=== PATIENT | female | born 1950 | race Caucasian/White ===

== ENCOUNTER → 2021-02-11 | Outpatient (REF) | payer MEDICARE, MEDICAID, SELFPAY ==
[2021-02-11 08:43] LABS: Cholesterol 178 mg/dL (200); High Density Lipoprotein 60 mg/dL; Triglycerides 54 mg/dL; Very Low Density Lipoprotein 11 mg/dL (5-40)
== END ==
LOC: OLS.SWAL
PROVIDERS: Visit Provider Internal Medicine
DX: E78.00 Pure hypercholesterolemia, unspecified (principal)
CPT/HCPCS: 36415; 80061

== ENCOUNTER → 2021-04-20 | Outpatient (REF) | payer MEDICARE, MEDICAID, SELFPAY ==
[2021-04-20 09:33] LABS: AST(SGOT) 13 U/L (15-37); Alanine Aminotransfer ALT/SGPT 15 U/L (13-56); Albumin, Serum 2.9 g/dL (3.2-5.0); Alkaline Phosphatase 67 U/L (45-117); Bilirubin, Direct < 0.05 mg/dL (0.00-0.30); Cholesterol 139 mg/dL (200); Globulin 2.9 g/dL (2.2-4.2); High Density Lipoprotein 54 mg/dL; Protein, Total 5.8 g/dL (6.4-8.2); Triglycerides 91 mg/dL; Very Low Density Lipoprotein 18 mg/dL (5-40)
== END | disposition home or self-care (01) ==
LOC: OLS.SWAL 04:00
PROVIDERS: Referring Provider Internal Medicine; Visit Provider Internal Medicine
DX: E78.5 Hyperlipidemia, unspecified (principal)
CPT/HCPCS: 36415; 80061; 80076

== ENCOUNTER → 2021-07-29 | Outpatient (REF) | payer MEDICARE, MEDICAID, SELFPAY ==
[2021-07-29 08:18] LABS: Absolute Lymphocyte Count 3.13 X10^3/uL (0.83-4.51); Absolute Neutrophil Count 2.1 X10^3/uL (2.0-7.7); Basophil# 0.05 X10^3/uL; Basophil% 0.8 % (0-1); Eosinophil# 0.35 X10^3/uL; Eosinophils% 5.5 % (0-5); Hematocrit 35.8 % (37-47); Hemoglobin 11.1 g/dL (12.0-15.0); Lymphocyte # 3.13 X10^3/ul (0.83-4.51); Lymphocyte % 49.6 % (19-41); Mean Corpuscular Hgb 31.7 pg (27.0-32.0); Mean Corpuscular Volume 102.3 fL (81-99); Mean Platelet Vol. 9.8 fl (6.2-12.0); Monocyte# 0.69 X10^3/uL; Monocyte% 10.9 % (0-10); NRBC Flagged by Analyzer 0 % (0-5); Neutrophil # 2.07 X10^3/uL (2.7-7.7); Neutrophil % 32.9 % (47-70); Platelet Count 261 K/mm3 (150-450); RBC Distribution Width CV 11.7 % (11.6-14.6); RBC Distribution Width SD 44.4 fl (35.1-43.9); White Blood Count 6.3 K/mm3 (4.4-11.0)
[2021-07-29 08:27] LABS: Anion Gap 3 (5-15); BUN 5 mg/dL (7-18); BUN/Creat Ratio 6.5 RATIO (10-20); Calcium,Total 8.6 mg/dL (8.5-10.1); Chloride 107 mmol/L (98-107); Creatinine, Serum 0.77 mg/dL (0.55-1.02); EST Glomerular Filtration Rate 79 mL/min (>60); Est Glom Filt Rate - Afr Amer 96 mL/min (>60); Glucose 78 mg/dL (74-106); Potassium 4.1 mmol/L (3.5-5.1); Sodium Level 143 mmol/L (136-145)
== END | disposition home or self-care (01) ==
LOC: OLS.SWAL 05:00
PROVIDERS: Visit Provider Internal Medicine
DX: G30.9 Alzheimer's disease, unspecified (principal); E55.9 Vitamin D deficiency, unspecified; E78.00 Pure hypercholesterolemia, unspecified
CPT/HCPCS: 36415; 80048; 83036; 85025

== ENCOUNTER → 2021-10-05 | Outpatient (REF) | payer MEDICARE, MEDICAID, SELFPAY ==
[2021-10-05 07:30] LABS: Bacteria 0 SEEN /hpf (None Seen); Mucous, Urine 0 SEEN /hpf (<or=2+)
[2021-10-05 08:27] LABS: Color, Urine Yellow (Yellow); Glucose, Dipstick Normal (Normal); Ketone-Dipstick 5 mg/dl (Negative); Leukocyte Esterase-Dipstick 500 /ul (Negative); Nitrite-Dipstick Negative (Negative); Occult Blood-Urine 10 /ul (Negative); Protein-Dipstick 30 mg/dl (Negative); Urine Bilirubin Dipstick Negative (Negative); Urine Clarity Sl Cldy (Clear); Urine Urobilinogen Normal (Normal)
[2021-10-05 08:29] LABS: Calcium Oxalate Crystals Ur 2+ /hpf (<or=2+); Red Blood Cells-Urine 0-5 SEEN /hpf (0-5); Squamous Epithelial Cells - UA 0-5 SEEN /hpf (5-10); White Blood Cells 25-50 SEEN /hpf (0-5)
== END | disposition home or self-care (01) ==
LOC: OLS.SWAL 05:00
PROVIDERS: Visit Provider Internal Medicine
DX: N39.0 Urinary tract infection, site not specified (principal)
CPT/HCPCS: 81001; 87086; 87088

== ENCOUNTER 2021-10-07 18:46 | Emergency (ER) | payer MEDICARE, MEDICAID, SELFPAY ==
[2021-10-07 18:47] VITALS: BP 107/64; PULSE 73; RESP 15; TEMP 36.8; O2SAT 93; BMI 21.2
[2021-10-07 18:51] VITALS: O2SAT 93
--- NOTE | 2021-10-07 19:12 | CT_ITS ---
EXAMINATION : Head CT w/out contrast HISTORY : fall COMPARISON : None. TECHNIQUE : Multiple contiguous axial images were obtained from the skull base to the vertex without intravenous contrast. A radiation dose optimization technique was used for this scan. FINDINGS : There is no evidence for acute intracranial hemorrhage, mass effect, or midline shift. There is no extra-axial fluid collection. There are periventricular white matter changes consistent with chronic microvascular ischemic disease. There is sulcal widening and ventricular enlargement consistent with cerebral atrophy. There is normal coleman-white differentiation, without CT evidence of acute ischemia or infarct. The skull base and calvarium are unremarkable. The orbits are unremarkable. The paranasal sinuses are clear. The mastoid air cells are well-aerated. The soft tissues are unremarkable. CT/Brain/Head without Contrast IMPRESSION: No acute intracranial abnormality. Chronic involutional and ischemic changes of the brain. Electronically Signed: Jackson Garcia MD at 19:58 EDT ,
--- NOTE | 2021-10-07 19:12 | CT_ITS ---
INDICATION: fall EXAMINATION: CT Spine Cervical W/O Contrast Injection TECHNIQUE: Helically acquired images were obtained of the cervical spine. 2D reformatted images were reviewed. A radiation dose optimization technique was used for this scan. IV Contrast dosage and agent: None. COMPARISON: None. FINDINGS: VERTEBRAE: No fracture or traumatic subluxation. No discrete lytic or blastic abnormality. Normal alignment. Normal craniocervical junction and cervicothoracic junction. DISCS and SPINAL CANAL: Moderate multilevel degenerative disc disease and spondylosis. No critical stenosis. NECK SOFT TISSUES: No prevertebral soft tissue swelling. There is no cervical adenopathy. LUNG APICES: Clear. CT/Spine Cervical without Contras IMPRESSION: No evidence of acute cervical spinal fracture or spondylolisthesis. Moderate multilevel degenerative disc disease and spondylosis. Electronically Signed: Jackson Garcia MD at 19:58 EDT ,
--- NOTE | 2021-10-07 19:13 | EKG12_ITS ---
Test Reason : DYSRHYTHMIA Blood Pressure : / mmHG Vent. Rate : 070 BPM Atrial Rate : 070 BPM P-R Int : 118 ms QRS Dur : 074 ms QT Int : 418 ms P-R-T Axes : 048 -06 039 degrees QTc Int : 451 ms Normal sinus rhythm Nonspecific T wave abnormality Abnormal ECG Confirmed by SPRING PANDA, RIKY ([id number]), editor house organ RON OLIVEROS ([id number]) on 10/08/2021 2:22:00 PM Referred By: KAEL Confirmed By:RIKY LONDONO MD
--- NOTE | 2021-10-07 19:16 | EX.ED.DYSGE1 ---
HPI History of Present Illness Chief Complaint: Fall Informant: patient and EMS Onset/Context/Timing Onset: Today Narrative Narrative: Patient brought in via EMS after a fall at the F. She was found lying on the floor, unwitnessed fall. She is a history of Alzheimer's. They state that she is not quite as alert as normal. She has had multiple falls recently. At this time patient is able to tell me that she fell. She does not not remember why she fell. She is complaining of head, neck, left hip pain. [facility] Medical History Alzheimer's dementia Anxiety Asthma High cholesterol Allergy/AdvReac Type Severity Reaction Status Date / Time codeine Allergy Upset Verified 10/07/21 18:50 Stomach Social History Smoking Status: Never smoker ROS ROS ED ROS Narrative Review of systems limited by history of dementia. Patient does report pain in her head, neck, left hip. Review of Systems ROS Unobtainable: due to mental status EXAM Physical Exam Const Vital Signs: 10/07/21 18:47 10/07/21 18:51 Temperature 98.3 F Temperature Source Temporal Pulse Rate 73 Respiratory Rate 15 Respiratory Effort Normal Non-Labored Respiratory Depth Normal Respiratory Pattern Normal Blood Pressure 107/64 Blood Pressure Mean 78 Pulse Ox 93 93 Oxygen Delivery Method Room Air Room Air Positive well nourished and well developed General Appearance ED: well developed HEENT Reports moist mucous membranes HEENT Narrative: Old appearing ecchymosis to the left forehead. Eyes EOMs intact bilaterally Neck no lymphadenopathy Chest Wall inspection of chest normal and palpation of chest normal Resp normal respiratory effort and clear to auscultation bilaterally Cardio regular rate and regular rhythm GI normal to inspection, nondistended, normoactive bowel sounds and non-tender Palpation: soft Extremity Extremity Narrative: Equal leg lengths bilaterally. Ecchymosis noted over the left anterior thigh. No bony tenderness on palpation. Neuro Neuro Narrative: ANO x2. History of Alzheimer's. Skin Skin Narrative: Ecchymoses as above. 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 EKG obtained. CT scan of the head and C-spine ordered. Portable chest x-ray as well as pelvis and left hip x-rays obtained. Lab Data Attestation: I reviewed the patient's lab results. Labs: Laboratory Results - last 24 hr 10/07/21 10/07/21 10/07/21 19:30 19:30 20:08 WBC 8.1 RBC 3.47 L Hgb 11.5 L Hct 35.6 L MCV 102.6 H MCH 33.1 H MCHC 32.3 RDW Std Deviation 48.8 H RDW Coeff of Krystal 12.9 Plt Count 219 MPV 9.8 Immature Gran % (Auto) 0.200 Neut % (Auto) 63.2 Lymph % (Auto) 22.8 Garrard % (Auto) 10.0 Eos % (Auto) 3.4 Baso % (Auto) 0.4 Absolute Neuts (auto) 5.1 Absolute Lymphs (auto) 1.85 Nucleated RBC % 0 Sodium 140 Potassium 3.6 Chloride 104 Carbon Dioxide 29.0 Anion Gap 7 BUN 8 Creatinine 0.85 Estim Creat Clear Calc 44.24 Est GFR (MDRD) Af Amer 86 Est GFR (MDRD) Non-Af 71 BUN/Creatinine Ratio 9.5 L Glucose 128 H Calcium 8.6 Urine Color Yellow Urine Clarity Clear Urine pH 6.0 Ur Specific Reading 1.010 Urine Protein Negative Urine Glucose (UA) Normal Urine Ketones Negative Urine Occult Blood Negative Urine Nitrite Negative Urine Bilirubin Negative Urine Urobilinogen Normal Ur Leukocyte Esterase Negative Urine RBC 0 SEEN Urine WBC 0 SEEN Ur Squamous Epith Cells 0 SEEN Urine Bacteria 0 SEEN Urine Mucus 0 SEEN Radiography Diagnostic Testing: Clinical Impression(s) from Imaging Studies Brain CT 10/07/21 19:12 IMPRESSION: No acute intracranial abnormality. Chronic involutional and ischemic changes of the brain. Electronically Signed: Jackson Garcia MD at 19:58 EDT , Cervical Spine CT 10/07/21 19:12 IMPRESSION: No evidence of acute cervical spinal fracture or spondylolisthesis. Moderate multilevel degenerative disc disease and spondylosis. Electronically Signed: Jackson Garcia MD at 19:58 EDT , Chest X-Ray 10/07/21 19:44 IMPRESSION: No acute radiographic abnormalities. Electronically Signed: Jackson Garcia MD at 20:21 EDT , Hip/Pelvis X-Ray 10/07/21 19:44 IMPRESSION: No acute findings. Electronically Signed: Ludwin Felipe MD at 20:01 EDT , EKG Initial EKG: Attestation: I personally reviewed and interpreted this EKG as follows: Interpretation: Sinus Rhythm (Sinus at 70 with nonspecific T wave flattening. No acute ST change.) Treatment and Re-Evaluation Narrative: Patient's lab work is unremarkable. Urinalysis obtained via straight cath shows no acute infection. CT scan of the head shows no acute findings. CT of the C-spine shows no fracture. C-collar is removed. Chest x-ray per my interpretation reveals no acute findings. X-ray of the pelvis and hip reveals no obvious fracture. Radiology interpretation is reviewed on both images and concurs. At this time I have no significant findings to explain the patient's reported increased falls. Nursing staff spoke with Dewey Perez. This may just be a progression of her Alzheimer's. At this time I have nothing to admit her to the hospital for and she will be discharged back to [facility]. Discharge Plan Triage Chief Complaint: Fall ED Provider: Laura Malave Dx/Rx/DC Orders Clinical Impression: Fall Instructions: ED Fall with Uncertain Cause Primary Care Provider: Claudia Anderson Referrals: Claudia Anderson MD [Primary Care Provider] - 3-5 Days Disposition Disposition: Care Home Facility
[2021-10-07 19:38] LABS: Absolute Lymphocyte Count 1.85 X10^3/uL (0.83-4.51); Absolute Neutrophil Count 5.1 X10^3/uL (2.0-7.7); Basophil# 0.03 X10^3/uL; Basophil% 0.4 % (0-1); Eosinophil# 0.28 X10^3/uL; Eosinophils% 3.4 % (0-5); Hematocrit 35.6 % (37-47); Hemoglobin 11.5 g/dL (12.0-15.0); Lymphocyte # 1.85 X10^3/ul (0.83-4.51); Lymphocyte % 22.8 % (19-41); Mean Corp Hgb Conc 32.3 g/dL (32-36); Mean Corpuscular Hgb 33.1 pg (27.0-32.0); Mean Corpuscular Volume 102.6 fL (81-99); Mean Platelet Vol. 9.8 fl (6.2-12.0); Monocyte# 0.81 X10^3/uL; NRBC Flagged by Analyzer 0 % (0-5); Neutrophil # 5.13 X10^3/uL (2.7-7.7); Neutrophil % 63.2 % (47-70); Platelet Count 219 K/mm3 (150-450); RBC Distribution Width CV 12.9 % (11.6-14.6); RBC Distribution Width SD 48.8 fl (35.1-43.9); Red Blood Count 3.47 M/mm3 (4.2-5.4); White Blood Count 8.1 K/mm3 (4.4-11.0)
--- NOTE | 2021-10-07 19:44 | RAD_ITS ---
INDICATION: fall EXAMINATION/TECHNIQUE: X-RAY - XR Chest 1 View COMPARISON: None. FINDINGS: The lungs are clear. The cardiomediastinal silhouette is unremarkable. No pleural effusion or pneumothorax. Degenerative changes of the thoracic spine. RAD/Chest 1 View (Portable) IMPRESSION: No acute radiographic abnormalities. Electronically Signed: Jackson Garcia MD at 20:21 EDT ,
--- NOTE | 2021-10-07 19:44 | RAD_ITS ---
STUDY: X-RAY - PELVIS AND LEFT HIP REASON FOR EXAM: Female, 71 years old. Technologist Notes PT WAS FOUND LAYING ON THE FLOOR. UNKNOWN FOR HOW LONG. PT C/O NECK AND LEFT HIP PAIN. ECF STATES PT IS MORE LETHARGIC THAN NORMAL AND HAS HAD MULTPLE FALLS OVER THE LAST FEW DAYS fall TECHNIQUE: XR Hip Unilateral with Pelvis when performed; 2-3 Views COMPARISON: None. FINDINGS: There is a non-specific bowel gas pattern. Normal visualized soft tissue structures. There are degenerative changes of the lumbar spine. Normal bilateral iliac wings, sacroiliac joints and visualized sacrum. Normal bilateral superior and inferior pubic rami. Normal pubic symphysis. Normal bilateral ischial tuberosities. Normal visualized femoral head. Normal acetabulum. Normal hip joint. RAD/HIP, UNI W/ Pelvis 2-3 Views IMPRESSION: No acute findings. Electronically Signed: Ludwin Felipe MD at 20:01 EDT ,
[2021-10-07 19:50] LABS: BUN 8 mg/dL (7-18); BUN/Creat Ratio 9.5 RATIO (10-20); Calcium,Total 8.6 mg/dL (8.5-10.1); Chloride 104 mmol/L (98-107); Creatinine, Serum 0.85 mg/dL (0.55-1.02); EST Glomerular Filtration Rate 71 mL/min (>60); Est Glom Filt Rate - Afr Amer 86 mL/min (>60); Estimated Creatinine Clearance 44.24 ml/min; Glucose 128 mg/dL (74-106); Potassium 3.6 mmol/L (3.5-5.1); Sodium Level 140 mmol/L (136-145)
[2021-10-07 19:51] LABS: Anion Gap 7 (5-15)
[2021-10-07 20:15] LABS: Bacteria 0 SEEN /hpf (None Seen); Mucous, Urine 0 SEEN /hpf (<or=2+); Red Blood Cells-Urine 0 SEEN /hpf (0-5); Squamous Epithelial Cells - UA 0 SEEN /hpf (5-10); White Blood Cells 0 SEEN /hpf (0-5)
[2021-10-07 20:43] LABS: Color, Urine Yellow (Yellow); Glucose, Dipstick Normal (Normal); Ketone-Dipstick Negative (Negative); Leukocyte Esterase-Dipstick Negative /ul (Negative); Nitrite-Dipstick Negative (Negative); Occult Blood-Urine Negative /ul (Negative); Protein-Dipstick Negative (Negative); Urine Bilirubin Dipstick Negative (Negative); Urine Clarity Clear (Clear); Urine Urobilinogen Normal (Normal)
[2021-10-07 21:54] VITALS: BP 127/67; PULSE 78; RESP 18; O2SAT 98
--- NOTE | 2021-10-07 22:09 | ED.RN ---
NURSE TO NURSE GIVEN TO RAI AT [facility]
[2021-10-07 22:11] VITALS: BP 119/71; PULSE 81; RESP 14; O2SAT 97
[2021-10-07 23:16] VITALS: BP 124/71; PULSE 78; RESP 16; O2SAT 98
[2021-10-12 20:01] LABS: Lamotrigine (Lamictal) Level 3.7 ug/mL (2.0-20.0)
== END 2021-10-08 00:08 | disposition skilled nursing facility (03) ==
PROVIDERS: Emergency Provider Emergency Medicine; PCP Internal Medicine; Visit Provider Emergency Medicine
DX: G30.9 Alzheimer's disease, unspecified (principal); E78.00 Pure hypercholesterolemia, unspecified; R51.9 Headache, unspecified; M25.552 Pain in left hip; M54.2 Cervicalgia; W19.XXXA Unspecified fall, initial encounter; Y92.129 Unspecified place in nursing home as the place of occurrence of the external cause
CPT/HCPCS: 70450; 71045; 72125; 73502; 80048; 81001; 82542; 85025; 93005; 99285; A4216

== ENCOUNTER 2021-10-10 01:03 | Emergency (ER) | payer MEDICARE, MEDICAID, SELFPAY ==
[2021-10-10 01:04] VITALS: BP 95/66; PULSE 61; RESP 12; TEMP 36.2; O2SAT 96; BMI 19.0
[2021-10-10 01:13] VITALS: O2SAT 98
--- NOTE | 2021-10-10 02:16 | RAD_ITS ---
INDICATION: pain EXAMINATION/TECHNIQUE: X-RAY - RIGHT XR Hip Unilateral with Pelvis when performed; 2-3 Views 3 VIEWS COMPARISON: 10/07/2021. FINDINGS: SOFT TISSUES: No soft tissue swelling or gas. No radiopaque foreign body. BONES/JOINTS: No acute fracture or subluxation.. Normal alignment. Degenerative changes visualized spine. Preservation of the joint space.. No sclerotic or destructive changes observed. RAD/HIP, UNI W/ Pelvis 2-3 Views IMPRESSION: No acute fracture or dislocation. Electronically Signed: Jeramie Carter MD at 3:18 EDT ,
--- NOTE | 2021-10-10 02:30 | CT_ITS ---
EXAM: CT HEAD WITHOUT INTRAVENOUS CONTRAST CLINICAL INDICATION: injury TECHNIQUE: Multiple axial images were obtained of the head without intravenous contrast. This CT exam was performed using one or more of the following dose reduction techniques: automated exposure control, adjustment of the mA and/or kV according to patient size, and/or use of iterative reconstruction technique. This report was created using [employer] report generation technology. COMPARISON: 10/07/2021 FINDINGS: BRAIN AND EXTRA-AXIAL SPACES: Ventricular system and cortical sulci are mildly enlarged in size. There is stable hypoattenuation in the periventricular white matter. No intra- or extra-axial hemorrhage. No evidence of acute infarct. No intracranial mass or mass effect. There is preservation of the valera/white matter interface. Posterior fossa structures are unremarkable. Basal cisterns are patent. BONES/JOINTS: Unremarkable. No discrete lytic or blastic abnormalities. SINUSES: Unremarkable as visualized. Clear. MASTOID AIR CELLS: Unremarkable. Clear. ORBITS: Visualized globes, extraocular muscles, optic nerves and retrobulbar fat appear unremarkable. CT/Brain/Head without Contrast IMPRESSION: 1. No acute intracranial abnormality. There is been no change in the reference exam. 2. Stable underlying senescent changes small vessel ischemia. Electronically Signed: Kushal Medina MD at 2:47 EDT ,
--- NOTE | 2021-10-10 02:30 | CT_ITS ---
EXAM: CT CERVICAL SPINE WITHOUT INTRAVENOUS CONTRAST CLINICAL INDICATION: injury TECHNIQUE: Helically acquired images were obtained of the cervical spine without intravenous contrast. 2D reformatted images were reviewed. This CT exam was performed using one or more of the following dose reduction techniques: automated exposure control, adjustment of the mA and/or kV according to patient size, and/or use of iterative reconstruction technique. This report was created using [employer] report generation technology. COMPARISON: None. FINDINGS: VERTEBRAE: Unremarkable. No fracture. No traumatic subluxation. No discrete lytic or blastic abnormality. Normal alignment. Normal craniocervical junction and cervicothoracic junction. DISCS/SPINAL CANAL/NEURAL FORAMINA: There is left bony neural neural foraminal stenosis at Narrowing at C4-5 due to a degenerative disc bulge and bony hypertrophy. There is disc space narrowing at C4-5 C5-6. There is right bony neural foraminal narrowing at C5-6. SOFT TISSUES: Unremarkable. No prevertebral soft tissue swelling. LYMPH NODES: Unremarkable. No cervical adenopathy. LUNG APICES: Unremarkable as visualized. Clear. CT/Spine Cervical without Contras IMPRESSION: 1. There is left bony neural neural foraminal stenosis at Narrowing at C4-5 due to a degenerative disc bulge and bony hypertrophy. 2. No acute osseous abnormality of the cervical spine. There are degenerative changes with disc space narrowing and bony neural foraminal narrowing. Electronically Signed: Kushal Medina MD at 2:51 EDT ,
--- NOTE | 2021-10-10 02:50 | RAD_ITS ---
INDICATION: pain EXAMINATION/TECHNIQUE: X-RAY - XR Spine Thoracic 3 Views 3 VIEWS COMPARISON: None. FINDINGS: SOFT TISSUES: No soft tissue swelling or gas. No radiopaque foreign body. BONES/JOINTS: No acute fracture or subluxation.. Normal alignment. Preservation of the joint space.. No sclerotic or destructive changes observed. RAD/Thoracic Spine 3 Views IMPRESSION: No acute fracture or dislocation. Electronically Signed: Jeramie Carter MD at 3:20 EDT ,
--- NOTE | 2021-10-10 03:33 | EX.ED.DYSGE1 ---
HPI History of Present Illness Chief Complaint: Fall Narrative Narrative: Patient is a 71-year-old female with past medical history of dementia sent from the long-term secondary to fall. half-way states patient is at her baseline mental status but with the fall there is concern for underlying head trauma and therefore patient was sent in for evaluation. Patient her dementia as she cannot offer any further history [facility] Medical History Alzheimer's dementia Anxiety Asthma High cholesterol Allergy/AdvReac Type Severity Reaction Status Date / Time codeine Allergy Upset Verified 10/10/21 01:09 Stomach Social History Smoking Status: Never smoker ROS ROS ED ROS Narrative Please note review of systems may be unreliable secondary to patient's history of dementia Constitutional Constitutional ED: Denies chills or fever(s) ENT ENT ED: Denies sore throat Cardiovascular Cardiovascular: Denies chest pain Respiratory/Chest Respiratory/Chest: Denies cough or dyspnea Gastrointestinal Gastrointestinal: Denies abdominal pain, diarrhea, nausea or vomiting Genitourinary Genitourinary ED: Denies dysuria Musculoskeletal Musculoskeletal: Denies myalgias Integumentary Denies rash Neurologic Neurologic: Denies headache(s) Hematologic/Lymphatic Hematologic/Lymphatic: Denies easy bleeding or easy bruising EXAM Physical Exam Const Vital Signs: 10/10/21 01:04 10/10/21 01:13 Temperature 97.2 F L Temperature Source Temporal Pulse Rate 61 Respiratory Rate 12 Respiratory Effort Normal Non-Labored Respiratory Depth Normal Respiratory Pattern Normal Blood Pressure 95/66 Blood Pressure Mean 75 Pulse Ox 96 98 Oxygen Delivery Method Room Air Room Air Positive well nourished and well developed General Appearance ED: well developed HEENT HEENT Narrative: Patient has soft tissue swelling along the occipital portion of the scalp consistent with fall without acute laceration or signs of depressed or basilar skull fracture Eyes PERRL and EOMs intact bilaterally Neck supple Neck Narrative: No bony deformity or step-off of the cervical spine no midline pain on palpation Chest Wall palpation of chest normal Chest Narrative: No bony deformity or crepitance noted Resp normal respiratory effort and clear to auscultation bilaterally Cardio regular rate and regular rhythm GI normal to inspection, nondistended, normoactive bowel sounds, non-tender and non-distended Auscultation: normoactive bowel sounds Palpation: soft Back/Spine Back/Spine Narrative: No bony deformity or step-off of the thoracic or lumbar spine but there is upper thoracic pain with palpation noted Extremity normal to inspection Extremity Narrative: Pelvis is stable there is no shortening or external rotation of either lower extremity Neuro CN's II-XII intact bilaterally Neuro Narrative: Patient is at her baseline mental status consistent with her history of dementia without new or focal deficit Psych mental status grossly normal Skin no rashes or lesions noted MDM MDM MDM Narrative Medical decision making narrative: Patient presented to the ER at her baseline mental status with reported fall from long-term and signs of trauma to corroborate this. Therefore patient had CTs of her head and cervical spine. As she had pain on palpation of her upper back she also had a thoracic x-ray ordered. All imaging showed no signs of acute trauma. She has no need for sutures or saad as there is no obvious laceration present and therefore with negative imaging study she is otherwise safe to return to the long-term. Radiography Diagnostic Testing: Clinical Impression(s) from Imaging Studies Hip/Pelvis X-Ray 10/10/21 02:16 IMPRESSION: No acute fracture or dislocation. Electronically Signed: Jeramie Carter MD at 3:18 EDT , Brain CT 10/10/21 02:30 IMPRESSION: 1. No acute intracranial abnormality. There is been no change in the reference exam. 2. Stable underlying senescent changes small vessel ischemia. Electronically Signed: Ksuhal Medina MD at 2:47 EDT , Cervical Spine CT 10/10/21 02:30 IMPRESSION: 1. There is left bony neural neural foraminal stenosis at Narrowing at C4-5 due to a degenerative disc bulge and bony hypertrophy. 2. No acute osseous abnormality of the cervical spine. There are degenerative changes with disc space narrowing and bony neural foraminal narrowing. Electronically Signed: Kushal Medina MD at 2:51 EDT , Thoracic Spine X-Ray 10/10/21 02:50 IMPRESSION: No acute fracture or dislocation. Electronically Signed: Jeramie Carter MD at 3:20 EDT , Thoracic spine x-ray as interpreted by the emergency medicine physician reveals no acute fracture or spondylolisthesis Discharge Plan Triage Chief Complaint: Fall ED Provider: Raoul Da Silva Dx/Rx/DC Orders Clinical Impression: Closed head injury, Accidental fall, Dementia Instructions: ED Head Injury (Adult) Primary Care Provider: Claudia Anderson Referrals: Claudia Anderson MD [Primary Care Provider] - Disposition Disposition: Assisted Living Discharge Location: [facility] Discharge Date/Time: 10/10/21 06:37
--- NOTE | 2021-10-10 03:55 | ED.RN ---
report called to aisha at [facility].
[2021-10-10 06:36] VITALS: BP 98/60; PULSE 68; RESP 16; O2SAT 98
== END 2021-10-10 06:37 | disposition home or self-care (01) ==
PROVIDERS: Emergency Provider Emergency Medicine; PCP Internal Medicine; Visit Provider Emergency Medicine
DX: S09.90XA Unspecified injury of head, initial encounter (principal); F02.80 Dementia in other diseases classified elsewhere, unspecified severity, without behavioral disturbance, psychotic disturbance, mood disturbance, and anxiety; E78.00 Pure hypercholesterolemia, unspecified; W19.XXXA Unspecified fall, initial encounter
CPT/HCPCS: 70450; 72072; 72125; 73502; 99284

== ENCOUNTER 2021-10-14 04:00 | Outpatient (REF) | payer SELFPAY ==
[2021-10-14 08:49] LABS: Absolute Lymphocyte Count 2.95 X10^3/uL (0.83-4.51); Absolute Neutrophil Count 3.1 X10^3/uL (2.0-7.7); Basophil# 0.04 X10^3/uL; Basophil% 0.6 % (0-1); Eosinophil# 0.27 X10^3/uL; Eosinophils% 3.8 % (0-5); Hematocrit 38.9 % (37-47); Hemoglobin 12.3 g/dL (12.0-15.0); Lymphocyte # 2.95 X10^3/ul (0.83-4.51); Lymphocyte % 41.8 % (19-41); Mean Corp Hgb Conc 31.6 g/dL (32-36); Mean Corpuscular Volume 104.3 fL (81-99); Monocyte# 0.62 X10^3/uL; Monocyte% 8.8 % (0-10); NRBC Flagged by Analyzer 0 % (0-5); Neutrophil # 3.14 X10^3/uL (2.7-7.7); Neutrophil % 44.6 % (47-70); POSITIVE COUNT YES; RBC Distribution Width CV 12.8 % (11.6-14.6); RBC Distribution Width SD 48.7 fl (35.1-43.9); Red Blood Count 3.73 M/mm3 (4.2-5.4); White Blood Count 7.1 K/mm3 (4.4-11.0)
[2021-10-14 09:02] LABS: Anion Gap 2 (5-15); BUN 6 mg/dL (7-18); Calcium,Total 9.1 mg/dL (8.5-10.1); Chloride 104 mmol/L (98-107); Creatinine, Serum 0.66 mg/dL (0.55-1.02); EST Glomerular Filtration Rate 93 mL/min (>60); Est Glom Filt Rate - Afr Amer 113 mL/min (>60); Glucose 75 mg/dL (74-106); Potassium 3.8 mmol/L (3.5-5.1); Sodium Level 139 mmol/L (136-145)
[2021-10-14 09:37] LABS: Differential Indicated SCAN CRITERIA MET
[2021-10-14 09:38] LABS: Platelet Estimate ADEQUATE (ADEQ)
== END 2021-10-14 23:59 | disposition home or self-care (01) ==
LOC: OLS.SW300 04:00
PROVIDERS: PCP Internal Medicine; Visit Provider Internal Medicine
DX: R68.89 Other general symptoms and signs (principal); M54.50 Low back pain, unspecified; Z13.228 Encounter for screening for other metabolic disorders
CPT/HCPCS: 36415; 80048; 85025

== ENCOUNTER → 2021-10-28 | Outpatient (REF) | payer MEDICARE, MEDICAID, SELFPAY ==
[2021-10-28 09:12] LABS: Absolute Lymphocyte Count 2.54 X10^3/uL (0.83-4.51); Absolute Neutrophil Count 3.1 X10^3/uL (2.0-7.7); Basophil# 0.05 X10^3/uL; Basophil% 0.7 % (0-1); Eosinophil# 0.46 X10^3/uL; Eosinophils% 6.6 % (0-5); Hematocrit 37.2 % (37-47); Hemoglobin 11.4 g/dL (12.0-15.0); Lymphocyte # 2.54 X10^3/ul (0.83-4.51); Lymphocyte % 36.7 % (19-41); Mean Corp Hgb Conc 30.6 g/dL (32-36); Mean Corpuscular Hgb 32.4 pg (27.0-32.0); Mean Corpuscular Volume 105.7 fL (81-99); Mean Platelet Vol. 10.1 fl (6.2-12.0); Monocyte# 0.78 X10^3/uL; Monocyte% 11.3 % (0-10); NRBC Flagged by Analyzer 0 % (0-5); Neutrophil # 3.07 X10^3/uL (2.7-7.7); Neutrophil % 44.3 % (47-70); Platelet Count 307 K/mm3 (150-450); RBC Distribution Width CV 13.6 % (11.6-14.6); RBC Distribution Width SD 51.7 fl (35.1-43.9); Red Blood Count 3.52 M/mm3 (4.2-5.4); White Blood Count 6.9 K/mm3 (4.4-11.0)
[2021-10-28 09:33] LABS: Vitamin D,25 Hydroxy 40.3 ng/mL
[2021-10-28 09:40] LABS: Anion Gap 5 (5-15); BUN 11 mg/dL (7-18); BUN/Creat Ratio 15.8 RATIO (10-20); Calcium,Total 8.7 mg/dL (8.5-10.1); Chloride 106 mmol/L (98-107); EST Glomerular Filtration Rate 88 mL/min (>60); Est Glom Filt Rate - Afr Amer 107 mL/min (>60); Glucose 82 mg/dL (74-106); Potassium 4.3 mmol/L (3.5-5.1); Sodium Level 141 mmol/L (136-145)
== END ==
LOC: OLS.SW300 04:00
PROVIDERS: PCP Internal Medicine; Visit Provider Internal Medicine
DX: R68.89 Other general symptoms and signs (principal); E55.9 Vitamin D deficiency, unspecified; Z13.228 Encounter for screening for other metabolic disorders; Z79.899 Other long term (current) drug therapy
CPT/HCPCS: 36415; 80048; 82306; 85025

== ENCOUNTER → 2021-11-04 | Outpatient (REF) | payer MEDICARE, MEDICAID, SELFPAY ==
[2021-11-04 09:18] LABS: Absolute Lymphocyte Count 2.09 X10^3/uL (0.83-4.51); Absolute Neutrophil Count 4.1 X10^3/uL (2.0-7.7); Basophil# 0.06 X10^3/uL; Basophil% 0.8 % (0-1); Eosinophil# 0.68 X10^3/uL; Eosinophils% 9.1 % (0-5); Hematocrit 37.4 % (37-47); Hemoglobin 11.7 g/dL (12.0-15.0); Lymphocyte # 2.09 X10^3/ul (0.83-4.51); Mean Corp Hgb Conc 31.3 g/dL (32-36); Mean Corpuscular Hgb 32.8 pg (27.0-32.0); Mean Corpuscular Volume 104.8 fL (81-99); Mean Platelet Vol. 10.1 fl (6.2-12.0); Monocyte# 0.51 X10^3/uL; Monocyte% 6.8 % (0-10); NRBC Flagged by Analyzer 0 % (0-5); Platelet Count 294 K/mm3 (150-450); RBC Distribution Width CV 13.6 % (11.6-14.6); RBC Distribution Width SD 52.9 fl (35.1-43.9); Red Blood Count 3.57 M/mm3 (4.2-5.4); White Blood Count 7.5 K/mm3 (4.4-11.0)
[2021-11-04 09:34] LABS: Anion Gap 7 (5-15); BUN 9 mg/dL (7-18); BUN/Creat Ratio 13.3 RATIO (10-20); Calcium,Total 8.7 mg/dL (8.5-10.1); Chloride 106 mmol/L (98-107); Creatinine, Serum 0.68 mg/dL (0.55-1.02); EST Glomerular Filtration Rate 91 mL/min (>60); Est Glom Filt Rate - Afr Amer 110 mL/min (>60); Glucose 123 mg/dL (74-106); Potassium 3.9 mmol/L (3.5-5.1); Sodium Level 142 mmol/L (136-145)
== END ==
LOC: OLS.SW300 05:00
PROVIDERS: PCP Internal Medicine; Visit Provider Internal Medicine
DX: F03.90 Unspecified dementia, unspecified severity, without behavioral disturbance, psychotic disturbance, mood disturbance, and anxiety (principal)
CPT/HCPCS: 36415; 80048; 85025

== ENCOUNTER → 2021-11-11 | Outpatient (REF) | payer MEDICARE, MEDICAID, SELFPAY ==
[2021-11-11 09:10] LABS: Absolute Neutrophil Count 2.5 X10^3/uL (2.0-7.7); Basophil# 0.06 X10^3/uL; Eosinophil# 0.54 X10^3/uL; Eosinophils% 8.8 % (0-5); Hematocrit 35.3 % (37-47); Hemoglobin 11.4 g/dL (12.0-15.0); Lymphocyte % 37.4 % (19-41); Mean Corp Hgb Conc 32.3 g/dL (32-36); Mean Corpuscular Hgb 32.9 pg (27.0-32.0); Mean Platelet Vol. 10.1 fl (6.2-12.0); Monocyte% 11.4 % (0-10); NRBC Flagged by Analyzer 0 % (0-5); Neutrophil # 2.53 X10^3/uL (2.7-7.7); Neutrophil % 41.1 % (47-70); Platelet Count 265 K/mm3 (150-450); RBC Distribution Width CV 13.3 % (11.6-14.6); RBC Distribution Width SD 50.2 fl (35.1-43.9); Red Blood Count 3.46 M/mm3 (4.2-5.4); White Blood Count 6.2 K/mm3 (4.4-11.0)
[2021-11-11 09:27] LABS: Anion Gap 4 (5-15); BUN 4 mg/dL (7-18); Calcium,Total 8.7 mg/dL (8.5-10.1); Chloride 106 mmol/L (98-107); EST Glomerular Filtration Rate 75 mL/min (>60); Est Glom Filt Rate - Afr Amer 91 mL/min (>60); Glucose 83 mg/dL (74-106); Sodium Level 141 mmol/L (136-145)
== END ==
LOC: OLS.SWAL 05:00
PROVIDERS: PCP Internal Medicine; Visit Provider Internal Medicine
DX: R68.89 Other general symptoms and signs (principal); Z79.899 Other long term (current) drug therapy; Z13.228 Encounter for screening for other metabolic disorders
CPT/HCPCS: 36415; 80048; 85025

== ENCOUNTER → 2021-11-18 | Outpatient (REF) | payer MEDICARE, MEDICAID, SELFPAY ==
[2021-11-18 08:06] LABS: Absolute Lymphocyte Count 2.55 X10^3/uL (0.83-4.51); Absolute Neutrophil Count 2.3 X10^3/uL (2.0-7.7); Basophil# 0.06 X10^3/uL; Eosinophil# 0.39 X10^3/uL; Eosinophils% 6.6 % (0-5); Hematocrit 34.3 % (37-47); Hemoglobin 10.9 g/dL (12.0-15.0); Lymphocyte # 2.55 X10^3/ul (0.83-4.51); Lymphocyte % 43.2 % (19-41); Mean Corp Hgb Conc 31.8 g/dL (32-36); Mean Corpuscular Hgb 32.8 pg (27.0-32.0); Mean Corpuscular Volume 103.3 fL (81-99); Mean Platelet Vol. 10.1 fl (6.2-12.0); Monocyte# 0.64 X10^3/uL; Monocyte% 10.8 % (0-10); NRBC Flagged by Analyzer 0 % (0-5); Neutrophil # 2.25 X10^3/uL (2.7-7.7); Neutrophil % 38.2 % (47-70); Platelet Count 281 K/mm3 (150-450); RBC Distribution Width SD 49.1 fl (35.1-43.9); Red Blood Count 3.32 M/mm3 (4.2-5.4); White Blood Count 5.9 K/mm3 (4.4-11.0)
[2021-11-18 08:20] LABS: Anion Gap 2 (5-15); BUN 7 mg/dL (7-18); BUN/Creat Ratio 10.9 RATIO (10-20); Calcium,Total 8.6 mg/dL (8.5-10.1); Chloride 108 mmol/L (98-107); Creatinine, Serum 0.64 mg/dL (0.55-1.02); EST Glomerular Filtration Rate 97 mL/min (>60); Est Glom Filt Rate - Afr Amer 117 mL/min (>60); Glucose 75 mg/dL (74-106); Potassium 3.6 mmol/L (3.5-5.1); Sodium Level 142 mmol/L (136-145)
== END ==
LOC: OLS.SWAL 05:00
PROVIDERS: PCP Internal Medicine; Visit Provider Internal Medicine
DX: E78.5 Hyperlipidemia, unspecified (principal)
CPT/HCPCS: 36415; 80048; 85025

== ENCOUNTER 2021-11-21 22:28 | Emergency (ER) | payer MEDICARE, MEDICAID, SELFPAY ==
[2021-11-21 22:29] VITALS: BP 102/51; PULSE 57; RESP 16; TEMP 36.1; O2SAT 96; BMI 22.1
--- NOTE | 2021-11-21 22:42 | RAD_ITS ---
EXAM: XR PELVIS, 1 OR 2 VIEWS CLINICAL INDICATION: fall TECHNIQUE: Frontal view of the pelvis. This report was created using [employer] report generation technology. COMPARISON: None. FINDINGS: BONES/JOINTS: Unremarkable. No displaced fracture. No destructive or sclerotic lesions. Note that overlapping bowel shadows may however obscure fine detail. Sacroiliac joints are unremarkable. No widening of the pubic symphysis. The articular structures are unremarkable. SOFT TISSUES: Unremarkable. No soft tissue swelling or gas. RAD/Pelvis 1 or 2 Views IMPRESSION: No evidence of displaced pelvic fracture. Electronically Signed: Paul Long MD at 23:46 EDT ,
[2021-11-21] MEDS: Ondansetron ODT 4 MG Tablet PO (22:56)
[2021-11-21] MEDS: Morphine 4 MG/ML Syringe IM (22:56)
--- NOTE | 2021-11-21 23:10 | CT_ITS ---
EXAM: CT CERVICAL SPINE WITHOUT INTRAVENOUS CONTRAST CLINICAL INDICATION: Neck pain after a fall. TECHNIQUE: Helically acquired images were obtained of the cervical spine without intravenous contrast. 2D reformatted images were reviewed. This CT exam was performed using one or more of the following dose reduction techniques: automated exposure control, adjustment of the mA and/or kV according to patient size, and/or use of iterative reconstruction technique. This report was created using [employer] report generation technology. RADIATION DOSE: CTDIvol = 14.43 mGy, DLP = 290.90 mGy-cm. COMPARISON: None. FINDINGS: VERTEBRAE: Moderate multilevel bilateral vertebral facet arthropathy. No fracture. No traumatic subluxation. No discrete lytic or blastic abnormality. Normal alignment. Normal craniocervical junction and cervicothoracic junction. DISCS/SPINAL CANAL/NEURAL FORAMINA: Moderate multilevel degenerative disc disease. No critical stenosis. SOFT TISSUES: Unremarkable. No prevertebral soft tissue swelling. LYMPH NODES: Unremarkable. No cervical adenopathy. LUNG APICES: Unremarkable as visualized. Clear. CT/Spine Cervical without Contras IMPRESSION: Moderate degenerative changes. No acute fractures or subluxations. Electronically Signed: Paul Long MD at 23:48 EDT ,
--- NOTE | 2021-11-21 23:10 | CT_ITS ---
EXAM: CT HEAD WITHOUT INTRAVENOUS CONTRAST CLINICAL INDICATION: fall TECHNIQUE: Multiple axial images were obtained of the head without intravenous contrast. This CT exam was performed using one or more of the following dose reduction techniques: automated exposure control, adjustment of the mA and/or kV according to patient size, and/or use of iterative reconstruction technique. This report was created using [employer] report generation technology. RADIATION DOSE: CTDIvol = 44.99 mGy, DLP = 745.49 mGy-cm. COMPARISON: None. FINDINGS: BRAIN AND EXTRA-AXIAL SPACES: Unremarkable. No intra- or extra-axial hemorrhage. No evidence of acute infarct. No intracranial mass or mass effect. There is preservation of the valera/white matter interface. Posterior fossa structures are unremarkable. Ventricles are appropriate for age. No hydrocephalus. Basal cisterns are patent. BONES/JOINTS: Unremarkable. No discrete lytic or blastic abnormalities. SINUSES: Unremarkable as visualized. Clear. MASTOID AIR CELLS: Unremarkable. Clear. ORBITS: Visualized globes, extraocular muscles, optic nerves and retrobulbar fat appear unremarkable. CT/Brain/Head without Contrast IMPRESSION: Negative head/brain CT without intravenous contrast. Electronically Signed: Paul Long MD at 23:38 EDT ,
--- NOTE | 2021-11-21 23:15 | RAD_ITS ---
EXAM: XR LUMBOSACRAL SPINE, 4 OR 5 VIEWS CLINICAL INDICATION: Back pain after a fall. TECHNIQUE: Frontal, lateral and bilateral oblique views of the lumbar spine. This report was created using [employer] report [employer] technology. COMPARISON: None. FINDINGS: VERTEBRAE: Moderate bilateral multilevel vertebral facet arthropathy. Preserved vertebral body height. No fracture. No spondylolisthesis. Preservation of the normal lumbar lordosis. DISC SPACES: Mild multilevel degenerative disc disease. GASTROINTESTINAL TRACT: Unremarkable as visualized. Included bowel gas pattern is non-obstructive. RAD/L/S Spine Min 4 Views IMPRESSION: Degenerative changes. No acute fractures or subluxations. Electronically Signed: Paul Long MD at 23:46 EDT ,
--- NOTE | 2021-11-21 23:29 | EDS_ITS ---
HPI History of Present Illness Chief Complaint: Fall Narrative Narrative: Patient is a 71-year-old female from the skilled nursing with past medical history of anxiety hyperlipidemia Alzheimer's dementia and difficulty ambulating. Patient states that she uses walkers to get around. Patient states that around 9:00 this evening she was trying to move one of her walker as when she lost her balance and fell to the ground. She denies striking her head any loss of conscious or blood thinner use. She states she was on the ground approximately for 1 hour prior to skilled nursing finding her. She states she has chronic back pain but since the fall feels like her lower back pain is worse in nature. Therefore with her report of back pain following a fall in skilled nursing sent her in for evaluation. [facility] states patient is at her baseline mental status [facility] Medical History Alzheimer's dementia Anxiety Asthma High cholesterol Allergy/AdvReac Type Severity Reaction Status Date / Time codeine Allergy Upset Verified 11/21/21 22:34 Stomach Social History Smoking Status: Never smoker ROS ROS ED Constitutional Constitutional ED: Denies chills or fever(s) Eyes Eyes: Denies change in vision ENT ENT ED: Denies sore throat Cardiovascular Cardiovascular: Denies chest pain Respiratory/Chest Respiratory/Chest: Denies cough or dyspnea Gastrointestinal Gastrointestinal: Denies abdominal pain, diarrhea, nausea or vomiting Genitourinary Genitourinary ED: Denies dysuria Musculoskeletal Musculoskeletal: Reports back pain; Denies myalgias Integumentary Denies Abrasions or rash Neurologic Neurologic: Denies headache(s) or paresthesias Hematologic/Lymphatic Hematologic/Lymphatic: Denies easy bleeding or easy bruising EXAM Physical Exam Const Vital Signs: 11/21/21 22:29 11/21/21 22:54 Temperature 97 F L Temperature Source Temporal Pulse Rate 57 L Respiratory Rate 16 Respiratory Effort Normal Blood Pressure 102/51 L Blood Pressure Mean 68 Pulse Ox 96 Oxygen Delivery Method Room Air Positive well nourished and well developed General Appearance ED: well developed HEENT HEENT Narrative: No signs of depressed or basilar skull fracture Eyes PERRL and EOMs intact bilaterally Neck supple Chest Wall palpation of chest normal Resp normal respiratory effort and clear to auscultation bilaterally Resp Narrative: Breath sounds are diminished throughout but overall clear to auscultation with no signs of distress Cardio regular rate and regular rhythm GI non-tender and non-distended GI Narrative: No voluntary guarding or rigidity no pulsatile mass Auscultation: normoactive bowel sounds Palpation: soft Back/Spine Back/Spine Narrative: No bony deformity or step-off of the thoracic or lumbar spine but there is midline lumbar pain with palpation Extremity normal to inspection Extremity Narrative: Pelvis is stable there is no shortening or external rotation of either lower extremity. Patient can lift both legs and arms without difficulty Neuro CN's II-XII intact bilaterally Neuro Narrative: Patient is awake alert to person and place which is her baseline mental status with history of Alzheimer's dementia. No acute/focal neurologic finding noted Sensorium / Orientation: alert Psych Psych Narrative: Patient has a flat affect Skin no rashes or lesions noted Skin Narrative: No abrasions or ecchymosis noted MDM MDM MDM Narrative Medical decision making narrative: Patient presented to the ER after report of mechanical fall so I felt no need for a cardiac or syncope work-up. Patient is not on blood thinners and she did not have signs of head trauma based on her advanced age and elected perform CTs of the head and cervical spine. He is revealed no clinically significant/traumatic findings. A pelvis x-ray and lumbar spine x-ray were also obtained and revealed no acute trauma. On reevaluation the patient is resting comfortably and remains at her baseline mental status. Therefore at this time with exam and imaging studies revealing no acute traumatic findings patient is otherwise safe to return to skilled nursing. Radiography Diagnostic Testing: Clinical Impression(s) from Imaging Studies Pelvis X-Ray 11/21/21 22:42 IMPRESSION: No evidence of displaced pelvic fracture. Electronically Signed: Paul Long MD at 23:46 EDT , Brain CT 11/21/21 23:10 IMPRESSION: Negative head/brain CT without intravenous contrast. Electronically Signed: Paul Long MD at 23:38 EDT , Cervical Spine CT 11/21/21 23:10 IMPRESSION: Moderate degenerative changes. No acute fractures or subluxations. Electronically Signed: Paul Long MD at 23:48 EDT , Lumbar Spine X-Ray 11/21/21 23:15 IMPRESSION: Degenerative changes. No acute fractures or subluxations. Electronically Signed: Paul oLng MD at 23:46 EDT , Pelvis x-ray as interpreted by the emergency medicine physician reveals no acute fracture or dislocation Lumbar spine x-ray as interpreted by the emergency medicine physician reveals degenerative changes without acute compression fracture or spondylolisthesis Discharge Plan Triage Chief Complaint: Fall ED Provider: Raoul Da Silva Dx/Rx/DC Orders Clinical Impression: Accidental fall, Low back pain Instructions: ED Back Pain (Acute or Chronic), ED Fall Prevention Primary Care Provider: Claudia Anderson Referrals: Claudia Anderson MD [Primary Care Provider] - Activity Restrictions/Additional Instructions: Please continue all of your medications as previously prescribed. You will be sore after the fall for typically about 7 to 10 days. If symptoms are lasting longer than this or worsen please return to the ER or see your family doctor for repeat evaluation. Disposition Disposition: Home, Self Care
--- NOTE | 2021-11-22 00:18 | NURSING ---
Physicians called for return transport eta 1 hour.
[2021-11-22 00:21] VITALS: BP 104/52; PULSE 53; RESP 16; O2SAT 97
== END 2021-11-22 01:03 | disposition home or self-care (01) ==
PROVIDERS: Emergency Provider Emergency Medicine; PCP Internal Medicine; Visit Provider Emergency Medicine
DX: M54.50 Low back pain, unspecified (principal); G30.9 Alzheimer's disease, unspecified; F02.80 Dementia in other diseases classified elsewhere, unspecified severity, without behavioral disturbance, psychotic disturbance, mood disturbance, and anxiety; E78.5 Hyperlipidemia, unspecified; F41.9 Anxiety disorder, unspecified; J45.909 Unspecified asthma, uncomplicated; G89.29 Other chronic pain
CPT/HCPCS: 70450; 72110; 72125; 72170; 96372; 99284

== ENCOUNTER → 2021-11-25 | Outpatient (REF) | payer MEDICARE, MEDICAID, SELFPAY ==
[2021-11-25 09:27] LABS: Absolute Neutrophil Count 1.6 X10^3/uL (2.0-7.7); Basophil# 0.06 X10^3/uL; Basophil% 1.1 % (0-1); Eosinophil# 0.46 X10^3/uL; Eosinophils% 8.6 % (0-5); Hematocrit 35.6 % (37-47); Hemoglobin 11.3 g/dL (12.0-15.0); Lymphocyte % 50.3 % (19-41); Mean Corp Hgb Conc 31.7 g/dL (32-36); Mean Corpuscular Hgb 32.7 pg (27.0-32.0); Mean Corpuscular Volume 102.9 fL (81-99); Mean Platelet Vol. 10.4 fl (6.2-12.0); Monocyte# 0.56 X10^3/uL; Monocyte% 10.4 % (0-10); NRBC Flagged by Analyzer 0 % (0-5); Neutrophil # 1.58 X10^3/uL (2.7-7.7); Neutrophil % 29.4 % (47-70); Platelet Count 278 K/mm3 (150-450); RBC Distribution Width CV 12.7 % (11.6-14.6); RBC Distribution Width SD 47.5 fl (35.1-43.9); Red Blood Count 3.46 M/mm3 (4.2-5.4); White Blood Count 5.4 K/mm3 (4.4-11.0)
[2021-11-25 09:46] LABS: Anion Gap 6 (5-15); BUN 6 mg/dL (7-18); BUN/Creat Ratio 8.9 RATIO (10-20); Calcium,Total 8.8 mg/dL (8.5-10.1); Chloride 107 mmol/L (98-107); Creatinine, Serum 0.67 mg/dL (0.55-1.02); EST Glomerular Filtration Rate 92 mL/min (>60); Est Glom Filt Rate - Afr Amer 111 mL/min (>60); Glucose 77 mg/dL (74-106); Potassium 3.7 mmol/L (3.5-5.1); Sodium Level 142 mmol/L (136-145)
== END ==
LOC: OLS.SWAL 05:00
PROVIDERS: PCP Internal Medicine; Visit Provider Internal Medicine
DX: E78.5 Hyperlipidemia, unspecified (principal)
CPT/HCPCS: 36415; 80048; 85025

== ENCOUNTER → 2021-12-02 | Outpatient (REF) | payer MEDICAID, SELFPAY ==
[2021-12-02 08:43] LABS: Absolute Neutrophil Count 1.8 X10^3/uL (2.0-7.7); Basophil# 0.06 X10^3/uL; Eosinophil# 0.52 X10^3/uL; Eosinophils% 8.7 % (0-5); Hematocrit 35.6 % (37-47); Hemoglobin 11.1 g/dL (12.0-15.0); Lymphocyte % 50.2 % (19-41); Mean Corp Hgb Conc 31.2 g/dL (32-36); Mean Corpuscular Hgb 32.4 pg (27.0-32.0); Mean Corpuscular Volume 103.8 fL (81-99); Mean Platelet Vol. 10.6 fl (6.2-12.0); Monocyte# 0.57 X10^3/uL; Monocyte% 9.5 % (0-10); NRBC Flagged by Analyzer 0 % (0-5); Neutrophil # 1.82 X10^3/uL (2.7-7.7); Neutrophil % 30.4 % (47-70); Platelet Count 254 K/mm3 (150-450); RBC Distribution Width CV 12.4 % (11.6-14.6); RBC Distribution Width SD 47.6 fl (35.1-43.9); Red Blood Count 3.43 M/mm3 (4.2-5.4)
[2021-12-02 08:52] LABS: Anion Gap 5 (5-15); BUN 6 mg/dL (7-18); BUN/Creat Ratio 8.5 RATIO (10-20); Calcium,Total 8.6 mg/dL (8.5-10.1); Chloride 108 mmol/L (98-107); Creatinine, Serum 0.71 mg/dL (0.55-1.02); EST Glomerular Filtration Rate 86 mL/min (>60); Est Glom Filt Rate - Afr Amer 105 mL/min (>60); Glucose 76 mg/dL (74-106); Potassium 3.9 mmol/L (3.5-5.1); Sodium Level 142 mmol/L (136-145)
== END | disposition home or self-care (01) ==
LOC: OLS.SWAL 05:00
PROVIDERS: PCP Internal Medicine; Visit Provider Internal Medicine
DX: R68.89 Other general symptoms and signs (principal); Z13.228 Encounter for screening for other metabolic disorders; Z79.899 Other long term (current) drug therapy
CPT/HCPCS: 36415; 80048; 85025

== ENCOUNTER → 2021-12-23 | Outpatient (REF) | payer MEDICARE, MEDICAID, SELFPAY ==
[2021-12-23 08:46] LABS: Absolute Lymphocyte Count 2.25 X10^3/uL (0.83-4.51); Absolute Neutrophil Count 5.2 X10^3/uL (2.0-7.7); Basophil# 0.07 X10^3/uL; Basophil% 0.8 % (0-1); Eosinophil# 0.72 X10^3/uL; Eosinophils% 8.2 % (0-5); Hematocrit 36.4 % (37-47); Lymphocyte # 2.25 X10^3/ul (0.83-4.51); Lymphocyte % 25.7 % (19-41); Mean Corp Hgb Conc 30.2 g/dL (32-36); Mean Corpuscular Hgb 31.3 pg (27.0-32.0); Mean Corpuscular Volume 103.4 fL (81-99); Mean Platelet Vol. 10.3 fl (6.2-12.0); Monocyte# 0.52 X10^3/uL; Monocyte% 5.9 % (0-10); NRBC Flagged by Analyzer 0 % (0-5); Neutrophil # 5.16 X10^3/uL (2.7-7.7); Neutrophil % 59.1 % (47-70); Platelet Count 321 K/mm3 (150-450); RBC Distribution Width CV 12.4 % (11.6-14.6); RBC Distribution Width SD 46.5 fl (35.1-43.9); Red Blood Count 3.52 M/mm3 (4.2-5.4); White Blood Count 8.8 K/mm3 (4.4-11.0)
[2021-12-23 09:15] LABS: Anion Gap 3 (5-15); BUN 12 mg/dL (7-18); BUN/Creat Ratio 16.4 RATIO (10-20); Calcium,Total 8.6 mg/dL (8.5-10.1); Chloride 108 mmol/L (98-107); Creatinine, Serum 0.73 mg/dL (0.55-1.02); EST Glomerular Filtration Rate 84 mL/min (>60); Est Glom Filt Rate - Afr Amer 101 mL/min (>60); Glucose 78 mg/dL (74-106); Potassium 4.3 mmol/L (3.5-5.1); Sodium Level 141 mmol/L (136-145)
== END ==
LOC: OLS.SW300 04:00
PROVIDERS: PCP Internal Medicine; Visit Provider Internal Medicine
DX: E55.9 Vitamin D deficiency, unspecified (principal)
CPT/HCPCS: 36415; 80048; 85025

== ENCOUNTER → 2021-12-29 | Outpatient (REF) | payer MEDICARE, MEDICAID, SELFPAY ==
[2021-12-29 11:49] LABS: Vitamin B12 682 pg/mL (211-911); Vitamin D,25 Hydroxy 45.3 ng/mL
[2021-12-30 05:27] LABS: Anion Gap 4 (5-15); BUN 10 mg/dL (7-18); BUN/Creat Ratio 13.8 RATIO (10-20); Calcium,Total 8.5 mg/dL (8.5-10.1); Chloride 107 mmol/L (98-107); Creatinine, Serum 0.72 mg/dL (0.55-1.02); EST Glomerular Filtration Rate 85 mL/min (>60); Est Glom Filt Rate - Afr Amer 102 mL/min (>60); Glucose 77 mg/dL (74-106); Potassium 4.3 mmol/L (3.5-5.1); Sodium Level 141 mmol/L (136-145)
[2021-12-30 05:44] LABS: Absolute Lymphocyte Count 2.72 X10^3/uL (0.83-4.51); Absolute Neutrophil Count 2.9 X10^3/uL (2.0-7.7); Basophil# 0.07 X10^3/uL; Eosinophil# 0.49 X10^3/uL; Eosinophils% 7.1 % (0-5); Hematocrit 35.9 % (37-47); Hemoglobin 10.8 g/dL (12.0-15.0); Lymphocyte # 2.72 X10^3/ul (0.83-4.51); Lymphocyte % 39.2 % (19-41); Mean Corp Hgb Conc 30.1 g/dL (32-36); Mean Corpuscular Hgb 31.6 pg (27.0-32.0); Mean Platelet Vol. 10.9 fl (6.2-12.0); Monocyte# 0.76 X10^3/uL; NRBC Flagged by Analyzer 0 % (0-5); Neutrophil # 2.87 X10^3/uL (2.7-7.7); Neutrophil % 41.4 % (47-70); Platelet Count 308 K/mm3 (150-450); RBC Distribution Width CV 12.8 % (11.6-14.6); Red Blood Count 3.42 M/mm3 (4.2-5.4); White Blood Count 6.9 K/mm3 (4.4-11.0)
== END ==
LOC: OLS.SW300 05:00
PROVIDERS: PCP Internal Medicine; Visit Provider Internal Medicine
DX: E55.9 Vitamin D deficiency, unspecified (principal); E46 Unspecified protein-calorie malnutrition; J44.9 Chronic obstructive pulmonary disease, unspecified; E11.9 Type 2 diabetes mellitus without complications
CPT/HCPCS: 36415; 80048; 82306; 82607; 85025

== ENCOUNTER 2022-01-18 19:09 | Emergency (ER) | payer MEDICARE, MEDICAID, SELFPAY ==
[2022-01-18 19:11] VITALS: BP 128/80; PULSE 60; RESP 18; TEMP 36.3; O2SAT 100; BMI 21.3
[2022-01-18 19:14] VITALS: BMI 21.3
--- NOTE | 2022-01-18 20:15 | ED.RN ---
RN FROM [facility] CALLED STATED THAT PT. TOOK HER EVENING MEDICATIONS TO EARLY. THEY STATED THAT HER PM MEDS MAKE HER DROWSY AND HAVE SLURRED SPEACH WHEN SHE TAKES THEM. DR. WINSLOW AWARE.
--- NOTE | 2022-01-18 20:34 | EX.ED.DYSGE1 ---
HPI History of Present Illness Chief Complaint: Neuro S/Sx Narrative Narrative: 71-year-old female with history of dementia presenting after a fall. She states that she fell while trying to get on her stool. She states she did not hit her head. She is not on any blood thinners but does take aspirin. She is awake and alert. She is a poor informant history of dementia. Her only complaint is that she is cold. Patient states that he has chronic back pain which is actually better today. She states she does not feel ill. [facility] Medical History Alzheimer's dementia Anxiety Asthma High cholesterol Home Medications ammonium lactate 12 % topical cream 1 applic topical BID 01/18/22 [History Last Taken 01/18/22] aspirin 81 mg tablet,delayed release 81 mg PO DAILY HEART HEALTH 01/18/22 [History Last Taken 01/18/22] atorvastatin 10 mg tablet 10 mg PO QHS CHOLESTEROL 01/18/22 [History Last Taken 01/17/22] buspirone 30 mg tablet 30 mg PO BID ANXIETY 01/18/22 [History Last Taken 01/18/22] cetirizine 10 mg tablet (Zyrtec) 10 mg PO DAILY ALLERGIES 01/18/22 [History Last Taken 01/18/22] clonazepam 0.5 mg tablet 0.5 mg PO TID ANXIETY 01/18/22 [History Last Taken 01/18/22] cyanocobalamin (vitamin B-12) 500 mcg tablet (Vitamin B-12) 500 mcg PO DAILY SUPPLEMENT 01/18/22 [History Last Taken 01/18/22] donepezil 10 mg tablet 10 mg PO DAILY ALZHEIMERS 01/18/22 [History Last Taken 01/18/22] lamotrigine 100 mg tablet 100 mg PO DAILY BIPOLAR DISORDER 01/18/22 [History Last Taken 01/18/22] lamotrigine 100 mg tablet 100 mg PO QHS BIPOLAR DISORDER 01/18/22 [History Last Taken 01/17/22] lamotrigine 50 mg tablet,extended release 24 hr 50 mg PO DAILY BIPOLAR DISORDER 01/18/22 [History Last Taken 01/18/22] lidocaine 4 % topical patch (Lidocaine Pain Relief) 1 patch topical DAILY PAIN 01/18/22 [History Last Taken 01/18/22] memantine 10 mg tablet 20 mg PO DAILY ALZHEIMERS 01/18/22 [History Last Taken 01/18/22] multivitamin 1 tab PO DAILY HEALTH MAINTENANCE 01/18/22 [History Last Taken 01/18/22] naproxen sodium 220 mg tablet (Aleve) 220 mg PO BID PAIN 01/18/22 [History Last Taken 01/18/22] oxybutynin chloride 10 mg tablet,extended release 24 hr 10 mg PO BID BLADDER DYSFUNCTION 01/18/22 [History Last Taken 01/18/22] primidone 50 mg tablet 150 mg PO BID TREMORS 01/18/22 [History Last Taken 01/18/22] propranolol 20 mg tablet 20 mg PO BID HYPERTENSION 01/18/22 [History Last Taken 01/18/22] sennosides 8.6 mg-docusate sodium 50 mg tablet (Senna Plus) 1 tab PO BID CONSTIPATION 01/18/22 [History Last Taken 01/18/22] sertraline 50 mg tablet (Zoloft) 50 mg PO QHS DEPRESSION/ANXIETY 01/18/22 [History Last Taken 01/17/22] trazodone 150 mg tablet 225 mg PO QHS INSOMNIA 01/18/22 [History Last Taken 01/17/22] venlafaxine 150 mg capsule,extended release 24 hr (Effexor XR) 150 mg PO DAILY ANXIETY 01/18/22 [History Last Taken 01/18/22] venlafaxine 75 mg capsule,extended release 24 hr (Effexor XR) 75 mg PO DAILY ANXIETY 01/18/22 [History Last Taken 01/18/22] Allergy/AdvReac Type Severity Reaction Status Date / Time codeine Allergy Upset Verified 01/18/22 19:10 Stomach Social History Smoking Status: Never smoker ROS ROS ED Constitutional Constitutional ED: Denies chills or fever(s) Eyes Eyes: Denies change in vision or diplopia ENT ENT ED: Denies rhinorrhea or sore throat Cardiovascular Cardiovascular: Denies chest pain or palpitations Respiratory/Chest Respiratory/Chest: Denies cough or dyspnea Gastrointestinal Gastrointestinal: Denies abdominal pain, nausea or vomiting Genitourinary Genitourinary ED: Denies dysuria or hematuria Musculoskeletal Musculoskeletal: Reports back pain; Denies arthralgias Integumentary Denies abscess or Abrasions Neurologic Neurologic: Denies headache(s) or paresthesias Psychiatric Psychiatric: Denies anxiety or depression EXAM Physical Exam Const Vital Signs: 01/18/22 19:11 Temperature 97.4 F L Temperature Source Temporal Pulse Rate 60 Respiratory Rate 18 Blood Pressure 128/80 H Blood Pressure Mean 96 Pulse Ox 100 Oxygen Delivery Method Room Air Positive well nourished General Appearance ED: NAD HEENT Reports TM's clear, moist mucous membranes and dry mucous membranes Negative for trauma Tympanic Membrane ED: Yes TM's clear Mouth ED: Yes dry mucous membranes Mouth: dry mucous membranes Eyes PERRL and EOMs intact bilaterally General Eye ED: Negative for pale conjunctiva or scleral icterus Chest Wall inspection of chest normal and palpation of chest normal Resp normal respiratory effort and clear to auscultation bilaterally Cardio regular rate and regular rhythm GI normal to inspection, nondistended, normoactive bowel sounds Back/Spine Cervical Spine: Negative for cervical spine tenderness Thoracic Spine / Upper Back: Negative for thoracic spinal tenderness Extremity Extremity Narrative: Patient is all 4 extremities without weakness or debility. Neuro oriented x3 and CN's II-XII intact bilaterally Neuro Narrative: No focal neurologic deficits. Sensorium / Orientation: alert Motor Exam: strength 5/5 throughout Psych mental status grossly normal Skin no rashes or lesions noted and no wounds MDM MDM MDM Narrative Medical decision making narrative: Patient arrives after a fall. There is no sign of trauma on exam. She is alert and awake. No focal neurologic deficits. She is moving all 4 extremities. Her only complaint is that she is cold. Nursing staff did reach out to the group home who stated that she had taken her clonazepam early and she usually gets a little goofy when she takes it. At this point she has stable vital signs and no complaints except for feeling cold. I feel she stable for discharge. I do not think she needs blood work or imaging. Impression: 1. Falls Lab Data Attestation: I reviewed the patient's lab results. Discharge Plan Triage Chief Complaint: Neuro S/Sx ED Provider: Oniel Valente Dx/Rx/DC Orders Instructions: ED Fall Prevention Prescriptions: No Action multivitamin Tablet 1 tab PO DAILY primidone 50 mg Tablet 150 mg PO BID venlafaxine [Effexor XR] 75 mg Capsule,Extended Release 24hr 75 mg PO DAILY lidocaine [Lidocaine Pain Relief] 4 % Adhesive Patch,Medicated 1 patch TOPICAL DAILY cetirizine [Zyrtec] 10 mg Tablet 10 mg PO DAILY atorvastatin 10 mg Tablet 10 mg PO QHS oxybutynin chloride 10 mg Tablet Extended Release 24hr 10 mg PO BID donepezil 10 mg Tablet 10 mg PO DAILY clonazepam 0.5 mg Tablet 0.5 mg PO TID sennosides-docusate sodium [Senna Plus] 8.6-50 mg Tablet 1 tab PO BID venlafaxine [Effexor XR] 150 mg Capsule,Extended Release 24hr 150 mg PO DAILY aspirin [Aspirin Low-Strength] 81 mg Tablet,Delayed Release (Dr/Ec) 81 mg PO DAILY cyanocobalamin (vitamin B-12) [Vitamin B-12] 500 mcg Tablet 500 mcg PO DAILY trazodone 150 mg Tablet 225 mg PO QHS buspirone 30 mg Tablet 30 mg PO BID naproxen sodium [Aleve] 220 mg Tablet 220 mg PO BID ammonium lactate 12 % Cream 1 applic TOPICAL BID propranolol 20 mg Tablet 20 mg PO BID sertraline [Zoloft] 50 mg Tablet 50 mg PO QHS lamotrigine 100 mg Tablet 100 mg PO DAILY lamotrigine 100 mg Tablet 100 mg PO QHS memantine 10 mg Tablet 20 mg PO DAILY lamotrigine 50 mg Tablet Extended Release 24hr 50 mg PO DAILY Primary Care Provider: Claudia Anderson Referrals: Claudia Anderson MD [Primary Care Provider] - Disposition Disposition: Home, Self Care
--- NOTE | 2022-01-18 20:42 | NURSING ---
[facility] ETA [id number]
[2022-01-18 21:11] VITALS: BP 118/78; BP 134/78; PULSE 78; PULSE 79; RESP 16; TEMP 36.6; TEMP 37.2; O2SAT 98; O2SAT 99
== END 2022-01-18 22:27 | disposition home or self-care (01) ==
PROVIDERS: Emergency Provider Student in an Organized Health Care Education/Training Program; PCP Internal Medicine; Visit Provider Student in an Organized Health Care Education/Training Program
DX: G30.9 Alzheimer's disease, unspecified (principal); F02.80 Dementia in other diseases classified elsewhere, unspecified severity, without behavioral disturbance, psychotic disturbance, mood disturbance, and anxiety; E78.00 Pure hypercholesterolemia, unspecified; J45.909 Unspecified asthma, uncomplicated; Z79.82 Long term (current) use of aspirin; F41.9 Anxiety disorder, unspecified; Z79.899 Other long term (current) drug therapy; R29.6 Repeated falls; Z91.81 History of falling
CPT/HCPCS: 99284; A4216

== ENCOUNTER 2022-01-31 23:37 | Emergency (ER) | payer MEDICARE, MEDICAID, SELFPAY ==
[2022-01-31 23:38] VITALS: BP 150/70; PULSE 51; RESP 16; TEMP 36.4; O2SAT 100; BMI 20.6
--- NOTE | 2022-01-31 23:57 | EX.ED.DYSGE1 ---
HPI History of Present Illness Chief Complaint: Fall Narrative Narrative: Patient is a 71-year-old female from the shelter with past medical history of dementia. She has ambulate with a walker. She states that her leg gave out causing her to fall. Facility states that she was down for approximately 20 minutes and when they got to her she was awake and at her baseline mental status. Patient does not take any blood thinners but with the fall there was concern for underlying injury and therefore she was sent in for evaluation. [facility] Medical History Alzheimer's dementia Anxiety Asthma High cholesterol Home Medications ammonium lactate 12 % topical cream 1 applic topical BID 01/18/22 [History Last Taken 01/18/22] aspirin 81 mg tablet,delayed release 81 mg PO DAILY HEART HEALTH 01/18/22 [History Last Taken 01/18/22] atorvastatin 10 mg tablet 10 mg PO QHS CHOLESTEROL 01/18/22 [History Last Taken 01/17/22] buspirone 30 mg tablet 30 mg PO BID ANXIETY 01/18/22 [History Last Taken 01/18/22] cetirizine 10 mg tablet (Zyrtec) 10 mg PO DAILY ALLERGIES 01/18/22 [History Last Taken 01/18/22] clonazepam 0.5 mg tablet 0.5 mg PO TID ANXIETY 01/18/22 [History Last Taken 01/18/22] cyanocobalamin (vitamin B-12) 500 mcg tablet (Vitamin B-12) 500 mcg PO DAILY SUPPLEMENT 01/18/22 [History Last Taken 01/18/22] donepezil 10 mg tablet 10 mg PO DAILY ALZHEIMERS 01/18/22 [History Last Taken 01/18/22] lamotrigine 100 mg tablet 100 mg PO DAILY BIPOLAR DISORDER 01/18/22 [History Last Taken 01/18/22] lamotrigine 100 mg tablet 100 mg PO QHS BIPOLAR DISORDER 01/18/22 [History Last Taken 01/17/22] lamotrigine 50 mg tablet,extended release 24 hr 50 mg PO DAILY BIPOLAR DISORDER 01/18/22 [History Last Taken 01/18/22] lidocaine 4 % topical patch (Lidocaine Pain Relief) 1 patch topical DAILY PAIN 01/18/22 [History Last Taken 01/18/22] memantine 10 mg tablet 20 mg PO DAILY ALZHEIMERS 01/18/22 [History Last Taken 01/18/22] multivitamin 1 tab PO DAILY HEALTH MAINTENANCE 01/18/22 [History Last Taken 01/18/22] naproxen sodium 220 mg tablet (Aleve) 220 mg PO BID PAIN 01/18/22 [History Last Taken 01/18/22] oxybutynin chloride 10 mg tablet,extended release 24 hr 10 mg PO BID BLADDER DYSFUNCTION 01/18/22 [History Last Taken 01/18/22] primidone 50 mg tablet 150 mg PO BID TREMORS 01/18/22 [History Last Taken 01/18/22] propranolol 20 mg tablet 20 mg PO BID HYPERTENSION 01/18/22 [History Last Taken 01/18/22] sennosides 8.6 mg-docusate sodium 50 mg tablet (Senna Plus) 1 tab PO BID CONSTIPATION 01/18/22 [History Last Taken 01/18/22] sertraline 50 mg tablet (Zoloft) 50 mg PO QHS DEPRESSION/ANXIETY 01/18/22 [History Last Taken 01/17/22] trazodone 150 mg tablet 225 mg PO QHS INSOMNIA 01/18/22 [History Last Taken 01/17/22] venlafaxine 150 mg capsule,extended release 24 hr (Effexor XR) 150 mg PO DAILY ANXIETY 01/18/22 [History Last Taken 01/18/22] venlafaxine 75 mg capsule,extended release 24 hr (Effexor XR) 75 mg PO DAILY ANXIETY 01/18/22 [History Last Taken 01/18/22] Allergy/AdvReac Type Severity Reaction Status Date / Time codeine Allergy Upset Verified 01/18/22 19:10 Stomach Social History Smoking Status: Never smoker ROS ROS ED ROS Narrative Please note review of systems may be unreliable secondary to history of dementia Constitutional Constitutional ED: Denies chills or fever(s) Eyes Eyes: Denies change in vision ENT ENT ED: Denies sore throat Cardiovascular Cardiovascular: Denies chest pain Respiratory/Chest Respiratory/Chest: Denies cough or dyspnea Gastrointestinal Gastrointestinal: Denies abdominal pain, diarrhea, nausea or vomiting Genitourinary Genitourinary ED: Denies dysuria Musculoskeletal Musculoskeletal: Reports back pain and other Details: Positive bilateral shoulder pain ; Denies neck pain Integumentary Reports Abrasions; Denies rash Neurologic Neurologic: Denies headache(s) Hematologic/Lymphatic Hematologic/Lymphatic: Denies easy bleeding or easy bruising EXAM Physical Exam Const Vital Signs: 01/31/22 23:38 01/31/22 23:42 Temperature 97.5 F L Temperature Source Oral Pulse Rate 51 L Respiratory Rate 16 Respiratory Effort Normal Non-Labored Respiratory Depth Normal Respiratory Pattern Normal Blood Pressure 150/70 H Blood Pressure Mean 96 Pulse Ox 100 Oxygen Delivery Method Room Air Room Air Positive well nourished and well developed General Appearance ED: well developed HEENT HEENT Narrative: Patient has a superficial abrasion along the right lower portion of the forehead/frontal bone and mild superficial abrasion along the right zygomatic arch/cheek. Otherwise no signs of depressed or basilar skull fracture Eyes PERRL and EOMs intact bilaterally Neck Neck Narrative: C-collar in place there is no bony deformity or step-off of the cervical spine Chest Wall palpation of chest normal Chest Narrative: No bony deformity or crepitance Resp normal respiratory effort and clear to auscultation bilaterally Resp Narrative: Breath sounds are diminished throughout but overall clear to auscultation with no signs of distress Cardio regular rate and regular rhythm GI normal to inspection, nondistended, normoactive bowel sounds, non-tender and non-distended GI Narrative: No voluntary guarding or rigidity no pulsatile mass Auscultation: normoactive bowel sounds Palpation: soft Back/Spine Back/Spine Narrative: Patient has mild dextroscoliosis and there is pain on palpation over top the lumbar spine. Extremity Extremity Narrative: Pelvis is stable there is no shortening or external rotation of either lower extremity. There is no pain with palpation of the pelvis or the suprapubic region. Patient does have superficial abrasions over top bilateral shoulder. There is no obvious bony deformity or joint effusion. Active range of motion of the arms is decreased secondary to pain. Neuro CN's II-XII intact bilaterally Neuro Narrative: Patient is at her baseline mental status without focal neurologic deficit Sensorium / Orientation: alert Psych mental status grossly normal Skin Skin Narrative: Superficial abrasions as documented above MDM MDM MDM Narrative Medical decision making narrative: Patient presented to the ER awake and alert at her baseline mental status. She is not on blood thinners but she does have minor abrasions across the right cheek and forehead indicating she hit her head when she fell. Secondary to the CTs of the head and cervical spine were obtained. These revealed no acute trauma changes. As she had pain along both shoulders x-rays were obtained of these as well as well as the pelvis and low back as there is pain with palpation. All images revealed no acute fracture or dislocation. Therefore at this time patient had a mechanical fall she is at her baseline mental status there is no cervical injury or skull fracture/brain bleed and there is no long bone injury so therefore patient is safe to return to the shelter. Radiography Diagnostic Testing: Clinical Impression(s) from Imaging Studies Lumbar Spine X-Ray 02/01/22 00:25 IMPRESSION: 1. Degenerative changes. No acute fractures or subluxations. 2. Old compression fracture T11. Electronically Signed: Paul Long MD at 1:21 EST Reading Location ID and State: [employer] [facility] [employer] Tel , Service support , Shoulder X-Ray 02/01/22 00:28 IMPRESSION: Negative right shoulder x-rays. Electronically Signed: Paul Long MD at 1:18 EST Reading Location ID and State: [email or web address] / [employer] Tel , Service support , Pelvis X-Ray 02/01/22 00:30 IMPRESSION: No evidence of displaced pelvic fracture. Electronically Signed: Paul Long MD at 1:19 EST Reading Location ID and State: [email or web address] / [employer] Tel , Service support , Shoulder X-Ray 02/01/22 00:35 IMPRESSION: Negative left shoulder x-rays. Electronically Signed: Paul Long MD at 1:18 EST Reading Location ID and State: [email or web address] [facility] [employer] Tel , Service support , Brain CT 02/01/22 23:55 IMPRESSION: Mild generalized atrophy. Mild low density bilaterally in the deep white matter. This likely represents small vessel ischemic changes in the deep white matter. Electronically Signed: Paul Long MD at 0:24 EST , Cervical Spine CT 02/01/22 23:55 IMPRESSION: Moderate degenerative changes. No acute fractures or subluxations. Electronically Signed: Paul Long MD at 0:25 EST , X-ray of the right and left shoulder as interpreted by the emergency medicine physician reveals no acute fracture or dislocation X-ray of the pelvis as interpreted by the emergency medicine physician reveals age-related degenerative changes without acute fracture or dislocation X-ray of the lumbar spine as interpreted by the emergency medicine physician reveals a chronic T11 compression fracture with degenerative changes and no acute fracture or spondylolisthesis Discharge Plan Triage Chief Complaint: Fall ED Provider: Raoul Da Silva Dx/Rx/DC Orders Clinical Impression: Closed head injury, Accidental fall, Contusion of multiple sites, Dementia Instructions: ED Head Injury (Adult), ED Fall Prevention Prescriptions: No Action multivitamin Tablet 1 tab PO DAILY primidone 50 mg Tablet 150 mg PO BID venlafaxine [Effexor XR] 75 mg Capsule,Extended Release 24hr 75 mg PO DAILY lidocaine [Lidocaine Pain Relief] 4 % Adhesive Patch,Medicated 1 patch TOPICAL DAILY cetirizine [Zyrtec] 10 mg Tablet 10 mg PO DAILY atorvastatin 10 mg Tablet 10 mg PO QHS oxybutynin chloride 10 mg Tablet Extended Release 24hr 10 mg PO BID donepezil 10 mg Tablet 10 mg PO DAILY clonazepam 0.5 mg Tablet 0.5 mg PO TID sennosides-docusate sodium [Senna Plus] 8.6-50 mg Tablet 1 tab PO BID venlafaxine [Effexor XR] 150 mg Capsule,Extended Release 24hr 150 mg PO DAILY aspirin [Aspirin Low-Strength] 81 mg Tablet,Delayed Release (Dr/Ec) 81 mg PO DAILY cyanocobalamin (vitamin B-12) [Vitamin B-12] 500 mcg Tablet 500 mcg PO DAILY trazodone 150 mg Tablet 225 mg PO QHS buspirone 30 mg Tablet 30 mg PO BID naproxen sodium [Aleve] 220 mg Tablet 220 mg PO BID ammonium lactate 12 % Cream 1 applic TOPICAL BID propranolol 20 mg Tablet 20 mg PO BID sertraline [Zoloft] 50 mg Tablet 50 mg PO QHS lamotrigine 100 mg Tablet 100 mg PO DAILY lamotrigine 100 mg Tablet 100 mg PO QHS memantine 10 mg Tablet 20 mg PO DAILY lamotrigine 50 mg Tablet Extended Release 24hr 50 mg PO DAILY Primary Care Provider: Addi Tatum Referrals: Addi Tatum DO [Primary Care Provider] - Disposition Disposition: Home, Self Care
--- NOTE | 2022-02-01 00:25 | RAD_ITS ---
EXAM: XR LUMBOSACRAL SPINE, 2 OR 3 VIEWS CLINICAL INDICATION: pain TECHNIQUE: Frontal and lateral views of the lumbar spine and sacrum. This report was created using [employer] report centrose technology. COMPARISON: None. FINDINGS: VERTEBRAE: Slight anterior subluxation of L4 and L5. Diffuse [id number] spondylitic changes. Bilateral multilevel vertebral facet arthropathy in the lower lumbar spine. Old compression fracture T11. Preservation of the normal lumbar lordosis. DISC SPACES: No acute findings. Disc spaces are maintained. GASTROINTESTINAL TRACT: Unremarkable as visualized. Included bowel gas pattern is non-obstructive. RAD/Lumbar Spine 2 or 3 Views IMPRESSION: 1. Degenerative changes. No acute fractures or subluxations. 2. Old compression fracture T11. Electronically Signed: Paul Long MD at 1:21 EST ,
--- NOTE | 2022-02-01 00:28 | RAD_ITS ---
EXAM: XR RIGHT SHOULDER COMPLETE, 2 OR MORE VIEWS CLINICAL INDICATION: pain TECHNIQUE: Two or more views of the right shoulder. This report was created using [employer] report generation technology. COMPARISON: None. FINDINGS: BONES/JOINTS: Unremarkable. No acute fracture. No subluxation. Normal alignment. Preservation of the joint space. No sclerotic or destructive changes observed. SOFT TISSUES: Unremarkable. No soft tissue swelling or gas. No radiopaque foreign body. RAD/Shoulder min 2 Views IMPRESSION: Negative right shoulder x-rays. Electronically Signed: Paul Long MD at 1:18 EST ,
--- NOTE | 2022-02-01 00:30 | RAD_ITS ---
EXAM: XR PELVIS, 1 OR 2 VIEWS CLINICAL INDICATION: fall/pain TECHNIQUE: Frontal view of the pelvis. This report was created using [employer] report generation technology. COMPARISON: None. FINDINGS: BONES/JOINTS: Unremarkable. No displaced fracture. No destructive or sclerotic lesions. Note that overlapping bowel shadows may however obscure fine detail. Sacroiliac joints are unremarkable. No widening of the pubic symphysis. The articular structures are unremarkable. SOFT TISSUES: Unremarkable. No soft tissue swelling or gas. RAD/Pelvis 1 or 2 Views IMPRESSION: No evidence of displaced pelvic fracture. Electronically Signed: Paul Long MD at 1:19 EST ,
--- NOTE | 2022-02-01 00:35 | RAD_ITS ---
EXAM: XR LEFT SHOULDER COMPLETE, 2 OR MORE VIEWS CLINICAL INDICATION: PAIN TECHNIQUE: Two or more views of the left shoulder. This report was created using [employer] report generation technology. COMPARISON: None. FINDINGS: BONES/JOINTS: Unremarkable. No acute fracture. No subluxation. Normal alignment. Preservation of the joint space. No sclerotic or destructive changes observed. SOFT TISSUES: Unremarkable. No soft tissue swelling or gas. No radiopaque foreign body. RAD/Shoulder min 2 Views IMPRESSION: Negative left shoulder x-rays. Electronically Signed: Paul Long MD at 1:18 EST ,
[2022-02-01] MEDS: Acetaminophen 500 MG Tablet 1000 MG PO (01:33)
[2022-02-01 01:37] VITALS: BP 134/70; PULSE 58; RESP 16; O2SAT 98
--- NOTE | 2022-02-01 23:55 | CT_ITS ---
EXAM: CT HEAD WITHOUT INTRAVENOUS CONTRAST CLINICAL INDICATION: head injury TECHNIQUE: Multiple axial images were obtained of the head without intravenous contrast. This CT exam was performed using one or more of the following dose reduction techniques: automated exposure control, adjustment of the mA and/or kV according to patient size, and/or use of iterative reconstruction technique. This report was created using [employer] report generation technology. RADIATION DOSE: CTDIvol = 44.99 mGy, DLP = 745.49 mGy-cm. COMPARISON: 11/21/2021. FINDINGS: BRAIN AND EXTRA-AXIAL SPACES: Mild generalized atrophy. Mild low density bilaterally in the deep white matter. No intra- or extra-axial hemorrhage. No evidence of acute infarct. No intracranial mass or mass effect. There is preservation of the valera/white matter interface. Posterior fossa structures are unremarkable. No hydrocephalus. Basal cisterns are patent. BONES/JOINTS: Unremarkable. No discrete lytic or blastic abnormalities. SINUSES: Unremarkable as visualized. Clear. MASTOID AIR CELLS: Unremarkable. Clear. ORBITS: Visualized globes, extraocular muscles, optic nerves and retrobulbar fat appear unremarkable. CT/Brain/Head without Contrast IMPRESSION: Mild generalized atrophy. Mild low density bilaterally in the deep white matter. This likely represents small vessel ischemic changes in the deep white matter. Electronically Signed: Paul Long MD at 0:24 EST ,
--- NOTE | 2022-02-01 23:55 | CT_ITS ---
EXAM: CT CERVICAL SPINE WITHOUT INTRAVENOUS CONTRAST CLINICAL INDICATION: fall/injury TECHNIQUE: Helically acquired images were obtained of the cervical spine without intravenous contrast. 2D reformatted images were reviewed. This CT exam was performed using one or more of the following dose reduction techniques: automated exposure control, adjustment of the mA and/or kV according to patient size, and/or use of iterative reconstruction technique. This report was created using [employer] report generation technology. RADIATION DOSE: CTDIvol = 12.12 mGy, DLP = 257.95 mGy-cm. COMPARISON: None. FINDINGS: VERTEBRAE: Moderate multilevel bilateral vertebral facet arthropathy. No fracture. No traumatic subluxation. No discrete lytic or blastic abnormality. Normal alignment. Normal craniocervical junction and cervicothoracic junction. DISCS/SPINAL CANAL/NEURAL FORAMINA: Moderate multilevel degenerative disc disease. No critical stenosis. SOFT TISSUES: Unremarkable. No prevertebral soft tissue swelling. LYMPH NODES: Unremarkable. No cervical adenopathy. LUNG APICES: Unremarkable as visualized. Clear. CT/Spine Cervical without Contras IMPRESSION: Moderate degenerative changes. No acute fractures or subluxations. Electronically Signed: Paul Long MD at 0:25 EST ,
== END 2022-02-01 02:41 | disposition home or self-care (01) ==
PROVIDERS: Emergency Provider Emergency Medicine; PCP Family Medicine; Visit Provider Emergency Medicine
DX: S09.90XA Unspecified injury of head, initial encounter (principal); G30.9 Alzheimer's disease, unspecified; F02.80 Dementia in other diseases classified elsewhere, unspecified severity, without behavioral disturbance, psychotic disturbance, mood disturbance, and anxiety; W19.XXXA Unspecified fall, initial encounter; S40.211A Abrasion of right shoulder, initial encounter; S40.212A Abrasion of left shoulder, initial encounter
CPT/HCPCS: 70450; 72100; 72125; 72170; 73030; 99285; A4216

== ENCOUNTER → 2022-02-08 | Outpatient (REF) | payer MEDICARE, MEDICAID, SELFPAY ==
[2022-02-08 08:20] LABS: Anion Gap 4 (5-15); BUN 10 mg/dL (7-18); BUN/Creat Ratio 14.2 RATIO (10-20); Calcium,Total 8.3 mg/dL (8.5-10.1); Chloride 109 mmol/L (98-107); Creatinine, Serum 0.71 mg/dL (0.55-1.02); EST Glomerular Filtration Rate 87 mL/min (>60); Est Glom Filt Rate - Afr Amer 105 mL/min (>60); Glucose 89 mg/dL (74-106); Magnesium 2.2 mg/dL (1.6-2.6); Potassium 3.6 mmol/L (3.5-5.1); Sodium Level 144 mmol/L (136-145)
[2022-02-08 08:23] LABS: Absolute Lymphocyte Count 2.55 X10^3/uL (0.83-4.51); Absolute Neutrophil Count 1.3 X10^3/uL (2.0-7.7); Basophil# 0.05 X10^3/uL; Basophil% 1.1 % (0-1); Eosinophil# 0.26 X10^3/uL; Eosinophils% 5.7 % (0-5); Hematocrit 36.2 % (37-47); Hemoglobin 11.4 g/dL (12.0-15.0); Lymphocyte # 2.55 X10^3/ul (0.83-4.51); Lymphocyte % 55.7 % (19-41); Mean Corp Hgb Conc 31.5 g/dL (32-36); Mean Corpuscular Hgb 31.5 pg (27.0-32.0); Mean Platelet Vol. 10.8 fl (6.2-12.0); Monocyte# 0.42 X10^3/uL; Monocyte% 9.2 % (0-10); NRBC Flagged by Analyzer 0 % (0-5); Neutrophil % 28.3 % (47-70); Platelet Count 209 K/mm3 (150-450); RBC Distribution Width CV 12.7 % (11.6-14.6); RBC Distribution Width SD 46.6 fl (35.1-43.9); Red Blood Count 3.62 M/mm3 (4.2-5.4); White Blood Count 4.6 K/mm3 (4.4-11.0)
== END ==
LOC: OLS.SWAL 05:00
PROVIDERS: PCP Family Medicine; Visit Provider Internal Medicine
DX: I10 Essential (primary) hypertension (principal)
CPT/HCPCS: 36415; 80048; 83735; 85025

== ENCOUNTER 2022-02-13 22:10 | Emergency (ER) | payer MEDICARE, MEDICAID, SELFPAY ==
[2022-02-13 22:11] VITALS: BP 149/64; PULSE 50; RESP 17; TEMP 36.4; O2SAT 99; BMI 20.2
--- NOTE | 2022-02-13 23:07 | CT_ITS ---
EXAM: CT brain without contrast HISTORY: fall TECHNIQUE: CT Head or Brain W/O Contrast Injection A radiation dose optimization technique was used for this scan. COMPARISON: CT brain 02/01/2022 LIMITATIONS: None. BRAIN: Normal valrea/white matter differentiation. VENTRICLES: The ventricles and cortical sulci are mildly enlarged, similar to the prior. Bilateral periventricular hypoattenuation, nonspecific however likely represents chronic microvascular ischemic changes. EXTRA-AXIAL SPACES: No hemorrhages, fluid collections, or masses. CALVARIUM/SKULL BASE: Normal. FACE/SINUSES: Visualized portions normal. SOFT TISSUES: Normal. OTHER: None. CT/Brain/Head without Contrast IMPRESSION: No intracranial hemorrhage or depressed calvarial fracture. Electronically Signed: Jeramie Carter MD at 23:50 EST ,
--- NOTE | 2022-02-13 23:07 | CT_ITS ---
INDICATION: fall EXAMINATION: CT CERVICAL SPINE - CT Spine Cervical W/O Contrast Injection TECHNIQUE: Helically acquired images were obtained of the cervical spine. 2D reformatted images were reviewed. A radiation dose optimization technique was used for this scan. COMPARISON: None. FINDINGS: ALIGNMENT: Normal. VERTEBRAL BODIES: No fracture or acute abnormality. DISC SPACES: Intervertebral disc space narrowing and disc osteophyte complex formation and uncovertebral facet hypertrophy between C4 and C7 contributing to mild spinal canal and neural foraminal narrowing.. POSTERIOR ELEMENTS: Normal. SPINAL CANAL: Normal. PARASPINAL SOFT TISSUES: Normal. LUNG APICES: Centrilobular micronodules in the right upper lobe. OTHER: None. CT/Spine Cervical without Contras IMPRESSION: No acute fracture or subluxation. Right upper lobe centrilobular micronodules, suggestive of infectious bronchiolitis. Electronically Signed: Jeramie Carter MD at 23:56 EST ,
--- NOTE | 2022-02-13 23:08 | ED.VIS.FALL ---
HPI HPI - Fall History of Present Illness Chief Complaint: Fall Informant: patient Occured/Mechanism Occurred: Today Narrative Narrative: Patient has a history of Alzheimer's disease. She was found on the floor in her assisted living apartment today. She does not know why she fell. She complains of pain to her head as well as her left arm. [facility] Medical History Alzheimer's dementia Anxiety Asthma High cholesterol Home Medications ammonium lactate 12 % topical cream 1 applic topical BID 01/18/22 [History Last Taken 01/18/22] aspirin 81 mg tablet,delayed release 81 mg PO DAILY HEART HEALTH 01/18/22 [History Last Taken 01/18/22] atorvastatin 10 mg tablet 10 mg PO QHS CHOLESTEROL 01/18/22 [History Last Taken 01/17/22] buspirone 30 mg tablet 30 mg PO BID ANXIETY 01/18/22 [History Last Taken 01/18/22] cetirizine 10 mg tablet (Zyrtec) 10 mg PO DAILY ALLERGIES 01/18/22 [History Last Taken 01/18/22] clonazepam 0.5 mg tablet 0.5 mg PO TID ANXIETY 01/18/22 [History Last Taken 01/18/22] cyanocobalamin (vitamin B-12) 500 mcg tablet (Vitamin B-12) 500 mcg PO DAILY SUPPLEMENT 01/18/22 [History Last Taken 01/18/22] donepezil 10 mg tablet 10 mg PO DAILY ALZHEIMERS 01/18/22 [History Last Taken 01/18/22] lamotrigine 100 mg tablet 100 mg PO DAILY BIPOLAR DISORDER 01/18/22 [History Last Taken 01/18/22] lamotrigine 100 mg tablet 100 mg PO QHS BIPOLAR DISORDER 01/18/22 [History Last Taken 01/17/22] lamotrigine 50 mg tablet,extended release 24 hr 50 mg PO DAILY BIPOLAR DISORDER 01/18/22 [History Last Taken 01/18/22] lidocaine 4 % topical patch (Lidocaine Pain Relief) 1 patch topical DAILY PAIN 01/18/22 [History Last Taken 01/18/22] memantine 10 mg tablet 20 mg PO DAILY ALZHEIMERS 01/18/22 [History Last Taken 01/18/22] multivitamin 1 tab PO DAILY HEALTH MAINTENANCE 01/18/22 [History Last Taken 01/18/22] naproxen sodium 220 mg tablet (Aleve) 220 mg PO BID PAIN 01/18/22 [History Last Taken 01/18/22] oxybutynin chloride 10 mg tablet,extended release 24 hr 10 mg PO BID BLADDER DYSFUNCTION 01/18/22 [History Last Taken 01/18/22] primidone 50 mg tablet 150 mg PO BID TREMORS 01/18/22 [History Last Taken 01/18/22] propranolol 20 mg tablet 20 mg PO BID HYPERTENSION 01/18/22 [History Last Taken 01/18/22] sennosides 8.6 mg-docusate sodium 50 mg tablet (Senna Plus) 1 tab PO BID CONSTIPATION 01/18/22 [History Last Taken 01/18/22] sertraline 50 mg tablet (Zoloft) 50 mg PO QHS DEPRESSION/ANXIETY 01/18/22 [History Last Taken 01/17/22] trazodone 150 mg tablet 225 mg PO QHS INSOMNIA 01/18/22 [History Last Taken 01/17/22] venlafaxine 150 mg capsule,extended release 24 hr (Effexor XR) 150 mg PO DAILY ANXIETY 01/18/22 [History Last Taken 01/18/22] venlafaxine 75 mg capsule,extended release 24 hr (Effexor XR) 75 mg PO DAILY ANXIETY 01/18/22 [History Last Taken 01/18/22] Allergy/AdvReac Type Severity Reaction Status Date / Time codeine Allergy Upset Verified 02/13/22 22:16 Stomach Social History Smoking Status: Never smoker ROS ROS ED Constitutional Constitutional ED: Denies chills or fever(s) Eyes Eyes: Denies change in vision or discharge from eye(s) ENT ENT ED: Denies discharge from eye(s), rhinorrhea or sore throat Cardiovascular Cardiovascular: Denies chest pain or palpitations Respiratory/Chest Respiratory/Chest: Denies cough or dyspnea Gastrointestinal Gastrointestinal: Denies abdominal pain, diarrhea, nausea or vomiting Genitourinary Genitourinary ED: Denies dysuria Musculoskeletal Musculoskeletal: Reports extremity pain and neck pain; Denies back pain Integumentary Reports Abrasions; Denies rash Neurologic Neurologic: Reports headache(s) and weakness Psychiatric Psychiatric: Denies anxiety or depression Allergic/Immunologic Allergic/Immunologic ED: Denies lip swelling or urticaria EXAM Physical Exam Narrative Exam Narrative: Patient lying in bed no acute distress. Answers questions appropriately. Const Vital Signs: 02/13/22 22:11 02/14/22 00:14 02/14/22 00:57 Temperature 97.6 F L Temperature Source Temporal Pulse Rate 50 L Respiratory Rate 17 Respiratory Effort Normal Respiratory Depth Normal Respiratory Pattern Normal Blood Pressure 149/64 H Blood Pressure Mean 92 Pulse Ox 99 97 Oxygen Delivery Method Room Air Room Air 02/14/22 01:29 Temperature Temperature Source Pulse Rate 53 L Respiratory Rate 22 H Respiratory Effort Respiratory Depth Respiratory Pattern Blood Pressure Blood Pressure Mean Pulse Ox Oxygen Delivery Method Positive well nourished and well developed General Appearance ED: well developed HEENT Reports normocephalic and head/scalp atraumatic Eyes PERRL and EOMs intact bilaterally Neck supple Chest Wall inspection of chest normal and palpation of chest normal Resp normal respiratory effort and clear to auscultation bilaterally Cardio regular rhythm Rate: bradycardia GI normal to inspection, nondistended, normoactive bowel sounds Palpation: soft Back/Spine Back/Spine Narrative: Mild C-spine tenderness palpation. No step-offs. Extremity Extremity Narrative: Small bruise noted to the left knee with no reproducible tenderness. Slight tenderness to the left hip with movement. Neuro no sensory deficits noted Neuro Narrative: No focal neurologic deficits. Sensorium / Orientation: alert Psych mental status grossly normal Skin Skin Narrative: 2 skin tears noted to the left arm. Over the left humeral area she is a 2 x 2 centimeter superficial skin tear. Over the left forearm there is a 5 x 5 cm superficial skin tear. MDM MDM MDM Narrative Medical decision making narrative: CT scan of the head and C-spine obtained. X-rays of the humerus, left forearm, pelvis with hips obtained. Lab work and urinalysis ordered. Lab Data Attestation: I reviewed the patient's lab results. Labs: Laboratory Results - last 24 hr 02/14/22 02/14/22 02/14/22 00:55 00:55 01:37 WBC 5.5 RBC 3.46 L Hgb 10.5 L Hct 35.2 L MCV 101.7 H MCH 30.3 MCHC 29.8 L RDW Std Deviation 48.1 H RDW Coeff of Krystal 12.9 Plt Count 201 MPV 10.8 Immature Gran % (Auto) 0.200 Neut % (Auto) 39.4 L Lymph % (Auto) 44.2 H Fergus % (Auto) 10.2 H Eos % (Auto) 5.3 H Baso % (Auto) 0.7 Absolute Neuts (auto) 2.2 Absolute Lymphs (auto) 2.42 Nucleated RBC % 0 Sodium 143 Potassium 3.7 Chloride 112 H Carbon Dioxide 27.0 Anion Gap 4 L BUN 9 Creatinine 0.64 Estim Creat Clear Calc 37.60 Est GFR (MDRD) Af Amer 117 Est GFR (MDRD) Non-Af 97 BUN/Creatinine Ratio 14.0 Glucose 87 Calcium 8.0 L Urine Color Yellow Urine Clarity Clear Urine pH 6.0 Ur Specific [place] 1.015 Urine Protein Negative Urine Glucose (UA) Normal Urine Ketones Negative Urine Occult Blood Negative Urine Nitrite Negative Urine Bilirubin Negative Urine Urobilinogen Normal Ur Leukocyte Esterase 25 H Urine RBC 0 SEEN Urine WBC 0 SEEN Ur Squamous Epith Cells 0 SEEN Urine Bacteria 0 SEEN Urine Mucus 0 SEEN Radiography Diagnostic Testing: Clinical Impression(s) from Imaging Studies Brain CT 02/13/22 23:07 IMPRESSION: No intracranial hemorrhage or depressed calvarial fracture. Electronically Signed: Jeramie Carter MD at 23:50 EST , Cervical Spine CT 02/13/22 23:07 IMPRESSION: No acute fracture or subluxation. Right upper lobe centrilobular micronodules, suggestive of infectious bronchiolitis. Electronically Signed: Jeramie Carter MD at 23:56 EST Reading Location ID and State: [facility] / ID Tel , Service support , Forearm X-Ray 02/13/22 23:09 IMPRESSION: No acute fracture or dislocation. Moderate osteophytic changes. Electronically Signed: Jeramie Carter MD at 23:37 EST Reading Location ID and State: [facility] / ID Tel , Service support , Humerus X-Ray 02/13/22 23:09 IMPRESSION: No acute fracture or dislocation. Electronically Signed: Jeramie Carter MD at 23:39 EST , Hip/Pelvis X-Ray 02/13/22 23:20 IMPRESSION: No acute fracture or dislocation. Electronically Signed: Jeramie Carter MD at 23:40 EST , Treatment and Re-Evaluation Narrative: CT scan of the head and C-spine reveal no acute findings. X-rays of the left humerus and forearm per my interpretation reveal no acute bony fracture. Radiology interpretation is reviewed and agrees. Pelvis and hip x-ray per my interpretation reveals no fracture. Radiology interpretation reviewed and agrees. Lab work and urinalysis largely unremarkable. I am advised by nursing staff that her ECF is transitioning her to the correction portion of the unit as opposed to the assisted living as she has had multiple falls this week. She will be discharged to the halfway. Discharge Plan Triage Chief Complaint: Fall ED Provider: Laura Malave Dx/Rx/DC Orders Clinical Impression: Fall Instructions: ED Fall Prevention Prescriptions: No Action multivitamin Tablet 1 tab PO DAILY primidone 50 mg Tablet 150 mg PO BID venlafaxine [Effexor XR] 75 mg Capsule,Extended Release 24hr 75 mg PO DAILY lidocaine [Lidocaine Pain Relief] 4 % Adhesive Patch,Medicated 1 patch TOPICAL DAILY cetirizine [Zyrtec] 10 mg Tablet 10 mg PO DAILY atorvastatin 10 mg Tablet 10 mg PO QHS oxybutynin chloride 10 mg Tablet Extended Release 24hr 10 mg PO BID donepezil 10 mg Tablet 10 mg PO DAILY clonazepam 0.5 mg Tablet 0.5 mg PO TID sennosides-docusate sodium [Senna Plus] 8.6-50 mg Tablet 1 tab PO BID venlafaxine [Effexor XR] 150 mg Capsule,Extended Release 24hr 150 mg PO DAILY aspirin [Aspirin Low-Strength] 81 mg Tablet,Delayed Release (Dr/Ec) 81 mg PO DAILY cyanocobalamin (vitamin B-12) [Vitamin B-12] 500 mcg Tablet 500 mcg PO DAILY trazodone 150 mg Tablet 225 mg PO QHS buspirone 30 mg Tablet 30 mg PO BID naproxen sodium [Aleve] 220 mg Tablet 220 mg PO BID ammonium lactate 12 % Cream 1 applic TOPICAL BID propranolol 20 mg Tablet 20 mg PO BID sertraline [Zoloft] 50 mg Tablet 50 mg PO QHS lamotrigine 100 mg Tablet 100 mg PO DAILY lamotrigine 100 mg Tablet 100 mg PO QHS memantine 10 mg Tablet 20 mg PO DAILY lamotrigine 50 mg Tablet Extended Release 24hr 50 mg PO DAILY Primary Care Provider: Addi Tatum Referrals: Addi Tatum DO [Primary Care Provider] - Disposition Disposition: Assisted Facility Discharge Location: [facility]
--- NOTE | 2022-02-13 23:09 | RAD_ITS ---
INDICATION: injury EXAMINATION/TECHNIQUE: X-RAY - LEFT XR Forearm 2 Views 2 VIEWS COMPARISON: None. FINDINGS: SOFT TISSUES: No soft tissue swelling or gas. No radiopaque foreign body. BONES/JOINTS: No acute fracture or subluxation.. Normal alignment. Moderate joint space narrowing and osteophytosis in the first carpometacarpal joint space. RAD/Forearm 2 Views IMPRESSION: No acute fracture or dislocation. Moderate osteophytic changes. Electronically Signed: Jeramie Carter MD at 23:37 EST ,
--- NOTE | 2022-02-13 23:09 | RAD_ITS ---
INDICATION: injury EXAMINATION/TECHNIQUE: X-RAY - LEFT XR Humerus Min 2 Views 2 VIEWS COMPARISON: None. FINDINGS: SOFT TISSUES: Soft tissue calcification overlying the lateral mid humerus. No soft tissue swelling or gas. No radiopaque foreign body. BONES/JOINTS: No acute fracture or subluxation.. Normal alignment. Preservation of the joint space.. No sclerotic or destructive changes observed. RAD/Humerus min 2 Views IMPRESSION: No acute fracture or dislocation. Electronically Signed: Jeramie Carter MD at 23:39 EST ,
--- NOTE | 2022-02-13 23:20 | RAD_ITS ---
INDICATION: fall EXAMINATION/TECHNIQUE: X-RAY - BILATERAL XR Hips Bilateral with Pelvis when performed; 2 Views 5 VIEWS COMPARISON: None. FINDINGS: SOFT TISSUES: No soft tissue swelling or gas. No radiopaque foreign body. BONES/JOINTS: No acute fracture or subluxation.. Normal alignment. Preservation of the joint space.. No sclerotic or destructive changes observed. RAD/Hips B/L min 2 views w/ Pelvis IMPRESSION: No acute fracture or dislocation. Electronically Signed: Jeramie Carter MD at 23:40 EST ,
[2022-02-14 00:14] VITALS: O2SAT 97
[2022-02-14 01:04] LABS: Absolute Lymphocyte Count 2.42 X10^3/uL (0.83-4.51); Absolute Neutrophil Count 2.2 X10^3/uL (2.0-7.7); Basophil# 0.04 X10^3/uL; Basophil% 0.7 % (0-1); Eosinophil# 0.29 X10^3/uL; Eosinophils% 5.3 % (0-5); Hematocrit 35.2 % (37-47); Hemoglobin 10.5 g/dL (12.0-15.0); Lymphocyte # 2.42 X10^3/ul (0.83-4.51); Lymphocyte % 44.2 % (19-41); Mean Corp Hgb Conc 29.8 g/dL (32-36); Mean Corpuscular Hgb 30.3 pg (27.0-32.0); Mean Corpuscular Volume 101.7 fL (81-99); Mean Platelet Vol. 10.8 fl (6.2-12.0); Monocyte# 0.56 X10^3/uL; Monocyte% 10.2 % (0-10); NRBC Flagged by Analyzer 0 % (0-5); Neutrophil # 2.15 X10^3/uL (2.7-7.7); Neutrophil % 39.4 % (47-70); Platelet Count 201 K/mm3 (150-450); RBC Distribution Width CV 12.9 % (11.6-14.6); RBC Distribution Width SD 48.1 fl (35.1-43.9); Red Blood Count 3.46 M/mm3 (4.2-5.4); White Blood Count 5.5 K/mm3 (4.4-11.0)
[2022-02-14 01:20] LABS: Anion Gap 4 (5-15); BUN 9 mg/dL (7-18); Chloride 112 mmol/L (98-107); Creatinine, Serum 0.64 mg/dL (0.55-1.02); EST Glomerular Filtration Rate 97 mL/min (>60); Est Glom Filt Rate - Afr Amer 117 mL/min (>60); Glucose 87 mg/dL (74-106); Potassium 3.7 mmol/L (3.5-5.1); Sodium Level 143 mmol/L (136-145)
[2022-02-14 01:29] VITALS: PULSE 53; RESP 22
[2022-02-14 01:41] LABS: Bacteria 0 SEEN /hpf (None Seen); Mucous, Urine 0 SEEN /hpf (<or=2+); Red Blood Cells-Urine 0 SEEN /hpf (0-5); Squamous Epithelial Cells - UA 0 SEEN /hpf (5-10); White Blood Cells 0 SEEN /hpf (0-5)
[2022-02-14 01:43] LABS: Color, Urine Yellow (Yellow); Glucose, Dipstick Normal (Normal); Ketone-Dipstick Negative (Negative); Leukocyte Esterase-Dipstick 25 /ul (Negative); Nitrite-Dipstick Negative (Negative); Occult Blood-Urine Negative /ul (Negative); Protein-Dipstick Negative (Negative); Specific Gravity, Urine 1.015 (1.002-1.030); Urine Bilirubin Dipstick Negative (Negative); Urine Clarity Clear (Clear); Urine Urobilinogen Normal (Normal)
--- NOTE | 2022-02-14 02:06 | NURSING ---
tried to give update to sister who called but no one answered on the other line when this nurse picked up x2 attempts.
--- NOTE | 2022-02-14 02:15 | NURSING ---
Hue updated and wants called back -- she is in demographic
--- NOTE | 2022-02-14 02:54 | ED.RN ---
Called [facility] as we were by the nurse that sent her in that she was not to return to [facility] and was getting a room on the assisted side. This RN calls over to [facility], spoke with Alina who states the patient has to return to the [facility] and social work with work with her on tuesday. Per Betty there are no nurses to call report to at night at [facility], report given to Betty.
--- NOTE | 2022-02-14 02:54 | ED.RN ---
Sister updated and aware going back to [place] since skilled states they are not able to accept until SW sees patient in the am. encouraged to call [facility] for concerns regarding this decision.
== END 2022-02-14 06:25 | disposition skilled nursing facility (03) ==
PROVIDERS: Emergency Provider Emergency Medicine; PCP Family Medicine; Visit Provider Emergency Medicine
DX: G30.9 Alzheimer's disease, unspecified (principal); E78.00 Pure hypercholesterolemia, unspecified; R29.6 Repeated falls
CPT/HCPCS: 70450; 72125; 73060; 73090; 73521; 80048; 81001; 85025; 99285

== ENCOUNTER → 2022-03-29 | Outpatient (REF) | payer MEDICARE, MEDICAID, SELFPAY ==
[2022-03-29 10:24] LABS: Absolute Lymphocyte Count 2.37 X10^3/uL (0.83-4.51); Absolute Neutrophil Count 2.2 X10^3/uL (2.0-7.7); Basophil# 0.05 X10^3/uL; Basophil% 0.9 % (0-1); Eosinophil# 0.38 X10^3/uL; Eosinophils% 6.7 % (0-5); Hemoglobin 11.4 g/dL (12.0-15.0); Lymphocyte # 2.37 X10^3/ul (0.83-4.51); Lymphocyte % 41.9 % (19-41); Mean Corp Hgb Conc 30.8 g/dL (32-36); Mean Corpuscular Hgb 30.7 pg (27.0-32.0); Mean Corpuscular Volume 99.7 fL (81-99); Mean Platelet Vol. 10.5 fl (6.2-12.0); Monocyte# 0.68 X10^3/uL; NRBC Flagged by Analyzer 0 % (0-5); Neutrophil # 2.17 X10^3/uL (2.7-7.7); Neutrophil % 38.3 % (47-70); Platelet Count 277 K/mm3 (150-450); RBC Distribution Width CV 13.4 % (11.6-14.6); Red Blood Count 3.71 M/mm3 (4.2-5.4); White Blood Count 5.7 K/mm3 (4.4-11.0)
[2022-03-29 10:44] LABS: Color, Urine Yellow (Yellow); Glucose, Dipstick Normal (Normal); Ketone-Dipstick Negative (Negative); Leukocyte Esterase-Dipstick 25 /ul (Negative); Nitrite-Dipstick Negative (Negative); Occult Blood-Urine Negative /ul (Negative); Protein-Dipstick Negative (Negative); Urine Bilirubin Dipstick Negative (Negative); Urine Clarity Sl. Cloudy (Clear); Urine Urobilinogen Normal (Normal)
[2022-03-29 10:48] LABS: Anion Gap 6 (5-15); BUN 11 mg/dL (7-18); BUN/Creat Ratio 15.4 RATIO (10-20); Calcium,Total 8.5 mg/dL (8.5-10.1); Chloride 108 mmol/L (98-107); Creatinine, Serum 0.71 mg/dL (0.55-1.02); EST Glomerular Filtration Rate 86 mL/min (>60); Est Glom Filt Rate - Afr Amer 104 mL/min (>60); Glucose 81 mg/dL (74-106); Potassium 3.9 mmol/L (3.5-5.1); Sodium Level 144 mmol/L (136-145)
== END ==
LOC: OLS.SW 05:00
PROVIDERS: PCP Family Medicine; Visit Provider Internal Medicine
DX: R25.1 Tremor, unspecified (principal); R41.82 Altered mental status, unspecified; E46 Unspecified protein-calorie malnutrition; E55.9 Vitamin D deficiency, unspecified
CPT/HCPCS: 36415; 80048; 81002; 85025; 87077; 87086; 87088; 87186

== ENCOUNTER → 2022-03-30 | Outpatient (REF) | payer MEDICARE, MEDICAID, SELFPAY | LOC: OLS.SW 05:00 | PROVIDERS: PCP Family Medicine; Visit Provider Internal Medicine | DX: E03.9 Hypothyroidism, unspecified (principal) | CPT/HCPCS: 36415; 84443 ==

== ENCOUNTER 2022-04-15 21:43 | Emergency (ER) | payer MEDICARE, MEDICAID, SELFPAY ==
[2022-04-15 21:44] VITALS: BP 145/68; PULSE 63; RESP 18; TEMP 36.4; BMI 20.7
[2022-04-15 21:48] VITALS: O2SAT 100
--- NOTE | 2022-04-15 21:59 | CT_ITS ---
INDICATION: polytrauma EXAMINATION: CT Spine Thoracic W/O Contrast Injection TECHNIQUE: Helically acquired images were obtained of the thoracic spine. 2D reformats were reviewed. A radiation dose optimization technique was used for this scan. IV Contrast dosage and agent: None. COMPARISON: None. FINDINGS: VERTEBRAE: Acute on chronic severe compression deformity of T11. Minimal retropulsion of bony fragments.No discrete lytic or blastic abnormality observed. VERTEBRAL ALIGNMENT: Unremarkable. There is exaggeration of the normal thoracic kyphosis. DISCS: Moderate multilevel degenerative disc disease and spondylosis.. VISUALIZED THORAX: Visualized thoracic aorta is nondilated. Peripheral based clustered nodular opacities with surrounding groundglass opacity in the bilateral lower lobes. CT/Spine Thoracic without Contras IMPRESSION: Acute on chronic severe compression deformity of T11. Minimal retropulsion of bony fragments. Peripheral based clustered nodular opacities with surrounding groundglass opacity in the bilateral lower lobes. Differential includes but is not limited to contusions and atypical infection. Moderate multilevel degenerative disc disease and spondylosis. Electronically Signed: Jackson Garcia MD at 23:05 EST ,
--- NOTE | 2022-04-15 21:59 | CT_ITS ---
INDICATION: polytrauma EXAMINATION: CT LUMBAR SPINE - CT Spine Lumbar W/O Contrast Injection TECHNIQUE: Helically acquired images were obtained of the lumbar spine. 2D reformats were reviewed. A radiation dose optimization technique was used for this scan. IV Contrast dosage and agent: None. COMPARISON: 02/01/2022. FINDINGS: VERTEBRAE: No fracture or traumatic subluxation. No discrete lytic or blastic abnormality observed. 2 mm anterolisthesis L4 on L5. DISCS and SPINAL CANAL: Moderate multilevel degenerative disc disease and spondylosis. No critical stenosis. VISUALIZED ABDOMEN: Visualized abdominal aorta is not dilated. There is no retroperitoneal adenopathy. Old left incompletely healed 12th posterior rib fracture. CT/Spine Lumbar without Contrast IMPRESSION: No evidence of acute lumbar spinal fracture. Old left incompletely healed 12th posterior rib fracture. Grade 1 anterolisthesis L4 on L5. Moderate multilevel degenerative disc disease and spondylosis. Electronically Signed: Jackson Garcia MD at 22:57 EST ,
--- NOTE | 2022-04-15 21:59 | CT_ITS ---
EXAMINATION : Head CT w/out contrast HISTORY : altered mental status COMPARISON : 02/13/2022. TECHNIQUE : Multiple contiguous axial images were obtained from the skull base to the vertex without intravenous contrast. A radiation dose optimization technique was used for this scan. FINDINGS : There is no evidence for acute intracranial hemorrhage, mass effect, or midline shift. There is no extra-axial fluid collection. There are periventricular white matter changes consistent with chronic microvascular ischemic disease. There is sulcal widening and ventricular enlargement consistent with cerebral atrophy. There is normal coleman-white differentiation, without CT evidence of acute ischemia or infarct. The skull base and calvarium are unremarkable. The orbits are unremarkable. The paranasal sinuses are clear. The mastoid air cells are well-aerated. The soft tissues are unremarkable. CT/Brain/Head without Contrast IMPRESSION: No acute intracranial abnormality. Chronic involutional and ischemic changes of the brain. Electronically Signed: Jackson Garcia MD at 22:53 EST ,
--- NOTE | 2022-04-15 21:59 | CT_ITS ---
INDICATION: polytrauma EXAMINATION: CT CERVICAL SPINE - CT Spine Cervical W/O Contrast Injection TECHNIQUE: Helically acquired images were obtained of the cervical spine. 2D reformatted images were reviewed. A radiation dose optimization technique was used for this scan. IV Contrast dosage and agent: None. COMPARISON: 02/13/2022. FINDINGS: VERTEBRAE: No fracture or traumatic subluxation. No discrete lytic or blastic abnormality. Normal alignment. Normal craniocervical junction and cervicothoracic junction. DISCS and SPINAL CANAL: Moderate multilevel degenerative disc disease and spondylosis. No critical stenosis. NECK SOFT TISSUES: No prevertebral soft tissue swelling. There is no cervical adenopathy. LUNG APICES: Clear. CT/Spine Cervical without Contras IMPRESSION: No evidence of acute cervical spinal fracture or spondylolisthesis. Moderate multilevel degenerative disc disease and spondylosis. Electronically Signed: Jackson Garcia MD at 22:54 EST ,
--- NOTE | 2022-04-15 21:59 | EKG12_ITS ---
Test Reason : DYSRHYTHMIA Blood Pressure : / mmHG Vent. Rate : 059 BPM Atrial Rate : 059 BPM P-R Int : 136 ms QRS Dur : 074 ms QT Int : 430 ms P-R-T Axes : 056 -16 050 degrees QTc Int : 425 ms Sinus bradycardia Otherwise normal ECG Confirmed by DEXTER PANDA, CYNTHIA ([id number]), photographic editor JULIETTE TRAN ([id number]) on 04/19/2022 9:14:16 AM Referred By: NOEL Confirmed By:CYNTHIA RENTERIA MD
[2022-04-15 22:12] LABS: Absolute Lymphocyte Count 2.54 X10^3/uL (0.83-4.51); Absolute Neutrophil Count 3.9 X10^3/uL (2.0-7.7); Basophil# 0.07 X10^3/uL; Basophil% 0.9 % (0-1); Eosinophil# 0.34 X10^3/uL; Eosinophils% 4.3 % (0-5); Hematocrit 34.7 % (37-47); Lymphocyte # 2.54 X10^3/ul (0.83-4.51); Lymphocyte % 32.4 % (19-41); Mean Corp Hgb Conc 31.7 g/dL (32-36); Mean Corpuscular Hgb 30.8 pg (27.0-32.0); Mean Corpuscular Volume 97.2 fL (81-99); Mean Platelet Vol. 9.8 fl (6.2-12.0); Monocyte# 0.95 X10^3/uL; Monocyte% 12.1 % (0-10); NRBC Flagged by Analyzer 0 % (0-5); Neutrophil # 3.92 X10^3/uL (2.7-7.7); Platelet Count 390 K/mm3 (150-450); RBC Distribution Width CV 12.8 % (11.6-14.6); RBC Distribution Width SD 44.9 fl (35.1-43.9); Red Blood Count 3.57 M/mm3 (4.2-5.4); White Blood Count 7.8 K/mm3 (4.4-11.0)
--- NOTE | 2022-04-15 22:16 | EX.ED.DYSGE1 ---
HPI History of Present Illness Chief Complaint: Mental Status Change Informant: EMS and SNF Narrative Narrative: Patient brought in by EMS from [facility] for reported altered mental status throughout the day. History of Alzheimer dementia however reports baseline ANO x4. Reports had multiple falls today and now currently only alert to herself. Record she is on aspirin from anticoagulation medicines. Patient currently reports pain to her back. No other complaints at this time. Blood glucose was in the 100s per EMS. Reported that her clonazepam 0.5 mg was recently increased to 4 times daily from 3 times daily. [facility] Medical History Alzheimer's dementia Anxiety Asthma High cholesterol Home Medications ammonium lactate 12 % topical cream 1 applic topical BID 01/18/22 [History Last Taken 01/18/22] aspirin 81 mg tablet,delayed release 81 mg PO DAILY HEART HEALTH 01/18/22 [History Last Taken 01/18/22] atorvastatin 10 mg tablet 10 mg PO QHS CHOLESTEROL 01/18/22 [History Last Taken 01/17/22] buspirone 30 mg tablet 30 mg PO BID ANXIETY 01/18/22 [History Last Taken 01/18/22] cetirizine 10 mg tablet (Zyrtec) 10 mg PO DAILY ALLERGIES 01/18/22 [History Last Taken 01/18/22] clonazepam 0.5 mg tablet 0.5 mg PO TID ANXIETY 01/18/22 [History Last Taken 01/18/22] cyanocobalamin (vitamin B-12) 500 mcg tablet (Vitamin B-12) 500 mcg PO DAILY SUPPLEMENT 01/18/22 [History Last Taken 01/18/22] donepezil 10 mg tablet 10 mg PO DAILY ALZHEIMERS 01/18/22 [History Last Taken 01/18/22] lamotrigine 100 mg tablet 100 mg PO DAILY BIPOLAR DISORDER 01/18/22 [History Last Taken 01/18/22] lamotrigine 100 mg tablet 100 mg PO QHS BIPOLAR DISORDER 01/18/22 [History Last Taken 01/17/22] lamotrigine 50 mg tablet,extended release 24 hr 50 mg PO DAILY BIPOLAR DISORDER 01/18/22 [History Last Taken 01/18/22] lidocaine 4 % topical patch (Lidocaine Pain Relief) 1 patch topical DAILY PAIN 01/18/22 [History Last Taken 01/18/22] memantine 10 mg tablet 20 mg PO DAILY ALZHEIMERS 01/18/22 [History Last Taken 01/18/22] multivitamin 1 tab PO DAILY HEALTH MAINTENANCE 01/18/22 [History Last Taken 01/18/22] naproxen sodium 220 mg tablet (Aleve) 220 mg PO BID PAIN 01/18/22 [History Last Taken 01/18/22] oxybutynin chloride 10 mg tablet,extended release 24 hr 10 mg PO BID BLADDER DYSFUNCTION 01/18/22 [History Last Taken 01/18/22] primidone 50 mg tablet 150 mg PO BID TREMORS 01/18/22 [History Last Taken 01/18/22] propranolol 20 mg tablet 20 mg PO BID HYPERTENSION 01/18/22 [History Last Taken 01/18/22] sennosides 8.6 mg-docusate sodium 50 mg tablet (Senna Plus) 1 tab PO BID CONSTIPATION 01/18/22 [History Last Taken 01/18/22] sertraline 50 mg tablet (Zoloft) 50 mg PO QHS DEPRESSION/ANXIETY 01/18/22 [History Last Taken 01/17/22] trazodone 150 mg tablet 225 mg PO QHS INSOMNIA 01/18/22 [History Last Taken 01/17/22] venlafaxine 150 mg capsule,extended release 24 hr (Effexor XR) 150 mg PO DAILY ANXIETY 01/18/22 [History Last Taken 01/18/22] venlafaxine 75 mg capsule,extended release 24 hr (Effexor XR) 75 mg PO DAILY ANXIETY 01/18/22 [History Last Taken 01/18/22] Allergy/AdvReac Type Severity Reaction Status Date / Time codeine Allergy Upset Verified 02/13/22 22:16 Stomach Social History Smoking Status: Never smoker ROS ROS ED Review of Systems ROS Unobtainable: due to mental status Musculoskeletal Musculoskeletal: Reports back pain EXAM Physical Exam Const Vital Signs: 04/15/22 21:44 04/15/22 21:48 04/16/22 00:14 Temperature 97.5 F L Temperature Source Temporal Pulse Rate 63 Respiratory Rate 18 Blood Pressure 145/68 H Blood Pressure Mean 93 Pulse Ox 100 97 Oxygen Delivery Method Room Air Room Air Positive cachectic Constitutional Narrative: Nontoxic, following commands moving all 4 extremities. General Appearance ED: cachectic and NAD Nutritional Appearance: cachectic HEENT Reports moist mucous membranes HEENT Narrative: No signs of head trauma. normocephalic and atraumatic Eyes PERRL, EOMs intact bilaterally and conjunctivae normal General Eye ED: Yes normal appearance of both eyes Neck no lymphadenopathy and supple General: Negative for tenderness Chest Wall inspection of chest normal and palpation of chest normal Chest Narrative: No chest wall tenderness. Chest: Negative for tenderness Resp normal respiratory effort and normal air movement Effort and Inspection: symmetric chest movement; Negative for respiratory distress Cardio regular rate, regular rhythm and no murmurs Peripheral Pulses: pulses 2+ throughout GI normal to inspection, nondistended, normoactive bowel sounds and non-tender Palpation: Negative for guarding or rebound tenderness present Back/Spine no CVA tenderness Back/Spine Narrative: Kyphosis to the thoracic spine, tender mid lower thoracic and lumbar spine with no step-offs. Extremity normal to inspection Extremity Narrative: Moving all 4 extremities negative logroll bilateral lower extremities. General Extremety ED: Negative for edema or tenderness General Extremity: Negative for edema Neuro oriented x3 and no sensory deficits noted Sensorium / Orientation: awake and alert Skin no rashes or lesions noted and no wounds MDM MDM MDM Narrative Medical decision making narrative: Initial reported altered mental status with her dementia history stating she is initially baseline A&O x4 per report. Work-up initiated for altered mental status with differentials pneumonia UTI electrolyte abnormalities. Also medication induced with increasing Klonopin. She is moving all extremities therefore less likely stroke in nature. She had multiple falls related reporting back pain. Work-up was initiated for potential fractures for differential versus intracranial hemorrhage. Laboratory studies normal white count hemoglobin 11. Electrolytes were normal creatinine normal urine without infection. 1 view chest x-ray interpreted myself read by radiology possible infiltrative changes in the right clinical scenario. She is not hypoxic there is been no noted cough. Therefore less likely clinical pneumonia. 1 view pelvis also treat myself and read by radiology negative for any fractures. Trauma scans head and neck were negative per radiology. CT scan lumbar thoracic spine also obtained. Lumbar negative however on thoracic spine notes concern for acute on chronic T11 fracture. In interim nursing did discuss with the facility states she is baseline demented not alert and oriented x4. With her known dementia history, she has acute on chronic T11 fracture. She is moving all 4 extremities. With patient receiving care at nursing facility she is not in any intractable pain. She will be discharged back to her facility with continue management there. Lab Data Attestation: I reviewed the patient's lab results. Labs: Laboratory Results - last 24 hr 04/15/22 04/15/22 04/15/22 21:58 21:58 21:58 WBC 7.8 RBC 3.57 L Hgb 11.0 L Hct 34.7 L MCV 97.2 MCH 30.8 MCHC 31.7 L RDW Std Deviation 44.9 H RDW Coeff of Krystal 12.8 Plt Count 390 MPV 9.8 Immature Gran % (Auto) 0.300 Neut % (Auto) 50.0 Lymph % (Auto) 32.4 [place] % (Auto) 12.1 H Eos % (Auto) 4.3 Baso % (Auto) 0.9 Absolute Neuts (auto) 3.9 Absolute Lymphs (auto) 2.54 Nucleated RBC % 0 PT 13.5 INR 1.1 APTT 29.1 Sodium 140 Potassium 4.5 Chloride 102 Carbon Dioxide 32.0 Anion Gap 6 BUN 24 H Creatinine 0.85 Estim Creat Clear Calc 44.24 Est GFR (MDRD) Af Amer 85 Est GFR (MDRD) Non-Af 70 BUN/Creatinine Ratio 28.1 H Glucose 100 Calcium 9.0 Total Bilirubin 0.20 AST 18 ALT 15 Alkaline Phosphatase 92 Total Protein 7.1 Albumin 3.5 Globulin 3.6 Albumin/Globulin Ratio 1.0 Urine Color Urine Clarity Urine pH Ur Specific [place] Urine Protein Urine Glucose (UA) Urine Ketones Urine Occult Blood Urine Nitrite Urine Bilirubin Urine Urobilinogen Ur Leukocyte Esterase Urine RBC Urine WBC Ur Squamous Epith Cells Urine Bacteria Urine Mucus 04/15/22 22:17 WBC RBC Hgb Hct MCV MCH MCHC RDW Std Deviation RDW Coeff of Krystal Plt Count MPV Immature Gran % (Auto) Neut % (Auto) Lymph % (Auto) [place] % (Auto) Eos % (Auto) Baso % (Auto) Absolute Neuts (auto) Absolute Lymphs (auto) Nucleated RBC % PT INR APTT Sodium Potassium Chloride Carbon Dioxide Anion Gap BUN Creatinine Estim Creat Clear Calc Est GFR (MDRD) Af Amer Est GFR (MDRD) Non-Af BUN/Creatinine Ratio Glucose Calcium Total Bilirubin AST ALT Alkaline Phosphatase Total Protein Albumin Globulin Albumin/Globulin Ratio Urine Color Yellow Urine Clarity Clear Urine pH 5.0 Ur Specific [place] 1.020 Urine Protein 15 H Urine Glucose (UA) NEGATIVE Urine Ketones Negative Urine Occult Blood Negative Urine Nitrite Negative Urine Bilirubin Negative Urine Urobilinogen Normal Ur Leukocyte Esterase Negative Urine RBC 0 SEEN Urine WBC 0 SEEN Ur Squamous Epith Cells 0 SEEN Urine Bacteria 0 SEEN Urine Mucus 0 SEEN Radiography Diagnostic Testing: Clinical Impression(s) from Imaging Studies Brain CT 04/15/22 21:59 IMPRESSION: No acute intracranial abnormality. Chronic involutional and ischemic changes of the brain. Electronically Signed: Jackson Garcia MD at 22:53 EST Reading Location ID and State: [place] / [employer] , Service support , Cervical Spine CT 04/15/22 21:59 IMPRESSION: No evidence of acute cervical spinal fracture or spondylolisthesis. Moderate multilevel degenerative disc disease and spondylosis. Electronically Signed: Jackson Garcia MD at 22:54 EST Reading Location ID and State: [place] / [employer] , Service support , Lumbar Spine CT 04/15/22 21:59 IMPRESSION: No evidence of acute lumbar spinal fracture. Old left incompletely healed 12th posterior rib fracture. Grade 1 anterolisthesis L4 on L5. Moderate multilevel degenerative disc disease and spondylosis. Electronically Signed: Jackson Garcia MD at 22:57 EST Reading Location ID and State: [place] / [employer] , Service support , Thoracic Spine CT 04/15/22 21:59 IMPRESSION: Acute on chronic severe compression deformity of T11. Minimal retropulsion of bony fragments. Peripheral based clustered nodular opacities with surrounding groundglass opacity in the bilateral lower lobes. Differential includes but is not limited to contusions and atypical infection. Moderate multilevel degenerative disc disease and spondylosis. Electronically Signed: Jackson Garcia MD at 23:05 EST Reading Location ID and State: [place] / [employer] , Service support , Chest X-Ray 04/15/22 22:30 IMPRESSION: Few scattered patchy opacities could represent infection the correct clinical setting. Severe compression deformity of T11. Refer to thoracic CT report for more details. Electronically Signed: Jackson Garcia MD at 23:06 EST , Pelvis X-Ray 04/15/22 22:30 IMPRESSION: No evidence of displaced pelvic or hip fracture. Moderate degenerative changes of the bilateral hips. Electronically Signed: Jackson Garcia MD at 23:07 EST , EKG Initial EKG: Attestation: I personally reviewed and interpreted this EKG as follows: Comments: Sinus rate of 59, no ST or T wave changes. No signs of heart block. QTc 425. Discharge Plan Triage Chief Complaint: Mental Status Change ED Provider: David Ocampo Dx/Rx/DC Orders Clinical Impression: Compression fracture of T11 vertebra, Fall, Dementia Instructions: Compression Fx, ED DEMENTIA Alzheimer's, ED Fall with Uncertain Cause Prescriptions: No Action multivitamin Tablet 1 tab PO DAILY primidone 50 mg Tablet 150 mg PO BID venlafaxine [Effexor XR] 75 mg Capsule,Extended Release 24hr 75 mg PO DAILY lidocaine [Lidocaine Pain Relief] 4 % Adhesive Patch,Medicated 1 patch TOPICAL DAILY cetirizine [Zyrtec] 10 mg Tablet 10 mg PO DAILY atorvastatin 10 mg Tablet 10 mg PO QHS oxybutynin chloride 10 mg Tablet Extended Release 24hr 10 mg PO BID donepezil 10 mg Tablet 10 mg PO DAILY clonazepam 0.5 mg Tablet 0.5 mg PO TID sennosides-docusate sodium [Senna Plus] 8.6-50 mg Tablet 1 tab PO BID venlafaxine [Effexor XR] 150 mg Capsule,Extended Release 24hr 150 mg PO DAILY aspirin [Aspirin Low-Strength] 81 mg Tablet,Delayed Release (Dr/Ec) 81 mg PO DAILY cyanocobalamin (vitamin B-12) [Vitamin B-12] 500 mcg Tablet 500 mcg PO DAILY trazodone 150 mg Tablet 225 mg PO QHS buspirone 30 mg Tablet 30 mg PO BID naproxen sodium [Aleve] 220 mg Tablet 220 mg PO BID ammonium lactate 12 % Cream 1 applic TOPICAL BID propranolol 20 mg Tablet 20 mg PO BID sertraline [Zoloft] 50 mg Tablet 50 mg PO QHS lamotrigine 100 mg Tablet 100 mg PO DAILY lamotrigine 100 mg Tablet 100 mg PO QHS memantine 10 mg Tablet 20 mg PO DAILY lamotrigine 50 mg Tablet Extended Release 24hr 50 mg PO DAILY Primary Care Provider: Addi Tatum Referrals: Addi Tatum DO [Primary Care Provider] - Activity Restrictions/Additional Instructions: Acute on chronic T11 compression fracture found on imagings. CT scan head and neck lumbar spine negative. Urine negative for infection. Lab's are all stable. Disposition Disposition: Home, Self Care
[2022-04-15 22:20] LABS: International Normalized Ratio 1.1; Prothrombin Time (Protime)PT. 13.5 SECONDS (11.7-14.9)
[2022-04-15 22:21] LABS: Partial Thromboplast Time 29.1 Seconds (24.1-36.2)
[2022-04-15 22:24] LABS: Bacteria 0 SEEN /hpf (None Seen); Mucous, Urine 0 SEEN /hpf (<or=2+); Red Blood Cells-Urine 0 SEEN /hpf (0-5); Squamous Epithelial Cells - UA 0 SEEN /hpf (5-10); White Blood Cells 0 SEEN /hpf (0-5)
[2022-04-15 22:29] LABS: AST(SGOT) 18 U/L (15-37); Alanine Aminotransfer ALT/SGPT 15 U/L (13-56); Albumin, Serum 3.5 g/dL (3.2-5.0); Alkaline Phosphatase 92 U/L (45-117); Anion Gap 6 (5-15); BUN 24 mg/dL (7-18); BUN/Creat Ratio 28.1 RATIO (10-20); Chloride 102 mmol/L (98-107); Creatinine, Serum 0.85 mg/dL (0.55-1.02); EST Glomerular Filtration Rate 70 mL/min (>60); Est Glom Filt Rate - Afr Amer 85 mL/min (>60); Estimated Creatinine Clearance 44.24 ml/min; Globulin 3.6 g/dL (2.2-4.2); Glucose 100 mg/dL (74-106); Potassium 4.5 mmol/L (3.5-5.1); Protein, Total 7.1 g/dL (6.4-8.2); Sodium Level 140 mmol/L (136-145)
--- NOTE | 2022-04-15 22:30 | RAD_ITS ---
INDICATION: altered mental status EXAMINATION/TECHNIQUE: X-RAY - XR Chest 1 View COMPARISON: None. FINDINGS: Few scattered patchy opacities. Tortuous and calcified thoracic aorta. The heart is not enlarged. No pleural effusion or pneumothorax. Degenerative changes of the thoracic spine. Severe compression deformity of T11. RAD/Chest 1 View (Portable) IMPRESSION: Few scattered patchy opacities could represent infection the correct clinical setting. Severe compression deformity of T11. Refer to thoracic CT report for more details. Electronically Signed: Jackson Garcia MD at 23:06 EST ,
--- NOTE | 2022-04-15 22:30 | RAD_ITS ---
INDICATION: fall EXAMINATION/TECHNIQUE: X-RAY - XR Pelvis 1 or 2 Views COMPARISON: None. FINDINGS: PELVIC BONES: No displaced fracture, destructive or sclerotic lesions. Note that overlapping bowel shadows may however obscure fine detail. Sacroiliac joints are unremarkable. No widening of the pubic symphysis. HIPS: Moderate degenerative changes of the bilateral hips. No displaced fracture seen in this frontal view. SOFT TISSUES: No soft tissue swelling or gas. RAD/Pelvis 1 or 2 Views IMPRESSION: No evidence of displaced pelvic or hip fracture. Moderate degenerative changes of the bilateral hips. Electronically Signed: Jackson Garcia MD at 23:07 EST ,
[2022-04-15 22:33] LABS: Color, Urine Yellow (Yellow); Glucose, Dipstick NEGATIVE (Normal); Ketone-Dipstick Negative (Negative); Nitrite-Dipstick Negative (Negative); Protein-Dipstick 15 mg/dl (Negative); Urine Bilirubin Dipstick Negative (Negative); Urine Clarity Clear (Clear); Urine Urobilinogen Normal (Normal)
[2022-04-15 22:34] LABS: Leukocyte Esterase-Dipstick Negative /ul (Negative); Occult Blood-Urine Negative /ul (Negative)
[2022-04-16 00:14] VITALS: O2SAT 97
--- NOTE | 2022-04-16 02:38 | ED.RN ---
[facility] called and made aware patient is coming back at this time
[2022-04-16 03:26] VITALS: O2SAT 97
== END 2022-04-16 03:27 | disposition home or self-care (01) ==
PROVIDERS: Emergency Provider Emergency Medicine; PCP Family Medicine; Visit Provider Emergency Medicine
DX: M48.54XA Collapsed vertebra, not elsewhere classified, thoracic region, initial encounter for fracture (principal); F02.80 Dementia in other diseases classified elsewhere, unspecified severity, without behavioral disturbance, psychotic disturbance, mood disturbance, and anxiety; G30.9 Alzheimer's disease, unspecified; E78.00 Pure hypercholesterolemia, unspecified; J45.909 Unspecified asthma, uncomplicated; R41.82 Altered mental status, unspecified; Z79.82 Long term (current) use of aspirin; Z79.01 Long term (current) use of anticoagulants; W19.XXXA Unspecified fall, initial encounter
CPT/HCPCS: 70450; 71045; 72125; 72128; 72131; 72170; 80053; 81001; 85025; 85610; 85730; 87086; 93005; 99285; P9612; A4216

== ENCOUNTER → 2022-04-19 | Outpatient (REF) | payer MEDICARE, MEDICAID, SELFPAY ==
[2022-04-19 09:54] LABS: Hematocrit 33.6 % (37-47); Hemoglobin 10.6 g/dL (12.0-15.0); Mean Corp Hgb Conc 31.5 g/dL (32-36); Mean Corpuscular Hgb 31.1 pg (27.0-32.0); Mean Corpuscular Volume 98.5 fL (81-99); Mean Platelet Vol. 10.1 fl (6.2-12.0); Platelet Count 347 K/mm3 (150-450); RBC Distribution Width CV 13.3 % (11.6-14.6); RBC Distribution Width SD 48.2 fl (35.1-43.9); Red Blood Count 3.41 M/mm3 (4.2-5.4); White Blood Count 5.9 K/mm3 (4.4-11.0)
[2022-04-19 10:04] LABS: Anion Gap 6 (5-15); BUN 24 mg/dL (7-18); BUN/Creat Ratio 32.4 RATIO (10-20); Calcium,Total 8.5 mg/dL (8.5-10.1); Chloride 106 mmol/L (98-107); Creatinine, Serum 0.74 mg/dL (0.55-1.02); EST Glomerular Filtration Rate 82 mL/min (>60); Est Glom Filt Rate - Afr Amer 100 mL/min (>60); Glucose 80 mg/dL (74-106); Potassium 4.4 mmol/L (3.5-5.1); Sodium Level 142 mmol/L (136-145)
== END ==
LOC: OLS.SW 05:00
PROVIDERS: PCP Family Medicine; Visit Provider Internal Medicine
DX: U07.1 COVID-19 (principal); E78.5 Hyperlipidemia, unspecified
CPT/HCPCS: 36415; 80048; 85027; 86140

== ENCOUNTER → 2022-05-05 | Outpatient (REF) | payer MEDICARE, MEDICAID, SELFPAY ==
[2022-05-05 08:36] LABS: Absolute Lymphocyte Count 2.51 X10^3/uL (0.83-4.51); Absolute Neutrophil Count 3.3 X10^3/uL (2.0-7.7); Basophil# 0.04 X10^3/uL; Basophil% 0.6 % (0-1); Eosinophil# 0.33 X10^3/uL; Eosinophils% 4.6 % (0-5); Hematocrit 37.7 % (37-47); Hemoglobin 11.7 g/dL (12.0-15.0); Lymphocyte # 2.51 X10^3/ul (0.83-4.51); Mean Corpuscular Hgb 31.4 pg (27.0-32.0); Mean Corpuscular Volume 101.1 fL (81-99); Mean Platelet Vol. 11.1 fl (6.2-12.0); Monocyte# 0.99 X10^3/uL; Monocyte% 13.8 % (0-10); NRBC Flagged by Analyzer 0 % (0-5); Neutrophil % 45.9 % (47-70); Platelet Count 275 K/mm3 (150-450); RBC Distribution Width CV 14.3 % (11.6-14.6); RBC Distribution Width SD 53.1 fl (35.1-43.9); Red Blood Count 3.73 M/mm3 (4.2-5.4); White Blood Count 7.2 K/mm3 (4.4-11.0)
[2022-05-05 08:49] LABS: Anion Gap 5 (5-15); BUN 10 mg/dL (7-18); BUN/Creat Ratio 12.7 RATIO (10-20); Chloride 107 mmol/L (98-107); Creatinine, Serum 0.79 mg/dL (0.55-1.02); EST Glomerular Filtration Rate 76 mL/min (>60); Est Glom Filt Rate - Afr Amer 93 mL/min (>60); Glucose 86 mg/dL (74-106); Potassium 4.2 mmol/L (3.5-5.1); Sodium Level 143 mmol/L (136-145)
== END ==
LOC: OLS.SW 05:00
PROVIDERS: PCP Family Medicine; Visit Provider Internal Medicine
DX: R68.89 Other general symptoms and signs (principal); Z13.228 Encounter for screening for other metabolic disorders; Z79.899 Other long term (current) drug therapy
CPT/HCPCS: 36415; 80048; 85025

== ENCOUNTER → 2022-05-11 | Outpatient (REF) | payer MEDICARE, MEDICAID, SELFPAY ==
[2022-05-11 10:08] LABS: Absolute Lymphocyte Count 2.56 X10^3/uL (0.83-4.51); Absolute Neutrophil Count 4.3 X10^3/uL (2.0-7.7); Basophil# 0.06 X10^3/uL; Basophil% 0.7 % (0-1); Eosinophil# 0.46 X10^3/uL; Eosinophils% 5.7 % (0-5); Hematocrit 42.2 % (37-47); Hemoglobin 13.2 g/dL (12.0-15.0); Lymphocyte # 2.56 X10^3/ul (0.83-4.51); Lymphocyte % 31.5 % (19-41); Mean Corp Hgb Conc 31.3 g/dL (32-36); Mean Corpuscular Hgb 32.4 pg (27.0-32.0); Mean Corpuscular Volume 103.4 fL (81-99); Mean Platelet Vol. 10.3 fl (6.2-12.0); Monocyte% 8.6 % (0-10); NRBC Flagged by Analyzer 0 % (0-5); Neutrophil # 4.33 X10^3/uL (2.7-7.7); Neutrophil % 53.3 % (47-70); Platelet Count 398 K/mm3 (150-450); RBC Distribution Width SD 53.1 fl (35.1-43.9); Red Blood Count 4.08 M/mm3 (4.2-5.4); White Blood Count 8.1 K/mm3 (4.4-11.0)
[2022-05-11 10:27] LABS: Vitamin B12 656 pg/mL (211-911)
[2022-05-11 10:49] LABS: Anion Gap 5 (5-15); BUN 13 mg/dL (7-18); BUN/Creat Ratio 17.4 RATIO (10-20); Calcium,Total 9.1 mg/dL (8.5-10.1); Chloride 106 mmol/L (98-107); Cholesterol 171 mg/dL (200); Creatinine, Serum 0.74 mg/dL (0.55-1.02); EST Glomerular Filtration Rate 82 mL/min (>60); Est Glom Filt Rate - Afr Amer 99 mL/min (>60); Glucose 96 mg/dL (74-106); High Density Lipoprotein 49 mg/dL; Potassium 4.7 mmol/L (3.5-5.1); Sodium Level 141 mmol/L (136-145); Thyroid Stim Hormone (TSH) 4.72 uIU/mL (0.358-3.74); Triglycerides 203 mg/dL; Very Low Density Lipoprotein 41 mg/dL (5-40)
== END ==
LOC: OLS.SW 05:00
PROVIDERS: PCP Family Medicine; Visit Provider Internal Medicine
DX: E11.9 Type 2 diabetes mellitus without complications (principal); E78.5 Hyperlipidemia, unspecified; F31.9 Bipolar disorder, unspecified
CPT/HCPCS: 36415; 80048; 80061; 82607; 83036; 84443; 85025

== ENCOUNTER → 2022-05-12 | Outpatient (REF) | payer MEDICARE, MEDICAID, SELFPAY ==
[2022-05-12 08:46] LABS: Absolute Neutrophil Count 2.7 X10^3/uL (2.0-7.7); Basophil# 0.05 X10^3/uL; Basophil% 0.9 % (0-1); Eosinophil# 0.41 X10^3/uL; Eosinophils% 7.3 % (0-5); Hematocrit 37.6 % (37-47); Hemoglobin 11.4 g/dL (12.0-15.0); Lymphocyte % 33.7 % (19-41); Mean Corp Hgb Conc 30.3 g/dL (32-36); Mean Corpuscular Hgb 31.1 pg (27.0-32.0); Mean Corpuscular Volume 102.7 fL (81-99); Mean Platelet Vol. 9.9 fl (6.2-12.0); Monocyte# 0.53 X10^3/uL; Monocyte% 9.4 % (0-10); NRBC Flagged by Analyzer 0 % (0-5); Neutrophil # 2.73 X10^3/uL (2.7-7.7); Neutrophil % 48.5 % (47-70); Platelet Count 334 K/mm3 (150-450); RBC Distribution Width CV 13.9 % (11.6-14.6); RBC Distribution Width SD 52.5 fl (35.1-43.9); Red Blood Count 3.66 M/mm3 (4.2-5.4); White Blood Count 5.6 K/mm3 (4.4-11.0)
[2022-05-12 08:59] LABS: Anion Gap 4 (5-15); BUN 15 mg/dL (7-18); BUN/Creat Ratio 21.1 RATIO (10-20); Calcium,Total 8.8 mg/dL (8.5-10.1); Chloride 105 mmol/L (98-107); Creatinine, Serum 0.71 mg/dL (0.55-1.02); EST Glomerular Filtration Rate 86 mL/min (>60); Est Glom Filt Rate - Afr Amer 104 mL/min (>60); Glucose 90 mg/dL (74-106); Potassium 4.6 mmol/L (3.5-5.1); Sodium Level 141 mmol/L (136-145)
== END ==
LOC: OLS.SW 05:00
PROVIDERS: PCP Family Medicine; Visit Provider Internal Medicine
DX: R68.89 Other general symptoms and signs (principal); Z13.228 Encounter for screening for other metabolic disorders; Z79.899 Other long term (current) drug therapy
CPT/HCPCS: 36415; 80048; 85025

== ENCOUNTER → 2022-05-19 | Outpatient (REF) | payer MEDICARE, MEDICAID, SELFPAY ==
[2022-05-19 10:42] LABS: Absolute Lymphocyte Count 2.21 X10^3/uL (0.83-4.51); Basophil# 0.07 X10^3/uL; Basophil% 0.8 % (0-1); Eosinophil# 0.47 X10^3/uL; Eosinophils% 5.6 % (0-5); Hematocrit 39.1 % (37-47); Lymphocyte # 2.21 X10^3/ul (0.83-4.51); Lymphocyte % 26.5 % (19-41); Mean Corp Hgb Conc 30.7 g/dL (32-36); Mean Corpuscular Hgb 31.7 pg (27.0-32.0); Mean Corpuscular Volume 103.2 fL (81-99); Mean Platelet Vol. 10.1 fl (6.2-12.0); Monocyte# 0.61 X10^3/uL; Monocyte% 7.3 % (0-10); NRBC Flagged by Analyzer 0 % (0-5); Neutrophil # 4.96 X10^3/uL (2.7-7.7); Neutrophil % 59.6 % (47-70); Platelet Count 340 K/mm3 (150-450); RBC Distribution Width CV 14.2 % (11.6-14.6); RBC Distribution Width SD 53.5 fl (35.1-43.9); Red Blood Count 3.79 M/mm3 (4.2-5.4); White Blood Count 8.3 K/mm3 (4.4-11.0)
[2022-05-19 10:56] LABS: Anion Gap 4 (5-15); BUN 12 mg/dL (7-18); BUN/Creat Ratio 15.8 RATIO (10-20); Calcium,Total 8.7 mg/dL (8.5-10.1); Chloride 105 mmol/L (98-107); Creatinine, Serum 0.76 mg/dL (0.55-1.02); EST Glomerular Filtration Rate 80 mL/min (>60); Est Glom Filt Rate - Afr Amer 96 mL/min (>60); Glucose 83 mg/dL (74-106); Potassium 4.5 mmol/L (3.5-5.1); Sodium Level 138 mmol/L (136-145)
== END ==
LOC: OLS.SW 05:00
PROVIDERS: PCP Family Medicine; Visit Provider Internal Medicine
DX: R68.89 Other general symptoms and signs (principal); Z13.228 Encounter for screening for other metabolic disorders; Z79.899 Other long term (current) drug therapy
CPT/HCPCS: 36415; 80048; 85025

== ENCOUNTER → 2022-05-26 | Outpatient (REF) | payer MEDICARE, MEDICAID, SELFPAY ==
[2022-05-26 09:20] LABS: Absolute Neutrophil Count 3.8 X10^3/uL (2.0-7.7); Basophil# 0.06 X10^3/uL; Basophil% 0.8 % (0-1); Eosinophil# 0.49 X10^3/uL; Eosinophils% 6.9 % (0-5); Hematocrit 36.8 % (37-47); Hemoglobin 11.2 g/dL (12.0-15.0); Lymphocyte % 25.2 % (19-41); Mean Corp Hgb Conc 30.4 g/dL (32-36); Mean Corpuscular Hgb 31.4 pg (27.0-32.0); Mean Corpuscular Volume 103.1 fL (81-99); Mean Platelet Vol. 10.4 fl (6.2-12.0); Monocyte# 0.92 X10^3/uL; Monocyte% 12.9 % (0-10); NRBC Flagged by Analyzer 0 % (0-5); Neutrophil # 3.84 X10^3/uL (2.7-7.7); Neutrophil % 53.9 % (47-70); Platelet Count 253 K/mm3 (150-450); RBC Distribution Width CV 13.8 % (11.6-14.6); Red Blood Count 3.57 M/mm3 (4.2-5.4); White Blood Count 7.1 K/mm3 (4.4-11.0)
[2022-05-26 10:03] LABS: Anion Gap 6 (5-15); BUN 8 mg/dL (7-18); BUN/Creat Ratio 14.3 RATIO (10-20); Calcium,Total 8.6 mg/dL (8.5-10.1); Chloride 108 mmol/L (98-107); Creatinine, Serum 0.56 mg/dL (0.55-1.02); EST Glomerular Filtration Rate 114 mL/min (>60); Est Glom Filt Rate - Afr Amer 138 mL/min (>60); Glucose 78 mg/dL (74-106); Potassium 4.6 mmol/L (3.5-5.1); Sodium Level 141 mmol/L (136-145)
== END ==
LOC: OLS.SW 05:00
PROVIDERS: PCP Family Medicine; Visit Provider Internal Medicine
DX: R68.89 Other general symptoms and signs (principal); Z13.228 Encounter for screening for other metabolic disorders; Z79.899 Other long term (current) drug therapy
CPT/HCPCS: 36415; 80048; 85025

== ENCOUNTER → 2022-05-31 | Outpatient (REF) | payer MEDICARE, MEDICAID, SELFPAY ==
[2022-05-31 08:25] LABS: Thyroid Stim Hormone (TSH) 1.68 uIU/mL (0.358-3.74)
== END ==
LOC: OLS.SW 05:00
PROVIDERS: PCP Family Medicine; Visit Provider Internal Medicine
DX: E03.9 Hypothyroidism, unspecified (principal)
CPT/HCPCS: 36415; 84443

== ENCOUNTER → 2022-06-02 | Outpatient (REF) | payer MEDICARE, MEDICAID, SELFPAY ==
[2022-06-02 08:01] LABS: Absolute Lymphocyte Count 2.53 X10^3/uL (0.83-4.51); Absolute Neutrophil Count 3.8 X10^3/uL (2.0-7.7); Basophil# 0.06 X10^3/uL; Basophil% 0.8 % (0-1); Eosinophil# 0.43 X10^3/uL; Eosinophils% 5.7 % (0-5); Hematocrit 37.2 % (37-47); Hemoglobin 11.2 g/dL (12.0-15.0); Lymphocyte # 2.53 X10^3/ul (0.83-4.51); Lymphocyte % 33.3 % (19-41); Mean Corp Hgb Conc 30.1 g/dL (32-36); Mean Corpuscular Hgb 31.3 pg (27.0-32.0); Mean Corpuscular Volume 103.9 fL (81-99); Mean Platelet Vol. 9.7 fl (6.2-12.0); Monocyte# 0.69 X10^3/uL; Monocyte% 9.1 % (0-10); NRBC Flagged by Analyzer 0 % (0-5); Neutrophil # 3.84 X10^3/uL (2.7-7.7); Neutrophil % 50.6 % (47-70); Platelet Count 292 K/mm3 (150-450); RBC Distribution Width CV 13.7 % (11.6-14.6); RBC Distribution Width SD 52.9 fl (35.1-43.9); Red Blood Count 3.58 M/mm3 (4.2-5.4); White Blood Count 7.6 K/mm3 (4.4-11.0)
[2022-06-02 08:05] LABS: Anion Gap 2 (5-15); BUN 13 mg/dL (7-18); BUN/Creat Ratio 19.2 RATIO (10-20); Calcium,Total 8.3 mg/dL (8.5-10.1); Chloride 108 mmol/L (98-107); Creatinine, Serum 0.68 mg/dL (0.55-1.02); EST Glomerular Filtration Rate 91 mL/min (>60); Est Glom Filt Rate - Afr Amer 110 mL/min (>60); Glucose 88 mg/dL (74-106); Potassium 4.5 mmol/L (3.5-5.1); Sodium Level 141 mmol/L (136-145)
== END ==
LOC: OLS.SW 05:00
PROVIDERS: PCP Family Medicine; Visit Provider Internal Medicine
DX: R68.89 Other general symptoms and signs (principal); Z13.228 Encounter for screening for other metabolic disorders; Z79.899 Other long term (current) drug therapy
CPT/HCPCS: 36415; 80048; 85025

== ENCOUNTER → 2022-06-04 | Outpatient (REF) | payer MEDICARE, MEDICAID, SELFPAY | LOC: OLS.SW 14:25 | PROVIDERS: PCP Family Medicine; Visit Provider Internal Medicine | DX: N89.8 Other specified noninflammatory disorders of vagina (principal) | CPT/HCPCS: 87070; 87205 ==

== ENCOUNTER → 2022-06-09 | Outpatient (REF) | payer MEDICARE, MEDICAID, SELFPAY ==
[2022-06-09 08:59] LABS: Absolute Lymphocyte Count 1.91 X10^3/uL (0.83-4.51); Absolute Neutrophil Count 2.9 X10^3/uL (2.0-7.7); Basophil# 0.06 X10^3/uL; Eosinophil# 0.35 X10^3/uL; Eosinophils% 5.9 % (0-5); Hematocrit 37.2 % (37-47); Hemoglobin 11.3 g/dL (12.0-15.0); Lymphocyte # 1.91 X10^3/ul (0.83-4.51); Mean Corp Hgb Conc 30.4 g/dL (32-36); Mean Corpuscular Hgb 31.3 pg (27.0-32.0); Mean Platelet Vol. 10.2 fl (6.2-12.0); Monocyte# 0.68 X10^3/uL; Monocyte% 11.4 % (0-10); NRBC Flagged by Analyzer 0 % (0-5); Neutrophil # 2.94 X10^3/uL (2.7-7.7); Neutrophil % 49.4 % (47-70); Platelet Count 321 K/mm3 (150-450); RBC Distribution Width CV 13.2 % (11.6-14.6); RBC Distribution Width SD 51.5 fl (35.1-43.9); Red Blood Count 3.61 M/mm3 (4.2-5.4)
[2022-06-09 09:24] LABS: Anion Gap 4 (5-15); BUN 13 mg/dL (7-18); BUN/Creat Ratio 18.1 RATIO (10-20); Calcium,Total 8.6 mg/dL (8.5-10.1); Chloride 106 mmol/L (98-107); Creatinine, Serum 0.72 mg/dL (0.55-1.02); EST Glomerular Filtration Rate 85 mL/min (>60); Est Glom Filt Rate - Afr Amer 103 mL/min (>60); Glucose 83 mg/dL (74-106); Potassium 4.4 mmol/L (3.5-5.1); Sodium Level 140 mmol/L (136-145)
== END ==
LOC: OLS.SW 05:00
PROVIDERS: PCP Family Medicine; Visit Provider Internal Medicine
DX: R68.89 Other general symptoms and signs (principal); Z13.228 Encounter for screening for other metabolic disorders; Z79.899 Other long term (current) drug therapy
CPT/HCPCS: 36415; 80048; 85025

== ENCOUNTER → 2022-06-16 | Outpatient (REF) | payer MEDICARE, MEDICAID, SELFPAY ==
[2022-06-16 08:10] LABS: Absolute Lymphocyte Count 2.44 X10^3/uL (0.83-4.51); Absolute Neutrophil Count 2.1 X10^3/uL (2.0-7.7); Basophil# 0.04 X10^3/uL; Basophil% 0.7 % (0-1); Eosinophil# 0.44 X10^3/uL; Eosinophils% 7.8 % (0-5); Hematocrit 36.3 % (37-47); Hemoglobin 11.2 g/dL (12.0-15.0); Lymphocyte # 2.44 X10^3/ul (0.83-4.51); Lymphocyte % 43.3 % (19-41); Mean Corp Hgb Conc 30.9 g/dL (32-36); Mean Corpuscular Hgb 31.4 pg (27.0-32.0); Mean Corpuscular Volume 101.7 fL (81-99); Mean Platelet Vol. 10.4 fl (6.2-12.0); Monocyte% 10.7 % (0-10); NRBC Flagged by Analyzer 0 % (0-5); Neutrophil # 2.09 X10^3/uL (2.7-7.7); Neutrophil % 37.1 % (47-70); Platelet Count 263 K/mm3 (150-450); RBC Distribution Width CV 13.2 % (11.6-14.6); RBC Distribution Width SD 49.2 fl (35.1-43.9); Red Blood Count 3.57 M/mm3 (4.2-5.4); White Blood Count 5.6 K/mm3 (4.4-11.0)
[2022-06-16 08:39] LABS: Anion Gap 2 (5-15); BUN 14 mg/dL (7-18); BUN/Creat Ratio 20.9 RATIO (10-20); Calcium,Total 8.1 mg/dL (8.5-10.1); Chloride 107 mmol/L (98-107); Creatinine, Serum 0.67 mg/dL (0.55-1.02); EST Glomerular Filtration Rate 92 mL/min (>60); Est Glom Filt Rate - Afr Amer 112 mL/min (>60); Glucose 87 mg/dL (74-106); Potassium 4.3 mmol/L (3.5-5.1); Sodium Level 139 mmol/L (136-145)
== END ==
LOC: OLS.SW 05:00
PROVIDERS: PCP Family Medicine; Visit Provider Internal Medicine
DX: R68.89 Other general symptoms and signs (principal); Z13.228 Encounter for screening for other metabolic disorders; Z79.899 Other long term (current) drug therapy
CPT/HCPCS: 36415; 80048; 85025

== ENCOUNTER → 2022-06-30 | Outpatient (REF) | payer MEDICARE, MEDICAID, SELFPAY ==
[2022-06-30 06:56] LABS: Absolute Lymphocyte Count 2.76 X10^3/uL (0.83-4.51); Absolute Neutrophil Count 2.4 X10^3/uL (2.0-7.7); Basophil# 0.05 X10^3/uL; Basophil% 0.8 % (0-1); Eosinophil# 0.72 X10^3/uL; Eosinophils% 10.8 % (0-5); Hematocrit 37.3 % (37-47); Hemoglobin 11.4 g/dL (12.0-15.0); Lymphocyte # 2.76 X10^3/ul (0.83-4.51); Lymphocyte % 41.6 % (19-41); Mean Corp Hgb Conc 30.6 g/dL (32-36); Mean Corpuscular Hgb 31.5 pg (27.0-32.0); Monocyte# 0.73 X10^3/uL; NRBC Flagged by Analyzer 0 % (0-5); Neutrophil # 2.36 X10^3/uL (2.7-7.7); Neutrophil % 35.5 % (47-70); Platelet Count 240 K/mm3 (150-450); RBC Distribution Width CV 13.2 % (11.6-14.6); RBC Distribution Width SD 50.2 fl (35.1-43.9); Red Blood Count 3.62 M/mm3 (4.2-5.4); White Blood Count 6.6 K/mm3 (4.4-11.0)
[2022-06-30 07:03] LABS: Anion Gap 2 (5-15); BUN 14 mg/dL (7-18); BUN/Creat Ratio 20.6 RATIO (10-20); Calcium,Total 8.2 mg/dL (8.5-10.1); Chloride 106 mmol/L (98-107); Creatinine, Serum 0.68 mg/dL (0.55-1.02); EST Glomerular Filtration Rate 91 mL/min (>60); Est Glom Filt Rate - Afr Amer 110 mL/min (>60); Glucose 88 mg/dL (74-106); Potassium 4.5 mmol/L (3.5-5.1); Sodium Level 138 mmol/L (136-145)
== END ==
LOC: OLS.SW 05:00
PROVIDERS: PCP Family Medicine; Visit Provider Internal Medicine
DX: Z79.899 Other long term (current) drug therapy (principal)
CPT/HCPCS: 36415; 80048; 85025

== ENCOUNTER → 2022-07-07 | Outpatient (REF) | payer MEDICARE, MEDICAID, SELFPAY ==
[2022-07-07 07:36] LABS: Absolute Lymphocyte Count 3.11 X10^3/uL (0.83-4.51); Absolute Neutrophil Count 3.5 X10^3/uL (2.0-7.7); Basophil# 0.08 X10^3/uL; Eosinophil# 0.48 X10^3/uL; Hematocrit 38.4 % (37-47); Lymphocyte # 3.11 X10^3/ul (0.83-4.51); Lymphocyte % 38.6 % (19-41); Mean Corp Hgb Conc 31.3 g/dL (32-36); Mean Corpuscular Hgb 31.8 pg (27.0-32.0); Mean Corpuscular Volume 101.9 fL (81-99); Mean Platelet Vol. 9.8 fl (6.2-12.0); Monocyte# 0.82 X10^3/uL; Monocyte% 10.2 % (0-10); NRBC Flagged by Analyzer 0 % (0-5); Neutrophil # 3.54 X10^3/uL (2.7-7.7); Neutrophil % 43.8 % (47-70); Platelet Count 305 K/mm3 (150-450); RBC Distribution Width CV 13.2 % (11.6-14.6); RBC Distribution Width SD 49.1 fl (35.1-43.9); Red Blood Count 3.77 M/mm3 (4.2-5.4); White Blood Count 8.1 K/mm3 (4.4-11.0)
[2022-07-07 07:48] LABS: Anion Gap 3 (5-15); BUN 21 mg/dL (7-18); BUN/Creat Ratio 28.3 RATIO (10-20); Calcium,Total 8.5 mg/dL (8.5-10.1); Chloride 104 mmol/L (98-107); Creatinine, Serum 0.74 mg/dL (0.55-1.02); EST Glomerular Filtration Rate 82 mL/min (>60); Est Glom Filt Rate - Afr Amer 99 mL/min (>60); Glucose 86 mg/dL (74-106); Potassium 4.5 mmol/L (3.5-5.1); Sodium Level 136 mmol/L (136-145)
== END ==
LOC: OLS.SW 05:00
PROVIDERS: PCP Family Medicine; Visit Provider Internal Medicine
DX: R68.89 Other general symptoms and signs (principal); Z13.228 Encounter for screening for other metabolic disorders; Z79.899 Other long term (current) drug therapy
CPT/HCPCS: 36415; 80048; 85025

== ENCOUNTER → 2022-07-14 | Outpatient (REF) | payer MEDICARE, MEDICAID, SELFPAY ==
[2022-07-14 08:17] LABS: Anion Gap -1 (5-15); BUN 20 mg/dL (7-18); Calcium,Total 8.6 mg/dL (8.5-10.1); Chloride 107 mmol/L (98-107); Creatinine, Serum 0.74 mg/dL (0.55-1.02); EST Glomerular Filtration Rate 82 mL/min (>60); Est Glom Filt Rate - Afr Amer 99 mL/min (>60); Glucose 83 mg/dL (74-106); Potassium 4.5 mmol/L (3.5-5.1); Sodium Level 137 mmol/L (136-145)
[2022-07-14 10:30] LABS: Absolute Lymphocyte Count 3.15 X10^3/uL (0.83-4.51); Absolute Neutrophil Count 2.8 X10^3/uL (2.0-7.7); Basophil# 0.07 X10^3/uL; Eosinophil# 0.46 X10^3/uL; Eosinophils% 6.4 % (0-5); Hemoglobin 11.8 g/dL (12.0-15.0); Lymphocyte # 3.15 X10^3/ul (0.83-4.51); Lymphocyte % 43.8 % (19-41); Mean Corp Hgb Conc 31.1 g/dL (32-36); Mean Corpuscular Hgb 31.5 pg (27.0-32.0); Mean Corpuscular Volume 101.3 fL (81-99); Mean Platelet Vol. 9.6 fl (6.2-12.0); Monocyte# 0.71 X10^3/uL; Monocyte% 9.9 % (0-10); NRBC Flagged by Analyzer 0 % (0-5); Neutrophil # 2.79 X10^3/uL (2.7-7.7); Neutrophil % 38.6 % (47-70); Platelet Count 252 K/mm3 (150-450); RBC Distribution Width CV 13.2 % (11.6-14.6); RBC Distribution Width SD 49.7 fl (35.1-43.9); Red Blood Count 3.75 M/mm3 (4.2-5.4); White Blood Count 7.2 K/mm3 (4.4-11.0)
== END ==
LOC: OLS.SW 05:00
PROVIDERS: PCP Family Medicine; Visit Provider Internal Medicine
DX: R68.89 Other general symptoms and signs (principal); Z13.228 Encounter for screening for other metabolic disorders; Z79.899 Other long term (current) drug therapy
CPT/HCPCS: 36415; 80048; 85025

== ENCOUNTER → 2022-07-21 | Outpatient (REF) | payer MEDICARE, MEDICAID, SELFPAY ==
[2022-07-21 08:02] LABS: Absolute Neutrophil Count 3.5 X10^3/uL (2.0-7.7); Basophil# 0.04 X10^3/uL; Basophil% 0.5 % (0-1); Eosinophil# 0.53 X10^3/uL; Eosinophils% 6.7 % (0-5); Hematocrit 38.6 % (37-47); Hemoglobin 11.7 g/dL (12.0-15.0); Lymphocyte % 36.5 % (19-41); Mean Corp Hgb Conc 30.3 g/dL (32-36); Mean Corpuscular Volume 102.4 fL (81-99); Mean Platelet Vol. 9.9 fl (6.2-12.0); Monocyte# 0.92 X10^3/uL; Monocyte% 11.6 % (0-10); NRBC Flagged by Analyzer 0 % (0-5); Neutrophil # 3.54 X10^3/uL (2.7-7.7); Neutrophil % 44.4 % (47-70); Platelet Count 204 K/mm3 (150-450); RBC Distribution Width CV 13.1 % (11.6-14.6); RBC Distribution Width SD 49.7 fl (35.1-43.9); Red Blood Count 3.77 M/mm3 (4.2-5.4)
[2022-07-21 08:13] LABS: Anion Gap 2 (5-15); BUN 21 mg/dL (7-18); BUN/Creat Ratio 27.6 RATIO (10-20); Calcium,Total 8.4 mg/dL (8.5-10.1); Chloride 109 mmol/L (98-107); Creatinine, Serum 0.76 mg/dL (0.55-1.02); EST Glomerular Filtration Rate 80 mL/min (>60); Est Glom Filt Rate - Afr Amer 97 mL/min (>60); Glucose 90 mg/dL (74-106); Potassium 4.4 mmol/L (3.5-5.1); Sodium Level 140 mmol/L (136-145)
== END ==
LOC: OLS.SW 05:00
PROVIDERS: PCP Family Medicine; Visit Provider Internal Medicine
DX: F03.90 Unspecified dementia, unspecified severity, without behavioral disturbance, psychotic disturbance, mood disturbance, and anxiety (principal); E03.9 Hypothyroidism, unspecified; Z79.899 Other long term (current) drug therapy; Z13.228 Encounter for screening for other metabolic disorders
CPT/HCPCS: 36415; 80048; 85025

== ENCOUNTER → 2022-07-28 | Outpatient (REF) | payer MEDICARE, MEDICAID, SELFPAY ==
[2022-07-28 10:30] LABS: Absolute Lymphocyte Count 2.06 X10^3/uL (0.83-4.51); Absolute Neutrophil Count 4.7 X10^3/uL (2.0-7.7); Basophil# 0.04 X10^3/uL; Basophil% 0.5 % (0-1); Hematocrit 39.4 % (37-47); Hemoglobin 11.9 g/dL (12.0-15.0); Lymphocyte # 2.06 X10^3/ul (0.83-4.51); Lymphocyte % 25.8 % (19-41); Mean Corp Hgb Conc 30.2 g/dL (32-36); Mean Corpuscular Volume 102.6 fL (81-99); Mean Platelet Vol. 9.8 fl (6.2-12.0); Monocyte# 0.76 X10^3/uL; Monocyte% 9.5 % (0-10); NRBC Flagged by Analyzer 0 % (0-5); Neutrophil # 4.72 X10^3/uL (2.7-7.7); Neutrophil % 58.9 % (47-70); Platelet Count 246 K/mm3 (150-450); RBC Distribution Width SD 48.7 fl (35.1-43.9); Red Blood Count 3.84 M/mm3 (4.2-5.4)
[2022-07-28 10:32] LABS: Anion Gap 5 (5-15); BUN 19 mg/dL (7-18); BUN/Creat Ratio 22.5 RATIO (10-20); Calcium,Total 8.7 mg/dL (8.5-10.1); Chloride 106 mmol/L (98-107); Creatinine, Serum 0.85 mg/dL (0.55-1.02); EST Glomerular Filtration Rate 71 mL/min (>60); Est Glom Filt Rate - Afr Amer 85 mL/min (>60); Glucose 78 mg/dL (74-106); Potassium 4.2 mmol/L (3.5-5.1); Sodium Level 142 mmol/L (136-145)
== END ==
LOC: OLS.SW 05:00
PROVIDERS: PCP Family Medicine; Visit Provider Internal Medicine
DX: Z13.228 Encounter for screening for other metabolic disorders (principal); Z79.899 Other long term (current) drug therapy
CPT/HCPCS: 36415; 80048; 85025

== ENCOUNTER 2022-08-04 08:41 | Outpatient (CLI) | payer MEDICARE, MEDICAID, SELFPAY ==
--- NOTE | 2022-08-04 09:15 | MRI_ITS ---
INDICATION: Chronic low back pain; bilat lower extremity radic EXAMINATION: MRI - MR Spine Lumbar W/O Contrast TECHNIQUE: Multiplanar and multisequence MR images of the lumbar spine. IV Contrast Dosage and Agent: None. COMPARISON: CT April 15, 2022. 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 This is a normal anatomic variant. VERTEBRAE: Moderate wedge compression fracture T11 with moderate marrow edema subjacent to the superior endplate consistent with acute compression fracture. This area was not imaged on the prior study. VERTEBRAL ALIGNMENT: Grade 1 spondylolisthesis L4-5 stable without spondylolysis. Grade 1 retrolisthesis L1 on L2 stable. CORD: Normal position and signal intensity of the conus medullaris. L1/L2: Moderate disc desiccation and loss of disc space height, mild pseudobulging, mild bilateral facet arthropathy, moderate bilateral neural foraminal encroachment. L2/L3: Moderate disc desiccation, mild disc bulging, mild bilateral facet arthropathy, moderate bilateral neural foraminal encroachment. L3/L4: Moderate disc desiccation and loss of disc space height, mild disc bulging, mild bilateral facet arthropathy and ligamentous hypertrophy, moderate bilateral neural foraminal encroachment L4/L5: Moderate disc desiccation, moderate pseudobulge, moderate bilateral facet arthropathy and ligamentous hypertrophy, moderate central stenosis, moderate bilateral neural foraminal encroachment. L5/S1: Moderate disc desiccation, mild disc bulging, moderate bilateral facet arthropathy, moderate bilateral neural foraminal encroachment. Other than the wedge deformity discussed above which was not imaged on the prior study findings are stable. SOFT TISSUES: Unremarkable. MRI/Spine Lumbar (Routine) IMPRESSION: Grade 1 retrolisthesis L1 on L2 and grade 1 spondylolisthesis L4-5 with pseudobulging at both of these levels. Mild disc bulging L2-L4 and L5-S1. Multilevel degenerative disc disease, central stenosis, facet arthropathy and neural foraminal encroachment as above. Electronically Signed: Sergo Augustine MD, FREDRICK at 21:51 EDT ,
--- NOTE | 2022-08-04 10:15 | MRI_ITS ---
INDICATION: Neck pain; gait imbalance, FALLS EXAMINATION: MRI - MR Spine Cervical W/O Contrast TECHNIQUE: Multiplanar and multisequence MR images of the cervical spine were performed. IV Contrast Dosage and Agent: None. COMPARISON: None. FINDINGS: VERTEBRAE: Normal vertebral bodies and posterior elements. VERTEBRAL ALIGNMENT: Straightening of the lumbar lordosis. CERVICAL SPINAL CORD: Mild flattening of the cervical cord C5-6 due to pathology detailed below. Normal cord signal intensity. C2/C3: Moderate disc desiccation. C3/C4: Moderate disc desiccation, mild disc bulging, bilateral facet arthropathy and uncovertebral joint disease with moderate bilateral neural foraminal encroachment. C4/C5: Moderate disc desiccation and loss of disc space height, moderate disc osteophyte, moderate facet arthropathy and uncovertebral joint disease with severe bilateral neural foraminal encroachment. C5/C6: Severe disc desiccation and loss of disc space height, moderate disc osteophyte, mild central stenosis, bilateral facet arthropathy and uncovertebral joint disease with severe right and moderately severe left neural foraminal encroachment. C6/C7: Severe disc desiccation and loss of disc space height moderate disc osteophyte, bilateral facet arthropathy and uncovertebral joint disease with severe bilateral neural foraminal encroachment. C7/T1: Moderate disc desiccation, mild disc osteophyte, bilateral facet arthropathy and uncovertebral joint disease with moderate bilateral neural foraminal encroachment NECK SOFT TISSUES: No prevertebral soft tissue swelling. There is no cervical adenopathy. MRI/Spine Cervical (Routine) IMPRESSION: X-ray-4 mild disc bulging. C4-5, C5-6 and C6-7 moderate disc osteophyte, mild disc osteophyte C7-T1. Multilevel degenerative disc disease, flattening of the cord anteriorly, facet arthropathy, uncovertebral joint disease and neural foraminal encroachment as above. Electronically Signed: Sergo Augustine MD, FREDRICK at 21:46 EDT Reading Location ID and State: [facility] / [place] [employer] , Service support ,
== END 2022-08-04 23:59 | disposition home or self-care (01) ==
LOC: MRI 08:43
PROVIDERS: PCP Family Medicine; Referring Provider Psychiatry & Neurology Neurology; Visit Provider Psychiatry & Neurology Neurology
DX: Z13.228 Encounter for screening for other metabolic disorders (principal); M54.2 Cervicalgia; R26.89 Other abnormalities of gait and mobility; G89.29 Other chronic pain; M54.50 Low back pain, unspecified; M54.10 Radiculopathy, site unspecified; Z79.899 Other long term (current) drug therapy; R68.89 Other general symptoms and signs
CPT/HCPCS: 72141; 72148

== ENCOUNTER → 2022-08-04 | Outpatient (REF) | payer MEDICARE, MEDICAID, SELFPAY ==
[2022-08-04 09:23] LABS: Absolute Lymphocyte Count 2.98 X10^3/uL (0.83-4.51); Absolute Neutrophil Count 2.7 X10^3/uL (2.0-7.7); Basophil# 0.06 X10^3/uL; Basophil% 0.9 % (0-1); Eosinophil# 0.51 X10^3/uL; Eosinophils% 7.3 % (0-5); Hematocrit 39.3 % (37-47); Hemoglobin 12.3 g/dL (12.0-15.0); Lymphocyte # 2.98 X10^3/ul (0.83-4.51); Lymphocyte % 42.5 % (19-41); Mean Corp Hgb Conc 31.3 g/dL (32-36); Mean Corpuscular Hgb 31.5 pg (27.0-32.0); Mean Corpuscular Volume 100.8 fL (81-99); Monocyte# 0.79 X10^3/uL; Monocyte% 11.3 % (0-10); NRBC Flagged by Analyzer 0 % (0-5); Neutrophil # 2.66 X10^3/uL (2.7-7.7); Neutrophil % 37.7 % (47-70); Platelet Count 280 K/mm3 (150-450); RBC Distribution Width CV 13.2 % (11.6-14.6); RBC Distribution Width SD 48.8 fl (35.1-43.9)
[2022-08-04 09:37] LABS: Anion Gap 4 (5-15); BUN 16 mg/dL (7-18); BUN/Creat Ratio 22.9 RATIO (10-20); Calcium,Total 8.5 mg/dL (8.5-10.1); Chloride 107 mmol/L (98-107); EST Glomerular Filtration Rate 88 mL/min (>60); Est Glom Filt Rate - Afr Amer 107 mL/min (>60); Glucose 78 mg/dL (74-106); Potassium 4.7 mmol/L (3.5-5.1); Sodium Level 140 mmol/L (136-145)
== END ==
LOC: OLS.SW 05:00
PROVIDERS: PCP Family Medicine; Visit Provider Internal Medicine
DX: R68.89 Other general symptoms and signs (principal); Z13.228 Encounter for screening for other metabolic disorders; Z79.899 Other long term (current) drug therapy
CPT/HCPCS: 36415; 80048; 85025

== ENCOUNTER → 2022-08-10 | Outpatient (REF) | payer MEDICARE, MEDICAID, SELFPAY ==
[2022-08-10 08:45] LABS: AST(SGOT) 13 U/L (15-37); Alanine Aminotransfer ALT/SGPT 11 U/L (13-56); Albumin, Serum 2.7 g/dL (3.2-5.0); Alkaline Phosphatase 76 U/L (45-117); Bilirubin, Direct 0.07 mg/dL (0.00-0.30); Globulin 3.3 g/dL (2.2-4.2)
[2022-08-10 09:05] LABS: Valproic Acid (Depakene) Level 29 ug/mL (50-100)
[2022-08-13 10:08] LABS: Phenobarbital,Serum 19 ug/mL (15-40); Primidone, Serum 7.1 ug/mL (5.0-12.0)
== END ==
LOC: OLS.SW 05:00
PROVIDERS: PCP Family Medicine; Visit Provider Psychiatry & Neurology Neurology
DX: F31.9 Bipolar disorder, unspecified (principal); E55.9 Vitamin D deficiency, unspecified; G30.9 Alzheimer's disease, unspecified; E78.5 Hyperlipidemia, unspecified; Z79.899 Other long term (current) drug therapy
CPT/HCPCS: 36415; 80076; 80164; 80184; 80188; 82140; 82746; 84425

== ENCOUNTER → 2022-08-11 | Outpatient (REF) | payer MEDICARE, MEDICAID, SELFPAY ==
[2022-08-11 09:14] LABS: Absolute Lymphocyte Count 2.41 X10^3/uL (0.83-4.51); Absolute Neutrophil Count 2.3 X10^3/uL (2.0-7.7); Basophil# 0.06 X10^3/uL; Basophil% 1.1 % (0-1); Eosinophil# 0.29 X10^3/uL; Eosinophils% 5.1 % (0-5); Hematocrit 38.7 % (37-47); Lymphocyte # 2.41 X10^3/ul (0.83-4.51); Lymphocyte % 42.5 % (19-41); Mean Corpuscular Hgb 31.5 pg (27.0-32.0); Mean Corpuscular Volume 101.6 fL (81-99); Mean Platelet Vol. 9.7 fl (6.2-12.0); Monocyte# 0.65 X10^3/uL; Monocyte% 11.5 % (0-10); NRBC Flagged by Analyzer 0 % (0-5); Neutrophil # 2.25 X10^3/uL (2.7-7.7); Neutrophil % 39.6 % (47-70); Platelet Count 253 K/mm3 (150-450); RBC Distribution Width SD 48.9 fl (35.1-43.9); Red Blood Count 3.81 M/mm3 (4.2-5.4); White Blood Count 5.7 K/mm3 (4.4-11.0)
[2022-08-11 09:34] LABS: Anion Gap 5 (5-15); BUN 14 mg/dL (7-18); BUN/Creat Ratio 17.7 RATIO (10-20); Calcium,Total 8.7 mg/dL (8.5-10.1); Chloride 108 mmol/L (98-107); Creatinine, Serum 0.79 mg/dL (0.55-1.02); EST Glomerular Filtration Rate 76 mL/min (>60); Est Glom Filt Rate - Afr Amer 92 mL/min (>60); Glucose 89 mg/dL (74-106); Potassium 4.5 mmol/L (3.5-5.1); Sodium Level 141 mmol/L (136-145)
== END ==
LOC: OLS.SW 05:00
PROVIDERS: PCP Family Medicine; Visit Provider Internal Medicine
DX: R68.89 Other general symptoms and signs (principal); Z13.228 Encounter for screening for other metabolic disorders; Z79.899 Other long term (current) drug therapy
CPT/HCPCS: 36415; 80048; 85025

== ENCOUNTER → 2022-08-18 | Outpatient (REF) | payer MEDICARE, MEDICAID, SELFPAY ==
[2022-08-18 06:57] LABS: Absolute Lymphocyte Count 2.79 X10^3/uL (0.83-4.51); Absolute Neutrophil Count 1.9 X10^3/uL (2.0-7.7); Basophil# 0.06 X10^3/uL; Eosinophils% 6.8 % (0-5); Hematocrit 36.3 % (37-47); Lymphocyte # 2.79 X10^3/ul (0.83-4.51); Lymphocyte % 47.2 % (19-41); Mean Corp Hgb Conc 30.3 g/dL (32-36); Mean Corpuscular Hgb 30.8 pg (27.0-32.0); Mean Corpuscular Volume 101.7 fL (81-99); Mean Platelet Vol. 9.8 fl (6.2-12.0); Monocyte# 0.71 X10^3/uL; NRBC Flagged by Analyzer 0 % (0-5); Neutrophil # 1.94 X10^3/uL (2.7-7.7); Neutrophil % 32.8 % (47-70); Platelet Count 249 K/mm3 (150-450); RBC Distribution Width SD 48.7 fl (35.1-43.9); Red Blood Count 3.57 M/mm3 (4.2-5.4); White Blood Count 5.9 K/mm3 (4.4-11.0)
[2022-08-18 07:00] LABS: Anion Gap 4 (5-15); BUN 17 mg/dL (7-18); BUN/Creat Ratio 20.5 RATIO (10-20); Calcium,Total 8.5 mg/dL (8.5-10.1); Chloride 106 mmol/L (98-107); Creatinine, Serum 0.83 mg/dL (0.55-1.02); EST Glomerular Filtration Rate 72 mL/min (>60); Est Glom Filt Rate - Afr Amer 87 mL/min (>60); Glucose 91 mg/dL (74-106); Sodium Level 140 mmol/L (136-145)
== END ==
LOC: OLS.SW 05:00
PROVIDERS: PCP Family Medicine; Visit Provider Internal Medicine
DX: Z13.228 Encounter for screening for other metabolic disorders (principal); Z79.899 Other long term (current) drug therapy
CPT/HCPCS: 36415; 80048; 85025

== ENCOUNTER → 2022-08-25 | Outpatient (REF) | payer MEDICARE, MEDICAID, SELFPAY ==
[2022-08-25 09:10] LABS: Absolute Lymphocyte Count 2.57 X10^3/uL (0.83-4.51); Absolute Neutrophil Count 2.2 X10^3/uL (2.0-7.7); Basophil# 0.05 X10^3/uL; Basophil% 0.8 % (0-1); Eosinophil# 0.45 X10^3/uL; Eosinophils% 7.6 % (0-5); Hematocrit 36.2 % (37-47); Hemoglobin 11.1 g/dL (12.0-15.0); Lymphocyte # 2.57 X10^3/ul (0.83-4.51); Lymphocyte % 43.1 % (19-41); Mean Corp Hgb Conc 30.7 g/dL (32-36); Mean Corpuscular Hgb 31.2 pg (27.0-32.0); Mean Corpuscular Volume 101.7 fL (81-99); Mean Platelet Vol. 9.5 fl (6.2-12.0); Monocyte# 0.71 X10^3/uL; Monocyte% 11.9 % (0-10); NRBC Flagged by Analyzer 0 % (0-5); Neutrophil # 2.17 X10^3/uL (2.7-7.7); Neutrophil % 36.4 % (47-70); Platelet Count 254 K/mm3 (150-450); RBC Distribution Width CV 13.4 % (11.6-14.6); RBC Distribution Width SD 50.3 fl (35.1-43.9); Red Blood Count 3.56 M/mm3 (4.2-5.4)
[2022-08-25 09:44] LABS: Anion Gap 5 (5-15); BUN 12 mg/dL (7-18); Calcium,Total 8.5 mg/dL (8.5-10.1); Chloride 109 mmol/L (98-107); Creatinine, Serum 0.86 mg/dL (0.55-1.02); EST Glomerular Filtration Rate 70 mL/min (>60); Est Glom Filt Rate - Afr Amer 84 mL/min (>60); Glucose 87 mg/dL (74-106); Potassium 4.4 mmol/L (3.5-5.1); Sodium Level 143 mmol/L (136-145)
== END ==
LOC: OLS.SW 06:40
PROVIDERS: PCP Family Medicine; Visit Provider Internal Medicine
DX: R68.89 Other general symptoms and signs (principal); Z13.228 Encounter for screening for other metabolic disorders
CPT/HCPCS: 36415; 80048; 85025

== ENCOUNTER 2022-08-27 21:45 | Emergency (ER) | payer MEDICARE, MEDICAID, SELFPAY ==
[2022-08-27 21:47] VITALS: BP 124/57; PULSE 58; RESP 18; TEMP 36.2; O2SAT 99; BMI 22.0
--- NOTE | 2022-08-27 22:04 | CT_ITS ---
EXAM: CT HEAD WITHOUT INTRAVENOUS CONTRAST CLINICAL INDICATION: head injury TECHNIQUE: Multiple axial images were obtained of the head without intravenous contrast. This CT exam was performed using one or more of the following dose reduction techniques: automated exposure control, adjustment of the mA and/or kV according to patient size, and/or use of iterative reconstruction technique. COMPARISON: 04/15/2022 FINDINGS: BRAIN AND EXTRA-AXIAL SPACES: The ventricular system and cortical sulci are mildly enlarged in size. There is minimal hypoattenuation in the periventricular white matter. No intra- or extra-axial hemorrhage. No evidence of acute infarct. No intracranial mass or mass effect. There is preservation of the valera/white matter interface. Posterior fossa structures are unremarkable. Basal cisterns are patent. BONES/JOINTS: Unremarkable. No discrete lytic or blastic abnormalities. SINUSES: Unremarkable as visualized. Clear. MASTOID AIR CELLS: Unremarkable. Clear. ORBITS: Visualized globes, extraocular muscles, optic nerves and retrobulbar fat appear unremarkable. CT/Brain/Head without Contrast IMPRESSION: 1. No acute intracranial abnormality. There has been no significant change from the reference exam. 2. Stable underlying senescent change with small vessel ischemia. Electronically Signed: Kushal Medina MD at 22:52 EDT ,
--- NOTE | 2022-08-27 22:04 | CT_ITS ---
EXAM: CT CERVICAL SPINE WITHOUT INTRAVENOUS CONTRAST CLINICAL INDICATION: pain TECHNIQUE: Helically acquired images were obtained of the cervical spine without intravenous contrast. 2D reformatted images were reviewed. This CT exam was performed using one or more of the following dose reduction techniques: automated exposure control, adjustment of the mA and/or kV according to patient size, and/or use of iterative reconstruction technique. COMPARISON: 04/15/2022 FINDINGS: VERTEBRAE: See below. DISCS/SPINAL CANAL/NEURAL FORAMINA: There is disc space narrowing at C4-5, C5-6 and C6-7. There is left bony neural foraminal narrowing at C4-5. There is right bony neural foraminal narrowing at C5-6. SOFT TISSUES: Unremarkable. No prevertebral soft tissue swelling. LYMPH NODES: Unremarkable. No cervical adenopathy. LUNG APICES: Unremarkable as visualized. Clear. CT/Spine Cervical without Contras IMPRESSION: 1. No acute osseous abnormalities of the cervical spine. 2. Degenerative changes with disc space narrowing and bony neural foraminal narrowing. Electronically Signed: Kushal Medina MD at 22:55 EDT ,
--- NOTE | 2022-08-27 22:08 | EDS_ITS ---
HPI History of Present Illness Chief Complaint: Fall Narrative Narrative: Patient is a 71-year-old female from the group home with past medical history of bipolar disorder Alzheimer's dementia generalized anxiety asthma and generalized muscle weakness with history of recurrent falls she is a DNR [facility] arrest. She is not on any type of blood thinner. She falls frequently secondary to her history of generalized muscle weakness. Patient reports she had a mechanical fall this evening and she struck the right side of her head off her dresser/nightstand. She denies any loss of consciousness but with the head trauma as well as pain in the right arm/shoulder region she was sent in secondary to potential underlying injury. Otherwise nursing reports patient is at her baseline mental status [facility] Medical History Alzheimer's dementia Anxiety Asthma High cholesterol Home Medications aspirin 81 mg tablet,delayed release 81 mg PO DAILY HEART HEALTH 01/18/22 [History Last Taken 01/18/22] atorvastatin 10 mg tablet 10 mg PO QHS CHOLESTEROL 01/18/22 [History Last Taken 01/17/22] cetirizine 10 mg tablet (Zyrtec) 10 mg PO DAILY ALLERGIES 01/18/22 [History Last Taken 01/18/22] donepezil 10 mg tablet 10 mg PO DAILY ALZHEIMERS 01/18/22 [History Last Taken 01/18/22] lidocaine 4 % topical patch (Lidocaine Pain Relief) 1 patch topical DAILY PAIN 01/18/22 [History Last Taken 01/18/22] multivitamin 1 tab PO DAILY HEALTH MAINTENANCE 01/18/22 [History Last Taken 01/18/22] oxybutynin chloride 10 mg tablet,extended release 24 hr 10 mg PO BID BLADDER DYSFUNCTION 01/18/22 [History Last Taken 01/18/22] primidone 50 mg tablet 150 mg PO BID TREMORS 01/18/22 [History Last Taken 01/18/22] propranolol 20 mg tablet 20 mg PO BID HYPERTENSION 01/18/22 [History Last Taken 01/18/22] sennosides 8.6 mg-docusate sodium 50 mg tablet (Senna Plus) 1 tab PO BID CONSTIPATION 01/18/22 [History Last Taken 01/18/22] venlafaxine 150 mg capsule,extended release 24 hr (Effexor XR) 150 mg PO DAILY ANXIETY 01/18/22 [History Last Taken 01/18/22] venlafaxine 75 mg capsule,extended release 24 hr (Effexor XR) 75 mg PO DAILY ANXIETY 01/18/22 [History Last Taken 01/18/22] clonazepam 0.5 mg tablet 0.25 mg PO BID ANXIETY 07/01/22 [History Last Taken Unknown] divalproex 250 mg tablet,delayed release 250 mg PO BID 07/01/22 [History Last Taken Unknown] docusate sodium 100 mg capsule 100 mg PO BID 07/01/22 [History Last Taken Unknown] gabapentin 300 mg capsule 300 mg PO BID 07/01/22 [History Last Taken Unknown] guaifenesin 100 mg/5 mL oral liquid 200 mg PO Q4H PRN 07/01/22 [History Last Taken Unknown] levothyroxine 50 mcg capsule 50 mcg PO DAILY 07/01/22 [History Last Taken Unknown] melatonin 3 mg capsule 3 mg PO HS 07/01/22 [History Last Taken Unknown] memantine 10 mg tablet 10 mg PO BID ALZHEIMERS 07/01/22 [History Last Taken Unknown] naproxen sodium 220 mg tablet (Aleve) 440 mg PO BID PAIN 07/01/22 [History Last Taken Unknown] omeprazole 20 mg capsule,delayed release 20 mg PO DAILY 07/01/22 [History Last Taken Unknown] risperidone 0.25 mg tablet 0.25 mg PO BID 07/01/22 [History Last Taken Unknown] trazodone 150 mg tablet 125 mg PO QHS INSOMNIA 07/01/22 [History Last Taken Unknown] Allergy/AdvReac Type Severity Reaction Status Date / Time codeine Allergy Severe Upset Verified 08/27/22 21:50 Stomach Family History (Updated 07/01/22 @ 10:01 by India Amezcua) Father CVA (cerebral vascular accident) Father No problems noted. Grandfather CVA (cerebral vascular accident) Surgical History History of hysterectomy Social History (Updated 07/01/22 @ 10:02 by India Amezcua) Smoking Status: Never smoker second hand exposure: No alcohol intake: never substance use type: does not use what type of physical activity do you participate in: none ROS ROS ED Constitutional Constitutional ED: Denies chills or fever(s) Eyes Eyes: Denies blurry vision or change in vision ENT ENT ED: Denies sore throat Cardiovascular Cardiovascular: Denies chest pain Respiratory/Chest Respiratory/Chest: Denies cough or dyspnea Gastrointestinal Gastrointestinal: Denies abdominal pain, diarrhea, nausea or vomiting Genitourinary Genitourinary ED: Denies dysuria Musculoskeletal Musculoskeletal: Reports neck pain and other Details: Positive right shoulder pain ; Denies back pain Integumentary Reports Abrasions; Denies rash Neurologic Neurologic: Reports weakness; Denies headache(s) Hematologic/Lymphatic Hematologic/Lymphatic: Denies easy bleeding or easy bruising EXAM Physical Exam Const Vital Signs: 08/27/22 21:47 08/27/22 22:18 Temperature 97.1 F L Temperature Source Temporal Pulse Rate 58 L Respiratory Rate 18 Respiratory Effort Normal Blood Pressure 124/57 H Blood Pressure Mean 79 Pulse Ox 99 Oxygen Delivery Method Room Air Positive well nourished and well developed General Appearance ED: well developed HEENT HEENT Narrative: Has a 1 x 2 cm area of hematoma along the right temporal/parietal portion of the scalp consistent with history of fall and head injury. Otherwise there is no signs of depressed or basilar skull fracture Eyes PERRL and EOMs intact bilaterally Eyes Narrative: No hyphema Neck Neck Narrative: No bony deformity or step-off of the cervical spine but there is midline cervical spine pain as well as right paracervical tenderness noted Chest Wall palpation of chest normal Chest Narrative: No bony deformity or crepitance Resp normal respiratory effort and clear to auscultation bilaterally Resp Narrative: Breath sounds are diminished throughout but overall clear to auscultation with no signs of distress Cardio regular rate and regular rhythm GI normal to inspection, nondistended, normoactive bowel sounds, non-tender, non- distended and no masses Auscultation: normoactive bowel sounds Palpation: soft Back/Spine Back/Spine Narrative: No bony deformity or step-off of the thoracic or lumbar spine no midline pain on palpation Extremity Extremity Narrative: Right upper extremity is neurovascular intact. There is pain with palpation over top the shoulder region diffusely without obvious bony deformity or joint effusion or sulcus sign. Active range of motion is decreased secondary to pain but there is full passive range of motion Pelvis is stable there is no shortening or external rotation of either lower extremity. Neuro CN's II-XII intact bilaterally Neuro Narrative: Patient is at her baseline mental status with out obvious focal neurologic deficit Sensorium / Orientation: alert Psych mental status grossly normal Skin Skin Narrative: Hematoma to the right temporal/parietal portion of the scalp as documented above MDM MDM MDM Narrative Medical decision making narrative: Patient presented to the ER with stable vitals and at her baseline mental status. She reported a mechanical fall and therefore there is no need for c ardiac or syncope work-up. With report of head injury and signs of trauma along the right temporal/parietal portion of the scalp there is concern for rupture to the middle meningeal artery skull fracture epidural or subdural hematoma. With the fall there is also concern for right shoulder fracture or dislocation or a pelvic fracture such as pubic rami or femoral neck. Therefore imaging studies were obtained. CTs revealed no acute traumatic finding and x-rays also showed no signs of acute injury. On reevaluation the patient is resting comfortably and she is at her baseline mental status and therefore there is no need for further work-up and he is otherwise safe for discharge. History & Record Review Discussion w/independent historian: EMS personnel and Patient Radiography Diagnostic Testing: Clinical Impression(s) from Imaging Studies Brain CT 08/27/22 22:04 IMPRESSION: 1. No acute intracranial abnormality. There has been no significant change from the reference exam. 2. Stable underlying senescent change with small vessel ischemia. Electronically Signed: Kushal Medina MD at 22:52 EDT , Cervical Spine CT 08/27/22 22:04 IMPRESSION: 1. No acute osseous abnormalities of the cervical spine. 2. Degenerative changes with disc space narrowing and bony neural foraminal narrowing. Electronically Signed: Kushal Medina MD at 22:55 EDT , Pelvis X-Ray 08/27/22 22:25 IMPRESSION: No evidence of displaced pelvic fracture. Electronically Signed: Kushal Medina MD at 23:02 EDT , Shoulder X-Ray 08/27/22 22:25 IMPRESSION: Negative right shoulder x-rays. Electronically Signed: Kushal Medina MD at 22:59 EDT , Right shoulder x-ray as interpreted by the emergency medicine physician reveals no acute fracture or dislocation 1 view pelvis x-rays interpreted by the emergency medicine physician reveals no acute fracture or dislocation Discharge Plan Triage Chief Complaint: Fall ED Provider: Raoul Da Silva Dx/Rx/DC Orders Clinical Impression: Closed head injury, Acute cervical myofascial strain, Contusion of right shoulder, Alzheimer's dementia, Abnormality of gait and mobility Instructions: ED Contusion, Upper Extremity, ED Head Injury (Adult) Prescriptions: No Action gabapentin 300 mg capsule 300 mg PO BID divalproex 250 mg tablet,delayed release (DR/EC) 250 mg PO BID docusate sodium 100 mg capsule 100 mg PO BID guaifenesin 100 mg/5 mL liquid 200 mg PO Q4H PRN levothyroxine 50 mcg capsule 50 mcg PO DAILY melatonin 3 mg capsule 3 mg PO HS omeprazole 20 mg capsule,delayed release(DR/EC) 20 mg PO DAILY risperidone 0.25 mg tablet 0.25 mg PO BID Rx Instructions: Take one tab every AM and HS multivitamin Tablet 1 tab PO DAILY primidone 50 mg Tablet 150 mg PO BID venlafaxine [Effexor XR] 75 mg Capsule,Extended Release 24hr 75 mg PO DAILY lidocaine [Lidocaine Pain Relief] 4 % Adhesive Patch,Medicated 1 patch TOPICAL DAILY cetirizine [Zyrtec] 10 mg Tablet 10 mg PO DAILY atorvastatin 10 mg Tablet 10 mg PO QHS oxybutynin chloride 10 mg Tablet Extended Release 24hr 10 mg PO BID donepezil 10 mg Tablet 10 mg PO DAILY sennosides-docusate sodium [Senna Plus] 8.6-50 mg Tablet 1 tab PO BID venlafaxine [Effexor XR] 150 mg Capsule,Extended Release 24hr 150 mg PO DAILY aspirin [Aspirin Low-Strength] 81 mg Tablet,Delayed Release (Dr/Ec) 81 mg PO DAILY propranolol 20 mg Tablet 20 mg PO BID clonazepam 0.5 mg tablet 0.25 mg PO BID Rx Instructions: Take in AM and PM for anxiety naproxen sodium [Aleve] 220 mg tablet 440 mg PO BID memantine 10 mg tablet 10 mg PO BID Rx Instructions: Take one 10 mg in AM Take one 10 mg at HS trazodone 150 mg tablet 125 mg PO QHS Rx Instructions: Patient is given 125mg of Trazodone 1 100mg tab and 1/2 tab of 50mg Primary Care Provider: Claudia Anderson Referrals: Claudia Anderson MD [Primary Care Provider] - Disposition Disposition: Home, Self Care
--- NOTE | 2022-08-27 22:25 | RAD_ITS ---
EXAM: XR RIGHT SHOULDER COMPLETE, 2 OR MORE VIEWS CLINICAL INDICATION: pain TECHNIQUE: Two or more views of the right shoulder. COMPARISON: No relevant prior studies available. FINDINGS: BONES/JOINTS: Unremarkable. No acute fracture. No subluxation. Normal alignment. Preservation of the joint space. No sclerotic or destructive changes observed. SOFT TISSUES: Unremarkable. No soft tissue swelling or gas. No radiopaque foreign body. RAD/Shoulder min 2 Views IMPRESSION: Negative right shoulder x-rays. Electronically Signed: Kushal Medina MD at 22:59 EDT ,
--- NOTE | 2022-08-27 22:25 | RAD_ITS ---
EXAM: XR PELVIS, 1 OR 2 VIEWS CLINICAL INDICATION: pain TECHNIQUE: Frontal view of the pelvis. COMPARISON: No relevant prior studies available. FINDINGS: BONES/JOINTS: Unremarkable. No displaced fracture. No destructive or sclerotic lesions. Note that overlapping bowel shadows may however obscure fine detail. Sacroiliac joints are unremarkable. No widening of the pubic symphysis. The articular structures are unremarkable. SOFT TISSUES: Unremarkable. No soft tissue swelling or gas. RAD/Pelvis 1 or 2 Views IMPRESSION: No evidence of displaced pelvic fracture. Electronically Signed: Kushal Medina MD at 23:02 EDT ,
--- NOTE | 2022-08-27 23:18 | ED.RN ---
CALLED PHYSICIANS @[id number] GIVEN 60-90 MIN ETA.
== END 2022-08-28 00:20 | disposition home or self-care (01) ==
PROVIDERS: Emergency Provider Emergency Medicine; PCP Internal Medicine; Visit Provider Emergency Medicine
DX: S09.90XA Unspecified injury of head, initial encounter (principal); F02.80 Dementia in other diseases classified elsewhere, unspecified severity, without behavioral disturbance, psychotic disturbance, mood disturbance, and anxiety; G30.9 Alzheimer's disease, unspecified; F31.9 Bipolar disorder, unspecified; E78.00 Pure hypercholesterolemia, unspecified; M62.81 Muscle weakness (generalized); R26.9 Unspecified abnormalities of gait and mobility; S40.011A Contusion of right shoulder, initial encounter; S16.1XXA Strain of muscle, fascia and tendon at neck level, initial encounter; Z91.81 History of falling; Z66 Do not resuscitate; J45.909 Unspecified asthma, uncomplicated; W19.XXXA Unspecified fall, initial encounter
CPT/HCPCS: 70450; 72125; 72170; 73030; 99284

== ENCOUNTER → 2022-09-01 | Outpatient (REF) | payer MEDICARE, MEDICAID, SELFPAY ==
[2022-09-01 08:51] LABS: Bacteria 0 SEEN /hpf (None Seen); Mucous, Urine 0 SEEN /hpf (<or=2+); Red Blood Cells-Urine 0 SEEN /hpf (0-5); Squamous Epithelial Cells - UA 0 SEEN /hpf (5-10); White Blood Cells 0 SEEN /hpf (0-5)
[2022-09-01 09:01] LABS: Color, Urine Yellow (Yellow); Glucose, Dipstick Normal (Normal); Ketone-Dipstick Negative (Negative); Leukocyte Esterase-Dipstick Negative /ul (Negative); Nitrite-Dipstick Negative (Negative); Occult Blood-Urine Negative /ul (Negative); Protein-Dipstick Negative (Negative); Urine Bilirubin Dipstick Negative (Negative); Urine Clarity Sl. Cloudy (Clear); Urine Urobilinogen Normal (Normal)
[2022-09-01 09:43] LABS: Absolute Lymphocyte Count 2.48 X10^3/uL (0.83-4.51); Absolute Neutrophil Count 1.9 X10^3/uL (2.0-7.7); Basophil# 0.04 X10^3/uL; Basophil% 0.7 % (0-1); Eosinophil# 0.45 X10^3/uL; Eosinophils% 8.1 % (0-5); Hematocrit 35.8 % (37-47); Hemoglobin 11.1 g/dL (12.0-15.0); Lymphocyte # 2.48 X10^3/ul (0.83-4.51); Lymphocyte % 44.8 % (19-41); Mean Corpuscular Hgb 31.5 pg (27.0-32.0); Mean Corpuscular Volume 101.7 fL (81-99); Mean Platelet Vol. 9.8 fl (6.2-12.0); Monocyte# 0.64 X10^3/uL; Monocyte% 11.6 % (0-10); NRBC Flagged by Analyzer 0 % (0-5); Neutrophil % 34.4 % (47-70); Platelet Count 262 K/mm3 (150-450); RBC Distribution Width CV 13.7 % (11.6-14.6); RBC Distribution Width SD 51.1 fl (35.1-43.9); Red Blood Count 3.52 M/mm3 (4.2-5.4); White Blood Count 5.5 K/mm3 (4.4-11.0)
[2022-09-01 09:59] LABS: Anion Gap 4 (5-15); BUN 9 mg/dL (7-18); BUN/Creat Ratio 13.8 RATIO (10-20); Calcium,Total 8.3 mg/dL (8.5-10.1); Chloride 108 mmol/L (98-107); Creatinine, Serum 0.65 mg/dL (0.55-1.02); EST Glomerular Filtration Rate 96 mL/min (>60); Est Glom Filt Rate - Afr Amer 116 mL/min (>60); Glucose 85 mg/dL (74-106); Potassium 4.2 mmol/L (3.5-5.1); Sodium Level 141 mmol/L (136-145)
== END ==
LOC: OLS.SW 05:00
PROVIDERS: PCP Internal Medicine; Visit Provider Internal Medicine
DX: N39.0 Urinary tract infection, site not specified (principal); E78.5 Hyperlipidemia, unspecified; N31.8 Other neuromuscular dysfunction of bladder; E46 Unspecified protein-calorie malnutrition; K29.60 Other gastritis without bleeding
CPT/HCPCS: 36415; 80048; 81001; 85025

== ENCOUNTER → 2022-09-08 | Outpatient (REF) | payer MEDICARE, MEDICAID, SELFPAY ==
[2022-09-08 09:24] LABS: Absolute Lymphocyte Count 2.41 X10^3/uL (0.83-4.51); Absolute Neutrophil Count 2.4 X10^3/uL (2.0-7.7); Basophil# 0.05 X10^3/uL; Basophil% 0.8 % (0-1); Eosinophil# 0.39 X10^3/uL; Eosinophils% 6.6 % (0-5); Hematocrit 37.3 % (37-47); Hemoglobin 11.5 g/dL (12.0-15.0); Lymphocyte # 2.41 X10^3/ul (0.83-4.51); Lymphocyte % 40.8 % (19-41); Mean Corp Hgb Conc 30.8 g/dL (32-36); Mean Corpuscular Hgb 31.7 pg (27.0-32.0); Mean Corpuscular Volume 102.8 fL (81-99); Mean Platelet Vol. 9.9 fl (6.2-12.0); Monocyte# 0.64 X10^3/uL; Monocyte% 10.8 % (0-10); NRBC Flagged by Analyzer 0 % (0-5); Neutrophil # 2.39 X10^3/uL (2.7-7.7); Neutrophil % 40.7 % (47-70); Platelet Count 270 K/mm3 (150-450); RBC Distribution Width CV 13.6 % (11.6-14.6); RBC Distribution Width SD 51.6 fl (35.1-43.9); Red Blood Count 3.63 M/mm3 (4.2-5.4); White Blood Count 5.9 K/mm3 (4.4-11.0)
[2022-09-08 09:36] LABS: Vitamin D,25 Hydroxy 49.5 ng/mL
[2022-09-08 09:53] LABS: Anion Gap 4 (5-15); BUN 12 mg/dL (7-18); Calcium,Total 8.7 mg/dL (8.5-10.1); Chloride 106 mmol/L (98-107); Creatinine, Serum 0.86 mg/dL (0.55-1.02); EST Glomerular Filtration Rate 69 mL/min (>60); Est Glom Filt Rate - Afr Amer 84 mL/min (>60); Glucose 84 mg/dL (74-106); Potassium 4.6 mmol/L (3.5-5.1); Sodium Level 139 mmol/L (136-145)
== END ==
LOC: OLS.SW 05:00
PROVIDERS: PCP Internal Medicine; Visit Provider Internal Medicine
DX: Z13.228 Encounter for screening for other metabolic disorders (principal); E55.9 Vitamin D deficiency, unspecified; R68.89 Other general symptoms and signs
CPT/HCPCS: 36415; 80048; 82306; 85025

== ENCOUNTER 2022-09-14 09:39 | Day surgery (SDC) | payer MEDICARE, MEDICAID, SELFPAY ==
[2022-09-14 10:13] VITALS: BP 152/85; PULSE 55; RESP 18; TEMP 36.6; O2SAT 97; BMI 21.4
[2022-09-14] MEDS: Lactated Ringers 1,000 ML 15 ML IV (10:16)
--- NOTE | 2022-09-14 10:51 | PCM.HP.BLA ---
History and Physical Date of Admission: 09/14/22 Intake Vital Signs ? 08/27/2320:47 09/07/2307:52 Height 5 ft 5 ft Weight: 112 lb 14.027 oz 110 lb BMI 22.0 21.4 BP 124/57 H 96/64 Blood Pressure Location ? Rt brachial Position ? Sitting Respiration 18 16 Pulse 58 L 71 Pulse Source ? Monitor Temp 97.1 F L 96.8 F L Temp Source Temporal Temporal Pulse Oximetry (%) 99 98 Intake Visit Reasons:?HEMORRHOIDS Chief Complaint: hemorroids Allergies codeine Allergy (Severe, Verified 09/06/22 08:54) Upset Stomach Medications aspirin 81 mg tablet,delayed release 81 mg PO DAILY HEART HEALTH 01/18/22 [History Confirmed 09/06/22] atorvastatin 10 mg tablet 10 mg PO QHS CHOLESTEROL 01/18/22 [History Confirmed 09/06/22] cetirizine 10 mg tablet (Zyrtec) 10 mg PO DAILY ALLERGIES 01/18/22 [History Confirmed 09/06/22] donepezil 10 mg tablet 10 mg PO DAILY ALZHEIMERS 01/18/22 [History Confirmed 09/06/22] lidocaine 4 % topical patch (Lidocaine Pain Relief) 1 patch topical DAILY PAIN 01/18/22 [History Confirmed 09/06/22] multivitamin 1 tab PO DAILY HEALTH MAINTENANCE 01/18/22 [History Confirmed 09/06/22] oxybutynin chloride 10 mg tablet,extended release 24 hr 10 mg PO BID BLADDER DYSFUNCTION 01/18/22 [History Confirmed 09/06/22] primidone 50 mg tablet 150 mg PO BID TREMORS 01/18/22 [History Confirmed 09/06/22] propranolol 20 mg tablet 20 mg PO BID HYPERTENSION 01/18/22 [History Confirmed 09/06/22] sennosides 8.6 mg-docusate sodium 50 mg tablet (Senna Plus) 1 tab PO BID CONSTIPATION 01/18/22 [History Confirmed 09/06/22] venlafaxine 150 mg capsule,extended release 24 hr (Effexor XR) 150 mg PO DAILY ANXIETY 01/18/22 [History Confirmed 09/06/22] venlafaxine 75 mg capsule,extended release 24 hr (Effexor XR) 75 mg PO DAILY ANXIETY 01/18/22 [History Confirmed 09/06/22] clonazepam 0.5 mg tablet 0.25 mg PO BID ANXIETY 07/01/22 [History Confirmed 09/06/22] divalproex 250 mg tablet,delayed release 250 mg PO BID 07/01/22 [History Confirmed 09/06/22] docusate sodium 100 mg capsule 100 mg PO BID 07/01/22 [History Confirmed 09/06/22] gabapentin 300 mg capsule 300 mg PO BID 07/01/22 [History Confirmed 09/06/22] guaifenesin 100 mg/5 mL oral liquid 200 mg PO Q4H PRN 07/01/22 [History Confirmed 09/06/22] levothyroxine 50 mcg capsule 50 mcg PO DAILY 07/01/22 [History Confirmed 09/06/22] melatonin 3 mg capsule 3 mg PO HS 07/01/22 [History Confirmed 09/06/22] memantine 10 mg tablet 10 mg PO BID ALZHEIMERS 07/01/22 [History Confirmed 09/06/22] naproxen sodium 220 mg tablet (Aleve) 440 mg PO BID PAIN 07/01/22 [History Confirmed 09/06/22] omeprazole 20 mg capsule,delayed release 20 mg PO DAILY 07/01/22 [History Confirmed 09/06/22] risperidone 0.25 mg tablet 0.25 mg PO BID 07/01/22 [History Confirmed 09/06/22] trazodone 150 mg tablet 125 mg PO QHS INSOMNIA 07/01/22 [History Confirmed 09/06/22] PFSH Medical History? Alzheimer's dementia Anxiety Asthma High cholesterol Surgical History? History of hysterectomy Family History? Father CVA (cerebral vascular accident)Father ?? No problems noted. Grandfather CVA (cerebral vascular accident) Social History? Smoking Status:? Never smoker second hand exposure:? No alcohol intake:? never substance use type:? does not use what type of physical activity do you participate in:? none HPI HPI HPI: Patient reports that she has hemorrhoids and they are bothering her.? Patient reports that she is having discomfort especially with bowel movements and she is having bleeding.? She bleeds during most bowel movements and less they are very loose.? She is on 3 laxatives. ROS General General: No weight change, appetite, fatigue, colon cancer, breast cancer or weakness HEENT HEENT: Yes eye surgery; No difficulty swallowing, eye injury, swollen glands or hoarseness Endo Endocrine: No thyroid disease, diabetes mellitus, thyroid cancer, Hair loss, heat intolerance or cold intolerance Skin Skin: No rash or changing moles Breast Breast: No left breast lump, right breast lump, nipple discharge, breast pain, abnormal mammogram, abnormal US or breast enlargement Musc Musculoskeletal: No back problems, arthritis, rheumatoid arthritis, gout or joint pain Cardio Cardiovascular: Yes murmur; No pacemaker, heart disease, atrial fibrillation, high blood pressure, heart attack, heart stent, palpitations, shortness of breat with exertion or chest pain Psych Psychiatric: Yes depression and anxiety; No hearing voices Resp Respiratory: No shortness of breath, No sleep apnea, No cough, No COPD, No asthma, No emphysema and No wheezing Gastro Gastrointestinal: No abdominal pain, No nausea or vomiting, No diarrhea, Yes constipation, No blood in stool, No acid reflux, Yes hemorrhoids, No ulcers, No gallbladder problem and No black,tarry stools Petey Hematologic: No blood thinners, No blood disorders, No bleeding, No anemia and No blood clots Neuro Neurologic: No system reviewed and no additional complaints, except as documented, No as per HPI, No abnormal gait, No abnormal hearing, No abnormal movements, No abnormal speech, No behavioral changes, No burning sensations, No confusion, No convulsions, No disequilibrium, No dizziness, No localized weakness, No frequent falls, No headache(s), No lack of coordination, No loss of vision, No memory loss, No numbness, No other visual disturbances, No radicular pain, No restless legs, No sensory deficit, No syncope, No tingling, No tremor(s), No weakness and No other Exam Const General: cooperative Orientation: alert and oriented x3 HENMT Head: normal to inspection Neck Neck: normal visual inspection and full ROM Chest Chest palpation & inspection: normal inspection of the chest Resp Effort & Inspection: normal respiratory effort Auscultation: clear to auscultation bilaterally Cardio Rate: regular rate Rhythm: regular rhythm GI Inspection: non-distended Palpation: soft and nontender Rectal Exam: hemorrhoids Skin General: no rashes or lesions noted Neuro General: patient alert and patient oriented x3 Extrem General: full ROM Psych Appearance: grossly normal Mental Status: mental status grossly normal Assessment and Plan Assessment and Plan (1) Bleeding hemorrhoids: ?Status:?Acute ?Plan: Patient has hemorrhoids with bleeding and pain.? I discussed hemorrhoidectomy with the patient in detail.? I discussed the risks including but not limited to bleeding, infection, need for further surgery or pain.? Patient understands the risks and is willing to proceed.? I will stop aspirin for 5 days. Willy Mckeon MD Pager: [facility] [address] [place] [address] [address] [place] [address] Office: I have examined the patient and the H&P has been reviewed. There are no clinical changes since date of exam.
--- NOTE | 2022-09-14 12:05 | HEM_PTH ---
PATIENT: JULIANO AGUILAR LOC: [facility] [place] U#:[id number] AGE/SX: 72/F ROOM: RE09/14/[address]: Dr. Willy Mckeon MD : 1950 BED: DIS: 09/14/2022 SPEC #: [id number] RECD: 09/14/22 15:08 STATUS: CAL BARLOW #: [id number] DOUG: 09/14/22 12:[address]: Willy Mckeon DEPT: SURGICAL PATHOLOGY RECD BY: Harleen Shabazz ENTERED: 09/15/22 08:43 SP TYPE: HEMORRHOID OTHR DR: Dr. Claudia Anderson MD Tissues: HEMORRHOIDS Procedures: Surgery Specimen Level III HEADER OPERATION: Hemorrhoidectomy PRE-OP DIAGNOSIS: Hemorrhoids TISSUE SUBMITTED: Hemorrhoids MICROSCOPIC DIAGNOSIS Hemorrhoids, hemorrhoidectomy: Pieces of anorectal mucosa with dilated and congested blood vessels, consistent with hemorrhoids. SJ:narcisa 09/16/2022 MICROSCOPIC DESCRIPTION Slides are reviewed. GROSS DESCRIPTION Received in fixative is one container labeled with the patient's name and designated hemorrhoids. The specimen consists of four variable sized pieces of pink mucosal tissue measuring in aggregate 2.0 x 1.5 x 0.5 cm. All pieces are bisected. The entire specimen is submitted in one cassette. / NED:narcisa 09/15/2022 TC:5 CPT: 94918
[2022-09-14] MEDS: Cefotetan 2 GM in 0.9% NS 100 ML IV (12:21)
[2022-09-14] MEDS: Bupivacaine Mpf 0.5% 30 ML VIAL (12:43)
[2022-09-14] MEDS: Dibucaine 30 GM Tube 1 APPLIC (12:54)
--- NOTE | 2022-09-14 13:06 | PCM.OPRPT ---
Report of Operation Date of Procedure: 09/14/22 Pre-Operative Diagnosis: Bleeding hemorrhoids Post-Operative Diagnosis: Same Surgery/Procedure Performed:: Hemorrhoidectomy internal and external x2 columns Specimen's removed: Hemorrhoids Description of Procedure: Patient was brought back to the operating room and general anesthesia was induced. Next the patient was placed in prone jackknife position and the perineum and a perianal area were prepped and draped. A well-lubricated speculum was placed into the anus. The patient had a large hemorrhoid on either side of the anus and a small area anteriorly that seem to be bleeding. Both of the hemorrhoids were removed using harmonic scalpel. There was good hemostasis. The small area that was anterior was also removed and the smaller segment using the harmonic scalpel. Both of the columns were reapproximated using 3-0 Vicryl suture. The small area was closed using a 3-0 chromic suture. The area was irrigated and suctioned dry and there was good hemostasis with no swelling. A Gelfoam was coated with Dibucaine cream and placed into the anus. Local anesthetic was injected in the perianal area. Dressings were applied and the patient was awoken and taken to PACU in stable condition. Admit VTE Documentation VTE Mechan Device Prophylaxis: SCD's
--- NOTE | 2022-09-14 13:10 | DCINST_ITS ---
Discharge Instructions Procedure Rectal Surgery Diet Discharge Diet: Light diet - advance as tolerated (Pain medication may cause nausea. You should typically eat light foods as you take your pain medication.) Activity Discharge Activity: Return to Normal Activity and May Not Drive (while you are taking narcotic pain medications. Do not drive, work with heavy equipment or sign legal documents for 24 hours after your surgery.) May resume sexual activity in: No Restrictions Additional Activity Instructions:: Be aware that pain medications may cause nausea. You should typically eat light foods as you take your pain medications. Pain medications may also cause constipation, if you have difficulty with this please discuss with your doctor. Dressing / Incision Call your doctor if your incision/area has: Continuous Slow Oozing, Sudden Increased Bleeding, Increased Pain/ Swelling, Increased Redness, Foul Smelling Discharge and Swelling at the incision site Call your doctor if you observe: Uncontrolled pain Additional Dressing/Incision Instructions:: Leave the operative bandage on for 2 days. If a local anesthetic plug was placed in the anal area, try not to expel for [address]ucaine ointment on the perianal area as needed. Sitz baths twice daily and after bowel movements. Follow Up Care Please Follow Up With: Willy Mckeon MD When: Please call to schedule 2 week follow up appointment. [phone] Test Results: Test results from this visit will be discussed in further detail at your follow- up appointment, if applicable. Discharge Plan Admission Attending Provider: Willy Mckeon Primary Care Provider: Claudia Anderson Discharge Orders/Prescriptions Prescriptions: New oxycodone 5 mg tablet 5 - 10 mg PO Q6H PRN (Reason: pain) 5 Days Qty: 30 0RF No Action gabapentin 300 mg capsule 300 mg PO BID divalproex 250 mg tablet,delayed release (DR/EC) 250 mg PO BID docusate sodium 100 mg capsule 100 mg PO BID guaifenesin 100 mg/5 mL liquid 200 mg PO Q4H PRN (Reason: Cough) levothyroxine 50 mcg capsule 50 mcg PO DAILY melatonin 3 mg capsule 3 mg PO HS omeprazole 20 mg capsule,delayed release(DR/EC) 20 mg PO DAILY risperidone 0.25 mg tablet 0.25 mg PO DAILY Rx Instructions: Take one tab every AM and HS primidone 50 mg Tablet 150 mg PO BID venlafaxine [Effexor XR] 75 mg Capsule,Extended Release 24hr 75 mg PO DAILY lidocaine [Lidocaine Pain Relief] 4 % Adhesive Patch,Medicated 1 patch TOPICAL DAILY atorvastatin 10 mg Tablet 10 mg PO QHS oxybutynin chloride 10 mg Tablet Extended Release 24hr 10 mg PO BID donepezil 10 mg Tablet 10 mg PO QHS sennosides-docusate sodium [Senna Plus] 8.6-50 mg Tablet 1 tab PO BID venlafaxine [Effexor XR] 150 mg Capsule,Extended Release 24hr 150 mg PO DAILY aspirin [Aspirin Low-Strength] 81 mg Tablet,Delayed Release (Dr/Ec) 81 mg PO DAILY propranolol 20 mg Tablet 20 mg PO BID naproxen sodium [Aleve] 220 mg tablet 440 mg PO BID memantine 10 mg tablet 10 mg PO BID Rx Instructions: Take one 10 mg in AM Take one 10 mg at HS trazodone 150 mg tablet 150 mg PO QHS Rx Instructions: Patient is given 125mg of Trazodone 1 100mg tab and 1/2 tab of 50mg buspirone 5 mg Tablet 5 mg PO TID escitalopram oxalate [Lexapro] 10 mg Tablet 10 mg PO QHS lactulose 10 gram/15 mL Solution 10 g PO TUTHSA loratadine 10 mg Capsule 10 mg PO DAILY Referrals / Follow Up: Claudia Anderson MD [Primary Care Provider] - Disposition Disposition (needs filled in before D/C Order can be placed): Home, Self Care
[2022-09-14 13:15] VITALS: BP 115/50; BP 152/85; PULSE 72; RESP 18; TEMP 36.6; O2SAT 100
[2022-09-14 13:30] VITALS: BP 102/49; BP 152/85; PULSE 68; RESP 18; O2SAT 95
[2022-09-14 13:38] VITALS: BP 135/65; BP 152/85; PULSE 70; RESP 18; TEMP 36.4; O2SAT 97
--- NOTE | 2022-09-14 14:18 | SUR.PHASEII ---
spoke with Samantha from [facility] to give report on patient and discharge paperwork instructions. Voiced understanding. all questions answered
[2022-09-14 14:35] VITALS: BP 142/61; BP 152/85; PULSE 60; RESP 16; TEMP 36.1; O2SAT 100
== END 2022-09-14 14:58 | disposition home or self-care (01) ==
LOC: SDC 09:43 → AC 09:45
PROVIDERS: PCP Internal Medicine; Referring Provider Surgery; Visit Provider Surgery
PROC: (CPT 46260; principal; 2022-09-14 11:50)
DX: K64.4 Residual hemorrhoidal skin tags (principal); F02.80 Dementia in other diseases classified elsewhere, unspecified severity, without behavioral disturbance, psychotic disturbance, mood disturbance, and anxiety; F31.9 Bipolar disorder, unspecified; K64.8 Other hemorrhoids; F41.9 Anxiety disorder, unspecified; G25.0 Essential tremor; K21.9 Gastro-esophageal reflux disease without esophagitis; E78.00 Pure hypercholesterolemia, unspecified; I10 Essential (primary) hypertension; Z79.899 Other long term (current) drug therapy; Z79.82 Long term (current) use of aspirin
CPT/HCPCS: 46260; 00902; 88304; J7120; J2405

== ENCOUNTER → 2022-09-15 | Outpatient (REF) | payer MEDICARE, MEDICAID, SELFPAY ==
[2022-09-15 11:04] LABS: Absolute Lymphocyte Count 2.14 X10^3/uL (0.83-4.51); Basophil# 0.05 X10^3/uL; Eosinophil# 0.36 X10^3/uL; Hematocrit 35.6 % (37-47); Lymphocyte # 2.14 X10^3/ul (0.83-4.51); Lymphocyte % 41.9 % (19-41); Mean Corp Hgb Conc 30.9 g/dL (32-36); Mean Corpuscular Hgb 31.5 pg (27.0-32.0); Monocyte% 11.7 % (0-10); NRBC Flagged by Analyzer 0 % (0-5); Neutrophil # 1.95 X10^3/uL (2.7-7.7); Neutrophil % 38.2 % (47-70); Platelet Count 277 K/mm3 (150-450); RBC Distribution Width CV 14.1 % (11.6-14.6); RBC Distribution Width SD 52.8 fl (35.1-43.9); Red Blood Count 3.49 M/mm3 (4.2-5.4); White Blood Count 5.1 K/mm3 (4.4-11.0)
[2022-09-15 11:28] LABS: Anion Gap 3 (5-15); BUN 13 mg/dL (7-18); BUN/Creat Ratio 15.2 RATIO (10-20); Chloride 110 mmol/L (98-107); Creatinine, Serum 0.85 mg/dL (0.55-1.02); EST Glomerular Filtration Rate 70 mL/min (>60); Est Glom Filt Rate - Afr Amer 84 mL/min (>60); Glucose 79 mg/dL (74-106); Potassium 4.4 mmol/L (3.5-5.1); Sodium Level 141 mmol/L (136-145)
== END ==
LOC: OLS.SW 07:40
PROVIDERS: PCP Internal Medicine; Visit Provider Internal Medicine
DX: Z13.228 Encounter for screening for other metabolic disorders (principal); R68.89 Other general symptoms and signs
CPT/HCPCS: 36415; 80048; 85025

== ENCOUNTER → 2022-09-22 | Outpatient (REF) | payer MEDICARE, MEDICAID, SELFPAY ==
[2022-09-22 09:19] LABS: Absolute Lymphocyte Count 2.33 X10^3/uL (0.83-4.51); Absolute Neutrophil Count 2.9 X10^3/uL (2.0-7.7); Basophil# 0.04 X10^3/uL; Basophil% 0.6 % (0-1); Eosinophil# 0.38 X10^3/uL; Hematocrit 36.6 % (37-47); Hemoglobin 11.4 g/dL (12.0-15.0); Lymphocyte # 2.33 X10^3/ul (0.83-4.51); Lymphocyte % 36.9 % (19-41); Mean Corp Hgb Conc 31.1 g/dL (32-36); Mean Corpuscular Hgb 32.1 pg (27.0-32.0); Mean Corpuscular Volume 103.1 fL (81-99); Mean Platelet Vol. 10.1 fl (6.2-12.0); Monocyte# 0.68 X10^3/uL; Monocyte% 10.8 % (0-10); NRBC Flagged by Analyzer 0 % (0-5); Neutrophil # 2.87 X10^3/uL (2.7-7.7); Neutrophil % 45.4 % (47-70); Platelet Count 242 K/mm3 (150-450); RBC Distribution Width CV 13.9 % (11.6-14.6); RBC Distribution Width SD 53.5 fl (35.1-43.9); Red Blood Count 3.55 M/mm3 (4.2-5.4); White Blood Count 6.3 K/mm3 (4.4-11.0)
[2022-09-22 09:58] LABS: Anion Gap 5 (5-15); BUN 9 mg/dL (7-18); BUN/Creat Ratio 11.8 RATIO (10-20); Calcium,Total 8.5 mg/dL (8.5-10.1); Chloride 107 mmol/L (98-107); Creatinine, Serum 0.76 mg/dL (0.55-1.02); EST Glomerular Filtration Rate 79 mL/min (>60); Est Glom Filt Rate - Afr Amer 96 mL/min (>60); Glucose 78 mg/dL (74-106); Potassium 4.2 mmol/L (3.5-5.1); Sodium Level 140 mmol/L (136-145)
== END ==
LOC: OLS.SW 05:00
PROVIDERS: PCP Internal Medicine; Visit Provider Internal Medicine
DX: F03.90 Unspecified dementia, unspecified severity, without behavioral disturbance, psychotic disturbance, mood disturbance, and anxiety (principal); E78.5 Hyperlipidemia, unspecified
CPT/HCPCS: 36415; 80048; 85025

== ENCOUNTER → 2022-09-29 | Outpatient (REF) | payer MEDICARE, MEDICAID, SELFPAY ==
[2022-09-29 09:26] LABS: Absolute Lymphocyte Count 2.37 X10^3/uL (0.83-4.51); Absolute Neutrophil Count 1.5 X10^3/uL (2.0-7.7); Basophil# 0.04 X10^3/uL; Basophil% 0.9 % (0-1); Eosinophil# 0.23 X10^3/uL; Hematocrit 37.1 % (37-47); Hemoglobin 11.7 g/dL (12.0-15.0); Lymphocyte # 2.37 X10^3/ul (0.83-4.51); Mean Corp Hgb Conc 31.5 g/dL (32-36); Mean Corpuscular Hgb 31.8 pg (27.0-32.0); Mean Corpuscular Volume 100.8 fL (81-99); Mean Platelet Vol. 9.7 fl (6.2-12.0); Monocyte# 0.46 X10^3/uL; Monocyte% 10.1 % (0-10); NRBC Flagged by Analyzer 0 % (0-5); Neutrophil # 1.45 X10^3/uL (2.7-7.7); Neutrophil % 31.8 % (47-70); Platelet Count 269 K/mm3 (150-450); RBC Distribution Width CV 13.6 % (11.6-14.6); RBC Distribution Width SD 50.7 fl (35.1-43.9); Red Blood Count 3.68 M/mm3 (4.2-5.4); White Blood Count 4.6 K/mm3 (4.4-11.0)
[2022-09-29 09:57] LABS: Anion Gap 4 (5-15); BUN 5 mg/dL (7-18); BUN/Creat Ratio 7.1 RATIO (10-20); Calcium,Total 8.3 mg/dL (8.5-10.1); Chloride 107 mmol/L (98-107); Creatinine, Serum 0.71 mg/dL (0.55-1.02); EST Glomerular Filtration Rate 87 mL/min (>60); Est Glom Filt Rate - Afr Amer 105 mL/min (>60); Glucose 79 mg/dL (74-106); Potassium 3.8 mmol/L (3.5-5.1); Sodium Level 142 mmol/L (136-145)
== END ==
LOC: OLS.SW 05:00
PROVIDERS: PCP Internal Medicine; Visit Provider Internal Medicine
DX: Z13.228 Encounter for screening for other metabolic disorders (principal); R68.89 Other general symptoms and signs
CPT/HCPCS: 36415; 80048; 85025

== ENCOUNTER 2022-11-17 12:32 | Outpatient (CLI) | payer MEDICARE, MEDICAID, SELFPAY ==
--- NOTE | 2022-11-17 12:35 | RAD_ITS ---
STUDY: X-RAY - UNILATERAL RIBS ( RIGHT ) REASON FOR EXAM: Female, 72 years old. right lower rib pain s/p fall last week TECHNIQUE: 4 view(s) of the ribs. COMPARISON: None. FINDINGS: There is severe demineralization of the osseous structures which diminishes the diagnostic sensitivity of this examination, however there is no visualized rib fracture. Chronic interstitial changes noted in the visualized lung king without a superimposed process RAD/Ribs Unil 2V No CXR IMPRESSION: Osteopenia, no demonstrated acute displaced rib fracture, pleural thickening or pneumothorax. Electronically Signed: Scout Mckeon MD at 16:48 EDT ,
== END 2022-11-17 23:59 | disposition home or self-care (01) ==
LOC: MTRAD 12:33
PROVIDERS: PCP Internal Medicine; Referring Provider Psychiatry & Neurology Neurology; Visit Provider Psychiatry & Neurology Neurology
DX: R07.81 Pleurodynia (principal); J45.909 Unspecified asthma, uncomplicated; E78.00 Pure hypercholesterolemia, unspecified
CPT/HCPCS: 36415; 71100; 82140

== ENCOUNTER → 2022-11-17 | Outpatient (REF) | payer MEDICARE, MEDICAID, SELFPAY ==
[2022-11-17 08:09] LABS: Ammonia < 10.0 umol/L (11-32)
== END ==
LOC: OLS.SW 07:28
PROVIDERS: PCP Internal Medicine; Visit Provider Internal Medicine
DX: J45.909 Unspecified asthma, uncomplicated (principal); E78.00 Pure hypercholesterolemia, unspecified
CPT/HCPCS: 36415; 82140

== ENCOUNTER 2022-12-15 09:38 | Emergency (ER) | payer MEDICARE, MEDICAID, SELFPAY ==
[2022-12-15 09:39] VITALS: BP 97/69; PULSE 67; RESP 16; TEMP 37.1; O2SAT 93; BMI 22.7
--- NOTE | 2022-12-15 09:54 | RAD_ITS ---
STUDY: X-RAY - THORACIC SPINE REASON FOR EXAM: Female, 72 years old. Back pain following a fall. TECHNIQUE: 3 view(s) of the thoracic spine were obtained. COMPARISON: Comparison is made with prior study dated December 02, 2022. FINDINGS: Normal kyphosis of the thoracic spine. There is no substantial scoliosis. There is demineralization of the thoracic spine with endplate spondylosis. There is multilevel disc space narrowing of the thoracic spine. 50% loss of height of the T11 vertebra. This is unchanged. The soft tissue structures are unremarkable. RAD/Thoracic Spine 3 Views IMPRESSION: 50% loss of height of the T11 vertebrae. This is unchanged. Electronically Signed: Josh Camacho MD at 11:12 EDT ,
--- NOTE | 2022-12-15 10:01 | ED.VIS.FALL ---
HPI HPI - Fall History of Present Illness Chief Complaint: Fall Narrative Narrative: 72-year-old male presenting for evaluation after an unwitnessed fall. Patient is a poor informant secondary to dementia. Apparently she was alert only to self but is typically alert and oriented x3. She is alert and awake currently. She complains of chronic back pain compression fracture. She states that she was going to the restroom and is unsure how she fell, however she thinks she might of tripped on some strips that were placed on the floor for instructional facilitator. She does state that she fell and hit her head either on or near the toilet paper dispenser. She is not sure if she lost consciousness. She does deny neck pain. She has no pain in her extremities. Patient tells me initially that she was fine prior to the fall but then states she cannot remember much before the fall. She also then stated that she was coughing all night. She does not believe she had a fever or chills. She does complain of right-sided headache where she hit her head against the wall. Denies lacerations, bruising. No visual complaints, nausea, vomiting, lightheadedness or dizziness. [facility] Medical History Alzheimer's dementia Anxiety Arthritis Asthma Back pain Bipolar disorder Bladder disease Chronic constipation Dementia Essential tremor Gastric reflux High cholesterol Hx of hemorrhoids Insomnia Lives in [facility] Non-smoker Thyroid disease Home Medications aspirin 81 mg tablet,delayed release 81 mg PO DAILY HEART HEALTH 01/18/22 [History Last Taken 01/18/22] atorvastatin 10 mg tablet 10 mg PO QHS CHOLESTEROL 01/18/22 [History Last Taken 01/17/22] donepezil 10 mg tablet 10 mg PO QHS ALZHEIMERS 01/18/22 [History Last Taken 01/18/22] lidocaine 4 % topical patch (Lidocaine Pain Relief) 1 patch topical DAILY PAIN 01/18/22 [History Last Taken 01/18/22] oxybutynin chloride 10 mg tablet,extended release 24 hr 10 mg PO BID BLADDER DYSFUNCTION 01/18/22 [History Last Taken 01/18/22] primidone 50 mg tablet 150 mg PO BID TREMORS 01/18/22 [History Last Taken 01/18/22] propranolol 20 mg tablet 20 mg PO BID HYPERTENSION 01/18/22 [History Last Taken 01/18/22] sennosides 8.6 mg-docusate sodium 50 mg tablet (Senna Plus) 1 tab PO BID CONSTIPATION 01/18/22 [History Last Taken 01/18/22] venlafaxine 150 mg capsule,extended release 24 hr (Effexor XR) 150 mg PO DAILY ANXIETY 01/18/22 [History Last Taken 01/18/22] venlafaxine 75 mg capsule,extended release 24 hr (Effexor XR) 75 mg PO DAILY ANXIETY 01/18/22 [History Last Taken 01/18/22] docusate sodium 100 mg capsule 100 mg PO BID 07/01/22 [History Last Taken Unknown] gabapentin 300 mg capsule 300 mg PO BID 07/01/22 [History Last Taken Unknown] guaifenesin 100 mg/5 mL oral liquid 200 mg PO Q4H PRN Cough 07/01/22 [History Last Taken Unknown] levothyroxine 50 mcg capsule 50 mcg PO DAILY 07/01/22 [History Last Taken Unknown] melatonin 3 mg capsule 3 mg PO HS 07/01/22 [History Last Taken Unknown] memantine 10 mg tablet 10 mg PO BID ALZHEIMERS 07/01/22 [History Last Taken Unknown] omeprazole 20 mg capsule,delayed release 20 mg PO DAILY 07/01/22 [History Last Taken Unknown] risperidone 0.25 mg tablet 0.25 mg PO DAILY 07/01/22 [History Last Taken Unknown] trazodone 150 mg tablet 150 mg PO QHS INSOMNIA 07/01/22 [History Last Taken Unknown] buspirone 5 mg tablet 5 mg PO TID 09/09/22 [History Last Taken Unknown] lactulose 10 gram/15 mL oral solution 10 g PO TUTHSA 09/09/22 [History Last Taken Unknown] loratadine 10 mg capsule 10 mg PO DAILY 09/09/22 [History Last Taken Unknown] dibucaine 1 % rectal ointment 1 applic SC TID PRN hemorrhoids #56 grams 09/28/22 [Rx Last Taken Unknown] flurbiprofen 100 mg tablet 100 mg PO TID 11/09/22 [History Last Taken Unknown] lactulose 10 gram/15 mL oral solution 15 ml PO DAILY #473 mL 11/09/22 [Rx Last Taken Unknown] acetaminophen 325 mg capsule 325 mg PO ONCE PRN 12/02/22 [History Last Taken Unknown] Allergy/AdvReac Type Severity Reaction Status Date / Time codeine Allergy Severe Upset Verified 12/02/22 11:05 Stomach Family History Father CVA (cerebral vascular accident) Father No problems noted. Grandfather CVA (cerebral vascular accident) Surgical History History of hysterectomy Social History current occupational status: other Smoking Status: Never smoker second hand exposure: No alcohol intake: never substance use type: does not use what type of physical activity do you participate in: none ROS ROS ED Constitutional Constitutional ED: Denies chills or fever(s) Eyes Eyes: Denies change in vision or diplopia Cardiovascular Cardiovascular: Denies chest pain or palpitations Respiratory/Chest Respiratory/Chest: Denies cough or dyspnea Gastrointestinal Gastrointestinal: Denies abdominal pain, nausea or vomiting Genitourinary Genitourinary ED: Denies dysuria or hematuria Musculoskeletal Musculoskeletal: Reports back pain; Denies arthralgias Integumentary Denies abscess Neurologic Neurologic: Reports headache(s) EXAM Physical Exam Const Vital Signs: 12/15/22 09:39 12/15/22 09:42 12/15/22 11:50 Temperature 98.8 F Temperature Source Temporal Pulse Rate 67 68 Respiratory Rate 16 14 Respiratory Effort Normal Blood Pressure 97/69 123/57 H Blood Pressure Mean 78 79 Pulse Ox 93 95 Oxygen Delivery Method Room Air 12/15/22 13:00 Temperature Temperature Source Pulse Rate 78 Respiratory Rate 15 Respiratory Effort Blood Pressure Blood Pressure Mean Pulse Ox 93 Oxygen Delivery Method Room Air Positive well nourished HEENT Reports normocephalic atraumatic Eyes PERRL and EOMs intact bilaterally Neck full ROM Chest Wall inspection of chest normal Resp normal respiratory effort and no retractions Auscultation: Negative for rales, rhonchi or wheezes Cardio regular rate and regular rhythm GI non-tender Neuro oriented x3, CN's II-XII intact bilaterally, moves all extremities, no focal motor deficits and no sensory deficits noted [place] Coma Scale: document GCS findings Spontaneous Obeys Commands Oriented 15 Sensorium / Orientation: alert Psych mental status grossly normal Skin Lesions: no lesions Rashes: no rashes MDM MDM MDM Narrative Medical decision making narrative: 72-year-old female presenting after fall. Very poor informant. Differential includes acute coronary syndrome, dysrhythmia, dehydration, electrolyte abnormalities, UTI, pneumonia, COVID, influenza,Hyperammonemia given the patient's history. Was included a C-spine injury, thoracic spine injury, intracranial hemorrhage, skull fracture. We will obtain a CBC to assess white blood cell count, hemoglobin. PT to assess liver function, renal function, electrolytes. High-sensitivity troponin and EKG to assess for ischemia and dysrhythmia. Chest x-ray to rule out pneumonia. Urinalysis to rule out UTI. COVID and influenza swabs were obtained. Level to assess for hyperammonemia. Brain and cervical spine will be obtained. Blood pressure 97/69 on arrival and she is given a liter of IV fluids. Otherwise her vital signs are stable however her O2 sats are 93% on arrival however these have been about 95% when she is talking. She is able to ambulate through the hallways without any difficulty and she does not feel weak. She was stable. CBC and BMP unremarkable. High-sensitivity troponin is 7. Urinalysis negative for infection. Chest x-ray on my interpretation shows no acute process. Thoracic spine shows old compression deformity which is unchanged on my interpretation at T11. CT brain and CT cervical spine show nothing acute. Ammonia level normal. Patient's COVID came back positive today. She was given a liter of fluids and her blood pressure is now improved to 123/57. Heart rate 78. Respirations 15. Afebrile.?95% on room air. At this point I feel she stable for discharge. I had nursing staff discussed with the [facility] regarding COVID precautions. She is discharged home in stable condition. Impression: 1. Fall 2. COVID-19 3. Closed head injury Lab Data Attestation: I reviewed the patient's lab results. Labs: Laboratory Results - last 24 hr 12/15/22 12/15/22 10:00 11:40 WBC 9.5 RBC 3.62 L Hgb 11.8 L Hct 36.3 L MCV 100.3 H MCH 32.6 H MCHC 32.5 RDW Std Deviation 51.2 H RDW Coeff of Krystal 13.8 Plt Count 229 MPV 9.0 Immature Gran % (Auto) 0.400 Neut % (Auto) 68.4 Lymph % (Auto) 15.3 L [place] % (Auto) 13.3 H Eos % (Auto) 2.2 Baso % (Auto) 0.4 Absolute Neuts (auto) 6.5 Absolute Lymphs (auto) 1.45 Nucleated RBC % 0 Sodium 134 L Potassium 4.0 Chloride 101 Carbon Dioxide 30.0 Anion Gap 3 L BUN 11 Creatinine 0.88 Estim Creat Clear Calc 42.12 Est GFR (MDRD) Af Amer 81 Est GFR (MDRD) Non-Af 67 BUN/Creatinine Ratio 12.5 Glucose 98 Calcium 8.3 L Total Bilirubin 0.20 AST 13 L ALT 14 Alkaline Phosphatase 95 Ammonia 20.0 Troponin I High Sens 7 Total Protein 6.3 L Albumin 2.8 L Globulin 3.5 Albumin/Globulin Ratio 0.8 L Urine Color Yellow Urine Clarity Clear Urine pH 7.0 Ur Specific [place] 1.010 Urine Protein Negative Urine Glucose (UA) Normal Urine Ketones Negative Urine Occult Blood Negative Urine Nitrite Negative Urine Bilirubin Negative Urine Urobilinogen Normal Ur Leukocyte Esterase Negative Urine RBC 0 SEEN Urine WBC 0 SEEN Ur Squamous Epith Cells 0 SEEN Urine Bacteria 0 SEEN Urine Mucus 0 SEEN Radiography Diagnostic Testing: Clinical Impression(s) from Imaging Studies Thoracic Spine X-Ray 12/15/22 09:54 IMPRESSION: 50% loss of height of the T11 vertebrae. This is unchanged. Electronically Signed: Josh Camacho MD at 11:12 EDT , Brain CT 12/15/22 10:20 IMPRESSION: Chronic involutional changes of the brain. Electronically Signed: Josh Camacho MD at 10:53 EDT , Cervical Spine CT 12/15/22 10:20 IMPRESSION: Multilevel degenerative changes, as described above. Electronically Signed: Josh Camacho MD at 10:51 EDT , Chest X-Ray 12/15/22 10:50 IMPRESSION: Mild increased linear markings at the left lung base suggestive of mild linear atelectasis. Electronically Signed: Josh Camacho MD at 11:10 EDT , Discharge Plan Triage Chief Complaint: Fall ED Provider: Oniel Valente Dx/Rx/DC Orders Instructions: Coronavirus Disease 2019 (COVID-19): Caring for Yourself or Others, ED Head Injury (Adult), ED Fall Prevention Prescriptions: No Action gabapentin 300 mg capsule 300 mg PO BID docusate sodium 100 mg capsule 100 mg PO BID guaifenesin 100 mg/5 mL liquid 200 mg PO Q4H PRN (Reason: Cough) levothyroxine 50 mcg capsule 50 mcg PO DAILY melatonin 3 mg capsule 3 mg PO HS omeprazole 20 mg capsule,delayed release(DR/EC) 20 mg PO DAILY risperidone 0.25 mg tablet 0.25 mg PO DAILY Rx Instructions: Take one tab every AM and HS flurbiprofen 100 mg tablet 100 mg PO TID lactulose 10 gram/15 mL solution 15 ml PO DAILY Qty: 473 6RF dibucaine 1 % ointment 1 applic SC TID PRN (Reason: hemorrhoids) Qty: 56 0RF acetaminophen 325 mg capsule 325 mg PO ONCE PRN primidone 50 mg Tablet 150 mg PO BID venlafaxine [Effexor XR] 75 mg Capsule,Extended Release 24hr 75 mg PO DAILY lidocaine [Lidocaine Pain Relief] 4 % Adhesive Patch,Medicated 1 patch TOPICAL DAILY atorvastatin 10 mg Tablet 10 mg PO QHS oxybutynin chloride 10 mg Tablet Extended Release 24hr 10 mg PO BID donepezil 10 mg Tablet 10 mg PO QHS sennosides-docusate sodium [Senna Plus] 8.6-50 mg Tablet 1 tab PO BID venlafaxine [Effexor XR] 150 mg Capsule,Extended Release 24hr 150 mg PO DAILY aspirin [Aspirin Low-Strength] 81 mg Tablet,Delayed Release (Dr/Ec) 81 mg PO DAILY propranolol 20 mg Tablet 20 mg PO BID memantine 10 mg tablet 10 mg PO BID Rx Instructions: Take one 10 mg in AM Take one 10 mg at HS trazodone 150 mg tablet 150 mg PO QHS Rx Instructions: Patient is given 125mg of Trazodone 1 100mg tab and 1/2 tab of 50mg buspirone 5 mg Tablet 5 mg PO TID lactulose 10 gram/15 mL Solution 10 g PO TUTHSA loratadine 10 mg Capsule 10 mg PO DAILY Primary Care Provider: Claudia Anderson Referrals: Claudia Anderson MD [Primary Care Provider] - Disposition Disposition: Home, Self Care Discharge Date/Time: 12/15/22 13:24
[2022-12-15 10:16] LABS: Absolute Lymphocyte Count 1.45 X10^3/uL (0.83-4.51); Absolute Neutrophil Count 6.5 X10^3/uL (2.0-7.7); Basophil# 0.04 X10^3/uL; Basophil% 0.4 % (0-1); Eosinophil# 0.21 X10^3/uL; Eosinophils% 2.2 % (0-5); Hematocrit 36.3 % (37-47); Hemoglobin 11.8 g/dL (12.0-15.0); Lymphocyte # 1.45 X10^3/ul (0.83-4.51); Lymphocyte % 15.3 % (19-41); Mean Corp Hgb Conc 32.5 g/dL (32-36); Mean Corpuscular Hgb 32.6 pg (27.0-32.0); Mean Corpuscular Volume 100.3 fL (81-99); Monocyte# 1.26 X10^3/uL; Monocyte% 13.3 % (0-10); NRBC Flagged by Analyzer 0 % (0-5); Neutrophil # 6.47 X10^3/uL (2.7-7.7); Neutrophil % 68.4 % (47-70); Platelet Count 229 K/mm3 (150-450); RBC Distribution Width CV 13.8 % (11.6-14.6); RBC Distribution Width SD 51.2 fl (35.1-43.9); Red Blood Count 3.62 M/mm3 (4.2-5.4); White Blood Count 9.5 K/mm3 (4.4-11.0)
--- NOTE | 2022-12-15 10:20 | CT_ITS ---
STUDY: CT CERVICAL SPINE WITHOUT CONTRAST REASON FOR EXAM: Female, 72 years old. Neck pain following a fall. RADIATION DOSAGE (If Supplied By Facility): CTDIvol = ( 13.61 ) mGy, DLP = ( 272.36 ) mGycm TECHNIQUE: High resolution transaxial imaging was performed without contrast material. Sagittal and coronal images were reconstructed. Individualized dose optimization techniques were used for this CT. COMPARISON: Comparison is made with prior study August 27, 2022. FINDINGS: Normal craniovertebral junction. Normal anterior atlantoaxial articulation. Normal odontoid process. Normal cervical lordosis. Normal vertebral bodies and posterior osseous elements. C2-3: Normal endplates. Normal disc height and morphology. Normal central canal and intervertebral neuroforamina. C3-4: Facet joint osteoarthritis and hypertrophy on the right side. No significant stenosis seen. C4-5: Moderate degree of disc space narrowing. Uncovertebral arthrosis. Facet joint osteoarthritis and hypertrophy worse on the left side. Moderate degree of bilateral neural foraminal stenosis. C5-6: Moderate degree of disc space narrowing with spondylosis. Uncovertebral arthrosis. Right neural foraminal stenosis. C6-7: Moderate degree of disc space narrowing. Uncovertebral arthrosis. Bilateral neural foraminal stenosis. C7-T1: Normal endplates. Normal disc height and morphology. Normal central canal and intervertebral neuroforamina. Normal visualized soft tissue structures. CT/Spine Cervical without Contras IMPRESSION: Multilevel degenerative changes, as described above. Electronically Signed: Josh Camacho MD at 10:51 EDT ,
--- NOTE | 2022-12-15 10:20 | CT_ITS ---
STUDY: CT BRAIN WITHOUT CONTRAST REASON FOR EXAM: Female, 72 years old. Close head injury RADIATION DOSAGE (If Supplied By Facility): CTDIvol = ( 44.99 ) mGy, DLP = ( 745.49 ) mGycm TECHNIQUE: Transaxial CT imaging of the brain was performed without administration of intravenous contrast material. Individualized dose optimization techniques were used for this CT. COMPARISON: Comparison is made with prior study dated August 27, 2022. FINDINGS: Normal soft tissue structures. Normal calvarium. There is mild cerebral atrophy with widening of the extra-axial spaces and ventricular dilatation. There are areas of decreased attenuation within the white matter tracts of the supratentorial brain, consistent with microvascular disease changes. Normal basal ganglia and thalami. Normal brainstem. Normal cerebellum. There is no intracranial hemorrhage. There are no findings of an acute ischemic infarction. Normal visualized paranasal sinuses. CT/Brain/Head without Contrast IMPRESSION: Chronic involutional changes of the brain. Electronically Signed: Josh Camacho MD at 10:53 EDT ,
[2022-12-15 10:29] LABS: ALB/GLOB Ratio 0.8 RATIO (0.9-2.4); AST(SGOT) 13 U/L (15-37); Alanine Aminotransfer ALT/SGPT 14 U/L (13-56); Albumin, Serum 2.8 g/dL (3.2-5.0); Alkaline Phosphatase 95 U/L (45-117); Anion Gap 3 (5-15); BUN 11 mg/dL (7-18); BUN/Creat Ratio 12.5 RATIO (10-20); Calcium,Total 8.3 mg/dL (8.5-10.1); Chloride 101 mmol/L (98-107); Creatinine, Serum 0.88 mg/dL (0.55-1.02); EST Glomerular Filtration Rate 67 mL/min (>60); Est Glom Filt Rate - Afr Amer 81 mL/min (>60); Estimated Creatinine Clearance 42.12 ml/min; Globulin 3.5 g/dL (2.2-4.2); Glucose 98 mg/dL (74-106); Protein, Total 6.3 g/dL (6.4-8.2); Sodium Level 134 mmol/L (136-145); Troponin-I HS 7 pg/mL (3.0-54.0)
--- NOTE | 2022-12-15 10:50 | RAD_ITS ---
STUDY: X-RAY CHEST REASON FOR EXAM: Female, 72 years old. Weakness TECHNIQUE: Single AP portable view of the chest. COMPARISON: Comparison is made with prior study dated April 15, 2022 FINDINGS: EKG electrodes are seen. Mild increased linear markings at the left lung base suggestive of mild linear atelectasis.. There is no demonstrated pleural abnormality. Normal size heart. Normal mediastinum and gloria. Normal visualized pulmonary arteries. Normal visualized aortic arch and descending thoracic aorta. Normal visualized thoracic spine. Normal visualized ribs, clavicles, and shoulders. There is no demonstrated abnormality of the visualized soft tissue structures of the upper abdomen. RAD/Chest 1 View (Portable) IMPRESSION: Mild increased linear markings at the left lung base suggestive of mild linear atelectasis. Electronically Signed: Josh Camacho MD at 11:10 EDT ,
[2022-12-15] MEDS: 0.9% Normal Saline (1000mL) 1,000 ML 999 ML IV (10:56)
[2022-12-15 11:43] LABS: Bacteria 0 SEEN /hpf (None Seen); Mucous, Urine 0 SEEN /hpf (<or=2+); Red Blood Cells-Urine 0 SEEN /hpf (0-5); Squamous Epithelial Cells - UA 0 SEEN /hpf (5-10); White Blood Cells 0 SEEN /hpf (0-5)
[2022-12-15 11:49] LABS: Color, Urine Yellow (Yellow); Glucose, Dipstick Normal (Normal); Ketone-Dipstick Negative (Negative); Leukocyte Esterase-Dipstick Negative /ul (Negative); Nitrite-Dipstick Negative (Negative); Occult Blood-Urine Negative /ul (Negative); Protein-Dipstick Negative (Negative); Urine Bilirubin Dipstick Negative (Negative); Urine Clarity Clear (Clear); Urine Urobilinogen Normal (Normal)
[2022-12-15 11:50] VITALS: BP 123/57; PULSE 68; RESP 14; O2SAT 95
--- NOTE | 2022-12-15 12:48 | ED.RN ---
JASKARAN AT [facility] CALLED AND ASKED IF PATIENT IS ABLE TO RETURN TO FACILITY WITH COVID. JASKARAN STATED YES DUE TO HER HAVING A SINGLE ROOM. JASKARAN CALLED RN BACK AND ASKED WHY WE HAVE COVID TESTED HER. POSTER WONDERING ALSO. JASKARAN INFORMED PATIENT C/O COUGH. JASKARAN STATES SHE DID NOT COMPLAIN OF A COUGH WHEN SHE WAS AT THEIR FACILITY. THIS RN CALLED JASKARAN BACK INFORMING HER SHE WILL BE RETURNING TO [facility]. WORKUP WAS NEGATIVE. ABOUT 40 MINUTES TO RETURN TO FACILITY
[2022-12-15 13:00] VITALS: PULSE 78; RESP 15; O2SAT 93
== END 2022-12-15 13:24 | disposition home or self-care (01) ==
PROVIDERS: Emergency Provider Student in an Organized Health Care Education/Training Program; PCP Internal Medicine; Visit Provider Student in an Organized Health Care Education/Training Program
DX: S09.90XA Unspecified injury of head, initial encounter (principal); F02.80 Dementia in other diseases classified elsewhere, unspecified severity, without behavioral disturbance, psychotic disturbance, mood disturbance, and anxiety; U07.1 COVID-19; E78.00 Pure hypercholesterolemia, unspecified; G89.29 Other chronic pain; M54.9 Dorsalgia, unspecified; W19.XXXA Unspecified fall, initial encounter
CPT/HCPCS: 70450; 71045; 72072; 72125; 80053; 81001; 82140; 84484; 85025; 87428; 93005; 96360; 96361; 99285; J7030; P9612; A4216

== ENCOUNTER → 2022-12-17 | Outpatient (REF) | payer MEDICARE, MEDICAID, SELFPAY ==
[2022-12-17 08:48] LABS: Absolute Lymphocyte Count 1.47 X10^3/uL (0.83-4.51); Absolute Neutrophil Count 3.3 X10^3/uL (2.0-7.7); Basophil# 0.03 X10^3/uL; Basophil% 0.5 % (0-1); Eosinophils% 6.7 % (0-5); Hematocrit 35.2 % (37-47); Hemoglobin 10.7 g/dL (12.0-15.0); Lymphocyte # 1.47 X10^3/ul (0.83-4.51); Lymphocyte % 24.6 % (19-41); Mean Corp Hgb Conc 30.4 g/dL (32-36); Mean Corpuscular Hgb 31.4 pg (27.0-32.0); Mean Corpuscular Volume 103.2 fL (81-99); Mean Platelet Vol. 9.6 fl (6.2-12.0); Monocyte# 0.72 X10^3/uL; Monocyte% 12.1 % (0-10); NRBC Flagged by Analyzer 0 % (0-5); Neutrophil # 3.33 X10^3/uL (2.7-7.7); Neutrophil % 55.8 % (47-70); Platelet Count 231 K/mm3 (150-450); RBC Distribution Width CV 14.1 % (11.6-14.6); RBC Distribution Width SD 53.8 fl (35.1-43.9); Red Blood Count 3.41 M/mm3 (4.2-5.4)
[2022-12-17 09:09] LABS: Anion Gap 2 (5-15); BUN 11 mg/dL (7-18); BUN/Creat Ratio 15.9 RATIO (10-20); Calcium,Total 8.2 mg/dL (8.5-10.1); Chloride 104 mmol/L (98-107); Creatinine, Serum 0.69 mg/dL (0.55-1.02); EST Glomerular Filtration Rate 89 mL/min (>60); Est Glom Filt Rate - Afr Amer 107 mL/min (>60); Glucose 80 mg/dL (74-106); Potassium 4.1 mmol/L (3.5-5.1); Sodium Level 136 mmol/L (136-145)
== END ==
LOC: OLS.SW 05:00
PROVIDERS: PCP Internal Medicine; Visit Provider Internal Medicine
DX: U07.1 COVID-19 (principal)
CPT/HCPCS: 36415; 80048; 85025; 86140

== ENCOUNTER → 2022-12-20 | Outpatient (REF) | payer MEDICARE, MEDICAID, SELFPAY ==
[2022-12-20 09:03] LABS: Absolute Lymphocyte Count 2.76 X10^3/uL (0.83-4.51); Absolute Neutrophil Count 1.6 X10^3/uL (2.0-7.7); Basophil# 0.04 X10^3/uL; Basophil% 0.8 % (0-1); Eosinophil# 0.35 X10^3/uL; Eosinophils% 6.6 % (0-5); Hematocrit 38.6 % (37-47); Hemoglobin 12.2 g/dL (12.0-15.0); Lymphocyte # 2.76 X10^3/ul (0.83-4.51); Lymphocyte % 52.1 % (19-41); Mean Corp Hgb Conc 31.6 g/dL (32-36); Mean Corpuscular Hgb 32.9 pg (27.0-32.0); Mean Platelet Vol. 9.2 fl (6.2-12.0); Monocyte% 9.4 % (0-10); NRBC Flagged by Analyzer 0 % (0-5); Neutrophil # 1.63 X10^3/uL (2.7-7.7); Neutrophil % 30.7 % (47-70); Platelet Count 316 K/mm3 (150-450); RBC Distribution Width CV 13.8 % (11.6-14.6); RBC Distribution Width SD 52.6 fl (35.1-43.9); Red Blood Count 3.71 M/mm3 (4.2-5.4); White Blood Count 5.3 K/mm3 (4.4-11.0)
[2022-12-20 09:22] LABS: Anion Gap 2 (5-15); BUN 7 mg/dL (7-18); BUN/Creat Ratio 9.3 RATIO (10-20); Calcium,Total 8.7 mg/dL (8.5-10.1); Chloride 106 mmol/L (98-107); Creatinine, Serum 0.76 mg/dL (0.55-1.02); EST Glomerular Filtration Rate 80 mL/min (>60); Est Glom Filt Rate - Afr Amer 97 mL/min (>60); Glucose 87 mg/dL (74-106); Potassium 3.9 mmol/L (3.5-5.1); Sodium Level 143 mmol/L (136-145)
== END ==
LOC: OLS.SW 04:00
PROVIDERS: PCP Internal Medicine; Referring Provider Internal Medicine; Visit Provider Internal Medicine
DX: U07.1 COVID-19 (principal)
CPT/HCPCS: 36415; 80048; 85025; 86140

== ENCOUNTER → 2023-01-11 | Outpatient (REF) | payer MEDICARE, MEDICAID, SELFPAY ==
[2023-01-11 08:34] LABS: Hematocrit 35.6 % (37-47); Hemoglobin 11.3 g/dL (12.0-15.0); Mean Corp Hgb Conc 31.7 g/dL (32-36); Mean Corpuscular Hgb 32.9 pg (27.0-32.0); Mean Corpuscular Volume 103.8 fL (81-99); Mean Platelet Vol. 9.8 fl (6.2-12.0); Platelet Count 205 K/mm3 (150-450); RBC Distribution Width CV 14.2 % (11.6-14.6); RBC Distribution Width SD 53.4 fl (35.1-43.9); Red Blood Count 3.43 M/mm3 (4.2-5.4); White Blood Count 5.7 K/mm3 (4.4-11.0)
[2023-01-11 08:44] LABS: Valproic Acid (Depakene) Level 48 ug/mL (50-100)
[2023-01-11 08:58] LABS: AST(SGOT) 12 U/L (15-37); Alanine Aminotransfer ALT/SGPT 13 U/L (13-56); Albumin, Serum 2.6 g/dL (3.2-5.0); Alkaline Phosphatase 83 U/L (45-117); Bilirubin, Direct < 0.05 mg/dL (0.00-0.30); Protein, Total 5.6 g/dL (6.4-8.2)
== END ==
LOC: OLS.SW 05:00
PROVIDERS: PCP Internal Medicine; Visit Provider Internal Medicine
DX: K21.9 Gastro-esophageal reflux disease without esophagitis (principal); E78.5 Hyperlipidemia, unspecified; E46 Unspecified protein-calorie malnutrition
CPT/HCPCS: 36415; 80076; 80164; 85027

== ENCOUNTER → 2023-01-25 | Outpatient (REF) | payer MEDICARE, MEDICAID, SELFPAY ==
[2023-01-25 11:07] LABS: ALB/GLOB Ratio 0.8 RATIO (0.9-2.4); AST(SGOT) 10 U/L (15-37); Alanine Aminotransfer ALT/SGPT 8 U/L (13-56); Albumin, Serum 2.8 g/dL (3.2-5.0); Alkaline Phosphatase 75 U/L (45-117); Anion Gap 3 (5-15); BUN 11 mg/dL (7-18); BUN/Creat Ratio 13.9 RATIO (10-20); Calcium,Total 8.6 mg/dL (8.5-10.1); Chloride 105 mmol/L (98-107); Creatinine, Serum 0.79 mg/dL (0.55-1.02); EST Glomerular Filtration Rate 76 mL/min (>60); Est Glom Filt Rate - Afr Amer 92 mL/min (>60); Globulin 3.4 g/dL (2.2-4.2); Glucose 90 mg/dL (74-106); Potassium 4.5 mmol/L (3.5-5.1); Protein, Total 6.2 g/dL (6.4-8.2); Sodium Level 140 mmol/L (136-145)
== END ==
LOC: OLS.SW 05:00
PROVIDERS: PCP Internal Medicine; Visit Provider Internal Medicine
DX: G30.9 Alzheimer's disease, unspecified (principal); E78.5 Hyperlipidemia, unspecified; E46 Unspecified protein-calorie malnutrition
CPT/HCPCS: 36415; 80053

== ENCOUNTER → 2023-02-28 | Outpatient (CLI) | payer MEDICARE, MEDICAID, SELFPAY ==
--- NOTE | 2023-02-28 16:09 | RAD_ITS ---
STUDY: X-RAY - RIGHT SHOULDER REASON FOR EXAM: Female, 72 years old. right shoulder pain TECHNIQUE: 4 view(s) of the shoulder. COMPARISON: None. FINDINGS: Narrowed glenohumeral articulation. Normal acromioclavicular joint. Normal acromion. Normal humeral head and visualized proximal humerus. The soft tissue structures are unremarkable. Normal visualized pulmonary apex. RAD/Shoulder min 2 Views IMPRESSION: Degenerative change. No acute fracture or other significant abnormality Electronically Signed: Rios Zuñiga MD at 17:02 EST ,
== END | disposition home or self-care (01) ==
PROVIDERS: PCP Internal Medicine; Referring Provider Psychiatry & Neurology Neurology; Visit Provider Psychiatry & Neurology Neurology
DX: M25.511 Pain in right shoulder (principal)
CPT/HCPCS: 73030

== ENCOUNTER → 2023-04-13 | Outpatient (REF) | payer MEDICARE, MEDICAID, SELFPAY ==
[2023-04-13 07:36] LABS: Hematocrit 36.3 % (37-47); Hemoglobin 11.1 g/dL (12.0-15.0); Mean Corp Hgb Conc 30.6 g/dL (32-36); Mean Corpuscular Hgb 32.9 pg (27.0-32.0); Mean Corpuscular Volume 107.7 fL (81-99); Mean Platelet Vol. 10.4 fl (6.2-12.0); Platelet Count 197 K/mm3 (150-450); RBC Distribution Width CV 13.4 % (11.6-14.6); RBC Distribution Width SD 53.7 fl (35.1-43.9); Red Blood Count 3.37 M/mm3 (4.2-5.4); White Blood Count 6.6 K/mm3 (4.4-11.0)
[2023-04-13 07:57] LABS: Valproic Acid (Depakene) Level 52 ug/mL (50-100)
[2023-04-13 07:58] LABS: AST(SGOT) 10 U/L (15-37); Alanine Aminotransfer ALT/SGPT 10 U/L (13-56); Albumin, Serum 2.6 g/dL (3.2-5.0); Alkaline Phosphatase 74 U/L (45-117); Bilirubin, Direct < 0.05 mg/dL (0.00-0.30); Protein, Total 5.6 g/dL (6.4-8.2)
== END ==
LOC: OLS.SW 05:00
PROVIDERS: PCP Internal Medicine; Visit Provider Internal Medicine
DX: E46 Unspecified protein-calorie malnutrition (principal); E78.5 Hyperlipidemia, unspecified; Z79.899 Other long term (current) drug therapy
CPT/HCPCS: 36415; 80076; 80164; 85027

== ENCOUNTER → 2023-05-30 | Outpatient (REF) | payer MEDICARE, MEDICAID, SELFPAY ==
[2023-05-30 09:22] LABS: Anion Gap 2 (5-15); BUN 9 mg/dL (7-18); BUN/Creat Ratio 10.9 RATIO (10-20); Calcium,Total 8.5 mg/dL (8.5-10.1); Chloride 108 mmol/L (98-107); Creatinine, Serum 0.83 mg/dL (0.55-1.02); EST Glomerular Filtration Rate 72 mL/min (>60); Est Glom Filt Rate - Afr Amer 87 mL/min (>60); Glucose 75 mg/dL (74-106); Potassium 4.9 mmol/L (3.5-5.1); Sodium Level 144 mmol/L (136-145); Thyroid Stim Hormone (TSH) 2.71 uIU/mL (0.358-3.74)
== END ==
LOC: OLS.SW 05:00
PROVIDERS: PCP Internal Medicine; Visit Provider Internal Medicine
DX: E78.5 Hyperlipidemia, unspecified (principal); E03.9 Hypothyroidism, unspecified
CPT/HCPCS: 36415; 80048; 84443

== ENCOUNTER 2023-06-08 23:04 | Emergency (ER) | payer MEDICARE, MEDICAID, SELFPAY ==
[2023-06-08 23:04] VITALS: BP 124/55; PULSE 62; RESP 16; TEMP 35.9; O2SAT 99; BMI 22.6
[2023-06-08 23:15] VITALS: BP 140/58; PULSE 57
--- NOTE | 2023-06-08 23:18 | RAD_ITS ---
EXAM: XR LEFT HIP WITH PELVIS WHEN PERFORMED, 2 OR 3 VIEWS CLINICAL INDICATION: Injury/Pain TECHNIQUE: Two or three views of the left hip with pelvis when performed. COMPARISON: No relevant prior studies available. FINDINGS: BONES/JOINTS: Unremarkable. No displaced fracture. No destructive or sclerotic lesions. Note that overlapping bowel shadows may however obscure fine detail. Sacroiliac joint is unremarkable. No widening of the pubic symphysis. The articular structures are unremarkable. SOFT TISSUES: Unremarkable. No soft tissue swelling or gas. RAD/HIP, UNI W/ Pelvis 2-3 Views IMPRESSION: No evidence of displaced pelvic or hip fracture. Electronically Signed: Paul Long MD at 23:55 EDT ,
--- NOTE | 2023-06-08 23:19 | ED.VIS.FALL ---
HPI HPI - Fall History of Present Illness Chief Complaint: Fall Detail of Chief Complaint: Patient fell returning to the restroom with her walker because she had epis Informant: patient and SNF Limited: dementia Occured/Mechanism Occurred: Today Mechanism/Context: Yes same level fall and Yes trip Narrative: Running to the restroom because she has diarrhea. She has had 2 loose watery stools Usually ambulates: Walker Pain/Injury Pain Location: lower extremity (Left hip region) Quality of Pain: Dull and Aching Current Severity: Mild Maximum Severity: Moderate (Danny Smitha 4 test) Worsened by: Danny Smitha 4 test Relieved by: Remaining still Associated Symptoms Associated Symptoms: Negative for Parasthesias, Weakness, Loss of function or Inability to ambulate Narrative Narrative: Patient is an elderly woman who resides at correction. She was running to the restroom. She was using her walker. She tripped over her walker. She fell. She sustained a abrasion lateral right brow and complains of left hip pain. There was no loss of conscious. She is on no antithrombotic or anticoagulant. Tetanus Immunization: Unknown Prior similar symptoms: Yes Recent Illness/Hospitalization: No PFSH PFSH Medical History Alzheimer's dementia Anxiety Arthritis Asthma Back pain Bipolar disorder Bladder disease Chronic constipation Dementia Essential tremor Gastric reflux High cholesterol Hx of hemorrhoids Insomnia Lives in correction Non-smoker Thyroid disease Home Medications aspirin 81 mg tablet,delayed release 81 mg PO DAILY HEART HEALTH 01/18/22 [History Last Taken 01/18/22] atorvastatin 10 mg tablet 10 mg PO QHS CHOLESTEROL 01/18/22 [History Last Taken 01/17/22] donepezil 10 mg tablet 10 mg PO QHS ALZHEIMERS 01/18/22 [History Last Taken 01/18/22] oxybutynin chloride 10 mg tablet,extended release 24 hr 10 mg PO BID BLADDER DYSFUNCTION 01/18/22 [History Last Taken 01/18/22] primidone 50 mg tablet 150 mg PO BID TREMORS 01/18/22 [History Last Taken 01/18/22] propranolol 20 mg tablet 20 mg PO BID HYPERTENSION 01/18/22 [History Last Taken 01/18/22] sennosides 8.6 mg-docusate sodium 50 mg tablet (Senna Plus) 1 tab PO BID PRN CONSTIPATION 01/18/22 [History Last Taken 01/18/22] venlafaxine 150 mg capsule,extended release 24 hr (Effexor XR) 150 mg PO DAILY ANXIETY 01/18/22 [History Last Taken 01/18/22] venlafaxine 75 mg capsule,extended release 24 hr (Effexor XR) 75 mg PO DAILY ANXIETY 01/18/22 [History Last Taken 01/18/22] docusate sodium 100 mg capsule 100 mg PO DAILY PRN constipation 07/01/22 [History Last Taken Unknown] gabapentin 300 mg capsule 300 mg PO BID 07/01/22 [History Last Taken Unknown] guaifenesin 100 mg/5 mL oral liquid 200 mg PO Q4H PRN Cough 07/01/22 [History Last Taken Unknown] levothyroxine 50 mcg capsule 50 mcg PO DAILY 07/01/22 [History Last Taken Unknown] memantine 10 mg tablet 10 mg PO BID ALZHEIMERS 07/01/22 [History Last Taken Unknown] omeprazole 20 mg capsule,delayed release 20 mg PO DAILY 07/01/22 [History Last Taken Unknown] trazodone 150 mg tablet 150 mg PO QHS INSOMNIA 07/01/22 [History Last Taken Unknown] buspirone 5 mg tablet 7.5 mg PO TID 09/09/22 [History Last Taken Unknown] lactulose 10 gram/15 mL oral solution 10 g PO TUTHSA 09/09/22 [History Last Taken Unknown] loratadine 10 mg capsule 10 mg PO DAILY 09/09/22 [History Last Taken Unknown] dibucaine 1 % rectal ointment 1 applic PA TID PRN hemorrhoids #56 grams 09/28/22 [Rx Last Taken Unknown] flurbiprofen 100 mg tablet 100 mg PO TID 11/09/22 [History Last Taken Unknown] lactulose 10 gram/15 mL oral solution 15 ml PO DAILY #473 mL 11/09/22 [Rx Last Taken Unknown] acetaminophen 325 mg capsule 325 mg PO Q4H PRN fever or pain 02/28/23 [History Last Taken Unknown] divalproex 125 mg capsule,delayed release sprinkle 125 mg PO ONCE 02/28/23 [History Last Taken Unknown] divalproex 250 mg tablet,delayed release 250 mg PO HS 02/28/23 [History Last Taken Unknown] escitalopram oxalate 5 mg tablet (Lexapro) 15 mg PO DAILY 02/28/23 [History Last Taken Unknown] linaclotide 72 mcg capsule (Linzess) 72 mcg PO QODAY 02/28/23 [History Last Taken Unknown] melatonin 10 mg capsule 10 mg PO HS 02/28/23 [History Last Taken Unknown] Allergy/AdvReac Type Severity Reaction Status Date / Time codeine Allergy Severe Upset Verified 06/08/23 23:05 Stomach Family History Father CVA (cerebral vascular accident) Father No problems noted. Grandfather CVA (cerebral vascular accident) Surgical History History of hysterectomy Social History current occupational status: other Smoking Status: Never smoker second hand exposure: No alcohol intake: never substance use type: does not use what type of physical activity do you participate in: none ROS ROS ED Constitutional Constitutional ED: Denies chills or fever(s) Eyes Eyes: Denies blurry vision or change in vision ENT ENT ED: Denies rhinorrhea or sore throat Cardiovascular Cardiovascular: Denies chest pain Respiratory/Chest Respiratory/Chest: Denies cough or dyspnea Gastrointestinal Gastrointestinal: Reports diarrhea; Denies abdominal pain, nausea or vomiting Genitourinary Genitourinary ED: Denies dysuria, hematuria or urinary frequency Musculoskeletal Musculoskeletal: Reports other Details: Left hip pain. ; Denies arthralgias, back pain, myalgias or neck pain Neurologic Neurologic: Denies headache(s) or paresthesias Hematologic/Lymphatic Hematologic/Lymphatic: Denies easy bleeding or easy bruising EXAM Physical Exam Const Vital Signs: 06/08/23 23:04 06/08/23 23:04 Temperature 96.6 F L Temperature Source Temporal Pulse Rate 62 Respiratory Rate 16 Respiratory Effort Normal Non-Labored Respiratory Depth Normal Respiratory Pattern Normal Blood Pressure 124/55 H Blood Pressure Mean 78 Pulse Ox 99 99 Oxygen Delivery Method Room Air Room Air Positive well nourished and well developed General Appearance ED: well developed and NAD HEENT Reports normocephalic and TM's normal bilaterally HEENT Narrative: There is a small hematoma or abrasion lateral right brow. trauma, contusion and hematoma Eyes PERRL and EOMs intact bilaterally Eyes Narrative: There is no evidence of entrapment. There is no step-off with palpation of orbital rim. There is no hyperesthesia infraorbital nerve. There is no subconjunctival hemorrhage. General Eye ED: Negative for pale conjunctiva or scleral icterus Neck full ROM, no lymphadenopathy and supple Chest Wall inspection of chest normal and palpation of chest normal Resp normal respiratory effort, no retractions and clear to auscultation bilaterally Cardio regular rate, regular rhythm, S1 normal heart sound, S2 normal heart sound and no murmurs GI non-tender, non-distended and no masses Back/Spine no CVA tenderness Thoracic Spine / Upper Back: Negative for ROM limited Lumbar Spine / Lower Back: Negative for lumbar spinal tenderness Neuro oriented x3, CN's II-XII intact bilaterally, moves all extremities, no focal motor deficits and no sensory deficits noted Neuro Narrative: There is no clonus or Babinski sign. [place] Coma Scale: document GCS findings Spontaneous Obeys Commands Oriented 15 Sensorium / Orientation: alert Psych mental status grossly normal and thought process normal Skin Skin Narrative: Contusion abrasion right brow Rashes: no rashes Trauma: abrasion MDM MDM MDM Narrative Medical decision making narrative: With no loss of conscious. Not amnestic on no antithrombotic or anticoagulant other than a baby aspirin per the [place] CT head rule imaging of the head is not indicated. Since patient has no neck pain full active range of motion and no tenderness midline posteriorly per Nexus criteria imaging is not indicated patient is able to lift her left leg up off the bed. She has pain with the Danny Smitha 4 test. This may represent an avulsion fracture of the greater troches or possibly a grade 1 femoral neck fracture. For this reason x-ray was ordered. Her vital signs are unremarkable. Tetanus was updated. Records from the nursing facility were reviewed. History & Record Review Additional record(s) reviewed:: Prior outpatient record (Records from outside source indicates patient has frequent falls. Neurology record was reviewed for back pain without sciatica. Also many mental exam revealed a score of 19/30.) and Prior ED visit (ER visit for fracture a year ago was for abnormal gait and reason for falls.) Radiography Chest X-Ray - ED: Read by ED Physician (Three-view x-ray of the left hip reveals degenerative change. Is evidence of fracture, subluxation or dislocation.) Discharge Plan Triage Chief Complaint: Fall ED Provider: Bart Mares Dx/Rx/DC Orders Clinical Impression: Contusion of face, Alzheimer's dementia, Contusion of left hip, Injury due to fall, DNR (do not resuscitate) Instructions: ED Facial Contusion, ED Hip Contusion Prescriptions: No Action gabapentin 300 mg capsule 300 mg PO BID docusate sodium 100 mg capsule 100 mg PO DAILY PRN (Reason: constipation) guaifenesin 100 mg/5 mL liquid 200 mg PO Q4H PRN (Reason: Cough) levothyroxine 50 mcg capsule 50 mcg PO DAILY omeprazole 20 mg capsule,delayed release(DR/EC) 20 mg PO DAILY flurbiprofen 100 mg tablet 100 mg PO TID lactulose 10 gram/15 mL solution 15 ml PO DAILY Qty: 473 6RF dibucaine 1 % ointment 1 applic PA TID PRN (Reason: hemorrhoids) Qty: 56 0RF escitalopram oxalate [Lexapro] 5 mg tablet 15 mg PO DAILY Linzess 72 mcg capsule 72 mcg PO QODAY melatonin 10 mg capsule 10 mg PO HS divalproex 125 mg capsule, delayed rel sprinkle 125 mg PO ONCE divalproex 250 mg tablet,delayed release (DR/EC) 250 mg PO HS acetaminophen 325 mg capsule 325 mg PO Q4H PRN (Reason: fever or pain) primidone 50 mg Tablet 150 mg PO BID venlafaxine [Effexor XR] 75 mg Capsule,Extended Release 24hr 75 mg PO DAILY atorvastatin 10 mg Tablet 10 mg PO QHS oxybutynin chloride 10 mg Tablet Extended Release 24hr 10 mg PO BID donepezil 10 mg Tablet 10 mg PO QHS sennosides-docusate sodium [Senna Plus] 8.6-50 mg Tablet 1 tab PO BID PRN (Reason: CONSTIPATION) venlafaxine [Effexor XR] 150 mg Capsule,Extended Release 24hr 150 mg PO DAILY aspirin [Aspirin Low-Strength] 81 mg Tablet,Delayed Release (Dr/Ec) 81 mg PO DAILY propranolol 20 mg Tablet 20 mg PO BID memantine 10 mg tablet 10 mg PO BID Rx Instructions: Take one 10 mg in AM Take one 10 mg at HS trazodone 150 mg tablet 150 mg PO QHS buspirone 5 mg Tablet 7.5 mg PO TID lactulose 10 gram/15 mL Solution 10 g PO TUTHSA loratadine 10 mg Capsule 10 mg PO DAILY Primary Care Provider: Claudia Anderson Referrals: Claudia Anderson MD [Primary Care Provider] - As Needed Activity Restrictions/Additional Instructions: Ice to facial contusion and left hip contusion 6-10 times a day Tylenol for pain Disposition Disposition: Home, Self Care
[2023-06-08 23:30] VITALS: BP 130/67; PULSE 59
[2023-06-08] MEDS: Diphth,Pertuss(Acell),Tet Vac 0.5 ML Vial IM (23:37)
[2023-06-09] VITALS (7 sets, daily range): BP systolic 131–139; BP diastolic 55–65; PULSE 55–63; RESP 16; TEMP 36.4; O2SAT 98
--- NOTE | 2023-06-09 02:33 | ED.RN ---
Attempted to call report to [facility] x2 with no answer. Squad updated.
== END 2023-06-09 02:26 | disposition home or self-care (01) ==
PROVIDERS: Emergency Provider Emergency Medicine; PCP Internal Medicine; Visit Provider Emergency Medicine
DX: S00.83XA Contusion of other part of head, initial encounter (principal); G30.9 Alzheimer's disease, unspecified; F02.80 Dementia in other diseases classified elsewhere, unspecified severity, without behavioral disturbance, psychotic disturbance, mood disturbance, and anxiety; M54.9 Dorsalgia, unspecified; S70.02XA Contusion of left hip, initial encounter; R19.7 Diarrhea, unspecified; Z66 Do not resuscitate; S00.211A Abrasion of right eyelid and periocular area, initial encounter; W01.0XXA Fall on same level from slipping, tripping and stumbling without subsequent striking against object, initial encounter; E78.00 Pure hypercholesterolemia, unspecified; J45.909 Unspecified asthma, uncomplicated; K21.9 Gastro-esophageal reflux disease without esophagitis; Z91.81 History of falling; Y92.129 Unspecified place in nursing home as the place of occurrence of the external cause; Z23 Encounter for immunization
CPT/HCPCS: 73502; 90471; 90715; 99282

== ENCOUNTER → 2023-06-13 | Outpatient (REF) | payer MEDICARE, MEDICAID, SELFPAY ==
[2023-06-13 09:15] LABS: Hemoglobin 11.1 g/dL (12.0-15.0); Mean Corp Hgb Conc 31.7 g/dL (32-36); Mean Corpuscular Hgb 34.3 pg (27.0-32.0); Mean Platelet Vol. 10.4 fl (6.2-12.0); Platelet Count 219 K/mm3 (150-450); RBC Distribution Width CV 13.6 % (11.6-14.6); RBC Distribution Width SD 54.8 fl (35.1-43.9); Red Blood Count 3.24 M/mm3 (4.2-5.4); White Blood Count 5.9 K/mm3 (4.4-11.0)
[2023-06-13 09:42] LABS: Anion Gap 4 (5-15); BUN 10 mg/dL (7-18); BUN/Creat Ratio 12.9 RATIO (10-20); Calcium,Total 8.5 mg/dL (8.5-10.1); Chloride 104 mmol/L (98-107); Creatinine, Serum 0.77 mg/dL (0.55-1.02); EST Glomerular Filtration Rate 78 mL/min (>60); Est Glom Filt Rate - Afr Amer 94 mL/min (>60); Glucose 72 mg/dL (74-106); Potassium 4.4 mmol/L (3.5-5.1); Sodium Level 139 mmol/L (136-145)
== END ==
LOC: OLS.SW 05:00
PROVIDERS: PCP Internal Medicine; Visit Provider Internal Medicine
DX: R29.6 Repeated falls (principal)
CPT/HCPCS: 36415; 80048; 85027

== ENCOUNTER → 2023-06-14 | Outpatient (CLI) | payer MEDICARE, MEDICAID, SELFPAY | END | disposition home or self-care (01) | LOC: PSN 13:17 | PROVIDERS: PCP Internal Medicine; Referring Provider Internal Medicine; Visit Provider Internal Medicine | DX: R00.0 Tachycardia, unspecified (principal) | CPT/HCPCS: 93225; 93226 ==

== ENCOUNTER → 2023-07-13 04:50 | Outpatient (REF) | payer MEDICARE, MEDICAID, SELFPAY ==
[2023-07-13 07:00] LABS: Hemoglobin 12.2 g/dL (12.0-15.0); Mean Corp Hgb Conc 32.1 g/dL (32-36); Mean Corpuscular Hgb 34.3 pg (27.0-32.0); Mean Corpuscular Volume 106.7 fL (81-99); Mean Platelet Vol. 10.6 fl (6.2-12.0); Platelet Count 260 K/mm3 (150-450); RBC Distribution Width CV 12.6 % (11.6-14.6); RBC Distribution Width SD 49.8 fl (35.1-43.9); Red Blood Count 3.56 M/mm3 (4.2-5.4); White Blood Count 12.9 K/mm3 (4.4-11.0)
[2023-07-13 07:14] LABS: Valproic Acid (Depakene) Level 30 ug/mL (50-100)
[2023-07-13 07:19] LABS: AST(SGOT) 11 U/L (15-37); Alanine Aminotransfer ALT/SGPT 16 U/L (13-56); Alkaline Phosphatase 95 U/L (45-117); Bilirubin, Direct 0.07 mg/dL (0.00-0.30); Globulin 3.3 g/dL (2.2-4.2); Protein, Total 6.3 g/dL (6.4-8.2)
== END ==
LOC: OLS.SW 04:50
PROVIDERS: PCP Internal Medicine; Visit Provider Internal Medicine
DX: E78.5 Hyperlipidemia, unspecified (principal); F31.9 Bipolar disorder, unspecified
CPT/HCPCS: 36415; 80076; 80164; 85027

== ENCOUNTER → 2023-07-18 05:00 | Outpatient (REF) | payer MEDICARE, MEDICAID, SELFPAY ==
[2023-07-18 08:50] LABS: Absolute Neutrophil Count 3.9 X10^3/uL (2.0-7.7); Basophil# 0.04 X10^3/uL; Basophil% 0.4 % (0-1); Eosinophil# 0.21 X10^3/uL; Eosinophils% 2.3 % (0-5); Hematocrit 36.3 % (37-47); Hemoglobin 11.6 g/dL (12.0-15.0); Lymphocyte % 45.5 % (19-41); Mean Corpuscular Hgb 33.9 pg (27.0-32.0); Mean Corpuscular Volume 106.1 fL (81-99); Mean Platelet Vol. 10.4 fl (6.2-12.0); Monocyte# 0.74 X10^3/uL; Monocyte% 8.2 % (0-10); NRBC Flagged by Analyzer 0 % (0-5); Neutrophil # 3.87 X10^3/uL (2.7-7.7); Neutrophil % 42.9 % (47-70); Platelet Count 243 K/mm3 (150-450); RBC Distribution Width CV 12.8 % (11.6-14.6); RBC Distribution Width SD 50.5 fl (35.1-43.9); Red Blood Count 3.42 M/mm3 (4.2-5.4)
== END ==
LOC: OLS.SW 05:00
PROVIDERS: PCP Internal Medicine; Visit Provider Internal Medicine
DX: E78.00 Pure hypercholesterolemia, unspecified (principal); E46 Unspecified protein-calorie malnutrition
CPT/HCPCS: 36415; 85025

== ENCOUNTER → 2023-08-17 04:00 | Outpatient (REF) | payer MEDICARE, SELFPAY ==
[2023-08-17 08:36] LABS: AST(SGOT) 17 U/L (15-37); Alanine Aminotransfer ALT/SGPT 16 U/L (13-56); Albumin, Serum 2.8 g/dL (3.2-5.0); Alkaline Phosphatase 73 U/L (45-117); Bilirubin, Direct 0.05 mg/dL (0.00-0.30); Cholesterol 167 mg/dL (200); Globulin 2.9 g/dL (2.2-4.2); High Density Lipoprotein 57 mg/dL; Protein, Total 5.7 g/dL (6.4-8.2); Triglycerides 152 mg/dL; Very Low Density Lipoprotein 30 mg/dL (5-40)
== END ==
LOC: OLS.SW 04:00
PROVIDERS: PCP Internal Medicine; Referring Provider Internal Medicine; Visit Provider Internal Medicine
DX: E78.00 Pure hypercholesterolemia, unspecified (principal); E46 Unspecified protein-calorie malnutrition
CPT/HCPCS: 36415; 80061; 80076

== ENCOUNTER → 2023-10-12 | Outpatient (REF) | payer MEDICARE, SELFPAY ==
[2023-10-12 08:37] LABS: Hematocrit 37.6 % (37-47); Hemoglobin 11.8 g/dL (12.0-15.0); Mean Corp Hgb Conc 31.4 g/dL (32-36); Mean Corpuscular Hgb 32.6 pg (27.0-32.0); Mean Corpuscular Volume 103.9 fL (81-99); Mean Platelet Vol. 10.3 fl (6.2-12.0); Platelet Count 243 K/mm3 (150-450); RBC Distribution Width CV 12.7 % (11.6-14.6); RBC Distribution Width SD 48.7 fl (35.1-43.9); Red Blood Count 3.62 M/mm3 (4.2-5.4); White Blood Count 5.2 K/mm3 (4.4-11.0)
[2023-10-12 08:55] LABS: Valproic Acid (Depakene) Level 14 ug/mL (50-100)
[2023-10-12 09:01] LABS: Cholesterol 159 mg/dL (200); High Density Lipoprotein 57 mg/dL; Triglycerides 181 mg/dL; Very Low Density Lipoprotein 36 mg/dL (5-40)
== END ==
LOC: OLS.SW 05:00
PROVIDERS: PCP Internal Medicine; Referring Provider Internal Medicine; Visit Provider Internal Medicine
DX: Z79.899 Other long term (current) drug therapy (principal)
CPT/HCPCS: 36415; 80061; 80164; 85027

== ENCOUNTER → 2023-11-03 | Outpatient (CLI) | payer MEDICARE, SELFPAY | END | disposition home or self-care (01) | PROVIDERS: PCP Internal Medicine; Referring Provider Psychiatry & Neurology Neurology; Visit Provider Psychiatry & Neurology Neurology | DX: E72.20 Disorder of urea cycle metabolism, unspecified (principal) | CPT/HCPCS: 36415; 82140 ==

== ENCOUNTER → 2023-11-08 | Outpatient (REF) | payer MEDICARE, MEDICAID, SELFPAY ==
[2023-11-08 09:58] LABS: Ammonia < 10.0 umol/L (11-32)
== END ==
LOC: OLS.SW 05:00
PROVIDERS: PCP Internal Medicine; Visit Provider Internal Medicine
DX: Z79.899 Other long term (current) drug therapy (principal)
CPT/HCPCS: 36415; 82140; 82746

== ENCOUNTER → 2023-12-12 | Outpatient (REF) | payer MEDICARE, MEDICAID, SELFPAY ==
[2023-12-12 08:48] LABS: Hematocrit 36.4 % (37-47); Hemoglobin 11.2 g/dL (12.0-15.0); Mean Corp Hgb Conc 30.8 g/dL (32-36); Mean Corpuscular Hgb 32.7 pg (27.0-32.0); Mean Corpuscular Volume 106.4 fL (81-99); Mean Platelet Vol. 10.3 fl (6.2-12.0); Platelet Count 222 K/mm3 (150-450); RBC Distribution Width CV 13.3 % (11.6-14.6); RBC Distribution Width SD 51.8 fl (35.1-43.9); Red Blood Count 3.42 M/mm3 (4.2-5.4); White Blood Count 6.5 K/mm3 (4.4-11.0)
[2023-12-12 09:48] LABS: Valproic Acid (Depakene) Level 8 ug/mL (50-100)
[2023-12-12 09:53] LABS: AST(SGOT) 12 U/L (15-37); Alanine Aminotransfer ALT/SGPT 13 U/L (13-56); Albumin, Serum 2.8 g/dL (3.2-5.0); Alkaline Phosphatase 84 U/L (45-117); Anion Gap 7 (5-15); BUN 8 mg/dL (7-18); BUN/Creat Ratio 9.9 RATIO (10-20); Calcium,Total 8.7 mg/dL (8.5-10.1); Chloride 106 mmol/L (98-107); EST Glomerular Filtration Rate 74 mL/min (>60); Est Glom Filt Rate - Afr Amer 90 mL/min (>60); Globulin 2.7 g/dL (2.2-4.2); Glucose 80 mg/dL (74-106); Potassium 4.4 mmol/L (3.5-5.1); Protein, Total 5.5 g/dL (6.4-8.2); Sodium Level 141 mmol/L (136-145)
== END ==
LOC: OLS.SW 05:00
PROVIDERS: PCP Internal Medicine; Visit Provider Internal Medicine
DX: F31.9 Bipolar disorder, unspecified (principal); F03.90 Unspecified dementia, unspecified severity, without behavioral disturbance, psychotic disturbance, mood disturbance, and anxiety; G30.9 Alzheimer's disease, unspecified; E78.5 Hyperlipidemia, unspecified; E46 Unspecified protein-calorie malnutrition; F41.1 Generalized anxiety disorder; F33.1 Major depressive disorder, recurrent, moderate; Z79.899 Other long term (current) drug therapy
CPT/HCPCS: 36415; 80053; 80164; 84443; 85027

== ENCOUNTER → 2024-01-04 | Outpatient (CLI) | payer MEDICARE, MEDICAID, SELFPAY ==
--- NOTE | 2024-01-04 11:34 | MRI_ITS ---
STUDY: MRI RIGHT SHOULDER REASON FOR EXAM: Female, 73 years old. Pain. TECHNIQUE: Standardized fat and water weighted pulse sequences were obtained in all 3 orthogonal planes. COMPARISON: Right shoulder radiographs dated 02/28/2023. FINDINGS: There is a partial articular supraspinatus tendon avulsion (PASTA) lesion, measuring 1.7 cm in length (coronal T2 series 6 images 13-14). Normal infraspinatus tendon. Normal subscapularis tendon. Normal teres minor tendon. Normal supraspinatus muscle. Normal infraspinatus muscle. Normal subscapularis muscle. Normal teres minor muscle. Normal glenohumeral articulation. 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 Normal biceps labral complex. Normal intracapsular long biceps tendon. Normal labrum. Normal capsulo-ligamentous complex. Normal rotator interval. There is hypertrophic acromioclavicular arthrosis, with inferior osteophyte formation, with mild effacement of the supraspinatus myotendinous junction (coronal T2 series 6 images 13-14). There is a Type II morphology (curved), with a neutral orientation. There is no subacromial-subdeltoid bursal fluid. Normal visualized coracohumeral and coracoacromial ligaments. Normal quadrilateral space. Normal axillary space. Normal deltoid muscle. Normal trapezius muscle. MRI/Upper Ext Joint Only(Routine) IMPRESSION: Partial articular supraspinatus tendon avulsion (PASTA) lesion, measuring 1.7 cm in length. 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 Hypertrophic acromioclavicular arthrosis, with inferior osteophyte formation, with mild effacement of the supraspinatus myotendinous junction. Electronically Signed: Mk López MD at 15:07 EDT ,
== END | disposition home or self-care (01) ==
PROVIDERS: PCP Internal Medicine; Referring Provider Orthopaedic Surgery Sports Medicine; Visit Provider Orthopaedic Surgery Sports Medicine
DX: M25.511 Pain in right shoulder (principal)
CPT/HCPCS: 73221

== ENCOUNTER → 2024-01-12 | Outpatient (REF) | payer MEDICARE, MEDICAID, SELFPAY ==
[2024-01-12 09:15] LABS: Hematocrit 37.3 % (37-47); Hemoglobin 11.5 g/dL (12.0-15.0); Mean Corp Hgb Conc 30.8 g/dL (32-36); Mean Corpuscular Hgb 32.5 pg (27.0-32.0); Mean Corpuscular Volume 105.4 fL (81-99); Mean Platelet Vol. 10.4 fl (6.2-12.0); Platelet Count 239 K/mm3 (150-450); RBC Distribution Width SD 50.4 fl (35.1-43.9); Red Blood Count 3.54 M/mm3 (4.2-5.4); White Blood Count 7.1 K/mm3 (4.4-11.0)
[2024-01-12 10:19] LABS: Valproic Acid (Depakene) Level 15 ug/mL (50-100)
[2024-01-12 10:21] LABS: AST(SGOT) 12 U/L (15-37); Alanine Aminotransfer ALT/SGPT 10 U/L (13-56); Albumin, Serum 2.9 g/dL (3.2-5.0); Alkaline Phosphatase 72 U/L (45-117); Bilirubin, Direct 0.07 mg/dL (0.00-0.30); Globulin 2.5 g/dL (2.2-4.2); Protein, Total 5.4 g/dL (6.4-8.2)
== END ==
LOC: OLS.SW 05:00
PROVIDERS: PCP Internal Medicine; Visit Provider Internal Medicine
DX: F31.9 Bipolar disorder, unspecified (principal); F41.1 Generalized anxiety disorder; F03.90 Unspecified dementia, unspecified severity, without behavioral disturbance, psychotic disturbance, mood disturbance, and anxiety; F33.1 Major depressive disorder, recurrent, moderate; N31.1 Reflex neuropathic bladder, not elsewhere classified; E46 Unspecified protein-calorie malnutrition; Z79.899 Other long term (current) drug therapy
CPT/HCPCS: 36415; 80076; 80164; 85027

== ENCOUNTER → 2024-01-17 | Outpatient (REF) | payer MEDICARE, MEDICAID, SELFPAY | LOC: OLS.SW 05:00 | PROVIDERS: PCP Internal Medicine; Visit Provider Internal Medicine | DX: E03.9 Hypothyroidism, unspecified (principal) | CPT/HCPCS: 36415; 84443 ==

== ENCOUNTER → 2024-02-17 05:00 | Outpatient (REF) | payer MEDICARE, MEDICAID, SELFPAY | LOC: OLS.SW 05:00 | PROVIDERS: PCP Internal Medicine; Visit Provider Internal Medicine | DX: E03.9 Hypothyroidism, unspecified (principal) | CPT/HCPCS: 36415; 84443 ==

== ENCOUNTER → 2024-04-13 05:00 | Outpatient (REF) | payer MEDICARE, MEDICAID, SELFPAY ==
[2024-04-13 07:49] LABS: Hematocrit 39.3 % (37-47); Hemoglobin 12.4 g/dL (12.0-15.0); Mean Corp Hgb Conc 31.6 g/dL (32-36); Mean Corpuscular Hgb 33.4 pg (27.0-32.0); Mean Corpuscular Volume 105.9 fL (81-99); Mean Platelet Vol. 11.2 fl (6.2-12.0); POSITIVE COUNT YES; RBC Distribution Width CV 12.9 % (11.6-14.6); Red Blood Count 3.71 M/mm3 (4.2-5.4); White Blood Count 5.5 K/mm3 (4.4-11.0)
[2024-04-13 08:05] LABS: Valproic Acid (Depakene) Level 45 ug/mL (50-100)
[2024-04-13 08:20] LABS: Scan Indicated on CBC? Y/N YES- FLAGS NOTED
[2024-04-13 08:21] LABS: AST(SGOT) 14 U/L (15-37); Alanine Aminotransfer ALT/SGPT 11 U/L (13-56); Albumin, Serum 2.7 g/dL (3.2-5.0); Alkaline Phosphatase 93 U/L (45-117); Bilirubin, Direct 0.08 mg/dL (0.00-0.30); Globulin 2.8 g/dL (2.2-4.2); Protein, Total 5.5 g/dL (6.4-8.2)
== END ==
LOC: OLS.SW 05:00
PROVIDERS: PCP Internal Medicine; Visit Provider Internal Medicine
DX: E78.5 Hyperlipidemia, unspecified (principal); Z79.899 Other long term (current) drug therapy; E46 Unspecified protein-calorie malnutrition; F03.90 Unspecified dementia, unspecified severity, without behavioral disturbance, psychotic disturbance, mood disturbance, and anxiety
CPT/HCPCS: 36415; 80076; 80164; 85027

== ENCOUNTER → 2024-06-25 05:00 | Outpatient (REF) | payer MEDICARE, MEDICAID, SELFPAY ==
[2024-06-25 10:24] LABS: Vitamin D,25 Hydroxy 10.3 ng/mL (30-100)
== END ==
LOC: OLS.SW 05:00
PROVIDERS: PCP Internal Medicine; Visit Provider Internal Medicine
DX: E55.9 Vitamin D deficiency, unspecified (principal)
CPT/HCPCS: 36415; 82306

== ENCOUNTER → 2024-07-12 | Outpatient (REF) | payer MEDICARE, MEDICAID, SELFPAY ==
[2024-07-12 08:14] LABS: Hemoglobin 10.9 g/dL (12.0-15.0); Mean Corp Hgb Conc 31.1 g/dL (32-36); Mean Corpuscular Hgb 32.8 pg (27.0-32.0); Mean Corpuscular Volume 105.4 fL (81-99); Mean Platelet Vol. 10.4 fl (6.2-12.0); Platelet Count 223 K/mm3 (150-450); RBC Distribution Width CV 13.4 % (11.6-14.6); RBC Distribution Width SD 52.5 fl (35.1-43.9); Red Blood Count 3.32 M/mm3 (4.2-5.4); White Blood Count 6.3 K/mm3 (4.4-11.0)
[2024-07-12 08:38] LABS: AST(SGOT) 17 U/L (<=31); Alanine Aminotransfer ALT/SGPT < 5 U/L (<=34); Albumin, Serum 3.2 g/dL (3.4-4.8); Alkaline Phosphatase 112 U/L (35-104); Bilirubin, Direct < 0.08 mg/dL (0.00-0.30); Globulin 2.5 g/dL (2.2-4.2); Protein, Total 5.7 g/dL (5.9-8.4); Total Bilirubin < 0.15 mg/dL (0.00-1.30)
== END ==
LOC: OLS.SW 06:20
PROVIDERS: PCP Internal Medicine; Visit Provider Family Medicine
DX: F31.9 Bipolar disorder, unspecified (principal); E78.5 Hyperlipidemia, unspecified
CPT/HCPCS: 36415; 80076; 85027

== ENCOUNTER → 2024-08-06 | Outpatient (CLI) | payer MEDICARE, MEDICAID, SELFPAY ==
--- NOTE | 2024-08-06 12:30 | RAD_ITS ---
PROCEDURE: LUMBAR SPINE 2 OR 3 VIEWS 08/06/2024 REASON FOR EXAM: SPONDYLOSIS WITHOUT MYELOPATHY OR RADICULOPATHY, LUMBAR REGION TECHNIQUE: 2 view(s) of the lumbar spine COMPARISON: 05/27/2023 FINDINGS: 5 [id number] lumbar vertebral body types identified. No acute fracture or malalignment. There is again note of a remote moderate T11 compression deformity with anterior wedging, unchanged. L1-2 moderate disc space narrowing L2-3 [id number] disc space narrowing with degenerative endplate change L3-4 [id number] disc space narrowing with degenerative endplate change L4-5 [id number] disc space narrowing and degenerative endplate change Lower lumbar facet degenerative changes RAD/Lumbar Spine 2 or 3 Views IMPRESSION: No significant interval change in appearance of multilevel spondylosis/discogen ic change as above. Reading Location: [id number]
== END | disposition home or self-care (01) ==
PROVIDERS: PCP Internal Medicine; Referring Provider Anesthesiology Pain Medicine; Visit Provider Anesthesiology Pain Medicine
DX: M47.816 Spondylosis without myelopathy or radiculopathy, lumbar region (principal)
CPT/HCPCS: 72100

== ENCOUNTER → 2024-08-15 05:00 | Outpatient (REF) | payer MEDICARE, MEDICAID, SELFPAY | LOC: OLS.SW 05:00 | PROVIDERS: PCP Internal Medicine; Visit Provider Family Medicine | DX: E03.9 Hypothyroidism, unspecified (principal) | CPT/HCPCS: 36415; 84443 ==

== ENCOUNTER → 2024-08-22 | Outpatient (CLI) | payer MEDICARE, MEDICAID, SELFPAY ==
--- NOTE | 2024-08-22 08:15 | MRI_ITS ---
PROCEDURE: BRAIN WITHOUT CONTRAST 08/22/2024 REASON FOR EXAM: WORSENING GAIT IMBALANCE; MULTIPLE FALLS TECHNIQUE: Noncontrast brain MRI. Multiplanar and multisequence images were obtained. COMPARISON: None. FINDINGS: Mild global parenchymal atrophy. Periventricular white matter T2/FLAIR hyperintense foci likely representing mild chronic microvascular ischemia. No evidence of acute hemorrhage or infarction. No extra-axial blood or fluid collections. The paranasal sinuses are clear. Absent [place] ocular lenses. Partial left mastoid effusion. MRI/Brain without Contrast IMPRESSION: No acute intracranial abnormalities. Reading Location: [place] [id number]
== END | disposition home or self-care (01) ==
PROVIDERS: PCP Internal Medicine; Referring Provider Psychiatry & Neurology Neurology; Visit Provider Psychiatry & Neurology Neurology
DX: R26.81 Unsteadiness on feet (principal); F03.90 Unspecified dementia, unspecified severity, without behavioral disturbance, psychotic disturbance, mood disturbance, and anxiety; R29.6 Repeated falls; R47.1 Dysarthria and anarthria
CPT/HCPCS: 70551

== ENCOUNTER → 2024-08-27 05:00 | Outpatient (REF) | payer MEDICARE, MEDICAID, SELFPAY ==
--- OUTSIDE RECORDS SUMMARY | 2024-08-27 04:40 | XMS RPT_ITS | CCD ---
Author Organization [facility] Care Team Providers Care Ocean Export Agent Name Role Phone Prieto PANDA, Jeramie Owen Unavailable Dr. Claudia Anderson Referring Provider Unavailable Dr. Medardo Mayo Attending Provider Dr. Addi Tatum Primary Care Provider Dr. Medardo Mayo Referring Provider Dr. Medardo Mayo Attending Provider Dr. Medardo Mayo Referring Provider Dr. Addi Tatum Primary Care Provider Dr. Claudia Anderson Primary Care Provider Dr. Claudia Felder Referring Provider Unavailable Dr. Willy Mckeon Attending Provider Dr. Willy Mckeon Referring Provider [phone] Dr. Willy Mckeon Other Provider [phone] Dr. Claudia Anderson Primary Care Provider Dr. Claudia Felder Referring Provider Unavailable Dr. Willy Mckeon Attending Provider Dr. Willy Mckeon Referring Provider Dr. Willy Mckeon Other Provider [phone] Dr. Addi Tatum Referring Provider Dr. Medardo Mayo Attending Provider [phone] Medardo Mayo Referring Provider [phone] Piotr Espinal Attending Provider [phone] Dr. Shelton Conway Attending Provider [phone] Kamran PANDA, Claudia Pulido Primary Care Provider SABRINA WELCH Attending Unavailable GUDLA, CLAUDIA D Primary Care Unavailable SABRINA WELCH Attending Unavailable SABRINA WELCH Referring Unavailable KAMRAN, CLAUDIA Pulido Primary Care Unavailable Dr. Addi Tatum Referring Provider [phone] Medardo Mayo Attending Provider [phone] Kamran, Dr. Taylor Primary Care Provider UnavailDr. Medardo Goodwin Referring Provider [phone] Kamran, Dr. Taylor Referring Provider Unavailable Dr. Piotr Espinal Attending Provider [phone] Dr. Shelton Conway Attending Provider [phone] Claudia Anderson Primary Care Provider Unavailjeffy Anderson, Dr. Taylor Referring Provider Unavailable Dr. Medardo Mayo Attending Provider [phone] Dr. Piotr Espinal Attending Provider [phone] Dr. Shelton Conway Attending Provider [phone] Claudia Anderson Primary Care Provider Unavaila ble Kamran, Dr. Taylor Referring Provider Unavailable Dr. Medardo Mayo Attending Provider [phone] Dr. Medardo Mayo Referring Provider [phone] MD True Rader Attending Provider [phone] Kamran PANDA, Dr. Taylor Primary Care Provider Cindyva brittaney Anderson MD, Dr. Taylor Attending Provider UnavailDr. Medardo Goodwin MD Attending Provider [phone] Maria Esther PANDA, Dr. Batres Referring Provider Ezio PANDA, Dr. Biswas Attending Provider Unavail able Shant PANDA, Dr. Gardner Attending Provider Shant PANDA, Dr. Gardner Referring Provider Dr. Claudia Anderson MD Referring Provider Unavaila ble Gudla, Claudia Referring Unavailable MollTrue gaytan Attending Unavailable Gudla, Claudia Primary Care Unavailable Baddour, Medardo Attending Unavailable Baddour, Medardo Referring Unavailable Gudla, Claudia Primary Care Unavailable Baddour, Medardo Attending Unavailable Baddour, Medardo Referring Unavailable Gudla, Claudia Primary Care Unavailable Gudla Claudia DYSON Attending Unavailable Gudla, Claudia Primary Care Unavailable Gudla, Claudia Primary Care Unavailable Baddour, Medardo Attending Unavailable Baddour, Medardo Referring Unavailable Gudla, Claudia Referring Unavailable Gudla, Claudia Primary Care Unavailable Baddour, Medardo Attending Unavailable Baddour, Medardo Attending Unavailable Baddour, Medardo Referring Unavailable Gudla, Claudia Primary Care Unavailable Gudla, Claudia Primary Care Unavailable Baddour, Medardo Referring Unavailable Baddour, Medardo Attending Unavailable Gudla, Claudia Primary Care Unavailable Gudla Claudia DYSON Attending Unavailable Gudla Laney DYSONyothi Attending Unavailable Gudla, Claudia Primary Care Unavailable Gudla, Claudia Primary Care Unavailable Gudla Laney DYSONyothi Referring Unavailable Gudla Claudia DYSON Attending Unavailable Gudla Laney DYSONyothi Attending Unavailable Gudla, Claudia Primary Care Unavailable Gudla, Claudia Primary Care Unavailable True June Attending Unavailable Gudla Claudia DYSON Attending Unavailable Gudla, Claudia Primary Care Unavailable Gudla Claudia DYSON Attending Unavailable Gudla, Claudia Primary Care Unavailable Gudla, Claudia Primary Care Unavailable Gudla Laney DYSONyothi Attending Unavailable Gudla, Claudia Primary Care Unavailable True June Attending Unavailable Jaddla, Claudia Primary Care Unavailable Kendra Bran Referring Unavailable Kendra Bran Attending Unavailable True Rader Referring Unavailable True Rader Attending Unavailable Gudla, Claudia Primary Care Unavailable Allergies Allergy Classification Reported Allergen(s) Allergy Type Date of Onset Reaction(s) Facility (1 source) Codeine Drug Allergy 9 nausea and vomiting [facility] Work Phone: (20 sources) Codeine; Translations: [CODEINE] Drug Allergy 5 Unknown [facility] (1 source) Codeine Drug Allergy 5 [facility] Repository Medications Current Medications Medication Drug Class(es) Dates Sig (Normalized) Sig (Original) acetaminophen 325 mg oral capsule (20 sources) Start: 05-07-2024 take 2 capsules by mouth every four hours as needed for pain Acetaminophen 325 mg capsule Active 650 mg PO Q4H as needed for fever or pain May 07, 2024 2:46pm Start: 05-07-2024 Acetaminophen 650 mg suppository Active 650 mg RC EVERY 4-6 HOURS as needed May 07, 2024 1:00am Start: 02-28-2023 End: 05-07-2024 take 1 capsule by mouth every four hours as needed for pain Acetaminophen 325 mg capsule Discontinued 325 mg PO Q4H as needed for fever or pain February 28, 2023 4:09pm May 07, 2024 3:06pm Start: 12-02-2022 End: 02-28-2023 take 1 capsule by mouth once as needed Acetaminophen 325 mg capsule Discontinued 325 mg PO ONCE as needed December 02, 2022 12:00am February 28, 2023 4:34pm take 2 tablets by mo uth every six hours as needed acetaminophen (TYLENOL) 325 mg tablet Indications: PCO (posterior capsular opacification), left Take 650 mg by mouth every 6 hours as needed. 0 Active Comment on above: Take 650 mg by mouth every 6 hours as needed. aluminum hydroxide 40 mg/ml / magnesium hydroxide 40 mg/ml oral suspension (2 sources) Start: 5 take 1 mL by mouth every four hours as needed Aluminum-Magnesium Hydroxide 200-200 mg/5 mL suspension Active 30 mL PO Q4H as needed May 07, 2024 1:00am ascorbic acid 500 mg oral tablet (2 sources) Vitamin C Start: 5 take 1 tablet by mouth once daily Ascorbic Acid (Vitamin C) 500 mg tablet Active 500 mg PO daily May 07, 2024 1:00am aspirin 81 mg delayed release oral tablet (20 sources) Platelet Aggregation Inhibitor, Nonsteroidal Anti-inflammatory Drug Start: 2 take 1 tablet by mouth once daily Aspirin (Aspirin Low-Strength) 81 mg Tablet,Delayed Release (Dr/Ec) Active 81 mg PO DAILY January 18, 2022 12:00am aspirin (ASPIR-8 1 ORAL) Take by mouth. 0 Active Comment on above: Take by mouth. atorvastatin 10 mg oral tablet (20 sources) HMG-CoA Reductase Inhibitor Start: 2 take 1 tablet by mouth at bedtime Atorvastatin 10 mg Tablet Active 10 mg PO AT BEDTIME January 18, 2022 12:00am Comment on above: Take 10 mg by mouth once daily. bisacodyl 10 mg rectal suppository (4 sources) Stimulant Laxative Start: Bisacodyl 10 mg suppository Active 10 mg RC daily as needed May 07, 2024 1:00am Start: 05-07-2024 take 1 tablet by kane th once daily as needed Bisacodyl (Dulcolax (Bisacodyl)) 5 mg tablet,delayed release (DR/EC) Active 5 mg PO daily as needed May 07, 2024 1:00am busPIRone hydrochloride 15 mg oral tablet (20 sources) Start: 01-25-2024 take 1 tablet by mouth three times daily Buspirone 15 mg tablet Active 15 mg PO THREE TIMES A DAY January 25, 2024 1:00am Start: 09-09-2022 End: 01-25-2024 take 7.5 mg by mouth three times daily Buspirone 5 mg Tablet Discontinued 7.5 mg PO THREE TIMES A DAY September 09, 2022 12:00am January 25, 2024 11:47am Start: 09-09-2022 take 7.5 mg by mouth three times daily Buspirone Active 7.5 MG PO THREE TIMES A DAY September 09, 2022 12:00am Start: 09-09-2022 take 5 mg by mouth t hree times daily Buspirone Active 5 MG PO THREE TIMES A DAY September 08, 2022 11:00pm Start: 01-18-2022 End: 07-01-2022 take 1 tablet by mouth twice daily Buspirone 30 mg Tablet Discontinued 30 mg PO TWICE A DAY January 18, 2022 12:00am July 01, 2022 10:49am Start: 11-19-2019 busPIRone HCl 30 mg tablet Increase to 1 q AM and One q pm 0 11/19/2019 Active Start: 10-20-2018 BUSPIRONE HCL 30 MG TABS 1/2 tablet in AM and 1 tablet in PM BUSPIRONE HCL [id number] Kenia Jones LPN Comment on above: Increase to 1 q AM a nd One q pm carboxymethylcellulose sodiu m 5 mg/ml / glycerin 9 mg/ml ophthalmic solution (3 sources) Non-Standardized Chemical Allergen Start: 05-07-19 take 0.5-0.9 drop(s) into the eye(s) at bedtime Carboxymethylcell ulose-Glycern (Refresh Relieva) 0.5-0.9 % drops Active 1 NMA OPHTHALMIC AT BEDTIME May 07, 2024 1:00am Carboxymethylcel lulose-Glycern (REFRESH RELIEVA) 0.5-0.9 % drop 1 Drop as needed. 0 Active Comment on above: 1 Drop as needed. cetirizine hydrochloride 10 mg oral tablet (19 sources) Histamine-1 Receptor Antagonist Start: 022 cholecalciferol 0.125 mg oral capsule (2 sources) Vitamin D Start: 025 take 1 capsule by mouth once daily Cholecalciferol (Vitamin D3) 125 mcg (5,000 unit) capsule Active 125 ug PO daily August 06, 2024 12:00am dibucaine 0.01 mg/mg rectal ointment (17 sources) Standardized Chemical Allergen Start: 023 Dibucaine 1 % ointment Active 1 NMA RC THREE TIMES A DAY as needed for hemorrhoids 56 September 28, 2022 12:00am docusate sodium 100 mg oral capsule (20 sources) Start: 025 take 1 capsule by mouth twice daily Docusate Sodium 100 mg capsule Active 100 mg PO TWICE A DAY May 07, 2024 2:52pm Start: 07-01-2022 End: 05-07-2024 take 1 capsule by mouth once daily as needed for constipation Docusate Sodium 100 mg capsule Discontinued 100 mg PO DAILY as needed for constipation July 01, 2022 12:00am May 07, 2024 3:06pm Start: 07-01-2022 take 100 mg by mouth twice jimy ly Docusate Sodium Active 100 MG PO TWICE A DAY June 30, 2022 11:00pm take 1 tablet by mouth twice jimy ly Docusate Sodium 100 mg tab Take 100 mg by mouth two times a day. 0 Active Comment on above: Take 100 mg by mouth two times a day. docusate sodium 50 mg / sennosides, group home 8.6 mg oral tablet (20 sources) Start: 05-07-2024 Sennosides-Docusate Sodium (Senna Plus) 8.6-50 mg tablet Active 1 {tbl} PO daily May 07, 2024 3:04pm Start: 01-18-2022 End: 05-07-2024 Sennosides-Docusate Sodium ( Senna Plus) 8.6-50 mg Tablet Discontinued 1 {tbl} PO TWICE A DAY as needed for CONSTIPATION January 18, 2022 12:00am May 07, 2024 3:06pm Start: 01-18-2022 donepezil hydrochloride 10 mg oral tablet (20 sources) Start: 11-19-2019 End: 04-08-2029 take 1 tablet by mouth at bedtime Donepezil 10 mg Tablet Active 10 mg PO AT BEDTIME January 18, 2022 12:00am Start: 10-20-2018 ARICEPT 10 MG TABS 1 tablet daily DONEPEZIL HCL [id number] Kenia Jones LPN Comment on above: Take 10 mg by mouth. folic acid 1 mg oral tablet (19 sources) Start: 05-07-2024 take 1 tablet by mouth once daily Folic Acid 1 mg tablet Active 1 mg PO daily May 07, 2024 1:00am Start: 11-09-2022 End: 12-02-2022 take 1 tablet by mouth once daily Folic Acid 1 mg tablet Discontinued 1 mg PO DAILY November 09, 2022 12:00am December 02, 2022 11:10am gabapentin 300 mg oral capsule (20 sources) Anti-epileptic Agent Start: 05-07-2024 take 1 capsule by mouth three times daily Gabapentin 300 mg capsule Active 300 mg PO THREE TIMES A DAY May 07, 2024 2:55pm Start: 07-01-2022 End: 05-07-2024 take 1 capsule by mouth twice daily Gabapentin 300 mg capsule Discontinued 300 mg PO TWICE A DAY July 01, 2022 12:00am May 07, 2024 3:06pm take 1 capsule by [facility] three times daily gabapentin (NEURONTIN) 300 mg capsule Take 300 mg by mouth three times a day. 0 Active Comment on above: Take 300 mg by mouth three times a day. glucagon (rdna) 1 mg injection (3 sources) Antihypoglycemic Agent Start: 05-07-2024 Glucagon 1 mg recon soln Active 1 mg SC Q20M as needed May 07, 2024 1:00am until target blood sugar attained glucagon (GVOKE HYPOPEN) 0.5 mg/0.1 mL auto-injector Inject 0.5 mg subcutaneously as needed. 0 Active Comment on above: Inject 0.5 mg subcut aneously as needed. glucose 0.4 mg/mg oral gel (3 sources) Start: 05-07-2024 Dextrose (Glucose Gel) 40 % gel Active 10 g PO Q15M as needed May 07, 2024 1:00am until symptoms of low blood sugar are controlled dextrose (GLUCOS E GEL ORAL) Take by mouth. 0 Active Comment on above: Take by mouth. guaiFENesin 20 mg/ml oral solution (20 sources) Start: 3 take 200 mg by mouth every four hours as needed for cough Guaifenesin 100 mg/5 mL liquid Active 200 mg PO Q4H as needed for Cough July 01, 2022 12:00am ketoconazole 20 mg/ml medicated shampoo (2 sources) Azole Antifungal Start: 5 Ketoconazole 2 % shampoo Active 1 NMA TOPICAL TWICE A WEEK May 07, 2024 1:00am levothyroxine sodium 0.05 mg oral capsule (20 sources) l-Thyroxine Start: 3 take 1 capsule by mouth once daily Levothyroxine 50 mcg capsule Active 50 ug PO DAILY July 01, 2022 12:00am levothyroxine so dium (LEVOTHYROXINE ORAL) Take 15 mg by mouth. 0 Active Comment on above: Take 15 mg by mouth. lidocaine 0.04 mg/mg medicated patch (20 sources) Antiarrhythmic, Amide Local Anesthetic Start: 05-07-2024 Lidocaine 4 % adhesive patch,medicated Active 1 NMA TOPICAL daily as needed May 07, 2024 1:00am Start: 01-18-2022 End: 02-28-2023 Lidocaine (Lidocaine Pain Re lief) 4 % Adhesive Patch,Medicated Discontinued 1 NMA TOPICAL DAILY January 18, 2022 12:00am February 28, 2023 4:32pm Start: 01-18-2022 loperamide hydrochloride 2 mg oral tablet (2 sources) Opioid Agonist Start: 05-07-2024 take 1 tablet by mouth every twenty-four hours Loperamide (Imodium A-D) 2 mg tablet Active 0 PO .COMPLEX May 07, 2024 1:00am 1 - 2 tablets orally; Not to exceed 4 tablets in 24 hrs loratadine 10 mg oral capsule (19 sources) Start: 09-09-2022 take 1 capsule by mouth once daily Loratadine 10 mg Capsule Active 10 mg PO DAILY September 09, 2022 12:00am Start: 01-22-2020 loratadine (CL ARITIN) 10 mg tablet Take 10 mg by mouth. 0 01/22/2020 Active Comment on above: Take 10 mg by mouth. Magnesium Hydroxide (3 sources) Start: 05-07-2024 take 1 mL by mouth once daily as needed Magnesium Hydroxide (Milk Of Magnesia) 400 mg/5 mL suspension Active 30 mL PO daily as needed May 07, 2024 1:00am magnesium hydrox jie (MILK OF MAGNESIA ORAL) Take 30 mL by mouth. 0 Active Comment on above: Take 30 mL by mouth. melatonin 10 mg oral capsule (20 sources) Start: 02-28-2023 take 1 capsule by mouth at bedtime Melatonin 10 mg capsule Active 10 mg PO BEDTIME February 28, 2023 1:00am Start: 07-01-2022 End: 02-28-2023 take 1 capsule by mouth at bedtime Melatonin 3 mg capsule Discontinued 3 mg PO BEDTIME July 01, 2022 12:00am February 28, 2023 4:18pm Start: 07-01-2022 melatonin 10 mg tab Take 10 mg by mouth. 0 Active Comment on above: Take 10 mg by mouth. memantine hydrochloride 10 mg oral tablet (20 sources) N-vqrnip-M-aspartat e Receptor Antagonist Start: End: 3 take 1 tablet by mouth twice daily in the morning Memantine 10 mg tablet Active 10 mg PO TWICE A DAY July 01, 2022 10:41am Take one 10 mg in AM Take one 10 mg at HS Start: 01-18-2022 End: 07-01-2022 take 20 mg by mouth once daily Memantine Discontinued 20 MG PO DAILY January 18, 2022 12:00am July 01, 2022 10:53am Start: 01-22-2020 End: 07-01-2022 take 2 tablets by mouth once daily Memantine 10 mg Tablet Discontinued 20 mg PO DAILY January 18, 2022 12:00am July 01, 2022 10:53am Start: 10-20-2018 NAMENDA 10 MG TABS 1 tablet daily MEMANTINE HCL [id number] Kenia Jones LPN Comment on above: 2 q AM mineral oil 1000 mg/ml enema (2 sources) Start: 05-07-2024 Mineral Oil (Fleet Mineral Oil) enema Active 118 mL RC daily as needed May 07, 2024 1:00am discard any unused portion Multivitamin preparation (16 sources) Start: 01-18-2022 take 1 tablet by mouth once daily Multivitamin Active 1 TABLET PO DAILY January 17, 2022 11:00pm Start: 01-18-2022 take 1 tablet by kane th once daily Multivitamin Active 1 TABLET PO DAILY January 18, 2022 12:00am omeprazole 20 mg delayed release oral capsule (20 sources) Proton Pump Inhibitor Start: 07-01-2022 take 1 capsule by mouth once daily Omeprazole 20 mg capsule,delayed release(DR/EC) Active 20 mg PO DAILY July 01, 2022 12:00am 24 hr oxybutynin chloride 10 mg extended release oral tablet (20 sources) Cholinergic Muscarinic Antagonist Start: 01-18-2022 take 1 tablet by mouth twice daily Oxybutynin Chloride 10 mg Tablet Extended Release 24hr Active 10 mg PO TWICE A DAY January 18, 2022 12:00am Start: 11-19-2019 oxybutynin (DI TROPAN) 5 mg tablet Take 5 mg by mouth. 0 11/19/2019 Active Start: 10-20-2018 OXYBUTYNIN CHL ORIDE 5 MG TABS 1 tablet 3 times daily OXYBUTYNIN CHLORIDE [id number] Kenia Jones LPN Comment on above: Take 5 mg by mouth. phenylephrine hydrochloride 25 mg/ml ophthalmic solution (1 source) alpha-1 Adrenergic Agonist Start: 3 End: 3 PHENYLephrine 2.5 % 1 Drop (AK-DILATE, JANUSZ-SYNEPHRINE) primidone 50 mg oral tablet (20 sources) Anti-epileptic Agent Start: 2 End: 5 take 1 tablet by mouth twice daily Primidone 50 mg tablet Active 200 mg PO TWICE A DAY August 06, 2024 2:16pm Start: 01-18-2022 take 150 mg by mouth twice jimy ly Primidone Active 150 MG PO TWICE A DAY January 18, 2022 12:00am Start: 11-19-2019 primidone (MYS OLINE) 50 mg tablet One q am and one q pm 0 11/19/2019 Active Comment on above: One q am and one q p m proparacaine hydrochloride 5 mg/ml ophthalmic solution (1 source) Local Anesthetic Start: 3 End: 3 proparacaine 0.5 % 1 Drop (ALCAINE) propranolol hydrochloride 20 mg oral tablet (20 sources) beta-Adrenergic Prasanna Start: 2 take 1 tablet by mouth twice daily Propranolol 20 mg Tablet Active 20 mg PO TWICE A DAY January 18, 2022 12:00am take 1 tablet by kane th three times daily propranolol (INDERAL) 20 mg tablet Take 20 mg by mouth three times a day. 0 Active Comment on above: Take 20 mg by mouth three times a day. traZODone hydrochloride 100 mg oral tablet (20 sources) Serotonin Reuptake Inhibitor Start: 5 take 2 tablets by mouth at bedtime as needed Trazodone 100 mg tablet Active 200 mg PO AT BEDTIME as needed August 06, 2024 12:00am Start: 07-01-2022 End: 08-06-2024 take 1 tablet by mouth at bedtime Trazodone 150 mg tablet Discontinued 150 mg PO AT BEDTIME July 01, 2022 1:09pm August 06, 2024 2:18pm Start: 07-01-2022 Trazodone Acti ve 150 MG PO AT BEDTIME July 01, 2022 12:09pm Patient is given 125mg of Trazodone 1 100mg tab and 1/2 tab of 50mg Start: 07-01-2022 Trazodone Acti ve 125 MG PO AT BEDTIME July 01, 2022 1:09pm Patient is given 125mg of Trazodone 1 100mg tab and 1/2 tab of 50mg Start: 01-18-2022 End: 07-01-2022 Trazodone 150 mg tablet Disc ontinued 225 mg PO AT BEDTIME July 01, 2022 10:46am July 01, 2022 1:11pm Start: 01-18-2022 End: 07-01-2022 take 225 mg by mouth at bedtime Trazodone Discontinued 225 MG PO AT BEDTIME July 01, 2022 9:46am July 01, 2022 12:11pm Start: 01-18-2022 End: 07-01-2022 Start: 11-19-2019 traZODone (AUDELIA YREL) 100 mg tablet One q 9 pm 0 11/19/2019 Active Start: 10-20-2018 TRAZODONE HCL 100 MG TABS 1 tablet daily TRAZODONE HCL [id number] Kenia Jones LPN Comment on above: One q 9 pm tropicamide 10 mg/ml ophthalmic solution (1 source) Anticholinergic Start: 12-30-19 End: 12-31-19 tropicamide 1 % 1 Drop (MYDRIACYL) 24 hr venlafaxine 75 mg extended release oral capsule (20 sources) Serotonin and Norepinephrine Reuptake Inhibitor Start: 01-19-20 take 1 capsule by mouth once daily Venlafaxine (Effexor Xr) 150 mg Capsule,Extended Release 24hr Active 150 mg PO DAILY January 18, 2022 12:00am Start: 01-18-2022 take 1 capsule by mo [facility] once daily Venlafaxine (Effexor Xr) 75 mg Capsule,Extended Release 24hr Active 75 mg PO DAILY January 18, 2022 12:00am Comment on above: Take 150 mg by mouth once daily. (3 sources) Start: 01-18-2022 Completed/Discontinued Medications Medication Drug Class(es) Dates Sig (Normalized) Sig (Original) ALPRAZolam 0.5 mg oral tablet (1 source) Benzodiazepine take 0.25 mg by mouth twice daily ALPRAZolam (XANAX) 0.5 mg tablet Indications: PCO (posterior capsular opacification), left Take 0.25 mg by mouth twice daily. 0 Active Comment on above: Take 0.25 mg by mout h twice daily. amoxicillin 500 mg / clavulanate 125 mg oral tablet (17 sources) Penicillin-class Antibacterial Start: 09-28-2022 End: 12-02-2022 Amoxicillin-Pot Clavulanate (Augmentin) 500-125 mg tablet Discontinued 1 {tbl} PO TWICE A DAY September 28, 2022 12:00am December 02, 2022 11:06am clonazePAM 0.5 mg oral tablet (20 sources) Benzodiazepine Start: 01-18-2022 End: 07-01-2022 take 1 tablet by mouth three times daily Clonazepam 0.5 mg Tablet Discontinued 0.5 mg PO THREE TIMES A DAY January 18, 2022 12:00am July 01, 2022 9:56am Start: 01-18-2022 End: 07-01-2022 escitalopram 10 mg oral tablet (20 sources) Serotonin Reuptake Inhibitor Start: 01-25-2024 End: 05-07-2024 take 1 tablet by mouth once daily Escitalopram Oxalate 10 mg tablet Discontinued 10 mg PO daily January 25, 2024 1:00am May 07, 2024 3:06pm Start: 02-28-2023 End: 01-25-2024 take 3 tablets by mouth once daily Escitalopram Oxalate (Lexapro) 5 mg tablet Discontinued 15 mg PO DAILY February 28, 2023 1:00am January 25, 2024 11:50am Start: 02-28-2023 take 1 tablet by kane th once daily Escitalopram Oxalate (Lexapro) 5 mg tablet Active 5 MG PO DAILY February 28, 2023 12:00am Start: 09-09-2022 End: 12-02-2022 take 1 tablet by mouth at bedtime Escitalopram Oxalate (Lexapro) 10 mg Tablet Discontinued 10 mg PO AT BEDTIME September 09, 2022 12:00am December 02, 2022 11:09am escitalopram oxa late (LEXAPRO ORAL) Take 15 mg by mouth. 0 Active Comment on above: Take 15 mg by mouth. flurbiprofen 100 mg oral tablet (18 sources) Nonsteroidal Anti-inflammatory Drug Start: End: 05-13-202 5 take 1 tablet by mouth three times daily Flurbiprofen 100 mg tablet Discontinued 100 mg PO THREE TIMES A DAY November 09, 2022 12:00am July 31, 2024 4:01pm take 1 tablet by mouth twice jimy ly Flurbiprofen 100 mg tablet Take 100 mg by mouth two times a day. 0 Active Comment on above: Take 100 mg by mouth two times a day. ibuprofen 400 mg oral tablet (1 source) Nonsteroidal Anti-inflammatory Drug take 1 tablet by mouth every six hours as needed ibuprofen (MOTRIN) 400 mg tablet Take 400 mg by mouth every 6 hours as needed. 0 Active Comment on above: Take 400 mg by mouth every 6 hours as needed. ammonium lactate 120 mg/ml topical cream (20 sources) Start: 2 End: 3 Ammonium Lactate 12 % Cream Discontinued 1 NMA TOPICAL TWICE A DAY January 18, 2022 12:00am July 01, 2022 10:48am Lactulose (20 sources) Osmotic Laxative Start: 3 End: 4 take 1 mL by mouth once daily Lactulose 10 gram/15 mL solution Discontinued 15 mL PO DAILY 473 November 09, 2022 12:00am June 29, 2023 11:27am Start: 11-09-2022 End: 06-29-2023 take 1 mL by mouth once daily Lactulose Discontinued 1 5 ML PO DAILY 473 November 09, 2022 12:00am June 29, 2023 11:27am Start: 11-09-2022 take 1 mL by mouth once daily Lactulose Active 15 ML PO DAILY November 08, 2022 11:00pm Start: 11-09-2022 take 1 mL by mouth once daily Lactulose Active 15 ML PO DAILY 473 November 09, 2022 12:00am Start: 09-09-2022 End: 06-29-2023 Lactulose 10 gram/15 mL Solu tion Discontinued 10 g PO TUTHSA September 09, 2022 12:00am June 29, 2023 11:28am Start: 09-09-2022 lamoTRIgine 100 mg oral tablet (20 sources) Mood Stabilizer, Anti-epileptic Agent Start: 01-18-2022 End: 07-01-2022 take 1 tablet by mouth once daily Lamotrigine 100 mg Tablet Discontinued 100 mg PO DAILY January 18, 2022 12:00am July 01, 2022 10:47am Start: 01-18-2022 End: 07-01-2022 take 1 tablet by mouth once daily Lamotrigine 50 mg Tablet Extended Release 24hr Discontinued 50 mg PO DAILY January 18, 2022 12:00am July 01, 2022 10:48am lifitegrast 50 mg/ml ophthalmic solution (1 source) Lymphocyte Function-Associated Antigen-1 Antagonist lifitegrast (XIIDRA) 5 % ophthalmic drops Use 1 Drop in eyes. 0 Active Comment on above: Use 1 Drop in eyes. linaclotide 0.072 mg oral capsule (12 sources) Guanylate Cyclase-C Agonist Start: 023 End: 024 take 1 capsule by mouth every other day as needed Linaclotide (Linzess) 72 mcg capsule Discontinued 72 ug PO EVERY OTHER DAY as needed July 11, 2023 2:21pm November 17, 2023 10:27am Start: 02-28-2023 take 1 capsule by cox branson once daily Linaclotide (Linzess) 72 mcg capsule Active 72 MCG PO DAILY February 28, 2023 12:00am linaclotide (LONNIE ZESS ORAL) Take 72 mcg by mouth. 0 Active Comment on above: Take 72 mcg by mouth . meloxicam 7.5 mg oral tablet (6 sources) Nonsteroidal Anti-inflammatory Drug Start: 5 End: 5 take 1 tablet by mouth twice daily as needed for pain Meloxicam 7.5 mg tablet Discontinued 7.5 mg PO TWICE A DAY as needed for pain 60 July 31, 2024 4:03pm August 06, 2024 2:18pm naproxen sodium 220 mg oral tablet (20 sources) Nonsteroidal Anti-inflammatory Drug Start: 2 End: 3 take 1 tablet by mouth twice daily Naproxen Sodium (Aleve) 220 mg Tablet Discontinued 220 mg PO TWICE A DAY January 18, 2022 12:00am July 01, 2022 9:56am Start: 01-18-2022 End: 11-09-2022 take 2 tablets by mouth twice daily Naproxen Sodium (Aleve) 220 mg tablet Discontinued 440 mg PO TWICE A DAY July 01, 2022 9:50am November 09, 2022 7:27pm oxyCODONE hydrochloride 5 mg oral tablet (18 sources) Opioid Agonist Start: 09-14-2022 End: 12-02-2022 take 5-10 mg by mouth every six hours as needed for pain Oxycodone 5 mg tablet Discontinued 5 - 10 mg PO EVERY 6 HOURS as needed for pain 30 5 September 14, 2022 December 02, 2022 11:12am red yeast rice 600 mg oral capsule (1 source) Red Yeast Rice Extract 600 mg cap Take 1 tablet by mouth. 0 Active Comment on above: Take 1 tablet by kane th. risperiDONE 0.25 mg oral tablet (20 sources) Atypical Antipsychotic Start: 07-01-2022 End: 02-28-2023 take 1 tablet by mouth once daily at bedtime Risperidone 0.25 mg tablet Discontinued 0.25 mg PO DAILY July 01, 2022 12:00am February 28, 2023 4:33pm Take one tab every AM and HS senna/docusate sodium (SENNA-C PLUS ORAL) (1 source) senna/docusate sodium (SENNA-C PLUS ORAL) Indications: PCO (posterior capsular opacification), left Take by mouth. 0 Active Comment on above: Take by mouth. sennosides (SENNA ORAL) (1 source) sennosides (CYNDEE A ORAL) Take by mouth. 0 Active Comment on above: Take by mouth. sertraline 50 mg oral tablet (20 sources) Serotonin Reuptake Inhibitor Start: 01-18-2022 End: 07-01-2022 take 1 tablet by mouth at bedtime Sertraline (Zoloft) 50 mg Tablet Discontinued 50 mg PO AT BEDTIME January 18, 2022 12:00am July 01, 2022 10:52am Start: 01-18-2022 End: 07-01-2022 Start: 10-20-2018 ZOLOFT 100 MG TABS 1 tablet daily SERTRALINE HCL [id number] Kenia Jones LPN sodium phosphate,mono-dibasic (FLEET ENEMA RECTAL) (1 source) sodium phosphate,mono-dibasic (FLEET ENEMA RECTAL) by RECTAL route. 0 Active Comment on above: by RECTAL route. divalproex sodium 125 mg delayed release oral tablet (20 sources) Mood Stabilizer, Anti-epilept ic Agent Start: 2023 End: 2024 take 1 tablet by mouth once Divalproex 125 mg tablet,delayed release (DR/EC) Discontinued 125 mg PO ONCE January 25, 2024 1:00am May 07, 2024 3:06pm Start: 06-29-2023 End: 07-29-2023 Divalproex 125 mg capsule, d elayed rel sprinkle Discontinued 125 mg PO AT BEDTIME June 29, 2023 11:36am July 28, 2023 12:00am July 29, 2023 12:06am Discontinue divalproex DR 250mg nightly. Take divalproex DR 125mg nightly for 1 month then discontinue Divalproex DR. Start: 06-29-2023 End: 07-29-2023 Divalproex Discontinued 125 MG PO AT BEDTIME June 29, 2023 11:36am July 29, 2023 12:06am Discontinue divalproex DR 250mg nightly. Take divalproex DR 125mg nightly for 1 month then discontinue Divalproex DR. Start: 02-28-2023 End: 06-29-2023 take 1 capsule by mouth once Divalproex 125 mg capsule , delayed rel sprinkle Discontinued 125 mg PO ONCE February 28, 2023 1:00am June 29, 2023 11:34am Start: 02-28-2023 End: 06-29-2023 take 1 tablet by mouth at bedtime Divalproex 250 mg tablet,delayed release (DR/EC) Discontinued 250 mg PO BEDTIME February 28, 2023 1:00am June 29, 2023 11:32am Start: 11-09-2022 End: 12-02-2022 take 1 capsule by mouth twice daily Divalproex 125 mg capsule, delayed rel sprinkle Discontinued 125 mg PO TWICE A DAY 60 November 09, 2022 12:00am December 02, 2022 11:08am Start: 07-01-2022 End: 11-09-2022 take 1 tablet by mouth twice daily Divalproex 250 mg tablet,delayed release (DR/EC) Discontinued 250 mg PO TWICE A DAY July 01, 2022 12:00am November 09, 2022 7:33pm take 1 tablet by th three times daily divalproex DR (DEPAKOTE) 125 mg EC tablet Take 125 mg by mouth three times a day. 0 Active Comment on above: Take 125 mg by mouth three times a day. vit B complex no.12/niacin,B3, (VITAMIN B COMPLEX NO.12-NIACIN ORAL) (1 source) vit B complex no.12/niacin,B3, (VITAMIN B COMPLEX NO.12-NIACIN ORAL) Indications: PCO (posterior capsular opacification), left Take by mouth. 0 Active Comment on above: Take by mouth. vitamin b12 0.5 mg oral tablet (20 sources) Vitamin B12 Start: 01-18-2022 End: 07-01-2022 take 1 tablet by mouth once daily Cyanocobalamin (Vitamin B-12) (Vitamin B-12) 500 mcg Tablet Discontinued 500 ug PO DAILY January 18, 2022 12:00am July 01, 2022 10:49am Problems Active Problems Problem Classification Problem Date Documented Date Episodic/Chronic Anxiety disorders (1 source) Generalized anxiety disorder; Translations: [Generalized anxiety disorder] Onset: 04-13-2024 Chronic Cataract (2 sources) After-cataract of right eye; Translations: [Other secondary cataract, right eye] 12-29-2022 Chronic Delirium, dementia, and amnestic and other cognitive disorders (20 sources) Dementia; Translations: [Unspecified dementia without behavioral disturbance] Onset: 01-20-2024 04-16-2022 Chronic Comment on above: ON MED Disorders of lipid metabolism (1 source) Hyperlipidemia, unspecified; Translations: [Hyperlipidemia, unspecified] Onset: 08-10-2024 Chronic E Codes: Fall (20 sources) Fall; Translations: [Unspecified fall, initial encounter] 10-18-2021 Episodic Hemorrhoids (20 sources) Bleeding hemorrhoids; Translations: [Unspecified hemorrhoids] 09-06-2022 Episodic Mood disorders (2 sources) Bipolar disorder, unspecified; Translations: [Major depressive disorder, recurrent, moderate] Onset: 04-13-2024 Chronic Nutritional deficiencies (2 sources) Vitamin D deficiency, unspecified; Translations: [Unspecified protein-calorie malnutrition] Onset: 06-27-2024 Chronic Nutritional deficiencies (9 sources) Folic acid deficiency; Translations: [Deficiency of other specified B group vitamins] Onset: 06-28-2024 06-29-2023 Episodic Other aftercare (1 source) Other fpc (current) drug therapy; Translations: [Other termite exterminator helper (current) drug therapy] Onset: 06-27-2024 Episodic Other connective tissue disease (20 sources) Muscle pain; Translations: [Myalgia, unspecified site] 07-01-2022 Episodic Other connective tissue disease (19 sources) Myalgia, unspecified site; Translations: [Myalgia and myositis, unspecified] Onset: 06-28-2024 07-01-2022 Episodic Other connective tissue disease (7 sources) Calcific tendinitis of left shoulder; Translations: [Calcific tendinitis of left shoulder] 05-27-2023 Episodic Other connective tissue disease (5 sources) Calcific tendinitis of left shoulder; Translations: [Calcifying tendinitis of shoulder] 05-27-2023 Episodic Other connective tissue disease (4 sources) Recurrent falls ; Translations: [Repeated falls] 08-06-2024 Episodic Other connective tissue disease (2 sources) Repeated falls; Translations: [Repeated falls] Onset: 08-06-2024 Episodic Other diseases of bladder and urethra (1 source) Reflex neuropathic bladder, not elsewhere classified; 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, not elsewhere classified] Onset: 04-13-2024 Chronic Other eye disorders (1 source) Epithelial basement membrane dystrophy; 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] 12-29-2022 Episodic Other eye disorders (1 source) Tear film insufficiency; Translations: [Dry eye syndrome of bilateral lacrimal glands] 12-29-2022 Episodic Other fractures (20 sources) Compression fracture of thoracic spine; Translations: [Wedge compression fracture of T11-T12 vertebra, initial encounter for closed fracture] 04-16-2022 Episodic Other hereditary and degenerative nervous system conditions (20 sources) Essential tremor; Translations: [Essential tremor] 07-21-2022 Chronic Other hereditary and degenerative nervous system conditions (18 sources) Essential tremor; Translations: [Essential and other specified forms of tremor] Onset: 06-28-2024 07-01-2022 Chronic Other injuries and conditions due to external causes (20 sources) Closed injury of head; Translations: [Unspecified injury of head, initial encounter] 10-18-2021 Episodic Other injuries and conditions due to external causes (20 sources) Contusion of multiple sites; Translations: [Unspecified multiple injuries, initial encounter] 02-09-2022 Episodic Other lower respiratory disease (13 sources) Rib pain; Translations: [Pleurodynia] 11-17-2022 Episodic Other nervous system disorders (1 source) Other chronic pain; Translations: [Other chronic pain] Onset: 06-28-2024 Chronic Other nervous system disorders (20 sources) Abnormal gait; Translations: [Unspecified abnormalities of gait and mobility] 07-21-2022 Episodic Other nervous system disorders (20 sources) Tremor; Translations: [Tremor, unspecified] 07-21-2022 Episodic Other nervous system disorders (17 sources) Unspecified abnormalities of gait and mobility; Translations: [Abnormality of gait] Onset: 08-06-2024 07-01-2022 Episodic Other nervous system disorders (1 source) Dysarthria; Translations: [Dysarthria and anarthria] 08-06-2024 Episodic Other nervous system disorders (1 source) Dysarthria and anarthria; Translations: [Dysarthria and anarthria] Onset: 08-22-2024 Episodic Other non-traumatic joint disorders (17 sources) Pain in right shoulder; Translations: [Right shoulder pain] Onset: 06-28-2024 02-28-2023 Episodic Other non-traumatic joint disorders (4 sources) Pain in left shoulder; Translations: [Left shoulder pain] 07-11-2023 Episodic Other nutritional; endocrine; and metabolic disorders (17 sources) Hyperammonemia; Translations: [Disorder of urea cycle metabolism, unspecified] 11-09-2022 Chronic Other nutritional; endocrine; and metabolic disorders (13 sources) Disorder of urea cycle metabolism, unspecified; 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] Onset: 12-02-2023 11-09-2022 Chronic Residual codes; unclassified (7 sources) Not for resuscitation; Translations: [Do not resuscitate] 06-09-2023 Episodic Spondylosis; intervertebral disc disorders; other back problems (1 source) Spondylosis without myelopathy or radiculopathy, lumbar region; Translations: [Spondylosis without myelopathy or radiculopathy, lumbar region] Onset: 08-08-2024 Chronic Spondylosis; intervertebral disc disorders; other back problems (20 sources) Low back pain; Translations: [Low back pain] 11-30-2021 Episodic Sprains and strains (20 sources) Strain of neck muscle; Translations: [Strain of muscle, fascia and tendon at neck level, initial encounter] 08-27-2022 Episodic Superficial injury; contusion (20 sources) Contusion of shoulder region; Translations: [Contusion of right shoulder, initial encounter] 08-27-2022 Episodic Thyroid disorders (2 sources) Hypothyroidism, unspecified; Translations: [Hypothyroidism, unspecified] Onset: 02-24-2024 Chronic Unclassified (2 sources) M54.50 - Low back pain, unspecified,G89.29 - Other chronic pain Unclassified (1 source) Low back pain, unspecified; Translations: [Low back pain, unspecified] Onset: 06-28-2024 Past or Other Problems Problem Classification Problem Date Documented Da te Episodic/Chronic Other fractures (15 sources) Wedge compression fracture of unspecified thoracic vertebra, initial encounter for closed fracture; Translations: [Closed fracture of dorsal [thoracic] vertebra without mention of spinal cord injury] 11-09-2022 Episodic Other lower respiratory disease (11 sources) Pleurodynia; Translations: [Chest pain, unspecified] 11-17-2022 Episodic Other non-traumatic joint disorders (1 source) Hip pain; Translations: [Pain in left hip] Onset: 10-24-2018 10-24-2018 Episodic Unclassified (1 source) Problem Results Test Name Value Interpretation Reference Range Facility Brain without Contraston Brain without Contrast [facility] Imaging Services [address] [place], [place] [id number] Brain without Contrast MR#: [id number] Acct: [id number] Name: CANDI AGUILAR ANN Rep #: [id number] : 1950 F 73 From: Kavon Graham MD PCP: Claudia Anderson MD Status: REG CLI Study: Brain without Contrast Date of Exam: 08/22/24 Exam# [id number] Ordering Dr: Medardo Mayo MD PROCEDURE: BRAIN WITHOUT CONTRAST 08/22/2024 REASON FOR EXAM: WORSENING GAIT IMBALANCE; MULTIPLE FALLS TECHNIQUE: Noncontrast brain MRI. Multiplanar and multisequence images were obtained. COMPARISON: None. FINDINGS: Mild global parenchymal atrophy. Periventricular white matter T2/FLAIR hyperintense foci likely representing mild chronic microvascular ischemia. No evidence of acute hemorrhage or infarction. No extra-axial blood or fluid collections. The paranasal sinuses are clear. Absent kaltag ocular lenses. Partial left mastoid effusion. MRI/Brain without Contrast IMPRESSION: No acute intracranial abnormalities. Reading Location: [id number] CC: Dr. Medardo Mayo MD; Claudia Anderson MD Hairspring Cutter: Signed Normal [facility] Thyroid Stim Hormone (TSH)on 08-15-2024 TSH 1.280 uIU/mL Normal 0.300-4.200 [facility] Comment on above: Order Comment: 214 Performed By: #### L [id number] #### [facility] [address]. [place], [place], [address] Lumbar Spine 2 or 3 Viewson 08-06-2024 Lumbar Spine 2 or 3 Views [facility] Imaging Services [address], [place] [address] Lumbar Spine 2 or 3 Views MR#: [id number] Acct: [id number] Name: CANDI AGUILAR Rep #: [id number] : 1950 F 73 From: Manuel Rojas MD PCP: Claudia Anderson MD Status: REG CLI Study: Lumbar Spine 2 or 3 Views Date of Exam: Exam# [id number] Ordering Dr: Kendra Bran MD PROCEDURE: LUMBAR SPINE 2 OR 3 VIEWS 08/06/2024 REASON FOR EXAM: SPONDYLOSIS WITHOUT MYELOPATHY OR RADICULOPATHY, LUMBAR REGION TECHNIQUE: 2 view(s) of the lumbar spine COMPARISON: 05/27/2023 FINDINGS: 5 had-zgt-[id number] lumbar vertebral body types identified. No acute fracture or malalignment. There is again note of a remote moderate T11 compression deformity with anterior wedging, unchanged. L1-2 moderate disc space narrowing L2-3 qfnc-[id number] disc space narrowing with degenerative endplate change L3-4 rwgshcip-fv-uihekq disc space narrowing with degenerative endplate change L4-5 tqkm-fs-mdvbksqq disc space narrowing and degenerative endplate change Lower lumbar facet degenerative changes RAD/Lumbar Spine 2 or 3 Views IMPRESSION: No significant interval change in appearance of multilevel spondylosis/discogeni c change as above. Reading Location: [id number] CC: Dr. Kendra Bran MD; Claudia Anderson MD Hairspring Cutter: Signed Normal [facility] Neurology Visit Reporton Neurology Visit Report [facility] [address], [address] [place] [address] OFFICE VISIT Date of Service: 08/06/24 MR#: [id number] Acct: [id number] Name: CANDI AGUILAR ANN Rep #: [id number] : 1950 Provider: Dr. Medardo hawkins MD Age/Sex: 73/F [place] [facility] [place] [facility] [place]: Signed HPI HPI Chief Complaint: Details: Note: Candi returns for follow-up visit. She has a history of hyperlipidemia, essential tremor, vitamin D deficiency, dementia, depression, anxiety and bipolar disorder. She resides in a intermediate facility. She apparently began to have memory difficulty since at least 2012. She has a tendency to forget conversations. She had poor recall of past events. Around 2020, she moved from home to an assisted living arrangement. She had multiple falls and in January 2022 was admitted to a intermediate facility. She had further falls since her last visit in April 2024 including about 3 falls within the past month. She states that she has a tendency to fall to the right. She takes donepezil and memantine for her dementia. She presents to the office alone today. She has used a rollator since 2019. More recently she prefers using a cane. Physical therapy in the past was of some benefit except for her back pain. She is now receiving further physical therapy. She has chronic low back pain and bilateral lower extremity radicular pain (right greater than left). Lumbar paraspinal muscle trigger point injections have been of benefit. She also has left knee and left hip pain. She also has chronic neck pain. She has severe right shoulder pain that has been present since at least 2022. Right shoulder x-rays reveal osteopenia. The right shoulder MRI reveals arthrosis and a partial articular supraspinatus tendon avulsion. Her movement of the right shoulder is limited. She had a right shoulder joint injection in 2023 but did not recall noting any benefit from this; she is not following up with an orthopedic surgeon at this time. Naproxen and flurbiprofen were of only modest benefit for her pain. Ibuprofen was not of benefit. Meloxicam is of moderate benefit for her musculoskeletal pain. She denied having numbness, lightheadedness or vertigo. She has chronic bilateral hearing loss. She has chronic bilateral blurring of vision. She had bilateral cataract surgeries in the past. She has had a tremor in the hands for many years. She has a tendency to drop objects. Primidone is of some benefit for her tremor. Her tremor has continued to interfere with activities such as handwriting. Mini-Mental status exam score in June 2022 was 15/30 and 19/30 in October 2022. Laboratory studies from July 2022 reveal a low folate level and elevated ammonia level. Folate supplementation was initiated. Lactulose was initiated. Her last ammonia level (November 2022) was normal. Her lumbar MRI from July 2022 reveals an acute T11 moderate compression fracture. Mini-Mental status exam score was 18/30 in April 2023. Physical Exam: Neuro: The patient is awake; she has bradyphrenic; speech is slow and hesitant; basic conversational language function is preserved; Mini-Mental status exam score is 18/30 she exhibits an intermittent right hand tremor; gait is slow and mildly unsteady; she is able to ambulate independently for short distances; she has a cane; motor strength is 5/5 in the quadriceps bilaterally and left foot dorsiflexors, 4+/5 in the iliopsoas bilaterally and right foot dorsiflexors HEENT: Tympanic membranes are clear Back: Bilateral lower lumbar erector spinae muscle tenderness is noted Supplemental Info Lumbar spine x-rays (02/01/2022): FINDINGS: VERTEBRAE:??? Slight anterior subluxation of L4 and L5.??? Diffuse idea-an-wufugkba spondylitic changes.??? Bilateral multilevel vertebral facet arthropathy in the lower lumbar spine.??? Old compression fracture T11. Preservation of the normal lumbar lordosis. DISC SPACES:??? No acute findings.??? Disc spaces are maintained. GASTROINTESTINAL TRACT:??? Unremarkable as visualized.??? Included bowel gas pattern is non-obstructive. IMPRESSION: 1.??? Degenerative changes.??? No acute fractures or subluxations. 2.??? Old compression fracture T11. These images were reviewed on 07/01/2022. Magnesium, vitamin D (02/16/2022): Normal. Lamotrigine level (03/11/2022): 3 (in therapeutic range) CMP, urinalysis (04/15/2022): BUN 24 (high), BUN/creatinine ratio 28.1 (high) Urine culture (04/15/2022): No growth. EKG (04/15/2022): Sinus bradycardia, ventricular rate 59 bpm. Otherwise normal EKG. Thoracic spine CT (04/15/2022): FINDINGS: VERTEBRAE: Acute on chronic severe compression deformity of T11. Minimal retropulsion of bony fragments.No discrete lytic or blastic abnormality observed. VERTEBRAL ALIGNMENT: Unremarkable. There is exaggeration of the normal thoracic kyphosis. DISCS: Moderate multilevel de (more content not included)... Normal [facility] Bilirubin directOrdered By: True Holguin on 07-12-2024 Bilirubin.direct [Mass/Vol] mg/dL 0.00-0.30 [facility] Bilirubin, totalOrdered By: True Holguin on 07-12-2024 Bilirubin [Mass/Vol] mg/dL 0.00-1.30 [facility] CBC-Complete Blood Cnt No Di ffon 07-12-2024 Erythrocyte distribution width (RBC) [Ratio] 13.4 % Normal 11.6-14.6 [facility] Comment on above: Performed By: #### L 500.3400, L100.0500 #### [facility] [address] [place], [place], [address] Hematocrit (Bld) [Volume fraction] 35.0 % Low 37-47 [facility] Comment on above: Performed By: #### L 500.3400, L100.0500 #### [facility] [address] [place], [address] Hemoglobin (Bld) [Mass/Vol] 10.9 g/dL Low 12.0-15.0 [facility] Comment on above: Performed By: #### L 500.3400, L100.0500 #### [facility] [address] [place], [address] MCH (RBC) [Entitic mass] 32.8 pg High 27.0-32.0 [facility] Comment on above: Performed By: #### L 500.3400, L100.0500 #### [facility] [address] [place], [address] MCHC (RBC) [Mass/Vol] 31.1 g/dL Low 32-36 [facility] Comment on above: Performed By: #### L 500.3400, L100.0500 #### [facility] [address] [place], [address] MCV (RBC) [Entitic vol] 105.4 fL High 81-99 [facility] Comment on above: Performed By: #### L 500.3400, L100.0500 #### [facility] [address] [place], [address] Platelet mean volume (Bld) [Entitic vol] 10.4 fL Normal 6.2-12.0 [facility] Comment on above: Performed By: #### L 500.3400, L100.0500 #### [facility] [address] [place], [address] Platelets (Bld) [#/Vol] 223 10*3/uL Normal 150-450 [facility] Comment on above: Performed By: #### L 500.3400, L100.0500 #### [facility] [address] [place], [address] RBC (Bld) [#/Vol] 3.32 10*6/uL Low 4.2-5.4 [facility] Comment on above: Performed By: #### L 500.3400, L100.0500 #### [facility] [address] [place], [address] RDW SD 52.5 fl High 35.1-43.9 [facility] Comment on above: Performed By: #### L 500.3400, L100.0500 #### [facility] [address] [place], [address] WBC (Bld) [#/Vol] 6.3 10*3/uL Normal 4.4-11.0 [facility] Comment on above: Performed By: #### L 500.3400, L100.0500 #### [facility] [address] [place], [address] Erythrocyte distribution wid th ratioOrdered By: True Holguin on 07-12-2024 Erythrocyte distribution width (RBC) [Ratio] 13.4 % 11.6-14.6 [facility] Erythrocyte distribution wid th standard deviationOrdered By: True Holguin on 07-12-2024 Erythrocyte distribution width (RBC) [Ratio] 52.5 fl High 35.1-43.9 [facility] Hematocrit Auto (Bld) [Volum e fraction]Ordered By: True Holguin on 07-12-2024 Hematocrit (Bld) [Volume fraction] 35.0 % Low 37-47 [facility] Hemoglobin measurementOrdere d By: True Holguin on 07-12-2024 Hemoglobin (Bld) [Mass/Vol] 10.9 g/dL Low 12.0-15.0 [facility] - Chemistry and C hemistry - challengeOrdered By: True Holguin on 07-12-2024 AST [Catalytic activity/Vol] 17 U/L <32 [facility] Liver Profileon 07-12-2024 Albumin [Mass/Vol] 3.2 g/dL Low 3.4-4.8 [facility] Comment on above: Performed By: #### L 500.3400, L100.0500 #### [facility] [address] [place], [address] ALK PHOS 112 U/L High 35-104 [facility] Comment on above: Performed By: #### L 500.3400, L100.0500 #### [facility] [address] [place], [address] ALT [Catalytic activity/Vol] U/L Normal <=34 [facility] Comment on above: Performed By: #### L 500.3400, L100.0500 #### [facility] [facility] [address] [place], [address] AST [Catalytic activity/Vol] 17 U/L Normal <=31 [facility] Comment on above: Performed By: #### L 500.3400, L100.0500 #### [facility] [address] [place], [address] D BILI < 0.08 Normal 0.00-0.30 [facility] Comment on above: Performed By: #### L 500.3400, L100.0500 #### [facility] [address] [place], [address] Globulin (S) [Mass/Vol] 2.5 g/dL Normal 2.2-4.2 [facility] Comment on above: Performed By: #### L 500.3400, L100.0500 #### [facility] [address] [place], [address] T BILI < 0.15 Normal 0.00-1.30 [facility] Comment on above: Performed By: #### L 500.3400, L100.0500 #### [facility] [address] [place], [address] T PROT 5.7 g/dL Low 5.9-8.4 [facility] Comment on above: Performed By: #### L 500.3400, L100.0500 #### [facility] [place], [address] MCV (mean corpuscular volume ) determinationOrdered By: True Holguin on 07-12-2024 MCV (RBC) [Entitic vol] 105.4 fL High 81-99 [facility] Mean corpuscular hemoglobin (MCH) determinationOrdered By: True Holguin on 07-12-2024 MCH (RBC) [Entitic mass] 32.8 pg High 27.0-32.0 [facility] Mean corpuscular hemoglobin concentration (MCHC) determinationOrdered By: True Holguin on 07-12-2024 MCHC (RBC) [Mass/Vol] 31.1 g/dL Low 32-36 [facility] Mean platelet volume determi nationOrdered By: True Holguin on 07-12-2024 Platelet mean volume (Bld) [Entitic vol] 10.4 fL 6.2-12.0 [facility] Platelet countOrdered By: Roni Holguin on 07-12-2024 Platelets (Bld) [#/Vol] 223 10*3/uL 150-450 [facility] RBC Auto (Bld) [#/Vol]Ordere d By: True Holguin on 07-12-2024 RBC (Bld) [#/Vol] 3.32 10*6/uL Low 4.2-5.4 [facility] Serum globulin measurementOr dered By: True Holguin on 07-12-2024 Globulin (S) [Mass/Vol] 2.5 g/dL 2.2-4.2 [facility] Serum or plasma alanine dacosta otransferase (ALT) measurementOrdered By: True Holguin on 07-12-2024 ALT [Catalytic activity/Vol] U/L <35 [facility] Serum or plasma albumin moriah urement (mass/volume)Ordered By: True Holguin on 07-12-2024 Albumin [Mass/Vol] 3.2 g/dL Low 3.4-4.8 [facility] Serum or plasma alkaline boo sphatase measurementOrdered By: True Holguin on 07-12-2024 ALP [Catalytic activity/Vol] 112 U/L High 35-104 [facility] Total proteinOrdered By: Aisha Holguin on 07-12-2024 Protein [Mass/Vol] 5.7 g/dL Low 5.9-8.4 [facility] White blood cell (WBC) count Ordered By: True Holguin on 07-12-2024 WBC (Bld) [#/Vol] 6.3 10*3/uL 4.4-11.0 [facility] Vitamin D,25 Hydroxyon 06-25 Vitamin D 25-OH 10.3 ng/mL Low 30-100 [facility] Comment on above: Order Comment: 214 Result Comment: Stephanie min D Status Deficiency: <20 ng/mL (50nmol/L) Insufficiency: 20-30 ng/mL (50-75 nmol/L) Sufficiency: 30-100 ng/mL (75-250 nmol/L) Toxicity: >100 ng/mL (>250 nmol/L) Performed By: #### L 506.1001 #### [facility] [address] [place] [address]. [place], [place], [address] Neurology Visit Reporton Neurology Visit Report [facility] [address] [facility], [address] [place] [id number] OFFICE VISIT Date of Service: 05/07/24 MR#: [id number] Acct: [id number] Name: CANDI AGUILAR ANN Rep #: [id number] : 1950 Provider: Dr. Medardo hawkins MD Age/Sex: 73/F Location: [facility] Status: Signed with Addenda ADDENDUM by Dr. Medardo Mayo MD on 07/31/24 at 1612 Addendum Addendum (07/31/2024): Meloxicam will be prescribed as 7.5 mg twice daily as a scheduled dose rather than as needed dosing. 07/31/24 1612 Date Medardo Mayo MD cc: * Signed ADDENDUM by Dr. Medardo Mayo MD on 07/31/24 at 1601 Addendum Addendum (07/31/2024): Flurbiprofen is not available at the patient's pharmacy. I will have her begin meloxicam 7.5 mg twice daily as needed for her pain. 07/31/24 1601 Date Medardo Mayo MD cc: * Signed HPI HPI Chief Complaint: Details: Interim History: Candi returns for follow-up visit. She has a history of hyperlipidemia, essential tremor, vitamin D deficiency, dementia, depression, anxiety and bipolar disorder. She resides in a intermediate facility and information presently available is limited. She apparently began to have memory difficulty since at least 2012 and this worsened over time including further worsening within recent months according to the patient. She has a tendency to forget conversations. She had difficulty managing her own finances. She had poor recall of past events. Around 2020, she moved from home to an assisted living arrangement. She had multiple falls and in January 2022 was admitted to a intermediate facility. She had further falls since her last visit in January 2024. She is prescribed venlafaxine, buspirone, and trazodone. She no longer takes clonazepam or risperidone. She takes donepezil and memantine for her dementia. She presents to the office alone today. Divalproex DR prescribed for mood stabilization was discontinued. She has used a rollator since 2019. Physical therapy in the past was of some benefit except for her back pain. She has chronic low back pain and bilateral lower extremity radicular pain (left greater than right) and reports that her low back pain is now prominent. Lumbar paraspinal muscle trigger point injections have been of benefit. She also has left knee and left hip pain. She also has chronic neck pain. She has severe right shoulder pain that has been present since at least 2022. Right shoulder x-rays reveal osteopenia. The right shoulder MRI reveals arthrosis and a partial articular supraspinatus tendon avulsion. Her movement of the right shoulder is limited. She had a right shoulder joint injection in 2023 but did not recall noting any benefit from this; she is not following up with an orthopedic surgeon at this time. Naproxen was of only modest benefit for her pain. Ibuprofen was not of benefit. Flurbiprofen has been of modest benefit for her musculoskeletal pain. She denied having numbness, lightheadedness or vertigo. She has chronic bilateral hearing loss. She has chronic bilateral blurring of vision. She had bilateral cataract surgeries in the past. She has had a tremor in the hands for many years. She has a tendency to drop objects. Primidone is of some benefit for her tremor. Her tremor has continued to interfere with activities such as handwriting. Mini-Mental status exam score in June 2022 was 15/30 and 19/30 in October 2022. Laboratory studies from July 2022 reveal a low folate level and elevated ammonia level. Folate supplementation was initiated. Lactulose was initiated. Her last ammonia level (November 2022) was normal. Her lumbar MRI from July 2022 reveals an acute T11 moderate compression fracture. Physical Exam: Neuro: The patient is awake; she has bradyphrenic; speech is slow; basic conversational language function is preserved; Mini-Mental status exam score is 18/30 she exhibits an intermittent right barragan nd tremor; gait is slow and slightly unsteady; she is able to ambulate independently for short distances; she has a cane; motor strength is 5/5 in the quadriceps bilaterally and left foot dorsiflexors, 4+/5 in the iliopsoas bilaterally and right foot dorsiflexors HEENT: Tympanic membranes are clear Back: Bilateral lower lumbar erector spinae muscle tenderness is noted Supplemental Info Lumbar spine x-rays (02/01/2022): FINDINGS: VERTEBRAE:??? Slight anterior subluxation of L4 and L5.??? Diffuse [id number] spondylitic changes.??? Bilateral multilevel vertebral facet arthropathy in the lower lumbar spine.??? Old compression fracture T11. Preservation of the normal lumbar lordosis. DISC SPACES:??? No acute findings.??? Disc spaces are maintained. GASTROINTESTINAL TRACT:??? Unremarkable as visualized.??? Included bari (more content not included)... Normal [facility] Bilirubin directOrdered By: Claudia Anderson on 04-13-2024 Bilirubin.direct [Mass/Vol] 0.08 mg/dL 0.00-0.30 [facility] Bilirubin, totalOrdered By: Claudia Anderson on 04-13-2024 Bilirubin [Mass/Vol] 0.20 mg/dL 0.20-1.00 [facility] Comment on above: For patients on eltr ombopag therapy, use of Dimension [place] TBIL is not recommended. Blood manual differential co mment interpretation (narrative result)Ordered By: Claudia Anderson on 04-13-2024 Manual differential comment Anant (Bld) [Interp] COMMENT [facility] Comment on above: PLT ESTIMATE - PLT S LIGHT DECREASE. CBC-Complete Blood Cnt No Di ffon 04-13-2024 PLT TNP Normal 150-450 [facility] Comment on above: Order Comment: Result Comment: Michele miller note: For this sample, a platelet estimate is provided rather than a platelet count due to platelet clumping. Other parameters associated with this sample are not affected by platelet clumping. If a more accurate platelet count is required, a redraw of the patient will be necessary. Performed By: #### L 500.3400, L100.0500 #### [facility] [address] [place], [address] Erythrocyte distribution width (RBC) [Ratio] 12.9 % Normal 11.6-14.6 [facility] Comment on above: Order Comment: Performed By: #### L 500.3400, L100.0500 #### [facility] [address] [place], [address] Hematocrit (Bld) [Volume fraction] 39.3 % Normal 37-47 [facility] Comment on above: Order Comment: Performed By: #### L 500.3400, L100.0500 #### [facility] [address] [place], [address] Hemoglobin (Bld) [Mass/Vol] 12.4 g/dL Normal 12.0-15.0 [facility] Comment on above: Order Comment: 214-1 Performed By: #### L 500.3400, L100.0500 #### [facility] [address] [place], [address] MCH (RBC) [Entitic mass] 33.4 pg High 27.0-32.0 [facility] Comment on above: Order Comment: 214-1 Performed By: #### L 500.3400, L100.0500 #### [facility] [address] [place], [address] MCHC (RBC) [Mass/Vol] 31.6 g/dL Low 32-36 [facility] Comment on above: Order Comment: 214-1 Performed By: #### L 500.3400, L100.0500 #### [facility] [address] [place], [address] MCV (RBC) [Entitic vol] 105.9 fL High 81-99 [facility] Comment on above: Order Comment: 214-1 Performed By: #### L 500.3400, L100.0500 #### [facility] [address] [place], [address] Platelet mean volume (Bld) [Entitic vol] 11.2 fL Normal 6.2-12.0 [facility] Comment on above: Order Comment: 214-1 Performed By: #### L 500.3400, L100.0500 #### [facility] [address] [place], [address] RBC (Bld) [#/Vol] 3.71 10*6/uL Low 4.2-5.4 [facility] Comment on above: Order Comment: 214-1 Performed By: #### L 500.3400, L100.0500 #### [facility] [address] [place], [address] RDW SD 50.0 fl High 35.1-43.9 [facility] Comment on above: Order Comment: Performed By: #### L 500.3400, L100.0500 #### [facility] [address] [place], [address] WBC (Bld) [#/Vol] 5.5 10*3/uL Normal 4.4-11.0 [facility] Comment on above: Order Comment: Performed By: #### L 500.3400, L100.0500 #### [facility] [address] [place], [address] Differential Commenton 04-13 SMEAR COMMENT COMMENT Normal [facility] Comment on above: Order Comment: Result Comment: PLT ESTIMATE - PLT SLIGHT DECREASE. Performed By: #### L 500.3400, L100.0500 #### [facility] [address] [place], [address] Erythrocyte distribution wid th ratioOrdered By: Claudia Anderson on 04-13-2024 Erythrocyte distribution width (RBC) [Ratio] 12.9 % 11.6-14.6 [facility] Erythrocyte distribution wid th standard deviationOrdered By: Claudia Anderson on 04-13-2024 Erythrocyte distribution width (RBC) [Ratio] 50.0 fl High 35.1-43.9 [facility] Hematocrit Auto (Bld) [Volum e fraction]Ordered By: Claudia Anderson on 04-13-2024 Hematocrit (Bld) [Volume fraction] 39.3 % 37-47 [facility] Hemoglobin measurementOrdere d By: Claudia Anderson on 04-13-2024 Hemoglobin (Bld) [Mass/Vol] 12.4 g/dL 12.0-15.0 [facility] - Chemistry and C hemistry - challengeOrdered By: Claudia Anderson on 04-13-2024 AST [Catalytic activity/Vol] 14 U/L Low 15-37 [facility] Liver Profileon 04-13-2024 Albumin [Mass/Vol] 2.7 g/dL Low 3.2-5.0 [facility] Comment on above: Order Comment: 214-1 Performed By: #### L 500.3400, L100.0500 #### [facility] [address] [place], [address] ALK P 93 U/L Normal 45-117 [facility] Comment on above: Order Comment: 214-1 Performed By: #### L 500.3400, L100.0500 #### [facility] [address] [place], [address] ALT [Catalytic activity/Vol] 11 U/L Low 13-56 [facility] Comment on above: Order Comment: - Performed By: #### L 500.3400, L100.0500 #### [facility] [address] [place], [address] AST [Catalytic activity/Vol] 14 U/L Low 15-37 [facility] Comment on above: Order Comment: - Performed By: #### L 500.3400, L100.0500 #### [facility] [address] [place], [address] Bilirubin [Mass/Vol] 0.20 mg/dL Normal 0.20-1.00 [facility] Comment on above: Order Comment: Result Comment: For patients on eltrombopag therapy, use of Dimension [place] TBIL is not recommended. Performed By: #### L 500.3400, L100.0500 #### [facility] [address] [place], [address] Bilirubin.direct [Mass/Vol] 0.08 mg/dL Normal 0.00-0.30 [facility] Comment on above: Order Comment: - Performed By: #### L 500.3400, L100.0500 #### [facility] [address] [place], [address] Globulin (S) [Mass/Vol] 2.8 g/dL Normal 2.2-4.2 [facility] Comment on above: Order Comment: - Performed By: #### L 500.3400, L100.0500 #### [facility] [address] [place], [address] T PROT 5.5 g/dL Low 6.4-8.2 [facility] Comment on above: Order Comment: - Performed By: #### L 500.3400, L100.0500 #### [facility] [address] [place], [address] MCV (mean corpuscular volume ) determinationOrdered By: Claudia Anderson on 04-13-2024 MCV (RBC) [Entitic vol] 105.9 fL High 81-99 [facility] Mean corpuscular hemoglobin (MCH) determinationOrdered By: Claudia Anderson on 04-13-2024 MCH (RBC) [Entitic mass] 33.4 pg High 27.0-32.0 [facility] Mean corpuscular hemoglobin concentration (MCHC) determinationOrdered By: Claudia Anderson on 04-13-2024 MCHC (RBC) [Mass/Vol] 31.6 g/dL Low 32-36 [facility] Mean platelet volume determi nationOrdered By: Claudia Anderson on 04-13-2024 Platelet mean volume (Bld) [Entitic vol] 11.2 fL 6.2-12.0 [facility] Platelet countOrdered By: Harmeet Anderson on 04-13-2024 Platelet count TNP [facility] Comment on above: Test not performedPl ease note: For this sample, a platelet estimate is provided rather than a platelet count due to platelet clumping. Other parameters associated with this sample are not affected by platelet clumping. If a more accurate platelet count is required, a redraw of the patient will be necessary. RBC Auto (Bld) [#/Vol]Ordere d By: Claudia Anderson on 04-13-2024 RBC (Bld) [#/Vol] 3.71 10*6/uL Low 4.2-5.4 [facility] Serum globulin measurementOr dered By: Claudia Anderson on 04-13-2024 Globulin (S) [Mass/Vol] 2.8 g/dL 2.2-4.2 [facility] Serum or plasma alanine dacosta otransferase (ALT) measurementOrdered By: Claudia Anderson on 04-13-2024 ALT [Catalytic activity/Vol] 11 U/L Low 13-56 [facility] Serum or plasma albumin moriah urement (mass/volume)Ordered By: Claudia Anderson on 04-13-2024 Albumin [Mass/Vol] 2.7 g/dL Low 3.2-5.0 [facility] Serum or plasma alkaline boo sphatase measurementOrdered By: Claudia Anderson on 04-13-2024 ALP [Catalytic activity/Vol] 93 U/L 45-117 [facility] Total proteinOrdered By: Po Anderson on 04-13-2024 Protein [Mass/Vol] 5.5 g/dL Low 6.4-8.2 [facility] Valproic Acid (Depakene) Lev coral 04-13-2024 VALPROIC ACID 45 ug/mL Low 50-100 [facility] Comment on above: Order Comment: - Performed By: #### L 500.3400, L100.0500 #### [facility] [address] [facility] [place], [place], [id number] White blood cell (WBC) count Ordered By: Claudia Anderson on 04-13-2024 WBC (Bld) [#/Vol] 5.5 10*3/uL 4.4-11.0 [facility] Thyroid Stim Hormone (TSH)on 02-17-2024 TSH 2.260 uIU/mL Normal 0.358-3.740 [facility] Comment on above: Order Comment: 214- Performed By: #### L 500.3400, L100.0500 #### [facility] [address] [place], [place], [id number] Neurology Visit Reporton Neurology Visit Report [facility] [address] [facility], [address] [place] [address] OFFICE VISIT Date of Service: 01/25/24 MR#: [id number] Acct: [id number] Name: CANDI AGUILAR Rep #: [id number] : 1950 Provider: Dr. Medardo hawkins MD Age/Sex: 73/F [place] [facility] [place] Status: Signed HPI HPI Chief Complaint: Supplemental Info Lumbar spine CT (04/15/2022): FINDINGS: VERTEBRAE: No fracture or traumatic subluxation. No discrete lytic or blastic abnormality observed. 2 mm anterolisthesis L4 on L5. DISCS and SPINAL CANAL: Moderate multilevel degenerative disc disease and spondylosis. No critical stenosis. VISUALIZED ABDOMEN: Visualized abdominal aorta is not dilated. There is no retroperitoneal adenopathy. Old left incompletely healed 12th posterior rib fracture. IMPRESSION: No evidence of acute lumbar spinal fracture. Old left incompletely healed 12th posterior rib fracture. Grade 1 anterolisthesis L4 on L5. Moderate multilevel degenerative disc disease and spondylosis. These images were reviewed on 07/01/2022. Lumbar MRI (08/04/2022): COMPARISON: CT April 15, 2022. 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 This is a normal anatomic variant. VERTEBRAE: Moderate wedge compression fracture T11 with moderate marrow edema subjacent to the superior endplate consistent with acute compression fracture. This area was not imaged on the prior study. VERTEBRAL ALIGNMENT: Grade 1 spondylolisthesis L4-5 stable without spondylolysis. Grade 1 retrolisthesis L1 on L2 stable. CORD: Normal position and signal intensity of the conus medullaris. L1/L2: Moderate disc desiccation and loss of disc space height, mild pseudobulging, mild bilateral facet arthropathy, moderate bilateral neural foraminal encroachment. L2/L3: Moderate disc desiccation, mild disc bulging, mild bilateral facet arthropathy, moderate bilateral neural foraminal encroachment. L3/L4: Moderate disc desiccation and loss of disc space height, mild disc bulging, mild bilateral facet arthropathy and ligamentous hypertrophy, moderate bilateral neural foraminal encroachment L4/L5: Moderate disc desiccation, moderate pseudobulge, moderate bilateral facet arthropathy and ligamentous hypertrophy, moderate central stenosis, moderate bilateral neural foraminal encroachment. L5/S1: Moderate disc desiccation, mild disc bulging, moderate bilateral facet arthropathy, moderate bilateral neural foraminal encroachment. Other than the wedge deformity discussed above which was not imaged on the prior study findings are stable. SOFT TISSUES: Unremarkable. IMPRESSION: Grade 1 retrolisthesis L1 on L2 and grade 1 spondylolisthesis L4-5 with pseudobulging at both of these levels. Mild disc bulging L2-L4 and L5-S1. Multilevel degenerative disc disease, central stenosis, facet arthropathy and neural foraminal encroachment as above. Moderate acute wedge compression fracture T11. These images were reviewed on 11/09/2022. A T11 moderate compression fracture is noted on lumbar x- rays from 02/01/2022. The currently visualized T11 fracture may be an acute on chronic compression fracture. Lumbar x-rays (05/27/23): COMPARISON: 12/02/2022. FINDINGS: VERTEBRAE: Chronic moderate T11 compression fracture. Lumbar vertebral body heights maintained. Degenerative changes of the posterior elements of the lower lumbar spine. ALIGNMENT: Chronic mild retrolisthesis of L1-2. INTERVERTEBRAL DISCS: Mild degenerative endplate changes with intervertebral disc space narrowing at L3-4, similar to prior. SOFT TISSUES: Moderate to large amount stool in the colon. IMPRESSION: No acute fracture or dislocation identified in the lumbar spine. Mild degenerative change. Office Procedures Neurology POC Injection: 1-2 Sites Details:: Procedure note: Bilateral lumbar paraspinal muscle trigger point injections The patient has had increased low back pain recently. Her last lumbar paraspinal muscle trigger point injections were of benefit with effectiveness lasting about 2 months. Written informed consent was obtained. Physical exam: Back: Tenderness is noted over the lumbar paraspinal muscles bilaterally The injection sites were prepped with alcohol swabs. Methylprednisolone 40 mg IM and bupivacaine 0.75% 5 mL IM were administered in the right lumbar paraspinal muscles. Methylprednisolone 40 mg IM and bupivacaine 0.75% 5 mL IM were administered in the left lumbar paraspinal muscles. The injection sites were bandaged. There were no complications. The patient tolerated the procedure well. One 80 mg vial of methylprednisolone was was used of which 80 mg was administered; no methylprednisolone was disposed. Office Meds methylprednisolone acetate 80 mg/mL suspension for injection Performing Provider: Medardo Mayo MD Performing Location: [facility] (more content not included)... Normal [facility] Thyroid Stim Hormone (TSH)on 01-17-2024 TSH 2.540 uIU/mL Normal 0.358-3.740 [facility] Comment on above: Order Comment: 214.1 Performed By: #### L 501.9520 #### [facility] [address] [place], [address] CBC-Complete Blood Cnt No Di ffon 01-12-2024 Erythrocyte distribution width (RBC) [Ratio] 13.0 % Normal 11.6-14.6 [facility] Comment on above: Order Comment: 214.1 Performed By: #### L 500.3400, L100.0500 #### [facility] [address] [place], [address] Hematocrit (Bld) [Volume fraction] 37.3 % Normal 37-47 [facility] Comment on above: Order Comment: 214.1 Performed By: #### L 500.3400, L100.0500 #### [facility] [address] [place], [address] Hemoglobin (Bld) [Mass/Vol] 11.5 g/dL Low 12.0-15.0 [facility] Comment on above: Order Comment: 214.1 Performed By: #### L 500.3400, L100.0500 #### [facility] [address] [place], [address] MCH (RBC) [Entitic mass] 32.5 pg High 27.0-32.0 [facility] Comment on above: Order Comment: 214.1 Performed By: #### L 500.3400, L100.0500 #### [facility] [address] [place], [address] MCHC (RBC) [Mass/Vol] 30.8 g/dL Low 32-36 [facility] Comment on above: Order Comment: 214.1 Performed By: #### L 500.3400, L100.0500 #### [facility] [address] [place], [address] MCV (RBC) [Entitic vol] 105.4 fL High 81-99 [facility] Comment on above: Order Comment: 214.1 Performed By: #### L 500.3400, L100.0500 #### [facility] [address] [place], [address] Platelet mean volume (Bld) [Entitic vol] 10.4 fL Normal 6.2-12.0 [facility] Comment on above: Order Comment: 214.1 Performed By: #### L 500.3400, L100.0500 #### [facility] [address] [place], [address] Platelets (Bld) [#/Vol] 239 10*3/uL Normal 150-450 [facility] Comment on above: Order Comment: 214.1 Performed By: #### L 500.3400, L100.0500 #### [facility] [address] [place], [address] RBC (Bld) [#/Vol] 3.54 10*6/uL Low 4.2-5.4 [facility] Comment on above: Order Comment: 214.1 Performed By: #### L 500.3400, L100.0500 #### [facility] [address] [place], [address] RDW SD 50.4 fl High 35.1-43.9 [facility] Comment on above: Order Comment: 214.1 Performed By: #### L 500.3400, L100.0500 #### [facility] [address] [place], [address] WBC (Bld) [#/Vol] 7.1 10*3/uL Normal 4.4-11.0 [facility] Comment on above: Order Comment: 214.1 Performed By: #### L 500.3400, L100.0500 #### [facility] [address] [place], [address] Liver Profileon 01-12-2024 Albumin [Mass/Vol] 2.9 g/dL Low 3.2-5.0 [facility] Comment on above: Order Comment: 214.1 Performed By: #### L 500.3400, L100.0500 #### [facility] [address] [place], [address] ALK P 72 U/L Normal 45-117 [facility] Comment on above: Order Comment: 214.1 Performed By: #### L 500.3400, L100.0500 #### [facility] [address] [place], [address] ALT [Catalytic activity/Vol] 10 U/L Low 13-56 [facility] Comment on above: Order Comment: 214.1 Performed By: #### L 500.3400, L100.0500 #### [facility] [address] [place], [address] AST [Catalytic activity/Vol] 12 U/L Low 15-37 [facility] Comment on above: Order Comment: 214.1 Performed By: #### L 500.3400, L100.0500 #### [facility] [address] [place], [address] Bilirubin [Mass/Vol] 0.20 mg/dL Normal 0.20-1.00 [facility] Comment on above: Order Comment: 214.1 Result Comment: For patients on eltrombopag therapy, use of Dimension [place] TBIL is not recommended. Performed By: #### L 500.3400, L100.0500 #### [facility] [address] [place], [address] Bilirubin.direct [Mass/Vol] 0.07 mg/dL Normal 0.00-0.30 [facility] Comment on above: Order Comment: 214.1 Performed By: #### L 500.3400, L100.0500 #### [facility] [address] [place], [address] Globulin (S) [Mass/Vol] 2.5 g/dL Normal 2.2-4.2 [facility] Comment on above: Order Comment: 214.1 Performed By: #### L 500.3400, L100.0500 #### [facility] [address] [place], [address] T PROT 5.4 g/dL Low 6.4-8.2 [facility] Comment on above: Order Comment: 214.1 Performed By: #### L 500.3400, L100.0500 #### [facility] [address] [place], [address] Valproic Acid (Depakene) Lev coral 01-12-2024 VALPROIC ACID 15 ug/mL Low 50-100 [facility] Comment on above: Order Comment: 214.1 Performed By: #### L 500.3400, L100.0500 #### [facility] [address] [place], [address] Upper Ext Joint Only(Routine )on 01-04-2024 Upper Ext Joint Only(Routine) [facility] Imaging Services [address] [place] [address] Upper Ext Joint Only(Routine) MR#: [id number] Acct: [id number] Name: CANDI AGUILAR ANN Rep #: [id number] : 1950 F 73 From: Mk López MD PCP: Claudia Anderson MD Status: REG CLI Study: Upper Ext Joint Only(Routine) Date of Exam: 1 Exam# [id number] Ordering Dr: True Rader MD [id number] STUDY: MRI RIGHT SHOULDER REASON FOR EXAM: Female, 73 years old. Pain. TECHNIQUE: Standardized fat and water weighted pulse sequences were obtained in all 3 orthogonal planes. COMPARISON: Right shoulder radiographs dated 02/28/2023. FINDINGS: There is a partial articular supraspinatus tendon avulsion (PASTA) lesion, measuring 1.7 cm in length (coronal T2 series 6 images 13-14). Normal infraspinatus tendon. Normal subscapularis tendon. Normal teres minor tendon. Normal supraspinatus muscle. Normal infraspinatus muscle. Normal subscapularis muscle. Normal teres minor muscle. Normal glenohumeral articulation. 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 Normal biceps labral complex. Normal intracapsular long biceps tendon. Normal labrum. Normal capsulo-ligamentous complex. Normal rotator interval. There is hypertrophic acromioclavicular arthrosis, with inferior osteophyte formation, with mild effacement of the supraspinatus myotendinous junction (coronal T2 series 6 images 13-14). There is a Type II morphology (curved), with a neutral orientation. There is no subacromial-subdeltoi d bursal fluid. Normal visualized coracohumeral and coracoacromial ligaments. Normal quadrilateral space. Normal axillary space. Normal deltoid muscle. Normal trapezius muscle. MRI/Upper Ext Joint Only(Routine) IMPRESSION: Partial articular supraspinatus tendon avulsion (PASTA) lesion, measuring 1.7 cm in length. 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 Hypertrophic acromioclavicular arthrosis, with inferior osteophyte formation, with mild effacement of the supraspinatus myotendinous junction. Electronically Signed: Mk López MD at 15:07 EDT Reading Location ID and State: [facility] / [place] , Service support , CC: Dr. True Rader MD; Claudia Anderson MD Hairspring Cutter: Signed Normal [facility] CBC-Complete Blood Cnt No Di ffon 12-12-2023 Erythrocyte distribution width (RBC) [Ratio] 13.3 % Normal 11.6-14.6 [facility] Comment on above: Order Comment: 214.1 Performed By: #### L 100.0500, L501.8100, L501.9520, L500.4050 #### [facility] [address] [place], [address] Hematocrit (Bld) [Volume fraction] 36.4 % Low 37-47 [facility] Comment on above: Order Comment: 214.1 Performed By: #### L 100.0500, L501.8100, L501.9520, L500.4050 #### [facility] [address] [place], [address] Hemoglobin (Bld) [Mass/Vol] 11.2 g/dL Low 12.0-15.0 [facility] Comment on above: Order Comment: 214.1 Performed By: #### L 100.0500, L501.8100, L501.9520, L500.4050 #### [facility] [address] [place], [address] MCH (RBC) [Entitic mass] 32.7 pg High 27.0-32.0 [facility] Comment on above: Order Comment: 214.1 Performed By: #### L 100.0500, L501.8100, L501.9520, L500.4050 #### [facility] [address] [place], [address] MCHC (RBC) [Mass/Vol] 30.8 g/dL Low 32-36 [facility] Comment on above: Order Comment: 214.1 Performed By: #### L 100.0500, L501.8100, L501.9520, L500.4050 #### [facility] [address] [place], [address] MCV (RBC) [Entitic vol] 106.4 fL High 81-99 [facility] Comment on above: Order Comment: 214.1 Performed By: #### L 100.0500, L501.8100, L501.9520, L500.4050 #### [facility] [address] [place], [address] Platelet mean volume (Bld) [Entitic vol] 10.3 fL Normal 6.2-12.0 [facility] Comment on above: Order Comment: 214.1 Performed By: #### L 100.0500, L501.8100, L501.9520, L500.4050 #### [facility] [address] [place], [address] Platelets (Bld) [#/Vol] 222 10*3/uL Normal 150-450 [facility] Comment on above: Order Comment: 214.1 Performed By: #### L 100.0500, L501.8100, L501.9520, L500.4050 #### [facility] [address] [place], [address] RBC (Bld) [#/Vol] 3.42 10*6/uL Low 4.2-5.4 [facility] Comment on above: Order Comment: 214.1 Performed By: #### L 100.0500, L501.8100, L501.9520, L500.4050 #### [facility] [address] [place], [address] RDW SD 51.8 fl High 35.1-43.9 [facility] Comment on above: Order Comment: 214.1 Performed By: #### L 100.0500, L501.8100, L501.9520, L500.4050 #### [facility] [address] [place], [address] WBC (Bld) [#/Vol] 6.5 10*3/uL Normal 4.4-11.0 [facility] Comment on above: Order Comment: 214.1 Performed By: #### L 100.0500, L501.8100, L501.9520, L500.4050 #### [facility] [address] [place], [address] Comprehensive Metabolic Prof ilon 12-12-2023 Albumin [Mass/Vol] 2.8 g/dL Low 3.2-5.0 [facility] Comment on above: Order Comment: 214.1 Performed By: #### L 100.0500, L501.8100, L501.9520, L500.4050 #### [facility] [address] [place], [address] Albumin/Globulin [Mass ratio] 1.0 {ratio} Normal 0.9-2.4 [facility] Comment on above: Order Comment: 214.1 Performed By: #### L 100.0500, L501.8100, L501.9520, L500.4050 #### [facility] [address] [place], [address] ALK P 84 U/L Normal 45-117 [facility] Comment on above: Order Comment: 214.1 Performed By: #### L 100.0500, L501.8100, L501.9520, L500.4050 #### [facility] [address] [place], [address] ALT [Catalytic activity/Vol] 13 U/L Normal 13-56 [facility] Comment on above: Order Comment: 214.1 Performed By: #### L 100.0500, L501.8100, L501.9520, L500.4050 #### [facility] [address] [place], [address] AST [Catalytic activity/Vol] 12 U/L Low 15-37 [facility] Comment on above: Order Comment: 214.1 Performed By: #### L 100.0500, L501.8100, L501.9520, L500.4050 #### [facility] [address] [place], [address] Bilirubin [Mass/Vol] 0.20 mg/dL Normal 0.20-1.00 [facility] Comment on above: Order Comment: 214.1 Result Comment: For patients on eltrombopag therapy, use of Dimension [place] TBIL is not recommended. Performed By: #### L 100.0500, L501.8100, L501.9520, L500.4050 #### [facility] [address] [place], [address] BUN/CRE 9.9 RATIO Low 10-20 [facility] Comment on above: Order Comment: 214.1 Performed By: #### L 100.0500, L501.8100, L501.9520, L500.4050 #### [facility] [address] [place], [address] CA,Total 8.7 mg/dL Normal 8.5-10.1 [facility] Comment on above: Order Comment: 214.1 Performed By: #### L 100.0500, L501.8100, L501.9520, L500.4050 #### [facility] [address] [place], [address] Chloride [Moles/Vol] 106 mmol/L Normal 98-107 [facility] Comment on above: Order Comment: 214.1 Performed By: #### L 100.0500, L501.8100, L501.9520, L500.4050 #### [facility] [address] [place], [address] CO2 [Moles/Vol] 28.0 mmol/L Normal 21.0-32.0 [facility] Comment on above: Order Comment: 214.1 Performed By: #### L 100.0500, L501.8100, L501.9520, L500.4050 #### [facility] [address] [place], [address] Creatinine [Mass/Vol] 0.80 mg/dL Normal 0.55-1.02 [facility] Comment on above: Order Comment: 214.1 Result Comment: The validity of the calculated GFR GFRAA in patients over 70 years has not been determined. Clinical correlation is essential. Performed By: #### L 100.0500, L501.8100, L501.9520, L500.4050 #### [facility] [address] [place], [address] EST GFR - AA 90 mL/min Normal >60 [facility] Comment on above: Order Comment: 214.1 Result Comment: Afri can Marshallese GFR Calc Performed By: #### L 100.0500, L501.8100, L501.9520, L500.4050 #### [facility] [address] [place], [address] GAP 7 Normal 5-15 [facility] Comment on above: Order Comment: 214.1 Performed By: #### L 100.0500, L501.8100, L501.9520, L500.4050 #### [facility] [address] [place], [address] GFR/1.73 sq M.predicted among non-blacks MDRD (S/P/Bld) [Vol rate/Area] 74 mL/min/{1.73_m2} Normal >60 [facility] Comment on above: Order Comment: 214.1 Result Comment: Non- GFR Calc Performed By: #### L 100.0500, L501.8100, L501.9520, L500.4050 #### [facility] [address] [place], [address] Globulin (S) [Mass/Vol] 2.7 g/dL Normal 2.2-4.2 [facility] Comment on above: Order Comment: 214.1 Performed By: #### L 100.0500, L501.8100, L501.9520, L500.4050 #### [facility] [address] [place], [address] Glucose [Mass/Vol] 80 mg/dL Normal 74-106 [facility] Comment on above: Order Comment: 214.1 Performed By: #### L 100.0500, L501.8100, L501.9520, L500.4050 #### [facility] [address] [place], [address] Potassium [Moles/Vol] 4.4 mmol/L Normal 3.5-5.1 [facility] Comment on above: Order Comment: 214.1 Performed By: #### L 100.0500, L501.8100, L501.9520, L500.4050 #### [facility] [address] [place], [address] Sodium [Moles/Vol] 141 mmol/L Normal 136-145 [facility] Comment on above: Order Comment: 214.1 Performed By: #### L 100.0500, L501.8100, L501.9520, L500.4050 #### [facility] [address] [place], [address] T PROT 5.5 g/dL Low 6.4-8.2 [facility] Comment on above: Order Comment: 214.1 Performed By: #### L 100.0500, L501.8100, L501.9520, L500.4050 #### [facility] [address] [place], [address] Urea nitrogen [Mass/Vol] 8 mg/dL Normal 7-18 [facility] Comment on above: Order Comment: 214.1 Performed By: #### L 100.0500, L501.8100, L501.9520, L500.4050 #### [facility] [address] [place], [address] Thyroid Stim Hormone (TSH)on 12-12-2023 TSH 1.920 uIU/mL Normal 0.358-3.740 [facility] Comment on above: Order Comment: 214.1 Performed By: #### L 100.0500, L501.8100, L501.9520, L500.4050 #### [facility] [address] [place], [address] Valproic Acid (Depakene) Lev coral 12-12-2023 VALPROIC ACID 8 ug/mL Low 50-100 [facility] Comment on above: Order Comment: 214.1 Performed By: #### L 100.0500, L501.8100, L501.9520, L500.4050 #### [facility] [address] [place], [address] Orthopedic Visit Reporton Orthopedic Visit Report [facility] [address] [place] [address] [address] [place] [address] OFFICE VISIT Date of Service: 11/17/23 MR#: [id number] Acct: [id number] Name: JEFFJT Rep #: [id number] : 1950 Provider: Dr. True subramanian MD Age/Sex: 73/F [place] [facility] [place] Status: Signed with Addenda ADDENDUM by Sanam Harris on 11/17/23 at 1121 Office Procedure Documentation entered by Sanam Harris 11/17/23 11:21: Ortho Injections Injections Yes Subacromial Injection Right Is this a patient provided medication?: No Details: Obtained consent for injection. Under sterile conditions, injected the patients right shoulder with 2cc Kenalog 4cc bupivacaine. The patient tolerated the injection well without any noted complication. Patient should call our office if redness develops, pain worsens or if they have any concerns. Office Meds Kenalog 40 mg/mL suspension for injection Performing Provider: True Rader MD Performing Location: [facility] Administered by: True Rader MD on 11/17/23 11:19 Dose Route Admin Location Dispensed Lot Number Expiration Date [place] Man ufacturer 80 mg intra-articular right shoulder 2 mL [id number] 06/19/25 7946-2771-27 [facility] Comments: Bupivacaine 0.25% 4cc lot : [id number] exp : 05/19/24 ND : 9107-6421-16 Date cc: * Signed Intake Vital Signs 11/03/23 15:11 Height 5 ft Weight: 109 lb 3 oz BMI 21.3 BP 124/70 H Blood Pressure Location Lt brachial Position Sitting Respiration 17 Pulse 65 Pulse Source Monitor Temp 97.8 F Temp Source Temporal Pulse Oximetry (%) 98 Oxygen Delivery Method room air Intake Visit Reasons: RIGHT SHOULDER Chief Complaint: Accompanied by: Self Is patient in pain?: Yes Pain scale (1-10): 6 Allergies codeine Allergy (Severe, Verified 11/17/23 10:25) Upset Stomach Medications ???Medication ???Instructions ???Recorded ???Confirmed ???Type aspirin 81 mg tablet,delayed 81 mg PO DAILY HEART HEALTH 01/18/22 11/17/23 History release atorvastatin 10 mg tablet 10 mg PO QHS CHOLESTEROL 01/18/22 11/17/23 History donepezil 10 mg tablet 10 mg PO QHS ALZHEIMERS 01/18/22 11/17/23 History oxybutynin chloride 10 mg 10 mg PO BID BLADDER DYSFUNCTION 01/18/22 11/17/23 History tablet,extended release 24 hr primidone 50 mg tablet 150 mg PO BID TREMORS 01/18/22 11/17/23 History propranolol 20 mg tablet 20 mg PO BID HYPERTENSION 01/18/22 11/17/23 History sennosides 8.6 mg-docusate sodium 1 tab PO BID PRN CONSTIPATION 01/18/22 11/17/23 History 50 mg tablet (Senna Plus) venlafaxine 150 mg 150 mg PO DAILY ANXIETY 01/18/22 11/17/23 History capsule,extended release 24 hr (Effexor XR) venlafaxine 75 mg capsule,extended 75 mg PO DAILY ANXIETY 01/18/22 11/17/23 History release 24 hr (Effexor XR) docusate sodium 100 mg capsule 100 mg PO DAILY PRN constipation 07/01/22 11/17/23 History gabapentin 300 mg capsule 300 mg PO BID 07/01/22 11/17/23 History guaifenesin 100 mg/5 mL oral liquid 200 mg PO Q4H PRN Cough 07/01/22 11/17/23 History levothyroxine 50 mcg capsule 50 mcg PO DAILY 07/01/22 11/17/23 History memantine 10 mg tablet 10 mg PO BID ALZHEIMERS 07/01/22 11/17/23 History omeprazole 20 mg capsule,delayed 20 mg PO DAILY 07/01/22 11/17/23 History release trazodone 150 mg tablet 150 mg PO QHS INSOMNIA 07/01/22 11/17/23 History buspirone 5 mg tablet 7.5 mg PO TID 09/09/22 11/17/23 History loratadine 10 mg capsule 10 mg PO DAILY 09/09/22 11/17/23 History dibucaine 1 % rectal ointment 1 applic [place] TID PRN hemorrhoids 09/28/22 11/17/23 Rx #56 grams flurbiprofen 100 mg tablet 100 mg PO TID 11/09/22 11/17/23 History acetaminophen 325 mg capsule 325 mg PO Q4H PRN fever or pain 02/28/23 11/17/23 History escitalopram oxalate 5 mg tablet 15 mg PO DAILY 02/28/23 11/17/23 History (Lexapro) melatonin 10 mg capsule 10 mg PO HS 02/28/23 11/17/23 History Have you fallen in the past year?: Yes [facility] History Left shoulder pain Hx of hemorrhoids Bladder disease Lives in care home Bipolar disorder Thyroid disease Insomnia Arthritis Back pain Essential tremor Chronic constipation Gastric reflux Non-smoker Dementia High cholesterol Asthma Anxiety Alzheimer's dementia Surgical History History of hysterectomy Family History Father CVA (cerebral vascular accident) Father No problems noted. Grandfather CVA (cerebral vascular accident) Social History current occupation (more content not included)... Normal [facility] Ammoniaon 11-08-2023 Ammonia (P) [Mass/Vol] ug/dL Low [facility] Comment on above: Order Comment: 214.1 Performed By: #### L 500.3400, L100.0500 #### [facility] [address] [place], [place], [address] Folates, (Folic Acid)on 10-20 FOLATES 2.60 ng/mL Low 3.1-55.4 [facility] Comment on above: Order Comment: 214.1 N Performed By: #### L 500.3400, L100.0500 #### [facility] [address] [place], [address] Ammoniaon 11-03-2023 Ammonia (P) [Moles/Vol] 26.0 umol/L Normal [facility] Comment on above: Performed By: #### L 500.3400, L100.0500 #### [facility] [address] [place], [place], [address] Neurology Visit Reporton Neurology Visit Report [facility] [address], [address] [place], [place] [address] OFFICE VISIT Date of Service: 11/03/23 MR#: [id number] Acct: [id number] Name: CANDI AGUILAR Rep #: [id number] : 1950 Provider: Dr. Medardo hawkins MD Age/Sex: 73/F [place] [facility] [facility] [place] Status: Signed HPI [facility] Chief Complaint: Details: Interim History: Candi returns for follow-up visit. She has a history of hyperlipidemia, essential tremor, vitamin D deficiency, dementia, depression, anxiety and bipolar disorder. She resides in a intermediate facility and information presently available is limited. She apparently began to have memory difficulty since at least 2012 and this worsened over time including further worsening within recent months according to the patient. She has a tendency to forget conversations. She had difficulty managing her own finances. She had poor recall of past events. Around 2020, she moved from home to an assisted living arrangement. She had multiple falls and in January 2022 was admitted to a intermediate facility. Her anxiety and other psychiatric conditions have been prominent. She is prescribed risperidone, venlafaxine, trazodone and clonazepam. She takes donepezil and memantine for her dementia. She presents to the office alone today. Divalproex DR prescribed for mood stabilization was reduced to 125 mg daily earlier in 2023. She has used a rollator since 2019. Physical therapy in the past was of some benefit except for her back pain. She has chronic low back pain and bilateral lower extremity radicular pain (left g reater than right) and reports that her low back pain is now prominent. Lumbar paraspinal muscle trigger point injections have been of benefit. She also has left knee and left hip pain. She also has chronic neck pain. She has severe right shoulder pain that has been present since at least June 2022. He movement of the right shoulder is limited. She had a right shoulder joint injection earlier in 2023 but does not recall noting any benefit from this. Naproxen was of only modest benefit for her pain. Ibuprofen has not been of benefit. She denied having numbness, lightheadedness or vertigo. She has chronic bilateral hearing loss. She has chronic bilateral blurring of vision. She had bilateral cataract surgeries in the past. She has had a tremor in the hands for many years. She has a tendency to drop objects. Primidone is of some benefit for her tremor however her tremor has recently worsened. Her tremor has continued to interfere with activities such as handwriting and holding a cup. Mini-Mental status exam score in June 2022 was 15/30 and 19/30 in October 2022. Laboratory studies from July 2022 reveal a low folate level and elevated ammonia level. Folate supplementation was initiated. Lactulose was initiated. Her last ammonia level (November 2022) was normal. Her lumbar MRI from July 2022 reveals an acute T11 moderate compression fracture. Physical Exam: Neuro: The patient is awake; she has bradyphrenic; speech is slow; basic conversational language function is preserved; she is disoriented to day of the week; she is unable to spell world backwards; she is unable to subtract 7 from 100 Back: Lumbar and lower thoracic paraspinal muscle tenderness is noted Supplemental Info Lumbar spine x-rays (02/01/2022): FINDINGS: VERTEBRAE:??? Slight anterior subluxation of L4 and L5.??? Diffuse [id number] spondylitic changes.??? Bilateral multilevel vertebral facet arthropathy in the lower lumbar spine.??? Old compression fracture T11. Preservation of the normal lumbar lordosis. DISC SPACES:??? No acute findings.??? Disc spaces are maintained. GASTROINTESTINAL TRACT:??? Unremarkable as visualized.??? Included bowel gas pattern is non-obstructive. IMPRESSION: 1.??? Degenerative changes.??? No acute fractures or subluxations. 2.??? Old compression fracture T11. These images were reviewed on 07/01/2022. Magnesium, vitamin D (02/16/2022): Normal. Lamotrigine level (03/11/2022): 3 (in therapeutic range) CMP, urinalysis (04/15/2022): BUN 24 (high), BUN/creatinine ratio 28.1 (high) Urine culture (04/15/2022): No growth. EKG (04/15/2022): Sinus bradycardia, ventricular rate 59 bpm. Otherwise normal EKG. Thoracic spine CT (04/15/2022): FINDINGS: VERTEBRAE: Acute on chronic severe compression deformity of T11. Minimal retropulsion of bony fragments.No discrete lytic or blastic abnormality observed. VERTEBRAL ALIGNMENT: Unremarkable. There is exaggeration of the normal thoracic kyphosis. DISCS: Moderate multilevel degenerative disc disease and spondylosis.. VISUALIZED THORAX: Visualized thoracic aorta is nondilated. Peripheral based clustered nodular opacities with surrounding groundglass opacity in the bilateral lower lobes. IMPRESSION: Acute on chronic severe compression deformity of T11. Minimal retropul (more content not included)... Normal [facility] CBC-Complete Blood Cnt No Di ffon 10-12-2023 Erythrocyte distribution width (RBC) [Ratio] 12.7 % Normal 11.6-14.6 [facility] Comment on above: Order Comment: 214.1 Performed By: #### L 500.3400, L100.0500 #### [facility] [address] [place], [address] Hematocrit (Bld) [Volume fraction] 37.6 % Normal 37-47 [facility] Comment on above: Order Comment: 214.1 Performed By: #### L 500.3400, L100.0500 #### [facility] [address] [place], [address] Hemoglobin (Bld) [Mass/Vol] 11.8 g/dL Low 12.0-15.0 [facility] Comment on above: Order Comment: 214.1 Performed By: #### L 500.3400, L100.0500 #### [facility] [address] [place], [address] MCH (RBC) [Entitic mass] 32.6 pg High 27.0-32.0 [facility] Comment on above: Order Comment: 214.1 Performed By: #### L 500.3400, L100.0500 #### [facility] [address] [place], [address] MCHC (RBC) [Mass/Vol] 31.4 g/dL Low 32-36 [facility] Comment on above: Order Comment: 214.1 Performed By: #### L 500.3400, L100.0500 #### [facility] [address] [place], [address] MCV (RBC) [Entitic vol] 103.9 fL High 81-99 [facility] Comment on above: Order Comment: 214.1 Performed By: #### L 500.3400, L100.0500 #### [facility] [address] [place], [address] Platelet mean volume (Bld) [Entitic vol] 10.3 fL Normal 6.2-12.0 [facility] Comment on above: Order Comment: 214.1 Performed By: #### L 500.3400, L100.0500 #### [facility] [address] [place], [address] Platelets (Bld) [#/Vol] 243 10*3/uL Normal 150-450 [facility] Comment on above: Order Comment: 214.1 Performed By: #### L 500.3400, L100.0500 #### [facility] [address] [place], [address] RBC (Bld) [#/Vol] 3.62 10*6/uL Low 4.2-5.4 [facility] Comment on above: Order Comment: 214.1 Performed By: #### L 500.3400, L100.0500 #### [facility] [address] [place], [address] RDW SD 48.7 fl High 35.1-43.9 [facility] Comment on above: Order Comment: 214.1 Performed By: #### L 500.3400, L100.0500 #### [facility] [address] [place], [address] WBC (Bld) [#/Vol] 5.2 10*3/uL Normal 4.4-11.0 [facility] Comment on above: Order Comment: 214.1 Performed By: #### L 500.3400, L100.0500 #### [facility] [address] [place], [address] Lipid Profileon 10-12-2023 Cholesterol [Mass/Vol] 159 mg/dL Normal 200 [facility] Comment on above: Order Comment: 214.1 Result Comment: <200 mg/dL Desirable 200-240 mg/dL Borderline >240 mg/dL High Risk Performed By: #### L 500.3400, L100.0500 #### [facility] [address] [place], [address] Cholesterol in HDL [Mass/Vol] 57 mg/dL Normal [facility] Comment on above: Order Comment: 214.1 Result Comment: The drugs N-Acetylcysteine and Metamizole may falsely depress this assay. Reference Range HDL <40 mg/dL Low HDL Cholesterol HDL >or= 60 mg/dL High HDL Cholesterol Performed By: #### L 500.3400, L100.0500 #### [facility] [address] [place], [address] Cholesterol in LDL [Mass/Vol] 66 mg/dL Normal 0-130 [facility] Comment on above: Order Comment: 214.1 Performed By: #### L 500.3400, L100.0500 #### [facility] [address] [place], [address] Cholesterol in VLDL [Mass/Vol] 36 mg/dL Normal 5-40 [facility] Comment on above: Order Comment: 214.1 Performed By: #### L 500.3400, L100.0500 #### [facility] [address] [place], [address] Triglyceride [Mass/Vol] 181 mg/dL Normal [facility] Comment on above: Order Comment: 214.1 Result Comment: The drugs N-Acetylcysteine and Metamizole may falsely depress this assay. Serum Triglycerides Reference Interval Normal <150 mg/dL Borderline high 150 - 199 mg/dL High 200 - 499 mg/dL Very High > or = 500 mg/dL Performed By: #### L 500.3400, L100.0500 #### [facility] [address] [place], [address] Valproic Acid (Depakene) Lev coral 10-12-2023 VALPROIC ACID 14 ug/mL Low 50-100 [facility] Comment on above: Order Comment: 214.1 Performed By: #### L 500.3400, L100.0500 #### [facility] [address] [place], [address] Absolute lymphocyte countOrd ered By: Claudia Anderson on 07-18-2023 Lymphocytes Auto (Unsp spec) [#/Vol] 4.10 10*3/uL 0.83-4.51 [facility] Automated lymphocyte count a s percentage of total leukocytesOrdered By: Claudia Anderson on 07-18-2023 Lymphocytes/100 WBC Auto (Unsp spec) 45.5 % 19-41 [facility] Basophil percentageOrdered B y: Claudia Anderson on 07-18-2023 Basophils/100 WBC (Bld) 0.4 % 0-1 [facility] Eosinophils/100 WBC (Bld) 2.3 % 0-5 [facility] Hemoglobin (Bld) [Mass/Vol] 11.6 g/dL 12.0-15.0 [facility] Monocytes/100 WBC (Bld) 8.2 % 0-10 [facility] Neutrophils (Bld) [#/Vol] 3.9 10*3/uL 2.0-7.7 [facility] Neutrophils/100 WBC (Bld) 42.9 % 47-70 [facility] WBC (Bld) [#/Vol] 9.0 10*3/uL 4.4-11.0 [facility] Determination of erythrocyte mean corpuscular volume (MCV)Ordered By: Claudia Anderson on 07-18-2023 MCV (RBC) [Entitic vol] 106.1 fL 81-99 [facility] Erythrocyte distribution wid th ratioOrdered By: Claudia Anderson on 07-18-2023 Erythrocyte distribution width (RBC) [Ratio] 12.8 % 11.6-14.6 [facility] Erythrocyte distribution wid th standard deviationOrdered By: Claudia Anderson on 07-18-2023 Erythrocyte distribution width (RBC) [Entitic vol] 50.5 fL 35.1-43.9 [facility] Hematocrit Auto (Bld) [Volum e fraction]Ordered By: Claudia Anderson on 07-18-2023 Hematocrit (Bld) [Volume fraction] 36.3 % 37-47 [facility] Immature granulocytes/100 WB C Auto (Bld)Ordered By: Claudia Anderson on 07-18-2023 Immature granulocytes/100 WBC (Bld) 0.700 % 0.0-0.9 [facility] Comment on above: IG% - Immature Granu locytes (promyelocytes, myelocytes and metamyelocytes) > 1% indicates that a LEFT SHIFT is Present. Laboratory - Hematology and Cell countsOrdered By: Claudia Anderson on 07-18-2023 MCH (RBC) [Entitic mass] 33.9 pg 27.0-32.0 [facility] MCHC (RBC) [Mass/Vol] 32.0 g/dL 32-36 [facility] Nucleated RBC/100 WBC (Bld) [Ratio] 0 % 0-5 [facility] Platelet mean volume (Bld) [Entitic vol] 10.4 fL 6.2-12.0 [facility] Platelets (Bld) [#/Vol] 243 10*3/uL 150-450 [facility] RBC Auto (Bld) [#/Vol]Ordere d By: Claudia Anderson on 07-18-2023 RBC (Bld) [#/Vol] 3.42 10*6/uL 4.2-5.4 [facility] Basophil percentageOrdered B y: Claudia Anderson on 07-13-2023 Bilirubin [Mass/Vol] 0.20 mg/dL 0.20-1.00 [facility] Comment on above: For patients on eltr ombopag therapy, use of Dimension [place] TBIL is not recommended. Hemoglobin (Bld) [Mass/Vol] 12.2 g/dL 12.0-15.0 [facility] Protein [Mass/Vol] 6.3 g/dL 6.4-8.2 [facility] WBC (Bld) [#/Vol] 12.9 10*3/uL 4.4-11.0 [facility] Determination of erythrocyte mean corpuscular volume (MCV)Ordered By: Claudia Anderson on 07-13-2023 MCV (RBC) [Entitic vol] 106.7 fL 81-99 [facility] Direct bilirubinOrdered By: Claudia Anderson on 07-13-2023 Bilirubin.direct [Mass/Vol] 0.07 mg/dL 0.00-0.30 [facility] Erythrocyte distribution wid th ratioOrdered By: Claudia Anderson on 07-13-2023 Erythrocyte distribution width (RBC) [Ratio] 12.6 % 11.6-14.6 [facility] Erythrocyte distribution wid th standard deviationOrdered By: Claudia Anderson on 07-13-2023 Erythrocyte distribution width (RBC) [Entitic vol] 49.8 fL 35.1-43.9 [facility] Hematocrit Auto (Bld) [Volum e fraction]Ordered By: Claudia Anderson on 07-13-2023 Hematocrit (Bld) [Volume fraction] 38.0 % 37-47 [facility] - Chemistry and C hemistry - challengeOrdered By: Claudia Anderson on 07-13-2023 ALP [Catalytic activity/Vol] 95 U/L 45-117 [facility] ALT [Catalytic activity/Vol] 16 U/L 13-56 [facility] Globulin (S) [Mass/Vol] 3.3 g/dL 2.2-4.2 [facility] - Hematology and Cell countsOrdered By: Claudia Anderson on 07-13-2023 MCH (RBC) [Entitic mass] 34.3 pg 27.0-32.0 [facility] MCHC (RBC) [Mass/Vol] 32.1 g/dL 32-36 [facility] Platelet mean volume (Bld) [Entitic vol] 10.6 fL 6.2-12.0 [facility] Platelets (Bld) [#/Vol] 260 10*3/uL 150-450 [facility] No Panel InformationOrdered By: Claudia Anderson on 07-13-2023 Valproic Acid (Depakene) Level 30 ug/mL 50-100 [facility] RBC Auto (Bld) [#/Vol]Ordere d By: Claudia Anderson on 07-13-2023 RBC (Bld) [#/Vol] 3.56 10*6/uL 4.2-5.4 [facility] Thin prep Papanicolaou smear with manual screeningOrdered By: Claudia Anderson on 07-13-2023 Thin prep Papanicolaou smear with manual screening 3.0 g/dL 3.2-5.0 [facility] Thin prep Papanicolaou smear with manual screening 11 U/L 15-37 [facility] Basophil percentageOrdered B y: Claudia Anderson on 06-13-2023 Chloride [Moles/Vol] 104 mmol/L 98-107 [facility] Glucose [Mass/Vol] 72 mg/dL 74-106 [facility] Hemoglobin (Bld) [Mass/Vol] 11.1 g/dL 12.0-15.0 [facility] Potassium [Moles/Vol] 4.4 mmol/L 3.5-5.1 [facility] Sodium [Moles/Vol] 139 mmol/L 136-145 [facility] WBC (Bld) [#/Vol] 5.9 10*3/uL 4.4-11.0 [facility] Determination of erythrocyte mean corpuscular volume (MCV)Ordered By: Claudia Anderson on 06-13-2023 MCV (RBC) [Entitic vol] 108.0 fL 81-99 [facility] Erythrocyte distribution wid th ratioOrdered By: Claudia Anderson on 06-13-2023 Erythrocyte distribution width (RBC) [Ratio] 13.6 % 11.6-14.6 [facility] Erythrocyte distribution wid th standard deviationOrdered By: Claudia Anderson on 06-13-2023 Erythrocyte distribution width (RBC) [Entitic vol] 54.8 fL 35.1-43.9 [facility] Hematocrit Auto (Bld) [Volum e fraction]Ordered By: Claudia Anderson on 06-13-2023 Hematocrit (Bld) [Volume fraction] 35.0 % 37-47 [facility] - Chemistry and C hemistry - challengeOrdered By: Claudia Anderson on 06-13-2023 CO2 [Moles/Vol] 31.0 mmol/L 21.0-32.0 [facility] Urea nitrogen/Creatinine [Mass ratio] 12.9 mg/mg 10-20 [facility] - Hematology and Cell countsOrdered By: Claudia Anderson on 06-13-2023 MCH (RBC) [Entitic mass] 34.3 pg 27.0-32.0 [facility] MCHC (RBC) [Mass/Vol] 31.7 g/dL 32-36 [facility] Platelet mean volume (Bld) [Entitic vol] 10.4 fL 6.2-12.0 [facility] Platelets (Bld) [#/Vol] 219 10*3/uL 150-450 [facility] No Panel InformationOrdered By: Claudia Anderson on 06-13-2023 Estimated GFR (MDRD) Amer 94 mL/min >60 [facility] Comment on above: GFR Calc Estimated GFR (MDRD) Non-Af Amer 78 mL/min >60 [facility] Comment on above: Non- GFR Calc RBC Auto (Bld) [#/Vol]Ordere d By: Claudia Anderson on 06-13-2023 RBC (Bld) [#/Vol] 3.24 10*6/uL 4.2-5.4 [facility] Serum or plasma calcium moriah urement (mass/volume)Ordered By: Claudia Anderson on 06-13-2023 Calcium [Mass/Vol] 8.5 mg/dL 8.5-10.1 [facility] Serum or plasma creatinine m easurement (mass/volume)Ordered By: Claudia Anderson on 06-13-2023 Creatinine [Mass/Vol] 0.77 mg/dL 0.55-1.02 [facility] Comment on above: The validity of the calculated GFR & GFRAA in patients over 70 years has not been determined. Clinical correlation is essential. Serum or plasma urea nitroge n measurement (mass/volume)Ordered By: Claudia Anderson on 06-13-2023 Urea nitrogen [Mass/Vol] 10 mg/dL 7-18 [facility] Thin prep Papanicolaou smear with manual screeningOrdered By: Claudia Anderson on 06-13-2023 Thin prep Papanicolaou smear with manual screening 4 5-15 [facility] Basophil percentageOrdered B y: Claudia Anderson on 05-30-2023 Chloride [Moles/Vol] 108 mmol/L 98-107 [facility] Glucose [Mass/Vol] 75 mg/dL 74-106 [facility] Potassium [Moles/Vol] 4.9 mmol/L 3.5-5.1 [facility] Sodium [Moles/Vol] 144 mmol/L 136-145 [facility] Laboratory - Chemistry and C hemistry - challengeOrdered By: Claudia Anderson on 05-30-2023 CO2 [Moles/Vol] 34.0 mmol/L 21.0-32.0 [facility] Urea nitrogen/Creatinine [Mass ratio] 10.9 mg/mg 10-20 [facility] No Panel InformationOrdered By: Claudia Anderson on 05-30-2023 Estimated GFR (MDRD) Amer 87 mL/min >60 [facility] Comment on above: GFR Calc Estimated GFR (MDRD) Non-Af Amer 72 mL/min >60 [facility] Comment on above: Non- GFR Calc Serum or plasma calcium moriah urement (mass/volume)Ordered By: Claduia Anderson on 05-30-2023 Calcium [Mass/Vol] 8.5 mg/dL 8.5-10.1 [facility] Serum or plasma creatinine m easurement (mass/volume)Ordered By: Claudia Anderson on 05-30-2023 Creatinine [Mass/Vol] 0.83 mg/dL 0.55-1.02 [facility] Comment on above: The validity of the calculated GFR & GFRAA in patients over 70 years has not been determined. Clinical correlation is essential. Serum or plasma thyroid stim ulating hormone (TSH) measurement (units/volume)Ordered By: Claudia Anderson on 05-30-2023 TSH Qn 2.71 uIU/mL 0.358-3.74 [facility] Serum or plasma urea nitroge n measurement (mass/volume)Ordered By: Claudia Anderson on 05-30-2023 Urea nitrogen [Mass/Vol] 9 mg/dL 7-18 [facility] Thin prep Papanicolaou smear with manual screeningOrdered By: Claudia Anderson on 05-30-2023 Thin prep Papanicolaou smear with manual screening 2 5-15 [facility] Basophil percentageOrdered B y: Claudia Anderson on 04-13-2023 Bilirubin [Mass/Vol] 0.20 mg/dL 0.20-1.00 [facility] Comment on above: For patients on eltr ombopag therapy, use of Dimension [place] TBIL is not recommended. Hemoglobin (Bld) [Mass/Vol] 11.1 g/dL 12.0-15.0 [facility] Protein [Mass/Vol] 5.6 g/dL 6.4-8.2 [facility] WBC (Bld) [#/Vol] 6.6 10*3/uL 4.4-11.0 [facility] Determination of erythrocyte mean corpuscular volume (MCV)Ordered By: Claudia Anderson on 04-13-2023 MCV (RBC) [Entitic vol] 107.7 fL 81-99 [facility] Direct bilirubinOrdered By: Claudia Anderson on 04-13-2023 Bilirubin.direct [Mass/Vol] mg/dL 0.00-0.30 [facility] Erythrocyte distribution wid th ratioOrdered By: Claudia Anderson on 04-13-2023 Erythrocyte distribution width (RBC) [Ratio] 13.4 % 11.6-14.6 [facility] Erythrocyte distribution wid th standard deviationOrdered By: Claudia Anderson on 04-13-2023 Erythrocyte distribution width (RBC) [Entitic vol] 53.7 fL 35.1-43.9 [facility] Hematocrit Auto (Bld) [Volum e fraction]Ordered By: Claudia Anderson on 04-13-2023 Hematocrit (Bld) [Volume fraction] 36.3 % 37-47 [facility] - Chemistry and C hemistry - challengeOrdered By: Claudia Anderson on 04-13-2023 ALP [Catalytic activity/Vol] 74 U/L 45-117 [facility] ALT [Catalytic activity/Vol] 10 U/L 13-56 [facility] Globulin (S) [Mass/Vol] 3.0 g/dL 2.2-4.2 [facility] - Hematology and Cell countsOrdered By: Claudia Anderson on 04-13-2023 MCH (RBC) [Entitic mass] 32.9 pg 27.0-32.0 [facility] MCHC (RBC) [Mass/Vol] 30.6 g/dL 32-36 [facility] Platelets (Bld) [#/Vol] 197 10*3/uL 150-450 [facility] No Panel InformationOrdered By: Claudia Anderson on 04-13-2023 Valproic Acid (Depakene) Level 52 ug/mL 50-100 [facility] Platelet mean volume Christiano-Ec ker (Bld) [Entitic vol]Ordered By: Claudia Anderson on 04-13-2023 Platelet mean volume (Bld) [Entitic vol] 10.4 fL 6.2-12.0 [facility] RBC Auto (Bld) [#/Vol]Ordere d By: Claudia Anderson on 04-13-2023 RBC (Bld) [#/Vol] 3.37 10*6/uL 4.2-5.4 [facility] Thin prep Papanicolaou smear with manual screeningOrdered By: Claudia Anderson on 04-13-2023 Thin prep Papanicolaou smear with manual screening 2.6 g/dL 3.2-5.0 [facility] Thin prep Papanicolaou smear with manual screening 10 U/L 15-37 [facility] Basophil percentageOrdered B y: Claudia Anderson on 01-25-2023 Bilirubin [Mass/Vol] 0.30 mg/dL 0.20-1.00 [facility] Comment on above: For patients on eltr ombopag therapy, use of Dimension [place] TBIL is not recommended. Chloride [Moles/Vol] 105 mmol/L 98-107 [facility] Glucose [Mass/Vol] 90 mg/dL 74-106 [facility] Potassium [Moles/Vol] 4.5 mmol/L 3.5-5.1 [facility] Protein [Mass/Vol] 6.2 g/dL 6.4-8.2 [facility] Sodium [Moles/Vol] 140 mmol/L 136-145 [facility] Laboratory - Chemistry and C hemistry - challengeOrdered By: Claudia Anderson on 01-25-2023 ALP [Catalytic activity/Vol] 75 U/L 45-117 [facility] ALT [Catalytic activity/Vol] 8 U/L 13-56 [facility] CO2 [Moles/Vol] 32.0 mmol/L 21.0-32.0 [facility] Globulin (S) [Mass/Vol] 3.4 g/dL 2.2-4.2 [facility] Urea nitrogen/Creatinine [Mass ratio] 13.9 mg/mg 10-20 [facility] No Panel InformationOrdered By: Claudia Anderson on 01-25-2023 Estimated GFR (MDRD) Amer 92 mL/min >60 [facility] Comment on above: GFR Calc Estimated GFR (MDRD) Non-Af Amer 76 mL/min >60 [facility] Comment on above: Non- GFR Calc Serum or plasma albumin moriah urement (mass/volume)Ordered By: Claudia Anderson on 01-25-2023 Albumin [Mass/Vol] 2.8 g/dL 3.2-5.0 [facility] Serum or plasma albumin/glob ulin mass ratioOrdered By: Claudia Anderson on 01-25-2023 Albumin/Globulin [Mass ratio] 0.8 {ratio} 0.9-2.4 [facility] Serum or plasma calcium moriah urement (mass/volume)Ordered By: Claudia Anderson on 01-25-2023 Calcium [Mass/Vol] 8.6 mg/dL 8.5-10.1 [facility] Serum or plasma creatinine m easurement (mass/volume)Ordered By: Claudia Anderson on 01-25-2023 Creatinine [Mass/Vol] 0.79 mg/dL 0.55-1.02 [facility] Comment on above: The validity of the calculated GFR & GFRAA in patients over 70 years has not been determined. Clinical correlation is essential. Serum or plasma urea nitroge n measurement (mass/volume)Ordered By: Claudia Anderson on 01-25-2023 Urea nitrogen [Mass/Vol] 11 mg/dL 7-18 [facility] Thin prep Papanicolaou smear with manual screeningOrdered By: Claudia Anderson on 01-25-2023 Thin prep Papanicolaou smear with manual screening 10 U/L 15-37 [facility] Thin prep Papanicolaou smear with manual screening 3 5-15 [facility] Basophil percentageOrdered B y: Claudia Anderson on 01-11-2023 Bilirubin [Mass/Vol] 0.20 mg/dL 0.20-1.00 [facility] Comment on above: For patients on eltr ombopag therapy, use of Dimension [place] TBIL is not recommended. Protein [Mass/Vol] 5.6 g/dL 6.4-8.2 [facility] WBC (Bld) [#/Vol] 5.7 10*3/uL 4.4-11.0 [facility] Blood erythrocytes count (nu mber/volume)Ordered By: Claudia Anderson on 01-11-2023 RBC (Bld) [#/Vol] 3.43 10*6/uL 4.2-5.4 [facility] Blood hemoglobin measurement (mass/volume)Ordered By: Claudia Anderson on 01-11-2023 Hemoglobin (Bld) [Mass/Vol] 11.3 g/dL 12.0-15.0 [facility] Blood platelet mean volumeOr dered By: Claudia Anderson on 01-11-2023 Platelet mean volume (Bld) [Entitic vol] 9.8 fL 6.2-12.0 [facility] Determination of erythrocyte mean corpuscular volume (MCV)Ordered By: Claudia Anderson on 01-11-2023 MCV (RBC) [Entitic vol] 103.8 fL 81-99 [facility] Direct bilirubinOrdered By: Claudia Anderson on 01-11-2023 Bilirubin.direct [Mass/Vol] mg/dL 0.00-0.30 [facility] Hematocrit Auto (Bld) [Volum e fraction]Ordered By: Claudia Anderson on 01-11-2023 Hematocrit (Bld) [Volume fraction] 35.6 % 37-47 [facility] - Chemistry and C hemistry - challengeOrdered By: Claudia Anderson on 01-11-2023 ALP [Catalytic activity/Vol] 83 U/L 45-117 [facility] ALT [Catalytic activity/Vol] 13 U/L 13-56 [facility] Globulin (S) [Mass/Vol] 3.0 g/dL 2.2-4.2 [facility] - Hematology and Cell countsOrdered By: Claudia Anderson on 01-11-2023 Erythrocyte distribution width (RBC) [Entitic vol] 53.4 fL 35.1-43.9 [facility] Erythrocyte distribution width (RBC) [Ratio] 14.2 % 11.6-14.6 [facility] MCH (RBC) [Entitic mass] 32.9 pg 27.0-32.0 [facility] MCHC Auto (RBC) [Mass/Vol]Or dered By: Claudia Anderson on 01-11-2023 MCHC (RBC) [Mass/Vol] 31.7 g/dL 32-36 [facility] No Panel InformationOrdered By: Claudia Anderson on 01-11-2023 Valproic Acid (Depakene) Level 48 ug/mL 50-100 [facility] Platelets bldOrdered By: Po Anderson on 01-11-2023 Platelets (Bld) [#/Vol] 205 10*3/uL 150-450 [facility] Serum or plasma albumin moriah urement (mass/volume)Ordered By: Claudia Anderson on 01-11-2023 Albumin [Mass/Vol] 2.6 g/dL 3.2-5.0 [facility] Thin prep Papanicolaou smear with manual screeningOrdered By: Claudia Anderson on 01-11-2023 Thin prep Papanicolaou smear with manual screening 12 U/L 15-37 [facility] Absolute lymphocyte countOrd ered By: Claudia Anderson on 12-20-2022 Lymphocytes Auto (Unsp spec) [#/Vol] 2.76 10*3/uL 0.83-4.51 [facility] Basophil percentageOrdered B y: Claudia Anderson on 12-20-2022 Basophils/100 WBC (Bld) 0.8 % 0-1 [facility] Chloride [Moles/Vol] 106 mmol/L 98-107 [facility] Eosinophils/100 WBC (Bld) 6.6 % 0-5 [facility] Glucose [Mass/Vol] 87 mg/dL 74-106 [facility] Neutrophils (Bld) [#/Vol] 1.6 10*3/uL 2.0-7.7 [facility] Neutrophils/100 WBC (Bld) 30.7 % 47-70 [facility] Potassium [Moles/Vol] 3.9 mmol/L 3.5-5.1 [facility] Sodium [Moles/Vol] 143 mmol/L 136-145 [facility] WBC (Bld) [#/Vol] 5.3 10*3/uL 4.4-11.0 [facility] [facility] Blood erythrocytes count (nu mber/volume)Ordered By: Claudia Anderson on 12-20-2022 RBC (Bld) [#/Vol] 3.71 10*6/uL 4.2-5.4 [facility] Blood hemoglobin measurement (mass/volume)Ordered By: Claudia Anderson on 12-20-2022 Hemoglobin (Bld) [Mass/Vol] 12.2 g/dL 12.0-15.0 [facility] Blood lymphocytes/100 leukoc ytesOrdered By: Claudia Anderson on 12-20-2022 Lymphocytes/100 WBC (Bld) 52.1 % 19-41 [facility] Blood monocytes/100 leukocyt esOrdered By: Claudia Anderson on 12-20-2022 Monocytes/100 WBC (Bld) 9.4 % 0-10 [facility] Blood platelet mean volumeOr dered By: Claudia Anderson on 12-20-2022 Platelet mean volume (Bld) [Entitic vol] 9.2 fL 6.2-12.0 [facility] Determination of erythrocyte mean corpuscular volume (MCV)Ordered By: Claudia Anderson on 12-20-2022 MCV (RBC) [Entitic vol] 104.0 fL 81-99 [facility] Hematocrit Auto (Bld) [Volum e fraction]Ordered By: Claudia Anderson on 12-20-2022 Hematocrit (Bld) [Volume fraction] 38.6 % 37-47 [facility] Laboratory - Chemistry and C hemistry - challengeOrdered By: Claudia Anderson on 12-20-2022 CO2 [Moles/Vol] 35.0 mmol/L 21.0-32.0 [facility] Urea nitrogen/Creatinine [Mass ratio] 9.3 mg/mg 10-20 [facility] - Hematology and Cell countsOrdered By: Claudia Anderson on 12-20-2022 Erythrocyte distribution width (RBC) [Entitic vol] 52.6 fL 35.1-43.9 [facility] Erythrocyte distribution width (RBC) [Ratio] 13.8 % 11.6-14.6 [facility] Immature granulocytes/100 WBC (Bld) 0.400 % 0.0-0.9 [facility] Comment on above: IG% - Immature Granu locytes (promyelocytes, myelocytes and metamyelocytes) > 1% indicates that a LEFT SHIFT is Present. MCH (RBC) [Entitic mass] 32.9 pg 27.0-32.0 [facility] Nucleated RBC/100 WBC (Bld) [Ratio] 0 % 0-5 [facility] MCHC Auto (RBC) [Mass/Vol]Or dered By: Claudia Anderson on 12-20-2022 MCHC (RBC) [Mass/Vol] 31.6 g/dL 32-36 [facility] No Panel InformationOrdered By: Claudia Anderson on 12-20-2022 Estimated GFR (MDRD) Amer 97 mL/min >60 [facility] Comment on above: GFR Calc Estimated GFR (MDRD) Non-Af Amer 80 mL/min >60 [facility] Comment on above: Non- GFR Calc Platelets bldOrdered By: Po Anderson on 12-20-2022 Platelets (Bld) [#/Vol] 316 10*3/uL 150-450 [facility] Serum or plasma C reactive p rotein measurement (mass/volume)Ordered By: Claudia Anderson on 12-20-2022 CRP [Mass/Vol] 35.70 mg/L 0.0-3.0 [facility] Comment on above: C-Reactive Protein ( CRP) provides useful information for thediagnosis, therapy and monitoring of inflammatory processesand associated diseases. For the evaluation of Relative Riskfor Cardiovascular Disease, a High Sensitivity CRP (HSCRP)should be ordered. Serum or plasma calcium moriah urement (mass/volume)Ordered By: Claudia Anderson on 12-20-2022 Calcium [Mass/Vol] 8.7 mg/dL 8.5-10.1 [facility] Serum or plasma creatinine m easurement (mass/volume)Ordered By: Claudiasimran Anderson on 12-20-2022 Creatinine [Mass/Vol] 0.76 mg/dL 0.55-1.02 [facility] Comment on above: The validity of the calculated GFR & GFRAA in patients over 70 years has not been determined. Clinical correlation is essential. Serum or plasma urea nitroge n measurement (mass/volume)Ordered By: Claudiasimran Anderson on 12-20-2022 Urea nitrogen [Mass/Vol] 7 mg/dL 7-18 [facility] Thin prep Papanicolaou smear with manual screeningOrdered By: Claudiasimran Anderson on 12-20-2022 Thin prep Papanicolaou smear with manual screening 2 5-15 [facility] Absolute lymphocyte countOrd ered By: Claudiasimran Anderson on 12-17-2022 Lymphocytes Auto (Unsp spec) [#/Vol] 1.47 10*3/uL 0.83-4.51 [facility] Basophil percentageOrdered B y: Claudia Anderson on 12-17-2022 Basophils/100 WBC (Bld) 0.5 % 0-1 [facility] Chloride [Moles/Vol] 104 mmol/L 98-107 [facility] Eosinophils/100 WBC (Bld) 6.7 % 0-5 [facility] Glucose [Mass/Vol] 80 mg/dL 74-106 [facility] Neutrophils (Bld) [#/Vol] 3.3 10*3/uL 2.0-7.7 [facility] Neutrophils/100 WBC (Bld) 55.8 % 47-70 [facility] Potassium [Moles/Vol] 4.1 mmol/L 3.5-5.1 [facility] Sodium [Moles/Vol] 136 mmol/L 136-145 [facility] WBC (Bld) [#/Vol] 6.0 10*3/uL 4.4-11.0 [facility] Blood erythrocytes count (nu mber/volume)Ordered By: Claudia Anderson on 12-17-2022 RBC (Bld) [#/Vol] 3.41 10*6/uL 4.2-5.4 [facility] Blood hemoglobin measurement (mass/volume)Ordered By: Claudia Anderson on 12-17-2022 Hemoglobin (Bld) [Mass/Vol] 10.7 g/dL 12.0-15.0 [facility] Blood lymphocytes/100 leukoc ytesOrdered By: Claudia Anderson on 12-17-2022 Lymphocytes/100 WBC (Bld) 24.6 % 19-41 [facility] Blood monocytes/100 leukocyt esOrdered By: Claudia Anderson on 12-17-2022 Monocytes/100 WBC (Bld) 12.1 % 0-10 [facility] Blood platelet mean volumeOr dered By: Claudia Anderson on 12-17-2022 Platelet mean volume (Bld) [Entitic vol] 9.6 fL 6.2-12.0 [facility] Determination of erythrocyte mean corpuscular volume (MCV)Ordered By: Claudia Anderson on 12-17-2022 MCV (RBC) [Entitic vol] 103.2 fL 81-99 [facility] Hematocrit Auto (Bld) [Volum e fraction]Ordered By: Claudia Anderson on 12-17-2022 Hematocrit (Bld) [Volume fraction] 35.2 % 37-47 [facility] Laboratory - Chemistry and C hemistry - challengeOrdered By: Claudia Anderson on 12-17-2022 CO2 [Moles/Vol] 30.0 mmol/L 21.0-32.0 [facility] Urea nitrogen/Creatinine [Mass ratio] 15.9 mg/mg 10-20 [facility] - Hematology and Cell countsOrdered By: Claudia Anderson on 12-17-2022 Erythrocyte distribution width (RBC) [Entitic vol] 53.8 fL 35.1-43.9 [facility] Erythrocyte distribution width (RBC) [Ratio] 14.1 % 11.6-14.6 [facility] Immature granulocytes/100 WBC (Bld) 0.300 % 0.0-0.9 [facility] Comment on above: IG% - Immature Granu locytes (promyelocytes, myelocytes and metamyelocytes) > 1% indicates that a LEFT SHIFT is Present. MCH (RBC) [Entitic mass] 31.4 pg 27.0-32.0 [facility] Nucleated RBC/100 WBC (Bld) [Ratio] 0 % 0-5 [facility] MCHC Auto (RBC) [Mass/Vol]Or dered By: Claudia Anderson on 12-17-2022 MCHC (RBC) [Mass/Vol] 30.4 g/dL 32-36 [facility] Comment on above: Delta: 32.5 on 12/15-999 No Panel InformationOrdered By: Claudia Anderson on 12-17-2022 Estimated GFR (MDRD) Amer 107 mL/min >60 [facility] Comment on above: GFR Calc Estimated GFR (MDRD) Non-Af Amer 89 mL/min >60 [facility] Comment on above: Non- GFR Calc Platelets bldOrdered By: Po Anderson on 12-17-2022 Platelets (Bld) [#/Vol] 231 10*3/uL 150-450 [facility] Serum or plasma C reactive p rotein measurement (mass/volume)Ordered By: Claudia Anderson on 12-17-2022 CRP [Mass/Vol] 160.00 mg/L 0.0-3.0 [facility] Comment on above: C-Reactive Protein ( CRP) provides useful information for thediagnosis, therapy and monitoring of inflammatory processesand associated diseases. For the evaluation of Relative Riskfor Cardiovascular Disease, a High Sensitivity CRP (HSCRP)should be ordered. Serum or plasma calcium moriah urement (mass/volume)Ordered By: Claudia Anderson on 12-17-2022 Calcium [Mass/Vol] 8.2 mg/dL 8.5-10.1 [facility] Serum or plasma creatinine m easurement (mass/volume)Ordered By: Claudia Anderson on 12-17-2022 Creatinine [Mass/Vol] 0.69 mg/dL 0.55-1.02 [facility] Comment on above: The validity of the calculated GFR & GFRAA in patients over 70 years has not been determined. Clinical correlation is essential. Serum or plasma urea nitroge n measurement (mass/volume)Ordered By: Claudia Anderson on 12-17-2022 Urea nitrogen [Mass/Vol] 11 mg/dL 7-18 [facility] Thin prep Papanicolaou smear with manual screeningOrdered By: Claudiasimran Anderson on 12-17-2022 Thin prep Papanicolaou smear with manual screening 2 5-15 [facility] Absolute lymphocyte countOrd ered By: Oniel Valente on 12-15-2022 Lymphocytes Auto (Unsp spec) [#/Vol] 1.45 10*3/uL 0.83-4.51 [facility] Basophil percentageOrdered B y: Oniel Valente on 12-15-2022 Basophil percentage 0 SEEN /hpf 0-5 [facility] Ammonia (P) [Moles/Vol] 20.0 umol/L 11-32 [facility] Basophils/100 WBC (Bld) 0.4 % 0-1 [facility] Bilirubin [Mass/Vol] 0.20 mg/dL 0.20-1.00 [facility] Comment on above: For patients on eltr ombopag therapy, use of Dimension [place] TBIL is not recommended. Chloride [Moles/Vol] 101 mmol/L 98-107 [facility] Eosinophils/100 WBC (Bld) 2.2 % 0-5 [facility] Glucose [Mass/Vol] 98 mg/dL 74-106 [facility] Neutrophils (Bld) [#/Vol] 6.5 10*3/uL 2.0-7.7 [facility] Neutrophils/100 WBC (Bld) 68.4 % 47-70 [facility] Potassium [Moles/Vol] 4.0 mmol/L 3.5-5.1 [facility] Protein [Mass/Vol] 6.3 g/dL 6.4-8.2 [facility] Sodium [Moles/Vol] 134 mmol/L 136-145 [facility] WBC (Bld) [#/Vol] 9.5 10*3/uL 4.4-11.0 [facility] Bilirubin Test strip Ql (U)O rdered By: Oniel Valente on 12-15-2022 Bilirubin Ql (U) Negative Negative [facility] Blood erythrocytes count (nu mber/volume)Ordered By: Oniel Valente on 12-15-2022 RBC (Bld) [#/Vol] 3.62 10*6/uL 4.2-5.4 [facility] Blood hemoglobin measurement (mass/volume)Ordered By: Oniel Valente on 12-15-2022 Hemoglobin (Bld) [Mass/Vol] 11.8 g/dL 12.0-15.0 [facility] Blood lymphocytes/100 leukoc ytesOrdered By: Oniel Valente on 12-15-2022 Lymphocytes/100 WBC (Bld) 15.3 % 19-41 [facility] Blood monocytes/100 leukocyt esOrdered By: Oniel Valente on 12-15-2022 Monocytes/100 WBC (Bld) 13.3 % 0-10 [facility] Blood platelet mean volumeOr dered By: Oniel Valente on 12-15-2022 Platelet mean volume (Bld) [Entitic vol] 9.0 fL 6.2-12.0 [facility] Determination of erythrocyte mean corpuscular volume (MCV)Ordered By: Oniel Valente on 12-15-2022 MCV (RBC) [Entitic vol] 100.3 fL 81-99 [facility] Hematocrit Auto (Bld) [Volum e fraction]Ordered By: Oniel Valente on 12-15-2022 Hematocrit (Bld) [Volume fraction] 36.3 % 37-47 [facility] Influenza virus A and B and SARS-CoV-2 (COVID-19) Ag panel - Upper respiratory specimOrdered By: Oniel Valente on 12-15-2022 SARS-CoV-2 & FLU Antigen (Rapid) SARS-CoV-2 (COVID 19) [facility] SARS-CoV-2 & FLU Antigen (Rapid) SARS-CoV-2 (COVID 19) [facility] Ketones Test strip Ql (U)Ord ered By: Oniel Valente on 12-15-2022 Ketones Ql (U) Negative Negative [facility] Laboratory - Chemistry and C hemistry - challengeOrdered By: Oniel Valente on 12-15-2022 ALP [Catalytic activity/Vol] 95 U/L 45-117 [facility] ALT [Catalytic activity/Vol] 14 U/L 13-56 [facility] CO2 [Moles/Vol] 30.0 mmol/L 21.0-32.0 [facility] Globulin (S) [Mass/Vol] 3.5 g/dL 2.2-4.2 [facility] Urea nitrogen/Creatinine [Mass ratio] 12.5 mg/mg 10-20 [facility] - Hematology and Cell countsOrdered By: Oniel Valente on 12-15-2022 Erythrocyte distribution width (RBC) [Entitic vol] 51.2 fL 35.1-43.9 [facility] Erythrocyte distribution width (RBC) [Ratio] 13.8 % 11.6-14.6 [facility] Immature granulocytes/100 WBC (Bld) 0.400 % 0.0-0.9 [facility] Comment on above: IG% - Immature Granu locytes (promyelocytes, myelocytes and metamyelocytes) > 1% indicates that a LEFT SHIFT is Present. MCH (RBC) [Entitic mass] 32.6 pg 27.0-32.0 [facility] Nucleated RBC/100 WBC (Bld) [Ratio] 0 % 0-5 [facility] MCHC Auto (RBC) [Mass/Vol]Or dered By: Oniel Valente on 12-15-2022 MCHC (RBC) [Mass/Vol] 32.5 g/dL 32-36 [facility] Mucus LM Ql (Urine sed)Order ed By: Oniel Valente on 12-15-2022 Mucus Ql (Urine sed) 0 SEEN /hpf [facility] Nitrite Test strip Ql (U)Ord ered By: Oniel Valente on 12-15-2022 Nitrite Ql (U) Negative Negative [facility] No Panel InformationOrdered By: Oniel Valente on 12-15-2022 Estimated Creatinine Clearance Calc 42.12 ml/min [facility] Estimated GFR (MDRD) Amer 81 mL/min >60 [facility] Comment on above: GFR Calc Estimated GFR (MDRD) Non-Af Amer 67 mL/min >60 [facility] Comment on above: Non- GFR Calc Troponin I High Sensitivity 7 pg/mL 3.0-54.0 [facility] Comment on above: Please Note: New Nicolasa t Units and Gender Specific Reference Ranges. For more information see Policy Stat Procedure [place] High Sensitivity Troponin (TNIH) and attachments. Platelets bldOrdered By: Fredy Valente on 12-15-2022 Platelets (Bld) [#/Vol] 229 10*3/uL 150-450 [facility] Protein Test strip Ql (U)Ord ered By: Oniel Valente on 12-15-2022 Protein Ql (U) Negative Negative [facility] Serum or plasma albumin moriah urement (mass/volume)Ordered By: Oniel Valente on 12-15-2022 Albumin [Mass/Vol] 2.8 g/dL 3.2-5.0 [facility] Serum or plasma albumin/glob ulin mass ratioOrdered By: Oniel Valente on 12-15-2022 Albumin/Globulin [Mass ratio] 0.8 {ratio} 0.9-2.4 [facility] Serum or plasma calcium moriah urement (mass/volume)Ordered By: Oniel Valente on 12-15-2022 Calcium [Mass/Vol] 8.3 mg/dL 8.5-10.1 [facility] Serum or plasma creatinine m easurement (mass/volume)Ordered By: Oniel Valente on 12-15-2022 Creatinine [Mass/Vol] 0.88 mg/dL 0.55-1.02 [facility] Comment on above: The validity of the calculated GFR & GFRAA in patients over 70 years has not been determined. Clinical correlation is essential. Serum or plasma urea nitroge n measurement (mass/volume)Ordered By: Oniel Valente on 12-15-2022 Urea nitrogen [Mass/Vol] 11 mg/dL 7-18 [facility] Squamous epithelial cells de tection in urine sediment by light microscopyOrdered By: Oniel Valente on 12-15-2022 Epithelial cells.squamous LM Ql (Urine sed) 0 SEEN /hpf 5-10 [facility] Thin prep Papanicolaou smear with manual screeningOrdered By: Oniel Valente on 12-15-2022 Thin prep Papanicolaou smear with manual screening 13 U/L 15-37 [facility] Thin prep Papanicolaou smear with manual screening 3 5-15 [facility] Urine blood detectionOrdered By: Oniel Valente on 12-15-2022 RBC Ql (U) Negative Negative [facility] RBC Ql (U) 0 SEEN /hpf 0-5 [facility] Urine clarityOrdered By: Fredy Valente on 12-15-2022 Clarity (U) Clear Clear [facility] Urine color determinationOrd ered By: Oniel Valente on 12-15-2022 Color (U) Yellow Yellow [facility] Urine glucose detectionOrder ed By: Oniel Valente on 12-15-2022 Glucose Ql (U) Normal mg/dl Normal [facility] Urine leukocyte esterase det ection by dipstickOrdered By: Oniel Valente on 12-15-2022 Leukocyte esterase Test strip Ql (U) Negative Negative [facility] Urine pHOrdered By: Oniel arana on 12-15-2022 pH (U) 7.0 [pH] 5.0 - 8.0 [facility] Urine sediment bacteria coun t by microscopy (number/high power field)Ordered By: Oniel Valente on 12-15-2022 Bacteria LM.HPF (Urine sed) [#/Area] 0 /[HPF] None Seen [facility] Urine specific gravity measu rementOrdered By: Oniel Valente on 12-15-2022 Specific gravity (U) [Rel density] 1.010 1.002-1.030 [facility] Urobilinogen Auto test strip Ql (U)Ordered By: Oniel Valente on 12-15-2022 Urobilinogen Ql (U) Normal mg/dl Normal [facility] Basophil percentageOrdered B y: Claudia Anderson on 11-17-2022 Basophil percentage < 10.0 umol/L [facility] Absolute lymphocyte countOrd ered By: Claudia Anderson on 09-29-2022 Lymphocytes Auto (Unsp spec) [#/Vol] 2.37 10*3/uL 0.83-4.51 [facility] Basophil percentageOrdered B y: Claudia Anderson on 09-29-2022 Basophils/100 WBC (Bld) 0.9 % 0-1 [facility] Chloride [Moles/Vol] 107 mmol/L 98-107 [facility] Eosinophils/100 WBC (Bld) 5.0 % 0-5 [facility] Glucose [Mass/Vol] 79 mg/dL 74-106 [facility] Neutrophils (Bld) [#/Vol] 1.5 10*3/uL 2.0-7.7 [facility] Neutrophils/100 WBC (Bld) 31.8 % 47-70 [facility] Potassium [Moles/Vol] 3.8 mmol/L 3.5-5.1 [facility] Sodium [Moles/Vol] 142 mmol/L 136-145 [facility] WBC (Bld) [#/Vol] 4.6 10*3/uL 4.4-11.0 [facility] Blood erythrocytes count (nu mber/volume)Ordered By: Claudia Anderson on 09-29-2022 RBC (Bld) [#/Vol] 3.68 10*6/uL 4.2-5.4 [facility] Blood hemoglobin measurement (mass/volume)Ordered By: Claudia Anderson on 09-29-2022 Hemoglobin (Bld) [Mass/Vol] 11.7 g/dL 12.0-15.0 [facility] Blood lymphocytes/100 leukoc ytesOrdered By: Claudia Anderson on 09-29-2022 Lymphocytes/100 WBC (Bld) 52.0 % 19-41 [facility] Blood monocytes/100 leukocyt esOrdered By: Claudia Anderson on 09-29-2022 Monocytes/100 WBC (Bld) 10.1 % 0-10 [facility] Blood platelet mean volumeOr dered By: Claudia Anderson on 09-29-2022 Platelet mean volume (Bld) [Entitic vol] 9.7 fL 6.2-12.0 [facility] Determination of erythrocyte mean corpuscular volume (MCV)Ordered By: Claudia Anderson on 09-29-2022 MCV (RBC) [Entitic vol] 100.8 fL 81-99 [facility] Hematocrit Auto (Bld) [Volum e fraction]Ordered By: Claudia Anderson on 09-29-2022 Hematocrit (Bld) [Volume fraction] 37.1 % 37-47 [facility] - Chemistry and C hemistry - challengeOrdered By: Claudia Anderson on 09-29-2022 CO2 [Moles/Vol] 31.0 mmol/L 21.0-32.0 [facility] Urea nitrogen/Creatinine [Mass ratio] 7.1 mg/mg 10-20 [facility] - Hematology and Cell countsOrdered By: Claudia Anderson on 09-29-2022 Erythrocyte distribution width (RBC) [Entitic vol] 50.7 fL 35.1-43.9 [facility] Erythrocyte distribution width (RBC) [Ratio] 13.6 % 11.6-14.6 [facility] Immature granulocytes/100 WBC (Bld) 0.200 % 0.0-0.9 [facility] Comment on above: IG% - Immature Granu locytes (promyelocytes, myelocytes and metamyelocytes) > 1% indicates that a LEFT SHIFT is Present. MCH (RBC) [Entitic mass] 31.8 pg 27.0-32.0 [facility] Nucleated RBC/100 WBC (Bld) [Ratio] 0 % 0-5 [facility] MCHC Auto (RBC) [Mass/Vol]Or dered By: Claudia Anderson on 09-29-2022 MCHC (RBC) [Mass/Vol] 31.5 g/dL 32-36 [facility] No Panel InformationOrdered By: Claudia Anderson on 09-29-2022 Estimated GFR (MDRD) Amer 105 mL/min >60 [facility] Comment on above: GFR Calc Estimated GFR (MDRD) Non-Af Amer 87 mL/min >60 [facility] Comment on above: Non- GFR Calc Platelets bldOrdered By: Po Anderson on 09-29-2022 Platelets (Bld) [#/Vol] 269 10*3/uL 150-450 [facility] Serum or plasma calcium moriah urement (mass/volume)Ordered By: Claudia Anderson on 09-29-2022 Calcium [Mass/Vol] 8.3 mg/dL 8.5-10.1 [facility] Serum or plasma creatinine m easurement (mass/volume)Ordered By: Claudia Anderson on 09-29-2022 Creatinine [Mass/Vol] 0.71 mg/dL 0.55-1.02 [facility] Comment on above: The validity of the calculated GFR & GFRAA in patients over 70 years has not been determined. Clinical correlation is essential. Serum or plasma urea nitroge n measurement (mass/volume)Ordered By: Claudia Anderson on 09-29-2022 Urea nitrogen [Mass/Vol] 5 mg/dL 7-18 [facility] Thin prep Papanicolaou smear with manual screeningOrdered By: Claudiasimran Anderson on 09-29-2022 Thin prep Papanicolaou smear with manual screening 4 5-15 [facility] Absolute lymphocyte countOrd ered By: Claudia Anderson on 09-22-2022 Lymphocytes Auto (Unsp spec) [#/Vol] 2.33 10*3/uL 0.83-4.51 [facility] Basophil percentageOrdered B y: Claudia Anderson on 09-22-2022 Basophils/100 WBC (Bld) 0.6 % 0-1 [facility] Chloride [Moles/Vol] 107 mmol/L 98-107 [facility] Eosinophils/100 WBC (Bld) 6.0 % 0-5 [facility] Glucose [Mass/Vol] 78 mg/dL 74-106 [facility] Neutrophils (Bld) [#/Vol] 2.9 10*3/uL 2.0-7.7 [facility] Neutrophils/100 WBC (Bld) 45.4 % 47-70 [facility] Potassium [Moles/Vol] 4.2 mmol/L 3.5-5.1 [facility] Sodium [Moles/Vol] 140 mmol/L 136-145 [facility] WBC (Bld) [#/Vol] 6.3 10*3/uL 4.4-11.0 [facility] Blood erythrocytes count (nu mber/volume)Ordered By: Claudia Anderson on 09-22-2022 RBC (Bld) [#/Vol] 3.55 10*6/uL 4.2-5.4 [facility] Blood hemoglobin measurement (mass/volume)Ordered By: Claudia Anderson on 09-22-2022 Hemoglobin (Bld) [Mass/Vol] 11.4 g/dL 12.0-15.0 [facility] Blood lymphocytes/100 leukoc ytesOrdered By: Claudia Anderson on 09-22-2022 Lymphocytes/100 WBC (Bld) 36.9 % 19-41 [facility] Blood monocytes/100 leukocyt esOrdered By: Claudia Anderson on 09-22-2022 Monocytes/100 WBC (Bld) 10.8 % 0-10 [facility] Blood platelet mean volumeOr dered By: Claudia Anderson on 09-22-2022 Platelet mean volume (Bld) [Entitic vol] 10.1 fL 6.2-12.0 [facility] Determination of erythrocyte mean corpuscular volume (MCV)Ordered By: Claudia Anderson on 09-22-2022 MCV (RBC) [Entitic vol] 103.1 fL 81-99 [facility] Hematocrit Auto (Bld) [Volum e fraction]Ordered By: Claudia Anderson on 09-22-2022 Hematocrit (Bld) [Volume fraction] 36.6 % 37-47 [facility] - Chemistry and C hemistry - challengeOrdered By: Claudia Anderson on 09-22-2022 CO2 [Moles/Vol] 28.0 mmol/L 21.0-32.0 [facility] Urea nitrogen/Creatinine [Mass ratio] 11.8 mg/mg 10-20 [facility] - Hematology and Cell countsOrdered By: Claudia Anderson on 09-22-2022 Erythrocyte distribution width (RBC) [Entitic vol] 53.5 fL 35.1-43.9 [facility] Erythrocyte distribution width (RBC) [Ratio] 13.9 % 11.6-14.6 [facility] Immature granulocytes/100 WBC (Bld) 0.300 % 0.0-0.9 [facility] Comment on above: IG% - Immature Granu locytes (promyelocytes, myelocytes and metamyelocytes) > 1% indicates that a LEFT SHIFT is Present. MCH (RBC) [Entitic mass] 32.1 pg 27.0-32.0 [facility] Nucleated RBC/100 WBC (Bld) [Ratio] 0 % 0-5 [facility] MCHC Auto (RBC) [Mass/Vol]Or dered By: Claudia Anderson on 09-22-2022 MCHC (RBC) [Mass/Vol] 31.1 g/dL 32-36 [facility] No Panel InformationOrdered By: Claudia Anderson on 09-22-2022 Estimated GFR (MDRD) Amer 96 mL/min >60 [facility] Comment on above: GFR Calc Estimated GFR (MDRD) Non-Af Amer 79 mL/min >60 [facility] Comment on above: Non- GFR Calc Platelets bldOrdered By: Po Anderson on 09-22-2022 Platelets (Bld) [#/Vol] 242 10*3/uL 150-450 [facility] Serum or plasma calcium moriah urement (mass/volume)Ordered By: Claudia Anderson on 09-22-2022 Calcium [Mass/Vol] 8.5 mg/dL 8.5-10.1 [facility] Serum or plasma creatinine m easurement (mass/volume)Ordered By: Claudia Anderson on 09-22-2022 Creatinine [Mass/Vol] 0.76 mg/dL 0.55-1.02 [facility] Comment on above: The validity of the calculated GFR & GFRAA in patients over 70 years has not been determined. Clinical correlation is essential. Serum or plasma urea nitroge n measurement (mass/volume)Ordered By: Claudia Anderson on 09-22-2022 Urea nitrogen [Mass/Vol] 9 mg/dL 7-18 [facility] Thin prep Papanicolaou smear with manual screeningOrdered By: Claudia Anderson on 09-22-2022 Thin prep Papanicolaou smear with manual screening 5 5-15 [facility] Absolute lymphocyte countOrd ered By: Claudia Anderson on 09-15-2022 Lymphocytes Auto (Unsp spec) [#/Vol] 2.14 10*3/uL 0.83-4.51 [facility] Basophil percentageOrdered B y: Claudia Anderson on 09-15-2022 Basophils/100 WBC (Bld) 1.0 % 0-1 [facility] Chloride [Moles/Vol] 110 mmol/L 98-107 [facility] Eosinophils/100 WBC (Bld) 7.0 % 0-5 [facility] Glucose [Mass/Vol] 79 mg/dL 74-106 [facility] Neutrophils (Bld) [#/Vol] 2.0 10*3/uL 2.0-7.7 [facility] Neutrophils/100 WBC (Bld) 38.2 % 47-70 [facility] Potassium [Moles/Vol] 4.4 mmol/L 3.5-5.1 [facility] Sodium [Moles/Vol] 141 mmol/L 136-145 [facility] WBC (Bld) [#/Vol] 5.1 10*3/uL 4.4-11.0 [facility] Blood erythrocytes count (nu mber/volume)Ordered By: Claudia Anderson on 09-15-2022 RBC (Bld) [#/Vol] 3.49 10*6/uL 4.2-5.4 [facility] Blood hemoglobin measurement (mass/volume)Ordered By: Claudia Anderson on 09-15-2022 Hemoglobin (Bld) [Mass/Vol] 11.0 g/dL 12.0-15.0 [facility] Blood lymphocytes/100 leukoc ytesOrdered By: Claudia Anderson on 09-15-2022 Lymphocytes/100 WBC (Bld) 41.9 % 19-41 [facility] Blood monocytes/100 leukocyt esOrdered By: Claudia Anderson on 09-15-2022 Monocytes/100 WBC (Bld) 11.7 % 0-10 [facility] Blood platelet mean volumeOr dered By: Claudia Anderson on 09-15-2022 Platelet mean volume (Bld) [Entitic vol] 10.0 fL 6.2-12.0 [facility] Determination of erythrocyte mean corpuscular volume (MCV)Ordered By: Claudia Anderson on 09-15-2022 MCV (RBC) [Entitic vol] 102.0 fL 81-99 [facility] Hematocrit Auto (Bld) [Volum e fraction]Ordered By: Claudia Anderson on 09-15-2022 Hematocrit (Bld) [Volume fraction] 35.6 % 37-47 [facility] Laboratory - Chemistry and C hemistry - challengeOrdered By: Claudia Anderson on 09-15-2022 CO2 [Moles/Vol] 28.0 mmol/L 21.0-32.0 [facility] Urea nitrogen/Creatinine [Mass ratio] 15.2 mg/mg 10-20 [facility] Laboratory - Hematology and Cell countsOrdered By: Claudia Anderson on 09-15-2022 Erythrocyte distribution width (RBC) [Entitic vol] 52.8 fL 35.1-43.9 [facility] Erythrocyte distribution width (RBC) [Ratio] 14.1 % 11.6-14.6 [facility] Immature granulocytes/100 WBC (Bld) 0.200 % 0.0-0.9 [facility] Comment on above: IG% - Immature Granu locytes (promyelocytes, myelocytes and metamyelocytes) > 1% indicates that a LEFT SHIFT is Present. MCH (RBC) [Entitic mass] 31.5 pg 27.0-32.0 [facility] Nucleated RBC/100 WBC (Bld) [Ratio] 0 % 0-5 [facility] MCHC Auto (RBC) [Mass/Vol]Or dered By: Claudia Anderson on 09-15-2022 MCHC (RBC) [Mass/Vol] 30.9 g/dL 32-36 [facility] No Panel InformationOrdered By: Claudia Anderson on 09-15-2022 Estimated GFR (MDRD) Amer 84 mL/min >60 [facility] Comment on above: GFR Calc Estimated GFR (MDRD) Non-Af Amer 70 mL/min >60 [facility] Comment on above: Non- GFR Calc Platelets bldOrdered By: Po Anderson on 09-15-2022 Platelets (Bld) [#/Vol] 277 10*3/uL 150-450 [facility] Serum or plasma calcium moriah urement (mass/volume)Ordered By: Claudia Anderson on 09-15-2022 Calcium [Mass/Vol] 8.0 mg/dL 8.5-10.1 [facility] Serum or plasma creatinine m easurement (mass/volume)Ordered By: Claudia Anderson on 09-15-2022 Creatinine [Mass/Vol] 0.85 mg/dL 0.55-1.02 [facility] Comment on above: The validity of the calculated GFR & GFRAA in patients over 70 years has not been determined. Clinical correlation is essential. Serum or plasma urea nitroge n measurement (mass/volume)Ordered By: Claudia Anderson on 09-15-2022 Urea nitrogen [Mass/Vol] 13 mg/dL 7-18 [facility] Thin prep Papanicolaou smear with manual screeningOrdered By: Claudia Anderson on 09-15-2022 Thin prep Papanicolaou smear with manual screening 3 5-15 [facility] Absolute lymphocyte countOrd ered By: Dr. Anderson on 09-08-2022 Lymphocytes Auto (Unsp spec) [#/Vol] 2.41 10*3/uL 0.83-4.51 [facility] Basophil percentageOrdered B y: Dr. Anderson on 09-08-2022 Basophil percentage 84 mg/dL 74-106 [facility] Basophil percentage 139 mmol/L 136-145 [facility] Basophil percentage 4.6 mmol/L 3.5-5.1 [facility] Basophil percentage 106 mmol/L 98-107 [facility] Basophils (Bld) [#/Vol] 5.9 10*3/uL 4.4-11.0 [facility] Basophils (Bld) [#/Vol] 2.4 10*3/uL 2.0-7.7 [facility] Basophils/100 WBC (Bld) 40.7 % 47-70 [facility] Basophils/100 WBC (Bld) 6.6 % 0-5 [facility] Basophils/100 WBC (Bld) 0.8 % 0-1 [facility] Basophil percentageOrdered B y: Claudia Anderson on 09-08-2022 Chloride [Moles/Vol] 106 mmol/L 98-107 [facility] Eosinophils/100 WBC (Bld) 6.6 % 0-5 [facility] Glucose [Mass/Vol] 84 mg/dL 74-106 [facility] Neutrophils (Bld) [#/Vol] 2.4 10*3/uL 2.0-7.7 [facility] Neutrophils/100 WBC (Bld) 40.7 % 47-70 [facility] Potassium [Moles/Vol] 4.6 mmol/L 3.5-5.1 [facility] Sodium [Moles/Vol] 139 mmol/L 136-145 [facility] WBC (Bld) [#/Vol] 5.9 10*3/uL 4.4-11.0 [facility] Blood erythrocytes count (nu mber/volume)Ordered By: Dr. Anderson on 09-08-2022 RBC (Bld) [#/Vol] 3.63 10*6/uL 4.2-5.4 [facility] Blood hemoglobin measurement (mass/volume)Ordered By: Dr. Anderson on 09-08-2022 Hemoglobin (Bld) [Mass/Vol] 11.5 g/dL 12.0-15.0 [facility] Blood lymphocytes/100 leukoc ytesOrdered By: Dr. Anderson on 09-08-2022 Lymphocytes/100 WBC (Bld) 40.8 % 19-41 [facility] Blood monocytes/100 leukocyt esOrdered By: Dr. Anderson on 09-08-2022 Monocytes/100 WBC (Bld) 10.8 % 0-10 [facility] Blood platelet mean volumeOr dered By: Dr. Anderson on 09-08-2022 Platelet mean volume (Bld) [Entitic vol] 9.9 fL 6.2-12.0 [facility] Determination of erythrocyte mean corpuscular volume (MCV)Ordered By: Dr. Anderson on 09-08-2022 MCV (RBC) [Entitic vol] 102.8 fL 81-99 [facility] Hematocrit Auto (Bld) [Volum e fraction]Ordered By: Dr. Anderson on 09-08-2022 Hematocrit (Bld) [Volume fraction] 37.3 % 37-47 [facility] Laboratory - Chemistry and C hemistry - challengeOrdered By: Claudia Anderson on 09-08-2022 CO2 [Moles/Vol] 29.0 mmol/L 21.0-32.0 [facility] Urea nitrogen/Creatinine [Mass ratio] 14.0 mg/mg 10-20 [facility] - Hematology and Cell countsOrdered By: Claudia Anderson on 09-08-2022 Erythrocyte distribution width (RBC) [Entitic vol] 51.6 fL 35.1-43.9 [facility] Erythrocyte distribution width (RBC) [Ratio] 13.6 % 11.6-14.6 [facility] Immature granulocytes/100 WBC (Bld) 0.300 % 0.0-0.9 [facility] Comment on above: IG% - Immature Granu locytes (promyelocytes, myelocytes and metamyelocytes) > 1% indicates that a LEFT SHIFT is Present. MCH (RBC) [Entitic mass] 31.7 pg 27.0-32.0 [facility] Nucleated RBC/100 WBC (Bld) [Ratio] 0 % 0-5 [facility] MCHC Auto (RBC) [Mass/Vol]Or dered By: Dr. Anderson on 09-08-2022 MCHC (RBC) [Mass/Vol] 30.8 g/dL 32-36 [facility] No Panel InformationOrdered By: Claudia Anderson on 09-08-2022 Estimated GFR (MDRD) Amer 84 mL/min >60 [facility] Comment on above: GFR Calc Estimated GFR (MDRD) Non-Af Amer 69 mL/min >60 [facility] Comment on above: Non- GFR Calc Vitamin D 25-Hydroxy 49.5 ng/mL [facility] Comment on above: Vitamin D 25(OH) Sta tus Range Deficiency <20 ng/mL (50nmol/L) Insufficiency 20 - 30 ng/mL (50 - 75 nmol/L) Sufficiency 30 - 100 ng/mL (75 - 250 nmol/L) Toxicity >100 ng/mL (>250 nmol/L) No Panel InformationOrdered By: Dr. Anderson on 09-08-2022 31.7 pg 27.0-32.0 [facility] 13.6 % 11.6-14.6 [facility] 51.6 fl 35.1-43.9 [facility] 0.300 % 0.0-0.9 [facility] 0 % 0-5 [facility] 69 mL/min >60 [facility] 84 mL/min >60 [facility] 14.0 RATIO 10-20 [facility] 29.0 mmol/L 21.0-32.0 [facility] 49.5 ng/mL [facility] Platelets bldOrdered By: Dr. Anderson on 09-08-2022 Platelets (Bld) [#/Vol] 270 10*3/uL 150-450 [facility] Serum or plasma calcium moriah urement (mass/volume)Ordered By: Dr. Anderson on 09-08-2022 Calcium [Mass/Vol] 8.7 mg/dL 8.5-10.1 [facility] Serum or plasma creatinine m easurement (mass/volume)Ordered By: Dr. Anderson on 09-08-2022 Creatinine [Mass/Vol] 0.86 mg/dL 0.55-1.02 [facility] Comment on above: The validity of the calculated GFR & GFRAA in patients over 70 years has not been determined. Clinical correlation is essential. Serum or plasma urea nitroge n measurement (mass/volume)Ordered By: Dr. Anderson on 09-08-2022 Urea nitrogen [Mass/Vol] 12 mg/dL 7-18 [facility] Thin prep Papanicolaou smear with manual screeningOrdered By: Dr. Anderson on 09-08-2022 Thin prep Papanicolaou smear with manual screening 4 5-15 [facility] Absolute lymphocyte countOrd ered By: Dr. Anderson on 09-01-2022 Lymphocytes Auto (Unsp spec) [#/Vol] 2.48 10*3/uL 0.83-4.51 [facility] Basophil percentageOrdered B y: Dr. Anderson on 09-01-2022 Basophil percentage 85 mg/dL 74-106 [facility] Basophil percentage 141 mmol/L 136-145 [facility] Basophil percentage 4.2 mmol/L 3.5-5.1 [facility] Basophil percentage 108 mmol/L 98-107 [facility] Basophils (Bld) [#/Vol] 5.5 10*3/uL 4.4-11.0 [facility] Basophils (Bld) [#/Vol] 1.9 10*3/uL 2.0-7.7 [facility] Basophils/100 WBC (Bld) 34.4 % 47-70 [facility] Basophils/100 WBC (Bld) 8.1 % 0-5 [facility] Basophils/100 WBC (Bld) 0.7 % 0-1 [facility] Basophil percentage 0 SEEN /hpf 0-5 [facility] Basophil percentageOrdered B y: Claudia Anderson on 09-01-2022 Chloride [Moles/Vol] 108 mmol/L 98-107 [facility] Eosinophils/100 WBC (Bld) 8.1 % 0-5 [facility] Glucose [Mass/Vol] 85 mg/dL 74-106 [facility] Neutrophils (Bld) [#/Vol] 1.9 10*3/uL 2.0-7.7 [facility] Neutrophils/100 WBC (Bld) 34.4 % 47-70 [facility] Potassium [Moles/Vol] 4.2 mmol/L 3.5-5.1 [facility] Sodium [Moles/Vol] 141 mmol/L 136-145 [facility] WBC (Bld) [#/Vol] 5.5 10*3/uL 4.4-11.0 [facility] Bilirubin Test strip Ql (U)O rdered By: Dr. Anderson on 09-01-2022 Bilirubin Ql (U) Negative Negative [facility] Blood erythrocytes count (nu mber/volume)Ordered By: Dr. Anderson on 09-01-2022 RBC (Bld) [#/Vol] 3.52 10*6/uL 4.2-5.4 [facility] Blood hemoglobin measurement (mass/volume)Ordered By: Dr. Anderson on 09-01-2022 Hemoglobin (Bld) [Mass/Vol] 11.1 g/dL 12.0-15.0 [facility] Blood lymphocytes/100 leukoc ytesOrdered By: Dr. Anderson on 09-01-2022 Lymphocytes/100 WBC (Bld) 44.8 % 19-41 [facility] Blood monocytes/100 leukocyt esOrdered By: Dr. Anderson on 09-01-2022 Monocytes/100 WBC (Bld) 11.6 % 0-10 [facility] Blood platelet mean volumeOr dered By: Dr. Anderson on 09-01-2022 Platelet mean volume (Bld) [Entitic vol] 9.8 fL 6.2-12.0 [facility] Determination of erythrocyte mean corpuscular volume (MCV)Ordered By: Dr. Anderson on 09-01-2022 MCV (RBC) [Entitic vol] 101.7 fL 81-99 [facility] Hematocrit Auto (Bld) [Volum e fraction]Ordered By: Dr. Anderson on 09-01-2022 Hematocrit (Bld) [Volume fraction] 35.8 % 37-47 [facility] Ketones Test strip Ql (U)Ord ered By: Dr. Anderson on 09-01-2022 Ketones Ql (U) Negative Negative [facility] Laboratory - Chemistry and C hemistry - challengeOrdered By: Claudia Anderson on 09-01-2022 CO2 [Moles/Vol] 29.0 mmol/L 21.0-32.0 [facility] Urea nitrogen/Creatinine [Mass ratio] 13.8 mg/mg 10-20 [facility] - Hematology and Cell countsOrdered By: Claudia Anderson on 09-01-2022 Erythrocyte distribution width (RBC) [Entitic vol] 51.1 fL 35.1-43.9 [facility] Erythrocyte distribution width (RBC) [Ratio] 13.7 % 11.6-14.6 [facility] Immature granulocytes/100 WBC (Bld) 0.400 % 0.0-0.9 [facility] Comment on above: IG% - Immature Granu locytes (promyelocytes, myelocytes and metamyelocytes) > 1% indicates that a LEFT SHIFT is Present. MCH (RBC) [Entitic mass] 31.5 pg 27.0-32.0 [facility] Nucleated RBC/100 WBC (Bld) [Ratio] 0 % 0-5 [facility] MCHC Auto (RBC) [Mass/Vol]Or dered By: Dr. Anderson on 09-01-2022 MCHC (RBC) [Mass/Vol] 31.0 g/dL 32-36 [facility] Mucus LM Ql (Urine sed)Order ed By: Dr. Anderson on 09-01-2022 Mucus Ql (Urine sed) 0 SEEN /hpf [facility] Nitrite Test strip Ql (U)Ord ered By: Dr. Anderson on 09-01-2022 Nitrite Ql (U) Negative Negative [facility] No Panel InformationOrdered By: Claudia Anderson on 09-01-2022 Estimated GFR (MDRD) Amer 116 mL/min >60 [facility] Comment on above: GFR Calc Estimated GFR (MDRD) Non-Af Amer 96 mL/min >60 [facility] Comment on above: Non- GFR Calc No Panel InformationOrdered By: Dr. Anderson on 09-01-2022 31.5 pg 27.0-32.0 [facility] 13.7 % 11.6-14.6 [facility] 51.1 fl 35.1-43.9 [facility] 0.400 % 0.0-0.9 [facility] 0 % 0-5 [facility] 96 mL/min >60 [facility] 116 mL/min >60 [facility] 13.8 RATIO 10-20 [facility] 29.0 mmol/L 21.0-32.0 [facility] Platelets bldOrdered By: Dr. Anderson on 09-01-2022 Platelets (Bld) [#/Vol] 262 10*3/uL 150-450 [facility] Protein Test strip Ql (U)Ord ered By: Dr. Anderson on 09-01-2022 Protein Ql (U) Negative Negative [facility] Serum or plasma calcium moriah urement (mass/volume)Ordered By: Dr. Anderson on 09-01-2022 Calcium [Mass/Vol] 8.3 mg/dL 8.5-10.1 [facility] Serum or plasma creatinine m easurement (mass/volume)Ordered By: Dr. Anderson on 09-01-2022 Creatinine [Mass/Vol] 0.65 mg/dL 0.55-1.02 [facility] Comment on above: The validity of the calculated GFR & GFRAA in patients over 70 years has not been determined. Clinical correlation is essential. Serum or plasma urea nitroge n measurement (mass/volume)Ordered By: Dr. Anderson on 09-01-2022 Urea nitrogen [Mass/Vol] 9 mg/dL 7-18 [facility] Squamous epithelial cells de tection in urine sediment by light microscopyOrdered By: Dr. Anderson on 09-01-2022 Epithelial cells.squamous LM Ql (Urine sed) 0 SEEN /hpf 5-10 [facility] Thin prep Papanicolaou smear with manual screeningOrdered By: Dr. Anderson on 09-01-2022 Thin prep Papanicolaou smear with manual screening 4 5-15 [facility] Urine blood detectionOrdered By: Dr. Anderson on 09-01-2022 RBC Ql (U) Negative Negative [facility] RBC Ql (U) 0 SEEN /hpf 0-5 [facility] Urine clarityOrdered By: Dr. Anderson on 09-01-2022 Clarity (U) Sl. Cloudy Clear [facility] Urine color determinationOrd ered By: Dr. Anderson on 09-01-2022 Color (U) Yellow Yellow [facility] Urine glucose detectionOrder ed By: Dr. Anderson on 09-01-2022 Glucose Ql (U) Normal mg/dl Normal [facility] Urine leukocyte esterase det ection by dipstickOrdered By: Dr. Anderson on 09-01-2022 Leukocyte esterase Test strip Ql (U) Negative Negative [facility] Urine pHOrdered By: Dr. Andres owen on 09-01-2022 pH (U) 7.0 [pH] 5.0 - 8.0 [facility] Urine sediment bacteria coun t by microscopy (number/high power field)Ordered By: Dr. Anderson on 09-01-2022 Bacteria LM.HPF (Urine sed) [#/Area] 0 /[HPF] None Seen [facility] Urine specific gravity measu rementOrdered By: Dr. Anderson on 09-01-2022 Specific gravity (U) [Rel density] 1.010 1.002-1.030 [facility] Urobilinogen Auto test strip Ql (U)Ordered By: Dr. Anderson on 09-01-2022 Urobilinogen Ql (U) Normal mg/dl Normal [facility] Absolute lymphocyte countOrd ered By: Dr. Anderson on 08-25-2022 Lymphocytes Auto (Unsp spec) [#/Vol] 2.57 10*3/uL 0.83-4.51 [facility] Basophil percentageOrdered B y: Dr. Anderson on 08-25-2022 Basophil percentage 87 mg/dL 74-106 [facility] Basophil percentage 143 mmol/L 136-145 [facility] Basophil percentage 4.4 mmol/L 3.5-5.1 [facility] Basophil percentage 109 mmol/L 98-107 [facility] Basophils (Bld) [#/Vol] 6.0 10*3/uL 4.4-11.0 [facility] Basophils (Bld) [#/Vol] 2.2 10*3/uL 2.0-7.7 [facility] Basophils/100 WBC (Bld) 36.4 % 47-70 [facility] Basophils/100 WBC (Bld) 7.6 % 0-5 [facility] Basophils/100 WBC (Bld) 0.8 % 0-1 [facility] Basophil percentageOrdered B y: Claudia Anderson on 08-25-2022 Chloride [Moles/Vol] 109 mmol/L 98-107 [facility] Eosinophils/100 WBC (Bld) 7.6 % 0-5 [facility] Glucose [Mass/Vol] 87 mg/dL 74-106 [facility] Neutrophils (Bld) [#/Vol] 2.2 10*3/uL 2.0-7.7 [facility] Neutrophils/100 WBC (Bld) 36.4 % 47-70 [facility] Potassium [Moles/Vol] 4.4 mmol/L 3.5-5.1 [facility] Sodium [Moles/Vol] 143 mmol/L 136-145 [facility] WBC (Bld) [#/Vol] 6.0 10*3/uL 4.4-11.0 [facility] Blood erythrocytes count (nu mber/volume)Ordered By: Dr. Anderson on 08-25-2022 RBC (Bld) [#/Vol] 3.56 10*6/uL 4.2-5.4 [facility] Blood hemoglobin measurement (mass/volume)Ordered By: Dr. Anderson on 08-25-2022 Hemoglobin (Bld) [Mass/Vol] 11.1 g/dL 12.0-15.0 [facility] Blood lymphocytes/100 leukoc ytesOrdered By: Dr. Anderson on 08-25-2022 Lymphocytes/100 WBC (Bld) 43.1 % 19-41 [facility] Blood monocytes/100 leukocyt esOrdered By: Dr. Anderson on 08-25-2022 Monocytes/100 WBC (Bld) 11.9 % 0-10 [facility] Blood platelet mean volumeOr dered By: Dr. Anderson on 08-25-2022 Platelet mean volume (Bld) [Entitic vol] 9.5 fL 6.2-12.0 [facility] Determination of erythrocyte mean corpuscular volume (MCV)Ordered By: Dr. Anderson on 08-25-2022 MCV (RBC) [Entitic vol] 101.7 fL 81-99 [facility] Hematocrit Auto (Bld) [Volum e fraction]Ordered By: Dr. Anderson on 08-25-2022 Hematocrit (Bld) [Volume fraction] 36.2 % 37-47 [facility] - Chemistry and C hemistry - challengeOrdered By: Claudia Anderson on 08-25-2022 CO2 [Moles/Vol] 29.0 mmol/L 21.0-32.0 [facility] Urea nitrogen/Creatinine [Mass ratio] 14.0 mg/mg 10-20 [facility] - Hematology and Cell countsOrdered By: Claudia Anderson on 08-25-2022 Erythrocyte distribution width (RBC) [Entitic vol] 50.3 fL 35.1-43.9 [facility] Erythrocyte distribution width (RBC) [Ratio] 13.4 % 11.6-14.6 [facility] Immature granulocytes/100 WBC (Bld) 0.200 % 0.0-0.9 [facility] Comment on above: IG% - Immature Granu locytes (promyelocytes, myelocytes and metamyelocytes) > 1% indicates that a LEFT SHIFT is Present. MCH (RBC) [Entitic mass] 31.2 pg 27.0-32.0 [facility] Nucleated RBC/100 [facility]Bld) [[facility]] 0 [facility] [Mass/Vol]Or dered By: Dr. Anderson on 08-25-2022 MCHC (RBC) [Mass/Vol] 30.7 g/dL 32-36 [facility] No Panel InformationOrdered By: Claudia Anderson on 08-25-2022 Estimated GFR (MDRD) Amer 84 mL/min >60 [facility] Comment on above: GFR Calc Estimated GFR (MDRD) Non-Af Amer 70 mL/min >60 [facility] Comment on above: Non- GFR Calc No Panel InformationOrdered By: Dr. Anderson on 08-25-2022 31.2 pg 27.0-32.0 [facility] 13.4 % 11.6-14.6 [facility] 50.3 fl 35.1-43.9 [facility] 0.200 % 0.0-0.9 [facility] 0 % 0-5 [facility] 70 mL/min >60 [facility] 84 mL/min >60 [facility] 14.0 RATIO 10-20 [facility] 29.0 mmol/L 21.0-32.0 [facility] Platelets bldOrdered By: Dr. Anderson on 08-25-2022 Platelets (Bld) [#/Vol] 254 10*3/uL 150-450 [facility] Serum or plasma calcium moriah urement (mass/volume)Ordered By: Dr. Anderson on 08-25-2022 Calcium [Mass/Vol] 8.5 mg/dL 8.5-10.1 [facility] Serum or plasma creatinine m easurement (mass/volume)Ordered By: Dr. Anderson on 08-25-2022 Creatinine [Mass/Vol] 0.86 mg/dL 0.55-1.02 [facility] Comment on above: The validity of the calculated GFR & GFRAA in patients over 70 years has not been determined. Clinical correlation is essential. Serum or plasma urea nitroge n measurement (mass/volume)Ordered By: Dr. Anderson on 08-25-2022 Urea nitrogen [Mass/Vol] 12 mg/dL 7-18 [facility] Thin prep Papanicolaou smear with manual screeningOrdered By: Dr. Anderson on 08-25-2022 Thin prep Papanicolaou smear with manual screening 5 5-15 [facility] Absolute lymphocyte countOrd ered By: Dr. Anderson on 08-18-2022 Lymphocytes Auto (Unsp spec) [#/Vol] 2.79 10*3/uL 0.83-4.51 [facility] Basophil percentageOrdered B y: Dr. Anderson on 08-18-2022 Basophil percentage 91 mg/dL 74-106 [facility] Basophil percentage 140 mmol/L 136-145 [facility] Basophil percentage 4.0 mmol/L 3.5-5.1 [facility] Basophil percentage 106 mmol/L 98-107 [facility] Basophils (Bld) [#/Vol] 5.9 10*3/uL 4.4-11.0 [facility] Basophils (Bld) [#/Vol] 1.9 10*3/uL 2.0-7.7 [facility] Basophils/100 WBC (Bld) 32.8 % 47-70 [facility] Basophils/100 WBC (Bld) 6.8 % 0-5 [facility] Basophils/100 WBC (Bld) 1.0 % 0-1 [facility] Basophil percentageOrdered B y: Claudia Anderson on 08-18-2022 Chloride [Moles/Vol] 106 mmol/L 98-107 [facility] Eosinophils/100 WBC (Bld) 6.8 % 0-5 [facility] Glucose [Mass/Vol] 91 mg/dL 74-106 [facility] Neutrophils (Bld) [#/Vol] 1.9 10*3/uL 2.0-7.7 [facility] Neutrophils/100 WBC (Bld) 32.8 % 47-70 [facility] Potassium [Moles/Vol] 4.0 mmol/L 3.5-5.1 [facility] Sodium [Moles/Vol] 140 mmol/L 136-145 [facility] WBC (Bld) [#/Vol] 5.9 10*3/uL 4.4-11.0 [facility] Blood erythrocytes count (nu mber/volume)Ordered By: Dr. Anderson on 08-18-2022 RBC (Bld) [#/Vol] 3.57 10*6/uL 4.2-5.4 [facility] Blood hemoglobin measurement (mass/volume)Ordered By: Dr. Anderson on 08-18-2022 Hemoglobin (Bld) [Mass/Vol] 11.0 g/dL 12.0-15.0 [facility] Blood lymphocytes/100 leukoc ytesOrdered By: Dr. Anderson on 08-18-2022 Lymphocytes/100 WBC (Bld) 47.2 % 19-41 [facility] Blood monocytes/100 leukocyt esOrdered By: Dr. Anderson on 08-18-2022 Monocytes/100 WBC (Bld) 12.0 % 0-10 [facility] Blood platelet mean volumeOr dered By: Dr. Anderson on 08-18-2022 Platelet mean volume (Bld) [Entitic vol] 9.8 fL 6.2-12.0 [facility] Determination of erythrocyte mean corpuscular volume (MCV)Ordered By: Dr. Anderson on 08-18-2022 MCV (RBC) [Entitic vol] 101.7 fL 81-99 [facility] Hematocrit Auto (Bld) [Volum e fraction]Ordered By: Dr. Anderson on 08-18-2022 Hematocrit (Bld) [Volume fraction] 36.3 % 37-47 [facility] Laboratory - Chemistry and C hemistry - challengeOrdered By: Claudia Anderson on 08-18-2022 CO2 [Moles/Vol] 30.0 mmol/L 21.0-32.0 [facility] Urea nitrogen/Creatinine [Mass ratio] 20.5 mg/mg 10-20 [facility] - Hematology and Cell countsOrdered By: Claudia Anderson on 08-18-2022 Erythrocyte distribution width (RBC) [Entitic vol] 48.7 fL 35.1-43.9 [facility] Erythrocyte distribution width (RBC) [Ratio] 13.0 % 11.6-14.6 [facility] Immature granulocytes/100 WBC (Bld) 0.200 % 0.0-0.9 [facility] Comment on above: IG% - Immature Granu locytes (promyelocytes, myelocytes and metamyelocytes) > 1% indicates that a LEFT SHIFT is Present. MCH (RBC) [Entitic mass] 30.8 pg 27.0-32.0 [facility] Nucleated RBC/100 WBC (Bld) [Ratio] 0 % 0-5 [facility] MCHC Auto (RBC) [Mass/Vol]Or dered By: Dr. Anderson on 08-18-2022 MCHC (RBC) [Mass/Vol] 30.3 g/dL 32-36 [facility] No Panel InformationOrdered By: Claudia Anderson on 08-18-2022 Estimated GFR (MDRD) Amer 87 mL/min >60 [facility] Comment on above: GFR Calc Estimated GFR (MDRD) Non-Af Amer 72 mL/min >60 [facility] Comment on above: Non- GFR Calc No Panel InformationOrdered By: Dr. Anderson on 08-18-2022 30.8 pg 27.0-32.0 [facility] 13.0 % 11.6-14.6 [facility] 48.7 fl 35.1-43.9 [facility] 0.200 % 0.0-0.9 [facility] 0 % 0-5 [facility] 72 mL/min >60 [facility] 87 mL/min >60 [facility] 20.5 RATIO 10-20 [facility] 30.0 mmol/L 21.0-32.0 [facility] Platelets bldOrdered By: Dr. Anderson on 08-18-2022 Platelets (Bld) [#/Vol] 249 10*3/uL 150-450 [facility] Serum or plasma calcium moriah urement (mass/volume)Ordered By: Dr. Anderson on 08-18-2022 Calcium [Mass/Vol] 8.5 mg/dL 8.5-10.1 [facility] Serum or plasma creatinine m easurement (mass/volume)Ordered By: Dr. Anderson on 08-18-2022 Creatinine [Mass/Vol] 0.83 mg/dL 0.55-1.02 [facility] Comment on above: The validity of the calculated GFR & GFRAA in patients over 70 years has not been determined. Clinical correlation is essential. Serum or plasma urea nitroge n measurement (mass/volume)Ordered By: Dr. Anderson on 08-18-2022 Urea nitrogen [Mass/Vol] 17 mg/dL 7-18 [facility] Thin prep Papanicolaou smear with manual screeningOrdered By: Dr. Anderson on 08-18-2022 Thin prep Papanicolaou smear with manual screening 4 5-15 [facility] Absolute lymphocyte countOrd ered By: Dr. Anderson on 08-11-2022 Lymphocytes Auto (Unsp spec) [#/Vol] 2.41 10*3/uL 0.83-4.51 [facility] Basophil percentageOrdered B y: Dr. Anderson on 08-11-2022 Basophil percentage 89 mg/dL 74-106 [facility] Basophil percentage 141 mmol/L 136-145 [facility] Basophil percentage 4.5 mmol/L 3.5-5.1 [facility] Basophil percentage 108 mmol/L 98-107 [facility] Basophils (Bld) [#/Vol] 5.7 10*3/uL 4.4-11.0 [facility] Basophils (Bld) [#/Vol] 2.3 10*3/uL 2.0-7.7 [facility] Basophils/100 WBC (Bld) 39.6 % 47-70 [facility] Basophils/100 WBC (Bld) 5.1 % 0-5 [facility] Basophils/100 WBC (Bld) 1.1 % 0-1 [facility] Basophil percentageOrdered B y: Claudia Anderson on 08-11-2022 Chloride [Moles/Vol] 108 mmol/L 98-107 [facility] Eosinophils/100 WBC (Bld) 5.1 % 0-5 [facility] Glucose [Mass/Vol] 89 mg/dL 74-106 [facility] Neutrophils (Bld) [#/Vol] 2.3 10*3/uL 2.0-7.7 [facility] Neutrophils/100 WBC (Bld) 39.6 % 47-70 [facility] Potassium [Moles/Vol] 4.5 mmol/L 3.5-5.1 [facility] Sodium [Moles/Vol] 141 mmol/L 136-145 [facility] WBC (Bld) [#/Vol] 5.7 10*3/uL 4.4-11.0 [facility] Blood erythrocytes count (nu mber/volume)Ordered By: Dr. Anderson on 08-11-2022 RBC (Bld) [#/Vol] 3.81 10*6/uL 4.2-5.4 [facility] Blood hemoglobin measurement (mass/volume)Ordered By: Dr. Anderson on 08-11-2022 Hemoglobin (Bld) [Mass/Vol] 12.0 g/dL 12.0-15.0 [facility] Blood lymphocytes/100 leukoc ytesOrdered By: Dr. Anderson on 08-11-2022 Lymphocytes/100 WBC (Bld) 42.5 % 19-41 [facility] Blood monocytes/100 leukocyt esOrdered By: Dr. Anderson on 08-11-2022 Monocytes/100 WBC (Bld) 11.5 % 0-10 [facility] Blood platelet mean volumeOr dered By: Dr. Anderson on 08-11-2022 Platelet mean volume (Bld) [Entitic vol] 9.7 fL 6.2-12.0 [facility] Determination of erythrocyte mean corpuscular volume (MCV)Ordered By: Dr. Anderson on 08-11-2022 MCV (RBC) [Entitic vol] 101.6 fL 81-99 [facility] Hematocrit Auto (Bld) [Volum e fraction]Ordered By: Dr. Anderson on 08-11-2022 Hematocrit (Bld) [Volume fraction] 38.7 % 37-47 [facility] Laboratory - Chemistry and C hemistry - challengeOrdered By: Claudia Anderson on 08-11-2022 CO2 [Moles/Vol] 28.0 mmol/L 21.0-32.0 [facility] Urea nitrogen/Creatinine [Mass ratio] 17.7 mg/mg 10-20 [facility] - Hematology and Cell countsOrdered By: Claudia Anderson on 05-24-2023 Erythrocyte distribution width (RBC) [Entitic vol] 48.9 fL 35.1-43.9 [facility] Erythrocyte distribution width (RBC) [Ratio] 13.0 % 11.6-14.6 [facility] Immature granulocytes/100 WBC (Bld) 0.200 % 0.0-0.9 [facility] Comment on above: IG% - Immature Granu locytes (promyelocytes, myelocytes and metamyelocytes) > 1% indicates that a LEFT SHIFT is Present. MCH (RBC) [Entitic mass] 31.5 pg 27.0-32.0 [facility] Nucleated RBC/100 WBC (Bld) [Ratio] 0 % 0-5 [facility] MCHC Auto (RBC) [Mass/Vol]Or dered By: Dr. Anderson on 08-11-2022 MCHC (RBC) [Mass/Vol] 31.0 g/dL 32-36 [facility] No Panel InformationOrdered By: Claudia Anderson on 08-11-2022 Estimated GFR (MDRD) Amer 92 mL/min >60 [facility] Comment on above: GFR Calc Estimated GFR (MDRD) Non-Af Amer 76 mL/min >60 [facility] Comment on above: Non- GFR Calc No Panel InformationOrdered By: Dr. Anderson on 08-11-2022 31.5 pg 27.0-32.0 [facility] 13.0 % 11.6-14.6 [facility] 48.9 fl 35.1-43.9 [facility] 0.200 % 0.0-0.9 [facility] 0 % 0-5 [facility] 76 mL/min >60 [facility] 92 mL/min >60 [facility] 17.7 RATIO 10-20 [facility] 28.0 mmol/L 21.0-32.0 [facility] Platelets bldOrdered By: Dr. Anderson on 08-11-2022 Platelets (Bld) [#/Vol] 253 10*3/uL 150-450 [facility] Serum or plasma calcium moriah urement (mass/volume)Ordered By: Dr. Anderosn on 08-11-2022 Calcium [Mass/Vol] 8.7 mg/dL 8.5-10.1 [facility] Serum or plasma creatinine m easurement (mass/volume)Ordered By: Dr. Anderson on 08-11-2022 Creatinine [Mass/Vol] 0.79 mg/dL 0.55-1.02 [facility] Comment on above: The validity of the calculated GFR & GFRAA in patients over 70 years has not been determined. Clinical correlation is essential. Serum or plasma urea nitroge n measurement (mass/volume)Ordered By: Dr. Anderson on 08-11-2022 Urea nitrogen [Mass/Vol] 14 mg/dL 7-18 [facility] Thin prep Papanicolaou smear with manual screeningOrdered By: Dr. Anderson on 08-11-2022 Thin prep Papanicolaou smear with manual screening 5 5-15 [facility] Basophil percentageOrdered B y: Medardo Mayo on 08-10-2022 Ammonia (P) [Moles/Vol] 56.0 umol/L [facility] Basophil percentage 6.0 g/dL 6.4-8.2 [facility] Basophil percentage 0.20 mg/dL 0.20-1.00 [facility] Basophil percentage 56.0 umol/L [facility] Bilirubin [Mass/Vol] 0.20 mg/dL 0.20-1.00 [facility] Comment on above: For patients on eltr ombopag therapy, use of Dimension [place] TBIL is not recommended. Protein [Mass/Vol] 6.0 g/dL 6.4-8.2 [facility] Direct bilirubinOrdered By: Medardo Mayo on 08-10-2022 Bilirubin.direct [Mass/Vol] 0.07 mg/dL 0.00-0.30 [facility] - Chemistry and C hemistry - challengeOrdered By: Medardo Mayo on 08-10-2022 ALP [Catalytic activity/Vol] 76 U/L 45-117 [facility] ALT [Catalytic activity/Vol] 11 U/L 13-56 [facility] Globulin (S) [Mass/Vol] 3.3 g/dL 2.2-4.2 [facility] No Panel InformationOrdered By: Medardo Mayo on 08-10-2022 Valproic Acid (Depakene) Level 29 ug/mL 50-100 [facility] Whole Blood Vitamin B1 Level 94.0 nmol/L 66.5-200.0 [facility] Comment on above: Performed at: - [address] [id number] Director: Marino Mckeon MD, Phone: [phone] 3.3 g/dL 2.2-4.2 [facility] 76 U/L 45-117 [facility] 11 U/L 13-56 [facility] 29 ug/mL 50-100 [facility] 94.0 nmol/L 66.5-200.0 [facility] Serum or plasma albumin moriah urement (mass/volume)Ordered By: Medardo Mayo on 08-10-2022 Albumin [Mass/Vol] 2.7 g/dL 3.2-5.0 [facility] Serum or plasma folate measu rement (mass/volume)Ordered By: Medardo Mayo on 08-10-2022 Folate [Mass/Vol] 2.60 ng/mL 3.1-55.4 [facility] Serum or plasma phenobarbita l detectionOrdered By: Medardo Mayo on 08-10-2022 PHENobarbital Ql 19 ug/mL 15-40 [facility] Comment on above: Detection Limit = 3 Serum or plasma primidone me asurement (mass/volume)Ordered By: Medardo Mayo on 08-10-2022 Primidone [Mass/Vol] 7.1 ug/mL 5.0-12.0 [facility] Comment on above: Detection Limit = 0. 3 <0.3 indicates None Detected Thin prep Papanicolaou smear with manual screeningOrdered By: Medardo Mayo on 08-10-2022 Thin prep Papanicolaou smear with manual screening 13 U/L 15-37 [facility] Absolute lymphocyte countOrd ered By: Dr. Anderson on 08-04-2022 Lymphocytes Auto (Unsp spec) [#/Vol] 2.98 10*3/uL 0.83-4.51 [facility] Basophil percentageOrdered B y: Dr. Anderson on 08-04-2022 Basophil percentage 78 mg/dL 74-106 [facility] Basophil percentage 140 mmol/L 136-145 [facility] Basophil percentage 4.7 mmol/L 3.5-5.1 [facility] Basophil percentage 107 mmol/L 98-107 [facility] Basophils (Bld) [#/Vol] 7.0 10*3/uL 4.4-11.0 [facility] Basophils (Bld) [#/Vol] 2.7 10*3/uL 2.0-7.7 [facility] Basophils/100 WBC (Bld) 37.7 % 47-70 [facility] Basophils/100 WBC (Bld) 7.3 % 0-5 [facility] Basophils/100 WBC (Bld) 0.9 % 0-1 [facility] Basophil percentageOrdered B y: Claudia Anderson on 08-04-2022 Chloride [Moles/Vol] 107 mmol/L 98-107 [facility] Eosinophils/100 WBC (Bld) 7.3 % 0-5 [facility] Glucose [Mass/Vol] 78 mg/dL 74-106 [facility] Neutrophils (Bld) [#/Vol] 2.7 10*3/uL 2.0-7.7 [facility] Neutrophils/100 WBC (Bld) 37.7 % 47-70 [facility] Potassium [Moles/Vol] 4.7 mmol/L 3.5-5.1 [facility] Sodium [Moles/Vol] 140 mmol/L 136-145 [facility] WBC (Bld) [#/Vol] 7.0 10*3/uL 4.4-11.0 [facility] Blood erythrocytes count (nu mber/volume)Ordered By: Dr. Anderson on 08-04-2022 RBC (Bld) [#/Vol] 3.90 10*6/uL 4.2-5.4 [facility] Blood hemoglobin measurement (mass/volume)Ordered By: Dr. Anderson on 08-04-2022 Hemoglobin (Bld) [Mass/Vol] 12.3 g/dL 12.0-15.0 [facility] Blood lymphocytes/100 leukoc ytesOrdered By: Dr. Anderson on 08-04-2022 Lymphocytes/100 WBC (Bld) 42.5 % 19-41 [facility] Blood monocytes/100 leukocyt esOrdered By: Dr. Anderson on 08-04-2022 Monocytes/100 WBC (Bld) 11.3 % 0-10 [facility] Blood platelet mean volumeOr dered By: Dr. Anderson on 08-04-2022 Platelet mean volume (Bld) [Entitic vol] 10.0 fL 6.2-12.0 [facility] Determination of erythrocyte mean corpuscular volume (MCV)Ordered By: Dr. Anderson on 08-04-2022 MCV (RBC) [Entitic vol] 100.8 fL 81-99 [facility] Hematocrit Auto (Bld) [Volum e fraction]Ordered By: Dr. Anderson on 08-04-2022 Hematocrit (Bld) [Volume fraction] 39.3 % 37-47 [facility] - Chemistry and C hemistry - challengeOrdered By: Claudia Anderson on 08-04-2022 CO2 [Moles/Vol] 29.0 mmol/L 21.0-32.0 [facility] Urea nitrogen/Creatinine [Mass ratio] 22.9 mg/mg 10-20 [facility] - Hematology and Cell countsOrdered By: Claudia Anderson on 08-04-2022 Erythrocyte distribution width (RBC) [Entitic vol] 48.8 fL 35.1-43.9 [facility] Erythrocyte distribution width (RBC) [Ratio] 13.2 % 11.6-14.6 [facility] Immature granulocytes/100 WBC (Bld) 0.300 % 0.0-0.9 [facility] Comment on above: IG% - Immature Granu locytes (promyelocytes, myelocytes and metamyelocytes) > 1% indicates that a LEFT SHIFT is Present. MCH (RBC) [Entitic mass] 31.5 pg 27.0-32.0 [facility] Nucleated RBC/100 WBC (Bld) [Ratio] 0 % 0-5 [facility] MCHC Auto (RBC) [Mass/Vol]Or dered By: Dr. Anderson on 08-04-2022 MCHC (RBC) [Mass/Vol] 31.3 g/dL 32-36 [facility] No Panel InformationOrdered By: Claudia Anderson on 08-04-2022 Estimated GFR (MDRD) Amer 107 mL/min >60 [facility] Comment on above: GFR Calc Estimated GFR (MDRD) Non-Af Amer 88 mL/min >60 [facility] Comment on above: Non- GFR Calc No Panel InformationOrdered By: Dr. Anderson on 08-04-2022 31.5 pg 27.0-32.0 [facility] 13.2 % 11.6-14.6 [facility] 48.8 fl 35.1-43.9 [facility] 0.300 % 0.0-0.9 [facility] 0 % 0-5 [facility] 88 mL/min >60 [facility] 107 mL/min >60 [facility] 22.9 RATIO 10-20 [facility] 29.0 mmol/L 21.0-32.0 [facility] Platelets bldOrdered By: Dr. Anderson on 08-04-2022 Platelets (Bld) [#/Vol] 280 10*3/uL 150-450 [facility] Serum or plasma calcium moriah urement (mass/volume)Ordered By: Dr. Anderson on 08-04-2022 Calcium [Mass/Vol] 8.5 mg/dL 8.5-10.1 [facility] Serum or plasma creatinine m easurement (mass/volume)Ordered By: Dr. Anderson on 08-04-2022 Creatinine [Mass/Vol] 0.70 mg/dL 0.55-1.02 [facility] Comment on above: The validity of the calculated GFR & GFRAA in patients over 70 years has not been determined. Clinical correlation is essential. Serum or plasma urea nitroge n measurement (mass/volume)Ordered By: Dr. Anderson on 08-04-2022 Urea nitrogen [Mass/Vol] 16 mg/dL 7-18 [facility] Thin prep Papanicolaou smear with manual screeningOrdered By: Dr. Anderson on 08-04-2022 Thin prep Papanicolaou smear with manual screening 4 5-15 [facility] Absolute lymphocyte countOrd ered By: Dr. Anderson on 07-28-2022 Lymphocytes Auto (Unsp spec) [#/Vol] 2.06 10*3/uL 0.83-4.51 [facility] Basophil percentageOrdered B y: Dr. Anderson on 07-28-2022 Basophil percentage 78 mg/dL 74-106 [facility] Basophil percentage 142 mmol/L 136-145 [facility] Basophil percentage 4.2 mmol/L 3.5-5.1 [facility] Basophil percentage 106 mmol/L 98-107 [facility] Basophils (Bld) [#/Vol] 8.0 10*3/uL 4.4-11.0 [facility] Basophils (Bld) [#/Vol] 4.7 10*3/uL 2.0-7.7 [facility] Basophils/100 WBC (Bld) 58.9 % 47-70 [facility] Basophils/100 WBC (Bld) 5.0 % 0-5 [facility] Basophils/100 WBC (Bld) 0.5 % 0-1 [facility] Basophil percentageOrdered B y: Claudia Anderson on 07-28-2022 Chloride [Moles/Vol] 106 mmol/L 98-107 [facility] Eosinophils/100 WBC (Bld) 5.0 % 0-5 [facility] Glucose [Mass/Vol] 78 mg/dL 74-106 [facility] Neutrophils (Bld) [#/Vol] 4.7 10*3/uL 2.0-7.7 [facility] Neutrophils/100 WBC (Bld) 58.9 % 47-70 [facility] Potassium [Moles/Vol] 4.2 mmol/L 3.5-5.1 [facility] Sodium [Moles/Vol] 142 mmol/L 136-145 [facility] WBC (Bld) [#/Vol] 8.0 10*3/uL 4.4-11.0 [facility] Blood erythrocytes count (nu mber/volume)Ordered By: Dr. Anderson on 07-28-2022 RBC (Bld) [#/Vol] 3.84 10*6/uL 4.2-5.4 [facility] Blood hemoglobin measurement (mass/volume)Ordered By: Dr. Anderson on 07-28-2022 Hemoglobin (Bld) [Mass/Vol] 11.9 g/dL 12.0-15.0 [facility] Blood lymphocytes/100 leukoc ytesOrdered By: Dr. Anderson on 07-28-2022 Lymphocytes/100 WBC (Bld) 25.8 % 19-41 [facility] Blood monocytes/100 leukocyt esOrdered By: Dr. Anderson on 07-28-2022 Monocytes/100 WBC (Bld) 9.5 % 0-10 [facility] Blood platelet mean volumeOr dered By: Dr. Anderson on 07-28-2022 Platelet mean volume (Bld) [Entitic vol] 9.8 fL 6.2-12.0 [facility] Determination of erythrocyte mean corpuscular volume (MCV)Ordered By: Dr. Anderson on 07-28-2022 MCV (RBC) [Entitic vol] 102.6 fL 81-99 [facility] Hematocrit Auto (Bld) [Volum e fraction]Ordered By: Dr. Anderson on 07-28-2022 Hematocrit (Bld) [Volume fraction] 39.4 % 37-47 [facility] - Chemistry and C hemistry - challengeOrdered By: Claudia Anderson on 07-28-2022 CO2 [Moles/Vol] 31.0 mmol/L 21.0-32.0 [facility] Urea nitrogen/Creatinine [Mass ratio] 22.5 mg/mg 10-20 [facility] - Hematology and Cell countsOrdered By: Claudia Anderson on 07-28-2022 Erythrocyte distribution width (RBC) [Entitic vol] 48.7 fL 35.1-43.9 [facility] Erythrocyte distribution width (RBC) [Ratio] 13.0 % 11.6-14.6 [facility] Immature granulocytes/100 WBC (Bld) 0.300 % 0.0-0.9 [facility] Comment on above: IG% - Immature Granu locytes (promyelocytes, myelocytes and metamyelocytes) > 1% indicates that a LEFT SHIFT is Present. MCH (RBC) [Entitic mass] 31.0 pg 27.0-32.0 [facility] Nucleated RBC/100 WBC (Bld) [Ratio] 0 % 0-5 [facility] Auto (RBC) [Mass/Vol]Or dered By: Dr. Anderson on 07-28-2022 MCHC (RBC) [Mass/Vol] 30.2 g/dL 32-36 [facility] No Panel InformationOrdered By: Claudia Anderson on 07-28-2022 Estimated GFR (MDRD) Amer 85 mL/min >60 [facility] Comment on above: GFR Calc Estimated GFR (MDRD) Non-Af Amer 71 mL/min >60 [facility] Comment on above: Non- GFR Calc No Panel InformationOrdered By: Dr. Anderson on 07-28-2022 31.0 pg 27.0-32.0 [facility] 13.0 % 11.6-14.6 [facility] 48.7 fl 35.1-43.9 [facility] 0.300 % 0.0-0.9 [facility] 0 % 0-5 [facility] 71 mL/min >60 [facility] 85 mL/min >60 [facility] 22.5 RATIO 10-20 [facility] 31.0 mmol/L 21.0-32.0 [facility] Platelets bldOrdered By: Dr. Anderson on 07-28-2022 Platelets (Bld) [#/Vol] 246 10*3/uL 150-450 [facility] Serum or plasma calcium moriah urement (mass/volume)Ordered By: Dr. Anderson on 07-28-2022 Calcium [Mass/Vol] 8.7 mg/dL 8.5-10.1 [facility] Serum or plasma creatinine m easurement (mass/volume)Ordered By: Dr. Anderson on 07-28-2022 Creatinine [Mass/Vol] 0.85 mg/dL 0.55-1.02 [facility] Comment on above: The validity of the calculated GFR & GFRAA in patients over 70 years has not been determined. Clinical correlation is essential. Serum or plasma urea nitroge n measurement (mass/volume)Ordered By: Dr. Anderson on 07-28-2022 Urea nitrogen [Mass/Vol] 19 mg/dL 7-18 [facility] Thin prep Papanicolaou smear with manual screeningOrdered By: Dr. Anderson on 07-28-2022 Thin prep Papanicolaou smear with manual screening 5 5-15 [facility] Absolute lymphocyte countOrd ered By: Dr. Anderson on 07-21-2022 Lymphocytes Auto (Unsp spec) [#/Vol] 2.90 10*3/uL 0.83-4.51 [facility] Basophil percentageOrdered B y: Dr. Anderson on 07-21-2022 Basophil percentage 90 mg/dL 74-106 [facility] Basophil percentage 140 mmol/L 136-145 [facility] Basophil percentage 4.4 mmol/L 3.5-5.1 [facility] Basophil percentage 109 mmol/L 98-107 [facility] Basophils (Bld) [#/Vol] 8.0 10*3/uL 4.4-11.0 [facility] Basophils (Bld) [#/Vol] 3.5 10*3/uL 2.0-7.7 [facility] Basophils/100 WBC (Bld) 0.5 % 0-1 [facility] Basophils/100 WBC (Bld) 44.4 % 47-70 [facility] Basophils/100 WBC (Bld) 6.7 % 0-5 [facility] Chloride [Moles/Vol] 109 mmol/L 98-107 [facility] Eosinophils/100 WBC (Bld) 6.7 % 0-5 [facility] Glucose [Mass/Vol] 90 mg/dL 74-106 [facility] Neutrophils (Bld) [#/Vol] 3.5 10*3/uL 2.0-7.7 [facility] Neutrophils/100 WBC (Bld) 44.4 % 47-70 [facility] Potassium [Moles/Vol] 4.4 mmol/L 3.5-5.1 [facility] Sodium [Moles/Vol] 140 mmol/L 136-145 [facility] WBC (Bld) [#/Vol] 8.0 10*3/uL 4.4-11.0 [facility] Blood erythrocytes count (nu mber/volume)Ordered By: Dr. Anderson on 07-21-2022 RBC (Bld) [#/Vol] 3.77 10*6/uL 4.2-5.4 [facility] Blood hemoglobin measurement (mass/volume)Ordered By: Dr. Anderson on 07-21-2022 Hemoglobin (Bld) [Mass/Vol] 11.7 g/dL 12.0-15.0 [facility] Blood lymphocytes/100 leukoc ytesOrdered By: Dr. Anderson on 07-21-2022 Lymphocytes/100 WBC (Bld) 36.5 % 19-41 [facility] Blood monocytes/100 leukocyt esOrdered By: Dr. Anderson on 07-21-2022 Monocytes/100 WBC (Bld) 11.6 % 0-10 [facility] Blood platelet mean volumeOr dered By: Dr. Anderson on 07-21-2022 Platelet mean volume (Bld) [Entitic vol] 9.9 fL 6.2-12.0 [facility] Determination of erythrocyte mean corpuscular volume (MCV)Ordered By: Dr. Anderson on 07-21-2022 MCV (RBC) [Entitic vol] 102.4 fL 81-99 [facility] Hematocrit Auto (Bld) [Volum e fraction]Ordered By: Dr. Anderson on 07-21-2022 Hematocrit (Bld) [Volume fraction] 38.6 % 37-47 [facility] - Chemistry and C hemistry - challengeOrdered By: Dr. Anderson on 07-21-2022 CO2 [Moles/Vol] 29.0 mmol/L 21.0-32.0 [facility] Urea nitrogen/Creatinine [Mass ratio] 27.6 mg/mg 10-20 [facility] - Hematology and Cell countsOrdered By: Dr. Anderson on 07-21-2022 Erythrocyte distribution width (RBC) [Entitic vol] 49.7 fL 35.1-43.9 [facility] Erythrocyte distribution width (RBC) [Ratio] 13.1 % 11.6-14.6 [facility] Immature granulocytes/100 WBC (Bld) 0.300 % 0.0-0.9 [facility] Comment on above: IG% - Immature Granu locytes (promyelocytes, myelocytes and metamyelocytes) > 1% indicates that a LEFT SHIFT is Present. MCH (RBC) [Entitic mass] 31.0 pg 27.0-32.0 [facility] Nucleated RBC/100 WBC (Bld) [Ratio] 0 % 0-5 [facility] MCHC Auto (RBC) [Mass/Vol]Or dered By: Dr. Adnerson on 07-21-2022 MCHC (RBC) [Mass/Vol] 30.3 g/dL 32-36 [facility] No Panel InformationOrdered By: Dr. Anderson on 07-21-2022 Estimated GFR (MDRD) Amer 97 mL/min >60 [facility] Comment on above: GFR Calc Estimated GFR (MDRD) Non-Af Amer 80 mL/min >60 [facility] Comment on above: Non- GFR Calc 31.0 pg 27.0-32.0 [facility] 13.1 % 11.6-14.6 [facility] 49.7 fl 35.1-43.9 [facility] 0.300 % 0.0-0.9 [facility] 0 % 0-5 [facility] 80 mL/min >60 [facility] 97 mL/min >60 [facility] 27.6 RATIO 10-20 [facility] 29.0 mmol/L 21.0-32.0 [facility] Platelets bldOrdered By: Dr. Anderson on 07-21-2022 Platelets (Bld) [#/Vol] 204 10*3/uL 150-450 [facility] Serum or plasma calcium moriah urement (mass/volume)Ordered By: Dr. Anderson on 07-21-2022 Calcium [Mass/Vol] 8.4 mg/dL 8.5-10.1 [facility] Serum or plasma creatinine m easurement (mass/volume)Ordered By: Dr. Andersno on 07-21-2022 Creatinine [Mass/Vol] 0.76 mg/dL 0.55-1.02 [facility] Comment on above: The validity of the calculated GFR & GFRAA in patients over 70 years has not been determined. Clinical correlation is essential. Serum or plasma urea nitroge n measurement (mass/volume)Ordered By: Dr. Anderson on 07-21-2022 Urea nitrogen [Mass/Vol] 21 mg/dL 7-18 [facility] Thin prep Papanicolaou smear with manual screeningOrdered By: Dr. Anderson on 07-21-2022 Thin prep Papanicolaou smear with manual screening 2 5-15 [facility] Absolute lymphocyte countOrd ered By: Dr. Anderson on 07-14-2022 Lymphocytes Auto (Unsp spec) [#/Vol] 3.15 10*3/uL 0.83-4.51 [facility] Basophil percentageOrdered B y: Dr. Anderson on 07-14-2022 Basophil percentage 83 mg/dL 74-106 [facility] Basophil percentage 137 mmol/L 136-145 [facility] Basophil percentage 4.5 mmol/L 3.5-5.1 [facility] Basophil percentage 107 mmol/L 98-107 [facility] Basophils (Bld) [#/Vol] 7.2 10*3/uL 4.4-11.0 [facility] Basophils (Bld) [#/Vol] 2.8 10*3/uL 2.0-7.7 [facility] Basophils/100 WBC (Bld) 1.0 % 0-1 [facility] Basophils/100 WBC (Bld) 38.6 % 47-70 [facility] Basophils/100 WBC (Bld) 6.4 % 0-5 [facility] Chloride [Moles/Vol] 107 mmol/L 98-107 [facility] Eosinophils/100 WBC (Bld) 6.4 % 0-5 [facility] Glucose [Mass/Vol] 83 mg/dL 74-106 [facility] Neutrophils (Bld) [#/Vol] 2.8 10*3/uL 2.0-7.7 [facility] Neutrophils/100 WBC (Bld) 38.6 % 47-70 [facility] Potassium [Moles/Vol] 4.5 mmol/L 3.5-5.1 [facility] Sodium [Moles/Vol] 137 mmol/L 136-145 [facility] WBC (Bld) [#/Vol] 7.2 10*3/uL 4.4-11.0 [facility] Blood erythrocytes count (nu mber/volume)Ordered By: Dr. Anderson on 07-14-2022 RBC (Bld) [#/Vol] 3.75 10*6/uL 4.2-5.4 [facility] Blood hemoglobin measurement (mass/volume)Ordered By: Dr. Anderson on 07-14-2022 Hemoglobin (Bld) [Mass/Vol] 11.8 g/dL 12.0-15.0 [facility] Blood lymphocytes/100 leukoc ytesOrdered By: Dr. Anderson on 07-14-2022 Lymphocytes/100 WBC (Bld) 43.8 % 19-41 [facility] Blood monocytes/100 leukocyt esOrdered By: Dr. Anderson on 07-14-2022 Monocytes/100 WBC (Bld) 9.9 % 0-10 [facility] Blood platelet mean volumeOr dered By: Dr. Anderson on 07-14-2022 Platelet mean volume (Bld) [Entitic vol] 9.6 fL 6.2-12.0 [facility] Determination of erythrocyte mean corpuscular volume (MCV)Ordered By: Dr. Anderson on 07-14-2022 MCV (RBC) [Entitic vol] 101.3 fL 81-99 [facility] Hematocrit Auto (Bld) [Volum e fraction]Ordered By: Dr. Anderson on 07-14-2022 Hematocrit (Bld) [Volume fraction] 38.0 % 37-47 [facility] Laboratory - Chemistry and C hemistry - challengeOrdered By: Dr. Anderson on 07-14-2022 CO2 [Moles/Vol] 31.0 mmol/L 21.0-32.0 [facility] Urea nitrogen/Creatinine [Mass ratio] 27.0 mg/mg 10-20 [facility] Laboratory - Hematology and Cell countsOrdered By: Dr. Anderson on 07-14-2022 Erythrocyte distribution width (RBC) [Entitic vol] 49.7 fL 35.1-43.9 [facility] Erythrocyte distribution width (RBC) [Ratio] 13.2 % 11.6-14.6 [facility] Immature granulocytes/100 WBC (Bld) 0.300 % 0.0-0.9 [facility] Comment on above: IG% - Immature Granu locytes (promyelocytes, myelocytes and metamyelocytes) > 1% indicates that a LEFT SHIFT is Present. MCH (RBC) [Entitic mass] 31.5 pg 27.0-32.0 [facility] Nucleated RBC/100 WBC (Bld) [Ratio] 0 % 0-5 [facility] MCHC Auto (RBC) [Mass/Vol]Or dered By: Dr. Anderson on 07-14-2022 MCHC (RBC) [Mass/Vol] 31.1 g/dL 32-36 [facility] No Panel InformationOrdered By: Dr. Anderson on 07-14-2022 Estimated GFR (MDRD) Amer 99 mL/min >60 [facility] Comment on above: GFR Calc Estimated GFR (MDRD) Non-Af Amer 82 mL/min >60 [facility] Comment on above: Non- GFR Calc 31.5 pg 27.0-32.0 [facility] 13.2 % 11.6-14.6 [facility] 49.7 fl 35.1-43.9 [facility] 0.300 % 0.0-0.9 [facility] 0 % 0-5 [facility] 82 mL/min >60 [facility] 99 mL/min >60 [facility] 27.0 RATIO 10-20 [facility] 31.0 mmol/L 21.0-32.0 [facility] Platelets bldOrdered By: Dr. Anderson on 07-14-2022 Platelets (Bld) [#/Vol] 252 10*3/uL 150-450 [facility] Serum or plasma calcium moriah urement (mass/volume)Ordered By: Dr. Anderson on 07-14-2022 Calcium [Mass/Vol] 8.6 mg/dL 8.5-10.1 [facility] Serum or plasma creatinine m easurement (mass/volume)Ordered By: Dr. Anderson on 07-14-2022 Creatinine [Mass/Vol] 0.74 mg/dL 0.55-1.02 [facility] Comment on above: The validity of the calculated GFR & GFRAA in patients over 70 years has not been determined. Clinical correlation is essential. Serum or plasma urea nitroge n measurement (mass/volume)Ordered By: Dr. Anderson on 07-14-2022 Urea nitrogen [Mass/Vol] 20 mg/dL 7-18 [facility] Thin prep Papanicolaou smear with manual screeningOrdered By: Dr. Anderson on 07-14-2022 Thin prep Papanicolaou smear with manual screening -1 5-15 [facility] Absolute lymphocyte countOrd ered By: Dr. Anderson on 07-07-2022 Lymphocytes Auto (Unsp spec) [#/Vol] 3.11 10*3/uL 0.83-4.51 [facility] Basophil percentageOrdered B y: Dr. Anderson on 07-07-2022 Basophil percentage 86 mg/dL 74-106 [facility] Basophil percentage 136 mmol/L 136-145 [facility] Basophil percentage 4.5 mmol/L 3.5-5.1 [facility] Basophil percentage 104 mmol/L 98-107 [facility] Basophils (Bld) [#/Vol] 8.1 10*3/uL 4.4-11.0 [facility] Basophils (Bld) [#/Vol] 3.5 10*3/uL 2.0-7.7 [facility] Basophils/100 WBC (Bld) 1.0 % 0-1 [facility] Basophils/100 WBC (Bld) 43.8 % 47-70 [facility] Basophils/100 WBC (Bld) 6.0 % 0-5 [facility] Chloride [Moles/Vol] 104 mmol/L 98-107 [facility] Eosinophils/100 WBC (Bld) 6.0 % 0-5 [facility] Glucose [Mass/Vol] 86 mg/dL 74-106 [facility] Neutrophils (Bld) [#/Vol] 3.5 10*3/uL 2.0-7.7 [facility] Neutrophils/100 WBC (Bld) 43.8 % 47-70 [facility] Potassium [Moles/Vol] 4.5 mmol/L 3.5-5.1 [facility] Sodium [Moles/Vol] 136 mmol/L 136-145 [facility] WBC (Bld) [#/Vol] 8.1 10*3/uL 4.4-11.0 [facility] Blood erythrocytes count (nu mber/volume)Ordered By: Dr. Anderson on 07-07-2022 RBC (Bld) [#/Vol] 3.77 10*6/uL 4.2-5.4 [facility] Blood hemoglobin measurement (mass/volume)Ordered By: Dr. Anderson on 07-07-2022 Hemoglobin (Bld) [Mass/Vol] 12.0 g/dL 12.0-15.0 [facility] Blood lymphocytes/100 leukoc ytesOrdered By: Dr. Anderson on 07-07-2022 Lymphocytes/100 WBC (Bld) 38.6 % 19-41 [facility] Blood monocytes/100 leukocyt esOrdered By: Dr. Anderson on 07-07-2022 Monocytes/100 WBC (Bld) 10.2 % 0-10 [facility] Blood platelet mean volumeOr dered By: Dr. Anderson on 07-07-2022 Platelet mean volume (Bld) [Entitic vol] 9.8 fL 6.2-12.0 [facility] Determination of erythrocyte mean corpuscular volume (MCV)Ordered By: Dr. Anderson on 07-07-2022 MCV (RBC) [Entitic vol] 101.9 fL 81-99 [facility] Hematocrit Auto (Bld) [Volum e fraction]Ordered By: Dr. Anderson on 07-07-2022 Hematocrit (Bld) [Volume fraction] 38.4 % 37-47 [facility] - Chemistry and C hemistry - challengeOrdered By: Dr. Anderson on 07-07-2022 CO2 [Moles/Vol] 29.0 mmol/L 21.0-32.0 [facility] Urea nitrogen/Creatinine [Mass ratio] 28.3 mg/mg 10-20 [facility] - Hematology and Cell countsOrdered By: Dr. Anderson on 07-07-2022 Erythrocyte distribution width (RBC) [Entitic vol] 49.1 fL 35.1-43.9 [facility] Erythrocyte distribution width (RBC) [Ratio] 13.2 % 11.6-14.6 [facility] Immature granulocytes/100 WBC (Bld) 0.400 % 0.0-0.9 [facility] Comment on above: IG% - Immature Granu locytes (promyelocytes, myelocytes and metamyelocytes) > 1% indicates that a LEFT SHIFT is Present. MCH (RBC) [Entitic mass] 31.8 pg 27.0-32.0 [facility] Nucleated RBC/100 WBC (Bld) [Ratio] 0 % 0-5 [facility] MCHC Auto (RBC) [Mass/Vol]Or dered By: Dr. Anderson on 07-07-2022 MCHC (RBC) [Mass/Vol] 31.3 g/dL 32-36 [facility] No Panel InformationOrdered By: Dr. Anderson on 07-07-2022 Estimated GFR (MDRD) Amer 99 mL/min >60 [facility] Comment on above: GFR Calc Estimated GFR (MDRD) Non-Af Amer 82 mL/min >60 [facility] Comment on above: Non- GFR Calc 31.8 pg 27.0-32.0 [facility] 13.2 % 11.6-14.6 [facility] 49.1 fl 35.1-43.9 [facility] 0.400 % 0.0-0.9 [facility] 0 % 0-5 [facility] 82 mL/min >60 [facility] 99 mL/min >60 [facility] 28.3 RATIO 10-20 [facility] 29.0 mmol/L 21.0-32.0 [facility] Platelets bldOrdered By: Dr. Anderson on 07-07-2022 Platelets (Bld) [#/Vol] 305 10*3/uL 150-450 [facility] Serum or plasma calcium moriah urement (mass/volume)Ordered By: Dr. Anderson on 07-07-2022 Calcium [Mass/Vol] 8.5 mg/dL 8.5-10.1 [facility] Serum or plasma creatinine m easurement (mass/volume)Ordered By: Dr. Anderson on 07-07-2022 Creatinine [Mass/Vol] 0.74 mg/dL 0.55-1.02 [facility] Comment on above: The validity of the calculated GFR & GFRAA in patients over 70 years has not been determined. Clinical correlation is essential. Serum or plasma urea nitroge n measurement (mass/volume)Ordered By: Dr. Anderson on 07-07-2022 Urea nitrogen [Mass/Vol] 21 mg/dL 7-18 [facility] Thin prep Papanicolaou smear with manual screeningOrdered By: Dr. Anderson on 07-07-2022 Thin prep Papanicolaou smear with manual screening 3 5-15 [facility] Absolute lymphocyte countOrd ered By: Dr. Anderson on 06-30-2022 Lymphocytes Auto (Unsp spec) [#/Vol] 2.76 10*3/uL 0.83-4.51 [facility] Basophil percentageOrdered B y: Dr. Anderson on 06-30-2022 Basophil percentage 88 mg/dL 74-106 [facility] Basophil percentage 138 mmol/L 136-145 [facility] Basophil percentage 4.5 mmol/L 3.5-5.1 [facility] Basophil percentage 106 mmol/L 98-107 [facility] Basophils (Bld) [#/Vol] 6.6 10*3/uL 4.4-11.0 [facility] Basophils (Bld) [#/Vol] 2.4 10*3/uL 2.0-7.7 [facility] Basophils/100 WBC (Bld) 0.8 % 0-1 [facility] Basophils/100 WBC (Bld) 35.5 % 47-70 [facility] Basophils/100 WBC (Bld) 10.8 % 0-5 [facility] Chloride [Moles/Vol] 106 mmol/L 98-107 [facility] Eosinophils/100 WBC (Bld) 10.8 % 0-5 [facility] Glucose [Mass/Vol] 88 mg/dL 74-106 [facility] Neutrophils (Bld) [#/Vol] 2.4 10*3/uL 2.0-7.7 [facility] Neutrophils/100 WBC (Bld) 35.5 % 47-70 [facility] Potassium [Moles/Vol] 4.5 mmol/L 3.5-5.1 [facility] Sodium [Moles/Vol] 138 mmol/L 136-145 [facility] WBC (Bld) [#/Vol] 6.6 10*3/uL 4.4-11.0 [facility] Blood erythrocytes count (nu mber/volume)Ordered By: Dr. Anderson on 06-30-2022 RBC (Bld) [#/Vol] 3.62 10*6/uL 4.2-5.4 [facility] Blood hemoglobin measurement (mass/volume)Ordered By: Dr. Anderson on 06-30-2022 Hemoglobin (Bld) [Mass/Vol] 11.4 g/dL 12.0-15.0 [facility] Blood lymphocytes/100 leukoc ytesOrdered By: Dr. Anderson on 06-30-2022 Lymphocytes/100 WBC (Bld) 41.6 % 19-41 [facility] Blood monocytes/100 leukocyt esOrdered By: Dr. Anderson on 06-30-2022 Monocytes/100 WBC (Bld) 11.0 % 0-10 [facility] Blood platelet mean volumeOr dered By: Dr. Anderson on 06-30-2022 Platelet mean volume (Bld) [Entitic vol] 10.0 fL 6.2-12.0 [facility] Determination of erythrocyte mean corpuscular volume (MCV)Ordered By: Dr. Anderson on 06-30-2022 MCV (RBC) [Entitic vol] 103.0 fL 81-99 [facility] Hematocrit Auto (Bld) [Volum e fraction]Ordered By: Dr. Anderson on 06-30-2022 Hematocrit (Bld) [Volume fraction] 37.3 % 37-47 [facility] - Chemistry and C hemistry - challengeOrdered By: Dr. Anderson on 06-30-2022 CO2 [Moles/Vol] 30.0 mmol/L 21.0-32.0 [facility] Urea nitrogen/Creatinine [Mass ratio] 20.6 mg/mg 10-20 [facility] - Hematology and Cell countsOrdered By: Dr. Anderson on 06-30-2022 Erythrocyte distribution width (RBC) [Entitic vol] 50.2 fL 35.1-43.9 [facility] Erythrocyte distribution width (RBC) [Ratio] 13.2 % 11.6-14.6 [facility] Immature granulocytes/100 WBC (Bld) 0.300 % 0.0-0.9 [facility] Comment on above: IG% - Immature Granu locytes (promyelocytes, myelocytes and metamyelocytes) > 1% indicates that a LEFT SHIFT is Present. MCH (RBC) [Entitic mass] 31.5 pg 27.0-32.0 [facility] Nucleated RBC/100 WBC (Bld) [Ratio] 0 % 0-5 [facility] MCHC Auto (RBC) [Mass/Vol]Or dered By: Dr. Anderson on 06-30-2022 MCHC (RBC) [Mass/Vol] 30.6 g/dL 32-36 [facility] No Panel InformationOrdered By: Dr. Anderson on 06-30-2022 Estimated GFR (MDRD) Amer 110 mL/min >60 [facility] Comment on above: GFR Calc Estimated GFR (MDRD) Non-Af Amer 91 mL/min >60 [facility] Comment on above: Non- GFR Calc 31.5 pg 27.0-32.0 [facility] 13.2 % 11.6-14.6 [facility] 50.2 fl 35.1-43.9 [facility] 0.300 % 0.0-0.9 [facility] 0 % 0-5 [facility] 91 mL/min >60 [facility] 110 mL/min >60 [facility] 20.6 RATIO 10-20 [facility] 30.0 mmol/L 21.0-32.0 [facility] Platelets bldOrdered By: Dr. Anderson on 06-30-2022 Platelets (Bld) [#/Vol] 240 10*3/uL 150-450 [facility] Serum or plasma calcium moriah urement (mass/volume)Ordered By: Dr. Anderson on 06-30-2022 Calcium [Mass/Vol] 8.2 mg/dL 8.5-10.1 [facility] Serum or plasma creatinine m easurement (mass/volume)Ordered By: Dr. Anderson on 06-30-2022 Creatinine [Mass/Vol] 0.68 mg/dL 0.55-1.02 [facility] Comment on above: The validity of the calculated GFR & GFRAA in patients over 70 years has not been determined. Clinical correlation is essential. Serum or plasma urea nitroge n measurement (mass/volume)Ordered By: Dr. Anderson on 06-30-2022 Urea nitrogen [Mass/Vol] 14 mg/dL 7-18 [facility] Thin prep Papanicolaou smear with manual screeningOrdered By: Dr. Anderson on 06-30-2022 Thin prep Papanicolaou smear with manual screening 2 5-15 [facility] Absolute lymphocyte countOrd ered By: Dr. Anderson on 06-16-2022 Lymphocytes Auto (Unsp spec) [#/Vol] 2.44 10*3/uL 0.83-4.51 [facility] Basophil percentageOrdered B y: Dr. Anderson on 06-16-2022 Basophil percentage 87 mg/dL 74-106 [facility] Basophil percentage 139 mmol/L 136-145 [facility] Basophil percentage 4.3 mmol/L 3.5-5.1 [facility] Basophil percentage 107 mmol/L 98-107 [facility] Basophils (Bld) [#/Vol] 5.6 10*3/uL 4.4-11.0 [facility] Basophils (Bld) [#/Vol] 2.1 10*3/uL 2.0-7.7 [facility] Basophils/100 WBC (Bld) 0.7 % 0-1 [facility] Basophils/100 WBC (Bld) 37.1 % 47-70 [facility] Basophils/100 WBC (Bld) 7.8 % 0-5 [facility] Chloride [Moles/Vol] 107 mmol/L 98-107 [facility] Eosinophils/100 WBC (Bld) 7.8 % 0-5 [facility] Glucose [Mass/Vol] 87 mg/dL 74-106 [facility] Neutrophils (Bld) [#/Vol] 2.1 10*3/uL 2.0-7.7 [facility] Neutrophils/100 WBC (Bld) 37.1 % 47-70 [facility] Potassium [Moles/Vol] 4.3 mmol/L 3.5-5.1 [facility] Sodium [Moles/Vol] 139 mmol/L 136-145 [facility] WBC (Bld) [#/Vol] 5.6 10*3/uL 4.4-11.0 [facility] Blood erythrocytes count (nu mber/volume)Ordered By: Dr. Anderson on 06-16-2022 RBC (Bld) [#/Vol] 3.57 10*6/uL 4.2-5.4 [facility] Blood hemoglobin measurement (mass/volume)Ordered By: Dr. Anderson on 06-16-2022 Hemoglobin (Bld) [Mass/Vol] 11.2 g/dL 12.0-15.0 [facility] Blood lymphocytes/100 leukoc ytesOrdered By: Dr. Anderson on 06-16-2022 Lymphocytes/100 WBC (Bld) 43.3 % 19-41 [facility] Blood monocytes/100 leukocyt esOrdered By: Dr. Anderson on 06-16-2022 Monocytes/100 WBC (Bld) 10.7 % 0-10 [facility] Blood platelet mean volumeOr dered By: Dr. Anderson on 06-16-2022 Platelet mean volume (Bld) [Entitic vol] 10.4 fL 6.2-12.0 [facility] Determination of erythrocyte mean corpuscular volume (MCV)Ordered By: Dr. Anderson on 06-16-2022 MCV (RBC) [Entitic vol] 101.7 fL 81-99 [facility] Hematocrit Auto (Bld) [Volum e fraction]Ordered By: Dr. Anderson on 06-16-2022 Hematocrit (Bld) [Volume fraction] 36.3 % 37-47 [facility] - Chemistry and C hemistry - challengeOrdered By: Dr. Anderson on 06-16-2022 CO2 [Moles/Vol] 30.0 mmol/L 21.0-32.0 [facility] Urea nitrogen/Creatinine [Mass ratio] 20.9 mg/mg 10-20 [facility] - Hematology and Cell countsOrdered By: Dr. Anderson on 06-16-2022 Erythrocyte distribution width (RBC) [Entitic vol] 49.2 fL 35.1-43.9 [facility] Erythrocyte distribution width (RBC) [Ratio] 13.2 % 11.6-14.6 [facility] Immature granulocytes/100 WBC (Bld) 0.400 % 0.0-0.9 [facility] Comment on above: IG% - Immature Granu locytes (promyelocytes, myelocytes and metamyelocytes) > 1% indicates that a LEFT SHIFT is Present. MCH (RBC) [Entitic mass] 31.4 pg 27.0-32.0 [facility] Nucleated RBC/100 WBC (Bld) [Ratio] 0 % 0-5 [facility] MCHC Auto (RBC) [Mass/Vol]Or dered By: Dr. Anderson on 06-16-2022 MCHC (RBC) [Mass/Vol] 30.9 g/dL 32-36 [facility] No Panel InformationOrdered By: Dr. Anderson on 06-16-2022 Estimated GFR (MDRD) Amer 112 mL/min >60 [facility] Comment on above: GFR Calc Estimated GFR (MDRD) Non-Af Amer 92 mL/min >60 [facility] Comment on above: Non- GFR Calc 31.4 pg 27.0-32.0 [facility] 13.2 % 11.6-14.6 [facility] 49.2 fl 35.1-43.9 [facility] 0.400 % 0.0-0.9 [facility] 0 % 0-5 [facility] 92 mL/min >60 [facility] 112 mL/min >60 [facility] 20.9 RATIO 10-20 [facility] 30.0 mmol/L 21.0-32.0 [facility] Platelets bldOrdered By: Dr. Anderson on 06-16-2022 Platelets (Bld) [#/Vol] 263 10*3/uL 150-450 [facility] Serum or plasma calcium moriah urement (mass/volume)Ordered By: Dr. Anderson on 06-16-2022 Calcium [Mass/Vol] 8.1 mg/dL 8.5-10.1 [facility] Serum or plasma creatinine m easurement (mass/volume)Ordered By: Dr. Anderson on 06-16-2022 Creatinine [Mass/Vol] 0.67 mg/dL 0.55-1.02 [facility] Comment on above: The validity of the calculated GFR & GFRAA in patients over 70 years has not been determined. Clinical correlation is essential. Serum or plasma urea nitroge n measurement (mass/volume)Ordered By: Dr. Anderson on 06-16-2022 Urea nitrogen [Mass/Vol] 14 mg/dL 7-18 [facility] Thin prep Papanicolaou smear with manual screeningOrdered By: Dr. Anderson on 06-16-2022 Thin prep Papanicolaou smear with manual screening 2 5-15 [facility] Absolute lymphocyte countOrd ered By: Dr. Anderson on 06-09-2022 Lymphocytes Auto (Unsp spec) [#/Vol] 1.91 10*3/uL 0.83-4.51 [facility] Basophil percentageOrdered B y: Dr. Anderson on 06-09-2022 Basophil percentage 83 mg/dL 74-106 [facility] Basophil percentage 140 mmol/L 136-145 [facility] Basophil percentage 4.4 mmol/L 3.5-5.1 [facility] Basophil percentage 106 mmol/L 98-107 [facility] Basophils (Bld) [#/Vol] 6.0 10*3/uL 4.4-11.0 [facility] Basophils (Bld) [#/Vol] 2.9 10*3/uL 2.0-7.7 [facility] Basophils/100 WBC (Bld) 1.0 % 0-1 [facility] Basophils/100 WBC (Bld) 49.4 % 47-70 [facility] Basophils/100 WBC (Bld) 5.9 % 0-5 [facility] Chloride [Moles/Vol] 106 mmol/L 98-107 [facility] Eosinophils/100 WBC (Bld) 5.9 % 0-5 [facility] Glucose [Mass/Vol] 83 mg/dL 74-106 [facility] Neutrophils (Bld) [#/Vol] 2.9 10*3/uL 2.0-7.7 [facility] Neutrophils/100 WBC (Bld) 49.4 % 47-70 [facility] Potassium [Moles/Vol] 4.4 mmol/L 3.5-5.1 [facility] Sodium [Moles/Vol] 140 mmol/L 136-145 [facility] WBC (Bld) [#/Vol] 6.0 10*3/uL 4.4-11.0 [facility] Blood erythrocytes count (nu mber/volume)Ordered By: Dr. Anderson on 06-09-2022 RBC (Bld) [#/Vol] 3.61 10*6/uL 4.2-5.4 [facility] Blood hemoglobin measurement (mass/volume)Ordered By: Dr. Anderson on 06-09-2022 Hemoglobin (Bld) [Mass/Vol] 11.3 g/dL 12.0-15.0 [facility] Blood lymphocytes/100 leukoc ytesOrdered By: Dr. Anderson on 06-09-2022 Lymphocytes/100 WBC (Bld) 32.0 % 19-41 [facility] Blood monocytes/100 leukocyt esOrdered By: Dr. Anderson on 06-09-2022 Monocytes/100 WBC (Bld) 11.4 % 0-10 [facility] Blood platelet mean volumeOr dered By: Dr. Anderson on 06-09-2022 Platelet mean volume (Bld) [Entitic vol] 10.2 fL 6.2-12.0 [facility] Determination of erythrocyte mean corpuscular volume (MCV)Ordered By: Dr. Anderson on 06-09-2022 MCV (RBC) [Entitic vol] 103.0 fL 81-99 [facility] Hematocrit Auto (Bld) [Volum e fraction]Ordered By: Dr. Anderson on 06-09-2022 Hematocrit (Bld) [Volume fraction] 37.2 % 37-47 [facility] - Chemistry and C hemistry - challengeOrdered By: Dr. Anderson on 06-09-2022 CO2 [Moles/Vol] 30.0 mmol/L 21.0-32.0 [facility] Urea nitrogen/Creatinine [Mass ratio] 18.1 mg/mg 10-20 [facility] - Hematology and Cell countsOrdered By: Dr. Anderson on 06-09-2022 Erythrocyte distribution width (RBC) [Entitic vol] 51.5 fL 35.1-43.9 [facility] Erythrocyte distribution width (RBC) [Ratio] 13.2 % 11.6-14.6 [facility] Immature granulocytes/100 WBC (Bld) 0.300 % 0.0-0.9 [facility] Comment on above: IG% - Immature Granu locytes (promyelocytes, myelocytes and metamyelocytes) > 1% indicates that a LEFT SHIFT is Present. MCH (RBC) [Entitic mass] 31.3 pg 27.0-32.0 [facility] Nucleated RBC/100 WBC (Bld) [Ratio] 0 % 0-5 [facility] MCHC Auto (RBC) [Mass/Vol]Or dered By: Dr. Anderson on 06-09-2022 MCHC (RBC) [Mass/Vol] 30.4 g/dL 32-36 [facility] No Panel InformationOrdered By: Dr. Anderson on 06-09-2022 Estimated GFR (MDRD) Amer 103 mL/min >60 [facility] Comment on above: GFR Calc Estimated GFR (MDRD) Non-Af Amer 85 mL/min >60 [facility] Comment on above: Non- GFR Calc 31.3 pg 27.0-32.0 [facility] 13.2 % 11.6-14.6 [facility] 51.5 fl 35.1-43.9 [facility] 0.300 % 0.0-0.9 [facility] 0 % 0-5 [facility] 85 mL/min >60 [facility] 103 mL/min >60 [facility] 18.1 RATIO 10-20 [facility] 30.0 mmol/L 21.0-32.0 [facility] Platelets bldOrdered By: Dr. Anderson on 06-09-2022 Platelets (Bld) [#/Vol] 321 10*3/uL 150-450 [facility] Serum or plasma calcium moriah urement (mass/volume)Ordered By: Dr. Anderson on 06-09-2022 Calcium [Mass/Vol] 8.6 mg/dL 8.5-10.1 [facility] Serum or plasma creatinine m easurement (mass/volume)Ordered By: Dr. Anderson on 06-09-2022 Creatinine [Mass/Vol] 0.72 mg/dL 0.55-1.02 [facility] Comment on above: The validity of the calculated GFR & GFRAA in patients over 70 years has not been determined. Clinical correlation is essential. Serum or plasma urea nitroge n measurement (mass/volume)Ordered By: Dr. Anderson on 06-09-2022 Urea nitrogen [Mass/Vol] 13 mg/dL 7-18 [facility] Thin prep Papanicolaou smear with manual screeningOrdered By: Dr. Anderson on 06-09-2022 Thin prep Papanicolaou smear with manual screening 4 5-15 [facility] Thin prep Papanicolaou smear with manual screening Neisseria or beta-hemolytic Streptococcus isolated. [facility] Gram stain for investigation of transfusion reactionOrdered By: Dr. Anderson on 06-07-2022 Microscopic observation Gram stain Nom (Unsp spec) [facility] Absolute lymphocyte countOrd ered By: Dr. Anderson on 06-02-2022 Lymphocytes Auto (Unsp spec) [#/Vol] 2.53 10*3/uL 0.83-4.51 [facility] Basophil percentageOrdered B y: Dr. Anderson on 06-02-2022 Basophil percentage 88 mg/dL 74-106 [facility] Basophil percentage 141 mmol/L 136-145 [facility] Basophil percentage 4.5 mmol/L 3.5-5.1 [facility] Basophil percentage 108 mmol/L 98-107 [facility] Basophils (Bld) [#/Vol] 7.6 10*3/uL 4.4-11.0 [facility] Basophils (Bld) [#/Vol] 3.8 10*3/uL 2.0-7.7 [facility] Basophils/100 WBC (Bld) 0.8 % 0-1 [facility] Basophils/100 WBC (Bld) 50.6 % 47-70 [facility] Basophils/100 WBC (Bld) 5.7 % 0-5 [facility] Chloride [Moles/Vol] 108 mmol/L 98-107 [facility] Eosinophils/100 WBC (Bld) 5.7 % 0-5 [facility] Glucose [Mass/Vol] 88 mg/dL 74-106 [facility] Neutrophils (Bld) [#/Vol] 3.8 10*3/uL 2.0-7.7 [facility] Neutrophils/100 WBC (Bld) 50.6 % 47-70 [facility] Potassium [Moles/Vol] 4.5 mmol/L 3.5-5.1 [facility] Sodium [Moles/Vol] 141 mmol/L 136-145 [facility] WBC (Bld) [#/Vol] 7.6 10*3/uL 4.4-11.0 [facility] Blood erythrocytes count (nu mber/volume)Ordered By: Dr. Anderson on 06-02-2022 RBC (Bld) [#/Vol] 3.58 10*6/uL 4.2-5.4 [facility] Blood hemoglobin measurement (mass/volume)Ordered By: Dr. Anderson on 06-02-2022 Hemoglobin (Bld) [Mass/Vol] 11.2 g/dL 12.0-15.0 [facility] Blood lymphocytes/100 leukoc ytesOrdered By: Dr. Anderson on 06-02-2022 Lymphocytes/100 WBC (Bld) 33.3 % 19-41 [facility] Blood monocytes/100 leukocyt esOrdered By: Dr. Anderson on 06-02-2022 Monocytes/100 WBC (Bld) 9.1 % 0-10 [facility] Blood platelet mean volumeOr dered By: Dr. Anderson on 06-02-2022 Platelet mean volume (Bld) [Entitic vol] 9.7 fL 6.2-12.0 [facility] Determination of erythrocyte mean corpuscular volume (MCV)Ordered By: Dr. Anderson on 06-02-2022 MCV (RBC) [Entitic vol] 103.9 fL 81-99 [facility] Hematocrit Auto (Bld) [Volum e fraction]Ordered By: Dr. Anderson on 06-02-2022 Hematocrit (Bld) [Volume fraction] 37.2 % 37-47 [facility] Laboratory - Chemistry and C hemistry - challengeOrdered By: Dr. Anderson on 06-02-2022 CO2 [Moles/Vol] 31.0 mmol/L 21.0-32.0 [facility] Urea nitrogen/Creatinine [Mass ratio] 19.2 mg/mg 10-20 [facility] Laboratory - Hematology and Cell countsOrdered By: Dr. Anderson on 06-02-2022 Erythrocyte distribution width (RBC) [Entitic vol] 52.9 fL 35.1-43.9 [facility] Erythrocyte distribution width (RBC) [Ratio] 13.7 % 11.6-14.6 [facility] Immature granulocytes/100 WBC (Bld) 0.500 % 0.0-0.9 [facility] Comment on above: IG% - Immature Granu locytes (promyelocytes, myelocytes and metamyelocytes) > 1% indicates that a LEFT SHIFT is Present. MCH (RBC) [Entitic mass] 31.3 pg 27.0-32.0 [facility] Nucleated RBC/100 WBC (Bld) [Ratio] 0 % 0-5 [facility] MCHC Auto (RBC) [Mass/Vol]Or dered By: Dr. Anderson on 06-02-2022 MCHC (RBC) [Mass/Vol] 30.1 g/dL 32-36 [facility] No Panel InformationOrdered By: Dr. Anderson on 06-02-2022 Estimated GFR (MDRD) Amer 110 mL/min >60 [facility] Comment on above: GFR Calc Estimated GFR (MDRD) Non-Af Amer 91 mL/min >60 [facility] Comment on above: Non- GFR Calc 31.3 pg 27.0-32.0 [facility] 13.7 % 11.6-14.6 [facility] 52.9 fl 35.1-43.9 [facility] 0.500 % 0.0-0.9 [facility] 0 % 0-5 [facility] 91 mL/min >60 [facility] 110 mL/min >60 [facility] 19.2 RATIO 10-20 [facility] 31.0 mmol/L 21.0-32.0 [facility] Platelets bldOrdered By: Dr. Anderson on 06-02-2022 Platelets (Bld) [#/Vol] 292 10*3/uL 150-450 [facility] Serum or plasma calcium moriah urement (mass/volume)Ordered By: Dr. Anderson on 06-02-2022 Calcium [Mass/Vol] 8.3 mg/dL 8.5-10.1 [facility] Serum or plasma creatinine m easurement (mass/volume)Ordered By: Dr. Anderson on 06-02-2022 Creatinine [Mass/Vol] 0.68 mg/dL 0.55-1.02 [facility] Comment on above: The validity of the calculated GFR & GFRAA in patients over 70 years has not been determined. Clinical correlation is essential. Serum or plasma urea nitroge n measurement (mass/volume)Ordered By: Dr. Anderson on 06-02-2022 Urea nitrogen [Mass/Vol] 13 mg/dL 7-18 [facility] Thin prep Papanicolaou smear with manual screeningOrdered By: Dr. Anderson on 06-02-2022 Thin prep Papanicolaou smear with manual screening 2 5-15 [facility] No Panel InformationOrdered By: Dr. Anderson on 05-31-2022 Thyroid Stimulating Hormone (TSH) 1.68 uIU/mL 0.358-3.74 [facility] 1.68 uIU/mL 0.358-3.74 [facility] Absolute lymphocyte countOrd ered By: Dr. Anderson on 05-26-2022 Lymphocytes Auto (Unsp spec) [#/Vol] 1.80 10*3/uL 0.83-4.51 [facility] Basophil percentageOrdered B y: Dr. Anderson on 05-26-2022 Basophil percentage 78 mg/dL 74-106 [facility] Basophil percentage 141 mmol/L 136-145 [facility] Basophil percentage 4.6 mmol/L 3.5-5.1 [facility] Basophil percentage 108 mmol/L 98-107 [facility] Basophils (Bld) [#/Vol] 7.1 10*3/uL 4.4-11.0 [facility] Basophils (Bld) [#/Vol] 3.8 10*3/uL 2.0-7.7 [facility] Basophils/100 WBC (Bld) 0.8 % 0-1 [facility] Basophils/100 WBC (Bld) 53.9 % 47-70 [facility] Basophils/100 WBC (Bld) 6.9 % 0-5 [facility] Chloride [Moles/Vol] 108 mmol/L 98-107 [facility] Eosinophils/100 WBC (Bld) 6.9 % 0-5 [facility] Glucose [Mass/Vol] 78 mg/dL 74-106 [facility] Neutrophils (Bld) [#/Vol] 3.8 10*3/uL 2.0-7.7 [facility] Neutrophils/100 WBC (Bld) 53.9 % 47-70 [facility] Potassium [Moles/Vol] 4.6 mmol/L 3.5-5.1 [facility] Sodium [Moles/Vol] 141 mmol/L 136-145 [facility] WBC (Bld) [#/Vol] 7.1 10*3/uL 4.4-11.0 [facility] Blood erythrocytes count (nu mber/volume)Ordered By: Dr. Anderson on 05-26-2022 RBC (Bld) [#/Vol] 3.57 10*6/uL 4.2-5.4 [facility] Blood hemoglobin measurement (mass/volume)Ordered By: Dr. Anderson on 05-26-2022 Hemoglobin (Bld) [Mass/Vol] 11.2 g/dL 12.0-15.0 [facility] Blood lymphocytes/100 leukoc ytesOrdered By: Dr. Anderson on 05-26-2022 Lymphocytes/100 WBC (Bld) 25.2 % 19-41 [facility] Blood monocytes/100 leukocyt esOrdered By: Dr. Anderson on 05-26-2022 Monocytes/100 WBC (Bld) 12.9 % 0-10 [facility] Blood platelet mean volumeOr dered By: Dr. Anderson on 05-26-2022 Platelet mean volume (Bld) [Entitic vol] 10.4 fL 6.2-12.0 [facility] Determination of erythrocyte mean corpuscular volume (MCV)Ordered By: Dr. Anderson on 05-26-2022 MCV (RBC) [Entitic vol] 103.1 fL 81-99 [facility] Hematocrit Auto (Bld) [Volum e fraction]Ordered By: Dr. Anderson on 05-26-2022 Hematocrit (Bld) [Volume fraction] 36.8 % 37-47 [facility] Laboratory - Chemistry and C hemistry - challengeOrdered By: Dr. Anderson on 05-26-2022 CO2 [Moles/Vol] 27.0 mmol/L 21.0-32.0 [facility] Urea nitrogen/Creatinine [Mass ratio] 14.3 mg/mg 10- [facility] - Hematology and Cell countsOrdered By: Dr. Anderson on 05-26-2022 Erythrocyte distribution width (RBC) [Entitic vol] 53.0 fL 35.1-43.9 [facility] Erythrocyte distribution width (RBC) [Ratio] 13.8 % 11.6-14.6 [facility] Immature granulocytes/100 WBC (Bld) 0.300 % 0.0-0.9 [facility] Comment on above: IG% - Immature Granu locytes (promyelocytes, myelocytes and metamyelocytes) > 1% indicates that a LEFT SHIFT is Present. MCH (RBC) [Entitic mass] 31.4 pg 27.0-32.0 [facility] Nucleated RBC/100 WBC (Bld) [Ratio] 0 % 0-5 [facility] MCHC Auto (RBC) [Mass/Vol]Or dered By: Dr. Anderson on 05-26-2022 MCHC (RBC) [Mass/Vol] 30.4 g/dL 32-36 [facility] No Panel InformationOrdered By: Dr. Anderson on 05-26-2022 Estimated GFR (MDRD) Amer 138 mL/min >60 [facility] Comment on above: GFR Calc Estimated GFR (MDRD) Non-Af Amer 114 mL/min >60 [facility] Comment on above: Non- GFR Calc 31.4 pg 27.0-32.0 [facility] 13.8 % 11.6-14.6 [facility] 53.0 fl 35.1-43.9 [facility] 0.300 % 0.0-0.9 [facility] 0 % 0-5 [facility] 114 mL/min >60 [facility] 138 mL/min >60 [facility] 14.3 RATIO 10-20 [facility] 27.0 mmol/L 21.0-32.0 [facility] Platelets bldOrdered By: Dr. Anderson on 05-26-2022 Platelets (Bld) [#/Vol] 253 10*3/uL 150-450 [facility] Serum or plasma calcium moriah urement (mass/volume)Ordered By: Dr. Anderson on 05-26-2022 Calcium [Mass/Vol] 8.6 mg/dL 8.5-10.1 [facility] Serum or plasma creatinine m easurement (mass/volume)Ordered By: Dr. Anderson on 05-26-2022 Creatinine [Mass/Vol] 0.56 mg/dL 0.55-1.02 [facility] Comment on above: The validity of the calculated GFR & GFRAA in patients over 70 years has not been determined. Clinical correlation is essential. Serum or plasma urea nitroge n measurement (mass/volume)Ordered By: Dr. Anderson on 05-26-2022 Urea nitrogen [Mass/Vol] 8 mg/dL 7-18 [facility] Thin prep Papanicolaou smear with manual screeningOrdered By: Dr. Anderson on 05-26-2022 Thin prep Papanicolaou smear with manual screening 6 5-15 [facility] Absolute lymphocyte countOrd ered By: Dr. Anderson on 05-19-2022 Lymphocytes Auto (Unsp spec) [#/Vol] 2.21 10*3/uL 0.83-4.51 [facility] Basophil percentageOrdered B y: Dr. Anderson on 05-19-2022 Basophil percentage 83 mg/dL 74-106 [facility] Basophil percentage 138 mmol/L 136-145 [facility] Basophil percentage 4.5 mmol/L 3.5-5.1 [facility] Basophil percentage 105 mmol/L 98-107 [facility] Basophils (Bld) [#/Vol] 8.3 10*3/uL 4.4-11.0 [facility] Basophils (Bld) [#/Vol] 5.0 10*3/uL 2.0-7.7 [facility] Basophils/100 WBC (Bld) 0.8 % 0-1 [facility] Basophils/100 WBC (Bld) 59.6 % 47-70 [facility] Basophils/100 WBC (Bld) 5.6 % 0-5 [facility] Chloride [Moles/Vol] 105 mmol/L 98-107 [facility] Eosinophils/100 WBC (Bld) 5.6 % 0-5 [facility] Glucose [Mass/Vol] 83 mg/dL 74-106 [facility] Neutrophils (Bld) [#/Vol] 5.0 10*3/uL 2.0-7.7 [facility] Neutrophils/100 WBC (Bld) 59.6 % 47-70 [facility] Potassium [Moles/Vol] 4.5 mmol/L 3.5-5.1 [facility] Sodium [Moles/Vol] 138 mmol/L 136-145 [facility] WBC (Bld) [#/Vol] 8.3 10*3/uL 4.4-11.0 [facility] Blood erythrocytes count (nu mber/volume)Ordered By: Dr. Anderson on 05-19-2022 RBC (Bld) [#/Vol] 3.79 10*6/uL 4.2-5.4 [facility] Blood hemoglobin measurement (mass/volume)Ordered By: Dr. Anderson on 05-19-2022 Hemoglobin (Bld) [Mass/Vol] 12.0 g/dL 12.0-15.0 [facility] Blood lymphocytes/100 leukoc ytesOrdered By: Dr. Anderson on 05-19-2022 Lymphocytes/100 WBC (Bld) 26.5 % 19-41 [facility] Blood monocytes/100 leukocyt esOrdered By: Dr. Anderson on 05-19-2022 Monocytes/100 WBC (Bld) 7.3 % 0-10 [facility] Blood platelet mean volumeOr dered By: Dr. Anderson on 05-19-2022 Platelet mean volume (Bld) [Entitic vol] 10.1 fL 6.2-12.0 [facility] Determination of erythrocyte mean corpuscular volume (MCV)Ordered By: Dr. Anderson on 05-19-2022 MCV (RBC) [Entitic vol] 103.2 fL 81-99 [facility] Hematocrit Auto (Bld) [Volum e fraction]Ordered By: Dr. Anderson on 05-19-2022 Hematocrit (Bld) [Volume fraction] 39.1 % 37-47 [facility] Laboratory - Chemistry and C hemistry - challengeOrdered By: Dr. Anderson on 05-19-2022 CO2 [Moles/Vol] 29.0 mmol/L 21.0-32.0 [facility] Urea nitrogen/Creatinine [Mass ratio] 15.8 mg/mg 10-20 [facility] - Hematology and Cell countsOrdered By: Dr. Anderson on 05-19-2022 Erythrocyte distribution width (RBC) [Entitic vol] 53.5 fL 35.1-43.9 [facility] Erythrocyte distribution width (RBC) [Ratio] 14.2 % 11.6-14.6 [facility] Immature granulocytes/100 WBC (Bld) 0.200 % 0.0-0.9 [facility] Comment on above: IG% - Immature Granu locytes (promyelocytes, myelocytes and metamyelocytes) > 1% indicates that a LEFT SHIFT is Present. MCH (RBC) [Entitic mass] 31.7 pg 27.0-32.0 [facility] Nucleated RBC/100 WBC (Bld) [Ratio] 0 % 0-5 [facility] MCHC Auto (RBC) [Mass/Vol]Or dered By: Dr. Anderson on 05-19-2022 MCHC (RBC) [Mass/Vol] 30.7 g/dL 32-36 [facility] No Panel InformationOrdered By: Dr. Anderson on 05-19-2022 Estimated GFR (MDRD) Amer 96 mL/min >60 [facility] Comment on above: GFR Calc Estimated GFR (MDRD) Non-Af Amer 80 mL/min >60 [facility] Comment on above: Non- GFR Calc 31.7 pg 27.0-32.0 [facility] 14.2 % 11.6-14.6 [facility] 53.5 fl 35.1-43.9 [facility] 0.200 % 0.0-0.9 [facility] 0 % 0-5 [facility] 80 mL/min >60 [facility] 96 mL/min >60 [facility] 15.8 RATIO 10-20 [facility] 29.0 mmol/L 21.0-32.0 [facility] Platelets bldOrdered By: Dr. Anderson on 05-19-2022 Platelets (Bld) [#/Vol] 340 10*3/uL 150-450 [facility] Serum or plasma calcium moriah urement (mass/volume)Ordered By: Dr. Anderson on 05-19-2022 Calcium [Mass/Vol] 8.7 mg/dL 8.5-10.1 [facility] Serum or plasma creatinine m easurement (mass/volume)Ordered By: Dr. Anderson on 05-19-2022 Creatinine [Mass/Vol] 0.76 mg/dL 0.55-1.02 [facility] Comment on above: The validity of the calculated GFR & GFRAA in patients over 70 years has not been determined. Clinical correlation is essential. Serum or plasma urea nitroge n measurement (mass/volume)Ordered By: Dr. Anderson on 05-19-2022 Urea nitrogen [Mass/Vol] 12 mg/dL 7-18 [facility] Thin prep Papanicolaou smear with manual screeningOrdered By: Dr. Anderson on 05-19-2022 Thin prep Papanicolaou smear with manual screening 4 5-15 [facility] Absolute lymphocyte countOrd ered By: Dr. Anderson on 05-12-2022 Lymphocytes Auto (Unsp spec) [#/Vol] 1.90 10*3/uL 0.83-4.51 [facility] Basophil percentageOrdered B y: Dr. Anderson on 05-12-2022 Basophil percentage 90 mg/dL 74-106 [facility] Basophil percentage 141 mmol/L 136-145 [facility] Basophil percentage 4.6 mmol/L 3.5-5.1 [facility] Basophil percentage 105 mmol/L 98-107 [facility] Basophils (Bld) [#/Vol] 5.6 10*3/uL 4.4-11.0 [facility] Basophils (Bld) [#/Vol] 2.7 10*3/uL 2.0-7.7 [facility] Basophils/100 WBC (Bld) 0.9 % 0-1 [facility] Basophils/100 WBC (Bld) 48.5 % 47-70 [facility] Basophils/100 WBC (Bld) 7.3 % 0-5 [facility] Chloride [Moles/Vol] 105 mmol/L 98-107 [facility] Eosinophils/100 WBC (Bld) 7.3 % 0-5 [facility] Glucose [Mass/Vol] 90 mg/dL 74-106 [facility] Neutrophils (Bld) [#/Vol] 2.7 10*3/uL 2.0-7.7 [facility] Neutrophils/100 WBC (Bld) 48.5 % 47-70 [facility] Potassium [Moles/Vol] 4.6 mmol/L 3.5-5.1 [facility] Sodium [Moles/Vol] 141 mmol/L 136-145 [facility] WBC (Bld) [#/Vol] 5.6 10*3/uL 4.4-11.0 [facility] Blood erythrocytes count (nu mber/volume)Ordered By: Dr. Anderson on 05-12-2022 RBC (Bld) [#/Vol] 3.66 10*6/uL 4.2-5.4 [facility] Blood hemoglobin measurement (mass/volume)Ordered By: Dr. Anderson on 05-12-2022 Hemoglobin (Bld) [Mass/Vol] 11.4 g/dL 12.0-15.0 [facility] Blood lymphocytes/100 leukoc ytesOrdered By: Dr. Anderson on 05-12-2022 Lymphocytes/100 WBC (Bld) 33.7 % 19-41 [facility] Blood monocytes/100 leukocyt esOrdered By: Dr. Anderson on 05-12-2022 Monocytes/100 WBC (Bld) 9.4 % 0-10 [facility] Blood platelet mean volumeOr dered By: Dr. Anderson on 05-12-2022 Platelet mean volume (Bld) [Entitic vol] 9.9 fL 6.2-12.0 [facility] Determination of erythrocyte mean corpuscular volume (MCV)Ordered By: Dr. Anderson on 05-12-2022 MCV (RBC) [Entitic vol] 102.7 fL 81-99 [facility] Hematocrit Auto (Bld) [Volum e fraction]Ordered By: Dr. Anderson on 05-12-2022 Hematocrit (Bld) [Volume fraction] 37.6 % 37-47 [facility] - Chemistry and C hemistry - challengeOrdered By: Dr. Anderson on 05-12-2022 CO2 [Moles/Vol] 32.0 mmol/L 21.0-32.0 [facility] Urea nitrogen/Creatinine [Mass ratio] 21.1 mg/mg 10-20 [facility] - Hematology and Cell countsOrdered By: Dr. Anderson on 05-12-2022 Erythrocyte distribution width (RBC) [Entitic vol] 52.5 fL 35.1-43.9 [facility] Erythrocyte distribution width (RBC) [Ratio] 13.9 % 11.6-14.6 [facility] Immature granulocytes/100 WBC (Bld) 0.200 % 0.0-0.9 [facility] Comment on above: IG% - Immature Granu locytes (promyelocytes, myelocytes and metamyelocytes) > 1% indicates that a LEFT SHIFT is Present. MCH (RBC) [Entitic mass] 31.1 pg 27.0-32.0 [facility] Nucleated RBC/100 WBC (Bld) [Ratio] 0 % 0-5 [facility] MCHC Auto (RBC) [Mass/Vol]Or dered By: Dr. Anderson on 05-12-2022 MCHC (RBC) [Mass/Vol] 30.3 g/dL 32-36 [facility] No Panel InformationOrdered By: Dr. Anderson on 05-12-2022 Estimated GFR (MDRD) Amer 104 mL/min >60 [facility] Comment on above: GFR Calc Estimated GFR (MDRD) Non-Af Amer 86 mL/min >60 [facility] Comment on above: Non- GFR Calc 31.1 pg 27.0-32.0 [facility] 13.9 % 11.6-14.6 [facility] 52.5 fl 35.1-43.9 [facility] 0.200 % 0.0-0.9 [facility] 0 % 0-5 [facility] 86 mL/min >60 [facility] 104 mL/min >60 [facility] 21.1 RATIO 10-20 [facility] 32.0 mmol/L 21.0-32.0 [facility] Platelets bldOrdered By: Dr. Anderson on 05-12-2022 Platelets (Bld) [#/Vol] 334 10*3/uL 150-450 [facility] Serum or plasma calcium moriah urement (mass/volume)Ordered By: Dr. Anderson on 05-12-2022 Calcium [Mass/Vol] 8.8 mg/dL 8.5-10.1 [facility] Serum or plasma creatinine m easurement (mass/volume)Ordered By: Dr. Anderson on 05-12-2022 Creatinine [Mass/Vol] 0.71 mg/dL 0.55-1.02 [facility] Comment on above: The validity of the calculated GFR & GFRAA in patients over 70 years has not been determined. Clinical correlation is essential. Serum or plasma urea nitroge n measurement (mass/volume)Ordered By: Dr. Anderson on 05-12-2022 Urea nitrogen [Mass/Vol] 15 mg/dL 7-18 [facility] Thin prep Papanicolaou smear with manual screeningOrdered By: Dr. Anderson on 05-12-2022 Thin prep Papanicolaou smear with manual screening 4 5-15 [facility] Absolute lymphocyte countOrd ered By: Dr. Anderson on 05-11-2022 Lymphocytes Auto (Unsp spec) [#/Vol] 2.56 10*3/uL 0.83-4.51 [facility] Basophil percentageOrdered B y: Dr. Anderson on 05-11-2022 Basophil percentage 96 mg/dL 74-106 [facility] Basophil percentage 171 mg/dL <200 [facility] Basophil percentage 203 mg/dL <199 [facility] Basophil percentage 141 mmol/L 136-145 [facility] Basophil percentage 4.7 mmol/L 3.5-5.1 [facility] Basophil percentage 106 mmol/L 98-107 [facility] Basophils (Bld) [#/Vol] 8.1 10*3/uL 4.4-11.0 [facility] Basophils (Bld) [#/Vol] 4.3 10*3/uL 2.0-7.7 [facility] Basophils/100 WBC (Bld) 0.7 % 0-1 [facility] Basophils/100 WBC (Bld) 53.3 % 47-70 [facility] Basophils/100 WBC (Bld) 5.7 % 0-5 [facility] Chloride [Moles/Vol] 106 mmol/L 98-107 [facility] Cholesterol [Mass/Vol] 171 mg/dL <200 [facility] Comment on above: <200 mg/dL Desirable 200-240 mg/dL Borderline >240 mg/dL High Risk Eosinophils/100 WBC (Bld) 5.7 % 0-5 [facility] Glucose [Mass/Vol] 96 mg/dL 74-106 [facility] Neutrophils (Bld) [#/Vol] 4.3 10*3/uL 2.0-7.7 [facility] Neutrophils/100 WBC (Bld) 53.3 % 47-70 [facility] Potassium [Moles/Vol] 4.7 mmol/L 3.5-5.1 [facility] Sodium [Moles/Vol] 141 mmol/L 136-145 [facility] Triglyceride [Mass/Vol] 203 mg/dL <199 [facility] Comment on above: The drugs N-Acetylcy steine and Metamizole may falsely depress this assay.Serum Triglycerides Reference Interval Normal <150 mg/dL Borderline high 150 - 199 mg/dL High 200 - 499 mg/dL Very High > or = 500 mg/dL WBC (Bld) [#/Vol] 8.1 10*3/uL 4.4-11.0 [facility] Blood erythrocytes count (nu mber/volume)Ordered By: Dr. Anderson on 05-11-2022 RBC (Bld) [#/Vol] 4.08 10*6/uL 4.2-5.4 [facility] Blood hemoglobin measurement (mass/volume)Ordered By: Dr. Anderson on 05-11-2022 Hemoglobin (Bld) [Mass/Vol] 13.2 g/dL 12.0-15.0 [facility] Blood lymphocytes/100 leukoc ytesOrdered By: Dr. Anderson on 05-11-2022 Lymphocytes/100 WBC (Bld) 31.5 % 19-41 [facility] Blood monocytes/100 leukocyt esOrdered By: Dr. Anderson on 05-11-2022 Monocytes/100 WBC (Bld) 8.6 % 0-10 [facility] Blood platelet mean volumeOr dered By: Dr. Anderson on 05-11-2022 Platelet mean volume (Bld) [Entitic vol] 10.3 fL 6.2-12.0 [facility] Determination of erythrocyte mean corpuscular volume (MCV)Ordered By: Dr. Anderson on 05-11-2022 MCV (RBC) [Entitic vol] 103.4 fL 81-99 [facility] Hematocrit Auto (Bld) [Volum e fraction]Ordered By: Dr. Anderson on 05-11-2022 Hematocrit (Bld) [Volume fraction] 42.2 % 37-47 [facility] Laboratory - Chemistry and C hemistry - challengeOrdered By: Dr. Anderson on 05-11-2022 CO2 [Moles/Vol] 30.0 mmol/L 21.0-32.0 [facility] Cobalamin (Vitamin B12) [Mass/Vol] 656 pg/mL 211-911 [facility] Urea nitrogen/Creatinine [Mass ratio] 17.4 mg/mg 10-20 [facility] - Hematology and Cell countsOrdered By: Dr. Anderson on 05-11-2022 Erythrocyte distribution width (RBC) [Entitic vol] 53.1 fL 35.1-43.9 [facility] Erythrocyte distribution width (RBC) [Ratio] 14.0 % 11.6-14.6 [facility] Immature granulocytes/100 WBC (Bld) 0.200 % 0.0-0.9 [facility] Comment on above: IG% - Immature Granu locytes (promyelocytes, myelocytes and metamyelocytes) > 1% indicates that a LEFT SHIFT is Present. MCH (RBC) [Entitic mass] 32.4 pg 27.0-32.0 [facility] Nucleated RBC/100 WBC (Bld) [Ratio] 0 % 0-5 [facility] MCHC Auto (RBC) [Mass/Vol]Or dered By: Dr. Anderson on 05-11-2022 MCHC (RBC) [Mass/Vol] 31.3 g/dL 32-36 [facility] No Panel InformationOrdered By: Dr. Anderson on 05-11-2022 Estimated GFR (MDRD) Amer 99 mL/min >60 [facility] Comment on above: GFR Calc Estimated GFR (MDRD) Non-Af Amer 82 mL/min >60 [facility] Comment on above: Non- GFR Calc Thyroid Stimulating Hormone (TSH) 4.72 uIU/mL 0.358-3.74 [facility] 32.4 pg 27.0-32.0 [facility] 14.0 % 11.6-14.6 [facility] 53.1 fl 35.1-43.9 [facility] 0.200 % 0.0-0.9 [facility] 0 % 0-5 [facility] 82 mL/min >60 [facility] 99 mL/min >60 [facility] 17.4 RATIO 10-20 [facility] 30.0 mmol/L 21.0-32.0 [facility] 4.72 uIU/mL 0.358-3.74 [facility] 656 pg/mL 211-911 [facility] Platelets bldOrdered By: Dr. Anderson on 05-11-2022 Platelets (Bld) [#/Vol] 398 10*3/uL 150-450 [facility] Serum or plasma calcium moriah urement (mass/volume)Ordered By: Dr. Anderson on 05-11-2022 Calcium [Mass/Vol] 9.1 mg/dL 8.5-10.1 [facility] Serum or plasma cholesterol in HDL measurement (mass/volume)Ordered By: Dr. Anderson on 05-11-2022 Cholesterol in HDL [Mass/Vol] 49 mg/dL >40 [facility] Comment on above: The drugs N-Acetylcy steine and Metamizole may falsely depress this assay. Reference Range HDL <40 mg/dL Low HDL Cholesterol HDL >or= 60 mg/dL High HDL Cholesterol Serum or plasma cholesterol in VLDL measurement (mass/volume)Ordered By: Dr. Anderson on 05-11-2022 Cholesterol in VLDL [Mass/Vol] 41 mg/dL 5-40 [facility] Serum or plasma creatinine m easurement (mass/volume)Ordered By: Dr. Anderson on 05-11-2022 Creatinine [Mass/Vol] 0.74 mg/dL 0.55-1.02 [facility] Comment on above: The validity of the calculated GFR & GFRAA in patients over 70 years has not been determined. Clinical correlation is essential. Serum or plasma low density lipoprotein (LDL) cholesterol measurement (mass/volume)Ordered By: Dr. Anderson on 05-11-2022 Cholesterol in LDL [Mass/Vol] 81 mg/dL 0-130 [facility] Serum or plasma urea nitroge n measurement (mass/volume)Ordered By: Dr. Anderson on 05-11-2022 Urea nitrogen [Mass/Vol] 13 mg/dL 7-18 [facility] Thin prep Papanicolaou smear with manual screeningOrdered By: Dr. Anderson on 05-11-2022 Thin prep Papanicolaou smear with manual screening 5 5-15 [facility] Whole blood hemoglobin A1c/t otal hemoglobin ratio (mass fraction)Ordered By: Dr. Anderson on 05-11-2022 HbA1c (Bld) [Mass fraction] 5.0 % 3.8-5.6 [facility] Comment on above: Normal < 5.7 % Predi abetic 5.7 - 6.4 % Diabetic >or= 6.5 % Please note range changes. Absolute lymphocyte countOrd ered By: Dr. Anderson on 05-05-2022 Lymphocytes Auto (Unsp spec) [#/Vol] 2.51 10*3/uL 0.83-4.51 [facility] Basophil percentageOrdered B y: Dr. Anderson on 05-05-2022 Basophils/100 WBC (Bld) 0.6 % 0-1 [facility] Chloride [Moles/Vol] 107 mmol/L 98-107 [facility] Eosinophils/100 WBC (Bld) 4.6 % 0-5 [facility] Glucose [Mass/Vol] 86 mg/dL 74-106 [facility] Neutrophils (Bld) [#/Vol] 3.3 10*3/uL 2.0-7.7 [facility] Neutrophils/100 WBC (Bld) 45.9 % 47-70 [facility] Potassium [Moles/Vol] 4.2 mmol/L 3.5-5.1 [facility] Sodium [Moles/Vol] 143 mmol/L 136-145 [facility] WBC (Bld) [#/Vol] 7.2 10*3/uL 4.4-11.0 [facility] Blood erythrocytes count (nu mber/volume)Ordered By: Dr. Anderson on 05-05-2022 RBC (Bld) [#/Vol] 3.73 10*6/uL 4.2-5.4 [facility] Blood hemoglobin measurement (mass/volume)Ordered By: Dr. Anderson on 05-05-2022 Hemoglobin (Bld) [Mass/Vol] 11.7 g/dL 12.0-15.0 [facility] Blood lymphocytes/100 leukoc ytesOrdered By: Dr. Anderson on 05-05-2022 Lymphocytes/100 WBC (Bld) 35.0 % 19-41 [facility] Blood monocytes/100 leukocyt esOrdered By: Dr. Anderson on 05-05-2022 Monocytes/100 WBC (Bld) 13.8 % 0-10 [facility] Blood platelet mean volumeOr dered By: Dr. Anderson on 05-05-2022 Platelet mean volume (Bld) [Entitic vol] 11.1 fL 6.2-12.0 [facility] Determination of erythrocyte mean corpuscular volume (MCV)Ordered By: Dr. Anderson on 05-05-2022 MCV (RBC) [Entitic vol] 101.1 fL 81-99 [facility] Hematocrit Auto (Bld) [Volum e fraction]Ordered By: Dr. Anderson on 05-05-2022 Hematocrit (Bld) [Volume fraction] 37.7 % 37-47 [facility] Laboratory - Chemistry and C hemistry - challengeOrdered By: Dr. Anderson on 05-05-2022 CO2 [Moles/Vol] 31.0 mmol/L 21.0-32.0 [facility] Urea nitrogen/Creatinine [Mass ratio] 12.7 mg/mg 10-20 [facility] - Hematology and Cell countsOrdered By: Dr. Anderson on 05-05-2022 Erythrocyte distribution width (RBC) [Entitic vol] 53.1 fL 35.1-43.9 [facility] Erythrocyte distribution width (RBC) [Ratio] 14.3 % 11.6-14.6 [facility] Immature granulocytes/100 WBC (Bld) 0.100 % 0.0-0.9 [facility] Comment on above: IG% - Immature Granu locytes (promyelocytes, myelocytes and metamyelocytes) > 1% indicates that a LEFT SHIFT is Present. MCH (RBC) [Entitic mass] 31.4 pg 27.0-32.0 [facility] Nucleated RBC/100 WBC (Bld) [Ratio] 0 % 0-5 [facility] MCHC Auto (RBC) [Mass/Vol]Or dered By: Dr. Anderson on 05-05-2022 MCHC (RBC) [Mass/Vol] 31.0 g/dL 32-36 [facility] No Panel InformationOrdered By: Dr. Anderson on 05-05-2022 Estimated GFR (MDRD) Amer 93 mL/min >60 [facility] Comment on above: GFR Calc Estimated GFR (MDRD) Non-Af Amer 76 mL/min >60 [facility] Comment on above: Non- GFR Calc Platelets bldOrdered By: Dr. Anderson on 05-05-2022 Platelets (Bld) [#/Vol] 275 10*3/uL 150-450 [facility] Serum or plasma calcium moriah urement (mass/volume)Ordered By: Dr. Anderson on 05-05-2022 Calcium [Mass/Vol] 9.0 mg/dL 8.5-10.1 [facility] Serum or plasma creatinine m easurement (mass/volume)Ordered By: Dr. Anderson on 05-05-2022 Creatinine [Mass/Vol] 0.79 mg/dL 0.55-1.02 [facility] Comment on above: The validity of the calculated GFR & GFRAA in patients over 70 years has not been determined. Clinical correlation is essential. Serum or plasma urea nitroge n measurement (mass/volume)Ordered By: Dr. Anderson on 05-05-2022 Urea nitrogen [Mass/Vol] 10 mg/dL 7-18 [facility] Thin prep Papanicolaou smear with manual screeningOrdered By: Dr. Anderson on 05-05-2022 Thin prep Papanicolaou smear with manual screening 5 -15 [facility] CBC With Platelet and Differ entialon 05-04-2022 Abs Imm Granulocytes 0.03 E9/L Normal [facility] Absolute Basophils 0.05 E9/L Normal 0.00-0.20 [facility] Absolute Eosinophils 0.25 E9/L Normal 0.05-0.50 [facility] Absolute Lymphocytes 1.97 E9/L Normal 1.50-4.00 [facility] Absolute Monocytes 0.95 E9/L Normal 0.10-0.95 [facility] Absolute Neutrophils 3.60 E9/L Normal 1.80-7.30 [facility] Basophils/100 WBC (Bld) 0.7 % Normal 0.0-2.0 [facility] Eosinophils/100 WBC (Bld) 3.6 % Normal 0.0-6.0 [facility] Hematocrit (Bld) [Volume fraction] 33.6 % Low 34.0-48.0 [facility] Hemoglobin (Bld) [Mass/Vol] 10.5 g/dL Low 11.5-15.5 [facility] Imm Granulocytes 0.4 % Normal 0.0-5.0 [facility] Lymphocytes/100 WBC (Bld) 28.8 % Normal 20.0-42.0 [facility] MCH (RBC) [Entitic mass] 31.6 pg Normal 26.0-35.0 [facility] MCHC 31.3 % Low 32.0-34.5 [facility] MCV (RBC) [Entitic vol] 101.2 fL High 80.0-99.9 [facility] Monocytes/100 WBC (Bld) 13.9 % High 2.0-12.0 [facility] Neutrophils/100 WBC (Bld) 52.6 % Normal 43.0-80.0 [facility] Platelet Count 231 E9/L Normal 130-450 [facility] Platelet mean volume (Bld) [Entitic vol] 10.8 fL Normal 7.0-12.0 [facility] RBC 3.32 E12/L Low 3.50-5.50 [facility] RDW 14.4 fL Normal 11.5-15.0 [facility] WBC 6.9 E9/L Normal 4.5-11.5 [facility] Comprehensive Metabolic Pane jamal 05-04-2022 Albumin [Mass/Vol] 3.0 g/dL Low 3.5-5.2 [facility] ALP [Catalytic activity/Vol] 72 U/L Normal 35-104 [facility] ALT [Catalytic activity/Vol] 5 U/L Normal 0-32 [facility] Anion gap [Moles/Vol] 7 mmol/L Normal 7-16 [facility] AST [Catalytic activity/Vol] 18 U/L Normal 0-31 [facility] Bilirubin [Mass/Vol] 0.2 mg/dL Normal 0.0-1.2 [facility] Calcium [Mass/Vol] 8.6 mg/dL Normal 8.6-10.2 [facility] Chloride [Moles/Vol] 106 mmol/L Normal 98-107 [facility] CO2 [Moles/Vol] 30 mmol/L High 22-29 [facility] Creatinine [Mass/Vol] 0.7 mg/dL Normal 0.5-1.0 [facility] GFR Calculated >60 Normal >=60 [facility] Comment on above: Result Comment: Mariel chatmanc calculator link [email or web address]_[email or web address] Effective Dec 21, 2021 These results are not intended for use in patients <18 years of age. eGFR results are calculated without a race factor using the 2020 CKD-EPI equation. Careful clinical correlation is recommended, particularly when comparing to results calculated using previous equations. The CKD-EPI equation is less accurate in patients with extremes of muscle mass, extra-renal metabolism of creatinine, excessive creatinine ingestion, or following therapy that affects renal tubular secretion. Glucose [Mass/Vol] 74 mg/dL Normal 74-99 [facility] Potassium [Moles/Vol] 4.6 mmol/L Normal 3.5-5.0 [facility] Protein [Mass/Vol] 5.8 g/dL Low 6.4-8.3 [facility] Sodium [Moles/Vol] 143 mmol/L Normal 132-146 [facility] Urea nitrogen [Mass/Vol] 9 mg/dL Normal 6-23 [facility] Valproic Acid /Depakene Leve jamal 05-04-2022 Valproic Acid 35 mcg/mL Low 50-100 [facility] CBC With Platelet and Differ entialon 04-27-2022 Abs Imm Granulocytes 0.01 E9/L Normal [facility] Absolute Basophils 0.06 E9/L Normal 0.00-0.20 [facility] Absolute Eosinophils 0.24 E9/L Normal 0.05-0.50 [facility] Absolute Lymphocytes 1.97 E9/L Normal 1.50-4.00 [facility] Absolute Monocytes 0.68 E9/L Normal 0.10-0.95 [facility] Absolute Neutrophils 2.07 E9/L Normal 1.80-7.30 [facility] Basophils/100 WBC (Bld) 1.2 % Normal 0.0-2.0 [facility] Eosinophils/100 WBC (Bld) 4.8 % Normal 0.0-6.0 [facility] Hematocrit (Bld) [Volume fraction] 35.7 % Normal 34.0-48.0 [facility] Hemoglobin (Bld) [Mass/Vol] 11.5 g/dL Normal 11.5-15.5 [facility] Imm Granulocytes 0.2 % Normal 0.0-5.0 [facility] Lymphocytes/100 WBC (Bld) 39.2 % Normal 20.0-42.0 [facility] MCH (RBC) [Entitic mass] 31.1 pg Normal 26.0-35.0 [facility] MCHC 32.2 % Normal 32.0-34.5 [facility] MCV (RBC) [Entitic vol] 96.5 fL Normal 80.0-99.9 [facility] Monocytes/100 WBC (Bld) 13.5 % High 2.0-12.0 [facility] Neutrophils/100 WBC (Bld) 41.1 % Low 43.0-80.0 [facility] Platelet Count 230 E9/L Normal 130-450 [facility] Platelet mean volume (Bld) [Entitic vol] 11.8 fL Normal 7.0-12.0 [facility] RBC 3.70 E12/L Normal 3.50-5.50 [facility] RDW 14.2 fL Normal 11.5-15.0 [facility] WBC 5.0 E9/L Normal 4.5-11.5 [facility] Comprehensive Metabolic Pane jamal 04-27-2022 Albumin [Mass/Vol] 3.5 g/dL Normal 3.5-5.2 [facility] ALP [Catalytic activity/Vol] 81 U/L Normal 35-104 [facility] ALT [Catalytic activity/Vol] 10 U/L Normal 0-32 [facility] Anion gap [Moles/Vol] 8 mmol/L Normal 7-16 [facility] AST [Catalytic activity/Vol] 27 U/L Normal 0-31 [facility] Bilirubin [Mass/Vol] mg/dL Normal 0.0-1.2 [facility] Calcium [Mass/Vol] 8.8 mg/dL Normal 8.6-10.2 [facility] Chloride [Moles/Vol] 104 mmol/L Normal 98-107 [facility] CO2 [Moles/Vol] 31 mmol/L High 22-29 [facility] Creatinine [Mass/Vol] 0.7 mg/dL Normal 0.5-1.0 [facility] GFR Calculated >60 Normal >=60 [facility] Comment on above: Result Comment: Mariel chatmanc calculator link [email or web address]://www.[email or web address]/[email or web address]_[email or web address] Effective Dec 21, 2021 These results are not intended for use in patients <18 years of age. eGFR results are calculated without a race factor using the 2020 CKD-EPI equation. Careful clinical correlation is recommended, particularly when comparing to results calculated using previous equations. The CKD-EPI equation is less accurate in patients with extremes of muscle mass, extra-renal metabolism of creatinine, excessive creatinine ingestion, or following therapy that affects renal tubular secretion. Glucose [Mass/Vol] 81 mg/dL Normal 74-99 [facility] Potassium [Moles/Vol] 4.2 mmol/L Normal 3.5-5.0 [facility] Protein [Mass/Vol] 6.3 g/dL Low 6.4-8.3 [facility] Sodium [Moles/Vol] 143 mmol/L Normal 132-146 [facility] Urea nitrogen [Mass/Vol] 14 mg/dL Normal 6-23 [facility] Basophil percentageOrdered B y: Dr. Anderson on 04-19-2022 Chloride [Moles/Vol] 106 mmol/L 98-107 [facility] Glucose [Mass/Vol] 80 mg/dL 74-106 [facility] Potassium [Moles/Vol] 4.4 mmol/L 3.5-5.1 [facility] Sodium [Moles/Vol] 142 mmol/L 136-145 [facility] WBC (Bld) [#/Vol] 5.9 10*3/uL 4.4-11.0 [facility] Blood erythrocytes count (nu mber/volume)Ordered By: Dr. Anderson on 04-19-2022 RBC (Bld) [#/Vol] 3.41 10*6/uL 4.2-5.4 [facility] Blood hemoglobin measurement (mass/volume)Ordered By: Dr. Anderson on 04-19-2022 Hemoglobin (Bld) [Mass/Vol] 10.6 g/dL 12.0-15.0 [facility] Blood platelet mean volumeOr dered By: Dr. Anderson on 04-19-2022 Platelet mean volume (Bld) [Entitic vol] 10.1 fL 6.2-12.0 [facility] Determination of erythrocyte mean corpuscular volume (MCV)Ordered By: Dr. Anderson on 04-19-2022 MCV (RBC) [Entitic vol] 98.5 fL 81-99 [facility] Hematocrit Auto (Bld) [Volum e fraction]Ordered By: Dr. Anderson on 04-19-2022 Hematocrit (Bld) [Volume fraction] 33.6 % 37-47 [facility] - Chemistry and C hemistry - challengeOrdered By: Dr. Anderson on 04-19-2022 CO2 [Moles/Vol] 30.0 mmol/L 21.0-32.0 [facility] Urea nitrogen/Creatinine [Mass ratio] 32.4 mg/mg 10-20 [facility] - Hematology and Cell countsOrdered By: Dr. Anderson on 04-19-2022 Erythrocyte distribution width (RBC) [Entitic vol] 48.2 fL 35.1-43.9 [facility] Erythrocyte distribution width (RBC) [Ratio] 13.3 % 11.6-14.6 [facility] MCH (RBC) [Entitic mass] 31.1 pg 27.0-32.0 [facility] MCHC Auto (RBC) [Mass/Vol]Or dered By: Dr. Anderson on 04-19-2022 MCHC (RBC) [Mass/Vol] 31.5 g/dL 32-36 [facility] No Panel InformationOrdered By: Dr. Anderson on 04-19-2022 Estimated GFR (MDRD) Amer 100 mL/min >60 [facility] Comment on above: GFR Calc Estimated GFR (MDRD) Non-Af Amer 82 mL/min >60 [facility] Comment on above: Non- GFR Calc Platelets bldOrdered By: Dr. Anderson on 04-19-2022 Platelets (Bld) [#/Vol] 347 10*3/uL 150-450 [facility] Serum or plasma C reactive p rotein measurement (mass/volume)Ordered By: Dr. Anderson on 04-19-2022 CRP [Mass/Vol] 16.00 mg/L 0.0-3.0 [facility] Comment on above: C-Reactive Protein ( CRP) provides useful information for thediagnosis, therapy and monitoring of inflammatory processesand associated diseases. For the evaluation of Relative Riskfor Cardiovascular Disease, a High Sensitivity CRP (HSCRP)should be ordered. Serum or plasma calcium moriah urement (mass/volume)Ordered By: Dr. Anderson on 04-19-2022 Calcium [Mass/Vol] 8.5 mg/dL 8.5-10.1 [facility] Serum or plasma creatinine m easurement (mass/volume)Ordered By: Dr. Anderson on 04-19-2022 Creatinine [Mass/Vol] 0.74 mg/dL 0.55-1.02 [facility] Comment on above: The validity of the calculated GFR & GFRAA in patients over 70 years has not been determined. Clinical correlation is essential. Serum or plasma urea nitroge n measurement (mass/volume)Ordered By: Dr. Anderson on 04-19-2022 Urea nitrogen [Mass/Vol] 24 mg/dL 7-18 [facility] Thin prep Papanicolaou smear with manual screeningOrdered By: Dr. Anderson on 04-19-2022 Thin prep Papanicolaou smear with manual screening 6 5-15 [facility] Culture, urineOrdered By: Dr Alicia Ocampo on 04-18-2022 Bacteria identified Cx Nom (U) Culture exhibits no growth. [facility] Absolute lymphocyte countOrd ered By: Dr. Ocampo on 04-15-2022 Lymphocytes Auto (Unsp spec) [#/Vol] 2.54 10*3/uL 0.83-4.51 [facility] Basophil percentageOrdered B y: Dr. Ocampo on 04-15-2022 Basophil percentage 0 SEEN /hpf 0-5 [facility] Basophils/100 WBC (Bld) 0.9 % 0-1 [facility] Bilirubin [Mass/Vol] 0.20 mg/dL 0.20-1.00 [facility] Comment on above: For patients on eltr ombopag therapy, use of Dimension [place] TBIL is not recommended. Chloride [Moles/Vol] 102 mmol/L 98-107 [facility] Eosinophils/100 WBC (Bld) 4.3 % 0-5 [facility] Glucose [Mass/Vol] 100 mg/dL 74-106 [facility] Comment on above: Fasting Glucose resu lt from 100 to 125 mg/dL suggests IMPAIRED HOMEOSTASIS per A.D.A. criteria. Neutrophils (Bld) [#/Vol] 3.9 10*3/uL 2.0-7.7 [facility] Neutrophils/100 WBC (Bld) 50.0 % 47-70 [facility] Potassium [Moles/Vol] 4.5 mmol/L 3.5-5.1 [facility] Protein [Mass/Vol] 7.1 g/dL 6.4-8.2 [facility] Sodium [Moles/Vol] 140 mmol/L 136-145 [facility] WBC (Bld) [#/Vol] 7.8 10*3/uL 4.4-11.0 [facility] Bilirubin Test strip Ql (U)O rdered By: Dr. Ocampo on 04-15-2022 Bilirubin Ql (U) Negative Negative [facility] Blood erythrocytes count (nu mber/volume)Ordered By: Dr. Ocampo on 04-15-2022 RBC (Bld) [#/Vol] 3.57 10*6/uL 4.2-5.4 [facility] Blood hemoglobin measurement (mass/volume)Ordered By: Dr. Ocampo on 04-15-2022 Hemoglobin (Bld) [Mass/Vol] 11.0 g/dL 12.0-15.0 [facility] Blood lymphocytes/100 leukoc ytesOrdered By: Dr. Ocampo on 04-15-2022 Lymphocytes/100 WBC (Bld) 32.4 % 19-41 [facility] Blood monocytes/100 leukocyt esOrdered By: Dr. Ocampo on 04-15-2022 Monocytes/100 WBC (Bld) 12.1 % 0-10 [facility] Blood platelet mean volumeOr dered By: Dr. Ocampo on 04-15-2022 Platelet mean volume (Bld) [Entitic vol] 9.8 fL 6.2-12.0 [facility] Determination of erythrocyte mean corpuscular volume (MCV)Ordered By: Dr. Ocampo on 04-15-2022 MCV (RBC) [Entitic vol] 97.2 fL 81-99 [facility] Hematocrit Auto (Bld) [Volum e fraction]Ordered By: Dr. Ocampo on 04-15-2022 Hematocrit (Bld) [Volume fraction] 34.7 % 37-47 [facility] INR in Blood by Coagulation assayOrdered By: Dr. Ocampo on 04-15-2022 INR Coag (Bld) [Relative time] 1.1 {INR} [facility] Ketones Test strip Ql (U)Ord ered By: Dr. Ocampo on 04-15-2022 Ketones Ql (U) Negative Negative [facility] Laboratory - Chemistry and C hemistry - challengeOrdered By: Dr. Ocampo on 04-15-2022 ALP [Catalytic activity/Vol] 92 U/L 45-117 [facility] ALT [Catalytic activity/Vol] 15 U/L 13-56 [facility] CO2 [Moles/Vol] 32.0 mmol/L 21.0-32.0 [facility] Globulin (S) [Mass/Vol] 3.6 g/dL 2.2-4.2 [facility] Urea nitrogen/Creatinine [Mass ratio] 28.1 mg/mg 10-20 [facility] Laboratory - CoagulationOrde red By: Dr. Ocampo on 04-15-2022 aPTT Coag (Bld) [Time] 29.1 s 24.1-36.2 [facility] PT Coag (PPP) [Time] 13.5 s 11.7-14.9 [facility] Laboratory - Hematology and Cell countsOrdered By: Dr. Ocampo on 04-15-2022 Erythrocyte distribution width (RBC) [Entitic vol] 44.9 fL 35.1-43.9 [facility] Erythrocyte distribution width (RBC) [Ratio] 12.8 % 11.6-14.6 [facility] Immature granulocytes/100 WBC (Bld) 0.300 % 0.0-0.9 [facility] Comment on above: IG% - Immature Granu locytes (promyelocytes, myelocytes and metamyelocytes) > 1% indicates that a LEFT SHIFT is Present. MCH (RBC) [Entitic mass] 30.8 pg 27.0-32.0 [facility] Nucleated RBC/100 WBC (Bld) [Ratio] 0 % 0-5 [facility] MCHC Auto (RBC) [Mass/Vol]Or dered By: Dr. Ocampo on 04-15-2022 MCHC (RBC) [Mass/Vol] 31.7 g/dL 32-36 [facility] Mucus LM Ql (Urine sed)Order ed By: Dr. Ocampo on 04-15-2022 Mucus Ql (Urine sed) 0 SEEN /hpf [facility] Nitrite Test strip Ql (U)Ord ered By: Dr. Ocampo on 04-15-2022 Nitrite Ql (U) Negative Negative [facility] No Panel InformationOrdered By: Dr. Ocampo on 04-15-2022 Estimated Creatinine Clearance Calc 44.24 ml/min [facility] Estimated GFR (MDRD) Amer 85 mL/min >60 [facility] Comment on above: GFR Calc Estimated GFR (MDRD) Non-Af Amer 70 mL/min >60 [facility] Comment on above: Non- GFR Calc Platelets bldOrdered By: Dr. Ocampo on 04-15-2022 Platelets (Bld) [#/Vol] 390 10*3/uL 150-450 [facility] Protein Test strip Ql (U)Ord ered By: Dr. Ocampo on 04-15-2022 Protein Ql (U) 15 mg/dl Negative [facility] Serum or plasma albumin moriah urement (mass/volume)Ordered By: Dr. Ocampo on 04-15-2022 Albumin [Mass/Vol] 3.5 g/dL 3.2-5.0 [facility] Serum or plasma albumin/glob ulin mass ratioOrdered By: Dr. Ocampo on 04-15-2022 Albumin/Globulin [Mass ratio] 1.0 {ratio} 0.9-2.4 [facility] Serum or plasma calcium moriah urement (mass/volume)Ordered By: Dr. Ocampo on 04-15-2022 Calcium [Mass/Vol] 9.0 mg/dL 8.5-10.1 [facility] Serum or plasma creatinine m easurement (mass/volume)Ordered By: Dr. Ocampo on 04-15-2022 Creatinine [Mass/Vol] 0.85 mg/dL 0.55-1.02 [facility] Comment on above: The validity of the calculated GFR & GFRAA in patients over 70 years has not been determined. Clinical correlation is essential. Serum or plasma urea nitroge n measurement (mass/volume)Ordered By: Dr. Ocampo on 04-15-2022 Urea nitrogen [Mass/Vol] 24 mg/dL 7-18 [facility] Squamous epithelial cells de tection in urine sediment by light microscopyOrdered By: Dr. Ocampo on 04-15-2022 Epithelial cells.squamous LM Ql (Urine sed) 0 SEEN /hpf 5-10 [facility] Thin prep Papanicolaou smear with manual screeningOrdered By: Dr. Ocampo on 04-15-2022 Thin prep Papanicolaou smear with manual screening 18 U/L 15-37 [facility] Thin prep Papanicolaou smear with manual screening 6 5-15 [facility] Urine blood detectionOrdered By: Dr. Ocampo on 04-15-2022 RBC Ql (U) Negative Negative [facility] RBC Ql (U) 0 SEEN /hpf 0-5 [facility] Urine clarityOrdered By: Dr. Ocampo on 04-15-2022 Clarity (U) Clear Clear [facility] Urine color determinationOrd ered By: Dr. Ocampo on 04-15-2022 Color (U) Yellow Yellow [facility] Urine glucose detectionOrder ed By: Dr. Ocampo on 04-15-2022 Glucose Ql (U) Negative Normal [facility] Urine leukocyte esterase det ection by dipstickOrdered By: Dr. Ocampo on 04-15-2022 Leukocyte esterase Test strip Ql (U) Negative Negative [facility] Urine pHOrdered By: Dr. Ocampo o n 04-15-2022 pH (U) 5.0 [pH] 5.0 - 8.0 [facility] Urine sediment bacteria coun t by microscopy (number/high power field)Ordered By: Dr. Ocampo on 04-15-2022 Bacteria LM.HPF (Urine sed) [#/Area] 0 /[HPF] None Seen [facility] Urine specific gravity measu rementOrdered By: Dr. Ocampo on 04-15-2022 Specific gravity (U) [Rel density] 1.020 1.002-1.030 [facility] Urobilinogen Auto test strip Ql (U)Ordered By: Dr. Ocampo on 04-15-2022 Urobilinogen Ql (U) Normal mg/dl Normal [facility] Culture, urineOrdered By: Dr Alicia Anderson on 03-31-2022 Bacteria identified Cx Nom (U) Enterococcus faecalis [facility] No Panel InformationOrdered By: Dr. Anderson on 03-30-2022 Thyroid Stimulating Hormone (TSH) 3.00 uIU/mL 0.358-3.74 [facility] Absolute lymphocyte countOrd ered By: Dr. Anderson on 03-29-2022 Lymphocytes Auto (Unsp spec) [#/Vol] 2.37 10*3/uL 0.83-4.51 [facility] Basophil percentageOrdered B y: Dr. Anderson on 03-29-2022 Basophils/100 WBC (Bld) 0.9 % 0-1 [facility] Chloride [Moles/Vol] 108 mmol/L 98-107 [facility] Eosinophils/100 WBC (Bld) 6.7 % 0-5 [facility] Glucose [Mass/Vol] 81 mg/dL 74-106 [facility] Neutrophils (Bld) [#/Vol] 2.2 10*3/uL 2.0-7.7 [facility] Neutrophils/100 WBC (Bld) 38.3 % 47-70 [facility] Potassium [Moles/Vol] 3.9 mmol/L 3.5-5.1 [facility] Sodium [Moles/Vol] 144 mmol/L 136-145 [facility] WBC (Bld) [#/Vol] 5.7 10*3/uL 4.4-11.0 [facility] Blood erythrocytes count (nu mber/volume)Ordered By: Dr. Anderson on 03-29-2022 RBC (Bld) [#/Vol] 3.71 10*6/uL 4.2-5.4 [facility] Blood hemoglobin measurement (mass/volume)Ordered By: Dr. Anderson on 03-29-2022 Hemoglobin (Bld) [Mass/Vol] 11.4 g/dL 12.0-15.0 [facility] Blood lymphocytes/100 leukoc ytesOrdered By: Dr. Anderson on 03-29-2022 Lymphocytes/100 WBC (Bld) 41.9 % 19-41 [facility] Blood monocytes/100 leukocyt esOrdered By: Dr. Anderson on 03-29-2022 Monocytes/100 WBC (Bld) 12.0 % 0-10 [facility] Blood platelet mean volumeOr dered By: Dr. Anderson on 03-29-2022 Platelet mean volume (Bld) [Entitic vol] 10.5 fL 6.2-12.0 [facility] Determination of erythrocyte mean corpuscular volume (MCV)Ordered By: Dr. Anderson on 03-29-2022 MCV (RBC) [Entitic vol] 99.7 fL 81-99 [facility] Hematocrit Auto (Bld) [Volum e fraction]Ordered By: Dr. Anderson on 03-29-2022 Hematocrit (Bld) [Volume fraction] 37.0 % 37-47 [facility] Laboratory - Chemistry and C hemistry - challengeOrdered By: Dr. Anderson on 03-29-2022 CO2 [Moles/Vol] 30.0 mmol/L 21.0-32.0 [facility] Urea nitrogen/Creatinine [Mass ratio] 15.4 mg/mg 10-20 [facility] Laboratory - Hematology and Cell countsOrdered By: Dr. Anderson on 03-29-2022 Erythrocyte distribution width (RBC) [Entitic vol] 49.0 fL 35.1-43.9 [facility] Erythrocyte distribution width (RBC) [Ratio] 13.4 % 11.6-14.6 [facility] Immature granulocytes/100 WBC (Bld) 0.200 % 0.0-0.9 [facility] Comment on above: IG% - Immature Granu locytes (promyelocytes, myelocytes and metamyelocytes) > 1% indicates that a LEFT SHIFT is Present. MCH (RBC) [Entitic mass] 30.7 pg 27.0-32.0 [facility] Nucleated RBC/100 WBC (Bld) [Ratio] 0 % 0-5 [facility] MCHC Auto (RBC) [Mass/Vol]Or dered By: Dr. Anderson on 03-29-2022 MCHC (RBC) [Mass/Vol] 30.8 g/dL 32-36 [facility] No Panel InformationOrdered By: Dr. Anderson on 03-29-2022 Estimated GFR (MDRD) Amer 104 mL/min >60 [facility] Comment on above: GFR Calc Estimated GFR (MDRD) Non-Af Amer 86 mL/min >60 [facility] Comment on above: Non- GFR Calc Platelets bldOrdered By: Dr. Anderson on 03-29-2022 Platelets (Bld) [#/Vol] 277 10*3/uL 150-450 [facility] Serum or plasma calcium moriah urement (mass/volume)Ordered By: Dr. Anderson on 03-29-2022 Calcium [Mass/Vol] 8.5 mg/dL 8.5-10.1 [facility] Serum or plasma creatinine m easurement (mass/volume)Ordered By: Dr. Anderson on 03-29-2022 Creatinine [Mass/Vol] 0.71 mg/dL 0.55-1.02 [facility] Comment on above: The validity of the calculated GFR & GFRAA in patients over 70 years has not been determined. Clinical correlation is essential. Serum or plasma urea nitroge n measurement (mass/volume)Ordered By: Dr. Anderson on 03-29-2022 Urea nitrogen [Mass/Vol] 11 mg/dL 7-18 [facility] Thin prep Papanicolaou smear with manual screeningOrdered By: Dr. Anderson on 03-29-2022 Thin prep Papanicolaou smear with manual screening 6 5-15 [facility] Bilirubin Test strip Ql (U)O rdered By: Dr. Anderson on 03-28-2022 Bilirubin Ql (U) Negative Negative [facility] Ketones Test strip Ql (U)Ord ered By: Dr. Anderson on 03-28-2022 Ketones Ql (U) Negative Negative [facility] Nitrite Test strip Ql (U)Ord ered By: Dr. Anderson on 03-28-2022 Nitrite Ql (U) Negative Negative [facility] Protein Test strip Ql (U)Ord ered By: Dr. Anderson on 03-28-2022 Protein Ql (U) Negative Negative [facility] Urine blood detectionOrdered By: Dr. Anderson on 03-28-2022 RBC Ql (U) Negative Negative [facility] Urine clarityOrdered By: Dr. Anderson on 03-28-2022 Clarity (U) Sl. Cloudy Clear [facility] Urine color determinationOrd ered By: Dr. Anderson on 03-28-2022 Color (U) Yellow Yellow [facility] Urine glucose detectionOrder ed By: Dr. Anderson on 03-28-2022 Glucose Ql (U) Normal mg/dl Normal [facility] Urine leukocyte esterase det ection by dipstickOrdered By: Dr. Anderson on 03-28-2022 Leukocyte esterase Test strip Ql (U) 25 /ul Negative [facility] Urine pHOrdered By: Dr. Andres owen on 03-28-2022 pH (U) 6.0 [pH] 5.0 - 8.0 [facility] Urine specific gravity measu rementOrdered By: Dr. Anderson on 03-28-2022 Specific gravity (U) [Rel density] 1.010 1.002-1.030 [facility] Urobilinogen Auto test strip Ql (U)Ordered By: Dr. Anderson on 03-28-2022 Urobilinogen Ql (U) Normal mg/dl Normal [facility] Absolute lymphocyte countOrd ered By: Dr. Anderson on 03-11-2022 Lymphocytes Auto (Unsp spec) [#/Vol] 2.38 10*3/uL 0.83-4.51 [facility] Basophil percentageOrdered B y: Dr. Anderson on 03-11-2022 Basophils/100 WBC (Bld) 0.8 % 0-1 [facility] Bilirubin [Mass/Vol] 0.30 mg/dL 0.20-1.00 [facility] Comment on above: For patients on eltr ombopag therapy, use of Dimension [place] TBIL is not recommended. Chloride [Moles/Vol] 107 mmol/L 98-107 [facility] Eosinophils/100 WBC (Bld) 5.4 % 0-5 [facility] Glucose [Mass/Vol] 85 mg/dL 74-106 [facility] Neutrophils (Bld) [#/Vol] 2.7 10*3/uL 2.0-7.7 [facility] Neutrophils/100 WBC (Bld) 44.6 % 47-70 [facility] Potassium [Moles/Vol] 4.1 mmol/L 3.5-5.1 [facility] Protein [Mass/Vol] 5.7 g/dL 6.4-8.2 [facility] Sodium [Moles/Vol] 141 mmol/L 136-145 [facility] WBC (Bld) [#/Vol] 6.1 10*3/uL 4.4-11.0 [facility] Blood erythrocytes count (nu mber/volume)Ordered By: Dr. Anderson on 03-11-2022 RBC (Bld) [#/Vol] 3.72 10*6/uL 4.2-5.4 [facility] Blood hemoglobin measurement (mass/volume)Ordered By: Dr. Anderson on 03-11-2022 Hemoglobin (Bld) [Mass/Vol] 11.3 g/dL 12.0-15.0 [facility] Blood lymphocytes/100 leukoc ytesOrdered By: Dr. Anderson on 03-11-2022 Lymphocytes/100 WBC (Bld) 39.1 % 19-41 [facility] Blood monocytes/100 leukocyt esOrdered By: Dr. Anderson on 03-11-2022 Monocytes/100 WBC (Bld) 9.9 % 0-10 [facility] Blood platelet mean volumeOr dered By: Dr. Anderson on 03-11-2022 Platelet mean volume (Bld) [Entitic vol] 10.6 fL 6.2-12.0 [facility] Determination of erythrocyte mean corpuscular volume (MCV)Ordered By: Dr. Anderson on 03-11-2022 MCV (RBC) [Entitic vol] 99.2 fL 81-99 [facility] Hematocrit Auto (Bld) [Volum e fraction]Ordered By: Dr. Anderson on 03-11-2022 Hematocrit (Bld) [Volume fraction] 36.9 % 37-47 [facility] Laboratory - Chemistry and C hemistry - challengeOrdered By: Dr. Anderson on 03-11-2022 ALP [Catalytic activity/Vol] 90 U/L 45-117 [facility] ALT [Catalytic activity/Vol] 14 U/L 13-56 [facility] CO2 [Moles/Vol] 32.0 mmol/L 21.0-32.0 [facility] Cobalamin (Vitamin B12) [Mass/Vol] 1100 pg/mL 211-911 [facility] Globulin (S) [Mass/Vol] 2.9 g/dL 2.2-4.2 [facility] Urea nitrogen/Creatinine [Mass ratio] 13.6 mg/mg 10-20 [facility] Laboratory - Hematology and Cell countsOrdered By: Dr. Anderson on 03-11-2022 Erythrocyte distribution width (RBC) [Entitic vol] 46.8 fL 35.1-43.9 [facility] Erythrocyte distribution width (RBC) [Ratio] 12.9 % 11.6-14.6 [facility] Immature granulocytes/100 WBC (Bld) 0.200 % 0.0-0.9 [facility] Comment on above: IG% - Immature Granu locytes (promyelocytes, myelocytes and metamyelocytes) > 1% indicates that a LEFT SHIFT is Present. MCH (RBC) [Entitic mass] 30.4 pg 27.0-32.0 [facility] Nucleated RBC/100 WBC (Bld) [Ratio] 0 % 0-5 [facility] MCHC Auto (RBC) [Mass/Vol]Or dered By: Dr. Anderson on 03-11-2022 MCHC (RBC) [Mass/Vol] 30.6 g/dL 32-36 [facility] No Panel InformationOrdered By: Dr. Anderson on 03-11-2022 Estimated GFR (MDRD) Amer 113 mL/min >60 [facility] Comment on above: GFR Calc Estimated GFR (MDRD) Non-Af Amer 93 mL/min >60 [facility] Comment on above: Non- GFR Calc Thyroid Stimulating Hormone (TSH) 3.25 uIU/mL 0.358-3.74 [facility] Platelets bldOrdered By: Dr. Anderson on 03-11-2022 Platelets (Bld) [#/Vol] 244 10*3/uL 150-450 [facility] Serum or plasma albumin moriah urement (mass/volume)Ordered By: Dr. Anderson on 03-11-2022 Albumin [Mass/Vol] 2.8 g/dL 3.2-5.0 [facility] Serum or plasma albumin/glob ulin mass ratioOrdered By: Dr. Anderson on 03-11-2022 Albumin/Globulin [Mass ratio] 1.0 {ratio} 0.9-2.4 [facility] Serum or plasma calcium moriah urement (mass/volume)Ordered By: Dr. Anderson on 03-11-2022 Calcium [Mass/Vol] 8.4 mg/dL 8.5-10.1 [facility] Serum or plasma creatinine m easurement (mass/volume)Ordered By: Dr. Anderson on 03-11-2022 Creatinine [Mass/Vol] 0.66 mg/dL 0.55-1.02 [facility] Comment on above: The validity of the calculated GFR & GFRAA in patients over 70 years has not been determined. Clinical correlation is essential. Serum or plasma lamotrigine measurement (mass/volume)Ordered By: Dr. Anderson on 03-11-2022 lamoTRIgine [Mass/Vol] 3.0 ug/mL 2.0-20.0 [facility] Comment on above: Detection Limit = 1. 0Performed at: - [address] [id number] Director: Marino Mckeon MD, Phone: [phone] Serum or plasma urea nitroge n measurement (mass/volume)Ordered By: Dr. Anderson on 03-11-2022 Urea nitrogen [Mass/Vol] 9 mg/dL 7-18 [facility] Thin prep Papanicolaou smear with manual screeningOrdered By: Dr. Anderson on 03-11-2022 Thin prep Papanicolaou smear with manual screening 13 U/L 15-37 [facility] Thin prep Papanicolaou smear with manual screening 2 5-15 [facility] Thin prep Papanicolaou smear with manual screeningOrdered By: Dr. Anderson on 03-07-2022 Thin prep Papanicolaou smear with manual screening Normal genital pierre isolated [facility] Gram stain for investigation of transfusion reactionOrdered By: Dr. Anderson on 12-17-2022 Microscopic observation Gram stain Nom (Unsp spec) [facility] Absolute lymphocyte countOrd ered By: Dr. Anderson on 02-16-2022 Lymphocytes Auto (Unsp spec) [#/Vol] 2.46 10*3/uL 0.83-4.51 [facility] Basophil percentageOrdered B y: Dr. Anderson on 02-16-2022 Basophils/100 WBC (Bld) 0.8 % 0-1 [facility] Eosinophils/100 WBC (Bld) 4.7 % 0-5 [facility] Neutrophils (Bld) [#/Vol] 1.8 10*3/uL 2.0-7.7 [facility] Neutrophils/100 WBC (Bld) 35.6 % 47-70 [facility] WBC (Bld) [#/Vol] 5.1 10*3/uL 4.4-11.0 [facility] Blood erythrocytes count (nu mber/volume)Ordered By: Dr. Anderson on 02-16-2022 RBC (Bld) [#/Vol] 3.71 10*6/uL 4.2-5.4 [facility] Blood hemoglobin measurement (mass/volume)Ordered By: Dr. Anderson on 02-16-2022 Hemoglobin (Bld) [Mass/Vol] 11.4 g/dL 12.0-15.0 [facility] Blood lymphocytes/100 leukoc ytesOrdered By: Dr. Anderson on 02-16-2022 Lymphocytes/100 WBC (Bld) 48.6 % 19-41 [facility] Blood monocytes/100 leukocyt esOrdered By: Dr. Anderson on 02-16-2022 Monocytes/100 WBC (Bld) 10.1 % 0-10 [facility] Blood platelet mean volumeOr dered By: Dr. Anderson on 02-16-2022 Platelet mean volume (Bld) [Entitic vol] 10.7 fL 6.2-12.0 [facility] Determination of erythrocyte mean corpuscular volume (MCV)Ordered By: Dr. Anderson on 02-16-2022 MCV (RBC) [Entitic vol] 99.7 fL 81-99 [facility] Hematocrit Auto (Bld) [Volum e fraction]Ordered By: Dr. Anderson on 02-16-2022 Hematocrit (Bld) [Volume fraction] 37.0 % 37-47 [facility] Laboratory - Chemistry and C hemistry - challengeOrdered By: Dr. Anderson on 02-16-2022 Magnesium [Mass/Vol] 2.0 mg/dL 1.6-2.6 [facility] Laboratory - Hematology and Cell countsOrdered By: Dr. Anderson on 02-16-2022 Erythrocyte distribution width (RBC) [Entitic vol] 46.5 fL 35.1-43.9 [facility] Erythrocyte distribution width (RBC) [Ratio] 12.8 % 11.6-14.6 [facility] Immature granulocytes/100 WBC (Bld) 0.200 % 0.0-0.9 [facility] Comment on above: IG% - Immature Granu locytes (promyelocytes, myelocytes and metamyelocytes) > 1% indicates that a LEFT SHIFT is Present. MCH (RBC) [Entitic mass] 30.7 pg 27.0-32.0 [facility] Nucleated RBC/100 WBC (Bld) [Ratio] 0 % 0-5 [facility] MCHC Auto (RBC) [Mass/Vol]Or dered By: Dr. Anderson on 02-16-2022 MCHC (RBC) [Mass/Vol] 30.8 g/dL 32-36 [facility] No Panel InformationOrdered By: Dr. Anderson on 02-16-2022 Thyroid Stimulating Hormone (TSH) 4.61 uIU/mL 0.358-3.74 [facility] Vitamin B12 Level > 2000 pg/mL 211-911 [facility] Vitamin D 25-Hydroxy 54.2 ng/mL [facility] Comment on above: Vitamin D 25(OH) Sta tus Range Deficiency <20 ng/mL (50nmol/L) Insufficiency 20 - 30 ng/mL (50 - 75 nmol/L) Sufficiency 30 - 100 ng/mL (75 - 250 nmol/L) Toxicity >100 ng/mL (>250 nmol/L) Platelets bldOrdered By: Dr. Anderson on 02-16-2022 Platelets (Bld) [#/Vol] 242 10*3/uL 150-450 [facility] Absolute lymphocyte countOrd ered By: Dr. Malave on 02-14-2022 Lymphocytes Auto (Unsp spec) [#/Vol] 2.42 10*3/uL 0.83-4.51 [facility] Basophil percentageOrdered B y: Dr. Malave on 02-14-2022 Basophil percentage 0 SEEN /hpf 0-5 [facility] Basophils/100 WBC (Bld) 0.7 % 0-1 [facility] Chloride [Moles/Vol] 112 mmol/L 98-107 [facility] Eosinophils/100 WBC (Bld) 5.3 % 0-5 [facility] Glucose [Mass/Vol] 87 mg/dL 74-106 [facility] Neutrophils (Bld) [#/Vol] 2.2 10*3/uL 2.0-7.7 [facility] Neutrophils/100 WBC (Bld) 39.4 % 47-70 [facility] Potassium [Moles/Vol] 3.7 mmol/L 3.5-5.1 [facility] Sodium [Moles/Vol] 143 mmol/L 136-145 [facility] WBC (Bld) [#/Vol] 5.5 10*3/uL 4.4-11.0 [facility] Bilirubin Test strip Ql (U)O rdered By: Dr. Malave on 02-14-2022 Bilirubin Ql (U) Negative Negative [facility] Blood erythrocytes count (nu mber/volume)Ordered By: Dr. Malave on 02-14-2022 RBC (Bld) [#/Vol] 3.46 10*6/uL 4.2-5.4 [facility] Blood hemoglobin measurement (mass/volume)Ordered By: Dr. Malave on 02-14-2022 Hemoglobin (Bld) [Mass/Vol] 10.5 g/dL 12.0-15.0 [facility] Blood lymphocytes/100 leukoc ytesOrdered By: Dr. Malave on 02-14-2022 Lymphocytes/100 WBC (Bld) 44.2 % 19-41 [facility] Blood monocytes/100 leukocyt esOrdered By: Dr. Malave on 02-14-2022 Monocytes/100 WBC (Bld) 10.2 % 0-10 [facility] Blood platelet mean volumeOr dered By: Dr. Malave on 02-14-2022 Platelet mean volume (Bld) [Entitic vol] 10.8 fL 6.2-12.0 [facility] Determination of erythrocyte mean corpuscular volume (MCV)Ordered By: Dr. Malave on 02-14-2022 MCV (RBC) [Entitic vol] 101.7 fL 81-99 [facility] Hematocrit Auto (Bld) [Volum e fraction]Ordered By: Dr. Malave on 02-14-2022 Hematocrit (Bld) [Volume fraction] 35.2 % 37-47 [facility] Ketones Test strip Ql (U)Ord ered By: Dr. Malave on 02-14-2022 Ketones Ql (U) Negative Negative [facility] Laboratory - Chemistry and C hemistry - challengeOrdered By: Dr. Malave on 02-14-2022 CO2 [Moles/Vol] 27.0 mmol/L 21.0-32.0 [facility] Urea nitrogen/Creatinine [Mass ratio] 14.0 mg/mg 10-20 [facility] Laboratory - Hematology and Cell countsOrdered By: Dr. Malvae on 02-14-2022 Erythrocyte distribution width (RBC) [Entitic vol] 48.1 fL 35.1-43.9 [facility] Erythrocyte distribution width (RBC) [Ratio] 12.9 % 11.6-14.6 [facility] Immature granulocytes/100 WBC (Bld) 0.200 % 0.0-0.9 [facility] Comment on above: IG% - Immature Granu locytes (promyelocytes, myelocytes and metamyelocytes) > 1% indicates that a LEFT SHIFT is Present. MCH (RBC) [Entitic mass] 30.3 pg 27.0-32.0 [facility] Nucleated RBC/100 WBC (Bld) [Ratio] 0 % 0-5 [facility] MCHC Auto (RBC) [Mass/Vol]Or dered By: Dr. Malave on 02-14-2022 MCHC (RBC) [Mass/Vol] 29.8 g/dL 32-36 [facility] Mucus LM Ql (Urine sed)Order ed By: Dr. Malave on 02-14-2022 Mucus Ql (Urine sed) 0 SEEN /hpf [facility] Nitrite Test strip Ql (U)Ord ered By: Dr. Malave on 02-14-2022 Nitrite Ql (U) Negative Negative [facility] No Panel InformationOrdered By: Dr. Malave on 02-14-2022 Estimated Creatinine Clearance Calc 37.60 ml/min [facility] Estimated GFR (MDRD) Amer 117 mL/min >60 [facility] Comment on above: GFR Calc Estimated GFR (MDRD) Non-Af Amer 97 mL/min >60 [facility] Comment on above: Non- GFR Calc Platelets bldOrdered By: Dr. Malave on 02-14-2022 Platelets (Bld) [#/Vol] 201 10*3/uL 150-450 [facility] Protein Test strip Ql (U)Ord ered By: Dr. Malave on 02-14-2022 Protein Ql (U) Negative Negative [facility] Serum or plasma calcium moriah urement (mass/volume)Ordered By: Dr. Malave on 02-14-2022 Calcium [Mass/Vol] 8.0 mg/dL 8.5-10.1 [facility] Serum or plasma creatinine m easurement (mass/volume)Ordered By: Dr. Malave on 02-14-2022 Creatinine [Mass/Vol] 0.64 mg/dL 0.55-1.02 [facility] Comment on above: The validity of the calculated GFR & GFRAA in patients over 70 years has not been determined. Clinical correlation is essential. Serum or plasma urea nitroge n measurement (mass/volume)Ordered By: Dr. Malave on 02-14-2022 Urea nitrogen [Mass/Vol] 9 mg/dL 7-18 [facility] Squamous epithelial cells de tection in urine sediment by light microscopyOrdered By: Dr. Malave on 02-14-2022 Epithelial cells.squamous LM Ql (Urine sed) 0 SEEN /hpf 5-10 [facility] Thin prep Papanicolaou smear with manual screeningOrdered By: Dr. Malave on 02-14-2022 Thin prep Papanicolaou smear with manual screening 4 5-15 [facility] Urine blood detectionOrdered By: Dr. Malave on 02-14-2022 RBC Ql (U) Negative Negative [facility] RBC Ql (U) 0 SEEN /hpf 0-5 [facility] Urine clarityOrdered By: Dr. Malave on 02-14-2022 Clarity (U) Clear Clear [facility] Urine color determinationOrd ered By: Dr. Malave on 02-14-2022 Color (U) Yellow Yellow [facility] Urine glucose detectionOrder ed By: Dr. Malave on 02-14-2022 Glucose Ql (U) Normal mg/dl Normal [facility] Urine leukocyte esterase det ection by dipstickOrdered By: Dr. Malave on 02-14-2022 Leukocyte esterase Test strip Ql (U) 25 /ul Negative [facility] Urine pHOrdered By: Dr. Ar sanchez on 02-14-2022 pH (U) 6.0 [pH] 5.0 - 8.0 [facility] Urine sediment bacteria coun t by microscopy (number/high power field)Ordered By: Dr. Malave on 02-14-2022 Bacteria LM.HPF (Urine sed) [#/Area] 0 /[HPF] None Seen [facility] Urine specific gravity measu rementOrdered By: Dr. Malave on 02-14-2022 Specific gravity (U) [Rel density] 1.015 1.002-1.030 [facility] Urobilinogen Auto test strip Ql (U)Ordered By: Dr. Mlaave on 02-14-2022 Urobilinogen Ql (U) Normal mg/dl Normal [facility] Absolute lymphocyte countOrd ered By: Dr. Anderson on 02-08-2022 Lymphocytes Auto (Unsp spec) [#/Vol] 2.55 10*3/uL 0.83-4.51 [facility] Basophil percentageOrdered B y: Dr. Anderson on 02-08-2022 Basophils/100 WBC (Bld) 1.1 % 0-1 [facility] Chloride [Moles/Vol] 109 mmol/L 98-107 [facility] Eosinophils/100 WBC (Bld) 5.7 % 0-5 [facility] Glucose [Mass/Vol] 89 mg/dL 74-106 [facility] Neutrophils (Bld) [#/Vol] 1.3 10*3/uL 2.0-7.7 [facility] [facility] Neutrophils/100 WBC (Bld) 28.3 % 47-70 [facility] Potassium [Moles/Vol] 3.6 mmol/L 3.5-5.1 [facility] Sodium [Moles/Vol] 144 mmol/L 136-145 [facility] WBC (Bld) [#/Vol] 4.6 10*3/uL 4.4-11.0 [facility] Blood erythrocytes count (nu mber/volume)Ordered By: Dr. Anderson on 02-08-2022 RBC (Bld) [#/Vol] 3.62 10*6/uL 4.2-5.4 [facility] Blood hemoglobin measurement (mass/volume)Ordered By: Dr. Anderson on 02-08-2022 Hemoglobin (Bld) [Mass/Vol] 11.4 g/dL 12.0-15.0 [facility] Blood lymphocytes/100 leukoc ytesOrdered By: Dr. Anderson on 02-08-2022 Lymphocytes/100 WBC (Bld) 55.7 % 19-41 [facility] Blood monocytes/100 leukocyt esOrdered By: Dr. Anderson on 02-08-2022 Monocytes/100 WBC (Bld) 9.2 % 0-10 [facility] Blood platelet mean volumeOr dered By: Dr. Anderson on 02-08-2022 Platelet mean volume (Bld) [Entitic vol] 10.8 fL 6.2-12.0 [facility] Determination of erythrocyte mean corpuscular volume (MCV)Ordered By: Dr. Anderson on 02-08-2022 MCV (RBC) [Entitic vol] 100.0 fL 81-99 [facility] Hematocrit Auto (Bld) [Volum e fraction]Ordered By: Dr. Anderson on 02-08-2022 Hematocrit (Bld) [Volume fraction] 36.2 % 37-47 [facility] Laboratory - Chemistry and C hemistry - challengeOrdered By: Dr. Anderson on 02-08-2022 CO2 [Moles/Vol] 31.0 mmol/L 21.0-32.0 [facility] Magnesium [Mass/Vol] 2.2 mg/dL 1.6-2.6 [facility] Urea nitrogen/Creatinine [Mass ratio] 14.2 mg/mg 10-20 [facility] Laboratory - Hematology and Cell countsOrdered By: Dr. Anderson on 02-08-2022 Erythrocyte distribution width (RBC) [Entitic vol] 46.6 fL 35.1-43.9 [facility] Erythrocyte distribution width (RBC) [Ratio] 12.7 % 11.6-14.6 [facility] Immature granulocytes/100 WBC (Bld) 0.000 % 0.0-0.9 [facility] Comment on above: IG% - Immature Granu locytes (promyelocytes, myelocytes and metamyelocytes) > 1% indicates that a LEFT SHIFT is Present. MCH (RBC) [Entitic mass] 31.5 pg 27.0-32.0 [facility] Nucleated RBC/100 WBC (Bld) [Ratio] 0 % 0-5 [facility] MCHC Auto (RBC) [Mass/Vol]Or dered By: Dr. Anderson on 02-08-2022 MCHC (RBC) [Mass/Vol] 31.5 g/dL 32-36 [facility] No Panel InformationOrdered By: Dr. Anderson on 02-08-2022 Estimated GFR (MDRD) Amer 105 mL/min >60 [facility] Comment on above: GFR Calc Estimated GFR (MDRD) Non-Af Amer 87 mL/min >60 [facility] Comment on above: Non- GFR Calc Platelets bldOrdered By: Dr. Anderson on 02-08-2022 Platelets (Bld) [#/Vol] 209 10*3/uL 150-450 [facility] Serum or plasma calcium moriah urement (mass/volume)Ordered By: Dr. Anderson on 02-08-2022 Calcium [Mass/Vol] 8.3 mg/dL 8.5-10.1 [facility] Serum or plasma creatinine m easurement (mass/volume)Ordered By: Dr. Anderson on 02-08-2022 Creatinine [Mass/Vol] 0.71 mg/dL 0.55-1.02 [facility] Comment on above: The validity of the calculated GFR & GFRAA in patients over 70 years has not been determined. Clinical correlation is essential. Serum or plasma urea nitroge n measurement (mass/volume)Ordered By: Dr. Anderson on 02-08-2022 Urea nitrogen [Mass/Vol] 10 mg/dL 7-18 [facility] Thin prep Papanicolaou smear with manual screeningOrdered By: Dr. Anderson on 02-08-2022 Thin prep Papanicolaou smear with manual screening 4 5-15 [facility] Absolute lymphocyte countOrd ered By: Dr. Anderson on 12-29-2021 Lymphocytes Auto (Unsp spec) [#/Vol] 2.72 10*3/uL 0.83-4.51 [facility] Basophil percentageOrdered B y: Dr. Anderson on 12-29-2021 Basophils/100 WBC (Bld) 1.0 % 0-1 [facility] Chloride [Moles/Vol] 107 mmol/L 98-107 [facility] Eosinophils/100 WBC (Bld) 7.1 % 0-5 [facility] Glucose [Mass/Vol] 77 mg/dL 74-106 [facility] Neutrophils (Bld) [#/Vol] 2.9 10*3/uL 2.0-7.7 [facility] Neutrophils/100 WBC (Bld) 41.4 % 47-70 [facility] Potassium [Moles/Vol] 4.3 mmol/L 3.5-5.1 [facility] Sodium [Moles/Vol] 141 mmol/L 136-145 [facility] WBC (Bld) [#/Vol] 6.9 10*3/uL 4.4-11.0 [facility] Blood erythrocytes count (nu mber/volume)Ordered By: Dr. Anderson on 12-29-2021 RBC (Bld) [#/Vol] 3.42 10*6/uL 4.2-5.4 [facility] Blood hemoglobin measurement (mass/volume)Ordered By: Dr. Anderson on 12-29-2021 Hemoglobin (Bld) [Mass/Vol] 10.8 g/dL 12.0-15.0 [facility] Blood lymphocytes/100 leukoc ytesOrdered By: Dr. Anderson on 12-29-2021 Lymphocytes/100 WBC (Bld) 39.2 % 19-41 [facility] Blood monocytes/100 leukocyt esOrdered By: Dr. Anderson on 12-29-2021 Monocytes/100 WBC (Bld) 11.0 % 0-10 [facility] Blood platelet mean volumeOr dered By: Dr. Anderson on 12-29-2021 Platelet mean volume (Bld) [Entitic vol] 10.9 fL 6.2-12.0 [facility] Determination of erythrocyte mean corpuscular volume (MCV)Ordered By: Dr. Anderson on 12-29-2021 MCV (RBC) [Entitic vol] 105.0 fL 81-99 [facility] Hematocrit Auto (Bld) [Volum e fraction]Ordered By: Dr. Anderson on 12-29-2021 Hematocrit (Bld) [Volume fraction] 35.9 % 37-47 [facility] Laboratory - Chemistry and C hemistry - challengeOrdered By: Dr. Anderson on 12-29-2021 CO2 [Moles/Vol] 30.0 mmol/L 21.0-32.0 [facility] Cobalamin (Vitamin B12) [Mass/Vol] 682 pg/mL 211-911 [facility] Urea nitrogen/Creatinine [Mass ratio] 13.8 mg/mg 10-20 [facility] Laboratory - Hematology and Cell countsOrdered By: Dr. Anderson on 12-29-2021 Erythrocyte distribution width (RBC) [Entitic vol] 49.0 fL 35.1-43.9 [facility] Erythrocyte distribution width (RBC) [Ratio] 12.8 % 11.6-14.6 [facility] Immature granulocytes/100 WBC (Bld) 0.300 % 0.0-0.9 [facility] Comment on above: IG% - Immature Granu locytes (promyelocytes, myelocytes and metamyelocytes) > 1% indicates that a LEFT SHIFT is Present. MCH (RBC) [Entitic mass] 31.6 pg 27.0-32.0 [facility] Nucleated RBC/100 WBC (Bld) [Ratio] 0 % 0-5 [facility] MCHC Auto (RBC) [Mass/Vol]Or dered By: Dr. Anderson on 12-29-2021 MCHC (RBC) [Mass/Vol] 30.1 g/dL 32-36 [facility] No Panel InformationOrdered By: Dr. Anderson on 12-29-2021 Estimated GFR (MDRD) Amer 102 mL/min >60 [facility] Comment on above: GFR Calc Estimated GFR (MDRD) Non-Af Amer 85 mL/min >60 [facility] Comment on above: Non- GFR Calc Vitamin D 25-Hydroxy 45.3 ng/mL [facility] Comment on above: Vitamin D 25(OH) Sta tus Range Deficiency <20 ng/mL (50nmol/L) Insufficiency 20 - 30 ng/mL (50 - 75 nmol/L) Sufficiency 30 - 100 ng/mL (75 - 250 nmol/L) Toxicity >100 ng/mL (>250 nmol/L) Platelets bldOrdered By: Dr. Anderson on 12-29-2021 Platelets (Bld) [#/Vol] 308 10*3/uL 150-450 [facility] Serum or plasma calcium moriah urement (mass/volume)Ordered By: Dr. Anderson on 12-29-2021 Calcium [Mass/Vol] 8.5 mg/dL 8.5-10.1 [facility] Serum or plasma creatinine m easurement (mass/volume)Ordered By: Dr. Anderson on 12-29-2021 Creatinine [Mass/Vol] 0.72 mg/dL 0.55-1.02 [facility] Comment on above: The validity of the calculated GFR & GFRAA in patients over 70 years has not been determined. Clinical correlation is essential. Serum or plasma urea nitroge n measurement (mass/volume)Ordered By: Dr. Anderson on 12-29-2021 Urea nitrogen [Mass/Vol] 10 mg/dL 7-18 [facility] Thin prep Papanicolaou smear with manual screeningOrdered By: Dr. Anderson on 12-29-2021 Thin prep Papanicolaou smear with manual screening 4 5-15 [facility] Absolute lymphocyte countOrd ered By: Dr. Anderson on 12-23-2021 Lymphocytes Auto (Unsp spec) [#/Vol] 2.25 10*3/uL 0.83-4.51 [facility] Basophil percentageOrdered B y: Dr. Anderson on 12-23-2021 Basophils/100 WBC (Bld) 0.8 % 0-1 [facility] Chloride [Moles/Vol] 108 mmol/L 98-107 [facility] Eosinophils/100 WBC (Bld) 8.2 % 0-5 [facility] Glucose [Mass/Vol] 78 mg/dL 74-106 [facility] Neutrophils (Bld) [#/Vol] 5.2 10*3/uL 2.0-7.7 [facility] Neutrophils/100 WBC (Bld) 59.1 % 47-70 [facility] Potassium [Moles/Vol] 4.3 mmol/L 3.5-5.1 [facility] Sodium [Moles/Vol] 141 mmol/L 136-145 [facility] WBC (Bld) [#/Vol] 8.8 10*3/uL 4.4-11.0 [facility] Blood erythrocytes count (nu mber/volume)Ordered By: Dr. Anderson on 12-23-2021 RBC (Bld) [#/Vol] 3.52 10*6/uL 4.2-5.4 [facility] Blood hemoglobin measurement (mass/volume)Ordered By: Dr. Anderson on 12-23-2021 Hemoglobin (Bld) [Mass/Vol] 11.0 g/dL 12.0-15.0 [facility] Blood lymphocytes/100 leukoc ytesOrdered By: Dr. Anderson on 12-23-2021 Lymphocytes/100 WBC (Bld) 25.7 % 19-41 [facility] Blood monocytes/100 leukocyt esOrdered By: Dr. Anderson on 12-23-2021 Monocytes/100 WBC (Bld) 5.9 % 0-10 [facility] Blood platelet mean volumeOr dered By: Dr. Anderson on 12-23-2021 Platelet mean volume (Bld) [Entitic vol] 10.3 fL 6.2-12.0 [facility] Determination of erythrocyte mean corpuscular volume (MCV)Ordered By: Dr. Anderson on 12-23-2021 MCV (RBC) [Entitic vol] 103.4 fL 81-99 [facility] Hematocrit Auto (Bld) [Volum e fraction]Ordered By: Dr. Anderson on 12-23-2021 Hematocrit (Bld) [Volume fraction] 36.4 % 37-47 [facility] Laboratory - Chemistry and C hemistry - challengeOrdered By: Dr. Anderson on 12-23-2021 CO2 [Moles/Vol] 30.0 mmol/L 21.0-32.0 [facility] Urea nitrogen/Creatinine [Mass ratio] 16.4 mg/mg 10-20 [facility] Laboratory - Hematology and Cell countsOrdered By: Dr. Anderson on 12-23-2021 Erythrocyte distribution width (RBC) [Entitic vol] 46.5 fL 35.1-43.9 [facility] Erythrocyte distribution width (RBC) [Ratio] 12.4 % 11.6-14.6 [facility] Immature granulocytes/100 WBC (Bld) 0.300 % 0.0-0.9 [facility] Comment on above: IG% - Immature Granu locytes (promyelocytes, myelocytes and metamyelocytes) > 1% indicates that a LEFT SHIFT is Present. MCH (RBC) [Entitic mass] 31.3 pg 27.0-32.0 [facility] Nucleated RBC/100 WBC (Bld) [Ratio] 0 % 0-5 [facility] MCHC Auto (RBC) [Mass/Vol]Or dered By: Dr. Anderson on 12-23-2021 MCHC (RBC) [Mass/Vol] 30.2 g/dL 32-36 [facility] No Panel InformationOrdered By: Dr. Anderson on 12-23-2021 Estimated GFR (MDRD) Amer 101 mL/min >60 [facility] Comment on above: GFR Calc Estimated GFR (MDRD) Non-Af Amer 84 mL/min >60 [facility] Comment on above: Non- GFR Calc Platelets bldOrdered By: Dr. Anderson on 12-23-2021 Platelets (Bld) [#/Vol] 321 10*3/uL 150-450 [facility] Serum or plasma calcium moriah urement (mass/volume)Ordered By: Dr. Anderson on 12-23-2021 Calcium [Mass/Vol] 8.6 mg/dL 8.5-10.1 [facility] Serum or plasma creatinine m easurement (mass/volume)Ordered By: Dr. Anderson on 12-23-2021 Creatinine [Mass/Vol] 0.73 mg/dL 0.55-1.02 [facility] Comment on above: The validity of the calculated GFR & GFRAA in patients over 70 years has not been determined. Clinical correlation is essential. Serum or plasma urea nitroge n measurement (mass/volume)Ordered By: Dr. Anderson on 12-23-2021 Urea nitrogen [Mass/Vol] 12 mg/dL 7-18 [facility] Thin prep Papanicolaou smear with manual screeningOrdered By: Dr. Anderson on 12-23-2021 Thin prep Papanicolaou smear with manual screening 3 - [facility] Absolute lymphocyte counton 12-16-2021 Lymphocytes Auto (Unsp spec) [#/Vol] 2.93 10*3/uL 0.83-4.51 [facility] Work Phone: Basophil percentageon 2021 Basophils/100 WBC (Bld) 0.9 % 0-1 [facility] Work Phone: Chloride [Moles/Vol] 106 mmol/L 98-107 [facility] Work Phone: Eosinophils/100 WBC (Bld) 11.4 % 0-5 [facility] Work Phone: Glucose [Mass/Vol] 84 mg/dL 74-106 [facility] Work Phone: Neutrophils (Bld) [#/Vol] 2.3 10*3/uL 2.0-7.7 [facility] Work Phone: Neutrophils/100 WBC (Bld) 34.0 % 47-70 [facility] Work Phone: Potassium [Moles/Vol] 3.6 mmol/L 3.5-5.1 [facility] Work Phone: Sodium [Moles/Vol] 143 mmol/L 136-145 [facility] Work Phone: WBC (Bld) [#/Vol] 6.6 10*3/uL 4.4-11.0 [facility] Work Phone: Blood erythrocytes count (nu mber/volume)on 12-16-2021 RBC (Bld) [#/Vol] 3.54 10*6/uL 4.2-5.4 [facility] Work Phone: Blood hemoglobin measurement (mass/volume)on 12-16-2021 Hemoglobin (Bld) [Mass/Vol] 11.4 g/dL 12.0-15.0 [facility] Work Phone: Blood lymphocytes/100 leukoc yteson 12-16-2021 Lymphocytes/100 WBC (Bld) 44.4 % 19-41 [facility] Work Phone: Blood monocytes/100 leukocyt eson 12-16-2021 Monocytes/100 WBC (Bld) 9.1 % 0-10 [facility] Work Phone: Blood platelet mean volumeon 12-16-2021 Platelet mean volume (Bld) [Entitic vol] 10.4 fL 6.2-12.0 [facility] Work Phone: Determination of erythrocyte mean corpuscular volume (MCV)on 12-16-2021 MCV (RBC) [Entitic vol] 103.1 fL 81-99 [facility] Work Phone: Hematocrit Auto (Bld) [Volum e fraction]on 12-16-2021 Hematocrit (Bld) [Volume fraction] 36.5 % 37-47 [facility] Work Phone: Laboratory - Chemistry and C hemistry - challengeon 12-16-2021 CO2 [Moles/Vol] 30.0 mmol/L 21.0-32.0 [facility] Work Phone: Urea nitrogen/Creatinine [Mass ratio] 14.7 mg/mg 10-20 [facility] Work Phone: Laboratory - Hematology and Cell countson 12-16-2021 Erythrocyte distribution width (RBC) [Entitic vol] 46.3 fL 35.1-43.9 [facility] Work Phone: Erythrocyte distribution width (RBC) [Ratio] 12.1 % 11.6-14.6 [facility] Work Phone: Immature granulocytes/100 WBC (Bld) 0.200 % 0.0-0.9 [facility] Work Phone: Comment on above: IG% - Immature Granu locytes (promyelocytes, myelocytes and metamyelocytes) > 1% indicates that a LEFT SHIFT is Present. MCH (RBC) [Entitic mass] 32.2 pg 27.0-32.0 [facility] Work Phone: Nucleated RBC/100 WBC (Bld) [Ratio] 0 % 0-5 [facility] Work Phone: MCHC Auto (RBC) [Mass/Vol]on 12-16-2021 MCHC (RBC) [Mass/Vol] 31.2 g/dL 32-36 [facility] Work Phone: No Panel Informationon 12-16 Estimated GFR (MDRD) Amer 110 mL/min >60 [facility] Work Phone: Comment on above: GFR Calc Estimated GFR (MDRD) Non-Af Amer 91 mL/min >60 [facility] Work Phone: Comment on above: Non- GFR Calc Platelets bldon 12-16-2021 Platelets (Bld) [#/Vol] 292 10*3/uL 150-450 [facility] Work Phone: Serum or plasma calcium moriah urement (mass/volume)on 12-16-2021 Calcium [Mass/Vol] 8.7 mg/dL 8.5-10.1 [facility] Work Phone: Serum or plasma creatinine m easurement (mass/volume)on 12-16-2021 Creatinine [Mass/Vol] 0.68 mg/dL 0.55-1.02 [facility] Work Phone: Comment on above: The validity of the calculated GFR & GFRAA in patients over 70 years has not been determined. Clinical correlation is essential. Serum or plasma urea nitroge n measurement (mass/volume)on 12-16-2021 Urea nitrogen [Mass/Vol] 10 mg/dL 7-18 [facility] Work Phone: Thin prep Papanicolaou smear with manual screeningon 12-16-2021 Thin prep Papanicolaou smear with manual screening 7 5-15 [facility] Work Phone: Absolute lymphocyte counton 12-09-2021 Lymphocytes Auto (Unsp spec) [#/Vol] 2.45 10*3/uL 0.83-4.51 [facility] Work Phone: Basophil percentageon 2021 Basophils/100 WBC (Bld) 1.4 % 0-1 [facility] Work Phone: Chloride [Moles/Vol] 108 mmol/L 98-107 [facility] Work Phone: Eosinophils/100 WBC (Bld) 9.7 % 0-5 [facility] Work Phone: Glucose [Mass/Vol] 73 mg/dL 74-106 [facility] Work Phone: Neutrophils (Bld) [#/Vol] 2.1 10*3/uL 2.0-7.7 [facility] Work Phone: Neutrophils/100 WBC (Bld) 36.8 % 47-70 [facility] Work Phone: Potassium [Moles/Vol] 3.7 mmol/L 3.5-5.1 [facility] Work Phone: Sodium [Moles/Vol] 143 mmol/L 136-145 [facility] Work Phone: WBC (Bld) [#/Vol] 5.8 10*3/uL 4.4-11.0 [facility] Work Phone: Blood erythrocytes count (nu mber/volume)on 12-09-2021 RBC (Bld) [#/Vol] 3.68 10*6/uL 4.2-5.4 [facility] Work Phone: Blood hemoglobin measurement (mass/volume)on 12-09-2021 Hemoglobin (Bld) [Mass/Vol] 11.8 g/dL 12.0-15.0 [facility] Work Phone: Blood lymphocytes/100 leukoc yteson 12-09-2021 Lymphocytes/100 WBC (Bld) 42.5 % 19-41 [facility] Work Phone: Blood monocytes/100 leukocyt eson 12-09-2021 Monocytes/100 WBC (Bld) 9.4 % 0-10 [facility] Work Phone: Blood platelet mean volumeon 12-09-2021 Platelet mean volume (Bld) [Entitic vol] 10.3 fL 6.2-12.0 [facility] Work Phone: Determination of erythrocyte mean corpuscular volume (MCV)on 12-09-2021 MCV (RBC) [Entitic vol] 103.8 fL 81-99 [facility] Work Phone: Hematocrit Auto (Bld) [Volum e fraction]on 12-09-2021 Hematocrit (Bld) [Volume fraction] 38.2 % 37-47 [facility] Work Phone: Laboratory - Chemistry and C hemistry - challengeon 12-09-2021 CO2 [Moles/Vol] 30.0 mmol/L 21.0-32.0 [facility] Work Phone: Urea nitrogen/Creatinine [Mass ratio] 7.4 mg/mg 10-20 [facility] Work Phone: Laboratory - Hematology and Cell countson 12-09-2021 Erythrocyte distribution width (RBC) [Entitic vol] 47.8 fL 35.1-43.9 [facility] Work Phone: Erythrocyte distribution width (RBC) [Ratio] 12.5 % 11.6-14.6 [facility] Work Phone: Immature granulocytes/100 WBC (Bld) 0.200 % 0.0-0.9 [facility] Work Phone: Comment on above: IG% - Immature Granu locytes (promyelocytes, myelocytes and metamyelocytes) > 1% indicates that a LEFT SHIFT is Present. MCH (RBC) [Entitic mass] 32.1 pg 27.0-32.0 [facility] Work Phone: Nucleated RBC/100 WBC (Bld) [Ratio] 0 % 0-5 [facility] Work Phone: MCHC Auto (RBC) [Mass/Vol]on 12-09-2021 MCHC (RBC) [Mass/Vol] 30.9 g/dL 32-36 [facility] Work Phone: No Panel Informationon 12-09 Estimated GFR (MDRD) Amer 90 mL/min >60 [facility] Work Phone: Comment on above: GFR Calc Estimated GFR (MDRD) Non-Af Amer 75 mL/min >60 [facility] Work Phone: Comment on above: Non- GFR Calc Platelets bldon 12-09-2021 Platelets (Bld) [#/Vol] 255 10*3/uL 150-450 [facility] Work Phone: Serum or plasma calcium moriah urement (mass/volume)on 12-09-2021 Calcium [Mass/Vol] 8.7 mg/dL 8.5-10.1 [facility] Work Phone: Serum or plasma creatinine m easurement (mass/volume)on 12-09-2021 Creatinine [Mass/Vol] 0.81 mg/dL 0.55-1.02 [facility] Work Phone: Comment on above: The validity of the calculated GFR & GFRAA in patients over 70 years has not been determined. Clinical correlation is essential. Serum or plasma urea nitroge n measurement (mass/volume)on 12-09-2021 Urea nitrogen [Mass/Vol] 6 mg/dL 7-18 [facility] Work Phone: Thin prep Papanicolaou smear with manual screeningon 12-09-2021 Thin prep Papanicolaou smear with manual screening 5 5-15 [facility] Work Phone: Absolute lymphocyte counton 12-02-2021 Lymphocytes Auto (Unsp spec) [#/Vol] 3.00 10*3/uL 0.83-4.51 [facility] Work Phone: Basophil percentageon 2021 Basophils/100 WBC (Bld) 1.0 % 0-1 [facility] Work Phone: Chloride [Moles/Vol] 108 mmol/L 98-107 [facility] Work Phone: Eosinophils/100 WBC (Bld) 8.7 % 0-5 [facility] Work Phone: Glucose [Mass/Vol] 76 mg/dL 74-106 [facility] Work Phone: Neutrophils (Bld) [#/Vol] 1.8 10*3/uL 2.0-7.7 [facility] Work Phone: Neutrophils/100 WBC (Bld) 30.4 % 47-70 [facility] Work Phone: Potassium [Moles/Vol] 3.9 mmol/L 3.5-5.1 [facility] Work Phone: Sodium [Moles/Vol] 142 mmol/L 136-145 [facility] Work Phone: WBC (Bld) [#/Vol] 6.0 10*3/uL 4.4-11.0 [facility] Work Phone: Blood erythrocytes count (nu mber/volume)on 12-02-2021 RBC (Bld) [#/Vol] 3.43 10*6/uL 4.2-5.4 [facility] Work Phone: Blood hemoglobin measurement (mass/volume)on 12-02-2021 Hemoglobin (Bld) [Mass/Vol] 11.1 g/dL 12.0-15.0 [facility] Work Phone: Blood lymphocytes/100 leukoc yteson 12-02-2021 Lymphocytes/100 WBC (Bld) 50.2 % 19-41 [facility] Work Phone: Blood monocytes/100 leukocyt eson 12-02-2021 Monocytes/100 WBC (Bld) 9.5 % 0-10 [facility] Work Phone: Blood platelet mean volumeon 12-02-2021 Platelet mean volume (Bld) [Entitic vol] 10.6 fL 6.2-12.0 [facility] Work Phone: Determination of erythrocyte mean corpuscular volume (MCV)on 12-02-2021 MCV (RBC) [Entitic vol] 103.8 fL 81-99 [facility] Work Phone: Hematocrit Auto (Bld) [Volum e fraction]on 12-02-2021 Hematocrit (Bld) [Volume fraction] 35.6 % 37-47 [facility] Work Phone: Laboratory - Chemistry and C hemistry - challengeon 12-02-2021 CO2 [Moles/Vol] 29.0 mmol/L 21.0-32.0 [facility] Work Phone: Urea nitrogen/Creatinine [Mass ratio] 8.5 mg/mg 10-20 [facility] Work Phone: Laboratory - Hematology and Cell countson 12-02-2021 Erythrocyte distribution width (RBC) [Entitic vol] 47.6 fL 35.1-43.9 [facility] Work Phone: Erythrocyte distribution width (RBC) [Ratio] 12.4 % 11.6-14.6 [facility] Work Phone: Immature granulocytes/100 WBC (Bld) 0.200 % 0.0-0.9 [facility] Work Phone: Comment on above: IG% - Immature Granu locytes (promyelocytes, myelocytes and metamyelocytes) > 1% indicates that a LEFT SHIFT is Present. MCH (RBC) [Entitic mass] 32.4 pg 27.0-32.0 [facility] Work Phone: Nucleated RBC/100 WBC (Bld) [Ratio] 0 % 0-5 [facility] Work Phone: MCHC Auto (RBC) [Mass/Vol]on 12-02-2021 MCHC (RBC) [Mass/Vol] 31.2 g/dL 32-36 [facility] Work Phone: No Panel Informationon 12-02 Estimated GFR (MDRD) Amer 105 mL/min >60 [facility] Work Phone: Comment on above: GFR Calc Estimated GFR (MDRD) Non-Af Amer 86 mL/min >60 [facility] Work Phone: Comment on above: Non- GFR Calc Platelets bldon 12-02-2021 Platelets (Bld) [#/Vol] 254 10*3/uL 150-450 [facility] Work Phone: Serum or plasma calcium moriah urement (mass/volume)on 12-02-2021 Calcium [Mass/Vol] 8.6 mg/dL 8.5-10.1 [facility] Work Phone: Serum or plasma creatinine m easurement (mass/volume)on 12-02-2021 Creatinine [Mass/Vol] 0.71 mg/dL 0.55-1.02 [facility] Work Phone: Comment on above: The validity of the calculated GFR & GFRAA in patients over 70 years has not been determined. Clinical correlation is essential. Serum or plasma urea nitroge n measurement (mass/volume)on 12-02-2021 Urea nitrogen [Mass/Vol] 6 mg/dL 7-18 [facility] Work Phone: Thin prep Papanicolaou smear with manual screeningon 12-02-2021 Thin prep Papanicolaou smear with manual screening 5 5-15 [facility] Work Phone: Absolute lymphocyte counton 11-25-2021 Lymphocytes Auto (Unsp spec) [#/Vol] 2.70 10*3/uL 0.83-4.51 [facility] Work Phone: Basophil percentageon 2021 Basophils/100 WBC (Bld) 1.1 % 0-1 [facility] Work Phone: Chloride [Moles/Vol] 107 mmol/L 98-107 [facility] Work Phone: Eosinophils/100 WBC (Bld) 8.6 % 0-5 [facility] Work Phone: Glucose [Mass/Vol] 77 mg/dL 74-106 [facility] Work Phone: Neutrophils (Bld) [#/Vol] 1.6 10*3/uL 2.0-7.7 [facility] Work Phone: Neutrophils/100 WBC (Bld) 29.4 % 47-70 [facility] Work Phone: Potassium [Moles/Vol] 3.7 mmol/L 3.5-5.1 [facility] Work Phone: Sodium [Moles/Vol] 142 mmol/L 136-145 [facility] Work Phone: WBC (Bld) [#/Vol] 5.4 10*3/uL 4.4-11.0 [facility] Work Phone: Blood erythrocytes count (nu mber/volume)on 11-25-2021 RBC (Bld) [#/Vol] 3.46 10*6/uL 4.2-5.4 [facility] Work Phone: Blood hemoglobin measurement (mass/volume)on 11-25-2021 Hemoglobin (Bld) [Mass/Vol] 11.3 g/dL 12.0-15.0 [facility] Work Phone: Blood lymphocytes/100 leukoc yteson 11-25-2021 Lymphocytes/100 WBC (Bld) 50.3 % 19-41 [facility] Work Phone: Blood monocytes/100 leukocyt eson 11-25-2021 Monocytes/100 WBC (Bld) 10.4 % 0-10 [facility] Work Phone: Blood platelet mean volumeon 11-25-2021 Platelet mean volume (Bld) [Entitic vol] 10.4 fL 6.2-12.0 [facility] Work Phone: Determination of erythrocyte mean corpuscular volume (MCV)on 11-25-2021 MCV (RBC) [Entitic vol] 102.9 fL 81-99 [facility] Work Phone: Hematocrit Auto (Bld) [Volum e fraction]on 11-25-2021 Hematocrit (Bld) [Volume fraction] 35.6 % 37-47 [facility] Work Phone: Laboratory - Chemistry and C hemistry - challengeon 11-25-2021 CO2 [Moles/Vol] 29.0 mmol/L 21.0-32.0 [facility] Work Phone: Urea nitrogen/Creatinine [Mass ratio] 8.9 mg/mg 10-20 [facility] Work Phone: Laboratory - Hematology and Cell countson 11-25-2021 Erythrocyte distribution width (RBC) [Entitic vol] 47.5 fL 35.1-43.9 [facility] Work Phone: Erythrocyte distribution width (RBC) [Ratio] 12.7 % 11.6-14.6 [facility] Work Phone: Immature granulocytes/100 WBC (Bld) 0.200 % 0.0-0.9 [facility] Work Phone: Comment on above: IG% - Immature Granu locytes (promyelocytes, myelocytes and metamyelocytes) > 1% indicates that a LEFT SHIFT is Present. MCH (RBC) [Entitic mass] 32.7 pg 27.0-32.0 [facility] Work Phone: Nucleated RBC/100 WBC (Bld) [Ratio] 0 % 0-5 [facility] Work Phone: MCHC Auto (RBC) [Mass/Vol]on 11-25-2021 MCHC (RBC) [Mass/Vol] 31.7 g/dL 32-36 [facility] Work Phone: No Panel Informationon 11-25 Estimated GFR (MDRD) Amer 111 mL/min >60 [facility] Work Phone: Comment on above: GFR Calc Estimated GFR (MDRD) Non-Af Amer 92 mL/min >60 [facility] Work Phone: Comment on above: Non- GFR Calc Platelets bldon 11-25-2021 Platelets (Bld) [#/Vol] 278 10*3/uL 150-450 [facility] Work Phone: Serum or plasma calcium moriah urement (mass/volume)on 11-25-2021 Calcium [Mass/Vol] 8.8 mg/dL 8.5-10.1 [facility] Work Phone: Serum or plasma creatinine m easurement (mass/volume)on 11-25-2021 Creatinine [Mass/Vol] 0.67 mg/dL 0.55-1.02 [facility] Work Phone: Comment on above: The validity of the calculated GFR & GFRAA in patients over 70 years has not been determined. Clinical correlation is essential. Serum or plasma urea nitroge n measurement (mass/volume)on 11-25-2021 Urea nitrogen [Mass/Vol] 6 mg/dL 7-18 [facility] Work Phone: Thin prep Papanicolaou smear with manual screeningon 11-25-2021 Thin prep Papanicolaou smear with manual screening 6 5-15 [facility] Work Phone: Absolute lymphocyte counton 11-18-2021 Lymphocytes Auto (Unsp spec) [#/Vol] 2.55 10*3/uL 0.83-4.51 [facility] Work Phone: Basophil percentageon 2021 Basophils/100 WBC (Bld) 1.0 % 0-1 [facility] Work Phone: Chloride [Moles/Vol] 108 mmol/L 98-107 [facility] Work Phone: Eosinophils/100 WBC (Bld) 6.6 % 0-5 [facility] Work Phone: Glucose [Mass/Vol] 75 mg/dL 74-106 [facility] Work Phone: Neutrophils (Bld) [#/Vol] 2.3 10*3/uL 2.0-7.7 [facility] Work Phone: Neutrophils/100 WBC (Bld) 38.2 % 47-70 [facility] Work Phone: Potassium [Moles/Vol] 3.6 mmol/L 3.5-5.1 [facility] Work Phone: Sodium [Moles/Vol] 142 mmol/L 136-145 [facility] Work Phone: WBC (Bld) [#/Vol] 5.9 10*3/uL 4.4-11.0 [facility] Work Phone: Blood erythrocytes count (nu mber/volume)on 11-18-2021 RBC (Bld) [#/Vol] 3.32 10*6/uL 4.2-5.4 [facility] Work Phone: Blood hemoglobin measurement (mass/volume)on 11-18-2021 Hemoglobin (Bld) [Mass/Vol] 10.9 g/dL 12.0-15.0 [facility] Work Phone: Blood lymphocytes/100 leukoc yteson 11-18-2021 Lymphocytes/100 WBC (Bld) 43.2 % 19-41 [facility] Work Phone: Blood monocytes/100 leukocyt eson 11-18-2021 Monocytes/100 WBC (Bld) 10.8 % 0-10 [facility] Work Phone: Blood platelet mean volumeon 11-18-2021 Platelet mean volume (Bld) [Entitic vol] 10.1 fL 6.2-12.0 [facility] Work Phone: Determination of erythrocyte mean corpuscular volume (MCV)on 11-18-2021 MCV (RBC) [Entitic vol] 103.3 fL 81-99 [facility] Work Phone: Hematocrit Auto (Bld) [Volum e fraction]on 11-18-2021 Hematocrit (Bld) [Volume fraction] 34.3 % 37-47 [facility] Work Phone: Laboratory - Chemistry and C hemistry - challengeon 11-18-2021 CO2 [Moles/Vol] 32.0 mmol/L 21.0-32.0 [facility] Work Phone: Urea nitrogen/Creatinine [Mass ratio] 10.9 mg/mg 10-20 [facility] Work Phone: Laboratory - Hematology and Cell countson 11-18-2021 Erythrocyte distribution width (RBC) [Entitic vol] 49.1 fL 35.1-43.9 [facility] Work Phone: Erythrocyte distribution width (RBC) [Ratio] 13.0 % 11.6-14.6 [facility] Work Phone: Immature granulocytes/100 WBC (Bld) 0.200 % 0.0-0.9 [facility] Work Phone: Comment on above: IG% - Immature Granu locytes (promyelocytes, myelocytes and metamyelocytes) > 1% indicates that a LEFT SHIFT is Present. MCH (RBC) [Entitic mass] 32.8 pg 27.0-32.0 [facility] Work Phone: Nucleated RBC/100 WBC (Bld) [Ratio] 0 % 0-5 [facility] Work Phone: MCHC Auto (RBC) [Mass/Vol]on 11-18-2021 MCHC (RBC) [Mass/Vol] 31.8 g/dL 32-36 [facility] Work Phone: No Panel Informationon 11-18 Estimated GFR (MDRD) Amer 117 mL/min >60 [facility] Work Phone: Comment on above: GFR Calc Estimated GFR (MDRD) Non-Af Amer 97 mL/min >60 [facility] Work Phone: Comment on above: Non- GFR Calc Platelets bldon 11-18-2021 Platelets (Bld) [#/Vol] 281 10*3/uL 150-450 [facility] Work Phone: Serum or plasma calcium moriah urement (mass/volume)on 11-18-2021 Calcium [Mass/Vol] 8.6 mg/dL 8.5-10.1 [facility] Work Phone: Serum or plasma creatinine m easurement (mass/volume)on 11-18-2021 Creatinine [Mass/Vol] 0.64 mg/dL 0.55-1.02 [facility] Work Phone: Comment on above: The validity of the calculated GFR & GFRAA in patients over 70 years has not been determined. Clinical correlation is essential. Serum or plasma urea nitroge n measurement (mass/volume)on 11-18-2021 Urea nitrogen [Mass/Vol] 7 mg/dL 7-18 [facility] Work Phone: Thin prep Papanicolaou smear with manual screeningon 11-18-2021 Thin prep Papanicolaou smear with manual screening 2 5-15 [facility] Work Phone: Absolute lymphocyte counton 11-11-2021 Lymphocytes Auto (Unsp spec) [#/Vol] 2.30 10*3/uL 0.83-4.51 [facility] Work Phone: Basophil percentageon 2021 Basophils/100 WBC (Bld) 1.0 % 0-1 [facility] Work Phone: Chloride [Moles/Vol] 106 mmol/L 98-107 [facility] Work Phone: Eosinophils/100 WBC (Bld) 8.8 % 0-5 [facility] Work Phone: Glucose [Mass/Vol] 83 mg/dL 74-106 [facility] Work Phone: Neutrophils (Bld) [#/Vol] 2.5 10*3/uL 2.0-7.7 [facility] Work Phone: Neutrophils/100 WBC (Bld) 41.1 % 47-70 [facility] Work Phone: Potassium [Moles/Vol] 4.0 mmol/L 3.5-5.1 [facility] Phone: Sodium [Moles/Vol] 141 mmol/L 136-145 [facility] Work Phone: WBC (Bld) [#/Vol] 6.2 10*3/uL 4.4-11.0 [facility] Work Phone: Blood erythrocytes count (nu mber/volume)on 11-11-2021 RBC (Bld) [#/Vol] 3.46 10*6/uL 4.2-5.4 [facility] Work Phone: Blood hemoglobin measurement (mass/volume)on 11-11-2021 Hemoglobin (Bld) [Mass/Vol] 11.4 g/dL 12.0-15.0 [facility] Work Phone: Blood lymphocytes/100 leukoc yteson 11-11-2021 Lymphocytes/100 WBC (Bld) 37.4 % 19-41 [facility] Work Phone: Blood monocytes/100 leukocyt eson 11-11-2021 Monocytes/100 WBC (Bld) 11.4 % 0-10 [facility] Work Phone: Blood platelet mean volumeon 11-11-2021 Platelet mean volume (Bld) [Entitic vol] 10.1 fL 6.2-12.0 [facility] Work Phone: Determination of erythrocyte mean corpuscular volume (MCV)on 11-11-2021 MCV (RBC) [Entitic vol] 102.0 fL 81-99 [facility] Work Phone: Hematocrit Auto (Bld) [Volum e fraction]on 11-11-2021 Hematocrit (Bld) [Volume fraction] 35.3 % 37-47 [facility] Work Phone: Laboratory - Chemistry and C hemistry - challengeon 11-11-2021 CO2 [Moles/Vol] 31.0 mmol/L 21.0-32.0 [facility] Work Phone: Urea nitrogen/Creatinine [Mass ratio] 5.0 mg/mg 10-20 [facility] Work Phone: Laboratory - Hematology and Cell countson 11-11-2021 Erythrocyte distribution width (RBC) [Entitic vol] 50.2 fL 35.1-43.9 [facility] Work Phone: Erythrocyte distribution width (RBC) [Ratio] 13.3 % 11.6-14.6 [facility] Work Phone: Immature granulocytes/100 WBC (Bld) 0.300 % 0.0-0.9 [facility] Work Phone: Comment on above: IG% - Immature Granu locytes (promyelocytes, myelocytes and metamyelocytes) > 1% indicates that a LEFT SHIFT is Present. MCH (RBC) [Entitic mass] 32.9 pg 27.0-32.0 [facility] Work Phone: Nucleated RBC/100 WBC (Bld) [Ratio] 0 % 0-5 [facility] Work Phone: MCHC Auto (RBC) [Mass/Vol]on 11-11-2021 MCHC (RBC) [Mass/Vol] 32.3 g/dL 32-36 [facility] Work Phone: No Panel Informationon 11-11 Estimated GFR (MDRD) Amer 91 mL/min >60 [facility] Work Phone: Comment on above: GFR Calc Estimated GFR (MDRD) Non-Af Amer 75 mL/min >60 [facility] Work Phone: Comment on above: Non- GFR Calc Platelets bldon 11-11-2021 Platelets (Bld) [#/Vol] 265 10*3/uL 150-450 [facility] Work Phone: Serum or plasma calcium moriah urement (mass/volume)on 11-11-2021 Calcium [Mass/Vol] 8.7 mg/dL 8.5-10.1 [facility] Work Phone: Serum or plasma creatinine m easurement (mass/volume)on 11-11-2021 Creatinine [Mass/Vol] 0.80 mg/dL 0.55-1.02 [facility] Work Phone: Comment on above: The validity of the calculated GFR & GFRAA in patients over 70 years has not been determined. Clinical correlation is essential. Serum or plasma urea nitroge n measurement (mass/volume)on 11-11-2021 Urea nitrogen [Mass/Vol] 4 mg/dL 7-18 [facility] Work Phone: Thin prep Papanicolaou smear with manual screeningon 11-11-2021 Thin prep Papanicolaou smear with manual screening 4 5-15 [facility] Work Phone: Absolute lymphocyte counton 11-04-2021 Lymphocytes Auto (Unsp spec) [#/Vol] 2.09 10*3/uL 0.83-4.51 [facility] Work Phone: Basophil percentageon 2021 Basophils/100 WBC (Bld) 0.8 % 0-1 [facility] Work Phone: Chloride [Moles/Vol] 106 mmol/L 98-107 [facility] Work Phone: Eosinophils/100 WBC (Bld) 9.1 % 0-5 [facility] Work Phone: Glucose [Mass/Vol] 123 mg/dL 74-106 [facility] Work Phone: Comment on above: Fasting Glucose resu lt from 100 to 125 mg/dL suggests IMPAIRED HOMEOSTASIS per A.D.A. criteria. Neutrophils (Bld) [#/Vol] 4.1 10*3/uL 2.0-7.7 [facility] Work Phone: Neutrophils/100 WBC (Bld) 55.0 % 47-70 [facility] Work Phone: Potassium [Moles/Vol] 3.9 mmol/L 3.5-5.1 [facility] Work Phone: Sodium [Moles/Vol] 142 mmol/L 136-145 [facility] Work Phone: WBC (Bld) [#/Vol] 7.5 10*3/uL 4.4-11.0 [facility] Work Phone: Blood erythrocytes count (nu mber/volume)on 11-04-2021 RBC (Bld) [#/Vol] 3.57 10*6/uL 4.2-5.4 [facility] Work Phone: Blood hemoglobin measurement (mass/volume)on 11-04-2021 Hemoglobin (Bld) [Mass/Vol] 11.7 g/dL 12.0-15.0 [facility] Work Phone: Blood lymphocytes/100 leukoc yteson 11-04-2021 Lymphocytes/100 WBC (Bld) 28.0 % 19-41 [facility] Work Phone: Blood monocytes/100 leukocyt eson 11-04-2021 Monocytes/100 WBC (Bld) 6.8 % 0-10 [facility] Work Phone: Blood platelet mean volumeon 11-04-2021 Platelet mean volume (Bld) [Entitic vol] 10.1 fL 6.2-12.0 [facility] Work Phone: Determination of erythrocyte mean corpuscular volume (MCV)on 11-04-2021 MCV (RBC) [Entitic vol] 104.8 fL 81-99 [facility] Work Phone: Hematocrit Auto (Bld) [Volum e fraction]on 11-04-2021 Hematocrit (Bld) [Volume fraction] 37.4 % 37-47 [facility] Work Phone: Laboratory - Chemistry and C hemistry - challengeon 11-04-2021 CO2 [Moles/Vol] 29.0 mmol/L 21.0-32.0 [facility] Work Phone: Urea nitrogen/Creatinine [Mass ratio] 13.3 mg/mg 10-20 [facility] Work Phone: Laboratory - Hematology and Cell countson 11-04-2021 Erythrocyte distribution width (RBC) [Entitic vol] 52.9 fL 35.1-43.9 [facility] Work Phone: Erythrocyte distribution width (RBC) [Ratio] 13.6 % 11.6-14.6 [facility] Work Phone: Immature granulocytes/100 WBC (Bld) 0.300 % 0.0-0.9 [facility] Work Phone: Comment on above: IG% - Immature Granu locytes (promyelocytes, myelocytes and metamyelocytes) > 1% indicates that a LEFT SHIFT is Present. MCH (RBC) [Entitic mass] 32.8 pg 27.0-32.0 [facility] Work Phone: Nucleated RBC/100 WBC (Bld) [Ratio] 0 % 0-5 [facility] Work Phone: MCHC Auto (RBC) [Mass/Vol]on 11-04-2021 MCHC (RBC) [Mass/Vol] 31.3 g/dL 32-36 [facility] Work Phone: No Panel Informationon 11-04 Estimated GFR (MDRD) Amer 110 mL/min >60 [facility] Work Phone: Comment on above: GFR Calc Estimated GFR (MDRD) Non-Af Amer 91 mL/min >60 [facility] Work Phone: Comment on above: Non- GFR Calc Platelets bldon 11-04-2021 Platelets (Bld) [#/Vol] 294 10*3/uL 150-450 [facility] Work Phone: Serum or plasma calcium moriah urement (mass/volume)on 11-04-2021 Calcium [Mass/Vol] 8.7 mg/dL 8.5-10.1 [facility] Work Phone: Serum or plasma creatinine m easurement (mass/volume)on 11-04-2021 Creatinine [Mass/Vol] 0.68 mg/dL 0.55-1.02 [facility] Work Phone: Comment on above: The validity of the calculated GFR & GFRAA in patients over 70 years has not been determined. Clinical correlation is essential. Serum or plasma urea nitroge n measurement (mass/volume)on 11-04-2021 Urea nitrogen [Mass/Vol] 9 mg/dL 7-18 [facility] Work Phone: Thin prep Papanicolaou smear with manual screeningon 11-04-2021 Thin prep Papanicolaou smear with manual screening 7 5-15 [facility] Work Phone: Absolute lymphocyte counton 10-28-2021 Lymphocytes Auto (Unsp spec) [#/Vol] 2.54 10*3/uL 0.83-4.51 [facility] Work Phone: Basophil percentageon 2021 Basophils/100 WBC (Bld) 0.7 % 0-1 [facility] Work Phone: Chloride [Moles/Vol] 106 mmol/L 98-107 [facility] Work Phone: Eosinophils/100 WBC (Bld) 6.6 % 0-5 [facility] Work Phone: Glucose [Mass/Vol] 82 mg/dL 74-106 [facility] Work Phone: Neutrophils (Bld) [#/Vol] 3.1 10*3/uL 2.0-7.7 [facility] Work Phone: Neutrophils/100 WBC (Bld) 44.3 % 47-70 [facility] Work Phone: Potassium [Moles/Vol] 4.3 mmol/L 3.5-5.1 [facility] Work Phone: Sodium [Moles/Vol] 141 mmol/L 136-145 [facility] Work Phone: WBC (Bld) [#/Vol] 6.9 10*3/uL 4.4-11.0 [facility] Work Phone: Blood erythrocytes count (nu mber/volume)on 10-28-2021 RBC (Bld) [#/Vol] 3.52 10*6/uL 4.2-5.4 [facility] Work Phone: Blood hemoglobin measurement (mass/volume)on 10-28-2021 Hemoglobin (Bld) [Mass/Vol] 11.4 g/dL 12.0-15.0 [facility] Work Phone: Blood lymphocytes/100 leukoc yteson 10-28-2021 Lymphocytes/100 WBC (Bld) 36.7 % 19-41 [facility] Work Phone: Blood monocytes/100 leukocyt eson 10-28-2021 Monocytes/100 WBC (Bld) 11.3 % 0-10 [facility] Work Phone: Blood platelet mean volumeon 10-28-2021 Platelet mean volume (Bld) [Entitic vol] 10.1 fL 6.2-12.0 [facility] Work Phone: Determination of erythrocyte mean corpuscular volume (MCV)on 10-28-2021 MCV (RBC) [Entitic vol] 105.7 fL 81-99 [facility] Work Phone: Hematocrit Auto (Bld) [Volum e fraction]on 10-28-2021 Hematocrit (Bld) [Volume fraction] 37.2 % 37-47 [facility] Work Phone: Laboratory - Chemistry and C hemistry - challengeon 10-28-2021 CO2 [Moles/Vol] 30.0 mmol/L 21.0-32.0 [facility] Work Phone: Urea nitrogen/Creatinine [Mass ratio] 15.8 mg/mg 10-20 [facility] Work Phone: Laboratory - Hematology and Cell countson 10-28-2021 Erythrocyte distribution width (RBC) [Entitic vol] 51.7 fL 35.1-43.9 [facility] Work Phone: Erythrocyte distribution width (RBC) [Ratio] 13.6 % 11.6-14.6 [facility] Work Phone: Immature granulocytes/100 WBC (Bld) 0.400 % 0.0-0.9 [facility] Work Phone: Comment on above: IG% - Immature Granu locytes (promyelocytes, myelocytes and metamyelocytes) > 1% indicates that a LEFT SHIFT is Present. MCH (RBC) [Entitic mass] 32.4 pg 27.0-32.0 [facility] Work Phone: Nucleated RBC/100 WBC (Bld) [Ratio] 0 % 0-5 [facility] Work Phone: MCHC Auto (RBC) [Mass/Vol]on 10-28-2021 MCHC (RBC) [Mass/Vol] 30.6 g/dL 32-36 [facility] Work Phone: No Panel Informationon 10-28 Estimated GFR (MDRD) Amer 107 mL/min >60 [facility] Work Phone: Comment on above: GFR Calc Estimated GFR (MDRD) Non-Af Amer 88 mL/min >60 [facility] Work Phone: Comment on above: Non- GFR Calc Vitamin D 25-Hydroxy 40.3 ng/mL [facility] Work Phone: Comment on above: Vitamin D 25(OH) Sta tus Range Deficiency <20 ng/mL (50nmol/L) Insufficiency 20 - 30 ng/mL (50 - 75 nmol/L) Sufficiency 30 - 100 ng/mL (75 - 250 nmol/L) Toxicity >100 ng/mL (>250 nmol/L) Platelets bldon 10-28-2021 Platelets (Bld) [#/Vol] 307 10*3/uL 150-450 [facility] Work Phone: Serum or plasma calcium moriah urement (mass/volume)on 10-28-2021 Calcium [Mass/Vol] 8.7 mg/dL 8.5-10.1 [facility] Work Phone: Serum or plasma creatinine m easurement (mass/volume)on 10-28-2021 Creatinine [Mass/Vol] 0.70 mg/dL 0.55-1.02 [facility] Work Phone: Comment on above: The validity of the calculated GFR & GFRAA in patients over 70 years has not been determined. Clinical correlation is essential. Serum or plasma urea nitroge n measurement (mass/volume)on 10-28-2021 Urea nitrogen [Mass/Vol] 11 mg/dL 7-18 [facility] Work Phone: Thin prep Papanicolaou smear with manual screeningon 10-28-2021 Thin prep Papanicolaou smear with manual screening 5 5-15 [facility] Work Phone: Absolute lymphocyte counton 10-21-2021 Lymphocytes Auto (Unsp spec) [#/Vol] 3.09 10*3/uL 0.83-4.51 [facility] Work Phone: Basophil percentageon 2021 Basophils/100 WBC (Bld) 0.6 % 0-1 [facility] Work Phone: Chloride [Moles/Vol] 110 mmol/L 98-107 [facility] Work Phone: Eosinophils/100 WBC (Bld) 3.2 % 0-5 [facility] Work Phone: Glucose [Mass/Vol] 78 mg/dL 74-106 [facility] Work Phone: Neutrophils (Bld) [#/Vol] 3.7 10*3/uL 2.0-7.7 [facility] Work Phone: Neutrophils/100 WBC (Bld) 47.3 % 47-70 [facility] Work Phone: Potassium [Moles/Vol] 4.0 mmol/L 3.5-5.1 [facility] Work Phone: Sodium [Moles/Vol] 141 mmol/L 136-145 [facility] Work Phone: WBC (Bld) [#/Vol] 7.9 10*3/uL 4.4-11.0 [facility] Work Phone: Blood erythrocytes count (nu mber/volume)on 10-21-2021 RBC (Bld) [#/Vol] 3.45 10*6/uL 4.2-5.4 [facility] Work Phone: Blood hemoglobin measurement (mass/volume)on 10-21-2021 Hemoglobin (Bld) [Mass/Vol] 11.3 g/dL 12.0-15.0 [facility] Work Phone: Blood lymphocytes/100 leukoc yteson 10-21-2021 Lymphocytes/100 WBC (Bld) 39.3 % 19-41 [facility] Work Phone: Blood monocytes/100 leukocyt eson 10-21-2021 Monocytes/100 WBC (Bld) 9.0 % 0-10 [facility] Work Phone: Blood platelet mean volumeon 10-21-2021 Platelet mean volume (Bld) [Entitic vol] 9.9 fL 6.2-12.0 [facility] Work Phone: Determination of erythrocyte mean corpuscular volume (MCV)on 10-21-2021 MCV (RBC) [Entitic vol] 105.8 fL 81-99 [facility] Work Phone: Hematocrit Auto (Bld) [Volum e fraction]on 10-21-2021 Hematocrit (Bld) [Volume fraction] 36.5 % 37-47 [facility] Work Phone: Laboratory - Chemistry and C hemistry - challengeon 10-21-2021 CO2 [Moles/Vol] 29.0 mmol/L 21.0-32.0 [facility] Work Phone: Urea nitrogen/Creatinine [Mass ratio] 15.5 mg/mg 10-20 [facility] Work Phone: Laboratory - Hematology and Cell countson 10-21-2021 Erythrocyte distribution width (RBC) [Entitic vol] 50.2 fL 35.1-43.9 [facility] Work Phone: Erythrocyte distribution width (RBC) [Ratio] 13.1 % 11.6-14.6 [facility] Work Phone: Immature granulocytes/100 WBC (Bld) 0.600 % 0.0-0.9 [facility] Work Phone: Comment on above: IG% - Immature Granu locytes (promyelocytes, myelocytes and metamyelocytes) > 1% indicates that a LEFT SHIFT is Present. MCH (RBC) [Entitic mass] 32.8 pg 27.0-32.0 [facility] Work Phone: Nucleated RBC/100 WBC (Bld) [Ratio] 0 % 0-5 [facility] Work Phone: MCHC Auto (RBC) [Mass/Vol]on 10-21-2021 MCHC (RBC) [Mass/Vol] 31.0 g/dL 32-36 [facility] Work Phone: No Panel Informationon 10-21 Estimated GFR (MDRD) Amer 105 mL/min >60 [facility] Work Phone: Comment on above: GFR Calc Estimated GFR (MDRD) Non-Af Amer 87 mL/min >60 [facility] Work Phone: Comment on above: Non- GFR Calc Platelets bldon 10-21-2021 Platelets (Bld) [#/Vol] 314 10*3/uL 150-450 [facility] Work Phone: Serum or plasma calcium moriah urement (mass/volume)on 10-21-2021 Calcium [Mass/Vol] 8.5 mg/dL 8.5-10.1 [facility] Work Phone: Serum or plasma creatinine m easurement (mass/volume)on 10-21-2021 Creatinine [Mass/Vol] 0.71 mg/dL 0.55-1.02 [facility] Work Phone: Comment on above: The validity of the calculated GFR & GFRAA in patients over 70 years has not been determined. Clinical correlation is essential. Serum or plasma urea nitroge n measurement (mass/volume)on 10-21-2021 Urea nitrogen [Mass/Vol] 11 mg/dL 7-18 [facility] Work Phone: Thin prep Papanicolaou smear with manual screeningon 10-21-2021 Thin prep Papanicolaou smear with manual screening 2 5-15 [facility] Work Phone: Laboratory - Chemistry and C hemistry - challengeon 10-19-2021 Cobalamin (Vitamin B12) [Mass/Vol] 1620 pg/mL 211-911 [facility] Work Phone: No Panel Informationon 10-19 Thyroid Stimulating Hormone (TSH) 2.06 uIU/mL 0.358-3.74 [facility] Work Phone: Serum or plasma lamotrigine measurement (mass/volume)on 10-19-2021 lamoTRIgine [Mass/Vol] 3.2 ug/mL 2.0-20.0 [facility] Work Phone: Comment on above: Detection Limit = 1. 0Performed at: - [address] [id number] Director: Marino Mckeno MD, Phone: [phone] Whole blood hemoglobin A1c/t otal hemoglobin ratio (mass fraction)on 10-19-2021 HbA1c (Bld) [Mass fraction] 4.7 % 3.8-5.6 [facility] Work Phone: Comment on above: Normal < 5.7 % Predi abetic 5.7 - 6.4 % Diabetic >or= 6.5 % Please note range changes. Absolute lymphocyte counton 10-14-2021 Lymphocytes Auto (Unsp spec) [#/Vol] 2.95 10*3/uL 0.83-4.51 [facility] Work Phone: Basophil percentageon 2021 Basophils/100 WBC (Bld) 0.6 % 0-1 [facility] Work Phone: Chloride [Moles/Vol] 104 mmol/L 98-107 [facility] Work Phone: Eosinophils/100 WBC (Bld) 3.8 % 0-5 [facility] Work Phone: Glucose [Mass/Vol] 75 mg/dL 74-106 [facility] Work Phone: Neutrophils (Bld) [#/Vol] 3.1 10*3/uL 2.0-7.7 [facility] Work Phone: Neutrophils/100 WBC (Bld) 44.6 % 47-70 [facility] Work Phone: Potassium [Moles/Vol] 3.8 mmol/L 3.5-5.1 [facility] Work Phone: Comment on above: Slight Hemolysis, Re sult may be falsely increased. Sodium [Moles/Vol] 139 mmol/L 136-145 [facility] Work Phone: WBC (Bld) [#/Vol] 7.1 10*3/uL 4.4-11.0 [facility] Work Phone: Blood erythrocytes count (nu mber/volume)on 10-14-2021 RBC (Bld) [#/Vol] 3.73 10*6/uL 4.2-5.4 [facility] Work Phone: Blood hemoglobin measurement (mass/volume)on 10-14-2021 Hemoglobin (Bld) [Mass/Vol] 12.3 g/dL 12.0-15.0 [facility] Work Phone: Blood lymphocytes/100 leukoc yteson 10-14-2021 Lymphocytes/100 WBC (Bld) 41.8 % 19-41 [facility] Work Phone: Blood monocytes/100 leukocyt eson 10-14-2021 Monocytes/100 WBC (Bld) 8.8 % 0-10 [facility] Work Phone: Blood platelet adequacy dete ction by light microscopyon 10-14-2021 Platelets LM Ql (Bld) ADEQUATE ADEQ [facility] Work Phone: Blood platelet mean volumeon 10-14-2021 Platelet mean volume (Bld) [Entitic vol] 11.0 fL 6.2-12.0 [facility] Work Phone: Determination of erythrocyte mean corpuscular volume (MCV)on 10-14-2021 MCV (RBC) [Entitic vol] 104.3 fL 81-99 [facility] Work Phone: Hematocrit Auto (Bld) [Volum e fraction]on 10-14-2021 Hematocrit (Bld) [Volume fraction] 38.9 % 37-47 [facility] Work Phone: Laboratory - Chemistry and C hemistry - challengeon 10-14-2021 CO2 [Moles/Vol] 33.0 mmol/L 21.0-32.0 [facility] Work Phone: Urea nitrogen/Creatinine [Mass ratio] 9.0 mg/mg 10-20 [facility] Work Phone: Laboratory - Hematology and Cell countson 10-14-2021 Erythrocyte distribution width (RBC) [Entitic vol] 48.7 fL 35.1-43.9 [facility] Work Phone: Erythrocyte distribution width (RBC) [Ratio] 12.8 % 11.6-14.6 [facility] Work Phone: Immature granulocytes/100 WBC (Bld) 0.400 % 0.0-0.9 [facility] Work Phone: Comment on above: IG% - Immature Granu locytes (promyelocytes, myelocytes and metamyelocytes) > 1% indicates that a LEFT SHIFT is Present. MCH (RBC) [Entitic mass] 33.0 pg 27.0-32.0 [facility] Work Phone: Nucleated RBC/100 WBC (Bld) [Ratio] 0 % 0-5 [facility] Work Phone: MCHC Auto (RBC) [Mass/Vol]on 10-14-2021 MCHC (RBC) [Mass/Vol] 31.6 g/dL 32-36 [facility] Work Phone: No Panel Informationon 10-14 Estimated GFR (MDRD) Amer 113 mL/min >60 [facility] Work Phone: Comment on above: GFR Calc Estimated GFR (MDRD) Non-Af Amer 93 mL/min >60 [facility] Work Phone: Comment on above: Non- GFR Calc Platelets bldon 10-14-2021 Platelets (Bld) [#/Vol] See comment 150-450 [facility] Work Phone: Comment on above: Please note: For thi s sample, a platelet estimate is provided rather than a platelet count due to platelet clumping. Other parameters associated with this sample are not affected by platelet clumping. If a more accurate platelet count is required, a redraw of the patient will be necessary. Serum or plasma calcium moriah urement (mass/volume)on 10-14-2021 Calcium [Mass/Vol] 9.1 mg/dL 8.5-10.1 [facility] Work Phone: Serum or plasma creatinine m easurement (mass/volume)on 10-14-2021 Creatinine [Mass/Vol] 0.66 mg/dL 0.55-1.02 [facility] Work Phone: Comment on above: The validity of the calculated GFR & GFRAA in patients over 70 years has not been determined. Clinical correlation is essential. Serum or plasma urea nitroge n measurement (mass/volume)on 10-14-2021 Urea nitrogen [Mass/Vol] 6 mg/dL 7-18 [facility] Work Phone: Thin prep Papanicolaou smear with manual screeningon 10-14-2021 Thin prep Papanicolaou smear with manual screening 2 5-15 [facility] Work Phone: Absolute lymphocyte counton 10-07-2021 Lymphocytes Auto (Unsp spec) [#/Vol] 1.85 10*3/uL 0.83-4.51 [facility] Work Phone: Basophil percentageon 2021 Basophil percentage 0 SEEN /hpf 0-5 [facility] Work Phone: Basophils/100 WBC (Bld) 0.4 % 0-1 [facility] Work Phone: Chloride [Moles/Vol] 104 mmol/L 98-107 [facility] Work Phone: Eosinophils/100 WBC (Bld) 3.4 % 0-5 [facility] Work Phone: Glucose [Mass/Vol] 128 mg/dL 74-106 [facility] Work Phone: Comment on above: Fasting Glucose resu lt greater than or equal to 126 mg/dL suggests DIABETES MELLITUS per A.D.A. criteria. Neutrophils (Bld) [#/Vol] 5.1 10*3/uL 2.0-7.7 [facility] Work Phone: Neutrophils/100 WBC (Bld) 63.2 % 47-70 [facility] Work Phone: Potassium [Moles/Vol] 3.6 mmol/L 3.5-5.1 [facility] Work Phone: Sodium [Moles/Vol] 140 mmol/L 136-145 [facility] Work Phone: WBC (Bld) [#/Vol] 8.1 10*3/uL 4.4-11.0 [facility] Work Phone: Bilirubin Test strip Ql (U)o n 10-07-2021 Bilirubin Ql (U) Negative Negative [facility] Work Phone: Blood erythrocytes count (nu mber/volume)on 10-07-2021 RBC (Bld) [#/Vol] 3.47 10*6/uL 4.2-5.4 [facility] Work Phone: Blood hemoglobin measurement (mass/volume)on 10-07-2021 Hemoglobin (Bld) [Mass/Vol] 11.5 g/dL 12.0-15.0 [facility] Work Phone: Blood lymphocytes/100 leukoc yteson 10-07-2021 Lymphocytes/100 WBC (Bld) 22.8 % 19-41 [facility] Work Phone: Blood monocytes/100 leukocyt eson 10-07-2021 Monocytes/100 WBC (Bld) 10.0 % 0-10 [facility] Work Phone: Blood platelet mean volumeon 10-07-2021 Platelet mean volume (Bld) [Entitic vol] 9.8 fL 6.2-12.0 [facility] Work Phone: Determination of erythrocyte mean corpuscular volume (MCV)on 10-07-2021 MCV (RBC) [Entitic vol] 102.6 fL 81-99 [facility] Work Phone: Hematocrit Auto (Bld) [Volum e fraction]on 10-07-2021 Hematocrit (Bld) [Volume fraction] 35.6 % 37-47 [facility] Work Phone: Ketones Test strip Ql (U)on 10-07-2021 Ketones Ql (U) Negative Negative [facility] Work Phone: Laboratory - Chemistry and C hemistry - challengeon 10-07-2021 CO2 [Moles/Vol] 29.0 mmol/L 21.0-32.0 [facility] Work Phone: Urea nitrogen/Creatinine [Mass ratio] 9.5 mg/mg 01-07 [facility] Work Phone: Laboratory - Hematology and Cell countson 10-07-2021 Erythrocyte distribution width (RBC) [Entitic vol] 48.8 fL 35.1-43.9 [facility] Work Phone: Erythrocyte distribution width (RBC) [Ratio] 12.9 % 11.6-14.6 [facility] Work Phone: Immature granulocytes/100 WBC (Bld) 0.200 % 0.0-0.9 [facility] Work Phone: Comment on above: IG% - Immature Granu locytes (promyelocytes, myelocytes and metamyelocytes) > 1% indicates that a LEFT SHIFT is Present. MCH (RBC) [Entitic mass] 33.1 pg 27.0-32.0 [facility] Work Phone: Nucleated RBC/100 WBC (Bld) [Ratio] 0 % 0-5 [facility] Work Phone: MCHC Auto (RBC) [Mass/Vol]on 10-07-2021 MCHC (RBC) [Mass/Vol] 32.3 g/dL 32-36 [facility] Work Phone: Mucus LM Ql (Urine sed)on Mucus Ql (Urine sed) 0 SEEN /hpf [facility] Work Phone: Nitrite Test strip Ql (U)on 10-07-2021 Nitrite Ql (U) Negative Negative [facility] Work Phone: No Panel Informationon 10-07 Estimated Creatinine Clearance Calc 44.24 ml/min [facility] Work Phone: Estimated GFR (MDRD) Amer 86 mL/min >60 [facility] Work Phone: Comment on above: GFR Calc Estimated GFR (MDRD) Non-Af Amer 71 mL/min >60 [facility] Work Phone: Comment on above: Non- GFR Calc Platelets bldon 10-07-2021 Platelets (Bld) [#/Vol] 219 10*3/uL 150-450 [facility] Work Phone: Protein Test strip Ql (U)on 10-07-2021 Protein Ql (U) Negative Negative [facility] Work Phone: Serum or plasma calcium moriah urement (mass/volume)on 10-07-2021 Calcium [Mass/Vol] 8.6 mg/dL 8.5-10.1 [facility] Work Phone: Serum or plasma creatinine m easurement (mass/volume)on 10-07-2021 Creatinine [Mass/Vol] 0.85 mg/dL 0.55-1.02 [facility] Work Phone: Comment on above: The validity of the calculated GFR & GFRAA in patients over 70 years has not been determined. Clinical correlation is essential. Serum or plasma lamotrigine measurement (mass/volume)on 10-07-2021 lamoTRIgine [Mass/Vol] 3.7 ug/mL 2.0-20.0 [facility] Work Phone: Comment on above: Detection Limit = 1. 0Performed at: [facility] - [address] [id number] Director: Marino Mckeon MD, Phone: [phone] Serum or plasma urea nitroge n measurement (mass/volume)on 10-07-2021 Urea nitrogen [Mass/Vol] 8 mg/dL 7-18 [facility] Work Phone: Squamous epithelial cells de tection in urine sediment by light microscopyon 10-07-2021 Epithelial cells.squamous LM Ql (Urine sed) 0 SEEN /hpf 5-10 [facility] Work Phone: Thin prep Papanicolaou smear with manual screeningon 10-07-2021 Thin prep Papanicolaou smear with manual screening 7 5-15 [facility] Work Phone: Urine blood detectionon 09-19 0-2021 RBC Ql (U) Negative Negative [facility] Work Phone: RBC Ql (U) 0 SEEN /hpf 0-5 [facility] Work Phone: Urine clarityon 10-07-2021 Clarity (U) Clear Clear [facility] Work Phone: Urine color determinationon 10-07-2021 Color (U) Yellow Yellow [facility] Work Phone: Urine glucose detectionon Glucose Ql (U) Normal mg/dl Normal [facility] Work Phone: Urine leukocyte esterase det ection by dipstickon 10-07-2021 Leukocyte esterase Test strip Ql (U) Negative Negative [facility] Work Phone: Urine pHon 10-07-2021 pH (U) 6.0 [pH] 5.0 - 8.0 [facility] Work Phone: Urine sediment bacteria coun t by microscopy (number/high power field)on 10-07-2021 Bacteria LM.HPF (Urine sed) [#/Area] 0 /[HPF] None Seen [facility] Work Phone: Urine specific gravity measu rementon 10-07-2021 Specific gravity (U) [Rel density] 1.010 1.002-1.030 [facility] Work Phone: Urobilinogen Auto test strip Ql (U)on 10-07-2021 Urobilinogen Ql (U) Normal mg/dl Normal [facility] Work Phone: Basophil percentageon 2021 Basophil percentage 25-50 SEEN /hpf 0-5 [facility] Work Phone: Bilirubin Test strip Ql (U)o n 10-05-2021 Bilirubin Ql (U) Negative Negative [facility] Work Phone: Calcium oxalate crystals det ection in urine sediment by light microscopyon 10-05-2021 Calcium oxalate crystals LM Ql (Urine sed) 2+ /hpf [facility] Work Phone: Ketones Test strip Ql (U)on 10-05-2021 Ketones Ql (U) 5 mg/dl Negative [facility] Work Phone: Mucus LM Ql (Urine sed)on Mucus Ql (Urine sed) 0 SEEN /hpf [facility] Work Phone: Nitrite Test strip Ql (U)on 10-05-2021 Nitrite Ql (U) Negative Negative [facility] Work Phone: Protein Test strip Ql (U)on 10-05-2021 Protein Ql (U) 30 mg/dl Negative [facility] Work Phone: Squamous epithelial cells de tection in urine sediment by light microscopyon 10-05-2021 Epithelial cells.squamous LM Ql (Urine sed) 0-5 SEEN /hpf 5-10 [facility] Work Phone: Urine blood detectionon 09-18 RBC Ql (U) 10 /ul Negative [facility] Work Phone: RBC Ql (U) 0-5 SEEN /hpf 0-5 [facility] Work Phone: Urine clarityon 10-05-2021 Clarity (U) Sl Cldy Clear [facility] Work Phone: Urine color determinationon 10-05-2021 Color (U) Yellow Yellow [facility] Work Phone: Urine glucose detectionon Glucose Ql (U) Normal mg/dl Normal [facility] Work Phone: Urine leukocyte esterase det ection by dipstickon 10-05-2021 Leukocyte esterase Test strip Ql (U) 500 /ul Negative [facility] Work Phone: Urine pHon 10-05-2021 pH (U) 5.0 [pH] 5.0 - 8.0 [facility] Work Phone: Urine sediment bacteria coun t by microscopy (number/high power field)on 10-05-2021 Bacteria LM.HPF (Urine sed) [#/Area] 0 /[HPF] None Seen [facility] Work Phone: Urine specific gravity measu rementon 10-05-2021 Specific gravity (U) [Rel density] 1.020 1.002-1.030 [facility] Work Phone: Urobilinogen Auto test strip Ql (U)on 10-05-2021 Urobilinogen Ql (U) Normal mg/dl Normal [facility] Work Phone: Absolute lymphocyte counton 07-29-2021 Lymphocytes Auto (Unsp spec) [#/Vol] 3.13 10*3/uL 0.83-4.51 [facility] Work Phone: Basophil percentageon 2021 Basophils/100 WBC (Bld) 0.8 % 0-1 [facility] Work Phone: Chloride [Moles/Vol] 107 mmol/L 98-107 [facility] Work [facility]: Eosinophils/100 WBC (Bld) 5.5 % 0-5 [facility] Work Phone: Glucose [Mass/Vol] 78 mg/dL 74-106 [facility] Work Phone: Neutrophils (Bld) [#/Vol] 2.1 10*3/uL 2.0-7.7 [facility] Work Phone: Neutrophils/100 WBC (Bld) 32.9 % 47-70 [facility] Work Phone: Potassium [Moles/Vol] 4.1 mmol/L 3.5-5.1 [facility]: Sodium [Moles/Vol] 143 mmol/L 136-145 [facility] Work Phone: WBC (Bld) [#/Vol] 6.3 10*3/uL 4.4-11.0 [facility] Work Phone: Blood erythrocytes count (nu mber/volume)on 07-29-2021 RBC (Bld) [#/Vol] 3.50 10*6/uL 4.2-5.4 [facility] Work Phone: Blood hemoglobin measurement (mass/volume)on 07-29-2021 Hemoglobin (Bld) [Mass/Vol] 11.1 g/dL 12.0-15.0 [facility] Work Phone: Blood lymphocytes/100 leukoc yteson 07-29-2021 Lymphocytes/100 WBC (Bld) 49.6 % 19-41 [facility] Work Phone: Blood monocytes/100 leukocyt eson 07-29-2021 Monocytes/100 WBC (Bld) 10.9 % 0-10 [facility] Work Phone: Blood platelet mean volumeon 07-29-2021 Platelet mean volume (Bld) [Entitic vol] 9.8 fL 6.2-12.0 [facility] Work Phone: Determination of erythrocyte mean corpuscular volume (MCV)on 07-29-2021 MCV (RBC) [Entitic vol] 102.3 fL 81-99 [facility] Work Phone: Hematocrit Auto (Bld) [Volum e fraction]on 07-29-2021 Hematocrit (Bld) [Volume fraction] 35.8 % 37-47 [facility] Work Phone: Laboratory - Chemistry and C hemistry - challengeon 07-29-2021 CO2 [Moles/Vol] 33.0 mmol/L 21.0-32.0 [facility] Work Phone: Urea nitrogen/Creatinine [Mass ratio] 6.5 mg/mg 10-20 [facility] Work Phone: Laboratory - Hematology and Cell countson 07-29-2021 Erythrocyte distribution width (RBC) [Entitic vol] 44.4 fL 35.1-43.9 [facility] Work Phone: Erythrocyte distribution width (RBC) [Ratio] 11.7 % 11.6-14.6 [facility] Work Phone: Immature granulocytes/100 WBC (Bld) 0.300 % 0.0-0.9 [facility] Work Phone: Comment on above: IG% - Immature Granu locytes (promyelocytes, myelocytes and metamyelocytes) > 1% indicates that a LEFT SHIFT is Present. MCH (RBC) [Entitic mass] 31.7 pg 27.0-32.0 [facility] Work Phone: Nucleated RBC/100 WBC (Bld) [Ratio] 0 % 0-5 [facility] Work Phone: MCHC Auto (RBC) [Mass/Vol]on 07-29-2021 MCHC (RBC) [Mass/Vol] 31.0 g/dL 32-36 [facility] Work Phone: No Panel Informationon 07-29 Estimated GFR (MDRD) Amer 96 mL/min >60 [facility] Work Phone: Comment on above: GFR Calc Estimated GFR (MDRD) Non-Af Amer 79 mL/min >60 [facility] Work Phone: Comment on above: Non- GFR Calc Platelets bldon 07-29-2021 Platelets (Bld) [#/Vol] 261 10*3/uL 150-450 [facility] Work Phone: Serum or plasma calcium moriah urement (mass/volume)on 07-29-2021 Calcium [Mass/Vol] 8.6 mg/dL 8.5-10.1 [facility] Work Phone: Serum or plasma creatinine m easurement (mass/volume)on 07-29-2021 Creatinine [Mass/Vol] 0.77 mg/dL 0.55-1.02 [facility] Work Phone: Comment on above: The validity of the calculated GFR & GFRAA in patients over 70 years has not been determined. Clinical correlation is essential. Serum or plasma urea nitroge n measurement (mass/volume)on 07-29-2021 Urea nitrogen [Mass/Vol] 5 mg/dL 7-18 [facility] Work Phone: Thin prep Papanicolaou smear with manual screeningon 07-29-2021 Thin prep Papanicolaou smear with manual screening 3 5-15 [facility] Work Phone: Whole blood hemoglobin A1c/t otal hemoglobin ratio (mass fraction)on 07-29-2021 HbA1c (Bld) [Mass fraction] 5.0 % 3.8-5.6 [facility] Work Phone: Comment on above: Normal < 5.7 % Predi abetic 5.7 - 6.4 % Diabetic >or= 6.5 % Please note range changes. Basophil percentageon 2021 Bilirubin [Mass/Vol] 0.20 mg/dL 0.20-1.00 [facility] Work Phone: Comment on above: For patients on eltr ombopag therapy, use of Dimension [place] TBIL is not recommended. Cholesterol [Mass/Vol] 139 mg/dL <200 [facility] Work Phone: Comment on above: <200 mg/dL Desirable 200-240 mg/dL Borderline >240 mg/dL High Risk Protein [Mass/Vol] 5.8 g/dL 6.4-8.2 [facility] Work Phone: Triglyceride [Mass/Vol] 91 mg/dL [facility] Work Phone: Comment on above: The drugs N-Acetylcy steine and Metamizole may falsely depress this assay.Serum Triglycerides Reference Interval Normal <150 mg/dL Borderline high 150 - 199 mg/dL High 200 - 499 mg/dL Very High > or = 500 mg/dL Direct bilirubinon 2 Bilirubin.direct [Mass/Vol] mg/dL 0.00-0.30 [facility] Work Phone: Laboratory - Chemistry and C hemistry - challengeon 04-20-2021 ALP [Catalytic activity/Vol] 67 U/L 45-117 [facility] Work Phone: ALT [Catalytic activity/Vol] 15 U/L 13-56 [facility] Work Phone: Globulin (S) [Mass/Vol] 2.9 g/dL 2.2-4.2 [facility] Work Phone: Serum or plasma albumin moriah urement (mass/volume)on 04-20-2021 Albumin [Mass/Vol] 2.9 g/dL 3.2-5.0 [facility] Work Phone: Serum or plasma cholesterol in HDL measurement (mass/volume)on 04-20-2021 Cholesterol in HDL [Mass/Vol] 54 mg/dL [facility] Work Phone: Comment on above: The drugs N-Acetylcy steine and Metamizole may falsely depress this assay. Reference Range HDL <40 mg/dL Low HDL Cholesterol HDL >or= 60 mg/dL High HDL Cholesterol Serum or plasma cholesterol in VLDL measurement (mass/volume)on 04-20-2021 Cholesterol in VLDL [Mass/Vol] 18 mg/dL 5-40 [facility] Work Phone: Serum or plasma low density lipoprotein (LDL) cholesterol measurement (mass/volume)on 04-20-2021 Cholesterol in LDL [Mass/Vol] 67 mg/dL 0-130 [facility] Work Phone: Thin prep Papanicolaou smear with manual screeningon 04-20-2021 Thin prep Papanicolaou smear with manual screening 13 U/L 15-37 [facility] Work Phone: Clinical Summary: HMSPatient IDon 10-24-2018 WOP [facility] Work Phone: Clinical Summary: Scanned RO S Summaryon 10-24-2018 endocrine ROS Denies [facility] Work Phone: Gastrointestional review of systems, comment Hemorrhoids [facility] Work Phone: genitourinary review of systems, E&M Denies [facility] Work Phone: Lymphocytes (Bld) [#/Vol] Denies [facility] Work Phone: ROS cardiovascular [facility] Work [facility]: ROS ENT comment Dentures [facility] Work Phone: ROS ENT E&M Complains [facility] Work Phone: ROS gastrointestinal E&M Complains [facility] Work Phone: ROS [facility]M [facility] Work [facility]: ROS Musculoskeletal comments Muscle Cramps,Muscle Weakness,Pain,Joint Pain,Stiffness,Arthri tis [facility] Work Phone: ROS musculoskeletal E&M Complains C rystal [facility] Work Phone: ROS neurological E&M Denies Alexanrda nicolette [facility] Work Phone: ROS Psych comment Memory Loss Aruna l [facility] Work Phone: ROS psychiatric E&M Complains C[facility] Work Phone: ROS pulmonary E&M Denies [facility] Work Phone: ROS skin E&M Denies [facility] Work Phone: Office Visit: New - 1st visi t with practice, Rm: 2on 10-24-2018 NEGATED: Highlighted rowMRI (magnetic resonance imaging) history of the Left Hip on 10/10/2018 at [facility] Work Phone: NEGATED: Highlighted rowTobacco smoking status NHIS Tobacco smoking status [facility] Work Phone: NEGATED: Highlighted rowxray history of the Left hip with Pelvis on 09/06/2018 at [facility] Work Phone: Clinical Lists Update: Prelo ad Extendedon 10-20-2018 Tobacco smoking status NHIS Tobacco smoking status [facility] Work Phone: MRI Low Ext Joint w/o Contra st Lefton 10-11-2018 MRI Low Ext Joint w/o Contrast Left Patient Name: CANDI AGUILAR MRI Exam Date/Time 10/10/2018 14:30:01 EDT Exam MRI Low Ext Joint w/o Contrast Left Ordering Physician DO TATUM EUGENE F. Accession Number [id number] CPT4 Codes 21059 () Reason For Exam left hip, eval anteriolateral joint pain for 2 months Report Examination: MRI pelvis/left hip Indication: left hip, eval anterolateral joint pain for 2 months Technique: Multiplanar multi-sequence MRI images of the pelvis/left hip were obtained. Findings: Mild thinning and irregularity of the articular cartilage of the left hip is present there is no occult fracture. No obvious labral tear of the left hip is noted, however assessment is slightly limited. There is tendinosis of the left gluteus minimus tendon insertion. There also does appear to be partial tearing of the left gluteus minimus tendon insertion on the left as demonstrated on oblique axial image 10 of series 10 and image 21 of series 6. Probable mild degenerative changes of the right hip are present. The right hip is otherwise unremarkable on the provided larger [id number] images. Small endplate osteophytes of the spine are present. Degenerative facet changes of the lower lumbar spine are noted. The sacroiliac joints are grossly unremarkable. Left ischiofemoral interval measures 1.5 cm. The right also measures approximately 1.5 cm. Hamstring origins are grossly intact and unremarkable. Impression: Tendinosis of the left gluteus minimus tendon insertion with partial tearing. Mild degenerative changes of the hips. Degenerative changes of the lower lumbar spine. No occult fracture. Report Dictated on Workstation: [id number] Final Dictating Physician: MD VANEGAS KRIKOR Signed Date and Time: 10/11/2018 8:22 am Signed by: MD VANEGAS KRIKOR Transcribed Date and Time: 10/11/2018 8:23 Normal [facility] CR Knee Complete 4+ Views Bi lateralon 09-07-2018 CR Knee Complete 4+ Views Bilateral Patient Name: CANDI AGUILAR Diagnostic Radiology Exam Date/Time 09/06/2018 11:56:00 EDT Exam CR Knee Complete 4+ Views Bilateral Ordering Physician DO TATUM EUGENE F. Accession Number [id number] CPT4 Codes 65503 () Reason For Exam primary osteoarthritis of both knees Report BILATERAL KNEES CLINICAL INDICATION: Primary osteoarthritis of bilateral knees AP, lateral, tunnel, and patellar plain films of the left and right knees were performed. COMPARISON: None FINDINGS: No fracture or dislocation of the left knee is identified. Mild degenerative spurring of the undersurface of the patella and tibial spines is noted. No joint effusion is seen on the lateral view. Soft tissues are unremarkable. No fracture or dislocation of the right knee is identified. Mild degenerative spurring of the undersurface of the patella and tibial spines is noted. There is no joint effusion on the lateral view. Soft tissues are unremarkable. IMPRESSION: No fracture or dislocation of the left knee or right knee is identified. Mild degenerative changes of the bilateral knees. Report Dictated on Workstation: [id number] Final Dictating Physician: MD FOSS JONATHAN R Signed Date and Time: 09/07/2018 2:12 am Signed by: MD FOSS JONATHAN R Transcribed Date and Time: 09/07/2018 2:13 [facility] CR Hip w/ Pelvis 2 or 3 View s Lefton 09-06-2018 CR Hip w/ Pelvis 2 or 3 Views Left Patient Name: CANDI AGUILAR Diagnostic Radiology Exam Date/Time 09/06/2018 11:56:00 EDT Exam CR Hip w/ Pelvis 2 or 3 Views Left n Ordering Physician DO TATUM EUGENE F. Accession Number [id number] CPT4 Codes 81274 () Reason For Exam left hip pain Report LEFT HIP and PELVIS: INDICATION: Left hip pain COMPARISON: None. A frontal view of the pelvis and frontal and frog leg views of the left hip were obtained. The bone density appears normal. There are no fractures or dislocations. The joint space is within normal limits. There are no significant soft tissue abnormalities. IMPRESSION: Negative examination of the hip. Report Dictated on Final Dictating Physician: DO JOHNS ALFRED Signed Date and Time: 09/06/2018 4:23 pm Signed by: DO JOHNS ALFRED Transcribed Date and Time: 09/06/2018 4:24 Normal [facility] Culture, urine Bacteria identified Cx Nom (U) Positive [facility] Work Phone: No Panel Information [facility] Vital Signs Date Time Vital Sign Value Performing Clinician Facility 08-06-2024 13:56-0400 Body height 152.[address] Claudia Anderson MD [facility] 08-06-2024 13:56-0400 Body mass index (BMI) [Ratio] 20.7 kg/m2 Dr. Claudia Anderson MD [facility] 08-06-2024 13:56-0400 Body temperature 97.3 [degF] Dr. Claudia Anderson MD [facility] 08-06-2024 13:56-0400 Body weight 48.[address] Claudia Anderson MD [facility] 08-06-2024 13:56-0400 Diastolic blood pressure 76 mm[Hg] Dr. Claudia Anderson MD [facility] 08-06-2024 13:56-0400 Heart rate 60 /min Dr. Claudia Anderson MD [facility] 08-06-2024 13:56-0400 Respiratory rate 15 /min Dr. Claudia Anderson MD [facility] 08-06-2024 13:56-0400 SaO2% (BldA) [Mass fraction] 99 % Dr. Claudia Anderson MD [facility] 08-06-2024 13:56-0400 Systolic blood pressure 127 mm[Hg] Dr. Claudia Anderson MD [facility] 05-07-2024 14:19-0500 Body mass index (BMI) [Ratio] 21.4 kg/m2 Dr. Claudia Anderson MD [facility] 05-07-2024 14:19-0500 Body temperature 97.8 [degF] Dr. Claudia Anderson MD [facility] 05-07-2024 14:19-0500 Body weight 49.[address] Claudia Anderson MD [facility] 05-07-2024 14:19-0500 Diastolic blood pressure 68 mm[Hg] Dr. Claudia Anderson MD [facility] 05-07-2024 14:19-0500 Heart rate 70 /min Dr. Claudia Anderson MD [facility] 05-07-2024 14:19-0500 Respiratory rate 16 /min Dr. Claudia Anderson MD [facility] 05-07-2024 14:19-0500 SaO2% (BldA) [Mass fraction] 96 % Dr. Claudia Anderson MD [facility] 05-07-2024 14:19-0500 Systolic blood pressure 120 mm[Hg] Dr. Claudia Anderson MD [facility] 06-28-2023 15:43-0400 Body mass index (BMI) [Ratio] 21.1 kg/m2 [facility]-28-2023 15:43-0400 Body temperature 97.7 [degF] Dr. Claudia Anderson [facility] 06-28-2023 15:43-0400 Body weight 49.[address] Claudia Anderson [facility] 06-28-2023 15:43-0400 Diastolic blood pressure 74 mm[Hg] Dr. Claudia Anderson [facility] 06-28-2023 15:43-0400 Heart rate 63 /min Dr. Claudia Anderson [facility] 06-28-2023 15:43-0400 Respiratory rate 18 /[facility]-28-2023 15:43-0400 SaO2% (BldA) [Mass fraction] 98 % Dr. Claudia Anderson [facility] 06-28-2023 15:43-0400 Systolic blood pressure 120 mm[Hg] Dr. Claudia Anderson [facility] 06-09-2023 14:00-0400 Diastolic blood pressure 56 mm[Hg[facility] 06-09-2023 14:00-0400 Heart rate 56 /[facility] 06-09-2023 14:00-0400 Systolic blood pressure 137 mm[Hg] [facility] 06-09-2023 01:09-0400 Body temperature 97.6 [degF] Dr. Claudia Anderson [facility] 06-09-2023 01:09-0400 Respiratory rate 16 /[facility] 06-09-2023 01:09-0400 SaO2% (BldA) [Mass fraction] 98 % Dr. Taylor [facility] 06-08-2023 23:04-0400 Body height 152.[address] [facility] 06-08-2023 23:04-0400 Body mass index (BMI) [Ratio] 22.6 kg/m2 [facility] 06-08-2023 23:04-0400 Body weight 52.[address] [facility] 02-28-2023 14:54-0500 Body height 152.[address] Addi Tatum Work Phone: [facility] 02-28-2023 14:54-0500 Body mass index (BMI) [Ratio] 21.2 kg/m2 Dr. Addi Tatum Work Phone: [facility] 02-28-2023 14:54-0500 Body temperature 97.8 [degF] Dr. Addi Tatum Work Phone: [facility] 02-28-2023 14:54-0500 Body weight 49.[address] Addi Tatum Work Phone: [facility] 02-28-2023 14:54-0500 Diastolic blood pressure 90 mm[Hg] Dr. Addi Tatum Work Phone: [facility] 02-28-2023 14:54-0500 Heart rate 55 /min Dr. Addi Tatum Work Phone: [facility] 02-28-2023 14:54-0500 Respiratory rate 17 /min Dr. Addi Tatum Work Phone: [facility] 02-28-2023 14:54-0500 SaO2% (BldA) [Mass fraction] 97 % Dr. Addi Tatum Work Phone: [facility] 02-28-2023 14:54-0500 Systolic blood pressure 120 mm[Hg] Dr. Addi Tatum Work Phone: [facility] 12-15-2022 13:00-0400 Heart rate 78 /min Dr. Claudia Anderson [facility] 12-15-2022 13:00-0400 Respiratory rate 15 /[facility] 12-15-2022 13:00-0400 SaO2% (BldA) [Mass fraction] 93 % Dr. Claudia Anderson [facility] 12-15-2022 11:50-0400 Diastolic blood pressure 57 mm[Hg] [facility] 12-15-2022 11:50-0400 Systolic blood pressure 123 mm[Hg] [facility] 12-15-2022 09:39-0400 Body height 152.[address] [facility] 12-15-2022 09:39-0400 Body mass index (BMI) [Ratio] 22.7 kg/m2 [facility] 12-15-2022 09:39-0400 Body temperature 98.8 [degF] Dr. Claudia Anderson [facility] 12-15-2022 09:39-0400 Body weight 52.[address] Claudia Anderson [facility] 12-02-2022 11:02-0400 Body height 152.[address] [facility] 12-02-2022 11:02-0400 Body mass index (BMI) [Ratio] 21.4 kg/m2 [facility] 12-02-2022 11:02-0400 Body weight 49.[address] Claudia Anderson [facility] 11-17-2022 11:47-0400 Body height 152.[address] Claudia Anderson [facility] 11-17-2022 11:47-0400 Body mass index (BMI) [Ratio] 21.9 kg/m2 Dr. Claudia Anderson [facility] 11-17-2022 11:47-0400 Body temperature 97.8 [degF] Dr. Claudia Anderson [facility] 11-17-2022 11:47-0400 Body weight 50.[address] [facility] 11-17-2022 11:47-0400 Diastolic blood pressure 90 mm[Hg] Dr. Claudia Anderson [facility] 11-17-2022 11:47-0400 Heart rate 65 /[facility] 11-17-2022 11:47-0400 Respiratory rate 16 /[facility] 11-17-2022 11:47-0400 SaO2% (BldA) [Mass fraction] 95 % [facility] 11-17-2022 11:47-0400 Systolic blood pressure 130 mm[Hg] [facility] 11-09-2022 08:36-0400 Body mass index (BMI) [Ratio] 21.3 kg/m2 [facility] 11-09-2022 08:36-0400 Body temperature 97.8 [degF] Dr. Claudia Anderson [facility] 11-09-2022 08:36-0400 Body weight 49.[address] Claudia Anderson [facility] 11-09-2022 08:36-0400 Diastolic blood pressure 82 mm[Hg] [facility] 11-09-2022 08:36-0400 Heart rate 73 /[facility] 11-09-2022 08:36-0400 Respiratory rate 16 /[facility] 11-09-2022 08:36-0400 SaO2% (BldA) [Mass fraction] 96 % Dr. Claudia Anderson [facility] 11-09-2022 08:36-0400 Systolic blood pressure 106 mm[Hg] Dr. Claudia Anderson [facility] 09-14-2022 14:35-0400 Body temperature 96.9 [degF] Dr. Medardo Mayo Work Phone: 5(102)834-041899 [place] [address] 09-14-2022 14:35-0400 Diastolic blood pressure 61 mm[Hg] Dr. Medardo Mayo Work Phone: 5(450)598-375699 [place] [address] 09-14-2022 14:35-0400 Heart rate 60 /min Dr. Medardo Mayo Work Phone: 5(370)749-754499 [place] [address] 09-14-2022 14:35-0400 Respiratory rate 16 /min Dr. Medardo Mayo Work Phone: 0(067)697-093099 [place] [address] 09-14-2022 14:35-0400 SaO2% (BldA) [Mass fraction] 100 % Dr. Medardo aMyo Work Phone: 1(599)050-976699 [place] [address] 09-14-2022 14:35-0400 Systolic blood pressure 142 mm[Hg] Dr. Medardo Mayo Work Phone: 1(132)168-995399 [place] [address] 09-14-2022 10:13-0400 Body height 152.[address] Medardo Mayo Work Phone: 6(185)813-670799 [place] [address] 09-14-2022 10:13-0400 Body mass index (BMI) [Ratio] 21.4 kg/m2 Dr. Medardo Mayo Work Phone: 9(919)378-800999 [place] [address] 09-14-2022 10:13-0400 Body weight 49.[address] Medardo Mayo Work Phone: 6(484)523-586299 [place] [address] 09-06-2022 08:52-0400 Body mass index (BMI) [Ratio] 21.4 kg/m2 Dr. Medardo Mayo Work Phone: 2(238)233-520099 [place] [address] 09-06-2022 08:52-0400 Body temperature 96.8 [degF] Dr. Medardo Mayo Work Phone: 2(040)112-548499 [place] [address] 09-06-2022 08:52-0400 Body weight 49.[address] Medardo Mayo Work Phone: 7(328)867-047999 [place] [address] 09-06-2022 08:52-0400 Diastolic blood pressure 64 mm[Hg] Dr. Medardo Mayo Work Phone: 7(852)946-222299 [place] [address] 09-06-2022 08:52-0400 Heart rate 71 /min Dr. Medardo Mayo Work Phone: 1(439)473-606099 [place] [address] 09-06-2022 08:52-0400 Respiratory rate 16 /min Dr. Medardo Mayo Work Phone: 7(606)276-525199 [place] [address] 09-06-2022 08:52-0400 SaO2% (BldA) [Mass fraction] 98 % Dr. Medardo Mayo Work Phone: 0(044)670-435299 [place] [address] 09-06-2022 08:52-0400 Systolic blood pressure 96 mm[Hg] Dr. Medardo Mayo Work Phone: 7(671)573-909999 [place] [address] 08-27-2022 21:47-0400 Body height 152.[address] Medardo Mayo Work Phone: 4(263)805-386199 [place] [address] 08-27-2022 21:47-0400 Body mass index (BMI) [Ratio] 22 kg/m2 Dr. Medardo Mayo Work Phone: 2(576)926-284099 [place] [address] 08-27-2022 21:47-0400 Body temperature 97.1 [degF] Dr. Medardo Mayo Work Phone: 7(845)081-517799 [place] [address] 08-27-2022 21:47-0400 Body weight 51.[address] Medardo Mayo Work Phone: 4(849)763-903199 [place] [address] 08-27-2022 21:47-0400 Diastolic blood pressure 57 mm[Hg] Dr. Medardo Mayo Work Phone: 9(395)264-756899 [place] [address] 08-27-2022 21:47-0400 Heart rate 58 /min Dr. Medardo Mayo Work Phone: [facility] 08-27-2022 21:47-0400 Respiratory rate 18 /min Dr. Medardo Mayo Work Phone: [facility] 08-27-2022 21:47-0400 SaO2% (BldA) [Mass fraction] 99 % Dr. Medardo Mayo Work Phone: [facility] 08-27-2022 21:47-0400 Systolic blood pressure 124 mm[Hg] Dr. Medardo Mayo Work Phone: [facility] 07-01-2022 09:58-0400 Body height 152.[address] [facility] 07-01-2022 09:58-0400 Body mass index (BMI) [Ratio] 19.8 kg/m2 [facility] 07-01-2022 09:58-0400 Body temperature 97.8 [degF] [facility] 07-01-2022 09:58-0400 Body weight 45.[address] Taylor [facility] 07-01-2022 09:58-0400 Diastolic blood pressure 80 mm[Hg] [facility] 07-01-2022 09:58-0400 Heart rate 71 /min [facility] 07-01-2022 09:58-0400 Respiratory rate 16 /[facility] 07-01-2022 09:58-0400 SaO2% (BldA) [Mass fraction] 99 % Dr. Taylor [facility] 07-01-2022 09:58-0400 Systolic blood pressure 118 mm[Hg] [facility] 04-16-2022 03:26-0500 SaO2% (BldA) [Mass fraction] 97 % [facility] 04-15-2022 21:44-0500 Body height 152.4 cm [facility] 04-15-2022 21:44-0500 Body mass index (BMI) [Ratio] 20.7 kg/m2 [facility] 04-15-2022 21:44-0500 Body temperature 97.5 [degF] [facility] 04-15-2022 21:44-0500 Body weight 48.2 kg [facility] 04-15-2022 21:44-0500 Diastolic blood pressure 68 mm[Hg] [facility] 04-15-2022 21:44-0500 Heart rate 63 /min [facility] 04-15-2022 21:44-0500 Respiratory rate 18 /min [facility] 04-15-2022 21:44-0500 Systolic blood pressure 145 mm[Hg] [facility] 02-14-2022 01:29-0500 Heart rate 53 /min [facility] 02-14-2022 01:29-0500 Respiratory rate 22 /min [facility] 02-14-2022 00:14-0500 SaO2% (BldA) [Mass fraction] 97 % [facility] 02-13-2022 22:11-0500 Body height 152.4 cm [facility] Work Phone: 02-13-2022 22:11-0500 Body mass index (BMI) [Ratio] 20.2 kg/m2 [facility] 02-13-2022 22:11-0500 Body temperature 97.6 [degF] [facility] 02-13-2022 22:11-0500 Body weight 47.1 kg [facility] 02-13-2022 22:11-0500 Diastolic blood pressure 64 mm[Hg] [facility] 02-13-2022 22:11-0500 Systolic blood pressure 149 mm[Hg] [facility] 02-01-2022 01:37-0500 Diastolic blood pressure 70 mm[Hg] [facility] 02-01-2022 01:37-0500 Heart rate 58 /min [facility] 02-01-2022 01:37-0500 Respiratory rate 16 /min [facility] 02-01-2022 01:37-0500 SaO2% (BldA) [Mass fraction] 98 % [facility] 02-01-2022 01:37-0500 Systolic blood pressure 134 mm[Hg] [facility] 01-31-2022 23:38-0500 Body height 152.4 cm [facility] Work Phone: 01-31-2022 23:38-0500 Body mass index (BMI) [Ratio] 20.6 kg/m2 [facility] 01-31-2022 23:38-0500 Body temperature 97.5 [degF] [facility] 01-31-2022 23:38-0500 Body weight 47.85 kg [facility] 01-18-2022 21:11-0400 Body temperature 97.8 [degF] [facility] 01-18-2022 21:11-0400 Diastolic blood pressure 78 mm[Hg] [facility] 01-18-2022 21:11-0400 Heart rate 78 /min [facility] 01-18-2022 21:11-0400 Respiratory rate 16 /min [facility] 01-18-2022 21:11-0400 SaO2% (BldA) [Mass fraction] 99 % [facility] 01-18-2022 21:11-0400 Systolic blood pressure 118 mm[Hg] [facility] 01-18-2022 19:14-0400 Body height 152.4 cm [facility] Work Phone: 01-18-2022 19:14-0400 Body mass index (BMI) [Ratio] 21.3 kg/m2 [facility] 01-18-2022 19:14-0400 Body weight 49.6 kg [facility] 11-22-2021 00:21-0400 Diastolic blood pressure 52 mm[Hg] [facility] Work Phone: 11-22-2021 00:21-0400 Heart rate 53 /min [facility] Work Phone: 11-22-2021 00:21-0400 Respiratory rate 16 /min [facility] Work Phone: 11-22-2021 00:21-0400 SaO2% (BldA) [Mass fraction] 97 % [facility] Work Phone: 11-22-2021 00:21-0400 Systolic blood pressure 104 mm[Hg] [facility] Work Phone: 11-21-2021 22:29-0400 Body height 152.4 cm [facility] Work Phone: 11-21-2021 22:29-0400 Body mass index (BMI) [Ratio] 22.1 kg/m2 [facility] Work Phone: 11-21-2021 22:29-0400 Body temperature 97 [degF] [facility] Work Phone: 11-21-2021 22:29-0400 Body weight 51.3 kg [facility] Work Phone: 10-10-2021 06:36-0400 Diastolic blood pressure 60 mm[Hg] [facility] Work Phone: 10-10-2021 06:36-0400 Heart rate 68 /min [facility] Work Phone: 10-10-2021 06:36-0400 Respiratory rate 16 /min [facility] Work Phone: 10-10-2021 06:36-0400 SaO2% (BldA) [Mass fraction] 98 % [facility] Work Phone: 10-10-2021 06:36-0400 Systolic blood pressure 98 mm[Hg] [facility] Work Phone: 10-10-2021 01:04-0400 Body height 162.56 cm [facility] Work Phone: 10-10-2021 01:04-0400 Body mass index (BMI) [Ratio] 19 kg/m2 [facility] Work Phone: 10-10-2021 01:04-0400 Body temperature 97.2 [degF] [facility] Work Phone: 10-10-2021 01:04-0400 Body weight 50.2 kg [facility] Work Phone: 10-07-2021 23:16-0400 Diastolic blood pressure 71 mm[Hg] [facility] Work Phone: 10-07-2021 23:16-0400 Heart rate 78 /min [facility] Work Phone: 10-07-2021 23:16-0400 Respiratory rate 16 /min [facility] Work Phone: 10-07-2021 23:16-0400 SaO2% (BldA) [Mass fraction] 98 % [facility] Work Phone: 10-07-2021 23:16-0400 Systolic blood pressure 124 mm[Hg] [facility] Work Phone: 10-07-2021 18:47-0400 Body height 152.4 cm [facility] Work Phone: 10-07-2021 18:47-0400 Body mass index (BMI) [Ratio] 21.2 kg/m2 [facility] Work Phone: 10-07-2021 18:47-0400 Body temperature 98.3 [degF] [facility] Work Phone: 10-07-2021 18:47-0400 Body weight 49.2 kg [facility] Work Phone: NEGATED: Highlighted [id number] 13:06-0400 BMI (Body Mass Index) 19.4 kg/m2 Hina Esparza LPN [facility] Work Phone: NEGATED: Highlighted [id number] 13:06-0400 Body weight 44.91 kg Hina Esparza LPN [facility] Work Phone: NEGATED: Highlighted [id number] 13:06-0400 Body weight 45 kg Hina Esparza LPN [facility] Work Phone: NEGATED: Highlighted [id number] 13:06-0400 BP Diastolic 76 mm[Hg] Hina Esparza LPN [facility] Work Phone: NEGATED: Highlighted [id number] 13:06-0400 BP Systolic 146 mm[Hg] Hina Esparza LPN [facility] Work Phone: NEGATED: Highlighted [id number] 13:06-0400 BP Systolic 129 mm[Hg] Hina Esparza LPN [facility] Work Phone: NEGATED: Highlighted [id number] 13:06-0400 Height 152.4 cm Hina Esparza LPN [facility] Work Phone: NEGATED: Highlighted [id number] 13:06-0400 Height 152 cm Hina Esparza LPN [facility] Work Phone: NEGATED: Highlighted [id number] 13:06-0400 Pulse (Heart Rate) 60 /min Hina Esparza LPN [facility] Work Phone: Encounters Encounter Date Encounter Type Care Provider Facility Start: 08-22-2024 ambulatory Claudiasimran Anderson Facility:[facility] Start: 08-15-2024 ambulatory Claudiasimran Anderson Facility:[facility] Start: 08-06-2024 End: 08-06-[address] Medardo Mayo MD -[facility] Work Phone: Start: 08-06-2024 End: 08-06-[address] Claudia Anderson MD [facility] Work Phone: Start: 08-06-2024 End: 08-06-[address] Claudia Anderson MD [facility] Work Phone: Start: 08-06-2024 End: 08-06-[address] Kendra Bran MD -Radiology [facility] Work Phone: Start: 08-06-2024 End: 08-06-2024 ambulatory Claudia Gudla Facility:[facility] Start: 07-12-[address] True Holguin MD -[facility] Start: 07-12-2024 End: 07-12-2024 ambulatory Claudia Gudla Facility:[facility] Start: 06-25-2024 ambulatory Claudia Gudla Facility:[facility] Start: 06-25-[address] Claudia Anderson MD -[facility] Start: 05-07-2024 End: 05-07-[address] Medardo Mayo MD -[facility] Work Phone: Start: 05-07-2024 End: 05-07-2024 ambulatory Claudia Gudla Facility:[facility] Start: 04-13-2024 ambulatory Claudia Gudla OLS Facili ty:[facility] Start: 04-13-[address] Claudia Anderson MD -[facility] Start: 02-17-2024 ambulatory Claudia Gudla OLS Facili ty:[facility] Start: 01-25-2024 End: 01-25-2024 ambulatory Medardo Mayo Facility:[facility] Start: 01-17-2024 End: 01-17-2024 ambulatory Claudia Gudla OLS Facility:[facility] Start: 01-12-2024 End: 01-12-2024 ambulatory Claudia Gudla OLS Facility:[facility] Start: 01-04-2024 End: 01-04-2024 ambulatory True Rader Facility:[facility] Start: 12-12-2023 End: 12-12-2023 ambulatory Claudia Gudla OLS Facility:[facility] Start: 11-17-2023 End: 11-17-2023 [place]ulatory [place] [place]: 11-08-2023 End: 11-08-2023 ambulatory Claudia Gudla Facility:[facility] Start: 11-03-2023 End: 11-03-2023 [facility] [place]: 11-03-2023 End: 11-03-2023 ambulatory [facility] Facility:[facility] Start: 10-12-2023 End: 10-12-2023 ambulatory [facility] Facility:[facility] Start: 07-18-[address] Claudia Anderson [facility] Start: 07-13-[address] [facility] Start: 07-11-2023 End: 07-11-[address] Claudia Anderson [facility] Work Phone: Start: 06-28-2023 End: 06-28-[address] [facility] [facility] Work Phone: Start: 06-14-2023 End: 06-14-[address] [facility] Start: 06-14-2023 End: 06-14-[address] [facility] Work Phone: Start: 06-13-2023 End: 06-13-[address] [facility] Work [facility] Start: 06-13-2023 End: 06-13-[address] Claudia Anderson [facility] Start: 06-13-[address] [facility] Start: 06-08-2023 End: 06-09-2023 Emergency department [facility] Work Phone: Start: 05-30-2023 End: 05-30-[address] [facility] Work [facility]: Start: 05-30-2023 End: 05-30-[address] Claudia Anderson [facility] Start: 05-30-[address] Claudia Anderson [facility] Start: 05-27-2023 End: 05-27-[address] Claudia Anderson [facility] Work Phone: Start: 04-13-2023 End: 04-13-[address] Claudia Anderson [facility] Start: 02-28-2023 End: 02-28-[address] Addi Tatum Work Phone: [facility] Work Phone: Start: 02-28-2023 End: 02-28-[address] Addi Tatum Work Phone: [facility] Work Phone: Start: 02-28-2023 End: 02-28-[address] Addi Tatum Work Phone: [facility] Work Phone: Start: 01-25-2023 End: 01-25-[address] Addi Tatum Work Phone: [facility] Work Phone: Start: 01-25-2023 End: 01-25-[address] Addi Tatum Work Phone: [facility] Start: 01-11-2023 End: 01-11-[address] 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 Claudia Anderson [facility] Work Phone: Start: 12-20-2022 End: 12-20-[address] [facility] Start: 12-20-[address] [facility]: 12-17-2022 End: 12-17-[address] [facility]: Start: 12-17-2022 End: 12-17-[address] [facility] Start: 12-15-2022 End: 12-15-2022 Emergency department patient visit Dr. Claudia Anderson [facility] Work Phone: Start: 12-02-2022 End: 12-02-[address] Claudia Anderson [facility] Work Phone: Start: 11-17-2022 End: 11-17-[address] [facility] Work Phone: Start: 11-17-2022 End: 11-17-[address] [facility] Work [facility]: Start: 11-17-2022 End: 11-17-[address] Claudia Anderson [facility] Work Phone: Start: 11-17-2022 End: 11-17-[address] Claudia Anderson [facility] Work Phone: Start: 11-17-2022 End: 11-17-[address] Claudia Anderson [facility] Start: 11-17-[address] [facility] Start: 11-09-2022 End: 11-09-[address] Claudia Anderson [facility] Work Phone: Start: 10-11-2022 End: 10-11-[address] Cluadia Anderson [facility] Work Phone: Start: 09-29-2022 End: 09-29-[address] Claudia Anderson [facility] Start: 09-29-[address] [facility] Start: 09-28-2022 End: 09-28-[address] Claudia Anderson [facility] Work Phone: Start: 09-22-2022 End: 09-22-[address] Claudia Anderson [facility] Work Phone: Start: 09-22-2022 End: 09-22-[address] Claudia Anderson [facility] Start: 09-22-[address] [facility] Start: 09-15-2022 End: 09-15-[address] [facility]: Start: 09-15-2022 End: 09-15-[address] Claudia Anderson [facility] Start: 09-15-[address] Claudia Anderson [facility] Start: 09-14-2022 Non-patient / Non-visit Dr. Claudia rivera [facility] Start: 09-14-2022 Dr. Medardo roth Work Phone: [facility] Start: 09-14-2022 End: 09-14-2022 Admission to same day surgery center [facility] Start: 09-14-2022 End: 09-14-[address] Medardo Mayo Work Phone: [facility] Work Phone: Start: 09-14-2022 End: 09-14-2022 Dr. Medardo Mayo [facility] Phone: [facility] Start: 09-08-2022 End: 09-08-[address] [facility] Work Phone: Start: 09-08-2022 End: 09-08-[address] [facility]: 09-08-[address] [facility] Start: 09-08-2022 Dr. Medardo roth Work Phone: [facility] Start: 09-06-2022 End: 09-06-[address] Claudia Anderson [facility] Work Phone: Start: 09-06-2022 End: 09-06-2022 Dr. Medardo Mayo Work Phone: [facility] Start: 09-01-2022 End: 09-01-[address] Medardo Mayo Work Phone: [facility] Work Phone: Start: 09-01-2022 End: 09-01-[address] Claudia Anderson [facility] Start: 09-01-2022 End: 09-01-2022 Dr. Medardo Mayo Work Phone: [facility] Start: 08-27-2022 End: 08-28-2022 Emergency department patient visit Dr. Claudia Anderson [facility] Work Phone: Start: 08-27-2022 End: 08-28-2022 Dr. Medardo Mayo Work Phone: [facility] Start: 08-25-2022 End: 08-25-[address] Taylor [facility] Work Phone: Start: 08-25-2022 End: 08-25-[address] Claudia Anderson [facility] Start: 08-25-2022 Dr. Medardo roth Work Phone: [facility] Start: 08-18-2022 End: 08-18-[address] Medardo Mayo Work Phone: [facility] Work Phone: Start: 08-18-2022 End: 08-18-[address] Claudia Anderson [facility] Start: 08-18-2022 End: 08-18-2022 Dr. Medardo Mayo Work Phone: [facility] Start: 08-11-2022 End: 08-11-[address] Medardo Mayo Work Phone: [facility] Work Phone: Start: 08-11-2022 End: 08-11-[address] Claudia Anderson [facility] Start: 08-11-2022 End: 08-11-2022 Dr. Medardo Mayo Work Phone: [facility] Start: 08-10-2022 End: 08-10-[address] Claudia Anderson [facility] Start: 08-10-2022 End: 08-10-2022 Dr. Medardo Mayo Work Phone: [facility] Start: 08-04-2022 End: 08-04-[address] [facility] Start: 08-04-2022 End: 08-04-[address] Claudia Anderson [facility] Start: 08-04-2022 End: 08-04-2022 Dr. Medardo Mayo Work Phone: [facility] Start: 07-28-2022 End: 07-28-[address] Claudia Anderson [facility] Start: 07-28-2022 End: 07-28-2022 Dr. Medardo Mayo Work Phone: [facility] Start: 07-21-2022 End: 07-21-[address] Claudia Anderson [facility] Start: 07-21-[address] Claudia Anderson [facility] Start: 07-21-2022 End: 07-21-2022 Dr. Medardo Mayo Work Phone: [facility] Start: 07-14-2022 End: 07-14-[address] Medardo Mayo Work Phone: [facility] Work Phone: Start: 07-14-2022 End: 07-14-[address] Medardo Mayo Work Phone: [facility] Start: 07-14-[address] Claudia Anderson [facility] Start: 07-14-2022 End: 07-14-2022 Dr. Medardo Mayo Work Phone: [facility] Start: 07-07-2022 End: 07-07-[address] [facility] Work [facility]: Start: 07-07-2022 End: 07-07-[address] [facility] Start: 07-07-2022 End: 07-07-2022 Dr. Medardo Mayo Work Phone: [facility] Start: 07-01-2022 End: 07-01-[address] Claudia Anderson [facility] Start: 07-01-2022 End: 07-01-2022 Dr. Medardo Mayo Work Phone: [facility] Start: 06-30-2022 End: 06-30-[address] Claudia Anderson [facility] Start: 06-30-2022 Registered Referred [facility] Start: 06-30-2022 End: 06-30-2022 Dr. Medardo Mayo Work Phone: [facility] Start: 06-16-2022 End: 06-16-2022 ambulatory [facility] Work Phone: Start: 06-16-2022 End: 06-16-2022 Departed Referred [facility] Start: 06-16-2022 Registered Referred [facility] Start: 06-16-2022 End: 06-16-2022 Dr. Medardo Mayo Work Phone: [facility] Start: 06-09-2022 End: 06-09-2022 ambulatory [facility] Work Phone: Start: 06-09-2022 End: 06-09-2022 Departed Referred [facility] Start: 06-09-2022 Registered Referred [facility] Start: 06-09-2022 End: 06-09-2022 Dr. Medardo Mayo Work Phone: [facility] Start: 06-04-2022 End: 06-04-2022 Departed Referred [facility] Start: 06-04-2022 Registered Referred [facility] Start: 06-04-2022 End: 06-04-2022 Dr. Medardo Mayo Work Phone: [facility] Start: 06-02-2022 End: 06-02-2022 Departed Referred [facility] Start: 06-02-2022 Registered Referred [facility] Start: 06-02-2022 End: 06-02-2022 Dr. Medardo Mayo Work Phone: [facility] Start: 05-31-2022 End: 05-31-2022 ambulatory [facility] Work Phone: Start: 05-31-2022 End: 05-31-2022 Departed Referred [facility] Start: 05-31-2022 Registered Referred [facility] Start: 05-31-2022 End: 05-31-2022 Dr. Medardo Mayo Work Phone: [facility] Start: 05-26-2022 End: 05-26-2022 ambulatory [facility] Work Phone: Start: 05-26-2022 End: 05-26-2022 Departed Referred [facility] Start: 05-26-2022 Registered Referred [facility] Start: 05-26-2022 End: 05-26-2022 Dr. Medardo Mayo Work Phone: [facility] Start: 05-19-2022 End: 05-19-2022 Departed Referred [facility] Start: 05-19-2022 Registered Referred [facility] Start: 05-19-2022 End: 05-19-2022 Dr. Medardo Mayo Work Phone: [facility] Start: 05-12-2022 End: 05-12-2022 ambulatory [facility] Work Phone: Start: 05-12-2022 End: 05-12-2022 Departed Referred [facility] Start: 05-12-2022 Registered Referred [facility] Start: 05-12-2022 End: 05-12-2022 Dr. Medardo Mayo Work Phone: [facility] Start: 05-11-2022 End: 05-11-2022 ambulatory [facility] Work Phone: Start: 05-11-2022 End: 05-11-2022 Departed Referred [facility] Start: 05-11-2022 Registered Referred [facility] Start: 05-11-2022 End: 05-11-2022 Dr. Medardo Mayo Work Phone: [facility] Start: 05-05-2022 End: 05-05-2022 ambulatory [facility] Work Phone: Start: 05-05-2022 End: 05-05-2022 Departed Referred [facility] Start: 05-05-2022 Registered Referred [facility] Start: 04-19-2022 End: 04-19-2022 ambulatory [facility] Work Phone: Start: 04-19-2022 End: 04-19-2022 Departed Referred [facility] Start: 04-19-2022 Registered Referred [facility] Start: 04-15-2022 End: 04-16-2022 Emergency department patient visit [facility] Start: 03-30-2022 End: 03-30-2022 ambulatory [facility] Work Phone: Start: 03-30-2022 End: 03-30-2022 Departed Referred [facility] Start: 03-30-2022 Registered Referred [facility] Start: 03-29-2022 End: 03-29-2022 ambulatory [facility] Work Phone: Start: 03-29-2022 End: 03-29-2022 Departed Referred [facility] Start: 03-29-2022 Registered Referred [facility] Start: 03-11-2022 Registered Referred [facility] Start: 03-05-2022 Registered Referred [facility] Start: 02-16-2022 Registered Referred [facility] Start: 02-13-2022 End: 02-14-2022 Emergency department patient visit [facility] Start: 02-08-2022 End: 02-08-2022 ambulatory [facility] Work Phone: Start: 02-08-2022 End: 02-08-2022 Departed Referred [facility] Start: 01-31-2022 End: 02-01-2022 Emergency department patient visit [facility] Start: 01-18-2022 End: 01-18-2022 Emergency department patient visit [facility] Start: 12-29-2021 End: 12-29-2021 ambulatory [facility] Work Phone: Start: 12-29-2021 End: 12-29-2021 Departed Referred [place] [id number] Start: 12-29-2021 Registered Referred [place] [id number] Start: 12-23-2021 End: 12-23-2021 Departed Referred [place] [id number] Start: 12-23-2021 Registered Referred [place] [id number] Start: 12-16-2021 Registered Referred [place] [id number] Start: 12-09-2021 Registered Referred [place] [id number] Start: 12-02-2021 End: 12-02-2021 ambulatory [facility] Work Phone: Start: 12-02-2021 End: 12-02-2021 Departed Referred [facility] Start: 12-02-2021 Registered Referred [facility] Start: 11-25-2021 End: 11-25-2021 ambulatory [facility] Work Phone: Start: 11-25-2021 End: 11-25-2021 Departed Referred [facility] Start: 11-25-2021 Registered Referred [facility] Start: 11-21-2021 End: 11-22-2021 Emergency department patient visit [facility] Start: 11-18-2021 End: 11-18-2021 ambulatory [facility] Work Phone: Start: 11-18-2021 End: 11-18-2021 Departed Referred [facility] Start: 11-18-2021 Registered Referred [facility] Start: 11-11-2021 End: 11-11-2021 Departed Referred [facility] Start: 11-11-2021 Registered Referred [facility] Start: 11-04-2021 End: 11-04-2021 ambulatory [facility] Work Phone: Start: 11-04-2021 End: 11-04-2021 Departed Referred [place] [id number] Start: 11-04-2021 Registered Referred [place] [id number] Start: 10-28-2021 End: 10-28-2021 ambulatory [facility] Work Phone: Start: 10-28-2021 End: 10-28-2021 Departed Referred [place] [id number] Start: 10-21-2021 Registered Referred [place] [id number] Start: 10-19-2021 Registered Referred [place] [id number] Start: 10-14-2021 End: 10-14-2021 Departed Referred [place] [id number] Start: 10-10-2021 End: 10-10-2021 Emergency department patient visit [facility] Start: 10-07-2021 End: 10-08-2021 Emergency department patient visit [facility] Start: 10-05-2021 End: 10-05-2021 Departed Referred [facility] Start: 10-05-2021 Registered Referred [facility] Start: 07-29-2021 End: 07-29-2021 Departed Referred [facility] Start: 04-20-2021 Registered Referred [facility] Start: 10-24-2018 End: 10-24-2018 Patient encounter procedure Jeramie Moreau MD Work Phone: [facility] Work Phone: Procedures Date Procedure Procedure Detail Performing Clinician Start: 08-06-2024 X-ray of lumbar spin e, two or three views Dr. Claudia Anderson MD Start: 06-25-2024 Vitamin D, 25-hydrox y measurement Dr. Claudia Anderson MD Comment on above: Vitamin D StatusDefi ciency: <20 ng/mL (50nmol/L)Insufficiency: 20-30 ng/mL (50-75 nmol/L)Sufficiency: 30-100 ng/mL (75-250 nmol/L)Toxicity: >100 ng/mL (>250 nmol/L) Start: 04-13-[address] Claudia Anderson MD Start: 06-08-2023 Plain x-ray of pelvi s and lower extremity Dr. Claudia Anderson Start: 05-27-2023 Plain X-ray of shoulder Dr. Claudia Anderson Start: 05-27-2023 X-ray of lumbar spin e, two or three views Dr. Claudia Anderson Start: 02-28-2023 Plain X-ray of shoulder Dr. Addi Tatum Work Phone: Start: 12-29-2022 Post-cataract laser surgery Sabrina Welch MD Work Phone: Start: 12-29-2022 Computerized ophthal leidy imaging retina Sabrina Welch MD Work Phone: Start: 12-15-2022 SARS-CoV-2 & FLU Ant igen (Rapid) Dr. Claudia Anderson Start: 12-15-2022 Plain chest X-ray Dr. Laney Anderson Start: 12-15-2022 CT cervical spine wi thout contrast Dr. Claudia Anderson Start: 12-15-2022 CT of head without contrast Dr. Claudia Anderson Start: 12-15-2022 Radiography of thora cic spine Dr. Claudia Anderson Start: 12-02-2022 Radiography of thora cic spine Dr. Claudia Anderson Start: 12-02-2022 X-ray of lumbar spin e, two or three views Dr. Claudia Anderson Start: 11-17-2022 X-ray of unilateral ribs, two views without x-ray of chest Dr. Claudia Anderson Start: 09-14-[address] Ra yoselyn Mayo Work Phone: Start: 08-27-2022 Pelvis X-ray Dr. Markus Mayo Work Phone: Start: 08-27-2022 Plain X-ray of shoulder Dr. Medardo Mayo Work Phone: Start: 08-27-2022 CT cervical spine wi thout contrast Dr. Medardo Mayo Work Phone: Start: 08-27-2022 CT of head without contrast Dr. Medardo Mayo Work Phone: Start: 08-04-2022 MRI of cervical spine Ashok Mayo Work Phone: Start: 08-04-2022 MRI of lumbar spine Dr. Medardo Mayo Work Phone: Start: 04-15-2022 Plain chest X-ray Start: 04-15-2022 Computed tomography of thoracic spine without contrast Start: 04-15-2022 CT cervical spine wi thout contrast Start: 04-15-2022 CT of head without contrast Start: 04-15-2022 CT of lumbar spine Start: 02-13-2022 Plain x-ray of pelvi s and lower extremity Start: 02-13-2022 Plain x-ray of humerus Start: 02-13-2022 X-ray of radius and ulna Start: 02-13-2022 CT cervical spine wi thout contrast Start: 02-13-2022 CT of head without contrast Start: 02-01-2022 CT cervical spine wi thout contrast Start: 02-01-2022 CT of head without contrast Start: 02-01-2022 Pelvis X-ray Start: 02-01-2022 End: 02-01-2022 Plain X-ray of shoulder Start: 02-01-2022 X-ray of lumbar spin e, two or three views Start: 11-21-2021 X-ray of lumbosacral spine Start: 11-21-2021 CT cervical spine wi thout contrast Start: 11-21-2021 CT of head without contrast Start: 11-21-2021 Pelvis X-ray Start: 10-10-2021 Radiography of thora cic spine Start: 10-10-2021 CT cervical spine wi thout contrast Start: 10-10-2021 CT of head without contrast Start: 10-10-2021 Plain x-ray of pelvi s and lower extremity Start: 10-07-2021 Plain chest X-ray Start: 10-07-2021 Plain x-ray of pelvi s and lower extremity Start: 10-07-2021 CT cervical spine wi thout contrast Start: 10-07-2021 CT of head without contrast Start: 10-24-2018 End: 10-24-2018 BMI documented within normal parameters - no follow-up plan is required Jeramie Moreau MD Work Phone: Start: 10-24-2018 End: 10-24-2018 Documentation of current medications Jeramie Moreau MD Work Phone: Start: 10-24-2018 End: 10-24-2018 Pain assessment documented as positive - follow-up documented Jeramie Moreau MD Work Phone: Start: 10-24-2018 End: 10-24-2018 Radiologic examination pelvis 1/2 views Jeramie Moreau MD Work Phone: Start: 10-24-2018 End: 10-24-2018 Tobacco non-user Jeramie Moreau MD Work Phone: Cytopathology proced ure, preparation of smear, genital source Cytopathology proced ure, preparation of smear, genital source Investigation of transfusion reaction Investigation of transfusion reaction Urine culture Urine culture Urine culture NEGATED: Highlighted rowStart: 10-24-2018 End: 10-24-2018 Documentation of current medications Hina Esparza LPN Plan of Treatment Date Care Activity Detail Author Start: 08-06-2024 X-ray of lumbar spine, two or three views Lumbar Spine 2 or 3 Views [facility] Start: 08-06-2024 XR Lumbar spine 2 or 3 Views [facility] Start: 05-07-2024 Patient referral [facility] Work Phone: Start: 06-28-2023 Patient referral [facility] Work Phone: Start: 06-08-2023 [facility] Start: 11-19-2022 Covid-19 Vaccine ( season) Covid-19 Vaccine ( season) [facility] Start: 11-19-2022 Influenza vaccination Influenza Vaccine (#1) [facility] Start: 11-09-2022 Patient referral [facility] Work Phone: Start: 09-14-2022 Anesthesia anorectal procedure ANESTH ANORECTAL SURGERY [facility] Start: 09-14-2022 Hemorrhoidectomy int & xtrnl 2/> column/jerry REMOVE IN/EX HEM GROUPS 2+ [facility] Start: 09-14-2022 Patient discharge [facility] Start: 04-15-2022 [facility] Start: 03-21-2022 Advance Directive Discussion Advance Directive Discussion [facility] Start: 03-21-2022 Depression Assessment Depression Assessment [facility] Start: 10-19-2021 Lamotrigine measurement [facility] Work Phone: Start: 10-19-2021 Thyroid stimulating hormone measurement [facility] Work Phone: Start: 10-19-2021 Vitamin B12 measurement [facility] Work Phone: Start: 10-07-2021 Lamotrigine measurement [facility] Work Phone: Start: 10-24-2018 End: 10-24-2018 Appointment Appointment [facility] Work Phone: Start: 08-29-2016 Bone Density Screening Bone Density Screening [facility] Start: 08-29-2016 Pneumococcal Vaccine: 65+ (1 - PCV) Pneumococcal Vaccine: 65+ (1 - PCV) [facility] Start: 08-29-2001 Shingrix Vaccine (1 of 2) Shingrix Vaccine (1 of 2) [facility] Start: 08-29-1996 Cologuard (FIT-DNA) Cologuard (FIT-DNA) [facility] Start: 08-29-1996 Colonoscopy Colonoscopy [facility] Start: 08-29-1996 Colorectal Cancer Screening Colorectal Cancer Screening [facility] Start: 08-29-[address] COLONOGRAPHY [facility] Start: 08-29-1996 Diabetes Screening Diabetes Screening [facility] Start: 08-29-1996 Fecal Occult Blood Fecal Occult Blood [facility] Start: 08-29-1996 Lipid 1996 panel - Serum or Plasma Lipid Screening [facility] Start: 08-29-1996 SIGMOIDOSCOPY SIGMOIDOSCOPY [facility] Start: 1991 Mammography Mammogram Screening [facility] Start: 08-29-1970 Urine microalbumin profile DTaP,Tdap,Td Vaccine (1 - Tdap) [facility] Start: 08-29-1969 Hepatitis C Screening Hepatitis C Screening [facility] Bacteria identified in Urine by Culture Urine Culture [facility] Blood ammonia measurement [facility] Blood ammonia measurement [facility] Blood ammonia measurement [facility] Folate [Mass/volume] in Serum or Plasma [facility] Folate [Mass/volume] in Serum or Plasma [facility] Lamotrigine measurement [facility] Work Phone: MR Brain contrast [facility] MR Brain contrast [facility] MR Cervical spine [facility] MR Lumbar spine [facility] Patient Education [facility] Work Phone: Patient referral [facility] Work Phone: PHENobarbital [Mass/volume] in Serum or Plasma [facility] Primidone measurement [facility] Thiamine measurement [facility] Immunizations Immunization Date Immunization Notes Care Provider Mustapha thomas 06-08-2023 tetanus toxoid, redu chandu diphtheria toxoid, and acellular pertussis vaccine, adsorbed Dr. Claudia Anderson [facility] Payers Date Payer Category Payer Medicare [id number] 2023 Unknown [id number] 2023 Unknown 2023 Self-pay [id number] 2020 Medicaid [facility] MEDICAID MYC ARE [facility] MEDICAID [id number] 2020-Present [phone] [place] [id number] Medicaid [id number] 2020 Medicare UHC MEDICARE MYC ARE [facility] MEDICARE [id number] 2020-Present [phone] [address] [place] [address] Medicare [id number] 2020 Unknown [id number] Unknown [id number] [id number] Unknown [id number] 2.16.840.1.088722.3.579.2.462 Unknown [id number] 2.16.840.1.748310.3.579.2.462 Unknown [id number] 2.16.840.1.692951.3.579.2.462 Unknown [id number] 2.16.840.1.647020.3.579.2.462 Unknown [id number] 2.16.840.1.550806.3.579.2.462 Unknown [id number] 2.16.840.1.580355.3.579.2.462 Unknown [id number] 2.16.840.1.032268.3.579.2.462 Unknown [id number] 2.16.840.1.138852.3.579.2.462 Unknown [id number] 2.16.840.1.717200.3.579.2.462 Unknown [id number] 2.16.840.1.686220.3.579.2.462 Unknown [id number] 2.16.840.1.798608.3.579.2.462 Unknown [id number] 2.16.840.1.079400.3.579.2.462 Unknown [id number] 2.16.840.1.908864.3.579.2.462 Unknown [id number] 2.840.1.209371.3.579.2.462 Unknown [id number] 2.0.1.284013.3.579.2.462 Unknown [id number] 2.840.1.823746.3.579.2.462 Unknown [id number] 2.0.1.391827.3.579.2.462 Unknown [id number] 2.840.1.408845.3.579.2.462 Social History Date Type Detail Facility Start: 1950 Sex Assigned At Female [facility] Start: 10-07-2021 End: 02-28-2023 Tobacco smoking status NCIS Unknown if ever smoked [facility] Start: 09-10-2020 Tobacco smoking status NCIS Ex-smoker [facility] History of tobacco use Current smoker [facility] Start: 09-10-2020 Tobacco use and exposure Smokeless tobacco non-user [facility] Start: 12-29-2022 Alcohol intake Lifetime non-d josé (finding) [facility] Start: 12-16-2020 End: 03-17-2021 History of Social function [facility] Start: 12-16-2020 End: 03-17-2021 Tobacco use panel [facility] National Score (1-100), lower number is lower risk Not on file [facility] Start: 1950 Sex Assigned At Not on file [facility] Start: 06-28-2023 Tobacco smoking status NHIS Never smoked tobacco (finding) [facility] NEGATED: Highlighted rowStart: 10-24-2018 End: 10-24-2018 Assertion Former smoker [facility] Work Phone: NEGATED: Highlighted row [facility] Goals Date Patient Goal Desired Activity /State Mental Status Date Assessment Result Facility 09-14-2022 Cognitive function Awake;Alert [facility] Work Phone: 09-14-2022 Cognitive function Voice/Name [facility] Work Phone: 04-15-2022 Cognitive function Voice/Name [facility] Work Phone: 01-18-2022 Cognitive function Voice/Name [facility] Work Phone: Clinical Notes 11-21-2021 to 08-07-2024 Note Date & Type Note Facility 08-07-2024 Radiology Diagnostic study note [facility] Imaging Services [address] [place] [address] Lumbar Spine 2 or 3 Views MR#: [id number] Acct: [id number] Name: CANDI AGUILAR Rep #: [id number] : 1950 F 73 From: Humberto Rojas MD PCP: Claudia Anderson MD Status: REG CLI Study:Lumbar Spine 2 or 3 Views Date of Exam: 08/06/24 Exam# [id number] Ordering Dr: Jeffy Bran MD PROCEDURE: LUMBAR SPINE 2 OR 3 VIEWS 08/06/2024 REASON FOR EXAM: SPONDYLOSIS WITHOUT MYELOPATHY OR RADICULOPATHY, LUMBAR REGION TECHNIQUE: 2 view(s) of the lumbar spine COMPARISON: 05/27/2023 FINDINGS: 5 [id number] lumbar vertebral body types identified. No acute fracture or malalignment. There is again note of a remote moderate T11 compression deformity with anterior wedging, unchanged. L1-2 moderate disc space narrowing L2-3 wxos-tt-mwykporf disc space narrowing with degenerative endplate change L3-4 kbylimoc-fj-ddpmii disc space narrowing with degenerative endplate change L4-5 ffrc-el-djycddls disc space narrowing and degenerative endplate change Lower lumbar facet degenerative changes RAD/Lumbar Spine 2 or 3 Views IMPRESSION: No significant interval change in appearance of multilevel spondylosis/discogenic change as above. Reading Location: [id number] CC: Dr. 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: Signed [facility] 05-07-2024 Evaluation note Diagnosis Onset Date Resolution Dementia acute May 07, 2024 1:44pm Folate deficiency acute r 2024 1:44pm Myalgia acute May 07, 2024 1:44pm Right shoulder pain acute Febru 2024 1:44pm Essential tremor chronic May 07, 2024 1:44pm Low back pain chronic May 072024 1:44pm Multiple falls acute August 06, 2024 1:52pm Abnormality of gait and mobility chronic August 06, 2024 1 :52pm [facility] Work Phone: 1(796) 688-218802-17-2025 Evaluation note* Diagnosis Onset Date Resolution Status Admit Date Dementia acute May 07, 2024 1:44pm Folate deficiency acute y 2024 1:44pm Myalgia acute May 07, 2024 1:44pm Right shoulder pain acute 2024 1:44pm Essential tremor chronic May 07, 2024 1:44pm Low back pain chronic May 072024 1:44pm Dementia acute August 06, 2024 1:52pm Multiple falls acute August 06, 2024 1:52pm Myalgia acute August 06, 2024 1:52pm Abnormality of gait and mobility chronic August 06, 2024 1 :52pm Low back pain chronic August 06, 025 1:52pm [facility] Work Phone: 1(927) 482-653203-21-2024 Discharge summary Author Bart Mares [facility] June 08, 2023 11:45pm Note Date/Time June 08, 2023 11: 21pm [facility] Medical Records Department [address] [place] [address] Emergency Department Summary 06/08/23 MR#: [id number] Acct: [id number] Name: CANDI AGUILAR ANN Rep #:[id number] : 1950 72 From: Bart Mares MD PCP: Claudia Anderson MD Status:PRE ER Location: ED HPI HPI - Fall History of Present Illness Chief Complaint: Fall Detail of Chief Complaint: Patient fell returning to the restroom with her walker because she had epis Informant: patient and SNF Limited: dementia Occured/Mechanism Occurred: Today Mechanism/Context: Yes same level fall and Yes trip Narrative: Running to the restroom because she has diarrhea. She has had 2 loose watery stools Usually ambulates: Walker Pain/Injury Pain Location: lower extremity (Left hip region) Quality of Pain: Dull and Aching Current Severity: Mild Maximum Severity: Moderate (Danny Smitha 4 test) Worsened by: Danny Smitha 4 test Relieved by: Remaining still Associated Symptoms Associated Symptoms: Negative for Parasthesias, Weakness, Loss of function or Inability to ambulate Narrative Narrative: Patient is an elderly woman who resides at care home. She was running to therestroom. She was using her walker. She tripped over her walker. She fell. She sustained a abrasion lateral right brow and complains of left hip pain. There was no loss of conscious. She is on no antithrombotic or anticoagulant. Tetanus Immunization: Unknown Prior similar symptoms: Yes Recent Illness/Hospitalization: No PFSH [facility] Medical History Alzheimer's dementia Anxiety Arthritis Asthma Back pain Bipolar disorder Bladder disease Chronic constipation Dementia Essential tremor Gastric reflux High cholesterol Hx of hemorrhoids Insomnia Lives in care home Non-smoker Thyroid disease Home Medications aspirin 81 mg tablet,delayed release 81 mg PO DAILY HEART HEALTH 01/18/22 [History Last Taken 01/18/22] atorvastatin 10 mg tablet 10 mg PO QHS CHOLESTEROL 01/18/22 [History Last Taken 01/17/22] donepezil 10 mg tablet 10 mg PO QHS ALZHEIMERS 01/18/22 [History Last Taken 01/18/22] oxybutynin chloride 10 mg tablet,extended release 24 hr 10 mg PO BID BLADDER DYSFUNCTION 01/18/22 [History Last Taken 01/18/22] primidone 50 mg tablet 150 mg PO BID TREMORS 01/18/22 [History Last Taken 01/18/22] propranolol 20 mg tablet 20 mg PO BID HYPERTENSION 01/18/22 [History Last Taken 01/18/22] sennosides 8.6 mg-docusate sodium 50 mg tablet (Senna Plus) 1 tab PO BID PRN CONSTIPATION 01/18/22 [History Last Taken 01/18/22] venlafaxine 150 mg capsule,extended release 24 hr (Effexor XR) 150 mg PO DAILY ANXIETY 01/18/22 [History Last Taken 01/18/22] venlafaxine 75 mg capsule,extended release 24 hr (Effexor XR) 75 mg PO DAILY ANXIETY 01/18/22 [History Last Taken 01/18/22] docusate sodium 100 mg capsule 100 mg PO DAILY PRN constipation 07/01/22 [History Last Taken Unknown] gabapentin 300 mg capsule 300 mg PO BID 07/01/22 [History Last Taken Unknown] guaifenesin 100 mg/5 mL oral liquid 200 mg PO Q4H PRN Cough 07/01/22 [History Last Taken Unknown] levothyroxine 50 mcg capsule 50 mcg PO DAILY 07/01/22 [History Last Taken Unknown] memantine 10 mg tablet 10 mg PO BID ALZHEIMERS 07/01/22 [History Last Taken Unknown] omeprazole 20 mg capsule,delayed release 20 mg PO DAILY 07/01/22 [History Last Taken Unknown] trazodone 150 mg tablet 150 mg PO QHS INSOMNIA 07/01/22 [History Last Taken Unknown] buspirone 5 mg tablet 7.5 mg PO TID 09/09/22 [History Last Taken Unknown] lactulose 10 gram/15 mL oral solution 10 g PO TUTHSA 09/09/22 [History Last Taken Unknown] loratadine 10 mg capsule 10 mg PO DAILY 09/09/22 [History Last Taken Unknown] dibucaine 1 % rectal ointment 1 applic [place] TID PRN hemorrhoids #56 grams 09/28/22[Rx Last Taken Unknown] flurbiprofen 100 mg tablet 100 mg PO TID 11/09/22 [History Last Taken Unknown] lactulose 10 gram/15 mL oral solution 15 ml PO DAILY #473 mL 11/09/22 [Rx Last Taken Unknown] acetaminophen 325 mg capsule 325 mg PO Q4H PRN fever or pain 02/28/23 [History Last Taken Unknown] divalproex 125 mg capsule,delayed release sprinkle 125 mg PO ONCE 02/28/23 [History Last Taken Unknown] divalproex 250 mg tablet,delayed release 250 mg PO HS 02/28/23 [History Last Taken Unknown] escitalopram oxalate 5 mg tablet (Lexapro) 15 mg PO DAILY 02/28/23 [History Last Taken Unknown] linaclotide 72 mcg capsule (Linzess) 72 mcg PO QODAY 02/28/23 [History Last Taken Unknown] melatonin 10 mg capsule 10 mg PO HS 02/28/23 [History Last Taken Unknown] Allergy/AdvReac Type Severity Reaction Status Date / Time codeine Allergy Severe Upset Verified 06/08/23 23:05 Stomach Family History Father CVA (cerebral vascular accident) Father No problems noted. Grandfather CVA (cerebral vascular accident) Surgical History History of hysterectomy Social History current occupational status: other Smoking Status: Never smoker second hand exposure: No alcohol intake: never substance use type: does not use what type of physical activity do you participate in: none ROS ROS ED Constitutional Constitutional ED: Denies chills or fever(s) Eyes Eyes: Denies blurry vision or change in vision ENT ENT ED: Denies rhinorrhea or sore throat Cardiovascular Cardiovascular: Denies chest pain Respiratory/Chest Respiratory/Chest: Denies cough or dyspnea Gastrointestinal Gastrointestinal: Reports diarrhea; Denies abdominal pain, nausea or vomiting Genitourinary Genitourinary ED: Denies dysuria, hematuria or urinary frequency Musculoskeletal Musculoskeletal: Reports other Details: Left hip pain. ; Denies arthralgias, back pain, myalgias or neck pain Neurologic Neurologic: Denies headache(s) or paresthesias Hematologic/Lymphatic Hematologic/Lymphatic: Denies easy bleeding or easy bruising EXAM Physical Exam Const Vital Signs: 06/08/23 23:04 06/08/23 23:04 Temperature 96.6 F L Temperature Source Temporal Pulse Rate 62 Respiratory Rate 16 Respiratory Effort Normal Non-Labored Respiratory Depth Normal Respiratory Pattern Normal Blood Pressure 124/55 H Blood Pressure Mean 78 Pulse Ox 99 99 Oxygen Delivery Method Room Air Room Air Positive well nourished and well developed General Appearance ED: well developed and NAD HEENT Reports normocephalic and TM's normal bilaterally HEENT Narrative: There is a small hematoma or abrasion lateral right brow. trauma, contusion and hematoma Eyes PERRL and EOMs intact bilaterally Eyes Narrative: There is no evidence of entrapment. There is no step-off with palpation of orbital rim. There is no hyperesthesia infraorbital nerve. There is no subconjunctival hemorrhage. General Eye ED: Negative for pale conjunctiva or scleral icterus Neck full ROM, no lymphadenopathy and supple Chest Wall inspection of chest normal and palpation of chest normal Resp normal respiratory effort, no retractions and clear to auscultation bilaterally Cardio regular rate, regular rhythm, S1 normal heart sound, S2 normal heart sound and no murmurs GI non-tender, non-distended and no masses Back/Spine no CVA tenderness Thoracic Spine / Upper Back: Negative for ROM limited Lumbar Spine / Lower Back: Negative for lumbar spinal tenderness Neuro oriented x3, CN's II-XII intact bilaterally, moves all extremities, no focal motor deficits and no sensory deficits noted Neuro Narrative: There is no clonus or Babinski sign. Gunn[place] Coma Scale: document GCS findings Spontaneous Obeys Commands Oriented 15 Sensorium / Orientation: alert Psych mental status grossly normal and thought process normal Skin Skin Narrative: Contusion abrasion right brow Rashes: no rashes Trauma: abrasion MDM MDM MDM Narrative Medical decision making narrative: With no loss of conscious. Not amnestic on no antithrombotic or anticoagulant other than a baby aspirin per the [place] CT head rule imaging of the head is not indicated. Since patient has no neck pain full active range of motion and no tenderness midline posteriorly per Nexus criteria imaging is not indicated patient is able to lift her left leg up off the bed. She has pain with the Danny Smitha 4 test. This may represent an avulsion fracture of the greater troches or possibly a grade 1 femoral neck fracture. For this reason x-ray was ordered. Her vital signs are unremarkable. Tetanus was updated. Records from the nursing facility were reviewed. History & Record Review Additional record(s) reviewed:: Prior outpatient record (Records from outside source indicates patient has frequent falls. Neurology record was reviewed for back pain without sciatica. Also many mental exam revealed a score of 19/30.) and Prior ED visit (ER visit for fracture a year ago was for abnormal gait and reason for falls.) Radiography Chest X-Ray - ED: Read by ED Physician (Three-view x-ray of the left hip revealsdegenerative change. Is evidence of fracture, subluxation or dislocation.) Discharge Plan Triage Chief Complaint: Fall ED Provider: Bart Mares Dx/Rx/DC Orders Clinical Impression: Contusion of face, Alzheimer's dementia, Contusion of left hip, Injury due to fall, DNR (do not resuscitate) Instructions: ED Facial Contusion, ED Hip Contusion Prescriptions: No Action gabapentin 300 mg capsule 300 mg PO BID docusate sodium 100 mg capsule 100 mg PO DAILY PRN (Reason: constipation) guaifenesin 100 mg/5 mL liquid 200 mg PO Q4H PRN (Reason: Cough) levothyroxine 50 mcg capsule 50 mcg PO DAILY omeprazole 20 mg capsule,delayed release(DR/EC) 20 mg PO DAILY flurbiprofen 100 mg tablet 100 mg PO TID lactulose 10 gram/15 mL solution 15 ml PO DAILY Qty: 473 6RF dibucaine 1 % ointment 1 applic [place] TID PRN (Reason: hemorrhoids) Qty: 56 0RF escitalopram oxalate [Lexapro] 5 mg tablet 15 mg PO DAILY Linzess 72 mcg capsule 72 mcg PO QODAY melatonin 10 mg capsule 10 mg PO HS divalproex 125 mg capsule, delayed rel sprinkle 125 mg PO ONCE divalproex 250 mg tablet,delayed release (DR/EC) 250 mg PO HS acetaminophen 325 mg capsule 325 mg PO Q4H PRN (Reason: fever or pain) primidone 50 mg Tablet 150 mg PO BID venlafaxine [Effexor XR] 75 mg Capsule,Extended Release 24hr 75 mg PO DAILY atorvastatin 10 mg Tablet 10 mg PO QHS oxybutynin chloride 10 mg Tablet Extended Release 24hr 10 mg PO BID donepezil 10 mg Tablet 10 mg PO QHS sennosides-docusate sodium [Senna Plus] 8.6-50 mg Tablet 1 tab PO BID PRN (Reason: CONSTIPATION) venlafaxine [Effexor XR] 150 mg Capsule,Extended Release 24hr 150 mg PO DAILY aspirin [Aspirin Low-Strength] 81 mg Tablet,Delayed Release (Dr/Ec) 81 mg PO DAILY propranolol 20 mg Tablet 20 mg PO BID memantine 10 mg tablet 10 mg PO BID Rx Instructions: Take one 10 mg in AM Take one 10 mg at HS trazodone 150 mg tablet 150 mg PO QHS buspirone 5 mg Tablet 7.5 mg PO TID lactulose 10 gram/15 mL Solution 10 g PO TUTHSA loratadine 10 mg Capsule 10 mg PO DAILY Primary Care Provider: Claudia Anderson Referrals: Claudia Anderson MD [Primary Care Provider] - As Needed Activity Restrictions/Additional Instructions: Ice to facial contusion and left hip contusion 6-10 times a day Tylenol for pain Disposition Disposition: Home, Self Care What to do if you have Problems For any increased pain, shortness of breath, bleeding, nausea or vomiting, chestpain, or any unexpected problems, contact your Primary Care Provider. Call [facility] ([phone]) or report to the closest Emergency Room. Call 911 if necessary. 06/08/23 2345 <Electronically signed by Bart Mares MD> Cosigner Signature (if applicable): CC: Claudia Anderson MD ~ Signed [facility] Work Phone: 1(256) 670-295410-18-2023 NoteHNO ID: [id number] Author: Sabrina Welch MD Service: ? Author Type: Physician Type: Progress Notes Filed: 01/05/2023 4:48 PM Note Text: Assessment and Plan 1. Meibomian gland dysfunction (MGD) of upper and lower lids of both eyes 2. Dry eye syndrome of both eyes -main complaint are pain and discharge both eyes -significant Meibomian gland dysfunction -steroid drops did not help -erythromycin ointment at bedtime both eyes - bothers patient - stopped -duraplug 0.3 placed lower lid both eyes - helped -xiidra helps greatly 3. Pseudophakia Posterior capsular opacity (PCO) right eye -stable both eyes -s/p YAG capsulotomy left eye 12/10/20 and right eye 12/29/22 -much improved vision 4. 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 5. Refractive error -followed by Dr. Shen Plan: -Retina precautions reviewed. Return to clinic as soon as possible if increased floaters, flashes, or shadows. -Kasey mask hot compresses twice a day both eyes -systane complete three times a day both eyes -xiidra twice a day both eyes -Do not rub eyes! -back to Dr. Shen for continued care -me as needed. to consider punctal plugs if pain recurs I have confirmed and edited as necessary the relevant ophthalmic history, ROS, and the neuro exam findings as obtained by others. I have seen and examined Candi Aguilar. I have discussed the case and the management of this patient's care with the Resident/Fellow, if applicable. I also have reviewed and agree with the assessment and plan as stated above and agree with all of its relevant components. Sabrina Welch, [facility]10-11-2023 NoteHNO ID: [id number] Author: Sabrina Welch MD Service: ? Author Type: Physician Type: Progress Notes Filed: 12/29/2022 2:03 PM Note Text: Assessment and Plan 1. Meibomian gland dysfunction (MGD) of upper and lower lids of both eyes 2. Dry eye syndrome of both eyes -main complaint are pain and discharge both eyes -significant Meibomian gland dysfunction -steroid drops did not help -erythromycin ointment at bedtime both eyes - bothers patient - stopped -duraplug 0.3 placed lower lid both eyes - helped -xiidra helps greatly 3. Pseudophakia Posterior capsular opacity (PCO) right eye -stable both eyes -s/p YAG capsulotomy left eye 12/10/20 - much improved vision -much progressed posterior capsular opacity (PCO) right eye Candi Aguilar has confirmed that she is no longer able to function adequately on a daily basis with her current visual condition. Further, it is my medical opinion that the posterior capsule opacity is the primary cause, or a significantly contributory cause, of her visual dysfunction. With uncomplicated YAG laser posterior capsulotomy, it is my expectation that her visual function and quality of life will improve, significantly. The risks, benefits, alternatives, personnel and complications of YAG laser posterior capsulotomy were discussed with Candi Aguilar in detail. she appeared to understand and asked that I proceed with plans for surgery. 4. Refractive error -followed by Dr. Shen Plan: -asking for YAG capsulotomy right eye -risk, benefis, and alternatives reviewed and consent obtained -Kasey mask hot compresses twice a day both eyes -systane complete three times a day both eyes -xiidra twice a day both eyes -Do not rub eyes! -follow-up Dr. Shen -me as needed. to consider punctal plugs if pain recurs I have confirmed and edited as necessary the relevant ophthalmic history, ROS, and the neuro exam findings as obtained by others. I have seen and examined Candi Aguilar. I have discussed the case and the management of this patient's care with the Resident/Fellow, if applicable. I also have reviewed and agree with the assessment and plan as stated above and agree with all of its relevant components. Sabrina Welch, [facility]10-11-2023 Instructions* Patient Instructions* Sabrina Welch MD - 12/29/2022 2:02 PM EDT Images from the original note were not included. [facility] History of Present illness Narrative* Sabrina Welch MD - 12/29/2022 1:46 PM EDT Assessment and Plan 1. Meibomian gland dysfunction (MGD) of upper and lower lids of both eyes 2. Dry eye syndrome of both eyes -main complaint are pain and discharge both eyes -significant Meibomian gland dysfunction -steroid drops did not help -erythromycin ointment at bedtime both eyes - bothers patient - stopped -duraplug 0.3 placed lower lid both eyes - helped -xiidra helps greatly 3. Pseudophakia Posterior capsular opacity (PCO) right eye -stable both eyes -s/p YAG capsulotomy left eye 12/10/20 - much improved vision -much progressed posterior capsular opacity (PCO) right eye Candi Aguilar has confirmed that she is no longer able to function adequately on a daily basis withher current visual condition. Further, it is my medical opinion that the posterior capsule opacity is the primary cause, or a significantly contributory cause, of her visual dysfunction. With uncomplicated YAG laser posterior capsulotomy, it is my expectation that her visual function and quality of life will improve, significantly. The risks, benefits, alternatives, personnel and complications of YAG laser posterior capsulotomy were discussed with Candi Aguilar in detail. she appeared to understand and asked that I proceed withplans for surgery. 4. Refractive error -followed by Dr. Shen Plan: -asking for YAG capsulotomy right eye -risk, benefis, and alternatives reviewed and consent obtained -Kasey mask hot compresses twice a day both eyes -systane complete three times a day both eyes -xiidra twice a day both eyes -Do not rub eyes! -follow-up Dr. Shen -ok as needed. to consider punctal plugs if pain recurs I have confirmed and edited as necessary the relevant ophthalmic history, ROS, and the neuro exam findings as obtained by others. I have seen and examined Candi Aguilar. I have discussed the case and the management of this patient's care with the Resident/Fellow, if applicable. I also have reviewed and agree with the assessment and plan as stated above and agree withall of its relevant components. Sabrina Welch MD [facility]27[facility]2023 History and physical note Author Dr. Mckeon [facility] September 14, 2022 10:52am Note Date/Time September 14, 2022 10:5 2am [facility] Medical Records Department [address] [place] [address] History & Physical Exam 09/14/22 1051 MR#: [id number] Acct: [id number] Name: CANDI AGUILAR Rep #:[id number] : 1950 72 From: Willy suarez MD PCP: Claudia Anderson MD Status:[facility] Location: [place] [address] History and Physical Date of Admission: 09/14/22 Intake Vital Signs ? 08/27/2320:47 09/07/2307:52 Height 5 ft 5 ft Weight: 112 lb 14.027 oz 110 lb BMI 22.0 21.4 BP 124/57 H 96/64 Blood Pressure Location ? Rt brachial Position ? Sitting Respiration 18 16 Pulse 58 L 71 Pulse Source ? Monitor Temp 97.1 F L 96.8 F L Temp Source Temporal Temporal Pulse Oximetry (%) 99 98 Intake Visit Reasons:?HEMORRHOIDS Chief Complaint: hemorroids Allergies codeine Allergy (Severe, Verified 09/06/22 08:54) Upset Stomach Medications aspirin 81 mg tablet,delayed release 81 mg PO DAILY HEART HEALTH 01/18/22 [History Confirmed 09/06/22] atorvastatin 10 mg tablet 10 mg PO QHS CHOLESTEROL 01/18/22 [History Confirmed 09/06/22] cetirizine 10 mg tablet (Zyrtec) 10 mg PO DAILY ALLERGIES 01/18/22 [History Confirmed 09/06/22] donepezil 10 mg tablet 10 mg PO DAILY ALZHEIMERS 01/18/22 [History Confirmed 09/06/22] lidocaine 4 % topical patch (Lidocaine Pain Relief) 1 patch topical DAILY PAIN 01/18/22 [History Confirmed 09/06/22] multivitamin 1 tab PO DAILY HEALTH MAINTENANCE 01/18/22 [History Confirmed 09/06/22] oxybutynin chloride 10 mg tablet,extended release 24 hr 10 mg PO BID BLADDER DYSFUNCTION 01/18/22 [History Confirmed 09/06/22] primidone 50 mg tablet 150 mg PO BID TREMORS 01/18/22 [History Confirmed 09/06/22] propranolol 20 mg tablet 20 mg PO BID HYPERTENSION 01/18/22 [History Confirmed 09/06/22] sennosides 8.6 mg-docusate sodium 50 mg tablet (Senna Plus) 1 tab PO BID CONSTIPATION 01/18/22 [History Confirmed 09/06/22] venlafaxine 150 mg capsule,extended release 24 hr (Effexor XR) 150 mg PO DAILY ANXIETY 01/18/22 [History Confirmed 09/06/22] venlafaxine 75 mg capsule,extended release 24 hr (Effexor XR) 75 mg PO DAILY ANXIETY 01/18/22 [History Confirmed 09/06/22] clonazepam 0.5 mg tablet 0.25 mg PO BID ANXIETY 07/01/22 [History Confirmed 09/06/22] divalproex 250 mg tablet,delayed release 250 mg PO BID 07/01/22 [History Confirmed 09/06/22] docusate sodium 100 mg capsule 100 mg PO BID 07/01/22 [History Confirmed 09/06/22] gabapentin 300 mg capsule 300 mg PO BID 07/01/22 [History Confirmed 09/06/22] guaifenesin 100 mg/5 mL oral liquid 200 mg PO Q4H PRN 07/01/22 [History Confirmed 09/06/22] levothyroxine 50 mcg capsule 50 mcg PO DAILY 07/01/22 [History Confirmed 09/06/22] melatonin 3 mg capsule 3 mg PO HS 07/01/22 [History Confirmed 09/06/22] memantine 10 mg tablet 10 mg PO BID ALZHEIMERS 07/01/22 [History Confirmed 09/06/22] naproxen sodium 220 mg tablet (Aleve) 440 mg PO BID PAIN 07/01/22 [History Confirmed 09/06/22] omeprazole 20 mg capsule,delayed release 20 mg PO DAILY 07/01/22 [History Confirmed 09/06/22] risperidone 0.25 mg tablet 0.25 mg PO BID 07/01/22 [History Confirmed 09/06/22] trazodone 150 mg tablet 125 mg PO QHS INSOMNIA 07/01/22 [History Confirmed 09/06/22] PFSH Medical History? Alzheimer's dementia Anxiety Asthma High cholesterol Surgical History? History of hysterectomy Family History? Father CVA (cerebral vascular accident)Father ?? No problems noted. Grandfather CVA (cerebral vascular accident) Social History? Smoking Status:? Never smoker second hand exposure:? No alcohol intake:? never substance use type:? does not use what type of physical activity do you participate in:? none HPI HPI HPI: Patient reports that she has hemorrhoids and they are bothering her.? Patient reports that she is having discomfort especially with bowel movements and she ishaving bleeding.? She bleeds during most bowel movements and less they are very loose.? She is on 3 laxatives. ROS General General: No weight change, appetite, fatigue, colon cancer, breast cancer or weakness HEENT HEENT: Yes eye surgery; No difficulty swallowing, eye injury, swollen glands or hoarseness Endo Endocrine: No thyroid disease, diabetes mellitus, thyroid cancer, Hair loss, heat intolerance or cold intolerance Skin Skin: No rash or changing moles Breast Breast: No left breast lump, right breast lump, nipple discharge, breast pain, abnormal mammogram, abnormal US or breast enlargement Musc Musculoskeletal: No back problems, arthritis, rheumatoid arthritis, gout or joint pain Cardio Cardiovascular: Yes murmur; No pacemaker, heart disease, atrial fibrillation, high blood pressure, heart attack, heart stent, palpitations, shortness of breat with exertion or chest pain Psych Psychiatric: Yes depression and anxiety; No hearing voices Resp Respiratory: No shortness of breath, No sleep apnea, No cough, No COPD, No asthma, No emphysema and No wheezing Gastro Gastrointestinal: No abdominal pain, No nausea or vomiting, No diarrhea, Yes constipation, No blood in stool, No acid reflux, Yes hemorrhoids, No ulcers, No gallbladder problem and No black,tarry stools Petey Hematologic: No blood thinners, No blood disorders, No bleeding, No anemia and No blood clots Neuro Neurologic: No system reviewed and no additional complaints, except as documented, No as per HPI, No abnormal gait, No abnormal hearing, No abnormal movements, No abnormal speech, No behavioral changes, No burning sensations, No confusion, No convulsions, No disequilibrium, No dizziness, No localized weakness, No frequent falls, No headache(s), No lack of coordination, No loss of vision, No memory loss, No numbness, No other visual disturbances, No radicular pain, No restless legs, No sensory deficit, No syncope, No tingling, No tremor(s), No weakness and No other Exam Const General: cooperative Orientation: alert and oriented x3 HENMT Head: normal to inspection Neck Neck: normal visual inspection and full ROM Chest Chest palpation & inspection: normal inspection of the chest Resp Effort & Inspection: normal respiratory effort Auscultation: clear to auscultation bilaterally Cardio Rate: regular rate Rhythm: regular rhythm GI Inspection: non-distended Palpation: soft and nontender Rectal Exam: hemorrhoids Skin General: no rashes or lesions noted Neuro General: patient alert and patient oriented x3 Extrem General: full ROM Psych Appearance: grossly normal Mental Status: mental status grossly normal Assessment and Plan Assessment and Plan (1) Bleeding hemorrhoids: ?Status:?Acute ?Plan: Patient has hemorrhoids with bleeding and pain.? I discussed hemorrhoidectomy with the patient in detail.? I discussed the risks including but not limited to bleeding, infection, need for further surgery or pain.? Patient understands the risks and is willing to proceed.? I will stop aspirin for 5 days. Willy Mckeon MD Pager: [facility] [address] [place] [address], [address] [place] [phone] Office: I have examined the patient and the H&P has been reviewed. There are no clinicalchanges since date of exam. 09/14/22 1052 <Electronically signed by Willy Mckeon MD> Cosigner Signature (if applicable): CC: Dr. Willy Mckeon MD; Claudia Anderson MD~ Signed [facility] Work Phone: 1([phone]) 244-266001-27-[address] Ocampo [facility] April 16, 2022 12:31am Note Date/Time April 15, 2022 1 0:18pm [facility] Medical Records Department [address] [place] [address] Emergency Department Summary 04/15/22 MR#: [id number] Acct: [id number] Name: CANDI AGUILAR Rep #:[id number] : 1950 71 From: David Willams PCP: Dr. Addi Tatum DO Status:RE G ER Location: ED HPI History of Present Illness Chief Complaint: Mental Status Change Informant: EMS and SNF Narrative Narrative: Patient brought in by EMS from [facility] for reported altered mental status throughout the day. History of Alzheimer dementia however reports baseline ANO x4. Reports had multiple falls today and now currently only alert to herself. Record she is on aspirin from anticoagulation medicines. Patient currently reports pain to her back. No other complaints at this time. Blood glucose was in the 100s per EMS. Reported that her clonazepam 0.5 mg was recently increased to 4 times daily from 3 times daily. [facility] Medical History Alzheimer's dementia Anxiety Asthma High cholesterol Home Medications ammonium lactate 12 % topical cream 1 applic topical BID 01/18/22 [History Last Taken 01/18/22] aspirin 81 mg tablet,delayed release 81 mg PO DAILY HEART HEALTH 01/18/22 [History Last Taken 01/18/22] atorvastatin 10 mg tablet 10 mg PO QHS CHOLESTEROL 01/18/22 [History Last Taken 01/17/22] buspirone 30 mg tablet 30 mg PO BID ANXIETY 01/18/22 [History Last Taken 01/18/22] cetirizine 10 mg tablet (Zyrtec) 10 mg PO DAILY ALLERGIES 01/18/22 [History Last Taken 01/18/22] clonazepam 0.5 mg tablet 0.5 mg PO TID ANXIETY 01/18/22 [History Last Taken 01/18/22] cyanocobalamin (vitamin B-12) 500 mcg tablet (Vitamin B-12) 500 mcg PO DAILY SUPPLEMENT 01/18/22 [History Last Taken 01/18/22] donepezil 10 mg tablet 10 mg PO DAILY ALZHEIMERS 01/18/22 [History Last Taken 01/18/22] lamotrigine 100 mg tablet 100 mg PO DAILY BIPOLAR DISORDER 01/18/22 [History Last Taken 01/18/22] lamotrigine 100 mg tablet 100 mg PO QHS BIPOLAR DISORDER 01/18/22 [History Last Taken 01/17/22] lamotrigine 50 mg tablet,extended release 24 hr 50 mg PO DAILY BIPOLAR DISORDER 01/18/22 [History Last Taken 01/18/22] lidocaine 4 % topical patch (Lidocaine Pain Relief) 1 patch topical DAILY PAIN 01/18/22 [History Last Taken 01/18/22] memantine 10 mg tablet 20 mg PO DAILY ALZHEIMERS 01/18/22 [History Last Taken 01/18/22] multivitamin 1 tab PO DAILY HEALTH MAINTENANCE 01/18/22 [History Last Taken 01/18/22] naproxen sodium 220 mg tablet (Aleve) 220 mg PO BID PAIN 01/18/22 [History Last Taken 01/18/22] oxybutynin chloride 10 mg tablet,extended release 24 hr 10 mg PO BID BLADDER DYSFUNCTION 01/18/22 [History Last Taken 01/18/22] primidone 50 mg tablet 150 mg PO BID TREMORS 01/18/22 [History Last Taken 01/18/22] propranolol 20 mg tablet 20 mg PO BID HYPERTENSION 01/18/22 [History Last Taken 01/18/22] sennosides 8.6 mg-docusate sodium 50 mg tablet (Senna Plus) 1 tab PO BID CONSTIPATION 01/18/22 [History Last Taken 01/18/22] sertraline 50 mg tablet (Zoloft) 50 mg PO QHS DEPRESSION/ANXIETY 01/18/22 [History Last Taken 01/17/22] trazodone 150 mg tablet 225 mg PO QHS INSOMNIA 01/18/22 [History Last Taken 01/17/22] venlafaxine 150 mg capsule,extended release 24 hr (Effexor XR) 150 mg PO DAILY ANXIETY 01/18/22 [History Last Taken 01/18/22] venlafaxine 75 mg capsule,extended release 24 hr (Effexor XR) 75 mg PO DAILY ANXIETY 01/18/22 [History Last Taken 01/18/22] Allergy/AdvReac Type Severity Reaction Status Date / Time codeine Allergy Upset Verified 02/13/22 22:16 Stomach Social History Smoking Status: Never smoker ROS ROS ED Review of Systems ROS Unobtainable: due to mental status Musculoskeletal Musculoskeletal: Reports back pain EXAM Physical Exam Const Vital Signs: 04/15/22 21:44 04/15/22 21:48 04/16/22 00:14 Temperature 97.5 F L Temperature Source Temporal Pulse Rate 63 Respiratory Rate 18 Blood Pressure 145/68 H Blood Pressure Mean 93 Pulse Ox 100 97 Oxygen Delivery Method Room Air Room Air Positive cachectic Constitutional Narrative: Nontoxic, following commands moving all 4 extremities. General Appearance ED: cachectic and NAD Nutritional Appearance: cachectic HEENT Reports moist mucous membranes HEENT Narrative: No signs of head trauma. normocephalic and atraumatic Eyes PERRL, EOMs intact bilaterally and conjunctivae normal General Eye ED: Yes normal appearance of both eyes Neck no lymphadenopathy and supple General: Negative for tenderness Chest Wall inspection of chest normal and palpation of chest normal Chest Narrative: No chest wall tenderness. Chest: Negative for tenderness Resp normal respiratory effort and normal air movement Effort and Inspection: symmetric chest movement; Negative for respiratory distress Cardio regular rate, regular rhythm and no murmurs Peripheral Pulses: pulses 2+ throughout GI normal to inspection, nondistended, normoactive bowel sounds and non-tender Palpation: Negative for guarding or rebound tenderness present Back/Spine no CVA tenderness Back/Spine Narrative: Kyphosis to the thoracic spine, tender mid lower thoracic and lumbar spine with no step-offs. Extremity normal to inspection Extremity Narrative: Moving all 4 extremities negative logroll bilateral lower extremities. General Extremety ED: Negative for edema or tenderness General Extremity: Negative for edema Neuro oriented x3 and no sensory deficits noted Sensorium / Orientation: awake and alert Skin no rashes or lesions noted and no wounds MDM MDM MDM Narrative Medical decision making narrative: Initial reported altered mental status with her dementia history stating she is initially baseline A&O x4 per report. Work-up initiated for altered mental status with differentials pneumonia UTI electrolyte abnormalities. Also medication induced with increasing Klonopin. She is moving all extremities therefore less likely stroke in nature. She had multiple falls related reporting back pain. Work-up was initiated for potential fractures for differential versus intracranial hemorrhage. Laboratory studies normal white count hemoglobin 11. Electrolytes were normal creatinine normal urine without infection. 1 view chest x-ray interpreted myself read by radiology possible infiltrative changes in the right clinical scenario. She is not hypoxic there is been no noted cough. Therefore less likely clinical pneumonia. 1 view pelvis also treat myself and read by radiology negative for any fractures. Trauma scans head and neck were negative per radiology. CT scan lumbar thoracicspine also obtained. Lumbar negative however on thoracic spine notes concern for acute on chronic T11 fracture. In interim nursing did discuss with the facility states she is baseline demented not alert and oriented x4. With her known dementia history, she has acute on chronic T11 fracture. She is moving all 4 extremities. With patient receiving care at nursing facility she is not in any intractable pain. She will be discharged back to her facility with continue management there. Lab Data Attestation: I reviewed the patient's lab results. Labs: Laboratory Results - last 24 hr 04/15/22 04/15/22 04/15/22 21:58 21:58 21:58 WBC 7.8 RBC 3.57 L Hgb 11.0 L Hct 34.7 L MCV 97.2 MCH 30.8 MCHC 31.7 L RDW Std Deviation 44.9 H RDW Coeff of Krystal 12.8 Plt Count 390 MPV 9.8 Immature Gran % (Auto) 0.300 Neut % (Auto) 50.0 Lymph % (Auto) 32.4 Montgomery % (Auto) 12.1 H Eos % (Auto) 4.3 Baso % (Auto) 0.9 Absolute Neuts (auto) 3.9 Absolute Lymphs (auto) 2.54 Nucleated RBC % 0 PT 13.5 INR 1.1 APTT 29.1 Sodium 140 Potassium 4.5 Chloride 102 Carbon Dioxide 32.0 Anion Gap 6 BUN 24 H Creatinine 0.85 Estim Creat Clear Calc 44.24 Est GFR (MDRD) Af Amer 85 Est GFR (MDRD) Non-Af 70 BUN/Creatinine Ratio 28.1 H Glucose 100 Calcium 9.0 Total Bilirubin 0.20 AST 18 ALT 15 Alkaline Phosphatase 92 Total Protein 7.1 Albumin 3.5 Globulin 3.6 Albumin/Globulin Ratio 1.0 Urine Color Urine Clarity Urine pH Ur Specific Geneva Urine Protein Urine Glucose (UA) Urine Ketones Urine Occult Blood Urine Nitrite Urine Bilirubin Urine Urobilinogen Ur Leukocyte Esterase Urine RBC Urine WBC Ur Squamous Epith Cells Urine Bacteria Urine Mucus 04/15/22 22:17 WBC RBC Hgb Hct MCV MCH MCHC RDW Std Deviation RDW Coeff of Krystal Plt Count MPV Immature Gran % (Auto) Neut % (Auto) Lymph % (Auto) Montgomery % (Auto) Eos % (Auto) Baso % (Auto) Absolute Neuts (auto) Absolute Lymphs (auto) Nucleated RBC % PT INR APTT Sodium Potassium Chloride Carbon Dioxide Anion Gap BUN Creatinine Estim Creat Clear Calc Est GFR (MDRD) Af Amer Est GFR (MDRD) Non-Af BUN/Creatinine Ratio Glucose Calcium Total Bilirubin AST ALT Alkaline Phosphatase Total Protein Albumin Globulin Albumin/Globulin Ratio Urine Color Yellow Urine Clarity Clear Urine pH 5.0 Ur Specific Geneva 1.020 Urine Protein 15 H Urine Glucose (UA) NEGATIVE Urine Ketones Negative Urine Occult Blood Negative Urine Nitrite Negative Urine Bilirubin Negative Urine Urobilinogen Normal Ur Leukocyte Esterase Negative Urine RBC 0 SEEN Urine WBC 0 SEEN Ur Squamous Epith Cells 0 SEEN Urine Bacteria 0 SEEN Urine Mucus 0 SEEN Radiography Diagnostic Testing: Clinical Impression(s) from Imaging Studies Brain CT 04/15/22 21:59 IMPRESSION: No acute intracranial abnormality. Chronic involutional and ischemic changes of the brain. Electronically Signed: Jackson Garcia MD at 22:53 EST , Cervical Spine CT 04/15/22 21:59 IMPRESSION: No evidence of acute cervical spinal fracture or spondylolisthesis. Moderate multilevel degenerative disc disease and spondylosis. Electronically Signed: Jackson Garcia MD at 22:54 EST , Lumbar Spine CT 04/15/22 21:59 IMPRESSION: No evidence of acute lumbar spinal fracture. Old left incompletely healed 12th posterior rib fracture. Grade 1 anterolisthesis L4 on L5. Moderate multilevel degenerative disc disease and spondylosis. Electronically Signed: Jackson Garcia MD at 22:57 EST Reading Location ID and State: [place] / [place] Tel , Service support , Thoracic Spine CT 04/15/22 21:59 IMPRESSION: Acute on chronic severe compression deformity of T11. Minimal retropulsion of bony fragments. Peripheral based clustered nodular opacities with surrounding groundglass opacity in the bilateral lower lobes. Differential includes but is not limited to contusions and atypical infection. Moderate multilevel degenerative disc disease and spondylosis. Electronically Signed: Jackson Garcia MD at 23:05 EST Reading Location ID and State: [place] / [place] Tel , Service support , Chest X-Ray 04/15/22 22:30 IMPRESSION: Few scattered patchy opacities could represent infection the correct clinical setting. Severe compression deformity of T11. Refer to thoracic CT report for more details. Electronically Signed: Jackson Garcia MD at 23:06 EST Reading Location ID and State: [place] / [place] Tel , Service support , Pelvis X-Ray 04/15/22 22:30 IMPRESSION: No evidence of displaced pelvic or hip fracture. Moderate degenerative changes of the bilateral hips. Electronically Signed: Jackson Garcia MD at 23:07 EST Reading Location ID and State: [id number] / [employer] Tel , Service support , EKG Initial EKG: Attestation: I personally reviewed and interpreted this EKG as follows: Comments: Sinus rate of 59, no ST or T wave changes. No signs of heart block. QTc 425. Discharge Plan Triage Chief Complaint: Mental Status Change ED Provider: David Ocampo Dx/Rx/DC Orders Clinical Impression: Compression fracture of T11 vertebra, Fall, Dementia Instructions: Compression Fx, ED DEMENTIA Alzheimer's, ED Fall with Uncertain Cause Prescriptions: No Action multivitamin Tablet 1 tab PO DAILY primidone 50 mg Tablet 150 mg PO BID venlafaxine [Effexor XR] 75 mg Capsule,Extended Release 24hr 75 mg PO DAILY lidocaine [Lidocaine Pain Relief] 4 % Adhesive Patch,Medicated 1 patch TOPICAL DAILY cetirizine [Zyrtec] 10 mg Tablet 10 mg PO DAILY atorvastatin 10 mg Tablet 10 mg PO QHS oxybutynin chloride 10 mg Tablet Extended Release 24hr 10 mg PO BID donepezil 10 mg Tablet 10 mg PO DAILY clonazepam 0.5 mg Tablet 0.5 mg PO TID sennosides-docusate sodium [Senna Plus] 8.6-50 mg Tablet 1 tab PO BID venlafaxine [Effexor XR] 150 mg Capsule,Extended Release 24hr 150 mg PO DAILY aspirin [Aspirin Low-Strength] 81 mg Tablet,Delayed Release (Dr/Ec) 81 mg PO DAILY cyanocobalamin (vitamin B-12) [Vitamin B-12] 500 mcg Tablet 500 mcg PO DAILY trazodone 150 mg Tablet 225 mg PO QHS buspirone 30 mg Tablet 30 mg PO BID naproxen sodium [Aleve] 220 mg Tablet 220 mg PO BID ammonium lactate 12 % Cream 1 applic TOPICAL BID propranolol 20 mg Tablet 20 mg PO BID sertraline [Zoloft] 50 mg Tablet 50 mg PO QHS lamotrigine 100 mg Tablet 100 mg PO DAILY lamotrigine 100 mg Tablet 100 mg PO QHS memantine 10 mg Tablet 20 mg PO DAILY lamotrigine 50 mg Tablet Extended Release 24hr 50 mg PO DAILY Primary Care Provider: Addi Tatum Referrals: Addi Tatum DO [Primary Care Provider] - Activity Restrictions/Additional Instructions: Acute on chronic T11 compression fracture found on imagings. CT scan head and neck lumbar spine negative. Urine negative for infection. Lab's are all stable. Disposition Disposition: Home, Self Care What to do if you have Problems For any increased pain, shortness of breath, bleeding, nausea or vomiting, chestpain, or any unexpected problems, contact your Primary Care Provider. Call [facility] ([phone]) or report to the closest Emergency Room. Call 911 if necessary. 04/16/2230 <Electronically signed by David Willams> Cosigner Signature (if applicable): CC: Dr. dAdi Tatum DO ~ Signed [facility] Work Phone: [phone] 701-372409-03-2022 Hospital Discharge instructions Additional Instructions Please continue all of your medications as previously prescribed. You will be sore after the fall for typically about 7 to 10 days. If symptoms are lasting longer than this or worsen please return to the ER or see your family doctor for repeat evaluation.[facility] Work Phone: Discharge summary Author Dr. Mckeon [facility] September 14, 2022 1:14pm Note Date/Time September 14, 2022 1:11 pm [facility] Medical Records Department [address] [place] [address] Instructions for Home/Discharge Instructions 09/14/22 1310 MR#: [id number] Acct: [id number] Name: CANDI AGUILAR ANN Rep #:[id number] : 1950 72 From: Willy suarez MD PCP: Claudia Anderson MD Status:[facility] Discharge Instructions Procedure Rectal Surgery Diet Discharge Diet: Light diet - advance as tolerated (Pain medication may cause nausea. You should typically eat light foods as you take your pain medication.) Activity Discharge Activity: Return to Normal Activity and May Not Drive (while you are taking narcotic pain medications. Do not drive, work with heavy equipment or sign legal documents for 24 hours after your surgery.) May resume sexual activity in: No Restrictions Additional Activity Instructions:: Be aware that pain medications may cause nausea. You should typically eat light foods as you take your pain medications. Pain medications may also cause constipation, if you have difficulty with this please discuss with your doctor. Dressing / Incision Call your doctor if your incision/area has: Continuous Slow Oozing, Sudden Increased Bleeding, Increased Pain/ Swelling, Increased Redness, Foul Smelling Discharge and Swelling at the incision site Call your doctor if you observe: Uncontrolled pain Additional Dressing/Incision Instructions:: Leave the operative bandage on for 2days. If a local anesthetic plug was placed in the anal area, try not to expel for [address] dibucaine ointment on the perianal area as needed. Sitz baths twice daily and after bowel movements. Follow Up Care Please Follow Up With: Willy Mckeon MD When: Please call to schedule 2 week follow up appointment. [phone] Test Results: Test results from this visit will be discussed in further detail at your follow- up appointment, if applicable. Discharge Plan Admission Attending Provider: Willy [facility] Primary Care Provider: Claudia Anderson Discharge Orders/Prescriptions Prescriptions: New oxycodone 5 mg tablet 5 - 10 mg PO Q6H PRN (Reason: pain) 5 Days Qty: 30 0RF No Action gabapentin 300 mg capsule 300 mg PO BID divalproex 250 mg tablet,delayed release (DR/EC) 250 mg PO BID docusate sodium 100 mg capsule 100 mg PO BID guaifenesin 100 mg/5 mL liquid 200 mg PO Q4H PRN (Reason: Cough) levothyroxine 50 mcg capsule 50 mcg PO DAILY melatonin 3 mg capsule 3 mg PO HS omeprazole 20 mg capsule,delayed release(DR/EC) 20 mg PO DAILY risperidone 0.25 mg tablet 0.25 mg PO DAILY Rx Instructions: Take one tab every AM and HS primidone 50 mg Tablet 150 mg PO BID venlafaxine [Effexor XR] 75 mg Capsule,Extended Release 24hr 75 mg PO DAILY lidocaine [Lidocaine Pain Relief] 4 % Adhesive Patch,Medicated 1 patch TOPICAL DAILY atorvastatin 10 mg Tablet 10 mg PO QHS oxybutynin chloride 10 mg Tablet Extended Release 24hr 10 mg PO BID donepezil 10 mg Tablet 10 mg PO QHS sennosides-docusate sodium [Senna Plus] 8.6-50 mg Tablet 1 tab PO BID venlafaxine [Effexor XR] 150 mg Capsule,Extended Release 24hr 150 mg PO DAILY aspirin [Aspirin Low-Strength] 81 mg Tablet,Delayed Release (Dr/Ec) 81 mg PO DAILY propranolol 20 mg Tablet 20 mg PO BID naproxen sodium [Aleve] 220 mg tablet 440 mg PO BID memantine 10 mg tablet 10 mg PO BID Rx Instructions: Take one 10 mg in AM Take one 10 mg at HS trazodone 150 mg tablet 150 mg PO QHS Rx Instructions: Patient is given 125mg of Trazodone 1 100mg tab and 1/2 tab of 50mg buspirone 5 mg Tablet 5 mg PO TID escitalopram oxalate [Lexapro] 10 mg Tablet 10 mg PO QHS lactulose 10 gram/15 mL Solution 10 g PO TUTHSA loratadine 10 mg Capsule 10 mg PO DAILY Referrals / Follow Up: Claudia Anderson MD [Primary Care Provider] - Disposition Disposition (needs filled in before D/C Order can be placed): Home, Self Care 09/14/22 1314<Electronically signed by Willy Mckeon MD>Willy Mckeon MD CC: Claudia Anderson MD ~ Signed [facility] Work Phone: evaluation noteNo assessment information available [facility] Work Phone: evaluation note* Diagnosis Onset Date Resolution Status Low back pain acute Myalgia acute [facility] Work Phone: evaluation note* Diagnosis Onset Date Resolution Status Myalgia acute Abnormality of gait and mobility chronic Alzheimer's dementia chronic Essential tremor chronic Low back pain chronic Lumbar radiculopathy chronic [facility] Work Phone: evaluation note* Diagnosis Onset Date Resolution Status Myalgia acute Abnormality of gait and mobility chronic Alzheimer's dementia chronic Essential tremor chronic Low back pain chronic Lumbar radiculopathy chronic Bleeding hemorrhoids acute [facility] Work Phone: evaluation note* Diagnosis Onset Date Resolution Status Bleeding hemorrhoids acute Bleeding hemorrhoids acute Bleeding hemorrhoids acute Hyperammonemia acute Thoracic compression fracture acute Abnormality of gait and mobility chronic Alzheimer's dementia chronic Essential tremor chronic Low back pain chronic Lumbar radiculopathy chronic [facility] Work Phone: evaluation note* Diagnosis Onset Date Resolution Status Bleeding hemorrhoids acute Bleeding hemorrhoids acute Bleeding hemorrhoids acute Hyperammonemia acute Thoracic compression fracture acute Abnormality of gait and mobility chronic Alzheimer's dementia chronic Essential tremor chronic Low back pain chronic Lumbar radiculopathy chronic Myalgia acute Rib pain on right side acute Low back pain chronic [facility] Work Phone: Evaluation note* Diagnosis Onset Date Resolution Status Bleeding hemorrhoids acute Bleeding hemorrhoids acute Bleeding hemorrhoids acute Hyperammonemia acute Thoracic compression fracture acute Abnormality of gait and mobility chronic Alzheimer's dementia chronic Essential tremor chronic Low back pain chronic Lumbar radiculopathy chronic Myalgia acute Rib pain on right side acute Low back pain chronic Rib pain on right side acute Thoracic compression fracture acute [facility] Work Phone: Evaluation note* Diagnosis Right posterior capsular opacification- Primary After-cataract, unspecified 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 Dry eye syndrome of both eyes Pseudophakia Lens replaced by other means [facility] Onset Date Resolution Status Hyperammonemia acute Thoracic compression fracture acute Abnormality of gait and mobility chronic Alzheimer's dementia chronic Essential tremor chronic Low back pain chronic Lumbar radiculopathy chronic Myalgia acute Rib pain on right side acute Low back pain chronic Rib pain on right side acute Thoracic compression fracture acute [facility] Work Phone: Evaluation note* Diagnosis Onset Date Resolution Status Myalgia acute Right shoulder pain acute Lumbar radiculopathy chronic Acute bilateral low back pain without sciatica acute Calcific tendonitis of left shoulder acute [facility] Work Phone: Evaluation note* Diagnosis Onset Date Resolution Status Acute bilateral low back pain without sciatica acute Calcific tendonitis of left shoulder acute Dementia acute Folate deficiency acute Hyperammonemia acute Myalgia acute Right shoulder pain acute Essential tremor chronic Low back pain chronic [facility] Work Phone: Evaluation note* Diagnosis Onset Date Resolution Status Acute bilateral low back pain without sciatica acute Calcific tendonitis of left shoulder acute Dementia acute Folate deficiency acute Hyperammonemia acute Myalgia acute Right shoulder pain acute Essential tremor chronic Low back pain chronic Left shoulder pain acute [facility] Work Phone: Evaluation note* Diagnosis Onset Date Resolution Status Hyperammonemia acute Thoracic compression fracture acute Abnormality of gait and mobility chronic Alzheimer's dementia chronic Essential tremor chronic Low back pain chronic Lumbar radiculopathy chronic Myalgia acute Rib pain on right side acute Low back pain chronic Rib pain on right side acute Thoracic compression fracture acute Myalgia acute Right shoulder pain acute Lumbar radiculopathy chronic [facility] Work Phone: Hospital Discharge instructions Additional Instructions Acute on chronic T11 compression fracture found on imagings. CT scan head and neck lumbar spine negative. Urine negative for infection. Lab's are all stable.[facility] Work Phone: Hospital Discharge instructionsAmbulatory Orders* Orthopedics Location: None Selected [facility] Work Phone: Hospital Discharge instructions Additional Instructions Ice to facial contusion and left hip contusion 6-10 times a day Tylenol for painWooster [facility] Work Phone: Summary Purpose Family History No Family History Records Found Relationship Condition Age at Onset Recorded Date/T sergio father Cerebrovascular accident (CVA) Unknown grandfather Cerebrovascular accident (CVA) Unknown Advance Directives No Advanced Directives Records Found Advance Directive Response Recorded Date/ Time Living Will No October 07, 2021 6:51pm Power of Boarder Machine No October 07 6:51pm Advance Directive Response Recorded Date/ Time Living Will No November 21 10:33pm Power of Boarder Machine No November 21, 2021 10:33pm Advance Directive Response Recorded Date/ Time Living Will No January 18 7:14pm Power of Boarder Machine No January 18, 2022 7:14pm Advance Directive Response Recorded Date/ Time Living Will No January 31 11:42pm Power of Boarder Machine No January 31, 2022 11:42pm Advance Directive Response Recorded Date/ Time Living Will No February 13 10:50pm Power of Boarder Machine No February 13, 2022 10:50pm Advance Directive Response Recorded Date/ Time Living Will No April 15 9:50pm Power of Boarder Machine No April 15, 2022 9:50pm Advance Directive Response Recorded Date/ Time Living Will No April 15 10:50pm Power of Boarder Machine No April 15, 2022 10:50pm Advance Directive Response Recorded Date/ Time Living Will No August 27, 2022 1 0:18pm Power of Boarder Machine No August 27, 2022 10:18pm Advance Directive Response Recorded Date/ Time Living Will No September 09, 2022 11:13am Power of Boarder Machine No September 09 11:13am Advance Directive Response Recorded Date/ Time Living Will No November 09 9:20am Power of Boarder Machine No November 09, 2 023 9:20am Advance Directive Response Recorded Date/ Time Living Will No December 15, 2022 9:43am Power of Boarder Machine No November 9:43am Advance Directive Response Recorded Date/ Time Living Will No December 15, 2022 8:43am Power of Boarder Machine No November 8:43am Advance Directive Response Recorded Date/ Time Living Will No June 28, 2023 4:46pm Power of Boarder Machine No June 27 4:46pm Advance Directive Response Recorded Date/ Time Living Will No June 28, 2023 4:46pm Do you have a Healthcare Power of Boarder Machine? No June 28, 2023 4:46pm Chief Complaint Chief Complaint Description Start Date left hip pain Preliminary chief co mplaint data, not yet signed by the author as of Instructions Instruction Description Start Date Please follow-up with Primar Care Physician or Automobile Wrecker for treatment or adjustment of medication regarding elevated blood pressure. Assessments There may be information available, but it has not been provided by the sender. Review of System There may be information available, but it has not been provided by the sender. History of Present Illness There may be information available, but it has not been provided by the sender. Chief Complaint and Reason for Visit Chief Complaint LONGTERM LAB WOR K Chief Complaint FALL Chief Complaint FALL fall Chief Complaint FALL fall LAB WORK LAB WORK LONGTERM LAB WORK LONGTERM LAB WORK Chief Complaint FALL fall LAB WORK LAB WORK LONGTERM LAB WORK LONGTERM LAB WORK fall Chief Complaint FALL fall LAB WORK LAB WORK LONGTERM LAB WORK LONGTERM LAB WORK LONGTERM LABWORK fall Chief Complaint FALL fall LAB WORK LAB WORK LONGTERM LAB WORK LONGTERM LAB WORK LONGTERM LABWORK LONGTERM LABWORK LONGTERM LABWORK fall LONGTERM LAB WORK Chief Complaint FALL fall LAB WORK LAB WORK LONGTERM LAB WORK LONGTERM LAB WORK LONGTERM LABWORK LONGTERM LABWORK LONGTERM LABWORK fall LONGTERM LAB WORK LAB WORK LAB WORK LABWORK Chief Complaint FALL fall LAB WORK LAB WORK LONGTERM LAB WORK LONGTERM LAB WORK LONGTERM LABWORK LONGTERM LABWORK LONGTERM LABWORK fall LONGTERM LAB WORK LAB WORK LAB WORK LABWORK LONGTERM LAB WORK LONGTERM LAB WORK Chief Complaint FALL fall LAB WORK LAB WORK LONGTERM LAB WORK LONGTERM LAB WORK LONGTERM LABWORK LONGTERM LABWORK LONGTERM LABWORK fall LONGTERM LAB WORK LAB WORK LAB WORK LABWORK LONGTERM LAB WORK LONGTERM LAB WORK FALL Chief Complaint FALL fall LAB WORK LAB WORK LONGTERM LAB WORK LONGTERM LAB WORK LONGTERM LABWORK LONGTERM LABWORK LONGTERM LABWORK fall LONGTERM LAB WORK LAB WORK LAB WORK LABWORK LONGTERM LAB WORK LONGTERM LAB WORK FALL fall Chief Complaint LONGTERM LAB WOR K LONGTERM LAB WORK LONGTERM LABWORK LONGTERM LABWORK LONGTERM LABWORK fall LONGTERM LAB WORK LAB WORK LAB WORK LABWORK LONGTERM LAB WORK LONGTERM LAB WORK FALL fall LONGTERM LAB WORK fall Chief Complaint LONGTERM LAB WOR K LONGTERM LAB WORK FALL fall LONGTERM LAB WORK fall LONGTERM LABWORK LABWORK LONGTERM LABWORK altered mental status Chief Complaint LONGTERM LAB WOR K LONGTERM LAB WORK FALL fall LONGTERM LAB WORK fall LONGTERM LABWORK LABWORK LONGTERM LABWORK LONGTERM LABWORK altered mental status Chief Complaint LONGTERM LAB WOR K LONGTERM LAB WORK FALL fall LONGTERM LAB WORK fall LONGTERM LABWORK LABWORK LONGTERM LABWORK LONGTERM LABWORK LONGTERM LAB WORK altered mental status Chief Complaint FALL fall LONGTERM LAB WORK fall LONGTERM LABWORK LABWORK LONGTERM LABWORK LONGTERM LABWORK LONGTERM LAB WORK altered mental status LONGTERM LABWORK Chief Complaint FALL fall LONGTERM LAB WORK fall LONGTERM LABWORK LABWORK LONGTERM LABWORK LONGTERM LABWORK LONGTERM LAB WORK altered mental status LONGTERM LABWORK LABWORK Chief Complaint LABWORK LONGTERM LABWORK LONGTERM LABWORK LONGTERM LAB WORK altered mental status LONGTERM LABWORK LABWORK LONGTERM LABWORK LONGTERM LAB WORK LONGTERM LABWORK LONGTERM LABWORK Chief Complaint LABWORK LONGTERM LABWORK LONGTERM LABWORK LONGTERM LAB WORK altered mental status LONGTERM LABWORK LABWORK LONGTERM LABWORK LONGTERM LAB WORK LONGTERM LABWORK LABWORK LONGTERM LABWORK Chief Complaint LABWORK LONGTERM LABWORK LONGTERM LABWORK LONGTERM LAB WORK altered mental status LONGTERM LABWORK LABWORK LONGTERM LABWORK LABWORK LONGTERM LAB WORK LONGTERM LABWORK LABWORK LONGTERM LABWORK LONGTERM LABWORK LONGTERM LAB WORK Chief Complaint LABWORK LONGTERM LABWORK LONGTERM LABWORK LONGTERM LAB WORK altered mental status LONGTERM LABWORK LABWORK LONGTERM LABWORK LABWORK LONGTERM LAB WORK LONGTERM LABWORK LABWORK LONGTERM LABWORK LONGTERM LABWORK LONGTERM LAB WORK LABWORK Chief Complaint LONGTERM LABWORK LONGTERM LAB WORK altered mental status LONGTERM LABWORK LABWORK LONGTERM LABWORK LABWORK LONGTERM LAB WORK LONGTERM LABWORK LABWORK LONGTERM LABWORK LONGTERM LABWORK LONGTERM LAB WORK LABWORK LONGTERM LABWORK RECURRENT FALLS, ALZHEIMER'S LONGTERM LAB WORK Reason for Visit Low back pain Myalgia Chief Complaint LONGTERM LABWORK LONGTERM LAB WORK altered mental status LONGTERM LABWORK LABWORK LONGTERM LABWORK LABWORK LONGTERM LAB WORK LONGTERM LABWORK LABWORK LONGTERM LABWORK LONGTERM LABWORK LONGTERM LAB WORK LABWORK LONGTERM LABWORK RECURRENT FALLS, ALZHEIMER'S LONGTERM LAB WORK LONGTERM LAB WORK Reason for Visit Myalgia Abnormality of gait and mobility Alzheimer's dementia Essential tremor Low back pain Lumbar radiculopathy Chief Complaint LONGTERM LABWORK LABWORK LONGTERM LAB WORK LONGTERM LABWORK LABWORK LONGTERM LABWORK LONGTERM LABWORK LONGTERM LAB WORK LABWORK LONGTERM LABWORK RECURRENT FALLS, ALZHEIMER'S LONGTERM LAB WORK LONGTERM LAB WORK LONGTERM LAB WORK LONGTERM LAB WORK LABWORK NECK BACK PAIN LONGTERM LABWORK LONGTERM LAB WORK LONGTERM LAB WORK freq falls LABWORK Reason for Visit Myalgia Abnormality of gait and mobility Alzheimer's dementia Essential tremor Low back pain Lumbar radiculopathy Chief Complaint LONGTERM LAB WOR K LONGTERM LABWORK LABWORK LONGTERM LABWORK LONGTERM LABWORK LONGTERM LAB WORK LABWORK LONGTERM LABWORK RECURRENT FALLS, ALZHEIMER'S LONGTERM LAB WORK LONGTERM LAB WORK LONGTERM LAB WORK LONGTERM LAB WORK LABWORK NECK BACK PAIN LONGTERM LABWORK LONGTERM LAB WORK LONGTERM LAB WORK LONGTERM LAB WORK freq falls LABWORK HEMORRHOIDS LABWORK HEMORRHOIDECTOMY HEMORRHOIDECTOMY Reason for Visit Myalgia Abnormality of gait and mobility Alzheimer's dementia Essential tremor Low back pain Lumbar radiculopathy Bleeding hemorrhoids Chief Complaint LONGTERM LAB WOR K LONGTERM LAB WORK LABWORK NECK BACK PAIN LONGTERM LABWORK LONGTERM LAB WORK LONGTERM LAB WORK LONGTERM LAB WORK freq falls LABWORK HEMORRHOIDS LABWORK HEMORRHOIDECTOMY HEMORRHOIDECTOMY LONGTERM LAB WORK LABWORK HEMORRHOIDECTOMY 09/14 LABWORK S/P HEMORRHOIDECTOMY 4 M FU Reason for Visit Bleeding hemorrhoids Bleeding hemorrhoids Bleeding hemorrhoids Hyperammonemia Thoracic compression fracture Abnormality of gait and mobility Alzheimer's dementia Essential tremor Low back pain Lumbar radiculopathy Chief Complaint LONGTERM LAB WOR K LABWORK NECK BACK PAIN LONGTERM LABWORK LONGTERM LAB WORK LONGTERM LAB WORK LONGTERM LAB WORK freq falls LABWORK HEMORRHOIDS LABWORK HEMORRHOIDECTOMY HEMORRHOIDECTOMY LONGTERM LAB WORK LABWORK HEMORRHOIDECTOMY 09/14 LABWORK S/P HEMORRHOIDECTOMY 4 M FU TRIGGER POINT INJ eorder Reason for Visit Bleeding hemorrhoids Bleeding hemorrhoids Bleeding hemorrhoids Hyperammonemia Thoracic compression fracture Abnormality of gait and mobility Alzheimer's dementia Essential tremor Low back pain Lumbar radiculopathy Myalgia Rib pain on right side Low back pain Chief Complaint LONGTERM LAB WOR K LONGTERM LAB WORK freq falls LABWORK HEMORRHOIDS LABWORK HEMORRHOIDECTOMY HEMORRHOIDECTOMY LONGTERM LAB WORK LABWORK HEMORRHOIDECTOMY 09/14 LABWORK S/P HEMORRHOIDECTOMY 4 M FU LABWORK TRIGGER POINT INJ eorder THORASIC Room 3 Reason for Visit Bleeding hemorrhoids Bleeding hemorrhoids Bleeding hemorrhoids Hyperammonemia Thoracic compression fracture Abnormality of gait and mobility Alzheimer's dementia Essential tremor Low back pain Lumbar radiculopathy Myalgia Rib pain on right side Low back pain Rib pain on right side Thoracic compression fracture Chief Complaint LABWORK HEMORRHOIDS LABWORK HEMORRHOIDECTOMY HEMORRHOIDECTOMY LONGTERM LAB WORK LABWORK HEMORRHOIDECTOMY 09/14 LABWORK S/P HEMORRHOIDECTOMY 4 M FU LABWORK TRIGGER POINT INJ eorder THORASIC Room 3 fall LONGTERM LABWORK Reason for Visit Bleeding hemorrhoids Bleeding hemorrhoids Bleeding hemorrhoids Hyperammonemia Thoracic compression fracture Abnormality of gait and mobility Alzheimer's dementia Essential tremor Low back pain Lumbar radiculopathy Myalgia Rib pain on right side Low back pain Rib pain on right side Thoracic compression fracture Chief Complaint HEMORRHOIDS LABWORK HEMORRHOIDECTOMY HEMORRHOIDECTOMY LONGTERM LAB WORK LABWORK HEMORRHOIDECTOMY 09/14 LABWORK S/P HEMORRHOIDECTOMY 4 M FU LABWORK TRIGGER POINT INJ eorder THORASIC Room 3 fall LONGTERM LABWORK LONGTERM LAB WORK Reason for Visit Bleeding hemorrhoids Bleeding hemorrhoids Bleeding hemorrhoids Hyperammonemia Thoracic compression fracture Abnormality of gait and mobility Alzheimer's dementia Essential tremor Low back pain Lumbar radiculopathy Myalgia Rib pain on right side Low back pain Rib pain on right side Thoracic compression fracture Chief Complaint 4 M FU LABWORK TRIGGER POINT INJ eorder THORASIC Room 3 fall LONGTERM LABWORK LONGTERM LAB WORK LONGTERM LAB WORK LONGTERM LABWORK Reason for Visit Hyperammonemia Thoracic compression fracture Abnormality of gait and mobility Alzheimer's dementia Essential tremor Low back pain Lumbar radiculopathy Myalgia Rib pain on right side Low back pain Rib pain on right side Thoracic compression fracture Chief Complaint 4 M FU EORDER LONGTERM LAB WORK THORACIC SPINE room 4 falls Reason for Visit Myalgia Right shoulder pain Lumbar radiculopathy Acute bilateral low back pain without sciatica Calcific tendonitis of left shoulder Chief Complaint 4 M FU EORDER LONGTERM LAB WORK THORACIC SPINE room 4 LABWORK falls Reason for Visit Myalgia Right shoulder pain Lumbar radiculopathy Acute bilateral low back pain without sciatica Calcific tendonitis of left shoulder Chief Complaint 4 M FU EORDER LONGTERM LAB WORK THORACIC SPINE room 4 LABWORK falls NEW ONSET A-FIB, TACHYCARDIA Reason for Visit Myalgia Right shoulder pain Lumbar radiculopathy Acute bilateral low back pain without sciatica Calcific tendonitis of left shoulder Chief Complaint LONGTERM LAB WOR K THORACIC SPINE room 4 LABWORK falls LABWORK NEW ONSET A-FIB, TACHYCARDIA Trigger point injections Reason for Visit Acute bilateral low back pain without sciatica Calcific tendonitis of left shoulder Dementia Folate deficiency Hyperammonemia Myalgia Right shoulder pain Essential tremor Low back pain Chief Complaint LONGTERM LAB WOR K THORACIC SPINE room 4 LABWORK falls LABWORK NEW ONSET A-FIB, TACHYCARDIA Trigger point injections RIGHT SHOULDER LONGTERM LAB WORK LONGTERM LAB WORK Reason for Visit Acute bilateral low back pain without sciatica Calcific tendonitis of left shoulder Dementia Folate deficiency Hyperammonemia Myalgia Right shoulder pain Essential tremor Low back pain Left shoulder pain Chief Complaint 4 M FU LABWORK TRIGGER POINT INJ eorder THORASIC Room 3 fall LONGTERM LABWORK LONGTERM LAB WORK LONGTERM LAB WORK LONGTERM LABWORK 4 M FU EORDER Reason for Visit Hyperammonemia Thoracic compression fracture Abnormality of gait and mobility Alzheimer's dementia Essential tremor Low back pain Lumbar radiculopathy Myalgia Rib pain on right side Low back pain Rib pain on right side Thoracic compression fracture Myalgia Right shoulder pain Lumbar radiculopathy Chief Complaint Admit Date LABWORK April 13, 2024 5 :00am 6 M FU/trigger point May 07, 2024 1:44pm LABWORK June 25, 2024 5:00 am TRIGGER POINT INJECTION August 06, 2024 1 :52pm Reason for Visit Admit Date Dementia May 07, 2024 1:44pm Folate deficiency May 07, 2024 1:44pm Myalgia May 07, 2024 1:44pm Right shoulder pain May 07, 2024 1:44pm Essential tremor May 07, 2024 1:44pm Low back pain May 07, 2024 1:44pm Multiple falls August 06, 2024 1:52p m Abnormality of gait and mobility July 1:52pm Chief Complaint Admit Date LABWORK April 13, 2024 5 :00am 6 M FU/trigger point May 07, 2024 1:44pm LABWORK June 25, 2024 5:00 am LONGTERM LAB WORK July 12, 2024 6 :20am TRIGGER POINT INJECTION August 06, 2024 1 :52pm Reason for Visit Admit Date Dementia May 07, 2024 1:44pm Folate deficiency May 07, 2024 1:44pm Myalgia May 07, 2024 1:44pm Right shoulder pain May 07, 2024 1:44pm Essential tremor May 07, 2024 1:44pm Low back pain May 07, 2024 1:44pm Dementia August 06, 2024 1:52p m Multiple falls August 06, 2024 1:52p m Myalgia August 06, 2024 1:52p m Abnormality of gait and mobility July 1:52pm Low back pain August 06, 2024 1:52p m Medications Administered Section Active Administered Medications - up to 3 most recent administrations Medication Order MAR Action Action Date Dose Rate Site PHENYLephrine 2.5 % 1 Drop (AK-DILATE, JANUSZ-SYNEPHRINE) 1 Drop, BOTH EYES, DIRECTED, Starting on Tue12/29/22 at 1300, Until Gregoria 12/30/22 at 0059, Administer for dilation PROTECT FROM LIGHT Given 12/29/2022 1:18 PM EDT 1 Drop proparacaine 0.5 % 1 Drop (ALCAINE) 1 Drop, BOTH EYES, DIRECTED, Starting on Tue12/29/22 at 1300, Until Gregoria 12/30/22 at 0059, Administer for pneumo tonometry, tonopen tonometry, or pachymetry. In the event of a proparacaine shortage, administer tetracaine 0.5% ophthalmic drops 1 drop in the left eye as directed for pneumo tonometry, tonopen tonometry, or pachymetry Given 12/29/2022 1:18 PM EDT 1 Drop tropicamide 1 % 1 Drop (MYDRIACYL) 1 Drop, BOTH EYES, DIRECTED, Starting on Tue12/29/22 at 1300, Until Gregoria 12/30/22 at 0059, Administer for dilation Given 12/29/2022 1:18 PM EDT 1 Drop Additional Source Comments INFORMATION SOURCE (unrecogn ized section and content) DATE CREATED AUTHOR 10/28/2018 [facility] DATE CREATED AUTHOR AUTHOR'S ORGANIZ ATION 05/04/2022 [facility] DATE CREATED AUTHOR AUTHOR'S ORGANIZ ATION 01/07/2023 [facility] DATE CREATED AUTHOR AUTHOR'S ORGANIZ ATION 08/23/2024 [facility] Reason for Visit (unrecogniz ed section and content) Reason For Visit Description New - 1st visit with practice Preliminary reason f or visit data, not yet signed by the author as of left hip pain Reason Comments Dry Eye Syndrome Follow Up Goals (unrecognized section and content) Goals may be documented in a n alternate sectionGoals may be documented in an alternate sectionGoals may be documented in an alternate sectionGoals may be documented in an alternate sectionGoals may be documented in an alternate sectionGoals may be documented in an alternate sectionGoals may be documented in an alternate sectionGoals may be documented in an alternate sectionGoals may be documented in an alternate sectionGoals may be documented in an alternate sectionGoals may be documented in an alternate sectionGoals may be documented in an alternate sectionGoals may be documented in an alternate sectionGoals may be documented in an alternate sectionGoals may be documented in an alternate sectionGoals may be documented in an alternate sectionGoals may be documented in an alternate sectionGoals may be documented in an alternate sectionGoals may be documented in an alternate sectionGoals may be documented in an alternate sectionGoals may be documented in an alternate sectionGoals may be documented in an alternate sectionGoals may be documented in an alternate sectionGoals may be documented in an alternate sectionGoals may be documented in an alternate sectionGoals may be documented in an alternate sectionGoals may be documented in an alternate sectionGoals may be documented in an alternate sectionGoals may be documented in an alternate sectionGoals may be documented in an alternate sectionGoals may be documented in an alternate sectionGoals may be documented in an alternate sectionGoals may be documented in an alternate sectionGoals may be documented in an alternate sectionGoals may be documented in an alternate sectionGoals may be documented in an alternate sectionGoals may be documented in an alternate sectionGoals may be documented in an alternate sectionGoals may be documented in an alternate sectionGoals may be documented in an alternate section Care Teams (unrecognized sec tion and content) Team Status: Active Member Role Status Dates Dr. Claudia Anderson MD Primary Care Provider Active Team Status: Active Member Role Status Dates Dr. Claudia Anderson MD Primary Care Provider Active Start: April 13, 2024 Dr. Claudia DYSON MD Attending Provider Active Start: April 13, 2024 Team Status: Inactive Member Role Status Dates Dr. Claudia Anderson MD Primary Care Provider Active Start: May 07, 2024 End: May 07, 2024 Dr. Medardo Mayo MD Attending Provider Active Start: May 07, 2024 End: May 07, 2024 Dr. Medardo Mayo MD Referring Provider Active Start: May 07, 2024 End: May 07, 2024 Team Status: Active Member Role Status Dates Dr. Claudia Anderson MD Primary Care Provider Active Start: June 25, 2024 Dr. Claudia DYSON MD Attending Provider Active Start: June 25, 2024 Team Status: Active Member Role Status Dates Dr. Claudia Anderson MD Primary Care Provider Active Start: July 12, 2024 Dr. True DYSON MD Attending Provider Active Start: July 12, 2024 Team Status: Active Member Role Status Dates Dr. Claudia Anderson MD Primary Care Provider Active Start: August 06, 2024 Dr. Kendra Bran MD Attending Provider Active Start: August 06, 2024 Dr. Kendra Bran MD Referring Provider Active Start: August 06, 2024 Team Status: Inactive Member Role Status Dates Dr. Claudia Anderson MD Primary Care Provider Active Start: August 06, 2024 End: August 06, 2024 Dr. Claudia Anderson MD Referring Provider Active Start: August 06, 2024 End: August 06, 2024 Dr. Medardo Mayo MD Attending Provider Active Start: August 06, 2024 End: August 06, 2024 Team Status: Active Member Role Status Dates Dr. Addi Tatum DO Primary Care Provider Active Team Status: Inactive Member Role Status Dates Dr. Claudia Anderson MD Referring Provider Active Dr. Medardo Mayo MD Attending Provider Active Dr. Addi Tatum DO Primary Care Provider Active Team Status: Inactive Member Role Status Dates Dr. Addi Tatum DO Primary Care Provider Active Dr. Claudia DYSON MD Attending Provider Active Team Status: Inactive Member Role Status Dates Dr. Addi Tatum DO Primary Care Provider Active Dr. David Ocampo DO Attending Provider, Emergency Provide r Active Team Status: Active Member Role Status Dates Dr. Addi Tatum DO Primary Care Provider Active Dr. Claudia DYSON MD Attending Provider Active Team Status: Inactive Member Role Status Dates Dr. Claudia Anderson MD Primary Care Provider Active Dr. Claudia Anderson MD Attending Provider Active Team Status: Inactive Member Role Status Dates Dr. Claudia Anderson MD Primary Care Provider Active Dr. Oniel Valente , Attending Provider, Emergency Provider Active Team Status: Inactive Member Role Status Dates Dr. Addi Tatum DO Primary Care Provider Active Dr. Raoul Da Silva DO Attending Provider, Emergency Pr ovider Active Team Status: Inactive Member Role Status Dates Dr. Addi Tatum DO Primary Care Provider Active Dr. Claudia Anderson MD Attending Provider Active Team Status: Inactive Member Role Status Dates Dr. Addi Tatum DO Primary Care Provider Active Dr. Laura Malave MD Attending Provider, Emergency Provider Active Team Status: Active Member Role Status Dates Dr. Addi Tatum DO Primary Care Provider Active Dr. Claudia Anderson MD Attending Provider Active Team Status: Inactive Member Role Status Dates Dr. Addi Tatum DO Primary Care Provider Active Dr. David Ocampo DO Emergency Provider Active Team Status: Inactive Member Role Status Dates Dr. Medardo Mayo MD Attending Provider, Referring Provider Active Dr. Addi Tatum DO Primary Care Provider Active Team Status: Inactive Member Role Status Dates Dr. Addi Tatum DO Primary Care Provider Active Dr. Medardo Mayo MD Attending Provider, Referring Provider Active Team Status: Inactive Member Role Status Dates Dr. Addi Tatum DO Primary Care Provider Active Medardo DYSON MD Attending Provider Active Team Status: Inactive Member Role Status Dates Dr. Claudia Anderson MD Primary Care Provider Active Dr. Raoul Da Silva DO Attending Provider, Emergency Pr ovider Active Team Status: Active Member Role Status Dates Dr. Claudia Anderson MD Primary Care Provider Active Dr. Claudia DYSON MD Attending Provider Active Team Status: Inactive Member Role Status Dates Dr. Claudia Anderson MD Primary Care Provider Active Dr. Claudia DYSON MD Attending Provider Active Team Status: Inactive Member Role Status Dates Dr. Claudia Anderson MD Primary Care Provider, Referring Provider Active Dr. Wilyl Mckeon MD Attending Provider Active Team Status: Active Member Role Status Dates Dr. Claudia Anderson MD Primary Care Provider Active Dr. Willy Mckeon MD Attending Pr ovider, Referring Provider, Other Provider Active Team Status: Inactive Member Role Status Dates Dr. Claudia Anderson MD Primary Care Provider Active Dr. Willy Mckeon MD Attending Provider, Referr ing Provider Active Team Status: Inactive Member Role Status Dates Dr. Addi Tatum DO Referring Provider Active Dr. Medardo Mayo MD Attending Provider Active Dr. Claudia Anderson MD Primary Care Provider Active Team Status: Inactive Member Role Status Dates Dr. Claudia Anderson MD Primary Care Provider, Referring Provider Active Dr. Medardo Mayo MD Attending Provider Active Team Status: Inactive Member Role Status Dates Dr. Claudia Anderson MD Primary Care Provider Active Dr. Medardo Mayo MD Attending Provider, Referring Provider Active Team Status: Inactive Member Role Status Dates Dr. Claudia Anderson MD Primary Care Provider, Referring Provider Active Dr. Piotr Espinal DO Attending Provider Active Team Status: Inactive Member Role Status Dates Dr. Claudia Anderson MD Primary Care Provider Active Dr. Shelton Conway MD Attending Provider Active [employer] Agent Relationship Specialty Start Date End Date Claudia Anderson MD PCP - General Gerontology 09/04/20 Team Status: Inactive Member Role Status Dates Dr. Claudia Anderson MD Primary Care Provider Active Dr. Claudia DYSON MD Attending Provider, Referring Provider Active Team Status: Inactive Member Role Status Dates Dr. Claudia Anderson MD Primary Care Provider Active Dr. Bart Mares MD Emergency Provider Active Team Status: Inactive Member Role Status Dates Dr. Claudia Anderson MD Primary Care Provi janet, Attending Provider, Referring Provider Active Team Status: Inactive Member Role Status Dates Dr. Claudia Anderson MD Primary Care Provider Active Dr. Bart Mares MD Attending Provider, Emergency Provi janet Active Team Status: Inactive Member Role Status Dates Dr. Claudia Anderson MD Primary Care Provider, Referring Provider Active True Rader MD Attending Provider Active Team Status: Inactive Member Role Status Dates Dr. Claudia Anderson MD Primary Care Provider Active Start: August 06, 2024 End: August 06, 2024 Dr. Kendra Bran MD Attending Provider Active Start: August 06, 2024 End: August 06, 2024 Dr. Kendra Bran MD Referring Provider Active Start: August 06, 2024 End: August 06, 2024 Source Comments (unrecognize d section and content) In the event this informatio n is protected by the Federal Confidentiality of Alcohol and Drug Abuse Patient Records regulations: The Federal rules restrict any use of the information to criminally investigate or prosecute any alcohol or drug abuse patient.[facility] FOR RECORDS PERTAINING TO PATIENTS WHO ARE OR HAVE BEEN ENROLLED IN A CHEMICAL DEPENDENCY/SUBSTANCEABUSE PROGRAM, SOME INFORMATION MAY BE OMITTED. This clinical summary was aggregated from multiple sources. Caution should be exercised in using it in the provision of clinical care. This summary normalizes information from multiple sources, and as a consequence, information in this document may materially change the coding, format and clinical context of patient data. In addition, data may be omitted in some cases. CLINICAL DECISIONS SHOULD BE BASED ON THE PRIMARY CLINICAL RECORDS. [facility] provides no warranty or guarantee of the accuracy or completeness of information in this document.
--- OUTSIDE RECORDS SUMMARY | 2024-08-27 04:40 | XMS RPT_ITS | CCD ---
Author Organization [facility] Care Team Providers Care Yard Coupler Name Role Phone Prieto PANDA, Jeramie Owen [...] Provider Dr. Willy Mckeon Referring Provider [phone] Dr. Willy Mckeon Other Provider Dr. Claudia Anderson Primary Care Provider Dr. Claudia Felder Referring Provider Unavailable Dr. Willy Mckeon Attending Provider Dr. Willy Mckeon Referring Provider Dr. Willy Mckeon Other Provider Dr. Addi Tatum Referring Provider Dr. Medardo Mayo Attending Provider [phone] Medardo Mayo Referring Provider [phone] Piotr Espinal Attending Provider [phone] Dr. Shelton Conway Attending Provider [phone] Kamran PANDA, Claudia Pulido Primary Care Provider SABRINA WELCH Attending Unavailable GUDLA, CLAUDIA D Primary Care Unavailable SABRINA WELCH Attending Unavailable SABRINA WELCH Referring Unavailable KAMRAN, CLAUDIA Pulido Primary Care Unavailable Dr. Addi Tatum Referring Provider [phone] Medardo Mayo Attending Provider [phone] Codeine Drug Allergy 9 nausea and vomiting [facility] Work Phone: (20 sources) Codeine; Translations: [CODEINE] Drug Allergy 5 Unknown [facility] (1 source) Codeine Drug Allergy 5 [facility] Repository Medications Current Medications Medication Drug Class(es) [...] and 1 tablet in PM BUSPIRONE HCL [id number] Kenia Jones LPN Comment on above: Increase [...] day. 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 Start: End: 3 take [...] MG TABS 1 tablet daily MEMANTINE HCL [id number] Kenia Jones LPN Comment on above: 2 [...] 1 tablet 3 times daily OXYBUTYNIN CHLORIDE [id number] Kenia Jones LPN Comment on above: Take [...] MG TABS 1 tablet daily TRAZODONE HCL [id number] Kenia Jones LPN Comment on above: One [...] Start: 01-18-2022 take 1 capsule by [facility] once daily Venlafaxine (Effexor Xr) 75 mg [...] 10:27am Start: 02-28-2023 take 1 capsule by [facility] once daily Linaclotide (Linzess) 72 mcg capsule [...] MG TABS 1 tablet daily SERTRALINE HCL [id number] Kenia Jones LPN sodium phosphate,mono-dibasic (FLEET ENEMA [...] 06-29-2023 Episodic Other aftercare (1 source) Other long-term (current) drug therapy; Translations: [Other emt intermediate (current) drug therapy] Onset: 06-27-2024 Episodic Other [...] Facility Brain without Contraston Brain without Contrast [facility] Imaging Services [address], [place] [id number] Brain without Contrast MR#: [id number] Acct: [id number] Name: CANDI AGUILAR ANN Rep #: [id number] : 1950 F 73 From: Kavon Graham MD PCP: Claudia Anderson MD Status: REG CLI Study: Brain without Contrast Date of Exam: 08/22/24 Exam# [id number] Ordering Dr: Medardo Mayo MD PROCEDURE: BRAIN [...] collections. The paranasal sinuses are clear. Absent match-e-be-nash-she-wish band ocular lenses. Partial left mastoid effusion. MRI/Brain without Contrast IMPRESSION: No acute intracranial abnormalities. Reading Location: [id number] CC: Dr. 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 [place], [place], [address] Lumbar Spine 2 or 3 Viewson 08-06-2024 Lumbar Spine 2 or 3 Views [facility] Imaging Services [address] [place], [place] [address] Lumbar Spine 2 or 3 Views MR#: [id number] Acct: [id number] Name: CANDI AGUILAR Rep #: [id number] : 1950 F 73 From: Manuel Rojas MD PCP: Claudia Anderson MD Status: REG CLI Study: Lumbar Spine 2 or 3 Views Date of Exam: Exam# [id number] Ordering Dr: Kendra Bran MD PROCEDURE: LUMBAR SPINE 2 OR 3 VIEWS 08/06/2024 REASON FOR EXAM: SPONDYLOSIS WITHOUT MYELOPATHY OR RADICULOPATHY, LUMBAR REGION TECHNIQUE: 2 view(s) of the lumbar spine COMPARISON: 05/27/2023 FINDINGS: 5 fcr-lca-cjouiuc lumbar vertebral body types identified. No acute fracture or malalignment. There is again note of a remote moderate T11 compression deformity with anterior wedging, unchanged. L1-2 moderate disc space narrowing L2-3 jbaz-pq-lxetbwfz disc space narrowing with degenerative endplate change L3-4 dcsgvjdh-sf-keanlt disc space narrowing with degenerative endplate change L4-5 iqzf-pj-ldqfijze disc space narrowing and degenerative endplate change Lower lumbar facet degenerative changes RAD/Lumbar Spine 2 or 3 Views IMPRESSION: No significant interval change in appearance of multilevel spondylosis/discogeni c change as above. Reading Location: [id number] CC: Dr. 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 Medardo hawkins MD Age/Sex: 73/F [place] [facility] [place] Status: Signed [...] anterior subluxation of L4 and L5.??? Diffuse fnjw-df-pljfmmpb spondylitic changes.??? Bilateral multilevel vertebral facet arthropathy [...] multilevel de (more content not included)... Normal [facility] Bilirubin directOrdered By: True Holguin on 07-12-2024 Bilirubin.direct [Mass/Vol] mg/dL 0.00-0.30 [facility] Bilirubin, totalOrdered By: True Holguin on 07-12-2024 Bilirubin [Mass/Vol] mg/dL 0.00-1.30 [facility] CBC-Complete Blood Cnt No Di ffon 07-12-2024 Erythrocyte distribution width (RBC) [Ratio] 13.4 % Normal 11.6-14.6 [facility] Comment on above: Performed By: #### L 500.3400, L100.0500 #### [facility] [address] [place], [place], [address] Hematocrit (Bld) [Volume fraction] 35.0 % Low 37-47 [facility] Comment on above: Performed By: #### L 500.3400, L100.0500 #### [facility] [address] [place], [address] Hemoglobin (Bld) [Mass/Vol] 10.9 g/dL Low 12.0-15.0 [facility] Comment on above: Performed By: #### L 500.3400, L100.0500 #### [facility] [address] [place], [address] MCH (RBC) [Entitic mass] 32.8 pg High 27.0-32.0 [facility] Comment on above: Performed By: #### L 500.3400, L100.0500 #### [facility] [address] [place], [address] MCHC (RBC) [Mass/Vol] 31.1 g/dL Low 32-36 [facility] Comment on above: Performed By: #### L 500.3400, L100.0500 #### [facility] [address] [place], [address] MCV (RBC) [Entitic vol] 105.4 fL High 81-99 [facility] Comment on above: Performed By: #### L 500.3400, L100.0500 #### [facility] [address] [place], [address] Platelet mean volume (Bld) [Entitic vol] 10.4 fL Normal 6.2-12.0 [facility] Comment on above: Performed By: #### L 500.3400, L100.0500 #### [facility] [address] [place], [address] Platelets (Bld) [#/Vol] 223 10*3/uL Normal 150-450 [facility] Comment on above: Performed By: #### L 500.3400, L100.0500 #### [facility] [address] [place], [address] RBC (Bld) [#/Vol] 3.32 10*6/uL Low 4.2-5.4 [facility] Comment on above: Performed By: #### L 500.3400, L100.0500 #### [facility] [address] [place], [address] RDW SD 52.5 fl High 35.1-43.9 [facility] Comment on above: Performed By: #### L 500.3400, L100.0500 #### [facility] [address] [place], [address] WBC (Bld) [#/Vol] 6.3 10*3/uL Normal 4.4-11.0 [facility] Comment on above: Performed By: #### L 500.3400, L100.0500 #### [facility] [address] [place], [address] Erythrocyte distribution wid th ratioOrdered By: True Holguin on 07-12-2024 Erythrocyte distribution width (RBC) [Ratio] 13.4 % 11.6-14.6 [facility] Erythrocyte distribution wid th standard deviationOrdered By: True Holguin on 07-12-2024 Erythrocyte distribution width (RBC) [Ratio] 52.5 fl High 35.1-43.9 [facility] Hematocrit Auto (Bld) [Volum e fraction]Ordered By: True Holguin on 07-12-2024 Hematocrit (Bld) [Volume fraction] 35.0 % Low 37-47 [facility] Hemoglobin measurementOrdere d By: True Holguin on 07-12-2024 Hemoglobin (Bld) [Mass/Vol] 10.9 g/dL Low 12.0-15.0 [facility] - Chemistry and C hemistry - challengeOrdered By: True Holguin on 07-12-2024 AST [Catalytic activity/Vol] 17 U/L <32 [facility] Liver Profileon 07-12-2024 Albumin [Mass/Vol] 3.2 g/dL Low 3.4-4.8 [facility] Comment on above: Performed By: #### L 500.3400, L100.0500 #### [facility] [address] [place], [address] ALK PHOS 112 U/L High 35-104 [facility] Comment on above: Performed By: #### L 500.3400, L100.0500 #### [facility] [address] [place], [address] ALT [Catalytic activity/Vol] U/L Normal <=34 [facility] Comment on above: Performed By: #### L 500.3400, L100.0500 #### [facility] [address] [place], [address] AST [Catalytic activity/Vol] 17 U/L Normal <=31 [facility] Comment on above: Performed By: #### L 500.3400, L100.0500 #### [facility] [address] [place], [address] D BILI < 0.08 Normal 0.00-0.30 [facility] Comment on above: Performed By: #### L 500.3400, L100.0500 #### [facility] [address] [place], [address] Globulin (S) [Mass/Vol] 2.5 g/dL Normal 2.2-4.2 [facility] Comment on above: Performed By: #### L 500.3400, L100.0500 #### [facility] [address] [place], [address] T BILI < 0.15 Normal 0.00-1.30 [facility] Comment on above: Performed By: #### L 500.3400, L100.0500 #### [facility] [address] [place], [address] T PROT 5.7 g/dL Low 5.9-8.4 [facility] Comment on above: Performed By: #### L 500.3400, L100.0500 #### [facility] [place], [address] MCV (mean corpuscular volume ) determinationOrdered By: True Holguin on 07-12-2024 MCV (RBC) [Entitic vol] 105.4 fL High 81-99 [facility] Mean corpuscular hemoglobin (MCH) determinationOrdered By: True Holguin on 07-12-2024 MCH (RBC) [Entitic mass] 32.8 pg High 27.0-32.0 [facility] Mean corpuscular hemoglobin concentration (MCHC) determinationOrdered By: True Holguin on 07-12-2024 MCHC (RBC) [Mass/Vol] 31.1 g/dL Low 32-36 [facility] Mean platelet volume determi nationOrdered By: True Holguin on 07-12-2024 Platelet mean volume (Bld) [Entitic vol] 10.4 fL 6.2-12.0 [facility] Platelet countOrdered By: Roni Holguin on 07-12-2024 Platelets (Bld) [#/Vol] 223 10*3/uL 150-450 [facility] RBC Auto (Bld) [#/Vol]Ordere d By: True Holguin on 07-12-2024 RBC (Bld) [#/Vol] 3.32 10*6/uL Low 4.2-5.4 [facility] Serum globulin measurementOr dered By: True Holguin on 07-12-2024 Globulin (S) [Mass/Vol] 2.5 g/dL 2.2-4.2 [facility] Serum or plasma alanine dacosta otransferase (ALT) measurementOrdered By: True Holguin on 07-12-2024 ALT [Catalytic activity/Vol] U/L <35 [facility] Serum or plasma albumin moriah urement (mass/volume)Ordered By: True Holguin on 07-12-2024 Albumin [Mass/Vol] 3.2 g/dL Low 3.4-4.8 [facility] Serum or plasma alkaline boo sphatase measurementOrdered By: True Holguin on 07-12-2024 ALP [Catalytic activity/Vol] 112 U/L High 35-104 [facility] Total proteinOrdered By: Aisha Holguin on 07-12-2024 Protein [Mass/Vol] 5.7 g/dL Low 5.9-8.4 [facility] White blood cell (WBC) count Ordered By: True Holguin on 07-12-2024 WBC (Bld) [#/Vol] 6.3 10*3/uL 4.4-11.0 [facility] Vitamin D,25 Hydroxyon 06-25 Vitamin D 25-OH 10.3 ng/mL Low 30-100 [facility] Comment on above: Order Comment: 214 Result Comment: Stephanie min D Status Deficiency: <20 ng/mL (50nmol/L) Insufficiency: 20-30 ng/mL (50-75 nmol/L) Sufficiency: 30-100 ng/mL (75-250 nmol/L) Toxicity: >100 ng/mL (>250 nmol/L) Performed By: #### L 506.1001 #### [facility] [address] [place] [address]. [place], [place], [address] Neurology Visit Reporton Neurology Visit Report [facility] [address], [address] [place] [id number] OFFICE VISIT Date of Service: 05/07/24 MR#: [id number] Acct: [id number] Name: CANDI AGUILAR ANN Rep #: [id number] : 1950 Provider: Dr. Medardo hawkins MD Age/Sex: 73/F Location: [facility] Status: Signed with Addenda ADDENDUM by Dr. [...] anterior subluxation of L4 and L5.??? Diffuse qldq-dj-eydleloz spondylitic changes.??? Bilateral multilevel vertebral facet arthropathy in the lower lumbar spine.??? Old compression fracture T11. Preservation of the normal lumbar lordosis. DISC SPACES:??? No acute findings.??? Disc spaces are maintained. GASTROINTESTINAL TRACT:??? Unremarkable as visualized.??? Included bari (more content not included)... Normal [facility] Bilirubin directOrdered By: Claudia Anderson on 04-13-2024 Bilirubin.direct [Mass/Vol] 0.08 mg/dL 0.00-0.30 [facility] Bilirubin, totalOrdered By: Claudia Anderson on 04-13-2024 Bilirubin [Mass/Vol] 0.20 mg/dL 0.20-1.00 [facility] Comment on above: For patients on eltr ombopag therapy, use of Dimension Assaria TBIL is not recommended. Blood manual differential co mment interpretation (narrative result)Ordered By: Claudia Anderson on 04-13-2024 Manual differential comment Anant (Bld) [Interp] COMMENT [facility] Comment on above: PLT ESTIMATE - PLT S LIGHT DECREASE. CBC-Complete Blood Cnt No Di ffon 04-13-2024 PLT TNP Normal 150-450 [facility] Comment on above: Order Comment: Result Comment: Michele miller note: For this sample, a platelet estimate is provided rather than a platelet count due to platelet clumping. Other parameters associated with this sample are not affected by platelet clumping. If a more accurate platelet count is required, a redraw of the patient will be necessary. Performed By: #### L 500.3400, L100.0500 #### [facility] [address] [place], [address] Erythrocyte distribution width (RBC) [Ratio] 12.9 % Normal 11.6-14.6 [facility] Comment on above: Order Comment: Performed By: #### L 500.3400, L100.0500 #### [facility] [address] [place], [address] Hematocrit (Bld) [Volume fraction] 39.3 % Normal 37-47 [facility] Comment on above: Order Comment: Performed By: #### L 500.3400, L100.0500 #### [facility] [address] [place], [address] Hemoglobin (Bld) [Mass/Vol] 12.4 g/dL Normal 12.0-15.0 [facility] Comment on above: Order Comment: 214-1 Performed By: #### L 500.3400, L100.0500 #### [facility] [address] [place], [address] MCH (RBC) [Entitic mass] 33.4 pg High 27.0-32.0 [facility] Comment on above: Order Comment: 214-1 Performed By: #### L 500.3400, L100.0500 #### [facility] [address] [place], [address] MCHC (RBC) [Mass/Vol] 31.6 g/dL Low 32-36 [facility] Comment on above: Order Comment: 214-1 Performed By: #### L 500.3400, L100.0500 #### [facility] [address] [place], [address] MCV (RBC) [Entitic vol] 105.9 fL High 81-99 [facility] Comment on above: Order Comment: 214-1 Performed By: #### L 500.3400, L100.0500 #### [facility] [address] [place], [address] Platelet mean volume (Bld) [Entitic vol] 11.2 fL Normal 6.2-12.0 [facility] Comment on above: Order Comment: 214-1 Performed By: #### L 500.3400, L100.0500 #### [facility] [address] [place], [address] RBC (Bld) [#/Vol] 3.71 10*6/uL Low 4.2-5.4 [facility] Comment on above: Order Comment: 214-1 Performed By: #### L 500.3400, L100.0500 #### [facility] [address] [place], [address] RDW SD 50.0 fl High 35.1-43.9 [facility] Comment on above: Order Comment: Performed By: #### L 500.3400, L100.0500 #### [facility] [address] [place], [address] WBC (Bld) [#/Vol] 5.5 10*3/uL Normal 4.4-11.0 [facility] Comment on above: Order Comment: Performed By: #### L 500.3400, L100.0500 #### [facility] [address] [place], [address] Differential Commenton 04-13 SMEAR COMMENT COMMENT Normal [facility] Comment on above: Order Comment: Result Comment: PLT ESTIMATE - PLT SLIGHT DECREASE. Performed By: #### L 500.3400, L100.0500 #### [facility] [address] [place], [address] Erythrocyte distribution wid th ratioOrdered By: Claudia Anderson on 04-13-2024 Erythrocyte distribution width (RBC) [Ratio] 12.9 % 11.6-14.6 [facility] Erythrocyte distribution wid th standard deviationOrdered By: Claudia Anderson on 04-13-2024 Erythrocyte distribution width (RBC) [Ratio] 50.0 fl High 35.1-43.9 [facility] Hematocrit Auto (Bld) [Volum e fraction]Ordered By: Claudia Anderson on 04-13-2024 Hematocrit (Bld) [Volume fraction] 39.3 % 37-47 [facility] Hemoglobin measurementOrdere d By: Claudia Anderson on 04-13-2024 Hemoglobin (Bld) [Mass/Vol] 12.4 g/dL 12.0-15.0 [facility] - Chemistry and C hemistry - challengeOrdered By: Claudia Anderson on 04-13-2024 AST [Catalytic activity/Vol] 14 U/L Low 15-37 [facility] Liver Profileon 04-13-2024 Albumin [Mass/Vol] 2.7 g/dL Low 3.2-5.0 [facility] Comment on above: Order Comment: 214-1 Performed By: #### L 500.3400, L100.0500 #### [facility] [address] [place], [address] ALK P 93 U/L Normal 45-117 [facility] Comment on above: Order Comment: 214-1 Performed By: #### L 500.3400, L100.0500 #### [facility] [address] [place], [address] ALT [Catalytic activity/Vol] 11 U/L Low 13-56 [facility] Comment on above: Order Comment: - Performed By: #### L 500.3400, L100.0500 #### [facility] [address] [place], [address] AST [Catalytic activity/Vol] 14 U/L Low 15-37 [facility] Comment on above: Order Comment: - Performed By: #### L 500.3400, L100.0500 #### [facility] [address] [place], [address] Bilirubin [Mass/Vol] 0.20 mg/dL Normal 0.20-1.00 [facility] Comment on above: Order Comment: Result Comment: For patients on eltrombopag therapy, use of Dimension Assaria TBIL is not recommended. Performed By: #### L 500.3400, L100.0500 #### [facility] [address] [place], [address] Bilirubin.direct [Mass/Vol] 0.08 mg/dL Normal 0.00-0.30 [facility] Comment on above: Order Comment: - Performed By: #### L 500.3400, L100.0500 #### [facility] [address] [place], [address] Globulin (S) [Mass/Vol] 2.8 g/dL Normal 2.2-4.2 [facility] Comment on above: Order Comment: - Performed By: #### L 500.3400, L100.0500 #### [facility] [address] [place], [address] T PROT 5.5 g/dL Low 6.4-8.2 [facility] Comment on above: Order Comment: - Performed By: #### L 500.3400, L100.0500 #### [facility] [address] [place], [address] MCV (mean corpuscular volume ) determinationOrdered By: Claudia Anderson on 04-13-2024 MCV (RBC) [Entitic vol] 105.9 fL High 81-99 [facility] Mean corpuscular hemoglobin (MCH) determinationOrdered By: Claudia Anderson on 04-13-2024 MCH (RBC) [Entitic mass] 33.4 pg High 27.0-32.0 [facility] Mean corpuscular hemoglobin concentration (MCHC) determinationOrdered By: Claudia Anderson on 04-13-2024 MCHC (RBC) [Mass/Vol] 31.6 g/dL Low 32-36 [facility] Mean platelet volume determi nationOrdered By: Claudia Anderson on 04-13-2024 Platelet mean volume (Bld) [Entitic vol] 11.2 fL 6.2-12.0 [facility] Platelet countOrdered By: Harmeet Anderson on 04-13-2024 Platelet count TNP [facility] Comment on above: Test not performedPl ease [...] RBC (Bld) [#/Vol] 3.71 10*6/uL Low 4.2-5.4 [facility] Serum globulin measurementOr dered By: Claudia Anderson on 04-13-2024 Globulin (S) [Mass/Vol] 2.8 g/dL 2.2-4.2 [facility] Serum or plasma alanine dacosta otransferase (ALT) measurementOrdered By: Claudia Anderson on 04-13-2024 ALT [Catalytic activity/Vol] 11 U/L Low 13-56 [facility] Serum or plasma albumin moriah urement (mass/volume)Ordered By: Claudia Anderson on 04-13-2024 Albumin [Mass/Vol] 2.7 g/dL Low 3.2-5.0 [facility] Serum or plasma alkaline boo sphatase measurementOrdered By: Claudia Anderson on 04-13-2024 ALP [Catalytic activity/Vol] 93 U/L 45-117 [facility] Total proteinOrdered By: Po Anderson on 04-13-2024 Protein [Mass/Vol] 5.5 g/dL Low 6.4-8.2 [facility] Valproic Acid (Depakene) Lev coral 04-13-2024 VALPROIC ACID 45 ug/mL Low 50-100 [facility] Comment on above: Order Comment: - Performed By: #### L 500.3400, L100.0500 #### [facility] [address] [place], [place], [address] White blood cell (WBC) count Ordered By: Claudia Anderson on 04-13-2024 WBC (Bld) [#/Vol] 5.5 10*3/uL 4.4-11.0 [facility] Thyroid Stim Hormone (TSH)on 02-17-2024 TSH 2.260 uIU/mL Normal 0.358-3.740 [facility] Comment on above: Order Comment: 214- Performed By: #### L 500.3400, L100.0500 #### [facility] [address] [place], [place], [address] Neurology Visit Reporton Neurology Visit Report [facility] [address], [address] [place] [address] OFFICE VISIT Date of Service: 01/25/24 MR#: [id number] Acct: [id number] Name: CANDI AGUILAR Rep #: [id number] : 1950 Provider: Dr. Medardo hawkins MD Age/Sex: 73/F [place] [facility] [place] Status: Signed [...] Performing Provider: Medardo Mayo MD Performing Location: [facility] (more content not included)... Normal [facility] Thyroid Stim Hormone (TSH)on 01-17-2024 TSH 2.540 uIU/mL Normal 0.358-3.740 [facility] Comment on above: Order Comment: 214.1 Performed By: #### L 501.9520 #### [facility] [address] [place], [address] CBC-Complete Blood Cnt No Di ffon 01-12-2024 Erythrocyte distribution width (RBC) [Ratio] 13.0 % Normal 11.6-14.6 [facility] Comment on above: Order Comment: 214.1 Performed By: #### L 500.3400, L100.0500 #### [facility] [address] [place], [address] Hematocrit (Bld) [Volume fraction] 37.3 % Normal 37-47 [facility] Comment on above: Order Comment: 214.1 Performed By: #### L 500.3400, L100.0500 #### [facility] [facility] [address] [place], [address] Hemoglobin (Bld) [Mass/Vol] 11.5 g/dL Low 12.0-15.0 [facility] Comment on above: Order Comment: 214.1 Performed By: #### L 500.3400, L100.0500 #### [facility] [address] [place], [address] MCH (RBC) [Entitic mass] 32.5 pg High 27.0-32.0 [facility] Comment on above: Order Comment: 214.1 Performed By: #### L 500.3400, L100.0500 #### [facility] [address] [place], [address] MCHC (RBC) [Mass/Vol] 30.8 g/dL Low 32-36 [facility] Comment on above: Order Comment: 214.1 Performed By: #### L 500.3400, L100.0500 #### [facility] [address] [place], [address] MCV (RBC) [Entitic vol] 105.4 fL High 81-99 [facility] Comment on above: Order Comment: 214.1 Performed By: #### L 500.3400, L100.0500 #### [facility] [address] [place], [address] Platelet mean volume (Bld) [Entitic vol] 10.4 fL Normal 6.2-12.0 [facility] Comment on above: Order Comment: 214.1 Performed By: #### L 500.3400, L100.0500 #### [facility] [address] [place], [address] Platelets (Bld) [#/Vol] 239 10*3/uL Normal 150-450 [facility] Comment on above: Order Comment: 214.1 Performed By: #### L 500.3400, L100.0500 #### [facility] [address] [place], [address] RBC (Bld) [#/Vol] 3.54 10*6/uL Low 4.2-5.4 [facility] Comment on above: Order Comment: 214.1 Performed By: #### L 500.3400, L100.0500 #### [facility] [address] [place], [address] RDW SD 50.4 fl High 35.1-43.9 [facility] Comment on above: Order Comment: 214.1 Performed By: #### L 500.3400, L100.0500 #### [facility] [address] [place], [address] WBC (Bld) [#/Vol] 7.1 10*3/uL Normal 4.4-11.0 [facility] Comment on above: Order Comment: 214.1 Performed By: #### L 500.3400, L100.0500 #### [facility] [address] [place], [address] Liver Profileon 01-12-2024 Albumin [Mass/Vol] 2.9 g/dL Low 3.2-5.0 [facility] Comment on above: Order Comment: 214.1 Performed By: #### L 500.3400, L100.0500 #### [facility] [address] [place], [address] ALK P 72 U/L Normal 45-117 [facility] Comment on above: Order Comment: 214.1 Performed By: #### L 500.3400, L100.0500 #### [facility] [address] [place], [address] ALT [Catalytic activity/Vol] 10 U/L Low 13-56 [facility] Comment on above: Order Comment: 214.1 Performed By: #### L 500.3400, L100.0500 #### [facility] [address] [place], [address] AST [Catalytic activity/Vol] 12 U/L Low 15-37 [facility] Comment on above: Order Comment: 214.1 Performed By: #### L 500.3400, L100.0500 #### [facility] [address] [place], [address] Bilirubin [Mass/Vol] 0.20 mg/dL Normal 0.20-1.00 [facility] Comment on above: Order Comment: 214.1 Result Comment: For patients on eltrombopag therapy, use of Dimension Assaria TBIL is not recommended. Performed By: #### L 500.3400, L100.0500 #### [facility] [address] [place], [address] Bilirubin.direct [Mass/Vol] 0.07 mg/dL Normal 0.00-0.30 [facility] Comment on above: Order Comment: 214.1 Performed By: #### L 500.3400, L100.0500 #### [facility] [address] [place], [address] Globulin (S) [Mass/Vol] 2.5 g/dL Normal 2.2-4.2 [facility] Comment on above: Order Comment: 214.1 Performed By: #### L 500.3400, L100.0500 #### [facility] [address] [place], [address] T PROT 5.4 g/dL Low 6.4-8.2 [facility] Comment on above: Order Comment: 214.1 Performed By: #### L 500.3400, L100.0500 #### [facility] [address] [place], [address] Valproic Acid (Depakene) Lev coral 01-12-2024 VALPROIC ACID 15 ug/mL Low 50-100 [facility] Comment on above: Order Comment: 214.1 Performed By: #### L 500.3400, L100.0500 #### [facility] [address] [place], [address] Upper Ext Joint Only(Routine )on 01-04-2024 Upper Ext Joint Only(Routine) [facility] Imaging Services [address] [place] [address] Upper Ext Joint Only(Routine) MR#: [id number] Acct: [id number] Name: CANDI AGUILAR ANN Rep #: [id number] : 1950 F 73 From: Mk López MD PCP: Claudia Anderson MD Status: REG CLI Study: Upper Ext Joint Only(Routine) Date of Exam: 1 Exam# [id number] Ordering Dr: True Rader MD [id number] STUDY: MRI RIGHT SHOULDER REASON FOR EXAM: [...] 15:07 EDT Reading Location ID and State: [facility] / [place] , Service support , CC: Dr. True Rader MD; Claudia Anderson MD Valve Repairer: Signed Normal [facility] CBC-Complete Blood Cnt No Di ffon 12-12-2023 Erythrocyte distribution width (RBC) [Ratio] 13.3 % Normal 11.6-14.6 [facility] Comment on above: Order Comment: 214.1 Performed By: #### L 100.0500, L501.8100, L501.9520, L500.4050 #### [facility] [address] [place], [address] Hematocrit (Bld) [Volume fraction] 36.4 % Low 37-47 [facility] Comment on above: Order Comment: 214.1 Performed By: #### L 100.0500, L501.8100, L501.9520, L500.4050 #### [facility] [address] [place], [address] Hemoglobin (Bld) [Mass/Vol] 11.2 g/dL Low 12.0-15.0 [facility] Comment on above: Order Comment: 214.1 Performed By: #### L 100.0500, L501.8100, L501.9520, L500.4050 #### [facility] [address] [place], [address] MCH (RBC) [Entitic mass] 32.7 pg High 27.0-32.0 [facility] Comment on above: Order Comment: 214.1 Performed By: #### L 100.0500, L501.8100, L501.9520, L500.4050 #### [facility] [address] [place], [address] MCHC (RBC) [Mass/Vol] 30.8 g/dL Low 32-36 [facility] Comment on above: Order Comment: 214.1 Performed By: #### L 100.0500, L501.8100, L501.9520, L500.4050 #### [facility] [address] [place], [address] MCV (RBC) [Entitic vol] 106.4 fL High 81-99 [facility] Comment on above: Order Comment: 214.1 Performed By: #### L 100.0500, L501.8100, L501.9520, L500.4050 #### [facility] [address] [place], [address] Platelet mean volume (Bld) [Entitic vol] 10.3 fL Normal 6.2-12.0 [facility] Comment on above: Order Comment: 214.1 Performed By: #### L 100.0500, L501.8100, L501.9520, L500.4050 #### [facility] [address] [place], [address] Platelets (Bld) [#/Vol] 222 10*3/uL Normal 150-450 [facility] Comment on above: Order Comment: 214.1 Performed By: #### L 100.0500, L501.8100, L501.9520, L500.4050 #### [facility] [address] [place], [address] RBC (Bld) [#/Vol] 3.42 10*6/uL Low 4.2-5.4 [facility] Comment on above: Order Comment: 214.1 Performed By: #### L 100.0500, L501.8100, L501.9520, L500.4050 #### [facility] [address] [place], [address] RDW SD 51.8 fl High 35.1-43.9 [facility] Comment on above: Order Comment: 214.1 Performed By: #### L 100.0500, L501.8100, L501.9520, L500.4050 #### [facility] [address] [place], [address] WBC (Bld) [#/Vol] 6.5 10*3/uL Normal 4.4-11.0 [facility] Comment on above: Order Comment: 214.1 Performed By: #### L 100.0500, L501.8100, L501.9520, L500.4050 #### [facility] [address] [place], [address] Comprehensive Metabolic Prof ilon 12-12-2023 Albumin [Mass/Vol] 2.8 g/dL Low 3.2-5.0 [facility] Comment on above: Order Comment: 214.1 Performed By: #### L 100.0500, L501.8100, L501.9520, L500.4050 #### [facility] [address] [place], [address] Albumin/Globulin [Mass ratio] 1.0 {ratio} Normal 0.9-2.4 [facility] Comment on above: Order Comment: 214.1 Performed By: #### L 100.0500, L501.8100, L501.9520, L500.4050 #### [facility] [address] [place], [address] ALK P 84 U/L Normal 45-117 [facility] Comment on above: Order Comment: 214.1 Performed By: #### L 100.0500, L501.8100, L501.9520, L500.4050 #### [facility] [address] [place], [address] ALT [Catalytic activity/Vol] 13 U/L Normal 13-56 [facility] Comment on above: Order Comment: 214.1 Performed By: #### L 100.0500, L501.8100, L501.9520, L500.4050 #### [facility] [address] [place], [address] AST [Catalytic activity/Vol] 12 U/L Low 15-37 [facility] Comment on above: Order Comment: 214.1 Performed By: #### L 100.0500, L501.8100, L501.9520, L500.4050 #### [facility] [address] [place], [address] Bilirubin [Mass/Vol] 0.20 mg/dL Normal 0.20-1.00 [facility] Comment on above: Order Comment: 214.1 Result Comment: For patients on eltrombopag therapy, use of Dimension Assaria TBIL is not recommended. Performed By: #### L 100.0500, L501.8100, L501.9520, L500.4050 #### [facility] [address] [place], [address] BUN/CRE 9.9 RATIO Low 10-20 [facility] Comment on above: Order Comment: 214.1 Performed By: #### L 100.0500, L501.8100, L501.9520, L500.4050 #### [facility] [address] [place], [address] CA,Total 8.7 mg/dL Normal 8.5-10.1 [facility] Comment on above: Order Comment: 214.1 Performed By: #### L 100.0500, L501.8100, L501.9520, L500.4050 #### [facility] [address] [place], [address] Chloride [Moles/Vol] 106 mmol/L Normal 98-107 [facility] Comment on above: Order Comment: 214.1 Performed By: #### L 100.0500, L501.8100, L501.9520, L500.4050 #### [facility] [address] [place], [address] CO2 [Moles/Vol] 28.0 mmol/L Normal 21.0-32.0 [facility] Comment on above: Order Comment: 214.1 Performed By: #### L 100.0500, L501.8100, L501.9520, L500.4050 #### [facility] [address] [place], [address] Creatinine [Mass/Vol] 0.80 mg/dL Normal 0.55-1.02 [facility] Comment on above: Order Comment: 214.1 Result Comment: The validity of the calculated GFR GFRAA in patients over 70 years has not been determined. Clinical correlation is essential. Performed By: #### L 100.0500, L501.8100, L501.9520, L500.4050 #### [facility] [address] [place], [address] EST GFR - AA 90 mL/min Normal >60 [facility] Comment on above: Order Comment: 214.1 Result Comment: Afri can Turkish GFR Calc Performed By: #### L 100.0500, L501.8100, L501.9520, L500.4050 #### [facility] [address] [place], [address] GAP 7 Normal 5-15 [facility] Comment on above: Order Comment: 214.1 Performed By: #### L 100.0500, L501.8100, L501.9520, L500.4050 #### [facility] [address] [place], [address] GFR/1.73 sq M.predicted among non-blacks MDRD (S/P/Bld) [Vol rate/Area] 74 mL/min/{1.73_m2} Normal >60 [facility] Comment on above: Order Comment: 214.1 Result Comment: Non- GFR Calc Performed By: #### L 100.0500, L501.8100, L501.9520, L500.4050 #### [facility] [address] [place], [address] Globulin (S) [Mass/Vol] 2.7 g/dL Normal 2.2-4.2 [facility] Comment on above: Order Comment: 214.1 Performed By: #### L 100.0500, L501.8100, L501.9520, L500.4050 #### [facility] [address] [place], [address] Glucose [Mass/Vol] 80 mg/dL Normal 74-106 [facility] Comment on above: Order Comment: 214.1 Performed By: #### L 100.0500, L501.8100, L501.9520, L500.4050 #### [facility] [address] [place], [address] Potassium [Moles/Vol] 4.4 mmol/L Normal 3.5-5.1 [facility] Comment on above: Order Comment: 214.1 Performed By: #### L 100.0500, L501.8100, L501.9520, L500.4050 #### [facility] [address] [place], [address] Sodium [Moles/Vol] 141 mmol/L Normal 136-145 [facility] Comment on above: Order Comment: 214.1 Performed By: #### L 100.0500, L501.8100, L501.9520, L500.4050 #### [facility] [address] [place], [address] T PROT 5.5 g/dL Low 6.4-8.2 [facility] Comment on above: Order Comment: 214.1 Performed By: #### L 100.0500, L501.8100, L501.9520, L500.4050 #### [facility] [address] [place], [address] Urea nitrogen [Mass/Vol] 8 mg/dL Normal 7-18 [facility] Comment on above: Order Comment: 214.1 Performed By: #### L 100.0500, L501.8100, L501.9520, L500.4050 #### [facility] [address] [place], [address] Thyroid Stim Hormone (TSH)on 12-12-2023 TSH 1.920 uIU/mL Normal 0.358-3.740 [facility] Comment on above: Order Comment: 214.1 Performed By: #### L 100.0500, L501.8100, L501.9520, L500.4050 #### [facility] [address] [place], [address] Valproic Acid (Depakene) Lev coral 12-12-2023 VALPROIC ACID 8 ug/mL Low 50-100 [facility] Comment on above: Order Comment: 214.1 Performed By: #### L 100.0500, L501.8100, L501.9520, L500.4050 #### [facility] [address] [place], [address] Orthopedic Visit Reporton Orthopedic Visit Report [facility] [address] [place] [address] [address] [place] [address] OFFICE VISIT Date of Service: 11/17/23 MR#: [id number] Acct: [id number] Name: JEFFJT Rep #: [id number] : 1950 Provider: Dr. True subramanian MD Age/Sex: 73/F [place] [facility] [place] Status: Signed [...] Performing Provider: True Rader MD Performing Location: [facility] Administered by: True Rader MD on 11/17/23 11:19 Dose Route Admin Location Dispensed Lot Number Expiration Date [place] Man ufacturer 80 mg intra-articular right shoulder 2 mL [id number] 06/19/25 2564-0529-27 [facility] [place] [place] [facility] Comments: Bupivacaine 0.25% 4cc lot : [id number] exp : 05/19/24 [place] : 5736-3216-20 Date cc: * Signed Intake Vital Signs [...] dibucaine 1 % rectal ointment 1 applic GA TID PRN hemorrhoids 09/28/22 11/17/23 Rx #[id number] [...] you fallen in the past year?: Yes [facility] Medical History Left shoulder pain Hx of hemorrhoids Bladder disease Lives in skilled nursing Bipolar disorder Thyroid disease Insomnia Arthritis Back pain Essential tremor Chronic constipation Gastric reflux Non-smoker Dementia High cholesterol Asthma Anxiety Alzheimer's dementia Surgical History History of hysterectomy Family History Father CVA (cerebral vascular accident) Father No problems noted. Grandfather CVA (cerebral vascular accident) Social History current occupation (more content not included)... Normal [facility] Ammoniaon 11-08-2023 Ammonia (P) [Mass/Vol] ug/dL Low [facility] Comment on above: Order Comment: 214.1 Performed By: #### L 500.3400, L100.0500 #### [facility] [address] [place], [place], [address] Folates, (Folic Acid)on 10-20 FOLATES 2.60 ng/mL Low 3.1-55.4 [facility] Comment on above: Order Comment: 214.1 N Performed By: #### L 500.3400, L100.0500 #### [facility] [address] [place], [address] Ammoniaon 11-03-2023 Ammonia (P) [Moles/Vol] 26.0 umol/L Normal [facility] Comment on above: Performed By: #### L 500.3400, L100.0500 #### [facility] [address] [place], [place], [address] Neurology Visit Reporton Neurology Visit Report [facility] [address], [address] [place], [place] [address] OFFICE VISIT Date of Service: 11/03/23 MR#: [id number] Acct: [id number] Name: CANDI AGUILAR Rep #: [id number] : 1950 Provider: Dr. Medardo hawkins MD Age/Sex: 73/F [place] [facility] [place] Status: Signed HPI [facility] Chief Complaint: Details: Interim History: Candi returns [...] anterior subluxation of L4 and L5.??? Diffuse xplc-dg-hmmbojue spondylitic changes.??? Bilateral multilevel vertebral facet arthropathy [...] Minimal retropul (more content not included)... Normal [facility] CBC-Complete Blood Cnt No Di ffon 10-12-2023 Erythrocyte distribution width (RBC) [Ratio] 12.7 % Normal 11.6-14.6 [facility] Comment on above: Order Comment: 214.1 Performed By: #### L 500.3400, L100.0500 #### [facility] [address] [place], [address] Hematocrit (Bld) [Volume fraction] 37.6 % Normal 37-47 [facility] Comment on above: Order Comment: 214.1 Performed By: #### L 500.3400, L100.0500 #### [facility] [address] [place], [address] Hemoglobin (Bld) [Mass/Vol] 11.8 g/dL Low 12.0-15.0 [facility] Comment on above: Order Comment: 214.1 Performed By: #### L 500.3400, L100.0500 #### [facility] [address] [place], [address] MCH (RBC) [Entitic mass] 32.6 pg High 27.0-32.0 [facility] Comment on above: Order Comment: 214.1 Performed By: #### L 500.3400, L100.0500 #### [facility] [address] [place], [address] MCHC (RBC) [Mass/Vol] 31.4 g/dL Low 32-36 [facility] Comment on above: Order Comment: 214.1 Performed By: #### L 500.3400, L100.0500 #### [facility] [address] [place], [address] MCV (RBC) [Entitic vol] 103.9 fL High 81-99 [facility] Comment on above: Order Comment: 214.1 Performed By: #### L 500.3400, L100.0500 #### [facility] [address] [place], [address] Platelet mean volume (Bld) [Entitic vol] 10.3 fL Normal 6.2-12.0 [facility] Comment on above: Order Comment: 214.1 Performed By: #### L 500.3400, L100.0500 #### [facility] [address] [place], [address] Platelets (Bld) [#/Vol] 243 10*3/uL Normal 150-450 [facility] Comment on above: Order Comment: 214.1 Performed By: #### L 500.3400, L100.0500 #### [facility] [address] [place], [address] RBC (Bld) [#/Vol] 3.62 10*6/uL Low 4.2-5.4 [facility] Comment on above: Order Comment: 214.1 Performed By: #### L 500.3400, L100.0500 #### [facility] [address] [place], [address] RDW SD 48.7 fl High 35.1-43.9 [facility] Comment on above: Order Comment: 214.1 Performed By: #### L 500.3400, L100.0500 #### [facility] [address] [place], [address] WBC (Bld) [#/Vol] 5.2 10*3/uL Normal 4.4-11.0 [facility] Comment on above: Order Comment: 214.1 Performed By: #### L 500.3400, L100.0500 #### [facility] [address] [place], [address] Lipid Profileon 10-12-2023 Cholesterol [Mass/Vol] 159 mg/dL Normal 200 [facility] Comment on above: Order Comment: 214.1 Result Comment: <200 mg/dL Desirable 200-240 mg/dL Borderline >240 mg/dL High Risk Performed By: #### L 500.3400, L100.0500 #### [facility] [address] [place], [address] Cholesterol in HDL [Mass/Vol] 57 mg/dL Normal [facility] Comment on above: Order Comment: 214.1 Result Comment: The drugs N-Acetylcysteine and Metamizole may falsely depress this assay. Reference Range HDL <40 mg/dL Low HDL Cholesterol HDL >or= 60 mg/dL High HDL Cholesterol Performed By: #### L 500.3400, L100.0500 #### [facility] [address] [place], [address] Cholesterol in LDL [Mass/Vol] 66 mg/dL Normal 0-130 [facility] Comment on above: Order Comment: 214.1 Performed By: #### L 500.3400, L100.0500 #### [facility] [address] [place], [address] Cholesterol in VLDL [Mass/Vol] 36 mg/dL Normal 5-40 [facility] Comment on above: Order Comment: 214.1 Performed By: #### L 500.3400, L100.0500 #### [facility] [address] [place], [address] Triglyceride [Mass/Vol] 181 mg/dL Normal [facility] Comment on above: Order Comment: 214.1 Result Comment: The drugs N-Acetylcysteine and Metamizole may falsely depress this assay. Serum Triglycerides Reference Interval Normal <150 mg/dL Borderline high 150 - 199 mg/dL High 200 - 499 mg/dL Very High > or = 500 mg/dL Performed By: #### L 500.3400, L100.0500 #### [facility] [address] [place], [address] Valproic Acid (Depakene) Lev coral 10-12-2023 VALPROIC ACID 14 ug/mL Low 50-100 [facility] Comment on above: Order Comment: 214.1 Performed By: #### L 500.3400, L100.0500 #### [facility] [address] [place], [address] Absolute lymphocyte countOrd ered By: Claudia Anderson on 07-18-2023 Lymphocytes Auto (Unsp spec) [#/Vol] 4.10 10*3/uL 0.83-4.51 [facility] Automated lymphocyte count a s percentage of total leukocytesOrdered By: Claudia Anderson on 07-18-2023 Lymphocytes/100 WBC Auto (Unsp spec) 45.5 % 19-41 [facility] Basophil percentageOrdered B y: Claudia Anderson on 07-18-2023 Basophils/100 WBC (Bld) 0.4 % 0-1 [facility] Eosinophils/100 WBC (Bld) 2.3 % 0-5 [facility] Hemoglobin (Bld) [Mass/Vol] 11.6 g/dL 12.0-15.0 [facility] Monocytes/100 WBC (Bld) 8.2 % 0-10 [facility] Neutrophils (Bld) [#/Vol] 3.9 10*3/uL 2.0-7.7 [facility] Neutrophils/100 WBC (Bld) 42.9 % 47-70 [facility] WBC (Bld) [#/Vol] 9.0 10*3/uL 4.4-11.0 [facility] Determination of erythrocyte mean corpuscular volume (MCV)Ordered By: Claudia Anderson on 07-18-2023 MCV (RBC) [Entitic vol] 106.1 fL 81-99 [facility] Erythrocyte distribution wid th ratioOrdered By: Claudia Anderson on 07-18-2023 Erythrocyte distribution width (RBC) [Ratio] 12.8 % 11.6-14.6 [facility] Erythrocyte distribution wid th standard deviationOrdered By: Claudia Anderson on 07-18-2023 Erythrocyte distribution width (RBC) [Entitic vol] 50.5 fL 35.1-43.9 [facility] Hematocrit Auto (Bld) [Volum e fraction]Ordered By: Claudia Anderson on 07-18-2023 Hematocrit (Bld) [Volume fraction] 36.3 % 37-47 [facility] Immature granulocytes/100 WB C Auto (Bld)Ordered By: Claudia Anderson on 07-18-2023 Immature granulocytes/100 WBC (Bld) 0.700 % 0.0-0.9 [facility] Comment on above: IG% - Immature Granu locytes (promyelocytes, myelocytes and metamyelocytes) > 1% indicates that a LEFT SHIFT is Present. Laboratory - Hematology and Cell countsOrdered By: Claudia Anderson on 07-18-2023 MCH (RBC) [Entitic mass] 33.9 pg 27.0-32.0 [facility] MCHC (RBC) [Mass/Vol] 32.0 g/dL 32-36 [facility] Nucleated RBC/100 WBC (Bld) [Ratio] 0 % 0-5 [facility] Platelet mean volume (Bld) [Entitic vol] 10.4 fL 6.2-12.0 [facility] Platelets (Bld) [#/Vol] 243 10*3/uL 150-450 [facility] RBC Auto (Bld) [#/Vol]Ordere d By: Claudia Anderson on 07-18-2023 RBC (Bld) [#/Vol] 3.42 10*6/uL 4.2-5.4 [facility] Basophil percentageOrdered B y: Claudia Anderson on 07-13-2023 Bilirubin [Mass/Vol] 0.20 mg/dL 0.20-1.00 [facility] Comment on above: For patients on eltr ombopag therapy, use of Dimension Assaria TBIL is not recommended. Hemoglobin (Bld) [Mass/Vol] 12.2 g/dL 12.0-15.0 [facility] Protein [Mass/Vol] 6.3 g/dL 6.4-8.2 [facility] WBC (Bld) [#/Vol] 12.9 10*3/uL 4.4-11.0 [facility] Determination of erythrocyte mean corpuscular volume (MCV)Ordered By: Claudia Anderson on 07-13-2023 MCV (RBC) [Entitic vol] 106.7 fL 81-99 [facility] Direct bilirubinOrdered By: Claudia Anderson on 07-13-2023 Bilirubin.direct [Mass/Vol] 0.07 mg/dL 0.00-0.30 [facility] Erythrocyte distribution wid th ratioOrdered By: Claudia Anderson on 07-13-2023 Erythrocyte distribution width (RBC) [Ratio] 12.6 % 11.6-14.6 [facility] Erythrocyte distribution wid th standard deviationOrdered By: Claudia Anderson on 07-13-2023 Erythrocyte distribution width (RBC) [Entitic vol] 49.8 fL 35.1-43.9 [facility] Hematocrit Auto (Bld) [Volum e fraction]Ordered By: Claudia Anderson on 07-13-2023 Hematocrit (Bld) [Volume fraction] 38.0 % 37-47 [facility] Laboratory - Chemistry and C hemistry - challengeOrdered By: Claudia Anderson on 07-13-2023 ALP [Catalytic activity/Vol] 95 U/L 45-117 [facility] ALT [Catalytic activity/Vol] 16 U/L 13-56 [facility] Globulin (S) [Mass/Vol] 3.3 g/dL 2.2-4.2 [facility] - Hematology and Cell countsOrdered By: Claudia Anderson on 07-13-2023 MCH (RBC) [Entitic mass] 34.3 pg 27.0-32.0 [facility] MCHC (RBC) [Mass/Vol] 32.1 g/dL 32-36 [facility] Platelet mean volume (Bld) [Entitic vol] 10.6 fL 6.2-12.0 [facility] Platelets (Bld) [#/Vol] 260 10*3/uL 150-450 [facility] No Panel InformationOrdered By: Claudia Anderson on 07-13-2023 Valproic Acid (Depakene) Level 30 ug/mL 50-100 [facility] RBC Auto (Bld) [#/Vol]Ordere d By: Claudia Anderson on 07-13-2023 RBC (Bld) [#/Vol] 3.56 10*6/uL 4.2-5.4 [facility] Thin prep Papanicolaou smear with manual screeningOrdered By: Claudia Anderson on 07-13-2023 Thin prep Papanicolaou smear with manual screening 3.0 g/dL 3.2-5.0 [facility] Thin prep Papanicolaou smear with manual screening 11 U/L 15-37 [facility] Basophil percentageOrdered B y: Claudia Anderson on 06-13-2023 Chloride [Moles/Vol] 104 mmol/L 98-107 [facility] Glucose [Mass/Vol] 72 mg/dL 74-106 [facility] Hemoglobin (Bld) [Mass/Vol] 11.1 g/dL 12.0-15.0 [facility] Potassium [Moles/Vol] 4.4 mmol/L 3.5-5.1 [facility] Sodium [Moles/Vol] 139 mmol/L 136-145 [facility] WBC (Bld) [#/Vol] 5.9 10*3/uL 4.4-11.0 [facility] Determination of erythrocyte mean corpuscular volume (MCV)Ordered By: Claudia Anderson on 06-13-2023 MCV (RBC) [Entitic vol] 108.0 fL 81-99 [facility] Erythrocyte distribution wid th ratioOrdered By: Claudia Anderson on 06-13-2023 Erythrocyte distribution width (RBC) [Ratio] 13.6 % 11.6-14.6 [facility] Erythrocyte distribution wid th standard deviationOrdered By: Claudia Anderson on 06-13-2023 Erythrocyte distribution width (RBC) [Entitic vol] 54.8 fL 35.1-43.9 [facility] Hematocrit Auto (Bld) [Volum e fraction]Ordered By: Claudia Anderson on 06-13-2023 Hematocrit (Bld) [Volume fraction] 35.0 % 37-47 [facility] Laboratory - Chemistry and C hemistry - challengeOrdered By: Claudia Anderson on 06-13-2023 CO2 [Moles/Vol] 31.0 mmol/L 21.0-32.0 [facility] Urea nitrogen/Creatinine [Mass ratio] 12.9 mg/mg 10-20 [facility] Laboratory - Hematology and Cell countsOrdered By: Claudia Anderson on 06-13-2023 MCH (RBC) [Entitic mass] 34.3 pg 27.0-32.0 [facility] MCHC (RBC) [Mass/Vol] 31.7 g/dL 32-36 [facility] Platelet mean volume (Bld) [Entitic vol] 10.4 fL 6.2-12.0 [facility] Platelets (Bld) [#/Vol] 219 10*3/uL 150-450 [facility] No Panel InformationOrdered By: Claudia Anderson on 06-13-2023 Estimated GFR (MDRD) Amer 94 mL/min >60 [facility] Comment on above: GFR Calc Estimated GFR (MDRD) Non-Af Amer 78 mL/min >60 [facility] Comment on above: Non- GFR Calc RBC Auto (Bld) [#/Vol]Ordere d By: Claudia Anderson on 06-13-2023 RBC (Bld) [#/Vol] 3.24 10*6/uL 4.2-5.4 [facility] Serum or plasma calcium moriah urement (mass/volume)Ordered By: Claudia Anderson on 06-13-2023 Calcium [Mass/Vol] 8.5 mg/dL 8.5-10.1 [facility] Serum or plasma creatinine m easurement (mass/volume)Ordered By: Claudia Anderson on 06-13-2023 Creatinine [Mass/Vol] 0.77 mg/dL 0.55-1.02 [facility] Comment on above: The validity of the calculated GFR & GFRAA in patients over 70 years has not been determined. Clinical correlation is essential. Serum or plasma urea nitroge n measurement (mass/volume)Ordered By: Claudia Anderson on 06-13-2023 Urea nitrogen [Mass/Vol] 10 mg/dL 7-18 [facility] Thin prep Papanicolaou smear with manual screeningOrdered By: lCaudia Anderson on 06-13-2023 Thin prep Papanicolaou smear with manual screening 4 5-15 [facility] Basophil percentageOrdered B y: Claudia Anderson on 05-30-2023 Chloride [Moles/Vol] 108 mmol/L 98-107 [facility] Glucose [Mass/Vol] 75 mg/dL 74-106 [facility] Potassium [Moles/Vol] 4.9 mmol/L 3.5-5.1 [facility] Sodium [Moles/Vol] 144 mmol/L 136-145 [facility] Laboratory - Chemistry and C hemistry - challengeOrdered By: Claudia Anderson on 05-30-2023 CO2 [Moles/Vol] 34.0 mmol/L 21.0-32.0 [facility] Urea nitrogen/Creatinine [Mass ratio] 10.9 mg/mg 10-20 [facility] No Panel InformationOrdered By: Claudia Anderson on 05-30-2023 Estimated GFR (MDRD) Amer 87 mL/min >60 [facility] Comment on above: GFR Calc Estimated GFR (MDRD) Non-Af Amer 72 mL/min >60 [facility] Comment on above: Non- GFR Calc Serum or plasma calcium moriah urement (mass/volume)Ordered By: Claudia Anderson on 05-30-2023 Calcium [Mass/Vol] 8.5 mg/dL 8.5-10.1 [facility] Serum or plasma creatinine m easurement (mass/volume)Ordered By: Claudia Anderson on 05-30-2023 Creatinine [Mass/Vol] 0.83 mg/dL 0.55-1.02 [facility] Comment on above: The validity of the calculated GFR & GFRAA in patients over 70 years has not been determined. Clinical correlation is essential. Serum or plasma thyroid stim ulating hormone (TSH) measurement (units/volume)Ordered By: Claudia Anderson on 05-30-2023 TSH Qn 2.71 uIU/mL 0.358-3.74 [facility] Serum or plasma urea nitroge n measurement (mass/volume)Ordered By: Claudia Anderson on 05-30-2023 Urea nitrogen [Mass/Vol] 9 mg/dL 7-18 [facility] Thin prep Papanicolaou smear with manual screeningOrdered By: Claudia Anderson on 05-30-2023 Thin prep Papanicolaou smear with manual screening 2 5-15 [facility] Basophil percentageOrdered B y: Claudia Anderson on 04-13-2023 Bilirubin [Mass/Vol] 0.20 mg/dL 0.20-1.00 [facility] Comment on above: For patients on eltr ombopag therapy, use of Dimension Assaria TBIL is not recommended. Hemoglobin (Bld) [Mass/Vol] 11.1 g/dL 12.0-15.0 [facility] Protein [Mass/Vol] 5.6 g/dL 6.4-8.2 [facility] WBC (Bld) [#/Vol] 6.6 10*3/uL 4.4-11.0 [facility] Determination of erythrocyte mean corpuscular volume (MCV)Ordered By: Claudia Anderson on 04-13-2023 MCV (RBC) [Entitic vol] 107.7 fL 81-99 [facility] Direct bilirubinOrdered By: Claudia Anderson on 04-13-2023 Bilirubin.direct [Mass/Vol] mg/dL 0.00-0.30 [facility] Erythrocyte distribution wid th ratioOrdered By: Claudia Anderson on 04-13-2023 Erythrocyte distribution width (RBC) [Ratio] 13.4 % 11.6-14.6 [facility] Erythrocyte distribution wid th standard deviationOrdered By: Claudia Anderson on 04-13-2023 Erythrocyte distribution width (RBC) [Entitic vol] 53.7 fL 35.1-43.9 [facility] Hematocrit Auto (Bld) [Volum e fraction]Ordered By: Claudia Anderson on 04-13-2023 Hematocrit (Bld) [Volume fraction] 36.3 % 37-47 [facility] Laboratory - Chemistry and C hemistry - challengeOrdered By: Claudia Anderson on 04-13-2023 ALP [Catalytic activity/Vol] 74 U/L 45-117 [facility] ALT [Catalytic activity/Vol] 10 U/L 13-56 [facility] Globulin (S) [Mass/Vol] 3.0 g/dL 2.2-4.2 [facility] - Hematology and Cell countsOrdered By: Claudia Anedrson on 04-13-2023 MCH (RBC) [Entitic mass] 32.9 pg 27.0-32.0 [facility] MCHC (RBC) [Mass/Vol] 30.6 g/dL 32-36 [facility] Platelets (Bld) [#/Vol] 197 10*3/uL 150-450 [facility] No Panel InformationOrdered By: Claudia Anderson on 04-13-2023 Valproic Acid (Depakene) Level 52 ug/mL 50-100 [facility] Platelet mean volume Christiano-[facility] ker (Bld) [Entitic vol]Ordered By: Claudia Anderson on 04-13-2023 Platelet mean volume (Bld) [Entitic vol] 10.4 fL 6.2-12.0 [facility] RBC Auto (Bld) [#/Vol]Ordere d By: Claudia Anderson on 04-13-2023 RBC (Bld) [#/Vol] 3.37 10*6/uL 4.2-5.4 [facility] Thin prep Papanicolaou smear with manual screeningOrdered By: Claudia Anderson on 04-13-2023 Thin prep Papanicolaou smear with manual screening 2.6 g/dL 3.2-5.0 [facility] Thin prep Papanicolaou smear with manual screening 10 U/L 15-37 [facility] Basophil percentageOrdered B y: Claudia Anderson on 01-25-2023 Bilirubin [Mass/Vol] 0.30 mg/dL 0.20-1.00 [facility] Comment on above: For patients on eltr ombopag therapy, use of Dimension [place] TBIL is not recommended. Chloride [Moles/Vol] 105 mmol/L 98-107 [facility] Glucose [Mass/Vol] 90 mg/dL 74-106 [facility] Potassium [Moles/Vol] 4.5 mmol/L 3.5-5.1 [facility] Protein [Mass/Vol] 6.2 g/dL 6.4-8.2 [facility] Sodium [Moles/Vol] 140 mmol/L 136-145 [facility] Laboratory - Chemistry and C hemistry - challengeOrdered By: Claudia Anderson on 01-25-2023 ALP [Catalytic activity/Vol] 75 U/L 45-117 [facility] ALT [Catalytic activity/Vol] 8 U/L 13-56 [facility] CO2 [Moles/Vol] 32.0 mmol/L 21.0-32.0 [facility] Globulin (S) [Mass/Vol] 3.4 g/dL 2.2-4.2 [facility] Urea nitrogen/Creatinine [Mass ratio] 13.9 mg/mg 10-20 [facility] No Panel InformationOrdered By: Claudia Anderson on 01-25-2023 Estimated GFR (MDRD) Amer 92 mL/min >60 [facility] Comment on above: GFR Calc Estimated GFR (MDRD) Non-Af Amer 76 mL/min >60 [facility] Comment on above: Non- GFR Calc Serum or plasma albumin moriah urement (mass/volume)Ordered By: Claudia Anderson on 01-25-2023 Albumin [Mass/Vol] 2.8 g/dL 3.2-5.0 [facility] Serum or plasma albumin/glob ulin mass ratioOrdered By: Claudia Anderson on 01-25-2023 Albumin/Globulin [Mass ratio] 0.8 {ratio} 0.9-2.4 [facility] Serum or plasma calcium moriah urement (mass/volume)Ordered By: Claudia Anderson on 01-25-2023 Calcium [Mass/Vol] 8.6 mg/dL 8.5-10.1 [facility] Serum or plasma creatinine m easurement (mass/volume)Ordered By: Claudia Anderson on 01-25-2023 Creatinine [Mass/Vol] 0.79 mg/dL 0.55-1.02 [facility] Comment on above: The validity of the calculated GFR & GFRAA in patients over 70 years has not been determined. Clinical correlation is essential. Serum or plasma urea nitroge n measurement (mass/volume)Ordered By: Claudia Anderson on 01-25-2023 Urea nitrogen [Mass/Vol] 11 mg/dL 7-18 [facility] Thin prep Papanicolaou smear with manual screeningOrdered By: Claudia Anderson on 01-25-2023 Thin prep Papanicolaou smear with manual screening 10 U/L 15-37 [facility] Thin prep Papanicolaou smear with manual screening 3 5-15 [facility] Basophil percentageOrdered B y: Claudia Anderson on 01-11-2023 Bilirubin [Mass/Vol] 0.20 mg/dL 0.20-1.00 [facility] Comment on above: For patients on eltr ombopag therapy, use of Dimension [place] TBIL is not recommended. Protein [Mass/Vol] 5.6 g/dL 6.4-8.2 [facility] WBC (Bld) [#/Vol] 5.7 10*3/uL 4.4-11.0 [facility] Blood erythrocytes count (nu mber/volume)Ordered By: Claudia Anderson on 01-11-2023 RBC (Bld) [#/Vol] 3.43 10*6/uL 4.2-5.4 [facility] Blood hemoglobin measurement (mass/volume)Ordered By: Claudia Anderson on 01-11-2023 Hemoglobin (Bld) [Mass/Vol] 11.3 g/dL 12.0-15.0 [facility] Blood platelet mean volumeOr dered By: Claudia Anderson on 01-11-2023 Platelet mean volume (Bld) [Entitic vol] 9.8 fL 6.2-12.0 [facility] Determination of erythrocyte mean corpuscular volume (MCV)Ordered By: Claudia Anderson on 01-11-2023 MCV (RBC) [Entitic vol] 103.8 fL 81-99 [facility] Direct bilirubinOrdered By: Claudia Anderson on 01-11-2023 Bilirubin.direct [Mass/Vol] mg/dL 0.00-0.30 [facility] Hematocrit Auto (Bld) [Volum e fraction]Ordered By: Claudia Anderson on 01-11-2023 Hematocrit (Bld) [Volume fraction] 35.6 % 37-47 [facility] Laboratory - Chemistry and C hemistry - challengeOrdered By: Claudia Anderson on 01-11-2023 ALP [Catalytic activity/Vol] 83 U/L 45-117 [facility] ALT [Catalytic activity/Vol] 13 U/L 13-56 [facility] Globulin (S) [Mass/Vol] 3.0 g/dL 2.2-4.2 [facility] - Hematology and Cell countsOrdered By: Claudia Anderson on 01-11-2023 Erythrocyte distribution width (RBC) [Entitic vol] 53.4 fL 35.1-43.9 [facility] Erythrocyte distribution width (RBC) [Ratio] 14.2 % 11.6-14.6 [facility] MCH (RBC) [Entitic mass] 32.9 pg 27.0-32.0 [facility] MCHC Auto (RBC) [Mass/Vol]Or dered By: Claudia Anderson on 01-11-2023 MCHC (RBC) [Mass/Vol] 31.7 g/dL 32-36 [facility] No Panel InformationOrdered By: Claudia Anderson on 01-11-2023 Valproic Acid (Depakene) Level 48 ug/mL 50-100 [facility] Platelets bldOrdered By: Po Anderson on 01-11-2023 Platelets (Bld) [#/Vol] 205 10*3/uL 150-450 [facility] Serum or plasma albumin moriah urement (mass/volume)Ordered By: Claudia Anderson on 01-11-2023 Albumin [Mass/Vol] 2.6 g/dL 3.2-5.0 [facility] Thin prep Papanicolaou smear with manual screeningOrdered By: Claudia Anderson on 01-11-2023 Thin prep Papanicolaou smear with manual screening 12 U/L 15-37 [facility] Absolute lymphocyte countOrd ered By: Claudia Anderson on 12-20-2022 Lymphocytes Auto (Unsp spec) [#/Vol] 2.76 10*3/uL 0.83-4.51 [facility] Basophil percentageOrdered B y: Claudia Anderson on 12-20-2022 Basophils/100 WBC (Bld) 0.8 % 0-1 [facility] Chloride [Moles/Vol] 106 mmol/L 98-107 [facility] Eosinophils/100 WBC (Bld) 6.6 % 0-5 [facility] Glucose [Mass/Vol] 87 mg/dL 74-106 [facility] Neutrophils (Bld) [#/Vol] 1.6 10*3/uL 2.0-7.7 [facility] Neutrophils/100 WBC (Bld) 30.7 % 47-70 [facility] Potassium [Moles/Vol] 3.9 mmol/L 3.5-5.1 [facility] Sodium [Moles/Vol] 143 mmol/L 136-145 [facility] WBC (Bld) [#/Vol] 5.3 10*3/uL 4.4-11.0 [facility] Blood erythrocytes count (nu mber/volume)Ordered By: Claudia Anderson on 12-20-2022 RBC (Bld) [#/Vol] 3.71 10*6/uL 4.2-5.4 [facility] Blood hemoglobin measurement (mass/volume)Ordered By: Claudia Anderson on 12-20-2022 Hemoglobin (Bld) [Mass/Vol] 12.2 g/dL 12.0-15.0 [facility] Blood lymphocytes/100 leukoc ytesOrdered By: Claudia Anderson on 12-20-2022 Lymphocytes/100 WBC (Bld) 52.1 % 19-41 [facility] Blood monocytes/100 leukocyt esOrdered By: Claudia Anderson on 12-20-2022 Monocytes/100 WBC (Bld) 9.4 % 0-10 [facility] Blood platelet mean volumeOr dered By: Claudia Anderson on 12-20-2022 Platelet mean volume (Bld) [Entitic vol] 9.2 fL 6.2-12.0 [facility] Determination of erythrocyte mean corpuscular volume (MCV)Ordered By: Claudia Anderson on 12-20-2022 MCV (RBC) [Entitic vol] 104.0 fL 81-99 [facility] Hematocrit Auto (Bld) [Volum e fraction]Ordered By: Claudia Anderson on 12-20-2022 Hematocrit (Bld) [Volume fraction] 38.6 % 37-47 [facility] Laboratory - Chemistry and C hemistry - challengeOrdered By: Claudia Anderson on 12-20-2022 CO2 [Moles/Vol] 35.0 mmol/L 21.0-32.0 [facility] Urea nitrogen/Creatinine [Mass ratio] 9.3 mg/mg 10-20 [facility] Laboratory - Hematology and Cell countsOrdered By: Claudia Anderson on 12-20-2022 Erythrocyte distribution width (RBC) [Entitic vol] 52.6 fL 35.1-43.9 [facility] Erythrocyte distribution width (RBC) [Ratio] 13.8 % 11.6-14.6 [facility] Immature granulocytes/100 WBC (Bld) 0.400 % 0.0-0.9 [facility] Comment on above: IG% - Immature Granu locytes (promyelocytes, myelocytes and metamyelocytes) > 1% indicates that a LEFT SHIFT is Present. MCH (RBC) [Entitic mass] 32.9 pg 27.0-32.0 [facility] Nucleated RBC/100 WBC (Bld) [Ratio] 0 % 0-5 [facility] MCHC Auto (RBC) [Mass/Vol]Or dered By: Claudia Anderson on 12-20-2022 MCHC (RBC) [Mass/Vol] 31.6 g/dL 32-36 [facility] No Panel InformationOrdered By: Claudia Anderson on 12-20-2022 Estimated GFR (MDRD) Amer 97 mL/min >60 [facility] Comment on above: GFR Calc Estimated GFR (MDRD) Non-Af Amer 80 mL/min >60 [facility] Comment on above: Non- GFR Calc Platelets bldOrdered By: Po Anderson on 12-20-2022 Platelets (Bld) [#/Vol] 316 10*3/uL 150-450 [facility] Serum or plasma C reactive p rotein measurement (mass/volume)Ordered By: Claudia Anderson on 12-20-2022 CRP [Mass/Vol] 35.70 mg/L 0.0-3.0 [facility] Comment on above: C-Reactive Protein ( CRP) provides useful information for thediagnosis, therapy and monitoring of inflammatory processesand associated diseases. For the evaluation of Relative Riskfor Cardiovascular Disease, a High Sensitivity CRP (HSCRP)should be ordered. Serum or plasma calcium moriah urement (mass/volume)Ordered By: Claudia Anderson on 12-20-2022 Calcium [Mass/Vol] 8.7 mg/dL 8.5-10.1 [facility] Serum or plasma creatinine m easurement (mass/volume)Ordered By: Claudiasimran Anderson on 12-20-2022 Creatinine [Mass/Vol] 0.76 mg/dL 0.55-1.02 [facility] Comment on above: The validity of the calculated GFR & GFRAA in patients over 70 years has not been determined. Clinical correlation is essential. Serum or plasma urea nitroge n measurement (mass/volume)Ordered By: Claudiasimran Anderson on 12-20-2022 Urea nitrogen [Mass/Vol] 7 mg/dL 7-18 [facility] Thin prep Papanicolaou smear with manual screeningOrdered By: Claudiasimran Anderson on 12-20-2022 Thin prep Papanicolaou smear with manual screening 2 5-15 [facility] Absolute lymphocyte countOrd ered By: Claudiasimran Anderson on 12-17-2022 Lymphocytes Auto (Unsp spec) [#/Vol] 1.47 10*3/uL 0.83-4.51 [facility] Basophil percentageOrdered B y: Claudia Anderson on 12-17-2022 Basophils/100 WBC (Bld) 0.5 % 0-1 [facility] Chloride [Moles/Vol] 104 mmol/L 98-107 [facility] Eosinophils/100 WBC (Bld) 6.7 % 0-5 [facility] Glucose [Mass/Vol] 80 mg/dL 74-106 [facility] Neutrophils (Bld) [#/Vol] 3.3 10*3/uL 2.0-7.7 [facility] Neutrophils/100 WBC (Bld) 55.8 % 47-70 [facility] Potassium [Moles/Vol] 4.1 mmol/L 3.5-5.1 [facility] Sodium [Moles/Vol] 136 mmol/L 136-145 [facility] WBC (Bld) [#/Vol] 6.0 10*3/uL 4.4-11.0 [facility] Blood erythrocytes count (nu mber/volume)Ordered By: Claudia Anderson on 12-17-2022 RBC (Bld) [#/Vol] 3.41 10*6/uL 4.2-5.4 [facility] Blood hemoglobin measurement (mass/volume)Ordered By: Claudia Anderson on 12-17-2022 Hemoglobin (Bld) [Mass/Vol] 10.7 g/dL 12.0-15.0 [facility] Blood lymphocytes/100 leukoc ytesOrdered By: Claudia Anderson on 12-17-2022 Lymphocytes/100 WBC (Bld) 24.6 % 19-41 [facility] Blood monocytes/100 leukocyt esOrdered By: Claudia Anderson on 12-17-2022 Monocytes/100 WBC (Bld) 12.1 % 0-10 [facility] Blood platelet mean volumeOr dered By: Claudia Anderson on 12-17-2022 Platelet mean volume (Bld) [Entitic vol] 9.6 fL 6.2-12.0 [facility] Determination of erythrocyte mean corpuscular volume (MCV)Ordered By: Claudia Anderson on 12-17-2022 MCV (RBC) [Entitic vol] 103.2 fL 81-99 [facility] Hematocrit Auto (Bld) [Volum e fraction]Ordered By: Claudia Anderson on 12-17-2022 Hematocrit (Bld) [Volume fraction] 35.2 % 37-47 [facility] Laboratory - Chemistry and C hemistry - challengeOrdered By: Claudia Anderson on 12-17-2022 CO2 [Moles/Vol] 30.0 mmol/L 21.0-32.0 [facility] Urea nitrogen/Creatinine [Mass ratio] 15.9 mg/mg 10-20 [facility] Laboratory - Hematology and Cell countsOrdered By: Claudia Anderson on 12-17-2022 Erythrocyte distribution width (RBC) [Entitic vol] 53.8 fL 35.1-43.9 [facility] Erythrocyte distribution width (RBC) [Ratio] 14.1 % 11.6-14.6 [facility] Immature granulocytes/100 WBC (Bld) 0.300 % 0.0-0.9 [facility] Comment on above: IG% - Immature Granu locytes (promyelocytes, myelocytes and metamyelocytes) > 1% indicates that a LEFT SHIFT is Present. MCH (RBC) [Entitic mass] 31.4 pg 27.0-32.0 [facility] Nucleated RBC/100 WBC (Bld) [Ratio] 0 % 0-5 [facility] MCHC Auto (RBC) [Mass/Vol]Or dered By: Claudia Anderson on 12-17-2022 MCHC (RBC) [Mass/Vol] 30.4 g/dL 32-36 [facility] Comment on above: Delta: 32.5 on 12/15-999 No Panel InformationOrdered By: Claudia Anderson on 12-17-2022 Estimated GFR (MDRD) Amer 107 mL/min >60 [facility] Comment on above: GFR Calc Estimated GFR (MDRD) Non-Af Amer 89 mL/min >60 [facility] Comment on above: Non- GFR Calc Platelets bldOrdered By: Po Anderson on 12-17-2022 Platelets (Bld) [#/Vol] 231 10*3/uL 150-450 [facility] Serum or plasma C reactive p rotein measurement (mass/volume)Ordered By: Claudia Anderson on 12-17-2022 CRP [Mass/Vol] 160.00 mg/L 0.0-3.0 [facility] Comment on above: C-Reactive Protein ( CRP) provides useful information for thediagnosis, therapy and monitoring of inflammatory processesand associated diseases. For the evaluation of Relative Riskfor Cardiovascular Disease, a High Sensitivity CRP (HSCRP)should be ordered. Serum or plasma calcium moriah urement (mass/volume)Ordered By: Claudia Anderson on 12-17-2022 Calcium [Mass/Vol] 8.2 mg/dL 8.5-10.1 [facility] Serum or plasma creatinine m easurement (mass/volume)Ordered By: Claudia Anderson on 12-17-2022 Creatinine [Mass/Vol] 0.69 mg/dL 0.55-1.02 [facility] Comment on above: The validity of the calculated GFR & GFRAA in patients over 70 years has not been determined. Clinical correlation is essential. Serum or plasma urea nitroge n measurement (mass/volume)Ordered By: Claudia Anderson on 12-17-2022 Urea nitrogen [Mass/Vol] 11 mg/dL 7-18 [facility] Thin prep Papanicolaou smear with manual screeningOrdered By: Claudiasimran Anderson on 12-17-2022 Thin prep Papanicolaou smear with manual screening 2 5-15 [facility] Absolute lymphocyte countOrd ered By: Oniel Valente on 12-15-2022 Lymphocytes Auto (Unsp spec) [#/Vol] 1.45 10*3/uL 0.83-4.51 [facility] Basophil percentageOrdered B y: Oniel Valente on 12-15-2022 Basophil percentage 0 SEEN /hpf 0-5 [facility] Ammonia (P) [Moles/Vol] 20.0 umol/L 11-32 [facility] Basophils/100 WBC (Bld) 0.4 % 0-1 [facility] Bilirubin [Mass/Vol] 0.20 mg/dL 0.20-1.00 [facility] Comment on above: For patients on eltr ombopag therapy, use of Dimension [place] TBIL is not recommended. Chloride [Moles/Vol] 101 mmol/L 98-107 [facility] Eosinophils/100 WBC (Bld) 2.2 % 0-5 [facility] Glucose [Mass/Vol] 98 mg/dL 74-106 [facility] Neutrophils (Bld) [#/Vol] 6.5 10*3/uL 2.0-7.7 [facility] Neutrophils/100 WBC (Bld) 68.4 % 47-70 [facility] Potassium [Moles/Vol] 4.0 mmol/L 3.5-5.1 [facility] Protein [Mass/Vol] 6.3 g/dL 6.4-8.2 [facility] Sodium [Moles/Vol] 134 mmol/L 136-145 [facility] WBC (Bld) [#/Vol] 9.5 10*3/uL 4.4-11.0 [facility] Bilirubin Test strip Ql (U)O rdered By: Oniel Valente on 12-15-2022 Bilirubin Ql (U) Negative Negative [facility] Blood erythrocytes count (nu mber/volume)Ordered By: Oniel Valente on 12-15-2022 RBC (Bld) [#/Vol] 3.62 10*6/uL 4.2-5.4 [facility] Blood hemoglobin measurement (mass/volume)Ordered By: Oniel Valente on 12-15-2022 Hemoglobin (Bld) [Mass/Vol] 11.8 g/dL 12.0-15.0 [facility] Blood lymphocytes/100 leukoc ytesOrdered By: Oniel Valente on 12-15-2022 Lymphocytes/100 WBC (Bld) 15.3 % 19-41 [facility] Blood monocytes/100 leukocyt esOrdered By: Oniel Valente on 12-15-2022 Monocytes/100 WBC (Bld) 13.3 % 0-10 [facility] Blood platelet mean volumeOr dered By: Oniel Valente on 12-15-2022 Platelet mean volume (Bld) [Entitic vol] 9.0 fL 6.2-12.0 [facility] Determination of erythrocyte mean corpuscular volume (MCV)Ordered By: Oniel Valente on 12-15-2022 MCV (RBC) [Entitic vol] 100.3 fL 81-99 [facility] Hematocrit Auto (Bld) [Volum e fraction]Ordered By: Oniel Valente on 12-15-2022 Hematocrit (Bld) [Volume fraction] 36.3 % 37-47 [facility] Influenza virus A and B and SARS-CoV-2 (COVID-19) Ag panel - Upper respiratory specimOrdered By: Oniel Valente on 12-15-2022 SARS-CoV-2 & FLU Antigen (Rapid) SARS-CoV-2 (COVID 19) [facility] SARS-CoV-2 & FLU Antigen (Rapid) SARS-CoV-2 (COVID 19) [facility] Ketones Test strip Ql (U)Ord ered By: Oniel Valente on 12-15-2022 Ketones Ql (U) Negative Negative [facility] Laboratory - Chemistry and C hemistry - challengeOrdered By: Oniel Valente on 12-15-2022 ALP [Catalytic activity/Vol] 95 U/L 45-117 [facility] ALT [Catalytic activity/Vol] 14 U/L 13-56 [facility] CO2 [Moles/Vol] 30.0 mmol/L 21.0-32.0 [facility] Globulin (S) [Mass/Vol] 3.5 g/dL 2.2-4.2 [facility] Urea nitrogen/Creatinine [Mass ratio] 12.5 mg/mg 10-20 [facility] Laboratory - Hematology and Cell countsOrdered By: Oniel Valente on 12-15-2022 Erythrocyte distribution width (RBC) [Entitic vol] 51.2 fL 35.1-43.9 [facility] Erythrocyte distribution width (RBC) [Ratio] 13.8 % 11.6-14.6 [facility] Immature granulocytes/100 WBC (Bld) 0.400 % 0.0-0.9 [facility] Comment on above: IG% - Immature Granu locytes (promyelocytes, myelocytes and metamyelocytes) > 1% indicates that a LEFT SHIFT is Present. MCH (RBC) [Entitic mass] 32.6 pg 27.0-32.0 [facility] Nucleated RBC/100 WBC (Bld) [Ratio] 0 % 0-5 [facility] MCHC Auto (RBC) [Mass/Vol]Or dered By: Oniel Valente on 12-15-2022 MCHC (RBC) [Mass/Vol] 32.5 g/dL 32-36 [facility] Mucus LM Ql (Urine sed)Order ed By: Oniel Valente on 12-15-2022 Mucus Ql (Urine sed) 0 SEEN /hpf [facility] Nitrite Test strip Ql (U)Ord ered By: Oniel Valente on 12-15-2022 Nitrite Ql (U) Negative Negative [facility] No Panel InformationOrdered By: Oniel Valente on 12-15-2022 Estimated Creatinine Clearance Calc 42.12 ml/min [facility] Estimated GFR (MDRD) Amer 81 mL/min >60 [facility] Comment on above: GFR Calc Estimated GFR (MDRD) Non-Af Amer 67 mL/min >60 [facility] Comment on above: Non- GFR Calc Troponin I High Sensitivity 7 pg/mL 3.0-54.0 [facility] Comment on above: Please Note: New Nicolasa t Units and Gender Specific Reference Ranges. For more information see Policy Stat Procedure [facility] High Sensitivity Troponin (TNIH) and attachments. Platelets bldOrdered By: Fredy Valente on 12-15-2022 Platelets (Bld) [#/Vol] 229 10*3/uL 150-450 [facility] Protein Test strip Ql (U)Ord ered By: Oniel Valente on 12-15-2022 Protein Ql (U) Negative Negative [facility] Serum or plasma albumin moriah urement (mass/volume)Ordered By: Oniel Valente on 12-15-2022 Albumin [Mass/Vol] 2.8 g/dL 3.2-5.0 [facility] Serum or plasma albumin/glob ulin mass ratioOrdered By: Oniel Valente on 12-15-2022 Albumin/Globulin [Mass ratio] 0.8 {ratio} 0.9-2.4 [facility] Serum or plasma calcium moriah urement (mass/volume)Ordered By: Oniel Valente on 12-15-2022 Calcium [Mass/Vol] 8.3 mg/dL 8.5-10.1 [facility] Serum or plasma creatinine m easurement (mass/volume)Ordered By: Oniel Valente on 12-15-2022 Creatinine [Mass/Vol] 0.88 mg/dL 0.55-1.02 [facility] Comment on above: The validity of the calculated GFR & GFRAA in patients over 70 years has not been determined. Clinical correlation is essential. Serum or plasma urea nitroge n measurement (mass/volume)Ordered By: Oniel Valente on 12-15-2022 Urea nitrogen [Mass/Vol] 11 mg/dL 7-18 [facility] Squamous epithelial cells de tection in urine sediment by light microscopyOrdered By: Oniel Valente on 12-15-2022 Epithelial cells.squamous LM Ql (Urine sed) 0 SEEN /hpf 5-10 [facility] Thin prep Papanicolaou smear with manual screeningOrdered By: Oniel Valente on 12-15-2022 Thin prep Papanicolaou smear with manual screening 13 U/L 15-37 [facility] Thin prep Papanicolaou smear with manual screening 3 5-15 [facility] Urine blood detectionOrdered By: Oniel Valenet on 12-15-2022 RBC Ql (U) Negative Negative [facility] RBC Ql (U) 0 SEEN /hpf 0-5 [facility] Urine clarityOrdered By: Fredy Valente on 12-15-2022 Clarity (U) Clear Clear [facility] Urine color determinationOrd ered By: Oniel Valente on 12-15-2022 Color (U) Yellow Yellow [facility] Urine glucose detectionOrder ed By: Oniel Valente on 12-15-2022 Glucose Ql (U) Normal mg/dl Normal [facility] Urine leukocyte esterase det ection by dipstickOrdered By: Oniel Valente on 12-15-2022 Leukocyte esterase Test strip Ql (U) Negative Negative [facility] Urine pHOrdered By: Oniel arana on 12-15-2022 pH (U) 7.0 [pH] 5.0 - 8.0 [facility] Urine sediment bacteria coun t by microscopy (number/high power field)Ordered By: Oniel Valente on 12-15-2022 Bacteria LM.HPF (Urine sed) [#/Area] 0 /[HPF] None Seen [facility] Urine specific gravity measu rementOrdered By: Oniel Valente on 12-15-2022 Specific gravity (U) [Rel density] 1.010 1.002-1.030 [facility] Urobilinogen Auto test strip Ql (U)Ordered By: Oniel Valente on 12-15-2022 Urobilinogen Ql (U) Normal mg/dl Normal [facility] Basophil percentageOrdered B y: Claudia Anderson on 11-17-2022 Basophil percentage < 10.0 umol/L [facility] Absolute lymphocyte countOrd ered By: Claudia Anderson on 09-29-2022 Lymphocytes Auto (Unsp spec) [#/Vol] 2.37 10*3/uL 0.83-4.51 [facility] Basophil percentageOrdered B y: Claudia Anderson on 09-29-2022 Basophils/100 WBC (Bld) 0.9 % 0-1 [facility] Chloride [Moles/Vol] 107 mmol/L 98-107 [facility] Eosinophils/100 WBC (Bld) 5.0 % 0-5 [facility] Glucose [Mass/Vol] 79 mg/dL 74-106 [facility] Neutrophils (Bld) [#/Vol] 1.5 10*3/uL 2.0-7.7 [facility] Neutrophils/100 WBC (Bld) 31.8 % 47-70 [facility] Potassium [Moles/Vol] 3.8 mmol/L 3.5-5.1 [facility] Sodium [Moles/Vol] 142 mmol/L 136-145 [facility] WBC (Bld) [#/Vol] 4.6 10*3/uL 4.4-11.0 [facility] Blood erythrocytes count (nu mber/volume)Ordered By: Claudia Anderson on 09-29-2022 RBC (Bld) [#/Vol] 3.68 10*6/uL 4.2-5.4 [facility] Blood hemoglobin measurement (mass/volume)Ordered By: Claudia Anderson on 09-29-2022 Hemoglobin (Bld) [Mass/Vol] 11.7 g/dL 12.0-15.0 [facility] Blood lymphocytes/100 leukoc ytesOrdered By: Claudia Anderson on 09-29-2022 Lymphocytes/100 WBC (Bld) 52.0 % 19-41 [facility] Blood monocytes/100 leukocyt esOrdered By: Claudia Anderson on 09-29-2022 Monocytes/100 WBC (Bld) 10.1 % 0-10 [facility] Blood platelet mean volumeOr dered By: Claudia Anderson on 09-29-2022 Platelet mean volume (Bld) [Entitic vol] 9.7 fL 6.2-12.0 [facility] Determination of erythrocyte mean corpuscular volume (MCV)Ordered By: Claudia Anderson on 09-29-2022 MCV (RBC) [Entitic vol] 100.8 fL 81-99 [facility] Hematocrit Auto (Bld) [Volum e fraction]Ordered By: Claudia Anderson on 09-29-2022 Hematocrit (Bld) [Volume fraction] 37.1 % 37-47 [facility] Laboratory - Chemistry and C hemistry - challengeOrdered By: Claudia Anderson on 09-29-2022 CO2 [Moles/Vol] 31.0 mmol/L 21.0-32.0 [facility] Urea nitrogen/Creatinine [Mass ratio] 7.1 mg/mg 10-20 [facility] Laboratory - Hematology and Cell countsOrdered By: Claudia Anderson on 09-29-2022 Erythrocyte distribution width (RBC) [Entitic vol] 50.7 fL 35.1-43.9 [facility] Erythrocyte distribution width (RBC) [Ratio] 13.6 % 11.6-14.6 [facility] Immature granulocytes/100 WBC (Bld) 0.200 % 0.0-0.9 [facility] Comment on above: IG% - Immature Granu locytes (promyelocytes, myelocytes and metamyelocytes) > 1% indicates that a LEFT SHIFT is Present. MCH (RBC) [Entitic mass] 31.8 pg 27.0-32.0 [facility] Nucleated RBC/100 WBC (Bld) [Ratio] 0 % 0-5 [facility] MCHC Auto (RBC) [Mass/Vol]Or dered By: Claudia Anderson on 09-29-2022 MCHC (RBC) [Mass/Vol] 31.5 g/dL 32-36 [facility] No Panel InformationOrdered By: Claudia Anderson on 09-29-2022 Estimated GFR (MDRD) Amer 105 mL/min >60 [facility] Comment on above: GFR Calc Estimated GFR (MDRD) Non-Af Amer 87 mL/min >60 [facility] Comment on above: Non- GFR Calc Platelets bldOrdered By: Po Anderson on 09-29-2022 Platelets (Bld) [#/Vol] 269 10*3/uL 150-450 [facility] Serum or plasma calcium moriah urement (mass/volume)Ordered By: Claudia Anderson on 09-29-2022 Calcium [Mass/Vol] 8.3 mg/dL 8.5-10.1 [facility] Serum or plasma creatinine m easurement (mass/volume)Ordered By: Claudia Anderson on 09-29-2022 Creatinine [Mass/Vol] 0.71 mg/dL 0.55-1.02 [facility] Comment on above: The validity of the calculated GFR & GFRAA in patients over 70 years has not been determined. Clinical correlation is essential. Serum or plasma urea nitroge n measurement (mass/volume)Ordered By: Claudia Anderson on 09-29-2022 Urea nitrogen [Mass/Vol] 5 mg/dL 7-18 [facility] Thin prep Papanicolaou smear with manual screeningOrdered By: Claudiasimran Anderson on 09-29-2022 Thin prep Papanicolaou smear with manual screening 4 5-15 [facility] Absolute lymphocyte countOrd ered By: Claudia Anderson on 09-22-2022 Lymphocytes Auto (Unsp spec) [#/Vol] 2.33 10*3/uL 0.83-4.51 [facility] Basophil percentageOrdered B y: Claudia Anderson on 09-22-2022 Basophils/100 WBC (Bld) 0.6 % 0-1 [facility] Chloride [Moles/Vol] 107 mmol/L 98-107 [facility] Eosinophils/100 WBC (Bld) 6.0 % 0-5 [facility] Glucose [Mass/Vol] 78 mg/dL 74-106 [facility] Neutrophils (Bld) [#/Vol] 2.9 10*3/uL 2.0-7.7 [facility] Neutrophils/100 WBC (Bld) 45.4 % 47-70 [facility] Potassium [Moles/Vol] 4.2 mmol/L 3.5-5.1 [facility] Sodium [Moles/Vol] 140 mmol/L 136-145 [facility] WBC (Bld) [#/Vol] 6.3 10*3/uL 4.4-11.0 [facility] Blood erythrocytes count (nu mber/volume)Ordered By: Claudia Anderson on 09-22-2022 RBC (Bld) [#/Vol] 3.55 10*6/uL 4.2-5.4 [facility] Blood hemoglobin measurement (mass/volume)Ordered By: Claudia Anderson on 09-22-2022 Hemoglobin (Bld) [Mass/Vol] 11.4 g/dL 12.0-15.0 [facility] Blood lymphocytes/100 leukoc ytesOrdered By: Claudia Anderson on 09-22-2022 Lymphocytes/100 WBC (Bld) 36.9 % 19-41 [facility] Blood monocytes/100 leukocyt esOrdered By: Claudia Anderson on 09-22-2022 Monocytes/100 WBC (Bld) 10.8 % 0-10 [facility] Blood platelet mean volumeOr dered By: Claudia Anderson on 09-22-2022 Platelet mean volume (Bld) [Entitic vol] 10.1 fL 6.2-12.0 [facility] Determination of erythrocyte mean corpuscular volume (MCV)Ordered By: Claudia Anderson on 09-22-2022 MCV (RBC) [Entitic vol] 103.1 fL 81-99 [facility] Hematocrit Auto (Bld) [Volum e fraction]Ordered By: Claudia Anderson on 09-22-2022 Hematocrit (Bld) [Volume fraction] 36.6 % 37-47 [facility] Laboratory - Chemistry and C hemistry - challengeOrdered By: Claudia Anderson on 09-22-2022 CO2 [Moles/Vol] 28.0 mmol/L 21.0-32.0 [facility] Urea nitrogen/Creatinine [Mass ratio] 11.8 mg/mg 10-20 [facility] Laboratory - Hematology and Cell countsOrdered By: Claudia Anderson on 09-22-2022 Erythrocyte distribution width (RBC) [Entitic vol] 53.5 fL 35.1-43.9 [facility] Erythrocyte distribution width (RBC) [Ratio] 13.9 % 11.6-14.6 [facility] Immature granulocytes/100 WBC (Bld) 0.300 % 0.0-0.9 [facility] Comment on above: IG% - Immature Granu locytes (promyelocytes, myelocytes and metamyelocytes) > 1% indicates that a LEFT SHIFT is Present. MCH (RBC) [Entitic mass] 32.1 pg 27.0-32.0 [facility] Nucleated RBC/100 WBC (Bld) [Ratio] 0 % 0-5 [facility] MCHC Auto (RBC) [Mass/Vol]Or dered By: Claudia Anderson on 09-22-2022 MCHC (RBC) [Mass/Vol] 31.1 g/dL 32-36 [facility] No Panel InformationOrdered By: Claudia Anderson on 09-22-2022 Estimated GFR (MDRD) Amer 96 mL/min >60 [facility] Comment on above: GFR Calc Estimated GFR (MDRD) Non-Af Amer 79 mL/min >60 [facility] Comment on above: Non- GFR Calc Platelets bldOrdered By: Po Anderson on 09-22-2022 Platelets (Bld) [#/Vol] 242 10*3/uL 150-450 [facility] Serum or plasma calcium moriah urement (mass/volume)Ordered By: Claudia Anderson on 09-22-2022 Calcium [Mass/Vol] 8.5 mg/dL 8.5-10.1 [facility] Serum or plasma creatinine m easurement (mass/volume)Ordered By: Claudia Anderson on 09-22-2022 Creatinine [Mass/Vol] 0.76 mg/dL 0.55-1.02 [facility] Comment on above: The validity of the calculated GFR & GFRAA in patients over 70 years has not been determined. Clinical correlation is essential. Serum or plasma urea nitroge n measurement (mass/volume)Ordered By: Claudia Anderson on 09-22-2022 Urea nitrogen [Mass/Vol] 9 mg/dL 7-18 [facility] Thin prep Papanicolaou smear with manual screeningOrdered By: Claudia Anderson on 09-22-2022 Thin prep Papanicolaou smear with manual screening 5 5-15 [facility] Absolute lymphocyte countOrd ered By: Claudia Anderson on 09-15-2022 Lymphocytes Auto (Unsp spec) [#/Vol] 2.14 10*3/uL 0.83-4.51 [facility] Basophil percentageOrdered B y: Claudia Anderson on 09-15-2022 Basophils/100 WBC (Bld) 1.0 % 0-1 [facility] Chloride [Moles/Vol] 110 mmol/L 98-107 [facility] Eosinophils/100 WBC (Bld) 7.0 % 0-5 [facility] Glucose [Mass/Vol] 79 mg/dL 74-106 [facility] Neutrophils (Bld) [#/Vol] 2.0 10*3/uL 2.0-7.7 [facility] Neutrophils/100 WBC (Bld) 38.2 % 47-70 [facility] Potassium [Moles/Vol] 4.4 mmol/L 3.5-5.1 [facility] Sodium [Moles/Vol] 141 mmol/L 136-145 [facility] WBC (Bld) [#/Vol] 5.1 10*3/uL 4.4-11.0 [facility] Blood erythrocytes count (nu mber/volume)Ordered By: Claudia Anderson on 09-15-2022 RBC (Bld) [#/Vol] 3.49 10*6/uL 4.2-5.4 [facility] Blood hemoglobin measurement (mass/volume)Ordered By: Claudia Anderson on 09-15-2022 Hemoglobin (Bld) [Mass/Vol] 11.0 g/dL 12.0-15.0 [facility] Blood lymphocytes/100 leukoc ytesOrdered By: Claudia Anderson on 09-15-2022 Lymphocytes/100 WBC (Bld) 41.9 % 19-41 [facility] Blood monocytes/100 leukocyt esOrdered By: Claudia Anderson on 09-15-2022 Monocytes/100 WBC (Bld) 11.7 % 0-10 [facility] Blood platelet mean volumeOr dered By: Claudia Anderson on 09-15-2022 Platelet mean volume (Bld) [Entitic vol] 10.0 fL 6.2-12.0 [facility] Determination of erythrocyte mean corpuscular volume (MCV)Ordered By: Claudia Anderson on 09-15-2022 MCV (RBC) [Entitic vol] 102.0 fL 81-99 [facility] Hematocrit Auto (Bld) [Volum e fraction]Ordered By: Claudia Anderson on 09-15-2022 Hematocrit (Bld) [Volume fraction] 35.6 % 37-47 [facility] Laboratory - Chemistry and C hemistry - challengeOrdered By: Claudia Anderson on 09-15-2022 CO2 [Moles/Vol] 28.0 mmol/L 21.0-32.0 [facility] Urea nitrogen/Creatinine [Mass ratio] 15.2 mg/mg 10-20 [facility] Laboratory - Hematology and Cell countsOrdered By: Claudia Anderson on 09-15-2022 Erythrocyte distribution width (RBC) [Entitic vol] 52.8 fL 35.1-43.9 [facility] Erythrocyte distribution width (RBC) [Ratio] 14.1 % 11.6-14.6 [facility] Immature granulocytes/100 WBC (Bld) 0.200 % 0.0-0.9 [facility] Comment on above: IG% - Immature Granu locytes (promyelocytes, myelocytes and metamyelocytes) > 1% indicates that a LEFT SHIFT is Present. MCH (RBC) [Entitic mass] 31.5 pg 27.0-32.0 [facility] Nucleated RBC/100 WBC (Bld) [Ratio] 0 % 0-5 [facility] MCHC Auto (RBC) [Mass/Vol]Or dered By: Claudia Anderson on 09-15-2022 MCHC (RBC) [Mass/Vol] 30.9 g/dL 32-36 [facility] No Panel InformationOrdered By: Claudia Anderson on 09-15-2022 Estimated GFR (MDRD) Amer 84 mL/min >60 [facility] Comment on above: GFR Calc Estimated GFR (MDRD) Non-Af Amer 70 mL/min >60 [facility] Comment on above: Non- GFR Calc Platelets bldOrdered By: Po Anderson on 09-15-2022 Platelets (Bld) [#/Vol] 277 10*3/uL 150-450 [facility] Serum or plasma calcium moriah urement (mass/volume)Ordered By: Claudia Anderson on 09-15-2022 Calcium [Mass/Vol] 8.0 mg/dL 8.5-10.1 [facility] Serum or plasma creatinine m easurement (mass/volume)Ordered By: Claudia Anderson on 09-15-2022 Creatinine [Mass/Vol] 0.85 mg/dL 0.55-1.02 [facility] Comment on above: The validity of the calculated GFR & GFRAA in patients over 70 years has not been determined. Clinical correlation is essential. Serum or plasma urea nitroge n measurement (mass/volume)Ordered By: Claudia Anderson on 09-15-2022 Urea nitrogen [Mass/Vol] 13 mg/dL 7-18 [facility] Thin prep Papanicolaou smear with manual screeningOrdered By: Claudia Anderson on 09-15-2022 Thin prep Papanicolaou smear with manual screening 3 5-15 [facility] Absolute lymphocyte countOrd ered By: Dr. Anderson on 09-08-2022 Lymphocytes Auto (Unsp spec) [#/Vol] 2.41 10*3/uL 0.83-4.51 [facility] Basophil percentageOrdered B y: Dr. Anderson on 09-08-2022 Basophil percentage 84 mg/dL 74-106 [facility] Basophil percentage 139 mmol/L 136-145 [facility] Basophil percentage 4.6 mmol/L 3.5-5.1 [facility] Basophil percentage 106 mmol/L 98-107 [facility] Basophils (Bld) [#/Vol] 5.9 10*3/uL 4.4-11.0 [facility] Basophils (Bld) [#/Vol] 2.4 10*3/uL 2.0-7.7 [facility] Basophils/100 WBC (Bld) 40.7 % 47-70 [facility] Basophils/100 WBC (Bld) 6.6 % 0-5 [facility] Basophils/100 WBC (Bld) 0.8 % 0-1 [facility] Basophil percentageOrdered B y: Claudia Anderson on 09-08-2022 Chloride [Moles/Vol] 106 mmol/L 98-107 [facility] Eosinophils/100 WBC (Bld) 6.6 % 0-5 [facility] Glucose [Mass/Vol] 84 mg/dL 74-106 [facility] Neutrophils (Bld) [#/Vol] 2.4 10*3/uL 2.0-7.7 [facility] Neutrophils/100 WBC (Bld) 40.7 % 47-70 [facility] Potassium [Moles/Vol] 4.6 mmol/L 3.5-5.1 [facility] Sodium [Moles/Vol] 139 mmol/L 136-145 [facility] WBC (Bld) [#/Vol] 5.9 10*3/uL 4.4-11.0 [facility] Blood erythrocytes count (nu mber/volume)Ordered By: Dr. Anderson on 09-08-2022 RBC (Bld) [#/Vol] 3.63 10*6/uL 4.2-5.4 [facility] Blood hemoglobin measurement (mass/volume)Ordered By: Dr. Anderson on 09-08-2022 Hemoglobin (Bld) [Mass/Vol] 11.5 g/dL 12.0-15.0 [facility] Blood lymphocytes/100 leukoc ytesOrdered By: Dr. Anderson on 09-08-2022 Lymphocytes/100 WBC (Bld) 40.8 % 19-41 [facility] Blood monocytes/100 leukocyt esOrdered By: Dr. Anderson on 09-08-2022 Monocytes/100 WBC (Bld) 10.8 % 0-10 [facility] Blood platelet mean volumeOr dered By: Dr. Anderson on 09-08-2022 Platelet mean volume (Bld) [Entitic vol] 9.9 fL 6.2-12.0 [facility] Determination of erythrocyte mean corpuscular volume (MCV)Ordered By: Dr. Anderson on 09-08-2022 MCV (RBC) [Entitic vol] 102.8 fL 81-99 [facility] Hematocrit Auto (Bld) [Volum e fraction]Ordered By: Dr. Anderson on 09-08-2022 Hematocrit (Bld) [Volume fraction] 37.3 % 37-47 [facility] Laboratory - Chemistry and C hemistry - challengeOrdered By: Claudia Anderson on 09-08-2022 CO2 [Moles/Vol] 29.0 mmol/L 21.0-32.0 [facility] Urea nitrogen/Creatinine [Mass ratio] 14.0 mg/mg 10-20 [facility] Laboratory - Hematology and Cell countsOrdered By: Claudia Anderson on 09-08-2022 Erythrocyte distribution width (RBC) [Entitic vol] 51.6 fL 35.1-43.9 [facility] Erythrocyte distribution width (RBC) [Ratio] 13.6 % 11.6-14.6 [facility] Immature granulocytes/100 WBC (Bld) 0.300 % 0.0-0.9 [facility] Comment on above: IG% - Immature Granu locytes (promyelocytes, myelocytes and metamyelocytes) > 1% indicates that a LEFT SHIFT is Present. MCH (RBC) [Entitic mass] 31.7 pg 27.0-32.0 [facility] Nucleated RBC/100 WBC (Bld) [Ratio] 0 % 0-5 [facility] MCHC Auto (RBC) [Mass/Vol]Or dered By: Dr. Anderson on 09-08-2022 MCHC (RBC) [Mass/Vol] 30.8 g/dL 32-36 [facility] No Panel InformationOrdered By: Claudia Anderson on 09-08-2022 Estimated GFR (MDRD) Amer 84 mL/min >60 [facility] Comment on above: GFR Calc Estimated GFR (MDRD) Non-Af Amer 69 mL/min >60 [facility] Comment on above: Non- GFR Calc Vitamin D 25-Hydroxy 49.5 ng/mL [facility] Comment on above: Vitamin D 25(OH) Sta tus Range Deficiency <20 ng/mL (50nmol/L) Insufficiency 20 - 30 ng/mL (50 - 75 nmol/L) Sufficiency 30 - 100 ng/mL (75 - 250 nmol/L) Toxicity >100 ng/mL (>250 nmol/L) No Panel InformationOrdered By: Dr. Anderson on 09-08-2022 31.7 pg 27.0-32.0 [facility] 13.6 % 11.6-14.6 [facility] 51.6 fl 35.1-43.9 [facility] 0.300 % 0.0-0.9 [facility] 0 % 0-5 [facility] 69 mL/min >60 [facility] 84 mL/min >60 [facility] 14.0 RATIO 10-20 [facility] 29.0 mmol/L 21.0-32.0 [facility] 49.5 ng/mL [facility] Platelets bldOrdered By: Dr. Anderson on 09-08-2022 Platelets (Bld) [#/Vol] 270 10*3/uL 150-450 [facility] Serum or plasma calcium moriah urement (mass/volume)Ordered By: Dr. Anderson on 09-08-2022 Calcium [Mass/Vol] 8.7 mg/dL 8.5-10.1 [facility] Serum or plasma creatinine m easurement (mass/volume)Ordered By: Dr. Anderson on 09-08-2022 Creatinine [Mass/Vol] 0.86 mg/dL 0.55-1.02 [facility] Comment on above: The validity of the calculated GFR & GFRAA in patients over 70 years has not been determined. Clinical correlation is essential. Serum or plasma urea nitroge n measurement (mass/volume)Ordered By: Dr. Anderson on 09-08-2022 Urea nitrogen [Mass/Vol] 12 mg/dL 7-18 [facility] Thin prep Papanicolaou smear with manual screeningOrdered By: Dr. Anderson on 09-08-2022 Thin prep Papanicolaou smear with manual screening 4 5-15 [facility] Absolute lymphocyte countOrd ered By: Dr. Anderson on 09-01-2022 Lymphocytes Auto (Unsp spec) [#/Vol] 2.48 10*3/uL 0.83-4.51 [facility] Basophil percentageOrdered B y: Dr. Anderson on 09-01-2022 Basophil percentage 85 mg/dL 74-106 [facility] Basophil percentage 141 mmol/L 136-145 [facility] Basophil percentage 4.2 mmol/L 3.5-5.1 [facility] Basophil percentage 108 mmol/L 98-107 [facility] Basophils (Bld) [#/Vol] 5.5 10*3/uL 4.4-11.0 [facility] Basophils (Bld) [#/Vol] 1.9 10*3/uL 2.0-7.7 [facility] Basophils/100 WBC (Bld) 34.4 % 47-70 [facility] Basophils/100 WBC (Bld) 8.1 % 0-5 [facility] Basophils/100 WBC (Bld) 0.7 % 0-1 [facility] Basophil percentage 0 SEEN /hpf 0-5 [facility] Basophil percentageOrdered B y: Claudia Anderson on 09-01-2022 Chloride [Moles/Vol] 108 mmol/L 98-107 [facility] Eosinophils/100 WBC (Bld) 8.1 % 0-5 [facility] Glucose [Mass/Vol] 85 mg/dL 74-106 [facility] Neutrophils (Bld) [#/Vol] 1.9 10*3/uL 2.0-7.7 [facility] Neutrophils/100 WBC (Bld) 34.4 % 47-70 [facility] Potassium [Moles/Vol] 4.2 mmol/L 3.5-5.1 [facility] Sodium [Moles/Vol] 141 mmol/L 136-145 [facility] WBC (Bld) [#/Vol] 5.5 10*3/uL 4.4-11.0 [facility] Bilirubin Test strip Ql (U)O rdered By: Dr. Anderson on 09-01-2022 Bilirubin Ql (U) Negative Negative [facility] Blood erythrocytes count (nu mber/volume)Ordered By: Dr. Anderson on 09-01-2022 RBC (Bld) [#/Vol] 3.52 10*6/uL 4.2-5.4 [facility] Blood hemoglobin measurement (mass/volume)Ordered By: Dr. Anderson on 09-01-2022 Hemoglobin (Bld) [Mass/Vol] 11.1 g/dL 12.0-15.0 [facility] Blood lymphocytes/100 leukoc ytesOrdered By: Dr. Anderson on 09-01-2022 Lymphocytes/100 WBC (Bld) 44.8 % 19-41 [facility] Blood monocytes/100 leukocyt esOrdered By: Dr. Anderson on 09-01-2022 Monocytes/100 WBC (Bld) 11.6 % 0-10 [facility] Blood platelet mean volumeOr dered By: Dr. Anderson on 09-01-2022 Platelet mean volume (Bld) [Entitic vol] 9.8 fL 6.2-12.0 [facility] Determination of erythrocyte mean corpuscular volume (MCV)Ordered By: Dr. Anderson on 09-01-2022 MCV (RBC) [Entitic vol] 101.7 fL 81-99 [facility] Hematocrit Auto (Bld) [Volum e fraction]Ordered By: Dr. Anderson on 09-01-2022 Hematocrit (Bld) [Volume fraction] 35.8 % 37-47 [facility] Ketones Test strip Ql (U)Ord ered By: Dr. Anderson on 09-01-2022 Ketones Ql (U) Negative Negative [facility] Laboratory - Chemistry and C hemistry - challengeOrdered By: Claudia Anderson on 09-01-2022 CO2 [Moles/Vol] 29.0 mmol/L 21.0-32.0 [facility] Urea nitrogen/Creatinine [Mass ratio] 13.8 mg/mg 10-20 [facility] Laboratory - Hematology and Cell countsOrdered By: Claudia Anderson on 09-01-2022 Erythrocyte distribution width (RBC) [Entitic vol] 51.1 fL 35.1-43.9 [facility] Erythrocyte distribution width (RBC) [Ratio] 13.7 % 11.6-14.6 [facility] Immature granulocytes/100 WBC (Bld) 0.400 % 0.0-0.9 [facility] Comment on above: IG% - Immature Granu locytes (promyelocytes, myelocytes and metamyelocytes) > 1% indicates that a LEFT SHIFT is Present. MCH (RBC) [Entitic mass] 31.5 pg 27.0-32.0 [facility] Nucleated RBC/100 WBC (Bld) [Ratio] 0 % 0-5 [facility] MCHC Auto (RBC) [Mass/Vol]Or dered By: Dr. Anderson on 09-01-2022 MCHC (RBC) [Mass/Vol] 31.0 g/dL 32-36 [facility] Mucus LM Ql (Urine sed)Order ed By: Dr. Anderson on 09-01-2022 Mucus Ql (Urine sed) 0 SEEN /hpf [facility] Nitrite Test strip Ql (U)Ord ered By: Dr. Anderson on 09-01-2022 Nitrite Ql (U) Negative Negative [facility] No Panel InformationOrdered By: Claudia Anderson on 09-01-2022 Estimated GFR (MDRD) Amer 116 mL/min >60 [facility] Comment on above: GFR Calc Estimated GFR (MDRD) Non-Af Amer 96 mL/min >60 [facility] Comment on above: Non- GFR Calc No Panel InformationOrdered By: Dr. Anderson on 09-01-2022 31.5 pg 27.0-32.0 [facility] 13.7 % 11.6-14.6 [facility] 51.1 fl 35.1-43.9 [facility] 0.400 % 0.0-0.9 [facility] 0 % 0-5 [facility] 96 mL/min >60 [facility] 116 mL/min >60 [facility] 13.8 RATIO 10-20 [facility] 29.0 mmol/L 21.0-32.0 [facility] Platelets bldOrdered By: Dr. Anderson on 09-01-2022 Platelets (Bld) [#/Vol] 262 10*3/uL 150-450 [facility] Protein Test strip Ql (U)Ord ered By: Dr. Anderson on 09-01-2022 Protein Ql (U) Negative Negative [facility] Serum or plasma calcium moriah urement (mass/volume)Ordered By: Dr. Anderson on 09-01-2022 Calcium [Mass/Vol] 8.3 mg/dL 8.5-10.1 [facility] Serum or plasma creatinine m easurement (mass/volume)Ordered By: Dr. Anderson on 09-01-2022 Creatinine [Mass/Vol] 0.65 mg/dL 0.55-1.02 [facility] Comment on above: The validity of the calculated GFR & GFRAA in patients over 70 years has not been determined. Clinical correlation is essential. Serum or plasma urea nitroge n measurement (mass/volume)Ordered By: Dr. Anderson on 09-01-2022 Urea nitrogen [Mass/Vol] 9 mg/dL 7-18 [facility] Squamous epithelial cells de tection in urine sediment by light microscopyOrdered By: Dr. Anderson on 09-01-2022 Epithelial cells.squamous LM Ql (Urine sed) 0 SEEN /hpf 5-10 [facility] Thin prep Papanicolaou smear with manual screeningOrdered By: Dr. Anderson on 09-01-2022 Thin prep Papanicolaou smear with manual screening 4 5-15 [facility] Urine blood detectionOrdered By: Dr. Anderson on 09-01-2022 RBC Ql (U) Negative Negative [facility] RBC Ql (U) 0 SEEN /hpf 0-5 [facility] Urine clarityOrdered By: Dr. Anderson on 09-01-2022 Clarity (U) Sl. Cloudy Clear [facility] Urine color determinationOrd ered By: Dr. Anderson on 09-01-2022 Color (U) Yellow Yellow [facility] Urine glucose detectionOrder ed By: Dr. Anderson on 09-01-2022 Glucose Ql (U) Normal mg/dl Normal [facility] Urine leukocyte esterase det ection by dipstickOrdered By: Dr. Anderson on 09-01-2022 Leukocyte esterase Test strip Ql (U) Negative Negative [facility] Urine pHOrdered By: Dr. Andres owen on 09-01-2022 pH (U) 7.0 [pH] 5.0 - 8.0 [facility] Urine sediment bacteria coun t by microscopy (number/high power field)Ordered By: Dr. Anderson on 09-01-2022 Bacteria LM.HPF (Urine sed) [#/Area] 0 /[HPF] None Seen [facility] Urine specific gravity measu rementOrdered By: Dr. Anderson on 09-01-2022 Specific gravity (U) [Rel density] 1.010 1.002-1.030 [facility] Urobilinogen Auto test strip Ql (U)Ordered By: Dr. Anderson on 09-01-2022 Urobilinogen Ql (U) Normal mg/dl Normal [facility] Absolute lymphocyte countOrd ered By: Dr. Anderson on 08-25-2022 Lymphocytes Auto (Unsp spec) [#/Vol] 2.57 10*3/uL 0.83-4.51 [facility] Basophil percentageOrdered B y: Dr. Anderson on 08-25-2022 Basophil percentage 87 mg/dL 74-106 [facility] Basophil percentage 143 mmol/L 136-145 [facility] Basophil percentage 4.4 mmol/L 3.5-5.1 [facility] Basophil percentage 109 mmol/L 98-107 [facility] Basophils (Bld) [#/Vol] 6.0 10*3/uL 4.4-11.0 [facility] Basophils (Bld) [#/Vol] 2.2 10*3/uL 2.0-7.7 [facility] Basophils/100 WBC (Bld) 36.4 % 47-70 [facility] Basophils/100 WBC (Bld) 7.6 % 0-5 [facility] Basophils/100 WBC (Bld) 0.8 % 0-1 [facility] Basophil percentageOrdered B y: Claudia Anderson on 08-25-2022 Chloride [Moles/Vol] 109 mmol/L 98-107 [facility] Eosinophils/100 WBC (Bld) 7.6 % 0-5 [facility] Glucose [Mass/Vol] 87 mg/dL 74-106 [facility] Neutrophils (Bld) [#/Vol] 2.2 10*3/uL 2.0-7.7 [facility] Neutrophils/100 WBC (Bld) 36.4 % 47-70 [facility] Potassium [Moles/Vol] 4.4 mmol/L 3.5-5.1 [facility] Sodium [Moles/Vol] 143 mmol/L 136-145 [facility] WBC (Bld) [#/Vol] 6.0 10*3/uL 4.4-11.0 [facility] Blood erythrocytes count (nu mber/volume)Ordered By: Dr. Anderson on 08-25-2022 RBC (Bld) [#/Vol] 3.56 10*6/uL 4.2-5.4 [facility] Blood hemoglobin measurement (mass/volume)Ordered By: Dr. Anderson on 08-25-2022 Hemoglobin (Bld) [Mass/Vol] 11.1 g/dL 12.0-15.0 [facility] Blood lymphocytes/100 leukoc ytesOrdered By: Dr. Anderson on 08-25-2022 Lymphocytes/100 WBC (Bld) 43.1 % 19-41 [facility] Blood monocytes/100 leukocyt esOrdered By: Dr. Anderson on 08-25-2022 Monocytes/100 WBC (Bld) 11.9 % 0-10 [facility] Blood platelet mean volumeOr dered By: Dr. Anderson on 08-25-2022 Platelet mean volume (Bld) [Entitic vol] 9.5 fL 6.2-12.0 [facility] Determination of erythrocyte mean corpuscular volume (MCV)Ordered By: Dr. Anderson on 08-25-2022 MCV (RBC) [Entitic vol] 101.7 fL 81-99 [facility] Hematocrit Auto (Bld) [Volum e fraction]Ordered By: Dr. Anderson on 08-25-2022 Hematocrit (Bld) [Volume fraction] 36.2 % 37-47 [facility] Laboratory - Chemistry and C hemistry - challengeOrdered By: Claudia Anderson on 08-25-2022 CO2 [Moles/Vol] 29.0 mmol/L 21.0-32.0 [facility] Urea nitrogen/Creatinine [Mass ratio] 14.0 mg/mg 10-20 [facility] Laboratory - Hematology and Cell countsOrdered By: Claudia Anderson on 08-25-2022 Erythrocyte distribution width (RBC) [Entitic vol] 50.3 fL 35.1-43.9 [facility] Erythrocyte distribution width (RBC) [Ratio] 13.4 % 11.6-14.6 [facility] Immature granulocytes/100 WBC (Bld) 0.200 % 0.0-0.9 [facility] Comment on above: IG% - Immature Granu locytes (promyelocytes, myelocytes and metamyelocytes) > 1% indicates that a LEFT SHIFT is Present. MCH (RBC) [Entitic mass] 31.2 pg 27.0-32.0 [facility] Nucleated RBC/100 [facility]Bld) [[facility]] 0 [facility] [Mass/Vol]Or dered By: Dr. Anderson on 08-25-2022 MCHC (RBC) [Mass/Vol] 30.7 g/dL 32-36 [facility] No Panel InformationOrdered By: Claudia Anderson on 08-25-2022 Estimated GFR (MDRD) Amer 84 mL/min >60 [facility] Comment on above: GFR Calc Estimated GFR (MDRD) Non-Af Amer 70 mL/min >60 [facility] Comment on above: Non- GFR Calc No Panel InformationOrdered By: Dr. Anderson on 08-25-2022 31.2 pg 27.0-32.0 [facility] 13.4 % 11.6-14.6 [facility] 50.3 fl 35.1-43.9 [facility] 0.200 % 0.0-0.9 [facility] 0 % 0-5 [facility] 70 mL/min >60 [facility] 84 mL/min >60 [facility] 14.0 RATIO 10-20 [facility] 29.0 mmol/L 21.0-32.0 [facility] Platelets bldOrdered By: Dr. Anderson on 08-25-2022 Platelets (Bld) [#/Vol] 254 10*3/uL 150-450 [facility] Serum or plasma calcium moriah urement (mass/volume)Ordered By: Dr. Anderson on 08-25-2022 Calcium [Mass/Vol] 8.5 mg/dL 8.5-10.1 [facility] Serum or plasma creatinine m easurement (mass/volume)Ordered By: Dr. Anderson on 08-25-2022 Creatinine [Mass/Vol] 0.86 mg/dL 0.55-1.02 [facility] Comment on above: The validity of the calculated GFR & GFRAA in patients over 70 years has not been determined. Clinical correlation is essential. Serum or plasma urea nitroge n measurement (mass/volume)Ordered By: Dr. Anderson on 08-25-2022 Urea nitrogen [Mass/Vol] 12 mg/dL 7-18 [facility] Thin prep Papanicolaou smear with manual screeningOrdered By: Dr. Anderson on 08-25-2022 Thin prep Papanicolaou smear with manual screening 5 5-15 [facility] Absolute lymphocyte countOrd ered By: Dr. Anderson on 08-18-2022 Lymphocytes Auto (Unsp spec) [#/Vol] 2.79 10*3/uL 0.83-4.51 [facility] Basophil percentageOrdered B y: Dr. Anderson on 08-18-2022 Basophil percentage 91 mg/dL 74-106 [facility] Basophil percentage 140 mmol/L 136-145 [facility] Basophil percentage 4.0 mmol/L 3.5-5.1 [facility] Basophil percentage 106 mmol/L 98-107 [facility] Basophils (Bld) [#/Vol] 5.9 10*3/uL 4.4-11.0 [facility] Basophils (Bld) [#/Vol] 1.9 10*3/uL 2.0-7.7 [facility] Basophils/100 WBC (Bld) 32.8 % 47-70 [facility] Basophils/100 WBC (Bld) 6.8 % 0-5 [facility] Basophils/100 WBC (Bld) 1.0 % 0-1 [facility] Basophil percentageOrdered B y: Claudia Anderson on 08-18-2022 Chloride [Moles/Vol] 106 mmol/L 98-107 [facility] Eosinophils/100 WBC (Bld) 6.8 % 0-5 [facility] Glucose [Mass/Vol] 91 mg/dL 74-106 [facility] Neutrophils (Bld) [#/Vol] 1.9 10*3/uL 2.0-7.7 [facility] Neutrophils/100 WBC (Bld) 32.8 % 47-70 [facility] Potassium [Moles/Vol] 4.0 mmol/L 3.5-5.1 [facility] Sodium [Moles/Vol] 140 mmol/L 136-145 [facility] WBC (Bld) [#/Vol] 5.9 10*3/uL 4.4-11.0 [facility] Blood erythrocytes count (nu mber/volume)Ordered By: Dr. Anderson on 08-18-2022 RBC (Bld) [#/Vol] 3.57 10*6/uL 4.2-5.4 [facility] Blood hemoglobin measurement (mass/volume)Ordered By: Dr. Anderson on 08-18-2022 Hemoglobin (Bld) [Mass/Vol] 11.0 g/dL 12.0-15.0 [facility] Blood lymphocytes/100 leukoc ytesOrdered By: Dr. Anderson on 08-18-2022 Lymphocytes/100 WBC (Bld) 47.2 % 19-41 [facility] Blood monocytes/100 leukocyt esOrdered By: Dr. Anderson on 08-18-2022 Monocytes/100 WBC (Bld) 12.0 % 0-10 [facility] Blood platelet mean volumeOr dered By: Dr. Anderson on 08-18-2022 Platelet mean volume (Bld) [Entitic vol] 9.8 fL 6.2-12.0 [facility] Determination of erythrocyte mean corpuscular volume (MCV)Ordered By: Dr. Anderson on 08-18-2022 MCV (RBC) [Entitic vol] 101.7 fL 81-99 [facility] Hematocrit Auto (Bld) [Volum e fraction]Ordered By: Dr. Anderson on 08-18-2022 Hematocrit (Bld) [Volume fraction] 36.3 % 37-47 [facility] Laboratory - Chemistry and C hemistry - challengeOrdered By: Claudia Anderson on 08-18-2022 CO2 [Moles/Vol] 30.0 mmol/L 21.0-32.0 [facility] Urea nitrogen/Creatinine [Mass ratio] 20.5 mg/mg 10-20 [facility] Laboratory - Hematology and Cell countsOrdered By: Claudia Anderson on 08-18-2022 Erythrocyte distribution width (RBC) [Entitic vol] 48.7 fL 35.1-43.9 [facility] Erythrocyte distribution width (RBC) [Ratio] 13.0 % 11.6-14.6 [facility] Immature granulocytes/100 WBC (Bld) 0.200 % 0.0-0.9 [facility] Comment on above: IG% - Immature Granu locytes (promyelocytes, myelocytes and metamyelocytes) > 1% indicates that a LEFT SHIFT is Present. MCH (RBC) [Entitic mass] 30.8 pg 27.0-32.0 [facility] Nucleated RBC/100 WBC (Bld) [Ratio] 0 % 0-5 [facility] MCHC Auto (RBC) [Mass/Vol]Or dered By: Dr. Anderson on 08-18-2022 MCHC (RBC) [Mass/Vol] 30.3 g/dL 32-36 [facility] No Panel InformationOrdered By: Claudia Anderson on 08-18-2022 Estimated GFR (MDRD) Amer 87 mL/min >60 [facility] Comment on above: GFR Calc Estimated GFR (MDRD) Non-Af Amer 72 mL/min >60 [facility] Comment on above: Non- GFR Calc No Panel InformationOrdered By: Dr. Anderson on 08-18-2022 30.8 pg 27.0-32.0 [facility] 13.0 % 11.6-14.6 [facility] 48.7 fl 35.1-43.9 [facility] 0.200 % 0.0-0.9 [facility] 0 % 0-5 [facility] 72 mL/min >60 [facility] 87 mL/min >60 [facility] 20.5 RATIO 10-20 [facility] 30.0 mmol/L 21.0-32.0 [facility] Platelets bldOrdered By: Dr. Anderson on 08-18-2022 Platelets (Bld) [#/Vol] 249 10*3/uL 150-450 [facility] Serum or plasma calcium moriah urement (mass/volume)Ordered By: Dr. Anderson on 08-18-2022 Calcium [Mass/Vol] 8.5 mg/dL 8.5-10.1 [facility] Serum or plasma creatinine m easurement (mass/volume)Ordered By: Dr. Anderson on 08-18-2022 Creatinine [Mass/Vol] 0.83 mg/dL 0.55-1.02 [facility] Comment on above: The validity of the calculated GFR & GFRAA in patients over 70 years has not been determined. Clinical correlation is essential. Serum or plasma urea nitroge n measurement (mass/volume)Ordered By: Dr. Anderson on 08-18-2022 Urea nitrogen [Mass/Vol] 17 mg/dL 7-18 [facility] Thin prep Papanicolaou smear with manual screeningOrdered By: Dr. Anderson on 08-18-2022 Thin prep Papanicolaou smear with manual screening 4 5-15 [facility] Absolute lymphocyte countOrd ered By: Dr. Anderson on 08-11-2022 Lymphocytes Auto (Unsp spec) [#/Vol] 2.41 10*3/uL 0.83-4.51 [facility] Basophil percentageOrdered B y: Dr. Anderson on 08-11-2022 Basophil percentage 89 mg/dL 74-106 [facility] Basophil percentage 141 mmol/L 136-145 [facility] Basophil percentage 4.5 mmol/L 3.5-5.1 [facility] Basophil percentage 108 mmol/L 98-107 [facility] Basophils (Bld) [#/Vol] 5.7 10*3/uL 4.4-11.0 [facility] Basophils (Bld) [#/Vol] 2.3 10*3/uL 2.0-7.7 [facility] Basophils/100 WBC (Bld) 39.6 % 47-70 [facility] Basophils/100 WBC (Bld) 5.1 % 0-5 [facility] Basophils/100 WBC (Bld) 1.1 % 0-1 [facility] Basophil percentageOrdered B y: Claudia Anderson on 08-11-2022 Chloride [Moles/Vol] 108 mmol/L 98-107 [facility] Eosinophils/100 WBC (Bld) 5.1 % 0-5 [facility] Glucose [Mass/Vol] 89 mg/dL 74-106 [facility] Neutrophils (Bld) [#/Vol] 2.3 10*3/uL 2.0-7.7 [facility] Neutrophils/100 WBC (Bld) 39.6 % 47-70 [facility] Potassium [Moles/Vol] 4.5 mmol/L 3.5-5.1 [facility] Sodium [Moles/Vol] 141 mmol/L 136-145 [facility] WBC (Bld) [#/Vol] 5.7 10*3/uL 4.4-11.0 [facility] Blood erythrocytes count (nu mber/volume)Ordered By: Dr. Anderson on 08-11-2022 RBC (Bld) [#/Vol] 3.81 10*6/uL 4.2-5.4 [facility] Blood hemoglobin measurement (mass/volume)Ordered By: Dr. Anderosn on 08-11-2022 Hemoglobin (Bld) [Mass/Vol] 12.0 g/dL 12.0-15.0 [facility] Blood lymphocytes/100 leukoc ytesOrdered By: Dr. Anderson on 08-11-2022 Lymphocytes/100 WBC (Bld) 42.5 % 19-41 [facility] Blood monocytes/100 leukocyt esOrdered By: Dr. Anderson on 08-11-2022 Monocytes/100 WBC (Bld) 11.5 % 0-10 [facility] Blood platelet mean volumeOr dered By: Dr. Anderson on 08-11-2022 Platelet mean volume (Bld) [Entitic vol] 9.7 fL 6.2-12.0 [facility] Determination of erythrocyte mean corpuscular volume (MCV)Ordered By: Dr. Anderson on 08-11-2022 MCV (RBC) [Entitic vol] 101.6 fL 81-99 [facility] Hematocrit Auto (Bld) [Volum e fraction]Ordered By: Dr. Anderson on 08-11-2022 Hematocrit (Bld) [Volume fraction] 38.7 % 37-47 [facility] Laboratory - Chemistry and C hemistry - challengeOrdered By: Claudia Anderson on 08-11-2022 CO2 [Moles/Vol] 28.0 mmol/L 21.0-32.0 [facility] Urea nitrogen/Creatinine [Mass ratio] 17.7 mg/mg 10-20 [facility] Laboratory - Hematology and Cell countsOrdered By: Claudia Anderson on 05-24-2023 Erythrocyte distribution width (RBC) [Entitic vol] 48.9 fL 35.1-43.9 [facility] Erythrocyte distribution width (RBC) [Ratio] 13.0 % 11.6-14.6 [facility] Immature granulocytes/100 WBC (Bld) 0.200 % 0.0-0.9 [facility] Comment on above: IG% - Immature Granu locytes (promyelocytes, myelocytes and metamyelocytes) > 1% indicates that a LEFT SHIFT is Present. MCH (RBC) [Entitic mass] 31.5 pg 27.0-32.0 [facility] Nucleated RBC/100 WBC (Bld) [Ratio] 0 % 0-5 [facility] MCHC Auto (RBC) [Mass/Vol]Or dered By: Dr. Anderson on 08-11-2022 MCHC (RBC) [Mass/Vol] 31.0 g/dL 32-36 [facility] No Panel InformationOrdered By: Claudia Anderson on 08-11-2022 Estimated GFR (MDRD) Amer 92 mL/min >60 [facility] Comment on above: GFR Calc Estimated GFR (MDRD) Non-Af Amer 76 mL/min >60 [facility] Comment on above: Non- GFR Calc No Panel InformationOrdered By: Dr. Anderson on 08-11-2022 31.5 pg 27.0-32.0 [facility] 13.0 % 11.6-14.6 [facility] 48.9 fl 35.1-43.9 [facility] 0.200 % 0.0-0.9 [facility] 0 % 0-5 [facility] 76 mL/min >60 [facility] 92 mL/min >60 [facility] 17.7 RATIO 10-20 [facility] 28.0 mmol/L 21.0-32.0 [facility] Platelets bldOrdered By: Dr. Anderson on 08-11-2022 Platelets (Bld) [#/Vol] 253 10*3/uL 150-450 [facility] Serum or plasma calcium moriah urement (mass/volume)Ordered By: Dr. Anderson on 08-11-2022 Calcium [Mass/Vol] 8.7 mg/dL 8.5-10.1 [facility] Serum or plasma creatinine m easurement (mass/volume)Ordered By: Dr. Anderson on 08-11-2022 Creatinine [Mass/Vol] 0.79 mg/dL 0.55-1.02 [facility] Comment on above: The validity of the calculated GFR & GFRAA in patients over 70 years has not been determined. Clinical correlation is essential. Serum or plasma urea nitroge n measurement (mass/volume)Ordered By: Dr. Anderson on 08-11-2022 Urea nitrogen [Mass/Vol] 14 mg/dL 7-18 [facility] Thin prep Papanicolaou smear with manual screeningOrdered By: Dr. Anderson on 08-11-2022 Thin prep Papanicolaou smear with manual screening 5 5-15 [facility] Basophil percentageOrdered B y: Medardo Mayo on 08-10-2022 Ammonia (P) [Moles/Vol] 56.0 umol/L [facility] Basophil percentage 6.0 g/dL 6.4-8.2 [facility] Basophil percentage 0.20 mg/dL 0.20-1.00 [facility] Basophil percentage 56.0 umol/L [facility] Bilirubin [Mass/Vol] 0.20 mg/dL 0.20-1.00 [facility] Comment on above: For patients on eltr ombopag therapy, use of Dimension [employer] TBIL is not recommended. Protein [Mass/Vol] 6.0 g/dL 6.4-8.2 [facility] Direct bilirubinOrdered By: Medardo Mayo on 08-10-2022 Bilirubin.direct [Mass/Vol] 0.07 mg/dL 0.00-0.30 [facility] Laboratory - Chemistry and C hemistry - challengeOrdered By: Medardo Mayo on 08-10-2022 ALP [Catalytic activity/Vol] 76 U/L 45-117 [facility] ALT [Catalytic activity/Vol] 11 U/L 13-56 [facility] Globulin (S) [Mass/Vol] 3.3 g/dL 2.2-4.2 [facility] No Panel InformationOrdered By: Medardo Mayo on 08-10-2022 Valproic Acid (Depakene) Level 29 ug/mL 50-100 [facility] Whole Blood Vitamin B1 Level 94.0 nmol/L 66.5-200.0 [facility] Comment on above: Performed at: - [address] [id number] Director: Marino Mckeon MD, Phone: [phone] 3.3 g/dL 2.2-4.2 [facility] 76 U/L 45-117 [facility] 11 U/L 13-56 [facility] 29 ug/mL 50-100 [facility] 94.0 nmol/L 66.5-200.0 [facility] Serum or plasma albumin moriah urement (mass/volume)Ordered By: Medardo Mayo on 08-10-2022 Albumin [Mass/Vol] 2.7 g/dL 3.2-5.0 [facility] Serum or plasma folate measu rement (mass/volume)Ordered By: Medardo Mayo on 08-10-2022 Folate [Mass/Vol] 2.60 ng/mL 3.1-55.4 [facility] Serum or plasma phenobarbita l detectionOrdered By: Medrado Mayo on 08-10-2022 PHENobarbital Ql 19 ug/mL 15-40 [facility] Comment on above: Detection Limit = 3 Serum or plasma primidone me asurement (mass/volume)Ordered By: Medardo Mayo on 08-10-2022 Primidone [Mass/Vol] 7.1 ug/mL 5.0-12.0 [facility] Comment on above: Detection Limit = 0. 3 <0.3 indicates None Detected Thin prep Papanicolaou smear with manual screeningOrdered By: Medardo Mayo on 08-10-2022 Thin prep Papanicolaou smear with manual screening 13 U/L 15-37 [facility] Absolute lymphocyte countOrd ered By: Dr. Anderson on 08-04-2022 Lymphocytes Auto (Unsp spec) [#/Vol] 2.98 10*3/uL 0.83-4.51 [facility] Basophil percentageOrdered B y: Dr. Anderson on 08-04-2022 Basophil percentage 78 mg/dL 74-106 [facility] Basophil percentage 140 mmol/L 136-145 [facility] Basophil percentage 4.7 mmol/L 3.5-5.1 [facility] Basophil percentage 107 mmol/L 98-107 [facility] Basophils (Bld) [#/Vol] 7.0 10*3/uL 4.4-11.0 [facility] Basophils (Bld) [#/Vol] 2.7 10*3/uL 2.0-7.7 [facility] Basophils/100 WBC (Bld) 37.7 % 47-70 [facility] Basophils/100 WBC (Bld) 7.3 % 0-5 [facility] Basophils/100 WBC (Bld) 0.9 % 0-1 [facility] Basophil percentageOrdered B y: Claudia Anderson on 08-04-2022 Chloride [Moles/Vol] 107 mmol/L 98-107 [facility] Eosinophils/100 WBC (Bld) 7.3 % 0-5 [facility] Glucose [Mass/Vol] 78 mg/dL 74-106 [facility] Neutrophils (Bld) [#/Vol] 2.7 10*3/uL 2.0-7.7 [facility] Neutrophils/100 WBC (Bld) 37.7 % 47-70 [facility] Potassium [Moles/Vol] 4.7 mmol/L 3.5-5.1 [facility] Sodium [Moles/Vol] 140 mmol/L 136-145 [facility] WBC (Bld) [#/Vol] 7.0 10*3/uL 4.4-11.0 [facility] Blood erythrocytes count (nu mber/volume)Ordered By: Dr. Anderson on 08-04-2022 RBC (Bld) [#/Vol] 3.90 10*6/uL 4.2-5.4 [facility] Blood hemoglobin measurement (mass/volume)Ordered By: Dr. Anderson on 08-04-2022 Hemoglobin (Bld) [Mass/Vol] 12.3 g/dL 12.0-15.0 [facility] Blood lymphocytes/100 leukoc ytesOrdered By: Dr. Anderson on 08-04-2022 Lymphocytes/100 WBC (Bld) 42.5 % 19-41 [facility] Blood monocytes/100 leukocyt esOrdered By: Dr. Anderson on 08-04-2022 Monocytes/100 WBC (Bld) 11.3 % 0-10 [facility] Blood platelet mean volumeOr dered By: Dr. Anderson on 08-04-2022 Platelet mean volume (Bld) [Entitic vol] 10.0 fL 6.2-12.0 [facility] Determination of erythrocyte mean corpuscular volume (MCV)Ordered By: Dr. Anderson on 08-04-2022 MCV (RBC) [Entitic vol] 100.8 fL 81-99 [facility] Hematocrit Auto (Bld) [Volum e fraction]Ordered By: Dr. Anderson on 08-04-2022 Hematocrit (Bld) [Volume fraction] 39.3 % 37-47 [facility] Laboratory - Chemistry and C hemistry - challengeOrdered By: Claudia Anderson on 08-04-2022 CO2 [Moles/Vol] 29.0 mmol/L 21.0-32.0 [facility] Urea nitrogen/Creatinine [Mass ratio] 22.9 mg/mg 10-20 [facility] Laboratory - Hematology and Cell countsOrdered By: Claudia Anderson on 08-04-2022 Erythrocyte distribution width (RBC) [Entitic vol] 48.8 fL 35.1-43.9 [facility] Erythrocyte distribution width (RBC) [Ratio] 13.2 % 11.6-14.6 [facility] Immature granulocytes/100 WBC (Bld) 0.300 % 0.0-0.9 [facility] Comment on above: IG% - Immature Granu locytes (promyelocytes, myelocytes and metamyelocytes) > 1% indicates that a LEFT SHIFT is Present. MCH (RBC) [Entitic mass] 31.5 pg 27.0-32.0 [facility] Nucleated RBC/100 WBC (Bld) [Ratio] 0 % 0-5 [facility] MCHC Auto (RBC) [Mass/Vol]Or dered By: Dr. Anderson on 08-04-2022 MCHC (RBC) [Mass/Vol] 31.3 g/dL 32-36 [facility] No Panel InformationOrdered By: Claudia Anderson on 08-04-2022 Estimated GFR (MDRD) Amer 107 mL/min >60 [facility] Comment on above: GFR Calc Estimated GFR (MDRD) Non-Af Amer 88 mL/min >60 [facility] Comment on above: Non- GFR Calc No Panel InformationOrdered By: Dr. Anderson on 08-04-2022 31.5 pg 27.0-32.0 [facility] 13.2 % 11.6-14.6 [facility] 48.8 fl 35.1-43.9 [facility] 0.300 % 0.0-0.9 [facility] 0 % 0-5 [facility] 88 mL/min >60 [facility] 107 mL/min >60 [facility] 22.9 RATIO 10-20 [facility] 29.0 mmol/L 21.0-32.0 [facility] Platelets bldOrdered By: Dr. Anderson on 08-04-2022 Platelets (Bld) [#/Vol] 280 10*3/uL 150-450 [facility] Serum or plasma calcium moriah urement (mass/volume)Ordered By: Dr. Anderson on 08-04-2022 Calcium [Mass/Vol] 8.5 mg/dL 8.5-10.1 [facility] Serum or plasma creatinine m easurement (mass/volume)Ordered By: Dr. Anderson on 08-04-2022 Creatinine [Mass/Vol] 0.70 mg/dL 0.55-1.02 [facility] Comment on above: The validity of the calculated GFR & GFRAA in patients over 70 years has not been determined. Clinical correlation is essential. Serum or plasma urea nitroge n measurement (mass/volume)Ordered By: Dr. Anderson on 08-04-2022 Urea nitrogen [Mass/Vol] 16 mg/dL 7-18 [facility] Thin prep Papanicolaou smear with manual screeningOrdered By: Dr. Anderson on 08-04-2022 Thin prep Papanicolaou smear with manual screening 4 5-15 [facility] Absolute lymphocyte countOrd ered By: Dr. Anderson on 07-28-2022 Lymphocytes Auto (Unsp spec) [#/Vol] 2.06 10*3/uL 0.83-4.51 [facility] Basophil percentageOrdered B y: Dr. Anderson on 07-28-2022 Basophil percentage 78 mg/dL 74-106 [facility] Basophil percentage 142 mmol/L 136-145 [facility] Basophil percentage 4.2 mmol/L 3.5-5.1 [facility] Basophil percentage 106 mmol/L 98-107 [facility] Basophils (Bld) [#/Vol] 8.0 10*3/uL 4.4-11.0 [facility] Basophils (Bld) [#/Vol] 4.7 10*3/uL 2.0-7.7 [facility] Basophils/100 WBC (Bld) 58.9 % 47-70 [facility] Basophils/100 WBC (Bld) 5.0 % 0-5 [facility] Basophils/100 WBC (Bld) 0.5 % 0-1 [facility] Basophil percentageOrdered B y: Claudia Anderson on 07-28-2022 Chloride [Moles/Vol] 106 mmol/L 98-107 [facility] Eosinophils/100 WBC (Bld) 5.0 % 0-5 [facility] Glucose [Mass/Vol] 78 mg/dL 74-106 [facility] Neutrophils (Bld) [#/Vol] 4.7 10*3/uL 2.0-7.7 [facility] Neutrophils/100 WBC (Bld) 58.9 % 47-70 [facility] Potassium [Moles/Vol] 4.2 mmol/L 3.5-5.1 [facility] Sodium [Moles/Vol] 142 mmol/L 136-145 [facility] WBC (Bld) [#/Vol] 8.0 10*3/uL 4.4-11.0 [facility] Blood erythrocytes count (nu mber/volume)Ordered By: Dr. Anderson on 07-28-2022 RBC (Bld) [#/Vol] 3.84 10*6/uL 4.2-5.4 [facility] Blood hemoglobin measurement (mass/volume)Ordered By: Dr. Anderson on 07-28-2022 Hemoglobin (Bld) [Mass/Vol] 11.9 g/dL 12.0-15.0 [facility] Blood lymphocytes/100 leukoc ytesOrdered By: Dr. Anderson on 07-28-2022 Lymphocytes/100 WBC (Bld) 25.8 % 19-41 [facility] Blood monocytes/100 leukocyt esOrdered By: Dr. Anderson on 07-28-2022 Monocytes/100 WBC (Bld) 9.5 % 0-10 [facility] Blood platelet mean volumeOr dered By: Dr. Anderson on 07-28-2022 Platelet mean volume (Bld) [Entitic vol] 9.8 fL 6.2-12.0 [facility] Determination of erythrocyte mean corpuscular volume (MCV)Ordered By: Dr. Anderson on 07-28-2022 MCV (RBC) [Entitic vol] 102.6 fL 81-99 [facility] Hematocrit Auto (Bld) [Volum e fraction]Ordered By: Dr. Anderson on 07-28-2022 Hematocrit (Bld) [Volume fraction] 39.4 % 37-47 [facility] Laboratory - Chemistry and C hemistry - challengeOrdered By: Claudia Anderson on 07-28-2022 CO2 [Moles/Vol] 31.0 mmol/L 21.0-32.0 [facility] Urea nitrogen/Creatinine [Mass ratio] 22.5 mg/mg 10-20 [facility] Laboratory - Hematology and Cell countsOrdered By: Claudia Anderson on 07-28-2022 Erythrocyte distribution width (RBC) [Entitic vol] 48.7 fL 35.1-43.9 [facility] Erythrocyte distribution width (RBC) [Ratio] 13.0 % 11.6-14.6 [facility] Immature granulocytes/100 WBC (Bld) 0.300 % 0.0-0.9 [facility] Comment on above: IG% - Immature Granu locytes (promyelocytes, myelocytes and metamyelocytes) > 1% indicates that a LEFT SHIFT is Present. MCH (RBC) [Entitic mass] 31.0 pg 27.0-32.0 [facility] Nucleated RBC/100 WBC (Bld) [Ratio] 0 % 0-5 [facility] Auto (RBC) [Mass/Vol]Or dered By: Dr. Anderson on 07-28-2022 MCHC (RBC) [Mass/Vol] 30.2 g/dL 32-36 [facility] No Panel InformationOrdered By: Claudia Anderson on 07-28-2022 Estimated GFR (MDRD) Amer 85 mL/min >60 [facility] Comment on above: GFR Calc Estimated GFR (MDRD) Non-Af Amer 71 mL/min >60 [facility] Comment on above: Non- GFR Calc No Panel InformationOrdered By: Dr. Anderson on 07-28-2022 31.0 pg 27.0-32.0 [facility] 13.0 % 11.6-14.6 [facility] 48.7 fl 35.1-43.9 [facility] 0.300 % 0.0-0.9 [facility] 0 % 0-5 [facility] 71 mL/min >60 [facility] 85 mL/min >60 [facility] 22.5 RATIO 10-20 [facility] 31.0 mmol/L 21.0-32.0 [facility] Platelets bldOrdered By: Dr. Anderson on 07-28-2022 Platelets (Bld) [#/Vol] 246 10*3/uL 150-450 [facility] Serum or plasma calcium moriah urement (mass/volume)Ordered By: Dr. Anderson on 07-28-2022 Calcium [Mass/Vol] 8.7 mg/dL 8.5-10.1 [facility] Serum or plasma creatinine m easurement (mass/volume)Ordered By: Dr. Anderson on 07-28-2022 Creatinine [Mass/Vol] 0.85 mg/dL 0.55-1.02 [facility] Comment on above: The validity of the calculated GFR & GFRAA in patients over 70 years has not been determined. Clinical correlation is essential. Serum or plasma urea nitroge n measurement (mass/volume)Ordered By: Dr. Anderson on 07-28-2022 Urea nitrogen [Mass/Vol] 19 mg/dL 7-18 [facility] Thin prep Papanicolaou smear with manual screeningOrdered By: Dr. Anderson on 07-28-2022 Thin prep Papanicolaou smear with manual screening 5 5-15 [facility] Absolute lymphocyte countOrd ered By: Dr. Anderson on 07-21-2022 Lymphocytes Auto (Unsp spec) [#/Vol] 2.90 10*3/uL 0.83-4.51 [facility] Basophil percentageOrdered B y: Dr. Anderson on 07-21-2022 Basophil percentage 90 mg/dL 74-106 [facility] Basophil percentage 140 mmol/L 136-145 [facility] Basophil percentage 4.4 mmol/L 3.5-5.1 [facility] Basophil percentage 109 mmol/L 98-107 [facility] Basophils (Bld) [#/Vol] 8.0 10*3/uL 4.4-11.0 [facility] Basophils (Bld) [#/Vol] 3.5 10*3/uL 2.0-7.7 [facility] Basophils/100 WBC (Bld) 0.5 % 0-1 [facility] Basophils/100 WBC (Bld) 44.4 % 47-70 [facility] Basophils/100 WBC (Bld) 6.7 % 0-5 [facility] Chloride [Moles/Vol] 109 mmol/L 98-107 [facility] Eosinophils/100 WBC (Bld) 6.7 % 0-5 [facility] Glucose [Mass/Vol] 90 mg/dL 74-106 [facility] Neutrophils (Bld) [#/Vol] 3.5 10*3/uL 2.0-7.7 [facility] Neutrophils/100 WBC (Bld) 44.4 % 47-70 [facility] Potassium [Moles/Vol] 4.4 mmol/L 3.5-5.1 [facility] Sodium [Moles/Vol] 140 mmol/L 136-145 [facility] WBC (Bld) [#/Vol] 8.0 10*3/uL 4.4-11.0 [facility] Blood erythrocytes count (nu mber/volume)Ordered By: Dr. Anderson on 07-21-2022 RBC (Bld) [#/Vol] 3.77 10*6/uL 4.2-5.4 [facility] Blood hemoglobin measurement (mass/volume)Ordered By: Dr. Anderson on 07-21-2022 Hemoglobin (Bld) [Mass/Vol] 11.7 g/dL 12.0-15.0 [facility] Blood lymphocytes/100 leukoc ytesOrdered By: Dr. Anderson on 07-21-2022 Lymphocytes/100 WBC (Bld) 36.5 % 19-41 [facility] Blood monocytes/100 leukocyt esOrdered By: Dr. Anderson on 07-21-2022 Monocytes/100 WBC (Bld) 11.6 % 0-10 [facility] Blood platelet mean volumeOr dered By: Dr. Anderson on 07-21-2022 Platelet mean volume (Bld) [Entitic vol] 9.9 fL 6.2-12.0 [facility] Determination of erythrocyte mean corpuscular volume (MCV)Ordered By: Dr. Anderson on 07-21-2022 MCV (RBC) [Entitic vol] 102.4 fL 81-99 [facility] Hematocrit Auto (Bld) [Volum e fraction]Ordered By: Dr. Anderson on 07-21-2022 Hematocrit (Bld) [Volume fraction] 38.6 % 37-47 [facility] Laboratory - Chemistry and C hemistry - challengeOrdered By: Dr. Anderson on 07-21-2022 CO2 [Moles/Vol] 29.0 mmol/L 21.0-32.0 [facility] Urea nitrogen/Creatinine [Mass ratio] 27.6 mg/mg 10-20 [facility] Laboratory - Hematology and Cell countsOrdered By: Dr. Anderson on 07-21-2022 Erythrocyte distribution width (RBC) [Entitic vol] 49.7 fL 35.1-43.9 [facility] Erythrocyte distribution width (RBC) [Ratio] 13.1 % 11.6-14.6 [facility] Immature granulocytes/100 WBC (Bld) 0.300 % 0.0-0.9 [facility] Comment on above: IG% - Immature Granu locytes (promyelocytes, myelocytes and metamyelocytes) > 1% indicates that a LEFT SHIFT is Present. MCH (RBC) [Entitic mass] 31.0 pg 27.0-32.0 [facility] Nucleated RBC/100 WBC (Bld) [Ratio] 0 % 0-5 [facility] MCHC Auto (RBC) [Mass/Vol]Or dered By: Dr. Anderson on 07-21-2022 MCHC (RBC) [Mass/Vol] 30.3 g/dL 32-36 [facility] No Panel InformationOrdered By: Dr. Anderson on 07-21-2022 Estimated GFR (MDRD) Amer 97 mL/min >60 [facility] Comment on above: GFR Calc Estimated GFR (MDRD) Non-Af Amer 80 mL/min >60 [facility] Comment on above: Non- GFR Calc 31.0 pg 27.0-32.0 [facility] 13.1 % 11.6-14.6 [facility] 49.7 fl 35.1-43.9 [facility] 0.300 % 0.0-0.9 [facility] 0 % 0-5 [facility] 80 mL/min >60 [facility] 97 mL/min >60 [facility] 27.6 RATIO 10-20 [facility] 29.0 mmol/L 21.0-32.0 [facility] Platelets bldOrdered By: Dr. Anderson on 07-21-2022 Platelets (Bld) [#/Vol] 204 10*3/uL 150-450 [facility] Serum or plasma calcium moriah urement (mass/volume)Ordered By: Dr. Anderson on 07-21-2022 Calcium [Mass/Vol] 8.4 mg/dL 8.5-10.1 [facility] Serum or plasma creatinine m easurement (mass/volume)Ordered By: Dr. Anderson on 07-21-2022 Creatinine [Mass/Vol] 0.76 mg/dL 0.55-1.02 [facility] Comment on above: The validity of the calculated GFR & GFRAA in patients over 70 years has not been determined. Clinical correlation is essential. Serum or plasma urea nitroge n measurement (mass/volume)Ordered By: Dr. Anderson on 07-21-2022 Urea nitrogen [Mass/Vol] 21 mg/dL 7-18 [facility] Thin prep Papanicolaou smear with manual screeningOrdered By: Dr. Anderson on 07-21-2022 Thin prep Papanicolaou smear with manual screening 2 5-15 [facility] Absolute lymphocyte countOrd ered By: Dr. Anderson on 07-14-2022 Lymphocytes Auto (Unsp spec) [#/Vol] 3.15 10*3/uL 0.83-4.51 [facility] Basophil percentageOrdered B y: Dr. Anderson on 07-14-2022 Basophil percentage 83 mg/dL 74-106 [facility] Basophil percentage 137 mmol/L 136-145 [facility] Basophil percentage 4.5 mmol/L 3.5-5.1 [facility] Basophil percentage 107 mmol/L 98-107 [facility] Basophils (Bld) [#/Vol] 7.2 10*3/uL 4.4-11.0 [facility] Basophils (Bld) [#/Vol] 2.8 10*3/uL 2.0-7.7 [facility] Basophils/100 WBC (Bld) 1.0 % 0-1 [facility] Basophils/100 WBC (Bld) 38.6 % 47-70 [facility] Basophils/100 WBC (Bld) 6.4 % 0-5 [facility] Chloride [Moles/Vol] 107 mmol/L 98-107 [facility] Eosinophils/100 WBC (Bld) 6.4 % 0-5 [facility] Glucose [Mass/Vol] 83 mg/dL 74-106 [facility] Neutrophils (Bld) [#/Vol] 2.8 10*3/uL 2.0-7.7 [facility] Neutrophils/100 WBC (Bld) 38.6 % 47-70 [facility] Potassium [Moles/Vol] 4.5 mmol/L 3.5-5.1 [facility] Sodium [Moles/Vol] 137 mmol/L 136-145 [facility] WBC (Bld) [#/Vol] 7.2 10*3/uL 4.4-11.0 [facility] Blood erythrocytes count (nu mber/volume)Ordered By: Dr. Anderson on 07-14-2022 RBC (Bld) [#/Vol] 3.75 10*6/uL 4.2-5.4 [facility] Blood hemoglobin measurement (mass/volume)Ordered By: Dr. Anderson on 07-14-2022 Hemoglobin (Bld) [Mass/Vol] 11.8 g/dL 12.0-15.0 [facility] Blood lymphocytes/100 leukoc ytesOrdered By: Dr. Anderson on 07-14-2022 Lymphocytes/100 WBC (Bld) 43.8 % 19-41 [facility] Blood monocytes/100 leukocyt esOrdered By: Dr. Anderson on 07-14-2022 Monocytes/100 WBC (Bld) 9.9 % 0-10 [facility] Blood platelet mean volumeOr dered By: Dr. Anderson on 07-14-2022 Platelet mean volume (Bld) [Entitic vol] 9.6 fL 6.2-12.0 [facility] Determination of erythrocyte mean corpuscular volume (MCV)Ordered By: Dr. Anderson on 07-14-2022 MCV (RBC) [Entitic vol] 101.3 fL 81-99 [facility] Hematocrit Auto (Bld) [Volum e fraction]Ordered By: Dr. Anderson on 07-14-2022 Hematocrit (Bld) [Volume fraction] 38.0 % 37-47 [facility] Laboratory - Chemistry and C hemistry - challengeOrdered By: Dr. Anderson on 07-14-2022 CO2 [Moles/Vol] 31.0 mmol/L 21.0-32.0 [facility] Urea nitrogen/Creatinine [Mass ratio] 27.0 mg/mg 10-20 [facility] Laboratory - Hematology and Cell countsOrdered By: Dr. Anderson on 07-14-2022 Erythrocyte distribution width (RBC) [Entitic vol] 49.7 fL 35.1-43.9 [facility] Erythrocyte distribution width (RBC) [Ratio] 13.2 % 11.6-14.6 [facility] Immature granulocytes/100 WBC (Bld) 0.300 % 0.0-0.9 [facility] Comment on above: IG% - Immature Granu locytes (promyelocytes, myelocytes and metamyelocytes) > 1% indicates that a LEFT SHIFT is Present. MCH (RBC) [Entitic mass] 31.5 pg 27.0-32.0 [facility] Nucleated RBC/100 WBC (Bld) [Ratio] 0 % 0-5 [facility] MCHC Auto (RBC) [Mass/Vol]Or dered By: Dr. Anderson on 07-14-2022 MCHC (RBC) [Mass/Vol] 31.1 g/dL 32-36 [facility] No Panel InformationOrdered By: Dr. Anderson on 07-14-2022 Estimated GFR (MDRD) Amer 99 mL/min >60 [facility] Comment on above: GFR Calc Estimated GFR (MDRD) Non-Af Amer 82 mL/min >60 [facility] Comment on above: Non- GFR Calc 31.5 pg 27.0-32.0 [facility] 13.2 % 11.6-14.6 [facility] 49.7 fl 35.1-43.9 [facility] 0.300 % 0.0-0.9 [facility] 0 % 0-5 [facility] 82 mL/min >60 [facility] 99 mL/min >60 [facility] 27.0 RATIO 10-20 [facility] 31.0 mmol/L 21.0-32.0 [facility] Platelets bldOrdered By: Dr. Anderson on 07-14-2022 Platelets (Bld) [#/Vol] 252 10*3/uL 150-450 [facility] Serum or plasma calcium moriah urement (mass/volume)Ordered By: Dr. Anderson on 07-14-2022 Calcium [Mass/Vol] 8.6 mg/dL 8.5-10.1 [facility] Serum or plasma creatinine m easurement (mass/volume)Ordered By: Dr. Anderson on 07-14-2022 Creatinine [Mass/Vol] 0.74 mg/dL 0.55-1.02 [facility] Comment on above: The validity of the calculated GFR & GFRAA in patients over 70 years has not been determined. Clinical correlation is essential. Serum or plasma urea nitroge n measurement (mass/volume)Ordered By: Dr. Anderson on 07-14-2022 Urea nitrogen [Mass/Vol] 20 mg/dL 7-18 [facility] Thin prep Papanicolaou smear with manual screeningOrdered By: Dr. Anderson on 07-14-2022 Thin prep Papanicolaou smear with manual screening -1 5-15 [facility] Absolute lymphocyte countOrd ered By: Dr. Anderson on 07-07-2022 Lymphocytes Auto (Unsp spec) [#/Vol] 3.11 10*3/uL 0.83-4.51 [facility] Basophil percentageOrdered B y: Dr. Anderson on 07-07-2022 Basophil percentage 86 mg/dL 74-106 [facility] Basophil percentage 136 mmol/L 136-145 [facility] Basophil percentage 4.5 mmol/L 3.5-5.1 [facility] Basophil percentage 104 mmol/L 98-107 [facility] Basophils (Bld) [#/Vol] 8.1 10*3/uL 4.4-11.0 [facility] Basophils (Bld) [#/Vol] 3.5 10*3/uL 2.0-7.7 [facility] Basophils/100 WBC (Bld) 1.0 % 0-1 [facility] Basophils/100 WBC (Bld) 43.8 % 47-70 [facility] Basophils/100 WBC (Bld) 6.0 % 0-5 [facility] Chloride [Moles/Vol] 104 mmol/L 98-107 [facility] Eosinophils/100 WBC (Bld) 6.0 % 0-5 [facility] Glucose [Mass/Vol] 86 mg/dL 74-106 [facility] Neutrophils (Bld) [#/Vol] 3.5 10*3/uL 2.0-7.7 [facility] Neutrophils/100 WBC (Bld) 43.8 % 47-70 [facility] Potassium [Moles/Vol] 4.5 mmol/L 3.5-5.1 [facility] Sodium [Moles/Vol] 136 mmol/L 136-145 [facility] WBC (Bld) [#/Vol] 8.1 10*3/uL 4.4-11.0 [facility] Blood erythrocytes count (nu mber/volume)Ordered By: Dr. Anderson on 07-07-2022 RBC (Bld) [#/Vol] 3.77 10*6/uL 4.2-5.4 [facility] Blood hemoglobin measurement (mass/volume)Ordered By: Dr. Anderson on 07-07-2022 Hemoglobin (Bld) [Mass/Vol] 12.0 g/dL 12.0-15.0 [facility] Blood lymphocytes/100 leukoc ytesOrdered By: Dr. Anderson on 07-07-2022 Lymphocytes/100 WBC (Bld) 38.6 % 19-41 [facility] Blood monocytes/100 leukocyt esOrdered By: Dr. Anderson on 07-07-2022 Monocytes/100 WBC (Bld) 10.2 % 0-10 [facility] Blood platelet mean volumeOr dered By: Dr. Anderson on 07-07-2022 Platelet mean volume (Bld) [Entitic vol] 9.8 fL 6.2-12.0 [facility] Determination of erythrocyte mean corpuscular volume (MCV)Ordered By: Dr. Anderson on 07-07-2022 MCV (RBC) [Entitic vol] 101.9 fL 81-99 [facility] Hematocrit Auto (Bld) [Volum e fraction]Ordered By: Dr. Anderson on 07-07-2022 Hematocrit (Bld) [Volume fraction] 38.4 % 37-47 [facility] Laboratory - Chemistry and C hemistry - challengeOrdered By: Dr. Anderson on 07-07-2022 CO2 [Moles/Vol] 29.0 mmol/L 21.0-32.0 [facility] Urea nitrogen/Creatinine [Mass ratio] 28.3 mg/mg 10-20 [facility] - Hematology and Cell countsOrdered By: Dr. Anderson on 07-07-2022 Erythrocyte distribution width (RBC) [Entitic vol] 49.1 fL 35.1-43.9 [facility] Erythrocyte distribution width (RBC) [Ratio] 13.2 % 11.6-14.6 [facility] Immature granulocytes/100 WBC (Bld) 0.400 % 0.0-0.9 [facility] Comment on above: IG% - Immature Granu locytes (promyelocytes, myelocytes and metamyelocytes) > 1% indicates that a LEFT SHIFT is Present. MCH (RBC) [Entitic mass] 31.8 pg 27.0-32.0 [facility] Nucleated RBC/100 WBC (Bld) [Ratio] 0 % 0-5 [facility] MCHC Auto (RBC) [Mass/Vol]Or dered By: Dr. Anderson on 07-07-2022 MCHC (RBC) [Mass/Vol] 31.3 g/dL 32-36 [facility] No Panel InformationOrdered By: Dr. Anderson on 07-07-2022 Estimated GFR (MDRD) Amer 99 mL/min >60 [facility] Comment on above: GFR Calc Estimated GFR (MDRD) Non-Af Amer 82 mL/min >60 [facility] Comment on above: Non- GFR Calc 31.8 pg 27.0-32.0 [facility] 13.2 % 11.6-14.6 [facility] 49.1 fl 35.1-43.9 [facility] 0.400 % 0.0-0.9 [facility] 0 % 0-5 [facility] 82 mL/min >60 [facility] 99 mL/min >60 [facility] 28.3 RATIO 10-20 [facility] 29.0 mmol/L 21.0-32.0 [facility] Platelets bldOrdered By: Dr. Anderson on 07-07-2022 Platelets (Bld) [#/Vol] 305 10*3/uL 150-450 [facility] Serum or plasma calcium moriah urement (mass/volume)Ordered By: Dr. Anderson on 07-07-2022 Calcium [Mass/Vol] 8.5 mg/dL 8.5-10.1 [facility] Serum or plasma creatinine m easurement (mass/volume)Ordered By: Dr. Anderson on 07-07-2022 Creatinine [Mass/Vol] 0.74 mg/dL 0.55-1.02 [facility] Comment on above: The validity of the calculated GFR & GFRAA in patients over 70 years has not been determined. Clinical correlation is essential. Serum or plasma urea nitroge n measurement (mass/volume)Ordered By: Dr. Anderson on 07-07-2022 Urea nitrogen [Mass/Vol] 21 mg/dL 7-18 [facility] Thin prep Papanicolaou smear with manual screeningOrdered By: Dr. Anderson on 07-07-2022 Thin prep Papanicolaou smear with manual screening 3 5-15 [facility] Absolute lymphocyte countOrd ered By: Dr. nAderson on 06-30-2022 Lymphocytes Auto (Unsp spec) [#/Vol] 2.76 10*3/uL 0.83-4.51 [facility] Basophil percentageOrdered B y: Dr. Anderson on 06-30-2022 Basophil percentage 88 mg/dL 74-106 [facility] Basophil percentage 138 mmol/L 136-145 [facility] Basophil percentage 4.5 mmol/L 3.5-5.1 [facility] Basophil percentage 106 mmol/L 98-107 [facility] Basophils (Bld) [#/Vol] 6.6 10*3/uL 4.4-11.0 [facility] Basophils (Bld) [#/Vol] 2.4 10*3/uL 2.0-7.7 [facility] Basophils/100 WBC (Bld) 0.8 % 0-1 [facility] Basophils/100 WBC (Bld) 35.5 % 47-70 [facility] Basophils/100 WBC (Bld) 10.8 % 0-5 [facility] Chloride [Moles/Vol] 106 mmol/L 98-107 [facility] Eosinophils/100 WBC (Bld) 10.8 % 0-5 [facility] Glucose [Mass/Vol] 88 mg/dL 74-106 [facility] Neutrophils (Bld) [#/Vol] 2.4 10*3/uL 2.0-7.7 [facility] Neutrophils/100 WBC (Bld) 35.5 % 47-70 [facility] Potassium [Moles/Vol] 4.5 mmol/L 3.5-5.1 [facility] Sodium [Moles/Vol] 138 mmol/L 136-145 [facility] WBC (Bld) [#/Vol] 6.6 10*3/uL 4.4-11.0 [facility] Blood erythrocytes count (nu mber/volume)Ordered By: Dr. Anderson on 06-30-2022 RBC (Bld) [#/Vol] 3.62 10*6/uL 4.2-5.4 [facility] Blood hemoglobin measurement (mass/volume)Ordered By: Dr. Anderson on 06-30-2022 Hemoglobin (Bld) [Mass/Vol] 11.4 g/dL 12.0-15.0 [facility] Blood lymphocytes/100 leukoc ytesOrdered By: Dr. Anderson on 06-30-2022 Lymphocytes/100 WBC (Bld) 41.6 % 19-41 [facility] Blood monocytes/100 leukocyt esOrdered By: Dr. Anderson on 06-30-2022 Monocytes/100 WBC (Bld) 11.0 % 0-10 [facility] Blood platelet mean volumeOr dered By: Dr. Anderson on 06-30-2022 Platelet mean volume (Bld) [Entitic vol] 10.0 fL 6.2-12.0 [facility] Determination of erythrocyte mean corpuscular volume (MCV)Ordered By: Dr. Anderson on 06-30-2022 MCV (RBC) [Entitic vol] 103.0 fL 81-99 [facility] Hematocrit Auto (Bld) [Volum e fraction]Ordered By: Dr. Anderson on 06-30-2022 Hematocrit (Bld) [Volume fraction] 37.3 % 37-47 [facility] - Chemistry and C hemistry - challengeOrdered By: Dr. Anderson on 06-30-2022 CO2 [Moles/Vol] 30.0 mmol/L 21.0-32.0 [facility] Urea nitrogen/Creatinine [Mass ratio] 20.6 mg/mg 10-20 [facility] - Hematology and Cell countsOrdered By: Dr. Anderson on 06-30-2022 Erythrocyte distribution width (RBC) [Entitic vol] 50.2 fL 35.1-43.9 [facility] Erythrocyte distribution width (RBC) [Ratio] 13.2 % 11.6-14.6 [facility] Immature granulocytes/100 WBC (Bld) 0.300 % 0.0-0.9 [facility] Comment on above: IG% - Immature Granu locytes (promyelocytes, myelocytes and metamyelocytes) > 1% indicates that a LEFT SHIFT is Present. MCH (RBC) [Entitic mass] 31.5 pg 27.0-32.0 [facility] Nucleated RBC/100 WBC (Bld) [Ratio] 0 % 0-5 [facility] MCHC Auto (RBC) [Mass/Vol]Or dered By: Dr. Anderson on 06-30-2022 MCHC (RBC) [Mass/Vol] 30.6 g/dL 32-36 [facility] No Panel InformationOrdered By: Dr. Anderson on 06-30-2022 Estimated GFR (MDRD) Amer 110 mL/min >60 [facility] Comment on above: GFR Calc Estimated GFR (MDRD) Non-Af Amer 91 mL/min >60 [facility] Comment on above: Non- GFR Calc 31.5 pg 27.0-32.0 [facility] 13.2 % 11.6-14.6 [facility] 50.2 fl 35.1-43.9 [facility] 0.300 % 0.0-0.9 [facility] 0 % 0-5 [facility] 91 mL/min >60 [facility] 110 mL/min >60 [facility] 20.6 RATIO 10-20 [facility] 30.0 mmol/L 21.0-32.0 [facility] Platelets bldOrdered By: Dr. Anderson on 06-30-2022 Platelets (Bld) [#/Vol] 240 10*3/uL 150-450 [facility] Serum or plasma calcium moriah urement (mass/volume)Ordered By: Dr. Anderson on 06-30-2022 Calcium [Mass/Vol] 8.2 mg/dL 8.5-10.1 [facility] Serum or plasma creatinine m easurement (mass/volume)Ordered By: Dr. Anderson on 06-30-2022 Creatinine [Mass/Vol] 0.68 mg/dL 0.55-1.02 [facility] Comment on above: The validity of the calculated GFR & GFRAA in patients over 70 years has not been determined. Clinical correlation is essential. Serum or plasma urea nitroge n measurement (mass/volume)Ordered By: Dr. Anderson on 06-30-2022 Urea nitrogen [Mass/Vol] 14 mg/dL 7-18 [facility] Thin prep Papanicolaou smear with manual screeningOrdered By: Dr. Anderson on 06-30-2022 Thin prep Papanicolaou smear with manual screening 2 5-15 [facility] Absolute lymphocyte countOrd ered By: Dr. Anderson on 06-16-2022 Lymphocytes Auto (Unsp spec) [#/Vol] 2.44 10*3/uL 0.83-4.51 [facility] Basophil percentageOrdered B y: Dr. Anderson on 06-16-2022 Basophil percentage 87 mg/dL 74-106 [facility] Basophil percentage 139 mmol/L 136-145 [facility] Basophil percentage 4.3 mmol/L 3.5-5.1 [facility] Basophil percentage 107 mmol/L 98-107 [facility] Basophils (Bld) [#/Vol] 5.6 10*3/uL 4.4-11.0 [facility] Basophils (Bld) [#/Vol] 2.1 10*3/uL 2.0-7.7 [facility] Basophils/100 WBC (Bld) 0.7 % 0-1 [facility] Basophils/100 WBC (Bld) 37.1 % 47-70 [facility] Basophils/100 WBC (Bld) 7.8 % 0-5 [facility] Chloride [Moles/Vol] 107 mmol/L 98-107 [facility] Eosinophils/100 WBC (Bld) 7.8 % 0-5 [facility] Glucose [Mass/Vol] 87 mg/dL 74-106 [facility] Neutrophils (Bld) [#/Vol] 2.1 10*3/uL 2.0-7.7 [facility] Neutrophils/100 WBC (Bld) 37.1 % 47-70 [facility] Potassium [Moles/Vol] 4.3 mmol/L 3.5-5.1 [facility] Sodium [Moles/Vol] 139 mmol/L 136-145 [facility] WBC (Bld) [#/Vol] 5.6 10*3/uL 4.4-11.0 [facility] Blood erythrocytes count (nu mber/volume)Ordered By: Dr. Anderson on 06-16-2022 RBC (Bld) [#/Vol] 3.57 10*6/uL 4.2-5.4 [facility] Blood hemoglobin measurement (mass/volume)Ordered By: Dr. Anderson on 06-16-2022 Hemoglobin (Bld) [Mass/Vol] 11.2 g/dL 12.0-15.0 [facility] Blood lymphocytes/100 leukoc ytesOrdered By: Dr. Anderson on 06-16-2022 Lymphocytes/100 WBC (Bld) 43.3 % 19-41 [facility] Blood monocytes/100 leukocyt esOrdered By: Dr. Anderson on 06-16-2022 Monocytes/100 WBC (Bld) 10.7 % 0-10 [facility] Blood platelet mean volumeOr dered By: Dr. Anderson on 06-16-2022 Platelet mean volume (Bld) [Entitic vol] 10.4 fL 6.2-12.0 [facility] Determination of erythrocyte mean corpuscular volume (MCV)Ordered By: Dr. Anderson on 06-16-2022 MCV (RBC) [Entitic vol] 101.7 fL 81-99 [facility] Hematocrit Auto (Bld) [Volum e fraction]Ordered By: Dr. Anderson on 06-16-2022 Hematocrit (Bld) [Volume fraction] 36.3 % 37-47 [facility] - Chemistry and C hemistry - challengeOrdered By: Dr. Anderson on 06-16-2022 CO2 [Moles/Vol] 30.0 mmol/L 21.0-32.0 [facility] Urea nitrogen/Creatinine [Mass ratio] 20.9 mg/mg 10-20 [facility] - Hematology and Cell countsOrdered By: Dr. Anderson on 06-16-2022 Erythrocyte distribution width (RBC) [Entitic vol] 49.2 fL 35.1-43.9 [facility] Erythrocyte distribution width (RBC) [Ratio] 13.2 % 11.6-14.6 [facility] Immature granulocytes/100 WBC (Bld) 0.400 % 0.0-0.9 [facility] Comment on above: IG% - Immature Granu locytes (promyelocytes, myelocytes and metamyelocytes) > 1% indicates that a LEFT SHIFT is Present. MCH (RBC) [Entitic mass] 31.4 pg 27.0-32.0 [facility] Nucleated RBC/100 WBC (Bld) [Ratio] 0 % 0-5 [facility] MCHC Auto (RBC) [Mass/Vol]Or dered By: Dr. Anderson on 06-16-2022 MCHC (RBC) [Mass/Vol] 30.9 g/dL 32-36 [facility] No Panel InformationOrdered By: Dr. Anderson on 06-16-2022 Estimated GFR (MDRD) Amer 112 mL/min >60 [facility] Comment on above: GFR Calc Estimated GFR (MDRD) Non-Af Amer 92 mL/min >60 [facility] Comment on above: Non- GFR Calc 31.4 pg 27.0-32.0 [facility] 13.2 % 11.6-14.6 [facility] 49.2 fl 35.1-43.9 [facility] 0.400 % 0.0-0.9 [facility] 0 % 0-5 [facility] 92 mL/min >60 [facility] 112 mL/min >60 [facility] 20.9 RATIO 10-20 [facility] 30.0 mmol/L 21.0-32.0 [facility] Platelets bldOrdered By: Dr. Anderson on 06-16-2022 Platelets (Bld) [#/Vol] 263 10*3/uL 150-450 [facility] Serum or plasma calcium moriah urement (mass/volume)Ordered By: Dr. Anderson on 06-16-2022 Calcium [Mass/Vol] 8.1 mg/dL 8.5-10.1 [facility] Serum or plasma creatinine m easurement (mass/volume)Ordered By: Dr. Anderson on 06-16-2022 Creatinine [Mass/Vol] 0.67 mg/dL 0.55-1.02 [facility] Comment on above: The validity of the calculated GFR & GFRAA in patients over 70 years has not been determined. Clinical correlation is essential. Serum or plasma urea nitroge n measurement (mass/volume)Ordered By: Dr. Anderson on 06-16-2022 Urea nitrogen [Mass/Vol] 14 mg/dL 7-18 [facility] Thin prep Papanicolaou smear with manual screeningOrdered By: Dr. Anderson on 06-16-2022 Thin prep Papanicolaou smear with manual screening 2 5-15 [facility] Absolute lymphocyte countOrd ered By: Dr. Anderson on 06-09-2022 Lymphocytes Auto (Unsp spec) [#/Vol] 1.91 10*3/uL 0.83-4.51 [facility] Basophil percentageOrdered B y: Dr. Anderson on 06-09-2022 Basophil percentage 83 mg/dL 74-106 [facility] Basophil percentage 140 mmol/L 136-145 [facility] Basophil percentage 4.4 mmol/L 3.5-5.1 [facility] Basophil percentage 106 mmol/L 98-107 [facility] Basophils (Bld) [#/Vol] 6.0 10*3/uL 4.4-11.0 [facility] Basophils (Bld) [#/Vol] 2.9 10*3/uL 2.0-7.7 [facility] Basophils/100 WBC (Bld) 1.0 % 0-1 [facility] Basophils/100 WBC (Bld) 49.4 % 47-70 [facility] Basophils/100 WBC (Bld) 5.9 % 0-5 [facility] Chloride [Moles/Vol] 106 mmol/L 98-107 [facility] Eosinophils/100 WBC (Bld) 5.9 % 0-5 [facility] Glucose [Mass/Vol] 83 mg/dL 74-106 [facility] Neutrophils (Bld) [#/Vol] 2.9 10*3/uL 2.0-7.7 [facility] Neutrophils/100 WBC (Bld) 49.4 % 47-70 [facility] Potassium [Moles/Vol] 4.4 mmol/L 3.5-5.1 [facility] Sodium [Moles/Vol] 140 mmol/L 136-145 [facility] WBC (Bld) [#/Vol] 6.0 10*3/uL 4.4-11.0 [facility] Blood erythrocytes count (nu mber/volume)Ordered By: Dr. Anderson on 06-09-2022 RBC (Bld) [#/Vol] 3.61 10*6/uL 4.2-5.4 [facility] Blood hemoglobin measurement (mass/volume)Ordered By: Dr. Anderson on 06-09-2022 Hemoglobin (Bld) [Mass/Vol] 11.3 g/dL 12.0-15.0 [facility] Blood lymphocytes/100 leukoc ytesOrdered By: Dr. Anderson on 06-09-2022 Lymphocytes/100 WBC (Bld) 32.0 % 19-41 [facility] Blood monocytes/100 leukocyt esOrdered By: Dr. Anderson on 06-09-2022 Monocytes/100 WBC (Bld) 11.4 % 0-10 [facility] Blood platelet mean volumeOr dered By: Dr. Anderson on 06-09-2022 Platelet mean volume (Bld) [Entitic vol] 10.2 fL 6.2-12.0 [facility] Determination of erythrocyte mean corpuscular volume (MCV)Ordered By: Dr. Anderson on 06-09-2022 MCV (RBC) [Entitic vol] 103.0 fL 81-99 [facility] Hematocrit Auto (Bld) [Volum e fraction]Ordered By: Dr. Anderson on 06-09-2022 Hematocrit (Bld) [Volume fraction] 37.2 % 37-47 [facility] - Chemistry and C hemistry - challengeOrdered By: Dr. Anderson on 06-09-2022 CO2 [Moles/Vol] 30.0 mmol/L 21.0-32.0 [facility] Urea nitrogen/Creatinine [Mass ratio] 18.1 mg/mg 10-20 [facility] - Hematology and Cell countsOrdered By: Dr. Anderson on 06-09-2022 Erythrocyte distribution width (RBC) [Entitic vol] 51.5 fL 35.1-43.9 [facility] Erythrocyte distribution width (RBC) [Ratio] 13.2 % 11.6-14.6 [facility] Immature granulocytes/100 WBC (Bld) 0.300 % 0.0-0.9 [facility] Comment on above: IG% - Immature Granu locytes (promyelocytes, myelocytes and metamyelocytes) > 1% indicates that a LEFT SHIFT is Present. MCH (RBC) [Entitic mass] 31.3 pg 27.0-32.0 [facility] Nucleated RBC/100 WBC (Bld) [Ratio] 0 % 0-5 [facility] MCHC Auto (RBC) [Mass/Vol]Or dered By: Dr. Anderson on 06-09-2022 MCHC (RBC) [Mass/Vol] 30.4 g/dL 32-36 [facility] No Panel InformationOrdered By: Dr. Anderson on 06-09-2022 Estimated GFR (MDRD) Amer 103 mL/min >60 [facility] Comment on above: GFR Calc Estimated GFR (MDRD) Non-Af Amer 85 mL/min >60 [facility] Comment on above: Non- GFR Calc 31.3 pg 27.0-32.0 [facility] 13.2 % 11.6-14.6 [facility] 51.5 fl 35.1-43.9 [facility] 0.300 % 0.0-0.9 [facility] 0 % 0-5 [facility] 85 mL/min >60 [facility] 103 mL/min >60 [facility] 18.1 RATIO 10-20 [facility] 30.0 mmol/L 21.0-32.0 [facility] Platelets bldOrdered By: Dr. Anderson on 06-09-2022 Platelets (Bld) [#/Vol] 321 10*3/uL 150-450 [facility] Serum or plasma calcium moriah urement (mass/volume)Ordered By: Dr. Anderson on 06-09-2022 Calcium [Mass/Vol] 8.6 mg/dL 8.5-10.1 [facility] Serum or plasma creatinine m easurement (mass/volume)Ordered By: Dr. Anderson on 06-09-2022 Creatinine [Mass/Vol] 0.72 mg/dL 0.55-1.02 [facility] Comment on above: The validity of the calculated GFR & GFRAA in patients over 70 years has not been determined. Clinical correlation is essential. Serum or plasma urea nitroge n measurement (mass/volume)Ordered By: Dr. Anderson on 06-09-2022 Urea nitrogen [Mass/Vol] 13 mg/dL 7-18 [facility] Thin prep Papanicolaou smear with manual screeningOrdered By: Dr. Anderson on 06-09-2022 Thin prep Papanicolaou smear with manual screening 4 5-15 [facility] Thin prep Papanicolaou smear with manual screening Neisseria or beta-hemolytic Streptococcus isolated. [facility] Gram stain for investigation of transfusion reactionOrdered By: Dr. Anderson on 06-07-2022 Microscopic observation Gram stain Nom (Unsp spec) [facility] Absolute lymphocyte countOrd ered By: Dr. Anderson on 06-02-2022 Lymphocytes Auto (Unsp spec) [#/Vol] 2.53 10*3/uL 0.83-4.51 [facility] Basophil percentageOrdered B y: Dr. Anderson on 06-02-2022 Basophil percentage 88 mg/dL 74-106 [facility] Basophil percentage 141 mmol/L 136-145 [facility] Basophil percentage 4.5 mmol/L 3.5-5.1 [facility] Basophil percentage 108 mmol/L 98-107 [facility] Basophils (Bld) [#/Vol] 7.6 10*3/uL 4.4-11.0 [facility] Basophils (Bld) [#/Vol] 3.8 10*3/uL 2.0-7.7 [facility] Basophils/100 WBC (Bld) 0.8 % 0-1 [facility] Basophils/100 WBC (Bld) 50.6 % 47-70 [facility] Basophils/100 WBC (Bld) 5.7 % 0-5 [facility] Chloride [Moles/Vol] 108 mmol/L 98-107 [facility] Eosinophils/100 WBC (Bld) 5.7 % 0-5 [facility] Glucose [Mass/Vol] 88 mg/dL 74-106 [facility] Neutrophils (Bld) [#/Vol] 3.8 10*3/uL 2.0-7.7 [facility] Neutrophils/100 WBC (Bld) 50.6 % 47-70 [facility] Potassium [Moles/Vol] 4.5 mmol/L 3.5-5.1 [facility] Sodium [Moles/Vol] 141 mmol/L 136-145 [facility] WBC (Bld) [#/Vol] 7.6 10*3/uL 4.4-11.0 [facility] Blood erythrocytes count (nu mber/volume)Ordered By: Dr. Anderson on 06-02-2022 RBC (Bld) [#/Vol] 3.58 10*6/uL 4.2-5.4 [facility] Blood hemoglobin measurement (mass/volume)Ordered By: Dr. Anderson on 06-02-2022 Hemoglobin (Bld) [Mass/Vol] 11.2 g/dL 12.0-15.0 [facility] Blood lymphocytes/100 leukoc ytesOrdered By: Dr. Anderson on 06-02-2022 Lymphocytes/100 WBC (Bld) 33.3 % 19-41 [facility] Blood monocytes/100 leukocyt esOrdered By: Dr. Anderson on 06-02-2022 Monocytes/100 WBC (Bld) 9.1 % 0-10 [facility] Blood platelet mean volumeOr dered By: Dr. Anderson on 06-02-2022 Platelet mean volume (Bld) [Entitic vol] 9.7 fL 6.2-12.0 [facility] Determination of erythrocyte mean corpuscular volume (MCV)Ordered By: Dr. Anderson on 06-02-2022 MCV (RBC) [Entitic vol] 103.9 fL 81-99 [facility] Hematocrit Auto (Bld) [Volum e fraction]Ordered By: Dr. Anderson on 06-02-2022 Hematocrit (Bld) [Volume fraction] 37.2 % 37-47 [facility] - Chemistry and C hemistry - challengeOrdered By: Dr. Anderson on 06-02-2022 CO2 [Moles/Vol] 31.0 mmol/L 21.0-32.0 [facility] Urea nitrogen/Creatinine [Mass ratio] 19.2 mg/mg 10-20 [facility] - Hematology and Cell countsOrdered By: Dr. Anderson on 06-02-2022 Erythrocyte distribution width (RBC) [Entitic vol] 52.9 fL 35.1-43.9 [facility] Erythrocyte distribution width (RBC) [Ratio] 13.7 % 11.6-14.6 [facility] Immature granulocytes/100 WBC (Bld) 0.500 % 0.0-0.9 [facility] Comment on above: IG% - Immature Granu locytes (promyelocytes, myelocytes and metamyelocytes) > 1% indicates that a LEFT SHIFT is Present. MCH (RBC) [Entitic mass] 31.3 pg 27.0-32.0 [facility] Nucleated RBC/100 WBC (Bld) [Ratio] 0 % 0-5 [facility] MCHC Auto (RBC) [Mass/Vol]Or dered By: Dr. Anderson on 06-02-2022 MCHC (RBC) [Mass/Vol] 30.1 g/dL 32-36 [facility] No Panel InformationOrdered By: Dr. Anderson on 06-02-2022 Estimated GFR (MDRD) Amer 110 mL/min >60 [facility] Comment on above: GFR Calc Estimated GFR (MDRD) Non-Af Amer 91 mL/min >60 [facility] Comment on above: Non- GFR Calc 31.3 pg 27.0-32.0 [facility] 13.7 % 11.6-14.6 [facility] 52.9 fl 35.1-43.9 [facility] 0.500 % 0.0-0.9 [facility] 0 % 0-5 [facility] 91 mL/min >60 [facility] 110 mL/min >60 [facility] 19.2 RATIO 10-20 [facility] 31.0 mmol/L 21.0-32.0 [facility] Platelets bldOrdered By: Dr. Anderson on 06-02-2022 Platelets (Bld) [#/Vol] 292 10*3/uL 150-450 [facility] Serum or plasma calcium moriah urement (mass/volume)Ordered By: Dr. Anderson on 06-02-2022 Calcium [Mass/Vol] 8.3 mg/dL 8.5-10.1 [facility] Serum or plasma creatinine m easurement (mass/volume)Ordered By: Dr. Anderson on 06-02-2022 Creatinine [Mass/Vol] 0.68 mg/dL 0.55-1.02 [facility] Comment on above: The validity of the calculated GFR & GFRAA in patients over 70 years has not been determined. Clinical correlation is essential. Serum or plasma urea nitroge n measurement (mass/volume)Ordered By: Dr. Anderson on 06-02-2022 Urea nitrogen [Mass/Vol] 13 mg/dL 7-18 [facility] Thin prep Papanicolaou smear with manual screeningOrdered By: Dr. Anderson on 06-02-2022 Thin prep Papanicolaou smear with manual screening 2 5-15 [facility] No Panel InformationOrdered By: Dr. Anderson on 05-31-2022 Thyroid Stimulating Hormone (TSH) 1.68 uIU/mL 0.358-3.74 [facility] 1.68 uIU/mL 0.358-3.74 [facility] Absolute lymphocyte countOrd ered By: Dr. Anderson on 05-26-2022 Lymphocytes Auto (Unsp spec) [#/Vol] 1.80 10*3/uL 0.83-4.51 [facility] Basophil percentageOrdered B y: Dr. Anderson on 05-26-2022 Basophil percentage 78 mg/dL 74-106 [facility] Basophil percentage 141 mmol/L 136-145 [facility] Basophil percentage 4.6 mmol/L 3.5-5.1 [facility] Basophil percentage 108 mmol/L 98-107 [facility] Basophils (Bld) [#/Vol] 7.1 10*3/uL 4.4-11.0 [facility] Basophils (Bld) [#/Vol] 3.8 10*3/uL 2.0-7.7 [facility] Basophils/100 WBC (Bld) 0.8 % 0-1 [facility] Basophils/100 WBC (Bld) 53.9 % 47-70 [facility] Basophils/100 WBC (Bld) 6.9 % 0-5 [facility] Chloride [Moles/Vol] 108 mmol/L 98-[facility] WBC (Bld) 6.9 % 0-5 [facility] Glucose [Mass/Vol] 78 mg/dL 74-106 [facility] Neutrophils (Bld) [#/Vol] 3.8 10*3/uL 2.0-7.7 [facility] Neutrophils/100 WBC (Bld) 53.9 % 47-70 [facility] Potassium [Moles/Vol] 4.6 mmol/L 3.5-5.1 [facility] Sodium [Moles/Vol] 141 mmol/L 136-145 [facility] WBC (Bld) [#/Vol] 7.1 10*3/uL 4.4-11.0 [facility] Blood erythrocytes count (nu mber/volume)Ordered By: Dr. Anderson on 05-26-2022 RBC (Bld) [#/Vol] 3.57 10*6/uL 4.2-5.4 [facility] Blood hemoglobin measurement (mass/volume)Ordered By: Dr. Anderson on 05-26-2022 Hemoglobin (Bld) [Mass/Vol] 11.2 g/dL 12.0-15.0 [facility] Blood lymphocytes/100 leukoc ytesOrdered By: Dr. Anderson on 05-26-2022 Lymphocytes/100 WBC (Bld) 25.2 % 19-41 [facility] Blood monocytes/100 leukocyt esOrdered By: Dr. Anderson on 05-26-2022 Monocytes/100 WBC (Bld) 12.9 % 0-10 [facility] Blood platelet mean volumeOr dered By: Dr. Anderson on 05-26-2022 Platelet mean volume (Bld) [Entitic vol] 10.4 fL 6.2-12.0 [facility] Determination of erythrocyte mean corpuscular volume (MCV)Ordered By: Dr. Anderson on 05-26-2022 MCV (RBC) [Entitic vol] 103.1 fL 81-99 [facility] Hematocrit Auto (Bld) [Volum e fraction]Ordered By: Dr. Anderson on 05-26-2022 Hematocrit (Bld) [Volume fraction] 36.8 % 37-47 [facility] Laboratory - Chemistry and C hemistry - challengeOrdered By: Dr. Anderson on 05-26-2022 CO2 [Moles/Vol] 27.0 mmol/L 21.0-32.0 [facility] Urea nitrogen/Creatinine [Mass ratio] 14.3 mg/mg 10- [facility] Laboratory - Hematology and Cell countsOrdered By: Dr. Anderson on 05-26-2022 Erythrocyte distribution width (RBC) [Entitic vol] 53.0 fL 35.1-43.9 [facility] Erythrocyte distribution width (RBC) [Ratio] 13.8 % 11.6-14.6 [facility] Immature granulocytes/100 WBC (Bld) 0.300 % 0.0-0.9 [facility] Comment on above: IG% - Immature Granu locytes (promyelocytes, myelocytes and metamyelocytes) > 1% indicates that a LEFT SHIFT is Present. MCH (RBC) [Entitic mass] 31.4 pg 27.0-32.0 [facility] Nucleated RBC/100 WBC (Bld) [Ratio] 0 % 0-5 [facility] MCHC Auto (RBC) [Mass/Vol]Or dered By: Dr. Anderson on 05-26-2022 MCHC (RBC) [Mass/Vol] 30.4 g/dL 32-36 [facility] No Panel InformationOrdered By: Dr. Anderson on 05-26-2022 Estimated GFR (MDRD) Amer 138 mL/min >60 [facility] Comment on above: GFR Calc Estimated GFR (MDRD) Non-Af Amer 114 mL/min >60 [facility] Comment on above: Non- GFR Calc 31.4 pg 27.0-32.0 [facility] 13.8 % 11.6-14.6 [facility] 53.0 fl 35.1-43.9 [facility] 0.300 % 0.0-0.9 [facility] 0 % 0-5 [facility] 114 mL/min >60 [facility] 138 mL/min >60 [facility] 14.3 RATIO 10-20 [facility] 27.0 mmol/L 21.0-32.0 [facility] Platelets bldOrdered By: Dr. Anderson on 05-26-2022 Platelets (Bld) [#/Vol] 253 10*3/uL 150-450 [facility] Serum or plasma calcium moriah urement (mass/volume)Ordered By: Dr. Anderson on 05-26-2022 Calcium [Mass/Vol] 8.6 mg/dL 8.5-10.1 [facility] Serum or plasma creatinine m easurement (mass/volume)Ordered By: Dr. Anderson on 05-26-2022 Creatinine [Mass/Vol] 0.56 mg/dL 0.55-1.02 [facility] Comment on above: The validity of the calculated GFR & GFRAA in patients over 70 years has not been determined. Clinical correlation is essential. Serum or plasma urea nitroge n measurement (mass/volume)Ordered By: Dr. Anderson on 05-26-2022 Urea nitrogen [Mass/Vol] 8 mg/dL 7-18 [facility] Thin prep Papanicolaou smear with manual screeningOrdered By: Dr. Anderson on 05-26-2022 Thin prep Papanicolaou smear with manual screening 6 5-15 [facility] Absolute lymphocyte countOrd ered By: Dr. Anderson on 05-19-2022 Lymphocytes Auto (Unsp spec) [#/Vol] 2.21 10*3/uL 0.83-4.51 [facility] Basophil percentageOrdered B y: Dr. Anderson on 05-19-2022 Basophil percentage 83 mg/dL 74-106 [facility] Basophil percentage 138 mmol/L 136-145 [facility] Basophil percentage 4.5 mmol/L 3.5-5.1 [facility] Basophil percentage 105 mmol/L 98-107 [facility] Basophils (Bld) [#/Vol] 8.3 10*3/uL 4.4-11.0 [facility] Basophils (Bld) [#/Vol] 5.0 10*3/uL 2.0-7.7 [facility] Basophils/100 WBC (Bld) 0.8 % 0-1 [facility] Basophils/100 WBC (Bld) 59.6 % 47-70 [facility] Basophils/100 WBC (Bld) 5.6 % 0-5 [facility] Chloride [Moles/Vol] 105 mmol/L 98-[facility] Eosin[facility]/100 WBC (Bld) 5.6 % 0-5 [facility] Glucose [Mass/Vol] 83 mg/dL 74-106 [facility] Neutrophils (Bld) [#/Vol] 5.0 10*3/uL 2.0-7.7 [facility] Neutrophils/100 WBC (Bld) 59.6 % 47-70 [facility] Potassium [Moles/Vol] 4.5 mmol/L 3.5-5.1 [facility] Sodium [Moles/Vol] 138 mmol/L 136-145 [facility] WBC (Bld) [#/Vol] 8.3 10*3/uL 4.4-11.0 [facility] Blood erythrocytes count (nu mber/volume)Ordered By: Dr. Anderson on 05-19-2022 RBC (Bld) [#/Vol] 3.79 10*6/uL 4.2-5.4 [facility] Blood hemoglobin measurement (mass/volume)Ordered By: Dr. Anderson on 05-19-2022 Hemoglobin (Bld) [Mass/Vol] 12.0 g/dL 12.0-15.0 [facility] Blood lymphocytes/100 leukoc ytesOrdered By: Dr. Anderson on 05-19-2022 Lymphocytes/100 WBC (Bld) 26.5 % 19-41 [facility] Blood monocytes/100 leukocyt esOrdered By: Dr. Anderson on 05-19-2022 Monocytes/100 WBC (Bld) 7.3 % 0-10 [facility] Blood platelet mean volumeOr dered By: Dr. Anderson on 05-19-2022 Platelet mean volume (Bld) [Entitic vol] 10.1 fL 6.2-12.0 [facility] Determination of erythrocyte mean corpuscular volume (MCV)Ordered By: Dr. Anderson on 05-19-2022 MCV (RBC) [Entitic vol] 103.2 fL 81-99 [facility] Hematocrit Auto (Bld) [Volum e fraction]Ordered By: Dr. Anderson on 05-19-2022 Hematocrit (Bld) [Volume fraction] 39.1 % 37-47 [facility] Laboratory - Chemistry and C hemistry - challengeOrdered By: Dr. Anderson on 05-19-2022 CO2 [Moles/Vol] 29.0 mmol/L 21.0-32.0 [facility] Urea nitrogen/Creatinine [Mass ratio] 15.8 mg/mg 10-20 [facility] Laboratory - Hematology and Cell countsOrdered By: Dr. Anderson on 05-19-2022 Erythrocyte distribution width (RBC) [Entitic vol] 53.5 fL 35.1-43.9 [facility] Erythrocyte distribution width (RBC) [Ratio] 14.2 % 11.6-14.6 [facility] Immature granulocytes/100 WBC (Bld) 0.200 % 0.0-0.9 [facility] Comment on above: IG% - Immature Granu locytes (promyelocytes, myelocytes and metamyelocytes) > 1% indicates that a LEFT SHIFT is Present. MCH (RBC) [Entitic mass] 31.7 pg 27.0-32.0 [facility] Nucleated RBC/100 WBC (Bld) [Ratio] 0 % 0-5 [facility] MCHC Auto (RBC) [Mass/Vol]Or dered By: Dr. Anderson on 05-19-2022 MCHC (RBC) [Mass/Vol] 30.7 g/dL 32-36 [facility] No Panel InformationOrdered By: Dr. Anderson on 05-19-2022 Estimated GFR (MDRD) Amer 96 mL/min >60 [facility] Comment on above: GFR Calc Estimated GFR (MDRD) Non-Af Amer 80 mL/min >60 [facility] Comment on above: Non- GFR Calc 31.7 pg 27.0-32.0 [facility] 14.2 % 11.6-14.6 [facility] 53.5 fl 35.1-43.9 [facility] 0.200 % 0.0-0.9 [facility] 0 % 0-5 [facility] 80 mL/min >60 [facility] 96 mL/min >60 [facility] 15.8 RATIO 10-20 [facility] 29.0 mmol/L 21.0-32.0 [facility] Platelets bldOrdered By: Dr. Anderson on 05-19-2022 Platelets (Bld) [#/Vol] 340 10*3/uL 150-450 [facility] Serum or plasma calcium moriah urement (mass/volume)Ordered By: Dr. Anderson on 05-19-2022 Calcium [Mass/Vol] 8.7 mg/dL 8.5-10.1 [facility] Serum or plasma creatinine m easurement (mass/volume)Ordered By: Dr. Anderson on 05-19-2022 Creatinine [Mass/Vol] 0.76 mg/dL 0.55-1.02 [facility] Comment on above: The validity of the calculated GFR & GFRAA in patients over 70 years has not been determined. Clinical correlation is essential. Serum or plasma urea nitroge n measurement (mass/volume)Ordered By: Dr. Anderson on 05-19-2022 Urea nitrogen [Mass/Vol] 12 mg/dL 7-18 [facility] Thin prep Papanicolaou smear with manual screeningOrdered By: Dr. Anderson on 05-19-2022 Thin prep Papanicolaou smear with manual screening 4 5-15 [facility] Absolute lymphocyte countOrd ered By: Dr. Anderson on 05-12-2022 Lymphocytes Auto (Unsp spec) [#/Vol] 1.90 10*3/uL 0.83-4.51 [facility] Basophil percentageOrdered B y: Dr. Anderson on 05-12-2022 Basophil percentage 90 mg/dL 74-106 [facility] Basophil percentage 141 mmol/L 136-145 [facility] Basophil percentage 4.6 mmol/L 3.5-5.1 [facility] Basophil percentage 105 mmol/L 98-107 [facility] Basophils (Bld) [#/Vol] 5.6 10*3/uL 4.4-11.0 [facility] Basophils (Bld) [#/Vol] 2.7 10*3/uL 2.0-7.7 [facility] Basophils/100 WBC (Bld) 0.9 % 0-1 [facility] Basophils/100 WBC (Bld) 48.5 % 47-70 [facility] Basophils/100 WBC (Bld) 7.3 % 0-5 [facility] Chloride [Moles/Vol] 105 mmol/L 98-107 [facility] Eosinophils/100 WBC (Bld) 7.3 % 0-5 [facility] Glucose [Mass/Vol] 90 mg/dL 74-106 [facility] Neutrophils (Bld) [#/Vol] 2.7 10*3/uL 2.0-7.7 [facility] Neutrophils/100 WBC (Bld) 48.5 % 47-70 [facility] Potassium [Moles/Vol] 4.6 mmol/L 3.5-5.1 [facility] Sodium [Moles/Vol] 141 mmol/L 136-145 [facility] WBC (Bld) [#/Vol] 5.6 10*3/uL 4.4-11.0 [facility] Blood erythrocytes count (nu mber/volume)Ordered By: Dr. Anderson on 05-12-2022 RBC (Bld) [#/Vol] 3.66 10*6/uL 4.2-5.4 [facility] Blood hemoglobin measurement (mass/volume)Ordered By: Dr. Anderson on 05-12-2022 Hemoglobin (Bld) [Mass/Vol] 11.4 g/dL 12.0-15.0 [facility] Blood lymphocytes/100 leukoc ytesOrdered By: Dr. Anderson on 05-12-2022 Lymphocytes/100 WBC (Bld) 33.7 % 19-41 [facility] Blood monocytes/100 leukocyt esOrdered By: Dr. Anderson on 05-12-2022 Monocytes/100 WBC (Bld) 9.4 % 0-10 [facility] Blood platelet mean volumeOr dered By: Dr. Anderson on 05-12-2022 Platelet mean volume (Bld) [Entitic vol] 9.9 fL 6.2-12.0 [facility] Determination of erythrocyte mean corpuscular volume (MCV)Ordered By: Dr. Anderson on 05-12-2022 MCV (RBC) [Entitic vol] 102.7 fL 81-99 [facility] Hematocrit Auto (Bld) [Volum e fraction]Ordered By: Dr. Anderson on 05-12-2022 Hematocrit (Bld) [Volume fraction] 37.6 % 37-47 [facility] Laboratory - Chemistry and C hemistry - challengeOrdered By: Dr. Anderson on 05-12-2022 CO2 [Moles/Vol] 32.0 mmol/L 21.0-32.0 [facility] Urea nitrogen/Creatinine [Mass ratio] 21.1 mg/mg 10-20 [facility] Laboratory - Hematology and Cell countsOrdered By: Dr. Anderson on 05-12-2022 Erythrocyte distribution width (RBC) [Entitic vol] 52.5 fL 35.1-43.9 [facility] Erythrocyte distribution width (RBC) [Ratio] 13.9 % 11.6-14.6 [facility] Immature granulocytes/100 WBC (Bld) 0.200 % 0.0-0.9 [facility] Comment on above: IG% - Immature Granu locytes (promyelocytes, myelocytes and metamyelocytes) > 1% indicates that a LEFT SHIFT is Present. MCH (RBC) [Entitic mass] 31.1 pg 27.0-32.0 [facility] Nucleated RBC/100 WBC (Bld) [Ratio] 0 % 0-5 [facility] MCHC Auto (RBC) [Mass/Vol]Or dered By: Dr. Anderson on 05-12-2022 MCHC (RBC) [Mass/Vol] 30.3 g/dL 32-36 [facility] No Panel InformationOrdered By: Dr. Anderson on 05-12-2022 Estimated GFR (MDRD) Amer 104 mL/min >60 [facility] Comment on above: GFR Calc Estimated GFR (MDRD) Non-Af Amer 86 mL/min >60 [facility] Comment on above: Non- GFR Calc 31.1 pg 27.0-32.0 [facility] 13.9 % 11.6-14.6 [facility] 52.5 fl 35.1-43.9 [facility] 0.200 % 0.0-0.9 [facility] 0 % 0-5 [facility] 86 mL/min >60 [facility] 104 mL/min >60 [facility] 21.1 RATIO 10-20 [facility] 32.0 mmol/L 21.0-32.0 [facility] Platelets bldOrdered By: Dr. Anderson on 05-12-2022 Platelets (Bld) [#/Vol] 334 10*3/uL 150-450 [facility] Serum or plasma calcium moriah urement (mass/volume)Ordered By: Dr. Anderson on 05-12-2022 Calcium [Mass/Vol] 8.8 mg/dL 8.5-10.1 [facility] Serum or plasma creatinine m easurement (mass/volume)Ordered By: Dr. Anderson on 05-12-2022 Creatinine [Mass/Vol] 0.71 mg/dL 0.55-1.02 [facility] Comment on above: The validity of the calculated GFR & GFRAA in patients over 70 years has not been determined. Clinical correlation is essential. Serum or plasma urea nitroge n measurement (mass/volume)Ordered By: Dr. Anderson on 05-12-2022 Urea nitrogen [Mass/Vol] 15 mg/dL 7-18 [facility] Thin prep Papanicolaou smear with manual screeningOrdered By: Dr. Anderson on 05-12-2022 Thin prep Papanicolaou smear with manual screening 4 5-15 [facility] Absolute lymphocyte countOrd ered By: Dr. Anderson on 05-11-2022 Lymphocytes Auto (Unsp spec) [#/Vol] 2.56 10*3/uL 0.83-4.51 [facility] Basophil percentageOrdered B y: Dr. Anderson on 05-11-2022 Basophil percentage 96 mg/dL 74-106 [facility] Basophil percentage 171 mg/dL <200 [facility] Basophil percentage 203 mg/dL <199 [facility] Basophil percentage 141 mmol/L 136-145 [facility] Basophil percentage 4.7 mmol/L 3.5-5.1 [facility] Basophil percentage 106 mmol/L 98-107 [facility] Basophils (Bld) [#/Vol] 8.1 10*3/uL 4.4-11.0 [facility] Basophils (Bld) [#/Vol] 4.3 10*3/uL 2.0-7.7 [facility] Basophils/100 WBC (Bld) 0.7 % 0-1 [facility] Basophils/100 WBC (Bld) 53.3 % 47-70 [facility] Basophils/100 WBC (Bld) 5.7 % 0-5 [facility] Chloride [Moles/Vol] 106 mmol/L 98-107 [facility] Cholesterol [Mass/Vol] 171 mg/dL <200 [facility] Comment on above: <200 mg/dL Desirable 200-240 mg/dL Borderline >240 mg/dL High Risk Eosinophils/100 WBC (Bld) 5.7 % 0-5 [facility] Glucose [Mass/Vol] 96 mg/dL 74-106 [facility] Neutrophils (Bld) [#/Vol] 4.3 10*3/uL 2.0-7.7 [facility] Neutrophils/100 WBC (Bld) 53.3 % 47-70 [facility] Potassium [Moles/Vol] 4.7 mmol/L 3.5-5.1 [facility] Sodium [Moles/Vol] 141 mmol/L 136-145 [facility] Triglyceride [Mass/Vol] 203 mg/dL <199 [facility] Comment on above: The drugs N-Acetylcy steine and Metamizole may falsely depress this assay.Serum Triglycerides Reference Interval Normal <150 mg/dL Borderline high 150 - 199 mg/dL High 200 - 499 mg/dL Very High > or = 500 mg/dL WBC (Bld) [#/Vol] 8.1 10*3/uL 4.4-11.0 [facility] Blood erythrocytes count (nu mber/volume)Ordered By: Dr. Anderson on 05-11-2022 RBC (Bld) [#/Vol] 4.08 10*6/uL 4.2-5.4 [facility] Blood hemoglobin measurement (mass/volume)Ordered By: Dr. Anderson on 05-11-2022 Hemoglobin (Bld) [Mass/Vol] 13.2 g/dL 12.0-15.0 [facility] Blood lymphocytes/100 leukoc ytesOrdered By: Dr. Anderson on 05-11-2022 Lymphocytes/100 WBC (Bld) 31.5 % 19-41 [facility] Blood monocytes/100 leukocyt esOrdered By: Dr. Anderson on 05-11-2022 Monocytes/100 WBC (Bld) 8.6 % 0-10 [facility] Blood platelet mean volumeOr dered By: Dr. Anderson on 05-11-2022 Platelet mean volume (Bld) [Entitic vol] 10.3 fL 6.2-12.0 [facility] Determination of erythrocyte mean corpuscular volume (MCV)Ordered By: Dr. Anderson on 05-11-2022 MCV (RBC) [Entitic vol] 103.4 fL 81-99 [facility] Hematocrit Auto (Bld) [Volum e fraction]Ordered By: Dr. Anderson on 05-11-2022 Hematocrit (Bld) [Volume fraction] 42.2 % 37-47 [facility] Laboratory - Chemistry and C hemistry - challengeOrdered By: Dr. Anderson on 05-11-2022 CO2 [Moles/Vol] 30.0 mmol/L 21.0-32.0 [facility] Cobalamin (Vitamin B12) [Mass/Vol] 656 pg/mL 211-911 [facility] Urea nitrogen/Creatinine [Mass ratio] 17.4 mg/mg 10-20 [facility] Laboratory - Hematology and Cell countsOrdered By: Dr. Anderson on 05-11-2022 Erythrocyte distribution width (RBC) [Entitic vol] 53.1 fL 35.1-43.9 [facility] Erythrocyte distribution width (RBC) [Ratio] 14.0 % 11.6-14.6 [facility] Immature granulocytes/100 WBC (Bld) 0.200 % 0.0-0.9 [facility] Comment on above: IG% - Immature Granu locytes (promyelocytes, myelocytes and metamyelocytes) > 1% indicates that a LEFT SHIFT is Present. MCH (RBC) [Entitic mass] 32.4 pg 27.0-32.0 [facility] Nucleated RBC/100 WBC (Bld) [Ratio] 0 % 0-5 [facility] MCHC Auto (RBC) [Mass/Vol]Or dered By: Dr. Anderson on 05-11-2022 MCHC (RBC) [Mass/Vol] 31.3 g/dL 32-36 [facility] No Panel InformationOrdered By: Dr. Anderson on 05-11-2022 Estimated GFR (MDRD) Amer 99 mL/min >60 [facility] Comment on above: GFR Calc Estimated GFR (MDRD) Non-Af Amer 82 mL/min >60 [facility] Comment on above: Non- GFR Calc Thyroid Stimulating Hormone (TSH) 4.72 uIU/mL 0.358-3.74 [facility] 32.4 pg 27.0-32.0 [facility] 14.0 % 11.6-14.6 [facility] 53.1 fl 35.1-43.9 [facility] 0.200 % 0.0-0.9 [facility] 0 % 0-5 [facility] 82 mL/min >60 [facility] 99 mL/min >60 [facility] 17.4 RATIO 10-20 [facility] 30.0 mmol/L 21.0-32.0 [facility] 4.72 uIU/mL 0.358-3.74 [facility] 656 pg/mL 211-911 [facility] Platelets bldOrdered By: Dr. Anderson on 05-11-2022 Platelets (Bld) [#/Vol] 398 10*3/uL 150-450 [facility] Serum or plasma calcium moriah urement (mass/volume)Ordered By: Dr. Anderson on 05-11-2022 Calcium [Mass/Vol] 9.1 mg/dL 8.5-10.1 [facility] Serum or plasma cholesterol in HDL measurement (mass/volume)Ordered By: Dr. Anderson on 05-11-2022 Cholesterol in HDL [Mass/Vol] 49 mg/dL >40 [facility] Comment on above: The drugs N-Acetylcy steine and Metamizole may falsely depress this assay. Reference Range HDL <40 mg/dL Low HDL Cholesterol HDL >or= 60 mg/dL High HDL Cholesterol Serum or plasma cholesterol in VLDL measurement (mass/volume)Ordered By: Dr. Anderson on 05-11-2022 Cholesterol in VLDL [Mass/Vol] 41 mg/dL 5-40 [facility] Serum or plasma creatinine m easurement (mass/volume)Ordered By: Dr. Anderson on 05-11-2022 Creatinine [Mass/Vol] 0.74 mg/dL 0.55-1.02 [facility] Comment on above: The validity of the calculated GFR & GFRAA in patients over 70 years has not been determined. Clinical correlation is essential. Serum or plasma low density lipoprotein (LDL) cholesterol measurement (mass/volume)Ordered By: Dr. Anderson on 05-11-2022 Cholesterol in LDL [Mass/Vol] 81 mg/dL 0-130 [facility] Serum or plasma urea nitroge n measurement (mass/volume)Ordered By: Dr. Anderson on 05-11-2022 Urea nitrogen [Mass/Vol] 13 mg/dL 7-18 [facility] Thin prep Papanicolaou smear with manual screeningOrdered By: Dr. Anderson on 05-11-2022 Thin prep Papanicolaou smear with manual screening 5 5-15 [facility] Whole blood hemoglobin A1c/t otal hemoglobin ratio (mass fraction)Ordered By: Dr. Anderson on 05-11-2022 HbA1c (Bld) [Mass fraction] 5.0 % 3.8-5.6 [facility] Comment on above: Normal < 5.7 % Predi abetic 5.7 - 6.4 % Diabetic >or= 6.5 % Please note range changes. Absolute lymphocyte countOrd ered By: Dr. Anderson on 05-05-2022 Lymphocytes Auto (Unsp spec) [#/Vol] 2.51 10*3/uL 0.83-4.51 [facility] Basophil percentageOrdered B y: Dr. Anderson on 05-05-2022 Basophils/100 WBC (Bld) 0.6 % 0-1 [facility] Chloride [Moles/Vol] 107 mmol[facility]L 98-[facility] Eosinophils/100 WBC (Bld) 4.6 % 0-5 [facility] Glucose [Mass/Vol] 86 mg/dL 74-106 [facility] Neutrophils (Bld) [#/Vol] 3.3 10*3/uL 2.0-7.7 [facility] Neutrophils/100 WBC (Bld) 45.9 % 47-70 [facility] Potassium [Moles/Vol] 4.2 mmol/L 3.5-5.1 [facility] Sodium [Moles/Vol] 143 mmol/L 136-145 [facility] WBC (Bld) [#/Vol] 7.2 10*3/uL 4.4-11.0 [facility] Blood erythrocytes count (nu mber/volume)Ordered By: Dr. Anderson on 05-05-2022 RBC (Bld) [#/Vol] 3.73 10*6/uL 4.2-5.4 [facility] Blood hemoglobin measurement (mass/volume)Ordered By: Dr. Anderson on 05-05-2022 Hemoglobin (Bld) [Mass/Vol] 11.7 g/dL 12.0-15.0 [facility] Blood lymphocytes/100 leukoc ytesOrdered By: Dr. Anderson on 05-05-2022 Lymphocytes/100 WBC (Bld) 35.0 % 19-41 [facility] Blood monocytes/100 leukocyt esOrdered By: Dr. Anderson on 05-05-2022 Monocytes/100 WBC (Bld) 13.8 % 0-10 [facility] Blood platelet mean volumeOr dered By: Dr. Anderson on 05-05-2022 Platelet mean volume (Bld) [Entitic vol] 11.1 fL 6.2-12.0 [facility] Determination of erythrocyte mean corpuscular volume (MCV)Ordered By: Dr. Anderson on 05-05-2022 MCV (RBC) [Entitic vol] 101.1 fL 81-99 [facility] Hematocrit Auto (Bld) [Volum e fraction]Ordered By: Dr. Anderson on 05-05-2022 Hematocrit (Bld) [Volume fraction] 37.7 % 37-47 [facility] Laboratory - Chemistry and C hemistry - challengeOrdered By: Dr. Anderson on 05-05-2022 CO2 [Moles/Vol] 31.0 mmol/L 21.0-32.0 [facility] Urea nitrogen/Creatinine [Mass ratio] 12.7 mg/mg 10-20 [facility] Laboratory - Hematology and Cell countsOrdered By: Dr. Anderson on 05-05-2022 Erythrocyte distribution width (RBC) [Entitic vol] 53.1 fL 35.1-43.9 [facility] Erythrocyte distribution width (RBC) [Ratio] 14.3 % 11.6-14.6 [facility] Immature granulocytes/100 WBC (Bld) 0.100 % 0.0-0.9 [facility] Comment on above: IG% - Immature Granu locytes (promyelocytes, myelocytes and metamyelocytes) > 1% indicates that a LEFT SHIFT is Present. MCH (RBC) [Entitic mass] 31.4 pg 27.0-32.0 [facility] Nucleated RBC/100 WBC (Bld) [Ratio] 0 % 0-5 [facility] MCHC Auto (RBC) [Mass/Vol]Or dered By: Dr. Anderson on 05-05-2022 MCHC (RBC) [Mass/Vol] 31.0 g/dL 32-36 [facility] No Panel InformationOrdered By: Dr. Anderson on 05-05-2022 Estimated GFR (MDRD) Amer 93 mL/min >60 [facility] Comment on above: GFR Calc Estimated GFR (MDRD) Non-Af Amer 76 mL/min >60 [facility] Comment on above: Non- GFR Calc Platelets bldOrdered By: Dr. Anderson on 05-05-2022 Platelets (Bld) [#/Vol] 275 10*3/uL 150-450 [facility] Serum or plasma calcium moriah urement (mass/volume)Ordered By: Dr. Anderson on 05-05-2022 Calcium [Mass/Vol] 9.0 mg/dL 8.5-10.1 [facility] Serum or plasma creatinine m easurement (mass/volume)Ordered By: Dr. Anderson on 05-05-2022 Creatinine [Mass/Vol] 0.79 mg/dL 0.55-1.02 [facility] Comment on above: The validity of the calculated GFR & GFRAA in patients over 70 years has not been determined. Clinical correlation is essential. Serum or plasma urea nitroge n measurement (mass/volume)Ordered By: Dr. Anderson on 05-05-2022 Urea nitrogen [Mass/Vol] 10 mg/dL 7-18 [facility] Thin prep Papanicolaou smear with manual screeningOrdered By: Dr. Anderson on 05-05-2022 Thin prep Papanicolaou smear with manual screening 5 -15 [facility] CBC With Platelet and Differ entialon 05-04-2022 Abs Imm Granulocytes 0.03 E9/L Normal [facility] Absolute Basophils 0.05 E9/L Normal 0.00-0.20 [facility] Absolute Eosinophils 0.25 E9/L Normal 0.05-0.50 [facility] Absolute Lymphocytes 1.97 E9/L Normal 1.50-4.00 [facility] Absolute Monocytes 0.95 E9/L Normal 0.10-0.95 [facility] Absolute Neutrophils 3.60 E9/L Normal 1.80-7.30 [facility] Basophils/100 WBC (Bld) 0.7 % Normal 0.0-2.0 [facility] Eosinophils/100 WBC (Bld) 3.6 % Normal 0.0-6.0 [facility] Hematocrit (Bld) [Volume fraction] 33.6 % Low 34.0-48.0 [facility] Hemoglobin (Bld) [Mass/Vol] 10.5 g/dL Low 11.5-15.5 [facility] Imm Granulocytes 0.4 % Normal 0.0-5.0 [facility] Lymphocytes/100 WBC (Bld) 28.8 % Normal 20.0-42.0 [facility] MCH (RBC) [Entitic mass] 31.6 pg Normal 26.0-35.0 [facility] MCHC 31.3 % Low 32.0-34.5 [facility] MCV (RBC) [Entitic vol] 101.2 fL High 80.0-99.9 [facility] Monocytes/100 WBC (Bld) 13.9 % High 2.0-12.0 [facility] Neutrophils/100 WBC (Bld) 52.6 % Normal 43.0-80.0 [facility] Platelet Count 231 E9/L Normal 130-450 [facility] Platelet mean volume (Bld) [Entitic vol] 10.8 fL Normal 7.0-12.0 [facility] RBC 3.32 E12/L Low 3.50-5.50 [facility] RDW 14.4 fL Normal 11.5-15.0 [facility] WBC 6.9 E9/L Normal 4.5-11.5 [facility] Comprehensive Metabolic Pane jamal 05-04-2022 Albumin [Mass/Vol] 3.0 g/dL Low 3.5-5.2 [facility] ALP [Catalytic activity/Vol] 72 U/L Normal 35-104 [facility] ALT [Catalytic activity/Vol] 5 U/L Normal 0-32 [facility] Anion gap [Moles/Vol] 7 mmol/L Normal 7-16 [facility] AST [Catalytic activity/Vol] 18 U/L Normal 0-31 [facility] Bilirubin [Mass/Vol] 0.2 mg/dL Normal 0.0-1.2 [facility] Calcium [Mass/Vol] 8.6 mg/dL Normal 8.6-10.2 [facility] Chloride [Moles/Vol] 106 mmol/L Normal 98-107 [facility] CO2 [Moles/Vol] 30 mmol/L High 22-29 [facility] Creatinine [Mass/Vol] 0.7 mg/dL Normal 0.5-1.0 [facility] GFR Calculated >60 Normal >=60 [facility] Comment on above: Result Comment: Mariel chatmanc [...] secretion. Glucose [Mass/Vol] 74 mg/dL Normal 74-99 [facility] Potassium [Moles/Vol] 4.6 mmol/L Normal 3.5-5.0 [facility] Protein [Mass/Vol] 5.8 g/dL Low 6.4-8.3 [facility] Sodium [Moles/Vol] 143 mmol/L Normal 132-146 [facility] Urea nitrogen [Mass/Vol] 9 mg/dL Normal 6-23 [facility] Valproic Acid /Depakene Leve jamal 05-04-2022 Valproic Acid 35 mcg/mL Low 50-100 [facility] CBC With Platelet and Differ entialon 04-27-2022 Abs Imm Granulocytes 0.01 E9/L Normal [facility] Absolute Basophils 0.06 E9/L Normal 0.00-0.20 [facility] Absolute Eosinophils 0.24 E9/L Normal 0.05-0.50 [facility] Absolute Lymphocytes 1.97 E9/L Normal 1.50-4.00 [facility] Absolute Monocytes 0.68 E9/L Normal 0.10-0.95 [facility] Absolute Neutrophils 2.07 E9/L Normal 1.80-7.30 [facility] Basophils/100 WBC (Bld) 1.2 % Normal 0.0-2.0 [facility] Eosinophils/100 WBC (Bld) 4.8 % Normal 0.0-6.0 [facility] Hematocrit (Bld) [Volume fraction] 35.7 % Normal 34.0-48.0 [facility] Hemoglobin (Bld) [Mass/Vol] 11.5 g/dL Normal 11.5-15.5 [facility] Imm Granulocytes 0.2 % Normal 0.0-5.0 [facility] Lymphocytes/100 WBC (Bld) 39.2 % Normal 20.0-42.0 [facility] MCH (RBC) [Entitic mass] 31.1 pg Normal 26.0-35.0 [facility] MCHC 32.2 % Normal 32.0-34.5 [facility] MCV (RBC) [Entitic vol] 96.5 fL Normal 80.0-99.9 [facility] Monocytes/100 WBC (Bld) 13.5 % High 2.0-12.0 [facility] Neutrophils/100 WBC (Bld) 41.1 % Low 43.0-80.0 [facility] Platelet Count 230 E9/L Normal 130-450 [facility] Platelet mean volume (Bld) [Entitic vol] 11.8 fL Normal 7.0-12.0 [facility] RBC 3.70 E12/L Normal 3.50-5.50 [facility] RDW 14.2 fL Normal 11.5-15.0 [facility] WBC 5.0 E9/L Normal 4.5-11.5 [facility] Comprehensive Metabolic Pane jamal 04-27-2022 Albumin [Mass/Vol] 3.5 g/dL Normal 3.5-5.2 [facility] ALP [Catalytic activity/Vol] 81 U/L Normal 35-104 [facility] ALT [Catalytic activity/Vol] 10 U/L Normal 0-32 [facility] Anion gap [Moles/Vol] 8 mmol/L Normal 7-16 [facility] AST [Catalytic activity/Vol] 27 U/L Normal 0-31 [facility] Bilirubin [Mass/Vol] mg/dL Normal 0.0-1.2 [facility] Calcium [Mass/Vol] 8.8 mg/dL Normal 8.6-10.2 [facility] Chloride [Moles/Vol] 104 mmol/L Normal 98-107 [facility] CO2 [Moles/Vol] 31 mmol/L High 22-29 [facility] Creatinine [Mass/Vol] 0.7 mg/dL Normal 0.5-1.0 [facility] GFR Calculated >60 Normal >=60 [facility] Comment on above: Result Comment: Mariel chatmanc [...] secretion. Glucose [Mass/Vol] 81 mg/dL Normal 74-99 [facility] Potassium [Moles/Vol] 4.2 mmol/L Normal 3.5-5.0 [facility] Protein [Mass/Vol] 6.3 g/dL Low 6.4-8.3 [facility] Sodium [Moles/Vol] 143 mmol/L Normal 132-146 [facility] Urea nitrogen [Mass/Vol] 14 mg/dL Normal 6-23 [facility] Basophil percentageOrdered B y: Dr. Anderson on 04-19-2022 Chloride [Moles/Vol] 106 mmol/L 98-107 [facility] Glucose [Mass/Vol] 80 mg/dL 74-106 [facility] Potassium [Moles/Vol] 4.4 mmol/L 3.5-5.1 [facility] Sodium [Moles/Vol] 142 mmol/L 136-145 [facility] WBC (Bld) [#/Vol] 5.9 10*3/uL 4.4-11.0 [facility] Blood erythrocytes count (nu mber/volume)Ordered By: Dr. Anderson on 04-19-2022 RBC (Bld) [#/Vol] 3.41 10*6/uL 4.2-5.4 [facility] Blood hemoglobin measurement (mass/volume)Ordered By: Dr. Anderson on 04-19-2022 Hemoglobin (Bld) [Mass/Vol] 10.6 g/dL 12.0-15.0 [facility] Blood platelet mean volumeOr dered By: Dr. Anderson on 04-19-2022 Platelet mean volume (Bld) [Entitic vol] 10.1 fL 6.2-12.0 [facility] Determination of erythrocyte mean corpuscular volume (MCV)Ordered By: Dr. Anderson on 04-19-2022 MCV (RBC) [Entitic vol] 98.5 fL 81-99 [facility] Hematocrit Auto (Bld) [Volum e fraction]Ordered By: Dr. Anderson on 04-19-2022 Hematocrit (Bld) [Volume fraction] 33.6 % 37-47 [facility] Laboratory - Chemistry and C hemistry - challengeOrdered By: Dr. Anderson on 04-19-2022 CO2 [Moles/Vol] 30.0 mmol/L 21.0-32.0 [facility] Urea nitrogen/Creatinine [Mass ratio] 32.4 mg/mg 10-20 [facility] Laboratory - Hematology and Cell countsOrdered By: Dr. Anderson on 04-19-2022 Erythrocyte distribution width (RBC) [Entitic vol] 48.2 fL 35.1-43.9 [facility] Erythrocyte distribution width (RBC) [Ratio] 13.3 % 11.6-14.6 [facility] MCH (RBC) [Entitic mass] 31.1 pg 27.0-32.0 [facility] MCHC Auto (RBC) [Mass/Vol]Or dered By: Dr. Anderson on 04-19-2022 MCHC (RBC) [Mass/Vol] 31.5 g/dL 32-36 [facility] No Panel InformationOrdered By: Dr. Anderson on 04-19-2022 Estimated GFR (MDRD) Amer 100 mL/min >60 [facility] Comment on above: GFR Calc Estimated GFR (MDRD) Non-Af Amer 82 mL/min >60 [facility] Comment on above: Non- GFR Calc Platelets bldOrdered By: Dr. Anderson on 04-19-2022 Platelets (Bld) [#/Vol] 347 10*3/uL 150-450 [facility] Serum or plasma C reactive p rotein measurement (mass/volume)Ordered By: Dr. Anderson on 04-19-2022 CRP [Mass/Vol] 16.00 mg/L 0.0-3.0 [facility] Comment on above: C-Reactive Protein ( CRP) provides useful information for thediagnosis, therapy and monitoring of inflammatory processesand associated diseases. For the evaluation of Relative Riskfor Cardiovascular Disease, a High Sensitivity CRP (HSCRP)should be ordered. Serum or plasma calcium moriah urement (mass/volume)Ordered By: Dr. Anderson on 04-19-2022 Calcium [Mass/Vol] 8.5 mg/dL 8.5-10.1 [facility] Serum or plasma creatinine m easurement (mass/volume)Ordered By: Dr. Anderson on 04-19-2022 Creatinine [Mass/Vol] 0.74 mg/dL 0.55-1.02 [facility] Comment on above: The validity of the calculated GFR & GFRAA in patients over 70 years has not been determined. Clinical correlation is essential. Serum or plasma urea nitroge n measurement (mass/volume)Ordered By: Dr. Anderson on 04-19-2022 Urea nitrogen [Mass/Vol] 24 mg/dL 7-18 [facility] Thin prep Papanicolaou smear with manual screeningOrdered By: Dr. Anderson on 04-19-2022 Thin prep Papanicolaou smear with manual screening 6 5-15 [facility] Culture, urineOrdered By: Dr Alicia Ocampo on 04-18-2022 Bacteria identified Cx Nom (U) Culture exhibits no growth. [facility] Absolute lymphocyte countOrd ered By: Dr. Ocampo on 04-15-2022 Lymphocytes Auto (Unsp spec) [#/Vol] 2.54 10*3/uL 0.83-4.51 [facility] Basophil percentageOrdered B y: Dr. Ocampo on 04-15-2022 Basophil percentage 0 SEEN /hpf 0-5 [facility] Basophils/100 WBC (Bld) 0.9 % 0-1 [facility] Bilirubin [Mass/Vol] 0.20 mg/dL 0.20-1.00 [facility] Comment on above: For patients on eltr ombopag therapy, use of Dimension Assaria TBIL is not recommended. Chloride [Moles/Vol] 102 mmol/L 98-107 [facility] Eosinophils/100 WBC (Bld) 4.3 % 0-5 [facility] Glucose [Mass/Vol] 100 mg/dL 74-106 [facility] Comment on above: Fasting Glucose resu lt from 100 to 125 mg/dL suggests IMPAIRED HOMEOSTASIS per A.D.A. criteria. Neutrophils (Bld) [#/Vol] 3.9 10*3/uL 2.0-7.7 [facility] Neutrophils/100 WBC (Bld) 50.0 % 47-70 [facility] Potassium [Moles/Vol] 4.5 mmol/L 3.5-5.1 [facility] Protein [Mass/Vol] 7.1 g/dL 6.4-8.2 [facility] Sodium [Moles/Vol] 140 mmol/L 136-145 [facility] WBC (Bld) [#/Vol] 7.8 10*3/uL 4.4-11.0 [facility] Bilirubin Test strip Ql (U)O rdered By: Dr. Ocampo on 04-15-2022 Bilirubin Ql (U) Negative Negative [facility] Blood erythrocytes count (nu mber/volume)Ordered By: Dr. Ocampo on 04-15-2022 RBC (Bld) [#/Vol] 3.57 10*6/uL 4.2-5.4 [facility] Blood hemoglobin measurement (mass/volume)Ordered By: Dr. Ocampo on 04-15-2022 Hemoglobin (Bld) [Mass/Vol] 11.0 g/dL 12.0-15.0 [facility] Blood lymphocytes/100 leukoc ytesOrdered By: Dr. Ocampo on 04-15-2022 Lymphocytes/100 WBC (Bld) 32.4 % 19-41 [facility] Blood monocytes/100 leukocyt esOrdered By: Dr. Ocampo on 04-15-2022 Monocytes/100 WBC (Bld) 12.1 % 0-10 [facility] Blood platelet mean volumeOr dered By: Dr. Ocampo on 04-15-2022 Platelet mean volume (Bld) [Entitic vol] 9.8 fL 6.2-12.0 [facility] Determination of erythrocyte mean corpuscular volume (MCV)Ordered By: Dr. Ocampo on 04-15-2022 MCV (RBC) [Entitic vol] 97.2 fL 81-99 [facility] Hematocrit Auto (Bld) [Volum e fraction]Ordered By: Dr. Ocampo on 04-15-2022 Hematocrit (Bld) [Volume fraction] 34.7 % 37-47 [facility] INR in Blood by Coagulation assayOrdered By: Dr. Ocampo on 04-15-2022 INR Coag (Bld) [Relative time] 1.1 {INR} [facility] Ketones Test strip Ql (U)Ord ered By: Dr. Ocampo on 04-15-2022 Ketones Ql (U) Negative Negative [facility] Laboratory - Chemistry and C hemistry - challengeOrdered By: Dr. Ocampo on 04-15-2022 ALP [Catalytic activity/Vol] 92 U/L 45-117 [facility] ALT [Catalytic activity/Vol] 15 U/L 13-56 [facility] CO2 [Moles/Vol] 32.0 mmol/L 21.0-32.0 [facility] Globulin (S) [Mass/Vol] 3.6 g/dL 2.2-4.2 [facility] Urea nitrogen/Creatinine [Mass ratio] 28.1 mg/mg 10-20 [facility] Laboratory - CoagulationOrde red By: Dr. Ocampo on 04-15-2022 aPTT Coag (Bld) [Time] 29.1 s 24.1-36.2 [facility] PT Coag (PPP) [Time] 13.5 s 11.7-14.9 [facility] Laboratory - Hematology and Cell countsOrdered By: Dr. Ocampo on 04-15-2022 Erythrocyte distribution width (RBC) [Entitic vol] 44.9 fL 35.1-43.9 [facility] Erythrocyte distribution width (RBC) [Ratio] 12.8 % 11.6-14.6 [facility] Immature granulocytes/100 WBC (Bld) 0.300 % 0.0-0.9 [facility] Comment on above: IG% - Immature Granu locytes (promyelocytes, myelocytes and metamyelocytes) > 1% indicates that a LEFT SHIFT is Present. MCH (RBC) [Entitic mass] 30.8 pg 27.0-32.0 [facility] Nucleated RBC/100 WBC (Bld) [Ratio] 0 % 0-5 [facility] MCHC Auto (RBC) [Mass/Vol]Or dered By: Dr. Ocampo on 04-15-2022 MCHC (RBC) [Mass/Vol] 31.7 g/dL 32-36 [facility] Mucus LM Ql (Urine sed)Order ed By: Dr. Ocampo on 04-15-2022 Mucus Ql (Urine sed) 0 SEEN /hpf [facility] Nitrite Test strip Ql (U)Ord ered By: Dr. Ocampo on 04-15-2022 Nitrite Ql (U) Negative Negative [facility] No Panel InformationOrdered By: Dr. Ocampo on 04-15-2022 Estimated Creatinine Clearance Calc 44.24 ml/min [facility] Estimated GFR (MDRD) Amer 85 mL/min >60 [facility] Comment on above: GFR Calc Estimated GFR (MDRD) Non-Af Amer 70 mL/min >60 [facility] Comment on above: Non- GFR Calc Platelets bldOrdered By: Dr. Ocampo on 04-15-2022 Platelets (Bld) [#/Vol] 390 10*3/uL 150-450 [facility] Protein Test strip Ql (U)Ord ered By: Dr. Ocampo on 04-15-2022 Protein Ql (U) 15 mg/dl Negative [facility] Serum or plasma albumin moriah urement (mass/volume)Ordered By: Dr. Ocampo on 04-15-2022 Albumin [Mass/Vol] 3.5 g/dL 3.2-5.0 [facility] Serum or plasma albumin/glob ulin mass ratioOrdered By: Dr. Ocampo on 04-15-2022 Albumin/Globulin [Mass ratio] 1.0 {ratio} 0.9-2.4 [facility] Serum or plasma calcium moriah urement (mass/volume)Ordered By: Dr. Ocampo on 04-15-2022 Calcium [Mass/Vol] 9.0 mg/dL 8.5-10.1 [facility] Serum or plasma creatinine m easurement (mass/volume)Ordered By: Dr. Ocampo on 04-15-2022 Creatinine [Mass/Vol] 0.85 mg/dL 0.55-1.02 [facility] Comment on above: The validity of the calculated GFR & GFRAA in patients over 70 years has not been determined. Clinical correlation is essential. Serum or plasma urea nitroge n measurement (mass/volume)Ordered By: Dr. Ocampo on 04-15-2022 Urea nitrogen [Mass/Vol] 24 mg/dL 7-18 [facility] Squamous epithelial cells de tection in urine sediment by light microscopyOrdered By: Dr. Ocampo on 04-15-2022 Epithelial cells.squamous LM Ql (Urine sed) 0 SEEN /hpf 5-10 [facility] Thin prep Papanicolaou smear with manual screeningOrdered By: Dr. Ocampo on 04-15-2022 Thin prep Papanicolaou smear with manual screening 18 U/L 15-37 [facility] Thin prep Papanicolaou smear with manual screening 6 5-15 [facility] Urine blood detectionOrdered By: Dr. Ocampo on 04-15-2022 RBC Ql (U) Negative Negative [facility] RBC Ql (U) 0 SEEN /hpf 0-5 [facility] Urine clarityOrdered By: Dr. Ocampo on 04-15-2022 Clarity (U) Clear Clear [facility] Urine color determinationOrd ered By: Dr. Ocampo on 04-15-2022 Color (U) Yellow Yellow [facility] Urine glucose detectionOrder ed By: Dr. Ocampo on 04-15-2022 Glucose Ql (U) Negative Normal [facility] Urine leukocyte esterase det ection by dipstickOrdered By: Dr. Ocampo on 04-15-2022 Leukocyte esterase Test strip Ql (U) Negative Negative [facility] Urine pHOrdered By: Dr. Ocampo o n 04-15-2022 pH (U) 5.0 [pH] 5.0 - 8.0 [facility] Urine sediment bacteria coun t by microscopy (number/high power field)Ordered By: Dr. Ocampo on 04-15-2022 Bacteria LM.HPF (Urine sed) [#/Area] 0 /[HPF] None Seen [facility] Urine specific gravity measu rementOrdered By: Dr. Ocampo on 04-15-2022 Specific gravity (U) [Rel density] 1.020 1.002-1.030 [facility] Urobilinogen Auto test strip Ql (U)Ordered By: Dr. Ocampo on 04-15-2022 Urobilinogen Ql (U) Normal mg/dl Normal [facility] Culture, urineOrdered By: Dr Alicia Anderson on 03-31-2022 Bacteria identified Cx Nom (U) Enterococcus faecalis [facility] No Panel InformationOrdered By: Dr. Anderson on 03-30-2022 Thyroid Stimulating Hormone (TSH) 3.00 uIU/mL 0.358-3.74 [facility] Absolute lymphocyte countOrd ered By: Dr. Anderson on 03-29-2022 Lymphocytes Auto (Unsp spec) [#/Vol] 2.37 10*3/uL 0.83-4.51 [facility] Basophil percentageOrdered B y: Dr. Anderson on 03-29-2022 Basophils/100 WBC (Bld) 0.9 % 0-1 [facility] Chloride [Moles/Vol] 108 mmol/L 98-107 [facility] Eosinophils/100 WBC (Bld) 6.7 % 0-5 [facility] Glucose [Mass/Vol] 81 mg/dL 74-106 [facility] Neutrophils (Bld) [#/Vol] 2.2 10*3/uL 2.0-7.7 [facility] Neutrophils/100 WBC (Bld) 38.3 % 47-70 [facility] Potassium [Moles/Vol] 3.9 mmol/L 3.5-5.1 [facility] Sodium [Moles/Vol] 144 mmol/L 136-145 [facility] WBC (Bld) [#/Vol] 5.7 10*3/uL 4.4-11.0 [facility] Blood erythrocytes count (nu mber/volume)Ordered By: Dr. Anderson on 03-29-2022 RBC (Bld) [#/Vol] 3.71 10*6/uL 4.2-5.4 [facility] Blood hemoglobin measurement (mass/volume)Ordered By: Dr. Anderson on 03-29-2022 Hemoglobin (Bld) [Mass/Vol] 11.4 g/dL 12.0-15.0 [facility] Blood lymphocytes/100 leukoc ytesOrdered By: Dr. Anderson on 03-29-2022 Lymphocytes/100 WBC (Bld) 41.9 % 19-41 [facility] Blood monocytes/100 leukocyt esOrdered By: Dr. Anderson on 03-29-2022 Monocytes/100 WBC (Bld) 12.0 % 0-10 [facility] Blood platelet mean volumeOr dered By: Dr. Anderson on 03-29-2022 Platelet mean volume (Bld) [Entitic vol] 10.5 fL 6.2-12.0 [facility] Determination of erythrocyte mean corpuscular volume (MCV)Ordered By: Dr. Anderson on 03-29-2022 MCV (RBC) [Entitic vol] 99.7 fL 81-99 [facility] Hematocrit Auto (Bld) [Volum e fraction]Ordered By: Dr. Anderson on 03-29-2022 Hematocrit (Bld) [Volume fraction] 37.0 % 37-47 [facility] Laboratory - Chemistry and C hemistry - challengeOrdered By: Dr. Anderson on 03-29-2022 CO2 [Moles/Vol] 30.0 mmol/L 21.0-32.0 [facility] Urea nitrogen/Creatinine [Mass ratio] 15.4 mg/mg 10-20 [facility] Laboratory - Hematology and Cell countsOrdered By: Dr. Anderson on 03-29-2022 Erythrocyte distribution width (RBC) [Entitic vol] 49.0 fL 35.1-43.9 [facility] Erythrocyte distribution width (RBC) [Ratio] 13.4 % 11.6-14.6 [facility] Immature granulocytes/100 WBC (Bld) 0.200 % 0.0-0.9 [facility] Comment on above: IG% - Immature Granu locytes (promyelocytes, myelocytes and metamyelocytes) > 1% indicates that a LEFT SHIFT is Present. MCH (RBC) [Entitic mass] 30.7 pg 27.0-32.0 [facility] Nucleated RBC/100 WBC (Bld) [Ratio] 0 % 0-5 [facility] MCHC Auto (RBC) [Mass/Vol]Or dered By: Dr. Anderson on 03-29-2022 MCHC (RBC) [Mass/Vol] 30.8 g/dL 32-36 [facility] No Panel InformationOrdered By: Dr. Anderson on 03-29-2022 Estimated GFR (MDRD) Amer 104 mL/min >60 [facility] Comment on above: GFR Calc Estimated GFR (MDRD) Non-Af Amer 86 mL/min >60 [facility] Comment on above: Non- GFR Calc Platelets bldOrdered By: Dr. Anderson on 03-29-2022 Platelets (Bld) [#/Vol] 277 10*3/uL 150-450 [facility] Serum or plasma calcium moriah urement (mass/volume)Ordered By: Dr. Anderson on 03-29-2022 Calcium [Mass/Vol] 8.5 mg/dL 8.5-10.1 [facility] Serum or plasma creatinine m easurement (mass/volume)Ordered By: Dr. Anderson on 03-29-2022 Creatinine [Mass/Vol] 0.71 mg/dL 0.55-1.02 [facility] Comment on above: The validity of the calculated GFR & GFRAA in patients over 70 years has not been determined. Clinical correlation is essential. Serum or plasma urea nitroge n measurement (mass/volume)Ordered By: Dr. Anderson on 03-29-2022 Urea nitrogen [Mass/Vol] 11 mg/dL 7-18 [facility] Thin prep Papanicolaou smear with manual screeningOrdered By: Dr. Anderson on 03-29-2022 Thin prep Papanicolaou smear with manual screening 6 5-15 [facility] Bilirubin Test strip Ql (U)O rdered By: Dr. Anderson on 03-28-2022 Bilirubin Ql (U) Negative Negative [facility] Ketones Test strip Ql (U)Ord ered By: Dr. Anderson on 03-28-2022 Ketones Ql (U) Negative Negative [facility] Nitrite Test strip Ql (U)Ord ered By: Dr. Anderson on 03-28-2022 Nitrite Ql (U) Negative Negative [facility] Protein Test strip Ql (U)Ord ered By: Dr. Anderson on 03-28-2022 Protein Ql (U) Negative Negative [facility] Urine blood detectionOrdered By: Dr. Anderson on 03-28-2022 RBC Ql (U) Negative Negative [facility] Urine clarityOrdered By: Dr. Anderson on 03-28-2022 Clarity (U) Sl. Cloudy Clear [facility] Urine color determinationOrd ered By: Dr. Anderson on 03-28-2022 Color (U) Yellow Yellow [facility] Urine glucose detectionOrder ed By: Dr. Anderson on 03-28-2022 Glucose Ql (U) Normal mg/dl Normal [facility] Urine leukocyte esterase det ection by dipstickOrdered By: Dr. Anderson on 03-28-2022 Leukocyte esterase Test strip Ql (U) 25 /ul Negative [facility] Urine pHOrdered By: Dr. Andres owen on 03-28-2022 pH (U) 6.0 [pH] 5.0 - 8.0 [facility] Urine specific gravity measu rementOrdered By: Dr. Anderson on 03-28-2022 Specific gravity (U) [Rel density] 1.010 1.002-1.030 [facility] Urobilinogen Auto test strip Ql (U)Ordered By: Dr. Anderson on 03-28-2022 Urobilinogen Ql (U) Normal mg/dl Normal [facility] Absolute lymphocyte countOrd ered By: Dr. Anderson on 03-11-2022 Lymphocytes Auto (Unsp spec) [#/Vol] 2.38 10*3/uL 0.83-4.51 [facility] Basophil percentageOrdered B y: Dr. Anderson on 03-11-2022 Basophils/100 WBC (Bld) 0.8 % 0-1 [facility] Bilirubin [Mass/Vol] 0.30 mg/dL 0.20-1.00 [facility] Comment on above: For patients on eltr ombopag therapy, use of Dimension Assaria TBIL is not recommended. Chloride [Moles/Vol] 107 mmol/L 98-107 [facility] Eosinophils/100 WBC (Bld) 5.4 % 0-5 [facility] Glucose [Mass/Vol] 85 mg/dL 74-106 [facility] Neutrophils (Bld) [#/Vol] 2.7 10*3/uL 2.0-7.7 [facility] Neutrophils/100 WBC (Bld) 44.6 % 47-70 [facility] Potassium [Moles/Vol] 4.1 mmol/L 3.5-5.1 [facility] Protein [Mass/Vol] 5.7 g/dL 6.4-8.2 [facility] Sodium [Moles/Vol] 141 mmol/L 136-145 [facility] WBC (Bld) [#/Vol] 6.1 10*3/uL 4.4-11.0 [facility] Blood erythrocytes count (nu mber/volume)Ordered By: Dr. Anderson on 03-11-2022 RBC (Bld) [#/Vol] 3.72 10*6/uL 4.2-5.4 [facility] Blood hemoglobin measurement (mass/volume)Ordered By: Dr. Anderson on 03-11-2022 Hemoglobin (Bld) [Mass/Vol] 11.3 g/dL 12.0-15.0 [facility] Blood lymphocytes/100 leukoc ytesOrdered By: Dr. Anderson on 03-11-2022 Lymphocytes/100 WBC (Bld) 39.1 % 19-41 [facility] Blood monocytes/100 leukocyt esOrdered By: Dr. Anderson on 03-11-2022 Monocytes/100 WBC (Bld) 9.9 % 0-10 [facility] Blood platelet mean volumeOr dered By: Dr. Anderson on 03-11-2022 Platelet mean volume (Bld) [Entitic vol] 10.6 fL 6.2-12.0 [facility] Determination of erythrocyte mean corpuscular volume (MCV)Ordered By: Dr. Anderson on 03-11-2022 MCV (RBC) [Entitic vol] 99.2 fL 81-99 [facility] Hematocrit Auto (Bld) [Volum e fraction]Ordered By: Dr. Anderson on 03-11-2022 Hematocrit (Bld) [Volume fraction] 36.9 % 37-47 [facility] Laboratory - Chemistry and C hemistry - challengeOrdered By: Dr. Anderson on 03-11-2022 ALP [Catalytic activity/Vol] 90 U/L 45-117 [facility] ALT [Catalytic activity/Vol] 14 U/L 13-56 [facility] CO2 [Moles/Vol] 32.0 mmol/L 21.0-32.0 [facility] Cobalamin (Vitamin B12) [Mass/Vol] 1100 pg/mL 211-911 [facility] Globulin (S) [Mass/Vol] 2.9 g/dL 2.2-4.2 [facility] Urea nitrogen/Creatinine [Mass ratio] 13.6 mg/mg 10-20 [facility] Laboratory - Hematology and Cell countsOrdered By: Dr. Anderson on 03-11-2022 Erythrocyte distribution width (RBC) [Entitic vol] 46.8 fL 35.1-43.9 [facility] Erythrocyte distribution width (RBC) [Ratio] 12.9 % 11.6-14.6 [facility] Immature granulocytes/100 WBC (Bld) 0.200 % 0.0-0.9 [facility] Comment on above: IG% - Immature Granu locytes (promyelocytes, myelocytes and metamyelocytes) > 1% indicates that a LEFT SHIFT is Present. MCH (RBC) [Entitic mass] 30.4 pg 27.0-32.0 [facility] Nucleated RBC/100 WBC (Bld) [Ratio] 0 % 0-5 [facility] MCHC Auto (RBC) [Mass/Vol]Or dered By: Dr. Anderson on 03-11-2022 MCHC (RBC) [Mass/Vol] 30.6 g/dL 32-36 [facility] No Panel InformationOrdered By: Dr. Anderson on 03-11-2022 Estimated GFR (MDRD) Amer 113 mL/min >60 [facility] Comment on above: GFR Calc Estimated GFR (MDRD) Non-Af Amer 93 mL/min >60 [facility] Comment on above: Non- GFR Calc Thyroid Stimulating Hormone (TSH) 3.25 uIU/mL 0.358-3.74 [facility] Platelets bldOrdered By: Dr. Anderson on 03-11-2022 Platelets (Bld) [#/Vol] 244 10*3/uL 150-450 [facility] Serum or plasma albumin moriah urement (mass/volume)Ordered By: Dr. Anderson on 03-11-2022 Albumin [Mass/Vol] 2.8 g/dL 3.2-5.0 [facility] Serum or plasma albumin/glob ulin mass ratioOrdered By: Dr. Anderson on 03-11-2022 Albumin/Globulin [Mass ratio] 1.0 {ratio} 0.9-2.4 [facility] Serum or plasma calcium moriah urement (mass/volume)Ordered By: Dr. Anderson on 03-11-2022 Calcium [Mass/Vol] 8.4 mg/dL 8.5-10.1 [facility] Serum or plasma creatinine m easurement (mass/volume)Ordered By: Dr. Anderson on 03-11-2022 Creatinine [Mass/Vol] 0.66 mg/dL 0.55-1.02 [facility] Comment on above: The validity of the calculated GFR & GFRAA in patients over 70 years has not been determined. Clinical correlation is essential. Serum or plasma lamotrigine measurement (mass/volume)Ordered By: Dr. Anderson on 03-11-2022 lamoTRIgine [Mass/Vol] 3.0 ug/mL 2.0-20.0 [facility] Comment on above: Detection Limit = 1. 0Performed at: - [address] [id number] Director: Marino Mckeon MD, Phone: [phone] Serum or plasma urea nitroge n measurement (mass/volume)Ordered By: Dr. Anderson on 03-11-2022 Urea nitrogen [Mass/Vol] 9 mg/dL 7-18 [facility] Thin prep Papanicolaou smear with manual screeningOrdered By: Dr. Anderson on 03-11-2022 Thin prep Papanicolaou smear with manual screening 13 U/L 15-37 [facility] Thin prep Papanicolaou smear with manual screening 2 5-15 [facility] Thin prep Papanicolaou smear with manual screeningOrdered By: Dr. Anderson on 03-07-2022 Thin prep Papanicolaou smear with manual screening Normal genital pierre isolated [facility] Gram stain for investigation of transfusion reactionOrdered By: Dr. Anderson on 12-17-2022 Microscopic observation Gram stain Nom (Unsp spec) [facility] Absolute lymphocyte countOrd ered By: Dr. Anderson on 02-16-2022 Lymphocytes Auto (Unsp spec) [#/Vol] 2.46 10*3/uL 0.83-4.51 [facility] Basophil percentageOrdered B y: Dr. Anderson on 02-16-2022 Basophils/100 WBC (Bld) 0.8 % 0-1 [facility] Eosinophils/100 WBC (Bld) 4.7 % 0-5 [facility] Neutrophils (Bld) [#/Vol] 1.8 10*3/uL 2.0-7.7 [facility] Neutrophils/100 WBC (Bld) 35.6 % 47-70 [facility] WBC (Bld) [#/Vol] 5.1 10*3/uL 4.4-11.0 [facility] Blood erythrocytes count (nu mber/volume)Ordered By: Dr. Anderson on 02-16-2022 RBC (Bld) [#/Vol] 3.71 10*6/uL 4.2-5.4 [facility] Blood hemoglobin measurement (mass/volume)Ordered By: Dr. Anderson on 02-16-2022 Hemoglobin (Bld) [Mass/Vol] 11.4 g/dL 12.0-15.0 [facility] Blood lymphocytes/100 leukoc ytesOrdered By: Dr. Anderson on 02-16-2022 Lymphocytes/100 WBC (Bld) 48.6 % 19-41 [facility] Blood monocytes/100 leukocyt esOrdered By: Dr. Anderson on 02-16-2022 Monocytes/100 WBC (Bld) 10.1 % 0-10 [facility] Blood platelet mean volumeOr dered By: Dr. Anderson on 02-16-2022 Platelet mean volume (Bld) [Entitic vol] 10.7 fL 6.2-12.0 [facility] Determination of erythrocyte mean corpuscular volume (MCV)Ordered By: Dr. Anderson on 02-16-2022 MCV (RBC) [Entitic vol] 99.7 fL 81-99 [facility] Hematocrit Auto (Bld) [Volum e fraction]Ordered By: Dr. Anderson on 02-16-2022 Hematocrit (Bld) [Volume fraction] 37.0 % 37-47 [facility] Laboratory - Chemistry and C hemistry - challengeOrdered By: Dr. Anderson on 02-16-2022 Magnesium [Mass/Vol] 2.0 mg/dL 1.6-2.6 [facility] Laboratory - Hematology and Cell countsOrdered By: Dr. Anderson on 02-16-2022 Erythrocyte distribution width (RBC) [Entitic vol] 46.5 fL 35.1-43.9 [facility] Erythrocyte distribution width (RBC) [Ratio] 12.8 % 11.6-14.6 [facility] Immature granulocytes/100 WBC (Bld) 0.200 % 0.0-0.9 [facility] Comment on above: IG% - Immature Granu locytes (promyelocytes, myelocytes and metamyelocytes) > 1% indicates that a LEFT SHIFT is Present. MCH (RBC) [Entitic mass] 30.7 pg 27.0-32.0 [facility] Nucleated RBC/100 WBC (Bld) [Ratio] 0 % 0-5 [facility] MCHC Auto (RBC) [Mass/Vol]Or dered By: Dr. Anderson on 02-16-2022 MCHC (RBC) [Mass/Vol] 30.8 g/dL 32-36 [facility] No Panel InformationOrdered By: Dr. Anderson on 02-16-2022 Thyroid Stimulating Hormone (TSH) 4.61 uIU/mL 0.358-3.74 [facility] Vitamin B12 Level > 2000 pg/mL 211-911 [facility] Vitamin D 25-Hydroxy 54.2 ng/mL [facility] Comment on above: Vitamin D 25(OH) Sta tus Range Deficiency <20 ng/mL (50nmol/L) Insufficiency 20 - 30 ng/mL (50 - 75 nmol/L) Sufficiency 30 - 100 ng/mL (75 - 250 nmol/L) Toxicity >100 ng/mL (>250 nmol/L) Platelets bldOrdered By: Dr. Anderson on 02-16-2022 Platelets (Bld) [#/Vol] 242 10*3/uL 150-450 [facility] Absolute lymphocyte countOrd ered By: Dr. Malave on 02-14-2022 Lymphocytes Auto (Unsp spec) [#/Vol] 2.42 10*3/uL 0.83-4.51 [facility] Basophil percentageOrdered B y: Dr. Malave on 02-14-2022 Basophil percentage 0 SEEN /hpf 0-5 [facility] Basophils/100 WBC (Bld) 0.7 % 0-1 [facility] Chloride [Moles/Vol] 112 mmol/L 98-107 [facility] Eosinophils/100 WBC (Bld) 5.3 % 0-5 [facility] Glucose [Mass/Vol] 87 mg/dL 74-106 [facility] Neutrophils (Bld) [#/Vol] 2.2 10*3/uL 2.0-7.7 [facility] Neutrophils/100 WBC (Bld) 39.4 % 47-70 [facility] Potassium [Moles/Vol] 3.7 mmol/L 3.5-5.1 [facility] Sodium [Moles/Vol] 143 mmol/L 136-145 [facility] WBC (Bld) [#/Vol] 5.5 10*3/uL 4.4-11.0 [facility] Bilirubin Test strip Ql (U)O rdered By: Dr. Malave on 02-14-2022 Bilirubin Ql (U) Negative Negative [facility] Blood erythrocytes count (nu mber/volume)Ordered By: Dr. Malave on 02-14-2022 RBC (Bld) [#/Vol] 3.46 10*6/uL 4.2-5.4 [facility] Blood hemoglobin measurement (mass/volume)Ordered By: Dr. Malave on 02-14-2022 Hemoglobin (Bld) [Mass/Vol] 10.5 g/dL 12.0-15.0 [facility] Blood lymphocytes/100 leukoc ytesOrdered By: Dr. Malave on 02-14-2022 Lymphocytes/100 WBC (Bld) 44.2 % 19-41 [facility] Blood monocytes/100 leukocyt esOrdered By: Dr. Malave on 02-14-2022 Monocytes/100 WBC (Bld) 10.2 % 0-10 [facility] Blood platelet mean volumeOr dered By: Dr. Malave on 02-14-2022 Platelet mean volume (Bld) [Entitic vol] 10.8 fL 6.2-12.0 [facility] Determination of erythrocyte mean corpuscular volume (MCV)Ordered By: Dr. Malave on 02-14-2022 MCV (RBC) [Entitic vol] 101.7 fL 81-99 [facility] Hematocrit Auto (Bld) [Volum e fraction]Ordered By: Dr. Malave on 02-14-2022 Hematocrit (Bld) [Volume fraction] 35.2 % 37-47 [facility] Ketones Test strip Ql (U)Ord ered By: Dr. Malave on 02-14-2022 Ketones Ql (U) Negative Negative [facility] Laboratory - Chemistry and C hemistry - challengeOrdered By: Dr. Malave on 02-14-2022 CO2 [Moles/Vol] 27.0 mmol/L 21.0-32.0 [facility] Urea nitrogen/Creatinine [Mass ratio] 14.0 mg/mg 10-20 [facility] Laboratory - Hematology and Cell countsOrdered By: Dr. Malave on 02-14-2022 Erythrocyte distribution width (RBC) [Entitic vol] 48.1 fL 35.1-43.9 [facility] Erythrocyte distribution width (RBC) [Ratio] 12.9 % 11.6-14.6 [facility] Immature granulocytes/100 WBC (Bld) 0.200 % 0.0-0.9 [facility] Comment on above: IG% - Immature Granu locytes (promyelocytes, myelocytes and metamyelocytes) > 1% indicates that a LEFT SHIFT is Present. MCH (RBC) [Entitic mass] 30.3 pg 27.0-32.0 [facility] Nucleated RBC/100 WBC (Bld) [Ratio] 0 % 0-5 [facility] MCHC Auto (RBC) [Mass/Vol]Or dered By: Dr. Malave on 02-14-2022 MCHC (RBC) [Mass/Vol] 29.8 g/dL 32-36 [facility] Mucus LM Ql (Urine sed)Order ed By: Dr. Malave on 02-14-2022 Mucus Ql (Urine sed) 0 SEEN /hpf [facility] Nitrite Test strip Ql (U)Ord ered By: Dr. Malave on 02-14-2022 Nitrite Ql (U) Negative Negative [facility] No Panel InformationOrdered By: Dr. Malave on 02-14-2022 Estimated Creatinine Clearance Calc 37.60 ml/min [facility] Estimated GFR (MDRD) Amer 117 mL/min >60 [facility] Comment on above: GFR Calc Estimated GFR (MDRD) Non-Af Amer 97 mL/min >60 [facility] Comment on above: Non- GFR Calc Platelets bldOrdered By: Dr. Malave on 02-14-2022 Platelets (Bld) [#/Vol] 201 10*3/uL 150-450 [facility] Protein Test strip Ql (U)Ord ered By: Dr. Malave on 02-14-2022 Protein Ql (U) Negative Negative [facility] Serum or plasma calcium moriah urement (mass/volume)Ordered By: Dr. Malave on 02-14-2022 Calcium [Mass/Vol] 8.0 mg/dL 8.5-10.1 [facility] Serum or plasma creatinine m easurement (mass/volume)Ordered By: Dr. Malave on 02-14-2022 Creatinine [Mass/Vol] 0.64 mg/dL 0.55-1.02 [facility] Comment on above: The validity of the calculated GFR & GFRAA in patients over 70 years has not been determined. Clinical correlation is essential. Serum or plasma urea nitroge n measurement (mass/volume)Ordered By: Dr. Malave on 02-14-2022 Urea nitrogen [Mass/Vol] 9 mg/dL 7-18 [facility] Squamous epithelial cells de tection in urine sediment by light microscopyOrdered By: Dr. Malave on 02-14-2022 Epithelial cells.squamous LM Ql (Urine sed) 0 SEEN /hpf 5-10 [facility] Thin prep Papanicolaou smear with manual screeningOrdered By: Dr. Malave on 02-14-2022 Thin prep Papanicolaou smear with manual screening 4 5-15 [facility] Urine blood detectionOrdered By: Dr. Malave on 02-14-2022 RBC Ql (U) Negative Negative [facility] RBC Ql (U) 0 SEEN /hpf 0-5 [facility] Urine clarityOrdered By: Dr. Malave on 02-14-2022 Clarity (U) Clear Clear [facility] Urine color determinationOrd ered By: Dr. Malave on 02-14-2022 Color (U) Yellow Yellow [facility] Urine glucose detectionOrder ed By: Dr. Malave on 02-14-2022 Glucose Ql (U) Normal mg/dl Normal [facility] Urine leukocyte esterase det ection by dipstickOrdered By: Dr. Malave on 02-14-2022 Leukocyte esterase Test strip Ql (U) 25 /ul Negative [facility] Urine pHOrdered By: Dr. Ar sanchez on 02-14-2022 pH (U) 6.0 [pH] 5.0 - 8.0 [facility] Urine sediment bacteria coun t by microscopy (number/high power field)Ordered By: Dr. Malave on 02-14-2022 Bacteria LM.HPF (Urine sed) [#/Area] 0 /[HPF] None Seen [facility] Urine specific gravity measu rementOrdered By: Dr. Malave on 02-14-2022 Specific gravity (U) [Rel density] 1.015 1.002-1.030 [facility] Urobilinogen Auto test strip Ql (U)Ordered By: Dr. Malave on 02-14-2022 Urobilinogen Ql (U) Normal mg/dl Normal [facility] Absolute lymphocyte countOrd ered By: Dr. Anderson on 02-08-2022 Lymphocytes Auto (Unsp spec) [#/Vol] 2.55 10*3/uL 0.83-4.51 [facility] Basophil percentageOrdered B y: Dr. Anderson on 02-08-2022 Basophils/100 WBC (Bld) 1.1 % 0-1 [facility] Chloride [Moles/Vol] 109 mmol/L 98-107 [facility] Eosinophils/100 WBC (Bld) 5.7 % 0-5 [facility] Glucose [Mass/Vol] 89 mg/dL 74-106 [facility] Neutrophils (Bld) [#/Vol] 1.3 10*3/uL 2.0-7.7 [facility] Neutrophils/100 WBC (Bld) 28.3 % 47-70 [facility] Potassium [Moles/Vol] 3.6 mmol/L 3.5-5.1 [facility] Sodium [Moles/Vol] 144 mmol/L 136-145 [facility] WBC (Bld) [#/Vol] 4.6 10*3/uL 4.4-11.0 [facility] Blood erythrocytes count (nu mber/volume)Ordered By: Dr. Anderson on 02-08-2022 RBC (Bld) [#/Vol] 3.62 10*6/uL 4.2-5.4 [facility] Blood hemoglobin measurement (mass/volume)Ordered By: Dr. Anderson on 02-08-2022 Hemoglobin (Bld) [Mass/Vol] 11.4 g/dL 12.0-15.0 [facility] Blood lymphocytes/100 leukoc ytesOrdered By: Dr. Anderson on 02-08-2022 Lymphocytes/100 WBC (Bld) 55.7 % 19-41 [facility] Blood monocytes/100 leukocyt esOrdered By: Dr. Anderson on 02-08-2022 Monocytes/100 WBC (Bld) 9.2 % 0-10 [facility] Blood platelet mean volumeOr dered By: Dr. Anderson on 02-08-2022 Platelet mean volume (Bld) [Entitic vol] 10.8 fL 6.2-12.0 [facility] Determination of erythrocyte mean corpuscular volume (MCV)Ordered By: Dr. Anderson on 02-08-2022 MCV (RBC) [Entitic vol] 100.0 fL 81-99 [facility] Hematocrit Auto (Bld) [Volum e fraction]Ordered By: Dr. Anderson on 02-08-2022 Hematocrit (Bld) [Volume fraction] 36.2 % 37-47 [facility] Laboratory - Chemistry and C hemistry - challengeOrdered By: Dr. Anderson on 02-08-2022 CO2 [Moles/Vol] 31.0 mmol/L 21.0-32.0 [facility] Magnesium [Mass/Vol] 2.2 mg/dL 1.6-2.6 [facility] Urea nitrogen/Creatinine [Mass ratio] 14.2 mg/mg 10-20 [facility] Laboratory - Hematology and Cell countsOrdered By: Dr. Anderson on 02-08-2022 Erythrocyte distribution width (RBC) [Entitic vol] 46.6 fL 35.1-43.9 [facility] Erythrocyte distribution width (RBC) [Ratio] 12.7 % 11.6-14.6 [facility] Immature granulocytes/100 WBC (Bld) 0.000 % 0.0-0.9 [facility] Comment on above: IG% - Immature Granu locytes (promyelocytes, myelocytes and metamyelocytes) > 1% indicates that a LEFT SHIFT is Present. MCH (RBC) [Entitic mass] 31.5 pg 27.0-32.0 [facility] Nucleated RBC/100 WBC (Bld) [Ratio] 0 % 0-5 [facility] MCHC Auto (RBC) [Mass/Vol]Or dered By: Dr. Anderson on 02-08-2022 MCHC (RBC) [Mass/Vol] 31.5 g/dL 32-36 [facility] No Panel InformationOrdered By: Dr. Anderson on 02-08-2022 Estimated GFR (MDRD) Amer 105 mL/min >60 [facility] Comment on above: GFR Calc Estimated GFR (MDRD) Non-Af Amer 87 mL/min >60 [facility] Comment on above: Non- GFR Calc Platelets bldOrdered By: Dr. Anderson on 02-08-2022 Platelets (Bld) [#/Vol] 209 10*3/uL 150-450 [facility] Serum or plasma calcium moriah urement (mass/volume)Ordered By: Dr. Anderson on 02-08-2022 Calcium [Mass/Vol] 8.3 mg/dL 8.5-10.1 [facility] Serum or plasma creatinine m easurement (mass/volume)Ordered By: Dr. Anderson on 02-08-2022 Creatinine [Mass/Vol] 0.71 mg/dL 0.55-1.02 [facility] Comment on above: The validity of the calculated GFR & GFRAA in patients over 70 years has not been determined. Clinical correlation is essential. Serum or plasma urea nitroge n measurement (mass/volume)Ordered By: Dr. Anderson on 02-08-2022 Urea nitrogen [Mass/Vol] 10 mg/dL 7-18 [facility] Thin prep Papanicolaou smear with manual screeningOrdered By: Dr. Anderson on 02-08-2022 Thin prep Papanicolaou smear with manual screening 4 5-15 [facility] Absolute lymphocyte countOrd ered By: Dr. Anderson on 12-29-2021 Lymphocytes Auto (Unsp spec) [#/Vol] 2.72 10*3/uL 0.83-4.51 [facility] Basophil percentageOrdered B y: Dr. Anderson on 12-29-2021 Basophils/100 WBC (Bld) 1.0 % 0-1 [facility] Chloride [Moles/Vol] 107 mmol/L 98-107 [facility] Eosinophils/100 WBC (Bld) 7.1 % 0-5 [facility] Glucose [Mass/Vol] 77 mg/dL 74-106 [facility] Neutrophils (Bld) [#/Vol] 2.9 10*3/uL 2.0-7.7 [facility] Neutrophils/100 WBC (Bld) 41.4 % 47-70 [facility] Potassium [Moles/Vol] 4.3 mmol/L 3.5-5.1 [facility] Sodium [Moles/Vol] 141 mmol/L 136-145 [facility] WBC (Bld) [#/Vol] 6.9 10*3/uL 4.4-11.0 [facility] Blood erythrocytes count (nu mber/volume)Ordered By: Dr. Anderson on 12-29-2021 RBC (Bld) [#/Vol] 3.42 10*6/uL 4.2-5.4 [facility] Blood hemoglobin measurement (mass/volume)Ordered By: Dr. Anderson on 12-29-2021 Hemoglobin (Bld) [Mass/Vol] 10.8 g/dL 12.0-15.0 [facility] Blood lymphocytes/100 leukoc ytesOrdered By: Dr. Anderson on 12-29-2021 Lymphocytes/100 WBC (Bld) 39.2 % 19-41 [facility] Blood monocytes/100 leukocyt esOrdered By: Dr. Anderson on 12-29-2021 Monocytes/100 WBC (Bld) 11.0 % 0-10 [facility] Blood platelet mean volumeOr dered By: Dr. Anderson on 12-29-2021 Platelet mean volume (Bld) [Entitic vol] 10.9 fL 6.2-12.0 [facility] Determination of erythrocyte mean corpuscular volume (MCV)Ordered By: Dr. Anderson on 12-29-2021 MCV (RBC) [Entitic vol] 105.0 fL 81-99 [facility] Hematocrit Auto (Bld) [Volum e fraction]Ordered By: Dr. Anderson on 12-29-2021 Hematocrit (Bld) [Volume fraction] 35.9 % 37-47 [facility] Laboratory - Chemistry and C hemistry - challengeOrdered By: Dr. Anderson on 12-29-2021 CO2 [Moles/Vol] 30.0 mmol/L 21.0-32.0 [facility] Cobalamin (Vitamin B12) [Mass/Vol] 682 pg/mL 211-911 [facility] Urea nitrogen/Creatinine [Mass ratio] 13.8 mg/mg 10-20 [facility] Laboratory - Hematology and Cell countsOrdered By: Dr. Anderson on 12-29-2021 Erythrocyte distribution width (RBC) [Entitic vol] 49.0 fL 35.1-43.9 [facility] Erythrocyte distribution width (RBC) [Ratio] 12.8 % 11.6-14.6 [facility] Immature granulocytes/100 WBC (Bld) 0.300 % 0.0-0.9 [facility] Comment on above: IG% - Immature Granu locytes (promyelocytes, myelocytes and metamyelocytes) > 1% indicates that a LEFT SHIFT is Present. MCH (RBC) [Entitic mass] 31.6 pg 27.0-32.0 [facility] Nucleated RBC/100 WBC (Bld) [Ratio] 0 % 0-5 [facility] MCHC Auto (RBC) [Mass/Vol]Or dered By: Dr. Anderson on 12-29-2021 MCHC (RBC) [Mass/Vol] 30.1 g/dL 32-36 [facility] No Panel InformationOrdered By: Dr. Anderson on 12-29-2021 Estimated GFR (MDRD) Amer 102 mL/min >60 [facility] Comment on above: GFR Calc Estimated GFR (MDRD) Non-Af Amer 85 mL/min >60 [facility] Comment on above: Non- GFR Calc Vitamin D 25-Hydroxy 45.3 ng/mL [facility] Comment on above: Vitamin D 25(OH) Sta tus Range Deficiency <20 ng/mL (50nmol/L) Insufficiency 20 - 30 ng/mL (50 - 75 nmol/L) Sufficiency 30 - 100 ng/mL (75 - 250 nmol/L) Toxicity >100 ng/mL (>250 nmol/L) Platelets bldOrdered By: Dr. Anderson on 12-29-2021 Platelets (Bld) [#/Vol] 308 10*3/uL 150-450 [facility] Serum or plasma calcium moriah urement (mass/volume)Ordered By: Dr. Anderson on 12-29-2021 Calcium [Mass/Vol] 8.5 mg/dL 8.5-10.1 [facility] Serum or plasma creatinine m easurement (mass/volume)Ordered By: Dr. Anderson on 12-29-2021 Creatinine [Mass/Vol] 0.72 mg/dL 0.55-1.02 [facility] Comment on above: The validity of the calculated GFR & GFRAA in patients over 70 years has not been determined. Clinical correlation is essential. Serum or plasma urea nitroge n measurement (mass/volume)Ordered By: Dr. Anderson on 12-29-2021 Urea nitrogen [Mass/Vol] 10 mg/dL 7-18 [facility] Thin prep Papanicolaou smear with manual screeningOrdered By: Dr. Anderson on 12-29-2021 Thin prep Papanicolaou smear with manual screening 4 5-15 [facility] Absolute lymphocyte countOrd ered By: Dr. Anderson on 12-23-2021 Lymphocytes Auto (Unsp spec) [#/Vol] 2.25 10*3/uL 0.83-4.51 [facility] Basophil percentageOrdered B y: Dr. Anderson on 12-23-2021 Basophils/100 WBC (Bld) 0.8 % 0-1 [facility] Chloride [Moles/Vol] 108 mmol/L 98-107 [facility] Eosinophils/100 WBC (Bld) 8.2 % 0-5 [facility] Glucose [Mass/Vol] 78 mg/dL 74-106 [facility] Neutrophils (Bld) [#/Vol] 5.2 10*3/uL 2.0-7.7 [facility] Neutrophils/100 WBC (Bld) 59.1 % 47-70 [facility] Potassium [Moles/Vol] 4.3 mmol/L 3.5-5.1 [facility] Sodium [Moles/Vol] 141 mmol/L 136-145 [facility] WBC (Bld) [#/Vol] 8.8 10*3/uL 4.4-11.0 [facility] Blood erythrocytes count (nu mber/volume)Ordered By: Dr. Anderson on 12-23-2021 RBC (Bld) [#/Vol] 3.52 10*6/uL 4.2-5.4 [facility] Blood hemoglobin measurement (mass/volume)Ordered By: Dr. Anderson on 12-23-2021 Hemoglobin (Bld) [Mass/Vol] 11.0 g/dL 12.0-15.0 [facility] Blood lymphocytes/100 leukoc ytesOrdered By: Dr. Anderson on 12-23-2021 Lymphocytes/100 WBC (Bld) 25.7 % 19-41 [facility] Blood monocytes/100 leukocyt esOrdered By: Dr. Anderson on 12-23-2021 Monocytes/100 WBC (Bld) 5.9 % 0-10 [facility] Blood platelet mean volumeOr dered By: Dr. Anderson on 12-23-2021 Platelet mean volume (Bld) [Entitic vol] 10.3 fL 6.2-12.0 [facility] Determination of erythrocyte mean corpuscular volume (MCV)Ordered By: Dr. Anderson on 12-23-2021 MCV (RBC) [Entitic vol] 103.4 fL 81-99 [facility] Hematocrit Auto (Bld) [Volum e fraction]Ordered By: Dr. Anderson on 12-23-2021 Hematocrit (Bld) [Volume fraction] 36.4 % 37-47 [facility] Laboratory - Chemistry and C hemistry - challengeOrdered By: Dr. Anderson on 12-23-2021 CO2 [Moles/Vol] 30.0 mmol/L 21.0-32.0 [facility] Urea nitrogen/Creatinine [Mass ratio] 16.4 mg/mg 10-20 [facility] Laboratory - Hematology and Cell countsOrdered By: Dr. Anderson on 12-23-2021 Erythrocyte distribution width (RBC) [Entitic vol] 46.5 fL 35.1-43.9 [facility] Erythrocyte distribution width (RBC) [Ratio] 12.4 % 11.6-14.6 [facility] Immature granulocytes/100 WBC (Bld) 0.300 % 0.0-0.9 [facility] Comment on above: IG% - Immature Granu locytes (promyelocytes, myelocytes and metamyelocytes) > 1% indicates that a LEFT SHIFT is Present. MCH (RBC) [Entitic mass] 31.3 pg 27.0-32.0 [facility] Nucleated RBC/100 WBC (Bld) [Ratio] 0 % 0-5 [facility] MCHC Auto (RBC) [Mass/Vol]Or dered By: Dr. Anderson on 12-23-2021 MCHC (RBC) [Mass/Vol] 30.2 g/dL 32-36 [facility] No Panel InformationOrdered By: Dr. Anderson on 12-23-2021 Estimated GFR (MDRD) Amer 101 mL/min >60 [facility] Comment on above: GFR Calc Estimated GFR (MDRD) Non-Af Amer 84 mL/min >60 [facility] Comment on above: Non- GFR Calc Platelets bldOrdered By: Dr. Anderson on 12-23-2021 Platelets (Bld) [#/Vol] 321 10*3/uL 150-450 [facility] Serum or plasma calcium moriah urement (mass/volume)Ordered By: Dr. Anderson on 12-23-2021 Calcium [Mass/Vol] 8.6 mg/dL 8.5-10.1 [facility] Serum or plasma creatinine m easurement (mass/volume)Ordered By: Dr. Anderson on 12-23-2021 Creatinine [Mass/Vol] 0.73 mg/dL 0.55-1.02 [facility] Comment on above: The validity of the calculated GFR & GFRAA in patients over 70 years has not been determined. Clinical correlation is essential. Serum or plasma urea nitroge n measurement (mass/volume)Ordered By: Dr. Anderson on 12-23-2021 Urea nitrogen [Mass/Vol] 12 mg/dL 7-18 [facility] Thin prep Papanicolaou smear with manual screeningOrdered By: Dr. Anderson on 12-23-2021 Thin prep Papanicolaou smear with manual screening 3 - [facility] Absolute lymphocyte counton 12-16-2021 Lymphocytes Auto (Unsp spec) [#/Vol] 2.93 10*3/uL 0.83-4.51 [facility] Work Phone: Basophil percentageon 2021 Basophils/100 WBC (Bld) 0.9 % 0-1 [facility] Work Phone: Chloride [Moles/Vol] 106 mmol/L 98-107 [facility] Work Phone: Eosinophils/100 WBC (Bld) 11.4 % 0-5 [facility] Work Phone: Glucose [Mass/Vol] 84 mg/dL 74-106 [facility] Work Phone: Neutrophils (Bld) [#/Vol] 2.3 10*3/uL 2.0-7.7 [facility] Work Phone: Neutrophils/100 WBC (Bld) 34.0 % 47-70 [facility] Work Phone: Potassium [Moles/Vol] 3.6 mmol/L 3.5-5.1 [facility] Work Phone: Sodium [Moles/Vol] 143 mmol/L 136-145 [facility] Work Phone: WBC (Bld) [#/Vol] 6.6 10*3/uL 4.4-11.0 [facility] Work Phone: Blood erythrocytes count (nu mber/volume)on 12-16-2021 RBC (Bld) [#/Vol] 3.54 10*6/uL 4.2-5.4 [facility] Work Phone: Blood hemoglobin measurement (mass/volume)on 12-16-2021 Hemoglobin (Bld) [Mass/Vol] 11.4 g/dL 12.0-15.0 [facility] Work Phone: Blood lymphocytes/100 leukoc yteson 12-16-2021 Lymphocytes/100 WBC (Bld) 44.4 % 19-41 [facility] Work Phone: Blood monocytes/100 leukocyt eson 12-16-2021 Monocytes/100 WBC (Bld) 9.1 % 0-10 [facility] Work Phone: Blood platelet mean volumeon 12-16-2021 Platelet mean volume (Bld) [Entitic vol] 10.4 fL 6.2-12.0 [facility] Work Phone: Determination of erythrocyte mean corpuscular volume (MCV)on 12-16-2021 MCV (RBC) [Entitic vol] 103.1 fL 81-99 [facility] Work Phone: Hematocrit Auto (Bld) [Volum e fraction]on 12-16-2021 Hematocrit (Bld) [Volume fraction] 36.5 % 37-47 [facility] Work Phone: Laboratory - Chemistry and C hemistry - challengeon 12-16-2021 CO2 [Moles/Vol] 30.0 mmol/L 21.0-32.0 [facility] Work Phone: Urea nitrogen/Creatinine [Mass ratio] 14.7 mg/mg 10-20 [facility] Work Phone: Laboratory - Hematology and Cell countson 12-16-2021 Erythrocyte distribution width (RBC) [Entitic vol] 46.3 fL 35.1-43.9 [facility] Work Phone: Erythrocyte distribution width (RBC) [Ratio] 12.1 % 11.6-14.6 [facility] Work Phone: Immature granulocytes/100 WBC (Bld) 0.200 % 0.0-0.9 [facility] Work Phone: Comment on above: IG% - Immature Granu locytes (promyelocytes, myelocytes and metamyelocytes) > 1% indicates that a LEFT SHIFT is Present. MCH (RBC) [Entitic mass] 32.2 pg 27.0-32.0 [facility] Work Phone: Nucleated RBC/100 WBC (Bld) [Ratio] 0 % 0-5 [facility] Work Phone: MCHC Auto (RBC) [Mass/Vol]on 12-16-2021 MCHC (RBC) [Mass/Vol] 31.2 g/dL 32-36 [facility] Work Phone: No Panel Informationon 12-16 Estimated GFR (MDRD) Amer 110 mL/min >60 [facility] Work Phone: Comment on above: GFR Calc Estimated GFR (MDRD) Non-Af Amer 91 mL/min >60 [facility] Work Phone: Comment on above: Non- GFR Calc Platelets bldon 12-16-2021 Platelets (Bld) [#/Vol] 292 10*3/uL 150-450 [facility] Work Phone: Serum or plasma calcium moriah urement (mass/volume)on 12-16-2021 Calcium [Mass/Vol] 8.7 mg/dL 8.5-10.1 [facility] Work Phone: Serum or plasma creatinine m easurement (mass/volume)on 12-16-2021 Creatinine [Mass/Vol] 0.68 mg/dL 0.55-1.02 [facility] Work Phone: Comment on above: The validity of the calculated GFR & GFRAA in patients over 70 years has not been determined. Clinical correlation is essential. Serum or plasma urea nitroge n measurement (mass/volume)on 12-16-2021 Urea nitrogen [Mass/Vol] 10 mg/dL 7-18 [facility] Work Phone: Thin prep Papanicolaou smear with manual screeningon 12-16-2021 Thin prep Papanicolaou smear with manual screening 7 5-15 [facility] Work Phone: Absolute lymphocyte counton 12-09-2021 Lymphocytes Auto (Unsp spec) [#/Vol] 2.45 10*3/uL 0.83-4.51 [facility] Work Phone: Basophil percentageon 2021 Basophils/100 WBC (Bld) 1.4 % 0-1 [facility] Work Phone: Chloride [Moles/Vol] 108 mmol/L 98-107 [facility] Work Phone: Eosinophils/100 WBC (Bld) 9.7 % 0-5 [facility] Work Phone: Glucose [Mass/Vol] 73 mg/dL 74-106 [facility] Work Phone: Neutrophils (Bld) [#/Vol] 2.1 10*3/uL 2.0-7.7 [facility] Work Phone: Neutrophils/100 WBC (Bld) 36.8 % 47-70 [facility] Work Phone: Potassium [Moles/Vol] 3.7 mmol/L 3.5-5.1 [facility] Work Phone: Sodium [Moles/Vol] 143 mmol/L 136-145 [facility] Work Phone: WBC (Bld) [#/Vol] 5.8 10*3/uL 4.4-11.0 [facility] Work Phone: Blood erythrocytes count (nu mber/volume)on 12-09-2021 RBC (Bld) [#/Vol] 3.68 10*6/uL 4.2-5.4 [facility] Work Phone: Blood hemoglobin measurement (mass/volume)on 12-09-2021 Hemoglobin (Bld) [Mass/Vol] 11.8 g/dL 12.0-15.0 [facility] Work Phone: Blood lymphocytes/100 leukoc yteson 12-09-2021 Lymphocytes/100 WBC (Bld) 42.5 % 19-41 [facility] Work Phone: Blood monocytes/100 leukocyt eson 12-09-2021 Monocytes/100 WBC (Bld) 9.4 % 0-10 [facility] Work Phone: Blood platelet mean volumeon 12-09-2021 Platelet mean volume (Bld) [Entitic vol] 10.3 fL 6.2-12.0 [facility] Work Phone: Determination of erythrocyte mean corpuscular volume (MCV)on 12-09-2021 MCV (RBC) [Entitic vol] 103.8 fL 81-99 [facility] Work Phone: Hematocrit Auto (Bld) [Volum e fraction]on 12-09-2021 Hematocrit (Bld) [Volume fraction] 38.2 % 37-47 [facility] Work Phone: Laboratory - Chemistry and C hemistry - challengeon 12-09-2021 CO2 [Moles/Vol] 30.0 mmol/L 21.0-32.0 [facility] Work Phone: Urea nitrogen/Creatinine [Mass ratio] 7.4 mg/mg 10-20 [facility] Work Phone: Laboratory - Hematology and Cell countson 12-09-2021 Erythrocyte distribution width (RBC) [Entitic vol] 47.8 fL 35.1-43.9 [facility] Work Phone: Erythrocyte distribution width (RBC) [Ratio] 12.5 % 11.6-14.6 [facility] Work Phone: Immature granulocytes/100 WBC (Bld) 0.200 % 0.0-0.9 [facility] Work Phone: Comment on above: IG% - Immature Granu locytes (promyelocytes, myelocytes and metamyelocytes) > 1% indicates that a LEFT SHIFT is Present. MCH (RBC) [Entitic mass] 32.1 pg 27.0-32.0 [facility] Work Phone: Nucleated RBC/100 WBC (Bld) [Ratio] 0 % 0-5 [facility] Work Phone: MCHC Auto (RBC) [Mass/Vol]on 12-09-2021 MCHC (RBC) [Mass/Vol] 30.9 g/dL 32-36 [facility] Work Phone: No Panel Informationon 12-09 Estimated GFR (MDRD) Amer 90 mL/min >60 [facility] Work Phone: Comment on above: GFR Calc Estimated GFR (MDRD) Non-Af Amer 75 mL/min >60 [facility] Work Phone: Comment on above: Non- GFR Calc Platelets bldon 12-09-2021 Platelets (Bld) [#/Vol] 255 10*3/uL 150-450 [facility] Work Phone: Serum or plasma calcium moriah urement (mass/volume)on 12-09-2021 Calcium [Mass/Vol] 8.7 mg/dL 8.5-10.1 [facility] Work Phone: Serum or plasma creatinine m easurement (mass/volume)on 12-09-2021 Creatinine [Mass/Vol] 0.81 mg/dL 0.55-1.02 [facility] Work Phone: Comment on above: The validity of the calculated GFR & GFRAA in patients over 70 years has not been determined. Clinical correlation is essential. Serum or plasma urea nitroge n measurement (mass/volume)on 12-09-2021 Urea nitrogen [Mass/Vol] 6 mg/dL 7-18 [facility] Work Phone: Thin prep Papanicolaou smear with manual screeningon 12-09-2021 Thin prep Papanicolaou smear with manual screening 5 5-15 [facility] Work Phone: Absolute lymphocyte counton 12-02-2021 Lymphocytes Auto (Unsp spec) [#/Vol] 3.00 10*3/uL 0.83-4.51 [facility] Work Phone: Basophil percentageon 2021 Basophils/100 WBC (Bld) 1.0 % 0-1 [facility] Work Phone: Chloride [Moles/Vol] 108 mmol/L 98-107 [facility] Work Phone: Eosinophils/100 WBC (Bld) 8.7 % 0-5 [facility] Work Phone: Glucose [Mass/Vol] 76 mg/dL 74-106 [facility] Work Phone: Neutrophils (Bld) [#/Vol] 1.8 10*3/uL 2.0-7.7 [facility] Work Phone: Neutrophils/100 WBC (Bld) 30.4 % 47-70 [facility] Work Phone: Potassium [Moles/Vol] 3.9 mmol/L 3.5-5.1 [facility] Work Phone: Sodium [Moles/Vol] 142 mmol/L 136-145 [facility] Work Phone: WBC (Bld) [#/Vol] 6.0 10*3/uL 4.4-11.0 [facility] Work Phone: Blood erythrocytes count (nu mber/volume)on 12-02-2021 RBC (Bld) [#/Vol] 3.43 10*6/uL 4.2-5.4 [facility] Work Phone: Blood hemoglobin measurement (mass/volume)on 12-02-2021 Hemoglobin (Bld) [Mass/Vol] 11.1 g/dL 12.0-15.0 [facility] Work Phone: Blood lymphocytes/100 leukoc yteson 12-02-2021 Lymphocytes/100 WBC (Bld) 50.2 % 19-41 [facility] Work Phone: Blood monocytes/100 leukocyt eson 12-02-2021 Monocytes/100 WBC (Bld) 9.5 % 0-10 [facility] Work Phone: Blood platelet mean volumeon 12-02-2021 Platelet mean volume (Bld) [Entitic vol] 10.6 fL 6.2-12.0 [facility] Work Phone: Determination of erythrocyte mean corpuscular volume (MCV)on 12-02-2021 MCV (RBC) [Entitic vol] 103.8 fL 81-99 [facility] Work Phone: Hematocrit Auto (Bld) [Volum e fraction]on 12-02-2021 Hematocrit (Bld) [Volume fraction] 35.6 % 37-47 [facility] Work Phone: Laboratory - Chemistry and C hemistry - challengeon 12-02-2021 CO2 [Moles/Vol] 29.0 mmol/L 21.0-32.0 [facility] Work Phone: Urea nitrogen/Creatinine [Mass ratio] 8.5 mg/mg 10-20 [facility] Work Phone: Laboratory - Hematology and Cell countson 12-02-2021 Erythrocyte distribution width (RBC) [Entitic vol] 47.6 fL 35.1-43.9 [facility] Work Phone: Erythrocyte distribution width (RBC) [Ratio] 12.4 % 11.6-14.6 [facility] Work Phone: Immature granulocytes/100 WBC (Bld) 0.200 % 0.0-0.9 [facility] Work Phone: Comment on above: IG% - Immature Granu locytes (promyelocytes, myelocytes and metamyelocytes) > 1% indicates that a LEFT SHIFT is Present. MCH (RBC) [Entitic mass] 32.4 pg 27.0-32.0 [facility] Work Phone: Nucleated RBC/100 WBC (Bld) [Ratio] 0 % 0-5 [facility] Work Phone: MCHC Auto (RBC) [Mass/Vol]on 12-02-2021 MCHC (RBC) [Mass/Vol] 31.2 g/dL 32-36 [facility] Work Phone: No Panel Informationon 12-02 Estimated GFR (MDRD) Amer 105 mL/min >60 [facility] Work Phone: Comment on above: GFR Calc Estimated GFR (MDRD) Non-Af Amer 86 mL/min >60 [facility] Work Phone: Comment on above: Non- GFR Calc Platelets bldon 12-02-2021 Platelets (Bld) [#/Vol] 254 10*3/uL 150-450 [facility] Work Phone: Serum or plasma calcium moriah urement (mass/volume)on 12-02-2021 Calcium [Mass/Vol] 8.6 mg/dL 8.5-10.1 [facility] Work Phone: Serum or plasma creatinine m easurement (mass/volume)on 12-02-2021 Creatinine [Mass/Vol] 0.71 mg/dL 0.55-1.02 [facility] Work Phone: Comment on above: The validity of the calculated GFR & GFRAA in patients over 70 years has not been determined. Clinical correlation is essential. Serum or plasma urea nitroge n measurement (mass/volume)on 12-02-2021 Urea nitrogen [Mass/Vol] 6 mg/dL 7-18 [facility] Work Phone: Thin prep Papanicolaou smear with manual screeningon 12-02-2021 Thin prep Papanicolaou smear with manual screening 5 5-15 [facility] Work Phone: Absolute lymphocyte counton 11-25-2021 Lymphocytes Auto (Unsp spec) [#/Vol] 2.70 10*3/uL 0.83-4.51 [facility] Work Phone: Basophil percentageon 2021 Basophils/100 WBC (Bld) 1.1 % 0-1 [facility] Work Phone: Chloride [Moles/Vol] 107 mmol/L 98-107 [facility] Work Phone: Eosinophils/100 WBC (Bld) 8.6 % 0-5 [facility] Work Phone: Glucose [Mass/Vol] 77 mg/dL 74-106 [facility] Work Phone: Neutrophils (Bld) [#/Vol] 1.6 10*3/uL 2.0-7.7 [facility] Work Phone: Neutrophils/100 WBC (Bld) 29.4 % 47-70 [facility] Work Phone: Potassium [Moles/Vol] 3.7 mmol/L 3.5-5.1 [facility] Work Phone: Sodium [Moles/Vol] 142 mmol/L 136-145 [facility] Work Phone: WBC (Bld) [#/Vol] 5.4 10*3/uL 4.4-11.0 [facility] Work Phone: Blood erythrocytes count (nu mber/volume)on 11-25-2021 RBC (Bld) [#/Vol] 3.46 10*6/uL 4.2-5.4 [facility] Work Phone: Blood hemoglobin measurement (mass/volume)on 11-25-2021 Hemoglobin (Bld) [Mass/Vol] 11.3 g/dL 12.0-15.0 [facility] Work Phone: Blood lymphocytes/100 leukoc yteson 11-25-2021 Lymphocytes/100 WBC (Bld) 50.3 % 19-41 [facility] Work Phone: Blood monocytes/100 leukocyt eson 11-25-2021 Monocytes/100 WBC (Bld) 10.4 % 0-10 [facility] Work Phone: Blood platelet mean volumeon 11-25-2021 Platelet mean volume (Bld) [Entitic vol] 10.4 fL 6.2-12.0 [facility] Work Phone: Determination of erythrocyte mean corpuscular volume (MCV)on 11-25-2021 MCV (RBC) [Entitic vol] 102.9 fL 81-99 [facility] Work Phone: Hematocrit Auto (Bld) [Volum e fraction]on 11-25-2021 Hematocrit (Bld) [Volume fraction] 35.6 % 37-47 [facility] Work Phone: Laboratory - Chemistry and C hemistry - challengeon 11-25-2021 CO2 [Moles/Vol] 29.0 mmol/L 21.0-32.0 [facility] Work Phone: Urea nitrogen/Creatinine [Mass ratio] 8.9 mg/mg 10-20 [facility] Work Phone: Laboratory - Hematology and Cell countson 11-25-2021 Erythrocyte distribution width (RBC) [Entitic vol] 47.5 fL 35.1-43.9 [facility] Work Phone: Erythrocyte distribution width (RBC) [Ratio] 12.7 % 11.6-14.6 [facility] Work Phone: Immature granulocytes/100 WBC (Bld) 0.200 % 0.0-0.9 [facility] Work Phone: Comment on above: IG% - Immature Granu locytes (promyelocytes, myelocytes and metamyelocytes) > 1% indicates that a LEFT SHIFT is Present. MCH (RBC) [Entitic mass] 32.7 pg 27.0-32.0 [facility] Work Phone: Nucleated RBC/100 WBC (Bld) [Ratio] 0 % 0-5 [facility] Work Phone: MCHC Auto (RBC) [Mass/Vol]on 11-25-2021 MCHC (RBC) [Mass/Vol] 31.7 g/dL 32-36 [facility] Work Phone: No Panel Informationon 11-25 Estimated GFR (MDRD) Amer 111 mL/min >60 [facility] Work Phone: Comment on above: GFR Calc Estimated GFR (MDRD) Non-Af Amer 92 mL/min >60 [facility] Work Phone: Comment on above: Non- GFR Calc Platelets bldon 11-25-2021 Platelets (Bld) [#/Vol] 278 10*3/uL 150-450 [facility] Work Phone: Serum or plasma calcium moriah urement (mass/volume)on 11-25-2021 Calcium [Mass/Vol] 8.8 mg/dL 8.5-10.1 [facility] Work Phone: Serum or plasma creatinine m easurement (mass/volume)on 11-25-2021 Creatinine [Mass/Vol] 0.67 mg/dL 0.55-1.02 [facility] Work Phone: Comment on above: The validity of the calculated GFR & GFRAA in patients over 70 years has not been determined. Clinical correlation is essential. Serum or plasma urea nitroge n measurement (mass/volume)on 11-25-2021 Urea nitrogen [Mass/Vol] 6 mg/dL 7-18 [facility] Work Phone: Thin prep Papanicolaou smear with manual screeningon 11-25-2021 Thin prep Papanicolaou smear with manual screening 6 5-15 [facility] Work Phone: Absolute lymphocyte counton 11-18-2021 Lymphocytes Auto (Unsp spec) [#/Vol] 2.55 10*3/uL 0.83-4.51 [facility] Work Phone: Basophil percentageon 2021 Basophils/100 WBC (Bld) 1.0 % 0-1 [facility] Work Phone: Chloride [Moles/Vol] 108 mmol/L 98-107 [facility] Work Phone: Eosinophils/100 WBC (Bld) 6.6 % 0-5 [facility] Work Phone: Glucose [Mass/Vol] 75 mg/dL 74-106 [facility] Work Phone: Neutrophils (Bld) [#/Vol] 2.3 10*3/uL 2.0-7.7 [facility] Work Phone: Neutrophils/100 WBC (Bld) 38.2 % 47-70 [facility] Work Phone: Potassium [Moles/Vol] 3.6 mmol/L 3.5-5.1 [facility] Work Phone: Sodium [Moles/Vol] 142 mmol/L 136-145 [facility] Work Phone: WBC (Bld) [#/Vol] 5.9 10*3/uL 4.4-11.0 [facility] Work Phone: Blood erythrocytes count (nu mber/volume)on 11-18-2021 RBC (Bld) [#/Vol] 3.32 10*6/uL 4.2-5.4 [facility] Work Phone: Blood hemoglobin measurement (mass/volume)on 11-18-2021 Hemoglobin (Bld) [Mass/Vol] 10.9 g/dL 12.0-15.0 [facility] Work Phone: Blood lymphocytes/100 leukoc yteson 11-18-2021 Lymphocytes/100 WBC (Bld) 43.2 % 19-41 [facility] Work Phone: Blood monocytes/100 leukocyt eson 11-18-2021 Monocytes/100 WBC (Bld) 10.8 % 0-10 [facility] Work Phone: Blood platelet mean volumeon 11-18-2021 Platelet mean volume (Bld) [Entitic vol] 10.1 fL 6.2-12.0 [facility] Work Phone: Determination of erythrocyte mean corpuscular volume (MCV)on 11-18-2021 MCV (RBC) [Entitic vol] 103.3 fL 81-99 [facility] Work Phone: Hematocrit Auto (Bld) [Volum e fraction]on 11-18-2021 Hematocrit (Bld) [Volume fraction] 34.3 % 37-47 [facility] Work Phone: Laboratory - Chemistry and C hemistry - challengeon 11-18-2021 CO2 [Moles/Vol] 32.0 mmol/L 21.0-32.0 [facility] Work Phone: Urea nitrogen/Creatinine [Mass ratio] 10.9 mg/mg 10-20 [facility] Work Phone: Laboratory - Hematology and Cell countson 11-18-2021 Erythrocyte distribution width (RBC) [Entitic vol] 49.1 fL 35.1-43.9 [facility] Work Phone: Erythrocyte distribution width (RBC) [Ratio] 13.0 % 11.6-14.6 [facility] Work Phone: Immature granulocytes/100 WBC (Bld) 0.200 % 0.0-0.9 [facility] Work Phone: Comment on above: IG% - Immature Granu locytes (promyelocytes, myelocytes and metamyelocytes) > 1% indicates that a LEFT SHIFT is Present. MCH (RBC) [Entitic mass] 32.8 pg 27.0-32.0 [facility] Work Phone: Nucleated RBC/100 WBC (Bld) [Ratio] 0 % 0-5 [facility] Work Phone: MCHC Auto (RBC) [Mass/Vol]on 11-18-2021 MCHC (RBC) [Mass/Vol] 31.8 g/dL 32-36 [facility] Work Phone: No Panel Informationon 11-18 Estimated GFR (MDRD) Amer 117 mL/min >60 [facility] Work Phone: Comment on above: GFR Calc Estimated GFR (MDRD) Non-Af Amer 97 mL/min >60 [facility] Work Phone: Comment on above: Non- GFR Calc Platelets bldon 11-18-2021 Platelets (Bld) [#/Vol] 281 10*3/uL 150-450 [facility] Work Phone: Serum or plasma calcium moriah urement (mass/volume)on 11-18-2021 Calcium [Mass/Vol] 8.6 mg/dL 8.5-10.1 [facility] Work Phone: Serum or plasma creatinine m easurement (mass/volume)on 11-18-2021 Creatinine [Mass/Vol] 0.64 mg/dL 0.55-1.02 [facility] Work Phone: Comment on above: The validity of the calculated GFR & GFRAA in patients over 70 years has not been determined. Clinical correlation is essential. Serum or plasma urea nitroge n measurement (mass/volume)on 11-18-2021 Urea nitrogen [Mass/Vol] 7 mg/dL 7-18 [facility] Work Phone: Thin prep Papanicolaou smear with manual screeningon 11-18-2021 Thin prep Papanicolaou smear with manual screening 2 5-15 [facility] Work Phone: Absolute lymphocyte counton 11-11-2021 Lymphocytes Auto (Unsp spec) [#/Vol] 2.30 10*3/uL 0.83-4.51 [facility] Work Phone: Basophil percentageon 2021 Basophils/100 WBC (Bld) 1.0 % 0-1 [facility] Work Phone: Chloride [Moles/Vol] 106 mmol/L 98-107 [facility] Work Phone: Eosinophils/100 WBC (Bld) 8.8 % 0-5 [facility] Work Phone: Glucose [Mass/Vol] 83 mg/dL 74-106 [facility] Work Phone: Neutrophils (Bld) [#/Vol] 2.5 10*3/uL 2.0-7.7 [facility] Work Phone: Neutrophils/100 WBC (Bld) 41.1 % 47-70 [facility] Work Phone: Potassium [Moles/Vol] 4.0 mmol/L 3.5-5.1 [facility] Work Phone: Sodium [Moles/Vol] 141 mmol/L 136-145 [facility] Work Phone: WBC (Bld) [#/Vol] 6.2 10*3/uL 4.4-11.0 [facility] Work Phone: Blood erythrocytes count (nu mber/volume)on 11-11-2021 RBC (Bld) [#/Vol] 3.46 10*6/uL 4.2-5.4 [facility] Work Phone: Blood hemoglobin measurement (mass/volume)on 11-11-2021 Hemoglobin (Bld) [Mass/Vol] 11.4 g/dL 12.0-15.0 [facility] Work Phone: Blood lymphocytes/100 leukoc yteson 11-11-2021 Lymphocytes/100 WBC (Bld) 37.4 % 19-41 [facility] Work Phone: Blood monocytes/100 leukocyt eson 11-11-2021 Monocytes/100 WBC (Bld) 11.4 % 0-10 [facility] Work Phone: Blood platelet mean volumeon 11-11-2021 Platelet mean volume (Bld) [Entitic vol] 10.1 fL 6.2-12.0 [facility] Work Phone: Determination of erythrocyte mean corpuscular volume (MCV)on 11-11-2021 MCV (RBC) [Entitic vol] 102.0 fL 81-99 [facility] Work Phone: Hematocrit Auto (Bld) [Volum e fraction]on 11-11-2021 Hematocrit (Bld) [Volume fraction] 35.3 % 37-47 [facility] Work Phone: Laboratory - Chemistry and C hemistry - challengeon 11-11-2021 CO2 [Moles/Vol] 31.0 mmol/L 21.0-32.0 [facility] Work Phone: Urea nitrogen/Creatinine [Mass ratio] 5.0 mg/mg 10-20 [facility] Work Phone: Laboratory - Hematology and Cell countson 11-11-2021 Erythrocyte distribution width (RBC) [Entitic vol] 50.2 fL 35.1-43.9 [facility] Work Phone: Erythrocyte distribution width (RBC) [Ratio] 13.3 % 11.6-14.6 [facility] Work Phone: Immature granulocytes/100 WBC (Bld) 0.300 % 0.0-0.9 [facility] Work Phone: Comment on above: IG% - Immature Granu locytes (promyelocytes, myelocytes and metamyelocytes) > 1% indicates that a LEFT SHIFT is Present. MCH (RBC) [Entitic mass] 32.9 pg 27.0-32.0 [facility] Work Phone: Nucleated RBC/100 WBC (Bld) [Ratio] 0 % 0-5 [facility] Work Phone: MCHC Auto (RBC) [Mass/Vol]on 11-11-2021 MCHC (RBC) [Mass/Vol] 32.3 g/dL 32-36 [facility] Work Phone: No Panel Informationon 11-11 Estimated GFR (MDRD) Amer 91 mL/min >60 [facility] Work Phone: Comment on above: GFR Calc Estimated GFR (MDRD) Non-Af Amer 75 mL/min >60 [facility] Work Phone: Comment on above: Non- GFR Calc Platelets bldon 11-11-2021 Platelets (Bld) [#/Vol] 265 10*3/uL 150-450 [facility] Work Phone: Serum or plasma calcium moriah urement (mass/volume)on 11-11-2021 Calcium [Mass/Vol] 8.7 mg/dL 8.5-10.1 [facility] Work Phone: Serum or plasma creatinine m easurement (mass/volume)on 11-11-2021 Creatinine [Mass/Vol] 0.80 mg/dL 0.55-1.02 [facility] Work Phone: Comment on above: The validity of the calculated GFR & GFRAA in patients over 70 years has not been determined. Clinical correlation is essential. Serum or plasma urea nitroge n measurement (mass/volume)on 11-11-2021 Urea nitrogen [Mass/Vol] 4 mg/dL 7-18 [facility] Work Phone: Thin prep Papanicolaou smear with manual screeningon 11-11-2021 Thin prep Papanicolaou smear with manual screening 4 5-15 [facility] Work Phone: Absolute lymphocyte counton 11-04-2021 Lymphocytes Auto (Unsp spec) [#/Vol] 2.09 10*3/uL 0.83-4.51 [facility] Work Phone: Basophil percentageon 2021 Basophils/100 WBC (Bld) 0.8 % 0-1 [facility] Work Phone: Chloride [Moles/Vol] 106 mmol/L 98-107 [facility] Work Phone: Eosinophils/100 WBC (Bld) 9.1 % 0-5 [facility] Work Phone: Glucose [Mass/Vol] 123 mg/dL 74-106 [facility] Work Phone: Comment on above: Fasting Glucose resu lt from 100 to 125 mg/dL suggests IMPAIRED HOMEOSTASIS per A.D.A. criteria. Neutrophils (Bld) [#/Vol] 4.1 10*3/uL 2.0-7.7 [facility] Work Phone: Neutrophils/100 WBC (Bld) 55.0 % 47-70 [facility] Work Phone: Potassium [Moles/Vol] 3.9 mmol/L 3.5-5.1 [facility] Work Phone: Sodium [Moles/Vol] 142 mmol/L 136-145 [facility] Work [facility]: WBC (Bld) [#/Vol] 7.5 10*3/uL 4.4-11.0 [facility] Work Phone: Blood erythrocytes count (nu mber/volume)on 11-04-2021 RBC (Bld) [#/Vol] 3.57 10*6/uL 4.2-5.4 [facility]: Blood hemoglobin measurement (mass/volume)on 11-04-2021 Hemoglobin (Bld) [Mass/Vol] 11.7 g/dL 12.0-15.0 [facility] Work Phone: Blood lymphocytes/100 leukoc yteson 11-04-2021 Lymphocytes/100 WBC (Bld) 28.0 % 19-41 [facility] Work Phone: Blood monocytes/100 leukocyt eson 11-04-2021 Monocytes/100 WBC (Bld) 6.8 % 0-10 [facility] Work Phone: Blood platelet mean volumeon 11-04-2021 Platelet mean volume (Bld) [Entitic vol] 10.1 fL 6.2-12.0 [facility] Work Phone: Determination of erythrocyte mean corpuscular volume (MCV)on 11-04-2021 MCV (RBC) [Entitic vol] 104.8 fL 81-99 [facility] Work Phone: Hematocrit Auto (Bld) [Volum e fraction]on 11-04-2021 Hematocrit (Bld) [Volume fraction] 37.4 % 37-47 [facility] Work Phone: Laboratory - Chemistry and C hemistry - challengeon 11-04-2021 CO2 [Moles/Vol] 29.0 mmol/L 21.0-32.0 [facility] Work Phone: Urea nitrogen/Creatinine [Mass ratio] 13.3 mg/mg 10-20 [facility] Work Phone: Laboratory - Hematology and Cell countson 11-04-2021 Erythrocyte distribution width (RBC) [Entitic vol] 52.9 fL 35.1-43.9 [facility] Work Phone: Erythrocyte distribution width (RBC) [Ratio] 13.6 % 11.6-14.6 [facility] Work Phone: Immature granulocytes/100 WBC (Bld) 0.300 % 0.0-0.9 [facility] Work Phone: Comment on above: IG% - Immature Granu locytes (promyelocytes, myelocytes and metamyelocytes) > 1% indicates that a LEFT SHIFT is Present. MCH (RBC) [Entitic mass] 32.8 pg 27.0-32.0 [facility] Work Phone: Nucleated RBC/100 WBC (Bld) [Ratio] 0 % 0-5 [facility] Work Phone: MCHC Auto (RBC) [Mass/Vol]on 11-04-2021 MCHC (RBC) [Mass/Vol] 31.3 g/dL 32-36 [facility] Work Phone: No Panel Informationon 11-04 Estimated GFR (MDRD) Amer 110 mL/min >60 [facility] Work Phone: Comment on above: GFR Calc Estimated GFR (MDRD) Non-Af Amer 91 mL/min >60 [facility] Work Phone: Comment on above: Non- GFR Calc Platelets bldon 11-04-2021 Platelets (Bld) [#/Vol] 294 10*3/uL 150-450 [facility] Work Phone: Serum or plasma calcium moriah urement (mass/volume)on 11-04-2021 Calcium [Mass/Vol] 8.7 mg/dL 8.5-10.1 [facility] Work Phone: Serum or plasma creatinine m easurement (mass/volume)on 11-04-2021 Creatinine [Mass/Vol] 0.68 mg/dL 0.55-1.02 [facility] Work Phone: Comment on above: The validity of the calculated GFR & GFRAA in patients over 70 years has not been determined. Clinical correlation is essential. Serum or plasma urea nitroge n measurement (mass/volume)on 11-04-2021 Urea nitrogen [Mass/Vol] 9 mg/dL 7-18 [facility] Work Phone: Thin prep Papanicolaou smear with manual screeningon 11-04-2021 Thin prep Papanicolaou smear with manual screening 7 5-15 [facility] Work Phone: Absolute lymphocyte counton 10-28-2021 Lymphocytes Auto (Unsp spec) [#/Vol] 2.54 10*3/uL 0.83-4.51 [facility] Work Phone: Basophil percentageon 2021 Basophils/100 WBC (Bld) 0.7 % 0-1 [facility] Work Phone: Chloride [Moles/Vol] 106 mmol/L 98-107 [facility] Work Phone: Eosinophils/100 WBC (Bld) 6.6 % 0-5 [facility] Work Phone: Glucose [Mass/Vol] 82 mg/dL 74-106 [facility] Work Phone: Neutrophils (Bld) [#/Vol] 3.1 10*3/uL 2.0-7.7 [facility] Work Phone: Neutrophils/100 WBC (Bld) 44.3 % 47-70 [facility] Work Phone: Potassium [Moles/Vol] 4.3 mmol/L 3.5-5.1 [facility] Work Phone: Sodium [Moles/Vol] 141 mmol/L 136-145 [facility] Work Phone: WBC (Bld) [#/Vol] 6.9 10*3/uL 4.4-11.0 [facility] Work Phone: Blood erythrocytes count (nu mber/volume)on 10-28-2021 RBC (Bld) [#/Vol] 3.52 10*6/uL 4.2-5.4 [facility] Work Phone: Blood hemoglobin measurement (mass/volume)on 10-28-2021 Hemoglobin (Bld) [Mass/Vol] 11.4 g/dL 12.0-15.0 [facility] Work Phone: Blood lymphocytes/100 leukoc yteson 10-28-2021 Lymphocytes/100 WBC (Bld) 36.7 % 19-41 [facility] Work Phone: Blood monocytes/100 leukocyt eson 10-28-2021 Monocytes/100 WBC (Bld) 11.3 % 0-10 [facility] Work Phone: Blood platelet mean volumeon 10-28-2021 Platelet mean volume (Bld) [Entitic vol] 10.1 fL 6.2-12.0 [facility] Work Phone: Determination of erythrocyte mean corpuscular volume (MCV)on 10-28-2021 MCV (RBC) [Entitic vol] 105.7 fL 81-99 [facility] Work Phone: Hematocrit Auto (Bld) [Volum e fraction]on 10-28-2021 Hematocrit (Bld) [Volume fraction] 37.2 % 37-47 [facility] Work Phone: Laboratory - Chemistry and C hemistry - challengeon 10-28-2021 CO2 [Moles/Vol] 30.0 mmol/L 21.0-32.0 [facility] Work Phone: Urea nitrogen/Creatinine [Mass ratio] 15.8 mg/mg 10-20 [facility] Work Phone: Laboratory - Hematology and Cell countson 10-28-2021 Erythrocyte distribution width (RBC) [Entitic vol] 51.7 fL 35.1-43.9 [facility] Work Phone: Erythrocyte distribution width (RBC) [Ratio] 13.6 % 11.6-14.6 [facility] Work Phone: Immature granulocytes/100 WBC (Bld) 0.400 % 0.0-0.9 [facility] Work Phone: Comment on above: IG% - Immature Granu locytes (promyelocytes, myelocytes and metamyelocytes) > 1% indicates that a LEFT SHIFT is Present. MCH (RBC) [Entitic mass] 32.4 pg 27.0-32.0 [facility] Work Phone: Nucleated RBC/100 WBC (Bld) [Ratio] 0 % 0-5 [facility] Work Phone: MCHC Auto (RBC) [Mass/Vol]on 10-28-2021 MCHC (RBC) [Mass/Vol] 30.6 g/dL 32-36 [facility] Work Phone: No Panel Informationon 10-28 Estimated GFR (MDRD) Amer 107 mL/min >60 [facility] Work Phone: Comment on above: GFR Calc Estimated GFR (MDRD) Non-Af Amer 88 mL/min >60 [facility] Work Phone: Comment on above: Non- GFR Calc Vitamin D 25-Hydroxy 40.3 ng/mL [facility] Work Phone: Comment on above: Vitamin D 25(OH) Sta tus Range Deficiency <20 ng/mL (50nmol/L) Insufficiency 20 - 30 ng/mL (50 - 75 nmol/L) Sufficiency 30 - 100 ng/mL (75 - 250 nmol/L) Toxicity >100 ng/mL (>250 nmol/L) Platelets bldon 10-28-2021 Platelets (Bld) [#/Vol] 307 10*3/uL 150-450 [facility] Work Phone: Serum or plasma calcium moriah urement (mass/volume)on 10-28-2021 Calcium [Mass/Vol] 8.7 mg/dL 8.5-10.1 [facility] Work Phone: Serum or plasma creatinine m easurement (mass/volume)on 10-28-2021 Creatinine [Mass/Vol] 0.70 mg/dL 0.55-1.02 [facility] Work Phone: Comment on above: The validity of the calculated GFR & GFRAA in patients over 70 years has not been determined. Clinical correlation is essential. Serum or plasma urea nitroge n measurement (mass/volume)on 10-28-2021 Urea nitrogen [Mass/Vol] 11 mg/dL 7-18 [facility] Work Phone: Thin prep Papanicolaou smear with manual screeningon 10-28-2021 Thin prep Papanicolaou smear with manual screening 5 5-15 [facility] Work Phone: Absolute lymphocyte counton 10-21-2021 Lymphocytes Auto (Unsp spec) [#/Vol] 3.09 10*3/uL 0.83-4.51 [facility] Work Phone: Basophil percentageon 2021 Basophils/100 WBC (Bld) 0.6 % 0-1 [facility] Work Phone: Chloride [Moles/Vol] 110 mmol/L 98-107 [facility] Work Phone: Eosinophils/100 WBC (Bld) 3.2 % 0-5 [facility] Work Phone: Glucose [Mass/Vol] 78 mg/dL 74-106 [facility] Work Phone: Neutrophils (Bld) [#/Vol] 3.7 10*3/uL 2.0-7.7 [facility] Work Phone: Neutrophils/100 WBC (Bld) 47.3 % 47-70 [facility] Work Phone: Potassium [Moles/Vol] 4.0 mmol/L 3.5-5.1 [facility] Work Phone: Sodium [Moles/Vol] 141 mmol/L 136-145 [facility] Work Phone: WBC (Bld) [#/Vol] 7.9 10*3/uL 4.4-11.0 [facility] Work Phone: Blood erythrocytes count (nu mber/volume)on 10-21-2021 RBC (Bld) [#/Vol] 3.45 10*6/uL 4.2-5.4 [facility] Work Phone: Blood hemoglobin measurement (mass/volume)on 10-21-2021 Hemoglobin (Bld) [Mass/Vol] 11.3 g/dL 12.0-15.0 [facility] Work Phone: Blood lymphocytes/100 leukoc yteson 10-21-2021 Lymphocytes/100 WBC (Bld) 39.3 % 19-41 [facility] Work Phone: Blood monocytes/100 leukocyt eson 10-21-2021 Monocytes/100 WBC (Bld) 9.0 % 0-10 [facility] Work Phone: Blood platelet mean volumeon 10-21-2021 Platelet mean volume (Bld) [Entitic vol] 9.9 fL 6.2-12.0 [facility] Work Phone: Determination of erythrocyte mean corpuscular volume (MCV)on 10-21-2021 MCV (RBC) [Entitic vol] 105.8 fL 81-99 [facility] Work Phone: Hematocrit Auto (Bld) [Volum e fraction]on 10-21-2021 Hematocrit (Bld) [Volume fraction] 36.5 % 37-47 [facility] Work Phone: Laboratory - Chemistry and C hemistry - challengeon 10-21-2021 CO2 [Moles/Vol] 29.0 mmol/L 21.0-32.0 [facility] Work Phone: Urea nitrogen/Creatinine [Mass ratio] 15.5 mg/mg 10-20 [facility] Work Phone: Laboratory - Hematology and Cell countson 10-21-2021 Erythrocyte distribution width (RBC) [Entitic vol] 50.2 fL 35.1-43.9 [facility] Work Phone: Erythrocyte distribution width (RBC) [Ratio] 13.1 % 11.6-14.6 [facility] Work Phone: Immature granulocytes/100 WBC (Bld) 0.600 % 0.0-0.9 [facility] Work Phone: Comment on above: IG% - Immature Granu locytes (promyelocytes, myelocytes and metamyelocytes) > 1% indicates that a LEFT SHIFT is Present. MCH (RBC) [Entitic mass] 32.8 pg 27.0-32.0 [facility] Work Phone: Nucleated RBC/100 WBC (Bld) [Ratio] 0 % 0-5 [facility] Work Phone: MCHC Auto (RBC) [Mass/Vol]on 10-21-2021 MCHC (RBC) [Mass/Vol] 31.0 g/dL 32-36 [facility] Work Phone: No Panel Informationon 10-21 Estimated GFR (MDRD) Amer 105 mL/min >60 [facility] Work Phone: Comment on above: GFR Calc Estimated GFR (MDRD) Non-Af Amer 87 mL/min >60 [facility] Work Phone: Comment on above: Non- GFR Calc Platelets bldon 10-21-2021 Platelets (Bld) [#/Vol] 314 10*3/uL 150-450 [facility] Work Phone: Serum or plasma calcium moriah urement (mass/volume)on 10-21-2021 Calcium [Mass/Vol] 8.5 mg/dL 8.5-10.1 [facility] Work Phone: Serum or plasma creatinine m easurement (mass/volume)on 10-21-2021 Creatinine [Mass/Vol] 0.71 mg/dL 0.55-1.02 [facility] Work Phone: Comment on above: The validity of the calculated GFR & GFRAA in patients over 70 years has not been determined. Clinical correlation is essential. Serum or plasma urea nitroge n measurement (mass/volume)on 10-21-2021 Urea nitrogen [Mass/Vol] 11 mg/dL 7-18 [facility] Work Phone: Thin prep Papanicolaou smear with manual screeningon 10-21-2021 Thin prep Papanicolaou smear with manual screening 2 5-15 [facility] Work Phone: Laboratory - Chemistry and C hemistry - challengeon 10-19-2021 Cobalamin (Vitamin B12) [Mass/Vol] 1620 pg/mL 211-911 [facility] Work Phone: No Panel Informationon 10-19 Thyroid Stimulating Hormone (TSH) 2.06 uIU/mL 0.358-3.74 [facility] Work Phone: Serum or plasma lamotrigine measurement (mass/volume)on 10-19-2021 lamoTRIgine [Mass/Vol] 3.2 ug/mL 2.0-20.0 [facility] Work Phone: Comment on above: Detection Limit = 1. 0Performed at: - [address] [id number] Director: Marino Mckeon MD, Phone: [phone] Whole blood hemoglobin A1c/t otal hemoglobin ratio (mass fraction)on 10-19-2021 HbA1c (Bld) [Mass fraction] 4.7 % 3.8-5.6 [facility] Work Phone: Comment on above: Normal < 5.7 % Predi abetic 5.7 - 6.4 % Diabetic >or= 6.5 % Please note range changes. Absolute lymphocyte counton 10-14-2021 Lymphocytes Auto (Unsp spec) [#/Vol] 2.95 10*3/uL 0.83-4.51 [facility] Work Phone: Basophil percentageon 2021 Basophils/100 WBC (Bld) 0.6 % 0-1 [facility] Work Phone: Chloride [Moles/Vol] 104 mmol/L 98-107 [facility] Work Phone: Eosinophils/100 WBC (Bld) 3.8 % 0-5 [facility] Work Phone: Glucose [Mass/Vol] 75 mg/dL 74-106 [facility] Work Phone: Neutrophils (Bld) [#/Vol] 3.1 10*3/uL 2.0-7.7 [facility] Work Phone: Neutrophils/100 WBC (Bld) 44.6 % 47-70 [facility] Work Phone: Potassium [Moles/Vol] 3.8 mmol/L 3.5-5.1 [facility] Work Phone: Comment on above: Slight Hemolysis, Re sult may be falsely increased. Sodium [Moles/Vol] 139 mmol/L 136-145 [facility] Work Phone: WBC (Bld) [#/Vol] 7.1 10*3/uL 4.4-11.0 [facility] Work Phone: Blood erythrocytes count (nu mber/volume)on 10-14-2021 RBC (Bld) [#/Vol] 3.73 10*6/uL 4.2-5.4 [facility] Work Phone: Blood hemoglobin measurement (mass/volume)on 10-14-2021 Hemoglobin (Bld) [Mass/Vol] 12.3 g/dL 12.0-15.0 [facility] Work Phone: Blood lymphocytes/100 leukoc yteson 10-14-2021 Lymphocytes/100 WBC (Bld) 41.8 % 19-41 [facility] Work Phone: Blood monocytes/100 leukocyt eson 10-14-2021 Monocytes/100 WBC (Bld) 8.8 % 0-10 [facility] Work Phone: Blood platelet adequacy dete ction by light microscopyon 10-14-2021 Platelets LM Ql (Bld) ADEQUATE ADEQ [facility] Work Phone: Blood platelet mean volumeon 10-14-2021 Platelet mean volume (Bld) [Entitic vol] 11.0 fL 6.2-12.0 [facility] Work Phone: Determination of erythrocyte mean corpuscular volume (MCV)on 10-14-2021 MCV (RBC) [Entitic vol] 104.3 fL 81-99 [facility] Work Phone: Hematocrit Auto (Bld) [Volum e fraction]on 10-14-2021 Hematocrit (Bld) [Volume fraction] 38.9 % 37-47 [facility] Work Phone: Laboratory - Chemistry and C hemistry - challengeon 10-14-2021 CO2 [Moles/Vol] 33.0 mmol/L 21.0-32.0 [facility] Work Phone: Urea nitrogen/Creatinine [Mass ratio] 9.0 mg/mg 10-20 [facility] Work Phone: Laboratory - Hematology and Cell countson 10-14-2021 Erythrocyte distribution width (RBC) [Entitic vol] 48.7 fL 35.1-43.9 [facility] Work Phone: Erythrocyte distribution width (RBC) [Ratio] 12.8 % 11.6-14.6 [facility] Work Phone: Immature granulocytes/100 WBC (Bld) 0.400 % 0.0-0.9 [facility] Work Phone: Comment on above: IG% - Immature Granu locytes (promyelocytes, myelocytes and metamyelocytes) > 1% indicates that a LEFT SHIFT is Present. MCH (RBC) [Entitic mass] 33.0 pg 27.0-32.0 [facility] Work Phone: Nucleated RBC/100 WBC (Bld) [Ratio] 0 % 0-5 [facility] Work Phone: MCHC Auto (RBC) [Mass/Vol]on 10-14-2021 MCHC (RBC) [Mass/Vol] 31.6 g/dL 32-36 [facility] Work Phone: No Panel Informationon 10-14 Estimated GFR (MDRD) Amer 113 mL/min >60 [facility] Work Phone: Comment on above: GFR Calc Estimated GFR (MDRD) Non-Af Amer 93 mL/min >60 [facility] Work Phone: Comment on above: Non- GFR Calc Platelets bldon 10-14-2021 Platelets (Bld) [#/Vol] See comment 150-450 [facility] Work Phone: Comment on above: Please note: [...] Calcium [Mass/Vol] 9.1 mg/dL 8.5-10.1 [facility] Work Phone: Serum or plasma creatinine m easurement (mass/volume)on 10-14-2021 Creatinine [Mass/Vol] 0.66 mg/dL 0.55-1.02 [facility] Work Phone: Comment on above: The validity of the calculated GFR & GFRAA in patients over 70 years has not been determined. Clinical correlation is essential. Serum or plasma urea nitroge n measurement (mass/volume)on 10-14-2021 Urea nitrogen [Mass/Vol] 6 mg/dL 7-18 [facility] Work Phone: Thin prep Papanicolaou smear with manual screeningon 10-14-2021 Thin prep Papanicolaou smear with manual screening 2 5-15 [facility] Work Phone: Absolute lymphocyte counton 10-07-2021 Lymphocytes Auto (Unsp spec) [#/Vol] 1.85 10*3/uL 0.83-4.51 [facility] Work Phone: Basophil percentageon 2021 Basophil percentage 0 SEEN /hpf 0-5 [facility] Work Phone: Basophils/100 WBC (Bld) 0.4 % 0-1 [facility] Work Phone: Chloride [Moles/Vol] 104 mmol/L 98-107 [facility] Work Phone: Eosinophils/100 WBC (Bld) 3.4 % 0-5 [facility] Work Phone: Glucose [Mass/Vol] 128 mg/dL 74-106 [facility] Work Phone: Comment on above: Fasting Glucose resu lt greater than or equal to 126 mg/dL suggests DIABETES MELLITUS per A.D.A. criteria. Neutrophils (Bld) [#/Vol] 5.1 10*3/uL 2.0-7.7 [facility] Work Phone: Neutrophils/100 WBC (Bld) 63.2 % 47-70 [facility] Work Phone: Potassium [Moles/Vol] 3.6 mmol/L 3.5-5.1 [facility] Work Phone: Sodium [Moles/Vol] 140 mmol/L 136-145 [facility] Work Phone: WBC (Bld) [#/Vol] 8.1 10*3/uL 4.4-11.0 [facility] Work Phone: Bilirubin Test strip Ql (U)o n 10-07-2021 Bilirubin Ql (U) Negative Negative [facility] Work Phone: Blood erythrocytes count (nu mber/volume)on 10-07-2021 RBC (Bld) [#/Vol] 3.47 10*6/uL 4.2-5.4 [facility] Work Phone: Blood hemoglobin measurement (mass/volume)on 10-07-2021 Hemoglobin (Bld) [Mass/Vol] 11.5 g/dL 12.0-15.0 [facility] Work Phone: Blood lymphocytes/100 leukoc yteson 10-07-2021 Lymphocytes/100 WBC (Bld) 22.8 % 19-41 [facility] Work Phone: Blood monocytes/100 leukocyt eson 10-07-2021 Monocytes/100 WBC (Bld) 10.0 % 0-10 [facility] Work Phone: Blood platelet mean volumeon 10-07-2021 Platelet mean volume (Bld) [Entitic vol] 9.8 fL 6.2-12.0 [facility] Work Phone: Determination of erythrocyte mean corpuscular volume (MCV)on 10-07-2021 MCV (RBC) [Entitic vol] 102.6 fL 81-99 [facility] Work Phone: Hematocrit Auto (Bld) [Volum e fraction]on 10-07-2021 Hematocrit (Bld) [Volume fraction] 35.6 % 37-47 [facility] Work Phone: Ketones Test strip Ql (U)on 10-07-2021 Ketones Ql (U) Negative Negative [facility] Work Phone: Laboratory - Chemistry and C hemistry - challengeon 10-07-2021 CO2 [Moles/Vol] 29.0 mmol/L 21.0-32.0 [facility] Work Phone: Urea nitrogen/Creatinine [Mass ratio] 9.5 mg/mg 01-07 [facility] Work Phone: Laboratory - Hematology and Cell countson 10-07-2021 Erythrocyte distribution width (RBC) [Entitic vol] 48.8 fL 35.1-43.9 [facility] Work Phone: Erythrocyte distribution width (RBC) [Ratio] 12.9 % 11.6-14.6 [facility] Work Phone: Immature granulocytes/100 WBC (Bld) 0.200 % 0.0-0.9 [facility] Work Phone: Comment on above: IG% - Immature Granu locytes (promyelocytes, myelocytes and metamyelocytes) > 1% indicates that a LEFT SHIFT is Present. MCH (RBC) [Entitic mass] 33.1 pg 27.0-32.0 [facility] Work Phone: Nucleated RBC/100 WBC (Bld) [Ratio] 0 % 0-5 [facility] Work Phone: MCHC Auto (RBC) [Mass/Vol]on 10-07-2021 MCHC (RBC) [Mass/Vol] 32.3 g/dL 32-36 [facility] Work Phone: Mucus LM Ql (Urine sed)on Mucus Ql (Urine sed) 0 SEEN /hpf [facility] Work Phone: Nitrite Test strip Ql (U)on 10-07-2021 Nitrite Ql (U) Negative Negative [facility] Work Phone: No Panel Informationon 10-07 Estimated Creatinine Clearance Calc 44.24 ml/min [facility] Work Phone: Estimated GFR (MDRD) Amer 86 mL/min >60 [facility] Work Phone: Comment on above: GFR Calc Estimated GFR (MDRD) Non-Af Amer 71 mL/min >60 [facility] Work Phone: Comment on above: Non- GFR Calc Platelets bldon 10-07-2021 Platelets (Bld) [#/Vol] 219 10*3/uL 150-450 [facility] Work Phone: Protein Test strip Ql (U)on 10-07-2021 Protein Ql (U) Negative Negative [facility] Work Phone: Serum or plasma calcium moriah urement (mass/volume)on 10-07-2021 Calcium [Mass/Vol] 8.6 mg/dL 8.5-10.1 [facility] Work Phone: Serum or plasma creatinine m easurement (mass/volume)on 10-07-2021 Creatinine [Mass/Vol] 0.85 mg/dL 0.55-1.02 [facility] Work Phone: Comment on above: The validity of the calculated GFR & GFRAA in patients over 70 years has not been determined. Clinical correlation is essential. Serum or plasma lamotrigine measurement (mass/volume)on 10-07-2021 lamoTRIgine [Mass/Vol] 3.7 ug/mL 2.0-20.0 [facility] Work Phone: Comment on above: Detection Limit = 1. 0Performed at: [facility] - [facility] [id number] Director: Marino Mckeon MD, Phone: [phone] Serum or plasma urea nitroge n measurement (mass/volume)on 10-07-2021 Urea nitrogen [Mass/Vol] 8 mg/dL 7-18 [facility] Work Phone: Squamous epithelial cells de tection in urine sediment by light microscopyon 10-07-2021 Epithelial cells.squamous LM Ql (Urine sed) 0 SEEN /hpf 5-10 [facility] Work Phone: Thin prep Papanicolaou smear with manual screeningon 10-07-2021 Thin prep Papanicolaou smear with manual screening 7 5-15 [facility] Work Phone: Urine blood detectionon 09-19 0-2021 RBC Ql (U) Negative Negative [facility] Work Phone: RBC Ql (U) 0 SEEN /hpf 0-5 [facility] Work Phone: Urine clarityon 10-07-2021 Clarity (U) Clear Clear [facility] Work Phone: Urine color determinationon 10-07-2021 Color (U) Yellow Yellow [facility] Work Phone: Urine glucose detectionon Glucose Ql (U) Normal mg/dl Normal [facility] Work Phone: Urine leukocyte esterase det ection by dipstickon 10-07-2021 Leukocyte esterase Test strip Ql (U) Negative Negative [facility] Work Phone: Urine pHon 10-07-2021 pH (U) 6.0 [pH] 5.0 - 8.0 [facility] Work Phone: Urine sediment bacteria coun t by microscopy (number/high power field)on 10-07-2021 Bacteria LM.HPF (Urine sed) [#/Area] 0 /[HPF] None Seen [facility] Work Phone: Urine specific gravity measu rementon 10-07-2021 Specific gravity (U) [Rel density] 1.010 1.002-1.030 [facility] Work Phone: Urobilinogen Auto test strip Ql (U)on 10-07-2021 Urobilinogen Ql (U) Normal mg/dl Normal [facility] Work Phone: Basophil percentageon 2021 Basophil percentage 25-50 SEEN /hpf 0-5 [facility] Work Phone: Bilirubin Test strip Ql (U)o n 10-05-2021 Bilirubin Ql (U) Negative Negative [facility] Work Phone: Calcium oxalate crystals det ection in urine sediment by light microscopyon 10-05-2021 Calcium oxalate crystals LM Ql (Urine sed) 2+ /hpf [facility] Work Phone: Ketones Test strip Ql (U)on 10-05-2021 Ketones Ql (U) 5 mg/dl Negative [facility] Work Phone: Mucus LM Ql (Urine sed)on Mucus Ql (Urine sed) 0 SEEN /hpf [facility] Work Phone: Nitrite Test strip Ql (U)on 10-05-2021 Nitrite Ql (U) Negative Negative [facility] Work Phone: Protein Test strip Ql (U)on 10-05-2021 Protein Ql (U) 30 mg/dl Negative [facility] Work Phone: Squamous epithelial cells de tection in urine sediment by light microscopyon 10-05-2021 Epithelial cells.squamous LM Ql (Urine sed) 0-5 SEEN /hpf 5-10 [facility] Work Phone: Urine blood detectionon 09-18 RBC Ql (U) 10 /ul Negative [facility] Work Phone: RBC Ql (U) 0-5 SEEN /hpf 0-5 [facility] Work Phone: Urine clarityon 10-05-2021 Clarity (U) Sl Cldy Clear [facility] Work Phone: Urine color determinationon 10-05-2021 Color (U) Yellow Yellow [facility] Work Phone: Urine glucose detectionon Glucose Ql (U) Normal mg/dl Normal [facility] Work Phone: Urine leukocyte esterase det ection by dipstickon 10-05-2021 Leukocyte esterase Test strip Ql (U) 500 /ul Negative [facility] Work Phone: Urine pHon 10-05-2021 pH (U) 5.0 [pH] 5.0 - 8.0 [facility] Work Phone: Urine sediment bacteria coun t by microscopy (number/high power field)on 10-05-2021 Bacteria LM.HPF (Urine sed) [#/Area] 0 /[HPF] None Seen [facility] Work Phone: Urine specific gravity measu rementon 10-05-2021 Specific gravity (U) [Rel density] 1.020 1.002-1.030 [facility] Work Phone: Urobilinogen Auto test strip Ql (U)on 10-05-2021 Urobilinogen Ql (U) Normal mg/dl Normal [facility] Work Phone: Absolute lymphocyte counton 07-29-2021 Lymphocytes Auto (Unsp spec) [#/Vol] 3.13 10*3/uL 0.83-4.51 [facility] Work Phone: Basophil percentageon 2021 Basophils/100 WBC (Bld) 0.8 % 0-1 [facility] Work Phone: Chloride [Moles/Vol] 107 mmol/L 98-107 [facility]: Eosinophils/100 WBC (Bld) 5.5 % 0-5 [facility] Work Phone: Glucose [Mass/Vol] 78 mg/dL 74-106 [facility] Work Phone: Neutrophils (Bld) [#/Vol] 2.1 10*3/uL 2.0-7.7 [facility] Work Phone: Neutrophils/100 WBC (Bld) 32.9 % 47-70 [facility] Work Phone: Potassium [Moles/Vol] 4.1 mmol/L 3.5-5.1 [facility] Work [facility]: Sodium [Moles/Vol] 143 mmol/L 136-145 [facility] Work Phone: WBC (Bld) [#/Vol] 6.3 10*3/uL 4.4-11.0 [facility] Work Phone: Blood erythrocytes count (nu mber/volume)on 07-29-2021 RBC (Bld) [#/Vol] 3.50 10*6/uL 4.2-5.4 [facility] Work Phone: Blood hemoglobin measurement (mass/volume)on 07-29-2021 Hemoglobin (Bld) [Mass/Vol] 11.1 g/dL 12.0-15.0 [facility] Work Phone: Blood lymphocytes/100 leukoc yteson 07-29-2021 Lymphocytes/100 WBC (Bld) 49.6 % 19-41 [facility] Work Phone: Blood monocytes/100 leukocyt eson 07-29-2021 Monocytes/100 WBC (Bld) 10.9 % 0-10 [facility] Work Phone: Blood platelet mean volumeon 07-29-2021 Platelet mean volume (Bld) [Entitic vol] 9.8 fL 6.2-12.0 [facility] Work Phone: Determination of erythrocyte mean corpuscular volume (MCV)on 07-29-2021 MCV (RBC) [Entitic vol] 102.3 fL 81-99 [facility] Work Phone: Hematocrit Auto (Bld) [Volum e fraction]on 07-29-2021 Hematocrit (Bld) [Volume fraction] 35.8 % 37-47 [facility] Work Phone: Laboratory - Chemistry and C hemistry - challengeon 07-29-2021 CO2 [Moles/Vol] 33.0 mmol/L 21.0-32.0 [facility] Work Phone: Urea nitrogen/Creatinine [Mass ratio] 6.5 mg/mg 10-20 [facility] Work Phone: Laboratory - Hematology and Cell countson 07-29-2021 Erythrocyte distribution width (RBC) [Entitic vol] 44.4 fL 35.1-43.9 [facility] Work Phone: Erythrocyte distribution width (RBC) [Ratio] 11.7 % 11.6-14.6 [facility] Work Phone: Immature granulocytes/100 WBC (Bld) 0.300 % 0.0-0.9 [facility] Work Phone: Comment on above: IG% - Immature Granu locytes (promyelocytes, myelocytes and metamyelocytes) > 1% indicates that a LEFT SHIFT is Present. MCH (RBC) [Entitic mass] 31.7 pg 27.0-32.0 [facility] Work Phone: Nucleated RBC/100 WBC (Bld) [Ratio] 0 % 0-5 [facility] Work Phone: MCHC Auto (RBC) [Mass/Vol]on 07-29-2021 MCHC (RBC) [Mass/Vol] 31.0 g/dL 32-36 [facility] Work Phone: No Panel Informationon 07-29 Estimated GFR (MDRD) Amer 96 mL/min >60 [facility] Work Phone: Comment on above: GFR Calc Estimated GFR (MDRD) Non-Af Amer 79 mL/min >60 [facility] Work Phone: Comment on above: Non- GFR Calc Platelets bldon 07-29-2021 Platelets (Bld) [#/Vol] 261 10*3/uL 150-450 [facility] Work Phone: Serum or plasma calcium moriah urement (mass/volume)on 07-29-2021 Calcium [Mass/Vol] 8.6 mg/dL 8.5-10.1 [facility] Work Phone: Serum or plasma creatinine m easurement (mass/volume)on 07-29-2021 Creatinine [Mass/Vol] 0.77 mg/dL 0.55-1.02 [facility] Work Phone: Comment on above: The validity of the calculated GFR & GFRAA in patients over 70 years has not been determined. Clinical correlation is essential. Serum or plasma urea nitroge n measurement (mass/volume)on 07-29-2021 Urea nitrogen [Mass/Vol] 5 mg/dL 7-18 [facility] Work Phone: Thin prep Papanicolaou smear with manual screeningon 07-29-2021 Thin prep Papanicolaou smear with manual screening 3 5-15 [facility] Work Phone: Whole blood hemoglobin A1c/t otal hemoglobin ratio (mass fraction)on 07-29-2021 HbA1c (Bld) [Mass fraction] 5.0 % 3.8-5.6 [facility] Work Phone: Comment on above: Normal < 5.7 % Predi abetic 5.7 - 6.4 % Diabetic >or= 6.5 % Please note range changes. Basophil percentageon 2021 Bilirubin [Mass/Vol] 0.20 mg/dL 0.20-1.00 [facility] Work Phone: Comment on above: For patients on eltr ombopag therapy, use of Dimension Assaria TBIL is not recommended. Cholesterol [Mass/Vol] 139 mg/dL <200 [facility] Work Phone: Comment on above: <200 mg/dL Desirable 200-240 mg/dL Borderline >240 mg/dL High Risk Protein [Mass/Vol] 5.8 g/dL 6.4-8.2 [facility] Work Phone: Triglyceride [Mass/Vol] 91 mg/dL [facility] Work Phone: Comment on above: The drugs N-Acetylcy steine and Metamizole may falsely depress this assay.Serum Triglycerides Reference Interval Normal <150 mg/dL Borderline high 150 - 199 mg/dL High 200 - 499 mg/dL Very High > or = 500 mg/dL Direct bilirubinon 2 Bilirubin.direct [Mass/Vol] mg/dL 0.00-0.30 [facility] Work Phone: Laboratory - Chemistry and C hemistry - challengeon 04-20-2021 ALP [Catalytic activity/Vol] 67 U/L 45-117 [facility] Work Phone: ALT [Catalytic activity/Vol] 15 U/L 13-56 [facility] Work Phone: Globulin (S) [Mass/Vol] 2.9 g/dL 2.2-4.2 [facility] Work Phone: Serum or plasma albumin moraih urement (mass/volume)on 04-20-2021 Albumin [Mass/Vol] 2.9 g/dL 3.2-5.0 [facility] Work Phone: Serum or plasma cholesterol in HDL measurement (mass/volume)on 04-20-2021 Cholesterol in HDL [Mass/Vol] 54 mg/dL [facility] Work Phone: Comment on above: The drugs N-Acetylcy steine and Metamizole may falsely depress this assay. Reference Range HDL <40 mg/dL Low HDL Cholesterol HDL >or= 60 mg/dL High HDL Cholesterol Serum or plasma cholesterol in VLDL measurement (mass/volume)on 04-20-2021 Cholesterol in VLDL [Mass/Vol] 18 mg/dL 5-40 [facility] Work Phone: Serum or plasma low density lipoprotein (LDL) cholesterol measurement (mass/volume)on 04-20-2021 Cholesterol in LDL [Mass/Vol] 67 mg/dL 0-130 [facility] Work Phone: Thin prep Papanicolaou smear with manual screeningon 04-20-2021 Thin prep Papanicolaou smear with manual screening 13 U/L 15-37 [facility] Work Phone: Clinical Summary: HMSPatient IDon 10-24-2018 WOP [facility] Work Phone: Clinical Summary: Scanned RO S Summaryon 10-24-2018 endocrine ROS Denies [facility] Work Phone: Gastrointestional review of systems, comment Hemorrhoids [facility] Work Phone: genitourinary review of systems, E&M Denies [facility] Work Phone: Lymphocytes (Bld) [#/Vol] Denies [facility] Work Phone: ROS [facility]: ROS ENT comment Dent[facility] Work Phone: ROS ENT E&M Complains [facility] Work Phone: ROS gastrointestinal E&M Complains [facility] Work Phone: ROS general E&M [facility]ies [facility]: ROS Musculoskeletal comments Muscle Cramps,Muscle Weakness,Pain,Joint Pain,Stiffness,Arthri tis [facility] Work Phone: ROS musculoskeletal E&M Complains C rystal [facility] Work Phone: ROS neurological E&M Denies Alexandra nicolette [facility] Work Phone: ROS Psych comment Memory Loss Aruna l [facility] Work Phone: ROS psychiatric E&M Complains [facility] Work Phone: ROS pulmonary E&M Denies [facility] Work Phone: ROS skin E&M Denies [facility] Work Phone: Office Visit: New - 1st visi t with practice, Rm: 2on 10-24-2018 NEGATED: Highlighted rowMRI (magnetic resonance imaging) history of the Left Hip on 10/10/2018 at [facility] Work Phone: NEGATED: Highlighted rowTobacco smoking status NHIS Tobacco smoking status [facility] Work Phone: NEGATED: Highlighted rowxray history of the Left hip with Pelvis on 09/06/2018 at [facility] Work Phone: Clinical Lists Update: Prelo ad Extendedon 10-20-2018 Tobacco smoking status NHIS Tobacco smoking status [facility] Work Phone: MRI Low Ext Joint w/o Contra st Lefton 10-11-2018 MRI Low Ext Joint w/o Contrast Left Patient Name: CANDI AGUILAR MRI Exam Date/Time 10/10/2018 14:30:01 EDT Exam MRI Low Ext Joint w/o Contrast Left Ordering Physician DO TATUM EUGENE F. Accession Number [id number] CPT4 Codes 17761 () Reason For Exam left hip, eval [...] is otherwise unremarkable on the provided larger [id number] images. Small endplate osteophytes of the spine [...] Transcribed Date and Time: 10/11/2018 8:23 Normal [facility] CR Knee Complete 4+ Views Bi lateralon 09-07-2018 CR Knee Complete 4+ Views Bilateral Patient Name: CANDI AGUILAR Diagnostic Radiology Exam Date/Time 09/06/2018 11:56:00 EDT Exam CR Knee Complete 4+ Views Bilateral Ordering Physician DO TATUM EUGENE F. Accession Number [id number] CPT4 Codes 67583 () Reason For Exam primary osteoarthritis of [...] R Transcribed Date and Time: 09/07/2018 2:13 [facility] CR Hip w/ Pelvis 2 or 3 View s Lefton 09-06-2018 CR Hip w/ Pelvis 2 or 3 Views Left Patient Name: CANDI AGUILAR Diagnostic Radiology Exam Date/Time 09/06/2018 11:56:00 EDT Exam CR Hip w/ Pelvis 2 or 3 Views Left n Ordering Physician DO TATUM EUGENE F. Accession Number [id number] CPT4 Codes 33919 () Reason For Exam left hip pain [...] Transcribed Date and Time: 09/06/2018 4:24 Normal [facility] Culture, urine Bacteria identified Cx Nom (U) Positive [facility] Work Phone: No Panel Information [facility] Vital Signs Date Time Vital Sign Value Performing Clinician Facility 08-06-2024 13:56-0400 Body height 152.[address] Claudia Anderson MD [facility] 08-06-2024 13:56-0400 Body mass index (BMI) [Ratio] 20.7 kg/m2 Dr. Claudia Anderson MD [facility] 08-06-2024 13:56-0400 Body temperature 97.3 [degF] Dr. Claudia Anderson MD [facility] 08-06-2024 13:56-0400 Body weight 48.[address] Claudia Anderson MD [facility] 08-06-2024 13:56-0400 Diastolic blood pressure 76 mm[Hg] Dr. Claudia Anderson MD [facility] 08-06-2024 13:56-0400 Heart rate 60 /min Dr. Claudia Anderson MD [facility] 08-06-2024 13:56-0400 Respiratory rate 15 /min Dr. Claudia Anderson MD [facility] 08-06-2024 13:56-0400 SaO2% (BldA) [Mass fraction] 99 % Dr. Claudia Anderson MD [facility] 08-06-2024 13:56-0400 Systolic blood pressure 127 mm[Hg] Dr. Claudia Anderson MD [facility] 05-07-2024 14:19-0500 Body mass index (BMI) [Ratio] 21.4 kg/m2 Dr. Claudia Anderson MD [facility] 05-07-2024 14:19-0500 Body temperature 97.8 [degF] Dr. Claudia Anderson MD [facility] 05-07-2024 14:19-0500 Body weight 49.[address] Claudia Anderson MD [facility] 05-07-2024 14:19-0500 Diastolic blood pressure 68 mm[Hg] Dr. Claudia Anderson MD [facility] 05-07-2024 14:19-0500 Heart rate 70 /min Dr. Claudia Anderson MD [facility] 05-07-2024 14:19-0500 Respiratory rate 16 /min Dr. Claudia Anderson MD [facility] 05-07-2024 14:19-0500 SaO2% (BldA) [Mass fraction] 96 % Dr. Claudia Anderson MD [facility] 05-07-2024 14:19-0500 Systolic blood pressure 120 mm[Hg] Dr. Claudia Anderson MD [facility] 06-28-2023 15:43-0400 Body mass index (BMI) [Ratio] 21.1 kg/[facility]-28-[facility]23 15:43-0400 Body temperature 97.7 [degF] Dr. Claudia Anderson [facility] 06-28-2023 15:43-0400 Body weight 49.[address] Claudia Anderson [facility] 06-28-2023 15:43-0400 Diastolic blood pressure 74 mm[Hg] Dr. Claudia Anderson [facility] 06-28-2023 15:43-0400 Heart rate 63 /min Dr. Claudia Anderson [facility] 06-28-2023 15:43-0400 Respiratory rate 18 /[facility]-28-2023 15:43-0400 SaO2% (BldA) [Mass fraction] 98 % Dr. Claudia Anderson [facility] 06-28-2023 15:43-0400 Systolic blood pressure 120 mm[Hg] Dr. Claudia Anderson [facility] 06-09-2023 14:00-0400 Diastolic blood pressure 56 mm[Hg[facility]-09-2023 14:00-0400 Heart rate 56 /[facility] 06-09-2023 14:00-0400 Systolic blood pressure 137 mm[Hg[facility] 06-09-2023 01:09-0400 Body temperature 97.6 [degF] Dr. Claudia Anderson [facility] 06-09-2023 01:09-0400 Respiratory rate 16 /[facility] 06-09-2023 01:09-0400 SaO2% (BldA) [Mass fraction] 98 % Dr. Taylor [facility] 06-08-2023 23:04-0400 Body height 152.[address] [facility] 06-08-2023 23:04-0400 Body mass index (BMI) [Ratio] 22.6 kg/m2 [facility] 06-08-2023 23:04-0400 Body weight 52.[address] [facility] 02-28-2023 14:54-0500 Body height 152.[address] Addi Tatum Work Phone: [facility] 02-28-2023 14:54-0500 Body mass index (BMI) [Ratio] 21.2 kg/m2 Dr. Addi Tatum Work Phone: [facility] 02-28-2023 14:54-0500 Body temperature 97.8 [degF] Dr. Addi Tatum Work Phone: [facility] 02-28-2023 14:54-0500 Body weight 49.[address] Addi Tatum Work Phone: [facility] 02-28-2023 14:54-0500 Diastolic blood pressure 90 mm[Hg] Dr. Addi Tatum Work Phone: [facility] 02-28-2023 14:54-0500 Heart rate 55 /min Dr. Addi Tatum Work Phone: [facility] 02-28-2023 14:54-0500 Respiratory rate 17 /min Dr. Addi Tatum Work Phone: [facility] 02-28-2023 14:54-0500 SaO2% (BldA) [Mass fraction] 97 % Dr. Addi Tatum Work Phone: [facility] 02-28-2023 14:54-0500 Systolic blood pressure 120 mm[Hg] Dr. Addi Tatum Work Phone: [facility] 12-15-2022 13:00-0400 Heart rate 78 /min Dr. Claudia Anderson [facility] 12-15-2022 13:00-0400 Respiratory rate 15 /[facility] 12-15-2022 13:00-0400 SaO2% (BldA) [Mass fraction] 93 % Dr. Claudia Anderson [facility] 12-15-2022 11:50-0400 Diastolic blood pressure 57 mm[Hg] [facility] 12-15-2022 11:50-0400 Systolic blood pressure 123 mm[Hg[facility] 12-15-2022 09:39-0400 Body height 152.[address] [facility] 12-15-2022 09:39-0400 Body mass index (BMI) [Ratio] 22.7 kg/m2 [facility] 12-15-2022 09:39-0400 Body temperature 98.8 [degF] Dr. Claudia Anderson [facility] 12-15-2022 09:39-0400 Body weight 52.[address] Claudia Anderson [facility] 12-02-2022 11:02-0400 Body height 152.[address] [facility] 12-02-2022 11:02-0400 Body mass index (BMI) [Ratio] 21.4 kg/m2 [facility] 12-02-2022 11:02-0400 Body weight 49.[address] Claudia Anderson [facility] 11-17-2022 11:47-0400 Body height 152.[address] Claudia Anderson [facility] 11-17-2022 11:47-0400 Body mass index (BMI) [Ratio] 21.9 kg/m2 Dr. Claudia Anderson [facility] 11-17-2022 11:47-0400 Body temperature 97.8 [degF] Dr. Claudia Anderson [facility] 11-17-2022 11:47-0400 Body weight 50.[address] [facility] 11-17-2022 11:47-0400 Diastolic blood pressure 90 mm[Hg] Dr. Claudia Anderson [facility] 11-17-2022 11:47-0400 Heart rate 65 /min [facility] 11-17-2022 11:47-0400 Respiratory rate 16 /[facility] 11-17-2022 11:47-0400 SaO2% (BldA) [Mass fraction] 95 % [facility] 11-17-2022 11:47-0400 Systolic blood pressure 130 mm[Hg[facility] 11-09-2022 08:36-0400 Body mass index (BMI) [Ratio] 21.3 kg/m2 [facility] 11-09-2022 08:36-0400 Body temperature 97.8 [degF] Dr. Claudia Anderson [facility] 11-09-2022 08:36-0400 Body weight 49.[address] Claudia Anderson [facility] 11-09-2022 08:36-0400 Diastolic blood pressure 82 mm[Hg[facility] 11-09-2022 08:36-0400 Heart rate 73 /min [facility] 11-09-2022 08:36-0400 Respiratory rate 16 /[facility] 11-09-2022 08:36-0400 SaO2% (BldA) [Mass fraction] 96 % Dr. Claudia Anderson [facility] 11-09-2022 08:36-0400 Systolic blood pressure 106 mm[Hg] Dr. Claudia Anderson [facility] 09-14-2022 14:35-0400 Body temperature 96.9 [degF] Dr. Medardo Mayo Work Phone: 6(381)712-290527 [place] [address] 09-14-2022 14:35-0400 Diastolic blood pressure 61 mm[Hg] Dr. Medardo Mayo Work Phone: 4(826)052-753427 [place] [address] 09-14-2022 14:35-0400 Heart rate 60 /min Dr. Medardo Mayo Work Phone: 5(114)281-072827 [place] [address] 09-14-2022 14:35-0400 Respiratory rate 16 /min Dr. Medardo Mayo Work Phone: 4(374)652-505527 [place] [address] 09-14-2022 14:35-0400 SaO2% (BldA) [Mass fraction] 100 % Dr. Medardo Mayo Work Phone: 2(555)133-291527 [place] [address] 09-14-2022 14:35-0400 Systolic blood pressure 142 mm[Hg] Dr. Medardo Mayo Work Phone: 4(851)087-847827 [place] [address] 09-14-2022 10:13-0400 Body height 152.[address] Medardo Mayo Work Phone: 4(919)429-002627 [place] [address] 09-14-2022 10:13-0400 Body mass index (BMI) [Ratio] 21.4 kg/m2 Dr. Medardo Mayo Work Phone: 1(217)540-910527 [place] [address] 09-14-2022 10:13-0400 Body weight 49.[address] Medardo Mayo Work Phone: 4(810)940-784227 [place] [address] 09-06-2022 08:52-0400 Body mass index (BMI) [Ratio] 21.4 kg/m2 Dr. Medardo Mayo Work Phone: 6(088)608-872427 [place] [address] 09-06-2022 08:52-0400 Body temperature 96.8 [degF] Dr. Medardo Mayo Work Phone: 7(572)724-875827 [place] [address] 09-06-2022 08:52-0400 Body weight 49.[address] Medardo Mayo Work Phone: 5(810)619-956727 [place] [address] 09-06-2022 08:52-0400 Diastolic blood pressure 64 mm[Hg] Dr. Medardo Mayo Work Phone: 2(106)667-090527 [place] [address] 09-06-2022 08:52-0400 Heart rate 71 /min Dr. Medardo Mayo Work Phone: 1(116)116-153727 [place] [address] 09-06-2022 08:52-0400 Respiratory rate 16 /min Dr. Medardo Mayo Work Phone: 6(271)541-357327 [place] [address] 09-06-2022 08:52-0400 SaO2% (BldA) [Mass fraction] 98 % Dr. Medardo Mayo Work Phone: 7(744)510-497727 [place] [address] 09-06-2022 08:52-0400 Systolic blood pressure 96 mm[Hg] Dr. Medardo Mayo Work Phone: 9(337)609-372527 [place] [address] 08-27-2022 21:47-0400 Body height 152.[address] Medardo Mayo Work Phone: 9(476)659-117227 [place] [address] 08-27-2022 21:47-0400 Body mass index (BMI) [Ratio] 22 kg/m2 Dr. Medardo Mayo Work Phone: 9(089)505-692427 [place] [address] 08-27-2022 21:47-0400 Body temperature 97.1 [degF] Dr. Medardo Mayo Work Phone: 7(621)462-110827 [place] [address] 08-27-2022 21:47-0400 Body weight 51.[address] Medardo Mayo Work Phone: 3(090)466-172527 [place] [address] 08-27-2022 21:47-0400 Diastolic blood pressure 57 mm[Hg] Dr. Medardo Mayo Work Phone: 0(212)595-231727 [place] [address] 08-27-2022 21:47-0400 Heart rate 58 /min Dr. Medardo Mayo Work Phone: [facility] 08-27-2022 21:47-0400 Respiratory rate 18 /min Dr. Medardo Mayo Work Phone: [facility] 08-27-2022 21:47-0400 SaO2% (BldA) [Mass fraction] 99 % Dr. Medardo Mayo Work Phone: [facility] 08-27-2022 21:47-0400 Systolic blood pressure 124 mm[Hg] Dr. Medardo Mayo Work Phone: [facility] 07-01-2022 09:58-0400 Body height 152.[address] [facility] 07-01-2022 09:58-0400 Body mass index (BMI) [Ratio] 19.8 kg/m2 [facility] 07-01-2022 09:58-0400 Body temperature 97.8 [degF] [facility] 07-01-2022 09:58-0400 Body weight 45.[address] Taylor [facility] 07-01-2022 09:58-0400 Diastolic blood pressure 80 mm[Hg] [facility] 07-01-2022 09:58-0400 Heart rate 71 /min [facility] 07-01-2022 09:58-0400 Respiratory rate 16 /[facility] 07-01-2022 09:58-0400 SaO2% (BldA) [Mass fraction] 99 % Dr. Taylor [facility] 07-01-2022 09:58-0400 Systolic blood pressure 118 mm[Hg] [facility] 04-16-2022 03:26-0500 SaO2% (BldA) [Mass fraction] 97 % [facility] 04-15-2022 21:44-0500 Body height 152.4 cm [facility] 04-15-2022 21:44-0500 Body mass index (BMI) [Ratio] 20.7 kg/m2 [facility] 04-15-2022 21:44-0500 Body temperature 97.5 [degF] [facility] 04-15-2022 21:44-0500 Body weight 48.2 kg [facility] 04-15-2022 21:44-0500 Diastolic blood pressure 68 mm[Hg] [facility] 04-15-2022 21:44-0500 Heart rate 63 /min [facility] 04-15-2022 21:44-0500 Respiratory rate 18 /min [facility] 04-15-2022 21:44-0500 Systolic blood pressure 145 mm[Hg] [facility] 02-14-2022 01:29-0500 Heart rate 53 /min [facility] 02-14-2022 01:29-0500 Respiratory rate 22 /min [facility] 02-14-2022 00:14-0500 SaO2% (BldA) [Mass fraction] 97 % [facility] 02-13-2022 22:11-0500 Body height 152.4 cm [facility] Work Phone: 02-13-2022 22:11-0500 Body mass index (BMI) [Ratio] 20.2 kg/m2 [facility] 02-13-2022 22:11-0500 Body temperature 97.6 [degF] [facility] 02-13-2022 22:11-0500 Body weight 47.1 kg [facility] 02-13-2022 22:11-0500 Diastolic blood pressure 64 mm[Hg] [facility] 02-13-2022 22:11-0500 Systolic blood pressure 149 mm[Hg] [facility] 02-01-2022 01:37-0500 Diastolic blood pressure 70 mm[Hg] [facility] 02-01-2022 01:37-0500 Heart rate 58 /min [facility] 02-01-2022 01:37-0500 Respiratory rate 16 /min [facility] 02-01-2022 01:37-0500 SaO2% (BldA) [Mass fraction] 98 % [facility] 02-01-2022 01:37-0500 Systolic blood pressure 134 mm[Hg] [facility] 01-31-2022 23:38-0500 Body height 152.4 cm [facility] Work Phone: 01-31-2022 23:38-0500 Body mass index (BMI) [Ratio] 20.6 kg/m2 [facility] 01-31-2022 23:38-0500 Body temperature 97.5 [degF] [facility] 01-31-2022 23:38-0500 Body weight 47.85 kg [facility] 01-18-2022 21:11-0400 Body temperature 97.8 [degF] [facility] 01-18-2022 21:11-0400 Diastolic blood pressure 78 mm[Hg] [facility] 01-18-2022 21:11-0400 Heart rate 78 /min [facility] 01-18-2022 21:11-0400 Respiratory rate 16 /min [facility] 01-18-2022 21:11-0400 SaO2% (BldA) [Mass fraction] 99 % [facility] 01-18-2022 21:11-0400 Systolic blood pressure 118 mm[Hg] [facility] 01-18-2022 19:14-0400 Body height 152.4 cm [facility] Work Phone: 01-18-2022 19:14-0400 Body mass index (BMI) [Ratio] 21.3 kg/m2 [facility] 01-18-2022 19:14-0400 Body weight 49.6 kg [facility] 11-22-2021 00:21-0400 Diastolic blood pressure 52 mm[Hg] [facility] Work Phone: 11-22-2021 00:21-0400 Heart rate 53 /min [facility] Work Phone: 11-22-2021 00:21-0400 Respiratory rate 16 /min [facility] Work Phone: 11-22-2021 00:21-0400 SaO2% (BldA) [Mass fraction] 97 % [facility] Work Phone: 11-22-2021 00:21-0400 Systolic blood pressure 104 mm[Hg] [facility] Work Phone: 11-21-2021 22:29-0400 Body height 152.4 cm [facility] Work Phone: 11-21-2021 22:29-0400 Body mass index (BMI) [Ratio] 22.1 kg/m2 [facility] Work Phone: 11-21-2021 22:29-0400 Body temperature 97 [degF] [facility] Work Phone: 11-21-2021 22:29-0400 Body weight 51.3 kg [facility] Work Phone: 10-10-2021 06:36-0400 Diastolic blood pressure 60 mm[Hg] [facility] Work Phone: 10-10-2021 06:36-0400 Heart rate 68 /min [facility] Work Phone: 10-10-2021 06:36-0400 Respiratory rate 16 /min [facility] Work Phone: 10-10-2021 06:36-0400 SaO2% (BldA) [Mass fraction] 98 % [facility] Work Phone: 10-10-2021 06:36-0400 Systolic blood pressure 98 mm[Hg] [facility] Work Phone: 10-10-2021 01:04-0400 Body height 162.56 cm [facility] Work Phone: 10-10-2021 01:04-0400 Body mass index (BMI) [Ratio] 19 kg/m2 [facility] Work Phone: 10-10-2021 01:04-0400 Body temperature 97.2 [degF] [facility] Work Phone: 10-10-2021 01:04-0400 Body weight 50.2 kg [facility] Work Phone: 10-07-2021 23:16-0400 Diastolic blood pressure 71 mm[Hg] [facility] Work Phone: 10-07-2021 23:16-0400 Heart rate 78 /min [facility] Work Phone: 10-07-2021 23:16-0400 Respiratory rate 16 /min [facility] Work Phone: 10-07-2021 23:16-0400 SaO2% (BldA) [Mass fraction] 98 % [facility] Work Phone: 10-07-2021 23:16-0400 Systolic blood pressure 124 mm[Hg] [facility] Work Phone: 10-07-2021 18:47-0400 Body height 152.4 cm [facility] Work Phone: 10-07-2021 18:47-0400 Body mass index (BMI) [Ratio] 21.2 kg/m2 [facility] Work Phone: 10-07-2021 18:47-0400 Body temperature 98.3 [degF] [facility] Work Phone: 10-07-2021 18:47-0400 Body weight 49.2 kg [facility] Work Phone: NEGATED: Highlighted [id number] 13:06-0400 BMI (Body Mass Index) 19.4 kg/m2 Hina Esparza LPN [facility] Work Phone: NEGATED: Highlighted [id number] 13:06-0400 Body weight 44.91 kg Hina Esparza LPN [facility] Work Phone: NEGATED: Highlighted [id number] 13:06-0400 Body weight 45 kg Hina Esparza LPN [facility] Work Phone: NEGATED: Highlighted [id number] 13:06-0400 BP Diastolic 76 mm[Hg] Hina Esparza LPN [facility] Work Phone: NEGATED: Highlighted [id number] 13:06-0400 BP Systolic 146 mm[Hg] Hina Esparza LPN [facility] Work Phone: NEGATED: Highlighted [id number] 13:06-0400 BP Systolic 129 mm[Hg] Hina Esparza LPN [facility] Work Phone: NEGATED: Highlighted [id number] 13:06-0400 Height 152.4 cm Hina Esparza LPN [facility] Work Phone: NEGATED: Highlighted [id number] 13:06-0400 Height 152 cm Hina Esparza LPN [facility] Work Phone: NEGATED: Highlighted [id number] 13:06-0400 Pulse (Heart Rate) 60 /min Hina Esparza LPN [facility] Work Phone: Encounters Encounter Date Encounter Type Care Provider Facility Start: 08-22-2024 ambulatory Claudiasimran Anderson Facility:[facility] Start: 08-15-2024 ambulatory Claudiasimran Anderson Facility:[facility] Start: 08-06-2024 End: 08-06-[address] Medardo Mayo MD -[facility] Work Phone: Start: 08-06-2024 End: 08-06-[address] Claudia Anderson MD [facility] Work Phone: Start: 08-06-2024 End: 08-06-[address] Claudia Anderson MD [facility] Work Phone: Start: 08-06-2024 End: 08-06-[address] Kendra Bran MD -Radiology [facility] Work Phone: Start: 08-06-2024 End: 08-06-2024 ambulatory Claudia Gudla Facility:[facility] Start: 07-12-[address] True Holguin MD -[facility] Start: 07-12-2024 End: 07-12-2024 ambulatory Claudia Gudla Facility:[facility] Start: 06-25-2024 ambulatory Claudia Gudla Facility:[facility] Start: 06-25-[address] Claudia Anderson MD -[facility] Start: 05-07-2024 End: 05-07-[address] Medardo Mayo MD -[facility] Work Phone: Start: 05-07-2024 End: 05-07-2024 ambulatory Claudia Gudla Facility:[facility] Start: 04-13-2024 ambulatory Claudia Gudla OLS Facili ty:[facility] Start: 04-13-[address] Claudia Anderson MD -[facility] Start: 02-17-2024 ambulatory Claudia Gudla OLS Facili ty:[facility] Start: 01-25-2024 End: 01-25-2024 ambulatory Medardo Mayo Facility:[facility] Start: 01-17-2024 End: 01-17-2024 ambulatory Claudia Gudla OLS Facility:[facility] Start: 01-12-2024 End: 01-12-2024 ambulatory Claudia Gudla OLS Facility:[facility] Start: 01-04-2024 End: 01-04-2024 ambulatory True Rader Facility:[facility] Start: 12-12-2023 End: 12-12-2023 ambulatory Claudia Gudla OLS Facility:[facility] Start: 11-17-2023 End: 11-17-2023 ambulatory Claudia Gudla [place] Start: 11-08-2023 End: 11-08-2023 ambulatory Claudia Gudla Facility:[facility] Start: 11-03-2023 End: 11-03-2023 [facility] Start: 11-03-2023 End: 11-03-2023 ambulatory [facility] Facility:[facility] Start: 10-12-2023 End: 10-12-2023 ambulatory [facility] Facility:[facility] Start: 07-18-[address] Claudia Anderson [facility] Start: 07-13-[address] [facility] Start: 07-11-2023 End: 07-11-[address] Claudia Anderson [facility] Work Phone: Start: 06-28-2023 End: 06-28-[address] Claudia Anderson [facility] Work Phone: Start: 06-14-2023 End: 06-14-[address] [facility] Start: 06-14-2023 End: 06-14-[address] [facility] Work [facility]: Start: 06-13-2023 End: 06-13-[address] [facility] Start: 06-13-2023 End: 06-13-[address] Claudia Anderson [facility] Start: 06-13-[address] [facility] Start: 06-08-2023 End: 06-09-2023 [facility] Start: 05-30-2023 End: 05-30-[address] [facility] Start: 05-30-2023 End: 05-30-[address] Claudia Anderson [facility] Start: 05-30-[address] Claudia Anderson [facility] Start: 05-27-2023 End: 05-27-[address] Claudia Anderson [facility] Work Phone: Start: 04-13-2023 End: 04-13-[address] Claudia Anderson [facility] Start: 02-28-2023 End: 02-28-[address] Addi Tatum Work Phone: [facility] Work Phone: Start: 02-28-2023 End: 02-28-[address] Addi Tatum Work Phone: [facility] Work Phone: Start: 02-28-2023 End: 02-28-[address] Addi Tatum Work Phone: [facility] Work Phone: Start: 01-25-2023 End: 01-25-[address] Addi Tatum Work Phone: [facility] Work Phone: Start: 01-25-2023 End: 01-25-[address] Addi Tatum Work Phone: [facility] Start: 01-11-2023 End: 01-11-[address] 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 Claudia Anderson [facility] Work Phone: Start: 12-20-2022 End: 12-20-[address] [facility] Start: 12-20-[address] [facility] Start: 12-17-2022 End: 12-17-[address] [facility] Start: 12-17-2022 End: 12-17-[address] [facility] Start: 12-15-2022 End: 12-15-2022 Emergency department patient visit Dr. Claudia Anderson [facility] Work Phone: Start: 12-02-2022 End: 12-02-[address] Claudia Anderson [facility] Work Phone: Start: 11-17-2022 End: 11-17-[address] [facility] Start: 11-17-2022 End: 11-17-[address] [facility] Work [facility] Start: 11-17-2022 End: 11-17-[address] Claudia Anderson [facility] Work Phone: Start: 11-17-2022 End: 11-17-[address] Claudia Anderson [facility] Work Phone: Start: 11-17-2022 End: 11-17-[address] Claudia Anderson [facility] Start: 11-17-[address] [facility] Start: 11-09-2022 End: 11-09-[address] Claudia Anderson [facility] Work Phone: Start: 10-11-2022 End: 10-11-[address] Claudia Anderson [facility] Work Phone: Start: 09-29-2022 End: 09-29-[address] Claudia Anderson [facility] Start: 09-29-[address] [facility] Start: 09-28-2022 End: 09-28-[address] Claudia Anderson [facility] Work Phone: Start: 09-22-2022 End: 09-22-[address] Claudia Anderson [facility] Work Phone: Start: 09-22-2022 End: 09-22-[address] Claudia Anderson [facility] Start: 09-22-[address] [facility] Start: 09-15-2022 End: 09-15-[address] [facility] Start: 09-15-2022 End: 09-15-[address] Claudia Anderson [facility] Start: 09-15-[address] Claudia Adnerson [facility] Start: 09-14-2022 Non-patient / Non-visit Dr. Claudia rivera [facility] Start: 09-14-2022 Dr. Medardo roth Work Phone: [facility] Start: 09-14-2022 End: 09-14-2022 [facility] Start: 09-14-2022 End: 09-14-[address] Medardo Mayo Work Phone: [facility] Work Phone: Start: 09-14-2022 End: 09-14-2022 Dr. [facility] Start: 09-08-2022 End: 09-08-[address] [facility] Start: 09-08-2022 End: 09-08-[address] [facility] Start: 09-08-[address] [facility] Start: 09-08-2022 Dr. Medardo roth Work Phone: [facility] Start: 09-06-2022 End: 09-06-[address] Claudia Anderson [facility] Work Phone: Start: 09-06-2022 End: 09-06-2022 Dr. Medardo Mayo Work Phone: [facility] Start: 09-01-2022 End: 09-01-[address] Medardo Mayo Work Phone: [facility] Work Phone: Start: 09-01-2022 End: 09-01-[address] Claudia Anderson [facility] Start: 09-01-2022 End: 09-01-2022 Dr. Medardo Mayo Work Phone: [facility] Start: 08-27-2022 End: 08-28-2022 Emergency department patient visit Dr. Claudia Anderson [facility] Work Phone: Start: 08-27-2022 End: 08-28-2022 Dr. Medardo Mayo Work Phone: [facility] Start: 08-25-2022 End: 08-25-[address] [facility] Work Phone: Start: 08-25-2022 End: 08-25-[address] Claudia Anderson [facility] Start: 08-25-2022 Dr. Medardo roth Work Phone: [facility] Start: 08-18-2022 End: 08-18-[address] Medardo Mayo Work Phone: [facility] Work Phone: Start: 08-18-2022 End: 08-18-[address] Claudia Anderson [facility] Start: 08-18-2022 End: 08-18-2022 Dr. Medardo Mayo Work Phone: [facility] Start: 08-11-2022 End: 08-11-[address] Medardo Mayo Work Phone: [facility] Work Phone: Start: 08-11-2022 End: 08-11-[address] Claudia Anderson [facility] Start: 08-11-2022 End: 08-11-2022 Dr. Medardo Mayo Work Phone: [facility] Start: 08-10-2022 End: 08-10-[address] Claudia Anderson [facility] Start: 08-10-2022 End: 08-10-2022 Dr. Medardo Mayo Work Phone: [facility] Start: 08-04-2022 End: 08-04-[address] [facility] Start: 08-04-2022 End: 08-04-[address] Claudia Anderson [facility] Start: 08-04-2022 End: 08-04-2022 Dr. Medardo Mayo Work Phone: [facility] Start: 07-28-2022 End: 07-28-[address] Claudia Anderson [facility] Start: 07-28-2022 End: 07-28-2022 Dr. Medardo Mayo Work Phone: [facility] Start: 07-21-2022 End: 07-21-[address] Claudia Anderson [facility] Start: 07-21-[address] Claudia Anderson [facility] Start: 07-21-2022 End: 07-21-2022 Dr. Medardo Mayo Work Phone: [facility] Start: 07-14-2022 End: 07-14-[address] Medardo Mayo Work Phone: [facility] Work Phone: Start: 07-14-2022 End: 07-14-[address] Medardo Mayo Work Phone: [facility] Start: 07-14-[address] Claudia Anderson [facility] Start: 07-14-2022 End: 07-14-2022 Dr. Medardo Mayo Work Phone: [facility] Start: 07-07-2022 End: 07-07-[address] [facility] Start: 07-07-2022 End: 07-07-[address] [facility] Start: 07-07-2022 End: 07-07-2022 Dr. Medardo Mayo Work Phone: [facility] Start: 07-01-2022 End: 07-01-[address] Claudia Anderson [facility] Start: 07-01-2022 End: 07-01-2022 Dr. Medardo Mayo Work Phone: [facility] Start: 06-30-2022 End: 06-30-[address] Claudia Anderson [facility] Start: 06-30-2022 Registered Referred [facility] Start: 06-30-2022 End: 06-30-2022 Dr. Medardo Mayo Work Phone: [facility] Start: 06-16-2022 End: 06-16-2022 ambulatory [facility] Work Phone: Start: 06-16-2022 End: 06-16-2022 Departed Referred [facility] Start: 06-16-2022 Registered Referred [facility] Start: 06-16-2022 End: 06-16-2022 Dr. Medardo Mayo Work Phone: [facility] Start: 06-09-2022 End: 06-09-2022 ambulatory [facility] Work Phone: Start: 06-09-2022 End: 06-09-2022 Departed Referred [facility] Start: 06-09-2022 Registered Referred [facility] Start: 06-09-2022 End: 06-09-2022 Dr. Medardo Mayo Work Phone: [facility] Start: 06-04-2022 End: 06-04-2022 Departed Referred [facility] Start: 06-04-2022 Registered Referred [facility] Start: 06-04-2022 End: 06-04-2022 Dr. Medardo Mayo Work Phone: [facility] Start: 06-02-2022 End: 06-02-2022 Departed Referred [facility] Start: 06-02-2022 Registered Referred [facility] Start: 06-02-2022 End: 06-02-2022 Dr. Medardo Mayo Work Phone: [facility] Start: 05-31-2022 End: 05-31-2022 ambulatory [facility] Work Phone: Start: 05-31-2022 End: 05-31-2022 Departed Referred [facility] Start: 05-31-2022 Registered Referred [facility] Start: 05-31-2022 End: 05-31-2022 Dr. Medardo Mayo Work Phone: [facility] Start: 05-26-2022 End: 05-26-2022 ambulatory [facility] Work Phone: Start: 05-26-2022 End: 05-26-2022 Departed Referred [facility] Start: 05-26-2022 Registered Referred [facility] Start: 05-26-2022 End: 05-26-2022 Dr. Medardo Mayo Work Phone: [facility] Start: 05-19-2022 End: 05-19-2022 Departed Referred [facility] Start: 05-19-2022 Registered Referred [facility] Start: 05-19-2022 End: 05-19-2022 Dr. Medardo Mayo Work Phone: [facility] Start: 05-12-2022 End: 05-12-2022 ambulatory [facility] Work Phone: Start: 05-12-2022 End: 05-12-2022 Departed Referred [facility] Start: 05-12-2022 Registered Referred [facility] Start: 05-12-2022 End: 05-12-2022 Dr. Medardo Mayo Work Phone: [facility] Start: 05-11-2022 End: 05-11-2022 ambulatory [facility] Work Phone: Start: 05-11-2022 End: 05-11-2022 Departed Referred [facility] Start: 05-11-2022 Registered Referred [facility] Start: 05-11-2022 End: 05-11-2022 Dr. Medardo Mayo Work Phone: [facility] Start: 05-05-2022 End: 05-05-2022 ambulatory [facility] Work Phone: Start: 05-05-2022 End: 05-05-2022 Departed Referred [facility] Start: 05-05-2022 Registered Referred [facility] Start: 04-19-2022 End: 04-19-2022 ambulatory [facility] Work Phone: Start: 04-19-2022 End: 04-19-2022 Departed Referred [facility] Start: 04-19-2022 Registered Referred [facility] Start: 04-15-2022 End: 04-16-2022 Emergency department patient visit [facility] Start: 03-30-2022 End: 03-30-2022 ambulatory [facility] Work Phone: Start: 03-30-2022 End: 03-30-2022 Departed Referred [facility] Start: 03-30-2022 Registered Referred [facility] Start: 03-29-2022 End: 03-29-2022 ambulatory [facility] Work Phone: Start: 03-29-2022 End: 03-29-2022 Departed Referred [facility] Start: 03-29-2022 Registered Referred [facility] Start: 03-11-2022 Registered Referred [facility] Start: 03-05-2022 Reg[facility] [facility] Start: 02-16-2022 Registered Referred [facility] Start: 02-13-2022 End: 02-14-2022 Emergency department patient visit [facility] Start: 02-08-2022 End: 02-08-2022 ambulatory [facility] Work Phone: Start: 02-08-2022 End: 02-08-2022 Departed Referred [facility] Start: 01-31-2022 End: 02-01-2022 Emergency department patient visit [facility] Start: 01-18-2022 End: 01-18-2022 Emergency department patient visit [facility] Start: 12-29-2021 End: 12-29-2021 ambulatory [facility] Work Phone: Start: 12-29-2021 End: 12-29-2021 Departed Referred [place] [id number] Start: 12-29-2021 Registered Referred [place] [id number] Start: 12-23-2021 End: 12-23-2021 Departed Referred [place] [id number] Start: 12-23-2021 Registered Referred [place] [id number] Start: 12-16-2021 Registered Referred [place] [id number] Start: 12-09-2021 Registered Referred [place] [id number] Start: 12-02-2021 End: 12-02-2021 ambulatory [facility] Work Phone: Start: 12-02-2021 End: 12-02-2021 Departed Referred [facility] Start: 12-02-2021 Registered Referred [facility] Start: 11-25-2021 End: 11-25-2021 ambulatory [facility] Work Phone: Start: 11-25-2021 End: 11-25-2021 Departed Referred [facility] Start: 11-25-2021 Registered Referred [facility] Start: 11-21-2021 End: 11-22-2021 Emergency department patient visit [facility] Start: 11-18-2021 End: 11-18-2021 ambulatory [facility] Work Phone: Start: 11-18-2021 End: 11-18-2021 Departed Referred [facility] Start: 11-18-2021 Registered Referred [facility] Start: 11-11-2021 End: 11-11-2021 Departed Referred [facility] Start: 11-11-2021 Registered Referred [facility] Start: 11-04-2021 End: 11-04-2021 ambulatory [facility] Work Phone: Start: 11-04-2021 End: 11-04-2021 Departed Referred [place] [id number] Start: 11-04-2021 Registered Referred [place] [id number] Start: 10-28-2021 End: 10-28-2021 ambulatory [facility] Work Phone: Start: 10-28-2021 End: 10-28-2021 Departed Referred [place] [id number] Start: 10-21-2021 Registered Referred [place] [id number] Start: 10-19-2021 Registered Referred [place] [id number] Start: 10-14-2021 End: 10-14-2021 Departed Referred [place] [id number] Start: 10-10-2021 End: 10-10-2021 Emergency department patient visit [facility] Start: 10-07-2021 End: 10-08-2021 Emergency department patient visit [facility] Start: 10-05-2021 End: 10-05-2021 Departed Referred [facility] Start: 10-05-2021 Registered Referred [facility] Start: 07-29-2021 End: 07-29-2021 Departed Referred [facility] Start: 04-20-2021 Registered Referred [facility] Start: 10-24-2018 End: 10-24-2018 Patient encounter procedure Jeramie Moreau MD Work Phone: [facility] Work Phone: Procedures Date Procedure Procedure [...] views Lumbar Spine 2 or 3 Views [facility] Start: 08-06-2024 XR Lumbar spine 2 or 3 Views [facility] Start: 05-07-2024 Patient referral [facility] Work Phone: Start: 06-28-2023 Patient referral [facility] Work Phone: Start: 06-08-2023 [facility] Start: 11-19-2022 Covid-19 Vaccine ( season) Covid-19 Vaccine ( season) [facility] Start: 11-19-2022 Influenza vaccination Influenza Vaccine (#1) [facility] Start: 11-09-2022 Patient referral [facility] Work Phone: Start: 09-14-2022 Anesthesia anorectal procedure ANESTH ANORECTAL SURGERY [facility] Start: 09-14-2022 Hemorrhoidectomy int & xtrnl 2/> column/jerry REMOVE IN/EX HEM GROUPS 2+ [facility] Start: 09-14-2022 Patient discharge [facility] Start: 04-15-2022 [facility] Start: 03-21-2022 Advance Directive Discussion Advance Directive Discussion [facility] Start: 03-21-2022 Depression Assessment Depression Assessment [facility] Start: 10-19-2021 Lamotrigine measurement [facility] Work Phone: Start: 10-19-2021 Thyroid stimulating hormone measurement [facility] Work Phone: Start: 10-19-2021 Vitamin B12 measurement [facility] Work Phone: Start: 10-07-2021 Lamotrigine measurement [facility] Work Phone: Start: 10-24-2018 End: 10-24-2018 Appointment Appointment [facility] Work Phone: Start: 08-29-2016 Bone Density Screening Bone Density Screening [facility] Start: 08-29-2016 Pneumococcal Vaccine: 65+ (1 - PCV) Pneumococcal Vaccine: 65+ (1 - PCV) [facility] Start: 08-29-2001 Shingrix Vaccine (1 of 2) Shingrix Vaccine (1 of 2) [facility] Start: 08-29-1996 Cologuard (FIT-DNA) Cologuard (FIT-DNA) [facility] Start: 08-29-1996 Colonoscopy Colonoscopy [facility] Start: 08-29-1996 Colorectal Cancer Screening Colorectal Cancer Screening [facility] Start: 08-29-[address] COLONOGRAPHY [facility] Start: 08-29-1996 Diabetes Screening Diabetes Screening [facility] Start: 08-29-1996 Fecal Occult Blood Fecal Occult Blood [facility] Start: 08-29-1996 Lipid 1996 panel - Serum or Plasma Lipid Screening [facility] Start: 08-29-1996 SIGMOIDOSCOPY SIGMOIDOSCOPY [facility] Start: 1991 Mammography Mammogram Screening [facility] Start: 08-29-1970 Urine microalbumin profile DTaP,Tdap,Td Vaccine (1 - Tdap) [facility] Start: 08-29-1969 Hepatitis C Screening Hepatitis C Screening [facility] Bacteria identified in Urine by Culture Urine Culture [facility] Blood ammonia measurement [facility] Blood ammonia measurement [facility] Blood ammonia measurement [facility] Folate [Mass/volume] in Serum or Plasma [facility] Folate [Mass/volume] in Serum or Plasma [facility] Lamotrigine measurement [facility] Work Phone: MR Brain contrast [facility] MR Brain contrast [facility] MR Cervical spine [facility] MR Lumbar spine [facility] Patient Education Crystal [facility] Work Phone: Patient referral [facility] Work Phone: PHENobarbital [Mass/volume] in Serum or Plasma [facility] Primidone measurement [facility] Thiamine measurement [facility] Immunizations Immunization Date Immunization Notes Care Provider Mustapha thomas 06-08-2023 tetanus toxoid, redu chandu diphtheria toxoid, and acellular pertussis vaccine, adsorbed Dr. Claudia Anderson [facility] Payers Date Payer Category Payer Medicare [id number] 2023 Unknown [id number] 2023 Unknown 2023 Self-pay [id number] [address] [facility] MEDICAID [facility]C ARE [facility] MEDICAID [id number] 2020-Present [phone] [place] [id number] Medicaid [id number] 2020 Medicare UHC MEDICARE MYC ARE [facility] MEDICARE [id number] 2020-Present [phone] [address] [place] [address] Medicare [id number] 2020 Unknown [id number] Unknown [id number] Unknown [id number] [id number]2 Unknown [id number] 2.16.840.1.291511.3.579.2.462 Unknown [id number] 2.16.840.1.495205.3.579.2.462 Unknown [id number] 2.16.840.1.547082.3.579.2.462 Unknown [id number] 2.16.840.1.932842.3.579.2.462 Unknown [id number] 2.16.840.1.502818.3.579.2.462 Unknown [id number] 2.16.840.1.078011.3.579.2.462 Unknown [id number] 2.16.840.1.370680.3.579.2.462 Unknown [id number] 2.16.840.1.312983.3.579.2.462 Unknown [id number] 2.16.840.1.283561.3.579.2.462 Unknown [id number] 2.16.840.1.108884.3.579.2.462 Unknown [id number] 2.16.840.1.793798.3.579.2.462 Unknown [id number] 2.16.840.1.715608.3.579.2.462 Unknown [id number] 2.840.1.879906.3.579.2.462 Unknown [id number] 2.0.1.437091.3.579.2.462 Unknown [id number] 2.840.1.690691.3.579.2.462 Unknown [id number] 2.0.1.921326.3.579.2.462 Unknown [id number] 2.840.1.744123.3.579.2.462 Social History Date Type Detail Facility Start: 1950 Sex Assigned At Female [facility] Start: 10-07-2021 End: 02-28-2023 Tobacco smoking status WIIS Unknown if ever smoked [facility] Start: 09-10-2020 Tobacco smoking status WIIS Ex-smoker [facility] History of tobacco use Current smoker [facility] Start: 09-10-2020 Tobacco use and exposure Smokeless tobacco non-user [facility] Start: 12-29-2022 Alcohol intake Lifetime non-d josé (finding) [facility] Start: 12-16-2020 End: 03-17-2021 History of Social function [facility] Start: 12-16-2020 End: 03-17-2021 Tobacco use panel [facility] National Score (1-100), lower number is lower risk Not on file [facility] Start: 1950 Sex Assigned At Not on file [facility] Start: 06-28-2023 Tobacco smoking status NHIS Never smoked tobacco (finding) [facility] NEGATED: Highlighted rowStart: 10-24-2018 End: 10-24-2018 Assertion Former smoker [facility] Work Phone: NEGATED: Highlighted row [facility] Goals Date Patient Goal Desired Activity /State Mental Status Date Assessment Result Facility 09-14-2022 Cognitive function Awake;Alert [facility] Work Phone: 09-14-2022 Cognitive function Voice/Name [facility] Work Phone: 04-15-2022 Cognitive function Voice/Name [facility] Work Phone: 01-18-2022 Cognitive function Voice/Name [facility] Work Phone: Clinical Notes 11-21-2021 to 08-07-2024 Note Date & Type Note Facility 08-07-2024 Radiology Diagnostic study note [facility] Imaging Services [address] [place] [address] Lumbar Spine 2 or 3 Views MR#: [id number] Acct: [id number] Name: CANDI AGUILAR Rep #: [id number] : 1950 F 73 From: Humberto Rojas MD PCP: Claudia Anderson MD Status: REG CLI Study:Lumbar Spine 2 or 3 Views Date of Exam: 08/06/24 Exam# [id number] Ordering Dr: Jeffy Bran MD PROCEDURE: LUMBAR SPINE 2 OR 3 VIEWS 08/06/2024 REASON FOR EXAM: SPONDYLOSIS WITHOUT MYELOPATHY OR RADICULOPATHY, LUMBAR REGION TECHNIQUE: 2 view(s) of the lumbar spine COMPARISON: 05/27/2023 FINDINGS: 5 gdg-rkx-ivdoegz lumbar vertebral body types identified. No acute fracture or malalignment. There is again note of a remote moderate T11 compression deformity with anterior wedging, unchanged. L1-2 moderate disc space narrowing L2-3 ldpv-ba-wvyprsup disc space narrowing with degenerative endplate change L3-4 uawjfont-gs-pelyqi disc space narrowing with degenerative endplate change L4-5 kvuq-ta-rimvdcxz disc space narrowing and degenerative endplate change Lower lumbar facet degenerative changes RAD/Lumbar Spine 2 or 3 Views IMPRESSION: No significant interval change in appearance of multilevel spondylosis/discogenic change as above. Reading Location: [id number] CC: Dr. Kendra Bran MD; Claudia Anderson MD ~ Valve Repairer: Signed [facility] 05-07-2024 Evaluation note Diagnosis Onset Date Resolution [...] mobility chronic August 06, 2024 1 :52pm [facility] Work Phone: 1(243) 996-647802-17-2025 Evaluation note* Diagnosis Onset Date Resolution Status [...] back pain chronic August 06, 025 1:52pm [facility] Work Phone: 1(573) 396-188803-21-2024 Discharge summary Author Bart Mares [facility] June 08, 2023 11:45pm Note Date/Time June 08, 2023 11: 21pm [facility] Medical Records Department [address] [place] [address] Emergency Department Summary 06/08/23 MR#: [id number] Acct: [id number] Name: CANDI AGUILAR ANN Rep #:[id number] : 1950 72 From: Bart Mares MD [...] is an elderly woman who resides at skilled nursing. She was running to therestroom. She was using her walker. She tripped over her walker. She fell. She sustained a abrasion lateral right brow and complains of left hip pain. There was no loss of conscious. She is on no antithrombotic or anticoagulant. Tetanus Immunization: Unknown Prior similar symptoms: Yes Recent Illness/Hospitalization: No PFSH [facility] Medical History Alzheimer's dementia Anxiety Arthritis Asthma Back pain Bipolar disorder Bladder disease Chronic constipation Dementia Essential tremor Gastric reflux High cholesterol Hx of hemorrhoids Insomnia Lives in skilled nursing Non-smoker Thyroid disease Home Medications aspirin 81 [...] dibucaine 1 % rectal ointment 1 applic GA TID PRN hemorrhoids #56 grams 09/28/22[Rx Last [...] There is no clonus or Babinski sign. [place] Coma Scale: document GCS findings Spontaneous Obeys Commands Oriented 15 Sensorium / Orientation: alert Psych mental status grossly normal and thought process normal Skin Skin Narrative: Contusion abrasion right brow Rashes: no rashes Trauma: abrasion MDM MDM MDM Narrative Medical decision making narrative: With no loss of conscious. Not amnestic on no antithrombotic or anticoagulant other than a baby aspirin per the [place] CT head rule imaging of the head [...] 6RF dibucaine 1 % ointment 1 applic GA TID PRN (Reason: hemorrhoids) Qty: 56 0RF [...] your Primary Care Provider. Call [facility] ([phone]) or report to the closest Emergency Room. Call 911 if necessary. 06/08/23 2345 <Electronically signed by Bart Mares MD> Cosigner Signature (if applicable): CC: Claudia Anderson MD ~ Signed [facility] Work Phone: 1(986) 443-204910-18-2023 NoteHNO ID: [id number] Author: Sabrina Welch MD Service: ? Author [...] all of its relevant components. Sabrina Welch, [facility]10-11-2023 NoteHNO ID: [id number] Author: Sabrina Welch MD Service: ? Author [...] all of its relevant components. Sabrina Welch, [facility]10-11-2023 Instructions* Patient Instructions* Sabrina Welch MD - 12/29/2022 2:02 PM EDT Images from the original note were not included. [facility] History of Present illness Narrative* Sabrina Welch [...] -Do not rub eyes! -follow-up Dr. Shen -mn as needed. to consider punctal plugs if [...] components. Sabrina Welch MD [facility]2023 Procedure [facility]06-27-2023 History and physical note Author Dr. Mckeon [facility] September 14, 2022 10:52am Note Date/Time September 14, 2022 10:5 2am [facility] Medical Records Department [address] [place] [address] History & Physical Exam 09/14/22 1051 MR#: [id number] Acct: [id number] Name: CANDI AGUILAR Rep #:[id number] : 1950 72 From: Willy suarez MD PCP: Claudia Anderson MD Status:[facility] Location: [place] [address] History and Physical Date of Admission: 09/14/22 [...] for 5 days. Willy Mckeon MD Pager: [facility] [address] [place] [address], [address] [place] [phone] Office: I have examined the patient and the H&P has been reviewed. There are no clinicalchanges since date of exam. 09/14/22 1052 <Electronically signed by Willy Mckeon MD> Cosigner Signature (if applicable): CC: Dr. Willy Mckeon MD; Claudai Anderson MD~ Signed [facility] Work Phone: 1(120) 171-133601-27-[address] Ocampo [facility] April 16, 2022 12:31am Note Date/Time April 15, 2022 1 0:18pm [facility] Medical Records Department [address] [place] [address] Emergency Department Summary 04/15/22 MR#: [id number] Acct: [id number] Name: CANDI AGUILAR Rep #:[id number] : 1950 71 From: David Willams PCP: Dr. Addi Tatum DO Status:RE G ER Location: ED HPI History of Present Illness Chief Complaint: Mental Status Change Informant: EMS and SNF Narrative Narrative: Patient brought in by EMS from [facility] for reported altered mental status throughout the [...] 4 times daily from 3 times daily. [facility] Medical History Alzheimer's dementia Anxiety Asthma High [...] % (Auto) 50.0 Lymph % (Auto) 32.4 Mclean % (Auto) 12.1 H Eos % (Auto) [...] Color Urine Clarity Urine pH Ur Specific [place] Urine Protein Urine Glucose (UA) Urine Ketones Urine Occult Blood Urine Nitrite Urine Bilirubin Urine Urobilinogen Ur Leukocyte Esterase Urine RBC Urine WBC Ur Squamous Epith Cells Urine Bacteria Urine Mucus 04/15/22 22:17 WBC RBC Hgb Hct MCV MCH MCHC RDW Std Deviation RDW Coeff of Krystal Plt Count MPV Immature Gran % (Auto) Neut % (Auto) Lymph % (Auto) Mclean % (Auto) Eos % (Auto) Baso % [...] Clarity Clear Urine pH 5.0 Ur Specific [place] 1.020 Urine Protein 15 H Urine Glucose [...] 22:57 EST Reading Location ID and State: [employer] / [place] Tel , Service support , Thoracic Spine [...] 23:05 EST Reading Location ID and State: [employer] / [place] Tel , Service support , Chest X-Ray 04/15/22 22:30 IMPRESSION: Few scattered patchy opacities could represent infection the correct clinical setting. Severe compression deformity of T11. Refer to thoracic CT report for more details. Electronically Signed: Jackson Garcia MD at 23:06 EST Reading Location ID and State: [employer] / [place] Tel , Service support , Pelvis X-Ray 04/15/22 22:30 IMPRESSION: No evidence of displaced pelvic or hip fracture. Moderate degenerative changes of the bilateral hips. Electronically Signed: Jackson Garcia MD at 23:07 EST Reading Location ID and State: [id number] / [employer] Tel , Service support , EKG Initial EKG: Attestation: I personally reviewed and interpreted this EKG as follows: Comments: Sinus rate of 59, no ST or T wave changes. No signs of heart block. QTc 425. Discharge Plan Triage Chief Complaint: Mental Status Change ED Provider: David Oacmpo Dx/Rx/DC Orders Clinical Impression: Compression fracture of [...] your Primary Care Provider. Call [facility] ([phone]) or report to the closest Emergency Room. Call 911 if necessary. 04/16/2230 <Electronically signed by David Willams> Cosigner Signature (if applicable): CC: Dr. Addi Tatum DO ~ Signed [facility] Work Phone: 1(153) 742-757509-03-2022 Hospital Discharge instructions Additional Instructions Please continue all of your medications as previously prescribed. You will be sore after the fall for typically about 7 to 10 days. If symptoms are lasting longer than this or worsen please return to the ER or see your family doctor for repeat evaluation.[facility] Work Phone: Discharge summary Author Dr. Mckeon [facility] September 14, 2022 1:14pm Note Date/Time September 14, 2022 1:11 pm [facility] Medical Records Department [address] [place] [address] Instructions for Home/Discharge Instructions 09/14/22 1310 MR#: [id number] Acct: [id number] Name: CANDI AGUILAR ANN Rep #:[id number] : 1950 72 From: Willy suarez MD PCP: Claudia Anderson MD Status:REG [facility] Discharge Instructions Procedure Rectal Surgery Diet Discharge [...] to schedule 2 week follow up appointment. [phone] Test Results: Test results from this visit [...] Care 09/14/22 1314<Electronically signed by Willy Mckeon MD>Wlily Mckeon MD CC: Claudia Anderson MD ~ Signed [facility] Work Phone: evaluation noteNo assessment information available [facility] Work Phone: evaluation note* Diagnosis Onset Date Resolution Status Low back pain acute Myalgia acute [facility] Work Phone: evaluation note* Diagnosis Onset Date Resolution Status Myalgia acute Abnormality of gait and mobility chronic Alzheimer's dementia chronic Essential tremor chronic Low back pain chronic Lumbar radiculopathy chronic [facility] Work Phone: evaluation note* Diagnosis Onset Date Resolution Status Myalgia acute Abnormality of gait and mobility chronic Alzheimer's dementia chronic Essential tremor chronic Low back pain chronic Lumbar radiculopathy chronic Bleeding hemorrhoids acute [facility] Work Phone: evaluation note* Diagnosis Onset Date Resolution Status Bleeding hemorrhoids acute Bleeding hemorrhoids acute Bleeding hemorrhoids acute Hyperammonemia acute Thoracic compression fracture acute Abnormality of gait and mobility chronic Alzheimer's dementia chronic Essential tremor chronic Low back pain chronic Lumbar radiculopathy chronic [facility] Work Phone: evaluation note* Diagnosis Onset Date Resolution Status Bleeding hemorrhoids acute Bleeding hemorrhoids acute Bleeding hemorrhoids acute Hyperammonemia acute Thoracic compression fracture acute Abnormality of gait and mobility chronic Alzheimer's dementia chronic Essential tremor chronic Low back pain chronic Lumbar radiculopathy chronic Myalgia acute Rib pain on right side acute Low back pain chronic [facility] Work Phone: Evaluation note* Diagnosis Onset Date [...] right side acute Thoracic compression fracture acute [facility] Work Phone: Evaluation note* Diagnosis Right posterior capsular opacification- Primary After-cataract, unspecified 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 Dry eye syndrome of both eyes Pseudophakia Lens replaced by other means [facility] Diagnosis Onset Date Resolution Status Hyperammonemia acute Thoracic compression fracture acute Abnormality of gait and mobility chronic Alzheimer's dementia chronic Essential tremor chronic Low back pain chronic Lumbar radiculopathy chronic Myalgia acute Rib pain on right side acute Low back pain chronic Rib pain on right side acute Thoracic compression fracture acute [facility] Work Phone: Evaluation note* Diagnosis Onset Date Resolution Status Myalgia acute Right shoulder pain acute Lumbar radiculopathy chronic Acute bilateral low back pain without sciatica acute Calcific tendonitis of left shoulder acute [facility] Work Phone: Evaluation note* Diagnosis Onset Date Resolution Status Acute bilateral low back pain without sciatica acute Calcific tendonitis of left shoulder acute Dementia acute Folate deficiency acute Hyperammonemia acute Myalgia acute Right shoulder pain acute Essential tremor chronic Low back pain chronic [facility] Work Phone: Evaluation note* Diagnosis Onset Date Resolution Status Acute bilateral low back pain without sciatica acute Calcific tendonitis of left shoulder acute Dementia acute Folate deficiency acute Hyperammonemia acute Myalgia acute Right shoulder pain acute Essential tremor chronic Low back pain chronic Left shoulder pain acute [facility] Work Phone: Evaluation note* Diagnosis Onset Date [...] Right shoulder pain acute Lumbar radiculopathy chronic [facility] Work Phone: Hospital Discharge instructions Additional Instructions Acute on chronic T11 compression fracture found on imagings. CT scan head and neck lumbar spine negative. Urine negative for infection. Lab's are all stable.[facility] Work Phone: Hospital Discharge instructionsAmbulatory Orders* Orthopedics Location: None Selected [facility] Work Phone: Hospital Discharge instructions Additional Instructions Ice to facial contusion and left hip contusion 6-10 times a day [facility] [place] Summary Purpose Family History No Family History Records Found Relationship Condition Age at Onset Recorded Date/T sergio father Cerebrovascular accident (CVA) Unknown grandfather Cerebrovascular accident (CVA) Unknown Advance Directives No Advanced Directives Records Found Advance Directive Response Recorded Date/ Time Living Will No October 07, 2021 6:51pm Power of Export Sales Manager No October 07 6:51pm Advance Directive Response Recorded Date/ Time Living Will No November 21 10:33pm Power of Export Sales Manager No November 21, 2021 10:33pm Advance Directive Response Recorded Date/ Time Living Will No January 18 7:14pm Power of Export Sales Manager No January 18, 2022 7:14pm Advance Directive Response Recorded Date/ Time Living Will No January 31 11:42pm Power of Export Sales Manager No January 31, 2022 11:42pm Advance Directive Response Recorded Date/ Time Living Will No February 13 10:50pm Power of Export Sales Manager No February 13, 2022 10:50pm Advance Directive Response Recorded Date/ Time Living Will No April 15 9:50pm Power of Export Sales Manager No April 15, 2022 9:50pm Advance Directive Response Recorded Date/ Time Living Will No April 15 10:50pm Power of Export Sales Manager No April 15, 2022 10:50pm Advance Directive Response Recorded Date/ Time Living Will No August 27, 2022 1 0:18pm Power of Export Sales Manager No August 27, 2022 10:18pm Advance Directive Response Recorded Date/ Time Living Will No September 09, 2022 11:13am Power of Export Sales Manager No September 09 11:13am Advance Directive Response Recorded Date/ Time Living Will No November 09 9:20am Power of Export Sales Manager No November 09, 2 023 9:20am Advance Directive Response Recorded Date/ Time Living Will No December 15, 2022 9:43am Power of Export Sales Manager No November 9:43am Advance Directive Response Recorded Date/ Time Living Will No December 15, 2022 8:43am Power of Export Sales Manager No November 8:43am Advance Directive Response Recorded Date/ Time Living Will No June 28, 2023 4:46pm Power of Export Sales Manager No June 27 4:46pm Advance Directive Response Recorded Date/ Time Living Will No June 28, 2023 4:46pm Do you have a Healthcare Power of Export Sales Manager? No June 28, 2023 4:46pm Chief Complaint Chief Complaint Description Start Date left hip pain Preliminary chief co mplaint data, not yet signed by the author as of Instructions Instruction Description Start Date Please follow-up with Primar Care Physician or Criminal Justice Lawyer for treatment or adjustment of medication regarding [...] Complaint and Reason for Visit Chief Complaint SNF LAB WOR K Chief Complaint FALL Chief Complaint FALL fall Chief Complaint FALL fall LAB WORK LAB WORK SNF LAB WORK SNF LAB WORK Chief Complaint FALL fall LAB WORK LAB WORK SNF LAB WORK SNF LAB WORK fall Chief Complaint FALL fall LAB WORK LAB WORK SNF LAB WORK SNF LAB WORK SNF LABWORK fall Chief Complaint FALL fall LAB WORK LAB WORK SNF LAB WORK SNF LAB WORK SNF LABWORK SNF LABWORK SNF LABWORK fall SNF LAB WORK Chief Complaint FALL fall LAB WORK LAB WORK SNF LAB WORK SNF LAB WORK SNF LABWORK SNF LABWORK SNF LABWORK fall SNF LAB WORK LAB WORK LAB WORK LABWORK Chief Complaint FALL fall LAB WORK LAB WORK SNF LAB WORK SNF LAB WORK SNF LABWORK SNF LABWORK SNF LABWORK fall SNF LAB WORK LAB WORK LAB WORK LABWORK SNF LAB WORK SNF LAB WORK Chief Complaint FALL fall LAB WORK LAB WORK SNF LAB WORK SNF LAB WORK SNF LABWORK SNF LABWORK SNF LABWORK fall SNF LAB WORK LAB WORK LAB WORK LABWORK SNF LAB WORK SNF LAB WORK FALL Chief Complaint FALL fall LAB WORK LAB WORK SNF LAB WORK SNF LAB WORK SNF LABWORK SNF LABWORK SNF LABWORK fall SNF LAB WORK LAB WORK LAB WORK LABWORK SNF LAB WORK SNF LAB WORK FALL fall Chief Complaint SNF LAB WOR K SNF LAB WORK SNF LABWORK SNF LABWORK SNF LABWORK fall SNF LAB WORK LAB WORK LAB WORK LABWORK SNF LAB WORK SNF LAB WORK FALL fall SNF LAB WORK fall Chief Complaint SNF LAB WOR K SNF LAB WORK FALL fall SNF LAB WORK fall SNF LABWORK LABWORK SNF LABWORK altered mental status Chief Complaint SNF LAB WOR K SNF LAB WORK FALL fall SNF LAB WORK fall SNF LABWORK LABWORK SNF LABWORK SNF LABWORK altered mental status Chief Complaint SNF LAB WOR K SNF LAB WORK FALL fall SNF LAB WORK fall SNF LABWORK LABWORK SNF LABWORK SNF LABWORK SNF LAB WORK altered mental status Chief Complaint FALL fall SNF LAB WORK fall SNF LABWORK LABWORK SNF LABWORK SNF LABWORK SNF LAB WORK altered mental status SNF LABWORK Chief Complaint FALL fall SNF LAB WORK fall SNF LABWORK LABWORK SNF LABWORK SNF LABWORK SNF LAB WORK altered mental status SNF LABWORK LABWORK Chief Complaint LABWORK SNF LABWORK SNF LABWORK SNF LAB WORK altered mental status SNF LABWORK LABWORK SNF LABWORK SNF LAB WORK SNF LABWORK SNF LABWORK Chief Complaint LABWORK SNF LABWORK SNF LABWORK SNF LAB WORK altered mental status SNF LABWORK LABWORK SNF LABWORK SNF LAB WORK SNF LABWORK LABWORK SNF LABWORK Chief Complaint LABWORK SNF LABWORK SNF LABWORK SNF LAB WORK altered mental status SNF LABWORK LABWORK SNF LABWORK LABWORK SNF LAB WORK SNF LABWORK LABWORK SNF LABWORK SNF LABWORK SNF LAB WORK Chief Complaint LABWORK SNF LABWORK SNF LABWORK SNF LAB WORK altered mental status SNF LABWORK LABWORK SNF LABWORK LABWORK SNF LAB WORK SNF LABWORK LABWORK SNF LABWORK SNF LABWORK SNF LAB WORK LABWORK Chief Complaint SNF LABWORK SNF LAB WORK altered mental status SNF LABWORK LABWORK SNF LABWORK LABWORK SNF LAB WORK SNF LABWORK LABWORK SNF LABWORK SNF LABWORK SNF LAB WORK LABWORK SNF LABWORK RECURRENT FALLS, ALZHEIMER'S SNF LAB WORK Reason for Visit Low back pain Myalgia Chief Complaint SNF LABWORK SNF LAB WORK altered mental status SNF LABWORK LABWORK SNF LABWORK LABWORK SNF LAB WORK SNF LABWORK LABWORK SNF LABWORK SNF LABWORK SNF LAB WORK LABWORK SNF LABWORK RECURRENT FALLS, ALZHEIMER'S SNF LAB WORK SNF LAB WORK Reason for Visit Myalgia Abnormality of gait and mobility Alzheimer's dementia Essential tremor Low back pain Lumbar radiculopathy Chief Complaint SNF LABWORK LABWORK SNF LAB WORK SNF LABWORK LABWORK SNF LABWORK SNF LABWORK SNF LAB WORK LABWORK SNF LABWORK RECURRENT FALLS, ALZHEIMER'S SNF LAB WORK SNF LAB WORK SNF LAB WORK SNF LAB WORK LABWORK NECK BACK PAIN SNF LABWORK SNF LAB WORK SNF LAB WORK freq falls LABWORK Reason for Visit Myalgia Abnormality of gait and mobility Alzheimer's dementia Essential tremor Low back pain Lumbar radiculopathy Chief Complaint SNF LAB WOR K SNF LABWORK LABWORK SNF LABWORK SNF LABWORK SNF LAB WORK LABWORK SNF LABWORK RECURRENT FALLS, ALZHEIMER'S SNF LAB WORK SNF LAB WORK SNF LAB WORK SNF LAB WORK LABWORK NECK BACK PAIN SNF LABWORK SNF LAB WORK SNF LAB WORK SNF LAB WORK freq falls LABWORK HEMORRHOIDS LABWORK HEMORRHOIDECTOMY HEMORRHOIDECTOMY Reason for Visit Myalgia Abnormality of gait and mobility Alzheimer's dementia Essential tremor Low back pain Lumbar radiculopathy Bleeding hemorrhoids Chief Complaint SNF LAB WOR K SNF LAB WORK LABWORK NECK BACK PAIN SNF LABWORK SNF LAB WORK SNF LAB WORK SNF LAB WORK freq falls LABWORK HEMORRHOIDS LABWORK HEMORRHOIDECTOMY HEMORRHOIDECTOMY SNF LAB WORK LABWORK HEMORRHOIDECTOMY 09/14 LABWORK S/P HEMORRHOIDECTOMY 4 M FU Reason for Visit Bleeding hemorrhoids Bleeding hemorrhoids Bleeding hemorrhoids Hyperammonemia Thoracic compression fracture Abnormality of gait and mobility Alzheimer's dementia Essential tremor Low back pain Lumbar radiculopathy Chief Complaint SNF LAB WOR K LABWORK NECK BACK PAIN SNF LABWORK SNF LAB WORK SNF LAB WORK SNF LAB WORK freq falls LABWORK HEMORRHOIDS LABWORK HEMORRHOIDECTOMY HEMORRHOIDECTOMY SNF LAB WORK LABWORK HEMORRHOIDECTOMY 09/14 LABWORK S/P HEMORRHOIDECTOMY 4 M FU TRIGGER POINT INJ eorder Reason for Visit Bleeding hemorrhoids Bleeding hemorrhoids Bleeding hemorrhoids Hyperammonemia Thoracic compression fracture Abnormality of gait and mobility Alzheimer's dementia Essential tremor Low back pain Lumbar radiculopathy Myalgia Rib pain on right side Low back pain Chief Complaint SNF LAB WOR K SNF LAB WORK freq falls LABWORK HEMORRHOIDS LABWORK HEMORRHOIDECTOMY HEMORRHOIDECTOMY SNF LAB WORK LABWORK HEMORRHOIDECTOMY 09/14 LABWORK S/P [...] Chief Complaint LABWORK HEMORRHOIDS LABWORK HEMORRHOIDECTOMY HEMORRHOIDECTOMY SNF LAB WORK LABWORK HEMORRHOIDECTOMY 09/14 LABWORK S/P HEMORRHOIDECTOMY 4 M FU LABWORK TRIGGER POINT INJ eorder THORASIC Room 3 fall SNF LABWORK Reason for Visit Bleeding hemorrhoids Bleeding hemorrhoids Bleeding hemorrhoids Hyperammonemia Thoracic compression fracture Abnormality of gait and mobility Alzheimer's dementia Essential tremor Low back pain Lumbar radiculopathy Myalgia Rib pain on right side Low back pain Rib pain on right side Thoracic compression fracture Chief Complaint HEMORRHOIDS LABWORK HEMORRHOIDECTOMY HEMORRHOIDECTOMY SNF LAB WORK LABWORK HEMORRHOIDECTOMY 09/14 LABWORK S/P HEMORRHOIDECTOMY 4 M FU LABWORK TRIGGER PO[place] INJ eorder THORASIC Room 3 fall SNF LABWORK SNF LAB WORK Reason for Visit Bleeding hemorrhoids Bleeding hemorrhoids Bleeding hemorrhoids Hyperammonemia Thoracic compression fracture Abnormality of gait and mobility Alzheimer's dementia Essential tremor Low back pain Lumbar radiculopathy Myalgia Rib pain on right side Low back pain Rib pain on right side Thoracic compression fracture Chief Complaint 4 M FU LABWORK [place]IGGER [place] INJ eorder THORASIC Room 3 fall SNF LABWORK SNF LAB WORK SNF LAB WORK SNF LABWORK Reason for Visit Hyperammonemia Thoracic compression fracture Abnormality of gait and mobility Alzheimer's dementia Essential tremor Low back pain Lumbar radiculopathy Myalgia Rib pain on right side Low back pain Rib pain on right side Thoracic compression fracture Chief Complaint 4 M FU EORDER SNF LAB WORK THORACIC SPINE room 4 falls Reason for Visit Myalgia Right shoulder pain Lumbar radiculopathy Acute bilateral low back pain without sciatica Calcific tendonitis of left shoulder Chief Complaint 4 M FU EORDER SNF LAB WORK THORACIC SPINE room 4 LABWORK falls Reason for Visit Myalgia Right shoulder pain Lumbar radiculopathy Acute bilateral low back pain without sciatica Calcific tendonitis of left shoulder Chief Complaint 4 M FU EORDER SNF LAB WORK THORACIC SPINE room 4 LABWORK falls NEW ONSET A-FIB, TACHYCARDIA Reason for Visit Myalgia Right shoulder pain Lumbar radiculopathy Acute bilateral low back pain without sciatica Calcific tendonitis of left shoulder Chief Complaint SNF LAB WOR K THORACIC SPINE room 4 LABWORK falls LABWORK NEW ONSET A-FIB, TACHYCARDIA Trigger point injections Reason for Visit Acute bilateral low back pain without sciatica Calcific tendonitis of left shoulder Dementia Folate deficiency Hyperammonemia Myalgia Right shoulder pain Essential tremor Low back pain Chief Complaint SNF LAB WOR K THORACIC SPINE room 4 LABWORK falls LABWORK NEW ONSET A-FIB, TACHYCARDIA Trigger point injections RIGHT SHOULDER SNF LAB WORK SNF LAB WORK Reason for Visit Acute bilateral low back pain without sciatica Calcific tendonitis of left shoulder Dementia Folate deficiency Hyperammonemia Myalgia Right shoulder pain Essential tremor Low back pain Left shoulder pain Chief Complaint 4 M FU LABWORK [place]IGGER [place] INJ eorder THORASIC Room 3 fall SNF LABWORK SNF LAB WORK SNF LAB WORK SNF LABWORK 4 M FU EORDER Reason for [...] 1:44pm LABWORK June 25, 2024 5:00 am SNF LAB WORK July 12, 2024 6 :20am [...] section and content) DATE CREATED AUTHOR 10/28/2018 [facility] DATE CREATED AUTHOR AUTHOR'S ORGANIZ ATION 05/04/2022 [facility] DATE CREATED AUTHOR AUTHOR'S ORGANIZ ATION 01/07/2023 [facility] DATE CREATED AUTHOR AUTHOR'S ORGANIZ ATION 08/23/2024 [facility] Reason for Visit (unrecogniz ed section and [...] Primary Care Provider, Referring Provider Active Dr. Willy Mckeon MD Attending Provider Active Team Status: [...] Dr. Shelton Conway MD Attending Provider Active Yard Coupler Relationship Specialty Start Date End Date Claudia [...] BE BASED ON THE PRIMARY CLINICAL RECORDS. [facility] provides no warranty or guarantee of the accuracy or completeness of information in this document.
[2024-08-27 09:03] LABS: Vitamin B12 221 pg/mL (180-914)
== END ==
LOC: OLS.SW 05:00
PROVIDERS: PCP Internal Medicine; Visit Provider Internal Medicine
DX: D51.9 Vitamin B12 deficiency anemia, unspecified (principal)
CPT/HCPCS: 36415; 82607

== ENCOUNTER → 2024-09-03 | Outpatient (CLI) | payer MEDICARE, MEDICAID, SELFPAY ==
--- NOTE | 2024-09-03 16:01 | RAD_ITS ---
PROCEDURE: LUMBAR SPINE 2 OR 3 VIEWS 09/03/2024 REASON FOR EXAM: FALL TECHNIQUE: LUMBAR SPINE 2 OR 3 VIEWS COMPARISON: 08/06/2024. FINDINGS: Mild osteopenia. Mild S shaped degenerative scoliosis. Grade 1 anterolisthesis of L4 on L5 measuring 4.7 mm. Unchanged mild chronic compression deformity of T11 vertebral bodies. Interval appearance of mild compression deformity of L1 vertebral body. No evidence of associated retropulsion or secondary canal stenosis. Unchanged exaggerated lumbar lordosis. There are diffuse spondylotic changes. Findings are demonstrated to by diffuse disc space narrowing, osteophyte formation and degenerative endplate sclerosis. There is diffuse facet joint arthropathy with secondary bilateral neural foramina narrowing. No acute dislocation is seen. No aggressive lytic or blastic bony lesion is noted. RAD/Lumbar Spine 2 or 3 Views IMPRESSION: Mild osteopenia. Mild S shaped degenerative scoliosis. Grade 1 anterolisthesis of L4 on L5 measuring 4.7 mm. Unchanged mild chronic compression deformity of T11 vertebral bodies. Interval appearance of mild compression deformity of L1 vertebral body. No evid ence of associated retropulsion or secondary canal stenosis. Unchanged exaggerated lumbar lordosis. Reading Location: [facility]
== END | disposition home or self-care (01) ==
LOC: RAD 15:52
PROVIDERS: PCP Internal Medicine; Referring Provider Anesthesiology Pain Medicine; Visit Provider Anesthesiology Pain Medicine
DX: M85.80 Other specified disorders of bone density and structure, unspecified site (principal); W19.XXXA Unspecified fall, initial encounter; M41.9 Scoliosis, unspecified
CPT/HCPCS: 72100

== ENCOUNTER → 2024-10-25 04:00 | Outpatient (REF) | payer MEDICARE, MEDICAID, SELFPAY ==
--- OUTSIDE RECORDS SUMMARY | 2024-10-25 04:40 | XMS RPT_ITS | CCD ---
Author Organization [facility] CliniSyoh Care Team Providers Care Bariatric Physician Name Role Phone Jeramie Moreau MD Unavailable Dr. Claudia Anderson Referring Provider Unavailable Dr. Medardo Mayo Attending Provider Dr. Addi Tatum Primary Care Provider Dr. Medardo Mayo Referring Provider Dr. Medardo Mayo Attending Provider Dr. Medardo Mayo Referring Provider Dr. Addi Tatum Primary Care Provider Dr. Claudia Anderson Primary Care Provider UnavailDr. Claudia Rios Referring Provider Unavailable Dr. Willy Mckeon Attending Provider Dr. Willy Mckeon Referring Provider Dr. Willy Mckeno Other Provider Dr. Claudia Anderson Primary Care Provider UnavailDr. Claudia Rios Referring Provider Unavailable Dr. Willy Mckeon Attending Provider Dr. Willy Mckeon Referring Provider [phone] Dr. Willy Mckeon Other Provider Dr. Addi Tatum Referring Provider Dr. Medardo Mayo Attending Provider Dr. Medardo Mayo Referring Provider Dr. Piotr Espinal Attending Provider Dr. Shelton Conway Attending Provider Claudia Anderson MD Primary Care Provider SABRINA WELCH Attending Unavailable CLAUDIA ANDERSON Primary Care Unavailable SABRINA WELCH Attending Unavailable SABRINA WELCH Referring Unavailable CLAUDIA ANDERSON Primary Care Unavailable Dr. Addi Tatum Referring Provider [phone] Medardo Mayo Attending Provider [phone] Claudia Anderson Primary Care Provider UnavailDr. Medardo Goodwin Referring Provider Monica, Dr. Taylor Referring Provider Unavailable Dr. Piotr Espinal Attending Provider [phone] Dr. Shelton Conway Attending Provider [phone] Monica, Dr. Taylor Primary Care Provider Unavailjeffy Anderson, Dr. Taylor Referring Provider Unavailable Dr. Medardo Mayo Attending Provider Dr. Piotr Espinal Attending Provider Dr. Shelton Conway Attending Provider [phone] Monica, Dr. Taylor Primary Care Provider Unavaila marlon Anderson, Dr. Tyalor Referring Provider Unavailable Dr. Medardo Mayo Attending Provider Dr. Medardo Mayo Referring Provider MD True Rader Attending Provider Monica PANDA, Dr. Taylor Primary Care Provider Cindyva brittaney Anderson MD, Dr. Taylor Attending Provider Unavailjeffy Mayo MD, Dr. Batres Attending Provider [phone] Maria Esther PANDA, Dr. Batres Referring Provider [phone] Ezio PANDA, Dr. Biswas Attending Provider Unavail able Shant PANDA, Dr. Gardner Attending Provider Shant PANDA, Dr. Gardner Referring Provider Monica PANDA, Dr. Taylor Referring Provider Unavailjeffy Anderson MD, Dr. Claudia Primary Care Provider Unapete Anderson MD, Dr. Taylor Attending Provider Unavaila marlon Anderson MD, Dr. Taylor Primary Care Provider Unava brittaney Mayo MD, Dr. Batres Attending Provider Maria Esther PANDA, Dr. Batres Referring Provider [phone] Gudla, Claudia Primary Care Unavailable Gudla Laney DYSONyothi Attending Unavailable Gudla, Claudia Primary Care Unavailable Gudla Laney DYSONyothi Attending Unavailable Gudla, Claudia Primary Care Unavailable True June Attending Unavailable Gudla, Claudia Primary Care Unavailable True June Attending Unavailable Gudla, Claudia Primary Care Unavailable Gudla Claudia DYSON Attending Unavailable Gudla, Claudia Primary Care Unavailable Gudla Claudia DYSON Attending Unavailable Gudla, Claudia Primary Care Unavailable Gudla Claudia DYSON Attending Unavailable Gudla, Claudia Primary Care Unavailable Gudla Claudia DYSON Attending Unavailable Gudla, Claudia Primary Care Unavailable Gudla Claudia DYSON Attending Unavailable Gudla, Claudia Primary Care Unavailable Gudla Claudia DYSON Attending Unavailable SulmadourMedardo Referring Unavailable Gudla, Claudia Primary Care Unavailable Medardo Mayo Attending Unavailable Gudla, Claudia Primary Care Unavailable Medardo Mayo Referring Unavailable Medardo Mayo Attending Unavailable Gudla, Claudia Primary Care Unavailable Melinda Branman Referring Unavailable Kendra Bran Attending Unavailable Gudla, Claudia Primary Care Unavailable True Rader Referring Unavailable True Rader Attending Unavailable Medardo Mayo Referring Unavailable Gudla, Claudia Primary Care Unavailable Medardo Mayo Attending Unavailable Gudla, Claudia Primary Care Unavailable Gudla, Claudia Referring Unavailable True Rader Attending Unavailable Medardo Mayo Referring Unavailable Gudla, Claudia Primary Care Unavailable Medardo Mayo Attending Unavailable Sulmadolilibeth, Medardo Referring Unavailable Gudla, Claudia Primary Care Unavailable Medardo Mayo Attending Unavailable Gudla, Claudia Primary Care Unavailable Medardo Mayo Referring Unavailable Medardo Mayo Attending Unavailable Gudla, Claudia Primary Care Unavailable Kendra Bran Referring Unavailable Kendra Bran Attending Unavailable Allergies Allergy Classification Reported Allergen(s) Allergy Type Date of Onset Reaction(s) Facility (1 source) Codeine Drug Allergy 9 nausea and vomiting [facility] Work Phone: (20 sources) Codeine; Translations: [CODEINE] Drug Allergy 5 Unknown [facility] (1 source) Codeine Drug Allergy 5 [facility] Repository Medications Current Medications Medication Drug [...] 2023 4:34pm take 2 tablets by mo [facility] every six hours as needed acetaminophen (TYLENOL) 325 mg tablet Indications: PCO (posterior capsular opacification), left Take 650 mg by mouth every 6 hours as needed. 0 Active Comment on above: Take 650 mg by mouth every 6 hours as needed. aluminum hydroxide 40 mg/ml / magnesium hydroxide 40 mg/ml oral suspension (4 sources) Start: 5 take 1 mL by mouth every four hours as needed Aluminum-Magnesium Hydroxide 200-200 mg/5 mL suspension Active 30 mL PO Q4H as needed May 07, 2024 1:00am ascorbic acid 500 mg oral tablet (4 sources) Vitamin C Start: 5 take 1 [...] once daily. bisacodyl 10 mg rectal suppository (8 sources) Stimulant Laxative Start: Bisacodyl 10 mg [...] and 1 tablet in PM BUSPIRONE HCL [id number] Kenia Jones LPN Comment on above: Increase to 1 q AM a nd One q pm carboxymethylcellulose sodiu m 5 mg/ml / glycerin 9 mg/ml ophthalmic solution (5 sources) Non-Standardized Chemical Allergen Start: 05-07-19 take [...] Start: 022 cholecalciferol 0.125 mg oral capsule (4 sources) Vitamin D Start: 025 take 1 capsule by mouth once daily Cholecalciferol (Vitamin D3) 125 mcg (5,000 unit) capsule Active 125 ug PO daily August 06, 2024 12:00am dibucaine 0.01 mg/mg rectal ointment (19 sources) Standardized Chemical Allergen Start: 023 Dibucaine 1 % ointment Active 1 NMA RC THREE TIMES A DAY as needed for hemorrhoids 56 September 28, 2022 12:00am docusate sodium 100 mg oral capsule (20 sources) Start: 025 take 1 capsule by mouth twice daily Docusate Sodium 100 mg capsule Active 100 mg PO TWICE A DAY May 07, 2024 2:52pm Start: 07-01-2022 End: 02-17-2025 take 1 capsule by mouth once daily [...] day. docusate sodium 50 mg / sennosides, senior care 8.6 mg oral tablet (20 sources) Start: [...] MG TABS 1 tablet daily DONEPEZIL HCL [id number] Kenia Jones LPN Comment on above: Take 10 mg by mouth. folic acid 1 mg oral tablet (20 sources) Start: 05-07-2024 take 1 tablet by [...] 07, 2024 3:06pm take [address] [facility] three times daily gabapentin (NEURONTIN) 300 mg capsule Take 300 mg by mouth three times a day. 0 Active Comment on above: Take 300 mg by mouth three times a day. glucagon (rdna) 1 mg injection (5 sources) Antihypoglycemic Agent Start: 05-07-2024 Glucagon 1 mg recon soln Active 1 mg SC Q20M as needed May 07, 2024 1:00am until target blood sugar attained glucagon (GVOKE HYPOPEN) 0.5 mg/0.1 mL auto-injector Inject 0.5 mg subcutaneously as needed. 0 Active Comment on above: Inject 0.5 mg subcut aneously as needed. glucose 0.4 mg/mg oral gel (5 sources) Start: 05-07-2024 Dextrose (Glucose Gel) 40 [...] 2022 12:00am ketoconazole 20 mg/ml medicated shampoo (4 sources) Azole Antifungal Start: 5 Ketoconazole 2 [...] 01-18-2022 loperamide hydrochloride 2 mg oral tablet (4 sources) Opioid Agonist Start: 05-07-2024 take 1 tablet by mouth every twenty-four hours Loperamide (Imodium A-D) 2 mg tablet Active 0 PO .COMPLEX May 07, 2024 1:00am 1 - 2 tablets orally; Not to exceed 4 tablets in 24 hrs loratadine 10 mg oral capsule (20 sources) Start: 09-09-2022 take 1 capsule by mouth once daily Loratadine 10 mg Capsule Active 10 mg PO DAILY September 09, 2022 12:00am Start: 01-22-2020 loratadine (CL ARITIN) 10 mg tablet Take 10 mg by mouth. 0 01/22/2020 Active Comment on above: Take 10 mg by mouth. Magnesium Hydroxide (5 sources) Start: 05-07-2024 take 1 mL by [...] hydrochloride 10 mg oral tablet (20 sources) H-jkciwy-R-aspartat e Receptor Antagonist Start: 2 End: 3 take 1 tablet [...] MG TABS 1 tablet daily MEMANTINE HCL [id number] Kenia Jones LPN Comment on above: 2 q AM mineral oil 1000 mg/ml enema (4 sources) Start: 05-07-2024 Mineral Oil (Fleet Mineral Oil) enema Active 118 mL RC daily as needed May 07, 2024 1:00am discard any unused portion Multivitamin preparation (16 sources) Start: 01-18-2022 take 1 tablet by mouth once daily Multivitamin Active 1 TABLET PO DAILY January 17, 2022 11:00pm Start: 01-18-2022 take 1 tablet by kane once daily Multivitamin Active 1 TABLET PO [...] 1 tablet 3 times daily OXYBUTYNIN CHLORIDE [id number] Kenia Jones LPN Comment on above: Take [...] 2022 12:00am take 1 tablet by kane three times daily propranolol (INDERAL) 20 mg [...] MG TABS 1 tablet daily TRAZODONE HCL [id number] Kenia Jones LPN Comment on above: One [...] Start: 01-18-2022 take 1 capsule by mo [facility] once daily Venlafaxine (Effexor Xr) 75 [...] mg / clavulanate 125 mg oral tablet (19 sources) Penicillin-class Antibacterial Start: 09-28-2022 End: 12-02-2022 [...] by mouth. flurbiprofen 100 mg oral tablet (20 sources) Nonsteroidal Anti-inflammatory Drug Start: 3 End: 5 take 1 tablet by mouth three [...] (20 sources) Osmotic Laxative Start: 3 End: take 1 mL by mouth once daily [...] in eyes. linaclotide 0.072 mg oral capsule (16 sources) Guanylate Cyclase-C Agonist Start: 023 End: 024 take 1 capsule by mouth every other day as needed Linaclotide (Linzess) 72 mcg capsule Discontinued 72 ug PO EVERY OTHER DAY as needed July 11, 2023 2:21pm November 17, 2023 10:27am Start: 02-28-2023 take [address] [facility] once daily Linaclotide (Linzess) 72 mcg capsule Active 72 MCG PO DAILY February 28, 2023 12:00am linaclotide (LONNIE ZESS ORAL) Take 72 mcg by mouth. 0 Active Comment on above: Take 72 mcg by mouth . meloxicam 7.5 mg oral tablet (12 sources) Nonsteroidal Anti-inflammatory Drug Start: 5 End: [...] 7:27pm oxyCODONE hydrochloride 5 mg oral tablet (20 sources) Opioid Agonist Start: 09-14-2022 End: 12-02-2022 [...] MG TABS 1 tablet daily SERTRALINE HCL [id number] Kenia Jones PROFILER OPERATOR sodium phosphate,mono-dibasic (FLEET ENEMA RECTAL) (1 source) [...] 09, 2022 7:33pm take 1 tablet by kane th three times daily divalproex DR (DEPAKOTE) [...] Active Problems Problem Classification Problem Date Documented Da te Episodic/Chronic Anxiety disorders (1 source) Generalized anxiety disorder; Translations: [Generalized anxiety disorder] Onset: 04-13-2024 Chronic Cataract (2 sources) After-cataract of right eye; Translations: [Other secondary cataract, right eye] 12-29-2022 Chronic Deficiency and other anemia (1 source) Vitamin B12 deficiency anemia, unspecified; Translations: [Vitamin B12 deficiency anemia, unspecified] Onset: 09-12-2024 Episodic Delirium, dementia, and amnestic and other cognitive disorders (20 sources) Dementia; Translations: [Unspecified dementia without behavioral disturbance] Onset: 01-20-2024 04-16-2022 Chronic Comment on above: ON MED Disorders of lipid metabolism (1 source) Hyperlipidemia, unspecified; Translations: [Hyperlipidemia, unspecified] Onset: 10-15-2024 Chronic E Codes: Fall (20 sources) Fall; Translations: [Unspecified fall, initial encounter] 10-18-2021 Episodic Hemorrhoids (20 sources) Bleeding hemorrhoids; Translations: [Unspecified hemorrhoids] 09-06-2022 Episodic Mood disorders (2 sources) Bipolar disorder, unspecified; Translations: [Major depressive disorder, recurrent, moderate] Onset: 04-13-2024 Chronic Nutritional deficiencies (2 sources) Vitamin D deficiency, unspecified; Translations: [Unspecified protein-calorie malnutrition] Onset: 06-27-2024 Chronic Other bone disease and musculoskeletal deformities (1 source) Other specified disorders of bone density and structure, unspecified site; Translations: [Other specified disorders of bone density and structure, unspecified site] Onset: 09-07-2024 Episodic Other connective tissue disease (20 sources) Muscle pain; Translations: [Myalgia, unspecified site] 07-01-2022 Episodic Other connective tissue disease (19 sources) Myalgia, unspecified site; Translations: [Myalgia and myositis, unspecified] Onset: 09-20-2024 07-01-2022 Episodic Other connective tissue disease (9 sources) Calcific tendinitis of left shoulder; Translations: [Calcific tendinitis of left shoulder] 05-27-2023 Episodic Other connective tissue disease (5 sources) Calcific tendinitis of left shoulder; Translations: [Calcifying tendinitis of shoulder] 05-27-2023 Episodic Other connective tissue disease (8 sources) Recurrent falls ; Translations: [Repeated falls] 08-06-2024 Episodic Other connective tissue disease (1 source) Repeated falls; Translations: [Repeated falls] Onset: 09-20-2024 Episodic Other diseases of bladder and urethra [...] encounter] 02-09-2022 Episodic Other lower respiratory disease (15 sources) Rib pain; Translations: [Pleurodynia] 11-17-2022 Episodic Other nervous system disorders (1 source) Other chronic pain; Translations: [Other chronic pain] Onset: 09-20-2024 Chronic Other nervous system disorders (20 sources) Abnormal gait; Translations: [Unspecified abnormalities of gait and mobility] 07-21-2022 Episodic Other nervous system disorders (20 sources) Tremor; Translations: [Tremor, unspecified] 07-21-2022 Episodic Other nervous system disorders (16 sources) Unspecified abnormalities of gait and mobility; Translations: [Abnormality of gait] Onset: 09-20-2024 07-01-2022 Episodic Other nervous system disorders (3 sources) Dysarthria; Translations: [Dysarthria and anarthria] 08-06-2024 Episodic Other nervous system disorders (1 source) Unsteadiness on feet; Translations: [Unsteadiness on feet] Onset: 08-27-2024 Episodic Other nervous system disorders (1 source) Dysarthria and anarthria; Translations: [Dysarthria and anarthria] Onset: 09-20-2024 Episodic Other non-traumatic joint disorders (6 sources) Pain in left shoulder; Translations: [Left shoulder pain] 07-11-2023 Episodic Other nutritional; endocrine; and metabolic disorders (19 sources) Hyperammonemia; Translations: [Disorder of urea cycle metabolism, unspecified] 11-09-2022 Chronic Other nutritional; endocrine; and metabolic disorders (13 sources) Disorder of urea cycle metabolism, unspecified; 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] Onset: 12-02-2023 11-09-2022 Chronic Residual codes; unclassified (9 sources) Not for resuscitation; Translations: [Do not [...] Translations: [Hypothyroidism, unspecified] Onset: 02-24-2024 Chronic Unclassified (3 sources) M54.50 - Low back pain, unspecified,G89.29 - Other chronic pain Unclassified (1 source) Low back pain, unspecified; Translations: [Low back pain, unspecified] Onset: 09-20-2024 Past or Other Problems Problem Classification Problem Date Documented Da te Episodic/Chronic Nutritional deficiencies (12 sources) Folic acid deficiency; Translations: [Deficiency of other specified B group vitamins] Onset: 06-28-2024 06-29-2023 Episodic Other aftercare (1 source) Other alf (current) drug therapy; Translations: [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] Onset: 06-27-2024 Episodic Other fractures (15 sources) Wedge compression fracture of unspecified thoracic vertebra, initial encounter for closed fracture; Translations: [Closed fracture of dorsal [thoracic] vertebra without mention of spinal cord injury] 11-09-2022 Episodic Other lower respiratory disease (11 sources) Pleurodynia; Translations: [Chest pain, unspecified] 11-17-2022 Episodic Other non-traumatic joint disorders (1 source) Hip pain; Translations: [Pain in left hip] Onset: 10-24-2018 10-24-2018 Episodic Other non-traumatic joint disorders (20 sources) Pain in right shoulder; Translations: [Right shoulder pain] Onset: 06-28-2024 02-28-2023 Episodic Unclassified (1 source) Problem Results Test Name Value Interpretation Reference Range Facility Lumbar Spine 2 or 3 Viewson 09-03-2024 Lumbar Spine 2 or 3 Views [facility] Imaging Services [address] [place] [address] Lumbar Spine 2 or 3 Views MR#: [id number] Acct: [id number] Name: CANDI AGUILAR Rep #: [id number] : 1950 F 74 From: Jasmin gordon MD PCP: Claudia Anderson MD Status: REG CLI Study: Lumbar Spine 2 or 3 Views Date of Exam: Exam# [id number] Ordering Dr: Kendra Bran MD PROCEDURE: LUMBAR SPINE 2 OR 3 VIEWS 09/03/2024 REASON FOR EXAM: FALL TECHNIQUE: LUMBAR SPINE 2 OR 3 VIEWS COMPARISON: 08/06/2024. FINDINGS: Mild osteopenia. Mild S shaped degenerative scoliosis. Grade 1 anterolisthesis of L4 on L5 measuring 4.7 mm. Unchanged mild chronic compression deformity of T11 vertebral bodies. Interval appearance of mild compression deformity of L1 vertebral body. No evidence of associated retropulsion or secondary canal stenosis. Unchanged exaggerated lumbar lordosis. There are diffuse spondylotic changes. Findings are demonstrated to by diffuse disc space narrowing, osteophyte formation and degenerative endplate sclerosis. There is diffuse facet joint arthropathy with secondary bilateral neural foramina narrowing. No acute dislocation is seen. No aggressive lytic or blastic bony lesion is noted. RAD/Lumbar Spine 2 or 3 Views IMPRESSION: Mild osteopenia. Mild S shaped degenerative scoliosis. Grade 1 anterolisthesis of L4 on L5 measuring 4.7 mm. Unchanged mild chronic compression deformity of T11 vertebral bodies. Interval appearance of mild compression deformity of L1 vertebral body. No evidence of associated retropulsion or secondary canal stenosis. Unchanged exaggerated lumbar lordosis. Reading Location: [place] [address] CC: Dr. Kendra Bran MD; Claudia Anderson MD Technical Designer: Signed Normal [facility] Vitamin B12on 08-27-2024 Cobalamin (Vitamin B12) [Mass/Vol] 221 pg/mL Normal 180-914 [facility] Comment on above: Order Comment: 214 Performed By: #### L [id number] #### [facility] [address] [place], [address] Vitamin B12 ser/plasOrdered By: Claudia Anderson on 08-27-2024 Cobalamin (Vitamin B12) [Mass/Vol] 221 pg/mL 180-914 [facility] Brain without Contraston Brain without Contrast [facility] Services [address] [place], [place] [id number] Brain without Contrast MR#: [id number] Acct: [id number] Name: CANDI AGUILAR Rep #: [id number] : 1950 F 73 From: Kavon Graham MD PCP: Claudia Anderson MD Status: REG CLI Study: Brain without Contrast Date of Exam: 08/22/24 Exam# [id number] Ordering Dr: Medardo Mayo MD PROCEDURE: BRAIN [...] collections. The paranasal sinuses are clear. Absent tonto apache ocular lenses. Partial left mastoid effusion. MRI/Brain without Contrast IMPRESSION: No acute intracranial abnormalities. Reading Location: [id number] CC: Dr. Medardo Mayo MD; Claudia Anderson MD Technical Designer: Signed Normal [facility] Magnetic resonance imaging r eportOrdered By: Kavon Graham on 08-22-2024 Study report [facility] Imaging Services [address] [place] [id number] Brain without Contrast MR#: [id number] Acct: [id number] Name: CANDI AGUILAR ANN Rep #: [id number] : 1950 F 73 From: Sher Graham MD PCP: Claudia Anderson MD Status: REG CLI Study:Brain without Contrast Date of Exam: 08/22/24 Exam# [id number] Ordering Dr: Medardo Mayo MD PROCEDURE: BRAIN [...] collections. The paranasal sinuses are clear. Absent tonto apache ocular lenses. Partial left mastoid effusion. MRI/Brain without Contrast IMPRESSION: No acute intracranial abnormalities. Reading Location: [place] [address] CC: Dr. Medardo Mayo MD; Claudia Anderson MD ~ Technical Designer: Signed [facility] TSH DL <= 0.005 mIU/L QnOrde red By: True Holguin on 08-15-2024 TSH Qn 1.280 uIU/mL 0.300-4.200 [facility] Thyroid Stim Hormone (TSH)on 08-15-2024 TSH 1.280 uIU/mL Normal 0.300-4.200 [facility] Comment on above: Order Comment: 214 Performed By: #### L [id number] #### [facility] [address] [facility] [place], [place], [address] Lumbar Spine 2 or 3 Viewson 08-06-2024 Lumbar Spine 2 or 3 Views [facility] Imaging Services [address] [place], [place] [address] Lumbar Spine 2 or 3 Views MR#: [id number] Acct: [id number] Name: CANDI AGUILAR ANN Rep #: [id number] : 1950 F 73 From: Manuel Rojas MD PCP: Claudia Anderson MD Status: REG CLI Study: Lumbar Spine 2 or 3 Views Date of Exam: Exam# [id number] Ordering Dr: Kendra Bran MD PROCEDURE: LUMBAR SPINE 2 OR 3 VIEWS 08/06/2024 REASON FOR EXAM: SPONDYLOSIS WITHOUT MYELOPATHY OR RADICULOPATHY, LUMBAR REGION TECHNIQUE: 2 view(s) of the lumbar spine COMPARISON: 05/27/2023 FINDINGS: 5 tny-pwg-cpfqreg lumbar vertebral body types identified. No acute fracture or malalignment. There is again note of a remote moderate T11 compression deformity with anterior wedging, unchanged. L1-2 moderate disc space narrowing L2-3 lpyi-qm-pgqnivqz disc space narrowing with degenerative endplate change L3-4 uyjxeytl-rv-iykigr disc space narrowing with degenerative endplate change L4-5 zcra-gj-bmdktosp disc space narrowing and degenerative endplate change Lower lumbar facet degenerative changes RAD/Lumbar Spine 2 or 3 Views IMPRESSION: No significant interval change in appearance of multilevel spondylosis/discogeni c change as above. Reading Location: [facility] CC: Dr. Kendra Bran MD; Claudia Anderson MD Technical Designer: Signed Normal [facility] Neurology Visit Reporton Neurology Visit Report [facility] [address], [address] [place] [address] OFFICE VISIT Date of Service: 08/06/24 MR#: [id number] Acct: [id number] Name: CANDI AGUILAR Rep #: [id number] : 1950 Provider: Dr. Medardo hawkins MD Age/Sex: 73/F Location[place] [facility] [place] Status: Signed [facility] Chief Complaint: Details: Note: Candi returns for follow-up visit. She has a history of hyperlipidemia, essential tremor, vitamin D deficiency, dementia, depression, anxiety and bipolar disorder. She resides in a alf facility. She apparently began to have memory difficulty since at least 2012. She has a tendency to forget conversations. She had poor recall of past events. Around 2020, she moved from home to an assisted living arrangement. She had multiple falls and in January 2022 was admitted to a alf facility. She had further falls since her [...] anterior subluxation of L4 and L5.??? Diffuse xylh-fn-dhpffsni spondylitic changes.??? Bilateral multilevel vertebral facet arthropathy [...] multilevel de (more content not included)... Normal [facility] Bilirubin directOrdered By: True Holguin on 07-12-2024 Bilirubin.direct [Mass/Vol] mg/dL 0.00-0.30 [facility] Bilirubin, totalOrdered By: True Hloguin on 07-12-2024 Bilirubin [Mass/Vol] mg/dL 0.00-1.30 [facility] CBC-Complete Blood Cnt No Clare ffon 07-12-2024 Erythrocyte distribution width (RBC) [Ratio] 13.4 % Normal 11.6-14.6 [facility] Comment on above: Performed By: #### L 500.3400, L100.0500 #### [facility] [address] [place], [address] Hematocrit (Bld) [Volume fraction] 35.0 % Low 37-47 [facility] Comment on above: Performed By: #### L 500.3400, L100.0500 #### [facility] [address] [place], [address] Hemoglobin (Bld) [Mass/Vol] 10.9 g/dL Low 12.0-15.0 [facility] Comment on above: Performed By: #### L 500.3400, L100.0500 #### [facility] [address] [place], [address] MCH (RBC) [Entitic mass] 32.8 pg High 27.0-32.0 [facility] Comment on above: Performed By: #### L 500.3400, L100.0500 #### [facility] [address] [place], [address] MCHC (RBC) [Mass/Vol] 31.1 g/dL Low 32-36 [facility] Comment on above: Performed By: #### L 500.3400, L100.0500 #### [facility] [address] [place], [address] MCV (RBC) [Entitic vol] 105.4 fL High 81-99 [facility] Comment on above: Performed By: #### L 500.3400, L100.0500 #### [facility] [address] [place], [address] Platelet mean volume (Bld) [Entitic vol] 10.4 fL Normal 6.2-12.0 [facility] Comment on above: Performed By: #### L 500.3400, L100.0500 #### [facility] [address] [place], [address] Platelets (Bld) [#/Vol] 223 10*3/uL Normal 150-450 [facility] Comment on above: Performed By: #### L 500.3400, L100.0500 #### [facility] [address] [place], [address] RBC (Bld) [#/Vol] 3.32 10*6/uL Low 4.2-5.4 [facility] Comment on above: Performed By: #### L 500.3400, L100.0500 #### [facility] [address] [place], [address] RDW SD 52.5 fl High 35.1-43.9 [facility] Comment on above: Performed By: #### L 500.3400, L100.0500 #### [facility] [address] [place], [address] WBC (Bld) [#/Vol] 6.3 10*3/uL Normal 4.4-11.0 [facility] Comment on above: Performed By: #### L 500.3400, L100.0500 #### [facility] [address] [place], [address] Erythrocyte distribution wid th ratioOrdered By: True Holguin on 07-12-2024 Erythrocyte distribution width (RBC) [Ratio] 13.4 % 11.6-14.6 [facility] Erythrocyte distribution wid th standard deviationOrdered By: True Holguin on 07-12-2024 Erythrocyte distribution width (RBC) [Ratio] 52.5 fl High 35.1-43.9 [facility] Hematocrit Auto (Bld) [Volum e fraction]Ordered By: True Holguin on 07-12-2024 Hematocrit (Bld) [Volume fraction] 35.0 % Low 37-47 [facility] Hemoglobin measurementOrdere d By: rTue Holguin on 07-12-2024 Hemoglobin (Bld) [Mass/Vol] 10.9 g/dL Low 12.0-15.0 [facility] - Chemistry and C hemistry - challengeOrdered By: True Holguin on 07-12-2024 AST [Catalytic activity/Vol] 17 U/L <32 [facility] Liver Profileon 07-12-2024 Albumin [Mass/Vol] 3.2 g/dL Low 3.4-4.8 [facility] Comment on above: Performed By: #### L 500.3400, L100.0500 #### [facility] [address] [place], [address] ALK PHOS 112 U/L High 35-104 [facility] Comment on above: Performed By: #### L 500.3400, L100.0500 #### [facility] [address] [place], [address] ALT [Catalytic activity/Vol] U/L Normal <=34 [facility] Comment on above: Performed By: #### L 500.3400, L100.0500 #### [facility] [address] [place], [address] AST [Catalytic activity/Vol] 17 U/L Normal <=31 [facility] Comment on above: Performed By: #### L 500.3400, L100.0500 #### [facility] [address] [place], [address] D BILI < 0.08 Normal 0.00-0.30 [facility] Comment on above: Performed By: #### L 500.3400, L100.0500 #### [facility] [address] [place], [address] Globulin (S) [Mass/Vol] 2.5 g/dL Normal 2.2-4.2 [facility] Comment on above: Performed By: #### L 500.3400, L100.0500 #### [facility] [address] [place], [address] T BILI < 0.15 Normal 0.00-1.30 [facility] Comment on above: Performed By: #### L 500.3400, L100.0500 #### [facility] [address] [place], [address] T PROT 5.7 g/dL Low 5.9-8.4 [facility] Comment on above: Performed By: #### L 500.3400, L100.0500 #### [facility] [address] [place], [address] MCV (mean corpuscular volume ) determinationOrdered By: True Holguin on 07-12-2024 MCV (RBC) [Entitic vol] 105.4 fL High 81-99 [facility] Mean corpuscular hemoglobin (MCH) determinationOrdered By: True Holguin on 07-12-2024 MCH (RBC) [Entitic mass] 32.8 pg High 27.0-32.0 [facility] Mean corpuscular hemoglobin concentration (MCHC) determinationOrdered By: True Holguin on 07-12-2024 MCHC (RBC) [Mass/Vol] 31.1 g/dL Low 32-36 [facility] Mean platelet volume determi nationOrdered By: True Holguin on 07-12-2024 Platelet mean volume (Bld) [Entitic vol] 10.4 fL 6.2-12.0 [facility] Platelet countOrdered By: Roni Holguin on 07-12-2024 Platelets (Bld) [#/Vol] 223 10*3/uL 150-450 [facility] RBC Auto (Bld) [#/Vol]Ordere d By: True Holguin on 07-12-2024 RBC (Bld) [#/Vol] 3.32 10*6/uL Low 4.2-5.4 [facility] Serum globulin measurementOr dered By: True Holguin on 07-12-2024 Globulin (S) [Mass/Vol] 2.5 g/dL 2.2-4.2 [facility] Serum or plasma alanine dacosta otransferase (ALT) measurementOrdered By: True Holguin on 07-12-2024 ALT [Catalytic activity/Vol] U/L <35 [facility] Serum or plasma albumin moriah urement (mass/volume)Ordered By: True Holguin on 07-12-2024 Albumin [Mass/Vol] 3.2 g/dL Low 3.4-4.8 [facility] Serum or plasma alkaline boo sphatase measurementOrdered By: True Holguin on 07-12-2024 ALP [Catalytic activity/Vol] 112 U/L High 35-104 [facility] Total proteinOrdered By: Aisha Holguin on 07-12-2024 Protein [Mass/Vol] 5.7 g/dL Low 5.9-8.4 [facility] White blood cell (WBC) count Ordered By: True Holguin on 07-12-2024 WBC (Bld) [#/Vol] 6.3 10*3/uL 4.4-11.0 [facility] Vitamin D,25 Hydroxyon 06-25 Vitamin D 25-OH 10.3 ng/mL Low 30-100 [facility] Comment on above: Order Comment: 214 Result Comment: Stephanie min D Status Deficiency: <20 ng/mL (50nmol/L) Insufficiency: 20-30 ng/mL (50-75 nmol/L) Sufficiency: 30-100 ng/mL (75-250 nmol/L) Toxicity: >100 ng/mL (>250 nmol/L) Performed By: #### L 506.1001 #### [facility] [address] [place], [address] Neurology Visit Reporton Neurology Visit Report [facility] [address], [address] [place], [place] [address] OFFICE VISIT Date of Service: 05/07/24 MR#: [id number] Acct: [id number] Name: CANDI AGUILAR Rep #: [id number] : 1950 Provider: Dr. Medardo hawkins MD Age/Sex: 73/F [place] [facility] [place] Status: Signed with Addenda ADDENDUM by Dr. [...] Medardo Mayo MD cc: * Signed HPI [facility] Chief Complaint: Details: Interim History: Candi returns for follow-up visit. She has a history of hyperlipidemia, essential tremor, vitamin D deficiency, dementia, depression, anxiety and bipolar disorder. She resides in a alf facility and information presently available is limited. [...] in January 2022 was admitted to a alf facility. She had further falls since her last visit in January 2024. She is prescribed venlafaxine, buspirone, and trazodone. She no longer takes clonazepam or risperidone. She takes donepezil and memantine for her dementia. She presents to the office alone today. Jersonproex DR prescribed for mood stabilization was discontinued. [...] anterior subluxation of L4 and L5.??? Diffuse oxje-gh-osbiodih spondylitic changes.??? Bilateral multilevel vertebral facet arthropathy in the lower lumbar spine.??? Old compression fracture T11. Preservation of the normal lumbar lordosis. DISC SPACES:??? No acute findings.??? Disc spaces are maintained. GASTROINTESTINAL TRACT:??? Unremarkable as visualized.??? Included bari (more content not included)... Normal [facility] Bilirubin directOrdered By: Claudia Anderson on 04-13-2024 Bilirubin.direct [Mass/Vol] 0.08 mg/dL 0.00-0.30 [facility] Bilirubin, totalOrdered By: Claudia Anderson on 04-13-2024 Bilirubin [Mass/Vol] 0.20 mg/dL 0.20-1.00 [facility] Comment on above: For patients on eltr ombopag therapy, use of Dimension [place] TBIL is not recommended. Blood manual differential co mment interpretation (narrative result)Ordered By: Claudia Anderson on 04-13-2024 Manual differential comment Anant (Bld) [Interp] COMMENT [facility] Comment on above: PLT ESTIMATE - PLT S LIGHT DECREASE. CBC-Complete Blood Cnt No Di ffon 04-13-2024 PLT TNP Normal 150-450 [facility] Comment on above: Order Comment: - Result Comment: Michele miller note: For this sample, a platelet estimate is provided rather than a platelet count due to platelet clumping. Other parameters associated with this sample are not affected by platelet clumping. If a more accurate platelet count is required, a redraw of the patient will be necessary. Performed By: #### L 100.4500, L501.8100, L100.0500, L500.3400 #### [facility] [address] [place], [place], [id number] Erythrocyte distribution width (RBC) [Ratio] 12.9 % Normal 11.6-14.6 [facility] Comment on above: Order Comment: 214-1 Performed By: #### L 100.4500, L501.8100, L100.0500, L500.3400 #### [facility] [address] [place], [address] Hematocrit (Bld) [Volume fraction] 39.3 % Normal 37-47 [facility] Comment on above: Order Comment: 214-1 Performed By: #### L 100.4500, L501.8100, L100.0500, L500.3400 #### [facility] [address] [place], [address] Hemoglobin (Bld) [Mass/Vol] 12.4 g/dL Normal 12.0-15.0 [facility] Comment on above: Order Comment: 214-1 Performed By: #### L 100.4500, L501.8100, L100.0500, L500.3400 #### [facility] [address] [place], [address] MCH (RBC) [Entitic mass] 33.4 pg High 27.0-32.0 [facility] Comment on above: Order Comment: 214-1 Performed By: #### L 100.4500, L501.8100, L100.0500, L500.3400 #### [facility] [address] [place], [address] MCHC (RBC) [Mass/Vol] 31.6 g/dL Low 32-36 [facility] Comment on above: Order Comment: 214-1 Performed By: #### L 100.4500, L501.8100, L100.0500, L500.3400 #### [facility] [address] [place], [address] MCV (RBC) [Entitic vol] 105.9 fL High 81-99 [facility] Comment on above: Order Comment: 214-1 Performed By: #### L 100.4500, L501.8100, L100.0500, L500.3400 #### [facility] [address] [place], [address] Platelet mean volume (Bld) [Entitic vol] 11.2 fL Normal 6.2-12.0 [facility] Comment on above: Order Comment: 214-1 Performed By: #### L 100.4500, L501.8100, L100.0500, L500.3400 #### [facility] [address] [place], [address] RBC (Bld) [#/Vol] 3.71 10*6/uL Low 4.2-5.4 [facility] Comment on above: Order Comment: -1 Performed By: #### L 100.4500, L501.8100, L100.0500, L500.3400 #### [facility] [address] [place], [address] RDW SD 50.0 fl High 35.1-43.9 [facility] Comment on above: Order Comment: -1 Performed By: #### L 100.4500, L501.8100, L100.0500, L500.3400 #### [facility] [address] [place], [address] WBC (Bld) [#/Vol] 5.5 10*3/uL Normal 4.4-11.0 [facility] Comment on above: Order Comment: -1 Performed By: #### L 100.4500, L501.8100, L100.0500, L500.3400 #### [facility] [address] [place], [address] Differential Commenton 04-13 SMEAR COMMENT COMMENT Normal [facility] Comment on above: Order Comment: 214 Result Comment: PLT ESTIMATE - PLT SLIGHT DECREASE. Performed By: #### L 501.1383 #### [facility] [address] [place], [address] Erythrocyte distribution wid th ratioOrdered By: Claudia Streetclementina on 04-13-2024 Erythrocyte distribution width (RBC) [Ratio] 12.9 % 11.6-14.6 [facility] Erythrocyte distribution wid th standard deviationOrdered By: Claudia Guclementina on 04-13-2024 Erythrocyte distribution width (RBC) [Ratio] 50.0 fl High 35.1-43.9 [facility] Hematocrit Auto (Bld) [Volum e fraction]Ordered By: Claudiacarmelo Streetclementina on 04-13-2024 Hematocrit (Bld) [Volume fraction] 39.3 % 37-47 [facility] Hemoglobin measurementOrdere d By: Claudia Streetclementina on 04-13-2024 Hemoglobin (Bld) [Mass/Vol] 12.4 g/dL 12.0-15.0 [facility] - Chemistry and C hemistry - challengeOrdered By: Claudiasimran Anderson on 04-13-2024 AST [Catalytic activity/Vol] 14 U/L Low 15-37 [facility] Liver Profileon 04-13-2024 Albumin [Mass/Vol] 2.7 g/dL Low 3.2-5.0 [facility] Comment on above: Order Comment: 214- Performed By: #### L 100.4500, L501.8100, L100.0500, L500.3400 #### [facility] [address] [place], [address] ALK P 93 U/L Normal 45-117 [facility] Comment on above: Order Comment: 214-1 Performed By: #### L 100.4500, L501.8100, L100.0500, L500.3400 #### [facility] [address] [place], [address] ALT [Catalytic activity/Vol] 11 U/L Low 13-56 [facility] Comment on above: Order Comment: 214- Performed By: #### L 100.4500, L501.8100, L100.0500, L500.3400 #### [facility] [address] [place], [address] AST [Catalytic activity/Vol] 14 U/L Low 15-37 [facility] Comment on above: Order Comment: 214-1 Performed By: #### L 100.4500, L501.8100, L100.0500, L500.3400 #### [facility] [address] [place], [address] Bilirubin [Mass/Vol] 0.20 mg/dL Normal 0.20-1.00 [facility] Comment on above: Order Comment: Result Comment: For patients on eltrombopag therapy, use of Dimension [place] TBIL is not recommended. Performed By: #### L 100.4500, L501.8100, L100.0500, L500.3400 #### [facility] [address] [place], [address] Bilirubin.direct [Mass/Vol] 0.08 mg/dL Normal 0.00-0.30 [facility] Comment on above: Order Comment: - Performed By: #### L 100.4500, L501.8100, L100.0500, L500.3400 #### [facility] [address] [place], [address] Globulin (S) [Mass/Vol] 2.8 g/dL Normal 2.2-4.2 [facility] Comment on above: Order Comment: - Performed By: #### L 100.4500, L501.8100, L100.0500, L500.3400 #### [facility] [address] [place], [address] T PROT 5.5 g/dL Low 6.4-8.2 [facility] Comment on above: Order Comment: 214-1 Performed By: #### L 100.4500, L501.8100, L100.0500, L500.3400 #### [facility] [address] [place], [address] MCV (mean corpuscular volume ) determinationOrdered By: Claudia Anderson on 04-13-2024 MCV (RBC) [Entitic vol] 105.9 fL High 81-99 [facility] Mean corpuscular hemoglobin (MCH) determinationOrdered By: Claudia Anderson on 04-13-2024 MCH (RBC) [Entitic mass] 33.4 pg High 27.0-32.0 [facility] Mean corpuscular hemoglobin concentration (MCHC) determinationOrdered By: Claudia Anderson on 04-13-2024 MCHC (RBC) [Mass/Vol] 31.6 g/dL Low 32-36 [facility] Mean platelet volume determi nationOrdered By: Claudia Anderson on 04-13-2024 Platelet mean volume (Bld) [Entitic vol] 11.2 fL 6.2-12.0 [facility] Platelet countOrdered By: Harmeet Anderson on 04-13-2024 Platelet count TNP [facility] Comment on above: Test not performedPl [...] RBC (Bld) [#/Vol] 3.71 10*6/uL Low 4.2-5.4 [facility] Serum globulin measurementOr dered By: Claudia Anderson on 04-13-2024 Globulin (S) [Mass/Vol] 2.8 g/dL 2.2-4.2 [facility] Serum or plasma alanine dacosta otransferase (ALT) measurementOrdered By: Claudia Anderson on 04-13-2024 ALT [Catalytic activity/Vol] 11 U/L Low 13-56 [facility] Serum or plasma albumin moriah urement (mass/volume)Ordered By: Claudia Anderson on 04-13-2024 Albumin [Mass/Vol] 2.7 g/dL Low 3.2-5.0 [facility] Serum or plasma alkaline boo sphatase measurementOrdered By: Claudiasimran Anderson on 04-13-2024 ALP [Catalytic activity/Vol] 93 U/L 45-117 [facility] Total proteinOrdered By: Po simran Jadleonardjeffy on 04-13-2024 Protein [Mass/Vol] 5.5 g/dL Low 6.4-8.2 [facility] Valproic Acid (Depakene) Lev coral 04-13-2024 VALPROIC ACID 45 ug/mL Low 50-100 [facility] Comment on above: Order Comment: 214-1 Performed By: #### L 100.4500, L501.8100, L100.0500, L500.3400 #### [facility] [address] [place], [place], [address] White blood cell (WBC) count Ordered By: Claudia Anderson on 04-13-2024 WBC (Bld) [#/Vol] 5.5 10*3/uL 4.4-11.0 [facility] Thyroid Stim Hormone (TSH)on 02-17-2024 TSH 2.260 uIU/mL Normal 0.358-3.740 [facility] Comment on above: Order Comment: 214 Performed By: #### L 501.9520 #### [facility] [address] [place], [place], [address] Neurology Visit Reporton Neurology Visit Report [facility] [address], [address] [place], [place] [address] OFFICE VISIT Date of Service: 01/25/24 MR#: [id number] Acct: [id number] Name: CANDI AGUILAR Rep #: [id number] : 1950 Provider: Dr. Medardo hawkins MD Age/Sex: 73/F [place] [facility] [place] Status: Signed HPI HPI Chief Complaint: Supplemental [...] Performing Provider: Medardo Mayo MD Performing Location: [facility] (more content not included)... Normal [facility] Thyroid Stim Hormone (TSH)on 01-17-2024 TSH 2.540 uIU/mL Normal 0.358-3.740 [facility] Comment on above: Order Comment: 214.1 Performed By: #### L 501.9520 #### [facility] [address], [address] CBC-Complete Blood Cnt No Di ffon 01-12-2024 Erythrocyte distribution width (RBC) [Ratio] 13.0 % Normal 11.6-14.6 [facility] Comment on above: Order Comment: 214 Performed By: #### L 525.9520 #### [facility] [address] [place], [address] Hematocrit (Bld) [Volume fraction] 37.3 % Normal 37-47 [facility] Comment on above: Order Comment: 214 Performed By: #### L 501.9520 #### [facility] [address] [place], [address] Hemoglobin (Bld) [Mass/Vol] 11.5 g/dL Low 12.0-15.0 [facility] Comment on above: Order Comment: 214 Performed By: #### L 5019520 #### [facility] [address] [place], [address] MCH (RBC) [Entitic mass] 32.5 pg High 27.0-32.0 [facility] Comment on above: Order Comment: 214 Performed By: #### L 536.9520 #### [facility] [address] [place], [address] MCHC (RBC) [Mass/Vol] 30.8 g/dL Low 32-36 [facility] Comment on above: Order Comment: 214 Performed By: #### L 687.9520 #### [facility] [address] [place], [address] MCV (RBC) [Entitic vol] 105.4 fL High 81-99 [facility] Comment on above: Order Comment: 214 Performed By: #### L 183.3820 #### [facility] [address] [place], [address] Platelet mean volume (Bld) [Entitic vol] 10.4 fL Normal 6.2-12.0 [facility] Comment on above: Order Comment: 214 Performed By: #### L 994.1614 #### [facility] [address] [place], [address] Platelets (Bld) [#/Vol] 239 10*3/uL Normal 150-450 [facility] Comment on above: Order Comment: 214 Performed By: #### L 501.9520 #### [facility] [address] [place], [address] RBC (Bld) [#/Vol] 3.54 10*6/uL Low 4.2-5.4 [facility] Comment on above: Order Comment: 214 Performed By: #### L 501.9520 #### [facility] [address] [place], [address] RDW SD 50.4 fl High 35.1-43.9 [facility] Comment on above: Order Comment: 214 Performed By: #### L 501.9520 #### [facility] [address] [place], [address] WBC (Bld) [#/Vol] 7.1 10*3/uL Normal 4.4-11.0 [facility] Comment on above: Order Comment: 214 Performed By: #### L 501.9520 #### [facility] [address] [place], [address] Liver Profileon 01-12-2024 Albumin [Mass/Vol] 2.9 g/dL Low 3.2-5.0 [facility] Comment on above: Order Comment: 214 Performed By: #### L 501.9520 #### [facility] [address] [place], [address] ALK P 72 U/L Normal 45-117 [facility] Comment on above: Order Comment: 214 Performed By: #### L 501.9520 #### [facility] [address] [place], [address] ALT [Catalytic activity/Vol] 10 U/L Low 13-56 [facility] Comment on above: Order Comment: 214 Performed By: #### L 501.9520 #### [facility] [address] [place], [address] AST [Catalytic activity/Vol] 12 U/L Low 15-37 [facility] Comment on above: Order Comment: 214 Performed By: #### L 501.9520 #### [facility] [address] [place], [address] Bilirubin [Mass/Vol] 0.20 mg/dL Normal 0.20-1.00 [facility] Comment on above: Order Comment: 214 Result Comment: For patients on eltrombopag therapy, use of Dimension [place] TBIL is not recommended. Performed By: #### L 501.9520 #### [facility] [address] [place], [address] Bilirubin.direct [Mass/Vol] 0.07 mg/dL Normal 0.00-0.30 [facility] Comment on above: Order Comment: 214 Performed By: #### L 501.9520 #### [facility] [address] [place], [address] Globulin (S) [Mass/Vol] 2.5 g/dL Normal 2.2-4.2 [facility] Comment on above: Order Comment: 214 Performed By: #### L 501.9520 #### [facility] [address] [place], [address] T PROT 5.4 g/dL Low 6.4-8.2 [facility] Comment on above: Order Comment: 214 Performed By: #### L 501.9520 #### [facility] [address] [place], [address] Valproic Acid (Depakene) Lev coral 01-12-2024 VALPROIC ACID 15 ug/mL Low 50-100 [facility] Comment on above: Order Comment: 214 Performed By: #### L 501.9520 #### [facility] [address] [place], [place], [address] Upper Ext Joint Only(Routine )on 01-04-2024 Upper Ext Joint Only(Routine) [facility] [address] [place] [address] Upper Ext Joint Only(Routine) MR#: [id number] Acct: [id number] Name: CANDI AGUILAR Rep #: [id number] : 1950 F 73 From: Mk López MD PCP: Claudia Anderson MD Status: REG CLI Study: Upper Ext Joint Only(Routine) Date of Exam: Exam# [id number] Ordering Dr: True Rader MD [id number] STUDY: MRI RIGHT SHOULDER REASON FOR EXAM: [...] ID and State: [facility] / [place] , Service support , CC: Dr. True Rader MD; Claudia Anderson MD Technical Designer: Signed Normal [facility] CBC-Complete Blood Cnt No Di ffon 12-12-2023 Erythrocyte distribution width (RBC) [Ratio] 13.3 % Normal 11.6-14.6 [facility] Comment on above: Order Comment: 214 Performed By: #### L 501.9520 #### [facility] [address] [place], [place], [address] Hematocrit (Bld) [Volume fraction] 36.4 % Low 37-47 [facility] Comment on above: Order Comment: 214 Performed By: #### L 501.9520 #### [facility] [address] [place], [address] Hemoglobin (Bld) [Mass/Vol] 11.2 g/dL Low 12.0-15.0 [facility] Comment on above: Order Comment: 214 Performed By: #### L 501.9520 #### [facility] [address] [place], [address] MCH (RBC) [Entitic mass] 32.7 pg High 27.0-32.0 [facility] Comment on above: Order Comment: 214 Performed By: #### L 501.9520 #### [facility] [address] [place], [address] MCHC (RBC) [Mass/Vol] 30.8 g/dL Low 32-36 [facility] Comment on above: Order Comment: 214 Performed By: #### L 501.9520 #### [facility] [address] [place], [address] MCV (RBC) [Entitic vol] 106.4 fL High 81-99 [facility] Comment on above: Order Comment: 214 Performed By: #### L 501.9520 #### [facility] [address] [place], [address] Platelet mean volume (Bld) [Entitic vol] 10.3 fL Normal 6.2-12.0 [facility] Comment on above: Order Comment: 214 Performed By: #### L 501.9520 #### [facility] [address] [place], [address] Platelets (Bld) [#/Vol] 222 10*3/uL Normal 150-450 [facility] Comment on above: Order Comment: 214 Performed By: #### L 501.9520 #### [facility] [address] [place], [address] RBC (Bld) [#/Vol] 3.42 10*6/uL Low 4.2-5.4 [facility] Comment on above: Order Comment: 214 Performed By: #### L 501.9520 #### [facility] [address] [place], [address] RDW SD 51.8 fl High 35.1-43.9 [facility] Comment on above: Order Comment: 214 Performed By: #### L 501.9520 #### [facility] [address] [place], [address] WBC (Bld) [#/Vol] 6.5 10*3/uL Normal 4.4-11.0 [facility] Comment on above: Order Comment: 214 Performed By: #### L 501.9520 #### [facility] [address] [place], [address] Comprehensive Metabolic Prof ilon 12-12-2023 Albumin [Mass/Vol] 2.8 g/dL Low 3.2-5.0 [facility] Comment on above: Order Comment: 214 Performed By: #### L [id number] #### [facility] [address] [place], [address] Albumin/Globulin [Mass ratio] 1.0 {ratio} Normal 0.9-2.4 [facility] Comment on above: Order Comment: 214 Performed By: #### L 501.9520 #### [facility] [address] [place], [address] ALK P 84 U/L Normal 45-117 [facility] Comment on above: Order Comment: 214 Performed By: #### L [id number] #### [facility] [address] [place], [address] ALT [Catalytic activity/Vol] 13 U/L Normal 13-56 [facility] Comment on above: Order Comment: 214 Performed By: #### L [id number] #### [facility] [address] [place], [address] AST [Catalytic activity/Vol] 12 U/L Low 15-37 [facility] Comment on above: Order Comment: 214 Performed By: #### L [id number] #### [facility] [address] [place], [address] Bilirubin [Mass/Vol] 0.20 mg/dL Normal 0.20-1.00 [facility] Comment on above: Order Comment: 214 Result Comment: For patients on eltrombopag therapy, use of Dimension [place] TBIL is not recommended. Performed By: #### L 501.9520 #### [facility] [address] [place], [address] BUN/CRE 9.9 RATIO Low 10-20 [facility] Comment on above: Order Comment: 214 Performed By: #### L [id number] #### [facility] [address] [place], [address] CA,Total 8.7 mg/dL Normal 8.5-10.1 [facility] Comment on above: Order Comment: 214 Performed By: #### L [id number] #### [facility] [address] [place], [address] Chloride [Moles/Vol] 106 mmol/L Normal 98-107 [facility] Comment on above: Order Comment: 214 Performed By: #### L [id number] #### [facility] [address] [place], [address] CO2 [Moles/Vol] 28.0 mmol/L Normal 21.0-32.0 [facility] Comment on above: Order Comment: 214 Performed By: #### L [id number] #### [facility] [address] [place], [address] Creatinine [Mass/Vol] 0.80 mg/dL Normal 0.55-1.02 [facility] Comment on above: Order Comment: 214 Result Comment: The validity of the calculated GFR GFRAA in patients over 70 years has not been determined. Clinical correlation is essential. Performed By: #### L [id number] #### [facility] [address] [place], [address] EST GFR - AA 90 mL/min Normal >60 [facility] Comment on above: Order Comment: 214 Result Comment: Afri can [place] GFR Calc Performed By: #### L 501.9520 #### [facility] [address] [place], [address] GAP 7 Normal 5-15 [facility] Comment on above: Order Comment: 214 Performed By: #### L 769.20 #### [facility] [address] [place], [address] GFR/1.73 sq M.predicted among non-blacks MDRD (S/P/Bld) [Vol rate/Area] 74 mL/min/{1.73_m2} Normal >60 [facility] Comment on above: Order Comment: 214 Result Comment: Non- GFR Calc Performed By: #### L [id number] #### [facility] [address] [place], [address] Globulin (S) [Mass/Vol] 2.7 g/dL Normal 2.2-4.2 [facility] Comment on above: Order Comment: 214 Performed By: #### L [id number] #### [facility] [address] [place], [address] Glucose [Mass/Vol] 80 mg/dL Normal 74-106 [facility] Comment on above: Order Comment: 214 Performed By: #### L [id number] #### [facility] [address] [place], [address] Potassium [Moles/Vol] 4.4 mmol/L Normal 3.5-5.1 [facility] Comment on above: Order Comment: 214 Performed By: #### L [id number] #### [facility] [address] [place], [place], [address] Sodium [Moles/Vol] 141 mmol/L Normal 136-145 [facility] Comment on above: Order Comment: 214 Performed By: #### L [id number] #### [facility] [address] [place], [address] T PROT 5.5 g/dL Low 6.4-8.2 [facility] Comment on above: Order Comment: 214 Performed By: #### L [id number] #### [facility] [address] [place], [address] Urea nitrogen [Mass/Vol] 8 mg/dL Normal 7-18 [facility] Comment on above: Order Comment: 214 Performed By: #### L [id number] #### [facility] [address] [place], [address] Thyroid Stim Hormone (TSH)on 12-12-2023 TSH 1.920 uIU/mL Normal 0.358-3.740 [facility] Comment on above: Order Comment: 214 Performed By: #### L [id number] #### [facility] [address] [place], [address] Valproic Acid (Depakene) Lev coral 12-12-2023 VALPROIC ACID 8 ug/mL Low 50-100 [facility] Comment on above: Order Comment: 214 Performed By: #### L [id number] #### [facility] [address] [place], [address] Orthopedic Visit Reporton Orthopedic Visit Report [facility] [address] [place] [address] [address] [place] [address] OFFICE VISIT Date of Service: 11/17/23 MR#: [id number] Acct: [id number] Name: SARAPATRICIACANDIJT Rep #: [id number] : 1950 Provider: Dr. True subramanian MD Age/Sex: 73/F Location[place] [facility] Status: Signed with Addenda ADDENDUM by Sanam [...] Performing Provider: True Rader MD Performing Location: [facility] Administered by: True Rader MD on 11/17/23 11:19 Dose Route Admin Location Dispensed Lot Number Expiration Date [facility] Man ufacturer 80 mg intra-articular right shoulder 2 mL [id number] 06/19/25 7948-6166-17 [facility] Comments: Bupivacaine 0.25% 4cc lot : [id number] exp : 05/19/24 NDC : 8527-7048-12 Date cc: * Signed Intake Vital Signs [...] dibucaine 1 % rectal ointment 1 applic [facility] TID PRN hemorrhoids 09/28/22 11/17/23 Rx #[id number] [...] you fallen in the past year?: [facility] Left shoulder pain Hx of [...] current occupation (more content not included)... Normal [facility] Ammoniaon 11-08-2023 Ammonia (P) [Mass/Vol] ug/dL Low [facility] Comment on above: Order Comment: 214 Performed By: #### L 501.9547 #### [facility] [address] [place], [place], [address] Folates, (Folic Acid)on 10-20 FOLATES 2.60 ng/mL Low 3.1-55.4 [facility] Comment on above: Order Comment: 214.1 N Performed By: #### L 500.3400, L100.0500 #### [facility] [address] [place], [address] Ammoniaon 11-03-2023 Ammonia (P) [Moles/Vol] 26.0 umol/L Normal [facility] Comment on above: Performed By: #### L 500.3400, L100.0500 #### [facility] [address] [place], [address] Neurology Visit Reporton Neurology Visit Report [facility] [address] [facility] [facility], [address] [place], [place] [address] OFFICE VISIT Date of Service: 11/03/23 MR#: [id number] Acct: [id number] Name: CANDI AGUILAR Rep #: [id number] : 1950 Provider: Dr. Medardo hawkins MD Age/Sex: 73/F Location: [facility] Status: Signed HPI HPI Chief Complaint: Details: Interim History: Candi returns for follow-up visit. She has a history of hyperlipidemia, essential tremor, vitamin D deficiency, dementia, depression, anxiety and bipolar disorder. She resides in a alf facility and information presently available is limited. [...] in January 2022 was admitted to a alf facility. Her anxiety and other psychiatric conditions [...] anterior subluxation of L4 and L5.??? Diffuse [id number] spondylitic changes.??? Bilateral multilevel vertebral facet arthropathy [...] Minimal retropul (more content not included)... Normal [facility] Absolute lymphocyte countOrd ered By: Claudia Anderson on 07-18-2023 Lymphocytes Auto (Unsp spec) [#/Vol] 4.10 10*3/uL 0.83-4.51 [facility] Automated lymphocyte count a s percentage of total leukocytesOrdered By: Claudia Anderson on 07-18-2023 Lymphocytes/100 WBC Auto (Unsp spec) 45.5 % 19-41 [facility] Basophil percentageOrdered B y: Claudia Anderson on 07-18-2023 Basophils/100 WBC (Bld) 0.4 % 0-1 [facility] Eosinophils/100 WBC (Bld) 2.3 % 0-5 [facility] Hemoglobin (Bld) [Mass/Vol] 11.6 g/dL 12.0-15.0 [facility] Monocytes/100 WBC (Bld) 8.2 % 0-10 [facility] Neutrophils (Bld) [#/Vol] 3.9 10*3/uL 2.0-7.7 [facility] Neutrophils/100 WBC (Bld) 42.9 % 47-70 [facility] WBC (Bld) [#/Vol] 9.0 10*3/uL 4.4-11.0 [facility] Determination of erythrocyte mean corpuscular volume (MCV)Ordered By: Claudia Anderson on 07-18-2023 MCV (RBC) [Entitic vol] 106.1 fL 81-99 [facility] Erythrocyte distribution wid th ratioOrdered By: Claudia Anderson on 07-18-2023 Erythrocyte distribution width (RBC) [Ratio] 12.8 % 11.6-14.6 [facility] Erythrocyte distribution wid th standard deviationOrdered By: Claudiasimran Anderson on 07-18-2023 Erythrocyte distribution width (RBC) [Entitic vol] 50.5 fL 35.1-43.9 [facility] Hematocrit Auto (Bld) [Volum e fraction]Ordered By: Claudia Anderson on 07-18-2023 Hematocrit (Bld) [Volume fraction] 36.3 % 37-47 [facility] Immature granulocytes/100 WB C Auto (Bld)Ordered By: Claudia Anderson on 07-18-2023 Immature granulocytes/100 WBC (Bld) 0.700 % 0.0-0.9 [facility] Comment on above: IG% - Immature Granu locytes (promyelocytes, myelocytes and metamyelocytes) > 1% indicates that a LEFT SHIFT is Present. Laboratory - Hematology and Cell countsOrdered By: Claudia Anderson on 07-18-2023 MCH (RBC) [Entitic mass] 33.9 pg 27.0-32.0 [facility] MCHC (RBC) [Mass/Vol] 32.0 g/dL 32-36 [facility] Nucleated RBC/100 WBC (Bld) [Ratio] 0 % 0-5 [facility] Platelet mean volume (Bld) [Entitic vol] 10.4 fL 6.2-12.0 [facility] Platelets (Bld) [#/Vol] 243 10*3/uL 150-450 [facility] RBC Auto (Bld) [#/Vol]Ordere d By: Claudia Anderson on 07-18-2023 RBC (Bld) [#/Vol] 3.42 10*6/uL 4.2-5.4 [facility] Basophil percentageOrdered B y: Claudia Anderson on 07-13-2023 Bilirubin [Mass/Vol] 0.20 mg/dL 0.20-1.00 [facility] Comment on above: For patients on eltr ombopag therapy, use of Dimension [place] TBIL is not recommended. Hemoglobin (Bld) [Mass/Vol] 12.2 g/dL 12.0-15.0 [facility] Protein [Mass/Vol] 6.3 g/dL 6.4-8.2 [facility] WBC (Bld) [#/Vol] 12.9 10*3/uL 4.4-11.0 [facility] Determination of erythrocyte mean corpuscular volume (MCV)Ordered By: Claudia Anderson on 07-13-2023 MCV (RBC) [Entitic vol] 106.7 fL 81-99 [facility] Direct bilirubinOrdered By: Claudia Anderson on 07-13-2023 Bilirubin.direct [Mass/Vol] 0.07 mg/dL 0.00-0.30 [facility] Erythrocyte distribution wid th ratioOrdered By: Claudia Anderson on 07-13-2023 Erythrocyte distribution width (RBC) [Ratio] 12.6 % 11.6-14.6 [facility] Erythrocyte distribution wid th standard deviationOrdered By: Claudia Anderson on 07-13-2023 Erythrocyte distribution width (RBC) [Entitic vol] 49.8 fL 35.1-43.9 [facility] Hematocrit Auto (Bld) [Volum e fraction]Ordered By: Claudia Anderson on 07-13-2023 Hematocrit (Bld) [Volume fraction] 38.0 % 37-47 [facility] - Chemistry and C hemistry - challengeOrdered By: Claudia Anderson on 07-13-2023 ALP [Catalytic activity/Vol] 95 U/L 45-117 [facility] ALT [Catalytic activity/Vol] 16 U/L 13-56 [facility] Globulin (S) [Mass/Vol] 3.3 g/dL 2.2-4.2 [facility] Laboratory - Hematology and Cell countsOrdered By: Claudia Anderson on 07-13-2023 MCH (RBC) [Entitic mass] 34.3 pg 27.0-32.0 [facility] MCHC (RBC) [Mass/Vol] 32.1 g/dL 32-36 [facility] Platelet mean volume (Bld) [Entitic vol] 10.6 fL 6.2-12.0 [facility] Platelets (Bld) [#/Vol] 260 10*3/uL 150-450 [facility] No Panel InformationOrdered By: Claudia Anderson on 07-13-2023 Valproic Acid (Depakene) Level 30 ug/mL 50-100 [facility] RBC Auto (Bld) [#/Vol]Ordere d By: Claudia Anderson on 07-13-2023 RBC (Bld) [#/Vol] 3.56 10*6/uL 4.2-5.4 [facility] Thin prep Papanicolaou smear with manual screeningOrdered By: Claudia Anderson on 07-13-2023 Thin prep Papanicolaou smear with manual screening 3.0 g/dL 3.2-5.0 [facility] Thin prep Papanicolaou smear with manual screening 11 U/L 15-37 [facility] Basophil percentageOrdered B y: Claudia Anderson on 06-13-2023 Chloride [Moles/Vol] 104 mmol/L 98-107 [facility] Glucose [Mass/Vol] 72 mg/dL 74-106 [facility] Hemoglobin (Bld) [Mass/Vol] 11.1 g/dL 12.0-15.0 [facility] Potassium [Moles/Vol] 4.4 mmol/L 3.5-5.1 [facility] Sodium [Moles/Vol] 139 mmol/L 136-145 [facility] WBC (Bld) [#/Vol] 5.9 10*3/uL 4.4-11.0 [facility] Determination of erythrocyte mean corpuscular volume (MCV)Ordered By: Claudia Anderson on 06-13-2023 MCV (RBC) [Entitic vol] 108.0 fL 81-99 [facility] Erythrocyte distribution wid th ratioOrdered By: Claudia Anderson on 06-13-2023 Erythrocyte distribution width (RBC) [Ratio] 13.6 % 11.6-14.6 [facility] Erythrocyte distribution wid th standard deviationOrdered By: Claudia Anderson on 06-13-2023 Erythrocyte distribution width (RBC) [Entitic vol] 54.8 fL 35.1-43.9 [facility] Hematocrit Auto (Bld) [Volum e fraction]Ordered By: Claudia Anderson on 06-13-2023 Hematocrit (Bld) [Volume fraction] 35.0 % 37-47 [facility] - Chemistry and C hemistry - challengeOrdered By: Claudia Anderson on 06-13-2023 CO2 [Moles/Vol] 31.0 mmol/L 21.0-32.0 [facility] Urea nitrogen/Creatinine [Mass ratio] 12.9 mg/mg 10-20 [facility] - Hematology and Cell countsOrdered By: Claudia Anderson on 06-13-2023 MCH (RBC) [Entitic mass] 34.3 pg 27.0-32.0 [facility] MCHC (RBC) [Mass/Vol] 31.7 g/dL 32-36 [facility] Platelet mean volume (Bld) [Entitic vol] 10.4 fL 6.2-12.0 [facility] Platelets (Bld) [#/Vol] 219 10*3/uL 150-450 [facility] No Panel InformationOrdered By: Claudia Anderson on 06-13-2023 Estimated GFR (MDRD) Amer 94 mL/min >60 [facility] Comment on above: GFR Calc Estimated GFR (MDRD) Non-Af Amer 78 mL/min >60 [facility] Comment on above: Non- GFR Calc RBC Auto (Bld) [#/Vol]Ordere d By: Claudia Anderson on 06-13-2023 RBC (Bld) [#/Vol] 3.24 10*6/uL 4.2-5.4 [facility] Serum or plasma calcium moriah urement (mass/volume)Ordered By: Claudia Anderson on 06-13-2023 Calcium [Mass/Vol] 8.5 mg/dL 8.5-10.1 [facility] Serum or plasma creatinine m easurement (mass/volume)Ordered By: Claudia Anderson on 06-13-2023 Creatinine [Mass/Vol] 0.77 mg/dL 0.55-1.02 [facility] Comment on above: The validity of the calculated GFR & GFRAA in patients over 70 years has not been determined. Clinical correlation is essential. Serum or plasma urea nitroge n measurement (mass/volume)Ordered By: Claudia Anderson on 06-13-2023 Urea nitrogen [Mass/Vol] 10 mg/dL 7-18 [facility] Thin prep Papanicolaou smear with manual screeningOrdered By: Claudia Anderson on 06-13-2023 Thin prep Papanicolaou smear with manual screening 4 5-15 [facility] Basophil percentageOrdered B y: Claudia Anderson on 05-30-2023 Chloride [Moles/Vol] 108 mmol/L 98-107 [facility] Glucose [Mass/Vol] 75 mg/dL 74-106 [facility] Potassium [Moles/Vol] 4.9 mmol/L 3.5-5.1 [facility] Sodium [Moles/Vol] 144 mmol/L 136-145 [facility] - Chemistry and C hemistry - challengeOrdered By: Claudia Anderson on 05-30-2023 CO2 [Moles/Vol] 34.0 mmol/L 21.0-32.0 [facility] Urea nitrogen/Creatinine [Mass ratio] 10.9 mg/mg 10-20 [facility] No Panel InformationOrdered By: Claudia Anderson on 05-30-2023 Estimated GFR (MDRD) Amer 87 mL/min >60 [facility] Comment on above: GFR Calc Estimated GFR (MDRD) Non-Af Amer 72 mL/min >60 [facility] Comment on above: Non- GFR Calc Serum or plasma calcium moriah urement (mass/volume)Ordered By: Claudia Anderson on 05-30-2023 Calcium [Mass/Vol] 8.5 mg/dL 8.5-10.1 [facility] Serum or plasma creatinine m easurement (mass/volume)Ordered By: Claudia Anderson on 05-30-2023 Creatinine [Mass/Vol] 0.83 mg/dL 0.55-1.02 [facility] Comment on above: The validity of the calculated GFR & GFRAA in patients over 70 years has not been determined. Clinical correlation is essential. Serum or plasma thyroid stim ulating hormone (TSH) measurement (units/volume)Ordered By: Claudia Anderson on 05-30-2023 TSH Qn 2.71 uIU/mL 0.358-3.74 [facility] Serum or plasma urea nitroge n measurement (mass/volume)Ordered By: Claudia Anderson on 05-30-2023 Urea nitrogen [Mass/Vol] 9 mg/dL 7-18 [facility] Thin prep Papanicolaou smear with manual screeningOrdered By: Claudia Anderson on 05-30-2023 Thin prep Papanicolaou smear with manual screening 2 5-15 [facility] Basophil percentageOrdered B y: Claudia Anderson on 04-13-2023 Bilirubin [Mass/Vol] 0.20 mg/dL 0.20-1.00 [facility] Comment on above: For patients on eltr ombopag therapy, use of Dimension [place] TBIL is not recommended. Hemoglobin (Bld) [Mass/Vol] 11.1 g/dL 12.0-15.0 [facility] Protein [Mass/Vol] 5.6 g/dL 6.4-8.2 [facility] WBC (Bld) [#/Vol] 6.6 10*3/uL 4.4-11.0 [facility] Determination of erythrocyte mean corpuscular volume (MCV)Ordered By: Claudia Anderson on 04-13-2023 MCV (RBC) [Entitic vol] 107.7 fL 81-99 [facility] Direct bilirubinOrdered By: Claudia Anderson on 04-13-2023 Bilirubin.direct [Mass/Vol] mg/dL 0.00-0.30 [facility] Erythrocyte distribution wid th ratioOrdered By: Claudia Anderson on 04-13-2023 Erythrocyte distribution width (RBC) [Ratio] 13.4 % 11.6-14.6 [facility] Erythrocyte distribution wid th standard deviationOrdered By: Claudia Anderson on 04-13-2023 Erythrocyte distribution width (RBC) [Entitic vol] 53.7 fL 35.1-43.9 [facility] Hematocrit Auto (Bld) [Volum e fraction]Ordered By: Claudia Adnerson on 04-13-2023 Hematocrit (Bld) [Volume fraction] 36.3 % 37-47 [facility] - Chemistry and C hemistry - challengeOrdered By: Claudia Anderson on 04-13-2023 ALP [Catalytic activity/Vol] 74 U/L 45-117 [facility] ALT [Catalytic activity/Vol] 10 U/L 13-56 [facility] Globulin (S) [Mass/Vol] 3.0 g/dL 2.2-4.2 [facility] Laboratory - Hematology and Cell countsOrdered By: Claudia Anderson on 04-13-2023 MCH (RBC) [Entitic mass] 32.9 pg 27.0-32.0 [facility] MCHC (RBC) [Mass/Vol] 30.6 g/dL 32-36 [facility] Platelets (Bld) [#/Vol] 197 10*3/uL 150-450 [facility] No Panel InformationOrdered By: Claudia Anderson on 04-13-2023 Valproic Acid (Depakene) Level 52 ug/mL 50-100 [facility] Platelet mean volume Christiano-Ec ker (Bld) [Entitic vol]Ordered By: Claudia Anderson on 04-13-2023 Platelet mean volume (Bld) [Entitic vol] 10.4 fL 6.2-12.0 [facility] RBC Auto (Bld) [#/Vol]Ordere d By: Claudia Anderson on 04-13-2023 RBC (Bld) [#/Vol] 3.37 10*6/uL 4.2-5.4 [facility] Thin prep Papanicolaou smear with manual screeningOrdered By: Claudia Anderson on 04-13-2023 Thin prep Papanicolaou smear with manual screening 2.6 g/dL 3.2-5.0 [facility] Thin prep Papanicolaou smear with manual screening 10 U/L 15-37 [facility] Basophil percentageOrdered B y: Claudia Anderson on 01-25-2023 Bilirubin [Mass/Vol] 0.30 mg/dL 0.20-1.00 [facility] Comment on above: For patients on eltr ombopag therapy, use of Dimension [place] TBIL is not recommended. Chloride [Moles/Vol] 105 mmol/L 98-107 [facility] Glucose [Mass/Vol] 90 mg/dL 74-106 [facility] Potassium [Moles/Vol] 4.5 mmol/L 3.5-5.1 [facility] Protein [Mass/Vol] 6.2 g/dL 6.4-8.2 [facility] Sodium [Moles/Vol] 140 mmol/L 136-145 [facility] - Chemistry and C hemistry - challengeOrdered By: Claudia Anderson on 01-25-2023 ALP [Catalytic activity/Vol] 75 U/L 45-117 [facility] ALT [Catalytic activity/Vol] 8 U/L 13-56 [facility] CO2 [Moles/Vol] 32.0 mmol/L 21.0-32.0 [facility] Globulin (S) [Mass/Vol] 3.4 g/dL 2.2-4.2 [facility] Urea nitrogen/Creatinine [Mass ratio] 13.9 mg/mg 10-20 [facility] No Panel InformationOrdered By: Claudia Anderson on 01-25-2023 Estimated GFR (MDRD) Amer 92 mL/min >60 [facility] Comment on above: GFR Calc Estimated GFR (MDRD) Non-Af Amer 76 mL/min >60 [facility] Comment on above: Non- GFR Calc Serum or plasma albumin moriah urement (mass/volume)Ordered By: Claudia Anderson on 01-25-2023 Albumin [Mass/Vol] 2.8 g/dL 3.2-5.0 [facility] Serum or plasma albumin/glob ulin mass ratioOrdered By: Claudia Anderson on 01-25-2023 Albumin/Globulin [Mass ratio] 0.8 {ratio} 0.9-2.4 [facility] Serum or plasma calcium moriah urement (mass/volume)Ordered By: Claudia Anderson on 01-25-2023 Calcium [Mass/Vol] 8.6 mg/dL 8.5-10.1 [facility] Serum or plasma creatinine m easurement (mass/volume)Ordered By: Claudia Anderson on 01-25-2023 Creatinine [Mass/Vol] 0.79 mg/dL 0.55-1.02 [facility] Comment on above: The validity of the calculated GFR & GFRAA in patients over 70 years has not been determined. Clinical correlation is essential. Serum or plasma urea nitroge n measurement (mass/volume)Ordered By: Claudia Anderson on 01-25-2023 Urea nitrogen [Mass/Vol] 11 mg/dL 7-18 [facility] Thin prep Papanicolaou smear with manual screeningOrdered By: Claudia Anderson on 01-25-2023 Thin prep Papanicolaou smear with manual screening 10 U/L 15-37 [facility] Thin prep Papanicolaou smear with manual screening 3 5-15 [facility] Basophil percentageOrdered B y: Claudia Anderson on 01-11-2023 Bilirubin [Mass/Vol] 0.20 mg/dL 0.20-1.00 [facility] Comment on above: For patients on eltr ombopag therapy, use of Dimension [place] TBIL is not recommended. Protein [Mass/Vol] 5.6 g/dL 6.4-8.2 [facility] WBC (Bld) [#/Vol] 5.7 10*3/uL 4.4-11.0 [facility] Blood erythrocytes count (nu mber/volume)Ordered By: Claudia Anderson on 01-11-2023 RBC (Bld) [#/Vol] 3.43 10*6/uL 4.2-5.4 [facility] Blood hemoglobin measurement (mass/volume)Ordered By: Claudia Anderson on 01-11-2023 Hemoglobin (Bld) [Mass/Vol] 11.3 g/dL 12.0-15.0 [facility] Blood platelet mean volumeOr dered By: Claudia Anderson on 01-11-2023 Platelet mean volume (Bld) [Entitic vol] 9.8 fL 6.2-12.0 [facility] Determination of erythrocyte mean corpuscular volume (MCV)Ordered By: Claudia Anderson on 01-11-2023 MCV (RBC) [Entitic vol] 103.8 fL 81-99 [facility] Direct bilirubinOrdered By: Claudia Anderson on 01-11-2023 Bilirubin.direct [Mass/Vol] mg/dL 0.00-0.30 [facility] Hematocrit Auto (Bld) [Volum e fraction]Ordered By: Claudia Anderson on 01-11-2023 Hematocrit (Bld) [Volume fraction] 35.6 % 37-47 [facility] - Chemistry and C hemistry - challengeOrdered By: Claudia Anderson on 01-11-2023 ALP [Catalytic activity/Vol] 83 U/L 45-117 [facility] ALT [Catalytic activity/Vol] 13 U/L 13-56 [facility] Globulin (S) [Mass/Vol] 3.0 g/dL 2.2-4.2 [facility] Laboratory - Hematology and Cell countsOrdered By: Claudia Anderson on 01-11-2023 Erythrocyte distribution width (RBC) [Entitic vol] 53.4 fL 35.1-43.9 [facility] Erythrocyte distribution width (RBC) [Ratio] 14.2 % 11.6-14.6 [facility] MCH (RBC) [Entitic mass] 32.9 pg 27.0-32.0 [facility] MCHC Auto (RBC) [Mass/Vol]Or dered By: Claudia Anderson on 01-11-2023 MCHC (RBC) [Mass/Vol] 31.7 g/dL 32-36 [facility] No Panel InformationOrdered By: Claudia Anderson on 01-11-2023 Valproic Acid (Depakene) Level 48 ug/mL 50-100 [facility] Platelets bldOrdered By: Po Anderson on 01-11-2023 Platelets (Bld) [#/Vol] 205 10*3/uL 150-450 [facility] Serum or plasma albumin moriah urement (mass/volume)Ordered By: Claudia Anderson on 01-11-2023 Albumin [Mass/Vol] 2.6 g/dL 3.2-5.0 [facility] Thin prep Papanicolaou smear with manual screeningOrdered By: Claudia Anderson on 01-11-2023 Thin prep Papanicolaou smear with manual screening 12 U/L 15-37 [facility] Absolute lymphocyte countOrd ered By: Claudia Anderson on 12-20-2022 Lymphocytes Auto (Unsp spec) [#/Vol] 2.76 10*3/uL 0.83-4.51 [facility] Basophil percentageOrdered B y: Claudia Anderson on 12-20-2022 Basophils/100 WBC (Bld) 0.8 % 0-1 [facility] Chloride [Moles/Vol] 106 mmol/L 98-107 [facility] Eosinophils/100 WBC (Bld) 6.6 % 0-5 [facility] Glucose [Mass/Vol] 87 mg/dL 74-106 [facility] Neutrophils (Bld) [#/Vol] 1.6 10*3/uL 2.0-7.7 [facility] Neutrophils/100 WBC (Bld) 30.7 % 47-70 [facility] Potassium [Moles/Vol] 3.9 mmol/L 3.5-5.1 [facility] Sodium [Moles/Vol] 143 mmol/L 136-145 [facility] WBC (Bld) [#/Vol] 5.3 10*3/uL 4.4-11.0 [facility] Blood erythrocytes count (nu mber/volume)Ordered By: Claudia Anderson on 12-20-2022 RBC (Bld) [#/Vol] 3.71 10*6/uL 4.2-5.4 [facility] Blood hemoglobin measurement (mass/volume)Ordered By: Claudia Anderson on 12-20-2022 Hemoglobin (Bld) [Mass/Vol] 12.2 g/dL 12.0-15.0 [facility] Blood lymphocytes/100 leukoc ytesOrdered By: Claudia Anderson on 12-20-2022 Lymphocytes/100 WBC (Bld) 52.1 % 19-41 [facility] Blood monocytes/100 leukocyt esOrdered By: Claudia Anderson on 12-20-2022 Monocytes/100 WBC (Bld) 9.4 % 0-10 [facility] Blood platelet mean volumeOr dered By: Claudia Anderson on 12-20-2022 Platelet mean volume (Bld) [Entitic vol] 9.2 fL 6.2-12.0 [facility] Determination of erythrocyte mean corpuscular volume (MCV)Ordered By: Claudia Anderson on 12-20-2022 MCV (RBC) [Entitic vol] 104.0 fL 81-99 [facility] Hematocrit Auto (Bld) [Volum e fraction]Ordered By: Claudia Anderson on 12-20-2022 Hematocrit (Bld) [Volume fraction] 38.6 % 37-47 [facility] - Chemistry and C hemistry - challengeOrdered By: Claudia Anderson on 12-20-2022 CO2 [Moles/Vol] 35.0 mmol/L 21.0-32.0 [facility] Urea nitrogen/Creatinine [Mass ratio] 9.3 mg/mg 10-20 [facility] - Hematology and Cell countsOrdered By: Claudia Anderson on 12-20-2022 Erythrocyte distribution width (RBC) [Entitic vol] 52.6 fL 35.1-43.9 [facility] Erythrocyte distribution width (RBC) [Ratio] 13.8 % 11.6-14.6 [facility] Immature granulocytes/100 WBC (Bld) 0.400 % 0.0-0.9 [facility] Comment on above: IG% - Immature Granu locytes (promyelocytes, myelocytes and metamyelocytes) > 1% indicates that a LEFT SHIFT is Present. MCH (RBC) [Entitic mass] 32.9 pg 27.0-32.0 [facility] Nucleated RBC/100 WBC (Bld) [Ratio] 0 % 0-5 [facility] MCHC Auto (RBC) [Mass/Vol]Or dered By: Claudia Anderson on 12-20-2022 MCHC (RBC) [Mass/Vol] 31.6 g/dL 32-36 [facility] No Panel InformationOrdered By: Claudia Anderson on 12-20-2022 Estimated GFR (MDRD) Amer 97 mL/min >60 [facility] Comment on above: GFR Calc Estimated GFR (MDRD) Non-Af Amer 80 mL/min >60 [facility] Comment on above: Non- GFR Calc Platelets bldOrdered By: Po Anderson on 12-20-2022 Platelets (Bld) [#/Vol] 316 10*3/uL 150-450 [facility] Serum or plasma C reactive p rotein measurement (mass/volume)Ordered By: Claudia Anderson on 12-20-2022 CRP [Mass/Vol] 35.70 mg/L 0.0-3.0 [facility] Comment on above: C-Reactive Protein ( CRP) provides useful information for thediagnosis, therapy and monitoring of inflammatory processesand associated diseases. For the evaluation of Relative Riskfor Cardiovascular Disease, a High Sensitivity CRP (HSCRP)should be ordered. Serum or plasma calcium moriah urement (mass/volume)Ordered By: Claudia Anderson on 12-20-2022 Calcium [Mass/Vol] 8.7 mg/dL 8.5-10.1 [facility] Serum or plasma creatinine m easurement (mass/volume)Ordered By: Claudia Anderson on 12-20-2022 Creatinine [Mass/Vol] 0.76 mg/dL 0.55-1.02 [facility] Comment on above: The validity of the calculated GFR & GFRAA in patients over 70 years has not been determined. Clinical correlation is essential. Serum or plasma urea nitroge n measurement (mass/volume)Ordered By: Claudiasimran Anderson on 12-20-2022 Urea nitrogen [Mass/Vol] 7 mg/dL 7-18 [facility] Thin prep Papanicolaou smear with manual screeningOrdered By: Claudiasimran Anderson on 12-20-2022 Thin prep Papanicolaou smear with manual screening 2 5-15 [facility] Absolute lymphocyte countOrd ered By: Claudia Anderson on 12-17-2022 Lymphocytes Auto (Unsp spec) [#/Vol] 1.47 10*3/uL 0.83-4.51 [facility] Basophil percentageOrdered B y: Claudia Anderson on 12-17-2022 Basophils/100 WBC (Bld) 0.5 % 0-1 [facility] Chloride [Moles/Vol] 104 mmol/L 98-107 [facility] Eosinophils/100 WBC (Bld) 6.7 % 0-5 [facility] Glucose [Mass/Vol] 80 mg/dL 74-106 [facility] Neutrophils (Bld) [#/Vol] 3.3 10*3/uL 2.0-7.7 [facility] Neutrophils/100 WBC (Bld) 55.8 % 47-70 [facility] Potassium [Moles/Vol] 4.1 mmol/L 3.5-5.1 [facility] Sodium [Moles/Vol] 136 mmol/L 136-145 [facility] WBC (Bld) [#/Vol] 6.0 10*3/uL 4.4-11.0 [facility] Blood erythrocytes count (nu mber/volume)Ordered By: Claudia Anderson on 12-17-2022 RBC (Bld) [#/Vol] 3.41 10*6/uL 4.2-5.4 [facility] Blood hemoglobin measurement (mass/volume)Ordered By: Claudia Anderson on 12-17-2022 Hemoglobin (Bld) [Mass/Vol] 10.7 g/dL 12.0-15.0 [facility] Blood lymphocytes/100 leukoc ytesOrdered By: Claudia Anderson on 12-17-2022 Lymphocytes/100 WBC (Bld) 24.6 % 19-41 [facility] Blood monocytes/100 leukocyt esOrdered By: Claudia Anderson on 12-17-2022 Monocytes/100 WBC (Bld) 12.1 % 0-10 [facility] Blood platelet mean volumeOr dered By: Claudia Anderson on 12-17-2022 Platelet mean volume (Bld) [Entitic vol] 9.6 fL 6.2-12.0 [facility] Determination of erythrocyte mean corpuscular volume (MCV)Ordered By: Claudia Anderson on 12-17-2022 MCV (RBC) [Entitic vol] 103.2 fL 81-99 [facility] Hematocrit Auto (Bld) [Volum e fraction]Ordered By: Claudia Anderson on 12-17-2022 Hematocrit (Bld) [Volume fraction] 35.2 % 37-47 [facility] - Chemistry and C hemistry - challengeOrdered By: Claudia Anderson on 12-17-2022 CO2 [Moles/Vol] 30.0 mmol/L 21.0-32.0 [facility] Urea nitrogen/Creatinine [Mass ratio] 15.9 mg/mg 10-20 [facility] - Hematology and Cell countsOrdered By: Claudia Anderson on 12-17-2022 Erythrocyte distribution width (RBC) [Entitic vol] 53.8 fL 35.1-43.9 [facility] Erythrocyte distribution width (RBC) [Ratio] 14.1 % 11.6-14.6 [facility] Immature granulocytes/100 WBC (Bld) 0.300 % 0.0-0.9 [facility] Comment on above: IG% - Immature Granu locytes (promyelocytes, myelocytes and metamyelocytes) > 1% indicates that a LEFT SHIFT is Present. MCH (RBC) [Entitic mass] 31.4 pg 27.0-32.0 [facility] Nucleated RBC/100 WBC (Bld) [Ratio] 0 % 0-5 [facility] MCHC Auto (RBC) [Mass/Vol]Or dered By: Claudia Anderson on 12-17-2022 MCHC (RBC) [Mass/Vol] 30.4 g/dL 32-36 [facility] Comment on above: Delta: 32.5 on 12/15-1000 No Panel InformationOrdered By: Claudia Anderson on 12-17-2022 Estimated GFR (MDRD) Amer 107 mL/min >60 [facility] Comment on above: GFR Calc Estimated GFR (MDRD) Non-Af Amer 89 mL/min >60 [facility] Comment on above: Non- GFR Calc Platelets bldOrdered By: Po Anderson on 12-17-2022 Platelets (Bld) [#/Vol] 231 10*3/uL 150-450 [facility] Serum or plasma C reactive p rotein measurement (mass/volume)Ordered By: Claudia Anderson on 12-17-2022 CRP [Mass/Vol] 160.00 mg/L 0.0-3.0 [facility] Comment on above: C-Reactive Protein ( CRP) provides useful information for thediagnosis, therapy and monitoring of inflammatory processesand associated diseases. For the evaluation of Relative Riskfor Cardiovascular Disease, a High Sensitivity CRP (HSCRP)should be ordered. Serum or plasma calcium moriah urement (mass/volume)Ordered By: Claudia Anderson on 12-17-2022 Calcium [Mass/Vol] 8.2 mg/dL 8.5-10.1 [facility] Serum or plasma creatinine m easurement (mass/volume)Ordered By: Claudia Anderson on 12-17-2022 Creatinine [Mass/Vol] 0.69 mg/dL 0.55-1.02 [facility] Comment on above: The validity of the calculated GFR & GFRAA in patients over 70 years has not been determined. Clinical correlation is essential. Serum or plasma urea nitroge n measurement (mass/volume)Ordered By: Claudia Anderson on 12-17-2022 Urea nitrogen [Mass/Vol] 11 mg/dL 7-18 [facility] Thin prep Papanicolaou smear with manual screeningOrdered By: Claudia Anderson on 12-17-2022 Thin prep Papanicolaou smear with manual screening 2 5-15 [facility] Absolute lymphocyte countOrd ered By: Oniel Valente on 12-15-2022 Lymphocytes Auto (Unsp spec) [#/Vol] 1.45 10*3/uL 0.83-4.51 [facility] Basophil percentageOrdered B y: Oniel Valente on 12-15-2022 Basophil percentage 0 SEEN /hpf 0-5 [facility] Ammonia (P) [Moles/Vol] 20.0 umol/L 11-32 [facility] Basophils/100 WBC (Bld) 0.4 % 0-1 [facility] Bilirubin [Mass/Vol] 0.20 mg/dL 0.20-1.00 [facility] Comment on above: For patients on eltr ombopag therapy, use of Dimension [place] TBIL is not recommended. Chloride [Moles/Vol] 101 mmol/L 98-107 [facility] Eosinophils/100 WBC (Bld) 2.2 % 0-5 [facility] Glucose [Mass/Vol] 98 mg/dL 74-106 [facility] Neutrophils (Bld) [#/Vol] 6.5 10*3/uL 2.0-7.7 [facility] Neutrophils/100 WBC (Bld) 68.4 % 47-70 [facility] Potassium [Moles/Vol] 4.0 mmol/L 3.5-5.1 [facility] Protein [Mass/Vol] 6.3 g/dL 6.4-8.2 [facility] Sodium [Moles/Vol] 134 mmol/L 136-145 [facility] WBC (Bld) [#/Vol] 9.5 10*3/uL 4.4-11.0 [facility] Bilirubin Test strip Ql (U)O rdered By: Oniel Valente on 12-15-2022 Bilirubin Ql (U) Negative Negative [facility] Blood erythrocytes count (nu mber/volume)Ordered By: Oniel Valente on 12-15-2022 RBC (Bld) [#/Vol] 3.62 10*6/uL 4.2-5.4 [facility] Blood hemoglobin measurement (mass/volume)Ordered By: Oniel Valente on 12-15-2022 Hemoglobin (Bld) [Mass/Vol] 11.8 g/dL 12.0-15.0 [facility] Blood lymphocytes/100 leukoc ytesOrdered By: Oniel Valente on 12-15-2022 Lymphocytes/100 WBC (Bld) 15.3 % 19-41 [facility] Blood monocytes/100 leukocyt esOrdered By: Oniel Valente on 12-15-2022 Monocytes/100 WBC (Bld) 13.3 % 0-10 [facility] Blood platelet mean volumeOr dered By: Oniel Valente on 12-15-2022 Platelet mean volume (Bld) [Entitic vol] 9.0 fL 6.2-12.0 [facility] Determination of erythrocyte mean corpuscular volume (MCV)Ordered By: Oniel Valente on 12-15-2022 MCV (RBC) [Entitic vol] 100.3 fL 81-99 [facility] Hematocrit Auto (Bld) [Volum e fraction]Ordered By: Oniel Valente on 12-15-2022 Hematocrit (Bld) [Volume fraction] 36.3 % 37-47 [facility] Influenza virus A and B and SARS-CoV-2 (COVID-19) Ag panel - Upper respiratory specimOrdered By: Oniel Valente on 12-15-2022 SARS-CoV-2 & FLU Antigen (Rapid) SARS-CoV-2 (COVID 19) [facility] SARS-CoV-2 & FLU Antigen (Rapid) SARS-CoV-2 (COVID 19) [facility] Ketones Test strip Ql (U)Ord ered By: Oniel Valente on 12-15-2022 Ketones Ql (U) Negative Negative [facility] - Chemistry and C hemistry - challengeOrdered By: Oniel Valente on 12-15-2022 ALP [Catalytic activity/Vol] 95 U/L 45-117 [facility] ALT [Catalytic activity/Vol] 14 U/L 13-56 [facility] CO2 [Moles/Vol] 30.0 mmol/L 21.0-32.0 [facility] Globulin (S) [Mass/Vol] 3.5 g/dL 2.2-4.2 [facility] Urea nitrogen/Creatinine [Mass ratio] 12.5 mg/mg 10-20 [facility] - Hematology and Cell countsOrdered By: Oniel Valente on 12-15-2022 Erythrocyte distribution width (RBC) [Entitic vol] 51.2 fL 35.1-43.9 [facility] Erythrocyte distribution width (RBC) [Ratio] 13.8 % 11.6-14.6 [facility] Immature granulocytes/100 WBC (Bld) 0.400 % 0.0-0.9 [facility] Comment on above: IG% - Immature Granu locytes (promyelocytes, myelocytes and metamyelocytes) > 1% indicates that a LEFT SHIFT is Present. MCH (RBC) [Entitic mass] 32.6 pg 27.0-32.0 [facility] Nucleated RBC/100 WBC (Bld) [Ratio] 0 % 0-5 [facility] MCHC Auto (RBC) [Mass/Vol]Or dered By: Oniel Valente on 12-15-2022 MCHC (RBC) [Mass/Vol] 32.5 g/dL 32-36 [facility] Mucus LM Ql (Urine sed)Order ed By: Oniel Valente on 12-15-2022 Mucus Ql (Urine sed) 0 SEEN /hpf [facility] Nitrite Test strip Ql (U)Ord ered By: Oniel Valente on 12-15-2022 Nitrite Ql (U) Negative Negative [facility] No Panel InformationOrdered By: Oniel Valente on 12-15-2022 Estimated Creatinine Clearance Calc 42.12 ml/min [facility] Estimated GFR (MDRD) Amer 81 mL/min >60 [facility] Comment on above: GFR Calc Estimated GFR (MDRD) Non-Af Amer 67 mL/min >60 [facility] Comment on above: Non- GFR Calc Troponin I High Sensitivity 7 pg/mL 3.0-54.0 [facility] Comment on above: Please Note: New Nicolasa t Units and Gender Specific Reference Ranges. For more information see Policy Stat Procedure [place] High Sensitivity Troponin (TNIH) and attachments. Platelets bldOrdered By: Fredy Valente on 12-15-2022 Platelets (Bld) [#/Vol] 229 10*3/uL 150-450 [facility] Protein Test strip Ql (U)Ord ered By: Oniel Valente on 12-15-2022 Protein Ql (U) Negative Negative [facility] Serum or plasma albumin moriah urement (mass/volume)Ordered By: Oniel Valente on 12-15-2022 Albumin [Mass/Vol] 2.8 g/dL 3.2-5.0 [facility] Serum or plasma albumin/glob ulin mass ratioOrdered By: Oniel Valente on 12-15-2022 Albumin/Globulin [Mass ratio] 0.8 {ratio} 0.9-2.4 [facility] Serum or plasma calcium moriah urement (mass/volume)Ordered By: Oniel Valente on 12-15-2022 Calcium [Mass/Vol] 8.3 mg/dL 8.5-10.1 [facility] Serum or plasma creatinine m easurement (mass/volume)Ordered By: Oniel Valente on 12-15-2022 Creatinine [Mass/Vol] 0.88 mg/dL 0.55-1.02 [facility] Comment on above: The validity of the calculated GFR & GFRAA in patients over 70 years has not been determined. Clinical correlation is essential. Serum or plasma urea nitroge n measurement (mass/volume)Ordered By: Oniel Valente on 12-15-2022 Urea nitrogen [Mass/Vol] 11 mg/dL 7-18 [facility] Squamous epithelial cells de tection in urine sediment by light microscopyOrdered By: Oniel Valente on 12-15-2022 Epithelial cells.squamous LM Ql (Urine sed) 0 SEEN /hpf 5-10 [facility] Thin prep Papanicolaou smear with manual screeningOrdered By: Oniel Valente on 12-15-2022 Thin prep Papanicolaou smear with manual screening 13 U/L 15-37 [facility] Thin prep Papanicolaou smear with manual screening 3 5-15 [facility] Urine blood detectionOrdered By: Oniel Valente on 12-15-2022 RBC Ql (U) Negative Negative [facility] RBC Ql (U) 0 SEEN /hpf 0-5 [facility] Urine clarityOrdered By: Fredy Valente on 12-15-2022 Clarity (U) Clear Clear [facility] Urine color determinationOrd ered By: Oniel Valente on 12-15-2022 Color (U) Yellow Yellow [facility] Urine glucose detectionOrder ed By: Oniel Valente on 12-15-2022 Glucose Ql (U) Normal mg/dl Normal [facility] Urine leukocyte esterase det ection by dipstickOrdered By: Oniel Valente on 12-15-2022 Leukocyte esterase Test strip Ql (U) Negative Negative [facility] Urine pHOrdered By: Oniel arana on 12-15-2022 pH (U) 7.0 [pH] 5.0 - 8.0 [facility] Urine sediment bacteria coun t by microscopy (number/high power field)Ordered By: Oniel Valente on 12-15-2022 Bacteria LM.HPF (Urine sed) [#/Area] 0 /[HPF] None Seen [facility] Urine specific gravity measu rementOrdered By: Oniel Valente on 12-15-2022 Specific gravity (U) [Rel density] 1.010 1.002-1.030 [facility] Urobilinogen Auto test strip Ql (U)Ordered By: Oniel Valente on 12-15-2022 Urobilinogen Ql (U) Normal mg/dl Normal [facility] Basophil percentageOrdered B y: Claudia Anderson on 11-17-2022 Basophil percentage < 10.0 umol/L [facility] Absolute lymphocyte countOrd ered By: Claudia Anderson on 09-29-2022 Lymphocytes Auto (Unsp spec) [#/Vol] 2.37 10*3/uL 0.83-4.51 [facility] Basophil percentageOrdered B y: Claudia Anderson on 09-29-2022 Basophils/100 WBC (Bld) 0.9 % 0-1 [facility] Chloride [Moles/Vol] 107 mmol/L 98-107 [facility] Eosinophils/100 WBC (Bld) 5.0 % 0-5 [facility] Glucose [Mass/Vol] 79 mg/dL 74-106 [facility] Neutrophils (Bld) [#/Vol] 1.5 10*3/uL 2.0-7.7 [facility] Neutrophils/100 WBC (Bld) 31.8 % 47-70 [facility] Potassium [Moles/Vol] 3.8 mmol/L 3.5-5.1 [facility] Sodium [Moles/Vol] 142 mmol/L 136-145 [facility] WBC (Bld) [#/Vol] 4.6 10*3/uL 4.4-11.0 [facility] Blood erythrocytes count (nu mber/volume)Ordered By: Claudia Anderson on 09-29-2022 RBC (Bld) [#/Vol] 3.68 10*6/uL 4.2-5.4 [facility] Blood hemoglobin measurement (mass/volume)Ordered By: Claudia Anderson on 09-29-2022 Hemoglobin (Bld) [Mass/Vol] 11.7 g/dL 12.0-15.0 [facility] Blood lymphocytes/100 leukoc ytesOrdered By: Claudia Anderson on 09-29-2022 Lymphocytes/100 WBC (Bld) 52.0 % 19-41 [facility] Blood monocytes/100 leukocyt esOrdered By: Claudia Anderson on 09-29-2022 Monocytes/100 WBC (Bld) 10.1 % 0-10 [facility] Blood platelet mean volumeOr dered By: Claudia Anderson on 09-29-2022 Platelet mean volume (Bld) [Entitic vol] 9.7 fL 6.2-12.0 [facility] Determination of erythrocyte mean corpuscular volume (MCV)Ordered By: Claudia Anderson on 09-29-2022 MCV (RBC) [Entitic vol] 100.8 fL 81-99 [facility] Hematocrit Auto (Bld) [Volum e fraction]Ordered By: Claudia Anderson on 09-29-2022 Hematocrit (Bld) [Volume fraction] 37.1 % 37-47 [facility] - Chemistry and C hemistry - challengeOrdered By: Claudia Anderson on 09-29-2022 CO2 [Moles/Vol] 31.0 mmol/L 21.0-32.0 [facility] Urea nitrogen/Creatinine [Mass ratio] 7.1 mg/mg 10-20 [facility] - Hematology and Cell countsOrdered By: Claudia Anderson on 09-29-2022 Erythrocyte distribution width (RBC) [Entitic vol] 50.7 fL 35.1-43.9 [facility] Erythrocyte distribution width (RBC) [Ratio] 13.6 % 11.6-14.6 [facility] Immature granulocytes/100 WBC (Bld) 0.200 % 0.0-0.9 [facility] Comment on above: IG% - Immature Granu locytes (promyelocytes, myelocytes and metamyelocytes) > 1% indicates that a LEFT SHIFT is Present. MCH (RBC) [Entitic mass] 31.8 pg 27.0-32.0 [facility] Nucleated RBC/100 WBC (Bld) [Ratio] 0 % 0-5 [facility] MCHC Auto (RBC) [Mass/Vol]Or dered By: Claudia Anderson on 09-29-2022 MCHC (RBC) [Mass/Vol] 31.5 g/dL 32-36 [facility] No Panel InformationOrdered By: Claudia Anderson on 09-29-2022 Estimated GFR (MDRD) Amer 105 mL/min >60 [facility] Comment on above: GFR Calc Estimated GFR (MDRD) Non-Af Amer 87 mL/min >60 [facility] Comment on above: Non- GFR Calc Platelets bldOrdered By: Po Anderson on 09-29-2022 Platelets (Bld) [#/Vol] 269 10*3/uL 150-450 [facility] Serum or plasma calcium moriah urement (mass/volume)Ordered By: Claudia Anderson on 09-29-2022 Calcium [Mass/Vol] 8.3 mg/dL 8.5-10.1 [facility] Serum or plasma creatinine m easurement (mass/volume)Ordered By: Claudia Anderson on 09-29-2022 Creatinine [Mass/Vol] 0.71 mg/dL 0.55-1.02 [facility] Comment on above: The validity of the calculated GFR & GFRAA in patients over 70 years has not been determined. Clinical correlation is essential. Serum or plasma urea nitroge n measurement (mass/volume)Ordered By: Claudia Anderson on 09-29-2022 Urea nitrogen [Mass/Vol] 5 mg/dL 7-18 [facility] Thin prep Papanicolaou smear with manual screeningOrdered By: Claudia Anderson on 09-29-2022 Thin prep Papanicolaou smear with manual screening 4 5-15 [facility] Absolute lymphocyte countOrd ered By: Claudia Anderson on 09-22-2022 Lymphocytes Auto (Unsp spec) [#/Vol] 2.33 10*3/uL 0.83-4.51 [facility] Basophil percentageOrdered B y: Claudia Anderson on 09-22-2022 Basophils/100 WBC (Bld) 0.6 % 0-1 [facility] Chloride [Moles/Vol] 107 mmol/L 98-107 [facility] Eosinophils/100 WBC (Bld) 6.0 % 0-5 [facility] Glucose [Mass/Vol] 78 mg/dL 74-106 [facility] Neutrophils (Bld) [#/Vol] 2.9 10*3/uL 2.0-7.7 [facility] Neutrophils/100 WBC (Bld) 45.4 % 47-70 [facility] Potassium [Moles/Vol] 4.2 mmol/L 3.5-5.1 [facility] Sodium [Moles/Vol] 140 mmol/L 136-145 [facility] WBC (Bld) [#/Vol] 6.3 10*3/uL 4.4-11.0 [facility] Blood erythrocytes count (nu mber/volume)Ordered By: Claudia Anderson on 09-22-2022 RBC (Bld) [#/Vol] 3.55 10*6/uL 4.2-5.4 [facility] Blood hemoglobin measurement (mass/volume)Ordered By: Claudia Anderson on 09-22-2022 Hemoglobin (Bld) [Mass/Vol] 11.4 g/dL 12.0-15.0 [facility] Blood lymphocytes/100 leukoc ytesOrdered By: Claudia Anderson on 09-22-2022 Lymphocytes/100 WBC (Bld) 36.9 % 19-41 [facility] Blood monocytes/100 leukocyt esOrdered By: Claudia Anderson on 09-22-2022 Monocytes/100 WBC (Bld) 10.8 % 0-10 [facility] Blood platelet mean volumeOr dered By: Claudia Anderson on 09-22-2022 Platelet mean volume (Bld) [Entitic vol] 10.1 fL 6.2-12.0 [facility] Determination of erythrocyte mean corpuscular volume (MCV)Ordered By: Claudia Anderson on 09-22-2022 MCV (RBC) [Entitic vol] 103.1 fL 81-99 [facility] Hematocrit Auto (Bld) [Volum e fraction]Ordered By: Claudia Anderson on 09-22-2022 Hematocrit (Bld) [Volume fraction] 36.6 % 37-47 [facility] - Chemistry and C hemistry - challengeOrdered By: Claudia Anderson on 09-22-2022 CO2 [Moles/Vol] 28.0 mmol/L 21.0-32.0 [facility] Urea nitrogen/Creatinine [Mass ratio] 11.8 mg/mg 10-20 [facility] - Hematology and Cell countsOrdered By: Claudia Anderson on 09-22-2022 Erythrocyte distribution width (RBC) [Entitic vol] 53.5 fL 35.1-43.9 [facility] Erythrocyte distribution width (RBC) [Ratio] 13.9 % 11.6-14.6 [facility] Immature granulocytes/100 WBC (Bld) 0.300 % 0.0-0.9 [facility] Comment on above: IG% - Immature Granu locytes (promyelocytes, myelocytes and metamyelocytes) > 1% indicates that a LEFT SHIFT is Present. MCH (RBC) [Entitic mass] 32.1 pg 27.0-32.0 [facility] Nucleated RBC/100 WBC (Bld) [Ratio] 0 % 0-5 [facility] MCHC Auto (RBC) [Mass/Vol]Or dered By: Claudia Anderson on 09-22-2022 MCHC (RBC) [Mass/Vol] 31.1 g/dL 32-36 [facility] No Panel InformationOrdered By: Claudia Anderson on 09-22-2022 Estimated GFR (MDRD) Amer 96 mL/min >60 [facility] Comment on above: GFR Calc Estimated GFR (MDRD) Non-Af Amer 79 mL/min >60 [facility] Comment on above: Non- GFR Calc Platelets bldOrdered By: Po Anderson on 09-22-2022 Platelets (Bld) [#/Vol] 242 10*3/uL 150-450 [facility] Serum or plasma calcium moriah urement (mass/volume)Ordered By: Claudia Anderson on 09-22-2022 Calcium [Mass/Vol] 8.5 mg/dL 8.5-10.1 [facility] Serum or plasma creatinine m easurement (mass/volume)Ordered By: Claudia Anderson on 09-22-2022 Creatinine [Mass/Vol] 0.76 mg/dL 0.55-1.02 [facility] Comment on above: The validity of the calculated GFR & GFRAA in patients over 70 years has not been determined. Clinical correlation is essential. Serum or plasma urea nitroge n measurement (mass/volume)Ordered By: Claudia Anderson on 09-22-2022 Urea nitrogen [Mass/Vol] 9 mg/dL 7-18 [facility] Thin prep Papanicolaou smear with manual screeningOrdered By: Claudia Anderson on 09-22-2022 Thin prep Papanicolaou smear with manual screening 5 5-15 [facility] Absolute lymphocyte countOrd ered By: Claudia Anderson on 09-15-2022 Lymphocytes Auto (Unsp spec) [#/Vol] 2.14 10*3/uL 0.83-4.51 [facility] Basophil percentageOrdered B y: Claudia Anderson on 06-28-2023 Basophils/100 WBC (Bld) 1.0 % 0-1 [facility] Chloride [Moles/Vol] 110 mmol/L 98-107 [facility] Eosinophils/100 WBC (Bld) 7.0 % 0-5 [facility] Glucose [Mass/Vol] 79 mg/dL 74-106 [facility] Neutrophils (Bld) [#/Vol] 2.0 10*3/uL 2.0-7.7 [facility] Neutrophils/100 WBC (Bld) 38.2 % 47-70 [facility] Potassium [Moles/Vol] 4.4 mmol/L 3.5-5.1 [facility] Sodium [Moles/Vol] 141 mmol/L 136-145 [facility] WBC (Bld) [#/Vol] 5.1 10*3/uL 4.4-11.0 [facility] Blood erythrocytes count (nu mber/volume)Ordered By: Claudia Anderson on 09-15-2022 RBC (Bld) [#/Vol] 3.49 10*6/uL 4.2-5.4 [facility] Blood hemoglobin measurement (mass/volume)Ordered By: Claudia Anderson on 09-15-2022 Hemoglobin (Bld) [Mass/Vol] 11.0 g/dL 12.0-15.0 [facility] Blood lymphocytes/100 leukoc ytesOrdered By: Claudia Anderson on 09-15-2022 Lymphocytes/100 WBC (Bld) 41.9 % 19-41 [facility] Blood monocytes/100 leukocyt esOrdered By: Claudia Anderson on 09-15-2022 Monocytes/100 WBC (Bld) 11.7 % 0-10 [facility] Blood platelet mean volumeOr dered By: Claudia Anderson on 09-15-2022 Platelet mean volume (Bld) [Entitic vol] 10.0 fL 6.2-12.0 [facility] Determination of erythrocyte mean corpuscular volume (MCV)Ordered By: Claudia Anderson on 09-15-2022 MCV (RBC) [Entitic vol] 102.0 fL 81-99 [facility] Hematocrit Auto (Bld) [Volum e fraction]Ordered By: Claudia Anderson on 09-15-2022 Hematocrit (Bld) [Volume fraction] 35.6 % 37-47 [facility] - Chemistry and C hemistry - challengeOrdered By: Claudia Anderson on 09-15-2022 CO2 [Moles/Vol] 28.0 mmol/L 21.0-32.0 [facility] Urea nitrogen/Creatinine [Mass ratio] 15.2 mg/mg 10-20 [facility] - Hematology and Cell countsOrdered By: Claudia Anderson on 09-15-2022 Erythrocyte distribution width (RBC) [Entitic vol] 52.8 fL 35.1-43.9 [facility] Erythrocyte distribution width (RBC) [Ratio] 14.1 % 11.6-14.6 [facility] Immature granulocytes/100 WBC (Bld) 0.200 % 0.0-0.9 [facility] Comment on above: IG% - Immature Granu locytes (promyelocytes, myelocytes and metamyelocytes) > 1% indicates that a LEFT SHIFT is Present. MCH (RBC) [Entitic mass] 31.5 pg 27.0-32.0 [facility] Nucleated RBC/100 WBC (Bld) [Ratio] 0 % 0-5 [facility] MCHC Auto (RBC) [Mass/Vol]Or dered By: Claudia Anderson on 09-15-2022 MCHC (RBC) [Mass/Vol] 30.9 g/dL 32-36 [facility] No Panel InformationOrdered By: Claudia Anderson on 09-15-2022 Estimated GFR (MDRD) Amer 84 mL/min >60 [facility] Comment on above: GFR Calc Estimated GFR (MDRD) Non-Af Amer 70 mL/min >60 [facility] Comment on above: Non- GFR Calc Platelets bldOrdered By: Po Anderson on 09-15-2022 Platelets (Bld) [#/Vol] 277 10*3/uL 150-450 [facility] Serum or plasma calcium moriah urement (mass/volume)Ordered By: Claudia Anderson on 09-15-2022 Calcium [Mass/Vol] 8.0 mg/dL 8.5-10.1 [facility] Serum or plasma creatinine m easurement (mass/volume)Ordered By: Claudia Anderson on 09-15-2022 Creatinine [Mass/Vol] 0.85 mg/dL 0.55-1.02 [facility] Comment on above: The validity of the calculated GFR & GFRAA in patients over 70 years has not been determined. Clinical correlation is essential. Serum or plasma urea nitroge n measurement (mass/volume)Ordered By: Claudia Anderson on 09-15-2022 Urea nitrogen [Mass/Vol] 13 mg/dL 7-18 [facility] Thin prep Papanicolaou smear with manual screeningOrdered By: Claudia Anderson on 09-15-2022 Thin prep Papanicolaou smear with manual screening 3 5-15 [facility] Absolute lymphocyte countOrd ered By: Dr. Anderson on 09-08-2022 Lymphocytes Auto (Unsp spec) [#/Vol] 2.41 10*3/uL 0.83-4.51 [facility] Basophil percentageOrdered B y: Dr. Anderson on 09-08-2022 Basophil percentage 84 mg/dL 74-106 [facility] Basophil percentage 139 mmol/L 136-145 [facility] Basophil percentage 4.6 mmol/L 3.5-5.1 [facility] Basophil percentage 106 mmol/L 98-107 [facility] Basophils (Bld) [#/Vol] 5.9 10*3/uL 4.4-11.0 [facility] Basophils (Bld) [#/Vol] 2.4 10*3/uL 2.0-7.7 [facility] Basophils/100 WBC (Bld) 40.7 % 47-70 [facility] Basophils/100 WBC (Bld) 6.6 % 0-5 [facility] Basophils/100 WBC (Bld) 0.8 % 0-1 [facility] Basophil percentageOrdered B y: Claudia Anderson on 09-08-2022 Chloride [Moles/Vol] 106 mmol/L 98-107 [facility] Eosinophils/100 WBC (Bld) 6.6 % 0-5 [facility] Glucose [Mass/Vol] 84 mg/dL 74-106 [facility] Neutrophils (Bld) [#/Vol] 2.4 10*3/uL 2.0-7.7 [facility] Neutrophils/100 WBC (Bld) 40.7 % 47-70 [facility] Potassium [Moles/Vol] 4.6 mmol/L 3.5-5.1 [facility] Sodium [Moles/Vol] 139 mmol/L 136-145 [facility] WBC (Bld) [#/Vol] 5.9 10*3/uL 4.4-11.0 [facility] Blood erythrocytes count (nu mber/volume)Ordered By: Dr. Anderson on 09-08-2022 RBC (Bld) [#/Vol] 3.63 10*6/uL 4.2-5.4 [facility] Blood hemoglobin measurement (mass/volume)Ordered By: Dr. Anderson on 09-08-2022 Hemoglobin (Bld) [Mass/Vol] 11.5 g/dL 12.0-15.0 [facility] Blood lymphocytes/100 leukoc ytesOrdered By: Dr. Anderson on 09-08-2022 Lymphocytes/100 WBC (Bld) 40.8 % 19-41 [facility] Blood monocytes/100 leukocyt esOrdered By: Dr. Anderson on 09-08-2022 Monocytes/100 WBC (Bld) 10.8 % 0-10 [facility] Blood platelet mean volumeOr dered By: Dr. Anderson on 09-08-2022 Platelet mean volume (Bld) [Entitic vol] 9.9 fL 6.2-12.0 [facility] Determination of erythrocyte mean corpuscular volume (MCV)Ordered By: Dr. Anderson on 09-08-2022 MCV (RBC) [Entitic vol] 102.8 fL 81-99 [facility] Hematocrit Auto (Bld) [Volum e fraction]Ordered By: Dr. Anderson on 09-08-2022 Hematocrit (Bld) [Volume fraction] 37.3 % 37-47 [facility] - Chemistry and C hemistry - challengeOrdered By: Claudia Anderson on 09-08-2022 CO2 [Moles/Vol] 29.0 mmol/L 21.0-32.0 [facility] Urea nitrogen/Creatinine [Mass ratio] 14.0 mg/mg 10-20 [facility] - Hematology and Cell countsOrdered By: Claudia Anderson on 09-08-2022 Erythrocyte distribution width (RBC) [Entitic vol] 51.6 fL 35.1-43.9 [facility] Erythrocyte distribution width (RBC) [Ratio] 13.6 % 11.6-14.6 [facility] Immature granulocytes/100 WBC (Bld) 0.300 % 0.0-0.9 [facility] Comment on above: IG% - Immature Granu locytes (promyelocytes, myelocytes and metamyelocytes) > 1% indicates that a LEFT SHIFT is Present. MCH (RBC) [Entitic mass] 31.7 pg 27.0-32.0 [facility] Nucleated RBC/100 WBC (Bld) [Ratio] 0 % 0-5 [facility] MCHC Auto (RBC) [Mass/Vol]Or dered By: Dr. Anderson on 09-08-2022 MCHC (RBC) [Mass/Vol] 30.8 g/dL 32-36 [facility] No Panel InformationOrdered By: Claudia Anderson on 09-08-2022 Estimated GFR (MDRD) Amer 84 mL/min >60 [facility] Comment on above: GFR Calc Estimated GFR (MDRD) Non-Af Amer 69 mL/min >60 [facility] Comment on above: Non- GFR Calc Vitamin D 25-Hydroxy 49.5 ng/mL [facility] Comment on above: Vitamin D 25(OH) Sta tus Range Deficiency <20 ng/mL (50nmol/L) Insufficiency 20 - 30 ng/mL (50 - 75 nmol/L) Sufficiency 30 - 100 ng/mL (75 - 250 nmol/L) Toxicity >100 ng/mL (>250 nmol/L) No Panel InformationOrdered By: Dr. Anderson on 09-08-2022 31.7 pg 27.0-32.0 [facility] 13.6 % 11.6-14.6 [facility] 51.6 fl 35.1-43.9 [facility] 0.300 % 0.0-0.9 [facility] 0 % 0-5 [facility] 69 mL/min >60 [facility] 84 mL/min >60 [facility] 14.0 RATIO 10-20 [facility] 29.0 mmol/L 21.0-32.0 [facility] 49.5 ng/mL [facility] Platelets bldOrdered By: Dr. Anderson on 09-08-2022 Platelets (Bld) [#/Vol] 270 10*3/uL 150-450 [facility] Serum or plasma calcium moriah urement (mass/volume)Ordered By: Dr. Anderson on 09-08-2022 Calcium [Mass/Vol] 8.7 mg/dL 8.5-10.1 [facility] Serum or plasma creatinine m easurement (mass/volume)Ordered By: Dr. Anderson on 09-08-2022 Creatinine [Mass/Vol] 0.86 mg/dL 0.55-1.02 [facility] Comment on above: The validity of the calculated GFR & GFRAA in patients over 70 years has not been determined. Clinical correlation is essential. Serum or plasma urea nitroge n measurement (mass/volume)Ordered By: Dr. Anderson on 09-08-2022 Urea nitrogen [Mass/Vol] 12 mg/dL 7-18 [facility] Thin prep Papanicolaou smear with manual screeningOrdered By: Dr. Anderson on 09-08-2022 Thin prep Papanicolaou smear with manual screening 4 5-15 [facility] Absolute lymphocyte countOrd ered By: Dr. Anderson on 09-01-2022 Lymphocytes Auto (Unsp spec) [#/Vol] 2.48 10*3/uL 0.83-4.51 [facility] Basophil percentageOrdered B y: Dr. Anderson on 09-01-2022 Basophil percentage 85 mg/dL 74-106 [facility] Basophil percentage 141 mmol/L 136-145 [facility] Basophil percentage 4.2 mmol/L 3.5-5.1 [facility] Basophil percentage 108 mmol/L 98-107 [facility] Basophils (Bld) [#/Vol] 5.5 10*3/uL 4.4-11.0 [facility] Basophils (Bld) [#/Vol] 1.9 10*3/uL 2.0-7.7 [facility] Basophils/100 WBC (Bld) 34.4 % 47-70 [facility] Basophils/100 WBC (Bld) 8.1 % 0-5 [facility] Basophils/100 WBC (Bld) 0.7 % 0-1 [facility] Basophil percentage 0 SEEN /hpf 0-5 [facility] Basophil percentageOrdered B y: Claudia Anderson on 09-01-2022 Chloride [Moles/Vol] 108 mmol/L 98-107 [facility] Eosinophils/100 WBC (Bld) 8.1 % 0-5 [facility] Glucose [Mass/Vol] 85 mg/dL 74-106 [facility] Neutrophils (Bld) [#/Vol] 1.9 10*3/uL 2.0-7.7 [facility] Neutrophils/100 WBC (Bld) 34.4 % 47-70 [facility] Potassium [Moles/Vol] 4.2 mmol/L 3.5-5.1 [facility] Sodium [Moles/Vol] 141 mmol/L 136-145 [facility] WBC (Bld) [#/Vol] 5.5 10*3/uL 4.4-11.0 [facility] Bilirubin Test strip Ql (U)O rdered By: Dr. Anderson on 09-01-2022 Bilirubin Ql (U) Negative Negative [facility] Blood erythrocytes count (nu mber/volume)Ordered By: Dr. Anderson on 09-01-2022 RBC (Bld) [#/Vol] 3.52 10*6/uL 4.2-5.4 [facility] Blood hemoglobin measurement (mass/volume)Ordered By: Dr. Anderson on 09-01-2022 Hemoglobin (Bld) [Mass/Vol] 11.1 g/dL 12.0-15.0 [facility] Blood lymphocytes/100 leukoc ytesOrdered By: Dr. Anderson on 09-01-2022 Lymphocytes/100 WBC (Bld) 44.8 % 19-41 [facility] Blood monocytes/100 leukocyt esOrdered By: Dr. Anderson on 09-01-2022 Monocytes/100 WBC (Bld) 11.6 % 0-10 [facility] Blood platelet mean volumeOr dered By: Dr. Anderson on 09-01-2022 Platelet mean volume (Bld) [Entitic vol] 9.8 fL 6.2-12.0 [facility] Determination of erythrocyte mean corpuscular volume (MCV)Ordered By: Dr. Anderson on 09-01-2022 MCV (RBC) [Entitic vol] 101.7 fL 81-99 [facility] Hematocrit Auto (Bld) [Volum e fraction]Ordered By: Dr. Anderson on 09-01-2022 Hematocrit (Bld) [Volume fraction] 35.8 % 37-47 [facility] Ketones Test strip Ql (U)Ord ered By: Dr. Anderson on 09-01-2022 Ketones Ql (U) Negative Negative [facility] - Chemistry and C hemistry - challengeOrdered By: Claudia Anderson on 09-01-2022 CO2 [Moles/Vol] 29.0 mmol/L 21.0-32.0 [facility] Urea nitrogen/Creatinine [Mass ratio] 13.8 mg/mg 10-20 [facility] - Hematology and Cell countsOrdered By: Claudia Anderson on 09-01-2022 Erythrocyte distribution width (RBC) [Entitic vol] 51.1 fL 35.1-43.9 [facility] Erythrocyte distribution width (RBC) [Ratio] 13.7 % 11.6-14.6 [facility] Immature granulocytes/100 WBC (Bld) 0.400 % 0.0-0.9 [facility] Comment on above: IG% - Immature Granu locytes (promyelocytes, myelocytes and metamyelocytes) > 1% indicates that a LEFT SHIFT is Present. MCH (RBC) [Entitic mass] 31.5 pg 27.0-32.0 [facility] Nucleated RBC/100 WBC (Bld) [Ratio] 0 % 0-5 [facility] MCHC Auto (RBC) [Mass/Vol]Or dered By: Dr. Anderson on 09-01-2022 MCHC (RBC) [Mass/Vol] 31.0 g/dL 32-36 [facility] Mucus LM Ql (Urine sed)Order ed By: Dr. Anderson on 09-01-2022 Mucus Ql (Urine sed) 0 SEEN /hpf [facility] Nitrite Test strip Ql (U)Ord ered By: Dr. Anderson on 09-01-2022 Nitrite Ql (U) Negative Negative [facility] No Panel InformationOrdered By: Claudia Anderson on 09-01-2022 Estimated GFR (MDRD) Amer 116 mL/min >60 [facility] Comment on above: GFR Calc Estimated GFR (MDRD) Non-Af Amer 96 mL/min >60 [facility] Comment on above: Non- GFR Calc No Panel InformationOrdered By: Dr. Anderson on 09-01-2022 31.5 pg 27.0-32.0 [facility] 13.7 % 11.6-14.6 [facility] 51.1 fl 35.1-43.9 [facility] 0.400 % 0.0-0.9 [facility] 0 % 0-5 [facility] 96 mL/min >60 [facility] 116 mL/min >60 [facility] 13.8 RATIO 10-20 [facility] 29.0 mmol/L 21.0-32.0 [facility] Platelets bldOrdered By: Dr. Anderson on 09-01-2022 Platelets (Bld) [#/Vol] 262 10*3/uL 150-450 [facility] Protein Test strip Ql (U)Ord ered By: Dr. Anderson on 09-01-2022 Protein Ql (U) Negative Negative [facility] Serum or plasma calcium moriah urement (mass/volume)Ordered By: Dr. Anderson on 09-01-2022 Calcium [Mass/Vol] 8.3 mg/dL 8.5-10.1 [facility] Serum or plasma creatinine m easurement (mass/volume)Ordered By: Dr. Anderson on 09-01-2022 Creatinine [Mass/Vol] 0.65 mg/dL 0.55-1.02 [facility] Comment on above: The validity of the calculated GFR & GFRAA in patients over 70 years has not been determined. Clinical correlation is essential. Serum or plasma urea nitroge n measurement (mass/volume)Ordered By: Dr. Anderson on 09-01-2022 Urea nitrogen [Mass/Vol] 9 mg/dL 7-18 [facility] Squamous epithelial cells de tection in urine sediment by light microscopyOrdered By: Dr. Anderson on 09-01-2022 Epithelial cells.squamous LM Ql (Urine sed) 0 SEEN /hpf 5-10 [facility] Thin prep Papanicolaou smear with manual screeningOrdered By: Dr. Anderson on 09-01-2022 Thin prep Papanicolaou smear with manual screening 4 5-15 [facility] Urine blood detectionOrdered By: Dr. Anderson on 09-01-2022 RBC Ql (U) Negative Negative [facility] RBC Ql (U) 0 SEEN /hpf 0-5 [facility] Urine clarityOrdered By: Dr. Anderson on 09-01-2022 Clarity (U) Sl. Cloudy Clear [facility] Urine color determinationOrd ered By: Dr. Anderson on 09-01-2022 Color (U) Yellow Yellow [facility] Urine glucose detectionOrder ed By: Dr. Anderson on 09-01-2022 Glucose Ql (U) Normal mg/dl Normal [facility] Urine leukocyte esterase det ection by dipstickOrdered By: Dr. Anderson on 09-01-2022 Leukocyte esterase Test strip Ql (U) Negative Negative [facility] Urine pHOrdered By: Dr. Andres owen on 09-01-2022 pH (U) 7.0 [pH] 5.0 - 8.0 [facility] Urine sediment bacteria coun t by microscopy (number/high power field)Ordered By: Dr. Anderson on 09-01-2022 Bacteria LM.HPF (Urine sed) [#/Area] 0 /[HPF] None Seen [facility] Urine specific gravity measu rementOrdered By: Dr. Anderson on 09-01-2022 Specific gravity (U) [Rel density] 1.010 1.002-1.030 [facility] Urobilinogen Auto test strip Ql (U)Ordered By: Dr. Anderson on 09-01-2022 Urobilinogen Ql (U) Normal mg/dl Normal [facility] Absolute lymphocyte countOrd ered By: Dr. Anderson on 08-25-2022 Lymphocytes Auto (Unsp spec) [#/Vol] 2.57 10*3/uL 0.83-4.51 [facility] Basophil percentageOrdered B y: Dr. Anderson on 08-25-2022 Basophil percentage 87 mg/dL 74-106 [facility] Basophil percentage 143 mmol/L 136-145 [facility] Basophil percentage 4.4 mmol/L 3.5-5.1 [facility] Basophil percentage 109 mmol/L 98-107 [facility] Basophils (Bld) [#/Vol] 6.0 10*3/uL 4.4-11.0 [facility] Basophils (Bld) [#/Vol] 2.2 10*3/uL 2.0-7.7 [facility] Basophils/100 WBC (Bld) 36.4 % 47-70 [facility] Basophils/100 WBC (Bld) 7.6 % 0-5 [facility] Basophils/100 WBC (Bld) 0.8 % 0-1 [facility] Basophil percentageOrdered B y: Claudia Anderson on 08-25-2022 Chloride [Moles/Vol] 109 mmol/L 98-107 [facility] Eosinophils/100 WBC (Bld) 7.6 % 0-5 [facility] Glucose [Mass/Vol] 87 mg/dL 74-106 [facility] Neutrophils (Bld) [#/Vol] 2.2 10*3/uL 2.0-7.7 [facility] Neutrophils/100 WBC (Bld) 36.4 % 47-70 [facility] Potassium [Moles/Vol] 4.4 mmol/L 3.5-5.1 [facility] Sodium [Moles/Vol] 143 mmol/L 136-145 [facility] WBC (Bld) [#/Vol] 6.0 10*3/uL 4.4-11.0 [facility] Blood erythrocytes count (nu mber/volume)Ordered By: Dr. Anderson on 08-25-2022 RBC (Bld) [#/Vol] 3.56 10*6/uL 4.2-5.4 [facility] Blood hemoglobin measurement (mass/volume)Ordered By: Dr. Anderson on 08-25-2022 Hemoglobin (Bld) [Mass/Vol] 11.1 g/dL 12.0-15.0 [facility] Blood lymphocytes/100 leukoc ytesOrdered By: Dr. Anderson on 08-25-2022 Lymphocytes/100 WBC (Bld) 43.1 % 19-41 [facility] Blood monocytes/100 leukocyt esOrdered By: Dr. Anderson on 08-25-2022 Monocytes/100 WBC (Bld) 11.9 % 0-10 [facility] Blood platelet mean volumeOr dered By: Dr. Anderson on 08-25-2022 Platelet mean volume (Bld) [Entitic vol] 9.5 fL 6.2-12.0 [facility] Determination of erythrocyte mean corpuscular volume (MCV)Ordered By: Dr. Anderson on 08-25-2022 MCV (RBC) [Entitic vol] 101.7 fL 81-99 [facility] Hematocrit Auto (Bld) [Volum e fraction]Ordered By: Dr. Anderson on 08-25-2022 Hematocrit (Bld) [Volume fraction] 36.2 % 37-47 [facility] - Chemistry and C hemistry - challengeOrdered By: Claudia Anderson on 08-25-2022 CO2 [Moles/Vol] 29.0 mmol/L 21.0-32.0 [facility] Urea nitrogen/Creatinine [Mass ratio] 14.0 mg/mg 10-20 [facility] - Hematology and Cell countsOrdered By: Claudia Anderson on 08-25-2022 Erythrocyte distribution width (RBC) [Entitic vol] 50.3 fL 35.1-43.9 [facility] Erythrocyte distribution width (RBC) [Ratio] 13.4 % 11.6-14.6 [facility] Immature granulocytes/100 WBC (Bld) 0.200 % 0.0-0.9 [facility] Comment on above: IG% - Immature Granu locytes (promyelocytes, myelocytes and metamyelocytes) > 1% indicates that a LEFT SHIFT is Present. MCH (RBC) [Entitic mass] 31.2 pg 27.0-32.0 [facility] Nucleated RBC/100 [facility]/Vol]Or dered By: Dr. Anderson on 08-25-2022 MCHC (RBC) [Mass/Vol] 30.7 g/dL 32-36 [facility] No Panel InformationOrdered By: Claudia Anderson on 08-25-2022 Estimated GFR (MDRD) Amer 84 mL/min >60 [facility] Comment on above: GFR Calc Estimated GFR (MDRD) Non-Af Amer 70 mL/min >60 [facility] Comment on above: Non- GFR Calc No Panel InformationOrdered By: Dr. Anderson on 08-25-2022 31.2 pg 27.0-32.0 [facility] 13.4 % 11.6-14.6 [facility] 50.3 fl 35.1-43.9 [facility] 0.200 % 0.0-0.9 [facility] 0 % 0-5 [facility] 70 mL/min >60 [facility] 84 mL/min >60 [facility] 14.0 RATIO 10-20 [facility] 29.0 mmol/L 21.0-32.0 [facility] Platelets bldOrdered By: Dr. Anderson on 08-25-2022 Platelets (Bld) [#/Vol] 254 10*3/uL 150-450 [facility] Serum or plasma calcium moriah urement (mass/volume)Ordered By: Dr. Anderson on 08-25-2022 Calcium [Mass/Vol] 8.5 mg/dL 8.5-10.1 [facility] Serum or plasma creatinine m easurement (mass/volume)Ordered By: Dr. Anderson on 08-25-2022 Creatinine [Mass/Vol] 0.86 mg/dL 0.55-1.02 [facility] Comment on above: The validity of the calculated GFR & GFRAA in patients over 70 years has not been determined. Clinical correlation is essential. Serum or plasma urea nitroge n measurement (mass/volume)Ordered By: Dr. Anderson on 08-25-2022 Urea nitrogen [Mass/Vol] 12 mg/dL 7-18 [facility] Thin prep Papanicolaou smear with manual screeningOrdered By: Dr. Anderson on 08-25-2022 Thin prep Papanicolaou smear with manual screening 5 5-15 [facility] Absolute lymphocyte countOrd ered By: Dr. Anderson on 08-18-2022 Lymphocytes Auto (Unsp spec) [#/Vol] 2.79 10*3/uL 0.83-4.51 [facility] Basophil percentageOrdered B y: Dr. Anderson on 08-18-2022 Basophil percentage 91 mg/dL 74-106 [facility] Basophil percentage 140 mmol/L 136-145 [facility] Basophil percentage 4.0 mmol/L 3.5-5.1 [facility] Basophil percentage 106 mmol/L 98-107 [facility] Basophils (Bld) [#/Vol] 5.9 10*3/uL 4.4-11.0 [facility] Basophils (Bld) [#/Vol] 1.9 10*3/uL 2.0-7.7 [facility] Basophils/100 WBC (Bld) 32.8 % 47-70 [facility] Basophils/100 WBC (Bld) 6.8 % 0-5 [facility] Basophils/100 WBC (Bld) 1.0 % 0-1 [facility] Basophil percentageOrdered B y: Claudia Anderson on 08-18-2022 Chloride [Moles/Vol] 106 mmol/L 98-107 [facility] Eosinophils/100 WBC (Bld) 6.8 % 0-5 [facility] Glucose [Mass/Vol] 91 mg/dL 74-106 [facility] Neutrophils (Bld) [#/Vol] 1.9 10*3/uL 2.0-7.7 [facility] Neutrophils/100 WBC (Bld) 32.8 % 47-70 [facility] Potassium [Moles/Vol] 4.0 mmol/L 3.5-5.1 [facility] Sodium [Moles/Vol] 140 mmol/L 136-145 [facility] WBC (Bld) [#/Vol] 5.9 10*3/uL 4.4-11.0 [facility] Blood erythrocytes count (nu mber/volume)Ordered By: Dr. Anderson on 08-18-2022 RBC (Bld) [#/Vol] 3.57 10*6/uL 4.2-5.4 [facility] Blood hemoglobin measurement (mass/volume)Ordered By: Dr. Anderson on 08-18-2022 Hemoglobin (Bld) [Mass/Vol] 11.0 g/dL 12.0-15.0 [facility] Blood lymphocytes/100 leukoc ytesOrdered By: Dr. Anderson on 08-18-2022 Lymphocytes/100 WBC (Bld) 47.2 % 19-41 [facility] Blood monocytes/100 leukocyt esOrdered By: Dr. Anderson on 08-18-2022 Monocytes/100 WBC (Bld) 12.0 % 0-10 [facility] Blood platelet mean volumeOr dered By: Dr. Anderson on 08-18-2022 Platelet mean volume (Bld) [Entitic vol] 9.8 fL 6.2-12.0 [facility] Determination of erythrocyte mean corpuscular volume (MCV)Ordered By: Dr. Anderson on 08-18-2022 MCV (RBC) [Entitic vol] 101.7 fL 81-99 [facility] Hematocrit Auto (Bld) [Volum e fraction]Ordered By: Dr. Anderson on 08-18-2022 Hematocrit (Bld) [Volume fraction] 36.3 % 37-47 [facility] - Chemistry and C hemistry - challengeOrdered By: Claudia Anderson on 08-18-2022 CO2 [Moles/Vol] 30.0 mmol/L 21.0-32.0 [facility] Urea nitrogen/Creatinine [Mass ratio] 20.5 mg/mg 10-20 [facility] - Hematology and Cell countsOrdered By: Claudia Anderson on 08-18-2022 Erythrocyte distribution width (RBC) [Entitic vol] 48.7 fL 35.1-43.9 [facility] Erythrocyte distribution width (RBC) [Ratio] 13.0 % 11.6-14.6 [facility] Immature granulocytes/100 WBC (Bld) 0.200 % 0.0-0.9 [facility] Comment on above: IG% - Immature Granu locytes (promyelocytes, myelocytes and metamyelocytes) > 1% indicates that a LEFT SHIFT is Present. MCH (RBC) [Entitic mass] 30.8 pg 27.0-32.0 [facility] Nucleated RBC/100 WBC (Bld) [Ratio] 0 % 0-5 [facility] MCHC Auto (RBC) [Mass/Vol]Or dered By: Dr. Anderson on 08-18-2022 MCHC (RBC) [Mass/Vol] 30.3 g/dL 32-36 [facility] No Panel InformationOrdered By: Claudia Anderson on 08-18-2022 Estimated GFR (MDRD) Amer 87 mL/min >60 [facility] Comment on above: GFR Calc Estimated GFR (MDRD) Non-Af Amer 72 mL/min >60 [facility] Comment on above: Non- GFR Calc No Panel InformationOrdered By: Dr. Anderson on 08-18-2022 30.8 pg 27.0-32.0 [facility] 13.0 % 11.6-14.6 [facility] 48.7 fl 35.1-43.9 [facility] 0.200 % 0.0-0.9 [facility] 0 % 0-5 [facility] 72 mL/min >60 [facility] 87 mL/min >60 [facility] 20.5 RATIO 10-20 [facility] 30.0 mmol/L 21.0-32.0 [facility] Platelets bldOrdered By: Dr. Anderson on 08-18-2022 Platelets (Bld) [#/Vol] 249 10*3/uL 150-450 [facility] Serum or plasma calcium moriah urement (mass/volume)Ordered By: Dr. Anderson on 08-18-2022 Calcium [Mass/Vol] 8.5 mg/dL 8.5-10.1 [facility] Serum or plasma creatinine m easurement (mass/volume)Ordered By: Dr. Anderson on 08-18-2022 Creatinine [Mass/Vol] 0.83 mg/dL 0.55-1.02 [facility] Comment on above: The validity of the calculated GFR & GFRAA in patients over 70 years has not been determined. Clinical correlation is essential. Serum or plasma urea nitroge n measurement (mass/volume)Ordered By: Dr. Anderson on 08-18-2022 Urea nitrogen [Mass/Vol] 17 mg/dL 7-18 [facility] Thin prep Papanicolaou smear with manual screeningOrdered By: Dr. Anderson on 08-18-2022 Thin prep Papanicolaou smear with manual screening 4 5-15 [facility] Absolute lymphocyte countOrd ered By: Dr. Anderson on 08-11-2022 Lymphocytes Auto (Unsp spec) [#/Vol] 2.41 10*3/uL 0.83-4.51 [facility] Basophil percentageOrdered B y: Dr. Anderson on 08-11-2022 Basophil percentage 89 mg/dL 74-106 [facility] Basophil percentage 141 mmol/L 136-145 [facility] Basophil percentage 4.5 mmol/L 3.5-5.1 [facility] Basophil percentage 108 mmol/L 98-107 [facility] Basophils (Bld) [#/Vol] 5.7 10*3/uL 4.4-11.0 [facility] Basophils (Bld) [#/Vol] 2.3 10*3/uL 2.0-7.7 [facility] Basophils/100 WBC (Bld) 39.6 % 47-70 [facility] Basophils/100 WBC (Bld) 5.1 % 0-5 [facility] Basophils/100 WBC (Bld) 1.1 % 0-1 [facility] Basophil percentageOrdered B y: Claudia Anderson on 08-11-2022 Chloride [Moles/Vol] 108 mmol/L 98-107 [facility] Eosinophils/100 WBC (Bld) 5.1 % 0-5 [facility] Glucose [Mass/Vol] 89 mg/dL 74-106 [facility] Neutrophils (Bld) [#/Vol] 2.3 10*3/uL 2.0-7.7 [facility] Neutrophils/100 WBC (Bld) 39.6 % 47-70 [facility] Potassium [Moles/Vol] 4.5 mmol/L 3.5-5.1 [facility] Sodium [Moles/Vol] 141 mmol/L 136-145 [facility] WBC (Bld) [#/Vol] 5.7 10*3/uL 4.4-11.0 [facility] Blood erythrocytes count (nu mber/volume)Ordered By: Dr. Anderson on 08-11-2022 RBC (Bld) [#/Vol] 3.81 10*6/uL 4.2-5.4 [facility] Blood hemoglobin measurement (mass/volume)Ordered By: Dr. Anderson on 08-11-2022 Hemoglobin (Bld) [Mass/Vol] 12.0 g/dL 12.0-15.0 [facility] Blood lymphocytes/100 leukoc ytesOrdered By: Dr. Anderson on 08-11-2022 Lymphocytes/100 WBC (Bld) 42.5 % 19-41 [facility] Blood monocytes/100 leukocyt esOrdered By: Dr. Anderson on 08-11-2022 Monocytes/100 WBC (Bld) 11.5 % 0-10 [facility] Blood platelet mean volumeOr dered By: Dr. Anderson on 08-11-2022 Platelet mean volume (Bld) [Entitic vol] 9.7 fL 6.2-12.0 [facility] Determination of erythrocyte mean corpuscular volume (MCV)Ordered By: Dr. Anderson on 08-11-2022 MCV (RBC) [Entitic vol] 101.6 fL 81-99 [facility] Hematocrit Auto (Bld) [Volum e fraction]Ordered By: Dr. Anderson on 08-11-2022 Hematocrit (Bld) [Volume fraction] 38.7 % 37-47 [facility] - Chemistry and C hemistry - challengeOrdered By: Claudia Anderson on 08-11-2022 CO2 [Moles/Vol] 28.0 mmol/L 21.0-32.0 [facility] Urea nitrogen/Creatinine [Mass ratio] 17.7 mg/mg 10-20 [facility] - Hematology and Cell countsOrdered By: Claudia Anderson on 08-11-2022 Erythrocyte distribution width (RBC) [Entitic vol] 48.9 fL 35.1-43.9 [facility] Erythrocyte distribution width (RBC) [Ratio] 13.0 % 11.6-14.6 [facility] Immature granulocytes/100 WBC (Bld) 0.200 % 0.0-0.9 [facility] Comment on above: IG% - Immature Granu locytes (promyelocytes, myelocytes and metamyelocytes) > 1% indicates that a LEFT SHIFT is Present. MCH (RBC) [Entitic mass] 31.5 pg 27.0-32.0 [facility] Nucleated RBC/100 WBC (Bld) [Ratio] 0 % 0-5 [facility] MCHC Auto (RBC) [Mass/Vol]Or dered By: Dr. Anderson on 08-11-2022 MCHC (RBC) [Mass/Vol] 31.0 g/dL 32-36 [facility] No Panel InformationOrdered By: Claudia Anderson on 08-11-2022 Estimated GFR (MDRD) Amer 92 mL/min >60 [facility] Comment on above: GFR Calc Estimated GFR (MDRD) Non-Af Amer 76 mL/min >60 [facility] Comment on above: Non- GFR Calc No Panel InformationOrdered By: Dr. Anderson on 08-11-2022 31.5 pg 27.0-32.0 [facility] 13.0 % 11.6-14.6 [facility] 48.9 fl 35.1-43.9 [facility] 0.200 % 0.0-0.9 [facility] 0 % 0-5 [facility] 76 mL/min >60 [facility] 92 mL/min >60 [facility] 17.7 RATIO 10-20 [facility] 28.0 mmol/L 21.0-32.0 [facility] Platelets bldOrdered By: Dr. Anderson on 08-11-2022 Platelets (Bld) [#/Vol] 253 10*3/uL 150-450 [facility] Serum or plasma calcium moriah urement (mass/volume)Ordered By: Dr. Adnerson on 08-11-2022 Calcium [Mass/Vol] 8.7 mg/dL 8.5-10.1 [facility] Serum or plasma creatinine m easurement (mass/volume)Ordered By: Dr. Anderson on 08-11-2022 Creatinine [Mass/Vol] 0.79 mg/dL 0.55-1.02 [facility] Comment on above: The validity of the calculated GFR & GFRAA in patients over 70 years has not been determined. Clinical correlation is essential. Serum or plasma urea nitroge n measurement (mass/volume)Ordered By: Dr. Anderson on 08-11-2022 Urea nitrogen [Mass/Vol] 14 mg/dL 7-18 [facility] Thin prep Papanicolaou smear with manual screeningOrdered By: Dr. Anderson on 08-11-2022 Thin prep Papanicolaou smear with manual screening 5 5-15 [facility] Basophil percentageOrdered B y: Medardo Mayo on 08-10-2022 Ammonia (P) [Moles/Vol] 56.0 umol/L [facility] Basophil percentage 6.0 g/dL 6.4-8.2 [facility] Basophil percentage 0.20 mg/dL 0.20-1.00 [facility] Basophil percentage 56.0 umol/L [facility] Bilirubin [Mass/Vol] 0.20 mg/dL 0.20-1.00 [facility] Comment on above: For patients on eltr ombopag therapy, use of Dimension [place] TBIL is not recommended. Protein [Mass/Vol] 6.0 g/dL 6.4-8.2 [facility] Direct bilirubinOrdered By: Medardo Mayo on 08-10-2022 Bilirubin.direct [Mass/Vol] 0.07 mg/dL 0.00-0.30 [facility] - Chemistry and C hemistry - challengeOrdered By: Medardo Mayo on 08-10-2022 ALP [Catalytic activity/Vol] 76 U/L 45-117 [facility] ALT [Catalytic activity/Vol] 11 U/L 13-56 [facility] Globulin (S) [Mass/Vol] 3.3 g/dL 2.2-4.2 [facility] No Panel InformationOrdered By: Medardo Mayo on 08-10-2022 Valproic Acid (Depakene) Level 29 ug/mL 50-100 [facility] Whole Blood Vitamin B1 Level 94.0 nmol/L 66.5-200.0 [facility] Comment on above: Performed at: [address] [id number] Director: Marino Mckeon MD, Phone: [phone] 3.3 g/dL 2.2-4.2 [facility] 76 U/L 45-117 [facility] 11 U/L 13-56 [facility] 29 ug/mL 50-100 [facility] 94.0 nmol/L 66.5-200.0 [facility] Serum or plasma albumin moriah urement (mass/volume)Ordered By: Medardo Mayo on 08-10-2022 Albumin [Mass/Vol] 2.7 g/dL 3.2-5.0 [facility] Serum or plasma folate measu rement (mass/volume)Ordered By: Medardo Mayo on 08-10-2022 Folate [Mass/Vol] 2.60 ng/mL 3.1-55.4 [facility] Serum or plasma phenobarbita l detectionOrdered By: Medardo Mayo on 08-10-2022 PHENobarbital Ql 19 ug/mL 15-40 [facility] Comment on above: Detection Limit = 3 Serum or plasma primidone me asurement (mass/volume)Ordered By: Medardo Mayo on 08-10-2022 Primidone [Mass/Vol] 7.1 ug/mL 5.0-12.0 [facility] Comment on above: Detection Limit = 0. 3 <0.3 indicates None Detected Thin prep Papanicolaou smear with manual screeningOrdered By: Medardo Mayo on 08-10-2022 Thin prep Papanicolaou smear with manual screening 13 U/L 15-37 [facility] Absolute lymphocyte countOrd ered By: Dr. Anderson on 08-04-2022 Lymphocytes Auto (Unsp spec) [#/Vol] 2.98 10*3/uL 0.83-4.51 [facility] Basophil percentageOrdered B y: Dr. Anderson on 08-04-2022 Basophil percentage 78 mg/dL 74-106 [facility] Basophil percentage 140 mmol/L 136-145 [facility] Basophil percentage 4.7 mmol/L 3.5-5.1 [facility] Basophil percentage 107 mmol/L 98-107 [facility] Basophils (Bld) [#/Vol] 7.0 10*3/uL 4.4-11.0 [facility] Basophils (Bld) [#/Vol] 2.7 10*3/uL 2.0-7.7 [facility] Basophils/100 WBC (Bld) 37.7 % 47-70 [facility] Basophils/100 WBC (Bld) 7.3 % 0-5 [facility] Basophils/100 WBC (Bld) 0.9 % 0-1 [facility] Basophil percentageOrdered B y: Claudia Anderson on 08-04-2022 Chloride [Moles/Vol] 107 mmol/L 98-107 [facility] Eosinophils/100 WBC (Bld) 7.3 % 0-5 [facility] Glucose [Mass/Vol] 78 mg/dL 74-106 [facility] Neutrophils (Bld) [#/Vol] 2.7 10*3/uL 2.0-7.7 [facility] Neutrophils/100 WBC (Bld) 37.7 % 47-70 [facility] Potassium [Moles/Vol] 4.7 mmol/L 3.5-5.1 [facility] Sodium [Moles/Vol] 140 mmol/L 136-145 [facility] WBC (Bld) [#/Vol] 7.0 10*3/uL 4.4-11.0 [facility] Blood erythrocytes count (nu mber/volume)Ordered By: Dr. Anderson on 08-04-2022 RBC (Bld) [#/Vol] 3.90 10*6/uL 4.2-5.4 [facility] Blood hemoglobin measurement (mass/volume)Ordered By: Dr. Anderson on 08-04-2022 Hemoglobin (Bld) [Mass/Vol] 12.3 g/dL 12.0-15.0 [facility] Blood lymphocytes/100 leukoc ytesOrdered By: Dr. Anderson on 08-04-2022 Lymphocytes/100 WBC (Bld) 42.5 % 19-41 [facility] Blood monocytes/100 leukocyt esOrdered By: Dr. Anderson on 08-04-2022 Monocytes/100 WBC (Bld) 11.3 % 0-10 [facility] Blood platelet mean volumeOr dered By: Dr. Anderson on 08-04-2022 Platelet mean volume (Bld) [Entitic vol] 10.0 fL 6.2-12.0 [facility] Determination of erythrocyte mean corpuscular volume (MCV)Ordered By: Dr. Anderson on 08-04-2022 MCV (RBC) [Entitic vol] 100.8 fL 81-99 [facility] Hematocrit Auto (Bld) [Volum e fraction]Ordered By: Dr. Anderson on 08-04-2022 Hematocrit (Bld) [Volume fraction] 39.3 % 37-47 [facility] - Chemistry and C hemistry - challengeOrdered By: Claudia Anderson on 08-04-2022 CO2 [Moles/Vol] 29.0 mmol/L 21.0-32.0 [facility] Urea nitrogen/Creatinine [Mass ratio] 22.9 mg/mg 10-20 [facility] - Hematology and Cell countsOrdered By: Claudia Anderson on 08-04-2022 Erythrocyte distribution width (RBC) [Entitic vol] 48.8 fL 35.1-43.9 [facility] Erythrocyte distribution width (RBC) [Ratio] 13.2 % 11.6-14.6 [facility] Immature granulocytes/100 WBC (Bld) 0.300 % 0.0-0.9 [facility] Comment on above: IG% - Immature Granu locytes (promyelocytes, myelocytes and metamyelocytes) > 1% indicates that a LEFT SHIFT is Present. MCH (RBC) [Entitic mass] 31.5 pg 27.0-32.0 [facility] Nucleated RBC/100 WBC (Bld) [Ratio] 0 % 0-5 [facility] MCHC Auto (RBC) [Mass/Vol]Or dered By: Dr. Anderson on 08-04-2022 MCHC (RBC) [Mass/Vol] 31.3 g/dL 32-36 [facility] No Panel InformationOrdered By: Claudia Anderson on 08-04-2022 Estimated GFR (MDRD) Amer 107 mL/min >60 [facility] Comment on above: GFR Calc Estimated GFR (MDRD) Non-Af Amer 88 mL/min >60 [facility] Comment on above: Non- GFR Calc No Panel InformationOrdered By: Dr. Anderson on 08-04-2022 31.5 pg 27.0-32.0 [facility] 13.2 % 11.6-14.6 [facility] 48.8 fl 35.1-43.9 [facility] 0.300 % 0.0-0.9 [facility] 0 % 0-5 [facility] 88 mL/min >60 [facility] 107 mL/min >60 [facility] 22.9 RATIO 10-20 [facility] 29.0 mmol/L 21.0-32.0 [facility] Platelets bldOrdered By: Dr. Anderson on 08-04-2022 Platelets (Bld) [#/Vol] 280 10*3/uL 150-450 [facility] Serum or plasma calcium moriah urement (mass/volume)Ordered By: Dr. Anderson on 08-04-2022 Calcium [Mass/Vol] 8.5 mg/dL 8.5-10.1 [facility] Serum or plasma creatinine m easurement (mass/volume)Ordered By: Dr. Anderson on 08-04-2022 Creatinine [Mass/Vol] 0.70 mg/dL 0.55-1.02 [facility] Comment on above: The validity of the calculated GFR & GFRAA in patients over 70 years has not been determined. Clinical correlation is essential. Serum or plasma urea nitroge n measurement (mass/volume)Ordered By: Dr. Anderson on 08-04-2022 Urea nitrogen [Mass/Vol] 16 mg/dL 7-18 [facility] Thin prep Papanicolaou smear with manual screeningOrdered By: Dr. Anderson on 08-04-2022 Thin prep Papanicolaou smear with manual screening 4 5-15 [facility] Absolute lymphocyte countOrd ered By: Dr. Anderson on 07-28-2022 Lymphocytes Auto (Unsp spec) [#/Vol] 2.06 10*3/uL 0.83-4.51 [facility] Basophil percentageOrdered B y: Dr. Anderson on 07-28-2022 Basophil percentage 78 mg/dL 74-106 [facility] Basophil percentage 142 mmol/L 136-145 [facility] Basophil percentage 4.2 mmol/L 3.5-5.1 [facility] Basophil percentage 106 mmol/L 98-107 [facility] Basophils (Bld) [#/Vol] 8.0 10*3/uL 4.4-11.0 [facility] Basophils (Bld) [#/Vol] 4.7 10*3/uL 2.0-7.7 [facility] Basophils/100 WBC (Bld) 58.9 % 47-70 [facility] Basophils/100 WBC (Bld) 5.0 % 0-5 [facility] Basophils/100 WBC (Bld) 0.5 % 0-1 [facility] Basophil percentageOrdered B y: Claudia Anderson on 07-28-2022 Chloride [Moles/Vol] 106 mmol/L 98-107 [facility] Eosinophils/100 WBC (Bld) 5.0 % 0-5 [facility] Glucose [Mass/Vol] 78 mg/dL 74-106 [facility] Neutrophils (Bld) [#/Vol] 4.7 10*3/uL 2.0-7.7 [facility] Neutrophils/100 WBC (Bld) 58.9 % 47-70 [facility] Potassium [Moles/Vol] 4.2 mmol/L 3.5-5.1 [facility] Sodium [Moles/Vol] 142 mmol/L 136-145 [facility] WBC (Bld) [#/Vol] 8.0 10*3/uL 4.4-11.0 [facility] Blood erythrocytes count (nu mber/volume)Ordered By: Dr. Anderson on 07-28-2022 RBC (Bld) [#/Vol] 3.84 10*6/uL 4.2-5.4 [facility] Blood hemoglobin measurement (mass/volume)Ordered By: Dr. Anderson on 07-28-2022 Hemoglobin (Bld) [Mass/Vol] 11.9 g/dL 12.0-15.0 [facility] Blood lymphocytes/100 leukoc ytesOrdered By: Dr. Anderson on 07-28-2022 Lymphocytes/100 WBC (Bld) 25.8 % 19-41 [facility] Blood monocytes/100 leukocyt esOrdered By: Dr. Anderson on 07-28-2022 Monocytes/100 WBC (Bld) 9.5 % 0-10 [facility] Blood platelet mean volumeOr dered By: Dr. Anderson on 07-28-2022 Platelet mean volume (Bld) [Entitic vol] 9.8 fL 6.2-12.0 [facility] Determination of erythrocyte mean corpuscular volume (MCV)Ordered By: Dr. Anderson on 07-28-2022 MCV (RBC) [Entitic vol] 102.6 fL 81-99 [facility] Hematocrit Auto (Bld) [Volum e fraction]Ordered By: Dr. Anderson on 07-28-2022 Hematocrit (Bld) [Volume fraction] 39.4 % 37-47 [facility] - Chemistry and C hemistry - challengeOrdered By: Claudia Anderson on 07-28-2022 CO2 [Moles/Vol] 31.0 mmol/L 21.0-32.0 [facility] Urea nitrogen/Creatinine [Mass ratio] 22.5 mg/mg 10-20 [facility] - Hematology and Cell countsOrdered By: Claudia Anderson on 07-28-2022 Erythrocyte distribution width (RBC) [Entitic vol] 48.7 fL 35.1-43.9 [facility] Erythrocyte distribution width (RBC) [Ratio] 13.0 % 11.6-14.6 [facility] Immature granulocytes/100 WBC (Bld) 0.300 % 0.0-0.9 [facility] Comment on above: IG% - Immature Granu locytes (promyelocytes, myelocytes and metamyelocytes) > 1% indicates that a LEFT SHIFT is Present. MCH (RBC) [Entitic mass] 31.0 pg 27.0-32.0 [facility] Nucleated RBC/100 WBC (Bld) [Ratio] 0 % 0-5 [facility] Auto (RBC) [Mass/Vol]Or dered By: Dr. Anderson on 07-28-2022 MCHC (RBC) [Mass/Vol] 30.2 g/dL 32-36 [facility] No Panel InformationOrdered By: Claudia Anderson on 07-28-2022 Estimated GFR (MDRD) Amer 85 mL/min >60 [facility] Comment on above: GFR Calc Estimated GFR (MDRD) Non-Af Amer 71 mL/min >60 [facility] Comment on above: Non- GFR Calc No Panel InformationOrdered By: Dr. Anderson on 07-28-2022 31.0 pg 27.0-32.0 [facility] 13.0 % 11.6-14.6 [facility] 48.7 fl 35.1-43.9 [facility] 0.300 % 0.0-0.9 [facility] 0 % 0-5 [facility] 71 mL/min >60 [facility] 85 mL/min >60 [facility] 22.5 RATIO 10-20 [facility] 31.0 mmol/L 21.0-32.0 [facility] Platelets bldOrdered By: Dr. Anderson on 07-28-2022 Platelets (Bld) [#/Vol] 246 10*3/uL 150-450 [facility] Serum or plasma calcium moriah urement (mass/volume)Ordered By: Dr. Anderson on 07-28-2022 Calcium [Mass/Vol] 8.7 mg/dL 8.5-10.1 [facility] Serum or plasma creatinine m easurement (mass/volume)Ordered By: Dr. Anderson on 07-28-2022 Creatinine [Mass/Vol] 0.85 mg/dL 0.55-1.02 [facility] Comment on above: The validity of the calculated GFR & GFRAA in patients over 70 years has not been determined. Clinical correlation is essential. Serum or plasma urea nitroge n measurement (mass/volume)Ordered By: Dr. Anderson on 07-28-2022 Urea nitrogen [Mass/Vol] 19 mg/dL 7-18 [facility] Thin prep Papanicolaou smear with manual screeningOrdered By: Dr. Anderson on 07-28-2022 Thin prep Papanicolaou smear with manual screening 5 5-15 [facility] Absolute lymphocyte countOrd ered By: Dr. Anderson on 07-21-2022 Lymphocytes Auto (Unsp spec) [#/Vol] 2.90 10*3/uL 0.83-4.51 [facility] Basophil percentageOrdered B y: Dr. Anderson on 07-21-2022 Basophil percentage 90 mg/dL 74-106 [facility] Basophil percentage 140 mmol/L 136-145 [facility] Basophil percentage 4.4 mmol/L 3.5-5.1 [facility] Basophil percentage 109 mmol/L 98-107 [facility] Basophils (Bld) [#/Vol] 8.0 10*3/uL 4.4-11.0 [facility] Basophils (Bld) [#/Vol] 3.5 10*3/uL 2.0-7.7 [facility] Basophils/100 WBC (Bld) 0.5 % 0-1 [facility] Basophils/100 WBC (Bld) 44.4 % 47-70 [facility] Basophils/100 WBC (Bld) 6.7 % 0-5 [facility] Chloride [Moles/Vol] 109 mmol/L 98-107 [facility] Eosinophils/100 WBC (Bld) 6.7 % 0-5 [facility] Glucose [Mass/Vol] 90 mg/dL 74-106 [facility] Neutrophils (Bld) [#/Vol] 3.5 10*3/uL 2.0-7.7 [facility] Neutrophils/100 WBC (Bld) 44.4 % 47-70 [facility] Potassium [Moles/Vol] 4.4 mmol/L 3.5-5.1 [facility] Sodium [Moles/Vol] 140 mmol/L 136-145 [facility] WBC (Bld) [#/Vol] 8.0 10*3/uL 4.4-11.0 [facility] Blood erythrocytes count (nu mber/volume)Ordered By: Dr. Anderson on 07-21-2022 RBC (Bld) [#/Vol] 3.77 10*6/uL 4.2-5.4 [facility] Blood hemoglobin measurement (mass/volume)Ordered By: Dr. Anderson on 07-21-2022 Hemoglobin (Bld) [Mass/Vol] 11.7 g/dL 12.0-15.0 [facility] Blood lymphocytes/100 leukoc ytesOrdered By: Dr. Anderson on 07-21-2022 Lymphocytes/100 WBC (Bld) 36.5 % 19-41 [facility] Blood monocytes/100 leukocyt esOrdered By: Dr. Anderson on 07-21-2022 Monocytes/100 WBC (Bld) 11.6 % 0-10 [facility] Blood platelet mean volumeOr dered By: Dr. Anderson on 07-21-2022 Platelet mean volume (Bld) [Entitic vol] 9.9 fL 6.2-12.0 [facility] Determination of erythrocyte mean corpuscular volume (MCV)Ordered By: Dr. Anderson on 07-21-2022 MCV (RBC) [Entitic vol] 102.4 fL 81-99 [facility] Hematocrit Auto (Bld) [Volum e fraction]Ordered By: Dr. Anderson on 07-21-2022 Hematocrit (Bld) [Volume fraction] 38.6 % 37-47 [facility] - Chemistry and C hemistry - challengeOrdered By: Dr. Anderson on 07-21-2022 CO2 [Moles/Vol] 29.0 mmol/L 21.0-32.0 [facility] Urea nitrogen/Creatinine [Mass ratio] 27.6 mg/mg 10-20 [facility] - Hematology and Cell countsOrdered By: Dr. Anderson on 07-21-2022 Erythrocyte distribution width (RBC) [Entitic vol] 49.7 fL 35.1-43.9 [facility] Erythrocyte distribution width (RBC) [Ratio] 13.1 % 11.6-14.6 [facility] Immature granulocytes/100 WBC (Bld) 0.300 % 0.0-0.9 [facility] Comment on above: IG% - Immature Granu locytes (promyelocytes, myelocytes and metamyelocytes) > 1% indicates that a LEFT SHIFT is Present. MCH (RBC) [Entitic mass] 31.0 pg 27.0-32.0 [facility] Nucleated RBC/100 WBC (Bld) [Ratio] 0 % 0-5 [facility] MCHC Auto (RBC) [Mass/Vol]Or dered By: Dr. Anderson on 07-21-2022 MCHC (RBC) [Mass/Vol] 30.3 g/dL 32-36 [facility] No Panel InformationOrdered By: Dr. Anderson on 07-21-2022 Estimated GFR (MDRD) Amer 97 mL/min >60 [facility] Comment on above: GFR Calc Estimated GFR (MDRD) Non-Af Amer 80 mL/min >60 [facility] Comment on above: Non- GFR Calc 31.0 pg 27.0-32.0 [facility] 13.1 % 11.6-14.6 [facility] 49.7 fl 35.1-43.9 [facility] 0.300 % 0.0-0.9 [facility] 0 % 0-5 [facility] 80 mL/min >60 [facility] 97 mL/min >60 [facility] 27.6 RATIO 10-20 [facility] 29.0 mmol/L 21.0-32.0 [facility] Platelets bldOrdered By: Dr. Anderson on 07-21-2022 Platelets (Bld) [#/Vol] 204 10*3/uL 150-450 [facility] Serum or plasma calcium moriah urement (mass/volume)Ordered By: Dr. Anderson on 07-21-2022 Calcium [Mass/Vol] 8.4 mg/dL 8.5-10.1 [facility] Serum or plasma creatinine m easurement (mass/volume)Ordered By: Dr. Anderson on 07-21-2022 Creatinine [Mass/Vol] 0.76 mg/dL 0.55-1.02 [facility] Comment on above: The validity of the calculated GFR & GFRAA in patients over 70 years has not been determined. Clinical correlation is essential. Serum or plasma urea nitroge n measurement (mass/volume)Ordered By: Dr. Anderson on 07-21-2022 Urea nitrogen [Mass/Vol] 21 mg/dL 7-18 [facility] Thin prep Papanicolaou smear with manual screeningOrdered By: Dr. Anderson on 07-21-2022 Thin prep Papanicolaou smear with manual screening 2 5-15 [facility] Absolute lymphocyte countOrd ered By: Dr. Anderson on 07-14-2022 Lymphocytes Auto (Unsp spec) [#/Vol] 3.15 10*3/uL 0.83-4.51 [facility] Basophil percentageOrdered B y: Dr. Anderson on 07-14-2022 Basophil percentage 83 mg/dL 74-106 [facility] Basophil percentage 137 mmol/L 136-145 [facility] Basophil percentage 4.5 mmol/L 3.5-5.1 [facility] Basophil percentage 107 mmol/L 98-107 [facility] Basophils (Bld) [#/Vol] 7.2 10*3/uL 4.4-11.0 [facility] Basophils (Bld) [#/Vol] 2.8 10*3/uL 2.0-7.7 [facility] Basophils/100 WBC (Bld) 1.0 % 0-1 [facility] Basophils/100 WBC (Bld) 38.6 % 47-70 [facility] Basophils/100 WBC (Bld) 6.4 % 0-5 [facility] Chloride [Moles/Vol] 107 mmol/L 98-107 [facility] Eosinophils/100 WBC (Bld) 6.4 % 0-5 [facility] Glucose [Mass/Vol] 83 mg/dL 74-106 [facility] Neutrophils (Bld) [#/Vol] 2.8 10*3/uL 2.0-7.7 [facility] Neutrophils/100 WBC (Bld) 38.6 % 47-70 [facility] Potassium [Moles/Vol] 4.5 mmol/L 3.5-5.1 [facility] Sodium [Moles/Vol] 137 mmol/L 136-145 [facility] WBC (Bld) [#/Vol] 7.2 10*3/uL 4.4-11.0 [facility] Blood erythrocytes count (nu mber/volume)Ordered By: Dr. Anderson on 07-14-2022 RBC (Bld) [#/Vol] 3.75 10*6/uL 4.2-5.4 [facility] Blood hemoglobin measurement (mass/volume)Ordered By: Dr. Anderson on 07-14-2022 Hemoglobin (Bld) [Mass/Vol] 11.8 g/dL 12.0-15.0 [facility] Blood lymphocytes/100 leukoc ytesOrdered By: Dr. Anderson on 07-14-2022 Lymphocytes/100 WBC (Bld) 43.8 % 19-41 [facility] Blood monocytes/100 leukocyt esOrdered By: Dr. Anderson on 07-14-2022 Monocytes/100 WBC (Bld) 9.9 % 0-10 [facility] Blood platelet mean volumeOr dered By: Dr. Anderson on 07-14-2022 Platelet mean volume (Bld) [Entitic vol] 9.6 fL 6.2-12.0 [facility] Determination of erythrocyte mean corpuscular volume (MCV)Ordered By: Dr. Anderson on 07-14-2022 MCV (RBC) [Entitic vol] 101.3 fL 81-99 [facility] Hematocrit Auto (Bld) [Volum e fraction]Ordered By: Dr. Anderson on 07-14-2022 Hematocrit (Bld) [Volume fraction] 38.0 % 37-47 [facility] - Chemistry and C hemistry - challengeOrdered By: Dr. Anderson on 07-14-2022 CO2 [Moles/Vol] 31.0 mmol/L 21.0-32.0 [facility] Urea nitrogen/Creatinine [Mass ratio] 27.0 mg/mg 10-20 [facility] - Hematology and Cell countsOrdered By: Dr. Anderson on 07-14-2022 Erythrocyte distribution width (RBC) [Entitic vol] 49.7 fL 35.1-43.9 [facility] Erythrocyte distribution width (RBC) [Ratio] 13.2 % 11.6-14.6 [facility] Immature granulocytes/100 WBC (Bld) 0.300 % 0.0-0.9 [facility] Comment on above: IG% - Immature Granu locytes (promyelocytes, myelocytes and metamyelocytes) > 1% indicates that a LEFT SHIFT is Present. MCH (RBC) [Entitic mass] 31.5 pg 27.0-32.0 [facility] Nucleated RBC/100 WBC (Bld) [Ratio] 0 % 0-5 [facility] MCHC Auto (RBC) [Mass/Vol]Or dered By: Dr. Anderson on 07-14-2022 MCHC (RBC) [Mass/Vol] 31.1 g/dL 32-36 [facility] No Panel InformationOrdered By: Dr. Anderson on 07-14-2022 Estimated GFR (MDRD) Amer 99 mL/min >60 [facility] Comment on above: GFR Calc Estimated GFR (MDRD) Non-Af Amer 82 mL/min >60 [facility] Comment on above: Non- GFR Calc 31.5 pg 27.0-32.0 [facility] 13.2 % 11.6-14.6 [facility] 49.7 fl 35.1-43.9 [facility] 0.300 % 0.0-0.9 [facility] 0 % 0-5 [facility] 82 mL/min >60 [facility] 99 mL/min >60 [facility] 27.0 RATIO 10-20 [facility] 31.0 mmol/L 21.0-32.0 [facility] Platelets bldOrdered By: Dr. Anderson on 07-14-2022 Platelets (Bld) [#/Vol] 252 10*3/uL 150-450 [facility] Serum or plasma calcium moriah urement (mass/volume)Ordered By: Dr. Anderson on 07-14-2022 Calcium [Mass/Vol] 8.6 mg/dL 8.5-10.1 [facility] Serum or plasma creatinine m easurement (mass/volume)Ordered By: Dr. Anderson on 07-14-2022 Creatinine [Mass/Vol] 0.74 mg/dL 0.55-1.02 [facility] Comment on above: The validity of the calculated GFR & GFRAA in patients over 70 years has not been determined. Clinical correlation is essential. Serum or plasma urea nitroge n measurement (mass/volume)Ordered By: Dr. Anderson on 07-14-2022 Urea nitrogen [Mass/Vol] 20 mg/dL 7-18 [facility] Thin prep Papanicolaou smear with manual screeningOrdered By: Dr. Anderson on 07-14-2022 Thin prep Papanicolaou smear with manual screening -1 5-15 [facility] Absolute lymphocyte countOrd ered By: Dr. Anderson on 07-07-2022 Lymphocytes Auto (Unsp spec) [#/Vol] 3.11 10*3/uL 0.83-4.51 [facility] Basophil percentageOrdered B y: Dr. Anderson on 07-07-2022 Basophil percentage 86 mg/dL 74-106 [facility] Basophil percentage 136 mmol/L 136-145 [facility] Basophil percentage 4.5 mmol/L 3.5-5.1 [facility] Basophil percentage 104 mmol/L 98-107 [facility] Basophils (Bld) [#/Vol] 8.1 10*3/uL 4.4-11.0 [facility] Basophils (Bld) [#/Vol] 3.5 10*3/uL 2.0-7.7 [facility] Basophils/100 WBC (Bld) 1.0 % 0-1 [facility] Basophils/100 WBC (Bld) 43.8 % 47-70 [facility] Basophils/100 WBC (Bld) 6.0 % 0-5 [facility] Chloride [Moles/Vol] 104 mmol/L 98-107 [facility] Eosinophils/100 WBC (Bld) 6.0 % 0-5 [facility] Glucose [Mass/Vol] 86 mg/dL 74-106 [facility] Neutrophils (Bld) [#/Vol] 3.5 10*3/uL 2.0-7.7 [facility] Neutrophils/100 WBC (Bld) 43.8 % 47-70 [facility] Potassium [Moles/Vol] 4.5 mmol/L 3.5-5.1 [facility] Sodium [Moles/Vol] 136 mmol/L 136-145 [facility] WBC (Bld) [#/Vol] 8.1 10*3/uL 4.4-11.0 [facility] Blood erythrocytes count (nu mber/volume)Ordered By: Dr. Anderson on 07-07-2022 RBC (Bld) [#/Vol] 3.77 10*6/uL 4.2-5.4 [facility] Blood hemoglobin measurement (mass/volume)Ordered By: Dr. Anderson on 07-07-2022 Hemoglobin (Bld) [Mass/Vol] 12.0 g/dL 12.0-15.0 [facility] Blood lymphocytes/100 leukoc ytesOrdered By: Dr. Anderson on 07-07-2022 Lymphocytes/100 WBC (Bld) 38.6 % 19-41 [facility] Blood monocytes/100 leukocyt esOrdered By: Dr. Anderson on 07-07-2022 Monocytes/100 WBC (Bld) 10.2 % 0-10 [facility] Blood platelet mean volumeOr dered By: Dr. Anderson on 07-07-2022 Platelet mean volume (Bld) [Entitic vol] 9.8 fL 6.2-12.0 [facility] Determination of erythrocyte mean corpuscular volume (MCV)Ordered By: Dr. Anderson on 07-07-2022 MCV (RBC) [Entitic vol] 101.9 fL 81-99 [facility] Hematocrit Auto (Bld) [Volum e fraction]Ordered By: Dr. Anderson on 07-07-2022 Hematocrit (Bld) [Volume fraction] 38.4 % 37-47 [facility] - Chemistry and C hemistry - challengeOrdered By: Dr. Anderson on 07-07-2022 CO2 [Moles/Vol] 29.0 mmol/L 21.0-32.0 [facility] Urea nitrogen/Creatinine [Mass ratio] 28.3 mg/mg 10-20 [facility] - Hematology and Cell countsOrdered By: Dr. Anderson on 07-07-2022 Erythrocyte distribution width (RBC) [Entitic vol] 49.1 fL 35.1-43.9 [facility] Erythrocyte distribution width (RBC) [Ratio] 13.2 % 11.6-14.6 [facility] Immature granulocytes/100 WBC (Bld) 0.400 % 0.0-0.9 [facility] Comment on above: IG% - Immature Granu locytes (promyelocytes, myelocytes and metamyelocytes) > 1% indicates that a LEFT SHIFT is Present. MCH (RBC) [Entitic mass] 31.8 pg 27.0-32.0 [facility] Nucleated RBC/100 WBC (Bld) [Ratio] 0 % 0-5 [facility] MCHC Auto (RBC) [Mass/Vol]Or dered By: Dr. Anderson on 07-07-2022 MCHC (RBC) [Mass/Vol] 31.3 g/dL 32-36 [facility] No Panel InformationOrdered By: Dr. Anderson on 07-07-2022 Estimated GFR (MDRD) Amer 99 mL/min >60 [facility] Comment on above: GFR Calc Estimated GFR (MDRD) Non-Af Amer 82 mL/min >60 [facility] Comment on above: Non- GFR Calc 31.8 pg 27.0-32.0 [facility] 13.2 % 11.6-14.6 [facility] 49.1 fl 35.1-43.9 [facility] 0.400 % 0.0-0.9 [facility] 0 % 0-5 [facility] 82 mL/min >60 [facility] 99 mL/min >60 [facility] 28.3 RATIO 10-20 [facility] 29.0 mmol/L 21.0-32.0 [facility] Platelets bldOrdered By: Dr. Anderson on 07-07-2022 Platelets (Bld) [#/Vol] 305 10*3/uL 150-450 [facility] Serum or plasma calcium moriah urement (mass/volume)Ordered By: Dr. Anderson on 07-07-2022 Calcium [Mass/Vol] 8.5 mg/dL 8.5-10.1 [facility] Serum or plasma creatinine m easurement (mass/volume)Ordered By: Dr. Anderson on 07-07-2022 Creatinine [Mass/Vol] 0.74 mg/dL 0.55-1.02 [facility] Comment on above: The validity of the calculated GFR & GFRAA in patients over 70 years has not been determined. Clinical correlation is essential. Serum or plasma urea nitroge n measurement (mass/volume)Ordered By: Dr. Anderson on 07-07-2022 Urea nitrogen [Mass/Vol] 21 mg/dL 7-18 [facility] Thin prep Papanicolaou smear with manual screeningOrdered By: Dr. Anderson on 07-07-2022 Thin prep Papanicolaou smear with manual screening 3 5-15 [facility] Absolute lymphocyte countOrd ered By: Dr. Anderson on 06-30-2022 Lymphocytes Auto (Unsp spec) [#/Vol] 2.76 10*3/uL 0.83-4.51 [facility] Basophil percentageOrdered B y: Dr. Anderson on 06-30-2022 Basophil percentage 88 mg/dL 74-106 [facility] Basophil percentage 138 mmol/L 136-145 [facility] Basophil percentage 4.5 mmol/L 3.5-5.1 [facility] Basophil percentage 106 mmol/L 98-107 [facility] Basophils (Bld) [#/Vol] 6.6 10*3/uL 4.4-11.0 [facility] Basophils (Bld) [#/Vol] 2.4 10*3/uL 2.0-7.7 [facility] Basophils/100 WBC (Bld) 0.8 % 0-1 [facility] Basophils/100 WBC (Bld) 35.5 % 47-70 [facility] Basophils/100 WBC (Bld) 10.8 % 0-5 [facility] Chloride [Moles/Vol] 106 mmol/L 98-107 [facility] Eosinophils/100 WBC (Bld) 10.8 % 0-5 [facility] Glucose [Mass/Vol] 88 mg/dL 74-106 [facility] Neutrophils (Bld) [#/Vol] 2.4 10*3/uL 2.0-7.7 [facility] Neutrophils/100 WBC (Bld) 35.5 % 47-70 [facility] Potassium [Moles/Vol] 4.5 mmol/L 3.5-5.1 [facility] Sodium [Moles/Vol] 138 mmol/L 136-145 [facility] WBC (Bld) [#/Vol] 6.6 10*3/uL 4.4-11.0 [facility] Blood erythrocytes count (nu mber/volume)Ordered By: Dr. Anderson on 06-30-2022 RBC (Bld) [#/Vol] 3.62 10*6/uL 4.2-5.4 [facility] Blood hemoglobin measurement (mass/volume)Ordered By: Dr. Anderson on 06-30-2022 Hemoglobin (Bld) [Mass/Vol] 11.4 g/dL 12.0-15.0 [facility] Blood lymphocytes/100 leukoc ytesOrdered By: Dr. Anderson on 06-30-2022 Lymphocytes/100 WBC (Bld) 41.6 % 19-41 [facility] Blood monocytes/100 leukocyt esOrdered By: Dr. Anderson on 06-30-2022 Monocytes/100 WBC (Bld) 11.0 % 0-10 [facility] Blood platelet mean volumeOr dered By: Dr. Anderson on 06-30-2022 Platelet mean volume (Bld) [Entitic vol] 10.0 fL 6.2-12.0 [facility] Determination of erythrocyte mean corpuscular volume (MCV)Ordered By: Dr. Anderson on 06-30-2022 MCV (RBC) [Entitic vol] 103.0 fL 81-99 [facility] Hematocrit Auto (Bld) [Volum e fraction]Ordered By: Dr. Anderson on 06-30-2022 Hematocrit (Bld) [Volume fraction] 37.3 % 37-47 [facility] - Chemistry and C hemistry - challengeOrdered By: Dr. Anderson on 06-30-2022 CO2 [Moles/Vol] 30.0 mmol/L 21.0-32.0 [facility] Urea nitrogen/Creatinine [Mass ratio] 20.6 mg/mg 10-20 [facility] - Hematology and Cell countsOrdered By: Dr. Anderson on 06-30-2022 Erythrocyte distribution width (RBC) [Entitic vol] 50.2 fL 35.1-43.9 [facility] Erythrocyte distribution width (RBC) [Ratio] 13.2 % 11.6-14.6 [facility] Immature granulocytes/100 WBC (Bld) 0.300 % 0.0-0.9 [facility] Comment on above: IG% - Immature Granu locytes (promyelocytes, myelocytes and metamyelocytes) > 1% indicates that a LEFT SHIFT is Present. MCH (RBC) [Entitic mass] 31.5 pg 27.0-32.0 [facility] Nucleated RBC/100 WBC (Bld) [Ratio] 0 % 0-5 [facility] MCHC Auto (RBC) [Mass/Vol]Or dered By: Dr. Anderson on 06-30-2022 MCHC (RBC) [Mass/Vol] 30.6 g/dL 32-36 [facility] No Panel InformationOrdered By: Dr. Anderosn on 06-30-2022 Estimated GFR (MDRD) Amer 110 mL/min >60 [facility] Comment on above: GFR Calc Estimated GFR (MDRD) Non-Af Amer 91 mL/min >60 [facility] Comment on above: Non- GFR Calc 31.5 pg 27.0-32.0 [facility] 13.2 % 11.6-14.6 [facility] 50.2 fl 35.1-43.9 [facility] 0.300 % 0.0-0.9 [facility] 0 % 0-5 [facility] 91 mL/min >60 [facility] 110 mL/min >60 [facility] 20.6 RATIO 10-20 [facility] 30.0 mmol/L 21.0-32.0 [facility] Platelets bldOrdered By: Dr. Anderson on 06-30-2022 Platelets (Bld) [#/Vol] 240 10*3/uL 150-450 [facility] Serum or plasma calcium moriah urement (mass/volume)Ordered By: Dr. Anderson on 06-30-2022 Calcium [Mass/Vol] 8.2 mg/dL 8.5-10.1 [facility] Serum or plasma creatinine m easurement (mass/volume)Ordered By: Dr. Anderson on 06-30-2022 Creatinine [Mass/Vol] 0.68 mg/dL 0.55-1.02 [facility] Comment on above: The validity of the calculated GFR & GFRAA in patients over 70 years has not been determined. Clinical correlation is essential. Serum or plasma urea nitroge n measurement (mass/volume)Ordered By: Dr. Anderson on 06-30-2022 Urea nitrogen [Mass/Vol] 14 mg/dL 7-18 [facility] Thin prep Papanicolaou smear with manual screeningOrdered By: Dr. Anderson on 06-30-2022 Thin prep Papanicolaou smear with manual screening 2 5-15 [facility] Absolute lymphocyte countOrd ered By: Dr. Anderson on 06-16-2022 Lymphocytes Auto (Unsp spec) [#/Vol] 2.44 10*3/uL 0.83-4.51 [facility] Basophil percentageOrdered B y: Dr. Anderson on 06-16-2022 Basophil percentage 87 mg/dL 74-106 [facility] Basophil percentage 139 mmol/L 136-145 [facility] Basophil percentage 4.3 mmol/L 3.5-5.1 [facility] Basophil percentage 107 mmol/L 98-107 [facility] Basophils (Bld) [#/Vol] 5.6 10*3/uL 4.4-11.0 [facility] Basophils (Bld) [#/Vol] 2.1 10*3/uL 2.0-7.7 [facility] Basophils/100 WBC (Bld) 0.7 % 0-1 [facility] Basophils/100 WBC (Bld) 37.1 % 47-70 [facility] Basophils/100 WBC (Bld) 7.8 % 0-5 [facility] Chloride [Moles/Vol] 107 mmol/L 98-107 [facility] Eosinophils/100 WBC (Bld) 7.8 % 0-5 [facility] Glucose [Mass/Vol] 87 mg/dL 74-106 [facility] Neutrophils (Bld) [#/Vol] 2.1 10*3/uL 2.0-7.7 [facility] Neutrophils/100 WBC (Bld) 37.1 % 47-70 [facility] Potassium [Moles/Vol] 4.3 mmol/L 3.5-5.1 [facility] Sodium [Moles/Vol] 139 mmol/L 136-145 [facility] WBC (Bld) [#/Vol] 5.6 10*3/uL 4.4-11.0 [facility] Blood erythrocytes count (nu mber/volume)Ordered By: Dr. Anderson on 06-16-2022 RBC (Bld) [#/Vol] 3.57 10*6/uL 4.2-5.4 [facility] Blood hemoglobin measurement (mass/volume)Ordered By: Dr. Anderson on 06-16-2022 Hemoglobin (Bld) [Mass/Vol] 11.2 g/dL 12.0-15.0 [facility] Blood lymphocytes/100 leukoc ytesOrdered By: Dr. Anderson on 06-16-2022 Lymphocytes/100 WBC (Bld) 43.3 % 19-41 [facility] Blood monocytes/100 leukocyt esOrdered By: Dr. Anderson on 06-16-2022 Monocytes/100 WBC (Bld) 10.7 % 0-10 [facility] Blood platelet mean volumeOr dered By: Dr. Anderson on 06-16-2022 Platelet mean volume (Bld) [Entitic vol] 10.4 fL 6.2-12.0 [facility] Determination of erythrocyte mean corpuscular volume (MCV)Ordered By: Dr. Anderson on 06-16-2022 MCV (RBC) [Entitic vol] 101.7 fL 81-99 [facility] Hematocrit Auto (Bld) [Volum e fraction]Ordered By: Dr. Anderson on 06-16-2022 Hematocrit (Bld) [Volume fraction] 36.3 % 37-47 [facility] - Chemistry and C hemistry - challengeOrdered By: Dr. Anderson on 06-16-2022 CO2 [Moles/Vol] 30.0 mmol/L 21.0-32.0 [facility] Urea nitrogen/Creatinine [Mass ratio] 20.9 mg/mg 10-20 [facility] - Hematology and Cell countsOrdered By: Dr. Anderson on 06-16-2022 Erythrocyte distribution width (RBC) [Entitic vol] 49.2 fL 35.1-43.9 [facility] Erythrocyte distribution width (RBC) [Ratio] 13.2 % 11.6-14.6 [facility] Immature granulocytes/100 WBC (Bld) 0.400 % 0.0-0.9 [facility] Comment on above: IG% - Immature Granu locytes (promyelocytes, myelocytes and metamyelocytes) > 1% indicates that a LEFT SHIFT is Present. MCH (RBC) [Entitic mass] 31.4 pg 27.0-32.0 [facility] Nucleated RBC/100 WBC (Bld) [Ratio] 0 % 0-5 [facility] MCHC Auto (RBC) [Mass/Vol]Or dered By: Dr. Anderson on 06-16-2022 MCHC (RBC) [Mass/Vol] 30.9 g/dL 32-36 [facility] No Panel InformationOrdered By: Dr. Anderson on 06-16-2022 Estimated GFR (MDRD) Amer 112 mL/min >60 [facility] Comment on above: GFR Calc Estimated GFR (MDRD) Non-Af Amer 92 mL/min >60 [facility] Comment on above: Non- GFR Calc 31.4 pg 27.0-32.0 [facility] 13.2 % 11.6-14.6 [facility] 49.2 fl 35.1-43.9 [facility] 0.400 % 0.0-0.9 [facility] 0 % 0-5 [facility] 92 mL/min >60 [facility] 112 mL/min >60 [facility] 20.9 RATIO 10-20 [facility] 30.0 mmol/L 21.0-32.0 [facility] Platelets bldOrdered By: Dr. Anderson on 06-16-2022 Platelets (Bld) [#/Vol] 263 10*3/uL 150-450 [facility] Serum or plasma calcium moriah urement (mass/volume)Ordered By: Dr. Anderson on 06-16-2022 Calcium [Mass/Vol] 8.1 mg/dL 8.5-10.1 [facility] Serum or plasma creatinine m easurement (mass/volume)Ordered By: Dr. Anderson on 06-16-2022 Creatinine [Mass/Vol] 0.67 mg/dL 0.55-1.02 [facility] Comment on above: The validity of the calculated GFR & GFRAA in patients over 70 years has not been determined. Clinical correlation is essential. Serum or plasma urea nitroge n measurement (mass/volume)Ordered By: Dr. Anderson on 06-16-2022 Urea nitrogen [Mass/Vol] 14 mg/dL 7-18 [facility] Thin prep Papanicolaou smear with manual screeningOrdered By: Dr. Anderson on 06-16-2022 Thin prep Papanicolaou smear with manual screening 2 5-15 [facility] Absolute lymphocyte countOrd ered By: Dr. Anderson on 06-09-2022 Lymphocytes Auto (Unsp spec) [#/Vol] 1.91 10*3/uL 0.83-4.51 [facility] Basophil percentageOrdered B y: Dr. Anderson on 06-09-2022 Basophil percentage 83 mg/dL 74-106 [facility] Basophil percentage 140 mmol/L 136-145 [facility] Basophil percentage 4.4 mmol/L 3.5-5.1 [facility] Basophil percentage 106 mmol/L 98-107 [facility] Basophils (Bld) [#/Vol] 6.0 10*3/uL 4.4-11.0 [facility] Basophils (Bld) [#/Vol] 2.9 10*3/uL 2.0-7.7 [facility] Basophils/100 WBC (Bld) 1.0 % 0-1 [facility] Basophils/100 WBC (Bld) 49.4 % 47-70 [facility] Basophils/100 WBC (Bld) 5.9 % 0-5 [facility] Chloride [Moles/Vol] 106 mmol/L 98-107 [facility] Eosinophils/100 WBC (Bld) 5.9 % 0-5 [facility] Glucose [Mass/Vol] 83 mg/dL 74-106 [facility] Neutrophils (Bld) [#/Vol] 2.9 10*3/uL 2.0-7.7 [facility] Neutrophils/100 WBC (Bld) 49.4 % 47-70 [facility] Potassium [Moles/Vol] 4.4 mmol/L 3.5-5.1 [facility] Sodium [Moles/Vol] 140 mmol/L 136-145 [facility] WBC (Bld) [#/Vol] 6.0 10*3/uL 4.4-11.0 [facility] Blood erythrocytes count (nu mber/volume)Ordered By: Dr. Anderson on 06-09-2022 RBC (Bld) [#/Vol] 3.61 10*6/uL 4.2-5.4 [facility] Blood hemoglobin measurement (mass/volume)Ordered By: Dr. Anderson on 06-09-2022 Hemoglobin (Bld) [Mass/Vol] 11.3 g/dL 12.0-15.0 [facility] Blood lymphocytes/100 leukoc ytesOrdered By: Dr. Anderson on 06-09-2022 Lymphocytes/100 WBC (Bld) 32.0 % 19-41 [facility] Blood monocytes/100 leukocyt esOrdered By: Dr. Anderson on 06-09-2022 Monocytes/100 WBC (Bld) 11.4 % 0-10 [facility] Blood platelet mean volumeOr dered By: Dr. Anderson on 06-09-2022 Platelet mean volume (Bld) [Entitic vol] 10.2 fL 6.2-12.0 [facility] Determination of erythrocyte mean corpuscular volume (MCV)Ordered By: Dr. Anderson on 06-09-2022 MCV (RBC) [Entitic vol] 103.0 fL 81-99 [facility] Hematocrit Auto (Bld) [Volum e fraction]Ordered By: Dr. Anderson on 06-09-2022 Hematocrit (Bld) [Volume fraction] 37.2 % 37-47 [facility] - Chemistry and C hemistry - challengeOrdered By: Dr. Anderson on 06-09-2022 CO2 [Moles/Vol] 30.0 mmol/L 21.0-32.0 [facility] Urea nitrogen/Creatinine [Mass ratio] 18.1 mg/mg 10-20 [facility] - Hematology and Cell countsOrdered By: Dr. Anderson on 06-09-2022 Erythrocyte distribution width (RBC) [Entitic vol] 51.5 fL 35.1-43.9 [facility] Erythrocyte distribution width (RBC) [Ratio] 13.2 % 11.6-14.6 [facility] Immature granulocytes/100 WBC (Bld) 0.300 % 0.0-0.9 [facility] Comment on above: IG% - Immature Granu locytes (promyelocytes, myelocytes and metamyelocytes) > 1% indicates that a LEFT SHIFT is Present. MCH (RBC) [Entitic mass] 31.3 pg 27.0-32.0 [facility] Nucleated RBC/100 WBC (Bld) [Ratio] 0 % 0-5 [facility] MCHC Auto (RBC) [Mass/Vol]Or dered By: Dr. Anderson on 06-09-2022 MCHC (RBC) [Mass/Vol] 30.4 g/dL 32-36 [facility] No Panel InformationOrdered By: Dr. Anderson on 06-09-2022 Estimated GFR (MDRD) Amer 103 mL/min >60 [facility] Comment on above: GFR Calc Estimated GFR (MDRD) Non-Af Amer 85 mL/min >60 [facility] Comment on above: Non- GFR Calc 31.3 pg 27.0-32.0 [facility] 13.2 % 11.6-14.6 [facility] 51.5 fl 35.1-43.9 [facility] 0.300 % 0.0-0.9 [facility] 0 % 0-5 [facility] 85 mL/min >60 [facility] 103 mL/min >60 [facility] 18.1 RATIO 10-20 [facility] 30.0 mmol/L 21.0-32.0 [facility] Platelets bldOrdered By: Dr. Anderson on 06-09-2022 Platelets (Bld) [#/Vol] 321 10*3/uL 150-450 [facility] Serum or plasma calcium moriah urement (mass/volume)Ordered By: Dr. Anderson on 06-09-2022 Calcium [Mass/Vol] 8.6 mg/dL 8.5-10.1 [facility] Serum or plasma creatinine m easurement (mass/volume)Ordered By: Dr. Anderson on 06-09-2022 Creatinine [Mass/Vol] 0.72 mg/dL 0.55-1.02 [facility] Comment on above: The validity of the calculated GFR & GFRAA in patients over 70 years has not been determined. Clinical correlation is essential. Serum or plasma urea nitroge n measurement (mass/volume)Ordered By: Dr. Anderson on 06-09-2022 Urea nitrogen [Mass/Vol] 13 mg/dL 7-18 [facility] Thin prep Papanicolaou smear with manual screeningOrdered By: Dr. Anderson on 06-09-2022 Thin prep Papanicolaou smear with manual screening 4 5-15 [facility] Thin prep Papanicolaou smear with manual screening Neisseria or beta-hemolytic Streptococcus isolated. [facility] Gram stain for investigation of transfusion reactionOrdered By: Dr. Anderson on 06-07-2022 Microscopic observation Gram stain Nom (Unsp spec) [facility] Absolute lymphocyte countOrd ered By: Dr. Anderson on 06-02-2022 Lymphocytes Auto (Unsp spec) [#/Vol] 2.53 10*3/uL 0.83-4.51 [facility] Basophil percentageOrdered B y: Dr. Anderson on 06-02-2022 Basophil percentage 88 mg/dL 74-106 [facility] Basophil percentage 141 mmol/L 136-145 [facility] Basophil percentage 4.5 mmol/L 3.5-5.1 [facility] Basophil percentage 108 mmol/L 98-107 [facility] Basophils (Bld) [#/Vol] 7.6 10*3/uL 4.4-11.0 [facility] Basophils (Bld) [#/Vol] 3.8 10*3/uL 2.0-7.7 [facility] Basophils/100 WBC (Bld) 0.8 % 0-1 [facility] Basophils/100 WBC (Bld) 50.6 % 47-70 [facility] Basophils/100 WBC (Bld) 5.7 % 0-5 [facility] Chloride [Moles/Vol] 108 mmol/L 98-107 [facility] Eosinophils/100 WBC (Bld) 5.7 % 0-5 [facility] Glucose [Mass/Vol] 88 mg/dL 74-106 [facility] Neutrophils (Bld) [#/Vol] 3.8 10*3/uL 2.0-7.7 [facility] Neutrophils/100 WBC (Bld) 50.6 % 47-70 [facility] Potassium [Moles/Vol] 4.5 mmol/L 3.5-5.1 [facility] Sodium [Moles/Vol] 141 mmol/L 136-145 [facility] WBC (Bld) [#/Vol] 7.6 10*3/uL 4.4-11.0 [facility] Blood erythrocytes count (nu mber/volume)Ordered By: Dr. Anderson on 06-02-2022 RBC (Bld) [#/Vol] 3.58 10*6/uL 4.2-5.4 [facility] Blood hemoglobin measurement (mass/volume)Ordered By: Dr. Anderson on 06-02-2022 Hemoglobin (Bld) [Mass/Vol] 11.2 g/dL 12.0-15.0 [facility] Blood lymphocytes/100 leukoc ytesOrdered By: Dr. Anderson on 06-02-2022 Lymphocytes/100 WBC (Bld) 33.3 % 19-41 [facility] Blood monocytes/100 leukocyt esOrdered By: Dr. Anderson on 06-02-2022 Monocytes/100 WBC (Bld) 9.1 % 0-10 [facility] Blood platelet mean volumeOr dered By: Dr. Anderson on 06-02-2022 Platelet mean volume (Bld) [Entitic vol] 9.7 fL 6.2-12.0 [facility] Determination of erythrocyte mean corpuscular volume (MCV)Ordered By: Dr. Anderson on 06-02-2022 MCV (RBC) [Entitic vol] 103.9 fL 81-99 [facility] Hematocrit Auto (Bld) [Volum e fraction]Ordered By: Dr. Anderson on 06-02-2022 Hematocrit (Bld) [Volume fraction] 37.2 % 37-47 [facility] - Chemistry and C hemistry - challengeOrdered By: Dr. Anderson on 06-02-2022 CO2 [Moles/Vol] 31.0 mmol/L 21.0-32.0 [facility] Urea nitrogen/Creatinine [Mass ratio] 19.2 mg/mg 10-20 [facility] - Hematology and Cell countsOrdered By: Dr. Anderson on 06-02-2022 Erythrocyte distribution width (RBC) [Entitic vol] 52.9 fL 35.1-43.9 [facility] Erythrocyte distribution width (RBC) [Ratio] 13.7 % 11.6-14.6 [facility] Immature granulocytes/100 WBC (Bld) 0.500 % 0.0-0.9 [facility] Comment on above: IG% - Immature Granu locytes (promyelocytes, myelocytes and metamyelocytes) > 1% indicates that a LEFT SHIFT is Present. MCH (RBC) [Entitic mass] 31.3 pg 27.0-32.0 [facility] Nucleated RBC/100 WBC (Bld) [Ratio] 0 % 0-5 [facility] MCHC Auto (RBC) [Mass/Vol]Or dered By: Dr. Anderson on 06-02-2022 MCHC (RBC) [Mass/Vol] 30.1 g/dL 32-36 [facility] No Panel InformationOrdered By: Dr. Anderson on 06-02-2022 Estimated GFR (MDRD) Amer 110 mL/min >60 [facility] Comment on above: GFR Calc Estimated GFR (MDRD) Non-Af Amer 91 mL/min >60 [facility] Comment on above: Non- GFR Calc 31.3 pg 27.0-32.0 [facility] 13.7 % 11.6-14.6 [facility] 52.9 fl 35.1-43.9 [facility] 0.500 % 0.0-0.9 [facility] 0 % 0-5 [facility] 91 mL/min >60 [facility] 110 mL/min >60 [facility] 19.2 RATIO 10-20 [facility] 31.0 mmol/L 21.0-32.0 [facility] Platelets bldOrdered By: Dr. Anderson on 06-02-2022 Platelets (Bld) [#/Vol] 292 10*3/uL 150-450 [facility] Serum or plasma calcium moriah urement (mass/volume)Ordered By: Dr. Anderson on 06-02-2022 Calcium [Mass/Vol] 8.3 mg/dL 8.5-10.1 [facility] Serum or plasma creatinine m easurement (mass/volume)Ordered By: Dr. Anderson on 06-02-2022 Creatinine [Mass/Vol] 0.68 mg/dL 0.55-1.02 [facility] Comment on above: The validity of the calculated GFR & GFRAA in patients over 70 years has not been determined. Clinical correlation is essential. Serum or plasma urea nitroge n measurement (mass/volume)Ordered By: Dr. Anderson on 06-02-2022 Urea nitrogen [Mass/Vol] 13 mg/dL 7-18 [facility] Thin prep Papanicolaou smear with manual screeningOrdered By: Dr. Anderson on 06-02-2022 Thin prep Papanicolaou smear with manual screening 2 5-15 [facility] No Panel InformationOrdered By: Dr. Anderson on 05-31-2022 Thyroid Stimulating Hormone (TSH) 1.68 uIU/mL 0.358-3.74 [facility] 1.68 uIU/mL 0.358-3.74 [facility] Absolute lymphocyte countOrd ered By: Dr. Anderson on 05-26-2022 Lymphocytes Auto (Unsp spec) [#/Vol] 1.80 10*3/uL 0.83-4.51 [facility] Basophil percentageOrdered B y: Dr. Anderson on 05-26-2022 Basophil percentage 78 mg/dL 74-106 [facility] Basophil percentage 141 mmol/L 136-145 [facility] Basophil percentage 4.6 mmol/L 3.5-5.1 [facility] Basophil percentage 108 mmol/L 98-107 [facility] Basophils (Bld) [#/Vol] 7.1 10*3/uL 4.4-11.0 [facility] Basophils (Bld) [#/Vol] 3.8 10*3/uL 2.0-7.7 [facility] Basophils/100 WBC (Bld) 0.8 % 0-1 [facility] Basophils/100 WBC (Bld) 53.9 % 47-70 [facility] Basophils/100 WBC (Bld) 6.9 % 0-5 [facility] Chloride [Moles/Vol] 108 mmol/L 98-107 [facility] Eosinophils/100 WBC (Bld) 6.9 % 0-5 [facility] Glucose [Mass/Vol] 78 mg/dL 74-106 [facility] Neutrophils (Bld) [#/Vol] 3.8 10*3/uL 2.0-7.7 [facility] Neutrophils/100 WBC (Bld) 53.9 % 47-70 [facility] Potassium [Moles/Vol] 4.6 mmol/L 3.5-5.1 [facility] Sodium [Moles/Vol] 141 mmol/L 136-145 [facility] WBC (Bld) [#/Vol] 7.1 10*3/uL 4.4-11.0 [facility] Blood erythrocytes count (nu mber/volume)Ordered By: Dr. Anderson on 05-26-2022 RBC (Bld) [#/Vol] 3.57 10*6/uL 4.2-5.4 [facility] Blood hemoglobin measurement (mass/volume)Ordered By: Dr. Anderson on 05-26-2022 Hemoglobin (Bld) [Mass/Vol] 11.2 g/dL 12.0-15.0 [facility] Blood lymphocytes/100 leukoc ytesOrdered By: Dr. Anderson on 05-26-2022 Lymphocytes/100 WBC (Bld) 25.2 % 19-41 [facility] Blood monocytes/100 leukocyt esOrdered By: Dr. Anderson on 05-26-2022 Monocytes/100 WBC (Bld) 12.9 % 0-10 [facility] Blood platelet mean volumeOr dered By: Dr. Anderson on 05-26-2022 Platelet mean volume (Bld) [Entitic vol] 10.4 fL 6.2-12.0 [facility] Determination of erythrocyte mean corpuscular volume (MCV)Ordered By: Dr. Anderson on 05-26-2022 MCV (RBC) [Entitic vol] 103.1 fL 81-99 [facility] Hematocrit Auto (Bld) [Volum e fraction]Ordered By: Dr. Anderson on 05-26-2022 Hematocrit (Bld) [Volume fraction] 36.8 % 37-47 [facility] - Chemistry and C hemistry - challengeOrdered By: Dr. Anderson on 05-26-2022 CO2 [Moles/Vol] 27.0 mmol/L 21.0-32.0 [facility] Urea nitrogen/Creatinine [Mass ratio] 14.3 mg/mg 10- [facility] - Hematology and Cell countsOrdered By: Dr. Anderson on 05-26-2022 Erythrocyte distribution width (RBC) [Entitic vol] 53.0 fL 35.1-43.9 [facility] Erythrocyte distribution width (RBC) [Ratio] 13.8 % 11.6-14.6 [facility] Immature granulocytes/100 WBC (Bld) 0.300 % 0.0-0.9 [facility] Comment on above: IG% - Immature Granu locytes (promyelocytes, myelocytes and metamyelocytes) > 1% indicates that a LEFT SHIFT is Present. MCH (RBC) [Entitic mass] 31.4 pg 27.0-32.0 [facility] Nucleated RBC/100 WBC (Bld) [Ratio] 0 % 0-5 [facility] MCHC Auto (RBC) [Mass/Vol]Or dered By: Dr. Anderson on 05-26-2022 MCHC (RBC) [Mass/Vol] 30.4 g/dL 32-36 [facility] No Panel InformationOrdered By: Dr. Anderson on 05-26-2022 Estimated GFR (MDRD) Amer 138 mL/min >60 [facility] Comment on above: GFR Calc Estimated GFR (MDRD) Non-Af Amer 114 mL/min >60 [facility] Comment on above: Non- GFR Calc 31.4 pg 27.0-32.0 [facility] 13.8 % 11.6-14.6 [facility] 53.0 fl 35.1-43.9 [facility] 0.300 % 0.0-0.9 [facility] 0 % 0-5 [facility] 114 mL/min >60 [facility] 138 mL/min >60 [facility] 14.3 RATIO 10-20 [facility] 27.0 mmol/L 21.0-32.0 [facility] Platelets bldOrdered By: Dr. Anderson on 05-26-2022 Platelets (Bld) [#/Vol] 253 10*3/uL 150-450 [facility] Serum or plasma calcium moriah urement (mass/volume)Ordered By: Dr. Anderson on 05-26-2022 Calcium [Mass/Vol] 8.6 mg/dL 8.5-10.1 [facility] Serum or plasma creatinine m easurement (mass/volume)Ordered By: Dr. Anderson on 05-26-2022 Creatinine [Mass/Vol] 0.56 mg/dL 0.55-1.02 [facility] Comment on above: The validity of the calculated GFR & GFRAA in patients over 70 years has not been determined. Clinical correlation is essential. Serum or plasma urea nitroge n measurement (mass/volume)Ordered By: Dr. Anderson on 05-26-2022 Urea nitrogen [Mass/Vol] 8 mg/dL 7-18 [facility] Thin prep Papanicolaou smear with manual screeningOrdered By: Dr. Anderson on 05-26-2022 Thin prep Papanicolaou smear with manual screening 6 5-15 [facility] Absolute lymphocyte countOrd ered By: Dr. Anderson on 05-19-2022 Lymphocytes Auto (Unsp spec) [#/Vol] 2.21 10*3/uL 0.83-4.51 [facility] Basophil percentageOrdered B y: Dr. Anderson on 05-19-2022 Basophil percentage 83 mg/dL 74-106 [facility] Basophil percentage 138 mmol/L 136-145 [facility] Basophil percentage 4.5 mmol/L 3.5-5.1 [facility] Basophil percentage 105 mmol/L 98-107 [facility] Basophils (Bld) [#/Vol] 8.3 10*3/uL 4.4-11.0 [facility] Basophils (Bld) [#/Vol] 5.0 10*3/uL 2.0-7.7 [facility] Basophils/100 WBC (Bld) 0.8 % 0-1 [facility] Basophils/100 WBC (Bld) 59.6 % 47-70 [facility] Basophils/100 WBC (Bld) 5.6 % 0-5 [facility] Chloride [Moles/Vol] 105 mmol/L 98-107 [facility] Eosinophils/100 WBC (Bld) 5.6 % 0-5 [facility] Glucose [Mass/Vol] 83 mg/dL 74-106 [facility] Neutrophils (Bld) [#/Vol] 5.0 10*3/uL 2.0-7.7 [facility] Neutrophils/100 WBC (Bld) 59.6 % 47-70 [facility] Potassium [Moles/Vol] 4.5 mmol/L 3.5-5.1 [facility] Sodium [Moles/Vol] 138 mmol/L 136-145 [facility] WBC (Bld) [#/Vol] 8.3 10*3/uL 4.4-11.0 [facility] Blood erythrocytes count (nu mber/volume)Ordered By: Dr. Anderson on 05-19-2022 RBC (Bld) [#/Vol] 3.79 10*6/uL 4.2-5.4 [facility] Blood hemoglobin measurement (mass/volume)Ordered By: Dr. Anderson on 05-19-2022 Hemoglobin (Bld) [Mass/Vol] 12.0 g/dL 12.0-15.0 [facility] Blood lymphocytes/100 leukoc ytesOrdered By: Dr. Anderson on 05-19-2022 Lymphocytes/100 WBC (Bld) 26.5 % 19-41 [facility] Blood monocytes/100 leukocyt esOrdered By: Dr. Anderson on 05-19-2022 Monocytes/100 WBC (Bld) 7.3 % 0-10 [facility] Blood platelet mean volumeOr dered By: Dr. Anderson on 05-19-2022 Platelet mean volume (Bld) [Entitic vol] 10.1 fL 6.2-12.0 [facility] Determination of erythrocyte mean corpuscular volume (MCV)Ordered By: Dr. Anderson on 05-19-2022 MCV (RBC) [Entitic vol] 103.2 fL 81-99 [facility] Hematocrit Auto (Bld) [Volum e fraction]Ordered By: Dr. Anderson on 05-19-2022 Hematocrit (Bld) [Volume fraction] 39.1 % 37-47 [facility] - Chemistry and C hemistry - challengeOrdered By: Dr. Anderson on 05-19-2022 CO2 [Moles/Vol] 29.0 mmol/L 21.0-32.0 [facility] Urea nitrogen/Creatinine [Mass ratio] 15.8 mg/mg 10-20 [facility] - Hematology and Cell countsOrdered By: Dr. Anderson on 05-19-2022 Erythrocyte distribution width (RBC) [Entitic vol] 53.5 fL 35.1-43.9 [facility] Erythrocyte distribution width (RBC) [Ratio] 14.2 % 11.6-14.6 [facility] Immature granulocytes/100 WBC (Bld) 0.200 % 0.0-0.9 [facility] Comment on above: IG% - Immature Granu locytes (promyelocytes, myelocytes and metamyelocytes) > 1% indicates that a LEFT SHIFT is Present. MCH (RBC) [Entitic mass] 31.7 pg 27.0-32.0 [facility] Nucleated RBC/100 WBC (Bld) [Ratio] 0 % 0-5 [facility] MCHC Auto (RBC) [Mass/Vol]Or dered By: Dr. Anderson on 05-19-2022 MCHC (RBC) [Mass/Vol] 30.7 g/dL 32-36 [facility] No Panel InformationOrdered By: Dr. Anderson on 05-19-2022 Estimated GFR (MDRD) Amer 96 mL/min >60 [facility] Comment on above: GFR Calc Estimated GFR (MDRD) Non-Af Amer 80 mL/min >60 [facility] Comment on above: Non- GFR Calc 31.7 pg 27.0-32.0 [facility] 14.2 % 11.6-14.6 [facility] 53.5 fl 35.1-43.9 [facility] 0.200 % 0.0-0.9 [facility] 0 % 0-5 [facility] 80 mL/min >60 [facility] 96 mL/min >60 [facility] 15.8 RATIO 10-20 [facility] 29.0 mmol/L 21.0-32.0 [facility] Platelets bldOrdered By: Dr. Anderson on 05-19-2022 Platelets (Bld) [#/Vol] 340 10*3/uL 150-450 [facility] Serum or plasma calcium moriah urement (mass/volume)Ordered By: Dr. Anderson on 05-19-2022 Calcium [Mass/Vol] 8.7 mg/dL 8.5-10.1 [facility] Serum or plasma creatinine m easurement (mass/volume)Ordered By: Dr. Anderson on 05-19-2022 Creatinine [Mass/Vol] 0.76 mg/dL 0.55-1.02 [facility] Comment on above: The validity of the calculated GFR & GFRAA in patients over 70 years has not been determined. Clinical correlation is essential. Serum or plasma urea nitroge n measurement (mass/volume)Ordered By: Dr. Anderson on 05-19-2022 Urea nitrogen [Mass/Vol] 12 mg/dL 7-18 [facility] Thin prep Papanicolaou smear with manual screeningOrdered By: Dr. Anderson on 05-19-2022 Thin prep Papanicolaou smear with manual screening 4 5-15 [facility] Absolute lymphocyte countOrd ered By: Dr. Anderson on 05-12-2022 Lymphocytes Auto (Unsp spec) [#/Vol] 1.90 10*3/uL 0.83-4.51 [facility] Basophil percentageOrdered B y: Dr. Anderson on 05-12-2022 Basophil percentage 90 mg/dL 74-106 [facility] Basophil percentage 141 mmol/L 136-145 [facility] Basophil percentage 4.6 mmol/L 3.5-5.1 [facility] Basophil percentage 105 mmol/L 98-107 [facility] Basophils (Bld) [#/Vol] 5.6 10*3/uL 4.4-11.0 [facility] Basophils (Bld) [#/Vol] 2.7 10*3/uL 2.0-7.7 [facility] Basophils/100 WBC (Bld) 0.9 % 0-1 [facility] Basophils/100 WBC (Bld) 48.5 % 47-70 [facility] Basophils/100 WBC (Bld) 7.3 % 0-5 [facility] Chloride [Moles/Vol] 105 mmol/L 98-107 [facility] Eosinophils/100 WBC (Bld) 7.3 % 0-5 [facility] Glucose [Mass/Vol] 90 mg/dL 74-106 [facility] Neutrophils (Bld) [#/Vol] 2.7 10*3/uL 2.0-7.7 [facility] Neutrophils/100 WBC (Bld) 48.5 % 47-70 [facility] Potassium [Moles/Vol] 4.6 mmol/L 3.5-5.1 [facility] Sodium [Moles/Vol] 141 mmol/L 136-145 [facility] WBC (Bld) [#/Vol] 5.6 10*3/uL 4.4-11.0 [facility] Blood erythrocytes count (nu mber/volume)Ordered By: Dr. Anderson on 05-12-2022 RBC (Bld) [#/Vol] 3.66 10*6/uL 4.2-5.4 [facility] Blood hemoglobin measurement (mass/volume)Ordered By: Dr. Anderson on 05-12-2022 Hemoglobin (Bld) [Mass/Vol] 11.4 g/dL 12.0-15.0 [facility] Blood lymphocytes/100 leukoc ytesOrdered By: Dr. Anderson on 05-12-2022 Lymphocytes/100 WBC (Bld) 33.7 % 19-41 [facility] Blood monocytes/100 leukocyt esOrdered By: Dr. Anderson on 05-12-2022 Monocytes/100 WBC (Bld) 9.4 % 0-10 [facility] Blood platelet mean volumeOr dered By: Dr. Anderson on 05-12-2022 Platelet mean volume (Bld) [Entitic vol] 9.9 fL 6.2-12.0 [facility] Determination of erythrocyte mean corpuscular volume (MCV)Ordered By: Dr. Anderson on 05-12-2022 MCV (RBC) [Entitic vol] 102.7 fL 81-99 [facility] Hematocrit Auto (Bld) [Volum e fraction]Ordered By: Dr. Anderson on 05-12-2022 Hematocrit (Bld) [Volume fraction] 37.6 % 37-47 [facility] - Chemistry and C hemistry - challengeOrdered By: Dr. Anderson on 05-12-2022 CO2 [Moles/Vol] 32.0 mmol/L 21.0-32.0 [facility] Urea nitrogen/Creatinine [Mass ratio] 21.1 mg/mg 10-20 [facility] - Hematology and Cell countsOrdered By: Dr. Anderson on 05-12-2022 Erythrocyte distribution width (RBC) [Entitic vol] 52.5 fL 35.1-43.9 [facility] Erythrocyte distribution width (RBC) [Ratio] 13.9 % 11.6-14.6 [facility] Immature granulocytes/100 WBC (Bld) 0.200 % 0.0-0.9 [facility] Comment on above: IG% - Immature Granu locytes (promyelocytes, myelocytes and metamyelocytes) > 1% indicates that a LEFT SHIFT is Present. MCH (RBC) [Entitic mass] 31.1 pg 27.0-32.0 [facility] Nucleated RBC/100 WBC (Bld) [Ratio] 0 % 0-5 [facility] MCHC Auto (RBC) [Mass/Vol]Or dered By: Dr. Anderson on 05-12-2022 MCHC (RBC) [Mass/Vol] 30.3 g/dL 32-36 [facility] No Panel InformationOrdered By: Dr. Anderson on 05-12-2022 Estimated GFR (MDRD) Amer 104 mL/min >60 [facility] Comment on above: GFR Calc Estimated GFR (MDRD) Non-Af Amer 86 mL/min >60 [facility] Comment on above: Non- GFR Calc 31.1 pg 27.0-32.0 [facility] 13.9 % 11.6-14.6 [facility] 52.5 fl 35.1-43.9 [facility] 0.200 % 0.0-0.9 [facility] 0 % 0-5 [facility] 86 mL/min >60 [facility] 104 mL/min >60 [facility] 21.1 RATIO 10-20 [facility] 32.0 mmol/L 21.0-32.0 [facility] Platelets bldOrdered By: Dr. Anderson on 05-12-2022 Platelets (Bld) [#/Vol] 334 10*3/uL 150-450 [facility] Serum or plasma calcium moriah urement (mass/volume)Ordered By: Dr. Anderson on 05-12-2022 Calcium [Mass/Vol] 8.8 mg/dL 8.5-10.1 [facility] Serum or plasma creatinine m easurement (mass/volume)Ordered By: Dr. Anderson on 05-12-2022 Creatinine [Mass/Vol] 0.71 mg/dL 0.55-1.02 [facility] Comment on above: The validity of the calculated GFR & GFRAA in patients over 70 years has not been determined. Clinical correlation is essential. Serum or plasma urea nitroge n measurement (mass/volume)Ordered By: Dr. Anderson on 05-12-2022 Urea nitrogen [Mass/Vol] 15 mg/dL 7-18 [facility] Thin prep Papanicolaou smear with manual screeningOrdered By: Dr. Anderson on 05-12-2022 Thin prep Papanicolaou smear with manual screening 4 5-15 [facility] Absolute lymphocyte countOrd ered By: Dr. Anderson on 05-11-2022 Lymphocytes Auto (Unsp spec) [#/Vol] 2.56 10*3/uL 0.83-4.51 [facility] Basophil percentageOrdered B y: Dr. Anderson on 05-11-2022 Basophil percentage 96 mg/dL 74-106 [facility] Basophil percentage 171 mg/dL <200 [facility] Basophil percentage 203 mg/dL <199 [facility] Basophil percentage 141 mmol/L 136-145 [facility] Basophil percentage 4.7 mmol/L 3.5-5.1 [facility] Basophil percentage 106 mmol/L 98-107 [facility] Basophils (Bld) [#/Vol] 8.1 10*3/uL 4.4-11.0 [facility] Basophils (Bld) [#/Vol] 4.3 10*3/uL 2.0-7.7 [facility] Basophils/100 WBC (Bld) 0.7 % 0-1 [facility] Basophils/100 WBC (Bld) 53.3 % 47-70 [facility] Basophils/100 WBC (Bld) 5.7 % 0-5 [facility] Chloride [Moles/Vol] 106 mmol/L 98-107 [facility] Cholesterol [Mass/Vol] 171 mg/dL <200 [facility] Comment on above: <200 mg/dL Desirable 200-240 mg/dL Borderline >240 mg/dL High Risk Eosinophils/100 WBC (Bld) 5.7 % 0-5 [facility] Glucose [Mass/Vol] 96 mg/dL 74-106 [facility] Neutrophils (Bld) [#/Vol] 4.3 10*3/uL 2.0-7.7 [facility] Neutrophils/100 WBC (Bld) 53.3 % 47-70 [facility] Potassium [Moles/Vol] 4.7 mmol/L 3.5-5.1 [facility] Sodium [Moles/Vol] 141 mmol/L 136-145 [facility] Triglyceride [Mass/Vol] 203 mg/dL <199 [facility] Comment on above: The drugs N-Acetylcy steine and Metamizole may falsely depress this assay.Serum Triglycerides Reference Interval Normal <150 mg/dL Borderline high 150 - 199 mg/dL High 200 - 499 mg/dL Very High > or = 500 mg/dL WBC (Bld) [#/Vol] 8.1 10*3/uL 4.4-11.0 [facility] Blood erythrocytes count (nu mber/volume)Ordered By: Dr. Anderson on 05-11-2022 RBC (Bld) [#/Vol] 4.08 10*6/uL 4.2-5.4 [facility] Blood hemoglobin measurement (mass/volume)Ordered By: Dr. Anderson on 05-11-2022 Hemoglobin (Bld) [Mass/Vol] 13.2 g/dL 12.0-15.0 [facility] Blood lymphocytes/100 leukoc ytesOrdered By: Dr. Anderson on 05-11-2022 Lymphocytes/100 WBC (Bld) 31.5 % 19-41 [facility] Blood monocytes/100 leukocyt esOrdered By: Dr. Anderson on 05-11-2022 Monocytes/100 WBC (Bld) 8.6 % 0-10 [facility] Blood platelet mean volumeOr dered By: Dr. Anderson on 05-11-2022 Platelet mean volume (Bld) [Entitic vol] 10.3 fL 6.2-12.0 [facility] Determination of erythrocyte mean corpuscular volume (MCV)Ordered By: Dr. Anderson on 05-11-2022 MCV (RBC) [Entitic vol] 103.4 fL 81-99 [facility] Hematocrit Auto (Bld) [Volum e fraction]Ordered By: Dr. Anderson on 05-11-2022 Hematocrit (Bld) [Volume fraction] 42.2 % 37-47 [facility] - Chemistry and C hemistry - challengeOrdered By: Dr. Anderson on 05-11-2022 CO2 [Moles/Vol] 30.0 mmol/L 21.0-32.0 [facility] Cobalamin (Vitamin B12) [Mass/Vol] 656 pg/mL 211-911 [facility] Urea nitrogen/Creatinine [Mass ratio] 17.4 mg/mg 10-20 [facility] - Hematology and Cell countsOrdered By: Dr. Anderson on 05-11-2022 Erythrocyte distribution width (RBC) [Entitic vol] 53.1 fL 35.1-43.9 [facility] Erythrocyte distribution width (RBC) [Ratio] 14.0 % 11.6-14.6 [facility] Immature granulocytes/100 WBC (Bld) 0.200 % 0.0-0.9 [facility] Comment on above: IG% - Immature Granu locytes (promyelocytes, myelocytes and metamyelocytes) > 1% indicates that a LEFT SHIFT is Present. MCH (RBC) [Entitic mass] 32.4 pg 27.0-32.0 [facility] Nucleated RBC/100 WBC (Bld) [Ratio] 0 % 0-5 [facility] MCHC Auto (RBC) [Mass/Vol]Or dered By: Dr. Anderson on 05-11-2022 MCHC (RBC) [Mass/Vol] 31.3 g/dL 32-36 [facility] No Panel InformationOrdered By: Dr. Anderson on 05-11-2022 Estimated GFR (MDRD) Amer 99 mL/min >60 [facility] Comment on above: GFR Calc Estimated GFR (MDRD) Non-Af Amer 82 mL/min >60 [facility] Comment on above: Non- GFR Calc Thyroid Stimulating Hormone (TSH) 4.72 uIU/mL 0.358-3.74 [facility] 32.4 pg 27.0-32.0 [facility] 14.0 % 11.6-14.6 [facility] 53.1 fl 35.1-43.9 [facility] 0.200 % 0.0-0.9 [facility] 0 % 0-5 [facility] 82 mL/min >60 [facility] 99 mL/min >60 [facility] 17.4 RATIO 10-20 [facility] 30.0 mmol/L 21.0-32.0 [facility] 4.72 uIU/mL 0.358-3.74 [facility] 656 pg/mL 211-911 [facility] Platelets bldOrdered By: Dr. Anderson on 05-11-2022 Platelets (Bld) [#/Vol] 398 10*3/uL 150-450 [facility] Serum or plasma calcium moriah urement (mass/volume)Ordered By: Dr. Anderson on 05-11-2022 Calcium [Mass/Vol] 9.1 mg/dL 8.5-10.1 [facility] Serum or plasma cholesterol in HDL measurement (mass/volume)Ordered By: Dr. Anderson on 05-11-2022 Cholesterol in HDL [Mass/Vol] 49 mg/dL >40 [facility] Comment on above: The drugs N-Acetylcy steine and Metamizole may falsely depress this assay. Reference Range HDL <40 mg/dL Low HDL Cholesterol HDL >or= 60 mg/dL High HDL Cholesterol Serum or plasma cholesterol in VLDL measurement (mass/volume)Ordered By: Dr. Anderson on 05-11-2022 Cholesterol in VLDL [Mass/Vol] 41 mg/dL 5-40 [facility] Serum or plasma creatinine m easurement (mass/volume)Ordered By: Dr. Anderson on 05-11-2022 Creatinine [Mass/Vol] 0.74 mg/dL 0.55-1.02 [facility] Comment on above: The validity of the calculated GFR & GFRAA in patients over 70 years has not been determined. Clinical correlation is essential. Serum or plasma low density lipoprotein (LDL) cholesterol measurement (mass/volume)Ordered By: Dr. Anderson on 05-11-2022 Cholesterol in LDL [Mass/Vol] 81 mg/dL 0-130 [facility] Serum or plasma urea nitroge n measurement (mass/volume)Ordered By: Dr. Anderson on 05-11-2022 Urea nitrogen [Mass/Vol] 13 mg/dL 7-18 [facility] Thin prep Papanicolaou smear with manual screeningOrdered By: Dr. Anderson on 05-11-2022 Thin prep Papanicolaou smear with manual screening 5 5-15 [facility] Whole blood hemoglobin A1c/t otal hemoglobin ratio (mass fraction)Ordered By: Dr. Anderson on 05-11-2022 HbA1c (Bld) [Mass fraction] 5.0 % 3.8-5.6 [facility] Comment on above: Normal < 5.7 % Predi abetic 5.7 - 6.4 % Diabetic >or= 6.5 % Please note range changes. Absolute lymphocyte countOrd ered By: Dr. Anderson on 05-05-2022 Lymphocytes Auto (Unsp spec) [#/Vol] 2.51 10*3/uL 0.83-4.51 [facility] Basophil percentageOrdered B y: Dr. Anderson on 05-05-2022 Basophils/100 WBC (Bld) 0.6 % 0-1 [facility] Chloride [Moles/Vol] 107 mmol/L 98-107 [facility] Eosinophils/100 WBC (Bld) 4.6 % 0-5 [facility] Glucose [Mass/Vol] 86 mg/dL 74-106 [facility] Neutrophils (Bld) [#/Vol] 3.3 10*3/uL 2.0-7.7 [facility] Neutrophils/100 WBC (Bld) 45.9 % 47-70 [facility] Potassium [Moles/Vol] 4.2 mmol/L 3.5-5.1 [facility] Sodium [Moles/Vol] 143 mmol/L 136-145 [facility] WBC (Bld) [#/Vol] 7.2 10*3/uL 4.4-11.0 [facility] Blood erythrocytes count (nu mber/volume)Ordered By: Dr. Anderson on 05-05-2022 RBC (Bld) [#/Vol] 3.73 10*6/uL 4.2-5.4 [facility] Blood hemoglobin measurement (mass/volume)Ordered By: Dr. Anderson on 05-05-2022 Hemoglobin (Bld) [Mass/Vol] 11.7 g/dL 12.0-15.0 [facility] Blood lymphocytes/100 leukoc ytesOrdered By: Dr. Anderson on 05-05-2022 Lymphocytes/100 WBC (Bld) 35.0 % 19-41 [facility] Blood monocytes/100 leukocyt esOrdered By: Dr. Anderson on 05-05-2022 Monocytes/100 WBC (Bld) 13.8 % 0-10 [facility] Blood platelet mean volumeOr dered By: Dr. Anderson on 05-05-2022 Platelet mean volume (Bld) [Entitic vol] 11.1 fL 6.2-12.0 [facility] Determination of erythrocyte mean corpuscular volume (MCV)Ordered By: Dr. Anderson on 05-05-2022 MCV (RBC) [Entitic vol] 101.1 fL 81-99 [facility] Hematocrit Auto (Bld) [Volum e fraction]Ordered By: Dr. Anderson on 05-05-2022 Hematocrit (Bld) [Volume fraction] 37.7 % 37-47 [facility] - Chemistry and C hemistry - challengeOrdered By: Dr. Anderson on 05-05-2022 CO2 [Moles/Vol] 31.0 mmol/L 21.0-32.0 [facility] Urea nitrogen/Creatinine [Mass ratio] 12.7 mg/mg 10-20 [facility] - Hematology and Cell countsOrdered By: Dr. Anderson on 05-05-2022 Erythrocyte distribution width (RBC) [Entitic vol] 53.1 fL 35.1-43.9 [facility] Erythrocyte distribution width (RBC) [Ratio] 14.3 % 11.6-14.6 [facility] Immature granulocytes/100 WBC (Bld) 0.100 % 0.0-0.9 [facility] Comment on above: IG% - Immature Granu locytes (promyelocytes, myelocytes and metamyelocytes) > 1% indicates that a LEFT SHIFT is Present. MCH (RBC) [Entitic mass] 31.4 pg 27.0-32.0 [facility] Nucleated RBC/100 WBC (Bld) [Ratio] 0 % 0-5 [facility] MCHC Auto (RBC) [Mass/Vol]Or dered By: Dr. Anderson on 05-05-2022 MCHC (RBC) [Mass/Vol] 31.0 g/dL 32-36 [facility] No Panel InformationOrdered By: Dr. Anderson on 05-05-2022 Estimated GFR (MDRD) Amer 93 mL/min >60 [facility] Comment on above: GFR Calc Estimated GFR (MDRD) Non-Af Amer 76 mL/min >60 [facility] Comment on above: Non- GFR Calc Platelets bldOrdered By: Dr. Anderson on 05-05-2022 Platelets (Bld) [#/Vol] 275 10*3/uL 150-450 [facility] Serum or plasma calcium moriah urement (mass/volume)Ordered By: Dr. Anderson on 05-05-2022 Calcium [Mass/Vol] 9.0 mg/dL 8.5-10.1 [facility] Serum or plasma creatinine m easurement (mass/volume)Ordered By: Dr. Anderson on 05-05-2022 Creatinine [Mass/Vol] 0.79 mg/dL 0.55-1.02 [facility] Comment on above: The validity of the calculated GFR & GFRAA in patients over 70 years has not been determined. Clinical correlation is essential. Serum or plasma urea nitroge n measurement (mass/volume)Ordered By: Dr. Anderson on 05-05-2022 Urea nitrogen [Mass/Vol] 10 mg/dL 7-18 [facility] Thin prep Papanicolaou smear with manual screeningOrdered By: Dr. Anderson on 05-05-2022 Thin prep Papanicolaou smear with manual screening 5 - [facility] CBC With Platelet and Differ entialon 05-04-2022 Abs Imm Granulocytes 0.03 E9/L Normal [facility] Absolute Basophils 0.05 E9/L Normal 0.00-0.20 [facility] Absolute Eosinophils 0.25 E9/L Normal 0.05-0.50 [facility] Absolute Lymphocytes 1.97 E9/L Normal 1.50-4.00 [facility] Absolute Monocytes 0.95 E9/L Normal 0.10-0.95 [facility] Absolute Neutrophils 3.60 E9/L Normal 1.80-7.30 [facility] Basophils/100 WBC (Bld) 0.7 % Normal 0.0-2.0 [facility] Eosinophils/100 WBC (Bld) 3.6 % Normal 0.0-6.0 [facility] Hematocrit (Bld) [Volume fraction] 33.6 % Low 34.0-48.0 [facility] Hemoglobin (Bld) [Mass/Vol] 10.5 g/dL Low 11.5-15.5 [facility] Imm Granulocytes 0.4 % Normal 0.0-5.0 [facility] Lymphocytes/100 WBC (Bld) 28.8 % Normal 20.0-42.0 [facility] MCH (RBC) [Entitic mass] 31.6 pg Normal 26.0-35.0 [facility] MCHC 31.3 % Low 32.0-34.5 [facility] MCV (RBC) [Entitic vol] 101.2 fL High 80.0-99.9 [facility] Monocytes/100 WBC (Bld) 13.9 % High 2.0-12.0 [facility] Neutrophils/100 WBC (Bld) 52.6 % Normal 43.0-80.0 [facility] Platelet Count 231 E9/L Normal 130-450 [facility] Platelet mean volume (Bld) [Entitic vol] 10.8 fL Normal 7.0-12.0 [facility] RBC 3.32 E12/L Low 3.50-5.50 [facility] RDW 14.4 fL Normal 11.5-15.0 [facility] WBC 6.9 E9/L Normal 4.5-11.5 [facility] Comprehensive Metabolic Pane jamal 05-04-2022 Albumin [Mass/Vol] 3.0 g/dL Low 3.5-5.2 [facility] ALP [Catalytic activity/Vol] 72 U/L Normal 35-104 [facility] ALT [Catalytic activity/Vol] 5 U/L Normal 0-32 [facility] Anion gap [Moles/Vol] 7 mmol/L Normal 7-16 [facility] AST [Catalytic activity/Vol] 18 U/L Normal 0-31 [facility] Bilirubin [Mass/Vol] 0.2 mg/dL Normal 0.0-1.2 [facility] Calcium [Mass/Vol] 8.6 mg/dL Normal 8.6-10.2 [facility] Chloride [Moles/Vol] 106 mmol/L Normal 98-107 [facility] CO2 [Moles/Vol] 30 mmol/L High 22-29 [facility] Creatinine [Mass/Vol] 0.7 mg/dL Normal 0.5-1.0 [facility] GFR Calculated >60 Normal >=60 [facility] Comment on above: Result Comment: Mariel atric calculator link https://www.kidney.org/professionals/kdoqi/gfr_calculatorped Effective Dec 21, 2021 [...] secretion. Glucose [Mass/Vol] 74 mg/dL Normal 74-99 [facility] Potassium [Moles/Vol] 4.6 mmol/L Normal 3.5-5.0 [facility] Protein [Mass/Vol] 5.8 g/dL Low 6.4-8.3 [facility] Sodium [Moles/Vol] 143 mmol/L Normal 132-146 [facility] Urea nitrogen [Mass/Vol] 9 mg/dL Normal 6-23 [facility] Valproic Acid /Depakene Leve jamal 05-04-2022 Valproic Acid 35 mcg/mL Low 50-100 [facility] CBC With Platelet and Differ entialon 04-27-2022 Abs Imm Granulocytes 0.01 E9/L Normal [facility] Absolute Basophils 0.06 E9/L Normal 0.00-0.20 [facility] Absolute Eosinophils 0.24 E9/L Normal 0.05-0.50 [facility] Absolute Lymphocytes 1.97 E9/L Normal 1.50-4.00 [facility] Absolute Monocytes 0.68 E9/L Normal 0.10-0.95 [facility] Absolute Neutrophils 2.07 E9/L Normal 1.80-7.30 [facility] Basophils/100 WBC (Bld) 1.2 % Normal 0.0-2.0 [facility] Eosinophils/100 WBC (Bld) 4.8 % Normal 0.0-6.0 [facility] Hematocrit (Bld) [Volume fraction] 35.7 % Normal 34.0-48.0 [facility] Hemoglobin (Bld) [Mass/Vol] 11.5 g/dL Normal 11.5-15.5 [facility] Imm Granulocytes 0.2 % Normal 0.0-5.0 [facility] Lymphocytes/100 WBC (Bld) 39.2 % Normal 20.0-42.0 [facility] MCH (RBC) [Entitic mass] 31.1 pg Normal 26.0-35.0 [facility] MCHC 32.2 % Normal 32.0-34.5 [facility] MCV (RBC) [Entitic vol] 96.5 fL Normal 80.0-99.9 [facility] Monocytes/100 WBC (Bld) 13.5 % High 2.0-12.0 [facility] Neutrophils/100 WBC (Bld) 41.1 % Low 43.0-80.0 [facility] Platelet Count 230 E9/L Normal 130-450 [facility] Platelet mean volume (Bld) [Entitic vol] 11.8 fL Normal 7.0-12.0 [facility] RBC 3.70 E12/L Normal 3.50-5.50 [facility] RDW 14.2 fL Normal 11.5-15.0 [facility] WBC 5.0 E9/L Normal 4.5-11.5 [facility] Comprehensive Metabolic Pane jamal 04-27-2022 Albumin [Mass/Vol] 3.5 g/dL Normal 3.5-5.2 [facility] ALP [Catalytic activity/Vol] 81 U/L Normal 35-104 [facility] ALT [Catalytic activity/Vol] 10 U/L Normal 0-32 [facility] Anion gap [Moles/Vol] 8 mmol/L Normal 7-16 [facility] AST [Catalytic activity/Vol] 27 U/L Normal 0-31 [facility] Bilirubin [Mass/Vol] mg/dL Normal 0.0-1.2 [facility] Calcium [Mass/Vol] 8.8 mg/dL Normal 8.6-10.2 [facility] Chloride [Moles/Vol] 104 mmol/L Normal 98-107 [facility] CO2 [Moles/Vol] 31 mmol/L High 22-29 [facility] Creatinine [Mass/Vol] 0.7 mg/dL Normal 0.5-1.0 [facility] GFR Calculated >60 Normal >=60 [facility] Comment on above: Result Comment: Mariel atric calculator link https://www.kidney.org/professionals/kdoqi/gfr_calculatorped Effective Dec 21, 2021 [...] secretion. Glucose [Mass/Vol] 81 mg/dL Normal 74-99 [facility] Potassium [Moles/Vol] 4.2 mmol/L Normal 3.5-5.0 [facility] Protein [Mass/Vol] 6.3 g/dL Low 6.4-8.3 [facility] Sodium [Moles/Vol] 143 mmol/L Normal 132-146 [facility] Urea nitrogen [Mass/Vol] 14 mg/dL Normal 6-23 [facility] Basophil percentageOrdered B y: Dr. Anderson on 04-19-2022 Chloride [Moles/Vol] 106 mmol/L 98-107 [facility] Glucose [Mass/Vol] 80 mg/dL 74-106 [facility] Potassium [Moles/Vol] 4.4 mmol/L 3.5-5.1 [facility] Sodium [Moles/Vol] 142 mmol/L 136-145 [facility] WBC (Bld) [#/Vol] 5.9 10*3/uL 4.4-11.0 [facility] Blood erythrocytes count (nu mber/volume)Ordered By: Dr. Anderson on 04-19-2022 RBC (Bld) [#/Vol] 3.41 10*6/uL 4.2-5.4 [facility] Blood hemoglobin measurement (mass/volume)Ordered By: Dr. Anderson on 04-19-2022 Hemoglobin (Bld) [Mass/Vol] 10.6 g/dL 12.0-15.0 [facility] Blood platelet mean volumeOr dered By: Dr. Anderson on 04-19-2022 Platelet mean volume (Bld) [Entitic vol] 10.1 fL 6.2-12.0 [facility] Determination of erythrocyte mean corpuscular volume (MCV)Ordered By: Dr. Anderson on 04-19-2022 MCV (RBC) [Entitic vol] 98.5 fL 81-99 [facility] Hematocrit Auto (Bld) [Volum e fraction]Ordered By: Dr. Anderson on 04-19-2022 Hematocrit (Bld) [Volume fraction] 33.6 % 37-47 [facility] - Chemistry and C hemistry - challengeOrdered By: Dr. Anderson on 04-19-2022 CO2 [Moles/Vol] 30.0 mmol/L 21.0-32.0 [facility] Urea nitrogen/Creatinine [Mass ratio] 32.4 mg/mg 10-20 [facility] - Hematology and Cell countsOrdered By: Dr. Anderson on 04-19-2022 Erythrocyte distribution width (RBC) [Entitic vol] 48.2 fL 35.1-43.9 [facility] Erythrocyte distribution width (RBC) [Ratio] 13.3 % 11.6-14.6 [facility] MCH (RBC) [Entitic mass] 31.1 pg 27.0-32.0 [facility] MCHC Auto (RBC) [Mass/Vol]Or dered By: Dr. Anderson on 04-19-2022 MCHC (RBC) [Mass/Vol] 31.5 g/dL 32-36 [facility] No Panel InformationOrdered By: Dr. Anderson on 04-19-2022 Estimated GFR (MDRD) Amer 100 mL/min >60 [facility] Comment on above: GFR Calc Estimated GFR (MDRD) Non-Af Amer 82 mL/min >60 [facility] Comment on above: Non- GFR Calc Platelets bldOrdered By: Dr. Anderson on 04-19-2022 Platelets (Bld) [#/Vol] 347 10*3/uL 150-450 [facility] Serum or plasma C reactive p rotein measurement (mass/volume)Ordered By: Dr. Anderson on 04-19-2022 CRP [Mass/Vol] 16.00 mg/L 0.0-3.0 [facility] Comment on above: C-Reactive Protein ( CRP) provides useful information for thediagnosis, therapy and monitoring of inflammatory processesand associated diseases. For the evaluation of Relative Riskfor Cardiovascular Disease, a High Sensitivity CRP (HSCRP)should be ordered. Serum or plasma calcium moriah urement (mass/volume)Ordered By: Dr. Anderson on 04-19-2022 Calcium [Mass/Vol] 8.5 mg/dL 8.5-10.1 [facility] Serum or plasma creatinine m easurement (mass/volume)Ordered By: Dr. Anderson on 04-19-2022 Creatinine [Mass/Vol] 0.74 mg/dL 0.55-1.02 [facility] Comment on above: The validity of the calculated GFR & GFRAA in patients over 70 years has not been determined. Clinical correlation is essential. Serum or plasma urea nitroge n measurement (mass/volume)Ordered By: Dr. Anderson on 04-19-2022 Urea nitrogen [Mass/Vol] 24 mg/dL 7-18 [facility] Thin prep Papanicolaou smear with manual screeningOrdered By: Dr. Anderson on 04-19-2022 Thin prep Papanicolaou smear with manual screening 6 5-15 [facility] Culture, urineOrdered By: Dr Alicia Ocampo on 04-18-2022 Bacteria identified Cx Nom (U) Culture exhibits no growth. [facility] Absolute lymphocyte countOrd ered By: Dr. Ocampo on 04-15-2022 Lymphocytes Auto (Unsp spec) [#/Vol] 2.54 10*3/uL 0.83-4.51 [facility] Basophil percentageOrdered B y: Dr. Ocampo on 04-15-2022 Basophil percentage 0 SEEN /hpf 0-5 [facility] Basophils/100 WBC (Bld) 0.9 % 0-1 [facility] Bilirubin [Mass/Vol] 0.20 mg/dL 0.20-1.00 [facility] Comment on above: For patients on eltr ombopag therapy, use of Dimension [place] TBIL is not recommended. Chloride [Moles/Vol] 102 mmol/L 98-107 [facility] Eosinophils/100 WBC (Bld) 4.3 % 0-5 [facility] Glucose [Mass/Vol] 100 mg/dL 74-106 [facility] Comment on above: Fasting Glucose resu lt from 100 to 125 mg/dL suggests IMPAIRED HOMEOSTASIS per A.D.A. criteria. Neutrophils (Bld) [#/Vol] 3.9 10*3/uL 2.0-7.7 [facility] Neutrophils/100 WBC (Bld) 50.0 % 47-70 [facility] Potassium [Moles/Vol] 4.5 mmol/L 3.5-5.1 [facility] Protein [Mass/Vol] 7.1 g/dL 6.4-8.2 [facility] Sodium [Moles/Vol] 140 mmol/L 136-145 [facility] WBC (Bld) [#/Vol] 7.8 10*3/uL 4.4-11.0 [facility] Bilirubin Test strip Ql (U)O rdered By: Dr. Ocampo on 04-15-2022 Bilirubin Ql (U) Negative Negative [facility] Blood erythrocytes count (nu mber/volume)Ordered By: Dr. Ocampo on 04-15-2022 RBC (Bld) [#/Vol] 3.57 10*6/uL 4.2-5.4 [facility] Blood hemoglobin measurement (mass/volume)Ordered By: Dr. Ocampo on 04-15-2022 Hemoglobin (Bld) [Mass/Vol] 11.0 g/dL 12.0-15.0 [facility] Blood lymphocytes/100 leukoc ytesOrdered By: Dr. Ocampo on 04-15-2022 Lymphocytes/100 WBC (Bld) 32.4 % 19-41 [facility] Blood monocytes/100 leukocyt esOrdered By: Dr. Ocampo on 04-15-2022 Monocytes/100 WBC (Bld) 12.1 % 0-10 [facility] Blood platelet mean volumeOr dered By: Dr. Ocampo on 04-15-2022 Platelet mean volume (Bld) [Entitic vol] 9.8 fL 6.2-12.0 [facility] Determination of erythrocyte mean corpuscular volume (MCV)Ordered By: Dr. Ocampo on 04-15-2022 MCV (RBC) [Entitic vol] 97.2 fL 81-99 [facility] Hematocrit Auto (Bld) [Volum e fraction]Ordered By: Dr. Ocampo on 04-15-2022 Hematocrit (Bld) [Volume fraction] 34.7 % 37-47 [facility] INR in Blood by Coagulation assayOrdered By: Dr. Ocampo on 04-15-2022 INR Coag (Bld) [Relative time] 1.1 {INR} [facility] Ketones Test strip Ql (U)Ord ered By: Dr. Ocampo on 04-15-2022 Ketones Ql (U) Negative Negative [facility] - Chemistry and C hemistry - challengeOrdered By: Dr. Ocampo on 04-15-2022 ALP [Catalytic activity/Vol] 92 U/L 45-117 [facility] ALT [Catalytic activity/Vol] 15 U/L 13-56 [facility] CO2 [Moles/Vol] 32.0 mmol/L 21.0-32.0 [facility] Globulin (S) [Mass/Vol] 3.6 g/dL 2.2-4.2 [facility] Urea nitrogen/Creatinine [Mass ratio] 28.1 mg/mg 10-20 [facility] - CoagulationOrde red By: Dr. Ocampo on 04-15-2022 aPTT Coag (Bld) [Time] 29.1 s 24.1-36.2 [facility] PT Coag (PPP) [Time] 13.5 s 11.7-14.9 [facility] - Hematology and Cell countsOrdered By: Dr. Ocampo on 04-15-2022 Erythrocyte distribution width (RBC) [Entitic vol] 44.9 fL 35.1-43.9 [facility] Erythrocyte distribution width (RBC) [Ratio] 12.8 % 11.6-14.6 [facility] Immature granulocytes/100 WBC (Bld) 0.300 % 0.0-0.9 [facility] Comment on above: IG% - Immature Granu locytes (promyelocytes, myelocytes and metamyelocytes) > 1% indicates that a LEFT SHIFT is Present. MCH (RBC) [Entitic mass] 30.8 pg 27.0-32.0 [facility] Nucleated RBC/100 [facility] (Bld) [[facility]] 0 [facility] [[facility]/Vol]Or dered By: Dr. Ocampo on 04-15-2022 MCHC (RBC) [Mass/Vol] 31.7 g/dL 32-36 [facility] Mucus LM Ql (Urine sed)Order ed By: Dr. Ocampo on 04-15-2022 Mucus Ql (Urine sed) 0 SEEN /hpf [facility] Nitrite Test strip Ql (U)Ord ered By: Dr. Ocampo on 04-15-2022 Nitrite Ql (U) Negative Negative [facility] No Panel InformationOrdered By: Dr. Ocampo on 04-15-2022 Estimated Creatinine Clearance Calc 44.24 ml/min [facility] Estimated GFR (MDRD) Amer 85 mL/min >60 [facility] Comment on above: GFR Calc Estimated GFR (MDRD) Non-Af Amer 70 mL/min >60 [facility] Comment on above: Non- GFR Calc Platelets bldOrdered By: Dr. Ocampo on 04-15-2022 Platelets (Bld) [#/Vol] 390 10*3/uL 150-450 [facility] Protein Test strip Ql (U)Ord ered By: Dr. Ocampo on 04-15-2022 Protein Ql (U) 15 mg/dl Negative [facility] Serum or plasma albumin moriah urement (mass/volume)Ordered By: Dr. Ocampo on 04-15-2022 Albumin [Mass/Vol] 3.5 g/dL 3.2-5.0 [facility] Serum or plasma albumin/glob ulin mass ratioOrdered By: Dr. Ocampo on 04-15-2022 Albumin/Globulin [Mass ratio] 1.0 {ratio} 0.9-2.4 [facility] Serum or plasma calcium moriah urement (mass/volume)Ordered By: Dr. Ocampo on 04-15-2022 Calcium [Mass/Vol] 9.0 mg/dL 8.5-10.1 [facility] Serum or plasma creatinine m easurement (mass/volume)Ordered By: Dr. Ocampo on 04-15-2022 Creatinine [Mass/Vol] 0.85 mg/dL 0.55-1.02 [facility] Comment on above: The validity of the calculated GFR & GFRAA in patients over 70 years has not been determined. Clinical correlation is essential. Serum or plasma urea nitroge n measurement (mass/volume)Ordered By: Dr. Ocampo on 04-15-2022 Urea nitrogen [Mass/Vol] 24 mg/dL 7-18 [facility] Squamous epithelial cells de tection in urine sediment by light microscopyOrdered By: Dr. Ocampo on 04-15-2022 Epithelial cells.squamous LM Ql (Urine sed) 0 SEEN /hpf 5-10 [facility] Thin prep Papanicolaou smear with manual screeningOrdered By: Dr. Ocampo on 04-15-2022 Thin prep Papanicolaou smear with manual screening 18 U/L 15-37 [facility] Thin prep Papanicolaou smear with manual screening 6 5-15 [facility] Urine blood detectionOrdered By: Dr. Ocampo on 04-15-2022 RBC Ql (U) Negative Negative [facility] RBC Ql (U) 0 SEEN /hpf 0-5 [facility] Urine clarityOrdered By: Dr. Ocampo on 04-15-2022 Clarity (U) Clear Clear [facility] Urine color determinationOrd ered By: Dr. Ocampo on 04-15-2022 Color (U) Yellow Yellow [facility] Urine glucose detectionOrder ed By: Dr. Ocampo on 04-15-2022 Glucose Ql (U) Negative Normal [facility] Urine leukocyte esterase det ection by dipstickOrdered By: Dr. Ocampo on 04-15-2022 Leukocyte esterase Test strip Ql (U) Negative Negative [facility] Urine pHOrdered By: Dr. Ocampo o n 04-15-2022 pH (U) 5.0 [pH] 5.0 - 8.0 [facility] Urine sediment bacteria coun t by microscopy (number/high power field)Ordered By: Dr. Ocampo on 04-15-2022 Bacteria LM.HPF (Urine sed) [#/Area] 0 /[HPF] None Seen [facility] Urine specific gravity measu rementOrdered By: Dr. Ocampo on 04-15-2022 Specific gravity (U) [Rel density] 1.020 1.002-1.030 [facility] Urobilinogen Auto test strip Ql (U)Ordered By: Dr. Ocampo on 04-15-2022 Urobilinogen Ql (U) Normal mg/dl Normal [facility] Culture, urineOrdered By: Dr Alicia Anderson on 03-31-2022 Bacteria identified Cx Nom (U) Enterococcus faecalis [facility] No Panel InformationOrdered By: Dr. Anderson on 03-30-2022 Thyroid Stimulating Hormone (TSH) 3.00 uIU/mL 0.358-3.74 [facility] Absolute lymphocyte countOrd ered By: Dr. Anderson on 03-29-2022 Lymphocytes Auto (Unsp spec) [#/Vol] 2.37 10*3/uL 0.83-4.51 [facility] Basophil percentageOrdered B y: Dr. Anderson on 03-29-2022 Basophils/100 WBC (Bld) 0.9 % 0-1 [facility] Chloride [Moles/Vol] 108 mmol/L 98-107 [facility] Eosinophils/100 WBC (Bld) 6.7 % 0-5 [facility] Glucose [Mass/Vol] 81 mg/dL 74-106 [facility] Neutrophils (Bld) [#/Vol] 2.2 10*3/uL 2.0-7.7 [facility] Neutrophils/100 WBC (Bld) 38.3 % 47-70 [facility] Potassium [Moles/Vol] 3.9 mmol/L 3.5-5.1 [facility] Sodium [Moles/Vol] 144 mmol/L 136-145 [facility] WBC (Bld) [#/Vol] 5.7 10*3/uL 4.4-11.0 [facility] Blood erythrocytes count (nu mber/volume)Ordered By: Dr. Anderson on 03-29-2022 RBC (Bld) [#/Vol] 3.71 10*6/uL 4.2-5.4 [facility] Blood hemoglobin measurement (mass/volume)Ordered By: Dr. Anderson on 03-29-2022 Hemoglobin (Bld) [Mass/Vol] 11.4 g/dL 12.0-15.0 [facility] Blood lymphocytes/100 leukoc ytesOrdered By: Dr. Anderson on 03-29-2022 Lymphocytes/100 WBC (Bld) 41.9 % 19-41 [facility] Blood monocytes/100 leukocyt esOrdered By: Dr. Anderson on 03-29-2022 Monocytes/100 WBC (Bld) 12.0 % 0-10 [facility] Blood platelet mean volumeOr dered By: Dr. Anderson on 03-29-2022 Platelet mean volume (Bld) [Entitic vol] 10.5 fL 6.2-12.0 [facility] Determination of erythrocyte mean corpuscular volume (MCV)Ordered By: Dr. Anderson on 03-29-2022 MCV (RBC) [Entitic vol] 99.7 fL 81-99 [facility] Hematocrit Auto (Bld) [Volum e fraction]Ordered By: Dr. Anderson on 03-29-2022 Hematocrit (Bld) [Volume fraction] 37.0 % 37-47 [facility] - Chemistry and C hemistry - challengeOrdered By: Dr. Anderson on 03-29-2022 CO2 [Moles/Vol] 30.0 mmol/L 21.0-32.0 [facility] Urea nitrogen/Creatinine [Mass ratio] 15.4 mg/mg 10-20 [facility] - Hematology and Cell countsOrdered By: Dr. Anderson on 03-29-2022 Erythrocyte distribution width (RBC) [Entitic vol] 49.0 fL 35.1-43.9 [facility] Erythrocyte distribution width (RBC) [Ratio] 13.4 % 11.6-14.6 [facility] Immature granulocytes/100 WBC (Bld) 0.200 % 0.0-0.9 [facility] Comment on above: IG% - Immature Granu locytes (promyelocytes, myelocytes and metamyelocytes) > 1% indicates that a LEFT SHIFT is Present. MCH (RBC) [Entitic mass] 30.7 pg 27.0-32.0 [facility] Nucleated RBC/100 WBC (Bld) [Ratio] 0 % 0-5 [facility] MCHC Auto (RBC) [Mass/Vol]Or dered By: Dr. Anderson on 03-29-2022 MCHC (RBC) [Mass/Vol] 30.8 g/dL 32-36 [facility] No Panel InformationOrdered By: Dr. Anderson on 03-29-2022 Estimated GFR (MDRD) Amer 104 mL/min >60 [facility] Comment on above: GFR Calc Estimated GFR (MDRD) Non-Af Amer 86 mL/min >60 [facility] Comment on above: Non- GFR Calc Platelets bldOrdered By: Dr. Anderson on 03-29-2022 Platelets (Bld) [#/Vol] 277 10*3/uL 150-450 [facility] Serum or plasma calcium moriah urement (mass/volume)Ordered By: Dr. Anderson on 03-29-2022 Calcium [Mass/Vol] 8.5 mg/dL 8.5-10.1 [facility] Serum or plasma creatinine m easurement (mass/volume)Ordered By: Dr. Anderson on 03-29-2022 Creatinine [Mass/Vol] 0.71 mg/dL 0.55-1.02 [facility] Comment on above: The validity of the calculated GFR & GFRAA in patients over 70 years has not been determined. Clinical correlation is essential. Serum or plasma urea nitroge n measurement (mass/volume)Ordered By: Dr. Anderson on 03-29-2022 Urea nitrogen [Mass/Vol] 11 mg/dL 7-18 [facility] Thin prep Papanicolaou smear with manual screeningOrdered By: Dr. Anderson on 03-29-2022 Thin prep Papanicolaou smear with manual screening 6 5-15 [facility] Bilirubin Test strip Ql (U)O rdered By: Dr. Anderson on 03-28-2022 Bilirubin Ql (U) Negative Negative [facility] Ketones Test strip Ql (U)Ord ered By: Dr. Anderson on 03-28-2022 Ketones Ql (U) Negative Negative [facility] Nitrite Test strip Ql (U)Ord ered By: Dr. Anderson on 03-28-2022 Nitrite Ql (U) Negative Negative [facility] Protein Test strip Ql (U)Ord ered By: Dr. Anderson on 03-28-2022 Protein Ql (U) Negative Negative [facility] Urine blood detectionOrdered By: Dr. Anderson on 03-28-2022 RBC Ql (U) Negative Negative [facility] Urine clarityOrdered By: Dr. Anderson on 03-28-2022 Clarity (U) Sl. Cloudy Clear [facility] Urine color determinationOrd ered By: Dr. Anderson on 03-28-2022 Color (U) Yellow Yellow [facility] Urine glucose detectionOrder ed By: Dr. Anderson on 03-28-2022 Glucose Ql (U) Normal mg/dl Normal [facility] Urine leukocyte esterase det ection by dipstickOrdered By: Dr. Anderson on 03-28-2022 Leukocyte esterase Test strip Ql (U) 25 /ul Negative [facility] Urine pHOrdered By: Dr. Andres owen on 03-28-2022 pH (U) 6.0 [pH] 5.0 - 8.0 [facility] Urine specific gravity measu rementOrdered By: Dr. Anderson on 03-28-2022 Specific gravity (U) [Rel density] 1.010 1.002-1.030 [facility] Urobilinogen Auto test strip Ql (U)Ordered By: Dr. Anderson on 03-28-2022 Urobilinogen Ql (U) Normal mg/dl Normal [facility] Absolute lymphocyte countOrd ered By: Dr. Anderson on 03-11-2022 Lymphocytes Auto (Unsp spec) [#/Vol] 2.38 10*3/uL 0.83-4.51 [facility] Basophil percentageOrdered B y: Dr. Anderson on 03-11-2022 Basophils/100 WBC (Bld) 0.8 % 0-1 [facility] Bilirubin [Mass/Vol] 0.30 mg/dL 0.20-1.00 [facility] Comment on above: For patients on eltr ombopag therapy, use of Dimension [place] TBIL is not recommended. Chloride [Moles/Vol] 107 mmol/L 98-107 [facility] Eosinophils/100 WBC (Bld) 5.4 % 0-5 [facility] Glucose [Mass/Vol] 85 mg/dL 74-106 [facility] Neutrophils (Bld) [#/Vol] 2.7 10*3/uL 2.0-7.7 [facility] Neutrophils/100 WBC (Bld) 44.6 % 47-70 [facility] Potassium [Moles/Vol] 4.1 mmol/L 3.5-5.1 [facility] Protein [Mass/Vol] 5.7 g/dL 6.4-8.2 [facility] Sodium [Moles/Vol] 141 mmol/L 136-145 [facility] WBC (Bld) [#/Vol] 6.1 10*3/uL 4.4-11.0 [facility] Blood erythrocytes count (nu mber/volume)Ordered By: Dr. Anderson on 03-11-2022 RBC (Bld) [#/Vol] 3.72 10*6/uL 4.2-5.4 [facility] Blood hemoglobin measurement (mass/volume)Ordered By: Dr. Anderson on 03-11-2022 Hemoglobin (Bld) [Mass/Vol] 11.3 g/dL 12.0-15.0 [facility] Blood lymphocytes/100 leukoc ytesOrdered By: Dr. Anderson on 03-11-2022 Lymphocytes/100 WBC (Bld) 39.1 % 19-41 [facility] Blood monocytes/100 leukocyt esOrdered By: Dr. Anderson on 03-11-2022 Monocytes/100 WBC (Bld) 9.9 % 0-10 [facility] Blood platelet mean volumeOr dered By: Dr. Anderson on 03-11-2022 Platelet mean volume (Bld) [Entitic vol] 10.6 fL 6.2-12.0 [facility] Determination of erythrocyte mean corpuscular volume (MCV)Ordered By: Dr. Anderson on 03-11-2022 MCV (RBC) [Entitic vol] 99.2 fL 81-99 [facility] Hematocrit Auto (Bld) [Volum e fraction]Ordered By: Dr. Anderson on 03-11-2022 Hematocrit (Bld) [Volume fraction] 36.9 % 37-47 [facility] - Chemistry and C hemistry - challengeOrdered By: Dr. Anderson on 03-11-2022 ALP [Catalytic activity/Vol] 90 U/L 45-117 [facility] ALT [Catalytic activity/Vol] 14 U/L 13-56 [facility] CO2 [Moles/Vol] 32.0 mmol/L 21.0-32.0 [facility] Cobalamin (Vitamin B12) [Mass/Vol] 1100 pg/mL 211-911 [facility] Globulin (S) [Mass/Vol] 2.9 g/dL 2.2-4.2 [facility] Urea nitrogen/Creatinine [Mass ratio] 13.6 mg/mg 10-20 [facility] - Hematology and Cell countsOrdered By: Dr. Anderson on 03-11-2022 Erythrocyte distribution width (RBC) [Entitic vol] 46.8 fL 35.1-43.9 [facility] Erythrocyte distribution width (RBC) [Ratio] 12.9 % 11.6-14.6 [facility] Immature granulocytes/100 WBC (Bld) 0.200 % 0.0-0.9 [facility] Comment on above: IG% - Immature Granu locytes (promyelocytes, myelocytes and metamyelocytes) > 1% indicates that a LEFT SHIFT is Present. MCH (RBC) [Entitic mass] 30.4 pg 27.0-32.0 [facility] Nucleated RBC/100 WBC (Bld) [Ratio] 0 % 0-5 [facility] MCHC Auto (RBC) [Mass/Vol]Or dered By: Dr. Anderson on 03-11-2022 MCHC (RBC) [Mass/Vol] 30.6 g/dL 32-36 [facility] No Panel InformationOrdered By: Dr. Anderson on 03-11-2022 Estimated GFR (MDRD) Amer 113 mL/min >60 [facility] Comment on above: GFR Calc Estimated GFR (MDRD) Non-Af Amer 93 mL/min >60 [facility] Comment on above: Non- GFR Calc Thyroid Stimulating Hormone (TSH) 3.25 uIU/mL 0.358-3.74 [facility] Platelets bldOrdered By: Dr. Anderson on 03-11-2022 Platelets (Bld) [#/Vol] 244 10*3/uL 150-450 [facility] Serum or plasma albumin moriah urement (mass/volume)Ordered By: Dr. Anderson on 03-11-2022 Albumin [Mass/Vol] 2.8 g/dL 3.2-5.0 [facility] Serum or plasma albumin/glob ulin mass ratioOrdered By: Dr. Anderson on 03-11-2022 Albumin/Globulin [Mass ratio] 1.0 {ratio} 0.9-2.4 [facility] Serum or plasma calcium moriah urement (mass/volume)Ordered By: Dr. Anderson on 03-11-2022 Calcium [Mass/Vol] 8.4 mg/dL 8.5-10.1 [facility] Serum or plasma creatinine m easurement (mass/volume)Ordered By: Dr. Anderson on 03-11-2022 Creatinine [Mass/Vol] 0.66 mg/dL 0.55-1.02 [facility] Comment on above: The validity of the calculated GFR & GFRAA in patients over 70 years has not been determined. Clinical correlation is essential. Serum or plasma lamotrigine measurement (mass/volume)Ordered By: Dr. Anderson on 03-11-2022 lamoTRIgine [Mass/Vol] 3.0 ug/mL 2.0-20.0 [facility] Comment on above: Detection Limit = 1. 0Performed at: [facility] [id number] Director: Marino Mckeon MD, Phone: [phone] Serum or plasma urea nitroge n measurement (mass/volume)Ordered By: Dr. Anderson on 03-11-2022 Urea nitrogen [Mass/Vol] 9 mg/dL 7-18 [facility] Thin prep Papanicolaou smear with manual screeningOrdered By: Dr. Anderson on 03-11-2022 Thin prep Papanicolaou smear with manual screening 13 U/L 15-37 [facility] Thin prep Papanicolaou smear with manual screening 2 5-15 [facility] Thin prep Papanicolaou smear with manual screeningOrdered By: Dr. Anderson on 03-07-2022 Thin prep Papanicolaou smear with manual screening Normal genital pierre isolated [facility] Gram stain for investigation of transfusion reactionOrdered By: Dr. Anderson on 03-06-2022 Microscopic observation Gram stain Nom (Unsp spec) [facility] Absolute lymphocyte countOrd ered By: Dr. Anderson on 02-16-2022 Lymphocytes Auto (Unsp spec) [#/Vol] 2.46 10*3/uL 0.83-4.51 [facility] Basophil percentageOrdered B y: Dr. Anderson on 02-16-2022 Basophils/100 WBC (Bld) 0.8 % 0-1 [facility] Eosinophils/100 WBC (Bld) 4.7 % 0-5 [facility] Neutrophils (Bld) [#/Vol] 1.8 10*3/uL 2.0-7.7 [facility] Neutrophils/100 WBC (Bld) 35.6 % 47-70 [facility] WBC (Bld) [#/Vol] 5.1 10*3/uL 4.4-11.0 [facility] Blood erythrocytes count (nu mber/volume)Ordered By: Dr. Anderson on 02-16-2022 RBC (Bld) [#/Vol] 3.71 10*6/uL 4.2-5.4 [facility] Blood hemoglobin measurement (mass/volume)Ordered By: Dr. Anderson on 02-16-2022 Hemoglobin (Bld) [Mass/Vol] 11.4 g/dL 12.0-15.0 [facility] Blood lymphocytes/100 leukoc ytesOrdered By: Dr. Anderson on 02-16-2022 Lymphocytes/100 WBC (Bld) 48.6 % 19-41 [facility] Blood monocytes/100 leukocyt esOrdered By: Dr. Anderson on 02-16-2022 Monocytes/100 WBC (Bld) 10.1 % 0-10 [facility] Blood platelet mean volumeOr dered By: Dr. Anderson on 02-16-2022 Platelet mean volume (Bld) [Entitic vol] 10.7 fL 6.2-12.0 [facility] Determination of erythrocyte mean corpuscular volume (MCV)Ordered By: Dr. Anderson on 02-16-2022 MCV (RBC) [Entitic vol] 99.7 fL 81-99 [facility] Hematocrit Auto (Bld) [Volum e fraction]Ordered By: Dr. Anderson on 02-16-2022 Hematocrit (Bld) [Volume fraction] 37.0 % 37-47 [facility] - Chemistry and C hemistry - challengeOrdered By: Dr. Anderson on 02-16-2022 Magnesium [Mass/Vol] 2.0 mg/dL 1.6-2.6 [facility] - Hematology and Cell countsOrdered By: Dr. Anderson on 02-16-2022 Erythrocyte distribution width (RBC) [Entitic vol] 46.5 fL 35.1-43.9 [facility] Erythrocyte distribution width (RBC) [Ratio] 12.8 % 11.6-14.6 [facility] Immature granulocytes/100 WBC (Bld) 0.200 % 0.0-0.9 [facility] Comment on above: IG% - Immature Granu locytes (promyelocytes, myelocytes and metamyelocytes) > 1% indicates that a LEFT SHIFT is Present. MCH (RBC) [Entitic mass] 30.7 pg 27.0-32.0 [facility] Nucleated RBC/100 WBC (Bld) [Ratio] 0 % 0-5 [facility] MCHC Auto (RBC) [Mass/Vol]Or dered By: Dr. Anderson on 02-16-2022 MCHC (RBC) [Mass/Vol] 30.8 g/dL 32-36 [facility] No Panel InformationOrdered By: Dr. Anderson on 02-16-2022 Thyroid Stimulating Hormone (TSH) 4.61 uIU/mL 0.358-3.74 [facility] Vitamin B12 Level > 2000 pg/mL 211-911 [facility] Vitamin D 25-Hydroxy 54.2 ng/mL [facility] Comment on above: Vitamin D 25(OH) Sta tus Range Deficiency <20 ng/mL (50nmol/L) Insufficiency 20 - 30 ng/mL (50 - 75 nmol/L) Sufficiency 30 - 100 ng/mL (75 - 250 nmol/L) Toxicity >100 ng/mL (>250 nmol/L) Platelets bldOrdered By: Dr. Anderson on 02-16-2022 Platelets (Bld) [#/Vol] 242 10*3/uL 150-450 [facility] Absolute lymphocyte countOrd ered By: Dr. Malave on 02-14-2022 Lymphocytes Auto (Unsp spec) [#/Vol] 2.42 10*3/uL 0.83-4.51 [facility] Basophil percentageOrdered B y: Dr. Malave on 02-14-2022 Basophil percentage 0 SEEN /hpf 0-5 [facility] Basophils/100 WBC (Bld) 0.7 % 0-1 [facility] Chloride [Moles/Vol] 112 mmol/L 98-107 [facility] Eosinophils/100 WBC (Bld) 5.3 % 0-5 [facility] Glucose [Mass/Vol] 87 mg/dL 74-106 [facility] Neutrophils (Bld) [#/Vol] 2.2 10*3/uL 2.0-7.7 [facility] Neutrophils/100 WBC (Bld) 39.4 % 47-70 [facility] Potassium [Moles/Vol] 3.7 mmol/L 3.5-5.1 [facility] Sodium [Moles/Vol] 143 mmol/L 136-145 [facility] WBC (Bld) [#/Vol] 5.5 10*3/uL 4.4-11.0 [facility] Bilirubin Test strip Ql (U)O rdered By: Dr. Malave on 02-14-2022 Bilirubin Ql (U) Negative Negative [facility] Blood erythrocytes count (nu mber/volume)Ordered By: Dr. Malave on 02-14-2022 RBC (Bld) [#/Vol] 3.46 10*6/uL 4.2-5.4 [facility] Blood hemoglobin measurement (mass/volume)Ordered By: Dr. Malave on 02-14-2022 Hemoglobin (Bld) [Mass/Vol] 10.5 g/dL 12.0-15.0 [facility] Blood lymphocytes/100 leukoc ytesOrdered By: Dr. Malave on 02-14-2022 Lymphocytes/100 WBC (Bld) 44.2 % 19-41 [facility] Blood monocytes/100 leukocyt esOrdered By: Dr. Malave on 02-14-2022 Monocytes/100 WBC (Bld) 10.2 % 0-10 [facility] Blood platelet mean volumeOr dered By: Dr. Malave on 02-14-2022 Platelet mean volume (Bld) [Entitic vol] 10.8 fL 6.2-12.0 [facility] Determination of erythrocyte mean corpuscular volume (MCV)Ordered By: Dr. Malave on 02-14-2022 MCV (RBC) [Entitic vol] 101.7 fL 81-99 [facility] Hematocrit Auto (Bld) [Volum e fraction]Ordered By: Dr. Malave on 02-14-2022 Hematocrit (Bld) [Volume fraction] 35.2 % 37-47 [facility] Ketones Test strip Ql (U)Ord ered By: Dr. Malave on 02-14-2022 Ketones Ql (U) Negative Negative [facility] - Chemistry and C hemistry - challengeOrdered By: Dr. Malave on 02-14-2022 CO2 [Moles/Vol] 27.0 mmol/L 21.0-32.0 [facility] Urea nitrogen/Creatinine [Mass ratio] 14.0 mg/mg 10-20 [facility] - Hematology and Cell countsOrdered By: Dr. Malave on 02-14-2022 Erythrocyte distribution width (RBC) [Entitic vol] 48.1 fL 35.1-43.9 [facility] Erythrocyte distribution width (RBC) [Ratio] 12.9 % 11.6-14.6 [facility] Immature granulocytes/100 WBC (Bld) 0.200 % 0.0-0.9 [facility] Comment on above: IG% - Immature Granu locytes (promyelocytes, myelocytes and metamyelocytes) > 1% indicates that a LEFT SHIFT is Present. MCH (RBC) [Entitic mass] 30.3 pg 27.0-32.0 [facility] Nucleated RBC/100 WBC (Bld) [Ratio] 0 % 0-5 [facility] MCHC Auto (RBC) [Mass/Vol]Or dered By: Dr. Malave on 02-14-2022 MCHC (RBC) [Mass/Vol] 29.8 g/dL 32-36 [facility] Mucus LM Ql (Urine sed)Order ed By: Dr. Malave on 02-14-2022 Mucus Ql (Urine sed) 0 SEEN /hpf [facility] Nitrite Test strip Ql (U)Ord ered By: Dr. Malave on 02-14-2022 Nitrite Ql (U) Negative Negative [facility] No Panel InformationOrdered By: Dr. Malave on 02-14-2022 Estimated Creatinine Clearance Calc 37.60 ml/min [facility] Estimated GFR (MDRD) Amer 117 mL/min >60 [facility] Comment on above: GFR Calc Estimated GFR (MDRD) Non-Af Amer 97 mL/min >60 [facility] Comment on above: Non- GFR Calc Platelets bldOrdered By: Dr. Malave on 02-14-2022 Platelets (Bld) [#/Vol] 201 10*3/uL 150-450 [facility] Protein Test strip Ql (U)Ord ered By: Dr. Malave on 02-14-2022 Protein Ql (U) Negative Negative [facility] Serum or plasma calcium moriah urement (mass/volume)Ordered By: Dr. Malave on 02-14-2022 Calcium [Mass/Vol] 8.0 mg/dL 8.5-10.1 [facility] Serum or plasma creatinine m easurement (mass/volume)Ordered By: Dr. Malave on 02-14-2022 Creatinine [Mass/Vol] 0.64 mg/dL 0.55-1.02 [facility] Comment on above: The validity of the calculated GFR & GFRAA in patients over 70 years has not been determined. Clinical correlation is essential. Serum or plasma urea nitroge n measurement (mass/volume)Ordered By: Dr. Malave on 02-14-2022 Urea nitrogen [Mass/Vol] 9 mg/dL 7-18 [facility] Squamous epithelial cells de tection in urine sediment by light microscopyOrdered By: Dr. Malave on 02-14-2022 Epithelial cells.squamous LM Ql (Urine sed) 0 SEEN /hpf 5-10 [facility] Thin prep Papanicolaou smear with manual screeningOrdered By: Dr. Malave on 02-14-2022 Thin prep Papanicolaou smear with manual screening 4 5-15 [facility] Urine blood detectionOrdered By: Dr. Malave on 02-14-2022 RBC Ql (U) Negative Negative [facility] RBC Ql (U) 0 SEEN /hpf 0-5 [facility] Urine clarityOrdered By: Dr. Malave on 02-14-2022 Clarity (U) Clear Clear [facility] Urine color determinationOrd ered By: Dr. Malave on 02-14-2022 Color (U) Yellow Yellow [facility] Urine glucose detectionOrder ed By: Dr. Malave on 02-14-2022 Glucose Ql (U) Normal mg/dl Normal [facility] Urine leukocyte esterase det ection by dipstickOrdered By: Dr. Malave on 02-14-2022 Leukocyte esterase Test strip Ql (U) 25 /ul Negative [facility] Urine pHOrdered By: Dr. Ar sanchez on 02-14-2022 pH (U) 6.0 [pH] 5.0 - 8.0 [facility] Urine sediment bacteria coun t by microscopy (number/high power field)Ordered By: Dr. Malave on 02-14-2022 Bacteria LM.HPF (Urine sed) [#/Area] 0 /[HPF] None Seen [facility] Urine specific gravity measu rementOrdered By: Dr. Malave on 02-14-2022 Specific gravity (U) [Rel density] 1.015 1.002-1.030 [facility] Urobilinogen Auto test strip Ql (U)Ordered By: Dr. Malave on 02-14-2022 Urobilinogen Ql (U) Normal mg/dl Normal [facility] Absolute lymphocyte countOrd ered By: Dr. Anderson on 02-08-2022 Lymphocytes Auto (Unsp spec) [#/Vol] 2.55 10*3/uL 0.83-4.51 [facility] Basophil percentageOrdered B y: Dr. Anderson on 02-08-2022 Basophils/100 WBC (Bld) 1.1 % 0-1 [facility] Chloride [Moles/Vol] 109 mmol/L 98-107 [facility] Eosinophils/100 WBC (Bld) 5.7 % 0-5 [facility] Glucose [Mass/Vol] 89 mg/dL 74-106 [facility] Neutrophils (Bld) [#/Vol] 1.3 10*3/uL 2.0-7.7 [facility] Neutrophils/100 WBC (Bld) 28.3 % 47-70 [facility] Potassium [Moles/Vol] 3.6 mmol/L 3.5-5.1 [facility] Sodium [Moles/Vol] 144 mmol/L 136-145 [facility] WBC (Bld) [#/Vol] 4.6 10*3/uL 4.4-11.0 [facility] Blood erythrocytes count (nu mber/volume)Ordered By: Dr. Anderson on 02-08-2022 RBC (Bld) [#/Vol] 3.62 10*6/uL 4.2-5.4 [facility] Blood hemoglobin measurement (mass/volume)Ordered By: Dr. Anderson on 02-08-2022 Hemoglobin (Bld) [Mass/Vol] 11.4 g/dL 12.0-15.0 [facility] Blood lymphocytes/100 leukoc ytesOrdered By: Dr. Anderson on 02-08-2022 Lymphocytes/100 WBC (Bld) 55.7 % 19-41 [facility] Blood monocytes/100 leukocyt esOrdered By: Dr. Anderson on 02-08-2022 Monocytes/100 WBC (Bld) 9.2 % 0-10 [facility] Blood platelet mean volumeOr dered By: Dr. Anderson on 02-08-2022 Platelet mean volume (Bld) [Entitic vol] 10.8 fL 6.2-12.0 [facility] Determination of erythrocyte mean corpuscular volume (MCV)Ordered By: Dr. Anderson on 02-08-2022 MCV (RBC) [Entitic vol] 100.0 fL 81-99 [facility] Hematocrit Auto (Bld) [Volum e fraction]Ordered By: Dr. Anderson on 02-08-2022 Hematocrit (Bld) [Volume fraction] 36.2 % 37-47 [facility] - Chemistry and C hemistry - challengeOrdered By: Dr. Anderson on 02-08-2022 CO2 [Moles/Vol] 31.0 mmol/L 21.0-32.0 [facility] Magnesium [Mass/Vol] 2.2 mg/dL 1.6-2.6 [facility] Urea nitrogen/Creatinine [Mass ratio] 14.2 mg/mg 10-20 [facility] - Hematology and Cell countsOrdered By: Dr. Anderson on 02-08-2022 Erythrocyte distribution width (RBC) [Entitic vol] 46.6 fL 35.1-43.9 [facility] Erythrocyte distribution width (RBC) [Ratio] 12.7 % 11.6-14.6 [facility] Immature granulocytes/100 WBC (Bld) 0.000 % 0.0-0.9 [facility] Comment on above: IG% - Immature Granu locytes (promyelocytes, myelocytes and metamyelocytes) > 1% indicates that a LEFT SHIFT is Present. MCH (RBC) [Entitic mass] 31.5 pg 27.0-32.0 [facility] Nucleated RBC/100 WBC (Bld) [Ratio] 0 % 0-5 [facility] MCHC Auto (RBC) [Mass/Vol]Or dered By: Dr. Anderson on 02-08-2022 MCHC (RBC) [Mass/Vol] 31.5 g/dL 32-36 [facility] No Panel InformationOrdered By: Dr. Andreson on 02-08-2022 Estimated GFR (MDRD) Amer 105 mL/min >60 [facility] Comment on above: GFR Calc Estimated GFR (MDRD) Non-Af Amer 87 mL/min >60 [facility] Comment on above: Non- GFR Calc Platelets bldOrdered By: Dr. Anderson on 02-08-2022 Platelets (Bld) [#/Vol] 209 10*3/uL 150-450 [facility] Serum or plasma calcium moriah urement (mass/volume)Ordered By: Dr. Anderson on 02-08-2022 Calcium [Mass/Vol] 8.3 mg/dL 8.5-10.1 [facility] Serum or plasma creatinine m easurement (mass/volume)Ordered By: Dr. Anderson on 02-08-2022 Creatinine [Mass/Vol] 0.71 mg/dL 0.55-1.02 [facility] Comment on above: The validity of the calculated GFR & GFRAA in patients over 70 years has not been determined. Clinical correlation is essential. Serum or plasma urea nitroge n measurement (mass/volume)Ordered By: Dr. Anderson on 02-08-2022 Urea nitrogen [Mass/Vol] 10 mg/dL 7-18 [facility] Thin prep Papanicolaou smear with manual screeningOrdered By: Dr. Anderson on 02-08-2022 Thin prep Papanicolaou smear with manual screening 4 5-15 [facility] Absolute lymphocyte countOrd ered By: Dr. Anderson on 12-29-2021 Lymphocytes Auto (Unsp spec) [#/Vol] 2.72 10*3/uL 0.83-4.51 [facility] Basophil percentageOrdered B y: Dr. Anderson on 12-29-2021 Basophils/100 WBC (Bld) 1.0 % 0-1 [facility] Chloride [Moles/Vol] 107 mmol/L 98-107 [facility] Eosinophils/100 WBC (Bld) 7.1 % 0-5 [facility] Glucose [Mass/Vol] 77 mg/dL 74-106 [facility] Neutrophils (Bld) [#/Vol] 2.9 10*3/uL 2.0-7.7 [facility] Neutrophils/100 WBC (Bld) 41.4 % 47-70 [facility] Potassium [Moles/Vol] 4.3 mmol/L 3.5-5.1 [facility] Sodium [Moles/Vol] 141 mmol/L 136-145 [facility] WBC (Bld) [#/Vol] 6.9 10*3/uL 4.4-11.0 [facility] Blood erythrocytes count (nu mber/volume)Ordered By: Dr. Anderson on 12-29-2021 RBC (Bld) [#/Vol] 3.42 10*6/uL 4.2-5.4 [facility] Blood hemoglobin measurement (mass/volume)Ordered By: Dr. Anderson on 12-29-2021 Hemoglobin (Bld) [Mass/Vol] 10.8 g/dL 12.0-15.0 [facility] Blood lymphocytes/100 leukoc ytesOrdered By: Dr. Anderson on 12-29-2021 Lymphocytes/100 WBC (Bld) 39.2 % 19-41 [facility] Blood monocytes/100 leukocyt esOrdered By: Dr. Anderson on 12-29-2021 Monocytes/100 WBC (Bld) 11.0 % 0-10 [facility] Blood platelet mean volumeOr dered By: Dr. Anderson on 12-29-2021 Platelet mean volume (Bld) [Entitic vol] 10.9 fL 6.2-12.0 [facility] Determination of erythrocyte mean corpuscular volume (MCV)Ordered By: Dr. Anderson on 12-29-2021 MCV (RBC) [Entitic vol] 105.0 fL 81-99 [facility] Hematocrit Auto (Bld) [Volum e fraction]Ordered By: Dr. Anderson on 12-29-2021 Hematocrit (Bld) [Volume fraction] 35.9 % 37-47 [facility] - Chemistry and C hemistry - challengeOrdered By: Dr. Anderson on 12-29-2021 CO2 [Moles/Vol] 30.0 mmol/L 21.0-32.0 [facility] Cobalamin (Vitamin B12) [Mass/Vol] 682 pg/mL 211-911 [facility] Urea nitrogen/Creatinine [Mass ratio] 13.8 mg/mg 10-20 [facility] - Hematology and Cell countsOrdered By: Dr. Anderson on 12-29-2021 Erythrocyte distribution width (RBC) [Entitic vol] 49.0 fL 35.1-43.9 [facility] Erythrocyte distribution width (RBC) [Ratio] 12.8 % 11.6-14.6 [facility] Immature granulocytes/100 WBC (Bld) 0.300 % 0.0-0.9 [facility] Comment on above: IG% - Immature Granu locytes (promyelocytes, myelocytes and metamyelocytes) > 1% indicates that a LEFT SHIFT is Present. MCH (RBC) [Entitic mass] 31.6 pg 27.0-32.0 [facility] Nucleated RBC/100 WBC (Bld) [Ratio] 0 % 0-5 [facility] MCHC Auto (RBC) [Mass/Vol]Or dered By: Dr. Anderson on 12-29-2021 MCHC (RBC) [Mass/Vol] 30.1 g/dL 32-36 [facility] No Panel InformationOrdered By: Dr. Anderson on 12-29-2021 Estimated GFR (MDRD) Amer 102 mL/min >60 [facility] Comment on above: GFR Calc Estimated GFR (MDRD) Non-Af Amer 85 mL/min >60 [facility] Comment on above: Non- GFR Calc Vitamin D 25-Hydroxy 45.3 ng/mL [facility] Comment on above: Vitamin D 25(OH) Sta tus Range Deficiency <20 ng/mL (50nmol/L) Insufficiency 20 - 30 ng/mL (50 - 75 nmol/L) Sufficiency 30 - 100 ng/mL (75 - 250 nmol/L) Toxicity >100 ng/mL (>250 nmol/L) Platelets bldOrdered By: Dr. Anderson on 12-29-2021 Platelets (Bld) [#/Vol] 308 10*3/uL 150-450 [facility] Serum or plasma calcium moriah urement (mass/volume)Ordered By: Dr. Anderson on 12-29-2021 Calcium [Mass/Vol] 8.5 mg/dL 8.5-10.1 [facility] Serum or plasma creatinine m easurement (mass/volume)Ordered By: Dr. Anderson on 12-29-2021 Creatinine [Mass/Vol] 0.72 mg/dL 0.55-1.02 [facility] Comment on above: The validity of the calculated GFR & GFRAA in patients over 70 years has not been determined. Clinical correlation is essential. Serum or plasma urea nitroge n measurement (mass/volume)Ordered By: Dr. Anderson on 12-29-2021 Urea nitrogen [Mass/Vol] 10 mg/dL 7-18 [facility] Thin prep Papanicolaou smear with manual screeningOrdered By: Dr. Anderson on 12-29-2021 Thin prep Papanicolaou smear with manual screening 4 5-15 [facility] Absolute lymphocyte countOrd ered By: Dr. Anderson on 12-23-2021 Lymphocytes Auto (Unsp spec) [#/Vol] 2.25 10*3/uL 0.83-4.51 [facility] Basophil percentageOrdered B y: Dr. Andersno on 12-23-2021 Basophils/100 WBC (Bld) 0.8 % 0-1 [facility] Chloride [Moles/Vol] 108 mmol/L 98-107 [facility] Eosinophils/100 WBC (Bld) 8.2 % 0-5 [facility] Glucose [Mass/Vol] 78 mg/dL 74-106 [facility] Neutrophils (Bld) [#/Vol] 5.2 10*3/uL 2.0-7.7 [facility] Neutrophils/100 WBC (Bld) 59.1 % 47-70 [facility] Potassium [Moles/Vol] 4.3 mmol/L 3.5-5.1 [facility] Sodium [Moles/Vol] 141 mmol/L 136-145 [facility] WBC (Bld) [#/Vol] 8.8 10*3/uL 4.4-11.0 [facility] Blood erythrocytes count (nu mber/volume)Ordered By: Dr. Anderson on 12-23-2021 RBC (Bld) [#/Vol] 3.52 10*6/uL 4.2-5.4 [facility] Blood hemoglobin measurement (mass/volume)Ordered By: Dr. Anderson on 12-23-2021 Hemoglobin (Bld) [Mass/Vol] 11.0 g/dL 12.0-15.0 [facility] Blood lymphocytes/100 leukoc ytesOrdered By: Dr. Anderson on 12-23-2021 Lymphocytes/100 WBC (Bld) 25.7 % 19-41 [facility] Blood monocytes/100 leukocyt esOrdered By: Dr. Anderson on 12-23-2021 Monocytes/100 WBC (Bld) 5.9 % 0-10 [facility] Blood platelet mean volumeOr dered By: Dr. Anderson on 12-23-2021 Platelet mean volume (Bld) [Entitic vol] 10.3 fL 6.2-12.0 [facility] Determination of erythrocyte mean corpuscular volume (MCV)Ordered By: Dr. Anderson on 12-23-2021 MCV (RBC) [Entitic vol] 103.4 fL 81-99 [facility] Hematocrit Auto (Bld) [Volum e fraction]Ordered By: Dr. Anderson on 12-23-2021 Hematocrit (Bld) [Volume fraction] 36.4 % 37-47 [facility] Laboratory - Chemistry and C hemistry - challengeOrdered By: Dr. Anderson on 12-23-2021 CO2 [Moles/Vol] 30.0 mmol/L 21.0-32.0 [facility] Urea nitrogen/Creatinine [Mass ratio] 16.4 mg/mg 10-20 [facility] - Hematology and Cell countsOrdered By: Dr. Anderson on 12-23-2021 Erythrocyte distribution width (RBC) [Entitic vol] 46.5 fL 35.1-43.9 [facility] Erythrocyte distribution width (RBC) [Ratio] 12.4 % 11.6-14.6 [facility] Immature granulocytes/100 WBC (Bld) 0.300 % 0.0-0.9 [facility] Comment on above: IG% - Immature Granu locytes (promyelocytes, myelocytes and metamyelocytes) > 1% indicates that a LEFT SHIFT is Present. MCH (RBC) [Entitic mass] 31.3 pg 27.0-32.0 [facility] Nucleated RBC/100 WBC (Bld) [Ratio] 0 % 0-5 [facility] MCHC Auto (RBC) [Mass/Vol]Or dered By: Dr. Anderson on 12-23-2021 MCHC (RBC) [Mass/Vol] 30.2 g/dL 32-36 [facility] No Panel InformationOrdered By: Dr. Anderson on 12-23-2021 Estimated GFR (MDRD) Amer 101 mL/min >60 [facility] Comment on above: GFR Calc Estimated GFR (MDRD) Non-Af Amer 84 mL/min >60 [facility] Comment on above: Non- GFR Calc Platelets bldOrdered By: Dr. Anderson on 12-23-2021 Platelets (Bld) [#/Vol] 321 10*3/uL 150-450 [facility] Serum or plasma calcium moriah urement (mass/volume)Ordered By: Dr. Anderson on 12-23-2021 Calcium [Mass/Vol] 8.6 mg/dL 8.5-10.1 [facility] Serum or plasma creatinine m easurement (mass/volume)Ordered By: Dr. Anderson on 12-23-2021 Creatinine [Mass/Vol] 0.73 mg/dL 0.55-1.02 [facility] Comment on above: The validity of the calculated GFR & GFRAA in patients over 70 years has not been determined. Clinical correlation is essential. Serum or plasma urea nitroge n measurement (mass/volume)Ordered By: Dr. Anderson on 12-23-2021 Urea nitrogen [Mass/Vol] 12 mg/dL 7-18 [facility] Thin prep Papanicolaou smear with manual screeningOrdered By: Dr. Anderson on 12-23-2021 Thin prep Papanicolaou smear with manual screening 3 5-15 [facility] Absolute lymphocyte counton 12-16-2021 Lymphocytes Auto (Unsp spec) [#/Vol] 2.93 10*3/uL 0.83-4.51 [facility] Work Phone: Basophil percentageon 2021 Basophils/100 WBC (Bld) 0.9 % 0-1 [facility] Work Phone: Chloride [Moles/Vol] 106 mmol/L 98-107 [facility] Work Phone: Eosinophils/100 WBC (Bld) 11.4 % 0-5 [facility] Work Phone: Glucose [Mass/Vol] 84 mg/dL 74-106 [facility] Work Phone: Neutrophils (Bld) [#/Vol] 2.3 10*3/uL 2.0-7.7 [facility] Work Phone: Neutrophils/100 WBC (Bld) 34.0 % 47-70 [facility] Work Phone: Potassium [Moles/Vol] 3.6 mmol/L 3.5-5.1 [facility] Work Phone: Sodium [Moles/Vol] 143 mmol/L 136-145 [facility] Work Phone: WBC (Bld) [#/Vol] 6.6 10*3/uL 4.4-11.0 [facility] Work Phone: Blood erythrocytes count (nu mber/volume)on 12-16-2021 RBC (Bld) [#/Vol] 3.54 10*6/uL 4.2-5.4 [facility] Work Phone: Blood hemoglobin measurement (mass/volume)on 12-16-2021 Hemoglobin (Bld) [Mass/Vol] 11.4 g/dL 12.0-15.0 [facility] Work Phone: Blood lymphocytes/100 leukoc yteson 12-16-2021 Lymphocytes/100 WBC (Bld) 44.4 % 19-41 [facility] Work Phone: Blood monocytes/100 leukocyt eson 12-16-2021 Monocytes/100 WBC (Bld) 9.1 % 0-10 [facility] Work Phone: Blood platelet mean volumeon 12-16-2021 Platelet mean volume (Bld) [Entitic vol] 10.4 fL 6.2-12.0 [facility] Work Phone: Determination of erythrocyte mean corpuscular volume (MCV)on 12-16-2021 MCV (RBC) [Entitic vol] 103.1 fL 81-99 [facility] Work Phone: Hematocrit Auto (Bld) [Volum e fraction]on 12-16-2021 Hematocrit (Bld) [Volume fraction] 36.5 % 37-47 [facility] Work Phone: Laboratory - Chemistry and C hemistry - challengeon 12-16-2021 CO2 [Moles/Vol] 30.0 mmol/L 21.0-32.0 [facility] Work Phone: Urea nitrogen/Creatinine [Mass ratio] 14.7 mg/mg 10-20 [facility] Work Phone: Laboratory - Hematology and Cell countson 12-16-2021 Erythrocyte distribution width (RBC) [Entitic vol] 46.3 fL 35.1-43.9 [facility] Work Phone: Erythrocyte distribution width (RBC) [Ratio] 12.1 % 11.6-14.6 [facility] Work Phone: Immature granulocytes/100 WBC (Bld) 0.200 % 0.0-0.9 [facility] Work Phone: Comment on above: IG% - Immature Granu locytes (promyelocytes, myelocytes and metamyelocytes) > 1% indicates that a LEFT SHIFT is Present. MCH (RBC) [Entitic mass] 32.2 pg 27.0-32.0 [facility] Work Phone: Nucleated RBC/100 WBC (Bld) [Ratio] 0 % 0-5 [facility] Work Phone: MCHC Auto (RBC) [Mass/Vol]on 12-16-2021 MCHC (RBC) [Mass/Vol] 31.2 g/dL 32-36 [facility] Work Phone: No Panel Informationon 12-16 Estimated GFR (MDRD) Amer 110 mL/min >60 [facility] Work Phone: Comment on above: GFR Calc Estimated GFR (MDRD) Non-Af Amer 91 mL/min >60 [facility] Work Phone: Comment on above: Non- GFR Calc Platelets bldon 12-16-2021 Platelets (Bld) [#/Vol] 292 10*3/uL 150-450 [facility] Work Phone: Serum or plasma calcium moriah urement (mass/volume)on 12-16-2021 Calcium [Mass/Vol] 8.7 mg/dL 8.5-10.1 [facility] Work Phone: Serum or plasma creatinine m easurement (mass/volume)on 12-16-2021 Creatinine [Mass/Vol] 0.68 mg/dL 0.55-1.02 [facility] Work Phone: Comment on above: The validity of the calculated GFR & GFRAA in patients over 70 years has not been determined. Clinical correlation is essential. Serum or plasma urea nitroge n measurement (mass/volume)on 12-16-2021 Urea nitrogen [Mass/Vol] 10 mg/dL 7-18 [facility] Work Phone: Thin prep Papanicolaou smear with manual screeningon 12-16-2021 Thin prep Papanicolaou smear with manual screening 7 5-15 [facility] Work Phone: Absolute lymphocyte counton 12-09-2021 Lymphocytes Auto (Unsp spec) [#/Vol] 2.45 10*3/uL 0.83-4.51 [facility] Work Phone: Basophil percentageon 2021 Basophils/100 WBC (Bld) 1.4 % 0-1 [facility] Work Phone: Chloride [Moles/Vol] 108 mmol/L 98-107 [facility] Work Phone: Eosinophils/100 WBC (Bld) 9.7 % 0-5 [facility] Work Phone: Glucose [Mass/Vol] 73 mg/dL 74-106 [facility] Work Phone: Neutrophils (Bld) [#/Vol] 2.1 10*3/uL 2.0-7.7 [facility] Work Phone: Neutrophils/100 WBC (Bld) 36.8 % 47-70 [facility] Work Phone: Potassium [Moles/Vol] 3.7 mmol/L 3.5-5.1 [facility] Work Phone: Sodium [Moles/Vol] 143 mmol/L 136-145 [facility] Work Phone: WBC (Bld) [#/Vol] 5.8 10*3/uL 4.4-11.0 [facility] Work Phone: Blood erythrocytes count (nu mber/volume)on 12-09-2021 RBC (Bld) [#/Vol] 3.68 10*6/uL 4.2-5.4 [facility] Work Phone: Blood hemoglobin measurement (mass/volume)on 12-09-2021 Hemoglobin (Bld) [Mass/Vol] 11.8 g/dL 12.0-15.0 [facility] Work Phone: Blood lymphocytes/100 leukoc yteson 12-09-2021 Lymphocytes/100 WBC (Bld) 42.5 % 19-41 [facility] Work Phone: Blood monocytes/100 leukocyt eson 12-09-2021 Monocytes/100 WBC (Bld) 9.4 % 0-10 [facility] Work Phone: Blood platelet mean volumeon 12-09-2021 Platelet mean volume (Bld) [Entitic vol] 10.3 fL 6.2-12.0 [facility] Work Phone: Determination of erythrocyte mean corpuscular volume (MCV)on 12-09-2021 MCV (RBC) [Entitic vol] 103.8 fL 81-99 [facility] Work Phone: Hematocrit Auto (Bld) [Volum e fraction]on 12-09-2021 Hematocrit (Bld) [Volume fraction] 38.2 % 37-47 [facility] Work Phone: Laboratory - Chemistry and C hemistry - challengeon 12-09-2021 CO2 [Moles/Vol] 30.0 mmol/L 21.0-32.0 [facility] Work Phone: Urea nitrogen/Creatinine [Mass ratio] 7.4 mg/mg 10-20 [facility] Work Phone: Laboratory - Hematology and Cell countson 12-09-2021 Erythrocyte distribution width (RBC) [Entitic vol] 47.8 fL 35.1-43.9 [facility] Work Phone: Erythrocyte distribution width (RBC) [Ratio] 12.5 % 11.6-14.6 [facility] Work Phone: Immature granulocytes/100 WBC (Bld) 0.200 % 0.0-0.9 [facility] Work Phone: Comment on above: IG% - Immature Granu locytes (promyelocytes, myelocytes and metamyelocytes) > 1% indicates that a LEFT SHIFT is Present. MCH (RBC) [Entitic mass] 32.1 pg 27.0-32.0 [facility] Work Phone: Nucleated RBC/100 WBC (Bld) [Ratio] 0 % 0-5 [facility] Work Phone: MCHC Auto (RBC) [Mass/Vol]on 12-09-2021 MCHC (RBC) [Mass/Vol] 30.9 g/dL 32-36 [facility] Work Phone: No Panel Informationon 12-09 Estimated GFR (MDRD) Amer 90 mL/min >60 [facility] Work Phone: Comment on above: GFR Calc Estimated GFR (MDRD) Non-Af Amer 75 mL/min >60 [facility] Work Phone: Comment on above: Non- GFR Calc Platelets bldon 12-09-2021 Platelets (Bld) [#/Vol] 255 10*3/uL 150-450 [facility] Work Phone: Serum or plasma calcium moriah urement (mass/volume)on 12-09-2021 Calcium [Mass/Vol] 8.7 mg/dL 8.5-10.1 [facility] Work Phone: Serum or plasma creatinine m easurement (mass/volume)on 12-09-2021 Creatinine [Mass/Vol] 0.81 mg/dL 0.55-1.02 [facility] Work Phone: Comment on above: The validity of the calculated GFR & GFRAA in patients over 70 years has not been determined. Clinical correlation is essential. Serum or plasma urea nitroge n measurement (mass/volume)on 12-09-2021 Urea nitrogen [Mass/Vol] 6 mg/dL 7-18 [facility] Work Phone: Thin prep Papanicolaou smear with manual screeningon 12-09-2021 Thin prep Papanicolaou smear with manual screening 5 5-15 [facility] Work Phone: Absolute lymphocyte counton 12-02-2021 Lymphocytes Auto (Unsp spec) [#/Vol] 3.00 10*3/uL 0.83-4.51 [facility] Work Phone: Basophil percentageon 2021 Basophils/100 WBC (Bld) 1.0 % 0-1 [facility] Work Phone: Chloride [Moles/Vol] 108 mmol/L 98-107 [facility] Work Phone: Eosinophils/100 WBC (Bld) 8.7 % 0-5 [facility] Work Phone: Glucose [Mass/Vol] 76 mg/dL 74-106 [facility] Work Phone: Neutrophils (Bld) [#/Vol] 1.8 10*3/uL 2.0-7.7 [facility] Work Phone: Neutrophils/100 WBC (Bld) 30.4 % 47-70 [facility] Work Phone: Potassium [Moles/Vol] 3.9 mmol/L 3.5-5.1 [facility] Work Phone: Sodium [Moles/Vol] 142 mmol/L 136-145 [facility] Work Phone: WBC (Bld) [#/Vol] 6.0 10*3/uL 4.4-11.0 [facility] Work Phone: Blood erythrocytes count (nu mber/volume)on 12-02-2021 RBC (Bld) [#/Vol] 3.43 10*6/uL 4.2-5.4 [facility] Work Phone: Blood hemoglobin measurement (mass/volume)on 12-02-2021 Hemoglobin (Bld) [Mass/Vol] 11.1 g/dL 12.0-15.0 [facility] Work Phone: Blood lymphocytes/100 leukoc yteson 12-02-2021 Lymphocytes/100 WBC (Bld) 50.2 % 19-41 [facility] Work Phone: Blood monocytes/100 leukocyt eson 12-02-2021 Monocytes/100 WBC (Bld) 9.5 % 0-10 [facility] Work Phone: Blood platelet mean volumeon 12-02-2021 Platelet mean volume (Bld) [Entitic vol] 10.6 fL 6.2-12.0 [facility] Work Phone: Determination of erythrocyte mean corpuscular volume (MCV)on 12-02-2021 MCV (RBC) [Entitic vol] 103.8 fL 81-99 [facility] Work Phone: Hematocrit Auto (Bld) [Volum e fraction]on 12-02-2021 Hematocrit (Bld) [Volume fraction] 35.6 % 37-47 [facility] Work Phone: Laboratory - Chemistry and C hemistry - challengeon 12-02-2021 CO2 [Moles/Vol] 29.0 mmol/L 21.0-32.0 [facility] Work Phone: Urea nitrogen/Creatinine [Mass ratio] 8.5 mg/mg 10-20 [facility] Work Phone: Laboratory - Hematology and Cell countson 12-02-2021 Erythrocyte distribution width (RBC) [Entitic vol] 47.6 fL 35.1-43.9 [facility] Work Phone: Erythrocyte distribution width (RBC) [Ratio] 12.4 % 11.6-14.6 [facility] Work Phone: Immature granulocytes/100 WBC (Bld) 0.200 % 0.0-0.9 [facility] Work Phone: Comment on above: IG% - Immature Granu locytes (promyelocytes, myelocytes and metamyelocytes) > 1% indicates that a LEFT SHIFT is Present. MCH (RBC) [Entitic mass] 32.4 pg 27.0-32.0 [facility] Work Phone: Nucleated RBC/100 WBC (Bld) [Ratio] 0 % 0-5 [facility] Work Phone: MCHC Auto (RBC) [Mass/Vol]on 12-02-2021 MCHC (RBC) [Mass/Vol] 31.2 g/dL 32-36 [facility] Work Phone: No Panel Informationon 12-02 Estimated GFR (MDRD) Amer 105 mL/min >60 [facility] Work Phone: Comment on above: GFR Calc Estimated GFR (MDRD) Non-Af Amer 86 mL/min >60 [facility] Work Phone: Comment on above: Non- GFR Calc Platelets bldon 12-02-2021 Platelets (Bld) [#/Vol] 254 10*3/uL 150-450 [facility] Work Phone: Serum or plasma calcium moriah urement (mass/volume)on 12-02-2021 Calcium [Mass/Vol] 8.6 mg/dL 8.5-10.1 [facility] Work Phone: Serum or plasma creatinine m easurement (mass/volume)on 12-02-2021 Creatinine [Mass/Vol] 0.71 mg/dL 0.55-1.02 [facility] Work Phone: Comment on above: The validity of the calculated GFR & GFRAA in patients over 70 years has not been determined. Clinical correlation is essential. Serum or plasma urea nitroge n measurement (mass/volume)on 12-02-2021 Urea nitrogen [Mass/Vol] 6 mg/dL 7-18 [facility] Work Phone: Thin prep Papanicolaou smear with manual screeningon 12-02-2021 Thin prep Papanicolaou smear with manual screening 5 5-15 [facility] Work Phone: Absolute lymphocyte counton 11-25-2021 Lymphocytes Auto (Unsp spec) [#/Vol] 2.70 10*3/uL 0.83-4.51 [facility] Work Phone: Basophil percentageon 2021 Basophils/100 WBC (Bld) 1.1 % 0-1 [facility] Work Phone: Chloride [Moles/Vol] 107 mmol/L 98-107 [facility] Work Phone: Eosinophils/100 WBC (Bld) 8.6 % 0-5 [facility] Work Phone: Glucose [Mass/Vol] 77 mg/dL 74-106 [facility] Work Phone: Neutrophils (Bld) [#/Vol] 1.6 10*3/uL 2.0-7.7 [facility] Work Phone: Neutrophils/100 WBC (Bld) 29.4 % 47-70 [facility] Work Phone: Potassium [Moles/Vol] 3.7 mmol/L 3.5-5.1 [facility] Work Phone: Sodium [Moles/Vol] 142 mmol/L 136-145 [facility] Work Phone: WBC (Bld) [#/Vol] 5.4 10*3/uL 4.4-11.0 [facility] Work Phone: Blood erythrocytes count (nu mber/volume)on 11-25-2021 RBC (Bld) [#/Vol] 3.46 10*6/uL 4.2-5.4 [facility] Work Phone: Blood hemoglobin measurement (mass/volume)on 11-25-2021 Hemoglobin (Bld) [Mass/Vol] 11.3 g/dL 12.0-15.0 [facility] Work Phone: Blood lymphocytes/100 leukoc yteson 11-25-2021 Lymphocytes/100 WBC (Bld) 50.3 % 19-41 [facility] Work Phone: Blood monocytes/100 leukocyt eson 11-25-2021 Monocytes/100 WBC (Bld) 10.4 % 0-10 [facility] Work Phone: Blood platelet mean volumeon 11-25-2021 Platelet mean volume (Bld) [Entitic vol] 10.4 fL 6.2-12.0 [facility] Work Phone: Determination of erythrocyte mean corpuscular volume (MCV)on 11-25-2021 MCV (RBC) [Entitic vol] 102.9 fL 81-99 [facility] Work Phone: Hematocrit Auto (Bld) [Volum e fraction]on 11-25-2021 Hematocrit (Bld) [Volume fraction] 35.6 % 37-47 [facility] Work Phone: Laboratory - Chemistry and C hemistry - challengeon 11-25-2021 CO2 [Moles/Vol] 29.0 mmol/L 21.0-32.0 [facility] Work Phone: Urea nitrogen/Creatinine [Mass ratio] 8.9 mg/mg 10-20 [facility] Work Phone: Laboratory - Hematology and Cell countson 11-25-2021 Erythrocyte distribution width (RBC) [Entitic vol] 47.5 fL 35.1-43.9 [facility] Work Phone: Erythrocyte distribution width (RBC) [Ratio] 12.7 % 11.6-14.6 [facility] Work Phone: Immature granulocytes/100 WBC (Bld) 0.200 % 0.0-0.9 [facility] Work Phone: Comment on above: IG% - Immature Granu locytes (promyelocytes, myelocytes and metamyelocytes) > 1% indicates that a LEFT SHIFT is Present. MCH (RBC) [Entitic mass] 32.7 pg 27.0-32.0 [facility] Work Phone: Nucleated RBC/100 WBC (Bld) [Ratio] 0 % 0-5 [facility] Work Phone: MCHC Auto (RBC) [Mass/Vol]on 11-25-2021 MCHC (RBC) [Mass/Vol] 31.7 g/dL 32-36 [facility] Work Phone: No Panel Informationon 11-25 Estimated GFR (MDRD) Amer 111 mL/min >60 [facility] Work Phone: Comment on above: GFR Calc Estimated GFR (MDRD) Non-Af Amer 92 mL/min >60 [facility] Work Phone: Comment on above: Non- GFR Calc Platelets bldon 11-25-2021 Platelets (Bld) [#/Vol] 278 10*3/uL 150-450 [facility] Work Phone: Serum or plasma calcium moriah urement (mass/volume)on 11-25-2021 Calcium [Mass/Vol] 8.8 mg/dL 8.5-10.1 [facility] Work Phone: Serum or plasma creatinine m easurement (mass/volume)on 11-25-2021 Creatinine [Mass/Vol] 0.67 mg/dL 0.55-1.02 [facility] Work Phone: Comment on above: The validity of the calculated GFR & GFRAA in patients over 70 years has not been determined. Clinical correlation is essential. Serum or plasma urea nitroge n measurement (mass/volume)on 11-25-2021 Urea nitrogen [Mass/Vol] 6 mg/dL 7-18 [facility] Work Phone: Thin prep Papanicolaou smear with manual screeningon 11-25-2021 Thin prep Papanicolaou smear with manual screening 6 5-15 [facility] Work Phone: Absolute lymphocyte counton 11-18-2021 Lymphocytes Auto (Unsp spec) [#/Vol] 2.55 10*3/uL 0.83-4.51 [facility] Work Phone: Basophil percentageon 2021 Basophils/100 WBC (Bld) 1.0 % 0-1 [facility] Work Phone: Chloride [Moles/Vol] 108 mmol/L 98-107 [facility] Work Phone: Eosinophils/100 WBC (Bld) 6.6 % 0-5 [facility] Work Phone: Glucose [Mass/Vol] 75 mg/dL 74-106 [facility] Work Phone: Neutrophils (Bld) [#/Vol] 2.3 10*3/uL 2.0-7.7 [facility] Work Phone: Neutrophils/100 WBC (Bld) 38.2 % 47-70 [facility] Work Phone: Potassium [Moles/Vol] 3.6 mmol/L 3.5-5.1 [facility] Work Phone: Sodium [Moles/Vol] 142 mmol/L 136-145 [facility] Work Phone: WBC (Bld) [#/Vol] 5.9 10*3/uL 4.4-11.0 [facility] Work Phone: Blood erythrocytes count (nu mber/volume)on 11-18-2021 RBC (Bld) [#/Vol] 3.32 10*6/uL 4.2-5.4 [facility] Work Phone: Blood hemoglobin measurement (mass/volume)on 11-18-2021 Hemoglobin (Bld) [Mass/Vol] 10.9 g/dL 12.0-15.0 [facility] Work Phone: Blood lymphocytes/100 leukoc yteson 11-18-2021 Lymphocytes/100 WBC (Bld) 43.2 % 19-41 [facility] Work Phone: Blood monocytes/100 leukocyt eson 11-18-2021 Monocytes/100 WBC (Bld) 10.8 % 0-10 [facility] Work Phone: Blood platelet mean volumeon 11-18-2021 Platelet mean volume (Bld) [Entitic vol] 10.1 fL 6.2-12.0 [facility] Work Phone: Determination of erythrocyte mean corpuscular volume (MCV)on 11-18-2021 MCV (RBC) [Entitic vol] 103.3 fL 81-99 [facility] Work Phone: Hematocrit Auto (Bld) [Volum e fraction]on 11-18-2021 Hematocrit (Bld) [Volume fraction] 34.3 % 37-47 [facility] Work Phone: Laboratory - Chemistry and C hemistry - challengeon 11-18-2021 CO2 [Moles/Vol] 32.0 mmol/L 21.0-32.0 [facility] Work Phone: Urea nitrogen/Creatinine [Mass ratio] 10.9 mg/mg 10-20 [facility] Work Phone: Laboratory - Hematology and Cell countson 11-18-2021 Erythrocyte distribution width (RBC) [Entitic vol] 49.1 fL 35.1-43.9 [facility] Work Phone: Erythrocyte distribution width (RBC) [Ratio] 13.0 % 11.6-14.6 [facility] Work Phone: Immature granulocytes/100 WBC (Bld) 0.200 % 0.0-0.9 [facility] Work Phone: Comment on above: IG% - Immature Granu locytes (promyelocytes, myelocytes and metamyelocytes) > 1% indicates that a LEFT SHIFT is Present. MCH (RBC) [Entitic mass] 32.8 pg 27.0-32.0 [facility] Work Phone: Nucleated RBC/100 WBC (Bld) [Ratio] 0 % 0-5 [facility] Work Phone: MCHC Auto (RBC) [Mass/Vol]on 11-18-2021 MCHC (RBC) [Mass/Vol] 31.8 g/dL 32-36 [facility] Work Phone: No Panel Informationon 11-18 Estimated GFR (MDRD) Amer 117 mL/min >60 [facility] Work Phone: Comment on above: GFR Calc Estimated GFR (MDRD) Non-Af Amer 97 mL/min >60 [facility] Work Phone: Comment on above: Non- GFR Calc Platelets bldon 11-18-2021 Platelets (Bld) [#/Vol] 281 10*3/uL 150-450 [facility] Work Phone: Serum or plasma calcium mroiah urement (mass/volume)on 11-18-2021 Calcium [Mass/Vol] 8.6 mg/dL 8.5-10.1 [facility] Work Phone: Serum or plasma creatinine m easurement (mass/volume)on 11-18-2021 Creatinine [Mass/Vol] 0.64 mg/dL 0.55-1.02 [facility] Work Phone: Comment on above: The validity of the calculated GFR & GFRAA in patients over 70 years has not been determined. Clinical correlation is essential. Serum or plasma urea nitroge n measurement (mass/volume)on 11-18-2021 Urea nitrogen [Mass/Vol] 7 mg/dL 7-18 [facility] Work Phone: Thin prep Papanicolaou smear with manual screeningon 11-18-2021 Thin prep Papanicolaou smear with manual screening 2 5-15 [facility] Work Phone: Absolute lymphocyte counton 11-11-2021 Lymphocytes Auto (Unsp spec) [#/Vol] 2.30 10*3/uL 0.83-4.51 [facility] Work Phone: Basophil percentageon 2021 Basophils/100 WBC (Bld) 1.0 % 0-1 [facility] Work Phone: Chloride [Moles/Vol] 106 mmol/L 98-107 [facility] Work Phone: Eosinophils/100 WBC (Bld) 8.8 % 0-5 [facility] Work Phone: Glucose [Mass/Vol] 83 mg/dL 74-106 [facility] Work Phone: Neutrophils (Bld) [#/Vol] 2.5 10*3/uL 2.0-7.7 [facility] Work Phone: Neutrophils/100 WBC (Bld) 41.1 % 47-70 [facility] Work Phone: Potassium [Moles/Vol] 4.0 mmol/L 3.5-5.1 [facility]: Sodium [Moles/Vol] 141 mmol/L 136-145 [facility] Work Phone: WBC (Bld) [#/Vol] 6.2 10*3/uL 4.4-11.0 [facility] Work Phone: Blood erythrocytes count (nu mber/volume)on 11-11-2021 RBC (Bld) [#/Vol] 3.46 10*6/uL 4.2-5.4 [facility] Work Phone: Blood hemoglobin measurement (mass/volume)on 11-11-2021 Hemoglobin (Bld) [Mass/Vol] 11.4 g/dL 12.0-15.0 [facility] Work Phone: Blood lymphocytes/100 leukoc yteson 11-11-2021 Lymphocytes/100 WBC (Bld) 37.4 % 19-41 [facility] Work Phone: Blood monocytes/100 leukocyt eson 11-11-2021 Monocytes/100 WBC (Bld) 11.4 % 0-10 [facility] Work Phone: Blood platelet mean volumeon 11-11-2021 Platelet mean volume (Bld) [Entitic vol] 10.1 fL 6.2-12.0 [facility] Work Phone: Determination of erythrocyte mean corpuscular volume (MCV)on 11-11-2021 MCV (RBC) [Entitic vol] 102.0 fL 81-99 [facility] Work Phone: Hematocrit Auto (Bld) [Volum e fraction]on 11-11-2021 Hematocrit (Bld) [Volume fraction] 35.3 % 37-47 [facility] Work Phone: Laboratory - Chemistry and C hemistry - challengeon 11-11-2021 CO2 [Moles/Vol] 31.0 mmol/L 21.0-32.0 [facility] Work Phone: Urea nitrogen/Creatinine [Mass ratio] 5.0 mg/mg 10-20 [facility] Work Phone: Laboratory - Hematology and Cell countson 11-11-2021 Erythrocyte distribution width (RBC) [Entitic vol] 50.2 fL 35.1-43.9 [facility] Work Phone: Erythrocyte distribution width (RBC) [Ratio] 13.3 % 11.6-14.6 [facility] Work Phone: Immature granulocytes/100 WBC (Bld) 0.300 % 0.0-0.9 [facility] Work Phone: Comment on above: IG% - Immature Granu locytes (promyelocytes, myelocytes and metamyelocytes) > 1% indicates that a LEFT SHIFT is Present. MCH (RBC) [Entitic mass] 32.9 pg 27.0-32.0 [facility] Work Phone: Nucleated RBC/100 WBC (Bld) [Ratio] 0 % 0-5 [facility] Work Phone: MCHC Auto (RBC) [Mass/Vol]on 11-11-2021 MCHC (RBC) [Mass/Vol] 32.3 g/dL 32-36 [facility] Work Phone: No Panel Informationon 11-11 Estimated GFR (MDRD) Amer 91 mL/min >60 [facility] Work Phone: Comment on above: GFR Calc Estimated GFR (MDRD) Non-Af Amer 75 mL/min >60 [facility] Work Phone: Comment on above: Non- GFR Calc Platelets bldon 11-11-2021 Platelets (Bld) [#/Vol] 265 10*3/uL 150-450 [facility] Work Phone: Serum or plasma calcium moriah urement (mass/volume)on 11-11-2021 Calcium [Mass/Vol] 8.7 mg/dL 8.5-10.1 [facility] Work Phone: Serum or plasma creatinine m easurement (mass/volume)on 11-11-2021 Creatinine [Mass/Vol] 0.80 mg/dL 0.55-1.02 [facility] Work Phone: Comment on above: The validity of the calculated GFR & GFRAA in patients over 70 years has not been determined. Clinical correlation is essential. Serum or plasma urea nitroge n measurement (mass/volume)on 11-11-2021 Urea nitrogen [Mass/Vol] 4 mg/dL 7-18 [facility] Work Phone: Thin prep Papanicolaou smear with manual screeningon 11-11-2021 Thin prep Papanicolaou smear with manual screening 4 5-15 [facility] Work Phone: Absolute lymphocyte counton 11-04-2021 Lymphocytes Auto (Unsp spec) [#/Vol] 2.09 10*3/uL 0.83-4.51 [facility] Work Phone: Basophil percentageon 2021 Basophils/100 WBC (Bld) 0.8 % 0-1 [facility] Work Phone: Chloride [Moles/Vol] 106 mmol/L 98-107 [facility] Work Phone: Eosinophils/100 WBC (Bld) 9.1 % 0-5 [facility] Work Phone: Glucose [Mass/Vol] 123 mg/dL 74-106 [facility] Work Phone: Comment on above: Fasting Glucose resu lt from 100 to 125 mg/dL suggests IMPAIRED HOMEOSTASIS per A.D.A. criteria. Neutrophils (Bld) [#/Vol] 4.1 10*3/uL 2.0-7.7 [facility] Work Phone: Neutrophils/100 WBC (Bld) 55.0 % 47-70 [facility] Work Phone: Potassium [Moles/Vol] 3.9 mmol/L 3.5-5.1 [facility] Work [facility]: Sodium [Moles/Vol] 142 mmol/L 136-145 [facility] Work Phone: WBC (Bld) [#/Vol] 7.5 10*3/uL 4.4-11.0 [facility] Work Phone: Blood erythrocytes count (nu mber/volume)on 11-04-2021 RBC (Bld) [#/Vol] 3.57 10*6/uL 4.2-5.4 [facility] Work Phone: Blood hemoglobin measurement (mass/volume)on 11-04-2021 Hemoglobin (Bld) [Mass/Vol] 11.7 g/dL 12.0-15.0 [facility] Work Phone: Blood lymphocytes/100 leukoc yteson 11-04-2021 Lymphocytes/100 WBC (Bld) 28.0 % 19-41 [facility] Work Phone: Blood monocytes/100 leukocyt eson 11-04-2021 Monocytes/100 WBC (Bld) 6.8 % 0-10 [facility] Work Phone: Blood platelet mean volumeon 11-04-2021 Platelet mean volume (Bld) [Entitic vol] 10.1 fL 6.2-12.0 [facility] Work Phone: Determination of erythrocyte mean corpuscular volume (MCV)on 11-04-2021 MCV (RBC) [Entitic vol] 104.8 fL 81-99 [facility] Work Phone: Hematocrit Auto (Bld) [Volum e fraction]on 11-04-2021 Hematocrit (Bld) [Volume fraction] 37.4 % 37-47 [facility] Work Phone: Laboratory - Chemistry and C hemistry - challengeon 11-04-2021 CO2 [Moles/Vol] 29.0 mmol/L 21.0-32.0 [facility] Work Phone: Urea nitrogen/Creatinine [Mass ratio] 13.3 mg/mg 10-20 [facility] Work Phone: Laboratory - Hematology and Cell countson 11-04-2021 Erythrocyte distribution width (RBC) [Entitic vol] 52.9 fL 35.1-43.9 [facility] Work Phone: Erythrocyte distribution width (RBC) [Ratio] 13.6 % 11.6-14.6 [facility] Work Phone: Immature granulocytes/100 WBC (Bld) 0.300 % 0.0-0.9 [facility] Work Phone: Comment on above: IG% - Immature Granu locytes (promyelocytes, myelocytes and metamyelocytes) > 1% indicates that a LEFT SHIFT is Present. MCH (RBC) [Entitic mass] 32.8 pg 27.0-32.0 [facility] Work Phone: Nucleated RBC/100 WBC (Bld) [Ratio] 0 % 0-5 [facility] Work Phone: MCHC Auto (RBC) [Mass/Vol]on 11-04-2021 MCHC (RBC) [Mass/Vol] 31.3 g/dL 32-36 [facility] Work Phone: No Panel Informationon 11-04 Estimated GFR (MDRD) Amer 110 mL/min >60 [facility] Work Phone: Comment on above: GFR Calc Estimated GFR (MDRD) Non-Af Amer 91 mL/min >60 [facility] Work Phone: Comment on above: Non- GFR Calc Platelets bldon 11-04-2021 Platelets (Bld) [#/Vol] 294 10*3/uL 150-450 [facility] Work Phone: Serum or plasma calcium moriah urement (mass/volume)on 11-04-2021 Calcium [Mass/Vol] 8.7 mg/dL 8.5-10.1 [facility] Work Phone: Serum or plasma creatinine m easurement (mass/volume)on 11-04-2021 Creatinine [Mass/Vol] 0.68 mg/dL 0.55-1.02 [facility] Work Phone: Comment on above: The validity of the calculated GFR & GFRAA in patients over 70 years has not been determined. Clinical correlation is essential. Serum or plasma urea nitroge n measurement (mass/volume)on 11-04-2021 Urea nitrogen [Mass/Vol] 9 mg/dL 7-18 [facility] Work Phone: Thin prep Papanicolaou smear with manual screeningon 11-04-2021 Thin prep Papanicolaou smear with manual screening 7 5-15 [facility] Work Phone: Absolute lymphocyte counton 10-28-2021 Lymphocytes Auto (Unsp spec) [#/Vol] 2.54 10*3/uL 0.83-4.51 [facility] Work Phone: Basophil percentageon 2021 Basophils/100 WBC (Bld) 0.7 % 0-1 [facility] Work Phone: Chloride [Moles/Vol] 106 mmol/L 98-107 [facility] Work Phone: Eosinophils/100 WBC (Bld) 6.6 % 0-5 [facility] Work Phone: Glucose [Mass/Vol] 82 mg/dL 74-106 [facility] Work Phone: Neutrophils (Bld) [#/Vol] 3.1 10*3/uL 2.0-7.7 [facility] Work Phone: Neutrophils/100 WBC (Bld) 44.3 % 47-70 [facility] Work Phone: Potassium [Moles/Vol] 4.3 mmol/L 3.5-5.1 [facility] Work Phone: Sodium [Moles/Vol] 141 mmol/L 136-145 [facility] Work Phone: WBC (Bld) [#/Vol] 6.9 10*3/uL 4.4-11.0 [facility] Work Phone: Blood erythrocytes count (nu mber/volume)on 10-28-2021 RBC (Bld) [#/Vol] 3.52 10*6/uL 4.2-5.4 [facility] Work Phone: Blood hemoglobin measurement (mass/volume)on 10-28-2021 Hemoglobin (Bld) [Mass/Vol] 11.4 g/dL 12.0-15.0 [facility] Work Phone: Blood lymphocytes/100 leukoc yteson 10-28-2021 Lymphocytes/100 WBC (Bld) 36.7 % 19-41 [facility] Work Phone: Blood monocytes/100 leukocyt eson 10-28-2021 Monocytes/100 WBC (Bld) 11.3 % 0-10 [facility] Work Phone: Blood platelet mean volumeon 10-28-2021 Platelet mean volume (Bld) [Entitic vol] 10.1 fL 6.2-12.0 [facility] Work Phone: Determination of erythrocyte mean corpuscular volume (MCV)on 10-28-2021 MCV (RBC) [Entitic vol] 105.7 fL 81-99 [facility] Work Phone: Hematocrit Auto (Bld) [Volum e fraction]on 10-28-2021 Hematocrit (Bld) [Volume fraction] 37.2 % 37-47 [facility] Work Phone: Laboratory - Chemistry and C hemistry - challengeon 10-28-2021 CO2 [Moles/Vol] 30.0 mmol/L 21.0-32.0 [facility] Work Phone: Urea nitrogen/Creatinine [Mass ratio] 15.8 mg/mg 10-20 [facility] Work Phone: Laboratory - Hematology and Cell countson 10-28-2021 Erythrocyte distribution width (RBC) [Entitic vol] 51.7 fL 35.1-43.9 [facility] Work Phone: Erythrocyte distribution width (RBC) [Ratio] 13.6 % 11.6-14.6 [facility] Work Phone: Immature granulocytes/100 WBC (Bld) 0.400 % 0.0-0.9 [facility] Work Phone: Comment on above: IG% - Immature Granu locytes (promyelocytes, myelocytes and metamyelocytes) > 1% indicates that a LEFT SHIFT is Present. MCH (RBC) [Entitic mass] 32.4 pg 27.0-32.0 [facility] Work Phone: Nucleated RBC/100 WBC (Bld) [Ratio] 0 % 0-5 [facility] Work Phone: MCHC Auto (RBC) [Mass/Vol]on 10-28-2021 MCHC (RBC) [Mass/Vol] 30.6 g/dL 32-36 [facility] Work Phone: No Panel Informationon 10-28 Estimated GFR (MDRD) Amer 107 mL/min >60 [facility] Work Phone: Comment on above: GFR Calc Estimated GFR (MDRD) Non-Af Amer 88 mL/min >60 [facility] Work Phone: Comment on above: Non- GFR Calc Vitamin D 25-Hydroxy 40.3 ng/mL [facility] Work Phone: Comment on above: Vitamin D 25(OH) Sta tus Range Deficiency <20 ng/mL (50nmol/L) Insufficiency 20 - 30 ng/mL (50 - 75 nmol/L) Sufficiency 30 - 100 ng/mL (75 - 250 nmol/L) Toxicity >100 ng/mL (>250 nmol/L) Platelets bldon 10-28-2021 Platelets (Bld) [#/Vol] 307 10*3/uL 150-450 [facility] Work Phone: Serum or plasma calcium moriah urement (mass/volume)on 10-28-2021 Calcium [Mass/Vol] 8.7 mg/dL 8.5-10.1 [facility] Work Phone: Serum or plasma creatinine m easurement (mass/volume)on 10-28-2021 Creatinine [Mass/Vol] 0.70 mg/dL 0.55-1.02 [facility] Work [facility]: Comment on above: The validity of the calculated GFR & GFRAA in patients over 70 years has not been determined. Clinical correlation is essential. Serum or plasma urea nitroge n measurement (mass/volume)on 10-28-2021 Urea nitrogen [Mass/Vol] 11 mg/dL 7-18 [facility] Work Phone: Thin prep Papanicolaou smear with manual screeningon 10-28-2021 Thin prep Papanicolaou smear with manual screening 5 5-15 [facility] Work Phone: Absolute lymphocyte counton 10-21-2021 Lymphocytes Auto (Unsp spec) [#/Vol] 3.09 10*3/uL 0.83-4.51 [facility] Work Phone: Basophil percentageon 2021 Basophils/100 WBC (Bld) 0.6 % 0-1 [facility] Work Phone: Chloride [Moles/Vol] 110 mmol/L 98-107 [facility] Work Phone: Eosinophils/100 WBC (Bld) 3.2 % 0-5 [facility] Work Phone: Glucose [Mass/Vol] 78 mg/dL 74-106 [facility] Work Phone: Neutrophils (Bld) [#/Vol] 3.7 10*3/uL 2.0-7.7 [facility] Work Phone: Neutrophils/100 WBC (Bld) 47.3 % 47-70 [facility] Work Phone: Potassium [Moles/Vol] 4.0 mmol/L 3.5-5.1 [facility] Work Phone: Sodium [Moles/Vol] 141 mmol/L 136-145 [facility] Work Phone: WBC (Bld) [#/Vol] 7.9 10*3/uL 4.4-11.0 [facility] Work Phone: Blood erythrocytes count (nu mber/volume)on 10-21-2021 RBC (Bld) [#/Vol] 3.45 10*6/uL 4.2-5.4 [facility] Work Phone: Blood hemoglobin measurement (mass/volume)on 10-21-2021 Hemoglobin (Bld) [Mass/Vol] 11.3 g/dL 12.0-15.0 [facility] Work Phone: Blood lymphocytes/100 leukoc yteson 10-21-2021 Lymphocytes/100 WBC (Bld) 39.3 % 19-41 [facility] Work Phone: Blood monocytes/100 leukocyt eson 10-21-2021 Monocytes/100 WBC (Bld) 9.0 % 0-10 [facility] Work Phone: Blood platelet mean volumeon 10-21-2021 Platelet mean volume (Bld) [Entitic vol] 9.9 fL 6.2-12.0 [facility] Work Phone: Determination of erythrocyte mean corpuscular volume (MCV)on 10-21-2021 MCV (RBC) [Entitic vol] 105.8 fL 81-99 [facility] Work Phone: Hematocrit Auto (Bld) [Volum e fraction]on 10-21-2021 Hematocrit (Bld) [Volume fraction] 36.5 % 37-47 [facility] Work Phone: Laboratory - Chemistry and C hemistry - challengeon 10-21-2021 CO2 [Moles/Vol] 29.0 mmol/L 21.0-32.0 [facility] Work Phone: Urea nitrogen/Creatinine [Mass ratio] 15.5 mg/mg 10-20 [facility] Work Phone: Laboratory - Hematology and Cell countson 10-21-2021 Erythrocyte distribution width (RBC) [Entitic vol] 50.2 fL 35.1-43.9 [facility] Work Phone: Erythrocyte distribution width (RBC) [Ratio] 13.1 % 11.6-14.6 [facility] Work Phone: Immature granulocytes/100 WBC (Bld) 0.600 % 0.0-0.9 [facility] Work Phone: Comment on above: IG% - Immature Granu locytes (promyelocytes, myelocytes and metamyelocytes) > 1% indicates that a LEFT SHIFT is Present. MCH (RBC) [Entitic mass] 32.8 pg 27.0-32.0 [facility] Work Phone: Nucleated RBC/100 WBC (Bld) [Ratio] 0 % 0-5 [facility] Work Phone: MCHC Auto (RBC) [Mass/Vol]on 10-21-2021 MCHC (RBC) [Mass/Vol] 31.0 g/dL 32-36 [facility] Work Phone: No Panel Informationon 10-21 Estimated GFR (MDRD) Amer 105 mL/min >60 [facility] Work Phone: Comment on above: GFR Calc Estimated GFR (MDRD) Non-Af Amer 87 mL/min >60 [facility] Work Phone: Comment on above: Non- GFR Calc Platelets bldon 10-21-2021 Platelets (Bld) [#/Vol] 314 10*3/uL 150-450 [facility] Work Phone: Serum or plasma calcium moriah urement (mass/volume)on 10-21-2021 Calcium [Mass/Vol] 8.5 mg/dL 8.5-10.1 [facility] Work Phone: Serum or plasma creatinine m easurement (mass/volume)on 10-21-2021 Creatinine [Mass/Vol] 0.71 mg/dL 0.55-1.02 [facility] Work Phone: Comment on above: The validity of the calculated GFR & GFRAA in patients over 70 years has not been determined. Clinical correlation is essential. Serum or plasma urea nitroge n measurement (mass/volume)on 10-21-2021 Urea nitrogen [Mass/Vol] 11 mg/dL 7-18 [facility] Work Phone: Thin prep Papanicolaou smear with manual screeningon 10-21-2021 Thin prep Papanicolaou smear with manual screening 2 5-15 [facility] Work Phone: Laboratory - Chemistry and C hemistry - challengeon 10-19-2021 Cobalamin (Vitamin B12) [Mass/Vol] 1620 pg/mL 211-911 [facility] Work Phone: No Panel Informationon 10-19 Thyroid Stimulating Hormone (TSH) 2.06 uIU/mL 0.358-3.74 [facility] Work Phone: Serum or plasma lamotrigine measurement (mass/volume)on 10-19-2021 lamoTRIgine [Mass/Vol] 3.2 ug/mL 2.0-20.0 [facility] Work Phone: Comment on above: Detection Limit = 1. 0Performed at: - [address] [id number] Director: Marino Mckeon MD, Phone: [phone] Whole blood hemoglobin A1c/t otal hemoglobin ratio (mass fraction)on 10-19-2021 HbA1c (Bld) [Mass fraction] 4.7 % 3.8-5.6 [facility] Work Phone: Comment on above: Normal < 5.7 % Predi abetic 5.7 - 6.4 % Diabetic >or= 6.5 % Please note range changes. Absolute lymphocyte counton 10-14-2021 Lymphocytes Auto (Unsp spec) [#/Vol] 2.95 10*3/uL 0.83-4.51 [facility] Work Phone: Basophil percentageon 2021 Basophils/100 WBC (Bld) 0.6 % 0-1 [facility] Work Phone: Chloride [Moles/Vol] 104 mmol/L 98-107 [facility] Work Phone: Eosinophils/100 WBC (Bld) 3.8 % 0-5 [facility] Work Phone: Glucose [Mass/Vol] 75 mg/dL 74-106 [facility] Work Phone: Neutrophils (Bld) [#/Vol] 3.1 10*3/uL 2.0-7.7 [facility] Work Phone: Neutrophils/100 WBC (Bld) 44.6 % 47-70 [facility] Work Phone: Potassium [Moles/Vol] 3.8 mmol/L 3.5-5.1 [facility] Work Phone: Comment on above: Slight Hemolysis, Re sult may be falsely increased. Sodium [Moles/Vol] 139 mmol/L 136-145 [facility] Work Phone: WBC (Bld) [#/Vol] 7.1 10*3/uL 4.4-11.0 [facility] Work Phone: Blood erythrocytes count (nu mber/volume)on 10-14-2021 RBC (Bld) [#/Vol] 3.73 10*6/uL 4.2-5.4 [facility] Work Phone: Blood hemoglobin measurement (mass/volume)on 10-14-2021 Hemoglobin (Bld) [Mass/Vol] 12.3 g/dL 12.0-15.0 [facility] Work Phone: Blood lymphocytes/100 leukoc yteson 10-14-2021 Lymphocytes/100 WBC (Bld) 41.8 % 19-41 [facility] Work Phone: Blood monocytes/100 leukocyt eson 10-14-2021 Monocytes/100 WBC (Bld) 8.8 % 0-10 [facility] Work Phone: Blood platelet adequacy dete ction by light microscopyon 10-14-2021 Platelets LM Ql (Bld) ADEQUATE ADEQ [facility] Work Phone: Blood platelet mean volumeon 10-14-2021 Platelet mean volume (Bld) [Entitic vol] 11.0 fL 6.2-12.0 [facility] Work Phone: Determination of erythrocyte mean corpuscular volume (MCV)on 10-14-2021 MCV (RBC) [Entitic vol] 104.3 fL 81-99 [facility] Work Phone: Hematocrit Auto (Bld) [Volum e fraction]on 10-14-2021 Hematocrit (Bld) [Volume fraction] 38.9 % 37-47 [facility] Work Phone: Laboratory - Chemistry and C hemistry - challengeon 10-14-2021 CO2 [Moles/Vol] 33.0 mmol/L 21.0-32.0 [facility] Work Phone: Urea nitrogen/Creatinine [Mass ratio] 9.0 mg/mg 10-20 [facility] Work Phone: Laboratory - Hematology and Cell countson 10-14-2021 Erythrocyte distribution width (RBC) [Entitic vol] 48.7 fL 35.1-43.9 [facility] Work Phone: Erythrocyte distribution width (RBC) [Ratio] 12.8 % 11.6-14.6 [facility] Work Phone: Immature granulocytes/100 WBC (Bld) 0.400 % 0.0-0.9 [facility] Work Phone: Comment on above: IG% - Immature Granu locytes (promyelocytes, myelocytes and metamyelocytes) > 1% indicates that a LEFT SHIFT is Present. MCH (RBC) [Entitic mass] 33.0 pg 27.0-32.0 [facility] Work Phone: Nucleated RBC/100 WBC (Bld) [Ratio] 0 % 0-5 [facility] Work Phone: MCHC Auto (RBC) [Mass/Vol]on 10-14-2021 MCHC (RBC) [Mass/Vol] 31.6 g/dL 32-36 [facility] Work Phone: No Panel Informationon 10-14 Estimated GFR (MDRD) Amer 113 mL/min >60 [facility] Work Phone: Comment on above: GFR Calc Estimated GFR (MDRD) Non-Af Amer 93 mL/min >60 [facility] Work Phone: Comment on above: Non- GFR Calc Platelets bldon 10-14-2021 Platelets (Bld) [#/Vol] See comment 150-450 [facility] Work Phone: Comment on above: Please [...] (mass/volume)on 10-14-2021 Calcium [Mass/Vol] 9.1 mg/dL 8.5-10.1 [facility] Work Phone: Serum or plasma creatinine m easurement (mass/volume)on 10-14-2021 Creatinine [Mass/Vol] 0.66 mg/dL 0.55-1.02 [facility] Work Phone: Comment on above: The validity of the calculated GFR & GFRAA in patients over 70 years has not been determined. Clinical correlation is essential. Serum or plasma urea nitroge n measurement (mass/volume)on 10-14-2021 Urea nitrogen [Mass/Vol] 6 mg/dL 7-18 [facility] Work Phone: Thin prep Papanicolaou smear with manual screeningon 10-14-2021 Thin prep Papanicolaou smear with manual screening 2 5-15 [facility] Work Phone: Absolute lymphocyte counton 10-07-2021 Lymphocytes Auto (Unsp spec) [#/Vol] 1.85 10*3/uL 0.83-4.51 [facility] Work Phone: Basophil percentageon 2021 Basophil percentage 0 SEEN /hpf 0-5 [facility] Work Phone: Basophils/100 WBC (Bld) 0.4 % 0-1 [facility] Work Phone: Chloride [Moles/Vol] 104 mmol/L 98-107 [facility] Work Phone: Eosinophils/100 WBC (Bld) 3.4 % 0-5 [facility] Work Phone: Glucose [Mass/Vol] 128 mg/dL 74-106 [facility] Work Phone: Comment on above: Fasting Glucose resu lt greater than or equal to 126 mg/dL suggests DIABETES MELLITUS per A.D.A. criteria. Neutrophils (Bld) [#/Vol] 5.1 10*3/uL 2.0-7.7 [facility] Work Phone: Neutrophils/100 WBC (Bld) 63.2 % 47-70 [facility] Work Phone: Potassium [Moles/Vol] 3.6 mmol/L 3.5-5.1 [facility] Work Phone: Sodium [Moles/Vol] 140 mmol/L 136-145 [facility] Work Phone: WBC (Bld) [#/Vol] 8.1 10*3/uL 4.4-11.0 [facility] Work Phone: Bilirubin Test strip Ql (U)o n 10-07-2021 Bilirubin Ql (U) Negative Negative [facility] Work Phone: Blood erythrocytes count (nu mber/volume)on 10-07-2021 RBC (Bld) [#/Vol] 3.47 10*6/uL 4.2-5.4 [facility] Work Phone: Blood hemoglobin measurement (mass/volume)on 10-07-2021 Hemoglobin (Bld) [Mass/Vol] 11.5 g/dL 12.0-15.0 [facility] Work Phone: Blood lymphocytes/100 leukoc yteson 10-07-2021 Lymphocytes/100 WBC (Bld) 22.8 % 19-41 [facility] Work Phone: Blood monocytes/100 leukocyt eson 10-07-2021 Monocytes/100 WBC (Bld) 10.0 % 0-10 [facility] Work Phone: Blood platelet mean volumeon 10-07-2021 Platelet mean volume (Bld) [Entitic vol] 9.8 fL 6.2-12.0 [facility] Work Phone: Determination of erythrocyte mean corpuscular volume (MCV)on 10-07-2021 MCV (RBC) [Entitic vol] 102.6 fL 81-99 [facility] Work Phone: Hematocrit Auto (Bld) [Volum e fraction]on 10-07-2021 Hematocrit (Bld) [Volume fraction] 35.6 % 37-47 [facility] Work Phone: Ketones Test strip Ql (U)on 10-07-2021 Ketones Ql (U) Negative Negative [facility] Work Phone: Laboratory - Chemistry and C hemistry - challengeon 10-07-2021 CO2 [Moles/Vol] 29.0 mmol/L 21.0-32.0 [facility] Work Phone: Urea nitrogen/Creatinine [Mass ratio] 9.5 mg/mg - [facility] Work Phone: Laboratory - Hematology and Cell countson 10-07-2021 Erythrocyte distribution width (RBC) [Entitic vol] 48.8 fL 35.1-43.9 [facility] Work Phone: Erythrocyte distribution width (RBC) [Ratio] 12.9 % 11.6-14.6 [facility] Work Phone: Immature granulocytes/100 WBC (Bld) 0.200 % 0.0-0.9 [facility] Work Phone: Comment on above: IG% - Immature Granu locytes (promyelocytes, myelocytes and metamyelocytes) > 1% indicates that a LEFT SHIFT is Present. MCH (RBC) [Entitic mass] 33.1 pg 27.0-32.0 [facility] Work Phone: Nucleated RBC/100 WBC (Bld) [Ratio] 0 % 0-5 [facility] Work Phone: MCHC Auto (RBC) [Mass/Vol]on 10-07-2021 MCHC (RBC) [Mass/Vol] 32.3 g/dL 32-36 [facility] Work Phone: Mucus LM Ql (Urine sed)on Mucus Ql (Urine sed) 0 SEEN /hpf [facility] Work Phone: Nitrite Test strip Ql (U)on 10-07-2021 Nitrite Ql (U) Negative Negative [facility] Work Phone: No Panel Informationon 10-07 Estimated Creatinine Clearance Calc 44.24 ml/min [facility] Work Phone: Estimated GFR (MDRD) Amer 86 mL/min >60 [facility] Work Phone: Comment on above: GFR Calc Estimated GFR (MDRD) Non-Af Amer 71 mL/min >60 [facility] Work Phone: Comment on above: Non- GFR Calc Platelets bldon 10-07-2021 Platelets (Bld) [#/Vol] 219 10*3/uL 150-450 [facility] Work Phone: Protein Test strip Ql (U)on 10-07-2021 Protein Ql (U) Negative Negative [facility] Work Phone: Serum or plasma calcium moriah urement (mass/volume)on 10-07-2021 Calcium [Mass/Vol] 8.6 mg/dL 8.5-10.1 [facility] Work Phone: Serum or plasma creatinine m easurement (mass/volume)on 10-07-2021 Creatinine [Mass/Vol] 0.85 mg/dL 0.55-1.02 [facility] Work Phone: Comment on above: The validity of the calculated GFR & GFRAA in patients over 70 years has not been determined. Clinical correlation is essential. Serum or plasma lamotrigine measurement (mass/volume)on 10-07-2021 lamoTRIgine [Mass/Vol] 3.7 ug/mL 2.0-20.0 [facility] Work Phone: Comment on above: Detection Limit = 1. 0Performed at: [facility] [address] [id number] Director: Marino Mckeon MD, Phone: [phone] Serum or plasma urea nitroge n measurement (mass/volume)on 10-07-2021 Urea nitrogen [Mass/Vol] 8 mg/dL 7-18 [facility] Work Phone: Squamous epithelial cells de tection in urine sediment by light microscopyon 10-07-2021 Epithelial cells.squamous LM Ql (Urine sed) 0 SEEN /hpf 5-10 [facility] Work Phone: Thin prep Papanicolaou smear with manual screeningon 10-07-2021 Thin prep Papanicolaou smear with manual screening 7 5-15 [facility] Work Phone: Urine blood detectionon 09-19 RBC Ql (U) Negative Negative [facility] Work Phone: RBC Ql (U) 0 SEEN /hpf 0-5 [facility] Work Phone: Urine clarityon 10-07-2021 Clarity (U) Clear Clear [facility] Work Phone: Urine color determinationon 10-07-2021 Color (U) Yellow Yellow [facility] Work Phone: Urine glucose detectionon Glucose Ql (U) Normal mg/dl Normal [facility] Work Phone: Urine leukocyte esterase det ection by dipstickon 10-07-2021 Leukocyte esterase Test strip Ql (U) Negative Negative [facility] [facility] Work Phone: Urine pHon 10-07-2021 pH (U) 6.0 [pH] 5.0 - 8.0 [facility] Work Phone: Urine sediment bacteria coun t by microscopy (number/high power field)on 10-07-2021 Bacteria LM.HPF (Urine sed) [#/Area] 0 /[HPF] None Seen [facility] Work Phone: Urine specific gravity measu rementon 10-07-2021 Specific gravity (U) [Rel density] 1.010 1.002-1.030 [facility] Work Phone: Urobilinogen Auto test strip Ql (U)on 10-07-2021 Urobilinogen Ql (U) Normal mg/dl Normal [facility] Work Phone: Basophil percentageon 2021 Basophil percentage 25-50 SEEN /hpf 0-5 [facility] Work Phone: Bilirubin Test strip Ql (U)o n 10-05-2021 Bilirubin Ql (U) Negative Negative [facility] Work Phone: Calcium oxalate crystals det ection in urine sediment by light microscopyon 10-05-2021 Calcium oxalate crystals LM Ql (Urine sed) 2+ /hpf [facility] Work Phone: Ketones Test strip Ql (U)on 10-05-2021 Ketones Ql (U) 5 mg/dl Negative [facility] Work Phone: Mucus LM Ql (Urine sed)on Mucus Ql (Urine sed) 0 SEEN /hpf [facility] Work Phone: Nitrite Test strip Ql (U)on 10-05-2021 Nitrite Ql (U) Negative Negative [facility] Work Phone: Protein Test strip Ql (U)on 10-05-2021 Protein Ql (U) 30 mg/dl Negative [facility] Work Phone: Squamous epithelial cells de tection in urine sediment by light microscopyon 10-05-2021 Epithelial cells.squamous LM Ql (Urine sed) 0-5 SEEN /hpf 5-10 [facility] Work Phone: Urine blood detectionon 09-18 RBC Ql (U) 10 /ul Negative [facility] Work Phone: RBC Ql (U) 0-5 SEEN /hpf 0-5 [facility] Work Phone: Urine clarityon 10-05-2021 Clarity (U) Sl Cldy Clear [facility] Work Phone: Urine color determinationon 10-05-2021 Color (U) Yellow Yellow [facility] Work Phone: Urine glucose detectionon Glucose Ql (U) Normal mg/dl Normal [facility] Work Phone: Urine leukocyte esterase det ection by dipstickon 10-05-2021 Leukocyte esterase Test strip Ql (U) 500 /ul Negative [facility] Work Phone: Urine pHon 10-05-2021 pH (U) 5.0 [pH] 5.0 - 8.0 [facility] Work Phone: Urine sediment bacteria coun t by microscopy (number/high power field)on 10-05-2021 Bacteria LM.HPF (Urine sed) [#/Area] 0 /[HPF] None Seen [facility] Work Phone: Urine specific gravity measu rementon 10-05-2021 Specific gravity (U) [Rel density] 1.020 1.002-1.030 [facility] Work Phone: Urobilinogen Auto test strip Ql (U)on 10-05-2021 Urobilinogen Ql (U) Normal mg/dl Normal [facility] Work Phone: Absolute lymphocyte counton 07-29-2021 Lymphocytes Auto (Unsp spec) [#/Vol] 3.13 10*3/uL 0.83-4.51 [facility] Work Phone: Basophil percentageon 2021 Basophils/100 WBC (Bld) 0.8 % 0-1 [facility] Work Phone: Chloride [Moles/Vol] 107 mmol/L 98-107 [facility]: Eosinophils/100 WBC (Bld) 5.5 % 0-5 [facility] Work Phone: Glucose [Mass/Vol] 78 mg/dL 74-106 [facility] Work Phone: Neutrophils (Bld) [#/Vol] 2.1 10*3/uL 2.0-7.7 [facility] Work Phone: Neutrophils/100 WBC (Bld) 32.9 % 47-70 [facility] Work Phone: Potassium [Moles/Vol] 4.1 mmol/L 3.5-5.1 [facility]: Sodium [Moles/Vol] 143 mmol/L 136-145 [facility] Work Phone: WBC (Bld) [#/Vol] 6.3 10*3/uL 4.4-11.0 [facility] Work Phone: Blood erythrocytes count (nu mber/volume)on 07-29-2021 RBC (Bld) [#/Vol] 3.50 10*6/uL 4.2-5.4 [facility] Work Phone: Blood hemoglobin measurement (mass/volume)on 07-29-2021 Hemoglobin (Bld) [Mass/Vol] 11.1 g/dL 12.0-15.0 [facility] Work Phone: Blood lymphocytes/100 leukoc yteson 07-29-2021 Lymphocytes/100 WBC (Bld) 49.6 % 19-41 [facility] Work Phone: Blood monocytes/100 leukocyt eson 07-29-2021 Monocytes/100 WBC (Bld) 10.9 % 0-10 [facility] Work Phone: Blood platelet mean volumeon 07-29-2021 Platelet mean volume (Bld) [Entitic vol] 9.8 fL 6.2-12.0 [facility] Work Phone: Determination of erythrocyte mean corpuscular volume (MCV)on 07-29-2021 MCV (RBC) [Entitic vol] 102.3 fL 81-99 [facility] Work Phone: Hematocrit Auto (Bld) [Volum e fraction]on 07-29-2021 Hematocrit (Bld) [Volume fraction] 35.8 % 37-47 [facility] Work Phone: Laboratory - Chemistry and C hemistry - challengeon 07-29-2021 CO2 [Moles/Vol] 33.0 mmol/L 21.0-32.0 [facility] Work Phone: Urea nitrogen/Creatinine [Mass ratio] 6.5 mg/mg 10-20 [facility] Work Phone: Laboratory - Hematology and Cell countson 07-29-2021 Erythrocyte distribution width (RBC) [Entitic vol] 44.4 fL 35.1-43.9 [facility] Work Phone: Erythrocyte distribution width (RBC) [Ratio] 11.7 % 11.6-14.6 [facility] Work Phone: Immature granulocytes/100 WBC (Bld) 0.300 % 0.0-0.9 [facility] Work Phone: Comment on above: IG% - Immature Granu locytes (promyelocytes, myelocytes and metamyelocytes) > 1% indicates that a LEFT SHIFT is Present. MCH (RBC) [Entitic mass] 31.7 pg 27.0-32.0 [facility] Work Phone: Nucleated RBC/100 WBC (Bld) [Ratio] 0 % 0-5 [facility] Work Phone: MCHC Auto (RBC) [Mass/Vol]on 07-29-2021 MCHC (RBC) [Mass/Vol] 31.0 g/dL 32-36 [facility] Work Phone: No Panel Informationon 07-29 Estimated GFR (MDRD) Amer 96 mL/min >60 [facility] Work Phone: Comment on above: GFR Calc Estimated GFR (MDRD) Non-Af Amer 79 mL/min >60 [facility] Work Phone: Comment on above: Non- GFR Calc Platelets bldon 07-29-2021 Platelets (Bld) [#/Vol] 261 10*3/uL 150-450 [facility] Work Phone: Serum or plasma calcium moriah urement (mass/volume)on 07-29-2021 Calcium [Mass/Vol] 8.6 mg/dL 8.5-10.1 [facility] Work Phone: Serum or plasma creatinine m easurement (mass/volume)on 07-29-2021 Creatinine [Mass/Vol] 0.77 mg/dL 0.55-1.02 [facility] Work Phone: Comment on above: The validity of the calculated GFR & GFRAA in patients over 70 years has not been determined. Clinical correlation is essential. Serum or plasma urea nitroge n measurement (mass/volume)on 07-29-2021 Urea nitrogen [Mass/Vol] 5 mg/dL 7-18 [facility] Work Phone: Thin prep Papanicolaou smear with manual screeningon 07-29-2021 Thin prep Papanicolaou smear with manual screening 3 5-15 [facility] Work Phone: Whole blood hemoglobin A1c/t otal hemoglobin ratio (mass fraction)on 07-29-2021 HbA1c (Bld) [Mass fraction] 5.0 % 3.8-5.6 [facility] Work Phone: Comment on above: Normal < 5.7 % Predi abetic 5.7 - 6.4 % Diabetic >or= 6.5 % Please note range changes. Basophil percentageon 2021 Bilirubin [Mass/Vol] 0.20 mg/dL 0.20-1.00 [facility] Work Phone: Comment on above: For patients on eltr ombopag therapy, use of Dimension [place] TBIL is not recommended. Cholesterol [Mass/Vol] 139 mg/dL <200 [facility] Work Phone: Comment on above: <200 mg/dL Desirable 200-240 mg/dL Borderline >240 mg/dL High Risk Protein [Mass/Vol] 5.8 g/dL 6.4-8.2 [facility] Work Phone: Triglyceride [Mass/Vol] 91 mg/dL [facility] Work Phone: Comment on above: The drugs N-Acetylcy steine and Metamizole may falsely depress this assay.Serum Triglycerides Reference Interval Normal <150 mg/dL Borderline high 150 - 199 mg/dL High 200 - 499 mg/dL Very High > or = 500 mg/dL Direct bilirubinon 2 Bilirubin.direct [Mass/Vol] mg/dL 0.00-0.30 [facility] Work Phone: Laboratory - Chemistry and C hemistry - challengeon 04-20-2021 ALP [Catalytic activity/Vol] 67 U/L 45-117 [facility] Work Phone: ALT [Catalytic activity/Vol] 15 U/L 13-56 [facility] Work Phone: Globulin (S) [Mass/Vol] 2.9 g/dL 2.2-4.2 [facility] Work Phone: Serum or plasma albumin moriah urement (mass/volume)on 04-20-2021 Albumin [Mass/Vol] 2.9 g/dL 3.2-5.0 [facility] Work Phone: Serum or plasma cholesterol in HDL measurement (mass/volume)on 04-20-2021 Cholesterol in HDL [Mass/Vol] 54 mg/dL [facility] Work Phone: Comment on above: The drugs N-Acetylcy steine and Metamizole may falsely depress this assay. Reference Range HDL <40 mg/dL Low HDL Cholesterol HDL >or= 60 mg/dL High HDL Cholesterol Serum or plasma cholesterol in VLDL measurement (mass/volume)on 04-20-2021 Cholesterol in VLDL [Mass/Vol] 18 mg/dL 5-40 [facility] Work Phone: Serum or plasma low density lipoprotein (LDL) cholesterol measurement (mass/volume)on 04-20-2021 Cholesterol in LDL [Mass/Vol] 67 mg/dL 0-130 [facility] Work Phone: Thin prep Papanicolaou smear with manual screeningon 04-20-2021 Thin prep Papanicolaou smear with manual screening 13 U/L 15-37 [facility] Work Phone: Clinical Summary: [facility]on [facility]24-[facility] Clinical Summary: Scanned RO S Summaryon 10-24-2018 endocrine ROS Denies [facility] Work Phone: Gastrointestional review of systems, comment Hemorrhoids [facility] Work Phone: genitourinary review of systems, E&M Denies [facility] Work Phone: Lymphocytes (Bld) [#/Vol] Denies [facility] Work Phone: ROS cardiovascular E[facility]: ROS ENT comment Dentures Jana khan [facility] Work Phone: ROS ENT E&M Complains Jana Shepard [facility] Work Phone: ROS gastrointestinal E&M Complains [facility] Work Phone: ROS general E&M Denies [facility]: ROS Musculoskeletal comments Muscle Cramps,Muscle Weakness,Pain,Joint Pain,Stiffness,Arthri tis [facility] Work Phone: ROS musculoskeletal E&M Complains C rystal [facility] Work Phone: ROS neurological E&M Denies Alexandra nicolette [facility] Work Phone: ROS Psych comment Memory Loss Aruna l [facility] Work Phone: ROS psychiatric E&M Complains Cryst [facility] Work Phone: ROS pulmonary E&M Denies [facility] Work Phone: ROS skin E&M Denies [facility] Work Phone: Office Visit: New - 1st visi t with practice, Rm: 2on 10-24-2018 NEGATED: Highlighted rowMRI (magnetic resonance imaging) history of the Left Hip on 10/10/2018 at [facility] Work Phone: NEGATED: Highlighted rowTobacco smoking status NHIS Tobacco smoking status [facility] Work Phone: NEGATED: Highlighted rowxray history of the Left hip with Pelvis on 09/06/2018 at [facility] Work Phone: Clinical Lists Update: Prelo ad Extendedon 10-20-2018 Tobacco smoking status NHIS Tobacco smoking status [facility] Work Phone: MRI Low Ext Joint w/o Contra st Lefton 10-11-2018 MRI Low Ext Joint w/o Contrast Left Patient Name: CANDI AGUILAR MRI Exam Date/Time 10/10/2018 14:30:01 EDT Exam MRI Low Ext Joint w/o Contrast Left Ordering Physician DO TATUM EUGENE F. Accession Number [id number] CPT4 Codes 80862 () Reason For Exam left hip, eval [...] is otherwise unremarkable on the provided larger [id number] images. Small endplate osteophytes of the spine [...] Transcribed Date and Time: 10/11/2018 8:23 Normal [facility] CR Knee Complete 4+ Views Bi lateralon 09-07-2018 CR Knee Complete 4+ Views Bilateral Patient Name: CANDI AGUILAR Diagnostic Radiology Exam Date/Time 09/06/2018 11:56:00 EDT Exam CR Knee Complete 4+ Views Bilateral Ordering Physician DO TATUM EUGENE F. Accession Number [id number] CPT4 Codes 49905 () Reason For Exam primary osteoarthritis of [...] R Transcribed Date and Time: 09/07/2018 2:13 [facility] CR Hip w/ Pelvis 2 or 3 View s Lefton 09-06-2018 CR Hip w/ Pelvis 2 or 3 Views Left Patient Name: CANDI AGUILAR Diagnostic Radiology Exam Date/Time 09/06/2018 11:56:00 EDT Exam CR Hip w/ Pelvis 2 or 3 Views Left n Ordering Physician DO TATUM EUGENE F. Accession Number [id number] CPT4 Codes 16995 () Reason For Exam left hip pain [...] Transcribed Date and Time: 09/06/2018 4:24 Normal [facility] Culture, urine Bacteria identified Cx Nom (U) Positive [facility] Work Phone: No Panel Information [facility] Vital Signs Date Time Vital Sign Value Performing Clinician Facility 08-06-2024 13:56-0400 Body height 152.[address] Claudia Anderson MD [facility] 08-06-2024 13:56-0400 Body mass index (BMI) [Ratio] 20.7 kg/m2 Dr. Claudia Anderson MD [facility] 08-06-2024 13:56-0400 Body temperature 97.3 [degF] Dr. Claudia Anderson MD [facility] 08-06-2024 13:56-0400 Body weight 48.[address] Claudia Anderson MD [facility] 08-06-2024 13:56-0400 Diastolic blood pressure 76 mm[Hg] Dr. Claudia Anderson MD [facility] 08-06-2024 13:56-0400 Heart rate 60 /min Dr. Claudia Anderson MD [facility] 08-06-2024 13:56-0400 Respiratory rate 15 /min Dr. Claudia Anderson MD [facility] 08-06-2024 13:56-0400 SaO2% (BldA) [Mass fraction] 99 % Dr. Claudia Anderson MD [facility] 08-06-2024 13:56-0400 Systolic blood pressure 127 mm[Hg] Dr. Claudia Anderson MD [facility] 05-07-2024 14:19-0500 Body mass index (BMI) [Ratio] 21.4 kg/m2 Dr. Claudia Anderson MD [facility] 05-07-2024 14:19-0500 Body temperature 97.8 [degF] Dr. Claudia Anderson MD [facility] 05-07-2024 14:19-0500 Body weight 49.[address] Claudia Anderson MD [facility] 05-07-2024 14:19-0500 Diastolic blood pressure 68 mm[Hg] Dr. Claudia Anderson MD [facility] 05-07-2024 14:19-0500 Heart rate 70 /min Dr. Claudia Anderson MD [facility] 05-07-2024 14:19-0500 Respiratory rate 16 /min Dr. Claudia Anderson MD [facility] 05-07-2024 14:19-0500 SaO2% (BldA) [Mass fraction] 96 % Dr. Claudia Anderson MD [facility] 05-07-2024 14:19-0500 Systolic blood pressure 120 mm[Hg] Dr. Claudia Anderson MD [facility] 06-28-2023 15:43-0400 Body mass index (BMI) [Ratio] 21.1 kg/m2 [facility] 06-28-2023 15:43-0400 Body temperature 97.7 [degF] Dr. Claudia Anderson [facility] 06-28-2023 15:43-0400 Body weight 49.[address] [facility] 06-28-2023 15:43-0400 Diastolic blood pressure 74 mm[Hg] Dr. Claudia Anderson [facility] 06-28-2023 15:43-0400 Heart rate 63 /min Dr. Claudia Anderson [facility] 06-28-2023 15:43-0400 Respiratory rate 18 /min Dr. Claudia Anderson [facility] 06-28-2023 15:43-0400 SaO2% (BldA) [Mass fraction] 98 % [facility] 06-28-2023 15:43-0400 Systolic blood pressure 120 mm[Hg] Dr. Claudia Anderson [facility] 06-09-2023 14:00-0400 Diastolic blood pressure 56 mm[Hg] Dr. Claudia Anderson [facility] 06-09-2023 14:00-0400 Heart rate 56 /min Dr. Claudia Anderson [facility] 06-09-2023 14:00-0400 Systolic blood pressure 137 mm[Hg] [facility] 06-09-2023 01:09-0400 Body temperature 97.6 [degF] Dr. Claudia Anderson [facility] 06-09-2023 01:09-0400 Respiratory rate 16 /min Dr. Claudia Anderson [facility] 06-09-2023 01:09-0400 SaO2% (BldA) [Mass fraction] 98 % Dr. Taylor [facility] 06-08-2023 23:04-0400 Body height 152.[address] [facility] 06-08-2023 23:04-0400 Body mass index (BMI) [Ratio] 22.6 kg/m2 Dr. Taylor [facility] 06-08-2023 23:04-0400 Body weight 52.[address] Taylor [facility] 02-28-2023 14:54-0500 Body height 152.[address] Addi Tatum Work Phone: [facility] 02-28-2023 14:54-0500 Body mass index (BMI) [Ratio] 21.2 kg/m2 Dr. Addi Tatum Work Phone: [facility] 02-28-2023 14:54-0500 Body temperature 97.8 [degF] Dr. Addi Tatum Work Phone: [facility] 02-28-2023 14:54-0500 Body weight 49.[address] Addi Tatum Work Phone: [facility] 02-28-2023 14:54-0500 Diastolic blood pressure 90 mm[Hg] Dr. Addi Tatum Work Phone: [facility] 02-28-2023 14:54-0500 Heart rate 55 /min Dr. Addi Tatum Work Phone: [facility] 02-28-2023 14:54-0500 Respiratory rate 17 /min Dr. Addi Tatum Work Phone: [facility] 02-28-2023 14:54-0500 SaO2% (BldA) [Mass fraction] 97 % Dr. Addi Tatum Work Phone: [facility] 02-28-2023 14:54-0500 Systolic blood pressure 120 mm[Hg] Dr. Addi Tatum Work Phone: [facility] 12-15-2022 13:00-0400 Heart rate 78 /min Dr. Claudia Anderson [facility] 12-15-2022 13:00-0400 Respiratory rate 15 /[facility] 12-15-2022 13:00-0400 SaO2% (BldA) [Mass fraction] 93 % Dr. Claudia Anderson [facility] 12-15-2022 11:50-0400 Diastolic blood pressure 57 mm[Hg] [facility] 12-15-2022 11:50-0400 Systolic blood pressure 123 mm[Hg] [facility] 12-15-2022 09:39-0400 Body height 152.[address] [facility] 12-15-2022 09:39-0400 Body mass index (BMI) [Ratio] 22.7 kg/m2 [facility] 12-15-2022 09:39-0400 Body temperature 98.8 [degF] Dr. Claudia Anderson [facility] 12-15-2022 09:39-0400 Body weight 52.[address] Claudia Anderson [facility] 12-02-2022 11:02-0400 Body height 152.[address] Claudia Anderson [facility] 12-02-2022 11:02-0400 Body mass index (BMI) [Ratio] 21.4 kg/m2 [facility] 12-02-2022 11:02-0400 Body weight 49.[address] Claudia Anderson [facility] 11-17-2022 11:47-0400 Body height 152.[address] [facility] 11-17-2022 11:47-0400 Body mass index (BMI) [Ratio] 21.9 kg/m2 Dr. Claudia Anderson [facility] 11-17-2022 11:47-0400 Body temperature 97.8 [degF] Dr. Claudia Anderson [facility] 11-17-2022 11:47-0400 Body weight 50.[address] Claudia Anderson [facility] 11-17-2022 11:47-0400 Diastolic blood pressure 90 mm[Hg] Dr. Claudia Anderson [facility] 11-17-2022 11:47-0400 Heart rate 65 /min Dr. Claudia Anderson [facility] 11-17-2022 11:47-0400 Respiratory rate 16 /min Dr. Claudia Anderson [facility] 11-17-2022 11:47-0400 SaO2% (BldA) [Mass fraction] 95 % [facility] 11-17-2022 11:47-0400 Systolic blood pressure 130 mm[Hg] Dr. Claudia Anderson [facility] 11-09-2022 08:36-0400 Body mass index (BMI) [Ratio] 21.3 kg/m2 [facility] 11-09-2022 08:36-0400 Body temperature 97.8 [degF] Dr. Claudia Anderson [facility] 11-09-2022 08:36-0400 Body weight 49.[address] Claudia Anderson [facility] 11-09-2022 08:36-0400 Diastolic blood pressure 82 mm[Hg] Dr. Claudia Anderson [facility] 11-09-2022 08:36-0400 Heart rate 73 /[facility] 11-09-2022 08:36-0400 Respiratory rate 16 /[facility] 11-09-2022 08:36-0400 SaO2% (BldA) [Mass fraction] 96 % Dr. Claudia Anderson [facility] 11-09-2022 08:36-0400 Systolic blood pressure 106 mm[Hg] Dr. Claudia Anderson [facility] 09-14-2022 14:35-0400 Body temperature 96.9 [degF] Dr. Medardo Mayo Work Phone: 6(625)186-353936 [place] [address] 09-14-2022 14:35-0400 Diastolic blood pressure 61 mm[Hg] Dr. Medardo Mayo Work Phone: 6(324)452-128736 [place] [address] 09-14-2022 14:35-0400 Heart rate 60 /min Dr. Medardo Mayo Work Phone: 3(723)906-466636 [place] [address] 09-14-2022 14:35-0400 Respiratory rate 16 /min Dr. Medardo Mayo Work Phone: 6(091)142-469736 [place] [address] 09-14-2022 14:35-0400 SaO2% (BldA) [Mass fraction] 100 % Dr. Medardo Mayo Work Phone: 8(294)895-750236 [place] [address] 09-14-2022 14:35-0400 Systolic blood pressure 142 mm[Hg] Dr. Medardo Mayo Work Phone: 9(046)443-037936 [place] [address] 09-14-2022 10:13-0400 Body height 152.[address] Medardo Mayo Work Phone: 3(521)854-535636 [place] [address] 09-14-2022 10:13-0400 Body mass index (BMI) [Ratio] 21.4 kg/m2 Dr. Medardo Mayo Work Phone: 7(402)220-526536 [place] [address] 09-14-2022 10:13-0400 Body weight 49.[address] Medardo Mayo Work Phone: 8(634)966-240036 [place] [address] 09-06-2022 08:52-0400 Body mass index (BMI) [Ratio] 21.4 kg/m2 Dr. Medardo Mayo Work Phone: 7(189)579-527636 [place] [address] 09-06-2022 08:52-0400 Body temperature 96.8 [degF] Dr. Medardo Mayo Work Phone: 9(382)714-921736 [place] [address] 09-06-2022 08:52-0400 Body weight 49.[address] Medardo Mayo Work Phone: 4(962)049-166436 [place] [address] 09-06-2022 08:52-0400 Diastolic blood pressure 64 mm[Hg] Dr. Medardo Mayo Work Phone: 8(030)867-062636 [place] [address] 09-06-2022 08:52-0400 Heart rate 71 /min Dr. Medardo Mayo Work Phone: 4(628)332-420536 [place] [address] 09-06-2022 08:52-0400 Respiratory rate 16 /min Dr. Medardo Mayo Work Phone: 0(879)828-552436 [place] [address] 09-06-2022 08:52-0400 SaO2% (BldA) [Mass fraction] 98 % Dr. Medardo Mayo Work Phone: 0(754)239-137136 [place] [address] 09-06-2022 08:52-0400 Systolic blood pressure 96 mm[Hg] Dr. Medardo Mayo Work Phone: 1(920)657-497636 [place] [address] 08-27-2022 21:47-0400 Body height 152.[address] Medardo Mayo Work Phone: 6(286)530-811736 [place] [address] 08-27-2022 21:47-0400 Body mass index (BMI) [Ratio] 22 kg/m2 Dr. Medardo Mayo Work Phone: 0(421)997-599536 [place] [address] 08-27-2022 21:47-0400 Body temperature 97.1 [degF] Dr. Medardo Mayo Work Phone: 5(969)712-555336 [place] [address] 08-27-2022 21:47-0400 Body weight 51.[address] Medardo Mayo Work Phone: 0(053)923-577236 [place] [address] 08-27-2022 21:47-0400 Diastolic blood pressure 57 mm[Hg] Dr. Medardo Mayo Work Phone: 9(359)731-193636 [place] [address] 08-27-2022 21:47-0400 Heart rate 58 /min Dr. Medardo Mayo Work Phone: [facility] 08-27-2022 21:47-0400 Respiratory rate 18 /min Dr. Medardo Mayo Work Phone: [facility] 08-27-2022 21:47-0400 SaO2% (BldA) [Mass fraction] 99 % Dr. Medardo Mayo Work Phone: [facility] 08-27-2022 21:47-0400 Systolic blood pressure 124 mm[Hg] Dr. Medardo Mayo Work Phone: [facility] 07-01-2022 09:58-0400 Body height 152.[address] [facility] 07-01-2022 09:58-0400 Body mass index (BMI) [Ratio] 19.8 kg/m2 [facility] 07-01-2022 09:58-0400 Body temperature 97.8 [degF] [facility] 07-01-2022 09:58-0400 Body weight 45.[address] [facility] 07-01-2022 09:58-0400 Diastolic blood pressure 80 mm[Hg] [facility] 07-01-2022 09:58-0400 Heart rate 71 /min [facility] 07-01-2022 09:58-0400 Respiratory rate 16 /min [facility] 07-01-2022 09:58-0400 SaO2% (BldA) [Mass fraction] 99 % [facility] 07-01-2022 09:58-0400 Systolic blood pressure 118 mm[Hg] [facility] 04-16-2022 03:26-0500 SaO2% (BldA) [Mass fraction] 97 % [facility] 04-15-2022 21:44-0500 Body height 152.4 cm [facility] 04-15-2022 21:44-0500 Body mass index (BMI) [Ratio] 20.7 kg/m2 [facility] 04-15-2022 21:44-0500 Body temperature 97.5 [degF] [facility] 04-15-2022 21:44-0500 Body weight 48.2 kg [facility] 04-15-2022 21:44-0500 Diastolic blood pressure 68 mm[Hg] [facility] 04-15-2022 21:44-0500 Heart rate 63 /min [facility] 04-15-2022 21:44-0500 Respiratory rate 18 /min [facility] 04-15-2022 21:44-0500 Systolic blood pressure 145 mm[Hg] [facility] 02-14-2022 01:29-0500 Heart rate 53 /min [facility] 02-14-2022 01:29-0500 Respiratory rate 22 /min [facility] 02-14-2022 00:14-0500 SaO2% (BldA) [Mass fraction] 97 % [facility] 02-13-2022 22:11-0500 Body height 152.4 cm [facility] Work Phone: 02-13-2022 22:11-0500 Body mass index (BMI) [Ratio] 20.2 kg/m2 [facility] 02-13-2022 22:11-0500 Body temperature 97.6 [degF] [facility] 02-13-2022 22:11-0500 Body weight 47.1 kg [facility] 02-13-2022 22:11-0500 Diastolic blood pressure 64 mm[Hg] [facility] 02-13-2022 22:11-0500 Systolic blood pressure 149 mm[Hg] [facility] 02-01-2022 01:37-0500 Diastolic blood pressure 70 mm[Hg] [facility] 02-01-2022 01:37-0500 Heart rate 58 /min [facility] 02-01-2022 01:37-0500 Respiratory rate 16 /min [facility] 02-01-2022 01:37-0500 SaO2% (BldA) [Mass fraction] 98 % [facility] 02-01-2022 01:37-0500 Systolic blood pressure 134 mm[Hg] [facility] 01-31-2022 23:38-0500 Body height 152.4 cm [facility] Work Phone: 01-31-2022 23:38-0500 Body mass index (BMI) [Ratio] 20.6 kg/m2 [facility] 01-31-2022 23:38-0500 Body temperature 97.5 [degF] [facility] 01-31-2022 23:38-0500 Body weight 47.85 kg [facility] 01-18-2022 21:11-0400 Body temperature 97.8 [degF] [facility] 01-18-2022 21:11-0400 Diastolic blood pressure 78 mm[Hg] [facility] 01-18-2022 21:11-0400 Heart rate 78 /min [facility] 01-18-2022 21:11-0400 Respiratory rate 16 /min [facility] 01-18-2022 21:11-0400 SaO2% (BldA) [Mass fraction] 99 % [facility] 01-18-2022 21:11-0400 Systolic blood pressure 118 mm[Hg] [facility] 01-18-2022 19:14-0400 Body height 152.4 cm [facility] Work Phone: 01-18-2022 19:14-0400 Body mass index (BMI) [Ratio] 21.3 kg/m2 [facility] 01-18-2022 19:14-0400 Body weight 49.6 kg [facility] 11-22-2021 00:21-0400 Diastolic blood pressure 52 mm[Hg] [facility] Work Phone: 11-22-2021 00:21-0400 Heart rate 53 /min [facility] Work Phone: 11-22-2021 00:21-0400 Respiratory rate 16 /min [facility] Work Phone: 11-22-2021 00:21-0400 SaO2% (BldA) [Mass fraction] 97 % [facility] Work Phone: 11-22-2021 00:21-0400 Systolic blood pressure 104 mm[Hg] [facility] Work Phone: 11-21-2021 22:29-0400 Body height 152.4 cm [facility] Work Phone: 11-21-2021 22:29-0400 Body mass index (BMI) [Ratio] 22.1 kg/m2 [facility] Work Phone: 11-21-2021 22:29-0400 Body temperature 97 [degF] [facility] Work Phone: 11-21-2021 22:29-0400 Body weight 51.3 kg [facility] Work Phone: 10-10-2021 06:36-0400 Diastolic blood pressure 60 mm[Hg] [facility] Work Phone: 10-10-2021 06:36-0400 Heart rate 68 /min [facility] Work Phone: 10-10-2021 06:36-0400 Respiratory rate 16 /min [facility] Work Phone: 10-10-2021 06:36-0400 SaO2% (BldA) [Mass fraction] 98 % [facility] Work Phone: 10-10-2021 06:36-0400 Systolic blood pressure 98 mm[Hg] [facility] Work Phone: 10-10-2021 01:04-0400 Body height 162.56 cm [facility] Work Phone: 10-10-2021 01:04-0400 Body mass index (BMI) [Ratio] 19 kg/m2 [facility] Work Phone: 10-10-2021 01:04-0400 Body temperature 97.2 [degF] [facility] Work Phone: 10-10-2021 01:04-0400 Body weight 50.2 kg [facility] Work Phone: 10-07-2021 23:16-0400 Diastolic blood pressure 71 mm[Hg] [facility] Work Phone: 10-07-2021 23:16-0400 Heart rate 78 /min [facility] Work Phone: 10-07-2021 23:16-0400 Respiratory rate 16 /min [facility] Work Phone: 10-07-2021 23:16-0400 SaO2% (BldA) [Mass fraction] 98 % [facility] Work Phone: 10-07-2021 23:16-0400 Systolic blood pressure 124 mm[Hg] [facility] Work Phone: 10-07-2021 18:47-0400 Body height 152.4 cm [facility] Work Phone: 10-07-2021 18:47-0400 Body mass index (BMI) [Ratio] 21.2 kg/m2 [facility] Work Phone: 10-07-2021 18:47-0400 Body temperature 98.3 [degF] [facility] Work Phone: 10-07-2021 18:47-0400 Body weight 49.2 kg [facility] Work Phone: NEGATED: Highlighted [id number] 13:06-0400 BMI (Body Mass Index) 19.4 kg/m2 Hina Esparza LPN [facility] Work Phone: NEGATED: Highlighted [id number] 13:06-0400 Body weight 44.91 kg Hina Esparza LPN [facility] Work Phone: NEGATED: Highlighted [id number] 13:06-0400 Body weight 45 kg Hina Esparza LPN [facility] Work Phone: NEGATED: Highlighted [id number] 13:06-0400 BP Diastolic 76 mm[Hg] Hina Esparza LPN [facility] Work Phone: NEGATED: Highlighted [id number] 13:06-0400 BP Systolic 146 mm[Hg] Hina Esparza LPN [facility] Work Phone: NEGATED: Highlighted [id number] 13:06-0400 BP Systolic 129 mm[Hg] Hina Esparza LPN [facility] Work Phone: NEGATED: Highlighted [id number] 13:06-0400 Height 152.4 cm Hina Esparza LPN [facility] Work Phone: NEGATED: Highlighted [id number] 13:06-0400 Height 152 cm Hina Esparza LPN [facility] Work Phone: NEGATED: Highlighted [id number] 13:06-0400 Pulse (Heart Rate) 60 /min Hina Esparza LPN [facility] Work Phone: Encounters Encounter Date Encounter Type Care Provider Facility Start: 09-03-2024 End: 09-03-[address] Claudia Anderson MD [facility] Work Phone: Start: 09-03-2024 End: 09-03-[address] Kendra Bran MD -Radiology [facility] Work Phone: Start: 09-03-2024 End: 09-03-2024 ambulatory Claudia Anderson Facility:[facility] Start: 08-27-2024 ambulatory Claudia Anderson Facility:[facility] Start: 08-27-[address] Claudia Anderson MD -[facility] Start: 08-22-2024 End: 08-22-[address] Claudia Anderson MD [facility] Work Phone: Start: 08-22-2024 End: 08-22-[address] Medardo Mayo MD -MRI - [facility] Work Phone: Start: 08-22-2024 End: 08-22-2024 ambulatory Claudia Gudla Facility:[facility] Start: 08-15-2024 [facility] Start: 08-15-[address] True Holguin MD -[facility] Start: 08-06-2024 End: 08-06-[address] Medardo Mayo MD -[facility] Work Phone: Start: 08-06-2024 End: 08-06-[address] Claudia Anderson MD [facility] Work Phone: Start: 08-06-2024 End: 08-06-[address] Claudia Anderson MD [facility] Work Phone: Start: 08-06-2024 End: 08-06-[address] Kendra Bran MD -Radiology [facility] Work Phone: Start: 08-06-2024 End: 08-06-2024 ambulatory Claudia Gudla Facility:[facility] Start: 07-12-2024 End: 07-12-[address] True Holguin MD -[facility] Start: 07-12-[address] True Holguin MD -[facility] Start: 07-12-2024 End: 07-12-2024 ambulatory Claudia Gudla Facility:[facility] Start: 06-25-2024 [facility] Start: 06-25-[address] Claudia Anderson MD -[facility] Start: 05-07-2024 End: 05-07-[address] Medardo Mayo MD -[facility] Work Phone: Start: 05-07-2024 End: 05-07-2024 ambulatory Medardo Baddour Facility:[facility] Start: 04-13-2024 ambulatory Claudia Gudla Facility:[facility] Start: 04-13-[address] Claudia Anderson MD -[facility] Start: 02-17-2024 ambulatory Claudia Gudla Facility:[facility] Start: 01-25-2024 End: 01-25-2024 ambulatory Medardo Baddour Facility:[facility] Start: 01-17-2024 End: 01-17-2024 ambulatory Claudia Gudla Facility:[facility] Start: 01-12-2024 End: 01-12-2024 ambulatory Claudia Gudla Facility:[facility] Start: 01-04-2024 End: 01-04-2024 ambulatory Claudia Gudla Facility:[facility] Start: 12-12-2023 End: 12-12-2023 ambulatory Claudia Gudla Facility:[facility] Start: 11-17-2023 End: 11-17-2023 ambulatory Claudia Gudla Facility:[facility] Start: 11-08-2023 End: 11-08-2023 ambulatory Claudia Gudla Facility:[facility] Start: 11-03-2023 End: 11-03-2023 ambulatory Medardo Baddour Facility:[facility] Start: 11-03-2023 End: 11-03-2023 ambulatory Claudia Gudla Facility:[facility] Start: 07-18-[address] Claudia Anderson [facility] Start: 07-13-[address] Claudia Anderson [facility] Start: 07-11-2023 End: 07-11-[address] Claudia Anderson [facility] Work Phone: Start: 06-28-2023 End: 06-28-[address] Claudia Anderson [facility] Work Phone: Start: 06-14-2023 End: 06-14-[address] Claudia Anderson [facility] Work Phone: Start: 06-14-2023 End: 06-14-[address] Claudia Anderson [facility] Work Phone: Start: 06-13-2023 End: 06-13-[address] Claudia Anderson [facility] Work Phone: Start: 06-13-2023 End: 06-13-[address] Claudia Anderson [facility] Start: 06-13-[address] [facility] Start: 06-08-2023 End: 06-09-2023 Emergency department patient visit Dr. Claudia Anderson [facility] Work Phone: Start: 05-30-2023 End: 05-30-[address] [facility] Start: 05-30-2023 End: 05-30-[address] Claudia Anderson [facility] Start: 05-30-[address] [facility] Start: 05-27-2023 End: 05-27-[address] Claudia Anderson [facility] Work Phone: Start: 04-13-2023 End: 04-13-[address] Claudia Anderson [facility] Start: 02-28-2023 End: 02-28-[address] Addi Tatum Work Phone: [facility] Work Phone: Start: 02-28-2023 End: 02-28-[address] Addi Tatum Work Phone: [facility] Work Phone: Start: 02-28-2023 End: 02-28-[address] Addi Tatum Work Phone: [facility] Work Phone: Start: 01-25-2023 End: 01-25-[address] Addi Tatum Work Phone: [facility] Work Phone: Start: 01-25-2023 End: 01-25-[address] Addi Tatum Work Phone: [facility] Start: 01-11-2023 End: 01-11-[address] 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 Claudia Anderson [facility] Work Phone: Start: 12-20-2022 End: 12-20-[address] Claudia Anderson [facility] Start: 12-20-[address] Claudia Anderson [facility] Start: 12-17-2022 End: 12-17-[address] Claudia Anderson [facility] Work Phone: Start: 12-17-2022 End: 12-17-[address] Claudia Anderson [facility] Start: 12-15-2022 End: 12-15-2022 Emergency department patient visit Dr. Claudia Anderson [facility] Work Phone: Start: 12-02-2022 End: 12-02-[address] Claudia Anderson [facility] Work Phone: Start: 11-17-2022 End: 11-17-[address] [facility] Start: 11-17-2022 End: 11-17-[address] Claudia Anderson [facility] Work Phone: Start: 11-17-2022 End: 11-17-[address] Claudia Anderson [facility] Work Phone: Start: 11-17-2022 End: 11-17-[address] [facility] Start: 11-17-2022 End: 11-17-[address] Claudia Anderson [facility] Start: 11-17-[address] [facility] Start: 11-09-2022 End: 11-09-[address] Claudia Anderson [facility] Work Phone: Start: 10-11-2022 End: 10-11-[address] Claudia Anderson [facility] Work Phone: Start: 09-29-2022 End: 09-29-[address] [facility] Start: 09-29-[address] Claudia Anderson [facility] Start: 09-28-2022 End: 09-28-[address] Claudia Anderson [facility] Work Phone: Start: 09-22-2022 End: 09-22-[address] Claudia Anderson [facility] Work Phone: Start: 09-22-2022 End: 09-22-[address] Claudia Anderson [facility] Start: 09-22-[address] [facility] Start: 09-15-2022 End: 09-15-[address] Claudia Anderson [facility] Work Phone: Start: 09-15-2022 End: 09-15-[address] Claudia Anderson [facility] Start: 09-15-[address] [facility] Start: 09-14-2022 Non-patient / Non-visit Dr. Claudia rivera [facility] Start: 09-14-2022 Dr. Medardo roth Work Phone: [facility] Start: 09-14-2022 End: 09-14-2022 Admission to same day surgery center Dr. Claudia Anderson [facility] Start: 09-14-2022 End: 09-14-[address] Medardo Mayo Work Phone: [facility] Work Phone: Start: 09-14-2022 End: 09-14-2022 Dr. Medardo Mayo Work Phone: [facility] Start: 09-08-2022 End: 09-08-[address] Claudia Anderson [facility] Work Phone: Start: 09-08-2022 End: 09-08-[address] Claudia Anderson [facility] Start: 09-08-[address] [facility] Start: 09-08-2022 Dr. Medardo roth Work Phone: [facility] Start: 09-06-2022 End: 09-06-[address] Claudia Anderson [facility] Work Phone: Start: 09-06-2022 End: 09-06-2022 Dr. Medardo Mayo Work Phone: [facility] Start: 09-01-2022 End: 09-01-[address] Medardo Mayo Work Phone: [facility] Work Phone: Start: 09-01-2022 End: 09-01-[address] Claudia Anderson [facility] Start: 09-01-2022 End: 09-01-2022 Dr. Medardo Mayo Work Phone: [facility] Start: 08-27-2022 End: 08-28-2022 Emergency department patient visit Dr. Claudia Anderson [facility] Work Phone: Start: 08-27-2022 End: 08-28-2022 Dr. Medardo Mayo Work Phone: [facility] Start: 08-25-2022 End: 08-25-[address] [facility] Start: 08-25-2022 End: 08-25-[address] Claudia Anderson [facility] Start: 08-25-2022 Dr. Medardo roth Work Phone: [facility] Start: 08-18-2022 End: 08-18-[address] Medardo Mayo Work Phone: [facility] Work Phone: Start: 08-18-2022 End: 08-18-[address] Claudia Anderson [facility] Start: 08-18-2022 End: 08-18-2022 Dr. Medardo Mayo Work Phone: [facility] Start: 08-11-2022 End: 08-11-[address] Medardo Mayo Work Phone: [facility] Work Phone: Start: 08-11-2022 End: 08-11-[address] [facility] Start: 08-11-2022 End: 08-11-2022 Dr. Medardo Mayo Work Phone: [facility] Start: 08-10-2022 End: 08-10-[address] [facility] Start: 08-10-2022 End: 08-10-2022 Dr. Medardo Mayo Work Phone: [facility] Start: 08-04-2022 End: 08-04-[address] [facility] Start: 08-04-2022 End: 08-04-[address] Claudia Anderson [facility] Start: 08-04-2022 End: 08-04-2022 Dr. Medardo Mayo Work Phone: [facility] Start: 07-28-2022 End: 07-28-[address] Claudia Anderson [facility] Start: 07-28-2022 End: 07-28-2022 Dr. Medardo Mayo Work Phone: [facility] Start: 07-21-2022 End: 07-21-[address] Claudia Adnerson [facility] Start: 07-21-[address] [facility] Start: 07-21-2022 End: 07-21-2022 Dr. Medardo Mayo Work Phone: [facility] Start: 07-14-2022 End: 07-14-[address] Medardo Mayo Work Phone: [facility] Work Phone: Start: 07-14-2022 End: 07-14-[address] Medardo Mayo Work Phone: [facility] Start: 07-14-[address] [facility] Start: 07-14-2022 End: 07-14-2022 Dr. Medardo Mayo Work Phone: [facility] Start: 07-07-2022 End: 07-07-[address] [facility] Work Phone: Start: 07-07-2022 End: 07-07-[address] [facility] Start: 07-07-2022 End: 07-07-2022 Dr. Medardo Mayo Work Phone: [facility] Start: 07-01-2022 End: 07-01-[address] Claudia Anderson [facility] Start: 07-01-2022 End: 07-01-2022 Dr. Medardo Mayo Work Phone: [facility] Start: 06-30-2022 End: 06-30-[address] Claudia Anderson [facility] Start: 06-30-2022 Registered Referred [facility] Start: 06-30-2022 End: 06-30-2022 Dr. Medardo Mayo Work Phone: [facility] Start: 06-16-2022 End: 06-16-2022 ambulatory [facility] Work Phone: Start: 06-16-2022 End: 06-16-2022 Departed Referred [facility] Start: 06-16-2022 Registered Referred [facility] Start: 06-16-2022 End: 06-16-2022 Dr. Medardo Mayo Work Phone: [facility] Start: 06-09-2022 End: 06-09-2022 ambulatory [facility] Work Phone: Start: 06-09-2022 End: 06-09-2022 Departed Referred [facility] Start: 06-09-2022 Registered Referred [facility] Start: 06-09-2022 End: 06-09-2022 Dr. Medardo Mayo Work Phone: [facility] Start: 06-04-2022 End: 06-04-2022 Departed Referred [facility] Start: 06-04-2022 Registered Referred [facility] Start: 06-04-2022 End: 06-04-2022 Dr. Medardo Mayo Work Phone: [facility] Start: 06-02-2022 End: 06-02-2022 Departed Referred [facility] Start: 06-02-2022 Registered Referred [facility] Start: 06-02-2022 End: 06-02-2022 Dr. Medardo Mayo Work Phone: [facility] Start: 05-31-2022 End: 05-31-2022 ambulatory [facility] Work Phone: Start: 05-31-2022 End: 05-31-2022 Departed Referred [facility] Start: 05-31-2022 Registered Referred [facility] Start: 05-31-2022 End: 05-31-2022 Dr. Medardo Mayo Work Phone: [facility] Start: 05-26-2022 End: 05-26-2022 ambulatory [facility] Work Phone: Start: 05-26-2022 End: 05-26-2022 Departed Referred [facility] Start: 05-26-2022 Registered Referred [facility] Start: 05-26-2022 End: 05-26-2022 Dr. Medardo Mayo Work Phone: [facility] Start: 05-19-2022 End: 05-19-2022 Departed Referred [facility] Start: 05-19-2022 Registered Referred [facility] Start: 05-19-2022 End: 05-19-2022 Dr. Medardo Mayo Work Phone: [facility] Start: 05-12-2022 End: 05-12-2022 ambulatory [facility] Work Phone: Start: 05-12-2022 End: 05-12-2022 Departed Referred [facility] Start: 05-12-2022 Registered Referred [facility] Start: 05-12-2022 End: 05-12-2022 Dr. Medardo Mayo Work Phone: [facility] Start: 05-11-2022 End: 05-11-2022 ambulatory [facility] Work Phone: Start: 05-11-2022 End: 05-11-2022 Departed Referred [facility] Start: 05-11-2022 Registered Referred [facility] Start: 05-11-2022 End: 05-11-2022 Dr. Medardo Mayo Work Phone: [facility] Start: 05-05-2022 End: 05-05-2022 ambulatory [facility] Work Phone: Start: 05-05-2022 End: 05-05-2022 Departed Referred [facility] Start: 05-05-2022 Registered Referred [facility] Start: 04-19-2022 End: 04-19-2022 ambulatory [facility] Work Phone: Start: 04-19-2022 End: 04-19-2022 Departed Referred [facility] Start: 04-19-2022 Registered Referred [facility] Start: 04-15-2022 End: 04-16-2022 Emergency department patient visit [facility] Start: 03-30-2022 End: 03-30-2022 ambulatory [facility] Work Phone: Start: 03-30-2022 End: 03-30-2022 Departed Referred [facility] Start: 03-30-2022 Registered Referred [facility] Start: 03-29-2022 End: 03-29-2022 ambulatory [facility] Work Phone: Start: 03-29-2022 End: 03-29-2022 Departed Referred [facility] Start: 03-29-2022 Registered Referred [facility] Start: 03-11-2022 Registered Referred [facility] Start: 03-05-2022 Registered Referred [facility] Start: 02-16-2022 Registered Referred [facility] Start: 02-13-2022 End: 02-14-2022 Emergency department patient visit [facility] Start: 02-08-2022 End: 02-08-2022 ambulatory [facility] Work Phone: Start: 02-08-2022 End: 02-08-2022 Departed Referred [facility] Start: 01-31-2022 End: 02-01-2022 Emergency department patient visit [facility] Start: 01-18-2022 End: 01-18-2022 Emergency department patient visit [facility] Start: 12-29-2021 End: 12-29-2021 ambulatory [facility] Work Phone: Start: 12-29-2021 End: 12-29-2021 Departed Referred [place] [id number] Start: 12-29-2021 Registered Referred [facility] 300 Start: 12-23-2021 End: 12-23-2021 Departed Referred [facility] 300 Start: 12-23-2021 Registered Referred [facility] 300 Start: 12-16-2021 Registered Referred [facility] 300 Start: 12-09-2021 Registered Referred [facility] 300 Start: 12-02-2021 End: 12-02-2021 ambulatory [facility] Work Phone: Start: 12-02-2021 End: 12-02-2021 Departed Referred [facility] Start: 12-02-2021 Registered Referred [facility] Start: 11-25-2021 End: 11-25-2021 ambulatory [facility] Work Phone: Start: 11-25-2021 End: 11-25-2021 Departed Referred [facility] Start: 11-25-2021 Registered Referred [facility] Start: 11-21-2021 End: 11-22-2021 Emergency department patient visit [facility] Start: 11-18-2021 End: 11-18-2021 ambulatory [facility] Work Phone: Start: 11-18-2021 End: 11-18-2021 Departed Referred [facility] Start: 11-18-2021 Registered Referred [facility] Start: 11-11-2021 End: 11-11-2021 Departed Referred [facility] Start: 11-11-2021 Registered Referred [facility] Start: 11-04-2021 End: 11-04-2021 ambulatory [facility] Work Phone: Start: 11-04-2021 End: 11-04-2021 Departed Referred [place] [id number] Start: 11-04-2021 Registered Referred [place] [id number] Start: 10-28-2021 End: 10-28-2021 ambulatory [facility] Work Phone: Start: 10-28-2021 End: 10-28-2021 Departed Referred [place] [id number] Start: 10-21-2021 Registered Referred [place] [address] Start: 10-19-2021 Registered Referred [place] [id number] Start: 10-14-2021 End: 10-14-2021 Departed Referred [place] [id number] Start: 10-10-2021 End: 10-10-2021 Emergency department patient visit [facility] Start: 10-07-2021 End: 10-08-2021 Emergency department patient visit [facility] Start: 10-05-2021 End: 10-05-2021 Departed Referred [facility] Start: 10-05-2021 Registered Referred [facility] Start: 07-29-2021 End: 07-29-2021 Departed Referred [facility] Start: 04-20-2021 Registered Referred [facility] Start: 10-24-2018 End: 10-24-2018 Patient encounter procedure Jeramie Moreau MD Work Phone: [facility] Work Phone: Procedures Date Procedure Procedure Detail Performing Clinician Start: 09-03-2024 X-ray of lumbar spin e, two or three views Dr. Claudia Anderson MD Start: 08-22-2024 MRI of brain without contrast Dr. Claudia Anderson MD Start: 08-06-2024 X-ray of lumbar spin e, [...] views Lumbar Spine 2 or 3 Views [facility] Start: 08-06-2024 XR Lumbar spine 2 or 3 Views [facility] Start: 05-07-2024 Patient referral [facility] Work Phone: Start: 06-28-2023 Patient referral [facility] Work Phone: Start: 06-08-2023 [facility] Start: 11-19-2022 Covid-19 Vaccine ( season) Covid-19 Vaccine ( season) [facility] Start: 11-19-2022 Influenza vaccination Influenza Vaccine (#1) [facility] Start: 11-09-2022 Patient referral [facility] Work Phone: Start: 09-14-2022 Anesthesia anorectal procedure ANESTH ANORECTAL SURGERY [facility] Start: 09-14-2022 Hemorrhoidectomy int & xtrnl 2/> column/jerry REMOVE IN/EX HEM GROUPS 2+ [facility] Start: 09-14-2022 Patient discharge [facility] Start: 04-15-2022 [facility] Start: 03-21-2022 Advance Directive Discussion Advance Directive Discussion [facility] Start: 03-21-2022 Depression Assessment Depression Assessment [facility] Start: 10-19-2021 Lamotrigine measurement [facility] Work Phone: Start: 10-19-2021 Thyroid stimulating hormone measurement [facility] Work Phone: Start: 10-19-2021 Vitamin B12 measurement [facility] Work Phone: Start: 10-07-2021 Lamotrigine measurement [facility] Work Phone: Start: 10-24-2018 End: 10-24-2018 Appointment Appointment [facility] Work Phone: Start: 08-29-2016 Bone Density Screening Bone Density Screening [facility] Start: 08-29-2016 Pneumococcal Vaccine: 65+ (1 - PCV) Pneumococcal Vaccine: 65+ (1 - PCV) [facility] Start: 08-29-2001 Shingrix Vaccine (1 of 2) Shingrix Vaccine (1 of 2) [facility] Start: 08-29-1996 Cologuard (FIT-DNA) Cologuard (FIT-DNA) [facility] Start: 08-29-1996 Colonoscopy Colonoscopy [facility] Start: 08-29-1996 Colorectal Cancer Screening Colorectal Cancer Screening [facility] Start: 08-29-[address] COLONOGRAPHY [facility] Start: 08-29-1996 Diabetes Screening Diabetes Screening [facility] Start: 08-29-1996 Fecal Occult Blood Fecal Occult Blood [facility] Start: 08-29-1996 Lipid 1996 panel - Serum or Plasma Lipid Screening [facility] Start: 08-29-1996 SIGMOIDOSCOPY SIGMOIDOSCOPY [facility] Start: 1991 Mammography Mammogram Screening [facility] Start: 08-29-1970 Urine microalbumin profile DTaP,Tdap,Td Vaccine (1 - Tdap) [facility] Start: 08-29-1969 Hepatitis C Screening Hepatitis C Screening [facility] Bacteria identified in Urine by Culture Urine Culture [facility] Blood ammonia measurement [facility] Blood ammonia measurement [facility] Blood ammonia measurement [facility] Folate [Mass/volume] in Serum or Plasma [facility] Folate [Mass/volume] in Serum or Plasma [facility] Lamotrigine measurement [facility] Work Phone: MR Brain WO [facility] MR Brain WO contrast [facility] MR Cervical spine [facility] MR Lumbar spine [facility] Patient Education [facility] Work Phone: Patient referral [facility] Work Phone: PHENobarbital [Mass/volume] in Serum or Plasma [facility] Primidone measurement [facility] Thiamine measurement [facility] Immunizations Immunization Date Immunization Notes Care Provider Fa cility 06-08-2023 tetanus toxoid, redu chandu diphtheria toxoid, and acellular pertussis vaccine, adsorbed Dr. Claudia Anderson [facility] Payers Date Payer Category Payer Medicare [id number] 2023 Unknown [id number] 2023 Unknown [id number] 2023 Unknown 2023 Self-pay [id number] 2020 Medicaid [facility] [employer] [facility] [employer] [facility] [employer] [id number] 2020-Present [phone] [address] [place] [address] Medicaid [id number] 2020 Medicare [facility] [employer] [facility] [employer] [id number] 2020-Present [phone] [address] [place] [address] Medicare [id number] 2020 Unknown [id number] Unknown [id number] Unknown [id number] Unknown [id number] 2.840.1.035316.3.579.2.462 Unknown [id number] 2.840.1.738171.3.579.2.462 Unknown [id number] 2.840.1.555432.3.579.2.462 Unknown [id number] .840.1.199407.3.579.2.462 Unknown [id number] 2.840.1.442095.3.579.2.462 Unknown [id number] 2.840.1.683846.3.579.2.462 Unknown [id number] 2.840.1.921469.3.579.2.462 Unknown [id number] .840.1.979921.3.579.2.462 Unknown [id number] .840.1.300734.3.579.2.462 Unknown [id number] .840.1.957919.3.579.2.462 Unknown [id number] .[id number] Unknown [id number] [id number] Unknown [id number] .840.1.269339.3.579.2.462 Unknown [id number] .840.1.378391.3.579.2.462 Unknown [id number] .840.1.666693.3.579.2.462 Unknown [id number] 2.840.1.379789.3.579.2.462 Unknown [id number] 2.840.1.398139.3.579.2.462 Unknown [id number] ..[id number] Social History Date Type Detail Facility Start: 1950 Sex Assigned At Female [facility] Start: 10-07-2021 End: 02-28-2023 Tobacco smoking status MNIS Unknown if ever smoked [facility] Start: 09-10-2020 Tobacco smoking status NHIS Ex-smoker [facility] History of tobacco use Current smoker [facility] Start: 09-10-2020 Tobacco use and exposure Smokeless tobacco non-user [facility] Start: 12-29-2022 Alcohol intake Lifetime non-d josé (finding) [facility] Start: 12-16-2020 End: 03-17-2021 History of Social function [facility] Start: 12-16-2020 End: 03-17-2021 Tobacco use panel [facility] National Score (1-100), lower number is lower risk Not on file [facility] Start: 1950 Sex Assigned At Not on file [facility] Start: 06-28-2023 Tobacco smoking status NHIS Never smoked tobacco (finding) [facility] NEGATED: Highlighted rowStart: 10-24-2018 End: 10-24-2018 Assertion Former smoker [facility] Work Phone: NEGATED: Highlighted row [facility] Goals Date Patient Goal Desired Activity /State Mental Status Date Assessment Result Facility 09-14-2022 Cognitive function Awake;Alert [facility] Work Phone: 09-14-2022 Cognitive function Voice/Name [facility] Work Phone: 04-15-2022 Cognitive function Voice/Name [facility] Work Phone: 01-18-2022 Cognitive function Voice/Name [facility] Work Phone: Clinical Notes 11-21-2021 to 09-04-2024 Note Date & Type Note Facility 09-04-2024 Radiology Diagnostic study note [facility] Imaging Services [address] [place] [address] Lumbar Spine 2 or 3 Views MR#: [id number] Acct: [id number] Name: CANDI AGUILAR ANN Rep #: [id number] : 1950 F 74 From: Fernanda Mendiola MD PCP: Claudia Anderson MD Status: REG CLI Study:Lumbar Spine 2 or 3 Views Date of Exam: 09/03/24 Exam# [id number] Ordering Dr: Jeffy Bran MD PROCEDURE: LUMBAR SPINE 2 OR 3 VIEWS 09/03/2024 REASON FOR EXAM: FALL TECHNIQUE: LUMBAR SPINE 2 OR 3 VIEWS COMPARISON: 08/06/2024. FINDINGS: Mild osteopenia. Mild S shaped degenerative scoliosis. Grade 1 anterolisthesis of L4 on L5 measuring 4.7 mm. Unchanged mild chronic compression deformity of T11 vertebral bodies. Interval appearance of mild compression deformity of L1 vertebral body. No evidence of associated retropulsion or secondary canal stenosis. Unchanged exaggerated lumbar lordosis. There are diffuse spondylotic changes. Findings are demonstrated to by diffuse disc space narrowing, osteophyte formation and degenerative endplate sclerosis. There is diffuse facet joint arthropathy with secondary bilateral neural foramina narrowing. No acute dislocation is seen. No aggressive lytic or blastic bony lesion is noted. RAD/Lumbar Spine 2 or 3 Views IMPRESSION: Mild osteopenia. Mild S shaped degenerative scoliosis. Grade 1 anterolisthesis of L4 on L5 measuring 4.7 mm. Unchanged mild chronic compression deformity of T11 vertebral bodies. Interval appearance of mild compression deformity of L1 vertebral body. No evidence of associated retropulsion or secondary canal stenosis. Unchanged exaggerated lumbar lordosis. [facility] CC: Dr. Kendra Bran MD; Claudia Anderson MD ~ Technical Designer: Signed [facility] 08-07-2024 Radiology Diagnostic study note [facility] Imaging Services [address] [place] [address] Lumbar Spine 2 or 3 Views MR#: [id number] Acct: [id number] Name: CANDI AGUILAR ANN Rep #: [id number] : 1950 F 73 From: Humberto Rojas MD PCP: Claudia Anderson MD Status: REG CLI Study:Lumbar Spine 2 or 3 Views Date of Exam: 08/06/24 Exam# [id number] Ordering Dr: Jeffy Bran MD PROCEDURE: LUMBAR SPINE 2 OR 3 VIEWS 08/06/2024 REASON FOR EXAM: SPONDYLOSIS WITHOUT MYELOPATHY OR RADICULOPATHY, LUMBAR REGION TECHNIQUE: 2 view(s) of the lumbar spine COMPARISON: 05/27/2023 FINDINGS: 5 emv-ujy-rqpbajl lumbar vertebral body types identified. No acute fracture or malalignment. There is again note of a remote moderate T11 compression deformity with anterior wedging, unchanged. L1-2 moderate disc space narrowing L2-3 uydq-fr-lwqzdyfm disc space narrowing with degenerative endplate change L3-4 ikmjbyoh-wx-vbalpu disc space narrowing with degenerative endplate change L4-5 xsif-au-tindicsn disc space narrowing and degenerative endplate change Lower lumbar facet degenerative changes RAD/Lumbar Spine 2 or 3 Views IMPRESSION: No significant interval change in appearance of multilevel spondylosis/discogenic change as above. Reading Location: [facility] CC: Dr. Kendra Bran MD; Claudia Anderson MD ~ Technical Designer: Signed [facility] 08-06-2024 Evaluation note Diagnosis Onset Date Resolution Dementia acute August 06, 2024 1:52pm Multiple falls acute August 06, 2024 1:52pm Myalgia acute August 06, 2024 1:52pm Abnormality of gait and mobility chronic August 06, 2024 1 :52pm Low back pain chronic August 06, 2 025 1:52pm [facility] Work Phone: 1(953) 246-502902-17-2025 Evaluation note* Diagnosis Onset Date Resolution Status Admit Date Dementia acute May 07, 2024 1:44pm Folate deficiency acute Februar y 2024 1:44pm Myalgia acute May 07, 2024 1:44pm Right shoulder pain acute Febru will 2024 1:44pm Essential tremor chronic May 07, 2024 1:44pm Low back pain chronic May 072024 1:44pm Multiple falls acute August 06, 2024 1:52pm Abnormality of gait and mobility chronic August 06, 2024 1 :52pm [facility] Work Phone: 1(169) [phone] Evaluation note* Diagnosis Onset Date Resolution Status Admit Date Dementia acute May 07, 2024 1:44pm Folate deficiency acute Februar y 2024 1:44pm Myalgia acute May 07, 2024 1:44pm Right shoulder pain acute Febru will 2024 1:44pm Essential tremor chronic May 07, 2024 1:44pm Low back pain chronic May 072024 1:44pm Dementia acute August 06, 2024 1:52pm Multiple falls acute August 06, 2024 1:52pm Myalgia acute August 06, 2024 1:52pm Abnormality of gait and mobility chronic August 06, 2024 1 :52pm Low back pain chronic August 06, 2 025 1:52pm [facility] Work Phone: 1(519) 210-567303-21-2024 Discharge summary Author Bart Mares [facility] June 08, 2023 11:45pm Note Date/Time June 08, 2023 11: 21pm [facility] Medical Records Department [address] [place] [address] Emergency Department Summary 06/08/23 MR#: [id number] Acct: [id number] Name: CANDI AGUILAR Rep #:[id number] : 1950 72 From: Bart Mares MD [...] similar symptoms: Yes Recent Illness/Hospitalization: No PFSH PFSH Medical History Alzheimer's dementia Anxiety Arthritis Asthma [...] dibucaine 1 % rectal ointment 1 applic VA TID PRN hemorrhoids #56 grams 09/28/22[Rx Last [...] There is no clonus or Babinski sign. Audelia Coma Scale: document GCS findings Spontaneous Obeys Commands Oriented 15 Sensorium / Orientation: alert Psych mental status grossly normal and thought process normal Skin Skin Narrative: Contusion abrasion right brow Rashes: no rashes Trauma: abrasion MDM MDM MDM Narrative Medical decision making narrative: With no loss of conscious. Not amnestic on no antithrombotic or anticoagulant other than a baby aspirin per the [place] CT head rule imaging of the head [...] 6RF dibucaine 1 % ointment 1 applic VA TID PRN (Reason: hemorrhoids) Qty: 56 0RF [...] your Primary Care Provider. Call [facility] ([phone]) or report to the closest Emergency Room. Call 911 if necessary. 06/08/23 7563 <Electronically signed by Bart Mares MD> Cosigner Signature (if applicable): CC: Claudia Anderson MD ~ Signed [facility] Work Phone: 1(163) 874-946910-18-2023 NoteHNO ID: [id number] Author: Sabrina Welch MD Service: ? Author [...] all of its relevant components. Sabrina Welch, [facility]10-11-2023 NoteHNO ID: [id number] Author: Sabrina Welch MD Service: ? Author [...] all of its relevant components. Sabrina Welch, [facility]10-11-2023 Instructions* Patient Instructions* Sabrina Welch MD - 12/29/2022 2:02 PM EDT Images from the original note were not included. [facility] History of Present illness Narrative* Sabrina Welch [...] laser posterior capsulotomy were discussed with Candi Jeffy Schreiberpatricia in detail. she appeared to understand and [...] components. Sabrina Welch MD [facility]23 Procedure [facility]06-27-2023 History and physical note Author Dr. Mckeon [facility] September 14, 2022 10:52am Note Date/Time September 14, 2022 10:5 2am [facility] Medical Records Department [address] [place] [address] History & Physical Exam 09/14/22 1051 MR#: [id number] Acct: [id number] Name: CANDI AGUILAR Rep #:[id number] : 1950 72 From: Willy suarez MD PCP: Claudia Anderson MD Status:[facility] Location: [place] [address] History and Physical Date of Admission: 09/14/22 [...] for 5 days. Willy Mckeon MD Pager: [facility] [address] [place] [address], [address] [place] [address] Office: I have examined the patient and the H&P has been reviewed. There are no clinicalchanges since date of exam. 09/14/22 1052 <Electronically signed by Willy Mckeon MD> Cosigner Signature (if applicable): CC: Dr. Willy Mckeon MD; Claudia Anderson MD~ Signed [facility] Work Phone: 1(257) 754-515301-27-[address] Ocampo [facility] April 16, 2022 12:31am Note Date/Time April 15, 2022 1 0:18pm [facility] Medical Records Department [address] [place] [address] Emergency Department Summary 04/15/22 MR#: [id number] Acct: [id number] Name: CANDI AGUILAR Rep #:[id number] : 1950 71 From: David Willams PCP: Dr. Addi Tatum DO Status:RE G ER Location: ED HPI History of Present Illness Chief Complaint: Mental Status Change Informant: EMS and SNF Narrative Narrative: Patient brought in by EMS from [facility] for reported altered mental status throughout [...] 4 times daily from 3 times daily. [facility] Medical History Alzheimer's dementia Anxiety [...] % (Auto) 50.0 Lymph % (Auto) 32.4 [place] % (Auto) 12.1 H Eos % (Auto) [...] Color Urine Clarity Urine pH Ur Specific [place] Urine Protein Urine Glucose (UA) Urine Ketones Urine Occult Blood Urine Nitrite Urine Bilirubin Urine Urobilinogen Ur Leukocyte Esterase Urine RBC Urine WBC Ur Squamous Epith Cells Urine Bacteria Urine Mucus 04/15/22 22:17 WBC RBC Hgb Hct MCV MCH MCHC RDW Std Deviation RDW Coeff of Krystal Plt Count MPV Immature Gran % (Auto) Neut % (Auto) Lymph % (Auto) [place] % (Auto) Eos % (Auto) Baso % [...] Clarity Clear Urine pH 5.0 Ur Specific [place] 1.020 Urine Protein 15 H Urine Glucose [...] Signed: Jackson Garcia MD at 22:53 EST Reading Location ID and State: [address] [place] [address] Tel , Service support , Cervical Spine CT 04/15/22 21:59 IMPRESSION: [...] 22:57 EST Reading Location ID and State: [employer] [place] Tel , Service support , Thoracic Spine [...] 23:05 EST Reading Location ID and State: [employer] [place] Tel , Service support , Chest X-Ray 04/15/22 22:30 IMPRESSION: Few scattered patchy opacities could represent infection the correct clinical setting. Severe compression deformity of T11. Refer to thoracic CT report for more details. Electronically Signed: Jackson Garcia MD at 23:06 EST Reading Location ID and State: [employer] [place] Tel , Service support , Pelvis X-Ray 04/15/22 22:30 IMPRESSION: No evidence of displaced pelvic or hip fracture. Moderate degenerative changes of the bilateral hips. Electronically Signed: Jackson Garcia MD at 23:07 EST Reading Location ID and State: [employer] [facility] [place] Tel , Service support , EKG Initial [...] your Primary Care Provider. Call [facility] ([phone]) or report to the closest Emergency Room. Call 911 if necessary. 04/16/22 0031 <Electronically signed by David Willams> Cosigner Signature (if applicable): CC: Dr. Addi Tatum DO ~ Signed [facility] Work Phone: 1(696) 649-304209-03-2022 Hospital Discharge instructions Additional Instructions Please continue all of your medications as previously prescribed. You will be sore after the fall for typically about 7 to 10 days. If symptoms are lasting longer than this or worsen please return to the ER or see your family doctor for repeat evaluation.[facility] Work Phone: Discharge summary Author Dr. Mckeon [facility] September 14, 2022 1:14pm Note Date/Time September 14, 2022 1:11 pm [facility] Medical Records Department [address] [place] [address] Instructions for Home/Discharge Instructions 09/14/22 1310 MR#: [id number] Acct: [id number] Name: CANDI AGUILAR Rep #:[id number] : 1950 72 From: Willy suarez MD PCP: Claudia Anderson MD Status:[facility] Discharge Instructions Procedure Rectal Surgery Diet Discharge [...] to schedule 2 week follow up appointment. [phone] Test Results: Test results from this visit [...] MD CC: Claudia Anderson MD ~ Signed [facility] Work Phone: evaluation noteNo assessment information available [facility] Work Phone: Evaluation note* Diagnosis Onset Date Resolution Status Low back pain acute Myalgia acute [facility] Work Phone: evaluation note* Diagnosis Onset Date Resolution Status Myalgia acute Abnormality of gait and mobility chronic Alzheimer's dementia chronic Essential tremor chronic Low back pain chronic Lumbar radiculopathy chronic [facility] Work Phone: evaluation note* Diagnosis Onset Date Resolution Status Myalgia acute Abnormality of gait and mobility chronic Alzheimer's dementia chronic Essential tremor chronic Low back pain chronic Lumbar radiculopathy chronic Bleeding hemorrhoids acute [facility] Work Phone: evaluation note* Diagnosis Onset Date Resolution Status Bleeding hemorrhoids acute Bleeding hemorrhoids acute Bleeding hemorrhoids acute Hyperammonemia acute Thoracic compression fracture acute Abnormality of gait and mobility chronic Alzheimer's dementia chronic Essential tremor chronic Low back pain chronic Lumbar radiculopathy chronic [facility] Work Phone: Evaluation note* Diagnosis Onset Date Resolution Status Bleeding hemorrhoids acute Bleeding hemorrhoids acute Bleeding hemorrhoids acute Hyperammonemia acute Thoracic compression fracture acute Abnormality of gait and mobility chronic Alzheimer's dementia chronic Essential tremor chronic Low back pain chronic Lumbar radiculopathy chronic Myalgia acute Rib pain on right side acute Low back pain chronic [facility] Work Phone: evaluation note* Diagnosis Onset [...] right side acute Thoracic compression fracture acute [facility] Work Phone: Evaluation note* Diagnosis Right posterior capsular opacification- Primary After-cataract, unspecified 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 Dry eye syndrome of both eyes Pseudophakia Lens replaced by other means documented in [facility] Diagnosis Onset Date Resolution Status Hyperammonemia acute Thoracic compression fracture acute Abnormality of gait and mobility chronic Alzheimer's dementia chronic Essential tremor chronic Low back pain chronic Lumbar radiculopathy chronic Myalgia acute Rib pain on right side acute Low back pain chronic Rib pain on right side acute Thoracic compression fracture acute [facility] Work Phone: Evaluation note* Diagnosis Onset Date Resolution Status Myalgia acute Right shoulder pain acute Lumbar radiculopathy chronic Acute bilateral low back pain without sciatica acute Calcific tendonitis of left shoulder acute [facility] Work Phone: Evaluation note* Diagnosis Onset Date Resolution Status Acute bilateral low back pain without sciatica acute Calcific tendonitis of left shoulder acute Dementia acute Folate deficiency acute Hyperammonemia acute Myalgia acute Right shoulder pain acute Essential tremor chronic Low back pain chronic [facility] Work Phone: Evaluation note* Diagnosis Onset Date Resolution Status Acute bilateral low back pain without sciatica acute Calcific tendonitis of left shoulder acute Dementia acute Folate deficiency acute Hyperammonemia acute Myalgia acute Right shoulder pain acute Essential tremor chronic Low back pain chronic Left shoulder pain acute [facility] Work Phone: Evaluation note* Diagnosis Onset [...] Right shoulder pain acute Lumbar radiculopathy chronic [facility] Work Phone: Hospital Discharge instructions Additional Instructions Acute on chronic T11 compression fracture found on imagings. CT scan head and neck lumbar spine negative. Urine negative for infection. Lab's are all stable.[facility] Work Phone: Hospital Discharge instructionsAmbulatory Orders* Orthopedics Location: None [facility] Work Phone: Hospital Discharge instructions Additional Instructions Ice to facial contusion and left hip contusion 6-10 times a day [facility]yl[facility]ol [facility]WW[facility] Phone: Reason for referral (narrative)No reason for referral information availableWWVUMedicine [facility] Work Phone: Summary Purpose Family History No Family History Records Found Relationship Condition Age at Onset Recorded Date/T sergio father Cerebrovascular accident (CVA) Unknown grandfather Cerebrovascular accident (CVA) Unknown Advance Directives No Advanced Directives Records Found Advance Directive Response Recorded Date/ Time Living Will No October 07, 2021 6:51pm Power of Digitizer Operator No October 07 6:51pm Advance Directive Response Recorded Date/ Time Living Will No November 21 10:33pm Power of Digitizer Operator No November 21, 2021 10:33pm Advance Directive Response Recorded Date/ Time Living Will No January 18 7:14pm Power of Digitizer Operator No January 18, 2022 7:14pm Advance Directive Response Recorded Date/ Time Living Will No January 31 11:42pm Power of Digitizer Operator No January 31, 2022 11:42pm Advance Directive Response Recorded Date/ Time Living Will No February 13 10:50pm Power of Digitizer Operator No February 13, 2022 10:50pm Advance Directive Response Recorded Date/ Time Living Will No April 15 9:50pm Power of Digitizer Operator No April 15, 2022 9:50pm Advance Directive Response Recorded Date/ Time Living Will No April 15 10:50pm Power of Digitizer Operator No April 15, 2022 10:50pm Advance Directive Response Recorded Date/ Time Living Will No August 27, 2022 1 0:18pm Power of Digitizer Operator No August 27, 2022 10:18pm Advance Directive Response Recorded Date/ Time Living Will No September 09, 2022 11:13am Power of Digitizer Operator No September 09 11:13am Advance Directive Response Recorded Date/ Time Living Will No November 09 9:20am Power of Digitizer Operator No November 09, 2 023 9:20am Advance Directive Response Recorded Date/ Time Living Will No December 15, 2022 9:43am Power of Digitizer Operator No November 9:43am Advance Directive Response Recorded Date/ Time Living Will No December 15, 2022 8:43am Power of Digitizer Operator No November 8:43am Advance Directive Response Recorded Date/ Time Living Will No June 28, 2023 4:46pm Power of Digitizer Operator No June 27 4:46pm Advance Directive Response Recorded Date/ Time Living Will No June 28, 2023 4:46pm Do you have a Healthcare Power of Digitizer Operator? No June 28, 2023 4:46pm Chief Complaint Chief Complaint Description Start Date left hip pain Preliminary chief co mplaint data, not yet signed by the author as of Instructions Instruction Description Start Date Please follow-up with Primar Care Physician or Alcohol Law Enforcement Agent for treatment or adjustment of medication regarding [...] Complaint and Reason for Visit Chief Complaint [facility] Chief Complaint FALL Chief Complaint FALL fall Chief Complaint FALL fall LAB WORK LAB WORK [facility] Chief Complaint [facility]ALL fall LAB WORK LAB WORK [facility] WORK [facility] WORK fall Chief Complaint FALL fall LAB WORK LAB WORK [facility] WORK [facility] WORK [facility] fall Chief Complaint FALL fall LAB WORK LAB WORK [facility] WORK [facility] WORK [facility] fall [facility] WORK Chief Complaint [facility]ALL fall LAB WORK LAB WORK [facility] WORK [facility] WORK [facility]WORK [facility] fall [facility] LAB WORK LAB WORK LABWORK Chief Complaint [facility]ALL fall LAB WORK LAB WORK [facility] WORK [facility] WORK [facility] fall [facility] LAB WORK LAB WORK LABWORK [facility] WORK [facility] WORK Chief Complaint [facility]ALL fall LAB WORK LAB WORK [facility] WORK [facility] WORK [facility]WORK [facility] fall [facility] LAB WORK LAB WORK LABWORK [facility] WORK [facility] WORK FALL Chief Complaint [facility]ALL fall LAB WORK LAB WORK [facility] WORK [facility] WORK [facility] fall [facility] LAB WORK LAB WORK LABWORK [facility] WORK [facility] WORK [facility]ALL fall Chief Complaint [facility] WOR K [facility] fall [facility] LAB WORK LAB WORK LABWORK [facility] WORK [facility] WORK [facility]ALL fall [facility] WORK fall Chief Complaint [facility] WOR K [facility] WORK [facility]ALL fall [facility] WORK fall [facility] LABWORK [facility] altered mental status [facility] Complaint [facility] WOR K [facility] WORK [facility]ALL fall [facility] WORK fall [facility] LABWORK [facility] altered mental status [facility] Complaint [facility] WOR K [facility] WORK FALL fall [facility] WORK fall [facility] LABWORK [facility]WORK [facility] WORK altered mental status Chief Complaint [facility]ALL fall [facility] WORK fall [facility] LABWORK [facility] WORK altered mental status [facility] Chief Complaint [facility]ALL fall [facility] WORK fall [facility] LABWORK [facility] altered mental status [facility] LABWORK Chief Complaint LABWORK [facility] altered mental status [facility]WORK [facility] Chief Complaint LABWORK [facility] altered mental status [facility] LABWORK [facility] LAB[facility] Chief Complaint LABWORK [facility] altered mental status [facility] LABWORK [facility] LABWORK [facility] LABWORK [facility] Chief Complaint LABWORK [facility] altered mental status [facility] LABWORK [facility] LABWORK [facility] LABWORK [facility] LABWORK Chief Complaint [facility] altered mental status [facility] LABWORK [facility] LABWORK [facility] LABWORK [facility] LABWORK [facility] RECURRENT FALLS, ALZHEIMER'S [facility] WORK Reason for Visit Low back pain Myalgia Chief Complaint [facility] altered mental status [facility] LABWORK [facility] LABWORK [facility] WORK LABWORK [facility]WORK RECURRENT FALLS, ALZHEIMER'S [facility] LAB WORK [facility] Reason for Visit Myalgia Abnormality of gait and mobility Alzheimer's dementia Essential tremor Low back pain Lumbar radiculopathy Chief Complaint [facility] LABWORK [facility] WORK [facility] LABWORK [facility]WORK [facility]WORK [facility] WORK LABWORK [facility]WORK RECURRENT FALLS[facility] ALZHEIMER'S [facility] LAB WORK [facility] LAB WORK [facility] WORK [facility] WORK LABWORK NECK BACK PAIN [facility]WORK [facility] WORK [facility] WORK freq falls LABWORK Reason for Visit Myalgia Abnormality of gait and mobility Alzheimer's dementia Essential tremor Low back pain Lumbar radiculopathy Chief Complaint [facility] WOR K [facility] LABWORK [facility]WORK [facility]WORK [facility] WORK LABWORK [facility]WORK RECURRENT FALLS[facility] ALZHEIMER'S [facility] LAB WORK [facility] LAB WORK [facility] WORK [facility] WORK LABWORK NECK BACK PAIN [facility]WORK [facility] WORK [facility] LAB WORK [facility] WORK freq falls LABWORK HEMORRHOIDS LABWORK HEMORRHOIDECTOMY HEMORRHOIDECTOMY Reason for Visit Myalgia Abnormality of gait and mobility Alzheimer's dementia Essential tremor Low back pain Lumbar radiculopathy Bleeding hemorrhoids Chief Complaint [facility] WOR K [facility] WORK LABWORK NECK BACK PAIN [facility]WORK [facility] LAB WORK [facility] LAB WORK [facility] LAB WORK freq falls LABWORK HEMORRHOIDS LABWORK HEMORRHOIDECTOMY HEMORRHOIDECTOMY [facility] WORK LABWORK HEMORRHOIDECTOMY 09/14 LABWORK S/P HEMORRHOIDECTOMY 4 M FU Reason for Visit Bleeding hemorrhoids Bleeding hemorrhoids Bleeding hemorrhoids Hyperammonemia Thoracic compression fracture Abnormality of gait and mobility Alzheimer's dementia Essential tremor Low back pain Lumbar radiculopathy Chief Complaint [facility] [place] LABWORK NECK BACK PAIN [facility] LABWORK [facility] LAB WORK [facility] LAB WORK [facility] WORK freq falls LABWORK HEMORRHOIDS LABWORK HEMORRHOIDECTOMY HEMORRHOIDECTOMY [facility] WORK LABWORK HEMORRHOIDECTOMY 09/14 LABWORK S/P HEMORRHOIDECTOMY 4 M FU TRIGGER POINT INJ eorder Reason for Visit Bleeding hemorrhoids Bleeding hemorrhoids Bleeding hemorrhoids Hyperammonemia Thoracic compression fracture Abnormality of gait and mobility Alzheimer's dementia Essential tremor Low back pain Lumbar radiculopathy Myalgia Rib pain on right side Low back pain Chief Complaint [facility] WOR K [facility] WORK freq falls LABWORK HEMORRHOIDS LABWORK HEMORRHOIDECTOMY HEMORRHOIDECTOMY [facility] WORK LABWORK HEMORRHOIDECTOMY 09/14 LABWORK S/P [...] Chief Complaint LABWORK HEMORRHOIDS LABWORK HEMORRHOIDECTOMY HEMORRHOIDECTOMY [facility] WORK LABWORK HEMORRHOIDECTOMY 09/14 LABWORK S/P HEMORRHOIDECTOMY 4 M FU LABWORK TRIGGER POINT INJ eorder THORASIC Room 3 fall [facility] Reason for Visit Bleeding hemorrhoids Bleeding hemorrhoids Bleeding hemorrhoids Hyperammonemia Thoracic compression fracture Abnormality of gait and mobility Alzheimer's dementia Essential tremor Low back pain Lumbar radiculopathy Myalgia Rib pain on right side Low back pain Rib pain on right side Thoracic compression fracture Chief Complaint HEMORRHOIDS LABWORK HEMORRHOIDECTOMY HEMORRHOIDECTOMY [facility] WORK LABWORK HEMORRHOIDECTOMY 09/14 LABWORK S/P HEMORRHOIDECTOMY 4 M FU LABWORK TRIGGER POINT INJ eorder THORASIC Room 3 fall [facility] LABWORK [facility] WORK Reason for Visit Bleeding hemorrhoids Bleeding hemorrhoids Bleeding hemorrhoids Hyperammonemia Thoracic compression fracture Abnormality of gait and mobility Alzheimer's dementia Essential tremor Low back pain Lumbar radiculopathy Myalgia Rib pain on right side Low back pain Rib pain on right side Thoracic compression fracture Chief Complaint 4 M FU LABWORK TRIGGER POINT INJ eorder THORASIC Room 3 fall [facility]WORK [facility] LAB WORK [facility] LAB WORK [facility] Reason for Visit Hyperammonemia Thoracic compression fracture Abnormality of gait and mobility Alzheimer's dementia Essential tremor Low back pain Lumbar radiculopathy Myalgia Rib pain on right side Low back pain Rib pain on right side Thoracic compression fracture Chief Complaint 4 M FU EORDER [facility] WORK THORACIC SPINE room 4 falls Reason for Visit Myalgia Right shoulder pain Lumbar radiculopathy Acute bilateral low back pain without sciatica Calcific tendonitis of left shoulder Chief Complaint 4 M FU EORDER [facility] WORK THORACIC SPINE room 4 LABWORK falls Reason for Visit Myalgia Right shoulder pain Lumbar radiculopathy Acute bilateral low back pain without sciatica Calcific tendonitis of left shoulder Chief Complaint 4 M FU EORDER [facility] WORK THORACIC SPINE room 4 LABWORK falls [place] A-FIB, TACHYCARDIA Reason for Visit Myalgia Right shoulder pain Lumbar radiculopathy Acute bilateral low back pain without sciatica Calcific tendonitis of left shoulder Chief Complaint [facility] K THORACIC SPINE room 4 LABWORK falls LABWORK [place] A-FIB, TACHYCARDIA Trigger point injections Reason for Visit Acute bilateral low back pain without sciatica Calcific tendonitis of left shoulder Dementia Folate deficiency Hyperammonemia Myalgia Right shoulder pain Essential tremor Low back pain Chief Complaint [facility] K THORACIC SPINE room 4 LABWORK falls LABWORK [place] A-FIB, TACHYCARDIA Trigger point injections RIGHT SHOULDER [facility] WORK [facility] WORK Reason for Visit Acute bilateral low back pain without sciatica Calcific tendonitis of left shoulder Dementia Folate deficiency Hyperammonemia Myalgia Right shoulder pain Essential tremor Low back pain Left shoulder pain Chief Complaint 4 M FU LABWORK TRIGGER POINT INJ eorder THORASIC Room 3 fall [facility] LABWORK [facility] LAB WORK [facility] LAB WORK [facility] LABWORK 4 M FU EORDER Reason for [...] 1:44pm LABWORK June 25, 2024 5:00 am [facility] July 12, 2024 6 :20am [...] back pain August 06, 2024 1:52p m Chief Complaint Admit Date 6 M FU/trigger point May 07, 2024 1:44pm LABWORK June 25, 2024 5:00 am [facility] July 12, 2024 6 :20am TRIGGER POINT INJECTION August 06, 2024 1 :52pm WORSENING GAIT IMBALANCE; MULTIPLE FALLS August 22, 2024 7:59am Chief Complaint Admit Date LABWORK June 25, 2024 5:00 am [facility] July 12, 2024 6 :20am TRIGGER POINT INJECTION August 06, 2024 1 :52pm [facility] August 15, 2024 5:0 0am WORSENING GAIT IMBALANCE; MULTIPLE FALLS August 22, 2024 7:59am LUMBAR XRAY- FALL [place] 16th, 2025 3:48 pm Reason for Visit Admit Date Dementia August 06, 2024 1:52p m Multiple [...] section and content) DATE CREATED AUTHOR 10/28/2018 [facility] DATE CREATED AUTHOR AUTHOR'S ORGANIZ ATION 05/04/2022 [facility] DATE CREATED AUTHOR AUTHOR'S ORGANIZ ATION 01/07/2023 [facility] DATE CREATED AUTHOR AUTHOR'S ORGANIZ ATION 10/16/2024 [facility] Reason for Visit (unrecogniz ed section and [...] Active Start: June 25, 2024 Team Status: Inactive Member Role Status Dates Dr. Claudia Anderson MD Primary Care Provider Active Start: July 12, 2024 End: July 12, 2024 Dr. True DYSON MD Attending Provider Active Start: July 12, 2024 End: July 12, 2024 Team Status: Inactive Member Role Status Dates Dr. Claudia Anderson MD Primary Care Provider Active Start: August 06, 2024 End: August 06, 2024 Dr. Kendra Bran MD Attending Provider Active Start: August 06, 2024 End: August 06, 2024 Dr. Kendra Bran MD Referring Provider Active Start: August 06, 2024 End: August 06, 2024 Team Status: Inactive Member Role Status Dates Dr. Claudia Anderson MD Primary Care Provider Active Start: August 06, 2024 End: August 06, 2024 Dr. Medardo Mayo MD Attending Provider Active Start: August 06, 2024 End: August 06, 2024 Dr. Medardo Mayo MD Referring Provider Active Start: August 06, 2024 End: August 06, 2024 Team Status: Active Member Role Status Dates Dr. Claudia Anderson MD Primary Care Provider Active Start: August 15, 2024 Dr. True DYSON MD Attending Provider Active Start: August 15, 2024 Team Status: Inactive Member Role Status Dates Dr. Claudia Anderson MD Primary Care Provider Active Start: August 22, 2024 End: August 22, 2024 Dr. Medardo Mayo MD Attending Provider Active Start: August 22, 2024 End: August 22, 2024 Dr. Medardo Mayo MD Referring Provider Active Start: August 22, 2024 End: August 22, 2024 Team Status: Active Member Role Status Dates Dr. Claudia Anderson MD Primary Care Provider Active Start: August 27, 2024 Dr. Claudia DYSON MD Attending Provider Active Start: August 27, 2024 Team Status: Inactive Member Role Status Dates Dr. Claudia Anderson MD Primary Care Provider Active Start: September 03, 2024 End: September 03, 2024 Dr. Kendra Bran MD Attending Provider Active Start: September 03, 2024 End: September 03, 2024 Dr. Kendra Bran MD Referring Provider Active Start: September 03, 2024 End: September 03, 2024 Team Status: Inactive Member Role Status Dates Dr. Claudia Anderson MD Primary Care Provider Active Start: May 07, 2024 End: May 07, 2024 Dr. Medardo Mayo MD Attending Provider Active Start: May 07, 2024 End: May 07, 2024 Dr. Medardo Mayo MD Referring Provider Active Start: May 07, 2024 End: May 07, 2024 Team Status: Inactive Member Role Status [...] Active Start: April 13, 2024 Team Status: Active Member Role Status [...] Active Start: August 06, 2024 Team Status: Active Member [...] Primary Care Provider Active Dr. Oniel Valente DO Attending Provider, Emergency Provider Active Team Status: [...] Inactive Member Role Status Dates Dr. Addi Tautm DO Primary Care Provider Active Dr. Medardo Mayo MD Attending Provider, Referring Provider Active Team Status: Inactive Member Role Status Dates Dr. Addi Tatum DO Primary Care Provider Active Medardo DYSON MD Attending Provider Active Team Status: Inactive Member Role Status Dates Dr. Claudia Anderson MD Primary Care Provider Active Dr. Raoul Da Silva , DO Attending Provider, Emergency Pr ovider Active [...] Dr. Shelton Conway MD Attending Provider Active Bariatric Physician Relationship Specialty Start Date End Date Claudia [...] Active True Rader MD Attending Provider Active Source Comments (unrecognize d section and content) In the event this informatio n is protected by the Federal Confidentiality of Alcohol and Drug Abuse Patient Records regulations: The Federal rules restrict any use of the information to criminally investigate or prosecute any alcohol or drug abuse patient.[facility] FOR RECORDS PERTAINING TO PATIENTS WHO ARE [...] BE BASED ON THE PRIMARY CLINICAL RECORDS. [employer] provides no warranty or guarantee of the accuracy or completeness of information in this document.
[2024-10-25 08:53] LABS: Hematocrit 35.9 % (37-47); Hemoglobin 11.3 g/dL (12.0-15.0); Mean Corp Hgb Conc 31.5 g/dL (32-36); Mean Corpuscular Volume 104.4 fL (81-99); Mean Platelet Vol. 11.1 fl (6.2-12.0); Platelet Count 224 K/mm3 (150-450); RBC Distribution Width CV 12.9 % (11.6-14.6); RBC Distribution Width SD 48.9 fl (35.1-43.9); Red Blood Count 3.44 M/mm3 (4.2-5.4); White Blood Count 6.1 K/mm3 (4.4-11.0)
[2024-10-25 09:25] LABS: AST(SGOT) 17 U/L (<=31); Alanine Aminotransfer ALT/SGPT 5 U/L (<=34); Albumin, Serum 3.4 g/dL (3.4-4.8); Alkaline Phosphatase 94 U/L (35-104); Anion Gap 7 (5-15); BUN 9 mg/dL (4-19); BUN/Creat Ratio 11.2 RATIO (10-20); Calcium,Total 8.8 mg/dL (7.6-11.0); Carbon Dioxide 28.4 mmol/L (21.0-32.0); Chloride 106 mmol/L (98-108); Globulin 2.2 g/dL (2.2-4.2); Glucose 82 mg/dL (70-99); Potassium 4.3 mmol/L (3.3-5.1); Vitamin D,25 Hydroxy 55.4 ng/mL (30-100)
== END ==
LOC: OLS.SW 04:00
PROVIDERS: PCP Internal Medicine; Referring Provider Family Medicine; Visit Provider Family Medicine
DX: E46 Unspecified protein-calorie malnutrition (principal); E03.9 Hypothyroidism, unspecified; E55.9 Vitamin D deficiency, unspecified
CPT/HCPCS: 36415; 80053; 82306; 84443; 85027

== ENCOUNTER → 2024-11-21 | Outpatient (CLI) | payer MEDICARE, MEDICAID, SELFPAY ==
--- NOTE | 2024-11-21 16:17 | MRI_ITS ---
PROCEDURE: SPINE LUMBAR (ROUTINE) 11/21/2024 REASON FOR EXAM: AGE-RELATED OSTEOPOROSIS WITH CURRENT PATHOLOGICAL FRACTURE, VERT TECHNIQUE: Procedure Code: MRISPL Modality: MR Procedure: SPINE LUMBAR (ROUTINE) COMPARISON: 09/03/2024 FINDINGS: Bone marrow signal is heterogeneous. There is persistent compression fracture at the superior endplate of T11. There is likely new compression fracture involving the superior endplate of L1 which does not involve the posterior aspect of the vertebral body although is approximately 30% in vertebral body height loss. There is minimal increased STIR signal suggesting this is acute to subacute. The conus is noted posterior to T12. There is minimal grade 1 anterolisthesis of L4 on L5. The paravertebral soft tissues grossly unremarkable. L1-2: There is a concentric disc bulge without significant stenosis. L2-3: There is a mild concentric disc bulge with minimal AP canal diameter narrowing to 9 mm. L3-4: There is degenerative disc space narrowing at this level and a mild concentric disc bulge most pronounced in the right foraminal zone. No significant stenosis. L4-5: There is a concentric disc bulge and bilateral facet arthropathy. There is moderate AP canal diameter narrowing to 7 mm. The nerve root on the right may be contacted by the disc. It is not definitively compressed. L5-S1: There is a broad-based posterior disc bulge which may contact the exiting nerve roots as they exit neural foramina. No definite compression Sacrum: Unremarkable MRI/Spine Lumbar (Routine) IMPRESSION: Compression fracture at L1, proximally 30%, which is new compared with the prev ious study and does exhibit some edema suggesting it is acute to subacute. Old T11 compression fracture. Multilevel degenerative disc disease with mild central canal stenosis at L2-L3. Please see above for additional details by level. Reading [facility]
== END | disposition home or self-care (01) ==
LOC: MRI 16:08
PROVIDERS: Referring Provider Anesthesiology Pain Medicine; Visit Provider Anesthesiology Pain Medicine
DX: M80.08XA Age-related osteoporosis with current pathological fracture, vertebra(e), initial encounter for fracture (principal)
CPT/HCPCS: 72148

== ENCOUNTER → 2025-01-17 05:00 | Outpatient (REF) | payer MEDICARE, MEDICAID, SELFPAY ==
--- OUTSIDE RECORDS SUMMARY | 2025-01-17 05:09 | XMS RPT_ITS | CCD ---
Author Organization [facility] Care Team Providers Care Residential Sales Associate Name Role Phone Jeramie Moreau MD Unavailable [...] Provider Dr. Willy Mckeon Other Provider Dr. Claudia Anderson Primary Care Provider UnavailDr. Claudia Rios Referring Provider Unavailable Dr. Willy Mckeon Attending Provider Dr. Willy Mckeon Referring Provider [phone] Dr. Willy Mckeon Other Provider Dr. Addi [...] Care Provider UnavailDr. Medardo Goodwin Referring Provider Mnoica, Dr. Taylor Referring Provider Unavailable Dr. Piotr Espinal Attending Provider [phone] Dr. Shelton Conway Attending Provider [phone] Monica, Dr. Taylor Primary Care Provider Unavailjeffy Anderson, Dr. Taylor Referring Provider Unavailable Dr. Medardo Mayo Attending Provider Dr. Piotr Espinal Attending Provider Dr. Shelton Conway Attending Provider [phone] Monica, Dr. Taylor Primary Care Provider Unavaila marlon Anderson, Dr. Taylor Referring Provider Unavailable Dr. [...] Taylor Referring Provider Unavailjeffy Anderson MD, Dr. Taylor Primary Care Provider Unava ilgonzalez Streetdla MD, Dr. Taylor Attending Provider Unavailjeffy Anderson MD, Dr. Taylor Primary Care Provider Karina Mayo MD, Dr. Batres Attending Provider Maria Esther PANDA, Dr. Batres Referring Provider Monica PANDA, Dr. Taylor Primary Care Provider Karina Anderson MD, Dr. Taylor Attending Provider Unavailjeffy Anderson MD, Dr. Taylor Referring Provider Unavailjeffy Anderson MD, Dr. Taylor Primary Care Physician Herrera Mayo MD, Dr. Batres Attending Physician Maria Esther PANDA, Dr. Batres Referring Provider [phone] Monica PANDA, Dr. Taylor Attending Physician Unavail able Shant PANDA, Dr. Gardner Attending Physician [phone] Shant PANDA, Dr. Gardner Referring Provider [phone] True Holguin MD Attending Physician Damien Holguin MD, Dr. Biswas Referring Provider Unavail able Gudla, Claudia Nurse Practitioner Unavailable Dr. True Holguin DO Primary Care Physician True June Referring Unavailable True June Attending Unavailable Gudla, Claudia Primary Care Unavailable SulmadoMedardo mcelroy Attending Unavailable SulmadourMedardo Referring Unavailable Gudla, Claudia Primary Care Unavailable Medardo Mayo Referring Unavailable Medardo Mayo Attending Unavailable Gudla, Claudia Primary Care Unavailable Medardo Mayo Attending Unavailable SulmadoMedardo mcelroy Referring Unavailable Gudla, Claudia Primary Care Unavailable Gudla, Claudia Primary Care Unavailable Maria Esther Medardo Referring Unavailable Medardo Mayo Attending Unavailable Kendra Bran Referring Unavailable BasaliKendra Attending Unavailable True Holguin Primary Care Unavailable [place], 1 Consulting Unavailable Kendra Bran Referring Unavailable Kendra Bran Attending Unavailable Gudla, Claudia Primary Care Unavailable BaddourMedardo Attending Unavailable Baddour, Medardo Referring Unavailable Gudla, Claudia Primary Care Unavailable Gudla, Claudia Primary Care Unavailable Gudla OLS, Claudia Attending Unavailable Gudla, Claudia Primary Care Unavailable Gudla OLS, Claudia Attending Unavailable Gudla, Claudia Primary Care Unavailable Gudla OLS, Claudia Attending Unavailable Gudla OLS, Claudia Attending Unavailable Gudla, Claudia Primary Care Unavailable Gudla, Claudia Primary Care Unavailable Gudla KIEL, Claudia Attending Unavailable True June Attending Unavailable Gudla, Claudia Primary Care Unavailable True June Attending Unavailable Gudla, Claudia Primary Care Unavailable Gudla KIEL, Claudia Attending Unavailable Gudla, Claudia Primary Care Unavailable Kendra Bran Referring Unavailable Kendar Bran Attending Unavailable Gudla, Claudia Primary Care Unavailable True Rader Referring Unavailable True Rader Attending Unavailable Gudla, Claudia Primary Care Unavailable Allergies Allergy Classification Reported Allergen(s) Allergy Type Date of Onset Reaction(s) Facility (1 source) Codeine Drug Allergy 9 nausea and vomiting [facility] Work Phone: (20 sources) Codeine; Translations: [CODEINE] Drug Allergy 5 [facility] (1 source) Codeine Drug Allergy 5 [facility] Medications Current Medications Medication Drug Class(es) Dates Sig (Normalized) Sig (Original) acetaminophen 325 mg oral capsule (20 sources) Start: 05-07-2024 take 2 capsules by mouth every four hours as needed for pain Start: 05-07-2024 Start: 02-28-2023 End: 05-07-2024 take 1 capsule [...] 2023 4:34pm take 2 tablets by mo ut every six hours as needed acetaminophen (TYLENOL) 325 mg tablet Indications: PCO (posterior capsular opacification), left Take 650 mg by mouth every 6 hours as needed. 0 Active Comment on above: Take 650 mg by mouth every 6 hours as needed. aluminum hydroxide 40 mg/ml / magnesium hydroxide 40 mg/ml oral suspension (6 sources) Start: 05-07-2024 take 1 mL by mouth every four hours as needed ascorbic acid 500 mg oral tablet (6 sources) Vitamin C Start: 05-07-2024 take 1 tablet by mouth once daily aspirin 81 mg delayed release oral tablet (20 sources) Platelet Aggregation Inhibitor, Nonsteroidal Anti-inflammatory Drug Start: 01-18-2022 take 1 tablet by mouth once daily aspirin (ASPIR-8 1 ORAL) Take by mouth. 0 Active Comment on above: Take by mouth. atorvastatin 10 mg oral tablet (20 sources) HMG-CoA Reductase Inhibitor Start: 01-18-2022 take 1 tablet by mouth at bedtime Comment on above: Take 10 mg by mouth once daily. bisacodyl 10 mg rectal suppository (12 sources) Stimulant Laxative Start: 05-07-2024 Start: 05-07-2024 take 1 tablet by mouth once da alla as needed busPIRone hydrochloride 15 m g oral tablet (20 sources) Start: 01-25-2024 take 1 tablet by kane th three times daily Start: 09-09-2022 End: 01-25-2024 take 7.5 mg [...] 18, 2022 12:00am July 01, 2022 10:49am ANXIETY Start: 11-19-2019 busPIRone HCl 30 mg tablet Increase to 1 q AM and One q pm 0 11/19/2019 Active Start: 10-20-2018 BUSPIRONE HCL 30 MG TABS 1/2 tablet in AM and 1 tablet in PM BUSPIRONE HCL [id number] Kenia Jones LPN Comment on above: Increase to 1 q AM a nd One q pm carboxymethylcellulose sodiu m 5 mg/ml / glycerin 9 mg/ml ophthalmic solution (7 sources) Non-Standardized Chemical Allergen Start: 05-07-2024 take 0.5-0.9 drop(s) into the eye(s) at bedtime Carboxymethylcel lulose-Glycern (REFRESH RELIEVA) 0.5-0.9 % drop 1 Drop as needed. 0 Active Comment on above: 1 Drop as needed. cetirizine hydrochloride 10 mg oral tablet (19 sources) Histamine-1 Receptor Antagonist Start: 01-18-2022 cholecalciferol 0.125 mg oral capsule (6 sources) Vitamin D Start: 08-06-2024 take 1 capsule by mouth once daily dibucaine 0.01 mg/mg rectal ointment (20 sources) Standardized Chemical Allergen Start: 09-28-2022 docusate sodium 100 mg oral capsule (20 sources) Start: 05-07-2024 take 1 capsule by mouth twice daily Start: 07-01-2022 End: 05-07-2024 take 1 capsule [...] docusate sodium 50 mg / sennosides, [facility] living 8.6 mg oral tablet (20 sources) Start: 05-07-2024 Start: 01-18-2022 End: 05-07-2024 Sennosides-Docusate Sodium ( Senna Plus) 8.6-50 mg Tablet Discontinued 1 {tbl} PO TWICE A DAY as needed for CONSTIPATION January 18, 2022 12:00am May 07, 2024 3:06pm Start: 01-18-2022 donepezil hydrochloride 10 m g oral tablet (20 sources) Start: 11-19-2019 End: 04-08-2029 take 1 tablet by mouth at bedtime Start: 10-20-2018 ARICEPT 10 MG TABS 1 tablet daily DONEPEZIL HCL [id number] Kenia Jones LPN Comment on above: Take 10 mg by mouth. folic acid 1 mg oral tablet (20 sources) Start: 05-07-2024 take 1 tablet by mouth once daily Start: 11-09-2022 End: 12-02-2022 take 1 tablet by mouth once daily Folic Acid 1 mg tablet Discontinued 1 mg PO DAILY 17 09November 09, 2022 12:00am December 02, 2022 11:10am gabapentin 300 mg oral capsule (20 sources) Anti-epileptic Agent Start: 05-07-2024 take 1 capsule by mouth three times daily Start: 07-01-2022 End: 05-07-2024 take 1 capsule [...] a day. glucagon (rdna) 1 mg injection (7 sources) Antihypoglycemic Agent Start: 05-07-2024 glucagon (GVOKE HYPOPEN) 0.5 mg/0.1 mL auto-injector Inject 0.5 mg subcutaneously as needed. 0 Active Comment on above: Inject 0.5 mg subcut aneously as needed. glucose 0.4 mg/mg oral gel (7 sources) Start: 05-07-2024 dextrose (GLUCOS E GEL ORAL) Take by mouth. 0 Active Comment on above: Take by mouth. guaiFENesin 20 mg/ml oral solution (20 sources) Start: 07-01-2022 take 200 mg by mouth every four hours as needed for cough levothyroxine sodium 0.05 mg oral capsule (20 sources) l-Thyroxine Start: 07-01-2022 take 1 capsule by mouth once daily levothyroxine so dium (LEVOTHYROXINE ORAL) Take 15 mg by mouth. 0 Active Comment on above: Take 15 mg by mouth. lidocaine 0.04 mg/mg medicat ed patch (20 sources) Antiarrhythmic, Amide Local Anesthetic Start: 05-07-2024 Start: 01-18-2022 End: 02-28-2023 Lidocaine (Lidocaine Pain Re lief) 4 % Adhesive Patch,Medicated Discontinued 1 NMA TOPICAL DAILY January 18, 2022 12:00am February 28, 2023 4:32pm PAIN Start: 01-18-2022 loperamide hydrochloride 2 mg oral tablet (6 sources) Opioid Agonist Start: 05-07-2024 take 1 tablet by kane th every twenty-four hours loratadine 10 mg oral capsule (20 sources) Start: 09-09-2022 take 1 capsule by mo [facility] once daily Start: 01-22-2020 loratadine (CL ARITIN) 10 mg tablet Take 10 mg by mouth. 0 01/22/2020 Active Comment on above: Take 10 mg by mouth. magnesium hydroxide 80 mg/ml oral suspension (7 sources) Start: 05-07-2024 take 1 mL by mouth once daily as needed Start: 05-07-2024 take 1 mL by mouth o nce daily as needed Magnesium Hydroxide (Milk Of Magnesia) 400 mg/5 mL suspension Active 30 mL PO daily as needed May 07, 2024 1:00am magnesium hydrox jie (MILK OF MAGNESIA ORAL) Take 30 mL by mouth. 0 Active Comment on above: Take 30 mL by mouth. melatonin 10 mg oral capsule (20 sources) Start: 02-28-2023 take 1 capsule by mouth at bedtime Start: 07-01-2022 End: 02-28-2023 take 1 capsule by mouth at bedtime Melatonin 3 mg capsule Discontinued 3 mg PO BEDTIME July 01, 2022 12:00am February 28, 2023 4:18pm Start: 07-01-2022 melatonin 10 mg tab Take 10 mg by mouth. 0 Active Comment on above: Take 10 mg by mouth. memantine hydrochloride 10 mg oral tablet (20 sources) R-rjphzf-O-aspartate Receptor Antagonist Start: 01-18-2022 End: 07-01-2022 take 1 tablet by mouth twice daily in the morning Start: 01-18-2022 End: 07-01-2022 take 20 mg by mouth once daily Memantine Discontinued 20 MG PO DAILY January 18, 2022 12:00am July 01, 2022 10:53am Start: 01-22-2020 End: 07-01-2022 take 2 tablets by mouth once daily Memantine 10 mg Tablet Discontinued 20 mg PO DAILY January 18, 2022 12:00am July 01, 2022 10:53am ALZHEIMERS Start: 10-20-2018 NAMENDA 10 MG TABS 1 tablet daily MEMANTINE HCL [id number] Kenia Jones LPN Comment on above: 2 q AM menthol 100 mg/ml / methyl salicylate 150 mg/ml topical cream (2 sources) Start: 11-05-2024 mineral oil 1000 mg/ml enema (6 sources) Start: 05-07-2024 Multivitamin preparation (16 sources) Start: 01-18-2022 take 1 tablet by mouth once daily Multivitamin Active 1 TABLET PO DAILY January 17, 2022 11:00pm Start: 01-18-2022 take 1 tablet by kane once daily Multivitamin Active 1 TABLET PO DAILY January 18, 2022 12:00am omeprazole 20 mg delayed release oral capsule (20 sources) Proton Pump Inhibitor Start: 07-01-2022 take 1 capsule by mouth once daily 24 hr oxybutynin chloride 10 mg extended release oral tablet (20 sources) Cholinergic Muscarinic Antagonist Start: 01-18-2022 take 1 tablet by mouth twice daily Start: 11-19-2019 oxybutynin (DI TROPAN) 5 mg tablet Take 5 mg by mouth. 0 11/19/2019 Active Start: 10-20-2018 OXYBUTYNIN CHL ORIDE 5 MG TABS 1 tablet 3 times daily OXYBUTYNIN CHLORIDE [id number] Kenia Jones LPN Comment on above: Take 5 mg by mouth. phenylephrine hydrochloride 25 mg/ml ophthalmic solution (1 source) alpha-1 Adrenergic Agonist Start: 3 End: 3 PHENYLephrine 2.5 % 1 Drop (AK-DILATE, JANUSZ-SYNEPHRINE) primidone 50 mg oral tablet (20 sources) Anti-epileptic Agent Start: 2 End: 5 take 1 tablet by mouth twice daily Start: 01-18-2022 take 150 mg by mouth [...] take 1 tablet by mouth twice daily take 1 tablet by kane th three times daily propranolol (INDERAL) 20 mg tablet Take 20 mg by mouth three times a day. 0 Active Comment on above: Take 20 mg by mouth three times a day. traZODone hydrochloride 100 mg oral tablet (20 sources) Serotonin Reuptake Inhibitor Start: 08-06-2024 take 2 tablets by mouth at bedtime as needed Start: 07-01-2022 End: 08-06-2024 take 1 tablet by mouth at bedtime Trazodone 150 mg tablet Discontinued 150 mg PO AT BEDTIME July 01, 2022 1:09pm August 06, 2024 2:18pm INSOMNIA Start: 07-01-2022 Trazodone Acti ve 150 MG [...] 01, 2022 10:46am July 01, 2022 1:11pm INSOMNIA Start: 01-18-2022 End: 07-01-2022 take 225 mg by mouth at bedtime Trazodone Discontinued 225 MG PO AT BEDTIME July 01, 2022 9:46am July 01, 2022 12:11pm Start: 01-18-2022 End: 07-01-2022 Start: 11-19-2019 traZODone (AUDELIA YREL) 100 mg tablet One q 9 pm 0 11/19/2019 Active Start: 10-20-2018 TRAZODONE HCL 100 MG TABS 1 tablet daily TRAZODONE HCL [id number] Kenia Robert ROJAS Comment on above: One q 9 pm tropicamide 10 mg/ml ophthalmic solution (1 source) Anticholinergic Start: 12-30-19 End: 12-31-19 tropicamide 1 % 1 Drop (MYDRIACYL) 24 hr venlafaxine 75 mg extended release oral capsule (20 sources) Serotonin and Norepinephrine Reuptake Inhibitor Start: 01-19-20 take 1 capsule by mouth once daily Start: 01-18-2022 take 1 capsule by mouth once d aily Comment on above: Take 150 mg by mouth once daily. vitamin b12 1 mg oral capsule (20 sources) Vitamin B12 Start: 11-05-2024 take 1 capsule by mouth once daily Start: 01-18-2022 End: 07-01-2022 take 1 tablet by mouth once daily Cyanocobalamin (Vitamin B-12) (Vitamin B-12) 500 mcg Tablet Discontinued 500 ug PO DAILY January 18, 2022 12:00am July 01, 2022 10:49am SUPPLEMENT (3 sources) Start: 01-18-2022 Completed/Discontinued Medications Medication [...] mg / clavulanate 125 mg oral tablet (20 sources) Penicillin-class Antibacterial Start: 09-28-2022 End: 12-02-2022 Amoxicillin-Pot Clavulanate (Augmentin) 500-125 mg tablet Discontinued 1 {tbl} PO TWICE A DAY 14 0 September 28, 2022 12:00am December 02, 2022 11:06am clonazePAM 0.5 mg oral tablet (20 sources) Benzodiazepine Start: 01-18-2022 End: 07-01-2022 take 1 tablet by mouth three times daily Clonazepam 0.5 mg Tablet Discontinued 0.5 mg PO THREE TIMES A DAY January 18, 2022 12:00am July 01, 2022 9:56am ANXIETY Start: 01-18-2022 End: 07-01-2022 escitalopram 10 mg [...] tablet (20 sources) Nonsteroidal Anti-inflammatory Drug Start: End: take 1 tablet by mouth three times [...] by mouth every 6 hours as needed. ketoconazole 20 mg/ml medicated shampoo (6 sources) Azole Antifungal Start: 5 End: 5 Ketoconazole 2 % shampoo Discontinued 1 NMA TOPICAL TWICE A WEEK May 07, 2024 1:00am November 05, 2024 2:42pm ammonium lactate 120 mg/ml topical cream (20 sources) Start: 2 End: 3 Ammonium Lactate 12 % Cream Discontinued 1 NMA TOPICAL TWICE A DAY January 18, 2022 12:00am July 01, 2022 10:48am lactulose 667 mg/ml oral solution (20 sources) Osmotic Laxative Start: 3 End: 4 take 1 mL by mouth once daily Lactulose 10 gram/15 mL solution Discontinued 15 mL PO DAILY 473 6 November 09, 2022 12:00am June 29, 2023 11:27am Start: 11-09-2022 End: 06-29-2023 take 1 mL by mouth once daily Lactulose 10 gram/15 mL solution Discontinued 15 mL PO DAILY 473 6 November 09, 2022 12:00am June 29, 2023 [...] Active 15 ML PO DAILY 473 November 08, 2022 11:00pm Start: 11-09-2022 take [...] 18, 2022 12:00am July 01, 2022 10:47am BIPOLAR DISORDER Start: 01-18-2022 End: 07-01-2022 take 1 tablet by mouth once daily Lamotrigine 50 mg Tablet Extended Release 24hr Discontinued 50 mg PO DAILY January 18, 2022 12:00am July 01, 2022 10:48am BIPOLAR DISORDER lifitegrast 50 mg/ml ophthalmic solution (1 source) Lymphocyte Function-Associated Antigen-1 Antagonist lifitegrast (XIIDRA) 5 % ophthalmic drops Use 1 Drop in eyes. 0 Active Comment on above: Use 1 Drop in eyes. linaclotide 0.072 mg oral capsule (20 sources) Guanylate Cyclase-C Agonist Start: 023 End: [...] mouth . meloxicam 7.5 mg oral tablet (18 sources) Nonsteroidal Anti-inflammatory Drug Start: 5 End: 5 take 1 tablet by mouth twice daily as needed for pain Meloxicam 7.5 mg tablet Discontinued 7.5 mg PO TWICE A DAY as needed for pain 60 5 July 31, 2024 4:03pm August 06, 2024 2:18pm naproxen sodium 220 mg oral tablet (20 sources) Nonsteroidal Anti-inflammatory Drug Start: 2 End: 3 take 1 tablet by mouth twice daily Naproxen Sodium (Aleve) 220 mg Tablet Discontinued 220 mg PO TWICE A DAY January 18, 2022 12:00am July 01, 2022 9:56am PAIN Start: 01-18-2022 End: 11-09-2022 take 2 tablets by mouth twice daily Naproxen Sodium (Aleve) 220 mg tablet Discontinued 440 mg PO TWICE A DAY July 01, 2022 9:50am November 09, 2022 7:27pm PAIN oxyCODONE hydrochloride 5 mg oral tablet (20 sources) Opioid Agonist Start: 09-14-2022 End: 12-02-2022 take 5-10 mg by mouth every six hours as needed for pain Oxycodone 5 mg tablet Discontinued 5 - 10 mg PO EVERY 6 HOURS as needed for pain 30 5 0 September 14, 2022 December 02, 2022 11:12am Bleeding hemorrhoids Unspecified hemorrhoids red yeast rice 600 mg oral capsule [...] 18, 2022 12:00am July 01, 2022 10:52am DEPRESSION/ANXIETY Start: 01-18-2022 End: 07-01-2022 Start: 10-20-2018 ZOLOFT 100 MG TABS 1 tablet daily SERTRALINE HCL [id number] Kenia Robert ROJAS sodium phosphate,mono-dibasic (FLEET ENEMA RECTAL) (1 source) [...] sprinkle Discontinued 125 mg PO AT BEDTIME 30 30 June 29, 2023 11:36am July 28, 2023 12:00am July 29, 2023 12:06am Discontinue divalproex DR 250mg nightly. Take divalproex DR 125mg nightly for 1 month then discontinue Divalproex DR. Start: 06-29-2023 End: 07-29-2023 Divalproex Discontinued 125 MG PO AT BEDTIME 30 June 29, 2023 11:36am July 29, 2023 [...] Discontinued 125 mg PO TWICE A DAY November 09, 2022 12:00am December 02, 2022 [...] Active Comment on above: Take by mouth. Problems Active Problems Problem Classification Problem Date Documented Date Episodic/Chronic Anxiety disorders (1 source) Generalized anxiety disorder; Translations: [Generalized anxiety disorder] Onset: 04-13-2024 Chronic Cataract (2 sources) After-cataract of right eye; Translations: [Other secondary cataract, right eye] 12-29-2022 Chronic Delirium, dementia, and amnestic and other cognitive disorders (20 sources) Dementia; Translations: [Unspecified dementia without behavioral disturbance] Onset: 12-17-2024 04-16-2022 Chronic Comment on above: ON MED Disorders of lipid metabolism (1 source) Hyperlipidemia, unspecified; Translations: [Hyperlipidemia, unspecified] Onset: 12-07-2024 Chronic E Codes: Fall (20 sources) Fall; Translations: [Unspecified fall, initial encounter] 10-18-2021 Episodic Hemorrhoids (20 sources) Bleeding hemorrhoids; Translations: [Unspecified hemorrhoids] 09-06-2022 Episodic Mood disorders (2 sources) Bipolar disorder, unspecified; Translations: [Major depressive disorder, recurrent, moderate] Onset: 04-13-2024 Chronic Nutritional deficiencies (4 sources) Unspecified protein-calorie malnutrition; Translations: [Vitamin D deficiency, unspecified] Onset: 09-10-2024 Chronic Nutritional deficiencies (15 sources) Folic acid deficiency; Translations: [Deficiency of other specified B group vitamins] Onset: 12-17-2024 06-29-2023 Episodic Other aftercare (1 source) 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; Translations: [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] Onset: 11-25-2024 Episodic Other connective tissue disease (20 sources) Muscle pain; Translations: [Myalgia, unspecified site] 07-01-2022 Episodic Other connective tissue disease (19 sources) Myalgia, unspecified site; Translations: [Myalgia and myositis, unspecified] Onset: 12-17-2024 07-01-2022 Episodic Other connective tissue disease (11 sources) Calcific tendinitis of left shoulder; Translations: [Calcific tendinitis of left shoulder] 05-27-2023 Episodic Other connective tissue disease (5 sources) Calcific tendinitis of left shoulder; Translations: [Calcifying tendinitis of shoulder] 05-27-2023 Episodic Other connective tissue disease (11 sources) Recurrent falls ; Translations: [Repeated falls] 08-06-2024 Episodic Other diseases of bladder and [...] and other specified forms of tremor] Onset: 12-17-2024 07-01-2022 Chronic Other injuries and conditions due to external causes (20 sources) Closed injury of head; Translations: [Unspecified injury of head, initial encounter] 10-18-2021 Episodic Other injuries and conditions due to external causes (20 sources) Contusion of multiple sites; Translations: [Unspecified multiple injuries, initial encounter] 02-09-2022 Episodic Other lower respiratory disease (17 sources) Rib pain; Translations: [Pleurodynia] 11-17-2022 Episodic Other nervous system disorders (1 source) Other chronic pain; Translations: [Other chronic pain] Onset: 12-17-2024 Chronic Other nervous system disorders (20 sources) Abnormal gait; Translations: [Unspecified abnormalities of gait and mobility] 07-21-2022 Episodic Other nervous system disorders (20 sources) Tremor; Translations: [Tremor, unspecified] 07-21-2022 Episodic Other nervous system disorders (5 sources) Dysarthria; Translations: [Dysarthria and anarthria] 08-06-2024 Episodic Other non-traumatic joint disorders (8 sources) Pain in left shoulder; Translations: [Left shoulder pain] 07-11-2023 Episodic Other nutritional; endocrine; and metabolic disorders (20 sources) Hyperammonemia; Translations: [Disorder of urea cycle metabolism, unspecified] 11-09-2022 Chronic Other nutritional; endocrine; and metabolic disorders (12 sources) Disorder of urea cycle metabolism, unspecified; 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] 11-09-2022 Chronic Pathological fracture (1 source) Age-related osteoporosis with current pathological fracture, vertebra(e), initial encounter for fracture; Translations: [Age-related osteoporosis with current pathological fracture, vertebra(e), initial encounter for fracture] Onset: 12-07-2024 Episodic Residual codes; unclassified (11 sources) Not for resuscitation; Translations: [Do not [...] unspecified; Translations: [Low back pain, unspecified] Onset: 12-17-2024 Past or Other Problems Problem Classification Problem Date Documented Da te Episodic/Chronic Deficiency and other anemia (1 source) Vitamin B12 deficiency anemia, unspecified; Translations: [Vitamin B12 deficiency anemia, unspecified] Onset: 09-12-2024 Episodic Other bone disease and musculoskeletal deformities (1 source) Other specified disorders of bone density and structure, unspecified site; Translations: [Other specified disorders of bone density and structure, unspecified site] Onset: 09-07-2024 Episodic Other connective tissue disease (1 source) Repeated falls; Translations: [Repeated falls] Onset: 09-20-2024 Episodic Other fractures (15 sources) Wedge compression fracture of unspecified thoracic vertebra, initial encounter for closed fracture; Translations: [Closed fracture of dorsal [thoracic] vertebra without mention of spinal cord injury] 11-09-2022 Episodic Other lower respiratory disease (11 sources) Pleurodynia; Translations: [Chest pain, unspecified] 11-17-2022 Episodic Other nervous system disorders (16 sources) Unspecified abnormalities of gait and mobility; Translations: [Abnormality of gait] Onset: 09-20-2024 07-01-2022 Episodic Other nervous system disorders (1 source) Unsteadiness on feet; Translations: [Unsteadiness on feet] Onset: 08-27-2024 Episodic Other nervous system disorders (1 source) Dysarthria and anarthria; Translations: [Dysarthria and anarthria] Onset: 09-20-2024 Episodic Other non-traumatic joint disorders (1 source) Hip pain; Translations: [Pain in left hip] Onset: 10-24-2018 10-24-2018 Episodic Other non-traumatic joint disorders (20 sources) Pain in right shoulder; Translations: [Right shoulder pain] Onset: 06-28-2024 02-28-2023 Episodic Unclassified (1 source) Problem Results Test Name Value Interpretation Reference Range Facility Magnetic resonance imaging r eportOrdered By: Jerome Wise on 11-23-2024 Study report [facility] Imaging Services [address] [place], [place] [address] Spine Lumbar (Routine) MR#: [id number] Acct: [id number] Name: CANDI AGUILAR Rep #: [id number] : 1950 F 74 From: Roberto Wise MD PCP: Dr. True Holguin, DO Status: REG CLI Study:Spine Lumbar (Routine) Date of Exam: 11/21/24 Exam# [id number] Ordering Dr: Jeffy Bran MD PROCEDURE: SPINE LUMBAR (ROUTINE) 11/21/2024 REASON FOR EXAM: AGE-RELATED OSTEOPOROSIS WITH CURRENT PATHOLOGICAL FRACTURE, VERT TECHNIQUE: Procedure Code: MRISPL Modality: MR Procedure: SPINE LUMBAR (ROUTINE) COMPARISON: 09/03/2024 FINDINGS: Bone marrow signal is heterogeneous. There is persistent compression fracture at the superior endplate of T11. There is likely new compression fracture involving the superior endplate of L1 which does not involve the posterior aspect of the vertebral body although is approximately 30% in vertebral body height loss. There is minimal increased STIR signal suggesting this is acute to subacute. The conus is noted posterior to T12. There is minimal grade 1 anterolisthesis of L4 on L5. The paravertebral soft tissues grossly unremarkable. L1-2: There is a concentric disc bulge without significant stenosis. L2-3: There is a mild concentric disc bulge with minimal AP canal diameter narrowing to 9 mm. L3-4: There is degenerative disc space narrowing at this level and a mild concentric disc bulge most pronounced in the right foraminal zone. No significant stenosis. L4-5: There is a concentric disc bulge and bilateral facet arthropathy. There is moderate AP canal diameter narrowing to 7 mm. The nerve root on the right may be contacted by the disc. It is not definitively compressed. L5-S1: There is a broad-based posterior disc bulge which may contact the exitingnerve roots as they exit neural foramina. No definite compression Sacrum: Unremarkable MRI/Spine Lumbar (Routine) IMPRESSION: Compression fracture at L1, proximally 30%, which is new compared with the previous study and does exhibit some edema suggesting it is acute to subacute. Old T11 compression fracture. Multilevel degenerative disc disease with mild central canal stenosis at L2-L3. Please see above for additional details by level. Reading Location: [facility] CC: Dr. Kendra Bran MD; Dr. True Holguin DO ~ Marble Cleaner: Signed [facility] Spine Lumbar (Routine)on Spine Lumbar (Routine) [facility] Imaging Services [address] [place] [address] Spine Lumbar (Routine) MR#: [id number] Acct: [id number] Name: CANDI AGUILAR Rep #: [id number] : 1950 F 74 From: Jerome Wise MD PCP: Dr. True Holguin DO Status: REG CLI Study: Spine Lumbar (Routine) Date of Exam: 11/21/24 Exam# [id number] Ordering Dr: Kendra Bran MD PROCEDURE: SPINE LUMBAR (ROUTINE) 11/21/2024 REASON FOR EXAM: AGE-RELATED OSTEOPOROSIS WITH CURRENT PATHOLOGICAL FRACTURE, VERT TECHNIQUE: Procedure Code: MRISPL Modality: MR Procedure: SPINE LUMBAR (ROUTINE) COMPARISON: 09/03/2024 FINDINGS: Bone marrow signal is heterogeneous. There is persistent compression fracture at the superior endplate of T11. There is likely new compression fracture involving the superior endplate of L1 which does not involve the posterior aspect of the vertebral body although is approximately 30% in vertebral body height loss. There is minimal increased STIR signal suggesting this is acute to subacute. The conus is noted posterior to T12. There is minimal grade 1 anterolisthesis of L4 on L5. The paravertebral soft tissues grossly unremarkable. L1-2: There is a concentric disc bulge without significant stenosis. L2-3: There is a mild concentric disc bulge with minimal AP canal diameter narrowing to 9 mm. L3-4: There is degenerative disc space narrowing at this level and a mild concentric disc bulge most pronounced in the right foraminal zone. No significant stenosis. L4-5: There is a concentric disc bulge and bilateral facet arthropathy. There is moderate AP canal diameter narrowing to 7 mm. The nerve root on the right may be contacted by the disc. It is not definitively compressed. L5-S1: There is a broad-based posterior disc bulge which may contact the exiting nerve roots as they exit neural foramina. No definite compression Sacrum: Unremarkable MRI/Spine Lumbar (Routine) IMPRESSION: Compression fracture at L1, proximally 30%, which is new compared with the previous study and does exhibit some edema suggesting it is acute to subacute. Old T11 compression fracture. Multilevel degenerative disc disease with mild central canal stenosis at L2-L3. Please see above for additional details by level. Reading Location: [facility] CC: Dr. Kendra Bran MD; Dr. True Holguin DO Marble Cleaner: Signed Normal [facility] Neurology Visit Reporton Neurology Visit Report [facility] [address] [place] [address], [address] [place] [address] OFFICE VISIT Date of Service: 11/05/24 MR#: [id number] Acct: [id number] Name: CANDI AGUILAR ANN Rep #: [id number] : 1950 Provider: Dr. Medardo hawkins MD Age/Sex: 74/F [place] [facility] [place] Signed HPI HPI Chief Complaint: Details: Interim History: Candi returns for follow-up visit. She has a history of hyperlipidemia, essential tremor, vitamin D deficiency, dementia, depression, anxiety and bipolar disorder. She [facility] in a jail facility and information presently available is limited. She apparently began to have memory difficulty since at least 2012 and this worsened over time. She denies any further worsening of her tremor within recent months. She has a tendency to forget conversations. She had difficulty managing her own finances. She had poor recall of past events. Around 2020, she moved from home to an assisted living arrangement. She had multiple falls and in January 2022 was admitted to a jail facility. She had multiple further falls s within recent months and sustained an L1 compression fracture (noted on lumbar x-rays (09/03/2024)) with a fall that occurred in August 2024. She is seeing a bridge painter helper, Dr. Bran, and the patient states that a lumbar MRI has been ordered. She is prescribed venlafaxine, buspirone, and trazodone. She no longer takes clonazepam or risperidone. She takes donepezil and memantine for her dementia. She presents to the office alone today. Divalproex DR prescribed for mood stabilization was discontinued. She has used a rollator since 2019 and is now using a walker. Physical therapy in the past was of some benefit except for her back pain. She has chronic low back pain and bilateral lower extremity radicular pain (left greater than right) and reports that her low back pain is now prominent. Lumbar paraspinal muscle and erector spinae muscle trigger point injections have been of benefit. She has left knee and left hip pain. She has chronic neck pain. She has right shoulder pain that has been present [...] pain. Ibuprofen was not of benefit. Flurbiprofen was of benefit but was no longer available at her pharmacy. She is currently taking meloxicam. She denied having numbness, lightheadedness or vertigo. She has chronic bilateral hearing loss. She has chronic bilateral blurring of vision. She had bilateral cataract surgeries in the past. She has had a tremor in the hands for many years. She has a tendency to drop objects. Primidone was of initial benefit for her tremor however she now states she does not feel primidone is of ju efit. Her tremor has continued to interfere with activities such as handwriting. Mini-Mental status exam score in June 2022 was 15/30, 19/30 in October 2022, 18/30 in April 2023, and 18/30 in April 2024. Laboratory studies from July 2022 reveal a low folate level and elevated ammonia level. Folate supplementation was initiated. Lactulose was initiated. Her last ammonia level (November 2022) was normal. Her lumbar MRI from July 2022 reveals an acute T11 moderate compression fracture. The patient's B12 level is near the low end of the normal range (August 2024). B12 1000 mcg orally daily was initiated in August 2024. Physical Exam: Neuro: The patient is awake; she has bradyphrenic; speech is slow; basic conversational language function is preserved; she ambulates with a walker Back: Bilateral mid lumbar paraspinal muscle tenderness is noted Neck: No bruits Heart: Regular rate and rhythm Supplemental Info Lumbar spine x-rays (02/01/2022): FINDINGS: VERTEBRAE:??? Slight anterior subluxation of L4 and L5.??? Diffuse cgwc-oh-bpjbennt spondylitic changes.??? Bilateral multilevel vertebral facet arthropathy [...] (high) Urine culture (04/15/2022): No growth. EKG ( (more content not included)... Normal [facility] Anion gap in Serum or Plasma Ordered By: True Holguin on 10-25-2024 Anion gap [Moles/Vol] 7 mmol/L 5-15 [facility] Automated blood erythrocyte countOrdered By: True Holguin on 10-25-2024 RBC (Bld) [#/Vol] 3.44 10*6/uL Low 4.2-5.4 [facility] Comment on above: Order Comment: 214-1 Performed By: #### L 501.9520 #### [facility] [place], [address] Automated blood hematocrit ( percentage)Ordered By: True Holguin on 10-25-2024 Hematocrit (Bld) [Volume fraction] 35.9 % Low 37-47 [facility] Comment on above: Order Comment: Performed By: #### L 501.9520 #### [facility] Laboratory [address] [place], [place], [address] BUN/creatinine ratioOrdered By: True Holguin on 10-25-2024 Urea nitrogen/Creatinine [Mass ratio] 11.2 mg/mg 10-20 [facility] Bilirubin, totalOrdered By: True Holguin on 10-25-2024 Bilirubin [Mass/Vol] 0.16 mg/dL Normal 0.00-1.30 [facility] Comment on above: Order Comment: Performed By: #### L 501.9520 #### [facility] Laboratory [address] [place], [place], [address] CBC-Complete Blood Cnt No Di ffon 10-25-2024 RDW SD 48.9 fl High 35.1-43.9 [facility] Comment on above: Order Comment: Performed By: #### L 501.9520 #### [facility] Laboratory [address] [place], [place], [address] Carbon dioxide, total [Moles /volume] in Central venous bloodOrdered By: True Holguin on 10-25-2024 CO2 [Moles/Vol] 28.4 mmol/L Normal 21.0-32.0 [facility] Comment on above: Order Comment: Performed By: #### L 501.9520 #### [facility] Laboratory [address] [place], [place], [address] Chloride assayOrdered By: Roni Holguin on 10-25-2024 Chloride [Moles/Vol] 106 mmol/L Normal 98-108 [facility] Comment on above: Order Comment: Performed By: #### L 501.9520 #### [facility] Laboratory [address] [place], [place], [address] Comprehensive Metabolic Prof ilon 10-25-2024 ALK PHOS 94 U/L Normal 35-104 [facility] Comment on above: Order Comment: 214-1 Performed By: #### L 501.9520 #### [facility] Laboratory [address] [place], [address] BUN/CRE 11.2 RATIO Normal 10-20 [facility] Comment on above: Order Comment: 214-1 Performed By: #### L 501.9520 #### [facility] Laboratory [address] [place], [address] GAP 7 Normal 5-15 [facility] Comment on above: Order Comment: 214-1 Performed By: #### L 501.9520 #### [facility] Laboratory [address] [place], [address] Potassium [Moles/Vol] 4.3 mmol/L Normal 3.3-5.1 [facility] Comment on above: Order Comment: 214-1 Performed By: #### L 501.9520 #### [facility] Laboratory [address] [place], [address] T PROT 5.6 g/dL Low 5.9-8.4 [facility] Comment on above: Order Comment: 214-1 Performed By: #### L 501.9520 #### [facility] Laboratory [address] [place], [address] Comprehensive Metabolic Prof ilOrdered By: True Holguin on 10-25-2024 AST [Catalytic activity/Vol] 17 U/L Normal <=31 [facility] Comment on above: Order Comment: 214-1 Performed By: #### L 501.9520 #### [facility] Laboratory [address] [place], [address] Erythrocyte distribution wid th ratioOrdered By: True Holguin on 10-25-2024 Erythrocyte distribution width (RBC) [Ratio] 12.9 % Normal 11.6-14.6 [facility] Comment on above: Order Comment: 214-1 Performed By: #### L 501.9520 #### [facility] Laboratory [address] [place], [place], [address] Erythrocyte distribution wid th standard deviationOrdered By: True Holguin on 10-25-2024 Erythrocyte distribution width (RBC) [Ratio] 48.9 fl High 35.1-43.9 [facility] Glomerular filtration rate ( GFR) estimation/1.73 sq m using serum, plasma, or whole bOrdered By: True Holguin on 10-25-2024 GFR/1.73 sq M.predicted among non-blacks MDRD (S/P/Bld) [Vol rate/Area] 77 mL/min/{1.73_m2} Normal >60 [facility] Comment on above: mL/min/1.73m2 CKD-EP I Creatinine Equation (2020) Order Comment: Result Comment: mL/m in/1.73m2 CKD-EPI Creatinine Equation (2020) Performed By: #### L 501.9520 #### [facility] Laboratory [address] [place], [place], [address] Hemoglobin measurementOrdere d By: True Holguin on 10-25-2024 Hemoglobin (Bld) [Mass/Vol] 11.3 g/dL Low 12.0-15.0 [facility] Comment on above: Order Comment: Performed By: #### L 501.9520 #### [facility] Laboratory [address] [place], [place], [address] MCV (mean corpuscular volume ) determinationOrdered By: True Holguin on 10-25-2024 MCV (RBC) [Entitic vol] 104.4 fL High 81-99 [facility] Comment on above: Order Comment: Performed By: #### L 501.9520 #### [facility] Laboratory [address] [place], [place], [id number] Mean corpuscular hemoglobin (MCH) determinationOrdered By: True Holguin on 10-25-2024 MCH (RBC) [Entitic mass] 32.8 pg High 27.0-32.0 [facility] Comment on above: Order Comment: - Performed By: #### L 501.9520 #### [facility] Laboratory [address] [place] [place], [address] Mean corpuscular hemoglobin concentration (MCHC) determinationOrdered By: True Holguin on 10-25-2024 MCHC (RBC) [Mass/Vol] 31.5 g/dL Low 32-36 [facility] Comment on above: Order Comment: Performed By: #### L 501.9520 #### [facility] Laboratory [address] [place], [address] Mean platelet volume determi nationOrdered By: True Holguin on 10-25-2024 Platelet mean volume (Bld) [Entitic vol] 11.1 fL Normal 6.2-12.0 [facility] Comment on above: Order Comment: Performed By: #### L 501.9520 #### [facility] Laboratory [address] [place], [address] Platelet countOrdered By: Roni Holguin on 10-25-2024 Platelets (Bld) [#/Vol] 224 10*3/uL Normal 150-450 [facility] Comment on above: Order Comment: Performed By: #### L 501.9520 #### [facility] Laboratory [address] [place], [address] Potassium measurement (mass/ volume)Ordered By: True Holguin on 10-25-2024 Potassium (Unsp spec) [Mass/Vol] 4.3 mmol/L 3.3-5.1 [facility] Serum creatinine measurement (mass/volume)Ordered By: True Holguin on 10-25-2024 Creatinine [Mass/Vol] 0.81 mg/dL Normal 0.70-1.20 [facility] Comment on above: Order Comment: Performed By: #### L 501.9520 #### [facility] Laboratory [address] [place], [address] Serum globulin measurementOr dered By: True Holguin on 10-25-2024 Globulin (S) [Mass/Vol] 2.2 g/dL Normal 2.2-4.2 [facility] Comment on above: Order Comment: Performed By: #### L 501.9520 #### [facility] Laboratory [address] [place], [address] Serum glucose measurement (m ass/volume)Ordered By: True Holguin on 10-25-2024 Glucose [Mass/Vol] 82 mg/dL Normal 70-99 [facility] Comment on above: Order Comment: Performed By: #### L 501.9520 #### [facility] Laboratory [address] [place], [address] Serum or plasma alanine dacosta otransferase (ALT) measurementOrdered By: True Holguin on 10-25-2024 ALT [Catalytic activity/Vol] 5 U/L Normal <=34 [facility] Comment on above: Order Comment: Performed By: #### L 501.9520 #### [facility] Laboratory [address] [place], [address] Serum or plasma albumin moriah urement (mass/volume)Ordered By: True Holguin on 10-25-2024 Albumin [Mass/Vol] 3.4 g/dL Normal 3.4-4.8 [facility] Comment on above: Order Comment: Performed By: #### L 501.9520 #### [facility] Laboratory [address] [place], [address] Serum or plasma albumin/glob ulin mass ratioOrdered By: True Holguin on 10-25-2024 Albumin/Globulin [Mass ratio] 1.6 {ratio} Normal 0.9-2.4 [facility] Comment on above: Order Comment: - Performed By: #### L 501.9520 #### [facility] Laboratory [address] [place], [address] Serum or plasma alkaline boo sphatase measurementOrdered By: True Holguin on 10-25-2024 ALP [Catalytic activity/Vol] 94 U/L 35-104 [facility] Serum or plasma calcium moriah urement (mass/volume)Ordered By: True Holguin on 10-25-2024 Calcium [Mass/Vol] 8.8 mg/dL Normal 7.6-11.0 [facility] Comment on above: Order Comment: 214- Performed By: #### L 501.9520 #### [facility] Laboratory [address] [place], [place], [address] Serum or plasma urea nitroge n measurement (mass/volume)Ordered By: True Holguin on 10-25-2024 Urea nitrogen [Mass/Vol] 9 mg/dL Normal 4-19 [facility] Comment on above: Order Comment: - Performed By: #### L 501.9520 #### [facility] Laboratory [address] [place], [place], [address] Sodium levelOrdered By: Graham Holguin on 10-25-2024 Sodium [Moles/Vol] 141 mmol/L Normal 133-145 [facility] Comment on above: Order Comment: - Performed By: #### L 501.9520 #### [facility] Laboratory [address] [place], [place], [address] TSH DL <= 0.005 mIU/L QnOrde red By: True Holguin on 10-25-2024 TSH Qn 2.530 uIU/mL 0.300-4.200 [facility] Thyroid Stim Hormone (TSH)on 10-25-2024 TSH 2.530 uIU/mL Normal 0.300-4.200 [facility] Comment on above: Order Comment: - Performed By: #### L 501.9520 #### [facility] Laboratory [address] [place], [address] Total proteinOrdered By: Aisha Holguin on 10-25-2024 Protein [Mass/Vol] 5.6 g/dL Low 5.9-8.4 [facility] Vitamin D,25 Hydroxyon 10-25 Vitamin D 25-OH 55.4 ng/mL Normal 30-100 [facility] Comment on above: Order Comment: Result Comment: Stephanie min D Status Deficiency: <20 ng/mL (50nmol/L) Insufficiency: 20-30 ng/mL (50-75 nmol/L) Sufficiency: 30-100 ng/mL (75-250 nmol/L) Toxicity: >100 ng/mL (>250 nmol/L) Performed By: #### L 501.9520 #### [facility] Laboratory [address] [place], [address] White blood cell (WBC) count Ordered By: True Holguin on 10-25-2024 WBC (Bld) [#/Vol] 6.1 10*3/uL Normal 4.4-11.0 [facility] Comment on above: Order Comment: Performed By: #### L 501.9520 #### [facility] Laboratory [address] [place], [address] Lumbar Spine 2 or 3 Viewson 09-03-2024 Lumbar Spine 2 or 3 Views [facility] Imaging Services [address] [place] [address] Lumbar Spine 2 or 3 Views MR#: [id number] Acct: [id number] Name: CANDI AGUILAR ANN Rep #: [id number] : 1950 F 74 From: Jasmin gordon MD PCP: Claudia Anderson MD Status: REG CLI Study: Lumbar Spine 2 or 3 Views Date of Exam: Exam# [id number] Ordering Dr: Kendra Bran MD PROCEDURE: LUMBAR [...] stenosis. Unchanged exaggerated lumbar lordosis. Reading Location: [place] [address] CC: Dr. Kendra Bran MD; Claudia Anderson MD Marble Cleaner: Signed Normal [facility] Vitamin B12on 08-27-2024 Cobalamin (Vitamin B12) [Mass/Vol] 221 pg/mL Normal 180-914 [facility] Comment on above: Order Comment: 214 Performed By: #### L 503.0106 #### [facility] Laboratory [address] [facility] [place], [place], [address] Vitamin B12 ser/plasOrdered By: Claudia Anderson on 08-27-2024 Cobalamin (Vitamin B12) [Mass/Vol] 221 pg/mL 180-914 [facility] Brain without Contraston Brain without Contrast [facility] Imaging Services [address] [place], [place] [address] Brain without Contrast MR#: [id number] Acct: [id number] Name: CANDI AGUILAR ANN Rep #: [id number] : 1950 F 73 From: Kavon Graham MD PCP: Claudia Anderson MD Status: REG CLI Study: Brain without Contrast Date of Exam: 08/22/24 Exam# [id number] Ordering Dr: Medardo Mayo MD PROCEDURE: BRAIN [...] collections. The paranasal sinuses are clear. Absent [place] ocular lenses. Partial left mastoid effusion. MRI/Brain without Contrast IMPRESSION: No acute intracranial abnormalities. Reading Location: [id number] CC: Dr. Medardo Mayo MD; Claudia Anderson MD Marble Cleaner: Signed Normal [facility] Magnetic resonance imaging r eportOrdered By: Kavon Graham on 08-22-2024 Study report [facility] Imaging Services [address] [place] [address] Brain without Contrast MR#: [id number] Acct: [id number] Name: CANDI AGUILAR ANN Rep #: [id number] : 1950 F 73 From: Sher Graham MD PCP: Claudia Anderson MD Status: REG CLI Study:Brain without Contrast Date of Exam: 08/22/24 Exam# [id number] Ordering Dr: Medardo Mayo MD PROCEDURE: BRAIN [...] collections. The paranasal sinuses are clear. Absent [place] ocular lenses. Partial left mastoid effusion. MRI/Brain without Contrast IMPRESSION: No acute intracranial abnormalities. Reading Location: [id number] CC: Dr. Medardo Mayo MD; Claudia Anderson MD ~ Marble Cleaner: Signed [facility] TSH DL <= 0.005 mIU/L QnOrde red By: True Holguin on 08-15-2024 TSH Qn 1.280 uIU/mL 0.300-4.200 [facility] Thyroid Stim Hormone (TSH)on 08-15-2024 TSH 1.280 uIU/mL Normal 0.300-4.200 [facility] Comment on above: Order Comment: 214-1 Performed By: #### L 501.9520 #### [facility] Laboratory [address] [facility] [place], [place], [address] Lumbar Spine 2 or 3 Viewson 08-06-2024 Lumbar Spine 2 or 3 Views [facility] Imaging Services [address] [place], [place] [address] Lumbar Spine 2 or 3 Views MR#: [id number] Acct: [id number] Name: CANDI AGUILAR ANN Rep #: [id number] : 1950 F 73 From: Manuel Rojas MD PCP: Claudia Anderson MD Status: REG CLI Study: Lumbar Spine 2 or 3 Views Date of Exam: Exam# [id number] Ordering Dr: Kendra Bran MD PROCEDURE: LUMBAR SPINE 2 OR 3 VIEWS 08/06/2024 REASON FOR EXAM: SPONDYLOSIS WITHOUT MYELOPATHY OR RADICULOPATHY, LUMBAR REGION TECHNIQUE: 2 view(s) of the lumbar spine COMPARISON: 05/27/2023 FINDINGS: 5 ccj-iar-klmogfs lumbar vertebral body types identified. No acute fracture or malalignment. There is again note of a remote moderate T11 compression deformity with anterior wedging, unchanged. L1-2 moderate disc space narrowing L2-3 vzny-zp-mbchrjmw disc space narrowing with degenerative endplate change L3-4 tnukumvk-fw-novhpt disc space narrowing with degenerative endplate change L4-5 cwoh-qp-xeojcwew disc space narrowing and degenerative endplate change Lower lumbar facet degenerative changes RAD/Lumbar Spine 2 or 3 Views IMPRESSION: No significant interval change in appearance of multilevel spondylosis/discogeni c change as above. Reading Location: [facility] CC: Dr. Kendar Bran MD; Claudia Anderson MD Marble [employer]er: Signed Normal [facility] Neurology Visit Reporton Neurology Visit Report [facility] [address] [place] [address] OFFICE VISIT Date of Service: 08/06/24 MR#: [id number] Acct: [id number] Name: CANDI AGUILAR ANN Rep #: [id number] : 1950 Provider: Dr. Medardo hawkins MD Age/Sex: 73/F Location: [facility] Status: Signed HPI HPI Chief Complaint: Details: Note: Candi returns for follow-up visit. She has a history of hyperlipidemia, essential tremor, vitamin D deficiency, dementia, depression, anxiety and bipolar disorder. She resides in a jail facility. She apparently began to have memory difficulty since at least 2012. She has a tendency to forget conversations. She had poor recall of past events. Around 2020, she moved from home to an assisted living arrangement. She had multiple falls and in January 2022 was admitted to a jail facility. She had further falls since her [...] anterior subluxation of L4 and L5.??? Diffuse vmot-bk-dkkfqepv spondylitic changes.??? Bilateral multilevel vertebral facet arthropathy [...] multilevel de (more content not included)... Normal [facility] Bilirubin directOrdered By: True Holguin on 07-12-2024 Bilirubin.direct [Mass/Vol] mg/dL 0.00-0.30 [facility] Bilirubin, totalOrdered By: True Holguin on 07-12-2024 Bilirubin [Mass/Vol] mg/dL 0.00-1.30 [facility] CBC-Complete Blood Cnt No Di ffon 07-12-2024 Erythrocyte distribution width (RBC) [Ratio] 13.4 % Normal 11.6-14.6 [facility] Comment on above: Performed By: #### L 100.0500, L500.3400 #### [facility] [address] [place], [address] Hematocrit (Bld) [Volume fraction] 35.0 % Low 37-47 [facility] Comment on above: Performed By: #### L 100.0500, L500.3400 #### [facility] [address] [place], [address] Hemoglobin (Bld) [Mass/Vol] 10.9 g/dL Low 12.0-15.0 [facility] Comment on above: Performed By: #### L 100.0500, L500.3400 #### [facility] [address] [place], [address] MCH (RBC) [Entitic mass] 32.8 pg High 27.0-32.0 [facility] Comment on above: Performed By: #### L 100.0500, L500.3400 #### [facility] [address] [place] [address] MCHC (RBC) [Mass/Vol] 31.1 g/dL Low 32-36 [facility] Comment on above: Performed By: #### L 100.0500, L500.3400 #### [facility] [address] [place], [address] MCV (RBC) [Entitic vol] 105.4 fL High 81-99 [facility] Comment on above: Performed By: #### L 100.0500, L500.3400 #### [facility] [address] [place], [address] Platelet mean volume (Bld) [Entitic vol] 10.4 fL Normal 6.2-12.0 [facility] Comment on above: Performed By: #### L 100.0500, L500.3400 #### [facility] [address] [place], [address] Platelets (Bld) [#/Vol] 223 10*3/uL Normal 150-450 [facility] Comment on above: Performed By: #### L 100.0500, L500.3400 #### [facility] [address] [place], [address] RBC (Bld) [#/Vol] 3.32 10*6/uL Low 4.2-5.4 [facility] Comment on above: Performed By: #### L 100.0500, L500.3400 #### [facility] [address] [place], [address] RDW SD 52.5 fl High 35.1-43.9 [facility] Comment on above: Performed By: #### L 100.0500, L500.3400 #### [facility] [address] [place], [address] WBC (Bld) [#/Vol] 6.3 10*3/uL Normal 4.4-11.0 [facility] Comment on above: Performed By: #### L 100.0500, L500.3400 #### [facility] [address] [place], [address] Erythrocyte distribution wid th ratioOrdered By: True Holguin on 07-12-2024 Erythrocyte distribution width (RBC) [Ratio] 13.4 % 11.6-14.6 [facility] Erythrocyte distribution wid th standard deviationOrdered By: True Holguin on 07-12-2024 Erythrocyte distribution width (RBC) [Ratio] 52.5 fl High 35.1-43.9 [facility] Hematocrit Auto (Bld) [Volum e fraction]Ordered By: True Holguin on 07-12-2024 Hematocrit (Bld) [Volume fraction] 35.0 % Low 37-47 [facility] Hemoglobin measurementOrdere d By: True Holguin on 07-12-2024 Hemoglobin (Bld) [Mass/Vol] 10.9 g/dL Low 12.0-15.0 [facility] Laboratory - Chemistry and C hemistry - challengeOrdered By: True Holguin on 07-12-2024 AST [Catalytic activity/Vol] 17 U/L <32 [facility] Liver Profileon 07-12-2024 Albumin [Mass/Vol] 3.2 g/dL Low 3.4-4.8 [facility] Comment on above: Performed By: #### L 382.8584 #### [facility] [address] [place], [address] ALK PHOS 112 U/L High 35-104 [facility] Comment on above: Performed By: #### L 058.9520 #### [facility] [address] [place], [address] ALT [Catalytic activity/Vol] U/L Normal <=34 [facility] Comment on above: Performed By: #### L 501.9520 #### [facility] [address] [place], [address] AST [Catalytic activity/Vol] 17 U/L Normal <=31 [facility] Comment on above: Performed By: #### L 501.9520 #### [facility] [address] [place], [address] D BILI < 0.08 Normal 0.00-0.30 [facility] Comment on above: Performed By: #### L 501.9520 #### [facility] [address] [place], [address] Globulin (S) [Mass/Vol] 2.5 g/dL Normal 2.2-4.2 [facility] Comment on above: Performed By: #### L 501.9520 #### [facility] [address] [place], [address] T BILI < 0.15 Normal 0.00-1.30 [facility] Comment on above: Performed By: #### L 501.9520 #### [facility] [address] [place], [address] T PROT 5.7 g/dL Low 5.9-8.4 [facility] Comment on above: Performed By: #### L 501.9520 #### [facility] [address] [place], [address] MCV (mean corpuscular volume ) determinationOrdered By: True Holguin on 07-12-2024 MCV (RBC) [Entitic vol] 105.4 fL High 81-99 [facility] Mean corpuscular hemoglobin (MCH) determinationOrdered By: True Holguin on 07-12-2024 MCH (RBC) [Entitic mass] 32.8 pg High 27.0-32.0 [facility] Mean corpuscular hemoglobin concentration (MCHC) determinationOrdered By: True Holguin on 07-12-2024 MCHC (RBC) [Mass/Vol] 31.1 g/dL Low 32-36 [facility] Mean platelet volume determi nationOrdered By: True Holguin on 07-12-2024 Platelet mean volume (Bld) [Entitic vol] 10.4 fL 6.2-12.0 [facility] Platelet countOrdered By: Roni Holguin on 07-12-2024 Platelets (Bld) [#/Vol] 223 10*3/uL 150-450 [facility] RBC Auto (Bld) [#/Vol]Ordere d By: True Holguin on 07-12-2024 RBC (Bld) [#/Vol] 3.32 10*6/uL Low 4.2-5.4 [facility] Serum globulin measurementOr dered By: True Holguin on 07-12-2024 Globulin (S) [Mass/Vol] 2.5 g/dL 2.2-4.2 [facility] Serum or plasma alanine dacosta otransferase (ALT) measurementOrdered By: True Holguin on 07-12-2024 ALT [Catalytic activity/Vol] U/L <35 [facility] Serum or plasma albumin moriah urement (mass/volume)Ordered By: True Holguin on 07-12-2024 Albumin [Mass/Vol] 3.2 g/dL Low 3.4-4.8 [facility] Serum or plasma alkaline boo sphatase measurementOrdered By: True Holguin on 07-12-2024 ALP [Catalytic activity/Vol] 112 U/L High 35-104 [facility] Total proteinOrdered By: Aisha Holguin on 07-12-2024 Protein [Mass/Vol] 5.7 g/dL Low 5.9-8.4 [facility] White blood cell (WBC) count Ordered By: True Holguin on 07-12-2024 WBC (Bld) [#/Vol] 6.3 10*3/uL 4.4-11.0 [facility] Vitamin D,25 Hydroxyon 06-25 Vitamin D 25-OH 10.3 ng/mL Low 30-100 [facility] Comment on above: Order Comment: 214 Result Comment: Stephanie min D Status Deficiency: <20 ng/mL (50nmol/L) Insufficiency: 20-30 ng/mL (50-75 nmol/L) Sufficiency: 30-100 ng/mL (75-250 nmol/L) Toxicity: >100 ng/mL (>250 nmol/L) Performed By: #### L 506.1001 #### [facility] [place], [address] Neurology Visit Reporton Neurology Visit Report [facility] [address] [place] [address] OFFICE VISIT Date of Service: 05/07/24 MR#: [id number] Acct: [id number] Name: CANDI AGUILAR Rep #: [id number] : 1950 Provider: Dr. Medardo hawkins MD Age/Sex: 73/F [place] [facility] [place] Status: Signed with Addenda ADDENDUM by Dr. [...] Medardo Mayo MD cc: * Signed HPI [facility] Chief Complaint: Details: Interim History: Candi returns for follow-up visit. She has a history of hyperlipidemia, essential tremor, vitamin D deficiency, dementia, depression, anxiety and bipolar disorder. She resides in a jail facility and information presently available is limited. [...] in January 2022 was admitted to a jail facility. She had further falls since her [...] anterior subluxation of L4 and L5.??? Diffuse dsns-gx-cjsvyyqs spondylitic changes.??? Bilateral multilevel vertebral facet arthropathy in the lower lumbar spine.??? Old compression fracture T11. Preservation of the normal lumbar lordosis. DISC SPACES:??? No acute findings.??? Disc spaces are maintained. GASTROINTESTINAL TRACT:??? Unremarkable as visualized.??? Included bari (more content not included)... Normal [facility] Bilirubin directOrdered By: Claudia Anderson on 04-13-2024 Bilirubin.direct [Mass/Vol] 0.08 mg/dL 0.00-0.30 [facility] Bilirubin, totalOrdered By: Claudia Anderson on 04-13-2024 Bilirubin [Mass/Vol] 0.20 mg/dL 0.20-1.00 [facility] Comment on above: For patients on eltr ombopag therapy, use of Dimension [place] TBIL is not recommended. Blood manual differential co mment interpretation (narrative result)Ordered By: Claudia Anderson on 04-13-2024 Manual differential comment Anant (Bld) [Interp] COMMENT [facility] Comment on above: PLT ESTIMATE - PLT S LIGHT DECREASE. CBC-Complete Blood Cnt No Clare mallory 04-13-2024 PLT TNP Normal 150-450 [facility] Comment on above: Order Comment: Result Comment: [...] #### L 100.4500, L501.8100, L100.0500, L500.3400 #### [facility] [address] [place], [address] Erythrocyte distribution width (RBC) [Ratio] 12.9 % Normal 11.6-14.6 [facility] Comment on above: Order Comment: - Performed By: #### L 100.4500, L501.8100, L100.0500, L500.3400 #### [facility] [address] [place], [address] Hematocrit (Bld) [Volume fraction] 39.3 % Normal 37-47 [facility] Comment on above: Order Comment: - Performed By: #### L 100.4500, L501.8100, L100.0500, L500.3400 #### [facility] [address] [place], [address] Hemoglobin (Bld) [Mass/Vol] 12.4 g/dL Normal 12.0-15.0 [facility] Comment on above: Order Comment: - Performed By: #### L 100.4500, L501.8100, L100.0500, L500.3400 #### [facility] [address] [place], [address] MCH (RBC) [Entitic mass] 33.4 pg High 27.0-32.0 [facility] Comment on above: Order Comment: - Performed By: #### L 100.4500, L501.8100, L100.0500, L500.3400 #### [facility] [address] [place], [address] MCHC (RBC) [Mass/Vol] 31.6 g/dL Low 32-36 [facility] Comment on above: Order Comment: 214-1 Performed By: #### L 100.4500, L501.8100, L100.0500, L500.3400 #### [facility] [address] [place], [address] MCV (RBC) [Entitic vol] 105.9 fL High 81-99 [facility] Comment on above: Order Comment: 214-1 Performed By: #### L 100.4500, L501.8100, L100.0500, L500.3400 #### [facility] [address] [place], [address] Platelet mean volume (Bld) [Entitic vol] 11.2 fL Normal 6.2-12.0 [facility] Comment on above: Order Comment: 214-1 Performed By: #### L 100.4500, L501.8100, L100.0500, L500.3400 #### [facility] [address] [place], [address] RBC (Bld) [#/Vol] 3.71 10*6/uL Low 4.2-5.4 [facility] Comment on above: Order Comment: 214-1 Performed By: #### L 100.4500, L501.8100, L100.0500, L500.3400 #### [facility] [address] [place], [address] RDW SD 50.0 fl High 35.1-43.9 [facility] Comment on above: Order Comment: 214-1 Performed By: #### L 100.4500, L501.8100, L100.0500, L500.3400 #### [facility] [address] [place], [address] WBC (Bld) [#/Vol] 5.5 10*3/uL Normal 4.4-11.0 [facility] Comment on above: Order Comment: Performed By: #### L 100.4500, L501.8100, L100.0500, L500.3400 #### [facility] [address] [place], [address] Differential Commenton 04-13 SMEAR COMMENT COMMENT Normal [facility] Comment on above: Order Comment: Result Comment: PLT ESTIMATE - PLT SLIGHT DECREASE. Performed By: #### L 100.4500, L501.8100, L100.0500, L500.3400 #### [facility] [address] [place], [address] Erythrocyte distribution wid th ratioOrdered By: Claudia Anderson on 04-13-2024 Erythrocyte distribution width (RBC) [Ratio] 12.9 % 11.6-14.6 [facility] Erythrocyte distribution wid th standard deviationOrdered By: Claudia Anderson on 04-13-2024 Erythrocyte distribution width (RBC) [Ratio] 50.0 fl High 35.1-43.9 [facility] Hematocrit Auto (Bld) [Volum e fraction]Ordered By: Claudia Anderson on 04-13-2024 Hematocrit (Bld) [Volume fraction] 39.3 % 37-47 [facility] Hemoglobin measurementOrdere d By: Claudia Anderson on 04-13-2024 Hemoglobin (Bld) [Mass/Vol] 12.4 g/dL 12.0-15.0 [facility] Laboratory - Chemistry and C hemistry - challengeOrdered By: Claudia Anderson on 04-13-2024 AST [Catalytic activity/Vol] 14 U/L Low 15-37 [facility] Liver Profileon 04-13-2024 Albumin [Mass/Vol] 2.7 g/dL Low 3.2-5.0 [facility] Comment on above: Order Comment: 214-1 Performed By: #### L 100.4500, L501.8100, L100.0500, L500.3400 #### [facility] [address] [place], [address] ALK P 93 U/L Normal 45-117 [facility] Comment on above: Order Comment: -1 Performed By: #### L 100.4500, L501.8100, L100.0500, L500.3400 #### [facility] [address] [place], [address] ALT [Catalytic activity/Vol] 11 U/L Low 13-56 [facility] Comment on above: Order Comment: - Performed By: #### L 100.4500, L501.8100, L100.0500, L500.3400 #### [facility] [address] [place], [address] AST [Catalytic activity/Vol] 14 U/L Low 15-37 [facility] Comment on above: Order Comment: - Performed By: #### L 100.4500, L501.8100, L100.0500, L500.3400 #### [facility] [address] [place], [address] Bilirubin [Mass/Vol] 0.20 mg/dL Normal 0.20-1.00 [facility] Comment on above: Order Comment: - Result Comment: For patients on eltrombopag therapy, use of Dimension [place] TBIL is not recommended. Performed By: #### L 100.4500, L501.8100, L100.0500, L500.3400 #### [facility] [address] [place], [address] Bilirubin.direct [Mass/Vol] 0.08 mg/dL Normal 0.00-0.30 [facility] Comment on above: Order Comment: 214-1 Performed By: #### L 100.4500, L501.8100, L100.0500, L500.3400 #### [facility] [address] [place], [address] Globulin (S) [Mass/Vol] 2.8 g/dL Normal 2.2-4.2 [facility] Comment on above: Order Comment: 214-1 Performed By: #### L 100.4500, L501.8100, L100.0500, L500.3400 #### [facility] [address] [place], [address] T PROT 5.5 g/dL Low 6.4-8.2 [facility] Comment on above: Order Comment: 214-1 Performed By: #### L 100.4500, L501.8100, L100.0500, L500.3400 #### [facility] [address] [place], [address] MCV (mean corpuscular volume ) determinationOrdered By: Claudia Anderson on 04-13-2024 MCV (RBC) [Entitic vol] 105.9 fL High 81-99 [facility] Mean corpuscular hemoglobin (MCH) determinationOrdered By: Claudia Anderson on 04-13-2024 MCH (RBC) [Entitic mass] 33.4 pg High 27.0-32.0 [facility] Mean corpuscular hemoglobin concentration (MCHC) determinationOrdered By: Claudia Anderson on 04-13-2024 MCHC (RBC) [Mass/Vol] 31.6 g/dL Low 32-36 [facility] Mean platelet volume determi nationOrdered By: Claudia Anderson on 04-13-2024 Platelet mean volume (Bld) [Entitic vol] 11.2 fL 6.2-12.0 [facility] Platelet countOrdered By: Harmeet Anderson on 04-13-2024 Platelet count TNP [facility] Comment on above: Test not performedPl ease [...] RBC (Bld) [#/Vol] 3.71 10*6/uL Low 4.2-5.4 [facility] Serum globulin measurementOr dered By: Claudia Anderson on 04-13-2024 Globulin (S) [Mass/Vol] 2.8 g/dL 2.2-4.2 [facility] Serum or plasma alanine dacosta otransferase (ALT) measurementOrdered By: Claudia Anderson on 04-13-2024 ALT [Catalytic activity/Vol] 11 U/L Low 13-56 [facility] Serum or plasma albumin moriah urement (mass/volume)Ordered By: Claudia Anderson on 04-13-2024 Albumin [Mass/Vol] 2.7 g/dL Low 3.2-5.0 [facility] Serum or plasma alkaline boo sphatase measurementOrdered By: Claudia Anderson on 04-13-2024 ALP [Catalytic activity/Vol] 93 U/L 45-117 [facility] Total proteinOrdered By: Po Anderson on 04-13-2024 Protein [Mass/Vol] 5.5 g/dL Low 6.4-8.2 [facility] Valproic Acid (Depakene) Lev coral 04-13-2024 VALPROIC ACID 45 ug/mL Low 50-100 [facility] Comment on above: Order Comment: 214-1 Performed By: #### L 100.4500, L501.8100, L100.0500, L500.3400 #### [facility] Laboratory [facility] [place], [address] White blood cell (WBC) count Ordered By: Claudia Anderson on 04-13-2024 WBC (Bld) [#/Vol] 5.5 10*3/uL 4.4-11.0 [facility] Thyroid Stim Hormone (TSH)on 02-17-2024 TSH 2.260 uIU/mL Normal 0.358-3.740 [facility] Comment on above: Order Comment: 214-1 Performed By: #### L 501.9520 #### [facility] [place], [address] Neurology Visit Reporton Neurology Visit Report [facility] [address] [facility], [address] [place], [place] [address] OFFICE VISIT Date of Service: 01/25/24 MR#: [id number] Acct: [id number] Name: CANDI AGUILAR ANN Rep #: [id number] : 1950 Provider: Dr. Medardo hawkins MD Age/Sex: 73/F [place] [facility] [place]: Signed HPI HPI Chief Complaint: Supplemental [...] Performing Provider: Medardo Mayo MD Performing Location: [facility] (more content not included)... Normal [facility] Thyroid Stim Hormone (TSH)on 01-17-2024 TSH 2.540 uIU/mL Normal 0.358-3.740 [facility] Comment on above: Order Comment: . Performed By: #### L 501.9520 #### [facility] [address] [place], [place], [id number] (101) CBC-Complete Blood Cnt No Di ffon 01-12-2024 Erythrocyte distribution width (RBC) [Ratio] 13.0 % Normal 11.6-14.6 [facility] Comment on above: Order Comment: - Performed By: #### L 501.9520 #### [facility] [address] [place], [address] Hematocrit (Bld) [Volume fraction] 37.3 % Normal 37-47 [facility] Comment on above: Order Comment: - Performed By: #### L 501.9520 #### [facility] [address] [place], [address] Hemoglobin (Bld) [Mass/Vol] 11.5 g/dL Low 12.0-15.0 [facility] Comment on above: Order Comment: - Performed By: #### L [id number] #### [facility] [address] [place], [address] MCH (RBC) [Entitic mass] 32.5 pg High 27.0-32.0 [facility] Comment on above: Order Comment: - Performed By: #### L [id number] #### [facility] [address] [place], [address] MCHC (RBC) [Mass/Vol] 30.8 g/dL Low 32-36 [facility] Comment on above: Order Comment: -1 Performed By: #### L 501.9520 #### [facility] [facility] [address] [place], [address] MCV (RBC) [Entitic vol] 105.4 fL High 81-99 [facility] Comment on above: Order Comment: -1 Performed By: #### L [id number] #### [facility] [address] [place], [address] Platelet mean volume (Bld) [Entitic vol] 10.4 fL Normal 6.2-12.0 [facility] Comment on above: Order Comment: - Performed By: #### L [id number] #### [facility] [address] [place], [address] Platelets (Bld) [#/Vol] 239 10*3/uL Normal 150-450 [facility] Comment on above: Order Comment: -1 Performed By: #### [id number] #### [facility] [address] [place], [address] RBC (Bld) [#/Vol] 3.54 10*6/uL Low 4.2-5.4 [facility] Comment on above: Order Comment: -1 Performed By: #### [id number] #### [facility] [address] [place], [address] RDW SD 50.4 fl High 35.1-43.9 [facility] Comment on above: Order Comment: -1 Performed By: #### [id number] #### [facility] [address] [place], [address] WBC (Bld) [#/Vol] 7.1 10*3/uL Normal 4.4-11.0 [facility] Comment on above: Order Comment: - Performed By: #### [id number] #### [facility] [address] [place], [address] Liver Profileon 01-12-2024 Albumin [Mass/Vol] 2.9 g/dL Low 3.2-5.0 [facility] Comment on above: Order Comment: - Performed By: #### L [id number] #### [facility] [address] [place], [address] ALK P 72 U/L Normal 45-117 [facility] Comment on above: Order Comment: - Performed By: #### [id number] #### [facility] [address] [place], [address] ALT [Catalytic activity/Vol] 10 U/L Low 13-56 [facility] Comment on above: Order Comment: - Performed By: #### L [id number] #### [facility] [address] [place], [address] AST [Catalytic activity/Vol] 12 U/L Low 15-37 [facility] Comment on above: Order Comment: - Performed By: #### L [id number] #### [facility] [address] [place], [address] Bilirubin [Mass/Vol] 0.20 mg/dL Normal 0.20-1.00 [facility] Comment on above: Order Comment: Result Comment: For patients on eltrombopag therapy, use of Dimension [place] TBIL is not recommended. Performed By: #### L [id number] #### [facility] [address] [place], [address] Bilirubin.direct [Mass/Vol] 0.07 mg/dL Normal 0.00-0.30 [facility] Comment on above: Order Comment: 214-1 Performed By: #### L [id number] #### [facility] [address] [place], [address] Globulin (S) [Mass/Vol] 2.5 g/dL Normal 2.2-4.2 [facility] Comment on above: Order Comment: 214-1 Performed By: #### L [id number] #### [facility] [address] [place], [address] T PROT 5.4 g/dL Low 6.4-8.2 [facility] Comment on above: Order Comment: 214-1 Performed By: #### L [id number] #### [facility] [address] [place], [address] Valproic Acid (Depakene) Lev coral 01-12-2024 VALPROIC ACID 15 ug/mL Low 50-100 [facility] Comment on above: Order Comment: - Performed By: #### L [id number] #### [facility] [address] [place], [address] Upper Ext Joint Only(Routine )on 01-04-2024 Upper Ext Joint Only(Routine) [facility] [address] [place] [address] Upper Ext Joint Only(Routine) MR#: [id number] Acct: [id number] Name: CANDI AGUILAR ANN Rep #: [id number] : [id number] F [id number] From: Mk López MD PCP: Claudia Anderson MD Status: REG CLI Study: Upper Ext Joint Only(Routine) Date of Exam: Exam# [id number] Ordering Dr: True Rader MD [id number] STUDY: MRI RIGHT SHOULDER REASON FOR EXAM: [...] Signed: Mk López MD at 15:07 EDT , CC: Dr. True Rader MD; Claudia Anderson MD Marble Cleaner: Signed Normal [facility] Absolute lymphocyte countOrd ered By: Claudia Anderson on 07-18-2023 Lymphocytes Auto (Unsp spec) [#/Vol] 4.10 10*3/uL 0.83-4.51 [facility] Automated lymphocyte count a s percentage of total leukocytesOrdered By: Claudia Anderson on 07-18-2023 Lymphocytes/100 WBC Auto (Unsp spec) 45.5 % 19-41 [facility] Basophil percentageOrdered B y: Claudiasimran Anderson on 07-18-2023 Basophils/100 WBC (Bld) 0.4 % 0-1 [facility] Eosinophils/100 WBC (Bld) 2.3 % 0-5 [facility] Hemoglobin (Bld) [Mass/Vol] 11.6 g/dL 12.0-15.0 [facility] Monocytes/100 WBC (Bld) 8.2 % 0-10 [facility] Neutrophils (Bld) [#/Vol] 3.9 10*3/uL 2.0-7.7 [facility] Neutrophils/100 WBC (Bld) 42.9 % 47-70 [facility] WBC (Bld) [#/Vol] 9.0 10*3/uL 4.4-11.0 [facility] Determination of erythrocyte mean corpuscular volume (MCV)Ordered By: Claudia Anderson on 07-18-2023 MCV (RBC) [Entitic vol] 106.1 fL 81-99 [facility] Erythrocyte distribution wid th ratioOrdered By: Claudia Anderson on 07-18-2023 Erythrocyte distribution width (RBC) [Ratio] 12.8 % 11.6-14.6 [facility] Erythrocyte distribution wid th standard deviationOrdered By: Claudia Anderosn on 07-18-2023 Erythrocyte distribution width (RBC) [Entitic vol] 50.5 fL 35.1-43.9 [facility] Hematocrit Auto (Bld) [Volum e fraction]Ordered By: Claudia Anderson on 07-18-2023 Hematocrit (Bld) [Volume fraction] 36.3 % 37-47 [facility] Immature granulocytes/100 WB C Auto (Bld)Ordered By: Claudia Anderson on 07-18-2023 Immature granulocytes/100 WBC (Bld) 0.700 % 0.0-0.9 [facility] Comment on above: IG% - Immature Granu locytes (promyelocytes, myelocytes and metamyelocytes) > 1% indicates that a LEFT SHIFT is Present. Laboratory - Hematology and Cell countsOrdered By: Claudia Anderson on 07-18-2023 MCH (RBC) [Entitic mass] 33.9 pg 27.0-32.0 [facility] MCHC (RBC) [Mass/Vol] 32.0 g/dL 32-36 [facility] Nucleated RBC/100 WBC (Bld) [Ratio] 0 % 0-5 [facility] Platelet mean volume (Bld) [Entitic vol] 10.4 fL 6.2-12.0 [facility] Platelets (Bld) [#/Vol] 243 10*3/uL 150-450 [facility] RBC Auto (Bld) [#/Vol]Ordere d By: Claudia Anderson on 07-18-2023 RBC (Bld) [#/Vol] 3.42 10*6/uL 4.2-5.4 [facility] Basophil percentageOrdered B y: Claudia Anderson on 07-13-2023 Bilirubin [Mass/Vol] 0.20 mg/dL 0.20-1.00 [facility] Comment on above: For patients on eltr ombopag therapy, use of Dimension [place] TBIL is not recommended. Hemoglobin (Bld) [Mass/Vol] 12.2 g/dL 12.0-15.0 [facility] Protein [Mass/Vol] 6.3 g/dL 6.4-8.2 [facility] WBC (Bld) [#/Vol] 12.9 10*3/uL 4.4-11.0 [facility] Determination of erythrocyte mean corpuscular volume (MCV)Ordered By: Claudia Anderson on 07-13-2023 MCV (RBC) [Entitic vol] 106.7 fL 81-99 [facility] Direct bilirubinOrdered By: Claudia Anderson on 07-13-2023 Bilirubin.direct [Mass/Vol] 0.07 mg/dL 0.00-0.30 [facility] Erythrocyte distribution wid th ratioOrdered By: Claudia Anderson on 07-13-2023 Erythrocyte distribution width (RBC) [Ratio] 12.6 % 11.6-14.6 [facility] Erythrocyte distribution wid th standard deviationOrdered By: Claudia Anderson on 07-13-2023 Erythrocyte distribution width (RBC) [Entitic vol] 49.8 fL 35.1-43.9 [facility] Hematocrit Auto (Bld) [Volum e fraction]Ordered By: Claudia Anderson on 07-13-2023 Hematocrit (Bld) [Volume fraction] 38.0 % 37-47 [facility] - Chemistry and C hemistry - challengeOrdered By: Claudiasimran Anderson on 07-13-2023 ALP [Catalytic activity/Vol] 95 U/L 45-117 [facility] ALT [Catalytic activity/Vol] 16 U/L 13-56 [facility] Globulin (S) [Mass/Vol] 3.3 g/dL 2.2-4.2 [facility] Laboratory - Hematology and Cell countsOrdered By: Claudia Anderson on 07-13-2023 MCH (RBC) [Entitic mass] 34.3 pg 27.0-32.0 [facility] MCHC (RBC) [Mass/Vol] 32.1 g/dL 32-36 [facility] Platelet mean volume (Bld) [Entitic vol] 10.6 fL 6.2-12.0 [facility] Platelets (Bld) [#/Vol] 260 10*3/uL 150-450 [facility] No Panel InformationOrdered By: Claudia Anderson on 07-13-2023 Valproic Acid (Depakene) Level 30 ug/mL 50-100 [facility] RBC Auto (Bld) [#/Vol]Ordere d By: Claudia Anderson on 07-13-2023 RBC (Bld) [#/Vol] 3.56 10*6/uL 4.2-5.4 [facility] Thin prep Papanicolaou smear with manual screeningOrdered By: Claudia Anderson on 07-13-2023 Thin prep Papanicolaou smear with manual screening 3.0 g/dL 3.2-5.0 [facility] Thin prep Papanicolaou smear with manual screening 11 U/L 15-37 [facility] Basophil percentageOrdered B y: Claudia Anderson on 06-13-2023 Chloride [Moles/Vol] 104 mmol/L 98-107 [facility] Glucose [Mass/Vol] 72 mg/dL 74-106 [facility] Hemoglobin (Bld) [Mass/Vol] 11.1 g/dL 12.0-15.0 [facility] Potassium [Moles/Vol] 4.4 mmol/L 3.5-5.1 [facility] Sodium [Moles/Vol] 139 mmol/L 136-145 [facility] WBC (Bld) [#/Vol] 5.9 10*3/uL 4.4-11.0 [facility] Determination of erythrocyte mean corpuscular volume (MCV)Ordered By: Claudia Anedrson on 06-13-2023 MCV (RBC) [Entitic vol] 108.0 fL 81-99 [facility] Erythrocyte distribution wid th ratioOrdered By: Claudia Anderson on 06-13-2023 Erythrocyte distribution width (RBC) [Ratio] 13.6 % 11.6-14.6 [facility] Erythrocyte distribution wid th standard deviationOrdered By: Claudia Anderson on 06-13-2023 Erythrocyte distribution width (RBC) [Entitic vol] 54.8 fL 35.1-43.9 [facility] Hematocrit Auto (Bld) [Volum e fraction]Ordered By: Claudia Anderson on 06-13-2023 Hematocrit (Bld) [Volume fraction] 35.0 % 37-47 [facility] - Chemistry and C hemistry - challengeOrdered By: Claudia Anderson on 06-13-2023 CO2 [Moles/Vol] 31.0 mmol/L 21.0-32.0 [facility] Urea nitrogen/Creatinine [Mass ratio] 12.9 mg/mg 10-20 [facility] - Hematology and Cell countsOrdered By: Claudia Anderson on 06-13-2023 MCH (RBC) [Entitic mass] 34.3 pg 27.0-32.0 [facility] MCHC (RBC) [Mass/Vol] 31.7 g/dL 32-36 [facility] Platelet mean volume (Bld) [Entitic vol] 10.4 fL 6.2-12.0 [facility] Platelets (Bld) [#/Vol] 219 10*3/uL 150-450 [facility] No Panel InformationOrdered By: Claudia Anderson on 06-13-2023 Estimated GFR (MDRD) Amer 94 mL/min >60 [facility] Comment on above: GFR Calc Estimated GFR (MDRD) Non-Af Amer 78 mL/min >60 [facility] Comment on above: Non- GFR Calc RBC Auto (Bld) [#/Vol]Ordere d By: Claudia Anderson on 06-13-2023 RBC (Bld) [#/Vol] 3.24 10*6/uL 4.2-5.4 [facility] Serum or plasma calcium moriah urement (mass/volume)Ordered By: Claudia Anderson on 06-13-2023 Calcium [Mass/Vol] 8.5 mg/dL 8.5-10.1 [facility] Serum or plasma creatinine m easurement (mass/volume)Ordered By: Claudia Anderson on 06-13-2023 Creatinine [Mass/Vol] 0.77 mg/dL 0.55-1.02 [facility] Comment on above: The validity of the calculated GFR & GFRAA in patients over 70 years has not been determined. Clinical correlation is essential. Serum or plasma urea nitroge n measurement (mass/volume)Ordered By: Claudia Anderson on 06-13-2023 Urea nitrogen [Mass/Vol] 10 mg/dL 7-18 [facility] Thin prep Papanicolaou smear with manual screeningOrdered By: Claudia Anderson on 06-13-2023 Thin prep Papanicolaou smear with manual screening 4 5-15 [facility] Basophil percentageOrdered B y: Claudia Anderson on 05-30-2023 Chloride [Moles/Vol] 108 mmol/L 98-107 [facility] Glucose [Mass/Vol] 75 mg/dL 74-106 [facility] Potassium [Moles/Vol] 4.9 mmol/L 3.5-5.1 [facility] Sodium [Moles/Vol] 144 mmol/L 136-145 [facility] Laboratory - Chemistry and C hemistry - challengeOrdered By: Claudia Anderson on 05-30-2023 CO2 [Moles/Vol] 34.0 mmol/L 21.0-32.0 [facility] Urea nitrogen/Creatinine [Mass ratio] 10.9 mg/mg 10-20 [facility] No Panel InformationOrdered By: Claudia Anderson on 05-30-2023 Estimated GFR (MDRD) Amer 87 mL/min >60 [facility] Comment on above: GFR Calc Estimated GFR (MDRD) Non-Af Amer 72 mL/min >60 [facility] Comment on above: Non- GFR Calc Serum or plasma calcium moriah urement (mass/volume)Ordered By: Claudia Anderson on 05-30-2023 Calcium [Mass/Vol] 8.5 mg/dL 8.5-10.1 [facility] Serum or plasma creatinine m easurement (mass/volume)Ordered By: Claudia Anderson on 05-30-2023 Creatinine [Mass/Vol] 0.83 mg/dL 0.55-1.02 [facility] Comment on above: The validity of the calculated GFR & GFRAA in patients over 70 years has not been determined. Clinical correlation is essential. Serum or plasma thyroid stim ulating hormone (TSH) measurement (units/volume)Ordered By: Claudia Anderson on 05-30-2023 TSH Qn 2.71 uIU/mL 0.358-3.74 [facility] Serum or plasma urea nitroge n measurement (mass/volume)Ordered By: Claudia Anderson on 05-30-2023 Urea nitrogen [Mass/Vol] 9 mg/dL 7-18 [facility] Thin prep Papanicolaou smear with manual screeningOrdered By: Claudia Anderson on 05-30-2023 Thin prep Papanicolaou smear with manual screening 2 5-15 [facility] Basophil percentageOrdered B y: Claudia Anderson on 04-13-2023 Bilirubin [Mass/Vol] 0.20 mg/dL 0.20-1.00 [facility] Comment on above: For patients on eltr ombopag therapy, use of Dimension [place] TBIL is not recommended. Hemoglobin (Bld) [Mass/Vol] 11.1 g/dL 12.0-15.0 [facility] Protein [Mass/Vol] 5.6 g/dL 6.4-8.2 [facility] WBC (Bld) [#/Vol] 6.6 10*3/uL 4.4-11.0 [facility] Determination of erythrocyte mean corpuscular volume (MCV)Ordered By: Claudia Anderson on 04-13-2023 MCV (RBC) [Entitic vol] 107.7 fL 81-99 [facility] Direct bilirubinOrdered By: Claudia Anderson on 04-13-2023 Bilirubin.direct [Mass/Vol] mg/dL 0.00-0.30 [facility] Erythrocyte distribution wid th ratioOrdered By: Claudia Anderson on 04-13-2023 Erythrocyte distribution width (RBC) [Ratio] 13.4 % 11.6-14.6 [facility] Erythrocyte distribution wid th standard deviationOrdered By: Claudia Anderson on 04-13-2023 Erythrocyte distribution width (RBC) [Entitic vol] 53.7 fL 35.1-43.9 [facility] Hematocrit Auto (Bld) [Volum e fraction]Ordered By: Claudia Anderson on 04-13-2023 Hematocrit (Bld) [Volume fraction] 36.3 % 37-47 [facility] - Chemistry and C hemistry - challengeOrdered By: Claudia Anderson on 04-13-2023 ALP [Catalytic activity/Vol] 74 U/L 45-117 [facility] ALT [Catalytic activity/Vol] 10 U/L 13-56 [facility] Globulin (S) [Mass/Vol] 3.0 g/dL 2.2-4.2 [facility] - Hematology and Cell countsOrdered By: Claudia Andesron on 04-13-2023 MCH (RBC) [Entitic mass] 32.9 pg 27.0-32.0 [facility] MCHC (RBC) [Mass/Vol] 30.6 g/dL 32-36 [facility] Platelets (Bld) [#/Vol] 197 10*3/uL 150-450 [facility] No Panel InformationOrdered By: Claudia Anderson on 04-13-2023 Valproic Acid (Depakene) Level 52 ug/mL 50-100 [facility] Platelet mean volume Christiano-Ec ker (Bld) [Entitic vol]Ordered By: Claudia Anderson on 04-13-2023 Platelet mean volume (Bld) [Entitic vol] 10.4 fL 6.2-12.0 [facility] RBC Auto (Bld) [#/Vol]Ordere d By: Claudia Anderson on 04-13-2023 RBC (Bld) [#/Vol] 3.37 10*6/uL 4.2-5.4 [facility] Thin prep Papanicolaou smear with manual screeningOrdered By: Claudia Anderson on 04-13-2023 Thin prep Papanicolaou smear with manual screening 2.6 g/dL 3.2-5.0 [facility] Thin prep Papanicolaou smear with manual screening 10 U/L 15-37 [facility] Basophil percentageOrdered B y: Claudia Anderson on 01-25-2023 Bilirubin [Mass/Vol] 0.30 mg/dL 0.20-1.00 [facility] Comment on above: For patients on eltr ombopag therapy, use of Dimension [place] TBIL is not recommended. Chloride [Moles/Vol] 105 mmol/L 98-107 [facility] Glucose [Mass/Vol] 90 mg/dL 74-106 [facility] Potassium [Moles/Vol] 4.5 mmol/L 3.5-5.1 [facility] Protein [Mass/Vol] 6.2 g/dL 6.4-8.2 [facility] Sodium [Moles/Vol] 140 mmol/L 136-145 [facility] Laboratory - Chemistry and C hemistry - challengeOrdered By: Claudia Anderson on 01-25-2023 ALP [Catalytic activity/Vol] 75 U/L 45-117 [facility] ALT [Catalytic activity/Vol] 8 U/L 13-56 [facility] CO2 [Moles/Vol] 32.0 mmol/L 21.0-32.0 [facility] Globulin (S) [Mass/Vol] 3.4 g/dL 2.2-4.2 [facility] Urea nitrogen/Creatinine [Mass ratio] 13.9 mg/mg 10-20 [facility] No Panel InformationOrdered By: Claudia Anderson on 01-25-2023 Estimated GFR (MDRD) Amer 92 mL/min >60 [facility] Comment on above: GFR Calc Estimated GFR (MDRD) Non-Af Amer 76 mL/min >60 [facility] Comment on above: Non- GFR Calc Serum or plasma albumin moriah urement (mass/volume)Ordered By: Claudia Anderson on 01-25-2023 Albumin [Mass/Vol] 2.8 g/dL 3.2-5.0 [facility] Serum or plasma albumin/glob ulin mass ratioOrdered By: Claudia Anderson on 01-25-2023 Albumin/Globulin [Mass ratio] 0.8 {ratio} 0.9-2.4 [facility] Serum or plasma calcium moriah urement (mass/volume)Ordered By: Claudia Anderson on 01-25-2023 Calcium [Mass/Vol] 8.6 mg/dL 8.5-10.1 [facility] Serum or plasma creatinine m easurement (mass/volume)Ordered By: Claudia Anderson on 01-25-2023 Creatinine [Mass/Vol] 0.79 mg/dL 0.55-1.02 [facility] Comment on above: The validity of the calculated GFR & GFRAA in patients over 70 years has not been determined. Clinical correlation is essential. Serum or plasma urea nitroge n measurement (mass/volume)Ordered By: Claudia Anderson on 01-25-2023 Urea nitrogen [Mass/Vol] 11 mg/dL 7-18 [facility] Thin prep Papanicolaou smear with manual screeningOrdered By: Claudia Anderson on 01-25-2023 Thin prep Papanicolaou smear with manual screening 10 U/L 15-37 [facility] Thin prep Papanicolaou smear with manual screening 3 5-15 [facility] Basophil percentageOrdered B y: Claudia Anderson on 01-11-2023 Bilirubin [Mass/Vol] 0.20 mg/dL 0.20-1.00 [facility] Comment on above: For patients on eltr ombopag therapy, use of Dimension [place] TBIL is not recommended. Protein [Mass/Vol] 5.6 g/dL 6.4-8.2 [facility] WBC (Bld) [#/Vol] 5.7 10*3/uL 4.4-11.0 [facility] Blood erythrocytes count (nu mber/volume)Ordered By: Claudia Anderson on 01-11-2023 RBC (Bld) [#/Vol] 3.43 10*6/uL 4.2-5.4 [facility] Blood hemoglobin measurement (mass/volume)Ordered By: Claudia Anderson on 01-11-2023 Hemoglobin (Bld) [Mass/Vol] 11.3 g/dL 12.0-15.0 [facility] Blood platelet mean volumeOr dered By: Claudia Anderson on 01-11-2023 Platelet mean volume (Bld) [Entitic vol] 9.8 fL 6.2-12.0 [facility] Determination of erythrocyte mean corpuscular volume (MCV)Ordered By: Claudia Anderson on 01-11-2023 MCV (RBC) [Entitic vol] 103.8 fL 81-99 [facility] Direct bilirubinOrdered By: Claudia Anderson on 01-11-2023 Bilirubin.direct [Mass/Vol] mg/dL 0.00-0.30 [facility] Hematocrit Auto (Bld) [Volum e fraction]Ordered By: Claudia Anderson on 01-11-2023 Hematocrit (Bld) [Volume fraction] 35.6 % 37-47 [facility] - Chemistry and C hemistry - challengeOrdered By: Claudia Anderson on 01-11-2023 ALP [Catalytic activity/Vol] 83 U/L 45-117 [facility] ALT [Catalytic activity/Vol] 13 U/L 13-56 [facility] Globulin (S) [Mass/Vol] 3.0 g/dL 2.2-4.2 [facility] Laboratory - Hematology and Cell countsOrdered By: Claudia Anderson on 01-11-2023 Erythrocyte distribution width (RBC) [Entitic vol] 53.4 fL 35.1-43.9 [facility] Erythrocyte distribution width (RBC) [Ratio] 14.2 % 11.6-14.6 [facility] MCH (RBC) [Entitic mass] 32.9 pg 27.0-32.0 [facility] MCHC Auto (RBC) [Mass/Vol]Or dered By: Claudia Anderson on 01-11-2023 MCHC (RBC) [Mass/Vol] 31.7 g/dL 32-36 [facility] No Panel InformationOrdered By: Claudia Anderson on 01-11-2023 Valproic Acid (Depakene) Level 48 ug/mL 50-100 [facility] Platelets bldOrdered By: Po Anderson on 01-11-2023 Platelets (Bld) [#/Vol] 205 10*3/uL 150-450 [facility] Serum or plasma albumin moriah urement (mass/volume)Ordered By: Claudia Anderson on 01-11-2023 Albumin [Mass/Vol] 2.6 g/dL 3.2-5.0 [facility] Thin prep Papanicolaou smear with manual screeningOrdered By: Claudia Anderson on 01-11-2023 Thin prep Papanicolaou smear with manual screening 12 U/L 15-37 [facility] Absolute lymphocyte countOrd ered By: Claudia Anderson on 12-20-2022 Lymphocytes Auto (Unsp spec) [#/Vol] 2.76 10*3/uL 0.83-4.51 [facility] Basophil percentageOrdered B y: Claudia Anderson on 12-20-2022 Basophils/100 WBC (Bld) 0.8 % 0-1 [facility] Chloride [Moles/Vol] 106 mmol/L 98-107 [facility] Eosinophils/100 WBC (Bld) 6.6 % 0-5 [facility] Glucose [Mass/Vol] 87 mg/dL 74-106 [facility] Neutrophils (Bld) [#/Vol] 1.6 10*3/uL 2.0-7.7 [facility] Neutrophils/100 WBC (Bld) 30.7 % 47-70 [facility] Potassium [Moles/Vol] 3.9 mmol/L 3.5-5.1 [facility] Sodium [Moles/Vol] 143 mmol/L 136-145 [facility] WBC (Bld) [#/Vol] 5.3 10*3/uL 4.4-11.0 [facility] Blood erythrocytes count (nu mber/volume)Ordered By: Claudia Anderson on 12-20-2022 RBC (Bld) [#/Vol] 3.71 10*6/uL 4.2-5.4 [facility] Blood hemoglobin measurement (mass/volume)Ordered By: Claudia Anderson on 12-20-2022 Hemoglobin (Bld) [Mass/Vol] 12.2 g/dL 12.0-15.0 [facility] Blood lymphocytes/100 leukoc ytesOrdered By: Claudia Anderson on 12-20-2022 Lymphocytes/100 WBC (Bld) 52.1 % 19-41 [facility] Blood monocytes/100 leukocyt esOrdered By: Claudia Anderson on 12-20-2022 Monocytes/100 WBC (Bld) 9.4 % 0-10 [facility] Blood platelet mean volumeOr dered By: Claudia Anderson on 12-20-2022 Platelet mean volume (Bld) [Entitic vol] 9.2 fL 6.2-12.0 [facility] Determination of erythrocyte mean corpuscular volume (MCV)Ordered By: Claudia Anderson on 12-20-2022 MCV (RBC) [Entitic vol] 104.0 fL 81-99 [facility] Hematocrit Auto (Bld) [Volum e fraction]Ordered By: Claudia Anderson on 12-20-2022 Hematocrit (Bld) [Volume fraction] 38.6 % 37-47 [facility] Laboratory - Chemistry and C hemistry - challengeOrdered By: Claudia Anderson on 12-20-2022 CO2 [Moles/Vol] 35.0 mmol/L 21.0-32.0 [facility] Urea nitrogen/Creatinine [Mass ratio] 9.3 mg/mg 10-20 [facility] Laboratory - Hematology and Cell countsOrdered By: Claudia Anderson on 12-20-2022 Erythrocyte distribution width (RBC) [Entitic vol] 52.6 fL 35.1-43.9 [facility] Erythrocyte distribution width (RBC) [Ratio] 13.8 % 11.6-14.6 [facility] Immature granulocytes/100 WBC (Bld) 0.400 % 0.0-0.9 [facility] Comment on above: IG% - Immature Granu locytes (promyelocytes, myelocytes and metamyelocytes) > 1% indicates that a LEFT SHIFT is Present. MCH (RBC) [Entitic mass] 32.9 pg 27.0-32.0 [facility] Nucleated RBC/100 WBC (Bld) [Ratio] 0 % 0-5 [facility] MCHC Auto (RBC) [Mass/Vol]Or dered By: Claudia Anderson on 12-20-2022 MCHC (RBC) [Mass/Vol] 31.6 g/dL 32-36 [facility] No Panel InformationOrdered By: Claudia Anderson on 12-20-2022 Estimated GFR (MDRD) Amer 97 mL/min >60 [facility] Comment on above: GFR Calc Estimated GFR (MDRD) Non-Af Amer 80 mL/min >60 [facility] Comment on above: Non- GFR Calc Platelets bldOrdered By: Po Anderson on 12-20-2022 Platelets (Bld) [#/Vol] 316 10*3/uL 150-450 [facility] Serum or plasma C reactive p rotein measurement (mass/volume)Ordered By: Claudia Anderson on 10-02-2023 CRP [Mass/Vol] 35.70 mg/L 0.0-3.0 [facility] Comment on above: C-Reactive Protein ( CRP) provides useful information for thediagnosis, therapy and monitoring of inflammatory processesand associated diseases. For the evaluation of Relative Riskfor Cardiovascular Disease, a High Sensitivity CRP (HSCRP)should be ordered. Serum or plasma calcium moriah urement (mass/volume)Ordered By: Claudia Anderson on 12-20-2022 Calcium [Mass/Vol] 8.7 mg/dL 8.5-10.1 [facility] Serum or plasma creatinine m easurement (mass/volume)Ordered By: Claudia Anderson on 12-20-2022 Creatinine [Mass/Vol] 0.76 mg/dL 0.55-1.02 [facility] Comment on above: The validity of the calculated GFR & GFRAA in patients over 70 years has not been determined. Clinical correlation is essential. Serum or plasma urea nitroge n measurement (mass/volume)Ordered By: Claudiasimran Anderson on 12-20-2022 Urea nitrogen [Mass/Vol] 7 mg/dL 7-18 [facility] Thin prep Papanicolaou smear with manual screeningOrdered By: [facility] Monica on 12-20-2022 Thin prep Papanicolaou smear with manual screening 2 5-15 [facility] Absolute lymphocyte countOrd ered By: Claudiasimran Anderson on 12-17-2022 Lymphocytes Auto (Unsp spec) [#/Vol] 1.47 10*3/uL 0.83-4.51 [facility] Basophil percentageOrdered B y: Claudia Anderson on 12-17-2022 Basophils/100 WBC (Bld) 0.5 % 0-1 [facility] Chloride [Moles/Vol] 104 mmol/L 98-107 [facility] Eosinophils/100 WBC (Bld) 6.7 % 0-5 [facility] Glucose [Mass/Vol] 80 mg/dL 74-106 [facility] Neutrophils (Bld) [#/Vol] 3.3 10*3/uL 2.0-7.7 [facility] Neutrophils/100 WBC (Bld) 55.8 % 47-70 [facility] Potassium [Moles/Vol] 4.1 mmol/L 3.5-5.1 [facility] Sodium [Moles/Vol] 136 mmol/L 136-145 [facility] WBC (Bld) [#/Vol] 6.0 10*3/uL 4.4-11.0 [facility] Blood erythrocytes count (nu mber/volume)Ordered By: Claudia Anderson on 12-17-2022 RBC (Bld) [#/Vol] 3.41 10*6/uL 4.2-5.4 [facility] Blood hemoglobin measurement (mass/volume)Ordered By: Claudia Anderson on 12-17-2022 Hemoglobin (Bld) [Mass/Vol] 10.7 g/dL 12.0-15.0 [facility] Blood lymphocytes/100 leukoc ytesOrdered By: Claudia Anderson on 12-17-2022 Lymphocytes/100 WBC (Bld) 24.6 % 19-41 [facility] Blood monocytes/100 leukocyt esOrdered By: Claudia Anderson on 12-17-2022 Monocytes/100 WBC (Bld) 12.1 % 0-10 [facility] Blood platelet mean volumeOr dered By: Claudia Anderson on 12-17-2022 Platelet mean volume (Bld) [Entitic vol] 9.6 fL 6.2-12.0 [facility] Determination of erythrocyte mean corpuscular volume (MCV)Ordered By: Claudia Anderson on 12-17-2022 MCV (RBC) [Entitic vol] 103.2 fL 81-99 [facility] Hematocrit Auto (Bld) [Volum e fraction]Ordered By: Claudia Anderson on 12-17-2022 Hematocrit (Bld) [Volume fraction] 35.2 % 37-47 [facility] Laboratory - Chemistry and C hemistry - challengeOrdered By: Claudia Anderson on 12-17-2022 CO2 [Moles/Vol] 30.0 mmol/L 21.0-32.0 [facility] Urea nitrogen/Creatinine [Mass ratio] 15.9 mg/mg 10-20 [facility] Laboratory - Hematology and Cell countsOrdered By: Claudia Anderson on 12-17-2022 Erythrocyte distribution width (RBC) [Entitic vol] 53.8 fL 35.1-43.9 [facility] Erythrocyte distribution width (RBC) [Ratio] 14.1 % 11.6-14.6 [facility] Immature granulocytes/100 WBC (Bld) 0.300 % 0.0-0.9 [facility] Comment on above: IG% - Immature Granu locytes (promyelocytes, myelocytes and metamyelocytes) > 1% indicates that a LEFT SHIFT is Present. MCH (RBC) [Entitic mass] 31.4 pg 27.0-32.0 [facility] Nucleated RBC/100 WBC (Bld) [Ratio] 0 % 0-5 [facility] MCHC Auto (RBC) [Mass/Vol]Or dered By: Claudia Anderson on 12-17-2022 MCHC (RBC) [Mass/Vol] 30.4 g/dL 32-36 [facility] Comment on above: Delta: 32.5 on 12/15-999 No Panel InformationOrdered By: Claudia Anderson on 12-17-2022 Estimated GFR (MDRD) Amer 107 mL/min >60 [facility] Comment on above: GFR Calc Estimated GFR (MDRD) Non-Af Amer 89 mL/min >60 [facility] Comment on above: Non- GFR Calc Platelets bldOrdered By: Po Anderson on 12-17-2022 Platelets (Bld) [#/Vol] 231 10*3/uL 150-450 [facility] Serum or plasma C reactive p rotein measurement (mass/volume)Ordered By: Claudia Anderson on 12-17-2022 CRP [Mass/Vol] 160.00 mg/L 0.0-3.0 [facility] Comment on above: C-Reactive Protein ( CRP) provides useful information for thediagnosis, therapy and monitoring of inflammatory processesand associated diseases. For the evaluation of Relative Riskfor Cardiovascular Disease, a High Sensitivity CRP (HSCRP)should be ordered. Serum or plasma calcium moriah urement (mass/volume)Ordered By: Claudia Anderson on 12-17-2022 Calcium [Mass/Vol] 8.2 mg/dL 8.5-10.1 [facility] Serum or plasma creatinine m easurement (mass/volume)Ordered By: Claudia Anderson on 12-17-2022 Creatinine [Mass/Vol] 0.69 mg/dL 0.55-1.02 [facility] Comment on above: The validity of the calculated GFR & GFRAA in patients over 70 years has not been determined. Clinical correlation is essential. Serum or plasma urea nitroge n measurement (mass/volume)Ordered By: Claudia Anderson on 12-17-2022 Urea nitrogen [Mass/Vol] 11 mg/dL 7-18 [facility] Thin prep Papanicolaou smear with manual screeningOrdered By: Claudiasimran Anderson on 12-17-2022 Thin prep Papanicolaou smear with manual screening 2 5-15 [facility] Absolute lymphocyte countOrd ered By: Oniel Valente on 12-15-2022 Lymphocytes Auto (Unsp spec) [#/Vol] 1.45 10*3/uL 0.83-4.51 [facility] Basophil percentageOrdered B y: Oniel Valente on 12-15-2022 Basophil percentage 0 SEEN /hpf 0-5 [facility] Ammonia (P) [Moles/Vol] 20.0 umol/L 11-32 [facility] Basophils/100 WBC (Bld) 0.4 % 0-1 [facility] Bilirubin [Mass/Vol] 0.20 mg/dL 0.20-1.00 [facility] Comment on above: For patients on eltr ombopag therapy, use of Dimension [place] TBIL is not recommended. Chloride [Moles/Vol] 101 mmol/L 98-107 [facility] Eosinophils/100 WBC (Bld) 2.2 % 0-5 [facility] Glucose [Mass/Vol] 98 mg/dL 74-106 [facility] Neutrophils (Bld) [#/Vol] 6.5 10*3/uL 2.0-7.7 [facility] Neutrophils/100 WBC (Bld) 68.4 % 47-70 [facility] Potassium [Moles/Vol] 4.0 mmol/L 3.5-5.1 [facility] Protein [Mass/Vol] 6.3 g/dL 6.4-8.2 [facility] Sodium [Moles/Vol] 134 mmol/L 136-145 [facility] WBC (Bld) [#/Vol] 9.5 10*3/uL 4.4-11.0 [facility] Bilirubin Test strip Ql (U)O rdered By: Oniel Valente on 12-15-2022 Bilirubin Ql (U) Negative Negative [facility] Blood erythrocytes count (nu mber/volume)Ordered By: Oniel Valente on 12-15-2022 RBC (Bld) [#/Vol] 3.62 10*6/uL 4.2-5.4 [facility] Blood hemoglobin measurement (mass/volume)Ordered By: Oniel Valente on 12-15-2022 Hemoglobin (Bld) [Mass/Vol] 11.8 g/dL 12.0-15.0 [facility] Blood lymphocytes/100 leukoc ytesOrdered By: Oniel Valente on 12-15-2022 Lymphocytes/100 WBC (Bld) 15.3 % 19-41 [facility] Blood monocytes/100 leukocyt esOrdered By: Oniel Valente on 12-15-2022 Monocytes/100 WBC (Bld) 13.3 % 0-10 [facility] Blood platelet mean volumeOr dered By: Oniel Valente on 12-15-2022 Platelet mean volume (Bld) [Entitic vol] 9.0 fL 6.2-12.0 [facility] Determination of erythrocyte mean corpuscular volume (MCV)Ordered By: Oniel Valente on 12-15-2022 MCV (RBC) [Entitic vol] 100.3 fL 81-99 [facility] Hematocrit Auto (Bld) [Volum e fraction]Ordered By: Oniel aVlente on 12-15-2022 Hematocrit (Bld) [Volume fraction] 36.3 % 37-47 [facility] Influenza virus A and B and SARS-CoV-2 (COVID-19) Ag panel - Upper respiratory specimOrdered By: Oniel Valente on 12-15-2022 SARS-CoV-2 & FLU Antigen (Rapid) SARS-CoV-2 (COVID 19) [facility] SARS-CoV-2 & FLU Antigen (Rapid) SARS-CoV-2 (COVID 19) [facility] Ketones Test strip Ql (U)Ord ered By: Oniel Valente on 12-15-2022 Ketones Ql (U) Negative Negative [facility] Laboratory - Chemistry and C hemistry - challengeOrdered By: Oniel Valente on 12-15-2022 ALP [Catalytic activity/Vol] 95 U/L 45-117 [facility] ALT [Catalytic activity/Vol] 14 U/L 13-56 [facility] CO2 [Moles/Vol] 30.0 mmol/L 21.0-32.0 [facility] Globulin (S) [Mass/Vol] 3.5 g/dL 2.2-4.2 [facility] Urea nitrogen/Creatinine [Mass ratio] 12.5 mg/mg 10-20 [facility] Laboratory - Hematology and Cell countsOrdered By: Oniel Valente on 12-15-2022 Erythrocyte distribution width (RBC) [Entitic vol] 51.2 fL 35.1-43.9 [facility] Erythrocyte distribution width (RBC) [Ratio] 13.8 % 11.6-14.6 [facility] Immature granulocytes/100 WBC (Bld) 0.400 % 0.0-0.9 [facility] Comment on above: IG% - Immature Granu locytes (promyelocytes, myelocytes and metamyelocytes) > 1% indicates that a LEFT SHIFT is Present. MCH (RBC) [Entitic mass] 32.6 pg 27.0-32.0 [facility] Nucleated RBC/100 WBC (Bld) [Ratio] 0 % 0-5 [facility] MCHC Auto (RBC) [Mass/Vol]Or dered By: Oniel Valente on 12-15-2022 MCHC (RBC) [Mass/Vol] 32.5 g/dL 32-36 [facility] Mucus LM Ql (Urine sed)Order ed By: Oniel Valente on 12-15-2022 Mucus Ql (Urine sed) 0 SEEN /hpf [facility] Nitrite Test strip Ql (U)Ord ered By: Oniel Valente on 12-15-2022 Nitrite Ql (U) Negative Negative [facility] No Panel InformationOrdered By: Oniel Valente on 12-15-2022 Estimated Creatinine Clearance Calc 42.12 ml/min [facility] Estimated GFR (MDRD) Amer 81 mL/min >60 [facility] Comment on above: GFR Calc Estimated GFR (MDRD) Non-Af Amer 67 mL/min >60 [facility] Comment on above: Non- GFR Calc Troponin I High Sensitivity 7 pg/mL 3.0-54.0 [facility] Comment on above: Please Note: New [place] t Units and Gender Specific Reference Ranges. For more information see Policy Stat Procedure [place] High Sensitivity Troponin (TNIH) and attachments. Platelets bldOrdered By: Fredy Valente on 12-15-2022 Platelets (Bld) [#/Vol] 229 10*3/uL 150-450 [facility] Protein Test strip Ql (U)Ord ered By: Oniel Valente on 12-15-2022 Protein Ql (U) Negative Negative [facility] Serum or plasma albumin moriah urement (mass/volume)Ordered By: Oniel Valente on 12-15-2022 Albumin [Mass/Vol] 2.8 g/dL 3.2-5.0 [facility] Serum or plasma albumin/glob ulin mass ratioOrdered By: Oniel Valente on 12-15-2022 Albumin/Globulin [Mass ratio] 0.8 {ratio} 0.9-2.4 [facility] Serum or plasma calcium moriah urement (mass/volume)Ordered By: Oniel Valente on 12-15-2022 Calcium [Mass/Vol] 8.3 mg/dL 8.5-10.1 [facility] Serum or plasma creatinine m easurement (mass/volume)Ordered By: Oniel Valente on 12-15-2022 Creatinine [Mass/Vol] 0.88 mg/dL 0.55-1.02 [facility] Comment on above: The validity of the calculated GFR & GFRAA in patients over 70 years has not been determined. Clinical correlation is essential. Serum or plasma urea nitroge n measurement (mass/volume)Ordered By: Oniel Valente on 12-15-2022 Urea nitrogen [Mass/Vol] 11 mg/dL 7-18 [facility] Squamous epithelial cells de tection in urine sediment by light microscopyOrdered By: Oniel Valente on 12-15-2022 Epithelial cells.squamous LM Ql (Urine sed) 0 SEEN /hpf 5-10 [facility] Thin prep Papanicolaou smear with manual screeningOrdered By: Oniel Valente on 12-15-2022 Thin prep Papanicolaou smear with manual screening 13 U/L 15-37 [facility] Thin prep Papanicolaou smear with manual screening 3 5-15 [facility] Urine blood detectionOrdered By: Oniel Valente on 12-15-2022 RBC Ql (U) Negative Negative [facility] RBC Ql (U) 0 SEEN /hpf 0-5 [facility] Urine clarityOrdered By: Fredy Valente on 12-15-2022 Clarity (U) Clear Clear [facility] Urine color determinationOrd ered By: Oniel Valente on 12-15-2022 Color (U) Yellow Yellow [facility] Urine glucose detectionOrder ed By: Oniel Valente on 12-15-2022 Glucose Ql (U) Normal mg/dl Normal [facility] Urine leukocyte esterase det ection by dipstickOrdered By: Oniel Valente on 12-15-2022 Leukocyte esterase Test strip Ql (U) Negative Negative [facility] Urine pHOrdered By: Oniel arana on 12-15-2022 pH (U) 7.0 [pH] 5.0 - 8.0 [facility] Urine sediment bacteria coun t by microscopy (number/high power field)Ordered By: Oniel Valente on 12-15-2022 Bacteria LM.HPF (Urine sed) [#/Area] 0 /[HPF] None Seen [facility] Urine specific gravity measu rementOrdered By: Oniel Valente on 12-15-2022 Specific gravity (U) [Rel density] 1.010 1.002-1.030 [facility] Urobilinogen Auto test strip Ql (U)Ordered By: Oniel Valente on 12-15-2022 Urobilinogen Ql (U) Normal mg/dl Normal [facility] Basophil percentageOrdered B y: Claudia Anderson on 11-17-2022 Basophil percentage < 10.0 umol/L [facility] Absolute lymphocyte countOrd ered By: Claudia Anderson on 09-29-2022 Lymphocytes Auto (Unsp spec) [#/Vol] 2.37 10*3/uL 0.83-4.51 [facility] Basophil percentageOrdered B y: Claudia Anderson on 09-29-2022 Basophils/100 WBC (Bld) 0.9 % 0-1 [facility] Chloride [Moles/Vol] 107 mmol/L 98-107 [facility] Eosinophils/100 WBC (Bld) 5.0 % 0-5 [facility] Glucose [Mass/Vol] 79 mg/dL 74-106 [facility] Neutrophils (Bld) [#/Vol] 1.5 10*3/uL 2.0-7.7 [facility] Neutrophils/100 WBC (Bld) 31.8 % 47-70 [facility] Potassium [Moles/Vol] 3.8 mmol/L 3.5-5.1 [facility] Sodium [Moles/Vol] 142 mmol/L 136-145 [facility] WBC (Bld) [#/Vol] 4.6 10*3/uL 4.4-11.0 [facility] Blood erythrocytes count (nu mber/volume)Ordered By: Claudia Anderson on 09-29-2022 RBC (Bld) [#/Vol] 3.68 10*6/uL 4.2-5.4 [facility] Blood hemoglobin measurement (mass/volume)Ordered By: Claudia Anderson on 09-29-2022 Hemoglobin (Bld) [Mass/Vol] 11.7 g/dL 12.0-15.0 [facility] Blood lymphocytes/100 leukoc ytesOrdered By: Claudia Anderson on 09-29-2022 Lymphocytes/100 WBC (Bld) 52.0 % 19-41 [facility] Blood monocytes/100 leukocyt esOrdered By: Claudia Anderson on 09-29-2022 Monocytes/100 WBC (Bld) 10.1 % 0-10 [facility] Blood platelet mean volumeOr dered By: Claudia Anderson on 09-29-2022 Platelet mean volume (Bld) [Entitic vol] 9.7 fL 6.2-12.0 [facility] Determination of erythrocyte mean corpuscular volume (MCV)Ordered By: Claudia Anderson on 09-29-2022 MCV (RBC) [Entitic vol] 100.8 fL 81-99 [facility] Hematocrit Auto (Bld) [Volum e fraction]Ordered By: Claudia Anderson on 09-29-2022 Hematocrit (Bld) [Volume fraction] 37.1 % 37-47 [facility] Laboratory - Chemistry and C hemistry - challengeOrdered By: Claudia Anderson on 09-29-2022 CO2 [Moles/Vol] 31.0 mmol/L 21.0-32.0 [facility] Urea nitrogen/Creatinine [Mass ratio] 7.1 mg/mg 10-20 [facility] Laboratory - Hematology and Cell countsOrdered By: Claudia Anderson on 09-29-2022 Erythrocyte distribution width (RBC) [Entitic vol] 50.7 fL 35.1-43.9 [facility] Erythrocyte distribution width (RBC) [Ratio] 13.6 % 11.6-14.6 [facility] Immature granulocytes/100 WBC (Bld) 0.200 % 0.0-0.9 [facility] Comment on above: IG% - Immature Granu locytes (promyelocytes, myelocytes and metamyelocytes) > 1% indicates that a LEFT SHIFT is Present. MCH (RBC) [Entitic mass] 31.8 pg 27.0-32.0 [facility] Nucleated RBC/100 WBC (Bld) [Ratio] 0 % 0-5 [facility] MCHC Auto (RBC) [Mass/Vol]Or dered By: Claudia Anderson on 09-29-2022 MCHC (RBC) [Mass/Vol] 31.5 g/dL 32-36 [facility] No Panel InformationOrdered By: Claudia Anderson on 09-29-2022 Estimated GFR (MDRD) Amer 105 mL/min >60 [facility] Comment on above: GFR Calc Estimated GFR (MDRD) Non-Af Amer 87 mL/min >60 [facility] Comment on above: Non- GFR Calc Platelets bldOrdered By: Po Anderson on 09-29-2022 Platelets (Bld) [#/Vol] 269 10*3/uL 150-450 [facility] Serum or plasma calcium moriah urement (mass/volume)Ordered By: Claudia Anderson on 09-29-2022 Calcium [Mass/Vol] 8.3 mg/dL 8.5-10.1 [facility] Serum or plasma creatinine m easurement (mass/volume)Ordered By: Claudia Anderson on 09-29-2022 Creatinine [Mass/Vol] 0.71 mg/dL 0.55-1.02 [facility] Comment on above: The validity of the calculated GFR & GFRAA in patients over 70 years has not been determined. Clinical correlation is essential. Serum or plasma urea nitroge n measurement (mass/volume)Ordered By: Claudia Anderson on 09-29-2022 Urea nitrogen [Mass/Vol] 5 mg/dL 7-18 [facility] Thin prep Papanicolaou smear with manual screeningOrdered By: Claudiasimran Anderson on 09-29-2022 Thin prep Papanicolaou smear with manual screening 4 5-15 [facility] Absolute lymphocyte countOrd ered By: Claudia Anderson on 09-22-2022 Lymphocytes Auto (Unsp spec) [#/Vol] 2.33 10*3/uL 0.83-4.51 [facility] Basophil percentageOrdered B y: Claudia Anderson on 09-22-2022 Basophils/100 WBC (Bld) 0.6 % 0-1 [facility] Chloride [Moles/Vol] 107 mmol/L 98-107 [facility] Eosinophils/100 WBC (Bld) 6.0 % 0-5 [facility] Glucose [Mass/Vol] 78 mg/dL 74-106 [facility] Neutrophils (Bld) [#/Vol] 2.9 10*3/uL 2.0-7.7 [facility] Neutrophils/100 WBC (Bld) 45.4 % 47-70 [facility] Potassium [Moles/Vol] 4.2 mmol/L 3.5-5.1 [facility] Sodium [Moles/Vol] 140 mmol/L 136-145 [facility] WBC (Bld) [#/Vol] 6.3 10*3/uL 4.4-11.0 [facility] Blood erythrocytes count (nu mber/volume)Ordered By: Claudia Anderson on 09-22-2022 RBC (Bld) [#/Vol] 3.55 10*6/uL 4.2-5.4 [facility] Blood hemoglobin measurement (mass/volume)Ordered By: Claudia Anderson on 09-22-2022 Hemoglobin (Bld) [Mass/Vol] 11.4 g/dL 12.0-15.0 [facility] Blood lymphocytes/100 leukoc ytesOrdered By: Claudia Anderson on 09-22-2022 Lymphocytes/100 WBC (Bld) 36.9 % 19-41 [facility] Blood monocytes/100 leukocyt esOrdered By: Claudia Anderson on 09-22-2022 Monocytes/100 WBC (Bld) 10.8 % 0-10 [facility] Blood platelet mean volumeOr dered By: Claudia Anderson on 09-22-2022 Platelet mean volume (Bld) [Entitic vol] 10.1 fL 6.2-12.0 [facility] Determination of erythrocyte mean corpuscular volume (MCV)Ordered By: Claudia Anderson on 09-22-2022 MCV (RBC) [Entitic vol] 103.1 fL 81-99 [facility] Hematocrit Auto (Bld) [Volum e fraction]Ordered By: Claudia Anderson on 09-22-2022 Hematocrit (Bld) [Volume fraction] 36.6 % 37-47 [facility] Laboratory - Chemistry and C hemistry - challengeOrdered By: Claudia Anderson on 09-22-2022 CO2 [Moles/Vol] 28.0 mmol/L 21.0-32.0 [facility] Urea nitrogen/Creatinine [Mass ratio] 11.8 mg/mg 10-20 [facility] Laboratory - Hematology and Cell countsOrdered By: Claudia Anderson on 09-22-2022 Erythrocyte distribution width (RBC) [Entitic vol] 53.5 fL 35.1-43.9 [facility] Erythrocyte distribution width (RBC) [Ratio] 13.9 % 11.6-14.6 [facility] Immature granulocytes/100 WBC (Bld) 0.300 % 0.0-0.9 [facility] Comment on above: IG% - Immature Granu locytes (promyelocytes, myelocytes and metamyelocytes) > 1% indicates that a LEFT SHIFT is Present. MCH (RBC) [Entitic mass] 32.1 pg 27.0-32.0 [facility] Nucleated RBC/100 WBC (Bld) [Ratio] 0 % 0-5 [facility] MCHC Auto (RBC) [Mass/Vol]Or dered By: Claudia Anderson on 09-22-2022 MCHC (RBC) [Mass/Vol] 31.1 g/dL 32-36 [facility] No Panel InformationOrdered By: Claudia Anderson on 09-22-2022 Estimated GFR (MDRD) Amer 96 mL/min >60 [facility] Comment on above: GFR Calc Estimated GFR (MDRD) Non-Af Amer 79 mL/min >60 [facility] Comment on above: Non- GFR Calc Platelets bldOrdered By: Po Anderson on 09-22-2022 Platelets (Bld) [#/Vol] 242 10*3/uL 150-450 [facility] Serum or plasma calcium moriah urement (mass/volume)Ordered By: Claudia Anderson on 09-22-2022 Calcium [Mass/Vol] 8.5 mg/dL 8.5-10.1 [facility] Serum or plasma creatinine m easurement (mass/volume)Ordered By: Claudia Anderson on 09-22-2022 Creatinine [Mass/Vol] 0.76 mg/dL 0.55-1.02 [facility] Comment on above: The validity of the calculated GFR & GFRAA in patients over 70 years has not been determined. Clinical correlation is essential. Serum or plasma urea nitroge n measurement (mass/volume)Ordered By: Claudia Anderson on 09-22-2022 Urea nitrogen [Mass/Vol] 9 mg/dL 7-18 [facility] Thin prep Papanicolaou smear with manual screeningOrdered By: Claudia Anderson on 09-22-2022 Thin prep Papanicolaou smear with manual screening 5 5-15 [facility] Absolute lymphocyte countOrd ered By: Claudia Anderson on 09-15-2022 Lymphocytes Auto (Unsp spec) [#/Vol] 2.14 10*3/uL 0.83-4.51 [facility] Basophil percentageOrdered B y: Claudia Anderson on 09-15-2022 Basophils/100 WBC (Bld) 1.0 % 0-1 [facility] Chloride [Moles/Vol] 110 mmol/L 98-107 [facility] Eosinophils/100 WBC (Bld) 7.0 % 0-5 [facility] Glucose [Mass/Vol] 79 mg/dL 74-106 [facility] Neutrophils (Bld) [#/Vol] 2.0 10*3/uL 2.0-7.7 [facility] Neutrophils/100 WBC (Bld) 38.2 % 47-70 [facility] Potassium [Moles/Vol] 4.4 mmol/L 3.5-5.1 [facility] Sodium [Moles/Vol] 141 mmol/L 136-145 [facility] WBC (Bld) [#/Vol] 5.1 10*3/uL 4.4-11.0 [facility] Blood erythrocytes count (nu mber/volume)Ordered By: Claudia Anderson on 09-15-2022 RBC (Bld) [#/Vol] 3.49 10*6/uL 4.2-5.4 [facility] Blood hemoglobin measurement (mass/volume)Ordered By: Claudia Anderson on 09-15-2022 Hemoglobin (Bld) [Mass/Vol] 11.0 g/dL 12.0-15.0 [facility] Blood lymphocytes/100 leukoc ytesOrdered By: Claudia Anderson on 09-15-2022 Lymphocytes/100 WBC (Bld) 41.9 % 19-41 [facility] Blood monocytes/100 leukocyt esOrdered By: Claudia Anderson on 09-15-2022 Monocytes/100 WBC (Bld) 11.7 % 0-10 [facility] Blood platelet mean volumeOr dered By: Claudia Anderson on 09-15-2022 Platelet mean volume (Bld) [Entitic vol] 10.0 fL 6.2-12.0 [facility] Determination of erythrocyte mean corpuscular volume (MCV)Ordered By: Claudia Anderson on 09-15-2022 MCV (RBC) [Entitic vol] 102.0 fL 81-99 [facility] Hematocrit Auto (Bld) [Volum e fraction]Ordered By: Claudia Anderson on 09-15-2022 Hematocrit (Bld) [Volume fraction] 35.6 % 37-47 [facility] Laboratory - Chemistry and C hemistry - challengeOrdered By: Claudia Anderson on 09-15-2022 CO2 [Moles/Vol] 28.0 mmol/L 21.0-32.0 [facility] Urea nitrogen/Creatinine [Mass ratio] 15.2 mg/mg 10-20 [facility] Laboratory - Hematology and Cell countsOrdered By: Claudia Anderson on 09-15-2022 Erythrocyte distribution width (RBC) [Entitic vol] 52.8 fL 35.1-43.9 [facility] Erythrocyte distribution width (RBC) [Ratio] 14.1 % 11.6-14.6 [facility] Immature granulocytes/100 WBC (Bld) 0.200 % 0.0-0.9 [facility] Comment on above: IG% - Immature Granu locytes (promyelocytes, myelocytes and metamyelocytes) > 1% indicates that a LEFT SHIFT is Present. MCH (RBC) [Entitic mass] 31.5 pg 27.0-32.0 [facility] Nucleated RBC/100 WBC (Bld) [Ratio] 0 % 0-5 [facility] MCHC Auto (RBC) [Mass/Vol]Or dered By: Claudia Anderson on 09-15-2022 MCHC (RBC) [Mass/Vol] 30.9 g/dL 32-36 [facility] No Panel InformationOrdered By: Claudia Anderson on 09-15-2022 Estimated GFR (MDRD) Amer 84 mL/min >60 [facility] Comment on above: GFR Calc Estimated GFR (MDRD) Non-Af Amer 70 mL/min >60 [facility] Comment on above: Non- GFR Calc Platelets bldOrdered By: Po Anderson on 09-15-2022 Platelets (Bld) [#/Vol] 277 10*3/uL 150-450 [facility] Serum or plasma calcium moriah urement (mass/volume)Ordered By: Claudia Anderson on 06-28-2023 Calcium [Mass/Vol] 8.0 mg/dL 8.5-10.1 [facility] Serum or plasma creatinine m easurement (mass/volume)Ordered By: Claudia Anderson on 09-15-2022 Creatinine [Mass/Vol] 0.85 mg/dL 0.55-1.02 [facility] Comment on above: The validity of the calculated GFR & GFRAA in patients over 70 years has not been determined. Clinical correlation is essential. Serum or plasma urea nitroge n measurement (mass/volume)Ordered By: Claudia Anderson on 09-15-2022 Urea nitrogen [Mass/Vol] 13 mg/dL 7-18 [facility] Thin prep Papanicolaou smear with manual screeningOrdered By: Claudia Anderson on 09-15-2022 Thin prep Papanicolaou smear with manual screening 3 5-15 [facility] Absolute lymphocyte countOrd ered By: Dr. Anderson on 09-08-2022 Lymphocytes Auto (Unsp spec) [#/Vol] 2.41 10*3/uL 0.83-4.51 [facility] Basophil percentageOrdered B y: Dr. Anderson on 09-08-2022 Basophil percentage 84 mg/dL 74-106 [facility] Basophil percentage 139 mmol/L 136-145 [facility] Basophil percentage 4.6 mmol/L 3.5-5.1 [facility] Basophil percentage 106 mmol/L 98-107 [facility] Basophils (Bld) [#/Vol] 5.9 10*3/uL 4.4-11.0 [facility] Basophils (Bld) [#/Vol] 2.4 10*3/uL 2.0-7.7 [facility] Basophils/100 WBC (Bld) 40.7 % 47-70 [facility] Basophils/100 WBC (Bld) 6.6 % 0-5 [facility] Basophils/100 WBC (Bld) 0.8 % 0-1 [facility] Basophil percentageOrdered B y: Claudia Anderson on 09-08-2022 Chloride [Moles/Vol] 106 mmol/L 98-107 [facility] Eosinophils/100 WBC (Bld) 6.6 % 0-5 [facility] Glucose [Mass/Vol] 84 mg/dL 74-106 [facility] Neutrophils (Bld) [#/Vol] 2.4 10*3/uL 2.0-7.7 [facility] Neutrophils/100 WBC (Bld) 40.7 % 47-70 [facility] Potassium [Moles/Vol] 4.6 mmol/L 3.5-5.1 [facility] Sodium [Moles/Vol] 139 mmol/L 136-145 [facility] WBC (Bld) [#/Vol] 5.9 10*3/uL 4.4-11.0 [facility] Blood erythrocytes count (nu mber/volume)Ordered By: Dr. Anderson on 09-08-2022 RBC (Bld) [#/Vol] 3.63 10*6/uL 4.2-5.4 [facility] Blood hemoglobin measurement (mass/volume)Ordered By: Dr. Anderson on 09-08-2022 Hemoglobin (Bld) [Mass/Vol] 11.5 g/dL 12.0-15.0 [facility] Blood lymphocytes/100 leukoc ytesOrdered By: Dr. Anderson on 09-08-2022 Lymphocytes/100 WBC (Bld) 40.8 % 19-41 [facility] Blood monocytes/100 leukocyt esOrdered By: Dr. Anderson on 09-08-2022 Monocytes/100 WBC (Bld) 10.8 % 0-10 [facility] Blood platelet mean volumeOr dered By: Dr. Anderson on 09-08-2022 Platelet mean volume (Bld) [Entitic vol] 9.9 fL 6.2-12.0 [facility] Determination of erythrocyte mean corpuscular volume (MCV)Ordered By: Dr. Anderson on 09-08-2022 MCV (RBC) [Entitic vol] 102.8 fL 81-99 [facility] Hematocrit Auto (Bld) [Volum e fraction]Ordered By: Dr. Anderson on 09-08-2022 Hematocrit (Bld) [Volume fraction] 37.3 % 37-47 [facility] Laboratory - Chemistry and C hemistry - challengeOrdered By: Claudia Anderson on 09-08-2022 CO2 [Moles/Vol] 29.0 mmol/L 21.0-32.0 [facility] Urea nitrogen/Creatinine [Mass ratio] 14.0 mg/mg 10-20 [facility] Laboratory - Hematology and Cell countsOrdered By: Claudia Anderson on 09-08-2022 Erythrocyte distribution width (RBC) [Entitic vol] 51.6 fL 35.1-43.9 [facility] Erythrocyte distribution width (RBC) [Ratio] 13.6 % 11.6-14.6 [facility] Immature granulocytes/100 WBC (Bld) 0.300 % 0.0-0.9 [facility] Comment on above: IG% - Immature Granu locytes (promyelocytes, myelocytes and metamyelocytes) > 1% indicates that a LEFT SHIFT is Present. MCH (RBC) [Entitic mass] 31.7 pg 27.0-32.0 [facility] Nucleated RBC/100 WBC (Bld) [Ratio] 0 % 0-5 [facility] MCHC Auto (RBC) [Mass/Vol]Or dered By: Dr. Anderson on 09-08-2022 MCHC (RBC) [Mass/Vol] 30.8 g/dL 32-36 [facility] No Panel InformationOrdered By: Claudia Anderson on 09-08-2022 Estimated GFR (MDRD) Amer 84 mL/min >60 [facility] Comment on above: GFR Calc Estimated GFR (MDRD) Non-Af Amer 69 mL/min >60 [facility] Comment on above: Non- GFR Calc Vitamin D 25-Hydroxy 49.5 ng/mL [facility] Comment on above: Vitamin D 25(OH) Sta tus Range Deficiency <20 ng/mL (50nmol/L) Insufficiency 20 - 30 ng/mL (50 - 75 nmol/L) Sufficiency 30 - 100 ng/mL (75 - 250 nmol/L) Toxicity >100 ng/mL (>250 nmol/L) No Panel InformationOrdered By: Dr. Anderson on 09-08-2022 31.7 pg 27.0-32.0 [facility] 13.6 % 11.6-14.6 [facility] 51.6 fl 35.1-43.9 [facility] 0.300 % 0.0-0.9 [facility] 0 % 0-5 [facility] 69 mL/min >60 [facility] 84 mL/min >60 [facility] 14.0 RATIO 10-20 [facility] 29.0 mmol/L 21.0-32.0 [facility] 49.5 ng/mL [facility] Platelets bldOrdered By: Dr. Anderson on 09-08-2022 Platelets (Bld) [#/Vol] 270 10*3/uL 150-450 [facility] Serum or plasma calcium moriah urement (mass/volume)Ordered By: Dr. Anderson on 09-08-2022 Calcium [Mass/Vol] 8.7 mg/dL 8.5-10.1 [facility] Serum or plasma creatinine m easurement (mass/volume)Ordered By: Dr. Anderson on 09-08-2022 Creatinine [Mass/Vol] 0.86 mg/dL 0.55-1.02 [facility] Comment on above: The validity of the calculated GFR & GFRAA in patients over 70 years has not been determined. Clinical correlation is essential. Serum or plasma urea nitroge n measurement (mass/volume)Ordered By: Dr. Anderson on 09-08-2022 Urea nitrogen [Mass/Vol] 12 mg/dL 7-18 [facility] Thin prep Papanicolaou smear with manual screeningOrdered By: Dr. Anderson on 09-08-2022 Thin prep Papanicolaou smear with manual screening 4 5-15 [facility] Absolute lymphocyte countOrd ered By: Dr. Anderson on 09-01-2022 Lymphocytes Auto (Unsp spec) [#/Vol] 2.48 10*3/uL 0.83-4.51 [facility] Basophil percentageOrdered B y: Dr. Anderson on 09-01-2022 Basophil percentage 85 mg/dL 74-106 [facility] Basophil percentage 141 mmol/L 136-145 [facility] Basophil percentage 4.2 mmol/L 3.5-5.1 [facility] Basophil percentage 108 mmol/L 98-107 [facility] Basophils (Bld) [#/Vol] 5.5 10*3/uL 4.4-11.0 [facility] Basophils (Bld) [#/Vol] 1.9 10*3/uL 2.0-7.7 [facility] Basophils/100 WBC (Bld) 34.4 % 47-70 [facility] Basophils/100 WBC (Bld) 8.1 % 0-5 [facility] Basophils/100 WBC (Bld) 0.7 % 0-1 [facility] Basophil percentage 0 SEEN /hpf 0-5 [facility] Basophil percentageOrdered B y: Claudia Anderson on 09-01-2022 Chloride [Moles/Vol] 108 mmol/L 98-107 [facility] Eosinophils/100 WBC (Bld) 8.1 % 0-5 [facility] Glucose [Mass/Vol] 85 mg/dL 74-106 [facility] Neutrophils (Bld) [#/Vol] 1.9 10*3/uL 2.0-7.7 [facility] Neutrophils/100 WBC (Bld) 34.4 % 47-70 [facility] Potassium [Moles/Vol] 4.2 mmol/L 3.5-5.1 [facility] Sodium [Moles/Vol] 141 mmol/L 136-145 [facility] WBC (Bld) [#/Vol] 5.5 10*3/uL 4.4-11.0 [facility] Bilirubin Test strip Ql (U)O rdered By: Dr. Anderson on 09-01-2022 Bilirubin Ql (U) Negative Negative [facility] Blood erythrocytes count (nu mber/volume)Ordered By: Dr. Anderson on 09-01-2022 RBC (Bld) [#/Vol] 3.52 10*6/uL 4.2-5.4 [facility] Blood hemoglobin measurement (mass/volume)Ordered By: Dr. Anderson on 09-01-2022 Hemoglobin (Bld) [Mass/Vol] 11.1 g/dL 12.0-15.0 [facility] Blood lymphocytes/100 leukoc ytesOrdered By: Dr. Anderson on 09-01-2022 Lymphocytes/100 WBC (Bld) 44.8 % 19-41 [facility] Blood monocytes/100 leukocyt esOrdered By: Dr. Anderson on 09-01-2022 Monocytes/100 WBC (Bld) 11.6 % 0-10 [facility] Blood platelet mean volumeOr dered By: Dr. Anderson on 09-01-2022 Platelet mean volume (Bld) [Entitic vol] 9.8 fL 6.2-12.0 [facility] Determination of erythrocyte mean corpuscular volume (MCV)Ordered By: Dr. Anderson on 09-01-2022 MCV (RBC) [Entitic vol] 101.7 fL 81-99 [facility] Hematocrit Auto (Bld) [Volum e fraction]Ordered By: Dr. Anderson on 09-01-2022 Hematocrit (Bld) [Volume fraction] 35.8 % 37-47 [facility] Ketones Test strip Ql (U)Ord ered By: Dr. Anderson on 09-01-2022 Ketones Ql (U) Negative Negative [facility] Laboratory - Chemistry and C hemistry - challengeOrdered By: Claudia Anderson on 09-01-2022 CO2 [Moles/Vol] 29.0 mmol/L 21.0-32.0 [facility] Urea nitrogen/Creatinine [Mass ratio] 13.8 mg/mg 10-20 [facility] Laboratory - Hematology and Cell countsOrdered By: Claudia Anderson on 09-01-2022 Erythrocyte distribution width (RBC) [Entitic vol] 51.1 fL 35.1-43.9 [facility] Erythrocyte distribution width (RBC) [Ratio] 13.7 % 11.6-14.6 [facility] Immature granulocytes/100 WBC (Bld) 0.400 % 0.0-0.9 [facility] Comment on above: IG% - Immature Granu locytes (promyelocytes, myelocytes and metamyelocytes) > 1% indicates that a LEFT SHIFT is Present. MCH (RBC) [Entitic mass] 31.5 pg 27.0-32.0 [facility] Nucleated RBC/100 WBC (Bld) [Ratio] 0 % 0-5 [facility] MCHC Auto (RBC) [Mass/Vol]Or dered By: Dr. Anderson on 09-01-2022 MCHC (RBC) [Mass/Vol] 31.0 g/dL 32-36 [facility] Mucus LM Ql (Urine sed)Order ed By: Dr. Anderson on 09-01-2022 Mucus Ql (Urine sed) 0 SEEN /hpf [facility] Nitrite Test strip Ql (U)Ord ered By: Dr. Anderson on 09-01-2022 Nitrite Ql (U) Negative Negative [facility] No Panel InformationOrdered By: Claudia Anderson on 09-01-2022 Estimated GFR (MDRD) Amer 116 mL/min >60 [facility] Comment on above: GFR Calc Estimated GFR (MDRD) Non-Af Amer 96 mL/min >60 [facility] Comment on above: Non- GFR Calc No Panel InformationOrdered By: Dr. Anderson on 09-01-2022 31.5 pg 27.0-32.0 [facility] 13.7 % 11.6-14.6 [facility] 51.1 fl 35.1-43.9 [facility] 0.400 % 0.0-0.9 [facility] 0 % 0-5 [facility] 96 mL/min >60 [facility] 116 mL/min >60 [facility] 13.8 RATIO 10-20 [facility] 29.0 mmol/L 21.0-32.0 [facility] Platelets bldOrdered By: Dr. Anderson on 09-01-2022 Platelets (Bld) [#/Vol] 262 10*3/uL 150-450 [facility] Protein Test strip Ql (U)Ord ered By: Dr. Adnerson on 09-01-2022 Protein Ql (U) Negative Negative [facility] Serum or plasma calcium moriah urement (mass/volume)Ordered By: Dr. Anderson on 09-01-2022 Calcium [Mass/Vol] 8.3 mg/dL 8.5-10.1 [facility] Serum or plasma creatinine m easurement (mass/volume)Ordered By: Dr. Anderson on 09-01-2022 Creatinine [Mass/Vol] 0.65 mg/dL 0.55-1.02 [facility] Comment on above: The validity of the calculated GFR & GFRAA in patients over 70 years has not been determined. Clinical correlation is essential. Serum or plasma urea nitroge n measurement (mass/volume)Ordered By: Dr. Anderson on 09-01-2022 Urea nitrogen [Mass/Vol] 9 mg/dL 7-18 [facility] Squamous epithelial cells de tection in urine sediment by light microscopyOrdered By: Dr. Anderson on 09-01-2022 Epithelial cells.squamous LM Ql (Urine sed) 0 SEEN /hpf 5-10 [facility] Thin prep Papanicolaou smear with manual screeningOrdered By: Dr. Anderson on 09-01-2022 Thin prep Papanicolaou smear with manual screening 4 5-15 [facility] Urine blood detectionOrdered By: Dr. Anderson on 09-01-2022 RBC Ql (U) Negative Negative [facility] RBC Ql (U) 0 SEEN /hpf 0-5 [facility] Urine clarityOrdered By: Dr. Anderson on 09-01-2022 Clarity (U) Sl. Cloudy Clear [facility] Urine color determinationOrd ered By: Dr. Anderson on 09-01-2022 Color (U) Yellow Yellow [facility] Urine glucose detectionOrder ed By: Dr. Anderson on 09-01-2022 Glucose Ql (U) Normal mg/dl Normal [facility] Urine leukocyte esterase det ection by dipstickOrdered By: Dr. Anderson on 09-01-2022 Leukocyte esterase Test strip Ql (U) Negative Negative [facility] Urine pHOrdered By: Dr. Andres owen on 09-01-2022 pH (U) 7.0 [pH] 5.0 - 8.0 [facility] Urine sediment bacteria coun t by microscopy (number/high power field)Ordered By: Dr. Anderson on 09-01-2022 Bacteria LM.HPF (Urine sed) [#/Area] 0 /[HPF] None Seen [facility] Urine specific gravity measu rementOrdered By: Dr. Anderson on 09-01-2022 Specific gravity (U) [Rel density] 1.010 1.002-1.030 [facility] Urobilinogen Auto test strip Ql (U)Ordered By: Dr. Anderson on 09-01-2022 Urobilinogen Ql (U) Normal mg/dl Normal [facility] Absolute lymphocyte countOrd ered By: Dr. Anderson on 08-25-2022 Lymphocytes Auto (Unsp spec) [#/Vol] 2.57 10*3/uL 0.83-4.51 [facility] Basophil percentageOrdered B y: Dr. Anderson on 08-25-2022 Basophil percentage 87 mg/dL 74-106 [facility] Basophil percentage 143 mmol/L 136-145 [facility] Basophil percentage 4.4 mmol/L 3.5-5.1 [facility] Basophil percentage 109 mmol/L 98-107 [facility] Basophils (Bld) [#/Vol] 6.0 10*3/uL 4.4-11.0 [facility] Basophils (Bld) [#/Vol] 2.2 10*3/uL 2.0-7.7 [facility] Basophils/100 WBC (Bld) 36.4 % 47-70 [facility] Basophils/100 WBC (Bld) 7.6 % 0-5 [facility] [facility] Basophils/100 WBC (Bld) 0.8 % 0-1 [facility] Basophil percentageOrdered B y: Claudia Anderson on 08-25-2022 Chloride [Moles/Vol] 109 mmol/L 98-107 [facility] Eosinophils/100 WBC (Bld) 7.6 % 0-5 [facility] Glucose [Mass/Vol] 87 mg/dL 74-106 [facility] Neutrophils (Bld) [#/Vol] 2.2 10*3/uL 2.0-7.7 [facility] Neutrophils/100 WBC (Bld) 36.4 % 47-70 [facility] Potassium [Moles/Vol] 4.4 mmol/L 3.5-5.1 [facility] Sodium [Moles/Vol] 143 mmol/L 136-145 [facility] WBC (Bld) [#/Vol] 6.0 10*3/uL 4.4-11.0 [facility] Blood erythrocytes count (nu mber/volume)Ordered By: Dr. Anderson on 08-25-2022 RBC (Bld) [#/Vol] 3.56 10*6/uL 4.2-5.4 [facility] Blood hemoglobin measurement (mass/volume)Ordered By: Dr. Anderson on 08-25-2022 Hemoglobin (Bld) [Mass/Vol] 11.1 g/dL 12.0-15.0 [facility] Blood lymphocytes/100 leukoc ytesOrdered By: Dr. Anderson on 08-25-2022 Lymphocytes/100 WBC (Bld) 43.1 % 19-41 [facility] Blood monocytes/100 leukocyt esOrdered By: Dr. Anderson on 08-25-2022 Monocytes/100 WBC (Bld) 11.9 % 0-10 [facility] Blood platelet mean volumeOr dered By: Dr. Anderosn on 08-25-2022 Platelet mean volume (Bld) [Entitic vol] 9.5 fL 6.2-12.0 [facility] Determination of erythrocyte mean corpuscular volume (MCV)Ordered By: Dr. Anderson on 08-25-2022 MCV (RBC) [Entitic vol] 101.7 fL 81-99 [facility] Hematocrit Auto (Bld) [Volum e fraction]Ordered By: Dr. Anderson on 08-25-2022 Hematocrit (Bld) [Volume fraction] 36.2 % 37-47 [facility] Laboratory - Chemistry and C hemistry - challengeOrdered By: Claudia Anderson on 08-25-2022 CO2 [Moles/Vol] 29.0 mmol/L 21.0-32.0 [facility] Urea nitrogen/Creatinine [Mass ratio] 14.0 mg/mg 10-20 [facility] Laboratory - Hematology and Cell countsOrdered By: Claudia Anderson on 08-25-2022 Erythrocyte distribution width (RBC) [Entitic vol] 50.3 fL 35.1-43.9 [facility] Erythrocyte distribution width (RBC) [Ratio] 13.4 % 11.6-14.6 [facility] Immature granulocytes/100 WBC (Bld) 0.200 % 0.0-0.9 [facility] Comment on above: IG% - Immature Granu locytes (promyelocytes, myelocytes and metamyelocytes) > 1% indicates that a LEFT SHIFT is Present. MCH (RBC) [Entitic mass] 31.2 pg 27.0-32.0 [facility] Nucleated RBC/100 WBC (Bld) [Ratio] 0 % 0-5 [facility] MCHC Auto (RBC) [Mass/Vol]Or dered By: Dr. Anderson on 08-25-2022 MCHC (RBC) [Mass/Vol] 30.7 g/dL 32-36 [facility] No Panel InformationOrdered By: Claudia Anderson on 08-25-2022 Estimated GFR (MDRD) Amer 84 mL/min >60 [facility] Comment on above: GFR Calc Estimated GFR (MDRD) Non-Af Amer 70 mL/min >60 [facility] Comment on above: Non- GFR Calc No Panel InformationOrdered By: Dr. Anderson on 08-25-2022 31.2 pg 27.0-32.0 [facility] 13.4 % 11.6-14.6 [facility] 50.3 fl 35.1-43.9 [facility] 0.200 % 0.0-0.9 [facility] 0 % 0-5 [facility] 70 mL/min >60 [facility] 84 mL/min >60 [facility] 14.0 RATIO 10-20 [facility] 29.0 mmol/L 21.0-32.0 [facility] Platelets bldOrdered By: Dr. Anderson on 08-25-2022 Platelets (Bld) [#/Vol] 254 10*3/uL 150-450 [facility] Serum or plasma calcium moriah urement (mass/volume)Ordered By: Dr. Anderson on 08-25-2022 Calcium [Mass/Vol] 8.5 mg/dL 8.5-10.1 [facility] Serum or plasma creatinine m easurement (mass/volume)Ordered By: Dr. Anderson on 08-25-2022 Creatinine [Mass/Vol] 0.86 mg/dL 0.55-1.02 [facility] Comment on above: The validity of the calculated GFR & GFRAA in patients over 70 years has not been determined. Clinical correlation is essential. Serum or plasma urea nitroge n measurement (mass/volume)Ordered By: Dr. Anderson on 08-25-2022 Urea nitrogen [Mass/Vol] 12 mg/dL 7-18 [facility] Thin prep Papanicolaou smear with manual screeningOrdered By: Dr. Anderson on 08-25-2022 Thin prep Papanicolaou smear with manual screening 5 5-15 [facility] Absolute lymphocyte countOrd ered By: Dr. Anderson on 08-18-2022 Lymphocytes Auto (Unsp spec) [#/Vol] 2.79 10*3/uL 0.83-4.51 [facility] Basophil percentageOrdered B y: Dr. Anderson on 08-18-2022 Basophil percentage 91 mg/dL 74-106 [facility] Basophil percentage 140 mmol/L 136-145 [facility] Basophil percentage 4.0 mmol/L 3.5-5.1 [facility] Basophil percentage 106 mmol/L 98-107 [facility] Basophils (Bld) [#/Vol] 5.9 10*3/uL 4.4-11.0 [facility] Basophils (Bld) [#/Vol] 1.9 10*3/uL 2.0-7.7 [facility] Basophils/100 WBC (Bld) 32.8 % 47-70 [facility] Basophils/100 WBC (Bld) 6.8 % 0-5 [facility] Basophils/100 WBC (Bld) 1.0 % 0-1 [facility] Basophil percentageOrdered B y: Claudia Anderson on 08-18-2022 Chloride [Moles/Vol] 106 mmol/L 98-107 [facility] Eosinophils/100 WBC (Bld) 6.8 % 0-5 [facility] Glucose [Mass/Vol] 91 mg/dL 74-106 [facility] Neutrophils (Bld) [#/Vol] 1.9 10*3/uL 2.0-7.7 [facility] Neutrophils/100 WBC (Bld) 32.8 % 47-70 [facility] Potassium [Moles/Vol] 4.0 mmol/L 3.5-5.1 [facility] Sodium [Moles/Vol] 140 mmol/L 136-145 [facility] WBC (Bld) [#/Vol] 5.9 10*3/uL 4.4-11.0 [facility] Blood erythrocytes count (nu mber/volume)Ordered By: Dr. Anderson on 08-18-2022 RBC (Bld) [#/Vol] 3.57 10*6/uL 4.2-5.4 [facility] Blood hemoglobin measurement (mass/volume)Ordered By: Dr. Anderson on 08-18-2022 Hemoglobin (Bld) [Mass/Vol] 11.0 g/dL 12.0-15.0 [facility] Blood lymphocytes/100 leukoc ytesOrdered By: Dr. Anderson on 08-18-2022 Lymphocytes/100 WBC (Bld) 47.2 % 19-41 [facility] Blood monocytes/100 leukocyt esOrdered By: Dr. Anderson on 08-18-2022 Monocytes/100 WBC (Bld) 12.0 % 0-10 [facility] Blood platelet mean volumeOr dered By: Dr. Anderson on 08-18-2022 Platelet mean volume (Bld) [Entitic vol] 9.8 fL 6.2-12.0 [facility] Determination of erythrocyte mean corpuscular volume (MCV)Ordered By: Dr. Anderson on 08-18-2022 MCV (RBC) [Entitic vol] 101.7 fL 81-99 [facility] Hematocrit Auto (Bld) [Volum e fraction]Ordered By: Dr. Anderson on 08-18-2022 Hematocrit (Bld) [Volume fraction] 36.3 % 37-47 [facility] Laboratory - Chemistry and C hemistry - challengeOrdered By: Claudia Anderson on 08-18-2022 CO2 [Moles/Vol] 30.0 mmol/L 21.0-32.0 [facility] Urea nitrogen/Creatinine [Mass ratio] 20.5 mg/mg 10-20 [facility] Laboratory - Hematology and Cell countsOrdered By: Claudia Anderson on 08-18-2022 Erythrocyte distribution width (RBC) [Entitic vol] 48.7 fL 35.1-43.9 [facility] Erythrocyte distribution width (RBC) [Ratio] 13.0 % 11.6-14.6 [facility] Immature granulocytes/100 WBC (Bld) 0.200 % 0.0-0.9 [facility] Comment on above: IG% - Immature Granu locytes (promyelocytes, myelocytes and metamyelocytes) > 1% indicates that a LEFT SHIFT is Present. MCH (RBC) [Entitic mass] 30.8 pg 27.0-32.0 [facility] Nucleated RBC/100 WBC (Bld) [Ratio] 0 % 0-5 [facility] MCHC Auto (RBC) [Mass/Vol]Or dered By: Dr. Anderson on 08-18-2022 MCHC (RBC) [Mass/Vol] 30.3 g/dL 32-36 [facility] No Panel InformationOrdered By: Claudia Anderson on 08-18-2022 Estimated GFR (MDRD) Amer 87 mL/min >60 [facility] Comment on above: GFR Calc Estimated GFR (MDRD) Non-Af Amer 72 mL/min >60 [facility] Comment on above: Non- GFR Calc No Panel InformationOrdered By: Dr. Anderson on 08-18-2022 30.8 pg 27.0-32.0 [facility] 13.0 % 11.6-14.6 [facility] 48.7 fl 35.1-43.9 [facility] 0.200 % 0.0-0.9 [facility] 0 % 0-5 [facility] 72 mL/min >60 [facility] 87 mL/min >60 [facility] 20.5 RATIO 10-20 [facility] 30.0 mmol/L 21.0-32.0 [facility] Platelets bldOrdered By: Dr. Anderson on 08-18-2022 Platelets (Bld) [#/Vol] 249 10*3/uL 150-450 [facility] Serum or plasma calcium moriah urement (mass/volume)Ordered By: Dr. Anderson on 08-18-2022 Calcium [Mass/Vol] 8.5 mg/dL 8.5-10.1 [facility] Serum or plasma creatinine m easurement (mass/volume)Ordered By: Dr. Anderson on 08-18-2022 Creatinine [Mass/Vol] 0.83 mg/dL 0.55-1.02 [facility] Comment on above: The validity of the calculated GFR & GFRAA in patients over 70 years has not been determined. Clinical correlation is essential. Serum or plasma urea nitroge n measurement (mass/volume)Ordered By: Dr. Anderson on 08-18-2022 Urea nitrogen [Mass/Vol] 17 mg/dL 7-18 [facility] Thin prep Papanicolaou smear with manual screeningOrdered By: Dr. Anderson on 08-18-2022 Thin prep Papanicolaou smear with manual screening 4 5-15 [facility] Absolute lymphocyte countOrd ered By: Dr. Anderson on 08-11-2022 Lymphocytes Auto (Unsp spec) [#/Vol] 2.41 10*3/uL 0.83-4.51 [facility] Basophil percentageOrdered B y: Dr. Anderson on 08-11-2022 Basophil percentage 89 mg/dL 74-106 [facility] Basophil percentage 141 mmol/L 136-145 [facility] Basophil percentage 4.5 mmol/L 3.5-5.1 [facility] Basophil percentage 108 mmol/L 98-107 [facility] Basophils (Bld) [#/Vol] 5.7 10*3/uL 4.4-11.0 [facility] Basophils (Bld) [#/Vol] 2.3 10*3/uL 2.0-7.7 [facility] Basophils/100 WBC (Bld) 39.6 % 47-70 [facility] Basophils/100 WBC (Bld) 5.1 % 0-5 [facility] Basophils/100 WBC (Bld) 1.1 % 0-1 [facility] Basophil percentageOrdered B y: Claudia Anderson on 08-11-2022 Chloride [Moles/Vol] 108 mmol/L 98-107 [facility] Eosinophils/100 WBC (Bld) 5.1 % 0-5 [facility] Glucose [Mass/Vol] 89 mg/dL 74-106 [facility] Neutrophils (Bld) [#/Vol] 2.3 10*3/uL 2.0-7.7 [facility] Neutrophils/100 WBC (Bld) 39.6 % 47-70 [facility] Potassium [Moles/Vol] 4.5 mmol/L 3.5-5.1 [facility] Sodium [Moles/Vol] 141 mmol/L 136-145 [facility] WBC (Bld) [#/Vol] 5.7 10*3/uL 4.4-11.0 [facility] Blood erythrocytes count (nu mber/volume)Ordered By: Dr. Anderson on 08-11-2022 RBC (Bld) [#/Vol] 3.81 10*6/uL 4.2-5.4 [facility] Blood hemoglobin measurement (mass/volume)Ordered By: Dr. Anderson on 08-11-2022 Hemoglobin (Bld) [Mass/Vol] 12.0 g/dL 12.0-15.0 [facility] Blood lymphocytes/100 leukoc ytesOrdered By: Dr. Anderson on 08-11-2022 Lymphocytes/100 WBC (Bld) 42.5 % 19-41 [facility] Blood monocytes/100 leukocyt esOrdered By: Dr. Anderson on 08-11-2022 Monocytes/100 WBC (Bld) 11.5 % 0-10 [facility] Blood platelet mean volumeOr dered By: Dr. Anderson on 08-11-2022 Platelet mean volume (Bld) [Entitic vol] 9.7 fL 6.2-12.0 [facility] Determination of erythrocyte mean corpuscular volume (MCV)Ordered By: Dr. Anderson on 08-11-2022 MCV (RBC) [Entitic vol] 101.6 fL 81-99 [facility] Hematocrit Auto (Bld) [Volum e fraction]Ordered By: Dr. Anderson on 08-11-2022 Hematocrit (Bld) [Volume fraction] 38.7 % 37-47 [facility] Laboratory - Chemistry and C hemistry - challengeOrdered By: Claudia Anderson on 08-11-2022 CO2 [Moles/Vol] 28.0 mmol/L 21.0-32.0 [facility] Urea nitrogen/Creatinine [Mass ratio] 17.7 mg/mg 10-20 [facility] Laboratory - Hematology and Cell countsOrdered By: Claudia Anderson on 08-11-2022 Erythrocyte distribution width (RBC) [Entitic vol] 48.9 fL 35.1-43.9 [facility] Erythrocyte distribution width (RBC) [Ratio] 13.0 % 11.6-14.6 [facility] Immature granulocytes/100 WBC (Bld) 0.200 % 0.0-0.9 [facility] Comment on above: IG% - Immature Granu locytes (promyelocytes, myelocytes and metamyelocytes) > 1% indicates that a LEFT SHIFT is Present. MCH (RBC) [Entitic mass] 31.5 pg 27.0-32.0 [facility] Nucleated RBC/100 WBC (Bld) [Ratio] 0 % 0-5 [facility] MCHC Auto (RBC) [Mass/Vol]Or dered By: Dr. Anderson on 08-11-2022 MCHC (RBC) [Mass/Vol] 31.0 g/dL 32-36 [facility] No Panel InformationOrdered By: Claudia Anderson on 08-11-2022 Estimated GFR (MDRD) Amer 92 mL/min >60 [facility] Comment on above: GFR Calc Estimated GFR (MDRD) Non-Af Amer 76 mL/min >60 [facility] Comment on above: Non- GFR Calc No Panel InformationOrdered By: Dr. Anderson on 08-11-2022 31.5 pg 27.0-32.0 [facility] 13.0 % 11.6-14.6 [facility] 48.9 fl 35.1-43.9 [facility] 0.200 % 0.0-0.9 [facility] 0 % 0-5 [facility] 76 mL/min >60 [facility] 92 mL/min >60 [facility] 17.7 RATIO 10-20 [facility] 28.0 mmol/L 21.0-32.0 [facility] Platelets bldOrdered By: Dr. Anderson on 08-11-2022 Platelets (Bld) [#/Vol] 253 10*3/uL 150-450 [facility] Serum or plasma calcium moriah urement (mass/volume)Ordered By: Dr. Anderson on 08-11-2022 Calcium [Mass/Vol] 8.7 mg/dL 8.5-10.1 [facility] Serum or plasma creatinine m easurement (mass/volume)Ordered By: Dr. Anderson on 08-11-2022 Creatinine [Mass/Vol] 0.79 mg/dL 0.55-1.02 [facility] Comment on above: The validity of the calculated GFR & GFRAA in patients over 70 years has not been determined. Clinical correlation is essential. Serum or plasma urea nitroge n measurement (mass/volume)Ordered By: Dr. Anderson on 08-11-2022 Urea nitrogen [Mass/Vol] 14 mg/dL 7-18 [facility] Thin prep Papanicolaou smear with manual screeningOrdered By: Dr. Anderson on 08-11-2022 Thin prep Papanicolaou smear with manual screening 5 5-15 [facility] Basophil percentageOrdered B y: Medardo Mayo on 08-10-2022 Ammonia (P) [Moles/Vol] 56.0 umol/L [facility] Basophil percentage 6.0 g/dL 6.4-8.2 [facility] Basophil percentage 0.20 mg/dL 0.20-1.00 [facility] Basophil percentage 56.0 umol/L [facility] Bilirubin [Mass/Vol] 0.20 mg/dL 0.20-1.00 [facility] Comment on above: For patients on eltr ombopag therapy, use of Dimension [place] TBIL is not recommended. Protein [Mass/Vol] 6.0 g/dL 6.4-8.2 [facility] Direct bilirubinOrdered By: Medardo Mayo on 08-10-2022 Bilirubin.direct [Mass/Vol] 0.07 mg/dL 0.00-0.30 [facility] Laboratory - Chemistry and C hemistry - challengeOrdered By: Medardo Mayo on 08-10-2022 ALP [Catalytic activity/Vol] 76 U/L 45-117 [facility] ALT [Catalytic activity/Vol] 11 U/L 13-56 [facility] Globulin (S) [Mass/Vol] 3.3 g/dL 2.2-4.2 [facility] No Panel InformationOrdered By: Medardo Mayo on 08-10-2022 Valproic Acid (Depakene) Level 29 ug/mL 50-100 [facility] Whole Blood Vitamin B1 Level 94.0 nmol/L 66.5-200.0 [facility] Comment on above: Performed at: - [address] [id number] Director: Marino Mckeon MD, Phone: [phone] 3.3 g/dL 2.2-4.2 [facility] 76 U/L 45-117 [facility] 11 U/L 13-56 [facility] 29 ug/mL 50-100 [facility] 94.0 nmol/L 66.5-200.0 [facility] Serum or plasma albumin moriah urement (mass/volume)Ordered By: Medardo Mayo on 08-10-2022 Albumin [Mass/Vol] 2.7 g/dL 3.2-5.0 [facility] Serum or plasma folate measu rement (mass/volume)Ordered By: Medardo Mayo on 08-10-2022 Folate [Mass/Vol] 2.60 ng/mL 3.1-55.4 [facility] Serum or plasma phenobarbita l detectionOrdered By: Medardo Mayo on 08-10-2022 PHENobarbital Ql 19 ug/mL 15-40 [facility] Comment on above: Detection Limit = 3 Serum or plasma primidone me asurement (mass/volume)Ordered By: Medardo Mayo on 08-10-2022 Primidone [Mass/Vol] 7.1 ug/mL 5.0-12.0 [facility] Comment on above: Detection Limit = 0. 3 <0.3 indicates None Detected Thin prep Papanicolaou smear with manual screeningOrdered By: Medardo Mayo on 08-10-2022 Thin prep Papanicolaou smear with manual screening 13 U/L 15-37 [facility] Absolute lymphocyte countOrd ered By: Dr. Anderson on 08-04-2022 Lymphocytes Auto (Unsp spec) [#/Vol] 2.98 10*3/uL 0.83-4.51 [facility] Basophil percentageOrdered B y: Dr. Anderson on 08-04-2022 Basophil percentage 78 mg/dL 74-106 [facility] Basophil percentage 140 mmol/L 136-145 [facility] Basophil percentage 4.7 mmol/L 3.5-5.1 [facility] Basophil percentage 107 mmol/L 98-107 [facility] Basophils (Bld) [#/Vol] 7.0 10*3/uL 4.4-11.0 [facility] Basophils (Bld) [#/Vol] 2.7 10*3/uL 2.0-7.7 [facility] Basophils/100 WBC (Bld) 37.7 % 47-70 [facility] Basophils/100 WBC (Bld) 7.3 % 0-5 [facility] Basophils/100 WBC (Bld) 0.9 % 0-1 [facility] Basophil percentageOrdered B y: Claudia Anderson on 08-04-2022 Chloride [Moles/Vol] 107 mmol/L 98-107 [facility] Eosinophils/100 WBC (Bld) 7.3 % 0-5 [facility] Glucose [Mass/Vol] 78 mg/dL 74-106 [facility] Neutrophils (Bld) [#/Vol] 2.7 10*3/uL 2.0-7.7 [facility] Neutrophils/100 WBC (Bld) 37.7 % 47-70 [facility] Potassium [Moles/Vol] 4.7 mmol/L 3.5-5.1 [facility] Sodium [Moles/Vol] 140 mmol/L 136-145 [facility] WBC (Bld) [#/Vol] 7.0 10*3/uL 4.4-11.0 [facility] Blood erythrocytes count (nu mber/volume)Ordered By: Dr. Anderson on 08-04-2022 RBC (Bld) [#/Vol] 3.90 10*6/uL 4.2-5.4 [facility] Blood hemoglobin measurement (mass/volume)Ordered By: Dr. Anderson on 08-04-2022 Hemoglobin (Bld) [Mass/Vol] 12.3 g/dL 12.0-15.0 [facility] Blood lymphocytes/100 leukoc ytesOrdered By: Dr. Anderson on 08-04-2022 Lymphocytes/100 WBC (Bld) 42.5 % 19-41 [facility] Blood monocytes/100 leukocyt esOrdered By: Dr. Anderson on 08-04-2022 Monocytes/100 WBC (Bld) 11.3 % 0-10 [facility] Blood platelet mean volumeOr dered By: Dr. Anderson on 08-04-2022 Platelet mean volume (Bld) [Entitic vol] 10.0 fL 6.2-12.0 [facility] Determination of erythrocyte mean corpuscular volume (MCV)Ordered By: Dr. Anderson on 08-04-2022 MCV (RBC) [Entitic vol] 100.8 fL 81-99 [facility] Hematocrit Auto (Bld) [Volum e fraction]Ordered By: Dr. Anderson on 08-04-2022 Hematocrit (Bld) [Volume fraction] 39.3 % 37-47 [facility] Laboratory - Chemistry and C hemistry - challengeOrdered By: Claudia Anderson on 08-04-2022 CO2 [Moles/Vol] 29.0 mmol/L 21.0-32.0 [facility] Urea nitrogen/Creatinine [Mass ratio] 22.9 mg/mg 10-20 [facility] Laboratory - Hematology and Cell countsOrdered By: Claudia Anderson on 08-04-2022 Erythrocyte distribution width (RBC) [Entitic vol] 48.8 fL 35.1-43.9 [facility] Erythrocyte distribution width (RBC) [Ratio] 13.2 % 11.6-14.6 [facility] Immature granulocytes/100 WBC (Bld) 0.300 % 0.0-0.9 [facility] Comment on above: IG% - Immature Granu locytes (promyelocytes, myelocytes and metamyelocytes) > 1% indicates that a LEFT SHIFT is Present. MCH (RBC) [Entitic mass] 31.5 pg 27.0-32.0 [facility] Nucleated RBC/100 WBC (Bld) [Ratio] 0 % 0-5 [facility] MCHC Auto (RBC) [Mass/Vol]Or dered By: Dr. Anderson on 08-04-2022 MCHC (RBC) [Mass/Vol] 31.3 g/dL 32-36 [facility] No Panel InformationOrdered By: Claudia Anderson on 08-04-2022 Estimated GFR (MDRD) Amer 107 mL/min >60 [facility] Comment on above: GFR Calc Estimated GFR (MDRD) Non-Af Amer 88 mL/min >60 [facility] Comment on above: Non- GFR Calc No Panel InformationOrdered By: Dr. Anderson on 08-04-2022 31.5 pg 27.0-32.0 [facility] 13.2 % 11.6-14.6 [facility] 48.8 fl 35.1-43.9 [facility] 0.300 % 0.0-0.9 [facility] 0 % 0-5 [facility] 88 mL/min >60 [facility] 107 mL/min >60 [facility] [place] 22.9 RATIO 10-20 [facility] [place] 29.0 mmol/L 21.0-32.0 [facility] [place] Platelets bldOrdered By: Dr. Anderson on 08-04-2022 Platelets (Bld) [#/Vol] 280 10*3/uL 150-450 [facility] [place] Serum or plasma calcium moriah urement (mass/volume)Ordered By: Dr. Anderson on 08-04-2022 Calcium [Mass/Vol] 8.5 mg/dL 8.5-10.1 [facility] Serum or plasma creatinine m easurement (mass/volume)Ordered By: Dr. Anderson on 08-04-2022 Creatinine [Mass/Vol] 0.70 mg/dL 0.55-1.02 [facility] Comment on above: The validity of the calculated GFR & GFRAA in patients over 70 years has not been determined. Clinical correlation is essential. Serum or plasma urea nitroge n measurement (mass/volume)Ordered By: Dr. Anderson on 08-04-2022 Urea nitrogen [Mass/Vol] 16 mg/dL 7-18 [facility] [place] Thin prep Papanicolaou smear with manual screeningOrdered By: Dr. Anderson on 08-04-2022 Thin prep Papanicolaou smear with manual screening 4 5-15 [facility] [place] Absolute lymphocyte countOrd ered By: Dr. Anderson on 07-28-2022 Lymphocytes Auto (Unsp spec) [#/Vol] 2.06 10*3/uL 0.83-4.51 [facility] [place] Basophil percentageOrdered B y: Dr. Anderson on 07-28-2022 Basophil percentage 78 mg/dL 74-106 [facility] Basophil percentage 142 mmol/L 136-145 [facility] Basophil percentage 4.2 mmol/L 3.5-5.1 [facility] Basophil percentage 106 mmol/L 98-107 [facility] Basophils (Bld) [#/Vol] 8.0 10*3/uL 4.4-11.0 [facility] [place] Basophils (Bld) [#/Vol] 4.7 10*3/uL 2.0-7.7 [facility] [place] Basophils/100 WBC (Bld) 58.9 % 47-70 [facility] Basophils/100 WBC (Bld) 5.0 % 0-5 [facility] Basophils/100 WBC (Bld) 0.5 % 0-1 [facility] Basophil percentageOrdered B y: Claudia Anderson on 07-28-2022 Chloride [Moles/Vol] 106 mmol/L 98-107 [facility] [place] Eosinophils/100 WBC (Bld) 5.0 % 0-5 [facility] [place] Glucose [Mass/Vol] 78 mg/dL 74-106 [facility] Neutrophils (Bld) [#/Vol] 4.7 10*3/uL 2.0-7.7 [facility] [place] Neutrophils/100 WBC (Bld) 58.9 % 47-70 [facility] [place] Potassium [Moles/Vol] 4.2 mmol/L 3.5-5.1 [facility] Sodium [Moles/Vol] 142 mmol/L 136-145 [facility] WBC (Bld) [#/Vol] 8.0 10*3/uL 4.4-11.0 [facility] Blood erythrocytes count (nu mber/volume)Ordered By: Dr. Anderson on 07-28-2022 RBC (Bld) [#/Vol] 3.84 10*6/uL 4.2-5.4 [facility] Blood hemoglobin measurement (mass/volume)Ordered By: Dr. Anderson on 07-28-2022 Hemoglobin (Bld) [Mass/Vol] 11.9 g/dL 12.0-15.0 [facility] [place] Blood lymphocytes/100 leukoc ytesOrdered By: Dr. Anderson on 07-28-2022 Lymphocytes/100 WBC (Bld) 25.8 % 19-41 [facility] [place] Blood monocytes/100 leukocyt esOrdered By: Dr. Anderson on 07-28-2022 Monocytes/100 WBC (Bld) 9.5 % 0-10 [facility] Blood platelet mean volumeOr dered By: Dr. Anderson on 07-28-2022 Platelet mean volume (Bld) [Entitic vol] 9.8 fL 6.2-12.0 [facility] [place] Determination of erythrocyte mean corpuscular volume (MCV)Ordered By: Dr. Anderson on 07-28-2022 MCV (RBC) [Entitic vol] 102.6 fL 81-99 [facility] Hematocrit Auto (Bld) [Volum e fraction]Ordered By: Dr. Anderson on 07-28-2022 Hematocrit (Bld) [Volume fraction] 39.4 % 37-47 [facility] [place] Laboratory - Chemistry and C hemistry - challengeOrdered By: Claudia Anderson on 07-28-2022 CO2 [Moles/Vol] 31.0 mmol/L 21.0-32.0 [facility] [place] Urea nitrogen/Creatinine [Mass ratio] 22.5 mg/mg 10-20 [facility] [place] Laboratory - Hematology and Cell countsOrdered By: Claudia Anderson on 07-28-2022 Erythrocyte distribution width (RBC) [Entitic vol] 48.7 fL 35.1-43.9 [facility] [place] Erythrocyte distribution width (RBC) [Ratio] 13.0 % 11.6-14.6 [facility] [place] Immature granulocytes/100 WBC (Bld) 0.300 % 0.0-0.9 [facility] [place] Comment on above: IG% - Immature Granu locytes (promyelocytes, myelocytes and metamyelocytes) > 1% indicates that a LEFT SHIFT is Present. MCH (RBC) [Entitic mass] 31.0 pg 27.0-32.0 [facility] [place] Nucleated RBC/100 WBC (Bld) [Ratio] 0 % 0-5 [facility] [place] MCHC Auto (RBC) [Mass/Vol]Or dered By: Dr. Anderson on 07-28-2022 MCHC (RBC) [Mass/Vol] 30.2 g/dL 32-36 [facility] No Panel InformationOrdered By: Claudia Anderson on 07-28-2022 Estimated GFR (MDRD) Amer 85 mL/min >60 [facility] [place] Comment on above: GFR Calc Estimated GFR (MDRD) Non-Af Amer 71 mL/min >60 [facility] [place] Comment on above: Non- GFR Calc No Panel InformationOrdered By: Dr. Anderson on 07-28-2022 31.0 pg 27.0-32.0 [facility] [place] 13.0 % 11.6-14.6 [facility] [place] 48.7 fl 35.1-43.9 [facility] [place] 0.300 % 0.0-0.9 [facility] [place] 0 % 0-5 [facility] [place] 71 mL/min >60 [facility] [place] 85 mL/min >60 [facility] [place] 22.5 RATIO 10-20 [facility] [place] 31.0 mmol/L 21.0-32.0 [facility] [place] Platelets bldOrdered By: Dr. Anderson on 07-28-2022 Platelets (Bld) [#/Vol] 246 10*3/uL 150-450 [facility] [place] Serum or plasma calcium moriah urement (mass/volume)Ordered By: Dr. Anderson on 07-28-2022 Calcium [Mass/Vol] 8.7 mg/dL 8.5-10.1 [facility] Serum or plasma creatinine m easurement (mass/volume)Ordered By: Dr. Anderson on 07-28-2022 Creatinine [Mass/Vol] 0.85 mg/dL 0.55-1.02 [facility] Comment on above: The validity of the calculated GFR & GFRAA in patients over 70 years has not been determined. Clinical correlation is essential. Serum or plasma urea nitroge n measurement (mass/volume)Ordered By: Dr. Adnerson on 07-28-2022 Urea nitrogen [Mass/Vol] 19 mg/dL 7-18 [facility] [place] Thin prep Papanicolaou smear with manual screeningOrdered By: Dr. Anderson on 07-28-2022 Thin prep Papanicolaou smear with manual screening 5 5-15 [facility] [place] Absolute lymphocyte countOrd ered By: Dr. Anderson on 07-21-2022 Lymphocytes Auto (Unsp spec) [#/Vol] 2.90 10*3/uL 0.83-4.51 [facility] [place] Basophil percentageOrdered B y: Dr. Anderson on 07-21-2022 Basophil percentage 90 mg/dL 74-106 [facility] Basophil percentage 140 mmol/L 136-145 [facility] Basophil percentage 4.4 mmol/L 3.5-5.1 [facility] Basophil percentage 109 mmol/L 98-107 [facility] Basophils (Bld) [#/Vol] 8.0 10*3/uL 4.4-11.0 [facility] [place] Basophils (Bld) [#/Vol] 3.5 10*3/uL 2.0-7.7 [facility] [place] Basophils/100 WBC (Bld) 0.5 % 0-1 [facility] Basophils/100 WBC (Bld) 44.4 % 47-70 [facility] Basophils/100 WBC (Bld) 6.7 % 0-5 [facility] Chloride [Moles/Vol] 109 mmol/L 98-107 [facility] [place] Eosinophils/100 WBC (Bld) 6.7 % 0-5 [facility] [place] Glucose [Mass/Vol] 90 mg/dL 74-106 [facility] Neutrophils (Bld) [#/Vol] 3.5 10*3/uL 2.0-7.7 [facility] [place] Neutrophils/100 WBC (Bld) 44.4 % 47-70 [facility] [place] Potassium [Moles/Vol] 4.4 mmol/L 3.5-5.1 [facility] Sodium [Moles/Vol] 140 mmol/L 136-145 [facility] WBC (Bld) [#/Vol] 8.0 10*3/uL 4.4-11.0 [facility] Blood erythrocytes count (nu mber/volume)Ordered By: Dr. Anderson on 05-03-2023 RBC (Bld) [#/Vol] 3.77 10*6/uL 4.2-5.4 [facility] Blood hemoglobin measurement (mass/volume)Ordered By: Dr. Anderson on 07-21-2022 Hemoglobin (Bld) [Mass/Vol] 11.7 g/dL 12.0-15.0 [facility] [place] Blood lymphocytes/100 leukoc ytesOrdered By: Dr. Anderson on 07-21-2022 Lymphocytes/100 WBC (Bld) 36.5 % 19-41 [facility] [place] Blood monocytes/100 leukocyt esOrdered By: Dr. Anderson on 07-21-2022 Monocytes/100 WBC (Bld) 11.6 % 0-10 [facility] Blood platelet mean volumeOr dered By: Dr. Anderson on 07-21-2022 Platelet mean volume (Bld) [Entitic vol] 9.9 fL 6.2-12.0 [facility] [place] Determination of erythrocyte mean corpuscular volume (MCV)Ordered By: Dr. Anderson on 07-21-2022 MCV (RBC) [Entitic vol] 102.4 fL 81-99 [facility] Hematocrit Auto (Bld) [Volum e fraction]Ordered By: Dr. Anderson on 07-21-2022 Hematocrit (Bld) [Volume fraction] 38.6 % 37-47 [facility] [place] Laboratory - Chemistry and C hemistry - challengeOrdered By: Dr. Anderson on 07-21-2022 CO2 [Moles/Vol] 29.0 mmol/L 21.0-32.0 [facility] [place] Urea nitrogen/Creatinine [Mass ratio] 27.6 mg/mg 10-20 [facility] [place] Laboratory - Hematology and Cell countsOrdered By: Dr. Anderson on 07-21-2022 Erythrocyte distribution width (RBC) [Entitic vol] 49.7 fL 35.1-43.9 [facility] [place] Erythrocyte distribution width (RBC) [Ratio] 13.1 % 11.6-14.6 [facility] [place] Immature granulocytes/100 WBC (Bld) 0.300 % 0.0-0.9 [facility] [place] Comment on above: IG% - Immature Granu locytes (promyelocytes, myelocytes and metamyelocytes) > 1% indicates that a LEFT SHIFT is Present. MCH (RBC) [Entitic mass] 31.0 pg 27.0-32.0 [facility] [place] Nucleated RBC/100 WBC (Bld) [Ratio] 0 % 0-5 [facility] [place] MCHC Auto (RBC) [Mass/Vol]Or dered By: Dr. Anderson on 07-21-2022 MCHC (RBC) [Mass/Vol] 30.3 g/dL 32-36 [facility] No Panel InformationOrdered By: Dr. Anderson on 07-21-2022 Estimated GFR (MDRD) Amer 97 mL/min >60 [facility] [place] Comment on above: GFR Calc Estimated GFR (MDRD) Non-Af Amer 80 mL/min >60 [facility] [place] Comment on above: Non- GFR Calc 31.0 pg 27.0-32.0 [facility] [place] 13.1 % 11.6-14.6 [facility] [place] 49.7 fl 35.1-43.9 [facility] [place] 0.300 % 0.0-0.9 [facility] [place] 0 % 0-5 [facility] [place] 80 mL/min >60 [facility] [place] 97 mL/min >60 [facility] [place] 27.6 RATIO 10-20 [facility] [place] 29.0 mmol/L 21.0-32.0 [facility] [place] Platelets bldOrdered By: Dr. Anderson on 07-21-2022 Platelets (Bld) [#/Vol] 204 10*3/uL 150-450 [facility] [place] Serum or plasma calcium moriah urement (mass/volume)Ordered By: Dr. Anderson on 07-21-2022 Calcium [Mass/Vol] 8.4 mg/dL 8.5-10.1 [facility] Serum or plasma creatinine m easurement (mass/volume)Ordered By: Dr. Anderson on 07-21-2022 Creatinine [Mass/Vol] 0.76 mg/dL 0.55-1.02 [facility] Comment on above: The validity of the calculated GFR & GFRAA in patients over 70 years has not been determined. Clinical correlation is essential. Serum or plasma urea nitroge n measurement (mass/volume)Ordered By: Dr. Anderson on 07-21-2022 Urea nitrogen [Mass/Vol] 21 mg/dL 7-18 [facility] [place] Thin prep Papanicolaou smear with manual screeningOrdered By: Dr. Anderson on 07-21-2022 Thin prep Papanicolaou smear with manual screening 2 5-15 [facility] [place] Absolute lymphocyte countOrd ered By: Dr. Anderson on 07-14-2022 Lymphocytes Auto (Unsp spec) [#/Vol] 3.15 10*3/uL 0.83-4.51 [facility] [place] Basophil percentageOrdered B y: Dr. Anderson on 07-14-2022 Basophil percentage 83 mg/dL 74-106 [facility] Basophil percentage 137 mmol/L 136-145 [facility] Basophil percentage 4.5 mmol/L 3.5-5.1 [facility] Basophil percentage 107 mmol/L 98-107 [facility] Basophils (Bld) [#/Vol] 7.2 10*3/uL 4.4-11.0 [facility] [place] Basophils (Bld) [#/Vol] 2.8 10*3/uL 2.0-7.7 [facility] [place] Basophils/100 WBC (Bld) 1.0 % 0-1 [facility] Basophils/100 WBC (Bld) 38.6 % 47-70 [facility] Basophils/100 WBC (Bld) 6.4 % 0-5 [facility] Chloride [Moles/Vol] 107 mmol/L 98-107 [facility] [place] Eosinophils/100 WBC (Bld) 6.4 % 0-5 [facility] [place] Glucose [Mass/Vol] 83 mg/dL 74-106 [facility] Neutrophils (Bld) [#/Vol] 2.8 10*3/uL 2.0-7.7 [facility] [place] Neutrophils/100 WBC (Bld) 38.6 % 47-70 [facility] [place] Potassium [Moles/Vol] 4.5 mmol/L 3.5-5.1 [facility] Sodium [Moles/Vol] 137 mmol/L 136-145 [facility] WBC (Bld) [#/Vol] 7.2 10*3/uL 4.4-11.0 [facility] Blood erythrocytes count (nu mber/volume)Ordered By: Dr. Anderson on 07-14-2022 RBC (Bld) [#/Vol] 3.75 10*6/uL 4.2-5.4 [facility] Blood hemoglobin measurement (mass/volume)Ordered By: Dr. Anderson on 07-14-2022 Hemoglobin (Bld) [Mass/Vol] 11.8 g/dL 12.0-15.0 [facility] [place] Blood lymphocytes/100 leukoc ytesOrdered By: Dr. Anderson on 07-14-2022 Lymphocytes/100 WBC (Bld) 43.8 % 19-41 [facility] [place] Blood monocytes/100 leukocyt esOrdered By: Dr. Anderson on 07-14-2022 Monocytes/100 WBC (Bld) 9.9 % 0-10 [facility] Blood platelet mean volumeOr dered By: Dr. Anderson on 07-14-2022 Platelet mean volume (Bld) [Entitic vol] 9.6 fL 6.2-12.0 [facility] [place] Determination of erythrocyte mean corpuscular volume (MCV)Ordered By: Dr. Anderson on 07-14-2022 MCV (RBC) [Entitic vol] 101.3 fL 81-99 [facility] Hematocrit Auto (Bld) [Volum e fraction]Ordered By: Dr. Anderson on 07-14-2022 Hematocrit (Bld) [Volume fraction] 38.0 % 37-47 [facility] [place] Laboratory - Chemistry and C hemistry - challengeOrdered By: Dr. Anderson on 07-14-2022 CO2 [Moles/Vol] 31.0 mmol/L 21.0-32.0 [facility] [place] Urea nitrogen/Creatinine [Mass ratio] 27.0 mg/mg 10-20 [facility] [place] Laboratory - Hematology and Cell countsOrdered By: Dr. Anderson on 07-14-2022 Erythrocyte distribution width (RBC) [Entitic vol] 49.7 fL 35.1-43.9 [facility] [place] Erythrocyte distribution width (RBC) [Ratio] 13.2 % 11.6-14.6 [facility] [place] Immature granulocytes/100 WBC (Bld) 0.300 % 0.0-0.9 [facility] [place] Comment on above: IG% - Immature Granu locytes (promyelocytes, myelocytes and metamyelocytes) > 1% indicates that a LEFT SHIFT is Present. MCH (RBC) [Entitic mass] 31.5 pg 27.0-32.0 [facility] [place] Nucleated RBC/100 WBC (Bld) [Ratio] 0 % 0-5 [facility] [place] MCHC Auto (RBC) [Mass/Vol]Or dered By: Dr. Anderson on 07-14-2022 MCHC (RBC) [Mass/Vol] 31.1 g/dL 32-36 [facility] No Panel InformationOrdered By: Dr. Anderson on 07-14-2022 Estimated GFR (MDRD) Amer 99 mL/min >60 [facility] [place] Comment on above: GFR Calc Estimated GFR (MDRD) Non-Af Amer 82 mL/min >60 [facility] [place] Comment on above: Non- GFR Calc 31.5 pg 27.0-32.0 [facility] [place] 13.2 % 11.6-14.6 [facility] [place] 49.7 fl 35.1-43.9 [facility] [place] 0.300 % 0.0-0.9 [facility] [place] 0 % 0-5 [facility] [place] 82 mL/min >60 [facility] [place] 99 mL/min >60 [facility] [place] 27.0 RATIO 10-20 [facility] [place] 31.0 mmol/L 21.0-32.0 [facility] [place] Platelets bldOrdered By: Dr. Anderson on 07-14-2022 Platelets (Bld) [#/Vol] 252 10*3/uL 150-450 [facility] [place] Serum or plasma calcium moriah urement (mass/volume)Ordered By: Dr. Anderson on 07-14-2022 Calcium [Mass/Vol] 8.6 mg/dL 8.5-10.1 [facility] Serum or plasma creatinine m easurement (mass/volume)Ordered By: Dr. Anderson on 07-14-2022 Creatinine [Mass/Vol] 0.74 mg/dL 0.55-1.02 [facility] Comment on above: The validity of the calculated GFR & GFRAA in patients over 70 years has not been determined. Clinical correlation is essential. Serum or plasma urea nitroge n measurement (mass/volume)Ordered By: Dr. Anderson on 07-14-2022 Urea nitrogen [Mass/Vol] 20 mg/dL 7-18 [facility] [place] Thin prep Papanicolaou smear with manual screeningOrdered By: Dr. Anderson on 07-14-2022 Thin prep Papanicolaou smear with manual screening -1 5-15 [facility] [place] Absolute lymphocyte countOrd ered By: Dr. Anderson on 07-07-2022 Lymphocytes Auto (Unsp spec) [#/Vol] 3.11 10*3/uL 0.83-4.51 [facility] [place] Basophil percentageOrdered B y: Dr. Anderson on 07-07-2022 Basophil percentage 86 mg/dL 74-106 [facility] Basophil percentage 136 mmol/L 136-145 [facility] Basophil percentage 4.5 mmol/L 3.5-5.1 [facility] Basophil percentage 104 mmol/L 98-107 [facility] Basophils (Bld) [#/Vol] 8.1 10*3/uL 4.4-11.0 [facility] [place] Basophils (Bld) [#/Vol] 3.5 10*3/uL 2.0-7.7 [facility] [place] Basophils/100 WBC (Bld) 1.0 % 0-1 [facility] Basophils/100 WBC (Bld) 43.8 % 47-70 [facility] Basophils/100 WBC (Bld) 6.0 % 0-5 [facility] Chloride [Moles/Vol] 104 mmol/L 98-107 [facility] [place] Eosinophils/100 WBC (Bld) 6.0 % 0-5 [facility] [place] Glucose [Mass/Vol] 86 mg/dL 74-106 [facility] Neutrophils (Bld) [#/Vol] 3.5 10*3/uL 2.0-7.7 [facility] [place] Neutrophils/100 WBC (Bld) 43.8 % 47-70 [facility] [place] Potassium [Moles/Vol] 4.5 mmol/L 3.5-5.1 [facility] Sodium [Moles/Vol] 136 mmol/L 136-145 [facility] WBC (Bld) [#/Vol] 8.1 10*3/uL 4.4-11.0 [facility] Blood erythrocytes count (nu mber/volume)Ordered By: Dr. Anderson on 07-07-2022 RBC (Bld) [#/Vol] 3.77 10*6/uL 4.2-5.4 [facility] Blood hemoglobin measurement (mass/volume)Ordered By: Dr. Anderson on 07-07-2022 Hemoglobin (Bld) [Mass/Vol] 12.0 g/dL 12.0-15.0 [facility] [place] Blood lymphocytes/100 leukoc ytesOrdered By: Dr. Anderson on 07-07-2022 Lymphocytes/100 WBC (Bld) 38.6 % 19-41 [facility] [place] Blood monocytes/100 leukocyt esOrdered By: Dr. Anderson on 07-07-2022 Monocytes/100 WBC (Bld) 10.2 % 0-10 [facility] Blood platelet mean volumeOr dered By: Dr. Anderson on 07-07-2022 Platelet mean volume (Bld) [Entitic vol] 9.8 fL 6.2-12.0 [facility] [place] Determination of erythrocyte mean corpuscular volume (MCV)Ordered By: Dr. Anderson on 07-07-2022 MCV (RBC) [Entitic vol] 101.9 fL 81-99 [facility] Hematocrit Auto (Bld) [Volum e fraction]Ordered By: Dr. Anderson on 07-07-2022 Hematocrit (Bld) [Volume fraction] 38.4 % 37-47 [facility] [place] Laboratory - Chemistry and C hemistry - challengeOrdered By: Dr. Anderson on 07-07-2022 CO2 [Moles/Vol] 29.0 mmol/L 21.0-32.0 [facility] [place] Urea nitrogen/Creatinine [Mass ratio] 28.3 mg/mg 10-20 [facility] [place] Laboratory - Hematology and Cell countsOrdered By: Dr. Anderson on 07-07-2022 Erythrocyte distribution width (RBC) [Entitic vol] 49.1 fL 35.1-43.9 [facility] [place] Erythrocyte distribution width (RBC) [Ratio] 13.2 % 11.6-14.6 [facility] [place] Immature granulocytes/100 WBC (Bld) 0.400 % 0.0-0.9 [facility] [place] Comment on above: IG% - Immature Granu locytes (promyelocytes, myelocytes and metamyelocytes) > 1% indicates that a LEFT SHIFT is Present. MCH (RBC) [Entitic mass] 31.8 pg 27.0-32.0 [facility] [place] Nucleated RBC/100 WBC (Bld) [Ratio] 0 % 0-5 [facility] [place] MCHC Auto (RBC) [Mass/Vol]Or dered By: Dr. Anderson on 07-07-2022 MCHC (RBC) [Mass/Vol] 31.3 g/dL 32-36 [facility] No Panel InformationOrdered By: Dr. Anderson on 07-07-2022 Estimated GFR (MDRD) Amer 99 mL/min >60 [facility] [place] Comment on above: GFR Calc Estimated GFR (MDRD) Non-Af Amer 82 mL/min >60 [facility] [place] Comment on above: Non- GFR Calc 31.8 pg 27.0-32.0 [facility] [place] 13.2 % 11.6-14.6 [facility] [place] 49.1 fl 35.1-43.9 [facility] [place] 0.400 % 0.0-0.9 [facility] [place] 0 % 0-5 [facility] [place] 82 mL/min >60 [facility] [place] 99 mL/min >60 [facility] [place] 28.3 RATIO 10-20 [facility] [place] 29.0 mmol/L 21.0-32.0 [facility] [place] Platelets bldOrdered By: Dr. Anderson on 07-07-2022 Platelets (Bld) [#/Vol] 305 10*3/uL 150-450 [facility] [place] Serum or plasma calcium moriah urement (mass/volume)Ordered By: Dr. Anderson on 07-07-2022 Calcium [Mass/Vol] 8.5 mg/dL 8.5-10.1 [facility] Serum or plasma creatinine m easurement (mass/volume)Ordered By: Dr. Anderson on 07-07-2022 Creatinine [Mass/Vol] 0.74 mg/dL 0.55-1.02 [facility] Comment on above: The validity of the calculated GFR & GFRAA in patients over 70 years has not been determined. Clinical correlation is essential. Serum or plasma urea nitroge n measurement (mass/volume)Ordered By: Dr. Anderson on 07-07-2022 Urea nitrogen [Mass/Vol] 21 mg/dL 7-18 [facility] [place] Thin prep Papanicolaou smear with manual screeningOrdered By: Dr. Anderson on 07-07-2022 Thin prep Papanicolaou smear with manual screening 3 5-15 [facility] [place] Absolute lymphocyte countOrd ered By: Dr. Anderson on 06-30-2022 Lymphocytes Auto (Unsp spec) [#/Vol] 2.76 10*3/uL 0.83-4.51 [facility] [facility] Basophil percentageOrdered B y: Dr. Anderson on 06-30-2022 Basophil percentage 88 mg/dL 74-106 [facility] Basophil percentage 138 mmol/L 136-145 [facility] Basophil percentage 4.5 mmol/L 3.5-5.1 [facility] Basophil percentage 106 mmol/L 98-107 [facility] Basophils (Bld) [#/Vol] 6.6 10*3/uL 4.4-11.0 [facility] Basophils (Bld) [#/Vol] 2.4 10*3/uL 2.0-7.7 [facility] Basophils/100 WBC (Bld) 0.8 % 0-1 [facility] Basophils/100 WBC (Bld) 35.5 % 47-70 [facility] Basophils/100 WBC (Bld) 10.8 % 0-5 [facility] Chloride [Moles/Vol] 106 mmol/L 98-107 [facility] Eosinophils/100 WBC (Bld) 10.8 % 0-5 [facility] Glucose [Mass/Vol] 88 mg/dL 74-106 [facility] Neutrophils (Bld) [#/Vol] 2.4 10*3/uL 2.0-7.7 [facility] Neutrophils/100 WBC (Bld) 35.5 % 47-70 [facility] Potassium [Moles/Vol] 4.5 mmol/L 3.5-5.1 [facility] Sodium [Moles/Vol] 138 mmol/L 136-145 [facility] WBC (Bld) [#/Vol] 6.6 10*3/uL 4.4-11.0 [facility] Blood erythrocytes count (nu mber/volume)Ordered By: Dr. Anderson on 06-30-2022 RBC (Bld) [#/Vol] 3.62 10*6/uL 4.2-5.4 [facility] Blood hemoglobin measurement (mass/volume)Ordered By: Dr. Anderson on 06-30-2022 Hemoglobin (Bld) [Mass/Vol] 11.4 g/dL 12.0-15.0 [facility] Blood lymphocytes/100 leukoc ytesOrdered By: Dr. Anderson on 06-30-2022 Lymphocytes/100 WBC (Bld) 41.6 % 19-41 [facility] Blood monocytes/100 leukocyt esOrdered By: Dr. Anderson on 06-30-2022 Monocytes/100 WBC (Bld) 11.0 % 0-10 [facility] Blood platelet mean volumeOr dered By: Dr. Anderson on 06-30-2022 Platelet mean volume (Bld) [Entitic vol] 10.0 fL 6.2-12.0 [facility] Determination of erythrocyte mean corpuscular volume (MCV)Ordered By: Dr. Anderson on 06-30-2022 MCV (RBC) [Entitic vol] 103.0 fL 81-99 [facility] Hematocrit Auto (Bld) [Volum e fraction]Ordered By: Dr. Anderson on 06-30-2022 Hematocrit (Bld) [Volume fraction] 37.3 % 37-47 [facility] Laboratory - Chemistry and C hemistry - challengeOrdered By: Dr. Anderson on 06-30-2022 CO2 [Moles/Vol] 30.0 mmol/L 21.0-32.0 [facility] Urea nitrogen/Creatinine [Mass ratio] 20.6 mg/mg 10-20 [facility] Laboratory - Hematology and Cell countsOrdered By: Dr. Anderson on 06-30-2022 Erythrocyte distribution width (RBC) [Entitic vol] 50.2 fL 35.1-43.9 [facility] Erythrocyte distribution width (RBC) [Ratio] 13.2 % 11.6-14.6 [facility] Immature granulocytes/100 WBC (Bld) 0.300 % 0.0-0.9 [facility] Comment on above: IG% - Immature Granu locytes (promyelocytes, myelocytes and metamyelocytes) > 1% indicates that a LEFT SHIFT is Present. MCH (RBC) [Entitic mass] 31.5 pg 27.0-32.0 [facility] Nucleated RBC/100 WBC (Bld) [Ratio] 0 % 0-5 [facility] MCHC Auto (RBC) [Mass/Vol]Or dered By: Dr. Anderson on 06-30-2022 MCHC (RBC) [Mass/Vol] 30.6 g/dL 32-36 [facility] No Panel InformationOrdered By: Dr. Anderson on 06-30-2022 Estimated GFR (MDRD) Amer 110 mL/min >60 [facility] Comment on above: GFR Calc Estimated GFR (MDRD) Non-Af Amer 91 mL/min >60 [facility] Comment on above: Non- GFR Calc 31.5 pg 27.0-32.0 [facility] 13.2 % 11.6-14.6 [facility] 50.2 fl 35.1-43.9 [facility] 0.300 % 0.0-0.9 [facility] 0 % 0-5 [facility] 91 mL/min >60 [facility] 110 mL/min >60 [facility] 20.6 RATIO 10-20 [facility] 30.0 mmol/L 21.0-32.0 [facility] Platelets bldOrdered By: Dr. Anderson on 06-30-2022 Platelets (Bld) [#/Vol] 240 10*3/uL 150-450 [facility] Serum or plasma calcium moriah urement (mass/volume)Ordered By: Dr. Anderson on 06-30-2022 Calcium [Mass/Vol] 8.2 mg/dL 8.5-10.1 [facility] Serum or plasma creatinine m easurement (mass/volume)Ordered By: Dr. Anderson on 06-30-2022 Creatinine [Mass/Vol] 0.68 mg/dL 0.55-1.02 [facility] Comment on above: The validity of the calculated GFR & GFRAA in patients over 70 years has not been determined. Clinical correlation is essential. Serum or plasma urea nitroge n measurement (mass/volume)Ordered By: Dr. Anderson on 06-30-2022 Urea nitrogen [Mass/Vol] 14 mg/dL 7-18 [facility] Thin prep Papanicolaou smear with manual screeningOrdered By: Dr. Anderson on 06-30-2022 Thin prep Papanicolaou smear with manual screening 2 5-15 [facility] Absolute lymphocyte countOrd ered By: Dr. Anderson on 06-16-2022 Lymphocytes Auto (Unsp spec) [#/Vol] 2.44 10*3/uL 0.83-4.51 [facility] Basophil percentageOrdered B y: Dr. Anderson on 06-16-2022 Basophil percentage 87 mg/dL 74-106 [facility] Basophil percentage 139 mmol/L 136-145 [facility] Basophil percentage 4.3 mmol/L 3.5-5.1 [facility] Basophil percentage 107 mmol/L 98-107 [facility] Basophils (Bld) [#/Vol] 5.6 10*3/uL 4.4-11.0 [facility] Basophils (Bld) [#/Vol] 2.1 10*3/uL 2.0-7.7 [facility] Basophils/100 WBC (Bld) 0.7 % 0-1 [facility] Basophils/100 WBC (Bld) 37.1 % 47-70 [facility] Basophils/100 WBC (Bld) 7.8 % 0-5 [facility] Chloride [Moles/Vol] 107 mmol/L 98-107 [facility] Eosinophils/100 WBC (Bld) 7.8 % 0-5 [facility] Glucose [Mass/Vol] 87 mg/dL 74-106 [facility] Neutrophils (Bld) [#/Vol] 2.1 10*3/uL 2.0-7.7 [facility] Neutrophils/100 WBC (Bld) 37.1 % 47-70 [facility] Potassium [Moles/Vol] 4.3 mmol/L 3.5-5.1 [facility] Sodium [Moles/Vol] 139 mmol/L 136-145 [facility] WBC (Bld) [#/Vol] 5.6 10*3/uL 4.4-11.0 [facility] Blood erythrocytes count (nu mber/volume)Ordered By: Dr. Anderson on 06-16-2022 RBC (Bld) [#/Vol] 3.57 10*6/uL 4.2-5.4 [facility] Blood hemoglobin measurement (mass/volume)Ordered By: Dr. Anderson on 06-16-2022 Hemoglobin (Bld) [Mass/Vol] 11.2 g/dL 12.0-15.0 [facility] Blood lymphocytes/100 leukoc ytesOrdered By: Dr. Anderson on 06-16-2022 Lymphocytes/100 WBC (Bld) 43.3 % 19-41 [facility] Blood monocytes/100 leukocyt esOrdered By: Dr. Anderson on 06-16-2022 Monocytes/100 WBC (Bld) 10.7 % 0-10 [facility] Blood platelet mean volumeOr dered By: Dr. Anderson on 06-16-2022 Platelet mean volume (Bld) [Entitic vol] 10.4 fL 6.2-12.0 [facility] Determination of erythrocyte mean corpuscular volume (MCV)Ordered By: Dr. Anderson on 06-16-2022 MCV (RBC) [Entitic vol] 101.7 fL 81-99 [facility] Hematocrit Auto (Bld) [Volum e fraction]Ordered By: Dr. Anderson on 06-16-2022 Hematocrit (Bld) [Volume fraction] 36.3 % 37-47 [facility] Laboratory - Chemistry and C hemistry - challengeOrdered By: Dr. Anderson on 06-16-2022 CO2 [Moles/Vol] 30.0 mmol/L 21.0-32.0 [facility] Urea nitrogen/Creatinine [Mass ratio] 20.9 mg/mg 10-20 [facility] Laboratory - Hematology and Cell countsOrdered By: Dr. Anderson on 06-16-2022 Erythrocyte distribution width (RBC) [Entitic vol] 49.2 fL 35.1-43.9 [facility] Erythrocyte distribution width (RBC) [Ratio] 13.2 % 11.6-14.6 [facility] Immature granulocytes/100 WBC (Bld) 0.400 % 0.0-0.9 [facility] Comment on above: IG% - Immature Granu locytes (promyelocytes, myelocytes and metamyelocytes) > 1% indicates that a LEFT SHIFT is Present. MCH (RBC) [Entitic mass] 31.4 pg 27.0-32.0 [facility] Nucleated RBC/100 WBC (Bld) [Ratio] 0 % 0-5 [facility] MCHC Auto (RBC) [Mass/Vol]Or dered By: Dr. Anderson on 06-16-2022 MCHC (RBC) [Mass/Vol] 30.9 g/dL 32-36 [facility] No Panel InformationOrdered By: Dr. Anderson on 06-16-2022 Estimated GFR (MDRD) Amer 112 mL/min >60 [facility] Comment on above: GFR Calc Estimated GFR (MDRD) Non-Af Amer 92 mL/min >60 [facility] Comment on above: Non- GFR Calc 31.4 pg 27.0-32.0 [facility] 13.2 % 11.6-14.6 [facility] 49.2 fl 35.1-43.9 [facility] 0.400 % 0.0-0.9 [facility] 0 % 0-5 [facility] 92 mL/min >60 [facility] 112 mL/min >60 [facility] 20.9 RATIO 10-20 [facility] 30.0 mmol/L 21.0-32.0 [facility] Platelets bldOrdered By: Dr. Anderson on 06-16-2022 Platelets (Bld) [#/Vol] 263 10*3/uL 150-450 [facility] Serum or plasma calcium moriah urement (mass/volume)Ordered By: Dr. Anderson on 06-16-2022 Calcium [Mass/Vol] 8.1 mg/dL 8.5-10.1 [facility] Serum or plasma creatinine m easurement (mass/volume)Ordered By: Dr. Anderson on 06-16-2022 Creatinine [Mass/Vol] 0.67 mg/dL 0.55-1.02 [facility] Comment on above: The validity of the calculated GFR & GFRAA in patients over 70 years has not been determined. Clinical correlation is essential. Serum or plasma urea nitroge n measurement (mass/volume)Ordered By: Dr. Anderson on 06-16-2022 Urea nitrogen [Mass/Vol] 14 mg/dL 7-18 [facility] Thin prep Papanicolaou smear with manual screeningOrdered By: Dr. Anderson on 06-16-2022 Thin prep Papanicolaou smear with manual screening 2 5-15 [facility] Absolute lymphocyte countOrd ered By: Dr. Anderson on 06-09-2022 Lymphocytes Auto (Unsp spec) [#/Vol] 1.91 10*3/uL 0.83-4.51 [facility] Basophil percentageOrdered B y: Dr. Anderson on 06-09-2022 Basophil percentage 83 mg/dL 74-106 [facility] Basophil percentage 140 mmol/L 136-145 [facility] Basophil percentage 4.4 mmol/L 3.5-5.1 [facility] Basophil percentage 106 mmol/L 98-107 [facility] Basophils (Bld) [#/Vol] 6.0 10*3/uL 4.4-11.0 [facility] Basophils (Bld) [#/Vol] 2.9 10*3/uL 2.0-7.7 [facility] Basophils/100 WBC (Bld) 1.0 % 0-1 [facility] Basophils/100 WBC (Bld) 49.4 % 47-70 [facility] Basophils/100 WBC (Bld) 5.9 % 0-5 [facility] Chloride [Moles/Vol] 106 mmol/L 98-107 [facility] Eosinophils/100 WBC (Bld) 5.9 % 0-5 [facility] Glucose [Mass/Vol] 83 mg/dL 74-106 [facility] Neutrophils (Bld) [#/Vol] 2.9 10*3/uL 2.0-7.7 [facility] Neutrophils/100 WBC (Bld) 49.4 % 47-70 [facility] Potassium [Moles/Vol] 4.4 mmol/L 3.5-5.1 [facility] Sodium [Moles/Vol] 140 mmol/L 136-145 [facility] WBC (Bld) [#/Vol] 6.0 10*3/uL 4.4-11.0 [facility] Blood erythrocytes count (nu mber/volume)Ordered By: Dr. Anderson on 06-09-2022 RBC (Bld) [#/Vol] 3.61 10*6/uL 4.2-5.4 [facility] Blood hemoglobin measurement (mass/volume)Ordered By: Dr. Anderson on 06-09-2022 Hemoglobin (Bld) [Mass/Vol] 11.3 g/dL 12.0-15.0 [facility] Blood lymphocytes/100 leukoc ytesOrdered By: Dr. Anderson on 06-09-2022 Lymphocytes/100 WBC (Bld) 32.0 % 19-41 [facility] Blood monocytes/100 leukocyt esOrdered By: Dr. Anderson on 06-09-2022 Monocytes/100 WBC (Bld) 11.4 % 0-10 [facility] Blood platelet mean volumeOr dered By: Dr. Anderson on 06-09-2022 Platelet mean volume (Bld) [Entitic vol] 10.2 fL 6.2-12.0 [facility] Determination of erythrocyte mean corpuscular volume (MCV)Ordered By: Dr. Anderson on 06-09-2022 MCV (RBC) [Entitic vol] 103.0 fL 81-99 [facility] Hematocrit Auto (Bld) [Volum e fraction]Ordered By: Dr. Anderson on 06-09-2022 Hematocrit (Bld) [Volume fraction] 37.2 % 37-47 [facility] Laboratory - Chemistry and C hemistry - challengeOrdered By: Dr. Anderson on 06-09-2022 CO2 [Moles/Vol] 30.0 mmol/L 21.0-32.0 [facility] Urea nitrogen/Creatinine [Mass ratio] 18.1 mg/mg 10-20 [facility] Laboratory - Hematology and Cell countsOrdered By: Dr. Anderson on 06-09-2022 Erythrocyte distribution width (RBC) [Entitic vol] 51.5 fL 35.1-43.9 [facility] Erythrocyte distribution width (RBC) [Ratio] 13.2 % 11.6-14.6 [facility] Immature granulocytes/100 WBC (Bld) 0.300 % 0.0-0.9 [facility] Comment on above: IG% - Immature Granu locytes (promyelocytes, myelocytes and metamyelocytes) > 1% indicates that a LEFT SHIFT is Present. MCH (RBC) [Entitic mass] 31.3 pg 27.0-32.0 [facility] Nucleated RBC/100 WBC (Bld) [Ratio] 0 % 0-5 [facility] MCHC Auto (RBC) [Mass/Vol]Or dered By: Dr. Anderson on 06-09-2022 MCHC (RBC) [Mass/Vol] 30.4 g/dL 32-36 [facility] No Panel InformationOrdered By: Dr. Anderson on 06-09-2022 Estimated GFR (MDRD) Amer 103 mL/min >60 [facility] Comment on above: GFR Calc Estimated GFR (MDRD) Non-Af Amer 85 mL/min >60 [facility] Comment on above: Non- GFR Calc 31.3 pg 27.0-32.0 [facility] 13.2 % 11.6-14.6 [facility] 51.5 fl 35.1-43.9 [facility] 0.300 % 0.0-0.9 [facility] 0 % 0-5 [facility] 85 mL/min >60 [facility] 103 mL/min >60 [facility] 18.1 RATIO 10-20 [facility] 30.0 mmol/L 21.0-32.0 [facility] Platelets bldOrdered By: Dr. Anderson on 06-09-2022 Platelets (Bld) [#/Vol] 321 10*3/uL 150-450 [facility] Serum or plasma calcium moriah urement (mass/volume)Ordered By: Dr. Anderson on 06-09-2022 Calcium [Mass/Vol] 8.6 mg/dL 8.5-10.1 [facility] Serum or plasma creatinine m easurement (mass/volume)Ordered By: Dr. Anderson on 06-09-2022 Creatinine [Mass/Vol] 0.72 mg/dL 0.55-1.02 [facility] Comment on above: The validity of the calculated GFR & GFRAA in patients over 70 years has not been determined. Clinical correlation is essential. Serum or plasma urea nitroge n measurement (mass/volume)Ordered By: Dr. Anderson on 06-09-2022 Urea nitrogen [Mass/Vol] 13 mg/dL 7-18 [facility] Thin prep Papanicolaou smear with manual screeningOrdered By: Dr. Anderson on 06-09-2022 Thin prep Papanicolaou smear with manual screening 4 5-15 [facility] Thin prep Papanicolaou smear with manual screening Neisseria or beta-hemolytic Streptococcus isolated. [facility] Gram stain for investigation of transfusion reactionOrdered By: Dr. Anderson on 06-07-2022 Microscopic observation Gram stain Nom (Unsp spec) [facility] Absolute lymphocyte countOrd ered By: Dr. Anderson on 06-02-2022 Lymphocytes Auto (Unsp spec) [#/Vol] 2.53 10*3/uL 0.83-4.51 [facility] Basophil percentageOrdered B y: Dr. Anderson on 06-02-2022 Basophil percentage 88 mg/dL 74-106 [facility] Basophil percentage 141 mmol/L 136-145 [facility] Basophil percentage 4.5 mmol/L 3.5-5.1 [facility] Basophil percentage 108 mmol/L 98-107 [facility] Basophils (Bld) [#/Vol] 7.6 10*3/uL 4.4-11.0 [facility] Basophils (Bld) [#/Vol] 3.8 10*3/uL 2.0-7.7 [facility] Basophils/100 WBC (Bld) 0.8 % 0-1 [facility] Basophils/100 WBC (Bld) 50.6 % 47-70 [facility] Basophils/100 WBC (Bld) 5.7 % 0-5 [facility] Chloride [Moles/Vol] 108 mmol/L 98-107 [facility] Eosinophils/100 WBC (Bld) 5.7 % 0-5 [facility] Glucose [Mass/Vol] 88 mg/dL 74-106 [facility] Neutrophils (Bld) [#/Vol] 3.8 10*3/uL 2.0-7.7 [facility] Neutrophils/100 WBC (Bld) 50.6 % 47-70 [facility] Potassium [Moles/Vol] 4.5 mmol/L 3.5-5.1 [facility] Sodium [Moles/Vol] 141 mmol/L 136-145 [facility] WBC (Bld) [#/Vol] 7.6 10*3/uL 4.4-11.0 [facility] Blood erythrocytes count (nu mber/volume)Ordered By: Dr. Anderson on 06-02-2022 RBC (Bld) [#/Vol] 3.58 10*6/uL 4.2-5.4 [facility] Blood hemoglobin measurement (mass/volume)Ordered By: Dr. Anderson on 06-02-2022 Hemoglobin (Bld) [Mass/Vol] 11.2 g/dL 12.0-15.0 [facility] Blood lymphocytes/100 leukoc ytesOrdered By: Dr. Anderson on 06-02-2022 Lymphocytes/100 WBC (Bld) 33.3 % 19-41 [facility] Blood monocytes/100 leukocyt esOrdered By: Dr. Anderson on 06-02-2022 Monocytes/100 WBC (Bld) 9.1 % 0-10 [facility] Blood platelet mean volumeOr dered By: Dr. Anderson on 06-02-2022 Platelet mean volume (Bld) [Entitic vol] 9.7 fL 6.2-12.0 [facility] Determination of erythrocyte mean corpuscular volume (MCV)Ordered By: Dr. Anderson on 06-02-2022 MCV (RBC) [Entitic vol] 103.9 fL 81-99 [facility] Hematocrit Auto (Bld) [Volum e fraction]Ordered By: Dr. Anderson on 06-02-2022 Hematocrit (Bld) [Volume fraction] 37.2 % 37-47 [facility] Laboratory - Chemistry and C hemistry - challengeOrdered By: Dr. Anderson on 06-02-2022 CO2 [Moles/Vol] 31.0 mmol/L 21.0-32.0 [facility] Urea nitrogen/Creatinine [Mass ratio] 19.2 mg/mg 10-20 [facility] Laboratory - Hematology and Cell countsOrdered By: Dr. Anderson on 06-02-2022 Erythrocyte distribution width (RBC) [Entitic vol] 52.9 fL 35.1-43.9 [facility] Erythrocyte distribution width (RBC) [Ratio] 13.7 % 11.6-14.6 [facility] Immature granulocytes/100 WBC (Bld) 0.500 % 0.0-0.9 [facility] Comment on above: IG% - Immature Granu locytes (promyelocytes, myelocytes and metamyelocytes) > 1% indicates that a LEFT SHIFT is Present. MCH (RBC) [Entitic mass] 31.3 pg 27.0-32.0 [facility] Nucleated RBC/100 WBC (Bld) [Ratio] 0 % 0-5 [facility] MCHC Auto (RBC) [Mass/Vol]Or dered By: Dr. Anderson on 06-02-2022 MCHC (RBC) [Mass/Vol] 30.1 g/dL 32-36 [facility] No Panel InformationOrdered By: Dr. Anderson on 06-02-2022 Estimated GFR (MDRD) Amer 110 mL/min >60 [facility] Comment on above: GFR Calc Estimated GFR (MDRD) Non-Af Amer 91 mL/min >60 [facility] Comment on above: Non- GFR Calc 31.3 pg 27.0-32.0 [facility] 13.7 % 11.6-14.6 [facility] 52.9 fl 35.1-43.9 [facility] 0.500 % 0.0-0.9 [facility] 0 % 0-5 [facility] 91 mL/min >60 [facility] 110 mL/min >60 [facility] 19.2 RATIO 10-20 [facility] 31.0 mmol/L 21.0-32.0 [facility] Platelets bldOrdered By: Dr. Anderson on 06-02-2022 Platelets (Bld) [#/Vol] 292 10*3/uL 150-450 [facility] Serum or plasma calcium moriah urement (mass/volume)Ordered By: Dr. Anderson on 06-02-2022 Calcium [Mass/Vol] 8.3 mg/dL 8.5-10.1 [facility] Serum or plasma creatinine m easurement (mass/volume)Ordered By: Dr. Anderson on 06-02-2022 Creatinine [Mass/Vol] 0.68 mg/dL 0.55-1.02 [facility] Comment on above: The validity of the calculated GFR & GFRAA in patients over 70 years has not been determined. Clinical correlation is essential. Serum or plasma urea nitroge n measurement (mass/volume)Ordered By: Dr. Anedrson on 06-02-2022 Urea nitrogen [Mass/Vol] 13 mg/dL 7-18 [facility] Thin prep Papanicolaou smear with manual screeningOrdered By: Dr. Anderson on 06-02-2022 Thin prep Papanicolaou smear with manual screening 2 5-15 [facility] No Panel InformationOrdered By: Dr. Anderson on 05-31-2022 Thyroid Stimulating Hormone (TSH) 1.68 uIU/mL 0.358-3.74 [facility] 1.68 uIU/mL 0.358-3.74 [facility] Absolute lymphocyte countOrd ered By: Dr. Anderson on 05-26-2022 Lymphocytes Auto (Unsp spec) [#/Vol] 1.80 10*3/uL 0.83-4.51 [facility] Basophil percentageOrdered B y: Dr. Anderson on 05-26-2022 Basophil percentage 78 mg/dL 74-106 [facility] Basophil percentage 141 mmol/L 136-145 [facility] Basophil percentage 4.6 mmol/L 3.5-5.1 [facility] Basophil percentage 108 mmol/L 98-107 [facility] Basophils (Bld) [#/Vol] 7.1 10*3/uL 4.4-11.0 [facility] Basophils (Bld) [#/Vol] 3.8 10*3/uL 2.0-7.7 [facility] Basophils/100 WBC (Bld) 0.8 % 0-1 [facility] Basophils/100 WBC (Bld) 53.9 % 47-70 [facility] Basophils/100 WBC (Bld) 6.9 % 0-5 [facility] Chloride [Moles/Vol] 108 mmol/L 98-107 [facility] Eosinophils/100 WBC (Bld) 6.9 % 0-5 [facility] [facility] Glucose [Mass/Vol] 78 mg/dL 74-106 [facility] Neutrophils (Bld) [#/Vol] 3.8 10*3/uL 2.0-7.7 [facility] Neutrophils/100 WBC (Bld) 53.9 % 47-70 [facility] Potassium [Moles/Vol] 4.6 mmol/L 3.5-5.1 [facility] Sodium [Moles/Vol] 141 mmol/L 136-145 [facility] WBC (Bld) [#/Vol] 7.1 10*3/uL 4.4-11.0 [facility] Blood erythrocytes count (nu mber/volume)Ordered By: Dr. Anderson on 05-26-2022 RBC (Bld) [#/Vol] 3.57 10*6/uL 4.2-5.4 [facility] Blood hemoglobin measurement (mass/volume)Ordered By: Dr. Anderson on 05-26-2022 Hemoglobin (Bld) [Mass/Vol] 11.2 g/dL 12.0-15.0 [facility] Blood lymphocytes/100 leukoc ytesOrdered By: Dr. Anderson on 05-26-2022 Lymphocytes/100 WBC (Bld) 25.2 % 19-41 [facility] Blood monocytes/100 leukocyt esOrdered By: Dr. Anderson on 05-26-2022 Monocytes/100 WBC (Bld) 12.9 % 0-10 [facility] Blood platelet mean volumeOr dered By: Dr. Anderson on 05-26-2022 Platelet mean volume (Bld) [Entitic vol] 10.4 fL 6.2-12.0 [facility] Determination of erythrocyte mean corpuscular volume (MCV)Ordered By: Dr. Anderson on 05-26-2022 MCV (RBC) [Entitic vol] 103.1 fL 81-99 [facility] Hematocrit Auto (Bld) [Volum e fraction]Ordered By: Dr. Anderson on 05-26-2022 Hematocrit (Bld) [Volume fraction] 36.8 % 37-47 [facility] Laboratory - Chemistry and C hemistry - challengeOrdered By: Dr. Anderson on 05-26-2022 CO2 [Moles/Vol] 27.0 mmol/L 21.0-32.0 [facility] Urea nitrogen/Creatinine [Mass ratio] 14.3 mg/mg 10-20 [facility] Laboratory - Hematology and Cell countsOrdered By: Dr. Anderson on 05-26-2022 Erythrocyte distribution width (RBC) [Entitic vol] 53.0 fL 35.1-43.9 [facility] Erythrocyte distribution width (RBC) [Ratio] 13.8 % 11.6-14.6 [facility] Immature granulocytes/100 WBC (Bld) 0.300 % 0.0-0.9 [facility] Comment on above: IG% - Immature Granu locytes (promyelocytes, myelocytes and metamyelocytes) > 1% indicates that a LEFT SHIFT is Present. MCH (RBC) [Entitic mass] 31.4 pg 27.0-32.0 [facility] Nucleated RBC/100 WBC (Bld) [Ratio] 0 % 0-5 [facility] MCHC Auto (RBC) [Mass/Vol]Or dered By: Dr. Anderson on 05-26-2022 MCHC (RBC) [Mass/Vol] 30.4 g/dL 32-36 [facility] No Panel InformationOrdered By: Dr. Anderson on 05-26-2022 Estimated GFR (MDRD) Amer 138 mL/min >60 [facility] Comment on above: GFR Calc Estimated GFR (MDRD) Non-Af Amer 114 mL/min >60 [facility] Comment on above: Non- GFR Calc 31.4 pg 27.0-32.0 [facility] 13.8 % 11.6-14.6 [facility] 53.0 fl 35.1-43.9 [facility] 0.300 % 0.0-0.9 [facility] 0 % 0-5 [facility] 114 mL/min >60 [facility] 138 mL/min >60 [facility] 14.3 RATIO 10-20 [facility] 27.0 mmol/L 21.0-32.0 [facility] Platelets bldOrdered By: Dr. Anderson on 05-26-2022 Platelets (Bld) [#/Vol] 253 10*3/uL 150-450 [facility] Serum or plasma calcium moriah urement (mass/volume)Ordered By: Dr. Anderson on 05-26-2022 Calcium [Mass/Vol] 8.6 mg/dL 8.5-10.1 [facility] Serum or plasma creatinine m easurement (mass/volume)Ordered By: Dr. Anderson on 05-26-2022 Creatinine [Mass/Vol] 0.56 mg/dL 0.55-1.02 [facility] Comment on above: The validity of the calculated GFR & GFRAA in patients over 70 years has not been determined. Clinical correlation is essential. Serum or plasma urea nitroge n measurement (mass/volume)Ordered By: Dr. Anderson on 05-26-2022 Urea nitrogen [Mass/Vol] 8 mg/dL 7-18 [facility] Thin prep Papanicolaou smear with manual screeningOrdered By: Dr. Anderson on 05-26-2022 Thin prep Papanicolaou smear with manual screening 6 5-15 [facility] Absolute lymphocyte countOrd ered By: Dr. Anderson on 05-19-2022 Lymphocytes Auto (Unsp spec) [#/Vol] 2.21 10*3/uL 0.83-4.51 [facility] Basophil percentageOrdered B y: Dr. Anderson on 05-19-2022 Basophil percentage 83 mg/dL 74-106 [facility] Basophil percentage 138 mmol/L 136-145 [facility] Basophil percentage 4.5 mmol/L 3.5-5.1 [facility] Basophil percentage 105 mmol/L 98-107 [facility] Basophils (Bld) [#/Vol] 8.3 10*3/uL 4.4-11.0 [facility] Basophils (Bld) [#/Vol] 5.0 10*3/uL 2.0-7.7 [facility] Basophils/100 WBC (Bld) 0.8 % 0-1 [facility] Basophils/100 WBC (Bld) 59.6 % 47-70 [facility] Basophils/100 WBC (Bld) 5.6 % 0-5 [facility] Chloride [Moles/Vol] 105 mmol/L 98-107 [facility] Eosin[facility] WBC (Bld) 5.6 % 0-5 [facility] Glucose [Mass/Vol] 83 mg/dL 74-106 [facility] Neutrophils (Bld) [#/Vol] 5.0 10*3/uL 2.0-7.7 [facility] Neutrophils/100 WBC (Bld) 59.6 % 47-70 [facility] Potassium [Moles/Vol] 4.5 mmol/L 3.5-5.1 [facility] Sodium [Moles/Vol] 138 mmol/L 136-145 [facility] WBC (Bld) [#/Vol] 8.3 10*3/uL 4.4-11.0 [facility] Blood erythrocytes count (nu mber/volume)Ordered By: Dr. Anderson on 05-19-2022 RBC (Bld) [#/Vol] 3.79 10*6/uL 4.2-5.4 [facility] Blood hemoglobin measurement (mass/volume)Ordered By: Dr. Anderson on 05-19-2022 Hemoglobin (Bld) [Mass/Vol] 12.0 g/dL 12.0-15.0 [facility] Blood lymphocytes/100 leukoc ytesOrdered By: Dr. Anderson on 05-19-2022 Lymphocytes/100 WBC (Bld) 26.5 % 19-41 [facility] Blood monocytes/100 leukocyt esOrdered By: Dr. Anderson on 05-19-2022 Monocytes/100 WBC (Bld) 7.3 % 0-10 [facility] Blood platelet mean volumeOr dered By: Dr. Anderson on 05-19-2022 Platelet mean volume (Bld) [Entitic vol] 10.1 fL 6.2-12.0 [facility] Determination of erythrocyte mean corpuscular volume (MCV)Ordered By: Dr. Anderson on 05-19-2022 MCV (RBC) [Entitic vol] 103.2 fL 81-99 [facility] Hematocrit Auto (Bld) [Volum e fraction]Ordered By: Dr. Anderson on 05-19-2022 Hematocrit (Bld) [Volume fraction] 39.1 % 37-47 [facility] Laboratory - Chemistry and C hemistry - challengeOrdered By: Dr. Anderson on 05-19-2022 CO2 [Moles/Vol] 29.0 mmol/L 21.0-32.0 [facility] Urea nitrogen/Creatinine [Mass ratio] 15.8 mg/mg 10-20 [facility] Laboratory - Hematology and Cell countsOrdered By: Dr. Anderson on 05-19-2022 Erythrocyte distribution width (RBC) [Entitic vol] 53.5 fL 35.1-43.9 [facility] Erythrocyte distribution width (RBC) [Ratio] 14.2 % 11.6-14.6 [facility] Immature granulocytes/100 WBC (Bld) 0.200 % 0.0-0.9 [facility] Comment on above: IG% - Immature Granu locytes (promyelocytes, myelocytes and metamyelocytes) > 1% indicates that a LEFT SHIFT is Present. MCH (RBC) [Entitic mass] 31.7 pg 27.0-32.0 [facility] Nucleated RBC/100 WBC (Bld) [Ratio] 0 % 0-5 [facility] MCHC Auto (RBC) [Mass/Vol]Or dered By: Dr. Anderson on 05-19-2022 MCHC (RBC) [Mass/Vol] 30.7 g/dL 32-36 [facility] No Panel InformationOrdered By: Dr. Anderson on 05-19-2022 Estimated GFR (MDRD) Amer 96 mL/min >60 [facility] Comment on above: GFR Calc Estimated GFR (MDRD) Non-Af Amer 80 mL/min >60 [facility] Comment on above: Non- GFR Calc 31.7 pg 27.0-32.0 [facility] 14.2 % 11.6-14.6 [facility] 53.5 fl 35.1-43.9 [facility] 0.200 % 0.0-0.9 [facility] 0 % 0-5 [facility] 80 mL/min >60 [facility] 96 mL/min >60 [facility] 15.8 RATIO 10-20 [facility] 29.0 mmol/L 21.0-32.0 [facility] Platelets bldOrdered By: Dr. Anderson on 05-19-2022 Platelets (Bld) [#/Vol] 340 10*3/uL 150-450 [facility] Serum or plasma calcium moriah urement (mass/volume)Ordered By: Dr. Anderson on 05-19-2022 Calcium [Mass/Vol] 8.7 mg/dL 8.5-10.1 [facility] Serum or plasma creatinine m easurement (mass/volume)Ordered By: Dr. Anderson on 05-19-2022 Creatinine [Mass/Vol] 0.76 mg/dL 0.55-1.02 [facility] Comment on above: The validity of the calculated GFR & GFRAA in patients over 70 years has not been determined. Clinical correlation is essential. Serum or plasma urea nitroge n measurement (mass/volume)Ordered By: Dr. Anderson on 05-19-2022 Urea nitrogen [Mass/Vol] 12 mg/dL 7-18 [facility] Thin prep Papanicolaou smear with manual screeningOrdered By: Dr. Anderson on 05-19-2022 Thin prep Papanicolaou smear with manual screening 4 5-15 [facility] Absolute lymphocyte countOrd ered By: Dr. Anderson on 05-12-2022 Lymphocytes Auto (Unsp spec) [#/Vol] 1.90 10*3/uL 0.83-4.51 [facility] Basophil percentageOrdered B y: Dr. Anderson on 05-12-2022 Basophil percentage 90 mg/dL 74-106 [facility] Basophil percentage 141 mmol/L 136-145 [facility] Basophil percentage 4.6 mmol/L 3.5-5.1 [facility] Basophil percentage 105 mmol/L 98-107 [facility] Basophils (Bld) [#/Vol] 5.6 10*3/uL 4.4-11.0 [facility] Basophils (Bld) [#/Vol] 2.7 10*3/uL 2.0-7.7 [facility] Basophils/100 WBC (Bld) 0.9 % 0-1 [facility] Basophils/100 WBC (Bld) 48.5 % 47-70 [facility] Basophils/100 WBC (Bld) 7.3 % 0-5 [facility] Chloride [Moles/Vol] 105 mmol/L 98-107 [facility] Eosinophils/100 WBC (Bld) 7.3 % 0-5 [facility] Glucose [Mass/Vol] 90 mg/dL 74-106 [facility] Neutrophils (Bld) [#/Vol] 2.7 10*3/uL 2.0-7.7 [facility] Neutrophils/100 WBC (Bld) 48.5 % 47-70 [facility] Potassium [Moles/Vol] 4.6 mmol/L 3.5-5.1 [facility] Sodium [Moles/Vol] 141 mmol/L 136-145 [facility] WBC (Bld) [#/Vol] 5.6 10*3/uL 4.4-11.0 [facility] Blood erythrocytes count (nu mber/volume)Ordered By: Dr. Anderson on 05-12-2022 RBC (Bld) [#/Vol] 3.66 10*6/uL 4.2-5.4 [facility] Blood hemoglobin measurement (mass/volume)Ordered By: Dr. Anderson on 05-12-2022 Hemoglobin (Bld) [Mass/Vol] 11.4 g/dL 12.0-15.0 [facility] Blood lymphocytes/100 leukoc ytesOrdered By: Dr. Anderson on 05-12-2022 Lymphocytes/100 WBC (Bld) 33.7 % 19-41 [facility] Blood monocytes/100 leukocyt esOrdered By: Dr. Anderson on 05-12-2022 Monocytes/100 WBC (Bld) 9.4 % 0-10 [facility] Blood platelet mean volumeOr dered By: Dr. Anderson on 05-12-2022 Platelet mean volume (Bld) [Entitic vol] 9.9 fL 6.2-12.0 [facility] Determination of erythrocyte mean corpuscular volume (MCV)Ordered By: Dr. Anderson on 05-12-2022 MCV (RBC) [Entitic vol] 102.7 fL 81-99 [facility] Hematocrit Auto (Bld) [Volum e fraction]Ordered By: Dr. Anderson on 05-12-2022 Hematocrit (Bld) [Volume fraction] 37.6 % 37-47 [facility] Laboratory - Chemistry and C hemistry - challengeOrdered By: Dr. Anderson on 05-12-2022 CO2 [Moles/Vol] 32.0 mmol/L 21.0-32.0 [facility] Urea nitrogen/Creatinine [Mass ratio] 21.1 mg/mg 10-20 [facility] Laboratory - Hematology and Cell countsOrdered By: Dr. Anderson on 05-12-2022 Erythrocyte distribution width (RBC) [Entitic vol] 52.5 fL 35.1-43.9 [facility] Erythrocyte distribution width (RBC) [Ratio] 13.9 % 11.6-14.6 [facility] Immature granulocytes/100 WBC (Bld) 0.200 % 0.0-0.9 [facility] Comment on above: IG% - Immature Granu locytes (promyelocytes, myelocytes and metamyelocytes) > 1% indicates that a LEFT SHIFT is Present. MCH (RBC) [Entitic mass] 31.1 pg 27.0-32.0 [facility] Nucleated RBC/100 WBC (Bld) [Ratio] 0 % 0-5 [facility] MCHC Auto (RBC) [Mass/Vol]Or dered By: Dr. Anderson on 05-12-2022 MCHC (RBC) [Mass/Vol] 30.3 g/dL 32-36 [facility] No Panel InformationOrdered By: Dr. Anderson on 05-12-2022 Estimated GFR (MDRD) Amer 104 mL/min >60 [facility] Comment on above: GFR Calc Estimated GFR (MDRD) Non-Af Amer 86 mL/min >60 [facility] Comment on above: Non- GFR Calc 31.1 pg 27.0-32.0 [facility] 13.9 % 11.6-14.6 [facility] 52.5 fl 35.1-43.9 [facility] 0.200 % 0.0-0.9 [facility] 0 % 0-5 [facility] 86 mL/min >60 [facility] 104 mL/min >60 [facility] 21.1 RATIO 10-20 [facility] 32.0 mmol/L 21.0-32.0 [facility] Platelets bldOrdered By: Dr. Anderson on 05-12-2022 Platelets (Bld) [#/Vol] 334 10*3/uL 150-450 [facility] Serum or plasma calcium moriah urement (mass/volume)Ordered By: Dr. Anderson on 05-12-2022 Calcium [Mass/Vol] 8.8 mg/dL 8.5-10.1 [facility] Serum or plasma creatinine m easurement (mass/volume)Ordered By: Dr. Anderson on 05-12-2022 Creatinine [Mass/Vol] 0.71 mg/dL 0.55-1.02 [facility] Comment on above: The validity of the calculated GFR & GFRAA in patients over 70 years has not been determined. Clinical correlation is essential. Serum or plasma urea nitroge n measurement (mass/volume)Ordered By: Dr. Anderson on 05-12-2022 Urea nitrogen [Mass/Vol] 15 mg/dL 7-18 [facility] Thin prep Papanicolaou smear with manual screeningOrdered By: Dr. Anderson on 05-12-2022 Thin prep Papanicolaou smear with manual screening 4 5-15 [facility] Absolute lymphocyte countOrd ered By: Dr. Anderson on 05-11-2022 Lymphocytes Auto (Unsp spec) [#/Vol] 2.56 10*3/uL 0.83-4.51 [facility] Basophil percentageOrdered B y: Dr. Anderson on 05-11-2022 Basophil percentage 96 mg/dL 74-106 [facility] Basophil percentage 171 mg/dL <200 [facility] Basophil percentage 203 mg/dL <199 [facility] Basophil percentage 141 mmol/L 136-145 [facility] Basophil percentage 4.7 mmol/L 3.5-5.1 [facility] Basophil percentage 106 mmol/L 98-107 [facility] Basophils (Bld) [#/Vol] 8.1 10*3/uL 4.4-11.0 [facility] Basophils (Bld) [#/Vol] 4.3 10*3/uL 2.0-7.7 [facility] Basophils/100 WBC (Bld) 0.7 % 0-1 [facility] Basophils/100 WBC (Bld) 53.3 % 47-70 [facility] Basophils/100 WBC (Bld) 5.7 % 0-5 [facility] Chloride [Moles/Vol] 106 mmol/L 98-107 [facility] Cholesterol [Mass/Vol] 171 mg/dL <200 [facility] Comment on above: <200 mg/dL Desirable 200-240 mg/dL Borderline >240 mg/dL High Risk Eosinophils/100 WBC (Bld) 5.7 % 0-5 [facility] Glucose [Mass/Vol] 96 mg/dL 74-106 [facility] Neutrophils (Bld) [#/Vol] 4.3 10*3/uL 2.0-7.7 [facility] Neutrophils/100 WBC (Bld) 53.3 % 47-70 [facility] Potassium [Moles/Vol] 4.7 mmol/L 3.5-5.1 [facility] Sodium [Moles/Vol] 141 mmol/L 136-145 [facility] Triglyceride [Mass/Vol] 203 mg/dL <199 [facility] Comment on above: The drugs N-Acetylcy steine and Metamizole may falsely depress this assay.Serum Triglycerides Reference Interval Normal <150 mg/dL Borderline high 150 - 199 mg/dL High 200 - 499 mg/dL Very High > or = 500 mg/dL WBC (Bld) [#/Vol] 8.1 10*3/uL 4.4-11.0 [facility] Blood erythrocytes count (nu mber/volume)Ordered By: Dr. Anderson on 05-11-2022 RBC (Bld) [#/Vol] 4.08 10*6/uL 4.2-5.4 [facility] Blood hemoglobin measurement (mass/volume)Ordered By: Dr. Anderson on 05-11-2022 Hemoglobin (Bld) [Mass/Vol] 13.2 g/dL 12.0-15.0 [facility] Blood lymphocytes/100 leukoc ytesOrdered By: Dr. Anderson on 05-11-2022 Lymphocytes/100 WBC (Bld) 31.5 % 19-41 [facility] Blood monocytes/100 leukocyt esOrdered By: Dr. Anderson on 05-11-2022 Monocytes/100 WBC (Bld) 8.6 % 0-10 [facility] Blood platelet mean volumeOr dered By: Dr. Anderson on 05-11-2022 Platelet mean volume (Bld) [Entitic vol] 10.3 fL 6.2-12.0 [facility] Determination of erythrocyte mean corpuscular volume (MCV)Ordered By: Dr. Anderson on 05-11-2022 MCV (RBC) [Entitic vol] 103.4 fL 81-99 [facility] Hematocrit Auto (Bld) [Volum e fraction]Ordered By: Dr. Anderson on 05-11-2022 Hematocrit (Bld) [Volume fraction] 42.2 % 37-47 [facility] Laboratory - Chemistry and C hemistry - challengeOrdered By: Dr. Anderson on 05-11-2022 CO2 [Moles/Vol] 30.0 mmol/L 21.0-32.0 [facility] Cobalamin (Vitamin B12) [Mass/Vol] 656 pg/mL 211-911 [facility] Urea nitrogen/Creatinine [Mass ratio] 17.4 mg/mg 10-20 [facility] Laboratory - Hematology and Cell countsOrdered By: Dr. Anderson on 05-11-2022 Erythrocyte distribution width (RBC) [Entitic vol] 53.1 fL 35.1-43.9 [facility] Erythrocyte distribution width (RBC) [Ratio] 14.0 % 11.6-14.6 [facility] Immature granulocytes/100 WBC (Bld) 0.200 % 0.0-0.9 [facility] Comment on above: IG% - Immature Granu locytes (promyelocytes, myelocytes and metamyelocytes) > 1% indicates that a LEFT SHIFT is Present. MCH (RBC) [Entitic mass] 32.4 pg 27.0-32.0 [facility] Nucleated RBC/100 WBC (Bld) [Ratio] 0 [facility] ([facility]) [Mass/Vol]Or dered By: Dr. Anderson on 05-11-2022 MCHC (RBC) [Mass/Vol] 31.3 g/dL 32-36 [facility] No Panel InformationOrdered By: Dr. Anderson on 05-11-2022 Estimated GFR (MDRD) Amer 99 mL/min >60 [facility] Comment on above: GFR Calc Estimated GFR (MDRD) Non-Af Amer 82 mL/min >60 [facility] Comment on above: Non- GFR Calc Thyroid Stimulating Hormone (TSH) 4.72 uIU/mL 0.358-3.74 [facility] 32.4 pg 27.0-32.0 [facility] 14.0 % 11.6-14.6 [facility] 53.1 fl 35.1-43.9 [facility] 0.200 % 0.0-0.9 [facility] 0 % 0-5 [facility] 82 mL/min >60 [facility] 99 mL/min >60 [facility] 17.4 RATIO 10-20 [facility] 30.0 mmol/L 21.0-32.0 [facility] 4.72 uIU/mL 0.358-3.74 [facility] 656 pg/mL 211-911 [facility] Platelets bldOrdered By: Dr. Anderson on 05-11-2022 Platelets (Bld) [#/Vol] 398 10*3/uL 150-450 [facility] Serum or plasma calcium moriah urement (mass/volume)Ordered By: Dr. Anderson on 05-11-2022 Calcium [Mass/Vol] 9.1 mg/dL 8.5-10.1 [facility] Serum or plasma cholesterol in HDL measurement (mass/volume)Ordered By: Dr. Anderson on 05-11-2022 Cholesterol in HDL [Mass/Vol] 49 mg/dL >40 [facility] Comment on above: The drugs N-Acetylcy steine and Metamizole may falsely depress this assay. Reference Range HDL <40 mg/dL Low HDL Cholesterol HDL >or= 60 mg/dL High HDL Cholesterol Serum or plasma cholesterol in VLDL measurement (mass/volume)Ordered By: Dr. Anderson on 05-11-2022 Cholesterol in VLDL [Mass/Vol] 41 mg/dL 5-40 [facility] Serum or plasma creatinine m easurement (mass/volume)Ordered By: Dr. Anderson on 05-11-2022 Creatinine [Mass/Vol] 0.74 mg/dL 0.55-1.02 [facility] Comment on above: The validity of the calculated GFR & GFRAA in patients over 70 years has not been determined. Clinical correlation is essential. Serum or plasma low density lipoprotein (LDL) cholesterol measurement (mass/volume)Ordered By: Dr. Anderson on 05-11-2022 Cholesterol in LDL [Mass/Vol] 81 mg/dL 0-130 [facility] Serum or plasma urea nitroge n measurement (mass/volume)Ordered By: Dr. Anderson on 05-11-2022 Urea nitrogen [Mass/Vol] 13 mg/dL 7-18 [facility] Thin prep Papanicolaou smear with manual screeningOrdered By: Dr. Anderson on 05-11-2022 Thin prep Papanicolaou smear with manual screening 5 5-15 [facility] Whole blood hemoglobin A1c/t otal hemoglobin ratio (mass fraction)Ordered By: Dr. Anderson on 05-11-2022 HbA1c (Bld) [Mass fraction] 5.0 % 3.8-5.6 [facility] Comment on above: Normal < 5.7 % Predi abetic 5.7 - 6.4 % Diabetic >or= 6.5 % Please note range changes. Absolute lymphocyte countOrd ered By: Dr. Anderson on 05-05-2022 Lymphocytes Auto (Unsp spec) [#/Vol] 2.51 10*3/uL 0.83-4.51 [facility] Basophil percentageOrdered B y: Dr. Anderson on 05-05-2022 Basophils/100 WBC (Bld) 0.6 % 0-1 [facility] Chloride [Moles/Vol] 107 mmol/L 98-107 [facility] Eosinophils/100 WBC (Bld) 4.6 % 0-5 [facility] Glucose [Mass/Vol] 86 mg/dL 74-106 [facility] Neutrophils (Bld) [#/Vol] 3.3 10*3/uL 2.0-7.7 [facility] Neutrophils/100 WBC (Bld) 45.9 % 47-70 [facility] Potassium [Moles/Vol] 4.2 mmol/L 3.5-5.1 [facility] Sodium [Moles/Vol] 143 mmol/L 136-145 [facility] WBC (Bld) [#/Vol] 7.2 10*3/uL 4.4-11.0 [facility] Blood erythrocytes count (nu mber/volume)Ordered By: Dr. Anderson on 05-05-2022 RBC (Bld) [#/Vol] 3.73 10*6/uL 4.2-5.4 [facility] Blood hemoglobin measurement (mass/volume)Ordered By: Dr. Anderson on 05-05-2022 Hemoglobin (Bld) [Mass/Vol] 11.7 g/dL 12.0-15.0 [facility] Blood lymphocytes/100 leukoc ytesOrdered By: Dr. Anderson on 05-05-2022 Lymphocytes/100 WBC (Bld) 35.0 % 19-41 [facility] Blood monocytes/100 leukocyt esOrdered By: Dr. Anderson on 05-05-2022 Monocytes/100 WBC (Bld) 13.8 % 0-10 [facility] Blood platelet mean volumeOr dered By: Dr. Anderson on 05-05-2022 Platelet mean volume (Bld) [Entitic vol] 11.1 fL 6.2-12.0 [facility] Determination of erythrocyte mean corpuscular volume (MCV)Ordered By: Dr. Anderson on 05-05-2022 MCV (RBC) [Entitic vol] 101.1 fL 81-99 [facility] Hematocrit Auto (Bld) [Volum e fraction]Ordered By: Dr. Anderson on 05-05-2022 Hematocrit (Bld) [Volume fraction] 37.7 % 37-47 [facility] Laboratory - Chemistry and C hemistry - challengeOrdered By: Dr. Anderson on 05-05-2022 CO2 [Moles/Vol] 31.0 mmol/L 21.0-32.0 [facility] Urea nitrogen/Creatinine [Mass ratio] 12.7 mg/mg 10-20 [facility] Laboratory - Hematology and Cell countsOrdered By: Dr. Anderson on 05-05-2022 Erythrocyte distribution width (RBC) [Entitic vol] 53.1 fL 35.1-43.9 [facility] Erythrocyte distribution width (RBC) [Ratio] 14.3 % 11.6-14.6 [facility] Immature granulocytes/100 WBC (Bld) 0.100 % 0.0-0.9 [facility] Comment on above: IG% - Immature Granu locytes (promyelocytes, myelocytes and metamyelocytes) > 1% indicates that a LEFT SHIFT is Present. MCH (RBC) [Entitic mass] 31.4 pg 27.0-32.0 [facility] Nucleated RBC/100 WBC (Bld) [Ratio] 0 % 0-5 [facility] MCHC Auto (RBC) [Mass/Vol]Or dered By: Dr. Anderson on 05-05-2022 MCHC (RBC) [Mass/Vol] 31.0 g/dL 32-36 [facility] No Panel InformationOrdered By: Dr. Anderson on 05-05-2022 Estimated GFR (MDRD) Amer 93 mL/min >60 [facility] Comment on above: GFR Calc Estimated GFR (MDRD) Non-Af Amer 76 mL/min >60 [facility] Comment on above: Non- GFR Calc Platelets bldOrdered By: Dr. Anderson on 05-05-2022 Platelets (Bld) [#/Vol] 275 10*3/uL 150-450 [facility] Serum or plasma calcium moriah urement (mass/volume)Ordered By: Dr. Anderson on 05-05-2022 Calcium [Mass/Vol] 9.0 mg/dL 8.5-10.1 [facility] Serum or plasma creatinine m easurement (mass/volume)Ordered By: Dr. Anderson on 05-05-2022 Creatinine [Mass/Vol] 0.79 mg/dL 0.55-1.02 [facility] Comment on above: The validity of the calculated GFR & GFRAA in patients over 70 years has not been determined. Clinical correlation is essential. Serum or plasma urea nitroge n measurement (mass/volume)Ordered By: Dr. Anderson on 05-05-2022 Urea nitrogen [Mass/Vol] 10 mg/dL 7-18 [facility] Thin prep Papanicolaou smear with manual screeningOrdered By: Dr. Anderson on 05-05-2022 Thin prep Papanicolaou smear with manual screening 5 -15 [facility] CBC With Platelet and Differ entialon 05-04-2022 Abs Imm Granulocytes 0.03 E9/L Normal [facility] Absolute Basophils 0.05 E9/L Normal 0.00-0.20 [facility] Absolute Eosinophils 0.25 E9/L Normal 0.05-0.50 [facility] Absolute Lymphocytes 1.97 E9/L Normal 1.50-4.00 [facility] Absolute Monocytes 0.95 E9/L Normal 0.10-0.95 [facility] Absolute Neutrophils 3.60 E9/L Normal 1.80-7.30 [facility] Basophils/100 WBC (Bld) 0.7 % Normal 0.0-2.[address] [facility] Eosinophils/100 WBC (Bld) 3.6 % Normal 0.0-6.0 [facility] Hematocrit (Bld) [Volume fraction] 33.6 % Low 34.0-48.0 [facility] Hemoglobin (Bld) [Mass/Vol] 10.5 g/dL Low 11.5-15.5 [facility] Imm Granulocytes 0.4 % Normal 0.0-5.0 [facility] Lymphocytes/100 WBC (Bld) 28.8 % Normal 20.0-42.0 [facility] MCH (RBC) [Entitic mass] 31.6 pg Normal 26.0-35.0 [facility] MCHC 31.3 % Low 32.0-34.5 [facility] MCV (RBC) [Entitic vol] 101.2 fL High 80.0-99.[address] [facility] Monocytes/100 WBC (Bld) 13.9 % High 2.0-12.[address] [facility] Neutrophils/100 WBC (Bld) 52.6 % Normal 43.0-80.0 [facility] Platelet Count 231 E9/L Normal 130-450 [facility] Platelet mean volume (Bld) [Entitic vol] 10.8 fL Normal 7.0-12.0 [facility] RBC 3.32 E12/L Low 3.50-5.50 [facility] RDW 14.4 fL Normal 11.5-15.0 [facility] WBC 6.9 E9/L Normal 4.5-11.5 [facility] Comprehensive Metabolic Pane jamal 05-04-2022 Albumin [Mass/Vol] 3.0 g/dL Low 3.5-5.2 [facility] ALP [Catalytic activity/Vol] 72 U/L Normal 35-104 [facility] ALT [Catalytic activity/Vol] 5 U/L Normal 0-32 [facility] Anion gap [Moles/Vol] 7 mmol/L Normal 7-16 [facility] AST [Catalytic activity/Vol] 18 U/L Normal 0-31 [facility] Bilirubin [Mass/Vol] 0.2 mg/dL Normal 0.0-1.2 [facility] Calcium [Mass/Vol] 8.6 mg/dL Normal 8.6-10.2 [facility] Chloride [Moles/Vol] 106 mmol/L Normal 98-107 [facility] CO2 [Moles/Vol] 30 mmol/L High 22-29 [facility] Creatinine [Mass/Vol] 0.7 mg/dL Normal 0.5-1.0 [facility] GFR Calculated >60 Normal >=60 [facility] Comment on above: Result Comment: Mariel [...] secretion. Glucose [Mass/Vol] 74 mg/dL Normal 74-99 [facility] Potassium [Moles/Vol] 4.6 mmol/L Normal 3.5-5.0 [facility] Protein [Mass/Vol] 5.8 g/dL Low 6.4-8.3 [facility] Sodium [Moles/Vol] 143 mmol/L Normal 132-146 [facility] Urea nitrogen [Mass/Vol] 9 mg/dL Normal 6-23 [facility] Valproic Acid /Depakene Leve jamal 05-04-2022 Valproic Acid 35 mcg/mL Low 50-100 [facility] CBC With Platelet and Differ entialon 04-27-2022 Abs Imm Granulocytes 0.01 E9/L Normal [facility] Absolute Basophils 0.06 E9/L Normal 0.00-0.20 [facility] Absolute Eosinophils 0.24 E9/L Normal 0.05-0.50 [facility] Absolute Lymphocytes 1.97 E9/L Normal 1.50-4.00 [facility] Absolute Monocytes 0.68 E9/L Normal 0.10-0.95 [facility] Absolute Neutrophils 2.07 E9/L Normal 1.80-7.30 [facility] Basophils/100 WBC (Bld) 1.2 % Normal 0.0-2.0 [facility] Eosinophils/100 WBC (Bld) 4.8 % Normal 0.0-6.0 [facility] Hematocrit (Bld) [Volume fraction] 35.7 % Normal 34.0-48.0 [facility] Hemoglobin (Bld) [Mass/Vol] 11.5 g/dL Normal 11.5-15.5 [facility] Imm Granulocytes 0.2 % Normal 0.0-5.0 [facility] Lymphocytes/100 WBC (Bld) 39.2 % Normal 20.0-42.0 [facility] MCH (RBC) [Entitic mass] 31.1 pg Normal 26.0-35.0 [facility] MCHC 32.2 % Normal 32.0-34.5 [facility] MCV (RBC) [Entitic vol] 96.5 fL Normal 80.0-99.[address] [facility] Monocytes/100 WBC (Bld) 13.5 % High 2.0-12.[address] [facility] Neutrophils/100 WBC (Bld) 41.1 % Low 43.0-80.0 [facility] Platelet Count 230 E9/L Normal 130-450 [facility] Platelet mean volume (Bld) [Entitic vol] 11.8 fL Normal 7.0-12.0 [facility] RBC 3.70 E12/L Normal 3.50-5.50 [facility] RDW 14.2 fL Normal 11.5-15.0 [facility] WBC 5.0 E9/L Normal 4.5-11.5 [facility] Comprehensive Metabolic Pane jamal 04-27-2022 Albumin [Mass/Vol] 3.5 g/dL Normal 3.5-5.2 [facility] ALP [Catalytic activity/Vol] 81 U/L Normal 35-104 [facility] ALT [Catalytic activity/Vol] 10 U/L Normal 0-32 [facility] Anion gap [Moles/Vol] 8 mmol/L Normal 7-16 [facility] AST [Catalytic activity/Vol] 27 U/L Normal 0-31 [facility] Bilirubin [Mass/Vol] mg/dL Normal 0.0-1.2 [facility] Calcium [Mass/Vol] 8.8 mg/dL Normal 8.6-10.2 [facility] Chloride [Moles/Vol] 104 mmol/L Normal 98-107 [facility] CO2 [Moles/Vol] 31 mmol/L High 22-29 [facility] Creatinine [Mass/Vol] 0.7 mg/dL Normal 0.5-1.0 [facility] GFR Calculated >60 Normal >=60 [facility] Comment on above: Result Comment: Mariel gonsales calculator link [email or web address] Effective Dec 21, 2021 [...] secretion. Glucose [Mass/Vol] 81 mg/dL Normal 74-99 [facility] Potassium [Moles/Vol] 4.2 mmol/L Normal 3.5-5.0 [facility] Protein [Mass/Vol] 6.3 g/dL Low 6.4-8.3 [facility] Sodium [Moles/Vol] 143 mmol/L Normal 132-146 [facility] Urea nitrogen [Mass/Vol] 14 mg/dL Normal 6-23 [facility] Basophil percentageOrdered B y: Dr. Anderson on 04-19-2022 Chloride [Moles/Vol] 106 mmol/L 98-107 [facility] Glucose [Mass/Vol] 80 mg/dL 74-106 [facility] Potassium [Moles/Vol] 4.4 mmol/L 3.5-5.1 [facility] Sodium [Moles/Vol] 142 mmol/L 136-145 [facility] WBC (Bld) [#/Vol] 5.9 10*3/uL 4.4-11.0 [facility] Blood erythrocytes count (nu mber/volume)Ordered By: Dr. Anderson on 04-19-2022 RBC (Bld) [#/Vol] 3.41 10*6/uL 4.2-5.4 [facility] Blood hemoglobin measurement (mass/volume)Ordered By: Dr. Anderson on 04-19-2022 Hemoglobin (Bld) [Mass/Vol] 10.6 g/dL 12.0-15.0 [facility] Blood platelet mean volumeOr dered By: Dr. Anderson on 04-19-2022 Platelet mean volume (Bld) [Entitic vol] 10.1 fL 6.2-12.0 [facility] Determination of erythrocyte mean corpuscular volume (MCV)Ordered By: Dr. Anderson on 04-19-2022 MCV (RBC) [Entitic vol] 98.5 fL 81-99 [facility] Hematocrit Auto (Bld) [Volum e fraction]Ordered By: Dr. Anderson on 04-19-2022 Hematocrit (Bld) [Volume fraction] 33.6 % 37-47 [facility] Laboratory - Chemistry and C hemistry - challengeOrdered By: Dr. Anderson on 04-19-2022 CO2 [Moles/Vol] 30.0 mmol/L 21.0-32.0 [facility] Urea nitrogen/Creatinine [Mass ratio] 32.4 mg/mg 10-20 [facility] Laboratory - Hematology and Cell countsOrdered By: Dr. Anderson on 04-19-2022 Erythrocyte distribution width (RBC) [Entitic vol] 48.2 fL 35.1-43.9 [facility] Erythrocyte distribution width (RBC) [Ratio] 13.3 % 11.6-14.6 [facility] MCH (RBC) [Entitic mass] 31.1 pg 27.0-32.0 [facility] MCHC Auto (RBC) [Mass/Vol]Or dered By: Dr. Anderson on 04-19-2022 MCHC (RBC) [Mass/Vol] 31.5 g/dL 32-36 [facility] No Panel InformationOrdered By: Dr. Anderson on 04-19-2022 Estimated GFR (MDRD) Amer 100 mL/min >60 [facility] Comment on above: GFR Calc Estimated GFR (MDRD) Non-Af Amer 82 mL/min >60 [facility] Comment on above: Non- GFR Calc Platelets bldOrdered By: Dr. Anderson on 04-19-2022 Platelets (Bld) [#/Vol] 347 10*3/uL 150-450 [facility] Serum or plasma C reactive p rotein measurement (mass/volume)Ordered By: Dr. Anderson on 04-19-2022 CRP [Mass/Vol] 16.00 mg/L 0.0-3.0 [facility] Comment on above: C-Reactive Protein ( CRP) provides useful information for thediagnosis, therapy and monitoring of inflammatory processesand associated diseases. For the evaluation of Relative Riskfor Cardiovascular Disease, a High Sensitivity CRP (HSCRP)should be ordered. Serum or plasma calcium moriah urement (mass/volume)Ordered By: Dr. Anderson on 04-19-2022 Calcium [Mass/Vol] 8.5 mg/dL 8.5-10.1 [facility] Serum or plasma creatinine m easurement (mass/volume)Ordered By: Dr. Anderson on 04-19-2022 Creatinine [Mass/Vol] 0.74 mg/dL 0.55-1.02 [facility] Comment on above: The validity of the calculated GFR & GFRAA in patients over 70 years has not been determined. Clinical correlation is essential. Serum or plasma urea nitroge n measurement (mass/volume)Ordered By: Dr. Anderson on 04-19-2022 Urea nitrogen [Mass/Vol] 24 mg/dL 7-18 [facility] Thin prep Papanicolaou smear with manual screeningOrdered By: Dr. Anderson on 04-19-2022 Thin prep Papanicolaou smear with manual screening 6 5-15 [facility] Culture, urineOrdered By: Dr Alicia Ocampo on 04-18-2022 Bacteria identified Cx Nom (U) Culture exhibits no growth. [facility] Absolute lymphocyte countOrd ered By: Dr. Ocampo on 04-15-2022 Lymphocytes Auto (Unsp spec) [#/Vol] 2.54 10*3/uL 0.83-4.51 [facility] Basophil percentageOrdered B y: Dr. Ocampo on 04-15-2022 Basophil percentage 0 SEEN /hpf 0-5 [facility] Basophils/100 WBC (Bld) 0.9 % 0-1 [facility] Bilirubin [Mass/Vol] 0.20 mg/dL 0.20-1.00 [facility] Comment on above: For patients on eltr ombopag therapy, use of Dimension [place] TBIL is not recommended. Chloride [Moles/Vol] 102 mmol/L 98-107 [facility] Eosinophils/100 WBC (Bld) 4.3 % 0-5 [facility] Glucose [Mass/Vol] 100 mg/dL 74-106 [facility] Comment on above: Fasting Glucose resu lt from 100 to 125 mg/dL suggests IMPAIRED HOMEOSTASIS per A.D.A. criteria. Neutrophils (Bld) [#/Vol] 3.9 10*3/uL 2.0-7.7 [facility] Neutrophils/100 WBC (Bld) 50.0 % 47-70 [facility] Potassium [Moles/Vol] 4.5 mmol/L 3.5-5.1 [facility] Protein [Mass/Vol] 7.1 g/dL 6.4-8.2 [facility] Sodium [Moles/Vol] 140 mmol/L 136-145 [facility] WBC (Bld) [#/Vol] 7.8 10*3/uL 4.4-11.0 [facility] Bilirubin Test strip Ql (U)O rdered By: Dr. Ocampo on 04-15-2022 Bilirubin Ql (U) Negative Negative [facility] Blood erythrocytes count (nu mber/volume)Ordered By: Dr. Ocampo on 04-15-2022 RBC (Bld) [#/Vol] 3.57 10*6/uL 4.2-5.4 [facility] Blood hemoglobin measurement (mass/volume)Ordered By: Dr. Ocampo on 04-15-2022 Hemoglobin (Bld) [Mass/Vol] 11.0 g/dL 12.0-15.0 [facility] Blood lymphocytes/100 leukoc ytesOrdered By: Dr. Ocampo on 04-15-2022 Lymphocytes/100 WBC (Bld) 32.4 % 19-41 [facility] Blood monocytes/100 leukocyt esOrdered By: Dr. Ocampo on 04-15-2022 Monocytes/100 WBC (Bld) 12.1 % 0-10 [facility] Blood platelet mean volumeOr dered By: Dr. Ocampo on 04-15-2022 Platelet mean volume (Bld) [Entitic vol] 9.8 fL 6.2-12.0 [facility] Determination of erythrocyte mean corpuscular volume (MCV)Ordered By: Dr. Ocampo on 04-15-2022 MCV (RBC) [Entitic vol] 97.2 fL 81-99 [facility] Hematocrit Auto (Bld) [Volum e fraction]Ordered By: Dr. Ocampo on 04-15-2022 Hematocrit (Bld) [Volume fraction] 34.7 % 37-47 [facility] INR in Blood by Coagulation assayOrdered By: Dr. Ocampo on 04-15-2022 INR Coag (Bld) [Relative time] 1.1 {INR} [facility] Ketones Test strip Ql (U)Ord ered By: Dr. Ocampo on 04-15-2022 Ketones Ql (U) Negative Negative [facility] Laboratory - Chemistry and C hemistry - challengeOrdered By: Dr. Ocampo on 04-15-2022 ALP [Catalytic activity/Vol] 92 U/L 45-117 [facility] ALT [Catalytic activity/Vol] 15 U/L 13-56 [facility] CO2 [Moles/Vol] 32.0 mmol/L 21.0-32.0 [facility] Globulin (S) [Mass/Vol] 3.6 g/dL 2.2-4.2 [facility] Urea nitrogen/Creatinine [Mass ratio] 28.1 mg/mg 10-20 [facility] Laboratory - CoagulationOrde red By: Dr. Ocampo on 04-15-2022 aPTT Coag (Bld) [Time] 29.1 s 24.1-36.2 [facility] PT Coag (PPP) [Time] 13.5 s 11.7-14.9 [facility] Laboratory - Hematology and Cell countsOrdered By: Dr. Ocampo on 04-15-2022 Erythrocyte distribution width (RBC) [Entitic vol] 44.9 fL 35.1-43.9 [facility] Erythrocyte distribution width (RBC) [Ratio] 12.8 % 11.6-14.6 [facility] Immature granulocytes/100 WBC (Bld) 0.300 % 0.0-0.9 [facility] Comment on above: IG% - Immature Granu locytes (promyelocytes, myelocytes and metamyelocytes) > 1% indicates that a LEFT SHIFT is Present. MCH (RBC) [Entitic mass] 30.8 pg 27.0-32.0 [facility] Nucleated RBC/100 WBC (Bld) [Ratio] 0 % 0-5 [facility] MCHC Auto (RBC) [Mass/Vol]Or dered By: Dr. Ocampo on 04-15-2022 MCHC (RBC) [Mass/Vol] 31.7 g/dL 32-36 [facility] Mucus LM Ql (Urine sed)Order ed By: Dr. Ocampo on 04-15-2022 Mucus Ql (Urine sed) 0 SEEN /hpf [facility] Nitrite Test strip Ql (U)Ord ered By: Dr. Ocampo on 04-15-2022 Nitrite Ql (U) Negative Negative [facility] No Panel InformationOrdered By: Dr. Ocampo on 04-15-2022 Estimated Creatinine Clearance Calc 44.24 ml/min [facility] Estimated GFR (MDRD) Amer 85 mL/min >60 [facility] Comment on above: GFR Calc Estimated GFR (MDRD) Non-Af Amer 70 mL/min >60 [facility] Comment on above: Non- GFR Calc Platelets bldOrdered By: Dr. Ocampo on 04-15-2022 Platelets (Bld) [#/Vol] 390 10*3/uL 150-450 [facility] Protein Test strip Ql (U)Ord ered By: Dr. Ocampo on 04-15-2022 Protein Ql (U) 15 mg/dl Negative [facility] Serum or plasma albumin moriah urement (mass/volume)Ordered By: Dr. Ocampo on 04-15-2022 Albumin [Mass/Vol] 3.5 g/dL 3.2-5.0 [facility] Serum or plasma albumin/glob ulin mass ratioOrdered By: Dr. Ocampo on 04-15-2022 Albumin/Globulin [Mass ratio] 1.0 {ratio} 0.9-2.4 [facility] Serum or plasma calcium moriah urement (mass/volume)Ordered By: Dr. Ocampo on 04-15-2022 Calcium [Mass/Vol] 9.0 mg/dL 8.5-10.1 [facility] Serum or plasma creatinine m easurement (mass/volume)Ordered By: Dr. Ocampo on 04-15-2022 Creatinine [Mass/Vol] 0.85 mg/dL 0.55-1.02 [facility] Comment on above: The validity of the calculated GFR & GFRAA in patients over 70 years has not been determined. Clinical correlation is essential. Serum or plasma urea nitroge n measurement (mass/volume)Ordered By: Dr. Ocampo on 04-15-2022 Urea nitrogen [Mass/Vol] 24 mg/dL 7-18 [facility] Squamous epithelial cells de tection in urine sediment by light microscopyOrdered By: Dr. Ocampo on 04-15-2022 Epithelial cells.squamous LM Ql (Urine sed) 0 SEEN /hpf 5-10 [facility] Thin prep Papanicolaou smear with manual screeningOrdered By: Dr. Ocampo on 04-15-2022 Thin prep Papanicolaou smear with manual screening 18 U/L 15-37 [facility] Thin prep Papanicolaou smear with manual screening 6 5-15 [facility] Urine blood detectionOrdered By: Dr. Ocampo on 04-15-2022 RBC Ql (U) Negative Negative [facility] RBC Ql (U) 0 SEEN /hpf 0-5 [facility] Urine clarityOrdered By: Dr. Ocampo on 04-15-2022 Clarity (U) Clear Clear [facility] Urine color determinationOrd ered By: Dr. Ocampo on 04-15-2022 Color (U) Yellow Yellow [facility] Urine glucose detectionOrder ed By: Dr. Ocampo on 04-15-2022 Glucose Ql (U) Negative Normal [facility] Urine leukocyte esterase det ection by dipstickOrdered By: Dr. Ocampo on 04-15-2022 Leukocyte esterase Test strip Ql (U) Negative Negative [facility] Urine pHOrdered By: Dr. Ocampo o n 04-15-2022 pH (U) 5.0 [pH] 5.0 - 8.0 [facility] Urine sediment bacteria coun t by microscopy (number/high power field)Ordered By: Dr. Ocampo on 04-15-2022 Bacteria LM.HPF (Urine sed) [#/Area] 0 /[HPF] None Seen [facility] Urine specific gravity measu rementOrdered By: Dr. Ocampo on 04-15-2022 Specific gravity (U) [Rel density] 1.020 1.002-1.030 [facility] Urobilinogen Auto test strip Ql (U)Ordered By: Dr. Ocampo on 04-15-2022 Urobilinogen Ql (U) Normal mg/dl Normal [facility] Culture, urineOrdered By: Dr Alicia Anderson on 03-31-2022 Bacteria identified Cx Nom (U) Enterococcus faecalis [facility] No Panel InformationOrdered By: Dr. Anderson on 03-30-2022 Thyroid Stimulating Hormone (TSH) 3.00 uIU/mL 0.358-3.74 [facility] Absolute lymphocyte countOrd ered By: Dr. Anderson on 03-29-2022 Lymphocytes Auto (Unsp spec) [#/Vol] 2.37 10*3/uL 0.83-4.51 [facility] Basophil percentageOrdered B y: Dr. Anderson on 03-29-2022 Basophils/100 WBC (Bld) 0.9 % 0-1 [facility] Chloride [Moles/Vol] 108 mmol/L 98-107 [facility] Eosinophils/100 WBC (Bld) 6.7 % 0-5 [facility] Glucose [Mass/Vol] 81 mg/dL 74-106 [facility] Neutrophils (Bld) [#/Vol] 2.2 10*3/uL 2.0-7.7 [facility] Neutrophils/100 WBC (Bld) 38.3 % 47-70 [facility] Potassium [Moles/Vol] 3.9 mmol/L 3.5-5.1 [facility] Sodium [Moles/Vol] 144 mmol/L 136-145 [facility] WBC (Bld) [#/Vol] 5.7 10*3/uL 4.4-11.0 [facility] Blood erythrocytes count (nu mber/volume)Ordered By: Dr. Anderson on 03-29-2022 RBC (Bld) [#/Vol] 3.71 10*6/uL 4.2-5.4 [facility] Blood hemoglobin measurement (mass/volume)Ordered By: Dr. Anderson on 03-29-2022 Hemoglobin (Bld) [Mass/Vol] 11.4 g/dL 12.0-15.0 [facility] Blood lymphocytes/100 leukoc ytesOrdered By: Dr. Anderson on 03-29-2022 Lymphocytes/100 WBC (Bld) 41.9 % 19-41 [facility] Blood monocytes/100 leukocyt esOrdered By: Dr. Anderson on 03-29-2022 Monocytes/100 WBC (Bld) 12.0 % 0-10 [facility] Blood platelet mean volumeOr dered By: Dr. Anderson on 03-29-2022 Platelet mean volume (Bld) [Entitic vol] 10.5 fL 6.2-12.0 [facility] Determination of erythrocyte mean corpuscular volume (MCV)Ordered By: Dr. Anderson on 03-29-2022 MCV (RBC) [Entitic vol] 99.7 fL 81-99 [facility] Hematocrit Auto (Bld) [Volum e fraction]Ordered By: Dr. Anderson on 03-29-2022 Hematocrit (Bld) [Volume fraction] 37.0 % 37-47 [facility] Laboratory - Chemistry and C hemistry - challengeOrdered By: Dr. Anderson on 03-29-2022 CO2 [Moles/Vol] 30.0 mmol/L 21.0-32.0 [facility] Urea nitrogen/Creatinine [Mass ratio] 15.4 mg/mg 10-20 [facility] Laboratory - Hematology and Cell countsOrdered By: Dr. Anderson on 03-29-2022 Erythrocyte distribution width (RBC) [Entitic vol] 49.0 fL 35.1-43.9 [facility] Erythrocyte distribution width (RBC) [Ratio] 13.4 % 11.6-14.6 [facility] Immature granulocytes/100 WBC (Bld) 0.200 % 0.0-0.9 [facility] Comment on above: IG% - Immature Granu locytes (promyelocytes, myelocytes and metamyelocytes) > 1% indicates that a LEFT SHIFT is Present. MCH (RBC) [Entitic mass] 30.7 pg 27.0-32.0 [facility] Nucleated RBC/100 WBC (Bld) [Ratio] 0 % 0-5 [facility] MCHC Auto (RBC) [Mass/Vol]Or dered By: Dr. Anderson on 03-29-2022 MCHC (RBC) [Mass/Vol] 30.8 g/dL 32-36 [facility] No Panel InformationOrdered By: Dr. Anderson on 03-29-2022 Estimated GFR (MDRD) Amer 104 mL/min >60 [facility] Comment on above: GFR Calc Estimated GFR (MDRD) Non-Af Amer 86 mL/min >60 [facility] Comment on above: Non- GFR Calc Platelets bldOrdered By: Dr. Anderson on 03-29-2022 Platelets (Bld) [#/Vol] 277 10*3/uL 150-450 [facility] Serum or plasma calcium moriah urement (mass/volume)Ordered By: Dr. Anderson on 03-29-2022 Calcium [Mass/Vol] 8.5 mg/dL 8.5-10.1 [facility] Serum or plasma creatinine m easurement (mass/volume)Ordered By: Dr. Anderson on 03-29-2022 Creatinine [Mass/Vol] 0.71 mg/dL 0.55-1.02 [facility] Comment on above: The validity of the calculated GFR & GFRAA in patients over 70 years has not been determined. Clinical correlation is essential. Serum or plasma urea nitroge n measurement (mass/volume)Ordered By: Dr. Anderson on 03-29-2022 Urea nitrogen [Mass/Vol] 11 mg/dL 7-18 [facility] Thin prep Papanicolaou smear with manual screeningOrdered By: Dr. Anderson on 03-29-2022 Thin prep Papanicolaou smear with manual screening 6 5-15 [facility] Bilirubin Test strip Ql (U)O rdered By: Dr. Anderson on 03-28-2022 Bilirubin Ql (U) Negative Negative [facility] Ketones Test strip Ql (U)Ord ered By: Dr. Anderson on 03-28-2022 Ketones Ql (U) Negative Negative [facility] Nitrite Test strip Ql (U)Ord ered By: Dr. Anderson on 03-28-2022 Nitrite Ql (U) Negative Negative [facility] Protein Test strip Ql (U)Ord ered By: Dr. Anderson on 03-28-2022 Protein Ql (U) Negative Negative [facility] Urine blood detectionOrdered By: Dr. Anderson on 03-28-2022 RBC Ql (U) Negative Negative [facility] Urine clarityOrdered By: Dr. Anderson on 03-28-2022 Clarity (U) Sl. Cloudy Clear [facility] Urine color determinationOrd ered By: Dr. Anderson on 03-28-2022 Color (U) Yellow Yellow [facility] Urine glucose detectionOrder ed By: Dr. Anderson on 03-28-2022 Glucose Ql (U) Normal mg/dl Normal [facility] Urine leukocyte esterase det ection by dipstickOrdered By: Dr. Anderson on 03-28-2022 Leukocyte esterase Test strip Ql (U) 25 /ul Negative [facility] Urine pHOrdered By: Dr. Andres owen on 03-28-2022 pH (U) 6.0 [pH] 5.0 - 8.0 [facility] Urine specific gravity measu rementOrdered By: Dr. Anderson on 03-28-2022 Specific gravity (U) [Rel density] 1.010 1.002-1.030 [facility] Urobilinogen Auto test strip Ql (U)Ordered By: Dr. Anderson on 03-28-2022 Urobilinogen Ql (U) Normal mg/dl Normal [facility] Absolute lymphocyte countOrd ered By: Dr. Anderson on 03-11-2022 Lymphocytes Auto (Unsp spec) [#/Vol] 2.38 10*3/uL 0.83-4.51 [facility] Basophil percentageOrdered B y: Dr. Anderson on 03-11-2022 Basophils/100 WBC (Bld) 0.8 % 0-1 [facility] Bilirubin [Mass/Vol] 0.30 mg/dL 0.20-1.00 [facility] Comment on above: For patients on eltr ombopag therapy, use of Dimension [place] TBIL is not recommended. Chloride [Moles/Vol] 107 mmol/L 98-107 [facility] Eosinophils/100 WBC (Bld) 5.4 % 0-5 [facility] Glucose [Mass/Vol] 85 mg/dL 74-106 [facility] Neutrophils (Bld) [#/Vol] 2.7 10*3/uL 2.0-7.7 [facility] Neutrophils/100 WBC (Bld) 44.6 % 47-70 [facility] Potassium [Moles/Vol] 4.1 mmol/L 3.5-5.1 [facility] Protein [Mass/Vol] 5.7 g/dL 6.4-8.2 [facility] Sodium [Moles/Vol] 141 mmol/L 136-145 [facility] WBC (Bld) [#/Vol] 6.1 10*3/uL 4.4-11.0 [facility] Blood erythrocytes count (nu mber/volume)Ordered By: Dr. Anderson on 03-11-2022 RBC (Bld) [#/Vol] 3.72 10*6/uL 4.2-5.4 [facility] Blood hemoglobin measurement (mass/volume)Ordered By: Dr. Anderson on 03-11-2022 Hemoglobin (Bld) [Mass/Vol] 11.3 g/dL 12.0-15.0 [facility] Blood lymphocytes/100 leukoc ytesOrdered By: Dr. Anderson on 03-11-2022 Lymphocytes/100 WBC (Bld) 39.1 % 19-41 [facility] Blood monocytes/100 leukocyt esOrdered By: Dr. Anderson on 03-11-2022 Monocytes/100 WBC (Bld) 9.9 % 0-10 [facility] Blood platelet mean volumeOr dered By: Dr. Anderson on 03-11-2022 Platelet mean volume (Bld) [Entitic vol] 10.6 fL 6.2-12.0 [facility] Determination of erythrocyte mean corpuscular volume (MCV)Ordered By: Dr. Anderson on 03-11-2022 MCV (RBC) [Entitic vol] 99.2 fL 81-99 [facility] Hematocrit Auto (Bld) [Volum e fraction]Ordered By: Dr. Anderson on 03-11-2022 Hematocrit (Bld) [Volume fraction] 36.9 % 37-47 [facility] Laboratory - Chemistry and C hemistry - challengeOrdered By: Dr. Anderson on 03-11-2022 ALP [Catalytic activity/Vol] 90 U/L 45-117 [facility] ALT [Catalytic activity/Vol] 14 U/L 13-56 [facility] CO2 [Moles/Vol] 32.0 mmol/L 21.0-32.0 [facility] Cobalamin (Vitamin B12) [Mass/Vol] 1100 pg/mL 211-911 [facility] Globulin (S) [Mass/Vol] 2.9 g/dL 2.2-4.2 [facility] Urea nitrogen/Creatinine [Mass ratio] 13.6 mg/mg 10-20 [facility] Laboratory - Hematology and Cell countsOrdered By: Dr. Anderson on 03-11-2022 Erythrocyte distribution width (RBC) [Entitic vol] 46.8 fL 35.1-43.9 [facility] Erythrocyte distribution width (RBC) [Ratio] 12.9 % 11.6-14.6 [facility] Immature granulocytes/100 WBC (Bld) 0.200 % 0.0-0.9 [facility] Comment on above: IG% - Immature Granu locytes (promyelocytes, myelocytes and metamyelocytes) > 1% indicates that a LEFT SHIFT is Present. MCH (RBC) [Entitic mass] 30.4 pg 27.0-32.0 [facility] Nucleated RBC/100 WBC (Bld) [Ratio] 0 % 0-5 [facility] MCHC Auto (RBC) [Mass/Vol]Or dered By: Dr. Anderson on 03-11-2022 MCHC (RBC) [Mass/Vol] 30.6 g/dL 32-36 [facility] No Panel InformationOrdered By: Dr. Anderson on 03-11-2022 Estimated GFR (MDRD) Amer 113 mL/min >60 [facility] Comment on above: GFR Calc Estimated GFR (MDRD) Non-Af Amer 93 mL/min >60 [facility] Comment on above: Non- GFR Calc Thyroid Stimulating Hormone (TSH) 3.25 uIU/mL 0.358-3.74 [facility] Platelets bldOrdered By: Dr. Anderson on 03-11-2022 Platelets (Bld) [#/Vol] 244 10*3/uL 150-450 [facility] Serum or plasma albumin moriah urement (mass/volume)Ordered By: Dr. Anderson on 03-11-2022 Albumin [Mass/Vol] 2.8 g/dL 3.2-5.0 [facility] Serum or plasma albumin/glob ulin mass ratioOrdered By: Dr. Anderson on 03-11-2022 Albumin/Globulin [Mass ratio] 1.0 {ratio} 0.9-2.4 [facility] Serum or plasma calcium moriah urement (mass/volume)Ordered By: Dr. Anderson on 03-11-2022 Calcium [Mass/Vol] 8.4 mg/dL 8.5-10.1 [facility] Serum or plasma creatinine m easurement (mass/volume)Ordered By: Dr. Anderson on 03-11-2022 Creatinine [Mass/Vol] 0.66 mg/dL 0.55-1.02 [facility] Comment on above: The validity of the calculated GFR & GFRAA in patients over 70 years has not been determined. Clinical correlation is essential. Serum or plasma lamotrigine measurement (mass/volume)Ordered By: Dr. Anderson on 03-11-2022 lamoTRIgine [Mass/Vol] 3.0 ug/mL 2.0-20.0 [facility] Comment on above: Detection Limit = 1. 0Performed at: [facility] [id number] Director: Marino Mckeon MD, Phone: [phone] Serum or plasma urea nitroge n measurement (mass/volume)Ordered By: Dr. Anderson on 03-11-2022 Urea nitrogen [Mass/Vol] 9 mg/dL 7-18 [facility] Thin prep Papanicolaou smear with manual screeningOrdered By: Dr. Anderson on 03-11-2022 Thin prep Papanicolaou smear with manual screening 13 U/L 15-37 [facility] Thin prep Papanicolaou smear with manual screening 2 5-15 [facility] Thin prep Papanicolaou smear with manual screeningOrdered By: Dr. Anderson on 03-07-2022 Thin prep Papanicolaou smear with manual screening Normal genital pierre isolated [facility] Gram stain for investigation of transfusion reactionOrdered By: Dr. Anderson on 03-06-2022 Microscopic observation Gram stain Nom (Unsp spec) [facility] Absolute lymphocyte countOrd ered By: Dr. Anderson on 02-16-2022 Lymphocytes Auto (Unsp spec) [#/Vol] 2.46 10*3/uL 0.83-4.51 [facility] Basophil percentageOrdered B y: Dr. Anderson on 02-16-2022 Basophils/100 WBC (Bld) 0.8 % 0-1 [facility] Eosinophils/100 WBC (Bld) 4.7 % 0-5 [facility] Neutrophils (Bld) [#/Vol] 1.8 10*3/uL 2.0-7.7 [facility] Neutrophils/100 WBC (Bld) 35.6 % 47-70 [facility] WBC (Bld) [#/Vol] 5.1 10*3/uL 4.4-11.0 [facility] Blood erythrocytes count (nu mber/volume)Ordered By: Dr. Anderson on 02-16-2022 RBC (Bld) [#/Vol] 3.71 10*6/uL 4.2-5.4 [facility] Blood hemoglobin measurement (mass/volume)Ordered By: Dr. Anderson on 02-16-2022 Hemoglobin (Bld) [Mass/Vol] 11.4 g/dL 12.0-15.0 [facility] Blood lymphocytes/100 leukoc ytesOrdered By: Dr. Anderson on 02-16-2022 Lymphocytes/100 WBC (Bld) 48.6 % 19-41 [facility] Blood monocytes/100 leukocyt esOrdered By: Dr. Adnerson on 02-16-2022 Monocytes/100 WBC (Bld) 10.1 % 0-10 [facility] Blood platelet mean volumeOr dered By: Dr. Anderson on 02-16-2022 Platelet mean volume (Bld) [Entitic vol] 10.7 fL 6.2-12.0 [facility] Determination of erythrocyte mean corpuscular volume (MCV)Ordered By: Dr. Anderson on 02-16-2022 MCV (RBC) [Entitic vol] 99.7 fL 81-99 [facility] Hematocrit Auto (Bld) [Volum e fraction]Ordered By: Dr. Anderson on 02-16-2022 Hematocrit (Bld) [Volume fraction] 37.0 % 37-47 [facility] Laboratory - Chemistry and C hemistry - challengeOrdered By: Dr. Anderson on 02-16-2022 Magnesium [Mass/Vol] 2.0 mg/dL 1.6-2.6 [facility] Laboratory - Hematology and Cell countsOrdered By: Dr. Anderson on 02-16-2022 Erythrocyte distribution width (RBC) [Entitic vol] 46.5 fL 35.1-43.9 [facility] Erythrocyte distribution width (RBC) [Ratio] 12.8 % 11.6-14.6 [facility] Immature granulocytes/100 WBC (Bld) 0.200 % 0.0-0.9 [facility] Comment on above: IG% - Immature Granu locytes (promyelocytes, myelocytes and metamyelocytes) > 1% indicates that a LEFT SHIFT is Present. MCH (RBC) [Entitic mass] 30.7 pg 27.0-32.0 [facility] Nucleated RBC/100 WBC (Bld) [Ratio] 0 % 0-5 [facility] MCHC Auto (RBC) [Mass/Vol]Or dered By: Dr. Anderson on 02-16-2022 MCHC (RBC) [Mass/Vol] 30.8 g/dL 32-36 [facility] No Panel InformationOrdered By: Dr. Anderson on 02-16-2022 Thyroid Stimulating Hormone (TSH) 4.61 uIU/mL 0.358-3.74 [facility] Vitamin B12 Level > 2000 pg/mL 211-911 [facility] Vitamin D 25-Hydroxy 54.2 ng/mL [facility] Comment on above: Vitamin D 25(OH) Sta tus Range Deficiency <20 ng/mL (50nmol/L) Insufficiency 20 - 30 ng/mL (50 - 75 nmol/L) Sufficiency 30 - 100 ng/mL (75 - 250 nmol/L) Toxicity >100 ng/mL (>250 nmol/L) Platelets bldOrdered By: Dr. Anderson on 02-16-2022 Platelets (Bld) [#/Vol] 242 10*3/uL 150-450 [facility] Absolute lymphocyte countOrd ered By: Dr. Malave on 02-14-2022 Lymphocytes Auto (Unsp spec) [#/Vol] 2.42 10*3/uL 0.83-4.51 [facility] Basophil percentageOrdered B y: Dr. Malave on 02-14-2022 Basophil percentage 0 SEEN /hpf 0-5 [facility] Basophils/100 WBC (Bld) 0.7 % 0-1 [facility] Chloride [Moles/Vol] 112 mmol/L 98-107 [facility] Eosinophils/100 WBC (Bld) 5.3 % 0-5 [facility] Glucose [Mass/Vol] 87 mg/dL 74-106 [facility] Neutrophils (Bld) [#/Vol] 2.2 10*3/uL 2.0-7.7 [facility] Neutrophils/100 WBC (Bld) 39.4 % 47-70 [facility] Potassium [Moles/Vol] 3.7 mmol/L 3.5-5.1 [facility] Sodium [Moles/Vol] 143 mmol/L 136-145 [facility] WBC (Bld) [#/Vol] 5.5 10*3/uL 4.4-11.0 [facility] Bilirubin Test strip Ql (U)O rdered By: Dr. Malave on 02-14-2022 Bilirubin Ql (U) Negative Negative [facility] Blood erythrocytes count (nu mber/volume)Ordered By: Dr. Malave on 02-14-2022 RBC (Bld) [#/Vol] 3.46 10*6/uL 4.2-5.4 [facility] Blood hemoglobin measurement (mass/volume)Ordered By: Dr. Malave on 02-14-2022 Hemoglobin (Bld) [Mass/Vol] 10.5 g/dL 12.0-15.0 [facility] Blood lymphocytes/100 leukoc ytesOrdered By: Dr. Malave on 02-14-2022 Lymphocytes/100 WBC (Bld) 44.2 % 19-41 [facility] Blood monocytes/100 leukocyt esOrdered By: Dr. Malave on 02-14-2022 Monocytes/100 WBC (Bld) 10.2 % 0-10 [facility] Blood platelet mean volumeOr dered By: Dr. Malave on 02-14-2022 Platelet mean volume (Bld) [Entitic vol] 10.8 fL 6.2-12.0 [facility] Determination of erythrocyte mean corpuscular volume (MCV)Ordered By: Dr. Malave on 02-14-2022 MCV (RBC) [Entitic vol] 101.7 fL 81-99 [facility] Hematocrit Auto (Bld) [Volum e fraction]Ordered By: Dr. Malave on 02-14-2022 Hematocrit (Bld) [Volume fraction] 35.2 % 37-47 [facility] Ketones Test strip Ql (U)Ord ered By: Dr. Malave on 02-14-2022 Ketones Ql (U) Negative Negative [facility] Laboratory - Chemistry and C hemistry - challengeOrdered By: Dr. Malave on 02-14-2022 CO2 [Moles/Vol] 27.0 mmol/L 21.0-32.0 [facility] Urea nitrogen/Creatinine [Mass ratio] 14.0 mg/mg 10-20 [facility] Laboratory - Hematology and Cell countsOrdered By: Dr. Malave on 02-14-2022 Erythrocyte distribution width (RBC) [Entitic vol] 48.1 fL 35.1-43.9 [facility] Erythrocyte distribution width (RBC) [Ratio] 12.9 % 11.6-14.6 [facility] Immature granulocytes/100 WBC (Bld) 0.200 % 0.0-0.9 [facility] Comment on above: IG% - Immature Granu locytes (promyelocytes, myelocytes and metamyelocytes) > 1% indicates that a LEFT SHIFT is Present. MCH (RBC) [Entitic mass] 30.3 pg 27.0-32.0 [facility] Nucleated RBC/100 WBC (Bld) [Ratio] 0 % 0-5 [facility] MCHC Auto (RBC) [Mass/Vol]Or dered By: Dr. Malave on 02-14-2022 MCHC (RBC) [Mass/Vol] 29.8 g/dL 32-36 [facility] Mucus LM Ql (Urine sed)Order ed By: Dr. Malave on 02-14-2022 Mucus Ql (Urine sed) 0 SEEN /hpf [facility] Nitrite Test strip Ql (U)Ord ered By: Dr. Malave on 02-14-2022 Nitrite Ql (U) Negative Negative [facility] No Panel InformationOrdered By: Dr. Malave on 02-14-2022 Estimated Creatinine Clearance Calc 37.60 ml/min [facility] Estimated GFR (MDRD) Amer 117 mL/min >60 [facility] Comment on above: GFR Calc Estimated GFR (MDRD) Non-Af Amer 97 mL/min >60 [facility] Comment on above: Non- GFR Calc Platelets bldOrdered By: Dr. Malave on 02-14-2022 Platelets (Bld) [#/Vol] 201 10*3/uL 150-450 [facility] Protein Test strip Ql (U)Ord ered By: Dr. Malave on 02-14-2022 Protein Ql (U) Negative Negative [facility] Serum or plasma calcium moriah urement (mass/volume)Ordered By: Dr. Malave on 02-14-2022 Calcium [Mass/Vol] 8.0 mg/dL 8.5-10.1 [facility] Serum or plasma creatinine m easurement (mass/volume)Ordered By: Dr. Malave on 02-14-2022 Creatinine [Mass/Vol] 0.64 mg/dL 0.55-1.02 [facility] Comment on above: The validity of the calculated GFR & GFRAA in patients over 70 years has not been determined. Clinical correlation is essential. Serum or plasma urea nitroge n measurement (mass/volume)Ordered By: Dr. Malave on 02-14-2022 Urea nitrogen [Mass/Vol] 9 mg/dL 7-18 [facility] Squamous epithelial cells de tection in urine sediment by light microscopyOrdered By: Dr. Malave on 02-14-2022 Epithelial cells.squamous LM Ql (Urine sed) 0 SEEN /hpf 5-10 [facility] Thin prep Papanicolaou smear with manual screeningOrdered By: Dr. Malave on 02-14-2022 Thin prep Papanicolaou smear with manual screening 4 5-15 [facility] Urine blood detectionOrdered By: Dr. Malave on 02-14-2022 RBC Ql (U) Negative Negative [facility] RBC Ql (U) 0 SEEN /hpf 0-5 [facility] Urine clarityOrdered By: Dr. Malave on 02-14-2022 Clarity (U) Clear Clear [facility] Urine color determinationOrd ered By: Dr. Malave on 02-14-2022 Color (U) Yellow Yellow [facility] Urine glucose detectionOrder ed By: Dr. Malave on 02-14-2022 Glucose Ql (U) Normal mg/dl Normal [facility] Urine leukocyte esterase det ection by dipstickOrdered By: Dr. Malave on 02-14-2022 Leukocyte esterase Test strip Ql (U) 25 /ul Negative [facility] Urine pHOrdered By: Dr. Ar sanchez on 02-14-2022 pH (U) 6.0 [pH] 5.0 - 8.0 [facility] Urine sediment bacteria coun t by microscopy (number/high power field)Ordered By: Dr. Malave on 02-14-2022 Bacteria LM.HPF (Urine sed) [#/Area] 0 /[HPF] None Seen [facility] Urine specific gravity measu rementOrdered By: Dr. Malave on 02-14-2022 Specific gravity (U) [Rel density] 1.015 1.002-1.030 [facility] Urobilinogen Auto test strip Ql (U)Ordered By: Dr. aMlave on 02-14-2022 Urobilinogen Ql (U) Normal mg/dl Normal [facility] Absolute lymphocyte countOrd ered By: Dr. Anderson on 02-08-2022 Lymphocytes Auto (Unsp spec) [#/Vol] 2.55 10*3/uL 0.83-4.51 [facility] Basophil percentageOrdered B y: Dr. Anderson on 02-08-2022 Basophils/100 WBC (Bld) 1.1 % 0-1 [facility] Chloride [Moles/Vol] 109 mmol/L 98-107 [facility] Eosinophils/100 WBC (Bld) 5.7 % 0-5 [facility] Glucose [Mass/Vol] 89 mg/dL 74-106 [facility] Neutrophils (Bld) [#/Vol] 1.3 10*3/uL 2.0-7.7 [facility] Neutrophils/100 WBC (Bld) 28.3 % 47-70 [facility] Potassium [Moles/Vol] 3.6 mmol/L 3.5-5.1 [facility] Sodium [Moles/Vol] 144 mmol/L 136-145 [facility] WBC (Bld) [#/Vol] 4.6 10*3/uL 4.4-11.0 [facility] Blood erythrocytes count (nu mber/volume)Ordered By: Dr. Anderson on 02-08-2022 RBC (Bld) [#/Vol] 3.62 10*6/uL 4.2-5.4 [facility] Blood hemoglobin measurement (mass/volume)Ordered By: Dr. Anderson on 02-08-2022 Hemoglobin (Bld) [Mass/Vol] 11.4 g/dL 12.0-15.0 [facility] Blood lymphocytes/100 leukoc ytesOrdered By: Dr. Anderson on 02-08-2022 Lymphocytes/100 WBC (Bld) 55.7 % 19-41 [facility] Blood monocytes/100 leukocyt esOrdered By: Dr. Anderson on 02-08-2022 Monocytes/100 WBC (Bld) 9.2 % 0-10 [facility] Blood platelet mean volumeOr dered By: Dr. Anderson on 02-08-2022 Platelet mean volume (Bld) [Entitic vol] 10.8 fL 6.2-12.0 [facility] Determination of erythrocyte mean corpuscular volume (MCV)Ordered By: Dr. Anderson on 02-08-2022 MCV (RBC) [Entitic vol] 100.0 fL 81-99 [facility] Hematocrit Auto (Bld) [Volum e fraction]Ordered By: Dr. Anderson on 02-08-2022 Hematocrit (Bld) [Volume fraction] 36.2 % 37-47 [facility] Laboratory - Chemistry and C hemistry - challengeOrdered By: Dr. Anderson on 02-08-2022 CO2 [Moles/Vol] 31.0 mmol/L 21.0-32.0 [facility] [facility] [place] Magnesium [Mass/Vol] 2.2 mg/dL 1.6-2.6 [facility] Urea nitrogen/Creatinine [Mass ratio] 14.2 mg/mg 10-20 [facility] [place] Laboratory - Hematology and Cell countsOrdered By: Dr. Anderson on 02-08-2022 Erythrocyte distribution width (RBC) [Entitic vol] 46.6 fL 35.1-43.9 [facility] Erythrocyte distribution width (RBC) [Ratio] 12.7 % 11.6-14.6 [facility] Immature granulocytes/100 WBC (Bld) 0.000 % 0.0-0.9 [facility] Comment on above: IG% - Immature Granu locytes (promyelocytes, myelocytes and metamyelocytes) > 1% indicates that a LEFT SHIFT is Present. MCH (RBC) [Entitic mass] 31.5 pg 27.0-32.0 [facility] Nucleated RBC/100 WBC (Bld) [Ratio] 0 % 0-5 [facility] [place] MCHC Auto (RBC) [Mass/Vol]Or dered By: Dr. Anderson on 02-08-2022 MCHC (RBC) [Mass/Vol] 31.5 g/dL 32-36 [facility] No Panel InformationOrdered By: Dr. Anderson on 02-08-2022 Estimated GFR (MDRD) Amer 105 mL/min >60 [facility] Comment on above: GFR Calc Estimated GFR (MDRD) Non-Af Amer 87 mL/min >60 [facility] Comment on above: Non- GFR Calc Platelets bldOrdered By: Dr. Anderson on 02-08-2022 Platelets (Bld) [#/Vol] 209 10*3/uL 150-450 [facility] Serum or plasma calcium moriah urement (mass/volume)Ordered By: Dr. Anderson on 02-08-2022 Calcium [Mass/Vol] 8.3 mg/dL 8.5-10.1 [facility] Serum or plasma creatinine m easurement (mass/volume)Ordered By: Dr. Anderson on 02-08-2022 Creatinine [Mass/Vol] 0.71 mg/dL 0.55-1.02 [facility] Comment on above: The validity of the calculated GFR & GFRAA in patients over 70 years has not been determined. Clinical correlation is essential. Serum or plasma urea nitroge n measurement (mass/volume)Ordered By: Dr. Anderson on 02-08-2022 Urea nitrogen [Mass/Vol] 10 mg/dL 7-18 [facility] Thin prep Papanicolaou smear with manual screeningOrdered By: Dr. Anderson on 02-08-2022 Thin prep Papanicolaou smear with manual screening 4 5-15 [facility] Absolute lymphocyte countOrd ered By: Dr. Anderson on 12-29-2021 Lymphocytes Auto (Unsp spec) [#/Vol] 2.72 10*3/uL 0.83-4.51 [facility] Basophil percentageOrdered B y: Dr. Anderson on 12-29-2021 Basophils/100 WBC (Bld) 1.0 % 0-1 [facility] Chloride [Moles/Vol] 107 mmol/L 98-107 [facility] Eosinophils/100 WBC (Bld) 7.1 % 0-5 [facility] Glucose [Mass/Vol] 77 mg/dL 74-106 [facility] Neutrophils (Bld) [#/Vol] 2.9 10*3/uL 2.0-7.7 [facility] Neutrophils/100 WBC (Bld) 41.4 % 47-70 [facility] [place] Potassium [Moles/Vol] 4.3 mmol/L 3.5-5.1 [facility] Sodium [Moles/Vol] 141 mmol/L 136-145 [facility] WBC (Bld) [#/Vol] 6.9 10*3/uL 4.4-11.0 [facility] Blood erythrocytes count (nu mber/volume)Ordered By: Dr. Anderson on 12-29-2021 RBC (Bld) [#/Vol] 3.42 10*6/uL 4.2-5.4 [facility] Blood hemoglobin measurement (mass/volume)Ordered By: Dr. Anderson on 12-29-2021 Hemoglobin (Bld) [Mass/Vol] 10.8 g/dL 12.0-15.0 [facility] Blood lymphocytes/100 leukoc ytesOrdered By: Dr. Anderson on 12-29-2021 Lymphocytes/100 WBC (Bld) 39.2 % 19-41 [facility] Blood monocytes/100 leukocyt esOrdered By: Dr. Anderson on 12-29-2021 Monocytes/100 WBC (Bld) 11.0 % 0-10 [facility] Blood platelet mean volumeOr dered By: Dr. Anderson on 12-29-2021 Platelet mean volume (Bld) [Entitic vol] 10.9 fL 6.2-12.0 [facility] Determination of erythrocyte mean corpuscular volume (MCV)Ordered By: Dr. Anderson on 12-29-2021 MCV (RBC) [Entitic vol] 105.0 fL 81-99 [facility] Hematocrit Auto (Bld) [Volum e fraction]Ordered By: Dr. Anderson on 12-29-2021 Hematocrit (Bld) [Volume fraction] 35.9 % 37-47 [facility] [place] Laboratory - Chemistry and C hemistry - challengeOrdered By: Dr. Anderson on 12-29-2021 CO2 [Moles/Vol] 30.0 mmol/L 21.0-32.0 [facility] [place] Cobalamin (Vitamin B12) [Mass/Vol] 682 pg/mL 211-911 [facility] [place] Urea nitrogen/Creatinine [Mass ratio] 13.8 mg/mg 10-20 [facility] [place] Laboratory - Hematology and Cell countsOrdered By: Dr. Anderson on 12-29-2021 Erythrocyte distribution width (RBC) [Entitic vol] 49.0 fL 35.1-43.9 [facility] [place] Erythrocyte distribution width (RBC) [Ratio] 12.8 % 11.6-14.6 [facility] Immature granulocytes/100 WBC (Bld) 0.300 % 0.0-0.9 [facility] Comment on above: IG% - Immature Granu locytes (promyelocytes, myelocytes and metamyelocytes) > 1% indicates that a LEFT SHIFT is Present. MCH (RBC) [Entitic mass] 31.6 pg 27.0-32.0 [facility] Nucleated RBC/100 WBC (Bld) [Ratio] 0 % 0-5 [facility] [place] MCHC Auto (RBC) [Mass/Vol]Or dered By: Dr. Anderson on 12-29-2021 MCHC (RBC) [Mass/Vol] 30.1 g/dL 32-36 [facility] No Panel InformationOrdered By: Dr. Anderson on 12-29-2021 Estimated GFR (MDRD) Amer 102 mL/min >60 [facility] Comment on above: GFR Calc Estimated GFR (MDRD) Non-Af Amer 85 mL/min >60 [facility] Comment on above: Non- GFR Calc Vitamin D 25-Hydroxy 45.3 ng/mL [facility] Comment on above: Vitamin D 25(OH) Sta tus Range Deficiency <20 ng/mL (50nmol/L) Insufficiency 20 - 30 ng/mL (50 - 75 nmol/L) Sufficiency 30 - 100 ng/mL (75 - 250 nmol/L) Toxicity >100 ng/mL (>250 nmol/L) Platelets bldOrdered By: Dr. Anderson on 12-29-2021 Platelets (Bld) [#/Vol] 308 10*3/uL 150-450 [facility] Serum or plasma calcium moriah urement (mass/volume)Ordered By: Dr. Anderson on 12-29-2021 Calcium [Mass/Vol] 8.5 mg/dL 8.5-10.1 [facility] Serum or plasma creatinine m easurement (mass/volume)Ordered By: Dr. Anderson on 12-29-2021 Creatinine [Mass/Vol] 0.72 mg/dL 0.55-1.02 [facility] Comment on above: The validity of the calculated GFR & GFRAA in patients over 70 years has not been determined. Clinical correlation is essential. Serum or plasma urea nitroge n measurement (mass/volume)Ordered By: Dr. Anderson on 12-29-2021 Urea nitrogen [Mass/Vol] 10 mg/dL 7-18 [facility] Thin prep Papanicolaou smear with manual screeningOrdered By: Dr. Anderson on 12-29-2021 Thin prep Papanicolaou smear with manual screening 4 5-15 [facility] Absolute lymphocyte countOrd ered By: Dr. Anderson on 12-23-2021 Lymphocytes Auto (Unsp spec) [#/Vol] 2.25 10*3/uL 0.83-4.51 [facility] Basophil percentageOrdered B y: Dr. Anderson on 12-23-2021 Basophils/100 WBC (Bld) 0.8 % 0-1 [facility] Chloride [Moles/Vol] 108 mmol/L 98-107 [facility] Eosinophils/100 WBC (Bld) 8.2 % 0-5 [facility] Glucose [Mass/Vol] 78 mg/dL 74-106 [facility] Neutrophils (Bld) [#/Vol] 5.2 10*3/uL 2.0-7.7 [facility] Neutrophils/100 WBC (Bld) 59.1 % 47-70 [facility] Potassium [Moles/Vol] 4.3 mmol/L 3.5-5.1 [facility] Sodium [Moles/Vol] 141 mmol/L 136-145 [facility] WBC (Bld) [#/Vol] 8.8 10*3/uL 4.4-11.0 [facility] Blood erythrocytes count (nu mber/volume)Ordered By: Dr. Anderson on 12-23-2021 RBC (Bld) [#/Vol] 3.52 10*6/uL 4.2-5.4 [facility] Blood hemoglobin measurement (mass/volume)Ordered By: Dr. Anderson on 12-23-2021 Hemoglobin (Bld) [Mass/Vol] 11.0 g/dL 12.0-15.0 [facility] Blood lymphocytes/100 leukoc ytesOrdered By: Dr. Anderson on 12-23-2021 Lymphocytes/100 WBC (Bld) 25.7 % 19-41 [facility] Blood monocytes/100 leukocyt esOrdered By: Dr. Anderson on 12-23-2021 Monocytes/100 WBC (Bld) 5.9 % 0-10 [facility] Blood platelet mean volumeOr dered By: Dr. Anderson on 12-23-2021 Platelet mean volume (Bld) [Entitic vol] 10.3 fL 6.2-12.0 [facility] Determination of erythrocyte mean corpuscular volume (MCV)Ordered By: Dr. Anderson on 12-23-2021 MCV (RBC) [Entitic vol] 103.4 fL 81-99 [facility] Hematocrit Auto (Bld) [Volum e fraction]Ordered By: Dr. Anderson on 12-23-2021 Hematocrit (Bld) [Volume fraction] 36.4 % 37-47 [facility] [place] Laboratory - Chemistry and C hemistry - challengeOrdered By: Dr. Anderson on 12-23-2021 CO2 [Moles/Vol] 30.0 mmol/L 21.0-32.0 [facility] [place] Urea nitrogen/Creatinine [Mass ratio] 16.4 mg/mg 10-20 [facility] [place] Laboratory - Hematology and Cell countsOrdered By: Dr. Anderson on 12-23-2021 Erythrocyte distribution width (RBC) [Entitic vol] 46.5 fL 35.1-43.9 [facility] Erythrocyte distribution width (RBC) [Ratio] 12.4 % 11.6-14.6 [facility] Immature granulocytes/100 WBC (Bld) 0.300 % 0.0-0.9 [facility] Comment on above: IG% - Immature Granu locytes (promyelocytes, myelocytes and metamyelocytes) > 1% indicates that a LEFT SHIFT is Present. MCH (RBC) [Entitic mass] 31.3 pg 27.0-32.0 [facility] Nucleated RBC/100 WBC (Bld) [Ratio] 0 % 0-5 [facility] [place] MCHC Auto (RBC) [Mass/Vol]Or dered By: Dr. Anderson on 12-23-2021 MCHC (RBC) [Mass/Vol] 30.2 g/dL 32-36 [facility] No Panel InformationOrdered By: Dr. Anderson on 12-23-2021 Estimated GFR (MDRD) Amer 101 mL/min >60 [facility] Comment on above: GFR Calc Estimated GFR (MDRD) Non-Af Amer 84 mL/min >60 [facility] [place] Comment on above: Non- GFR Calc Platelets bldOrdered By: Dr. Anderson on 12-23-2021 Platelets (Bld) [#/Vol] 321 10*3/uL 150-450 [facility] [place] Serum or plasma calcium moriah urement (mass/volume)Ordered By: Dr. Anderson on 12-23-2021 Calcium [Mass/Vol] 8.6 mg/dL 8.5-10.1 [facility] Serum or plasma creatinine m easurement (mass/volume)Ordered By: Dr. Anderson on 12-23-2021 Creatinine [Mass/Vol] 0.73 mg/dL 0.55-1.02 [facility] Comment on above: The validity of the calculated GFR & GFRAA in patients over 70 years has not been determined. Clinical correlation is essential. Serum or plasma urea nitroge n measurement (mass/volume)Ordered By: Dr. Anderson on 12-23-2021 Urea nitrogen [Mass/Vol] 12 mg/dL 7-18 [facility] [place] Thin prep Papanicolaou smear with manual screeningOrdered By: Dr. Anderson on 12-23-2021 Thin prep Papanicolaou smear with manual screening 3 5-15 [facility] Absolute lymphocyte counton 12-16-2021 Lymphocytes Auto (Unsp spec) [#/Vol] 2.93 10*3/uL 0.83-4.51 [facility] Work Phone: Basophil percentageon 2021 Basophils/100 WBC (Bld) 0.9 % 0-1 [facility] Work Phone: Chloride [Moles/Vol] 106 mmol/L 98-107 [facility] Work Phone: Eosinophils/100 WBC (Bld) 11.4 % 0-5 [facility] Work Phone: Glucose [Mass/Vol] 84 mg/dL 74-106 [facility] Work Phone: Neutrophils (Bld) [#/Vol] 2.3 10*3/uL 2.0-7.7 [facility] Work Phone: Neutrophils/100 WBC (Bld) 34.0 % 47-70 [facility] Work Phone: Potassium [Moles/Vol] 3.6 mmol/L 3.5-5.1 [facility] Work Phone: Sodium [Moles/Vol] 143 mmol/L 136-145 [facility] Work Phone: WBC (Bld) [#/Vol] 6.6 10*3/uL 4.4-11.0 [facility] Work Phone: Blood erythrocytes count (nu mber/volume)on 12-16-2021 RBC (Bld) [#/Vol] 3.54 10*6/uL 4.2-5.4 [facility] Work Phone: Blood hemoglobin measurement (mass/volume)on 12-16-2021 Hemoglobin (Bld) [Mass/Vol] 11.4 g/dL 12.0-15.0 [facility] Work Phone: Blood lymphocytes/100 leukoc yteson 12-16-2021 Lymphocytes/100 WBC (Bld) 44.4 % 19-41 [facility] Work Phone: Blood monocytes/100 leukocyt eson 12-16-2021 Monocytes/100 WBC (Bld) 9.1 % 0-10 [facility] Work Phone: Blood platelet mean volumeon 12-16-2021 Platelet mean volume (Bld) [Entitic vol] 10.4 fL 6.2-12.0 [facility] Work Phone: Determination of erythrocyte mean corpuscular volume (MCV)on 12-16-2021 MCV (RBC) [Entitic vol] 103.1 fL 81-99 [facility] Work Phone: Hematocrit Auto (Bld) [Volum e fraction]on 12-16-2021 Hematocrit (Bld) [Volume fraction] 36.5 % 37-47 [facility] Work Phone: Laboratory - Chemistry and C hemistry - challengeon 12-16-2021 CO2 [Moles/Vol] 30.0 mmol/L 21.0-32.0 [facility] Work Phone: Urea nitrogen/Creatinine [Mass ratio] 14.7 mg/mg 10-20 [facility] Work Phone: Laboratory - Hematology and Cell countson 12-16-2021 Erythrocyte distribution width (RBC) [Entitic vol] 46.3 fL 35.1-43.9 [facility] Work Phone: Erythrocyte distribution width (RBC) [Ratio] 12.1 % 11.6-14.6 [facility] Work Phone: Immature granulocytes/100 WBC (Bld) 0.200 % 0.0-0.9 [facility] Work Phone: Comment on above: IG% - Immature Granu locytes (promyelocytes, myelocytes and metamyelocytes) > 1% indicates that a LEFT SHIFT is Present. MCH (RBC) [Entitic mass] 32.2 pg 27.0-32.0 [facility] Work Phone: Nucleated RBC/100 WBC (Bld) [Ratio] 0 % 0-5 [facility] Work Phone: MCHC Auto (RBC) [Mass/Vol]on 12-16-2021 MCHC (RBC) [Mass/Vol] 31.2 g/dL 32-36 [facility] Work Phone: No Panel Informationon 12-16 Estimated GFR (MDRD) Amer 110 mL/min >60 [facility] Work Phone: Comment on above: GFR Calc Estimated GFR (MDRD) Non-Af Amer 91 mL/min >60 [facility] Work Phone: Comment on above: Non- GFR Calc Platelets bldon 12-16-2021 Platelets (Bld) [#/Vol] 292 10*3/uL 150-450 [facility] Work Phone: Serum or plasma calcium moriah urement (mass/volume)on 12-16-2021 Calcium [Mass/Vol] 8.7 mg/dL 8.5-10.1 [facility] Work Phone: Serum or plasma creatinine m easurement (mass/volume)on 12-16-2021 Creatinine [Mass/Vol] 0.68 mg/dL 0.55-1.02 [facility] Work Phone: Comment on above: The validity of the calculated GFR & GFRAA in patients over 70 years has not been determined. Clinical correlation is essential. Serum or plasma urea nitroge n measurement (mass/volume)on 12-16-2021 Urea nitrogen [Mass/Vol] 10 mg/dL 7-18 [facility] Work Phone: Thin prep Papanicolaou smear with manual screeningon 12-16-2021 Thin prep Papanicolaou smear with manual screening 7 5-15 [facility] Work Phone: Absolute lymphocyte counton 12-09-2021 Lymphocytes Auto (Unsp spec) [#/Vol] 2.45 10*3/uL 0.83-4.51 [facility] Work Phone: Basophil percentageon 2021 Basophils/100 WBC (Bld) 1.4 % 0-1 [facility] Work Phone: Chloride [Moles/Vol] 108 mmol/L 98-107 [facility] Work Phone: Eosinophils/100 WBC (Bld) 9.7 % 0-5 [facility] Work Phone: Glucose [Mass/Vol] 73 mg/dL 74-106 [facility] Work Phone: Neutrophils (Bld) [#/Vol] 2.1 10*3/uL 2.0-7.7 [facility] Work Phone: Neutrophils/100 WBC (Bld) 36.8 % 47-70 [facility] Work Phone: Potassium [Moles/Vol] 3.7 mmol/L 3.5-5.1 [facility] Work Phone: Sodium [Moles/Vol] 143 mmol/L 136-145 [facility] Work Phone: WBC (Bld) [#/Vol] 5.8 10*3/uL 4.4-11.0 [facility] Work Phone: Blood erythrocytes count (nu mber/volume)on 12-09-2021 RBC (Bld) [#/Vol] 3.68 10*6/uL 4.2-5.4 [facility] Work Phone: Blood hemoglobin measurement (mass/volume)on 12-09-2021 Hemoglobin (Bld) [Mass/Vol] 11.8 g/dL 12.0-15.0 [facility] Work Phone: Blood lymphocytes/100 leukoc yteson 12-09-2021 Lymphocytes/100 WBC (Bld) 42.5 % 19-41 [facility] Work Phone: Blood monocytes/100 leukocyt eson 12-09-2021 Monocytes/100 WBC (Bld) 9.4 % 0-10 [facility] Work Phone: Blood platelet mean volumeon 12-09-2021 Platelet mean volume (Bld) [Entitic vol] 10.3 fL 6.2-12.0 [facility] Work Phone: Determination of erythrocyte mean corpuscular volume (MCV)on 12-09-2021 MCV (RBC) [Entitic vol] 103.8 fL 81-99 [facility] Work Phone: Hematocrit Auto (Bld) [Volum e fraction]on 12-09-2021 Hematocrit (Bld) [Volume fraction] 38.2 % 37-47 [facility] Work Phone: Laboratory - Chemistry and C hemistry - challengeon 12-09-2021 CO2 [Moles/Vol] 30.0 mmol/L 21.0-32.0 [facility] Work Phone: Urea nitrogen/Creatinine [Mass ratio] 7.4 mg/mg 10-20 [facility] Work Phone: Laboratory - Hematology and Cell countson 12-09-2021 Erythrocyte distribution width (RBC) [Entitic vol] 47.8 fL 35.1-43.9 [facility] Work Phone: Erythrocyte distribution width (RBC) [Ratio] 12.5 % 11.6-14.6 [facility] Work Phone: Immature granulocytes/100 WBC (Bld) 0.200 % 0.0-0.9 [facility] Work Phone: Comment on above: IG% - Immature Granu locytes (promyelocytes, myelocytes and metamyelocytes) > 1% indicates that a LEFT SHIFT is Present. MCH (RBC) [Entitic mass] 32.1 pg 27.0-32.0 [facility] Work Phone: Nucleated RBC/100 WBC (Bld) [Ratio] 0 % 0-5 [facility] Work Phone: MCHC Auto (RBC) [Mass/Vol]on 12-09-2021 MCHC (RBC) [Mass/Vol] 30.9 g/dL 32-36 [facility] Work Phone: No Panel Informationon 12-09 Estimated GFR (MDRD) Amer 90 mL/min >60 [facility] Work Phone: Comment on above: GFR Calc Estimated GFR (MDRD) Non-Af Amer 75 mL/min >60 [facility] Work Phone: Comment on above: Non- GFR Calc Platelets bldon 12-09-2021 Platelets (Bld) [#/Vol] 255 10*3/uL 150-450 [facility] Work Phone: Serum or plasma calcium moriah urement (mass/volume)on 12-09-2021 Calcium [Mass/Vol] 8.7 mg/dL 8.5-10.1 [facility] Work Phone: Serum or plasma creatinine m easurement (mass/volume)on 12-09-2021 Creatinine [Mass/Vol] 0.81 mg/dL 0.55-1.02 [facility] Work Phone: Comment on above: The validity of the calculated GFR & GFRAA in patients over 70 years has not been determined. Clinical correlation is essential. Serum or plasma urea nitroge n measurement (mass/volume)on 12-09-2021 Urea nitrogen [Mass/Vol] 6 mg/dL 7-18 [facility] Work Phone: Thin prep Papanicolaou smear with manual screeningon 12-09-2021 Thin prep Papanicolaou smear with manual screening 5 5-15 [facility] Work Phone: Absolute lymphocyte counton 12-02-2021 Lymphocytes Auto (Unsp spec) [#/Vol] 3.00 10*3/uL 0.83-4.51 [facility] Work Phone: Basophil percentageon 2021 Basophils/100 WBC (Bld) 1.0 % 0-1 [facility] Work Phone: Chloride [Moles/Vol] 108 mmol/L 98-107 [facility] Work Phone: Eosinophils/100 WBC (Bld) 8.7 % 0-5 [facility] Work Phone: Glucose [Mass/Vol] 76 mg/dL 74-106 [facility] Work Phone: Neutrophils (Bld) [#/Vol] 1.8 10*3/uL 2.0-7.7 [facility] Work Phone: Neutrophils/100 WBC (Bld) 30.4 % 47-70 [facility] Work Phone: Potassium [Moles/Vol] 3.9 mmol/L 3.5-5.1 [facility] Work Phone: Sodium [Moles/Vol] 142 mmol/L 136-145 [facility] Work Phone: WBC (Bld) [#/Vol] 6.0 10*3/uL 4.4-11.0 [facility] Work Phone: Blood erythrocytes count (nu mber/volume)on 12-02-2021 RBC (Bld) [#/Vol] 3.43 10*6/uL 4.2-5.4 [facility] Work Phone: Blood hemoglobin measurement (mass/volume)on 12-02-2021 Hemoglobin (Bld) [Mass/Vol] 11.1 g/dL 12.0-15.0 [facility] Work Phone: Blood lymphocytes/100 leukoc yteson 12-02-2021 Lymphocytes/100 WBC (Bld) 50.2 % 19-41 [facility] Work Phone: Blood monocytes/100 leukocyt eson 12-02-2021 Monocytes/100 WBC (Bld) 9.5 % 0-10 [facility] Work Phone: Blood platelet mean volumeon 12-02-2021 Platelet mean volume (Bld) [Entitic vol] 10.6 fL 6.2-12.0 [facility] Work Phone: Determination of erythrocyte mean corpuscular volume (MCV)on 12-02-2021 MCV (RBC) [Entitic vol] 103.8 fL 81-99 [facility] Work Phone: Hematocrit Auto (Bld) [Volum e fraction]on 12-02-2021 Hematocrit (Bld) [Volume fraction] 35.6 % 37-47 [facility] Work Phone: Laboratory - Chemistry and C hemistry - challengeon 12-02-2021 CO2 [Moles/Vol] 29.0 mmol/L 21.0-32.0 [facility] Work Phone: Urea nitrogen/Creatinine [Mass ratio] 8.5 mg/mg 10-20 [facility] Work Phone: Laboratory - Hematology and Cell countson 12-02-2021 Erythrocyte distribution width (RBC) [Entitic vol] 47.6 fL 35.1-43.9 [facility] Work Phone: Erythrocyte distribution width (RBC) [Ratio] 12.4 % 11.6-14.6 [facility] Work Phone: Immature granulocytes/100 WBC (Bld) 0.200 % 0.0-0.9 [facility] Work Phone: Comment on above: IG% - Immature Granu locytes (promyelocytes, myelocytes and metamyelocytes) > 1% indicates that a LEFT SHIFT is Present. MCH (RBC) [Entitic mass] 32.4 pg 27.0-32.0 [facility] Work Phone: Nucleated RBC/100 WBC (Bld) [Ratio] 0 % 0-5 [facility] Work Phone: MCHC Auto (RBC) [Mass/Vol]on 12-02-2021 MCHC (RBC) [Mass/Vol] 31.2 g/dL 32-36 [facility] Work Phone: No Panel Informationon 12-02 Estimated GFR (MDRD) Amer 105 mL/min >60 [facility] Work Phone: Comment on above: GFR Calc Estimated GFR (MDRD) Non-Af Amer 86 mL/min >60 [facility] [facility] Work Phone: Comment on above: Non- GFR Calc Platelets bldon 12-02-2021 Platelets (Bld) [#/Vol] 254 10*3/uL 150-450 [facility] [place] Work Phone: Serum or plasma calcium moriah urement (mass/volume)on 12-02-2021 Calcium [Mass/Vol] 8.6 mg/dL 8.5-10.1 [facility] Work Phone: Serum or plasma creatinine m easurement (mass/volume)on 12-02-2021 Creatinine [Mass/Vol] 0.71 mg/dL 0.55-1.02 [facility] Work Phone: Comment on above: The validity of the calculated GFR & GFRAA in patients over 70 years has not been determined. Clinical correlation is essential. Serum or plasma urea nitroge n measurement (mass/volume)on 12-02-2021 Urea nitrogen [Mass/Vol] 6 mg/dL 7-18 [facility] Work Phone: Thin prep Papanicolaou smear with manual screeningon 12-02-2021 Thin prep Papanicolaou smear with manual screening 5 5-15 [facility] Work Phone: Absolute lymphocyte counton 11-25-2021 Lymphocytes Auto (Unsp spec) [#/Vol] 2.70 10*3/uL 0.83-4.51 [facility] Work Phone: Basophil percentageon 2021 Basophils/100 WBC (Bld) 1.1 % 0-1 [facility] Work Phone: Chloride [Moles/Vol] 107 mmol/L 98-107 [facility] Work Phone: Eosinophils/100 WBC (Bld) 8.6 % 0-5 [facility] Work Phone: Glucose [Mass/Vol] 77 mg/dL 74-106 [facility] Work Phone: Neutrophils (Bld) [#/Vol] 1.6 10*3/uL 2.0-7.7 [facility] Work Phone: Neutrophils/100 WBC (Bld) 29.4 % 47-70 [facility] Work Phone: Potassium [Moles/Vol] 3.7 mmol/L 3.5-5.1 [facility] Work Phone: Sodium [Moles/Vol] 142 mmol/L 136-145 [facility] Work Phone: WBC (Bld) [#/Vol] 5.4 10*3/uL 4.4-11.0 [facility] Work Phone: Blood erythrocytes count (nu mber/volume)on 11-25-2021 RBC (Bld) [#/Vol] 3.46 10*6/uL 4.2-5.4 [facility] Work Phone: Blood hemoglobin measurement (mass/volume)on 11-25-2021 Hemoglobin (Bld) [Mass/Vol] 11.3 g/dL 12.0-15.0 [facility] Work Phone: Blood lymphocytes/100 leukoc yteson 11-25-2021 Lymphocytes/100 WBC (Bld) 50.3 % 19-41 [facility] Work Phone: Blood monocytes/100 leukocyt eson 11-25-2021 Monocytes/100 WBC (Bld) 10.4 % 0-10 [facility] Work Phone: Blood platelet mean volumeon 11-25-2021 Platelet mean volume (Bld) [Entitic vol] 10.4 fL 6.2-12.0 [facility] Work Phone: Determination of erythrocyte mean corpuscular volume (MCV)on 11-25-2021 MCV (RBC) [Entitic vol] 102.9 fL 81-99 [facility] Work Phone: Hematocrit Auto (Bld) [Volum e fraction]on 11-25-2021 Hematocrit (Bld) [Volume fraction] 35.6 % 37-47 [facility] [place] Work Phone: Laboratory - Chemistry and C hemistry - challengeon 11-25-2021 CO2 [Moles/Vol] 29.0 mmol/L 21.0-32.0 [facility] Work Phone: Urea nitrogen/Creatinine [Mass ratio] 8.9 mg/mg 10-20 [facility] Work Phone: Laboratory - Hematology and Cell countson 11-25-2021 Erythrocyte distribution width (RBC) [Entitic vol] 47.5 fL 35.1-43.9 [facility] Work Phone: Erythrocyte distribution width (RBC) [Ratio] 12.7 % 11.6-14.6 [facility] Work Phone: Immature granulocytes/100 WBC (Bld) 0.200 % 0.0-0.9 [facility] Work Phone: Comment on above: IG% - Immature Granu locytes (promyelocytes, myelocytes and metamyelocytes) > 1% indicates that a LEFT SHIFT is Present. MCH (RBC) [Entitic mass] 32.7 pg 27.0-32.0 [facility] Work Phone: Nucleated RBC/100 WBC (Bld) [Ratio] 0 % 0-5 [facility] Work Phone: MCHC Auto (RBC) [Mass/Vol]on 11-25-2021 MCHC (RBC) [Mass/Vol] 31.7 g/dL 32-36 [facility] Work Phone: No Panel Informationon 11-25 Estimated GFR (MDRD) Amer 111 mL/min >60 [facility] Work Phone: Comment on above: GFR Calc Estimated GFR (MDRD) Non-Af Amer 92 mL/min >60 [facility] Work Phone: Comment on above: Non- GFR Calc Platelets bldon 11-25-2021 Platelets (Bld) [#/Vol] 278 10*3/uL 150-450 [facility] Work Phone: Serum or plasma calcium moriah urement (mass/volume)on 11-25-2021 Calcium [Mass/Vol] 8.8 mg/dL 8.5-10.1 [facility] Work Phone: Serum or plasma creatinine m easurement (mass/volume)on 11-25-2021 Creatinine [Mass/Vol] 0.67 mg/dL 0.55-1.02 [facility] Work Phone: Comment on above: The validity of the calculated GFR & GFRAA in patients over 70 years has not been determined. Clinical correlation is essential. Serum or plasma urea nitroge n measurement (mass/volume)on 11-25-2021 Urea nitrogen [Mass/Vol] 6 mg/dL 7-18 [facility] Work Phone: Thin prep Papanicolaou smear with manual screeningon 11-25-2021 Thin prep Papanicolaou smear with manual screening 6 5-15 [facility] Work Phone: Absolute lymphocyte counton 11-18-2021 Lymphocytes Auto (Unsp spec) [#/Vol] 2.55 10*3/uL 0.83-4.51 [facility] Work Phone: Basophil percentageon 2021 Basophils/100 WBC (Bld) 1.0 % 0-1 [facility] Work Phone: Chloride [Moles/Vol] 108 mmol/L 98-107 [facility] Work Phone: Eosinophils/100 WBC (Bld) 6.6 % 0-5 [facility] Work Phone: Glucose [Mass/Vol] 75 mg/dL 74-106 [facility] Work Phone: Neutrophils (Bld) [#/Vol] 2.3 10*3/uL 2.0-7.7 [facility] Work Phone: Neutrophils/100 WBC (Bld) 38.2 % 47-70 [facility] Work Phone: Potassium [Moles/Vol] 3.6 mmol/L 3.5-5.1 [facility] Work Phone: Sodium [Moles/Vol] 142 mmol/L 136-145 [facility] Work Phone: WBC (Bld) [#/Vol] 5.9 10*3/uL 4.4-11.0 [facility] Work Phone: Blood erythrocytes count (nu mber/volume)on 11-18-2021 RBC (Bld) [#/Vol] 3.32 10*6/uL 4.2-5.4 [facility] Work Phone: Blood hemoglobin measurement (mass/volume)on 11-18-2021 Hemoglobin (Bld) [Mass/Vol] 10.9 g/dL 12.0-15.0 [facility] Work Phone: Blood lymphocytes/100 leukoc yteson 11-18-2021 Lymphocytes/100 WBC (Bld) 43.2 % 19-41 [facility] Work Phone: Blood monocytes/100 leukocyt eson 11-18-2021 Monocytes/100 WBC (Bld) 10.8 % 0-10 [facility] Work Phone: Blood platelet mean volumeon 11-18-2021 Platelet mean volume (Bld) [Entitic vol] 10.1 fL 6.2-12.0 [facility] Work Phone: Determination of erythrocyte mean corpuscular volume (MCV)on 11-18-2021 MCV (RBC) [Entitic vol] 103.3 fL 81-99 [facility] Work Phone: Hematocrit Auto (Bld) [Volum e fraction]on 11-18-2021 Hematocrit (Bld) [Volume fraction] 34.3 % 37-47 [facility] Work Phone: Laboratory - Chemistry and C hemistry - challengeon 11-18-2021 CO2 [Moles/Vol] 32.0 mmol/L 21.0-32.0 [facility] Work Phone: Urea nitrogen/Creatinine [Mass ratio] 10.9 mg/mg 10-20 [facility] Work Phone: Laboratory - Hematology and Cell countson 11-18-2021 Erythrocyte distribution width (RBC) [Entitic vol] 49.1 fL 35.1-43.9 [facility] Work Phone: Erythrocyte distribution width (RBC) [Ratio] 13.0 % 11.6-14.6 [facility] Work Phone: Immature granulocytes/100 WBC (Bld) 0.200 % 0.0-0.9 [facility] Work Phone: Comment on above: IG% - Immature Granu locytes (promyelocytes, myelocytes and metamyelocytes) > 1% indicates that a LEFT SHIFT is Present. MCH (RBC) [Entitic mass] 32.8 pg 27.0-32.0 [facility] Work Phone: Nucleated RBC/100 WBC (Bld) [Ratio] 0 % 0-5 [facility] Work Phone: MCHC Auto (RBC) [Mass/Vol]on 11-18-2021 MCHC (RBC) [Mass/Vol] 31.8 g/dL 32-36 [facility]: No Panel Informationon 11-18 Estimated GFR (MDRD) Amer 117 mL/min >60 [facility] Work Phone: Comment on above: GFR Calc Estimated GFR (MDRD) Non-Af Amer 97 mL/min >60 [facility] Work Phone: Comment on above: Non- GFR Calc Platelets bldon 11-18-2021 Platelets (Bld) [#/Vol] 281 10*3/uL 150-450 [facility] Work Phone: Serum or plasma calcium moriah urement (mass/volume)on 11-18-2021 Calcium [Mass/Vol] 8.6 mg/dL 8.5-10.1 [facility] Work Phone: Serum or plasma creatinine m easurement (mass/volume)on 11-18-2021 Creatinine [Mass/Vol] 0.64 mg/dL 0.55-1.02 [facility] Work Phone: Comment on above: The validity of the calculated GFR & GFRAA in patients over 70 years has not been determined. Clinical correlation is essential. Serum or plasma urea nitroge n measurement (mass/volume)on 11-18-2021 Urea nitrogen [Mass/Vol] 7 mg/dL 7-18 [facility] Work Phone: Thin prep Papanicolaou smear with manual screeningon 11-18-2021 Thin prep Papanicolaou smear with manual screening 2 5-15 [facility] Work Phone: Absolute lymphocyte counton 11-11-2021 Lymphocytes Auto (Unsp spec) [#/Vol] 2.30 10*3/uL 0.83-4.51 [facility] Work Phone: Basophil percentageon 2021 Basophils/100 WBC (Bld) 1.0 % 0-1 [facility] Work Phone: Chloride [Moles/Vol] 106 mmol/L 98-107 [facility] Work Phone: Eosinophils/100 WBC (Bld) 8.8 % 0-5 [facility] Work Phone: Glucose [Mass/Vol] 83 mg/dL 74-106 [facility] Work Phone: Neutrophils (Bld) [#/Vol] 2.5 10*3/uL 2.0-7.7 [facility] Work Phone: Neutrophils/100 WBC (Bld) 41.1 % 47-70 [facility] Work Phone: Potassium [Moles/Vol] 4.0 mmol/L 3.5-5.1 [facility] Work Phone: Sodium [Moles/Vol] 141 mmol/L 136-145 [facility] Work Phone: WBC (Bld) [#/Vol] 6.2 10*3/uL 4.4-11.0 [facility] Work Phone: Blood erythrocytes count (nu mber/volume)on 11-11-2021 RBC (Bld) [#/Vol] 3.46 10*6/uL 4.2-5.4 [facility] Work Phone: Blood hemoglobin measurement (mass/volume)on 11-11-2021 Hemoglobin (Bld) [Mass/Vol] 11.4 g/dL 12.0-15.0 [facility] Work Phone: Blood lymphocytes/100 leukoc yteson 11-11-2021 Lymphocytes/100 WBC (Bld) 37.4 % 19-41 [facility] Work Phone: Blood monocytes/100 leukocyt eson 11-11-2021 Monocytes/100 WBC (Bld) 11.4 % 0-10 [facility] Work Phone: Blood platelet mean volumeon 11-11-2021 Platelet mean volume (Bld) [Entitic vol] 10.1 fL 6.2-12.0 [facility] Work Phone: Determination of erythrocyte mean corpuscular volume (MCV)on 11-11-2021 MCV (RBC) [Entitic vol] 102.0 fL 81-99 [facility] Work Phone: Hematocrit Auto (Bld) [Volum e fraction]on 11-11-2021 Hematocrit (Bld) [Volume fraction] 35.3 % 37-47 [facility] Work Phone: Laboratory - Chemistry and C hemistry - challengeon 11-11-2021 CO2 [Moles/Vol] 31.0 mmol/L 21.0-32.0 [facility] Work Phone: Urea nitrogen/Creatinine [Mass ratio] 5.0 mg/mg 10-20 [facility] Work Phone: Laboratory - Hematology and Cell countson 11-11-2021 Erythrocyte distribution width (RBC) [Entitic vol] 50.2 fL 35.1-43.9 [facility] Work Phone: Erythrocyte distribution width (RBC) [Ratio] 13.3 % 11.6-14.6 [facility] Work Phone: Immature granulocytes/100 WBC (Bld) 0.300 % 0.0-0.9 [facility] Work Phone: Comment on above: IG% - Immature Granu locytes (promyelocytes, myelocytes and metamyelocytes) > 1% indicates that a LEFT SHIFT is Present. MCH (RBC) [Entitic mass] 32.9 pg 27.0-32.0 [facility] Work Phone: Nucleated RBC/100 WBC (Bld) [Ratio] 0 % 0-5 [facility] Work Phone: MCHC Auto (RBC) [Mass/Vol]on 11-11-2021 MCHC (RBC) [Mass/Vol] 32.3 g/dL 32-36 [facility] Work Phone: No Panel Informationon 11-11 Estimated GFR (MDRD) Amer 91 mL/min >60 [facility] Work Phone: Comment on above: GFR Calc Estimated GFR (MDRD) Non-Af Amer 75 mL/min >60 [facility] Work Phone: Comment on above: Non- GFR Calc Platelets bldon 11-11-2021 Platelets (Bld) [#/Vol] 265 10*3/uL 150-450 [facility] Work Phone: Serum or plasma calcium moriah urement (mass/volume)on 11-11-2021 Calcium [Mass/Vol] 8.7 mg/dL 8.5-10.1 [facility] Work Phone: Serum or plasma creatinine m easurement (mass/volume)on 11-11-2021 Creatinine [Mass/Vol] 0.80 mg/dL 0.55-1.02 [facility] Work Phone: Comment on above: The validity of the calculated GFR & GFRAA in patients over 70 years has not been determined. Clinical correlation is essential. Serum or plasma urea nitroge n measurement (mass/volume)on 11-11-2021 Urea nitrogen [Mass/Vol] 4 mg/dL 7-18 [facility] Work Phone: Thin prep Papanicolaou smear with manual screeningon 11-11-2021 Thin prep Papanicolaou smear with manual screening 4 5-15 [facility] Work Phone: Absolute lymphocyte counton 11-04-2021 Lymphocytes Auto (Unsp spec) [#/Vol] 2.09 10*3/uL 0.83-4.51 [facility] Work Phone: Basophil percentageon 2021 Basophils/100 WBC (Bld) 0.8 % 0-1 [facility] Work Phone: Chloride [Moles/Vol] 106 mmol/L 98-107 [facility] Work Phone: Eosinophils/100 WBC (Bld) 9.1 % 0-5 [facility] Work Phone: Glucose [Mass/Vol] 123 mg/dL 74-106 [facility] Work Phone: Comment on above: Fasting Glucose resu lt from 100 to 125 mg/dL suggests IMPAIRED HOMEOSTASIS per A.D.A. criteria. Neutrophils (Bld) [#/Vol] 4.1 10*3/uL 2.0-7.7 [facility] Work Phone: Neutrophils/100 WBC (Bld) 55.0 % 47-70 [facility] Work Phone: Potassium [Moles/Vol] 3.9 mmol/L 3.5-5.1 [facility] Work [place]: Sodium [Moles/Vol] 142 mmol/L 136-[address] [facility] [facility] Work Phone: WBC (Bld) [#/Vol] 7.5 10*3/uL 4.4-11.[address] [facility] Work [place]: Blood erythrocytes count (nu mber/volume)on 11-04-2021 RBC (Bld) [#/Vol] 3.57 10*6/uL 4.2-5.4 [facility] Work Phone: Blood hemoglobin measurement (mass/volume)on 11-04-2021 Hemoglobin (Bld) [Mass/Vol] 11.7 g/dL 12.0-15.0 [facility] Work Phone: Blood lymphocytes/100 leukoc yteson 11-04-2021 Lymphocytes/100 WBC (Bld) 28.0 % 19-41 [facility] Work Phone: Blood monocytes/100 leukocyt eson 11-04-2021 Monocytes/100 WBC (Bld) 6.8 % 0-10 [facility] Work Phone: Blood platelet mean volumeon 11-04-2021 Platelet mean volume (Bld) [Entitic vol] 10.1 fL 6.2-12.0 [facility] Work Phone: Determination of erythrocyte mean corpuscular volume (MCV)on 11-04-2021 MCV (RBC) [Entitic vol] 104.8 fL 81-99 [facility] Work Phone: Hematocrit Auto (Bld) [Volum e fraction]on 11-04-2021 Hematocrit (Bld) [Volume fraction] 37.4 % 37-47 [facility] Work Phone: Laboratory - Chemistry and C hemistry - challengeon 11-04-2021 CO2 [Moles/Vol] 29.0 mmol/L 21.0-32.0 [facility] Work Phone: Urea nitrogen/Creatinine [Mass ratio] 13.3 mg/mg 10-20 [facility] Work Phone: Laboratory - Hematology and Cell countson 11-04-2021 Erythrocyte distribution width (RBC) [Entitic vol] 52.9 fL 35.1-43.9 [facility] Work Phone: Erythrocyte distribution width (RBC) [Ratio] 13.6 % 11.6-14.6 [facility] Work Phone: Immature granulocytes/100 WBC (Bld) 0.300 % 0.0-0.9 [facility] Work Phone: Comment on above: IG% - Immature Granu locytes (promyelocytes, myelocytes and metamyelocytes) > 1% indicates that a LEFT SHIFT is Present. MCH (RBC) [Entitic mass] 32.8 pg 27.0-32.0 [facility] Work Phone: Nucleated RBC/100 WBC (Bld) [Ratio] 0 % 0-5 [facility] Work Phone: MCHC Auto (RBC) [Mass/Vol]on 11-04-2021 MCHC (RBC) [Mass/Vol] 31.3 g/dL 32-36 [facility] Work Phone: No Panel Informationon 11-04 Estimated GFR (MDRD) Amer 110 mL/min >60 [facility] Work Phone: Comment on above: GFR Calc Estimated GFR (MDRD) Non-Af Amer 91 mL/min >60 [facility] Work Phone: Comment on above: Non- GFR Calc Platelets bldon 11-04-2021 Platelets (Bld) [#/Vol] 294 10*3/uL 150-450 [facility] Work Phone: Serum or plasma calcium moriah urement (mass/volume)on 11-04-2021 Calcium [Mass/Vol] 8.7 mg/dL 8.5-10.1 [facility] Work Phone: Serum or plasma creatinine m easurement (mass/volume)on 11-04-2021 Creatinine [Mass/Vol] 0.68 mg/dL 0.55-1.02 [facility] Work Phone: Comment on above: The validity of the calculated GFR & GFRAA in patients over 70 years has not been determined. Clinical correlation is essential. Serum or plasma urea nitroge n measurement (mass/volume)on 11-04-2021 Urea nitrogen [Mass/Vol] 9 mg/dL 7-18 [facility] Work Phone: Thin prep Papanicolaou smear with manual screeningon 11-04-2021 Thin prep Papanicolaou smear with manual screening 7 5-15 [facility] Work Phone: Absolute lymphocyte counton 10-28-2021 Lymphocytes Auto (Unsp spec) [#/Vol] 2.54 10*3/uL 0.83-4.51 [facility] Work Phone: Basophil percentageon 2021 Basophils/100 WBC (Bld) 0.7 % 0-1 [facility] Work Phone: Chloride [Moles/Vol] 106 mmol/L 98-107 [facility] Work Phone: Eosinophils/100 WBC (Bld) 6.6 % 0-5 [facility] Work Phone: Glucose [Mass/Vol] 82 mg/dL 74-106 [facility] Work Phone: Neutrophils (Bld) [#/Vol] 3.1 10*3/uL 2.0-7.7 [facility] Work Phone: Neutrophils/100 WBC (Bld) 44.3 % 47-70 [facility] Work Phone: Potassium [Moles/Vol] 4.3 mmol/L 3.5-5.1 [facility] Work Phone: Sodium [Moles/Vol] 141 mmol/L 136-145 [facility] Work Phone: WBC (Bld) [#/Vol] 6.9 10*3/uL 4.4-11.0 [facility] Work Phone: Blood erythrocytes count (nu mber/volume)on 10-28-2021 RBC (Bld) [#/Vol] 3.52 10*6/uL 4.2-5.4 [facility] Work Phone: Blood hemoglobin measurement (mass/volume)on 10-28-2021 Hemoglobin (Bld) [Mass/Vol] 11.4 g/dL 12.0-15.0 [facility] Work Phone: Blood lymphocytes/100 leukoc yteson 10-28-2021 Lymphocytes/100 WBC (Bld) 36.7 % 19-41 [facility] Work Phone: Blood monocytes/100 leukocyt eson 10-28-2021 Monocytes/100 WBC (Bld) 11.3 % 0-10 [facility] Work Phone: Blood platelet mean volumeon 10-28-2021 Platelet mean volume (Bld) [Entitic vol] 10.1 fL 6.2-12.0 [facility] Work Phone: Determination of erythrocyte mean corpuscular volume (MCV)on 10-28-2021 MCV (RBC) [Entitic vol] 105.7 fL 81-99 [facility] Work Phone: Hematocrit Auto (Bld) [Volum e fraction]on 10-28-2021 Hematocrit (Bld) [Volume fraction] 37.2 % 37-47 [facility] Work Phone: Laboratory - Chemistry and C hemistry - challengeon 10-28-2021 CO2 [Moles/Vol] 30.0 mmol/L 21.0-32.0 [facility] Work Phone: Urea nitrogen/Creatinine [Mass ratio] 15.8 mg/mg 10-20 [facility] Work Phone: Laboratory - Hematology and Cell countson 10-28-2021 Erythrocyte distribution width (RBC) [Entitic vol] 51.7 fL 35.1-43.9 [facility] Work Phone: Erythrocyte distribution width (RBC) [Ratio] 13.6 % 11.6-14.6 [facility] Work Phone: Immature granulocytes/100 WBC (Bld) 0.400 % 0.0-0.9 [facility] Work Phone: Comment on above: IG% - Immature Granu locytes (promyelocytes, myelocytes and metamyelocytes) > 1% indicates that a LEFT SHIFT is Present. MCH (RBC) [Entitic mass] 32.4 pg 27.0-32.0 [facility] Work Phone: Nucleated RBC/100 WBC (Bld) [Ratio] 0 % 0-5 [facility] Work Phone: MCHC Auto (RBC) [Mass/Vol]on 10-28-2021 MCHC (RBC) [Mass/Vol] 30.6 g/dL 32-36 [facility] Work Phone: No Panel Informationon 10-28 Estimated GFR (MDRD) Amer 107 mL/min >60 [facility] Work Phone: Comment on above: GFR Calc Estimated GFR (MDRD) Non-Af Amer 88 mL/min >60 [facility] Work Phone: Comment on above: Non- GFR Calc Vitamin D 25-Hydroxy 40.3 ng/mL [facility] Work Phone: Comment on above: Vitamin D 25(OH) Sta tus Range Deficiency <20 ng/mL (50nmol/L) Insufficiency 20 - 30 ng/mL (50 - 75 nmol/L) Sufficiency 30 - 100 ng/mL (75 - 250 nmol/L) Toxicity >100 ng/mL (>250 nmol/L) Platelets bldon 10-28-2021 Platelets (Bld) [#/Vol] 307 10*3/uL 150-450 [facility] Work Phone: Serum or plasma calcium moriah urement (mass/volume)on 10-28-2021 Calcium [Mass/Vol] 8.7 mg/dL 8.5-10.1 [facility] Work Phone: Serum or plasma creatinine m easurement (mass/volume)on 10-28-2021 Creatinine [Mass/Vol] 0.70 mg/dL 0.55-1.02 [facility] Work Phone: Comment on above: The validity of the calculated GFR & GFRAA in patients over 70 years has not been determined. Clinical correlation is essential. Serum or plasma urea nitroge n measurement (mass/volume)on 10-28-2021 Urea nitrogen [Mass/Vol] 11 mg/dL 7-18 [facility] Work Phone: Thin prep Papanicolaou smear with manual screeningon 10-28-2021 Thin prep Papanicolaou smear with manual screening 5 5-15 [facility] Work Phone: Absolute lymphocyte counton 10-21-2021 Lymphocytes Auto (Unsp spec) [#/Vol] 3.09 10*3/uL 0.83-4.51 [facility] Work Phone: Basophil percentageon 2021 Basophils/100 WBC (Bld) 0.6 % 0-1 [facility] Work Phone: Chloride [Moles/Vol] 110 mmol/L 98-107 [facility] Work Phone: Eosinophils/100 WBC (Bld) 3.2 % 0-5 [facility] Work Phone: Glucose [Mass/Vol] 78 mg/dL 74-106 [facility] Work Phone: Neutrophils (Bld) [#/Vol] 3.7 10*3/uL 2.0-7.7 [facility] Work Phone: Neutrophils/100 WBC (Bld) 47.3 % 47-70 [facility] Work Phone: Potassium [Moles/Vol] 4.0 mmol/L 3.5-5.1 Christopher [facility] Work Phone: Sodium [Moles/Vol] 141 mmol/L 136-145 [facility] Work Phone: WBC (Bld) [#/Vol] 7.9 10*3/uL 4.4-11.[address] [facility] Work Phone: Blood erythrocytes count (nu mber/volume)on 10-21-2021 RBC (Bld) [#/Vol] 3.45 10*6/uL 4.2-5.4 [facility] Work Phone: Blood hemoglobin measurement (mass/volume)on 10-21-2021 Hemoglobin (Bld) [Mass/Vol] 11.3 g/dL 12.0-15.0 [facility] Work Phone: Blood lymphocytes/100 leukoc yteson 10-21-2021 Lymphocytes/100 WBC (Bld) 39.3 % 19-41 [facility] Work Phone: Blood monocytes/100 leukocyt eson 10-21-2021 Monocytes/100 WBC (Bld) 9.0 % 0-10 [facility] Work Phone: Blood platelet mean volumeon 10-21-2021 Platelet mean volume (Bld) [Entitic vol] 9.9 fL 6.2-12.0 [facility] Work Phone: Determination of erythrocyte mean corpuscular volume (MCV)on 10-21-2021 MCV (RBC) [Entitic vol] 105.8 fL 81-99 [facility] Work Phone: Hematocrit Auto (Bld) [Volum e fraction]on 10-21-2021 Hematocrit (Bld) [Volume fraction] 36.5 % 37-47 [facility] Work Phone: Laboratory - Chemistry and C hemistry - challengeon 10-21-2021 CO2 [Moles/Vol] 29.0 mmol/L 21.0-32.0 [facility] Work Phone: Urea nitrogen/Creatinine [Mass ratio] 15.5 mg/mg 10-20 [facility] Work Phone: Laboratory - Hematology and Cell countson 10-21-2021 Erythrocyte distribution width (RBC) [Entitic vol] 50.2 fL 35.1-43.9 [facility] Work Phone: Erythrocyte distribution width (RBC) [Ratio] 13.1 % 11.6-14.6 [facility] Work Phone: Immature granulocytes/100 WBC (Bld) 0.600 % 0.0-0.9 [facility] Work Phone: Comment on above: IG% - Immature Granu locytes (promyelocytes, myelocytes and metamyelocytes) > 1% indicates that a LEFT SHIFT is Present. MCH (RBC) [Entitic mass] 32.8 pg 27.0-32.0 [facility] Work Phone: Nucleated RBC/100 WBC (Bld) [Ratio] 0 % 0-5 [facility] Work Phone: MCHC Auto (RBC) [Mass/Vol]on 10-21-2021 MCHC (RBC) [Mass/Vol] 31.0 g/dL 32-36 [facility] Work Phone: No Panel Informationon 10-21 Estimated GFR (MDRD) Amer 105 mL/min >60 [facility] Work Phone: Comment on above: GFR Calc Estimated GFR (MDRD) Non-Af Amer 87 mL/min >60 [facility] Work Phone: Comment on above: Non- GFR Calc Platelets bldon 10-21-2021 Platelets (Bld) [#/Vol] 314 10*3/uL 150-450 [facility] Work Phone: Serum or plasma calcium moriah urement (mass/volume)on 10-21-2021 Calcium [Mass/Vol] 8.5 mg/dL 8.5-10.1 [facility] Work Phone: Serum or plasma creatinine m easurement (mass/volume)on 10-21-2021 Creatinine [Mass/Vol] 0.71 mg/dL 0.55-1.02 [facility] Work Phone: Comment on above: The validity of the calculated GFR & GFRAA in patients over 70 years has not been determined. Clinical correlation is essential. Serum or plasma urea nitroge n measurement (mass/volume)on 10-21-2021 Urea nitrogen [Mass/Vol] 11 mg/dL 7-18 [facility] Work Phone: Thin prep Papanicolaou smear with manual screeningon 10-21-2021 Thin prep Papanicolaou smear with manual screening 2 5-15 [facility] Work Phone: Laboratory - Chemistry and C hemistry - challengeon 10-19-2021 Cobalamin (Vitamin B12) [Mass/Vol] 1620 pg/mL 211-911 [facility] Work Phone: No Panel Informationon 10-19 Thyroid Stimulating Hormone (TSH) 2.06 uIU/mL 0.358-3.74 [facility] Work Phone: Serum or plasma lamotrigine measurement (mass/volume)on 10-19-2021 lamoTRIgine [Mass/Vol] 3.2 ug/mL 2.0-20.0 [facility] Work Phone: Comment on above: Detection Limit = 1. 0Performed at: - [facility] [id number] Director: Marino Mckeon MD, Phone: [phone] Whole blood hemoglobin A1c/t otal hemoglobin ratio (mass fraction)on 10-19-2021 HbA1c (Bld) [Mass fraction] 4.7 % 3.8-5.6 [facility] Work Phone: Comment on above: Normal < 5.7 % Predi abetic 5.7 - 6.4 % Diabetic >or= 6.5 % Please note range changes. Absolute lymphocyte counton 10-14-2021 Lymphocytes Auto (Unsp spec) [#/Vol] 2.95 10*3/uL 0.83-4.51 [facility] Work Phone: Basophil percentageon 2021 Basophils/100 WBC (Bld) 0.6 % 0-1 [facility] Work Phone: Chloride [Moles/Vol] 104 mmol/L 98-107 [facility] Work Phone: Eosinophils/100 WBC (Bld) 3.8 % 0-5 [facility] Work Phone: Glucose [Mass/Vol] 75 mg/dL 74-106 [facility] Work Phone: Neutrophils (Bld) [#/Vol] 3.1 10*3/uL 2.0-7.7 [facility] Work Phone: Neutrophils/100 WBC (Bld) 44.6 % 47-70 [facility] Work Phone: Potassium [Moles/Vol] 3.8 mmol/L 3.5-5.1 [facility] Work Phone: Comment on above: Slight Hemolysis, Re sult may be falsely increased. Sodium [Moles/Vol] 139 mmol/L 136-145 [facility] Work Phone: WBC (Bld) [#/Vol] 7.1 10*3/uL 4.4-11.0 [facility] Work Phone: Blood erythrocytes count (nu mber/volume)on 10-14-2021 RBC (Bld) [#/Vol] 3.73 10*6/uL 4.2-5.4 [facility] Work Phone: Blood hemoglobin measurement (mass/volume)on 10-14-2021 Hemoglobin (Bld) [Mass/Vol] 12.3 g/dL 12.0-15.0 [facility] Work Phone: Blood lymphocytes/100 leukoc yteson 10-14-2021 Lymphocytes/100 WBC (Bld) 41.8 % 19-41 [facility] Work Phone: Blood monocytes/100 leukocyt eson 10-14-2021 Monocytes/100 WBC (Bld) 8.8 % 0-10 [facility] Work Phone: Blood platelet adequacy dete ction by light microscopyon 10-14-2021 Platelets LM Ql (Bld) ADEQUATE ADEQ [facility] Work Phone: Blood platelet mean volumeon 10-14-2021 Platelet mean volume (Bld) [Entitic vol] 11.0 fL 6.2-12.0 [facility] Work Phone: Determination of erythrocyte mean corpuscular volume (MCV)on 10-14-2021 MCV (RBC) [Entitic vol] 104.3 fL 81-99 [facility] Work Phone: Hematocrit Auto (Bld) [Volum e fraction]on 10-14-2021 Hematocrit (Bld) [Volume fraction] 38.9 % 37-47 [facility] Work Phone: Laboratory - Chemistry and C hemistry - challengeon 10-14-2021 CO2 [Moles/Vol] 33.0 mmol/L 21.0-32.0 [facility] Work Phone: Urea nitrogen/Creatinine [Mass ratio] 9.0 mg/mg 10-20 [facility] Work Phone: Laboratory - Hematology and Cell countson 10-14-2021 Erythrocyte distribution width (RBC) [Entitic vol] 48.7 fL 35.1-43.9 [facility] Work Phone: Erythrocyte distribution width (RBC) [Ratio] 12.8 % 11.6-14.6 [facility] Work Phone: Immature granulocytes/100 WBC (Bld) 0.400 % 0.0-0.9 [facility] Work Phone: Comment on above: IG% - Immature Granu locytes (promyelocytes, myelocytes and metamyelocytes) > 1% indicates that a LEFT SHIFT is Present. MCH (RBC) [Entitic mass] 33.0 pg 27.0-32.0 [facility] Work Phone: Nucleated RBC/100 WBC (Bld) [Ratio] 0 % 0-5 [facility] Work Phone: MCHC Auto (RBC) [Mass/Vol]on 10-14-2021 MCHC (RBC) [Mass/Vol] 31.6 g/dL 32-36 [facility] Work Phone: No Panel Informationon 10-14 Estimated GFR (MDRD) Amer 113 mL/min >60 [facility] Work Phone: Comment on above: GFR Calc Estimated GFR (MDRD) Non-Af Amer 93 mL/min >60 [facility] Work Phone: Comment on above: Non- GFR Calc Platelets bldon 10-14-2021 Platelets (Bld) [#/Vol] See comment 150-450 [facility] Work Phone: Comment on above: Please note: [...] Calcium [Mass/Vol] 9.1 mg/dL 8.5-10.1 [facility] Work Phone: Serum or plasma creatinine m easurement (mass/volume)on 10-14-2021 Creatinine [Mass/Vol] 0.66 mg/dL 0.55-1.02 [facility] Work Phone: Comment on above: The validity of the calculated GFR & GFRAA in patients over 70 years has not been determined. Clinical correlation is essential. Serum or plasma urea nitroge n measurement (mass/volume)on 10-14-2021 Urea nitrogen [Mass/Vol] 6 mg/dL 7-18 [facility] Work Phone: Thin prep Papanicolaou smear with manual screeningon 10-14-2021 Thin prep Papanicolaou smear with manual screening 2 5-15 [facility] Work Phone: Absolute lymphocyte counton 10-07-2021 Lymphocytes Auto (Unsp spec) [#/Vol] 1.85 10*3/uL 0.83-4.51 [facility] Work Phone: Basophil percentageon 2021 Basophil percentage 0 SEEN /hpf 0-5 [facility] Work Phone: Basophils/100 WBC (Bld) 0.4 % 0-1 [facility] Work Phone: Chloride [Moles/Vol] 104 mmol/L 98-107 [facility] Work Phone: Eosinophils/100 WBC (Bld) 3.4 % 0-5 [facility] Work Phone: Glucose [Mass/Vol] 128 mg/dL 74-106 [facility] Work Phone: Comment on above: Fasting Glucose resu lt greater than or equal to 126 mg/dL suggests DIABETES MELLITUS per A.D.A. criteria. Neutrophils (Bld) [#/Vol] 5.1 10*3/uL 2.0-7.7 [facility] Work Phone: Neutrophils/100 WBC (Bld) 63.2 % 47-70 [facility] Work Phone: Potassium [Moles/Vol] 3.6 mmol/L 3.5-5.1 [facility] Work Phone: Sodium [Moles/Vol] 140 mmol/L 136-145 [facility] Work Phone: WBC (Bld) [#/Vol] 8.1 10*3/uL 4.4-11.0 [facility] Work Phone: Bilirubin Test strip Ql (U)o n 10-07-2021 Bilirubin Ql (U) Negative Negative [facility] Work Phone: Blood erythrocytes count (nu mber/volume)on 10-07-2021 RBC (Bld) [#/Vol] 3.47 10*6/uL 4.2-5.4 [facility] Work Phone: Blood hemoglobin measurement (mass/volume)on 10-07-2021 Hemoglobin (Bld) [Mass/Vol] 11.5 g/dL 12.0-15.0 [facility] Work Phone: Blood lymphocytes/100 leukoc yteson 10-07-2021 Lymphocytes/100 WBC (Bld) 22.8 % 19-41 [facility] Work Phone: Blood monocytes/100 leukocyt eson 10-07-2021 Monocytes/100 WBC (Bld) 10.0 % 0-10 [facility] Work Phone: Blood platelet mean volumeon 10-07-2021 Platelet mean volume (Bld) [Entitic vol] 9.8 fL 6.2-12.0 [facility] Work Phone: Determination of erythrocyte mean corpuscular volume (MCV)on 10-07-2021 MCV (RBC) [Entitic vol] 102.6 fL 81-99 [facility] Work Phone: Hematocrit Auto (Bld) [Volum e fraction]on 10-07-2021 Hematocrit (Bld) [Volume fraction] 35.6 % 37-47 [facility] Work Phone: Ketones Test strip Ql (U)on 10-07-2021 Ketones Ql (U) Negative Negative [facility] Work Phone: Laboratory - Chemistry and C hemistry - challengeon 10-07-2021 CO2 [Moles/Vol] 29.0 mmol/L 21.0-32.0 [facility] Work Phone: Urea nitrogen/Creatinine [Mass ratio] 9.5 mg/mg -20 [facility] Work Phone: Laboratory - Hematology and Cell countson 10-07-2021 Erythrocyte distribution width (RBC) [Entitic vol] 48.8 fL 35.1-43.9 [facility] Work Phone: Erythrocyte distribution width (RBC) [Ratio] 12.9 % 11.6-14.6 [facility] Work Phone: Immature granulocytes/100 WBC (Bld) 0.200 % 0.0-0.9 [facility] Work Phone: Comment on above: IG% - Immature Granu locytes (promyelocytes, myelocytes and metamyelocytes) > 1% indicates that a LEFT SHIFT is Present. MCH (RBC) [Entitic mass] 33.1 pg 27.0-32.0 [facility] Work Phone: Nucleated RBC/100 WBC (Bld) [Ratio] 0 % 0-5 [facility] Work Phone: MCHC Auto (RBC) [Mass/Vol]on 10-07-2021 MCHC (RBC) [Mass/Vol] 32.3 g/dL 32-36 [facility] Work Phone: Mucus LM Ql (Urine sed)on Mucus Ql (Urine sed) 0 SEEN /hpf [facility] Work Phone: Nitrite Test strip Ql (U)on 10-07-2021 Nitrite Ql (U) Negative Negative [facility] Work Phone: No Panel Informationon 10-07 Estimated Creatinine Clearance Calc 44.24 ml/min [facility] Work Phone: Estimated GFR (MDRD) Amer 86 mL/min >60 [facility] Work Phone: Comment on above: GFR Calc Estimated GFR (MDRD) Non-Af Amer 71 mL/min >60 [facility] Work Phone: Comment on above: Non- GFR Calc Platelets bldon 10-07-2021 Platelets (Bld) [#/Vol] 219 10*3/uL 150-450 [facility] Work Phone: Protein Test strip Ql (U)on 10-07-2021 Protein Ql (U) Negative Negative [facility] Work Phone: Serum or plasma calcium moriah urement (mass/volume)on 10-07-2021 Calcium [Mass/Vol] 8.6 mg/dL 8.5-10.1 [facility] Work Phone: Serum or plasma creatinine m easurement (mass/volume)on 10-07-2021 Creatinine [Mass/Vol] 0.85 mg/dL 0.55-1.02 [facility] Work Phone: Comment on above: The validity of the calculated GFR & GFRAA in patients over 70 years has not been determined. Clinical correlation is essential. Serum or plasma lamotrigine measurement (mass/volume)on 10-07-2021 lamoTRIgine [Mass/Vol] 3.7 ug/mL 2.0-20.0 [facility] Work Phone: Comment on above: Detection Limit = 1. 0Performed at: [facility] [address] [id number] Director: Marino Mckeon MD, Phone: [phone] Serum or plasma urea nitroge n measurement (mass/volume)on 10-07-2021 Urea nitrogen [Mass/Vol] 8 mg/dL 7-18 [facility] Work Phone: Squamous epithelial cells de tection in urine sediment by light microscopyon 10-07-2021 Epithelial cells.squamous LM Ql (Urine sed) 0 SEEN /hpf 5-10 [facility] Work Phone: Thin prep Papanicolaou smear with manual screeningon 10-07-2021 Thin prep Papanicolaou smear with manual screening 7 5-15 [facility] Work Phone: Urine blood detectionon 09-19-2021 RBC Ql (U) Negative Negative [facility] Work Phone: RBC Ql (U) 0 SEEN /hpf 0-5 [facility] Work Phone: Urine clarityon 10-07-2021 Clarity (U) Clear Clear [facility] Work Phone: Urine color determinationon 10-07-2021 Color (U) Yellow Yellow [facility] Work Phone: Urine glucose detectionon Glucose Ql (U) Normal mg/dl Normal [facility] Work Phone: Urine leukocyte esterase det ection by dipstickon 10-07-2021 Leukocyte esterase Test strip Ql (U) Negative Negative [facility] Work Phone: Urine pHon 10-07-2021 pH (U) 6.0 [pH] 5.0 - 8.0 [facility] Work Phone: Urine sediment bacteria coun t by microscopy (number/high power field)on 10-07-2021 Bacteria LM.HPF (Urine sed) [#/Area] 0 /[HPF] None Seen [facility] Work Phone: Urine specific gravity measu rementon 10-07-2021 Specific gravity (U) [Rel density] 1.010 1.002-1.030 [facility] Work Phone: Urobilinogen Auto test strip Ql (U)on 10-07-2021 Urobilinogen Ql (U) Normal mg/dl Normal [facility] Work Phone: Basophil percentageon 2021 Basophil percentage 25-50 SEEN /hpf 0-5 [facility] Work Phone: Bilirubin Test strip Ql (U)o n 10-05-2021 Bilirubin Ql (U) Negative Negative [facility] Work Phone: Calcium oxalate crystals det ection in urine sediment by light microscopyon 10-05-2021 Calcium oxalate crystals LM Ql (Urine sed) 2+ /hpf [facility] Work Phone: Ketones Test strip Ql (U)on 10-05-2021 Ketones Ql (U) 5 mg/dl Negative [facility] Work Phone: Mucus LM Ql (Urine sed)on Mucus Ql (Urine sed) 0 SEEN /hpf [facility] Work Phone: Nitrite Test strip Ql (U)on 10-05-2021 Nitrite Ql (U) Negative Negative [facility] Work Phone: Protein Test strip Ql (U)on 10-05-2021 Protein Ql (U) 30 mg/dl Negative [facility] Work Phone: Squamous epithelial cells de tection in urine sediment by light microscopyon 10-05-2021 Epithelial cells.squamous LM Ql (Urine sed) 0-5 SEEN /hpf 5-10 [facility] Work Phone: Urine blood detectionon 09-18 RBC Ql (U) 10 /ul Negative [facility] Work Phone: RBC Ql (U) 0-5 SEEN /hpf 0-5 [facility] Work Phone: Urine clarityon 10-05-2021 Clarity (U) Sl Cldy Clear [facility] Work Phone: Urine color determinationon 10-05-2021 Color (U) Yellow Yellow [facility] Work Phone: Urine glucose detectionon Glucose Ql (U) Normal mg/dl Normal [facility] Work Phone: Urine leukocyte esterase det ection by dipstickon 10-05-2021 Leukocyte esterase Test strip Ql (U) 500 /ul Negative [facility] Work Phone: Urine pHon 10-05-2021 pH (U) 5.0 [pH] 5.0 - 8.0 [facility] Work Phone: Urine sediment bacteria coun t by microscopy (number/high power field)on 10-05-2021 Bacteria LM.HPF (Urine sed) [#/Area] 0 /[HPF] None Seen [facility] Work Phone: Urine specific gravity measu rementon 10-05-2021 Specific gravity (U) [Rel density] 1.020 1.002-1.030 [facility] Work Phone: Urobilinogen Auto test strip Ql (U)on 10-05-2021 Urobilinogen Ql (U) Normal mg/dl Normal [facility] Work Phone: Absolute lymphocyte counton 07-29-2021 Lymphocytes Auto (Unsp spec) [#/Vol] 3.13 10*3/uL 0.83-4.51 [facility] Work Phone: Basophil percentageon 2021 Basophils/100 WBC (Bld) 0.8 % 0-1 [facility] Work Phone: Chloride [Moles/Vol] 107 mmol/L 98-107 [facility] Work Phone: Eosinophils/100 WBC (Bld) 5.5 % 0-5 [facility] Work Phone: Glucose [Mass/Vol] 78 mg/dL 74-106 [facility] Work Phone: Neutrophils (Bld) [#/Vol] 2.1 10*3/uL 2.0-7.7 [facility] Work Phone: Neutrophils/100 WBC (Bld) 32.9 % 47-70 [facility] Work Phone: Potassium [Moles/Vol] 4.1 mmol/L 3.5-5.1 [facility] Work Phone: Sodium [Moles/Vol] 143 mmol/L 136-145 [facility] Work Phone: WBC (Bld) [#/Vol] 6.3 10*3/uL 4.4-11.0 [facility] Work Phone: Blood erythrocytes count (nu mber/volume)on 07-29-2021 RBC (Bld) [#/Vol] 3.50 10*6/uL 4.2-5.4 [facility] Work Phone: Blood hemoglobin measurement (mass/volume)on 07-29-2021 Hemoglobin (Bld) [Mass/Vol] 11.1 g/dL 12.0-15.0 [facility] Work Phone: Blood lymphocytes/100 leukoc yteson 07-29-2021 Lymphocytes/100 WBC (Bld) 49.6 % 19-41 [facility] Work Phone: Blood monocytes/100 leukocyt eson 07-29-2021 Monocytes/100 WBC (Bld) 10.9 % 0-10 [facility] Work Phone: Blood platelet mean volumeon 07-29-2021 Platelet mean volume (Bld) [Entitic vol] 9.8 fL 6.2-12.0 [facility] Work Phone: Determination of erythrocyte mean corpuscular volume (MCV)on 07-29-2021 MCV (RBC) [Entitic vol] 102.3 fL 81-99 [facility] Work Phone: Hematocrit Auto (Bld) [Volum e fraction]on 07-29-2021 Hematocrit (Bld) [Volume fraction] 35.8 % 37-47 [facility] Work Phone: Laboratory - Chemistry and C hemistry - challengeon 07-29-2021 CO2 [Moles/Vol] 33.0 mmol/L 21.0-32.0 [facility] Work Phone: Urea nitrogen/Creatinine [Mass ratio] 6.5 mg/mg 10-20 [facility] Work Phone: Laboratory - Hematology and Cell countson 07-29-2021 Erythrocyte distribution width (RBC) [Entitic vol] 44.4 fL 35.1-43.9 [facility] Work Phone: Erythrocyte distribution width (RBC) [Ratio] 11.7 % 11.6-14.6 [facility] Work Phone: Immature granulocytes/100 WBC (Bld) 0.300 % 0.0-0.9 [facility] Work Phone: Comment on above: IG% - Immature Granu locytes (promyelocytes, myelocytes and metamyelocytes) > 1% indicates that a LEFT SHIFT is Present. MCH (RBC) [Entitic mass] 31.7 pg 27.0-32.0 [facility] Work Phone: Nucleated RBC/100 WBC (Bld) [Ratio] 0 % 0-5 [facility] Work Phone: MCHC Auto (RBC) [Mass/Vol]on 07-29-2021 MCHC (RBC) [Mass/Vol] 31.0 g/dL 32-36 [facility] Work Phone: No Panel Informationon 07-29 Estimated GFR (MDRD) Amer 96 mL/min >60 [facility] Work Phone: Comment on above: GFR Calc Estimated GFR (MDRD) Non-Af Amer 79 mL/min >60 [facility] Work Phone: Comment on above: Non- GFR Calc Platelets bldon 07-29-2021 Platelets (Bld) [#/Vol] 261 10*3/uL 150-450 [facility] Work Phone: Serum or plasma calcium moriah urement (mass/volume)on 07-29-2021 Calcium [Mass/Vol] 8.6 mg/dL 8.5-10.1 [facility] Work Phone: Serum or plasma creatinine m easurement (mass/volume)on 07-29-2021 Creatinine [Mass/Vol] 0.77 mg/dL 0.55-1.02 [facility] Work Phone: Comment on above: The validity of the calculated GFR & GFRAA in patients over 70 years has not been determined. Clinical correlation is essential. Serum or plasma urea nitroge n measurement (mass/volume)on 07-29-2021 Urea nitrogen [Mass/Vol] 5 mg/dL 7-18 [facility] Work Phone: Thin prep Papanicolaou smear with manual screeningon 07-29-2021 Thin prep Papanicolaou smear with manual screening 3 5-15 [facility] Work Phone: Whole blood hemoglobin A1c/t otal hemoglobin ratio (mass fraction)on 07-29-2021 HbA1c (Bld) [Mass fraction] 5.0 % 3.8-5.6 [facility] Work Phone: Comment on above: Normal < 5.7 % Predi abetic 5.7 - 6.4 % Diabetic >or= 6.5 % Please note range changes. Basophil percentageon 2021 Bilirubin [Mass/Vol] 0.20 mg/dL 0.20-1.00 [facility] Work Phone: Comment on above: For patients on eltr ombopag therapy, use of Dimension [place] TBIL is not recommended. Cholesterol [Mass/Vol] 139 mg/dL <200 [facility] Work Phone: Comment on above: <200 mg/dL Desirable 200-240 mg/dL Borderline >240 mg/dL High Risk Protein [Mass/Vol] 5.8 g/dL 6.4-8.2 [facility] Work Phone: Triglyceride [Mass/Vol] 91 mg/dL [facility] Work Phone: Comment on above: The drugs N-Acetylcy steine and Metamizole may falsely depress this assay.Serum Triglycerides Reference Interval Normal <150 mg/dL Borderline high 150 - 199 mg/dL High 200 - 499 mg/dL Very High > or = 500 mg/dL Direct bilirubinon 2 Bilirubin.direct [Mass/Vol] mg/dL 0.00-0.30 [facility] Work Phone: Laboratory - Chemistry and C hemistry - challengeon 04-20-2021 ALP [Catalytic activity/Vol] 67 U/L 45-117 [facility] Work Phone: ALT [Catalytic activity/Vol] 15 U/L 13-56 [facility] Work Phone: Globulin (S) [Mass/Vol] 2.9 g/dL 2.2-4.2 [facility] Work Phone: Serum or plasma albumin moriah urement (mass/volume)on 04-20-2021 Albumin [Mass/Vol] 2.9 g/dL 3.2-5.0 [facility] Work Phone: Serum or plasma cholesterol in HDL measurement (mass/volume)on 04-20-2021 Cholesterol in HDL [Mass/Vol] 54 mg/dL [facility] Work Phone: Comment on above: The drugs N-Acetylcy steine and Metamizole may falsely depress this assay. Reference Range HDL <40 mg/dL Low HDL Cholesterol HDL >or= 60 mg/dL High HDL Cholesterol Serum or plasma cholesterol in VLDL measurement (mass/volume)on 04-20-2021 Cholesterol in VLDL [Mass/Vol] 18 mg/dL 5-40 [facility] Work Phone: Serum or plasma low density lipoprotein (LDL) cholesterol measurement (mass/volume)on 04-20-2021 Cholesterol in LDL [Mass/Vol] 67 mg/dL 0-130 [facility] Work Phone: Thin prep Papanicolaou smear with manual screeningon 04-20-2021 Thin prep Papanicolaou smear with manual screening 13 U/L 15-37 [facility] Work Phone: Clinical Summary: [facility]MS[facility] Clinical Summary: Scanned RO S Summaryon 10-24-2018 endocrine ROS [facility] Work Phone: Gastrointestional review of systems, comment Hemorrhoids [facility] Work Phone: genitourinary review of systems, E&M Denies [facility] Work Phone: Lymphocytes (Bld) [#/Vol] Denies [facility] Work Phone: ROS [facility] ROS ENT comment [facility] Work Phone: ROS ENT E&M Complains [facility] Work Phone: ROS gastrointestinal E&M Complains [facility] Work Phone: ROS general E&M Denies [facility] Work Phone: ROS Musculoskeletal comments Muscle Cramps,Muscle Weakness,Pain,Joint Pain,Stiffness,Arthri tis [facility] Work Phone: ROS musculoskeletal E&M Complains C rystal [facility] Work Phone: ROS neurological E&M Denies Alexandra nicolette [facility] Work Phone: ROS Psych comment Memory Loss Aruna l [facility] Work Phone: ROS psychiatric E&M Complains [facility] Work Phone: ROS pulmonary E&M Denies [facility] Work Phone: ROS skin E&M Denies [facility] Work Phone: Office Visit: New - 1st visi t with practice, Rm: 2on 10-24-2018 NEGATED: Highlighted rowMRI (magnetic resonance imaging) history of the Left Hip on 10/10/2018 at [facility] Work Phone: NEGATED: Highlighted rowTobacco smoking status NHIS Tobacco smoking status [facility] Work Phone: NEGATED: Highlighted rowxray history of the Left hip with Pelvis on 09/06/2018 at [facility] Work Phone: Clinical Lists Update: Prelo ad Extendedon 10-20-2018 Tobacco smoking status NHIS Tobacco smoking status [facility] Work Phone: MRI Low Ext Joint w/o Contra st Lefton 10-11-2018 MRI Low Ext Joint w/o Contrast Left Patient Name: CANDI AGUILAR MRI Exam Date/Time 10/10/2018 14:30:01 EDT Exam MRI Low Ext Joint w/o Contrast Left Ordering Physician DO TATUM EUGENE F. Accession Number [id number] CPT4 Codes 48564 () Reason For Exam left hip, eval [...] is otherwise unremarkable on the provided larger [id number] images. Small endplate osteophytes of the spine [...] Transcribed Date and Time: 10/11/2018 8:23 Normal [facility] CR Knee Complete 4+ Views Bi lateralon 09-07-2018 CR Knee Complete 4+ Views Bilateral Patient Name: CANDI AGUILAR Diagnostic Radiology Exam Date/Time 09/06/2018 11:56:00 EDT Exam CR Knee Complete 4+ Views Bilateral Ordering Physician DO TATUM EUGENE F. Accession Number [id number] CPT4 Codes 29859 () Reason For Exam primary osteoarthritis of [...] R Transcribed Date and Time: 09/07/2018 2:13 Normal [facility] CR Hip w/ Pelvis 2 or 3 View s Lefton 09-06-2018 CR Hip w/ Pelvis 2 or 3 Views Left Patient Name: CANDI AGUILAR Diagnostic Radiology Exam Date/Time 09/06/2018 11:56:00 EDT Exam CR Hip w/ Pelvis 2 or 3 Views Left n Ordering Physician DO TATUM EUGENE F. Accession Number [id number] CPT4 Codes 44779 () Reason For Exam left hip pain [...] Transcribed Date and Time: 09/06/2018 4:24 Normal [facility] Culture, urine Bacteria identified Cx Nom (U) Positive [facility] Work Phone: No Panel Information [facility] Vital Signs Date Time Vital Sign Value Performing Clinician Facility 11-05-2024 14:43-0400 Body height 152.[address] Claudia Anderson MD [facility] 11-05-2024 14:43-0400 Body mass index (BMI) [Ratio] 20.7 kg/m2 Dr. Claudia Anderson MD [facility] 11-05-2024 14:43-0400 Body temperature 97.7 [degF] Dr. Claudia Anderson MD [facility] 11-05-2024 14:43-0400 Body weight 48.[address] Claudia Anderson MD [facility] 11-05-2024 14:43-0400 Diastolic blood pressure 78 mm[Hg] Dr. Claudia Anderson MD [facility] 11-05-2024 14:43-0400 Heart rate 75 /min Dr. Claudia Anderson MD [facility] 11-05-2024 14:43-0400 Respiratory rate 16 /min Dr. Claudia Anderson MD [facility] 11-05-2024 14:43-0400 SaO2% (BldA) [Mass fraction] 96 % Dr. Claudia Anderson MD [facility] 11-05-2024 14:43-0400 Systolic blood pressure 145 mm[Hg] Dr. Claudia Anderson MD [facility] 08-06-2024 13:56-0400 Body height 152.[address] Claudia Anderson MD [facility] 08-06-2024 13:56-0400 Body mass index (BMI) [Ratio] 20.7 kg/m2 Dr. Claudia Anderson MD [facility] 08-06-2024 13:56-0400 Body temperature 97.3 [degF] Dr. Claudia Anderson MD [facility] 08-06-2024 13:56-0400 Body weight 48.[address] Claudia Anderson MD [facility] 08-06-2024 13:56-0400 Diastolic blood pressure 76 mm[Hg] Dr. Claudia Anderson MD [facility] 08-06-2024 13:56-0400 Heart rate 60 /min Dr. Claudia Anderson MD [facility] 08-06-2024 13:56-0400 Respiratory rate 15 /min Dr. Claudia Anderson MD [facility] 08-06-2024 13:56-0400 SaO2% (BldA) [Mass fraction] 99 % Dr. Claudia Anderson MD [facility] 08-06-2024 13:56-0400 Systolic blood pressure 127 mm[Hg] Dr. Claudia Anderson MD [facility] 05-07-2024 14:19-0500 Body mass index (BMI) [Ratio] 21.4 kg/m2 Dr. Claudia Anderson MD [facility] 05-07-2024 14:19-0500 Body temperature 97.8 [degF] Dr. Claudia Anderson MD [facility] 05-07-2024 14:19-0500 Body weight 49.[address] Claudia Anderson MD [facility] 05-07-2024 14:19-0500 Diastolic blood pressure 68 mm[Hg] Dr. Claudia Anderson MD [facility] 05-07-2024 14:19-0500 Heart rate 70 /min Dr. Claudia Anderosn MD [facility] 05-07-2024 14:19-0500 Respiratory rate 16 /min Dr. Claudia Anderson MD [facility] 05-07-2024 14:19-0500 SaO2% (BldA) [Mass fraction] 96 % Dr. Claudai Anderson MD [facility] 05-07-2024 14:19-0500 Systolic blood pressure 120 mm[Hg] Dr. Claudia Anderson MD [facility] 06-28-2023 15:43-0400 Body mass index (BMI) [Ratio] 21.1 kg/m2 Dr. Claudia Anderson [facility] 06-28-2023 15:43-0400 Body temperature 97.7 [degF] [facility]-28-2023 15:43-0400 Body weight 49.[address] Claudia Anderson [facility] 06-28-2023 15:43-0400 Diastolic blood pressure 74 mm[Hg[facility]-28-2023 15:43-0400 Heart rate 63 /min Dr. Claudia Anderson [facility] 06-28-2023 15:43-0400 Respiratory rate 18 /min Dr. Claudia Anderson [facility] 06-28-2023 15:43-0400 SaO2% (BldA) [Mass fraction] 98 % Dr. Claudia Anderson [facility] 06-28-2023 15:43-0400 Systolic blood pressure 120 mm[Hg] [facility] 06-09-2023 14:00-0400 Diastolic blood pressure 56 mm[Hg] [facility] 06-09-2023 14:00-0400 Heart rate 56 /[facility]-09-2023 14:00-0400 Systolic blood pressure 137 mm[Hg] Dr. Claudia Anderson [facility] 06-09-2023 01:09-0400 Body temperature 97.6 [degF] Dr. Claudia Anderson [facility] 06-09-2023 01:09-0400 Respiratory rate 16 /[facility] 06-09-2023 01:09-0400 SaO2% (BldA) [Mass fraction] 98 % [facility] 06-08-2023 23:04-0400 Body height 152.[address] [facility] 06-08-2023 23:04-0400 Body mass index (BMI) [Ratio] 22.6 kg/m2 [facility] 06-08-2023 23:04-0400 Body weight 52.[address] [facility] 02-28-2023 14:54-0500 Body height 152.[address] Addi Tatum Work Phone: [facility] 02-28-2023 14:54-0500 Body mass index (BMI) [Ratio] 21.2 kg/m2 Dr. Addi Tatum Work Phone: [facility] 02-28-2023 14:54-0500 Body temperature 97.8 [degF] Dr. Addi Tatum Work Phone: [facility] 02-28-2023 14:54-0500 Body weight 49.[address] Addi Tatum Work Phone: [facility] 02-28-2023 14:54-0500 Diastolic blood pressure 90 mm[Hg] Dr. Addi Tatum Work Phone: [facility] 02-28-2023 14:54-0500 Heart rate 55 /min Dr. Addi Tatum Work Phone: [facility] 02-28-2023 14:54-0500 Respiratory rate 17 /min Dr. Addi Tatum Work Phone: [facility] 02-28-2023 14:54-0500 SaO2% (BldA) [Mass fraction] 97 % Dr. Addi Tatum Work Phone: [facility] 02-28-2023 14:54-0500 Systolic blood pressure 120 mm[Hg] Dr. Addi Tatum Work Phone: [facility] 12-15-2022 13:00-0400 Heart rate 78 /min Dr. Claudia Anderson [facility] 12-15-2022 13:00-0400 Respiratory rate 15 /min Dr. Claudia Anderson [facility] 12-15-2022 13:00-0400 SaO2% (BldA) [Mass fraction] 93 % Dr. Claudia Anderson [facility] 12-15-2022 11:50-0400 Diastolic blood pressure 57 mm[Hg] Dr. Claudia Anderson [facility] 12-15-2022 11:50-0400 Systolic blood pressure 123 mm[Hg] Dr. Claudia Anderson [facility] 12-15-2022 09:39-0400 Body height 152.[address] Claudia Anderson [facility] 12-15-2022 09:39-0400 Body mass index (BMI) [Ratio] 22.7 kg/m2 [facility] 12-15-2022 09:39-0400 Body temperature 98.8 [degF] Dr. Claudia Anderson [facility] 12-15-2022 09:39-0400 Body weight 52.[address] Claudia Anderson [facility] 12-02-2022 11:02-0400 Body height 152.[address] Claudia Anderson [facility] 12-02-2022 11:02-0400 Body mass index (BMI) [Ratio] 21.4 kg/m2 [facility] 12-02-2022 11:02-0400 Body weight 49.[address] [facility] 11-17-2022 11:47-0400 Body height 152.[address] [facility] 11-17-2022 11:47-0400 Body mass index (BMI) [Ratio] 21.9 kg/m2 Dr. Claudia Anderson [facility] 11-17-2022 11:47-0400 Body temperature 97.8 [degF] Dr. Claudia Anderson [facility] 11-17-2022 11:47-0400 Body weight 50.[address] [facility] 11-17-2022 11:47-0400 Diastolic blood pressure 90 mm[Hg] Dr. Claudia Anderson [facility] 11-17-2022 11:47-0400 Heart rate 65 /min Dr. Claudia Anderson [facility] 11-17-2022 11:47-0400 Respiratory rate 16 /min Dr. Claudia Anderson [facility] 11-17-2022 11:47-0400 SaO2% (BldA) [Mass fraction] 95 % [facility] 11-17-2022 11:47-0400 Systolic blood pressure 130 mm[Hg] Dr. Claudia Anderson [facility] 11-09-2022 08:36-0400 Body mass index (BMI) [Ratio] 21.3 kg/m2 [facility] 11-09-2022 08:36-0400 Body temperature 97.8 [degF] [facility] 11-09-2022 08:36-0400 Body weight 49.[address] [facility] 11-09-2022 08:36-0400 Diastolic blood pressure 82 mm[Hg] [facility] 11-09-2022 08:36-0400 Heart rate 73 /min [facility] 11-09-2022 08:36-0400 Respiratory rate 16 /min [facility]. [facility] 11-09-2022 08:36-0400 SaO2% (BldA) [Mass fraction] 96 % [facility] 11-09-2022 08:36-0400 Systolic blood pressure 106 mm[Hg] [facility] 09-14-2022 14:35-0400 Body temperature 96.9 [degF] Dr. Medardo Mayo Work Phone: [facility] 09-14-2022 14:35-0400 Diastolic blood pressure 61 mm[Hg] Dr. Medardo Mayo Work Phone: [facility] 09-14-2022 14:35-0400 Heart rate 60 /min Dr. Medardo Mayo Work Phone: [facility] 09-14-2022 14:35-0400 Respiratory rate 16 /min Dr. Medardo Mayo Work Phone: 7(131)127-843355 [place] [address] 09-14-2022 14:35-0400 SaO2% (BldA) [Mass fraction] 100 % Dr. Medardo Mayo Work Phone: 8(492)178-917938 [place] [address] 09-14-2022 14:35-0400 Systolic blood pressure 142 mm[Hg] Dr. Medardo Mayo Work Phone: 1(600)947-501438 [place] [address] 09-14-2022 10:13-0400 Body height 152.[address] Medardo Mayo Work Phone: 0(265)479-955538 [place] [address] 09-14-2022 10:13-0400 Body mass index (BMI) [Ratio] 21.4 kg/m2 Dr. Medardo Mayo Work Phone: 7(897)504-541338 [place] [address] 09-14-2022 10:13-0400 Body weight 49.[address] Medardo Mayo Work Phone: 3(856)048-694038 [place] [address] 09-06-2022 08:52-0400 Body mass index (BMI) [Ratio] 21.4 kg/m2 Dr. Medardo Mayo Work Phone: 7(040)972-063138 [place] [address] 09-06-2022 08:52-0400 Body temperature 96.8 [degF] Dr. Medardo Mayo Work Phone: 4(728)777-917138 [place] [address] 09-06-2022 08:52-0400 Body weight 49.[address] Medardo Mayo Work Phone: 8(284)076-172438 [place] [address] 09-06-2022 08:52-0400 Diastolic blood pressure 64 mm[Hg] Dr. Medardo Mayo Work Phone: 8(534)129-413038 [place] [address] 09-06-2022 08:52-0400 Heart rate 71 /min Dr. Medardo Mayo Work Phone: 1(596)657-545938 [place] [address] 09-06-2022 08:52-0400 Respiratory rate 16 /min Dr. Medardo Mayo Work Phone: 9(865)763-810438 [place] [address] 09-06-2022 08:52-0400 SaO2% (BldA) [Mass fraction] 98 % Dr. Medardo Mayo Work Phone: 6(115)856-573038 [place] [address] 09-06-2022 08:52-0400 Systolic blood pressure 96 mm[Hg] Dr. Medardo Mayo Work Phone: 3(773)433-826538 [place] [address] 08-27-2022 21:47-0400 Body height 152.[address] Medardo Mayo Work Phone: 6(795)380-673338 [place] [address] 08-27-2022 21:47-0400 Body mass index (BMI) [Ratio] 22 kg/m2 Dr. Medardo Mayo Work Phone: 2(460)935-749438 [place] [address] 08-27-2022 21:47-0400 Body temperature 97.1 [degF] Dr. Medardo Mayo Work Phone: 4(315)521-226138 [place] [address] 08-27-2022 21:47-0400 Body weight 51.[address] Medardo Mayo Work Phone: 6(231)437-477838 [place] [address] 08-27-2022 21:47-0400 Diastolic blood pressure 57 mm[Hg] Dr. Medardo Mayo Work Phone: 0(204)906-023038 [place] [address] 08-27-2022 21:47-0400 Heart rate 58 /min Dr. Medardo Mayo Work Phone: 7(130)194-945738 [place] [address] 08-27-2022 21:47-0400 Respiratory rate 18 /min Dr. Medardo Mayo Work Phone: 1(262)962-251838 [place] [address] 08-27-2022 21:47-0400 SaO2% (BldA) [Mass fraction] 99 % Dr. Medardo Mayo Work Phone: 9(246)633-848438 [place] [address] 08-27-2022 21:47-0400 Systolic blood pressure 124 mm[Hg] Dr. Medardo Mayo Work Phone: 3(165)282-907838 [place] [address] 07-01-2022 09:58-0400 Body height 152.[address] Claudia Anderson [facility] 07-01-2022 09:58-0400 Body mass index (BMI) [Ratio] 19.8 kg/m2 Dr. Claudia Anderson [facility] 07-01-2022 09:58-0400 Body temperature 97.8 [degF] Dr. Claudia Anderson [facility] 07-01-2022 09:58-0400 Body weight 45.[address] Claudia Anderson [facility] 07-01-2022 09:58-0400 Diastolic blood pressure 80 mm[Hg] Dr. Claudia Anderson [facility] 07-01-2022 09:58-0400 Heart rate 71 /min Dr. Claudia Anderson [facility] 07-01-2022 09:58-0400 Respiratory rate 16 /[facility] 07-01-2022 09:58-0400 SaO2% (BldA) [Mass fraction] 99 % [facility] 07-01-2022 09:58-0400 Systolic blood pressure 118 mm[Hg] [facility] 04-16-2022 03:26-0500 SaO2% (BldA) [Mass fraction] 97 % [facility] 04-15-2022 21:44-0500 Body height 152.[address] [facility] 04-15-2022 21:44-0500 Body mass index (BMI) [Ratio] 20.7 kg/m2 [facility] 04-15-2022 21:44-0500 Body temperature 97.5 [degF] [facility] 04-15-2022 21:44-0500 Body weight 48.[address] [facility] 04-15-2022 21:44-0500 Diastolic blood pressure 68 mm[Hg] [facility] 04-15-2022 21:44-0500 Heart rate 63 /min [facility] 04-15-2022 21:44-0500 Respiratory rate 18 /min [facility] 04-15-2022 21:44-0500 Systolic blood pressure 145 mm[Hg] [facility] 02-14-2022 01:29-0500 Heart rate 53 /min [facility] 02-14-2022 01:29-0500 Respiratory rate 22 /min [facility] 02-14-2022 00:14-0500 SaO2% (BldA) [Mass fraction] 97 % [facility] 02-13-2022 22:11-0500 Body height 152.[address] [facility] Work Phone: 02-13-2022 22:11-0500 Body mass index (BMI) [Ratio] 20.2 kg/m2 [facility] 02-13-2022 22:11-0500 Body temperature 97.6 [degF] [facility] 02-13-2022 22:11-0500 Body weight 47.[address] [facility] 02-13-2022 22:11-0500 Diastolic blood pressure 64 mm[Hg] [facility] 02-13-2022 22:11-0500 Systolic blood pressure 149 mm[Hg] [facility] 02-01-2022 01:37-0500 Diastolic blood pressure 70 mm[Hg] [facility] 02-01-2022 01:37-0500 Heart rate 58 /min [facility] 02-01-2022 01:37-0500 Respiratory rate 16 /min [facility] 02-01-2022 01:37-0500 SaO2% (BldA) [Mass fraction] 98 % [facility] 02-01-2022 01:37-0500 Systolic blood pressure 134 mm[Hg] [facility] 01-31-2022 23:38-0500 Body height 152.[address] [facility] Work Phone: 01-31-2022 23:38-0500 Body mass index (BMI) [Ratio] 20.6 kg/m2 [facility] 01-31-2022 23:38-0500 Body temperature 97.5 [degF] [facility] 01-31-2022 23:38-0500 Body weight 47.[address] [facility] 01-18-2022 21:11-0400 Body temperature 97.8 [degF] [facility] 01-18-2022 21:11-0400 Diastolic blood pressure 78 mm[Hg] [facility] 01-18-2022 21:11-0400 Heart rate 78 /min [facility] 01-18-2022 21:11-0400 Respiratory rate 16 /min [facility] 01-18-2022 21:11-0400 SaO2% (BldA) [Mass fraction] 99 % [facility] 01-18-2022 21:11-0400 Systolic blood pressure 118 mm[Hg] [facility] 01-18-2022 19:14-0400 Body height 152.[address] [facility] Work Phone: 01-18-2022 19:14-0400 Body mass index (BMI) [Ratio] 21.3 kg/m2 [facility] 01-18-2022 19:14-0400 Body weight 49.[address] [facility] 11-22-2021 00:21-0400 Diastolic blood pressure 52 mm[Hg] [facility] Work Phone: 11-22-2021 00:21-0400 Heart rate 53 /min [facility] Work Phone: 11-22-2021 00:21-0400 Respiratory rate 16 /min [facility] Work Phone: 11-22-2021 00:21-0400 SaO2% (BldA) [Mass fraction] 97 % [facility] Work Phone: 11-22-2021 00:21-0400 Systolic blood pressure 104 mm[Hg] [facility] Work Phone: 11-21-2021 22:29-0400 Body height 152.[address] [facility] Work Phone: 11-21-2021 22:29-0400 Body mass index (BMI) [Ratio] 22.1 kg/m2 [facility] Work Phone: 11-21-2021 22:29-0400 Body temperature 97 [degF] [facility] Work Phone: 11-21-2021 22:29-0400 Body weight 51.[address] [facility] Work Phone: 10-10-2021 06:36-0400 Diastolic blood pressure 60 mm[Hg] [facility] Work Phone: 10-10-2021 06:36-0400 Heart rate 68 /min [facility] Work Phone: 10-10-2021 06:36-0400 Respiratory rate 16 /min [facility] Work Phone: 10-10-2021 06:36-0400 SaO2% (BldA) [Mass fraction] 98 % [facility] Work Phone: 10-10-2021 06:36-0400 Systolic blood pressure 98 mm[Hg] [facility] Work Phone: 10-10-2021 01:04-0400 Body height 162.[address] [facility] Work Phone: 10-10-2021 01:04-0400 Body mass index (BMI) [Ratio] 19 kg/m2 [facility] Work Phone: 10-10-2021 01:04-0400 Body temperature 97.2 [degF] [facility] Work Phone: 10-10-2021 01:04-0400 Body weight 50.[address] [facility] Work Phone: 10-07-2021 23:16-0400 Diastolic blood pressure 71 mm[Hg] [facility] Work Phone: 10-07-2021 23:16-0400 Heart rate 78 /min [facility] Work Phone: 10-07-2021 23:16-0400 Respiratory rate 16 /min [facility] Work Phone: 10-07-2021 23:16-0400 SaO2% (BldA) [Mass fraction] 98 % [facility] Work Phone: 10-07-2021 23:16-0400 Systolic blood pressure 124 mm[Hg] [facility] Work Phone: 10-07-2021 18:47-0400 Body height 152.[address] [facility] Work Phone: 10-07-2021 18:47-0400 Body mass index (BMI) [Ratio] 21.2 kg/m2 [facility] Work Phone: 10-07-2021 18:47-0400 Body temperature 98.3 [degF] [facility] Work Phone: 10-07-2021 18:47-0400 Body weight 49.[address] [facility] Work Phone: NEGATED: Highlighted [id number] 13:06-0400 BMI (Body Mass Index) 19.4 kg/m2 Hina Esparza [employer] [facility] Work Phone: NEGATED: Highlighted [id number] 13:06-0400 Body weight 44.91 kg Hina Esparza [facility] Work Phone: NEGATED: Highlighted [id number] 13:06-0400 Body weight 45 kg Hina Esparza [facility] Work Phone: NEGATED: Highlighted [id number] 13:06-0400 BP Diastolic 76 mm[Hg] Hina Esparza [employer]IC AUTOGRAPHER [facility] Work Phone: NEGATED: Highlighted [id number] 13:06-0400 BP Systolic 146 mm[Hg] Hina Esparza [facility] Work Phone: NEGATED: Highlighted [id number] 13:06-0400 BP Systolic 129 mm[Hg] Hina Esparza MUSIC AUTOGRAPHER [facility] Work Phone: NEGATED: Highlighted [id number] 13:06-0400 Height 152.4 cm Hina Vilma MUSIC AUTOGRAPHER [facility] Work Phone: NEGATED: Highlighted [id number] Height 152 cm Hina Esparza LPN [facility] Work Phone: NEGATED: Highlighted [id number] 13:06-0400 Pulse (Heart Rate) 60 /min Hina Esparza LPN [facility] Work Phone: Encounters Encounter Date Encounter Type Care Provider Facility Start: 11-21-2024 End: 11-21-[address] Claudia Anderson MD -[facility] Start: 11-21-2024 End: 11-21-[address] Kendra Bran MD -[facility] Work Phone: Start: 11-21-2024 End: 11-21-[address] [facility] Facility:[facility] Start: 11-05-2024 End: 11-05-[address] Medardo Mayo MD -[facility] Work Phone: Start: 11-05-2024 End: 11-05-[address] Claudia Anderson MD [facility] Start: 10-25-2024 ambulatory True DYSON Facil ity:[facility] Start: 10-25-[address] True Holguin MD -[facility] Start: 09-03-2024 End: 09-03-[address] Claudia Anderson MD [facility] Work Phone: Start: 09-03-2024 End: 09-03-[address] Kendra Bran MD -Radiology [facility] Work Phone: Start: 09-03-2024 End: 09-03-2024 [facility] Facility[facility] Start: 08-27-2024 ambulatory Claudia DYSON Facili ty:[facility] Start: 08-27-[address] Claudia Anderson MD -[facility] Start: 08-22-2024 End: 08-22-[address] Claudia Anderson MD [facility] Work Phone: Start: 08-22-2024 End: 08-22-[address] Medardo Mayo MD -MRI - [facility] Work Phone: Start: 08-22-2024 End: 08-22-2024 ambulatory Medardo Mayo Facility:[facility] Start: 08-15-2024 ambulatory True DYSON [facility] ity:[facility] Start: 08-15-[address] True Holguin MD -[facility] Start: 08-06-2024 End: 08-06-[address] Medardo Mayo MD -[facility] Work Phone: Start: 08-06-2024 End: 08-06-[address] Claudia Anderson MD [facility] Work Phone: Start: 08-06-2024 End: 08-06-[address] Claudia Anderson MD [facility] Work Phone: Start: 08-06-2024 End: 08-06-[address] Kendra Bran MD -Radiology [facility] Work Phone: Start: 08-06-2024 End: 08-06-2024 ambulatory Kendra Bran Facility:[facility] Start: 07-12-2024 End: 07-12-[address] True Holguin MD -[facility] Start: 07-12-[address] True Holguin MD -[facility] Start: 07-12-2024 End: 07-12-2024 ambulatory True DYSON Facility:[facility] Start: 06-25-2024 ambulatory Claudia Anderson Facility:[facility] Start: 06-25-[address] Claudia Anderson MD -[facility] Start: 05-07-2024 End: 05-07-[address] Medardo Mayo MD -[facility] Work Phone: Start: 05-07-2024 End: 05-07-2024 ambulatory Medardo Mayo Facility:[facility] Start: 04-13-2024 ambulatory Claudia Anderson Facility:[facility] Start: 04-13-[address] Claudia Anderson MD -[facility] Start: 02-17-2024 ambulatory Claudia Gudla Facility:[facility] Start: 01-25-2024 End: 01-25-2024 ambulatory Claudia Jaddla [facility] Start: 01-17-2024 End: 01-17-2024 ambulatory Claudia Gudla Facility:[facility] Start: 01-12-2024 End: 01-12-2024 ambulatory Claudia Anderson OLS Facility:[facility] Start: 01-04-2024 End: 01-04-2024 ambulatory True [facility] Facility:[facility] Start: 07-18-[address] Claudia Anderson [facility] Start: 07-13-[address] Claudia Anderson [facility] Start: 07-11-2023 End: 07-11-[address] Claudia Anderson [facility] Work Phone: Start: 06-28-2023 End: 06-28-[address] Claudia Anderson [facility] Work Phone: Start: 06-14-2023 End: 06-14-[address] Claudia Anderson [facility] Work Phone: Start: 06-14-2023 End: 06-14-[address] Claudia Anderson [facility]urology Work Phone: Start: 06-13-2023 End: 06-13-[address] Claudia Anderson [facility] Work Phone: Start: 06-13-2023 End: 06-13-[address] Claudia Anderson [facility] Start: 06-13-[address] Claudia Anderson [facility] Start: 06-08-2023 End: 06-09-2023 Emergency department patient visit Dr. Claudia Anderson [facility] Work Phone: Start: 05-30-2023 End: 05-30-[address] [facility] Start: 05-30-2023 End: 05-30-[address] [facility] Start: 05-30-[address] [facility] Start: 05-27-2023 End: 05-27-[address] Claudia Anderson [facility] Work Phone: Start: 04-13-2023 End: 04-13-[address] Claudia Anderson [facility] Start: 02-28-2023 End: 02-28-[address] Addi Tatum Work Phone: [facility] Work Phone: Start: 02-28-2023 End: 02-28-[address] Addi Tatum Work Phone: [facility] Work Phone: Start: 02-28-2023 End: 02-28-[address] Addi Tatum Work Phone: [facility] Work Phone: Start: 01-25-2023 End: 01-25-[address] Addi Tatum Work Phone: [facility] Work Phone: Start: 01-25-2023 End: 01-25-[address] Addi Tatum Work Phone: [facility] Start: 01-11-2023 End: 01-11-[address] 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 Claudia Streetjeffy [facility] Work Phone: Start: 12-20-2022 End: 12-20-[address] Claudia Anderson [facility] Start: 12-20-[address] Claudia Anderson [facility] Start: 12-17-2022 End: 12-17-[address] Claudia Anderson [facility] Work Phone: Start: 12-17-2022 End: 12-17-[address] Claudia Anderson [facility] Start: 12-15-2022 End: 12-15-2022 Emergency department patient visit Dr. Claudia Anderson [facility] Work Phone: Start: 12-02-2022 End: 12-02-[address] Claudia Anderson [facility] Work Phone: Start: 11-17-2022 End: 11-17-[address] Claudia Anderson [facility] Work Phone: Start: 11-17-2022 End: 11-17-[address] Claudia Anderson [facility] Work Phone: Start: 11-17-2022 End: 11-17-[address] Claudia Anderson [facility] Work Phone: Start: 11-17-2022 End: 11-17-[address] Claudia Anderson [facility] Work Phone: Start: 11-17-2022 End: 11-17-[address] [facility] Start: 11-17-[address] [facility] Start: 11-09-2022 End: 11-09-[address] Claudia Anderson [facility] Work Phone: Start: 10-11-2022 End: 10-11-[address] Claudia Anderson [facility] Work Phone: Start: 09-29-2022 End: 09-29-[address] Claudia Anderson [facility] Start: 09-29-[address] [facility] Start: 09-28-2022 End: 09-28-[address] Claudia Anderson [facility] Work Phone: Start: 09-22-2022 End: 09-22-[address] [facility] Start: 09-22-2022 End: 09-22-[address] Claudia Anderson [facility] Start: 09-22-[address] [facility] Start: 09-15-2022 End: 09-15-[address] [facility] Start: 09-15-2022 End: 09-15-[address] [facility] Start: 09-15-[address] Taylor [facility] Start: 09-14-2022 Non-patient / Non-visit Dr. Claudia Felix jeannette [facility] Start: 09-14-2022 Dr. Medardo roth Work Phone: [facility] Start: 09-14-2022 End: 09-14-2022 Admission [facility] Start: 09-14-2022 End: 09-14-[address] Medardo Mayo Work Phone: [facility] Work Phone: Start: 09-14-2022 End: 09-14-2022 Dr. Medardo Mayo Work Phone: [facility] Start: 09-08-2022 End: 09-08-[address] [facility] Start: 09-08-2022 End: 09-08-[address] [facility] Start: 09-08-[address] [facility] Start: 09-08-2022 Dr. Medardo roth Work Phone: [facility] Start: 09-06-2022 End: 09-06-[address] Claudia Anderson [facility] Work Phone: Start: 09-06-2022 End: 09-06-2022 Dr. Medardo Mayo Work Phone: [facility] Start: 09-01-2022 End: 09-01-[address] Medardo Mayo Work Phone: [facility] Work Phone: Start: 09-01-2022 End: 09-01-[address] Claudia Anderson [facility] Start: 09-01-2022 End: 09-01-2022 Dr. Medardo Mayo Work Phone: [facility] Start: 08-27-2022 End: 08-28-2022 Emergency department patient visit Dr. Claudia Anderson [facility] Work Phone: Start: 08-27-2022 End: 08-28-2022 Dr. Medardo Mayo Work Phone: [facility] Start: 08-25-2022 End: 08-25-[address] [facility] Start: 08-25-2022 End: 08-25-[address] Claudia Anderson [facility] Start: 08-25-2022 Dr. Medardo roth Work Phone: [facility] Start: 08-18-2022 End: 08-18-[address] Medardo Mayo Work Phone: [facility] Work Phone: Start: 08-18-2022 End: 08-18-[address] Claudia Anderson [facility] Start: 08-18-2022 End: 08-18-2022 Dr. Medardo Mayo Work Phone: [facility] Start: 08-11-2022 End: 08-11-[address] Medardo Mayo Work Phone: [facility] Work Phone: Start: 08-11-2022 End: 08-11-[address] [facility] Start: 08-11-2022 End: 08-11-2022 Dr. Medardo Mayo Work Phone: [facility] Start: 08-10-2022 End: 08-10-[address] Claudia Anderson [facility] Start: 08-10-2022 End: 08-10-2022 Dr. Medardo Mayo Work Phone: [facility] Start: 08-04-2022 End: 08-04-[address] [facility] Start: 08-04-2022 End: 08-04-[address] Claudia Anderson [facility] Start: 08-04-2022 End: 08-04-2022 Dr. Medardo Mayo Work Phone: [facility] Start: 07-28-2022 End: 07-28-[address] [facility] Start: 07-28-2022 End: 07-28-2022 Dr. Medardo Mayo Work Phone: [facility] Start: 07-21-2022 End: 07-21-[address] Claudia Anderson [facility] Start: 07-21-[address] Claudia Anderson [facility] Start: 07-21-2022 End: 07-21-2022 Dr. Medardo Mayo Work Phone: [facility] Start: 07-14-2022 End: 07-14-[address] Medardo Mayo Work Phone: [facility] Work Phone: Start: 07-14-2022 End: 07-14-[address] Medardo Mayo Work Phone: [facility] Start: 07-14-[address] Claudia Anderson [facility] Start: 07-14-2022 End: 07-14-2022 Dr. Medardo Mayo Work Phone: [facility] Start: 07-07-2022 End: 07-07-[address] Claudia Anderson [facility] Work Phone: Start: 07-07-2022 End: 07-07-[address] Claudia Anderson [facility] Start: 07-07-2022 End: 07-07-2022 Dr. Medardo Mayo Work Phone: [facility] Start: 07-01-2022 End: 07-01-[address] Claudia Anderson [facility] Start: 07-01-2022 End: 07-01-2022 Dr. Medardo Mayo Work Phone: [facility] Start: 06-30-2022 End: 06-30-[address] Claudia Anderson [facility] Start: 06-30-2022 Registered Referred [facility] Start: 06-30-2022 End: 06-30-2022 Dr. Medardo Mayo Work Phone: [facility] Start: 06-16-2022 End: 06-16-2022 ambulatory [facility] Work Phone: Start: 06-16-2022 End: 06-16-2022 Departed Referred [facility] Start: 06-16-2022 Registered Referred [facility] Start: 06-16-2022 End: 06-16-2022 Dr. Medardo Mayo Work Phone: [facility] Start: 06-09-2022 End: 06-09-2022 ambulatory [facility] Work Phone: Start: 06-09-2022 End: 06-09-2022 Departed Referred [facility] Start: 06-09-2022 Registered Referred [facility] Start: 06-09-2022 End: 06-09-2022 Dr. Medardo Mayo Work Phone: [facility] Start: 06-04-2022 End: 06-04-2022 Departed Referred [facility] Start: 06-04-2022 Registered Referred [facility] Start: 06-04-2022 End: 06-04-2022 Dr. Medardo Mayo Work Phone: [facility] Start: 06-02-2022 End: 06-02-2022 Departed Referred [facility] Start: 06-02-2022 Registered Referred [facility] Start: 06-02-2022 End: 06-02-2022 Dr. Medardo Mayo Work Phone: [facility] Start: 05-31-2022 End: 05-31-2022 ambulatory [facility] Work Phone: Start: 05-31-2022 End: 05-31-2022 Departed Referred [facility] Start: 05-31-2022 Registered Referred [facility] Start: 05-31-2022 End: 05-31-2022 Dr. Medardo Mayo Work Phone: [facility] Start: 05-26-2022 End: 05-26-2022 ambulatory [facility] Work Phone: Start: 05-26-2022 End: 05-26-2022 Departed Referred [facility] Start: 05-26-2022 Registered Referred [facility] Start: 05-26-2022 End: 05-26-2022 Dr. Medardo Mayo Work Phone: [facility] Start: 05-19-2022 End: 05-19-2022 Departed Referred [facility] Start: 05-19-2022 Registered Referred [facility] Start: 05-19-2022 End: 05-19-2022 Dr. Medardo Mayo Work Phone: [facility] Start: 05-12-2022 End: 05-12-2022 ambulatory [facility] Work Phone: Start: 05-12-2022 End: 05-12-2022 Departed Referred [facility] Start: 05-12-2022 Registered Referred [facility] Start: 05-12-2022 End: 05-12-2022 Dr. Medardo Mayo Work Phone: [facility] Start: 05-11-2022 End: 05-11-2022 ambulatory [facility] Work Phone: Start: 05-11-2022 End: 05-11-2022 Departed Referred [facility] Start: 05-11-2022 Registered Referred [facility] Start: 05-11-2022 End: 05-11-2022 Dr. Medardo Mayo Work Phone: [facility] Start: 05-05-2022 End: 05-05-2022 ambulatory [facility] Work Phone: Start: 05-05-2022 End: 05-05-2022 Departed Referred [facility] Start: 05-05-2022 Registered Referred [facility] Start: 04-19-2022 End: 04-19-2022 ambulatory [facility] Work Phone: Start: 04-19-2022 End: 04-19-2022 Departed Referred [facility] Start: 04-19-2022 Registered Referred [facility] Start: 04-15-2022 End: 04-16-2022 Emergency department patient visit [facility] Start: 03-30-2022 End: 03-30-2022 ambulatory [facility] Work Phone: Start: 03-30-2022 End: 03-30-2022 Departed Referred [facility] Start: 03-30-2022 Registered Referred [facility] Start: 03-29-2022 End: 03-29-2022 ambulatory [facility] Work Phone: Start: 03-29-2022 End: 03-29-2022 Departed Referred [facility] Start: 03-29-2022 Registered Referred [facility] Start: 03-11-2022 Registered Referred [facility] Start: 03-05-2022 Registered Referred [facility] Start: 02-16-2022 Registered Referred [facility] Start: 02-13-2022 End: 02-14-2022 Emergency department patient visit [facility] Start: 02-08-2022 End: 02-08-2022 ambulatory [facility] Work Phone: Start: 02-08-2022 End: 02-08-2022 Departed Referred [facility] Start: 01-31-2022 End: 02-01-2022 Emergency department patient visit [facility] Start: 01-18-2022 End: 01-18-2022 Emergency department patient visit [facility] Start: 12-29-2021 End: 12-29-2021 ambulatory [facility] Work Phone: Start: 12-29-2021 End: 12-29-2021 Departed Referred [place] [id number] Start: 12-29-2021 Registered Referred [place] [id number] Start: 12-23-2021 End: 12-23-2021 Departed Referred [facility] Start: 12-23-2021 Registered Referred [place] [id number] Start: 12-16-2021 Registered Referred [place] [id number] Start: 12-09-2021 Registered Referred [place] [id number] Start: 12-02-2021 End: 12-02-2021 ambulatory [facility] Work Phone: Start: 12-02-2021 End: 12-02-2021 Departed Referred [facility] Start: 12-02-2021 Registered Referred [facility] Start: 11-25-2021 End: 11-25-2021 ambulatory [facility] Work Phone: Start: 11-25-2021 End: 11-25-2021 Departed Referred [facility] Start: 11-25-2021 Registered Referred [facility] Start: 11-21-2021 End: 11-22-2021 Emergency department patient visit [facility] Start: 11-18-2021 End: 11-18-2021 ambulatory [facility] Work Phone: Start: 11-18-2021 End: 11-18-2021 Departed Referred [facility] Start: 11-18-2021 Registered Referred [facility] Start: 11-11-2021 End: 11-11-2021 Departed Referred [facility] Start: 11-11-2021 Registered Referred [facility] Start: 11-04-2021 End: 11-04-2021 ambulatory [facility] Work Phone: Start: 11-04-2021 End: 11-04-2021 Departed Referred [place] [id number] Start: 11-04-2021 Registered Referred [place] [id number] Start: 10-28-2021 End: 10-28-2021 ambulatory [facility] Work Phone: Start: 10-28-2021 End: 10-28-2021 Departed Referred [place] [id number] Start: 10-21-2021 Registered Referred [facility] [address] Start: 10-19-2021 Registered Referred [place] [id number] Start: 10-14-2021 End: 10-14-2021 Departed Referred [place] [id number] Start: 10-10-2021 End: 10-10-2021 Emergency department patient visit [facility] Start: 10-07-2021 End: 10-08-2021 Emergency department patient visit [facility] Start: 10-05-2021 End: 10-05-2021 Departed Referred [facility] Start: 10-05-2021 Registered Referred [facility] Start: 07-29-2021 End: 07-29-2021 Departed Referred [facility] Start: 04-20-2021 Registered Referred [facility] Start: 10-24-2018 End: 10-24-2018 Patient encounter procedure Jeramie Moreau MD Work Phone: [facility] Work Phone: Procedures Date Procedure Procedure Detail Performing Clinician Start: 11-21-2024 MRI of lumbar spine Dr. Claudia Anderson MD Start: 10-25-2024 Vitamin D, 25-hydrox y measurement Dr. Claudia Anderson MD Comment on above: Vitamin D StatusDefi ciency: <20 ng/mL (50nmol/L)Insufficiency: 20-30 ng/mL (50-75 nmol/L)Sufficiency: 30-100 ng/mL (75-250 nmol/L)Toxicity: >100 ng/mL (>250 nmol/L) Start: 09-03-2024 X-ray of lumbar spin e, [...] 12-29-2022 Computerized ophthal leidy imaging retina Sabrina Wlech MD Work Phone: Start: 12-15-2022 SARS-CoV-2 & [...] views Lumbar Spine 2 or 3 Views [facility] Start: 08-06-2024 XR Lumbar spine 2 or 3 Views [facility] Start: 05-07-2024 Patient referral [facility] Work Phone: Start: 06-28-2023 Patient referral [facility] Work Phone: Start: 06-08-2023 [facility] Start: 11-19-2022 Covid-19 Vaccine ( season) Covid-19 Vaccine ( season) [facility] Start: 11-19-2022 Influenza vaccination Influenza Vaccine (#1) [facility] Start: 11-09-2022 Patient referral [facility] Work Phone: Start: 09-14-2022 Anesthesia anorectal procedure ANESTH ANORECTAL SURGERY [facility] Start: 09-14-2022 Hemorrhoidectomy int & xtrnl 2/> column/jerry REMOVE IN/EX HEM GROUPS 2+ [facility] Start: 09-14-2022 Patient discharge [facility] Start: 04-15-2022 [facility] Start: 03-21-2022 Advance Directive Discussion Advance Directive Discussion [facility] Start: 03-21-2022 Depression Assessment Depression Assessment [facility] Start: 10-19-[address] [facility] Work Phone: Start: 10-19-2021 Thyroid stimulating hormone measurement [facility] Work Phone: Start: 10-19-2021 [address] [facility] Work Phone: Start: 10-07-[address] [facility] Work Phone: Start: 10-24-2018 End: 10-24-2018 Appointment Appointment [facility] Work Phone: Start: 08-29-2016 Bone Density Screening Bone Density Screening [facility] Start: 08-29-2016 Pneumococcal Vaccine: 65+ (1 - PCV) Pneumococcal Vaccine: 65+ (1 - PCV) [facility] Start: 08-29-2001 Shingrix Vaccine (1 of 2) Shingrix Vaccine (1 of 2) [facility] Start: 08-29-1996 Cologuard (FIT-DNA) Cologuard (FIT-DNA) [facility] Start: 08-29-1996 Colonoscopy Colonoscopy [facility] Start: 08-29-1996 Colorectal Cancer Screening Colorectal Cancer Screening [facility] Start: 08-29-[address] COLONOGRAPHY [facility] Start: 08-29-1996 Diabetes Screening Diabetes Screening [facility] Start: 08-29-1996 Fecal Occult Blood Fecal Occult Blood [facility] Start: 08-29-1996 Lipid 1996 panel - Serum or Plasma Lipid Screening [facility] Start: 08-29-1996 SIGMOIDOSCOPY SIGMOIDOSCOPY [facility] Start: 1991 Mammography Mammogram Screening [facility] Start: 08-29-1970 Urine microalbumin profile DTaP,Tdap,Td Vaccine (1 - Tdap) [facility] Start: 08-29-1969 Hepatitis C Screening Hepatitis C Screening [facility] Bacteria identified in Urine by Culture Urine Culture [facility] Blood ammonia measurement [facility] Blood ammonia measurement [facility] Blood ammonia measurement [facility] Folate [Mass/volume] in Serum or Plasma [facility] Folate [Mass/volume] in Serum or Plasma [facility] Lamotrigine measurement [facility] Work Phone: MR Brain WO [facility] MR Brain WO contrast [facility] MR Cervical spine [facility] MR Lumbar spine [facility] Patient Education [facility] Work Phone: Patient referral [facility] Work Phone: PHENobarbital [Mass/volume] in Serum or Plasma [facility] Primidone measurement [facility] Thiamine measurement [facility] Immunizations Immunization Date Immunization Notes Care Provider Fa cility 06-08-2023 tetanus toxoid, redu chandu diphtheria toxoid, and acellular pertussis vaccine, adsorbed Dr. Claudia Anderson [facility] Payers Date Payer Category Payer Medicare [id number] 2023 Self-pay [id number] 2023 Unknown [id number] 2023 Unknown [id number] [address] [facility] MEDICAID MYC ARE [facility] MEDICAID [id number] 2020-Present [phone] [address] [place] [address] Medicaid [id number] [address] [facility] MEDICARE MYC ARE [facility] MEDICARE [id number] 2020-Present [phone] [address] [place] [address] Medicare [id number] 2020 Unknown [id number] Unknown [id number] Unknown [id number] [id number] Unknown [id number] 2.16.840.1.502222.3.579.2.462 Unknown [id number] 2.16.840.1.400581.3.579.2.462 Unknown [id number] 2.16.840.1.802615.3.579.2.462 Unknown [id number] 2.16.840.1.811989.3.579.2.462 Unknown [id number] 2.16.840.1.843807.3.579.2.462 Unknown [id number] 2.16.840.1.989860.3.579.2.462 Unknown [id number] 2.16.840.1.121709.3.579.2.462 Unknown [id number] 2.16840.1.139487.3.579.2.462 Unknown [id number] 2.16840.1.720019.3.579.2.462 Unknown [id number] 2.840.1.157939.3.579.2.462 Unknown [id number] 2.16.840.1.340784.3.579.2.462 Unknown [id number] 2.16840.1.288195.3.579.2.462 Unknown [id number] 2.16840.1.920709.3.579.2.462 Unknown [id number] 2.16840.1.692521.3.579.2.462 Unknown [id number] 2.840.1.671813.3.579.2.462 Unknown [id number] 2.840.1.120297.3.579.2.462 Social History Date Type Detail Facility Start: 1950 Sex Assigned At Female [facility] Start: 10-07-2021 End: 02-28-2023 Tobacco smoking status NHIS Unknown if ever smoked [facility] Start: 09-10-2020 Tobacco smoking status NHIS Ex-smoker [facility] History of tobacco use Current smoker [facility] Start: 09-10-2020 Tobacco use and exposure Smokeless tobacco non-user [facility] Start: 12-29-2022 Alcohol intake Lifetime non-d josé (finding) [facility] Start: 12-16-2020 End: 03-17-2021 History of Social function [facility] Start: 12-16-2020 End: 03-17-2021 Tobacco use panel [facility] National Score (1-100), lower number is lower risk Not on file [facility] Start: 1950 Sex Assigned At Not on file [facility] Start: 06-28-2023 Tobacco smoking status NHIS Never smoked tobacco (finding) [facility] NEGATED: Highlighted rowStart: 10-24-2018 End: 10-24-2018 Assertion Former smoker [facility] Work Phone: NEGATED: Highlighted row [facility] Goals Date Patient Goal Desired Activity /State Mental Status Date Assessment Result Facility 09-14-2022 Cognitive function Awake;Alert [facility] Work Phone: 09-14-2022 Cognitive function Voice/Name [facility] Work Phone: 04-15-2022 Cognitive function Voice/Name [facility] Work Phone: 01-18-2022 Cognitive function Voice/Name [facility] Work Phone: Clinical Notes 11-21-2021 to 11-05-2024 Note Date & Type Note Facility 11-05-2024 Evaluation note Diagnosis Onset Date Resolution Dementia acute November 05, 2 025 2:30pm Myalgia acute November 05, 2 025 2:30pm Essential tremor chronic October 192024 2:30pm Low back pain chronic October 2:30pm Folate deficiency resolved November 05, 2024 2:30pm [facility] Work Phone: 1([phone]) 679-620106-17-2025 Radiology Diagnostic study note [facility] Imaging Services [address] [place] [id number] Lumbar Spine 2 or 3 Views MR#: [id number] Acct: [id number] Name: CANDI AGUILAR Rep #: [id number] : 1950 F 74 From: Fernanda Mendiola MD PCP: Claudia Anderson MD Status: REG CLI Study:Lumbar Spine 2 or 3 Views Date of Exam: 09/03/24 Exam# [id number] Ordering Dr: Jeffy Bran MD PROCEDURE: LUMBAR [...] stenosis. Unchanged exaggerated lumbar lordosis. [facility] CC: Dr. Kendra Bran MD; Claudia Anderson MD ~ Marble Cleaner: Signed [facility]05-20-2025 Radiology Diagnostic study note [facility] Imaging Services [address] [place] [id number] Lumbar Spine 2 or 3 Views MR#: [id number] Acct: [id number] Name: CANDI AGUILAR Rep #: [id number] : 1950 F 73 From: Humberto Rojas MD PCP: Claudia Anderson MD Status: REG CLI Study:Lumbar Spine 2 or 3 Views Date of Exam: 08/06/24 Exam# [id number] Ordering Dr: Jeffy Bran MD PROCEDURE: LUMBAR SPINE 2 OR 3 VIEWS 08/06/2024 REASON FOR EXAM: SPONDYLOSIS WITHOUT MYELOPATHY OR RADICULOPATHY, LUMBAR REGION TECHNIQUE: 2 view(s) of the lumbar spine COMPARISON: 05/27/2023 FINDINGS: 5 qvz-nwg-[id number] lumbar vertebral body types identified. No acute fracture or malalignment. There is again note of a remote moderate T11 compression deformity with anterior wedging, unchanged. L1-2 moderate disc space narrowing L2-3 tpsq-ms-wzvgzzbq disc space narrowing with degenerative endplate change L3-4 rkyttimo-ha-yutjza disc space narrowing with degenerative endplate change L4-5 xmfe-ed-viqgaqdj disc space narrowing and degenerative endplate change Lower lumbar facet degenerative changes RAD/Lumbar Spine 2 or 3 Views IMPRESSION: No significant interval change in appearance of multilevel spondylosis/discogenic change as above. Reading Location: [facility] CC: Dr. Kendra Bran MD; Claudia Anderson MD ~ Marble Cleaner: Signed [facility]05-19-2025 Evaluation note* Diagnosis Onset Date Resolution Status Admit Date Dementia acute August 06, 2024 1:52pm Multiple falls acute August 06, 2024 1:52pm Myalgia acute August 06, 2024 1:52pm Abnormality of gait and mobility chr onic August 06, 2024 1:52pm Low back pain chronic August 06, 2 025 1:52pm [facility] Work Phone: [phone]) 705-802302-17-2025 Evaluation note* Diagnosis Onset Date Resolution Status [...] mobility chronic August 06, 2024 1 :52pm [facility] Work Phone: [phone] Evaluation note* Diagnosis Onset Date Resolution Status [...] pain chronic August 06, 2 025 1:52pm [facility] Work Phone: [phone] Discharge summary Author Bart Mares [facility] June 08, 2023 11:45pm Note Date/Time June 08, 2023 11: 21pm [facility] Medical Records Department [address] [place] [address] Emergency Department Summary 06/08/23 MR#: [id number] Acct: [id number] Name: CANDI AGUILAR ANN Rep #:[id number] : 1950 72 From: Bart Mares MD [...] is an elderly woman who [facility]. She was running to therestroom. She was [...] cholesterol Hx of hemorrhoids Insomnia Lives in [facility] Non-smoker Thyroid disease Home Medications aspirin 81 [...] dibucaine 1 % rectal ointment 1 applic AR TID PRN hemorrhoids #56 grams 09/28/22[Rx Last [...] other than a baby aspirin per the [place] CT head rule imaging of the head [...] 6RF dibucaine 1 % ointment 1 applic AR TID PRN (Reason: hemorrhoids) Qty: 56 0RF [...] your Primary Care Provider. Call [facility] ([phone]) or report to the closest Emergency Room. Call 911 if necessary. 06/08/23 6879 <Electronically signed by Bart Mares MD> Cosigner Signature (if applicable): CC: Claudia Anderson MD ~ Signed [facility] Work Phone: [phone] 465-906310-18-2023 NoteHNO ID: [id number] Author: Sabrina Welch MD Service: ? Author [...] all of its relevant components. Sabrina Welch, [facility]10-11-2023 NoteHNO ID: [id number] Author: Sabrina Welch MD Service: ? Author [...] with all of its relevant components. Sabrina Welch [facility]10-11-2023 Instructions* Patient Instructions* Sabrina Welch MD - 12/29/2022 2:02 PM EDT Images from the original note were not included. documented in this encounter[facility] History of Present illness Narrative* Sabrina [...] components. Sabrina Welch MD documented in this encounterUniversity [facility]als [facility]06-27-2023 Procedure [facility]06-27-2023 History and physical note Author Dr. Mckeon [facility] September 14, 2022 10:52am Note Date/Time September 14, 2022 10:5 2am [facility] Medical Records Department [address] [place] [address] History & Physical Exam 09/14/22 1051 MR#: [id number] Acct: [id number] Name: CANDI AGUILAR Rep #:[id number] : 1950 72 From: Willy suarez MD PCP: Claudia Anderson MD Status:[facility] Location: [place] [address] History and Physical Date of Admission: 09/14/22 [...] General: cooperative Orientation: alert and oriented x3 [facility] Head: normal to inspection Neck Neck: normal [...] for 5 days. Willy Mckeon MD Pager: [facility] [address] [place] [address], [address] [place] [address] Office: I have examined the patient and the H&P has been reviewed. There are no clinicalchanges since date of exam. 09/14/22 1052 <Electronically signed by Willy Mckeon MD> Cosigner Signature (if applicable): CC: Dr. Willy Mckeon MD; Claudia Anderson MD~ Signed [facility] Work Phone: [phone] 325-308601-27-[address] Ocampo [facility] April 16, 2022 12:31am Note Date/Time April 15, 2022 1 0:18pm [facility] Medical Records Department [address] [place] [address] Emergency Department Summary 04/15/22 MR#: [id number] Acct: [id number] Name: CANDI AGUILAR Rep #:[id number] : 1950 71 From: David Willams PCP: Dr. Addi Tatum DO Status:RE G ER Location: ED HPI History of Present Illness Chief Complaint: Mental Status Change Informant: EMS and SNF Narrative Narrative: Patient brought in by EMS from [facility] for reported altered mental status throughout the [...] 4 times daily from 3 times daily. [facility] Medical History Alzheimer's dementia Anxiety Asthma High [...] % (Auto) 50.0 Lymph % (Auto) 32.4 [place] % (Auto) 12.1 H Eos % (Auto) [...] Color Urine Clarity Urine pH Ur Specific [place] Urine Protein Urine Glucose (UA) Urine Ketones Urine Occult Blood Urine Nitrite Urine Bilirubin Urine Urobilinogen Ur Leukocyte Esterase Urine RBC Urine WBC Ur Squamous Epith Cells Urine Bacteria Urine Mucus 04/15/22 22:17 WBC RBC Hgb Hct MCV MCH MCHC RDW Std Deviation RDW Coeff of Krystal Plt Count MPV Immature Gran % (Auto) Neut % (Auto) Lymph % (Auto) [place] % (Auto) Eos % (Auto) Baso % [...] Clarity Clear Urine pH 5.0 Ur Specific [place] 1.020 Urine Protein 15 H Urine Glucose [...] 22:53 EST Reading Location ID and State: [facility] / ID Tel , Service support , Cervical Spine [...] Signed: Jackson Garcia MD at 22:57 EST , Thoracic Spine CT 04/15/22 21:59 IMPRESSION: [...] 23:05 EST Reading Location ID and State: [employer] / ID Tel , Service support , Chest X-Ray 04/15/22 22:30 IMPRESSION: Few scattered patchy opacities could represent infection the correct clinical setting. Severe compression deformity of T11. Refer to thoracic CT report for more details. Electronically Signed: Jackson Garcia MD at 23:06 EST Reading Location ID and State: [employer] / ID Tel , Service support , Pelvis X-Ray 04/15/22 22:30 IMPRESSION: No evidence of displaced pelvic or hip fracture. Moderate degenerative changes of the bilateral hips. Electronically Signed: Jackson Garcia MD at 23:07 EST Reading Location ID and State: [employer] / ID Tel , Service support , EKG Initial [...] your Primary Care Provider. Call [facility] ([phone]) or report to the closest Emergency Room. Call 911 if necessary. 04/16/22 0031 <Electronically signed by David Willams> Cosigner Signature (if applicable): CC: Dr. Addi Tatum DO ~ Signed [facility] Work Phone: 1(260) 825-454709-03-2022 Hospital Discharge instructions Additional Instructions Please continue all of your medications as previously prescribed. You will be sore after the fall for typically about 7 to 10 days. If symptoms are lasting longer than this or worsen please return to the ER or see your family doctor for repeat evaluation.[facility] Work Phone: Discharge summary Author Dr. Mckeon [facility] September 14, 2022 1:14pm Note Date/Time September 14, 2022 1:11 pm [facility] Medical Records Department [address] [place] [address] Instructions for Home/Discharge Instructions 09/14/22 1310 MR#: [id number] Acct: [id number] Name: CANDI AGUILAR ANN Rep #:[id number] : 1950 72 From: Willy suarez MD PCP: Claudia Anderson MD Status:REG [facility] Discharge Instructions Procedure Rectal Surgery Diet Discharge [...] to schedule 2 week follow up appointment. [phone] Test Results: Test results from this visit [...] MD CC: Claudia Anderson MD ~ Signed [facility] Work Phone: evaluation noteNo assessment information available [facility] Work Phone: evaluation note* Diagnosis Onset Date Resolution Status Low back pain acute Myalgia acute [facility] Work Phone: evaluation note* Diagnosis Onset Date Resolution Status Myalgia acute Abnormality of gait and mobility chronic Alzheimer's dementia chronic Essential tremor chronic Low back pain chronic Lumbar radiculopathy chronic [facility] Work Phone: Evaluation note* Diagnosis Onset Date Resolution Status Myalgia acute Abnormality of gait and mobility chronic Alzheimer's dementia chronic Essential tremor chronic Low back pain chronic Lumbar radiculopathy chronic Bleeding hemorrhoids acute [facility] Work Phone: Evaluation note* Diagnosis Onset Date Resolution Status Bleeding hemorrhoids acute Bleeding hemorrhoids acute Bleeding hemorrhoids acute Hyperammonemia acute Thoracic compression fracture acute Abnormality of gait and mobility chronic Alzheimer's dementia chronic Essential tremor chronic Low back pain chronic Lumbar radiculopathy chronic [facility] Work Phone: Evaluation note* Diagnosis Onset Date Resolution Status Bleeding hemorrhoids acute Bleeding hemorrhoids acute Bleeding hemorrhoids acute Hyperammonemia acute Thoracic compression fracture acute Abnormality of gait and mobility chronic Alzheimer's dementia chronic Essential tremor chronic Low back pain chronic Lumbar radiculopathy chronic Myalgia acute Rib pain on right side acute Low back pain chronic [facility] Work Phone: Evaluation note* Diagnosis Onset Date [...] right side acute Thoracic compression fracture acute [facility] Work Phone: Evaluation note* Diagnosis Right posterior capsular opacification- Primary After-cataract, unspecified 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 Dry eye syndrome of both eyes Pseudophakia Lens replaced by other means documented in this encounter [facility]* Diagnosis Onset Date Resolution Status Hyperammonemia acute Thoracic compression fracture acute Abnormality of gait and mobility chronic Alzheimer's dementia chronic Essential tremor chronic Low back pain chronic Lumbar radiculopathy chronic Myalgia acute Rib pain on right side acute Low back pain chronic Rib pain on right side acute Thoracic compression fracture acute [facility] Work Phone: Evaluation note* Diagnosis Onset Date Resolution Status Myalgia acute Right shoulder pain acute Lumbar radiculopathy chronic Acute bilateral low back pain without sciatica acute Calcific tendonitis of left shoulder acute [facility] Work Phone: Evaluation note* Diagnosis Onset Date Resolution Status Acute bilateral low back pain without sciatica acute Calcific tendonitis of left shoulder acute Dementia acute Folate deficiency acute Hyperammonemia acute Myalgia acute Right shoulder pain acute Essential tremor chronic Low back pain chronic [facility] Work Phone: Evaluation note* Diagnosis Onset Date Resolution Status Acute bilateral low back pain without sciatica acute Calcific tendonitis of left shoulder acute Dementia acute Folate deficiency acute Hyperammonemia acute Myalgia acute Right shoulder pain acute Essential tremor chronic Low back pain chronic Left shoulder pain acute [facility] Work Phone: Evaluation note* Diagnosis Onset Date [...] Right shoulder pain acute Lumbar radiculopathy chronic [facility] Work Phone: Hospital Discharge instructions Additional Instructions Acute on chronic T11 compression fracture found on imagings. CT scan head and neck lumbar spine negative. Urine negative for infection. Lab's are all stable.[facility] Work Phone: Hospital Discharge instructionsAmbulatory Orders* Orthopedics Location: None Selected [facility] Work Phone: Hospital Discharge instructions Additional Instructions Ice to facial contusion and left hip contusion 6-10 times a day Tylenol for painWCleveland [facility] Work Phone: Reason for referral (narrative)No reason for referral information availableWCleveland Clinic South [facility]inte [facility] Work Phone: Summary Purpose Family History No Family History Records Found Relationship Condition Age at Onset Recorded Date/T sergio father Cerebrovascular accident (CVA) Unknown grandfather Cerebrovascular accident (CVA) Unknown Advance Directives No Advanced Directives Records Found Advance Directive Response Recorded Date/ Time Living Will No October 07, 2021 6:51pm Power of Drafter Commercial No October 07 6:51pm Advance Directive Response Recorded Date/ Time Living Will No November 21 10:33pm Power of Drafter Commercial No November 21, 2021 10:33pm Advance Directive Response Recorded Date/ Time Living Will No January 18 7:14pm Power of Drafter Commercial No January 18, 2022 7:14pm Advance Directive Response Recorded Date/ Time Living Will No January 31 11:42pm Power of Drafter Commercial No January 31, 2022 11:42pm Advance Directive Response Recorded Date/ Time Living Will No February 13 10:50pm Power of Drafter Commercial No February 13, 2022 10:50pm Advance Directive Response Recorded Date/ Time Living Will No April 15 9:50pm Power of Drafter Commercial No April 15, 2022 9:50pm Advance Directive Response Recorded Date/ Time Living Will No April 15 10:50pm Power of Drafter Commercial No April 15, 2022 10:50pm Advance Directive Response Recorded Date/ Time Living Will No August 27, 2022 1 0:18pm Power of Drafter Commercial No August 27, 2022 10:18pm Advance Directive Response Recorded Date/ Time Living Will No September 09, 2022 11:13am Power of Drafter Commercial No September 09 11:13am Advance Directive Response Recorded Date/ Time Living Will No November 09 9:20am Power of Drafter Commercial No November 09, 023 9:20am Advance Directive Response Recorded Date/ Time Living Will No December 15, 2022 9:43am Power of Drafter Commercial No November 9:43am Advance Directive Response Recorded Date/ Time Living Will No December 15, 2022 8:43am Power of Drafter Commercial No November 8:43am Advance Directive Response Recorded Date/ Time Living Will No June 28, 2023 4:46pm Power of Drafter Commercial No June 27 4:46pm Advance Directive Response Recorded Date/ Time Living Will No June 28, 2023 4:46pm Do you have a Healthcare Power of Drafter Commercial? No June 28, 2023 4:46pm Chief Complaint Chief Complaint Description Start Date left hip pain Preliminary chief co mplaint data, not yet signed by the author as of Instructions Instruction Description Start Date Please follow-up with Primar Care Physician or Animal Trainer Supervisor for treatment or adjustment of medication regarding [...] Complaint and Reason for Visit Chief Complaint INTERMEDIATE LAB WOR K Chief Complaint FALL Chief Complaint FALL fall Chief Complaint FALL fall LAB WORK LAB WORK INTERMEDIATE LAB WORK INTERMEDIATE LAB WORK Chief Complaint FALL fall LAB WORK LAB WORK INTERMEDIATE LAB WORK INTERMEDIATE LAB WORK fall Chief Complaint FALL fall LAB WORK LAB WORK INTERMEDIATE LAB WORK INTERMEDIATE LAB WORK INTERMEDIATE LABWORK fall Chief Complaint FALL fall LAB WORK LAB WORK INTERMEDIATE LAB WORK INTERMEDIATE LAB WORK INTERMEDIATE LABWORK INTERMEDIATE LABWORK INTERMEDIATE LABWORK fall INTERMEDIATE LAB WORK Chief Complaint FALL fall LAB WORK LAB WORK INTERMEDIATE LAB WORK INTERMEDIATE LAB WORK INTERMEDIATE LABWORK INTERMEDIATE LABWORK INTERMEDIATE LABWORK fall INTERMEDIATE LAB WORK LAB WORK LAB WORK LABWORK Chief Complaint FALL fall LAB WORK LAB WORK INTERMEDIATE LAB WORK INTERMEDIATE LAB WORK INTERMEDIATE LABWORK INTERMEDIATE LABWORK INTERMEDIATE LABWORK fall INTERMEDIATE LAB WORK LAB WORK LAB WORK LABWORK INTERMEDIATE LAB WORK INTERMEDIATE LAB WORK Chief Complaint FALL fall LAB WORK LAB WORK INTERMEDIATE LAB WORK INTERMEDIATE LAB WORK INTERMEDIATE LABWORK INTERMEDIATE LABWORK INTERMEDIATE LABWORK fall INTERMEDIATE LAB WORK LAB WORK LAB WORK LABWORK INTERMEDIATE LAB WORK INTERMEDIATE LAB WORK FALL Chief Complaint FALL fall LAB WORK LAB WORK INTERMEDIATE LAB WORK INTERMEDIATE LAB WORK INTERMEDIATE LABWORK INTERMEDIATE LABWORK INTERMEDIATE LABWORK fall INTERMEDIATE LAB WORK LAB WORK LAB WORK LABWORK INTERMEDIATE LAB WORK INTERMEDIATE LAB WORK FALL fall Chief Complaint INTERMEDIATE LAB WOR K INTERMEDIATE LAB WORK INTERMEDIATE LABWORK INTERMEDIATE LABWORK INTERMEDIATE LABWORK fall INTERMEDIATE LAB WORK LAB WORK LAB WORK LABWORK INTERMEDIATE LAB WORK INTERMEDIATE LAB WORK FALL fall INTERMEDIATE LAB WORK fall Chief Complaint INTERMEDIATE LAB WOR K INTERMEDIATE LAB WORK FALL fall INTERMEDIATE LAB WORK fall INTERMEDIATE LABWORK LABWORK INTERMEDIATE LABWORK altered mental status Chief Complaint INTERMEDIATE LAB WOR K INTERMEDIATE LAB WORK FALL fall INTERMEDIATE LAB WORK fall INTERMEDIATE LABWORK LABWORK INTERMEDIATE LABWORK INTERMEDIATE LABWORK altered mental status Chief Complaint INTERMEDIATE LAB WOR K INTERMEDIATE LAB WORK FALL fall INTERMEDIATE LAB WORK fall INTERMEDIATE LABWORK LABWORK INTERMEDIATE LABWORK INTERMEDIATE LABWORK INTERMEDIATE LAB WORK altered mental status Chief Complaint FALL fall INTERMEDIATE LAB WORK fall INTERMEDIATE LABWORK LABWORK INTERMEDIATE LABWORK INTERMEDIATE LABWORK INTERMEDIATE LAB WORK altered mental status INTERMEDIATE LABWORK Chief Complaint FALL fall INTERMEDIATE LAB WORK fall INTERMEDIATE LABWORK LABWORK INTERMEDIATE LABWORK INTERMEDIATE LABWORK INTERMEDIATE LAB WORK altered mental status INTERMEDIATE LABWORK LABWORK Chief Complaint LABWORK INTERMEDIATE LABWORK INTERMEDIATE LABWORK INTERMEDIATE LAB WORK altered mental status INTERMEDIATE LABWORK LABWORK INTERMEDIATE LABWORK INTERMEDIATE LAB WORK INTERMEDIATE LABWORK INTERMEDIATE LABWORK Chief Complaint LABWORK INTERMEDIATE LABWORK INTERMEDIATE LABWORK INTERMEDIATE LAB WORK altered mental status INTERMEDIATE LABWORK LABWORK INTERMEDIATE LABWORK INTERMEDIATE LAB WORK INTERMEDIATE LABWORK LABWORK INTERMEDIATE LABWORK Chief Complaint LABWORK INTERMEDIATE LABWORK INTERMEDIATE LABWORK INTERMEDIATE LAB WORK altered mental status INTERMEDIATE LABWORK LABWORK INTERMEDIATE LABWORK LABWORK INTERMEDIATE LAB WORK INTERMEDIATE LABWORK LABWORK INTERMEDIATE LABWORK INTERMEDIATE LABWORK INTERMEDIATE LAB WORK Chief Complaint LABWORK INTERMEDIATE LABWORK INTERMEDIATE LABWORK INTERMEDIATE LAB WORK altered mental status INTERMEDIATE LABWORK LABWORK INTERMEDIATE LABWORK LABWORK INTERMEDIATE LAB WORK INTERMEDIATE LABWORK LABWORK INTERMEDIATE LABWORK INTERMEDIATE LABWORK INTERMEDIATE LAB WORK LABWORK Chief Complaint INTERMEDIATE LABWORK INTERMEDIATE LAB WORK altered mental status INTERMEDIATE LABWORK LABWORK INTERMEDIATE LABWORK LABWORK INTERMEDIATE LAB WORK INTERMEDIATE LABWORK LABWORK INTERMEDIATE LABWORK INTERMEDIATE LABWORK INTERMEDIATE LAB WORK LABWORK INTERMEDIATE LABWORK RECURRENT FALLS, ALZHEIMER'S INTERMEDIATE LAB WORK Reason for Visit Low back pain Myalgia Chief Complaint INTERMEDIATE LABWORK INTERMEDIATE LAB WORK altered mental status INTERMEDIATE LABWORK LABWORK INTERMEDIATE LABWORK LABWORK INTERMEDIATE LAB WORK INTERMEDIATE LABWORK LABWORK INTERMEDIATE LABWORK INTERMEDIATE LABWORK INTERMEDIATE LAB WORK LABWORK INTERMEDIATE LABWORK RECURRENT FALLS, ALZHEIMER'S INTERMEDIATE LAB WORK INTERMEDIATE LAB WORK Reason for Visit Myalgia Abnormality of gait and mobility Alzheimer's dementia Essential tremor Low back pain Lumbar radiculopathy Chief Complaint INTERMEDIATE LABWORK LABWORK INTERMEDIATE LAB WORK INTERMEDIATE LABWORK LABWORK INTERMEDIATE LABWORK INTERMEDIATE LABWORK INTERMEDIATE LAB WORK LABWORK INTERMEDIATE LABWORK RECURRENT FALLS, ALZHEIMER'S INTERMEDIATE LAB WORK INTERMEDIATE LAB WORK INTERMEDIATE LAB WORK INTERMEDIATE LAB WORK LABWORK NECK BACK PAIN INTERMEDIATE LABWORK INTERMEDIATE LAB WORK INTERMEDIATE LAB WORK freq falls LABWORK Reason for Visit Myalgia Abnormality of gait and mobility Alzheimer's dementia Essential tremor Low back pain Lumbar radiculopathy Chief Complaint INTERMEDIATE LAB WOR K INTERMEDIATE LABWORK LABWORK INTERMEDIATE LABWORK INTERMEDIATE LABWORK INTERMEDIATE LAB WORK LABWORK INTERMEDIATE LABWORK RECURRENT FALLS, ALZHEIMER'S INTERMEDIATE LAB WORK INTERMEDIATE LAB WORK INTERMEDIATE LAB WORK INTERMEDIATE LAB WORK LABWORK NECK BACK PAIN INTERMEDIATE LABWORK INTERMEDIATE LAB WORK INTERMEDIATE LAB WORK INTERMEDIATE LAB WORK freq falls LABWORK HEMORRHOIDS LABWORK HEMORRHOIDECTOMY HEMORRHOIDECTOMY Reason for Visit Myalgia Abnormality of gait and mobility Alzheimer's dementia Essential tremor Low back pain Lumbar radiculopathy Bleeding hemorrhoids Chief Complaint INTERMEDIATE LAB WOR K INTERMEDIATE LAB WORK LABWORK NECK BACK PAIN INTERMEDIATE LABWORK INTERMEDIATE LAB WORK INTERMEDIATE LAB WORK INTERMEDIATE LAB WORK freq falls LABWORK HEMORRHOIDS LABWORK HEMORRHOIDECTOMY HEMORRHOIDECTOMY INTERMEDIATE LAB WORK LABWORK HEMORRHOIDECTOMY 09/14 LABWORK S/P HEMORRHOIDECTOMY 4 M FU Reason for Visit Bleeding hemorrhoids Bleeding hemorrhoids Bleeding hemorrhoids Hyperammonemia Thoracic compression fracture Abnormality of gait and mobility Alzheimer's dementia Essential tremor Low back pain Lumbar radiculopathy Chief Complaint INTERMEDIATE LAB WOR K LABWORK NECK BACK PAIN INTERMEDIATE LABWORK INTERMEDIATE LAB WORK INTERMEDIATE LAB WORK INTERMEDIATE LAB WORK freq falls LABWORK HEMORRHOIDS LABWORK HEMORRHOIDECTOMY HEMORRHOIDECTOMY INTERMEDIATE LAB WORK LABWORK HEMORRHOIDECTOMY 09/14 LABWORK S/P HEMORRHOIDECTOMY 4 M FU TRIGGER POINT INJ eorder Reason for Visit Bleeding hemorrhoids Bleeding hemorrhoids Bleeding hemorrhoids Hyperammonemia Thoracic compression fracture Abnormality of gait and mobility Alzheimer's dementia Essential tremor Low back pain Lumbar radiculopathy Myalgia Rib pain on right side Low back pain Chief Complaint INTERMEDIATE LAB WOR K INTERMEDIATE LAB WORK freq falls LABWORK HEMORRHOIDS LABWORK HEMORRHOIDECTOMY HEMORRHOIDECTOMY INTERMEDIATE LAB WORK LABWORK HEMORRHOIDECTOMY 09/14 LABWORK S/P [...] Chief Complaint LABWORK HEMORRHOIDS LABWORK HEMORRHOIDECTOMY HEMORRHOIDECTOMY INTERMEDIATE LAB WORK LABWORK HEMORRHOIDECTOMY 09/14 LABWORK S/P HEMORRHOIDECTOMY 4 M FU LABWORK TRIGGER POINT INJ eorder THORASIC Room 3 fall INTERMEDIATE LABWORK Reason for Visit Bleeding hemorrhoids Bleeding hemorrhoids Bleeding hemorrhoids Hyperammonemia Thoracic compression fracture Abnormality of gait and mobility Alzheimer's dementia Essential tremor Low back pain Lumbar radiculopathy Myalgia Rib pain on right side Low back pain Rib pain on right side Thoracic compression fracture Chief Complaint HEMORRHOIDS LABWORK HEMORRHOIDECTOMY HEMORRHOIDECTOMY INTERMEDIATE LAB WORK LABWORK HEMORRHOIDECTOMY 09/14 LABWORK S/P HEMORRHOIDECTOMY 4 M FU LABWORK TRIGGER POINT INJ eorder THORASIC Room 3 fall INTERMEDIATE LABWORK INTERMEDIATE LAB WORK Reason for Visit Bleeding hemorrhoids Bleeding hemorrhoids Bleeding hemorrhoids Hyperammonemia Thoracic compression fracture Abnormality of gait and mobility Alzheimer's dementia Essential tremor Low back pain Lumbar radiculopathy Myalgia Rib pain on right side Low back pain Rib pain on right side Thoracic compression fracture Chief Complaint 4 M FU LABWORK TRIGGER POINT INJ eorder THORASIC Room 3 fall INTERMEDIATE LABWORK INTERMEDIATE LAB WORK INTERMEDIATE LAB WORK INTERMEDIATE LABWORK Reason for Visit Hyperammonemia Thoracic compression fracture Abnormality of gait and mobility Alzheimer's dementia Essential tremor Low back pain Lumbar radiculopathy Myalgia Rib pain on right side Low back pain Rib pain on right side Thoracic compression fracture Chief Complaint 4 M FU EORDER INTERMEDIATE LAB WORK THORACIC SPINE room 4 falls Reason for Visit Myalgia Right shoulder pain Lumbar radiculopathy Acute bilateral low back pain without sciatica Calcific tendonitis of left shoulder Chief Complaint 4 M FU EORDER INTERMEDIATE LAB WORK THORACIC SPINE room 4 LABWORK falls Reason for Visit Myalgia Right shoulder pain Lumbar radiculopathy Acute bilateral low back pain without sciatica Calcific tendonitis of left shoulder Chief Complaint 4 M FU EORDER INTERMEDIATE LAB WORK THORACIC SPINE room 4 LABWORK falls NEW ONSET A-FIB, TACHYCARDIA Reason for Visit Myalgia Right shoulder pain Lumbar radiculopathy Acute bilateral low back pain without sciatica Calcific tendonitis of left shoulder Chief Complaint INTERMEDIATE LAB WOR K THORACIC SPINE room 4 LABWORK falls LABWORK NEW ONSET A-FIB, TACHYCARDIA Trigger point injections Reason for Visit Acute bilateral low back pain without sciatica Calcific tendonitis of left shoulder Dementia Folate deficiency Hyperammonemia Myalgia Right shoulder pain Essential tremor Low back pain Chief Complaint INTERMEDIATE LAB WOR K THORACIC SPINE room 4 LABWORK falls LABWORK NEW ONSET A-FIB, TACHYCARDIA Trigger point injections RIGHT SHOULDER INTERMEDIATE LAB WORK INTERMEDIATE LAB WORK Reason for Visit Acute bilateral low back pain without sciatica Calcific tendonitis of left shoulder Dementia Folate deficiency Hyperammonemia Myalgia Right shoulder pain Essential tremor Low back pain Left shoulder pain Chief Complaint 4 M FU LABWORK TRIGGER POINT INJ eorder THORASIC Room 3 fall INTERMEDIATE LABWORK INTERMEDIATE LAB WORK INTERMEDIATE LAB WORK INTERMEDIATE LABWORK 4 M FU EORDER Reason for [...] 1:44pm LABWORK June 25, 2024 5:00 am INTERMEDIATE LAB WORK July 12, 2024 6 :20am [...] 1:44pm LABWORK June 25, 2024 5:00 am INTERMEDIATE LAB WORK July 12, 2024 6 :20am TRIGGER POINT INJECTION August 06, 2024 1 :52pm WORSENING GAIT IMBALANCE; MULTIPLE FALLS August 22, 2024 7:59am Chief Complaint Admit Date LABWORK June 25, 2024 5:00 am INTERMEDIATE LAB WORK July 12, 2024 6 :20am TRIGGER POINT INJECTION August 06, 2024 1 :52pm INTERMEDIATE LAB WORK August 15, 2024 5:0 0am WORSENING GAIT IMBALANCE; MULTIPLE FALLS August 22, 2024 7:59am LUMBAR XRAY- FALL September 03, 2024 3:48 pm Reason for Visit Admit Date Dementia August 06, 2024 1:52p m Multiple falls August 06, 2024 1:52p m Myalgia August 06, 2024 1:52p m Abnormality of gait and mobility July 1:52pm Low back pain August 06, 2024 1:52p m Chief Complaint Admit Date INTERMEDIATE LAB WORK July 12, 2024 6 :20am TRIGGER POINT INJECTION August 06, 2024 1 :52pm INTERMEDIATE LAB WORK August 15, 2024 5:0 0am WORSENING GAIT IMBALANCE; MULTIPLE FALLS August 22, 2024 7:59am INTERMEDIATE LAB WORK August 27, 2024 5:0 0am LUMBAR XRAY- FALL September 03, 2024 3:48 pm 6 MONTHS/ TRIGGER POINT INJECTION November 05, 2024 2:30pm Chief Complaint Admit Date WORSENING GAIT IMBALANCE; MULTIPLE FALLS August 22, 2024 7:59am INTERMEDIATE LAB WORK August 27, 2024 5:0 0am LUMBAR XRAY- FALL September 03, 2024 3:48 pm INTERMEDIATE LAB WORK October 25, 2024 4 :00am 6 MONTHS/ TRIGGER POINT INJECTION November 05, 2024 2:30pm EVAL FOR COMPRESSION FX & SPINAL STENOSI S November 21, 2024 4:06pm Reason for Visit Admit Date Dementia November 05, 2024 2: 30pm Myalgia November 05, 2024 2: 30pm Essential tremor November 05, 2024 2: 30pm Low back pain November 05, 2024 2: 30pm Folate deficiency November 05, 2024 2: 30pm Medications Administered Section Active Administered Medications - up to 3 most recent administrations Medication Order MAR Action Action Date Dose Rate Site PHENYLephrine 2.5 % 1 Drop (AK-DILATE, JANUSZ-SYNEPHRINE) 1 Drop, BOTH EYES, DIRECTED, Starting on Tue12/29/22 at 1300, Until Tue12/30/22 at 0059, Administer for dilation PROTECT FROM [...] section and content) DATE CREATED AUTHOR 10/28/2018 [facility] DATE CREATED AUTHOR AUTHOR'S ORGANIZ ATION 05/04/2022 [facility] DATE CREATED AUTHOR AUTHOR'S ORGANIZ ATION 01/07/2023 [facility] DATE CREATED AUTHOR AUTHOR'S ORGANIZ ATION 12/23/[address] [facility] Reason for Visit (unrecogniz ed section [...] Active Start: August 06, 2024 Dr. Kendra Barn MD Referring Provider Active Start: August 06, [...] DO Primary Care Provider Active Dr. Claudia YDSON MD Attending Provider Active Team Status: Inactive Member Role Status Dates Dr. Claudia Anderson MD Primary Care Provider Active Dr. Claudia Anderson MD Attending Provider Active Team Status: Inactive Member Role Status Dates Dr. Claudia Anderson MD Primary Care Provider Active Dr. Oniel Valente , DO Attending Provider, Emergency Provider Active Team [...] MD Primary Care Provider Active Dr. Willy Mcekon MD Attending Provider, Referr ing Provider Active Team Status: Inactive Member Role Status Dates Dr. Addi Tatum DO Referring Provider Active Dr. Medardo Mayo MD Attending Provider Active Dr. Claudia Anderson MD Primary Care Provider Active Team Status: Inactive Member Role Status Dates Dr. Claudia Anderson MD Primary Care Provider, Referring Provider Active Dr. Medarod Mayo MD Attending Provider Active Team Status: [...] Dr. Shelton Conway MD Attending Provider Active Residential Sales Associate Relationship Specialty Start Date End Date Claudia [...] Rader MD Attending Provider Active Team Status: Active Member Role/Relationship Status Dates Dr. Claudia Anderson MD Primary Care Provider Active Team Status: Inactive Member Role/Relationship Status Dates Dr. Claudia Anderson MD Primary Care Provider Active Start: July 12, 2024 End: July 12, 2024 Dr. True DYSON MD Attending Provider Active Start: July 12, 2024 End: July 12, 2024 Team Status: Inactive Member Role/Relationship Status Dates Dr. Claudia Anderson MD Primary Care Provider Active Start: August 06, 2024 End: August 06, 2024 Dr. Kendra Bran MD Attending Provider Active Start: August 06, 2024 End: August 06, 2024 Dr. Kendra Bran MD Referring Provider Active Start: August 06, 2024 End: August 06, 2024 Team Status: Inactive Member Role/Relationship Status Dates Dr. Claudia Anderson MD Primary Care Provider Active Start: August 06, 2024 End: August 06, 2024 Dr. Medardo Mayo MD Attending Provider Active Start: August 06, 2024 End: August 06, 2024 Dr. Medardo Mayo MD Referring Provider Active Start: August 06, 2024 End: August 06, 2024 Team Status: Active Member Role/Relationship Status Dates Dr. Claudia Anderson MD Primary Care Provider Active Start: August 15, 2024 Dr. True DYSON MD Attending Provider Active Start: August 15, 2024 Team Status: Inactive Member Role/Relationship Status Dates Dr. Claudia Anderson MD Primary Care Provider Active Start: August 22, 2024 End: August 22, 2024 Dr. Medardo Mayo MD Attending Provider Active Start: August 22, 2024 End: August 22, 2024 Dr. Medardo Mayo MD Referring Provider Active Start: August 22, 2024 End: August 22, 2024 Team Status: Active Member Role/Relationship Status Dates Dr. Claudia Anderson MD Primary Care Provider Active Start: August 27, 2024 Dr. Claudia DYSON MD Attending Provider Active Start: August 27, 2024 Team Status: Inactive Member Role/Relationship Status Dates Dr. Claudia Anderson MD Primary Care Provider Active Start: September 03, 2024 End: September 03, 2024 Dr. Kendra Bran MD Attending Provider Active Start: September 03, 2024 End: September 03, 2024 Dr. Kendra Bran MD Referring Provider Active Start: September 03, 2024 End: September 03, 2024 Team Status: Active Member Role/Relationship Status Dates Dr. Claudia Anderson MD Primary Care Provider Active Start: October 25, 2024 Dr. True DYSON MD Attending Provider Active Start: October 25, 2024 Team Status: Inactive Member Role/Relationship Status Dates Dr. Claudia Anderson MD Primary Care Provider Active Start: November 05, 2024 End: November 05, 2024 Dr. Claudia Anderson MD Referring Provider Active Start: November 05, 2024 End: November 05, 2024 Dr. Medardo Mayo MD Attending Provider Active Start: November 05, 2024 End: November 05, 2024 Team Status: Active Member Role/Relationship Status Dates Dr. True Holguin DO Primary care physician Active Team Status: Inactive Member Role/Relationship Status Dates Dr. Claudia Anderson MD Primary care physician Active Start: August 22, 2024 End: August 22, 2024 Dr. Medardo Mayo MD Attending physician Active Start: August 22, 2024 End: August 22, 2024 Dr. Medardo Mayo MD Referring Provider Active Start: August 22, 2024 End: August 22, 2024 Team Status: Active Member Role/Relationship Status Dates Dr. Claudia Anderson MD Primary care physician Active Start: August 27, 2024 Dr. Claudia DYSON MD Attending physician Active Start: August 27, 2024 Team Status: Inactive Member Role/Relationship Status Dates Dr. Claudia Anderson MD Primary care physician Active Start: September 03, 2024 End: September 03, 2024 Dr. Kendra Bran MD Attending physician Active Start: September 03, 2024 End: September 03, 2024 Dr. Kendra Bran MD Referring Provider Active Start: September 03, 2024 End: September 03, 2024 Team Status: Active Member Role/Relationship Status Dates Dr. Claudia Anderson MD Primary care physician Active Start: October 25, 2024 Dr. True DYSON MD Attending physician Active Start: October 25, 2024 Dr. True DYSON MD Referring Provider Active Start: October 25, 2024 Team Status: Inactive Member Role/Relationship Status Dates Dr. Claudia Anderson MD Primary care physician Active Start: November 05, 2024 End: November 05, 2024 Dr. Medardo Mayo MD Attending physician Active Start: November 05, 2024 End: November 05, 2024 Dr. Medardo Mayo MD Referring Provider Active Start: November 05, 2024 End: November 05, 2024 Team Status: Inactive Member Role/Relationship Status Dates Dr. Kendra Bran MD Attending physician Active Start: November 21, 2024 End: November 21, 2024 Dr. Kendra Bran MD Referring Provider Active Start: November 21, 2024 End: November 21, 2024 Monica Taylor Nurse Practitioner Active Start: Sruthi deleon 2024 End: November 21, 2024 Dr. True Holguin DO Primary care physician Active Start: November 21, 2024 End: November 21, 2024 Source Comments (unrecognize d section and content) In the event this informatio n is protected by the Federal Confidentiality of Alcohol and Drug Abuse Patient Records regulations: The Federal rules restrict any use of the information to criminally investigate or prosecute any alcohol or drug abuse patient.[facility] FOR RECORDS PERTAINING TO PATIENTS WHO ARE [...] BE BASED ON THE PRIMARY CLINICAL RECORDS. [facility] [facility]. provides no warranty or guarantee of the accuracy or completeness of information in this document.
[2025-01-17 09:30] LABS: Hematocrit 35.6 % (37-47); Hemoglobin 11.3 g/dL (12.0-15.0); Mean Corp Hgb Conc 31.7 g/dL (32-36); Mean Corpuscular Volume 102.3 fL (81-99); Mean Platelet Vol. 10.3 fl (6.2-12.0); Platelet Count 203 K/mm3 (150-450); RBC Distribution Width CV 12.0 % (11.6-14.6); RBC Distribution Width SD 44.9 fl (35.1-43.9); Red Blood Count 3.48 M/mm3 (4.2-5.4); White Blood Count 5.3 K/mm3 (4.4-11.0)
[2025-01-17 09:58] LABS: Vitamin D,25 Hydroxy 63.0 ng/mL (30-100)
[2025-01-17 09:59] LABS: AST(SGOT) 17 U/L (<=31); Alanine Aminotransfer ALT/SGPT < 5 U/L (<=34); Albumin, Serum 3.3 g/dL (3.4-4.8); Alkaline Phosphatase 67 U/L (35-104); Anion Gap 6 (5-15); BUN 13 mg/dL (4-19); BUN/Creat Ratio 14.4 RATIO (10-20); Calcium,Total 8.4 mg/dL (7.6-11.0); Carbon Dioxide 29.2 mmol/L (21.0-32.0); Chloride 110 mmol/L (98-108); Globulin 1.8 g/dL (2.2-4.2); Glucose 85 mg/dL (70-99); Potassium 4.2 mmol/L (3.3-5.1)
== END ==
LOC: OLS.SW 05:00
PROVIDERS: Visit Provider Family Medicine
DX: E03.9 Hypothyroidism, unspecified (principal); E55.9 Vitamin D deficiency, unspecified
CPT/HCPCS: 36415; 80053; 82306; 84443; 85027